=== PATIENT | female | born 1950 | race Caucasian/White ===

== ENCOUNTER 2021-03-25 07:12 | Outpatient (REF) | payer MEDICARE, MEDICAID, SELFPAY ==
--- NOTE | ~2021-03-25 | XR_ITS ---
EXAMINATION: XR shoulder LT min 2V, XR shoulder RT min 2V CLINICAL INFORMATION: Pain COMPARISON: None. TECHNIQUE: 4 views of each shoulder FINDINGS: No acute fracture or dislocation. There are small bilateral acromioclavicular marginal osteophytes, slightly larger on the right tiny marginal osteophytes present along the anatomic neck of the right humeral head. The glenoid is unremarkable. No suspicious osseous lesions. XR/XR shoulder RT min 2V IMPRESSION: No acute findings. Mild bilateral acromioclavicular arthrosis.
--- NOTE | ~2021-03-25 | XR_ITS ---
EXAMINATION: XR shoulder LT min 2V, XR shoulder RT min 2V CLINICAL INFORMATION: Pain COMPARISON: None. TECHNIQUE: 4 views of each shoulder FINDINGS: No acute fracture or dislocation. There are small bilateral acromioclavicular marginal osteophytes, slightly larger on the right tiny marginal osteophytes present along the anatomic neck of the right humeral head. The glenoid is unremarkable. No suspicious osseous lesions. XR/XR shoulder LT min 2V IMPRESSION: No acute findings. Mild bilateral acromioclavicular arthrosis.
[2021-03-25 07:20] LABS: MANUAL DIFF FLAG NO
[2021-03-25 07:44] LABS: Basophils Percent Auto 0.6 % (0-2); Hematocrit 41.1 % (37.0-47.0); Hemoglobin 14.3 g/dl (12.0-16.0); Imm Gran Abs Auto 0.01 X10*3/uL (0.00-0.03); Imm Gran Pct Auto 0.2 % (0.0-0.4); Lymphocytes Absolute Auto 1.2 X10*3/uL (1.2-4.9); Lymphocytes Percent Auto 22.7 % (20-40); Mean Corpuscular HGB Conc 34.8 g/dl (31.0-35.0); Mean Corpuscular Hemoglobin 30.6 pg (27.0-33.0); Mean Platelet Volume 8.2 fL (9.4-12.3); Monocytes Absolute Auto 0.5 X10*3/uL (0.1-1.2); Monocytes Percent Auto 9.9 % (2-11); Neutrophils Absolute Auto 3.6 x10*3/uL (2.0-8.3); Neutrophils Percent Auto 66.6 % (45-73); Platelet Count 398 X10*3/uL (160-400); Red Blood Count 4.67 X10*6/uL (4.20-5.50); Red Cell Distribution Width 12.9 % (11.0-16.0); White Blood Count 5.3 X10*3/uL (4.8-10.8)
[2021-03-25 08:00] LABS: Alanine Aminotransferase 17 U/L (0-31); Albumin Level 4.4 g/dL (3.5-5.0); Alkaline Phosphatase 58 U/L (39-117); Anion Gap 14 (12-20); Aspartate Amino Transferase 24 U/L (5-31); Bilirubin Total 0.3 mg/dL (0.0-1.0); Blood Urea Nitrogen 18 mg/dL (9-16); C Reactive Protein 0.24 mg/dL (< or = 0.50); Calcium 10.5 mg/dL (8.4-10.2); Carbon Dioxide 28 mmol/L (22-29); Chloride 98 mmol/L (96-108); Cholesterol 219 mg/dL; Estimated Glomerular Filt Rate > 60; Glucose Fasting 105 mg/dL (60-99); HDL Cholesterol 73 mg/dL; LDL Cholesterol Calculated 130 mg/dl; Potassium 4.6 mmol/L (3.3-5.1); Sodium 135 mmol/L (135-145); Total Protein 7.5 g/dL (6.5-8.0); Triglycerides 80 mg/dL
[2021-03-25 08:23] LABS: TSH reflex Free T4 1.19 uIU/mL (0.32-4.0); Vitamin D 25-OH Total 49.3 ng/mL (>30)
[2021-03-25 09:18] LABS: Erythrocyte Sedimentation Rate 14 MM/HR (0-20)
[2021-03-25 10:03] LABS: Appearance Urine HAZY; Color Urine YELLOW; Glucose Urine UA NEG (NEG); Leukocyte Esterase Urine NEG (NEG); Nitrite Urine NEG (NEG); Urine Blood NEG (NEG); Urine Ketones NEG (NEG); Urine Protein NEG (NEG-TRACE)
[2021-03-27 05:18] LABS: Folate 17.5 ng/mL (> or = 4.0); Vitamin B12 909 pg/mL (200-900)
== END 2021-03-25 07:13 | disposition home or self-care (01) ==
LOC: HO.LAB 07:12
PROVIDERS: PCP Internal Medicine; Visit Provider Internal Medicine
DX: Z00.00 Encounter for general adult medical examination without abnormal findings (principal); M25.511 Pain in right shoulder; M25.512 Pain in left shoulder; E55.9 Vitamin D deficiency, unspecified; E53.8 Deficiency of other specified B group vitamins; R20.2 Paresthesia of skin; I10 Essential (primary) hypertension; E78.00 Pure hypercholesterolemia, unspecified; M79.10 Myalgia, unspecified site
CPT/HCPCS: 36415; 73030; 80053; 80061; 81003; 82306; 82550; 82607; 82746; 84443; 85025; 85652; 86140

== ENCOUNTER 2021-04-19 07:47 | Outpatient (REF) | payer MEDICARE, MEDICAID, SELFPAY ==
--- NOTE | ~2021-04-19 | MM_ITS ---
EXAMINATION: BONE DENSITOMETRY CLINICAL INDICATION: Age-related osteoporosis without current pathological fracture. COMPARISON: Previous BD dated 05/16/2018 and baseline BD dated 07/25/2009. TECHNIQUE: Using a [employer] DXA System (software version: 13.1) manufactured by [employer], dual-energy x-ray absorptiometry was performed of the lumbar spine and left hip. The images are of good technical quality. Summary results are attached. FINDINGS: AP SPINE L1-L3 (excluding L4): The data of L1-L4 has been changed to exclude the L4 vertebral body, because degenerative changes at this level may cause overestimation of lumbar spine density. Current: BMD 1.092 g/cm2, Z-score 1.6, T-score -0.7, normal, 0.1% decrease from previous, 4.8% increase from baseline (<5% change is not significant). Prior: BMD 1.093 g/cm2. Baseline: BMD 1.042 g/cm2. LEFT FEMUR, NECK: Current: BMD 0.699 g/cm2, Z-score -0.3, T-score -2.4, osteopenia. Prior: BMD 0.723 g/cm2. Baseline: BMD 0.746 g/cm2. LEFT FEMUR, TOTAL: Current: BMD 0.713 g/cm2, Z-score -0.4, T-score -2.3, osteopenia, 3.2% increase from previous, 7.4% decrease from baseline (<5% change is not significant). Prior: BMD 0.691 g/cm2. Baseline: BMD 0.770 g/cm2. IDENTIFIED RISK FACTORS: Low body weight, tobacco use (current smoker), history of fracture (adult). Early menopause, secondary osteoporosis. HISTORY OF FRACTURE: Ribs. MEDICATIONS: Calcium or multivitamin. MM/XR DEXA axial skeleton IMPRESSION: 1. DIAGNOSIS: Osteopenia based on the lowest T-score value of -2.4 in the femoral neck applying World Health Organization criteria. 2. 10-YEAR FRACTURE RISK PREDICTION, FRAX: Major osteoporotic fracture (clinical spine, forearm, hip or shoulder) 20.5%. Hip fracture 8.6%. 3. Treatment Recommendations: NOF guidelines recommend consideration for treatment in postmenopausal women and men age 50 and older presenting with the following: -A hip or vertebral (clinical or morphometric) fracture. -T-score less than or equal to -2.5 at the femoral neck or spine after appropriate evaluation to exclude secondary causes. -Low bone mass at the hip or spine and a 10-year fracture probability by FRAX of greater than or equal to 3% for hip fracture or greater than or equal to 20% for major osteoporotic fracture based on the [place] adapted WHO algorithm. 4. Other Recommendations: All treatment decisions require clinical judgment and consideration of individual patient factors, including patient preferences, comorbidities, previous drug use, risk factors not captured in the FRAX model (e.g. frailty, falls, vitamin D deficiency, increased bone turnover, interval significant decline in bone density) and possible under or overestimation of fracture risk by FRAX. Additional medical evaluation for secondary cause of low bone mineral density may be appropriate. FUTURE SCAN RECOMMENDATION: People with diagnosed cases of osteoporosis or at high risk for fracture should have regular bone mineral density tests. For patients eligible for Medicare, routine testing is allowed once every 2 years. The testing frequency can be increased to one year for patients who have rapidly progressing disease, those who are receiving or discontinuing medical therapy to restore bone mass, or have additional risk factors.
== END 2021-04-19 07:48 | disposition home or self-care (01) ==
LOC: HO.MAMMO 07:47
PROVIDERS: PCP Internal Medicine; Visit Provider Physician Assistant
DX: M81.0 Age-related osteoporosis without current pathological fracture (principal); E28.319 Asymptomatic premature menopause; F17.210 Nicotine dependence, cigarettes, uncomplicated
CPT/HCPCS: 77080

== ENCOUNTER 2021-06-23 07:30 | Outpatient (REF) | payer MEDICARE, MEDICAID, SELFPAY ==
--- NOTE | ~2021-06-23 | MM_ITS ---
EXAMINATION: MM SCREENING DIGITAL BREAST TOMOSYNTHESIS, BILATERAL CLINICAL INFORMATION: Screening. Asymptomatic. The lifetime risk of breast cancer based on the Tyrer-Cuzick Model is 8%. COMPARISON: Mammography: 02/28/2018, 02/19/2017, 02/09/2017, 01/27/2016 TECHNIQUE: Digital breast tomosynthesis is performed in both the craniocaudal and mediolateral oblique views along with computer-aided detection (CAD). Synthesized 2D images are generated from the tomosynthesis. Additional right CC view is provided. FINDINGS: There are scattered areas of fibroglandular density (ACR BI-RADS breast composition Category b). There are no significant masses, abnormal calcifications, or other abnormalities. Parenchymal pattern is similar to prior studies. There is no developing density or architectural abnormality. The axilla and skin contours are unremarkable. No significant changes. MM/MM tomosynthesis screening BI IMPRESSION: No mammographic evidence of malignancy. ASSESSMENT: BI-RADS 1: Negative RECOMMENDATION: Routine annual mammography screening. This patient's information was entered into a reminder system with a target due date for their next mammogram.
== END 2021-06-23 07:31 | disposition home or self-care (01) ==
LOC: HO.MAMMO 07:30
PROVIDERS: PCP Internal Medicine; Visit Provider Physician Assistant
DX: Z12.31 Encounter for screening mammogram for malignant neoplasm of breast (principal)
CPT/HCPCS: 77063; 77067

== ENCOUNTER 2021-10-23 12:23 | Outpatient (REF) | payer MEDICARE, MEDICAID, SELFPAY ==
[2021-10-23 12:48] VITALS: BP 143/85; PULSE 75; RESP 16; TEMP 36.1; O2SAT 100
[2021-10-23 12:49] VITALS: BMI 16.2
== END 2021-10-23 12:24 | disposition home or self-care (01) ==
LOC: HO.MS 12:23
PROVIDERS: PCP Internal Medicine; Visit Provider Ophthalmology
PROC: (CPT 66821; principal; 2021-10-23 14:20)
DX: H26.491 Other secondary cataract, right eye (principal); H40.013 Open angle with borderline findings, low risk, bilateral; Z96.1 Presence of intraocular lens; M81.0 Age-related osteoporosis without current pathological fracture; I10 Essential (primary) hypertension; Z79.899 Other long term (current) drug therapy; F17.210 Nicotine dependence, cigarettes, uncomplicated
CPT/HCPCS: 66821

== ENCOUNTER 2022-01-01 08:56 | Outpatient (REF) | payer MEDICARE, MEDICAID, SELFPAY ==
[2022-01-01 09:25] VITALS: BP 136/82; PULSE 78; RESP 16; TEMP 36.7; O2SAT 98
[2022-01-01 09:49] VITALS: BMI 19.0
== END 2022-01-01 08:57 | disposition home or self-care (01) ==
LOC: HO.MS 08:56
PROVIDERS: PCP Internal Medicine; Visit Provider Ophthalmology
PROC: (CPT 66821; principal; 2022-01-01 12:40)
DX: H26.491 Other secondary cataract, right eye (principal); Z96.1 Presence of intraocular lens; M81.0 Age-related osteoporosis without current pathological fracture; Z79.899 Other long term (current) drug therapy; F17.210 Nicotine dependence, cigarettes, uncomplicated
CPT/HCPCS: 66821

== ENCOUNTER 2022-01-10 11:45 | Outpatient (REF) | payer MEDICARE, MEDICAID, SELFPAY ==
--- NOTE | ~2022-01-10 | XR_ITS ---
EXAMINATION: XR CHEST CLINICAL INFORMATION: Nicotine dependent. COMPARISON: Multiple priors with the last chest x-ray of 05/28/2019. TECHNIQUE: 2 views of the chest were obtained. FINDINGS: The cardiomediastinal silhouette is stable and normal. No abnormal tracheal deviation. The lungs are hyperinflated with increased AP diameter of the chest and flattening of the diaphragms. No focal consolidation, changes of congestion or significant pleural effusions are noted. Osteopenia. Thoracic kyphosis. Moderate to severe compression deformity of L2 is better seen on frontal view and is a stable finding that the last chest x-ray. Chronic rib deformities are redemonstrated. No pneumothorax. Visualized upper abdomen is unremarkable. XR/XR chest 2V IMPRESSION: Hyperinflated lungs reflecting underlying changes of chronic obstructive pulmonary disease. No acute pulmonary process.
[2022-01-10 12:18] LABS: MANUAL DIFF FLAG NO
[2022-01-10 12:40] LABS: Basophils Percent Auto 0.5 % (0-2); Hematocrit 41.2 % (37.0-47.0); Hemoglobin 14.2 g/dl (12.0-16.0); Imm Gran Abs Auto 0.02 X10*3/uL (0.00-0.03); Imm Gran Pct Auto 0.3 % (0.0-0.4); Lymphocytes Absolute Auto 1.5 X10*3/uL (1.2-4.9); Lymphocytes Percent Auto 26.2 % (20-40); Mean Corpuscular HGB Conc 34.5 g/dl (31.0-35.0); Mean Corpuscular Volume 86.9 fL (80.0-98.0); Mean Platelet Volume 8.3 fL (9.4-12.3); Monocytes Absolute Auto 0.5 X10*3/uL (0.1-1.2); Monocytes Percent Auto 9.2 % (2-11); Neutrophils Absolute Auto 3.7 x10*3/uL (2.0-8.3); Neutrophils Percent Auto 63.8 % (45-73); Platelet Count 352 X10*3/uL (160-400); Red Blood Count 4.74 X10*6/uL (4.20-5.50); White Blood Count 5.8 X10*3/uL (4.8-10.8)
[2022-01-10 12:48] LABS: Appearance Urine Clear; Color Urine Yellow; Glucose Urine UA Negative (Negative); Leukocyte Esterase Urine Trace (Negative); Nitrite Urine Negative (Negative); Urine Blood Negative (Negative); Urine Ketones Negative (Negative); Urine Protein Negative (Neg-Trace)
[2022-01-10 12:53] LABS: Bacteria Urine None Seen (None Seen); Hyaline Casts Urine 0-2 /LPF (0-2); RBC Urine 0-2 /HPF (0-2); Squamous Epithelial Cell Urine 0-2 /HPF (0-2); WBC Urine 0-5 /HPF (0-5)
[2022-01-10 13:11] LABS: Alanine Aminotransferase 17 U/L (0-31); Albumin Level 4.3 g/dL (3.5-5.0); Alkaline Phosphatase 47 U/L (39-117); Anion Gap 14 (12-20); Aspartate Amino Transferase 23 U/L (5-31); Bilirubin Total 0.2 mg/dL (0.0-1.0); Blood Urea Nitrogen 21 mg/dL (9-16); C Reactive Protein 0.12 mg/dL (< or = 0.50); Calcium 10.1 mg/dL (8.4-10.2); Carbon Dioxide 27 mmol/L (22-29); Chloride 98 mmol/L (96-108); Estimated Glomerular Filt Rate > 60; Glucose Random 95 mg/dL (60-115); Magnesium 1.8 mg/dL (1.6-2.6); Potassium 4.8 mmol/L (3.3-5.1); Sodium 134 mmol/L (135-145); Total Protein 7.2 g/dL (6.5-8.0)
[2022-01-10 13:21] LABS: Erythrocyte Sedimentation Rate 12 MM/HR (0-20)
[2022-01-10 13:33] LABS: TSH reflex Free T4 0.76 uIU/mL (0.32-4.0); Vitamin D 25-OH Total 56.6 ng/mL (>30)
[2022-01-10 14:23] LABS: Folate > 20.0 ng/mL (> or = 4.0); Vitamin B12 795 pg/mL (200-900)
== END 2022-01-10 11:46 | disposition home or self-care (01) ==
LOC: HO.LAB 11:45
PROVIDERS: PCP Internal Medicine; Visit Provider Internal Medicine
DX: I10 Essential (primary) hypertension (principal); M79.604 Pain in right leg; M79.605 Pain in left leg; R20.2 Paresthesia of skin; E53.8 Deficiency of other specified B group vitamins; E55.9 Vitamin D deficiency, unspecified; J44.9 Chronic obstructive pulmonary disease, unspecified; F17.200 Nicotine dependence, unspecified, uncomplicated
CPT/HCPCS: 36415; 71046; 80053; 81001; 82306; 82607; 82746; 83735; 84443; 85025; 85652; 86140

== ENCOUNTER 2022-05-22 10:13 | Outpatient (REF) | payer MEDICARE, MEDICAID, SELFPAY ==
--- NOTE | ~2022-05-22 | XR_ITS ---
EXAMINATION: XR HAND, LEFT CLINICAL INFORMATION: Left finger pain. COMPARISON: None TECHNIQUE: PA, lateral, and oblique views of the left hand. 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 Adjacent, amorphous, subtle soft tissue calcification. The bones and soft tissues otherwise appear unremarkable. No fracture appreciated. Alignment is anatomic. No erosion identified. XR/XR hand LT min 3V IMPRESSION: Degenerative changes of the first carpal-metacarpal joint.
--- NOTE | ~2022-05-22 | XR_ITS ---
EXAMINATION: XR LUMBOSACRAL SPINE CLINICAL INFORMATION: Compression fracture of fourth lumbar vertebra. COMPARISON: None TECHNIQUE: Three views of the lumbosacral spine. XR/XR lumbar spine 2-3V FINDINGS/IMPRESSION: Suspect decreased bone mineral density. Suspect asymmetric lumbarization of the presumed S1 vertebral body. Mild to moderate compression deformity of L3, new compared with January 2016. Recommend clinical correlation. If further imaging to evaluate for acuity of compression is clinically desired, MRI including STIR sequences may be of use. Mild to moderate compression deformity of L5, unchanged compared with January 2016. Mild to moderate disc degenerative changes of the lumbar spine, worst at L5-S1. Moderate lower lumbar facet degenerative changes at L4-S1. Grade 1 anterolisthesis at L4-L5. Mild lumbar levocurvature. The paraspinal soft tissues appear unremarkable. Aortoiliac calcification.
== END 2022-05-22 10:14 | disposition home or self-care (01) ==
LOC: HO.XRAY 10:13
PROVIDERS: PCP Internal Medicine; Visit Provider Internal Medicine
DX: M54.50 Low back pain, unspecified (principal); S32.040D Wedge compression fracture of fourth lumbar vertebra, subsequent encounter for fracture with routine healing; M79.645 Pain in left finger(s)
CPT/HCPCS: 72100; 73130

== ENCOUNTER 2022-06-29 09:06 | Outpatient (REF) | payer MEDICARE, MEDICAID, SELFPAY ==
--- NOTE | ~2022-06-29 | MM_ITS ---
EXAMINATION: MM SCREENING DIGITAL BREAST TOMOSYNTHESIS, BILATERAL CLINICAL INFORMATION: Screening. Asymptomatic. The lifetime risk of breast cancer based on the Tyrer-Cuzick Model is 7%. COMPARISON: Multiple prior exams, most recent 06/23/2021. TECHNIQUE: Digital breast tomosynthesis is performed in both the craniocaudal and mediolateral oblique views along with computer-aided detection (CAD). Synthesized 2D images are generated from the tomosynthesis. FINDINGS: There are scattered areas of fibroglandular density (ACR BI-RADS breast composition Category b). There are no significant masses, abnormal calcifications, or other abnormalities. No architectural abnormality or developing density or significant change from prior studies. The technologist notes technically challenging exam. Exam tailored to patient body habitus. MM/MM tomosynthesis screening BI IMPRESSION: No mammographic evidence of malignancy. ASSESSMENT: BI-RADS 2: Benign RECOMMENDATION: Routine annual mammography screening. This patient's information was entered into a reminder system with a target due date for their next mammogram.
== END 2022-06-29 09:07 | disposition home or self-care (01) ==
LOC: HO.MAMMO 09:06
PROVIDERS: PCP Internal Medicine; Visit Provider Internal Medicine
DX: Z12.31 Encounter for screening mammogram for malignant neoplasm of breast (principal)
CPT/HCPCS: 77063; 77067

== ENCOUNTER 2023-01-23 08:23 | Outpatient (REF) | payer MEDICARE, MEDICAID, SELFPAY ==
[2023-01-23 08:46] LABS: MANUAL DIFF FLAG NO
[2023-01-23 10:17] LABS: Basophils Percent Auto 0.4 % (0-2); Hematocrit 39.9 % (37.0-47.0); Hemoglobin 13.6 g/dl (12.0-16.0); Lymphocytes Absolute Auto 1.1 X10*3/uL (1.2-4.9); Lymphocytes Percent Auto 25.3 % (20-40); Mean Corpuscular HGB Conc 34.1 g/dl (31.0-35.0); Mean Corpuscular Hemoglobin 30.2 pg (27.0-33.0); Mean Corpuscular Volume 88.5 fL (80.0-98.0); Mean Platelet Volume 8.6 fL (9.4-12.3); Monocytes Absolute Auto 0.4 X10*3/uL (0.1-1.2); Monocytes Percent Auto 9.2 % (2-11); Neutrophils Absolute Auto 2.9 x10*3/uL (2.0-8.3); Neutrophils Percent Auto 65.1 % (45-73); Platelet Count 364 X10*3/uL (160-400); Red Blood Count 4.51 X10*6/uL (4.20-5.50); White Blood Count 4.5 X10*3/uL (4.8-10.8)
[2023-01-23 10:36] LABS: Appearance Urine Clear; Color Urine Yellow; Glucose Urine UA Negative (Negative); Leukocyte Esterase Urine Trace (Negative); Nitrite Urine Negative (Negative); Specific Gravity - Urine 1.015 (1.005-1.025); UMIC TRIGGER UACC YES; Urine Blood Negative (Negative); Urine Ketones Negative (Negative); Urine Protein 30 (1+) mg/dL (Neg-Trace)
[2023-01-23 10:40] LABS: Bacteria Urine None Seen (None Seen); Hyaline Casts Urine 0-2 /LPF (0-2); RBC Urine 0-2 /HPF (0-2); WBC Urine 0-5 /HPF (0-5)
[2023-01-23 11:44] LABS: Alanine Aminotransferase 17 U/L (0-31); Albumin Level 4.1 g/dL (3.5-5.0); Alkaline Phosphatase 50 U/L (39-117); Anion Gap 13 (12-20); Aspartate Amino Transferase 26 U/L (5-31); Bilirubin Total 0.3 mg/dL (0.0-1.0); Blood Urea Nitrogen 21 mg/dL (9-16); Calcium 9.9 mg/dL (8.4-10.2); Carbon Dioxide 27 mmol/L (22-29); Chloride 98 mmol/L (96-108); Cholesterol 206 mg/dL (<200); Estimated Glomerular Filt Rate > 60; Glucose Fasting 92 mg/dL (60-99); HDL Cholesterol 67 mg/dL (>40); LDL Cholesterol Calculated 125 mg/dL (<100); Potassium 4.1 mmol/L (3.3-5.1); Sodium 134 mmol/L (135-145); Total Protein 7.3 g/dL (6.5-8.0); Triglycerides 72 mg/dL (<150)
[2023-01-23 11:50] LABS: TSH reflex Free T4 1.15 uIU/mL (0.32-4.0); Vitamin D 25-OH Total 61.5 ng/mL (>30)
== END 2023-01-23 08:24 | disposition home or self-care (01) ==
LOC: HO.LAB 08:23
PROVIDERS: PCP Internal Medicine; Visit Provider Internal Medicine
DX: I10 Essential (primary) hypertension (principal); E55.9 Vitamin D deficiency, unspecified; E78.00 Pure hypercholesterolemia, unspecified
CPT/HCPCS: 36415; 80053; 80061; 81001; 82306; 84443; 85025

== ENCOUNTER 2023-01-30 08:51 | Outpatient (AMB) | payer MEDICARE, MEDICAID, SELFPAY ==
[2023-01-30 08:52] VITALS: BP 130/80; PULSE 79; O2SAT 96; BMI 16.8
--- NOTE | 2023-01-30 08:52 | A.OFFPC_ITS ---
Vital Signs 01/30/23 08:52 Height 5 ft 8 in Weight 110 lb 4 oz BMI 16.8 BP 130/80 Blood Pressure Location Lt brachial Position Sitting Pulse 79 Pulse Source Pulse Oximeter Pulse Oximetry (%) 96 Oxygen Delivery Method Room Air Intake Visit Reasons: COPD, osteoporosis, hyperlipidemia Bagging Salvager Required: No Accompanied by: Self / Same As Patient Allergies No Known Allergies [No Known Allergies*] Allergy (Verified 01/30/23 09:13) Medication List - Last Reconciled 01/30/23 by Alan Chanel MD albuterol sulfate 90 mcg/actuation 2 puffs PO QID PRN aspirin (Doyle Chewable Low Dose Aspirin) 81 mg PO DAILY calcium carbonate (Calcium) 600 mg PO DAILY lisinopril 5 mg PO DAILY lorazepam 0.5 mg PO BID PRN 30 days naproxen 500 mg PO BID PRN Tobacco use date assessed: 01/30/23 Fall risk assessment: No Falls in past year Last assessed Fall Risk: 01/30/23 Dental Screening Dental Screen Date: 01/30/23 Did you have a dental visit in the last 12 months?: No Did you have a dental problem in the last 6 months where you did not have access to dental care?: No Was dental information given to patient?: No HPI COPD, osteoporosis, hyperlipidemia HPI Details Patient comes in today for her follow up visit States that she feels okay She denies any headaches or dizziness Denies any chest pains, no increased SOB No nausea/vomiting, no abdominal pain No change in bowel habits noted States that her lower back and lower legs (mostly in the ankles and feet) still bother her often and that she wakes up sometimes in the middle of the night due to the pain in her ankles and feet Notes increasing pain in her left wrist lately, especially since the weather started turning cooler Had her follow up labs done last week - to discuss her results [facility] Medical History Smoker Depression Anxiety Osteoporosis Urinary urgency Urinary incontinence Varicose veins of bilateral lower extremities with pain Peripheral polyneuropathy Pure hypercholesterolemia Anemia Compression fracture of L4 vertebra with routine healing Lumbar degenerative disc disease Benign essential hypertension COPD (chronic obstructive pulmonary disease) Surgical History History of cystoscopy History of bilateral cataract extraction Family History Father No problems noted. Mother Lung cancer Sister Down syndrome Maternal Grandfather Lung cancer Maternal Grandmother Lung cancer Social History Housing: House Alcohol intake: former Patient Tobacco Use Status: Current everyday Tobacco user Cigarette Packs Per Day: 1 Cigarettes Per Day: 20 e-Cigarette/Vaping Use: Never Used Second Hand Smoke Exposure: Yes service: No Current occupational status: retired Cognitive needs: No Hearing needs: Yes Vision needs: Yes Questionnaire PHQ-9 Over the last 2 weeks, how often have you been bothered by any of the following problems? 1. Little interest or pleasure in doing things: nearly every day 2. Feeling down, depressed, or hopeless: nearly every day 3. Trouble falling or staying asleep, or sleeping too much: nearly every day 4. Feeling tired or having little energy: nearly every day 5. Poor appetite or overeating: not at all 6. Feeling bad about yourself - or that you are a failure or have let yourself or your family down: not at all 7. Trouble concentrating on things, such as reading the newspaper or watching television: not at all 8. Moving or speaking so slowly that other people could have noticed. Or the opposite - being so fidgety or restless that you have been moving around a lot more than usual: not at all 9. Thoughts that you would be better off or of hurting yourself in some way: not at all Total score: 12 Depression Screening Interpretation: Positive Depression Screening Follow-up: Existing condition and In treatment 60474 - PHQ-9 Billing: Yes Source: Developed by Drs. Rios Hager, Marie Marr, Marcus Moser and colleagues, with an educational felipe from [employer]. Thrive Questionnaire Date Thrive assessed: 09/19/22 I am a: Patient What is your living situation today?: I have a steady place to live Within the past 12 months, did the food you bought not last and you didn't have the money to get more?: Never true Within the past 12 months, did you worry whether your food would run out before you got money to buy more?: Never true Do you have trouble paying for medicines?: No Do you have trouble getting transportation to medical appointments?: No Do you have trouble paying your heating and electricity bill?: No Do you have trouble taking care of your child, family member or friend?: No Do you have trouble with day-to-day activities such as bathing, preparing meals, shopping, managing finances, etc.?: No Are you currently unemployed and looking for a job?: No Are you interested in more education?: No Please select the resources that you would like help with: None Currently or been in a relationship where the following occur: no concerns repor oscar AUDIT C Alcohol Use Questionnaire (AUDIT-C) 1. How often do you have a drink containing alcohol?: Never 3. How often do you have six or more drinks on one occasion?: Never Total Score: 0 Score Reviewed/Action Taken: Yes BROOKE-7 AMB Questionnaire BROOKE-7 Date BROOKE - 7 assessed: 01/30/23 Feeling nervous, anxious, or on edge: 0 = Not at all Not being able to stop or control worryin = Not at all Worrying too much about different things: 0 = Not at all Trouble relaxin = Not at all Being so restless that it is hard to sit still: 0 = Not at all Becoming easily annoyed or irritable: 0 = Not at all Feeling afraid as if something awful might happen: 0 = Not at all Total BROOKE-7 score (0-4 normal; 5-9 mild; 10-14 moderate; 15-21 severe): 0 Source: Developed by Drs. Rios Hager, Marie Marr, Marcus Moser and colleagues, with an educational felipe from [employer]. Review of Systems Const Reports fatigue, Denies fever(s) and Denies headache(s) ENT Denies dysphagia, Denies dizziness, Denies otalgia, Denies headache(s), Denies neck pain, Denies odynophagia and Denies sore throat Card Denies chest pain, Denies palpitations and Reports dyspnea on exertion ( mild, at times) Resp Reports chest congestion (on and off), Reports cough (recurrent, often coughs up thick whitish phlegm), Denies pain with cough, Reports dyspnea on exertion ( mild, at times) and Denies wheezing GI Denies abdominal pain, Denies constipation, Denies dysphagia, Denies heartburn, Denies diarrhea, Denies nausea, Denies odynophagia and Denies vomiting Denies difficulty voiding, Reports nocturia, Denies dysuria and Reports urinary incontinence Musc Reports abnormal gait (due to increasing pain in both legs, ankles and feet), Reports back pain (over the lower back, chronic), Reports arthralgias (both shoulders, on and off; also increasing pain over left wrist), Denies neck pain and Reports radiating pain into limb (frequent radiation of her back pain down into both legs) Skin/Breast Denies rash Neuro Details: increasing pain in both lower extremities Reports abnormal gait (due to increasing pain in both legs, ankles and feet), Denies dizziness, Denies headache(s) and Reports paresthesias Endo Reports fatigue and Denies palpitations Aller/Immun Denies wheezing Physical exam (Primary Care) Vital Signs: Last Vital Signs Pulse 79 01/30/23 08:52 BP 130/80 01/30/23 08:52 Pulse Ox 96 01/30/23 08:52 Oxygen Delivery Method Room Air 01/30/23 08:52 BMI result Body Mass Index 16.8 Tobacco/Smoking Status: Tobacco use Status Tobacco use date assessed 01/30/23 01/30/23 08:53 Patient Tobacco Use Status Current everyday Tobacco 01/30/23 08:53 e-Cigarette/Vaping Use Never Used 01/30/23 08:53 PHQ-9: PHQ-9 Score PHQ-9: Total score 12 01/30/23 08:53 Depression Screening Interpretation: Positive Depression Screening Follow-up: Existing condition and In treatment Thrive Assessment: Date of Thrive Assessment Date Thrive assessed 09/19/22 01/30/23 08:53 Currently or been in a relationship where the following occur: no concerns reported Const General: no acute distress and alert HENMT Ears: TM's normal bilaterally and EAC's normal Throat: Yes posterior oropharynx normal and Yes tonsils normal (no TP congestion noted) Neck Neck: Yes no lymphadenopathy and Yes supple Resp Auscultation: no rales, rhonchi (occasional) throughout, no wheezes and diminished lung sounds (slightly) bilateral Cardio Rate: regular rate Rhythm: regular rhythm Heart sounds: no murmurs GI Palpation (GI): Soft to palpation and nontender Auscultation: normal bowel sounds Back/Spine/Pelvis Thoracic/Lumbar Spine: lumbar spinal tenderness and straight leg raise positive Extrem General: Yes no clubbing, cyanosis or edema Right upper extremity: shoulder/upper arm Details: tenderness and normal ROM Left upper extremity: shoulder/upper arm Details: tenderness and normal ROM, wrist ((+) tenderness) and hand Details: tenderness Location: of the thumb Location: at the MCP joint and swelling Location: of the thumb Location: at the MCP joint Results Reviewed Results Reviewed: Laboratory Tests 01/23/23 01/23/23 01/23/23 08:45 08:45 08:45 WBC 4.5 L Hgb 13.6 Hct 39.9 Plt Count 364 Sodium 134 L Potassium 4.1 Creatinine 0.78 Estimated GFR > 60 Fasting Glucose 92 Calcium 9.9 AST 26 ALT 17 Triglycerides 72 Cholesterol 206 H LDL Cholesterol, Calc 125 H HDL Cholesterol 67 25-OH Vitamin D Total 61.5 TSH 1.15 Ur Specific [place] Urine Protein Urine Glucose (UA) Urine Blood 01/23/23 01/23/23 09:15 09:15 WBC Hgb Hct Plt Count Sodium Potassium Creatinine Estimated GFR Fasting Glucose Calcium AST ALT Triglycerides Cholesterol LDL Cholesterol, Calc HDL Cholesterol 25-OH Vitamin D Total TSH Ur Specific [place] 1.015 Urine Protein 30 (1+) H Urine Glucose (UA) Negative Urine Blood Negative Assessment and Plan Assessment & Plan (1) COPD (chronic obstructive pulmonary disease): Code(s): J44.9 - Chronic obstructive pulmonary disease, unspecified Qualifiers: COPD type: unspecified COPD Qualified Code(s): J44.9 - Chronic obstructive pulmonary disease, unspecified Plan: Stable - PFT? done back in January 2014 showed moderately severe obstructive lung disease but patient denies experiencing any increased shortness of breath although she still has a recurrent productive cough and unfortunately continues to smoke Chest x-rays done back in May 2019 showed (+) lung hyperinflation consistent with COPD with no acute infiltrates Repeat chest x-rays done in January 2022 showed (+) hyperinflated lungs reflecting underlying changes of chronic obstructive pulmonary disease, with no acute pulmonary process noted Patient again declined offer to refer her to pulmonary for follow up/further evaluation Continue Ventolin HFA 2 puffs 4 times a day as needed (2) Lumbar degenerative disc disease: Comment: (+) old wedge compression Fx of L4; new (from 2016) compression deformity at L3 Code(s): M51.36 - Other intervertebral disc degeneration, lumbar region Plan: Reinforced activity and weight lifting restrictions although patient's sister states that patient continues to do a lot of heavy lifting at home when cleaning Lumbar spine x-rays done in 2015 showed (+) facet arthritis and degenerative changes of the lumbar spine Repeat lumbar spine x-rays done in May 2022 revealed (+) mild to moderate compression deformity of L3, which is new compared to her previous x-rays in 2016, and recommend MRI for further evaluation if clinically warranted. The mild to moderate compression deformity of L5 is unchanged from previous and multilevel mild to moderate disc degeneration that is worst at L5-S1 Patient again declined offer to get an MRI of her lumbar spine and referral to specialist for her back at this time Continue Naproxen 500 mg twice a day with food as needed and Tramadol 50 mg 2 to 3 times a day as needed (3) Bilateral lower extremity pain: Code(s): M79.604 - Pain in right leg; M79.605 - Pain in left leg Plan: EMG & NCV done in 2018 revealed moderately severe axonal sensory and motor chronic peripheral neuropathy and bilateral lower lumbar radiculopathy - discussed again that this is most likely the main cause of her lower extremity symptoms She now agrees to try some Rx to help with her pain - will start her on Gabapentin 100 mg Q HS (4) Paresthesia of both feet: Code(s): R20.2 - Paresthesia of skin Plan: Are mostly due to her lower extremity neuropathy Labs done last week all came back normal; B12 level was normal when last checked a few months ago She will be started on Gabapentin to help with her leg pains and it should also help with her paresthesias (5) Primary osteoarthritis, left wrist: Code(s): M19.032 - Primary osteoarthritis, left wrist Plan: X-rays of the left wrist done in May 2022 revealed (+) OA changes over the MCP joint of the left thumb Due to her increasing wrist pain/symptoms, will refer her to orthopedics for consideration for cortisone injections; patient does not wish to undergo any surgical procedures for her wrist (6) Benign essential hypertension: Code(s): I10 - Essential (primary) hypertension Plan: Reinforced low-sodium diet -? goal is systolic BP of at least 130 to 140 mm or less Continue Lisinopril 5 mg QD (7) Pure hypercholesterolemia: Code(s): E78.00 - Pure hypercholesterolemia, unspecified Plan: Results of her labs done last week reviewed and discussed with patient Reinforced low cholesterol diet Will recheck her labs and fasting lipids in 4 months for follow up (8) Anemia: Code(s): D64.9 - Anemia, unspecified Qualifiers: Anemia type: unspecified type Qualified Code(s): D64.9 - Anemia, unspecified Plan: H/H are still corrected/normal on her recent labs done last week Will continue to monitor her CBC regularly (9) Osteoporosis: Code(s): M81.0 - Age-related osteoporosis without current pathological fracture Qualifiers: Osteoporosis type: age-related Presence of current pathological fracture: without current pathological fracture Qualified Code(s): M81.0 - Age- related osteoporosis without current pathological fracture Plan: Repeat BMD done in 04/2021 revealed (+) osteopenia based on the lowest T-score value of -2.4 in the femoral neck - will continue to monitor BMD regularly BMD previously done in 2019 which showed (+) osteoporosis with the lowest T- score value of -2.5 in the total femur Patient has also been on Alendronate since 2012 and this was discontinued after more than 5 years of Tx Fall precautions reinforced; patient is reminded to continue taking her oral Calcium and Vitamin D supplements daily Will need repeat BMD early next year (2023) for follow up (10) Varicose veins of bilateral lower extremities with pain: Code(s): I83.813 - Varicose veins of bilateral lower extremities with pain Plan: Follow with vascular surgery as scheduled -? symptoms have been adequately controlled with support stockings PRN (11) Urinary incontinence: Code(s): R32 - Unspecified urinary incontinence Qualifiers: Urinary Incontinence type: unspecified incontinence Qualified Code(s): R32 - Unspecified urinary incontinence Plan: Patient reportedly wets her bed constantly at night and has increased urinary frequency and some incontinence during the day Suspect that patient has OAB but she also has a history of right hydronephrosis and right UPJ obstruction Was seen by Urology previously and sent for bladder ultrasound and started on a trial of Oxybutynin, which patient states did not help Ultrasound revealed only a small left ureterocele and was otherwise normal Patient does not want to go back to see Dr. Kaplan for Urology follow-up and states that she will call for another referral if she feels that she needs to see Urology again (12) Anxiety: Code(s): F41.9 - Anxiety disorder, unspecified Plan: Continue Doxepin 10 mg once a day at bedtime and Lorazepam 0.5 mg 1 tablet 2 to 3 times a day as needed for increased anxiety Patient states that her anxiety has been adequately controlled (13) Depression: Code(s): F32.9 - Major depressive disorder, single episode, unspecified Qualifiers: Depression Type: major depressive disorder Major depression recurrence: recurrent Active/Remission status: currently active Major depression episode severity: unspecified Qualified Code(s): F33.9 - Major depressive disorder, recurrent, unspecified Plan: Feels that she is doing well and does not need any intervention at this time (14) Smoker: Code(s): F17.200 - Nicotine dependence, unspecified, uncomplicated Plan: Counseled again on smoking cessation -? patient is still not interested in quitting smoking at this time Plan Follow up in 4 months Orders: Orders Lipid Panel 4 Months E78.00 - Pure hypercholesterolemia, unspecified Vitamin B12 and Folate 4 Months E53.8 - Deficiency of other specified B group vitamins Complete Blood Count Auto Diff 4 Months I10 - Essential (primary) hypertension [place]. Panel Fast 4 Months E78.00 - Pure hypercholesterolemia, unspecified Referrals Orthopedics Referral M25.532 - Pain in left wrist Medications: New gabapentin 100 mg PO BEDTIME 30 days 30 caps 3RF Coding Level of Care Code Est Pt Level 4 (68577) Diagnoses Chronic obstructive pulmonary disease, unspecified COPD type J44.9 COPD type: unspecified COPD Lumbar degenerative disc disease M51.36 Bilateral lower extremity pain M79.604; M79.605 Paresthesia of both feet R20.2 Primary osteoarthritis, left wrist M19.032 Benign essential hypertension I10 Pure hypercholesterolemia E78.00 Anemia, unspecified type D64.9 Anemia type: unspecified type Age-related osteoporosis without current pathological fracture M81.0 Osteoporosis type: age-related Presence of current pathological fracture: without current pathological fracture Varicose veins of bilateral lower extremities with pain I83.813 Urinary incontinence, unspecified type R32 Urinary Incontinence type: unspecified incontinence Anxiety F41.9 Episode of recurrent major depressive disorder, unspecified depression episode severity F33.9 Depression Type: major depressive disorder Major depression recurrence: recurrent Active/Remission status: currently active Major depression episode severity: unspecified Smoker F17.200
== END 2023-01-30 09:35 | disposition home or self-care (01) ==
PROVIDERS: Visit Provider Internal Medicine
DX: J44.9 Chronic obstructive pulmonary disease, unspecified (principal); I10 Essential (primary) hypertension; F33.9 Major depressive disorder, recurrent, unspecified; F17.200 Nicotine dependence, unspecified, uncomplicated; F41.9 Anxiety disorder, unspecified; M51.36 Other intervertebral disc degeneration, lumbar region; M79.604 Pain in right leg; M79.605 Pain in left leg; R20.2 Paresthesia of skin; M19.032 Primary osteoarthritis, left wrist; E78.00 Pure hypercholesterolemia, unspecified
CPT/HCPCS: 99214

== ENCOUNTER 2023-02-20 08:50 | Outpatient (AMB) | payer MEDICARE, MEDICAID, SELFPAY ==
[2023-02-20 08:52] VITALS: BMI 16.7
--- NOTE | 2023-02-20 08:52 | A.OFFVIS_ITS ---
Intake Vital Signs 02/20/23 08:52 Height 5 ft 8 in Weight 110 lb BMI 16.7 Intake Visit Reasons: [employer]-Pain in left wrist Intake Note: Trevon is a 72 year old right hand dominant female who presents today with her sister as a new patient with complaints of left wrist pain. Patient reports that she has had onling left wrist pain for quite some time now. She reports that there is numbness/tingling as well as lock Accompanied by: Sister Allergies No Known Allergies [No Known Allergies*] Allergy (Verified 01/30/23 09:13) Medication List - Last Reconciled 02/20/23 by Aileen Bingham MD albuterol sulfate 90 mcg/actuation 2 puffs PO QID PRN aspirin (Doyle Chewable Low Dose Aspirin) 81 mg PO DAILY calcium carbonate (Calcium) 600 mg PO DAILY gabapentin 100 mg PO BEDTIME 30 days lisinopril 5 mg PO DAILY lorazepam 0.5 mg PO BID PRN 30 days naproxen 500 mg PO BID PRN HPI HPI Comments History of Present Illness Details Left wrist pain, pointing to base of thumb, at least over a year. Denies inciting injuries. The bone has gotten bigger over time. No numbness. Drops things. Treatment done so far: tried wrist splint but bothers her more PFSH Medical History (Updated 02/20/23 @ 09:25 by Aileen Bingham MD) De Quervain's tenosynovitis, left Arthritis of hand, left, degenerative Hearing impairment Smoker Depression Anxiety Osteoporosis Urinary urgency Urinary incontinence Varicose veins of bilateral lower extremities with pain Peripheral polyneuropathy Pure hypercholesterolemia Anemia Compression fracture of L4 vertebra with routine healing Lumbar degenerative disc disease Benign essential hypertension COPD (chronic obstructive pulmonary disease) Surgical History History of cystoscopy History of bilateral cataract extraction Family History Father No problems noted. Mother Lung cancer Sister Down syndrome Maternal Grandfather Lung cancer Maternal Grandmother Lung cancer Social History Housing: House Alcohol intake: former Patient Tobacco Use Status: Current everyday Tobacco user Cigarette Packs Per Day: 1 Cigarettes Per Day: 20 e-Cigarette/Vaping Use: Never Used Second Hand Smoke Exposure: Yes service: No Current occupational status: retired Cognitive needs: No Hearing needs: Yes Vision needs: Yes Review of Systems Const All systems reviewed & are unremarkable except as noted in HPI and below Physical Exam Vital Signs: BMI result Body Mass Index 16.7 Constitutional: Patient appears to be in no acute distress, well nourished and well developed. MSK: Inspection reveals appropriate head and neck positioning. No intrinsic hand weakness noted. No atrophy noted. Victor Hugo test mildly positive left side. Carpal compression test negative. Tinel sign negative. Enlargement of left CMC joint. No signs of warmth, swelling or redness. Only mildly painful when moved but not tender to touch. Mild crepitus noted. Strength is 5/5 in all muscle groups tested. No increased tone noted. Neurological: Neurologic examination of the upper and lower extremities was nonfocal with intact sensation, muscle stretch reflexes and without focal motor deficits . Pfeiffer?s negative bilaterally. Gait is non-antalgic without loss of balance. Office Procedures Joint Injection/Drain Joint Injection/Drain Details: Left base of thumb injection Risks and benefits discussed. Consent obtained. Patient rested left hand in mid position on table with thumb up and mild traction applied down on thumb. Identified base of thumb. Area prepped in sterile manner. 25 gauge 1/2 inch needle inserted perpendicular into gap, negative bloody return, injecting solution with 10mg Kenalog and 0.75 ml 2% Lidocaine. Patient tolerated procedure well without complications. Post injection instructions given. Patient not to do any lifting for 24 hours. Primary Site: left thumb Injected: 10 mg of, Kenalog and other (0.75 mL 2% lidocaine) Procedure: The patient tolerated the procedure well Coding - Small Joint Procedure code (CPT) selection complete Results Reviewed Results Reviewed: I independently reviewed the results of the following: Imaging reviewed with patient. Arthritis seen on left 1st IP, MCP and CMC joints. XR HAND, LEFT CLINICAL INFORMATION: Left finger pain. COMPARISON: None TECHNIQUE: PA, lateral, and oblique views of the left hand. 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 Adjacent, amorphous, subtle soft tissue calcification. The bones and soft tissues otherwise appear unremarkable. No fracture appreciated. Alignment is anatomic. No erosion identified. XR/XR hand LT min 3V IMPRESSION: Degenerative changes of the first carpal-metacarpal joint. I reviewed records from the following: Per PCP notes: (+) old wedge compression Fx of L4; new (from 2016) compression deformity at L3 Lumbar spine x-rays done in 2016 showed (+) facet arthritis and degenerative changes of the lumbar spine Repeat lumbar spine x-rays done in May 2022 revealed (+) mild to moderate compression deformity of L3, which is new compared to her previous x-rays in 2016, and recommend MRI for further evaluation if clinically warranted. The mild to moderate compression deformity of L5 is unchanged from previous and multilevel mild to moderate disc degeneration that is worst at L5-S1 Patient again declined offer to get an MRI of her lumbar spine and referral to specialist for her back at this time X-rays of the left wrist done in May 2022 revealed (+) OA changes over the MCP joint of the left thumb Due to her increasing wrist pain/symptoms, will refer her to orthopedics for consideration for cortisone injections; patient does not wish to undergo any surgical procedures for her wrist Assessment & Plan Assessment & Plan (1) Arthritis of hand, left, degenerative: Code(s): M19.042 - Primary osteoarthritis, left hand Qualifiers: Osteoarthritis type: primary Qualified Code(s): M19.042 - Primary osteoarthritis, left hand (2) De Quervain's tenosynovitis, left: Code(s): M65.4 - Radial styloid tenosynovitis [de Quervain] Plan Pain on base of left thumb. We will provide her with a thumb spica splint which is more appropriate. She is interested in getting a steroid injection today. Assessment and plan discussed with patient, and patient was agreeable. All questions were answered thoroughly. Aileen Bingham MD, INÉS Board Certified, [place] Board [employer] and Rehabilitation (ABPMR) Board Certified, [place] Board of Electrodiagnostic Medicine (ABEM) Orders: Orders AMB Joint Injection/Aspiration Today M19.042 - Primary osteoarthritis, left hand, M65.4 - Radial styloid tenosynovitis [de Quervain] Coding Level of Care Code New Pt Level 4 (88344) Diagnoses Primary osteoarthritis of left hand M19.042 Osteoarthritis type: primary De Quervain's tenosynovitis, left M65.4 CPT Codes Coding - - Small joint: - Small Joint ([id number])
== END 2023-02-20 09:22 | disposition home or self-care (01) ==
PROVIDERS: PCP Internal Medicine; Visit Provider Physical Medicine & Rehabilitation
DX: M18.12 Unilateral primary osteoarthritis of first carpometacarpal joint, left hand (principal); M65.4 Radial styloid tenosynovitis [de Quervain]
CPT/HCPCS: 20600; 99204

== ENCOUNTER → 2023-02-20 08:50 | Outpatient (BNVA) | payer MEDICARE, MEDICAID, SELFPAY | PROVIDERS: PCP Internal Medicine; Visit Provider Physical Medicine & Rehabilitation | DX: M19.042 Primary osteoarthritis, left hand (principal); M65.4 Radial styloid tenosynovitis [de Quervain] | CPT/HCPCS: 20600; J3301 ==

== ENCOUNTER 2023-03-13 09:09 | Outpatient (AMB) | payer MEDICARE, MEDICAID, SELFPAY ==
--- NOTE | 2023-03-13 09:19 | AM.OFFVISNUR ---
Intake Intake Visit Reasons: Flu Shot Allergies No Known Allergies [No Known Allergies*] Allergy (Verified 01/30/23 09:13) Office Procedures Flu Questionnaire Does the patient have a severe egg allergy?: No Does the patient have severe life threatening allergies?: No Does the patient have a fever or illness today?: No Has the patient ever had Guillain-[place] Syndrome?: No Has the patient ever had any past reaction to a flu shot?: No Immunizations flu vacc [id number] 6mos up(PF) 60 mcg(15 mcgx4)/0.5 mL IM syringe Performing Provider: Alan Chanel MD [facility] Administered by: Addie Frias RN on 03/13/23 09:19 Dose Route Admin Location Dispensed Lot Number Expiration Date [employer] 0.5 mL IM Left Deltoid 0.5 mL [id number] 11/03/23 07632-527-06 [employer] VIS Given Date VIS Provided VIS Publication Date 03/13/23 Single Vaccine 20 Eligibility Eligibility Date Funding Source Not [facility] Eligible 03/13/23 Private Coding Assessment & Plan Assessment & Plan Orders: Orders Influenza [id number] Immunization Today Z23 - Encounter for immunization
== END 2023-03-13 09:20 | disposition home or self-care (01) ==
PROVIDERS: PCP Internal Medicine; Visit Provider Internal Medicine
DX: Z23 Encounter for immunization (principal)
CPT/HCPCS: 90471; 90686

== ENCOUNTER 2023-05-23 08:55 | Outpatient (AMB) | payer MEDICARE, MEDICAID, SELFPAY ==
--- NOTE | 2023-05-23 09:01 | A.OFFVIS_ITS ---
Intake Vital Signs 05/23/23 09:02 Height 5 ft 8 in Weight 110 lb BMI 16.7 Intake Visit Reasons: OV- Pain in left wrist Intake Note: Trevon 72 yr old female presents today for her left basal joint injection from 02/20/23. States injection helped and lasted until recently along with her brace. States she would like to repeat injection today. Allergies No Known Allergies [No Known Allergies*] Allergy (Verified 05/23/23 09:02) Medication List - Last Reconciled 05/23/23 by Aileen Bingham MD albuterol sulfate 90 mcg/actuation 2 puffs PO QID PRN aspirin (Doyle Chewable Low Dose Aspirin) 81 mg PO DAILY calcium carbonate (Calcium) 600 mg PO DAILY gabapentin 100 mg PO BEDTIME 30 days lisinopril 5 mg PO DAILY lorazepam 0.5 mg PO BID PRN 30 days naproxen 500 mg PO BID PRN HPI HPI Comments History of Present Illness Details Initially seen for left wrist pain, pointing to base of thumb, at least over a year. Denies inciting injuries. The bone has gotten bigger over time. No numbness. Drops things. Injection done to left base of thumb done, 02/20/23 on that visit. At least 90% better. There are times when it is sore and she has to wear the brace. However the brace can also be uncomfortable. Her utilization specialist confirms history, that the patient does not complain much of pain since injection. [facility] Medical History (Updated 02/20/23 @ 09:25 by Aileen Bingham MD) De Quervain's tenosynovitis, left Arthritis of hand, left, degenerative Hearing impairment Smoker Depression Anxiety Osteoporosis Urinary urgency Urinary incontinence Varicose veins of bilateral lower extremities with pain Peripheral polyneuropathy Pure hypercholesterolemia Anemia Compression fracture of L4 vertebra with routine healing Lumbar degenerative disc disease Benign essential hypertension COPD (chronic obstructive pulmonary disease) Surgical History History of cystoscopy History of bilateral cataract extraction Family History Father No problems noted. Mother Lung cancer Sister Down syndrome Maternal Grandfather Lung cancer Maternal Grandmother Lung cancer Social History (Reviewed 05/23/23 @ 09:02 by RUPESH Peterson Housing: House Alcohol intake: former Patient Tobacco Use Status: Current everyday Tobacco user Cigarette Packs Per Day: 1 Cigarettes Per Day: 20 e-Cigarette/Vaping Use: Never Used Second Hand Smoke Exposure: Yes service: No Current occupational status: retired Cognitive needs: No Hearing needs: Yes Vision needs: Yes Physical Exam Vital Signs: BMI result Body Mass Index 16.7 Constitutional: Patient appears to be in no acute distress, well nourished and well developed. MSK: Inspection reveals appropriate head and neck positioning. No intrinsic hand weakness noted. No atrophy noted. Victor Hugo test negative. Carpal compression test negative. Tinel sign negative. Enlargement of left CMC joint. No signs of warmth, swelling or redness. Range of motion/abduction of thumb improved. No tenderness. Strength is 5/5 in all muscle groups tested. No increased tone noted. Neurological: Neurologic examination of the upper and lower extremities was nonfocal with intact sensation, muscle stretch reflexes and without focal motor deficits . Pfeiffer?s negative bilaterally. Gait is non-antalgic without loss of balance. Results Reviewed Results Reviewed: I independently reviewed the results of the following: Imaging reviewed with patient. Arthritis seen on left 1st IP, MCP and CMC joints. XR HAND, LEFT CLINICAL INFORMATION: Left finger pain. COMPARISON: None TECHNIQUE: PA, lateral, and oblique views of the left hand. 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 Adjacent, amorphous, subtle soft tissue calcification. The bones and soft tissues otherwise appear unremarkable. No fracture appreciated. Alignment is anatomic. No erosion identified. XR/XR hand LT min 3V IMPRESSION: Degenerative changes of the first carpal-metacarpal joint. Assessment & Plan Assessment & Plan (1) Arthritis of hand, left, degenerative: Code(s): M19.042 - Primary osteoarthritis, left hand Qualifiers: Osteoarthritis type: primary Qualified Code(s): M19.042 - Primary osteoarthritis, left hand Plan Overall improved since injection back in February, about 3 months ago. Pain has not yet recurred to the level prior to injection. There are no signs of inflammation. No signs of de Quervain tenosynovitis. Would recommend holding off on further injections unless pain level increases. Also discussed possibility of meeting our hand surgeon to discuss surgery, although we all agreed that avoiding surgery maybe in her best interest. Assessment and plan discussed with patient, and patient was agreeable. All questions were answered thoroughly. Aileen Bingham MD, INÉS Board Certified, [place] [employer] and Rehabilitation (ABPMR) Board Certified, [place] [employer] Electrodiagnostic [employer] (ABEM) Coding Level of Care Code Est Pt Level 3 (33002) Diagnoses Primary osteoarthritis of left hand M19.042 Osteoarthritis type: primary
[2023-05-23 09:02] VITALS: BMI 16.7
== END 2023-05-23 09:17 | disposition home or self-care (01) ==
PROVIDERS: PCP Internal Medicine; Visit Provider Physical Medicine & Rehabilitation
DX: M19.042 Primary osteoarthritis, left hand (principal)
CPT/HCPCS: 99213

== ENCOUNTER → 2023-05-23 08:55 | Outpatient (BNVA) | payer MEDICARE, MEDICAID, SELFPAY | PROVIDERS: PCP Internal Medicine; Visit Provider Physical Medicine & Rehabilitation | DX: M19.042 Primary osteoarthritis, left hand (principal) | CPT/HCPCS: 99212 ==

== ENCOUNTER 2023-05-30 06:56 | Outpatient (REF) | payer MEDICARE, MEDICAID, SELFPAY ==
[2023-05-30 07:17] LABS: MANUAL DIFF FLAG NO
[2023-05-30 08:02] LABS: Basophils Percent Auto 0.6 % (0-2); Hematocrit 40.7 % (37.0-47.0); Hemoglobin 13.9 g/dl (12.0-16.0); Imm Gran Abs Auto 0.01 X10*3/uL (0.00-0.03); Imm Gran Pct Auto 0.2 % (0.0-0.4); Lymphocytes Absolute Auto 1.3 X10*3/uL (1.2-4.9); Lymphocytes Percent Auto 27.4 % (20-40); Mean Corpuscular HGB Conc 34.2 g/dl (31.0-35.0); Mean Corpuscular Hemoglobin 30.1 pg (27.0-33.0); Mean Corpuscular Volume 88.1 fL (80.0-98.0); Mean Platelet Volume 8.7 fL (9.4-12.3); Monocytes Absolute Auto 0.5 X10*3/uL (0.1-1.2); Monocytes Percent Auto 9.6 % (2-11); Neutrophils Absolute Auto 2.9 x10*3/uL (2.0-8.3); Neutrophils Percent Auto 62.2 % (45-73); Platelet Count 361 X10*3/uL (160-400); Red Blood Count 4.62 X10*6/uL (4.20-5.50); Red Cell Distribution Width 13.4 % (11.0-16.0); White Blood Count 4.7 X10*3/uL (4.8-10.8)
[2023-05-30 08:26] LABS: Alanine Aminotransferase 17 U/L (0-31); Albumin Level 4.2 g/dL (3.5-5.0); Alkaline Phosphatase 49 U/L (39-117); Anion Gap 14 (12-20); Aspartate Amino Transferase 26 U/L (5-31); Bilirubin Total 0.4 mg/dL (0.0-1.0); Blood Urea Nitrogen 20 mg/dL (9-16); Calcium 10.1 mg/dL (8.4-10.2); Carbon Dioxide 28 mmol/L (22-29); Chloride 97 mmol/L (96-108); Cholesterol 220 mg/dL (<200); Estimated Glomerular Filt Rate 58; Glucose Fasting 93 mg/dL (60-99); HDL Cholesterol 72 mg/dL (>40); LDL Cholesterol Calculated 132 mg/dL (<100); Potassium 4.6 mmol/L (3.3-5.1); Sodium 134 mmol/L (135-145); Total Protein 7.5 g/dL (6.5-8.0); Triglycerides 80 mg/dL (<150)
[2023-05-30 08:58] LABS: Folate 12.2 ng/mL (> or = 4.0); Vitamin B12 902 pg/mL (200-900)
== END 2023-05-30 06:57 | disposition home or self-care (01) ==
LOC: HO.LAB 06:56
PROVIDERS: PCP Internal Medicine; Visit Provider Internal Medicine
DX: E78.00 Pure hypercholesterolemia, unspecified (principal); E53.8 Deficiency of other specified B group vitamins; I10 Essential (primary) hypertension
CPT/HCPCS: 36415; 80053; 80061; 82607; 82746; 85025

== ENCOUNTER 2023-07-05 09:03 | Outpatient (REF) | payer MEDICARE, MEDICAID, SELFPAY | END 2023-07-05 09:04 | disposition home or self-care (01) | LOC: HO.MAMMO 09:03 | PROVIDERS: PCP Internal Medicine; Visit Provider Internal Medicine | DX: Z12.31 Encounter for screening mammogram for malignant neoplasm of breast (principal) | CPT/HCPCS: 77063; 77067 ==

== ENCOUNTER → 2023-07-05 09:30 | Outpatient (BNV) | payer MEDICARE, MEDICAID, SELFPAY | PROVIDERS: PCP Internal Medicine; Visit Provider Radiology Diagnostic Radiology | DX: Z12.31 Encounter for screening mammogram for malignant neoplasm of breast (principal) | CPT/HCPCS: 77063; 77067 ==

== ENCOUNTER 2023-08-06 09:49 | Outpatient (AMB) | payer MEDICARE, MEDICAID, SELFPAY ==
--- NOTE | 2023-08-06 09:58 | MHC.PC.OV ---
Vital Signs 08/06/23 10:00 Height 5 ft 8 in Weight 109 lb 4 oz BMI 16.6 BP 110/70 Blood Pressure Location Lt brachial Position Sitting Pulse 78 Pulse Source Pulse Oximeter Pulse Oximetry (%) 98 Oxygen Delivery Method Room Air Intake Visit Reasons: 4 Months F/U-COPD, lumbar DDD, OA, hyperlipidemia Intake Note: Patient is here to follow up on HTN, COPD, LDDD, Hyperlipidemia. Rn Infusion Required: No Client Account Specialist: Present Accompanied by: Sister Allergies No Known Allergies [No Known Allergies*] Allergy (Verified 08/06/23 10:41) Medication List - Last Reconciled 08/06/23 by Alan Chanel MD albuterol sulfate 90 mcg/actuation 2 puffs PO QID PRN aspirin (Doyle Chewable Low Dose Aspirin) 81 mg PO DAILY calcium carbonate (Calcium) 600 mg PO DAILY gabapentin 100 mg PO BEDTIME 30 days lisinopril 5 mg PO DAILY lorazepam 0.5 mg PO BID PRN 30 days naproxen 500 mg PO BID PRN Tobacco use date assessed: 08/06/23 Fall risk assessment: No Falls in past year Last assessed Fall Risk: 08/06/23 Dental Screening Dental Screen Date: 08/06/23 Did you have a dental visit in the last 12 months?: No Did you have a dental problem in the last 6 months where you did not have access to dental care?: No Was dental information given to patient?: No HPI 4 Months F/U-COPD, lumbar DDD, OA, hyperlipidemia HPI Details Patient comes in today for her follow up visit States that she continues to be very unsteady on her feet - notes that her feet feel numb all the time and her legs and feet hurt as well, especially at night Adds that she is also experiencing recurrent but transient dizziness especially when she gets up too quickly or when she changes position abruptly She denies any headaches Denies any chest pains but reports that she has noticed recurrent SOB and increasing TAYLOR lately and would now like to get something to help her quit smoking No nausea/vomiting, no abdominal pain No change in bowel habits noted She had her follow up labs done back in May 2023 - to discuss her results FOR[facility]LY [facility] Medical History De Quervain's tenosynovitis, left Arthritis of hand, left, degenerative Hearing impairment Smoker Depression Anxiety Osteoporosis Urinary urgency Urinary incontinence Varicose veins of bilateral lower extremities with pain Peripheral polyneuropathy Pure hypercholesterolemia Anemia Compression fracture of L4 vertebra with routine healing Lumbar degenerative disc disease Benign essential hypertension COPD (chronic obstructive pulmonary disease) Surgical History History of cystoscopy History of bilateral cataract extraction Family History Father No problems noted. Mother Lung cancer Sister Down syndrome Maternal Grandfather Lung cancer Maternal Grandmother Lung cancer Social History Housing: House Alcohol intake: former Patient Tobacco Use Status: Current everyday Tobacco user Tobacco use type: Cigarette Cigarette Packs Per Day: 2 Cigarettes Per Day: 40 e-Cigarette/Vaping Use: Never Used Second Hand Smoke Exposure: Yes service: No Current occupational status: retired Cognitive needs: No Hearing needs: Yes Vision needs: Yes (Glasses) Questionnaire PHQ-9 Over the last 2 weeks, how often have you been bothered by any of the following problems? 1. Little interest or pleasure in doing things: not at all 2. Feeling down, depressed, or hopeless: nearly every day 3. Trouble falling or staying asleep, or sleeping too much: not at all 4. Feeling tired or having little energy: several days 5. Poor appetite or overeating: not at all 6. Feeling bad about yourself - or that you are a failure or have let yourself or your family down: not at all 7. Trouble concentrating on things, such as reading the newspaper or watching television: not at all 8. Moving or speaking so slowly that other people could have noticed. Or the opposite - being so fidgety or restless that you have been moving around a lot more than usual: not at all 9. Thoughts that you would be better off or of hurting yourself in some way: not at all Total score: 4 Depression Screening Interpretation: Positive Depression Screening Follow-up: Existing condition and In treatment Depression Screening Done: Yes [id number] - PHQ-9 Billing: Yes Source: Developed by Drs. Rios Hager, Marie B.Marcus Li and colleagues, with an educational felipe from [employer]. Thrive Questionnaire Date Thrive assessed: 08/06/23 I am a: Patient What is your living situation today?: I have a steady place to live Within the past 12 months, did the food you bought not last and you didn't have the money to get more?: Never true Within the past 12 months, did you worry whether your food would run out before you got money to buy more?: Never true Do you have trouble paying for medicines?: No Do you have trouble getting transportation to medical appointments?: No Do you have trouble paying your heating and electricity bill?: No Do you have trouble taking care of your child, family member or friend?: No Do you have trouble with day-to-day activities such as bathing, preparing meals, shopping, managing finances, etc.?: No Are you currently unemployed and looking for a job?: No Are you interested in more education?: No Currently or been in a relationship where the following occur: no concerns reported THRIVE Score: 0 AUDIT C Alcohol Use Questionnaire (AUDIT-C) 1. How often do you have a drink containing alcohol?: Never 3. How often do you have six or more drinks on one occasion?: Never Total Score: 0 Score Reviewed/Action Taken: Yes BROOKE-7 AMB Questionnaire BROOKE-7 Date BROOKE - 7 assessed: 08/06/23 Feeling nervous, anxious, or on edge: 0 = Not at all Not being able to stop or control worryin = Not at all Worrying too much about different things: 0 = Not at all Trouble relaxin = Not at all Being so restless that it is hard to sit still: 0 = Not at all Becoming easily annoyed or irritable: 0 = Not at all Feeling afraid as if something awful might happen: 0 = Not at all Total BROOKE-7 score (0-4 normal; 5-9 mild; 10-14 moderate; 15-21 severe): 0 Source: Developed by Drs. Rios Hager, Marcus Argueta and colleagues, with an educational felipe from [employer]. Review of Systems Const Reports fatigue, Denies fever(s) and Denies headache(s) ENT Denies dysphagia, Reports dizziness (on and off, mostly with change in position), Denies otalgia, Denies headache(s), Denies neck pain, Denies odynophagia and Denies sore throat Card Denies chest pain, Denies palpitations and Reports dyspnea on exertion (increasing) Resp Reports chest congestion (on and off), Reports cough (recurrent, often coughs up thick whitish phlegm), Denies pain with cough, Reports dyspnea on exertion (increasing) and Denies wheezing GI Denies abdominal pain, Denies constipation, Denies dysphagia, Denies heartburn, Denies diarrhea, Denies nausea, Denies odynophagia and Denies vomiting Denies difficulty voiding, Reports nocturia, Denies dysuria and Reports urinary incontinence Musc Reports abnormal gait (unsteady; due to increasing pain in both legs, ankles and feet), Reports back pain (over the lower back, chronic), Reports arthralgias (both shoulders, on and off; also increasing pain over left wrist), Denies neck pain and Reports radiating pain into limb (frequent radiation of her back pain down into both legs) Skin/Breast Denies rash Neuro Details: increasing pain in both lower extremities Reports abnormal gait (unsteady; due to increasing pain in both legs, ankles and feet), Reports dizziness (on and off, mostly with change in position), Denies headache(s) and Reports paresthesias Endo Reports fatigue and Denies palpitations Aller/Immun Denies wheezing Physical exam (Primary Care) Vital Signs: Last Vital Signs Pulse 78 08/06/23 10:00 BP 110/70 08/06/23 10:00 Pulse Ox 98 08/06/23 10:00 Oxygen Delivery Method Room Air 08/06/23 10:00 BMI result Body Mass Index 16.6 Tobacco/Smoking Status: Tobacco use Status Tobacco use date assessed 08/06/23 08/06/23 10:07 Patient Tobacco Use Status Current everyday Tobacco 08/06/23 10:07 Tobacco use type Cigarette 08/06/23 10:07 e-Cigarette/Vaping Use Never Used 08/06/23 10:07 PHQ-9: PHQ-9 Score PHQ-9: Total score 4 08/06/23 10:52 Depression Screening Interpretation: Positive Depression Screening Follow-up: Existing condition and In treatment Thrive Assessment: Date of Thrive Assessment Date Thrive assessed 08/06/23 08/06/23 10:07 Currently or been in a relationship where the following occur: no concerns reported Const General: no acute distress and alert HENMT Ears: TM's normal bilaterally and EAC's normal Throat: Yes posterior oropharynx normal and Yes tonsils normal (no TP congestion noted) Neck Neck: Yes no lymphadenopathy and Yes supple Thyroid: Thyroid normal Resp Auscultation: no rales, rhonchi (occasional) throughout, no wheezes and diminished lung sounds (slightly) bilateral Cardio Rate: regular rate Rhythm: regular rhythm Heart sounds: no murmurs GI Palpation (GI): Soft to palpation and nontender Auscultation: normal bowel sounds General: Yes no CVA tenderness Back/Spine/Pelvis Back: no CVA tenderness Thoracic/Lumbar Spine: lumbar spinal tenderness and straight leg raise positive Skin Rashes: no rashes Extrem General: Yes no clubbing, cyanosis or edema Right upper extremity: shoulder/upper arm Details: tenderness and normal ROM Left upper extremity: shoulder/upper arm Details: tenderness and normal ROM, wrist ((+) tenderness) and hand Details: tenderness Location: of the thumb Location: at the MCP joint and swelling Location: of the thumb Location: at the MCP joint Results Reviewed Results Reviewed: Laboratory Tests 05/30/23 07:15 WBC 4.7 L Hgb 13.9 Hct 40.7 Plt Count 361 Sodium 134 L Potassium 4.6 Creatinine 0.94 Estimated GFR 58 Fasting Glucose 93 Calcium 10.1 AST 26 ALT 17 Triglycerides 80 Cholesterol 220 H LDL Cholesterol, Calc 132 H HDL Cholesterol 72 Vitamin B12 902 H Folate 12.2 Assessment and Plan Assessment & Plan (1) COPD (chronic obstructive pulmonary disease): Code(s): J44.9 - Chronic obstructive pulmonary disease, unspecified Qualifiers: COPD type: unspecified COPD Qualified Code(s): J44.9 - Chronic obstructive pulmonary disease, unspecified Plan: Stable - PFTs? done back in January 2014 showed moderately severe obstructive lung disease but patient denies experiencing any increased shortness of breath although she still has a recurrent productive cough and (unfortunately) continues to smoke Chest x-rays done back in May 2019 showed (+) lung hyperinflation consistent with COPD, with no acute infiltrates Repeat chest x-rays done in January 2022 showed again (+) hyperinflated lungs reflecting underlying changes of chronic obstructive pulmonary disease, with no acute pulmonary process noted Patient has declined offer to refer her to pulmonary for follow up/further evaluation Continue Ventolin HFA 2 puffs 4 times a day as needed (2) Lumbar degenerative disc disease: Comment: (+) old wedge compression Fx of L4; new (from 2016) compression deformity at L3 Code(s): M51.36 - Other intervertebral disc degeneration, lumbar region Plan: Reinforced activity and weight lifting restrictions - patient's sister states that patient continues to do a lot of heavy lifting at home often when she is cleaning Lumbar spine x-rays done in 2016 showed (+) facet arthritis and degenerative changes of the lumbar spine Repeat lumbar spine x-rays done in May 2022 revealed (+) mild to moderate compression deformity of L3, which is new compared to her previous x-rays in 2016, and recommend MRI for further evaluation if clinically warranted. The mild to moderate compression deformity of L5 is unchanged from previous and multilevel mild to moderate disc degeneration that is worst at L5-S1 Patient has declined offer for her to get an MRI of her lumbar spine and a referral to a back specialist Continue Naproxen 500 mg twice a day with food as needed and Tramadol 50 mg 2 to 3 times a day as needed (3) Bilateral lower extremity pain: Code(s): M79.604 - Pain in right leg; M79.605 - Pain in left leg Plan: EMG & NCV done in 2018 revealed moderately severe axonal sensory and motor chronic peripheral neuropathy and bilateral lower lumbar radiculopathy - she is advised again that this is most likely the main cause of her lower extremity symptoms and of her unsteady gait Continue Gabapentin 100 mg Q HS (4) Paresthesia of both feet: Code(s): R20.2 - Paresthesia of skin Plan: These are again mostly due to her lower extremity neuropathy Her follow up labs done back in May 2023 mostly came back normal except for her mildly elevated cholesterol level; her B12 level was normal on her recent labs Continue Gabapentin 100 mg Q HS (5) Primary osteoarthritis, left wrist: Code(s): M19.032 - Primary osteoarthritis, left wrist Plan: X-rays of the left wrist done in May 2022 revealed (+) OA changes over the MCP joint of the left thumb She was previously referred to orthopedics for consideration for cortisone injections, which she states helped temporarily Patient still does not wish to undergo any surgical procedures for her wrist (6) Benign essential hypertension: Code(s): I10 - Essential (primary) hypertension Plan: Reinforced low-sodium diet -? goal is systolic BP of at least 130 to 140 mm or less Continue Lisinopril 5 mg QD (7) Pure hypercholesterolemia: Code(s): E78.00 - Pure hypercholesterolemia, unspecified Plan: Results of her labs done back in May 2023 reviewed and discussed with patient - is advised that her cholesterol levels remain borderline elevated Reinforced low cholesterol diet Will recheck her labs and fasting lipids in 6 months for follow up (8) Anemia: Code(s): D64.9 - Anemia, unspecified Qualifiers: Anemia type: unspecified type Qualified Code(s): D64.9 - Anemia, unspecified Plan: H/H are still corrected/normal on her recent labs done back in May 2023 Will continue to monitor her CBC regularly (9) Osteoporosis: Code(s): M81.0 - Age-related osteoporosis without current pathological fracture Qualifiers: Osteoporosis type: age-related Presence of current pathological fracture: without current pathological fracture Qualified Code(s): M81.0 - Age-related osteoporosis without current pathological fracture Plan: Repeat BMD done in 04/2021 revealed (+) osteopenia based on the lowest T-score value of -2.4 in the femoral neck - will continue to monitor BMD regularly BMD previously done in 2018 which showed (+) osteoporosis with the lowest T-score value of -2.5 in the total femur Patient has also been on Alendronate since 2012 and this was discontinued after more than 5 years of Tx Fall precautions reinforced; patient is reminded to continue taking her oral Calcium and Vitamin D supplements daily Will need repeat BMD later this year (2023) for follow up (10) Varicose veins of bilateral lower extremities with pain: Code(s): I83.813 - Varicose veins of bilateral lower extremities with pain Plan: Follow with vascular surgery as scheduled -? symptoms have been adequately controlled with support stockings PRN (11) Urinary incontinence: Code(s): R32 - Unspecified urinary incontinence Qualifiers: Urinary Incontinence type: unspecified incontinence Qualified Code(s): R32 - Unspecified urinary incontinence Plan: Patient reportedly wets her bed constantly at night and has increased urinary frequency and some incontinence during the day Suspect that patient has OAB but she also has a history of right hydronephrosis and right UPJ obstruction Was seen by Urology previously and sent for bladder ultrasound and started on a trial of Oxybutynin, which patient states did not help Ultrasound revealed only a small left ureterocele and was otherwise normal Patient does not want to go back to see Dr. Kaplan for Urology follow-up and states that she will call for another referral if she feels that she needs to see Urology again (12) Anxiety: Code(s): F41.9 - Anxiety disorder, unspecified Plan: Continue Doxepin 10 mg once a day at bedtime and Lorazepam 0.5 mg 1 tablet 2 to 3 times a day as needed for increased anxiety Patient states that her anxiety has been adequately controlled (13) Depression: Code(s): F32.9 - Major depressive disorder, single episode, unspecified Qualifiers: Depression Type: major depressive disorder Major depression recurrence: recurrent Active/Remission status: currently active Major depression episode severity: unspecified Qualified Code(s): F33.9 - Major depressive disorder, recurrent, unspecified Plan: Feels that she is doing well and does not need any intervention at this time (14) Smoker: Code(s): F17.200 - Nicotine dependence, unspecified, uncomplicated Plan: Counseled again on smoking cessation -? she is now interested in trying to quit smoking as she has been experiencing increasing SOB and TAYLOR Per request, will start her on Nicotine patches to help her quit smoking Plan Follow up in 6 months Orders: Orders Complete Blood Count Auto Diff 6 Months D64.9 - Anemia, unspecified Comprehensive [place]. Panel Fast 6 Months E78.00 - Pure hypercholesterolemia, unspecified TSH reflex Free T4 6 Months E78.00 - Pure hypercholesterolemia, unspecified UA CC w/rflx Micro + Cult 6 Months R30.0 - Dysuria Vitamin D 25-OH Total 6 Months E55.9 - Vitamin D deficiency, unspecified Lipid Panel 6 Months E78.00 - Pure hypercholesterolemia, unspecified Vitamin B12 and Folate 6 Months E53.8 - Deficiency of other specified B group vitamins Medications: New nicotine 1 patch transdermal DAILY 7 days 7 ea 0RF F17.200 - Nicotine dependence, unspecified, uncomplicated nicotine 1 patch transdermal Q24H 28 days 28 ea 5RF F17.200 - Nicotine dependence, unspecified, uncomplicated nicotine 1 patch transdermal DAILY 7 days 7 ea 0RF F17.200 - Nicotine dependence, unspecified, uncomplicated Coding Level of Care Code Est Pt Level 4 (67947) Diagnoses Chronic obstructive pulmonary disease, unspecified COPD type J44.9 COPD type: unspecified COPD Lumbar degenerative disc disease M51.36 Bilateral lower extremity pain M79.604; M79.605 Paresthesia of both feet R20.2 Primary osteoarthritis, left wrist M19.032 Benign essential hypertension I10 Pure hypercholesterolemia E78.00 Anemia, unspecified type D64.9 Anemia type: unspecified type Age-related osteoporosis without current pathological fracture M81.0 Osteoporosis type: age-related Presence of current pathological fracture: without current pathological fracture Varicose veins of bilateral lower extremities with pain I83.813 Urinary incontinence, unspecified type R32 Urinary Incontinence type: unspecified incontinence Anxiety F41.9 Episode of recurrent major depressive disorder, unspecified depression episode severity F33.9 Depression Type: major depressive disorder Major depression recurrence: recurrent Active/Remission status: currently active Major depression episode severity: unspecified Smoker F17.200
[2023-08-06 10:00] VITALS: BP 110/70; PULSE 78; O2SAT 98; BMI 16.6
== END 2023-08-06 10:57 | disposition home or self-care (01) ==
PROVIDERS: PCP Internal Medicine; Visit Provider Internal Medicine
DX: J44.9 Chronic obstructive pulmonary disease, unspecified (principal); F33.9 Major depressive disorder, recurrent, unspecified; M51.36 Other intervertebral disc degeneration, lumbar region; M79.604 Pain in right leg; M79.605 Pain in left leg; R20.2 Paresthesia of skin; M19.032 Primary osteoarthritis, left wrist; I10 Essential (primary) hypertension; E78.00 Pure hypercholesterolemia, unspecified; D64.9 Anemia, unspecified; M81.0 Age-related osteoporosis without current pathological fracture; I83.813 Varicose veins of bilateral lower extremities with pain
CPT/HCPCS: 99214

== ENCOUNTER 2023-11-25 11:22 | Emergency (ER) | payer MEDICARE, MEDICAID, SELFPAY ==
--- NOTE | ~2023-11-25 | XR_ITS ---
EXAMINATION: LEFT ANKLE, LEFT FOOT CLINICAL INFORMATION: Worsening foot and ankle. COMPARISON: Left foot and ankle 10/14/2012 TECHNIQUE: 3 views left ankle, 3 views left foot FINDINGS: The ankle mortise is stable. No ankle fractures or dislocations. No significant soft tissue swelling. Some mild degenerative changes at the interphalangeal joints in the foot along with the first MTP joint. There is a tiny 2 x 1 mm osseous density just dorsal to the navicular on the dorsum of the foot. Comparison is made to the 10/14/2012 study, appearances are identical. No acute fractures or dislocations in the foot. XR/XR ankle LT min 3V IMPRESSION: No acute finding. Mild degenerative changes as described above.
--- NOTE | ~2023-11-25 | XR_ITS ---
EXAMINATION: LEFT ANKLE, LEFT FOOT CLINICAL INFORMATION: Worsening foot and ankle. COMPARISON: Left foot and ankle 10/14/2012 TECHNIQUE: 3 views left ankle, 3 views left foot FINDINGS: The ankle mortise is stable. No ankle fractures or dislocations. No significant soft tissue swelling. Some mild degenerative changes at the interphalangeal joints in the foot along with the first MTP joint. There is a tiny 2 x 1 mm osseous density just dorsal to the navicular on the dorsum of the foot. Comparison is made to the 10/14/2012 study, appearances are identical. No acute fractures or dislocations in the foot. XR/XR foot LT min 3V IMPRESSION: No acute finding. Mild degenerative changes as described above.
[2023-11-25 11:23] VITALS: BP 165/83; PULSE 98; RESP 17; TEMP 36.9; O2SAT 99; BMI 17.8
--- NOTE | 2023-11-25 11:25 | ED_ITS ---
HPI - Extremity Injury (Lower) General Chief Complaint: Extremity Injury, Lower Stated Complaint: L foot inj Time Seen by Provider: 11/25/23 11:43 Source: patient Mode of arrival: ambulatory Limitations: no limitations History of Present Illness ED Provider: peng OLIVAS Narrative: Patient is a 73-year-old female presenting to the ED with complaint of two days of atraumatic left foot pain. Noticed the pain on Saturday while gardening. Has not taken any over the counter medication for her pain. Unable to ambulate due to pain. Denies numbness or tingling. Onset (ago): day(s) Related Data Home Medications ?Medication ?Instructions ?Recorded ?Confirmed aspirin 81 mg chewable tablet 81 mg PO DAILY 02/22/20 08/06/23 (Doyle Chewable Low Dose Aspirin) calcium carbonate (Calcium 600) 600 mg PO DAILY 01/10/22 08/06/23 Previous Rx's ?Medication ?Instructions ?Recorded lorazepam 0.5 mg tablet 0.5 mg PO BID PRN anxiety 30 days 11/14/22 #60 tabs gabapentin 100 mg capsule 100 mg PO BEDTIME 30 days #30 caps 01/30/23 albuterol sulfate 90 mcg/actuation 2 puff PO QID PRN for wheezing #18 06/23/23 aerosol inhaler ea nicotine 14 mg/24 hr daily 1 patch transdermal DAILY 7 days 08/06/23 transdermal patch #7 ea nicotine 21 mg/24 hr daily 1 patch transdermal DAILY 7 days 08/06/23 transdermal patch #7 ea nicotine 7 mg/24 hr daily 1 patch transdermal Q24H 28 days 08/06/23 transdermal patch #28 ea lisinopril 5 mg tablet 5 mg PO DAILY #90 tabs 08/09/23 naproxen 500 mg tablet 500 mg PO BID PRN for pain #180 08/26/23 tabs Allergies Allergy/AdvReac Type Severity Reaction Status Date / Time No Known Allergies Allergy Verified 11/25/23 11:27 [No Known Allergies*] Review of Systems Review of Systems: As per HPI Yes all other systems are reviewed and are negative Constitutional: Constitutional: Reports as per HPI [facility] Past Medical History Medical History De Quervain's tenosynovitis, left Arthritis of hand, left, degenerative Hearing impairment Smoker Depression Anxiety Osteoporosis Urinary urgency Urinary incontinence Varicose veins of bilateral lower extremities with pain Peripheral polyneuropathy Pure hypercholesterolemia Anemia Compression fracture of L4 vertebra with routine healing Lumbar degenerative disc disease Benign essential hypertension COPD (chronic obstructive pulmonary disease) Surgical History History of cystoscopy History of bilateral cataract extraction Family History Family History Father No problems noted. Mother Lung cancer Sister Down syndrome Maternal Grandfather Lung cancer Maternal Grandmother Lung cancer Social History Social History Housing: House Alcohol intake: former Patient Tobacco Use Status: Current everyday Tobacco user Tobacco use type: Cigarette Cigarette Packs Per Day: 2 Cigarettes Per Day: 40 e-Cigarette/Vaping Use: Never Used Second Hand Smoke Exposure: Yes Advance Directives: No Advance Directives Information Provided: No Do you have a plan to hurt others: No Plan service: No Current occupational status: retired Cognitive needs: No Hearing needs: Yes Vision needs: Yes (Glasses) Physical Exam Vital Signs: Vital Signs: Last Vital Signs Temp 98.5 F 11/25/23 11:23 Pulse 98 11/25/23 11:23 Resp 17 11/25/23 11:23 BP 165/83 H 11/25/23 11:23 Pulse Ox 99 11/25/23 11:23 O2 Del Method Room Air 11/25/23 11:23 BMI result Body Mass Index 17.8 Vital signs have been reviewed and appear to be correct. Blood pressure elevated. Heart rate normal. Respiratory rate normal. Temperature normal. Oxygen saturation normal. Const: General: cooperative, healthy appearing and no acute distress Orientation/consciousness: oriented to person, oriented to place, oriented to time and patient oriented x3 Limitations: no limitations HEENT: Head: Yes normocephalic and Yes atraumatic Ears: external ears normal General nose exam: Normal external nose present Face and sinus: Yes face symmetric Mouth: oropharynx normal and moist mucous membranes Throat: Yes uvula midline Eyes: Pupils: Equal, round and reactive pupils present Neck: Neck: Yes normal visual inspection and Yes supple Resp: Effort & Inspection: normal respiratory effort and able to speak in complete sentences Auscultation: clear to auscultation bilaterally Cardio: Rate: regular rate Rhythm: regular rhythm Heart sounds: S1 normal heart sound present and S2 normal heart sound present GI: Palpation (GI): Soft to palpation and nontender Auscultation: normoactive bowel sounds : General: Yes no CVA tenderness Back/Spine/Pelvis: Back: no CVA tenderness Skin: General skin exam: elasticity normal and turgor normal Neuro: General: oriented to person, oriented to place, oriented to time, patient oriented x3, moves all extremities, no focal motor deficits and CN's II- XI intact bilaterally Cranial nerves: Yes Equal, round and reactive pupils present Cognition (Neuro): normal cognition Extrem: General: Yes full ROM, Yes no pedal edema and Yes no calf tenderness Left lower extremity: foot Details: normal capillary refill, normal to inspection, tenderness Location: of the plantar foot (instep, heel), toes with normal ROM, no edema and vascular exam Details: dorsalis pedis pulse present and posterior tibial pulse present; no unusual warmth and no ecchymosis Psych: Mental Status: mental status grossly normal Affect: normal affect Thought process: Normal thought process present Course Course Course Narrative: This is an RME: Additional HPI, ROS, PE not included below will be deferred to primary provider. RME assessment and note performed by: Vandana Dangelo PA-C This is a [id number]-female, with a hx of hearing impairment, COPD, HTN, DDD, HLD, who presents to the ER with complaints of left foot pain x 2 days. She denies any recent trauma or injury. She states that she was walking in her garden and felt a sharp pain in her left foot. History of stress fracture in her foot in the past in symptoms feel similar. She has been unable to bear weight on her foot since. Plan: X-rays left ankle and foot Medical Decision Making Medical Decision Making MDM Narrative: Patient is a 73-year-old female presenting to the ED with complaint of two days of atraumatic left foot pain. On exam patient is awake, A+Ox3, VS WNL, afebrile, normal neurological exam without focal deficits, physical exam findings as above. Given reported symptoms and physical exam findings, initial differential includes stress fracture, plantar fasciitis, strain. X-rays notable for no evidence of fracture. My interpretation is in agreement with the radiologist's interpretation. Patient updated on results and all questions answered. Advised patient to begin using Tylenol every 6 hours, applying ice intermittently, follow up with PCP. Return precautions discussed at bedside. Patient verbalized understanding of and agreement with plan. Differential Diagnosis Differential Diagnoses: The differential diagnosis associated with the presentation includes As per MDM Independent Interpretation I performed an independent interpretation of an: Plain X-Ray Interpretation: No evidence of fracture to left foot or ankle Radiology Impression Discussion of test interpretation with radiology: I have reviewed the radiologist's reading. Radiologist Impression: XR/XR foot LT min 3V IMPRESSION: No acute finding. Mild degenerative changes as described above. XR/XR ankle LT min 3V IMPRESSION: No acute finding. Mild degenerative changes as described above. External Record Review External record reviewed: Inpatient record, Office record and Outpatient record Discharge Plan Discharge Clinical Impression: Plantar fasciitis of left foot Patient Disposition: Home, Self-Care Instructions: Plantar Fasciitis (ED), R.I.C.E. Treatment (ED), Plantar Fasciitis Exercises (ED) Additional Instructions: You were evaluated in the emergency department today for left foot pain. Your x-rays did not show evidence of fractures. Your pain is likely due to plantar fasciitis. You should apply ice to the area for 10-15 minutes at a time. We recommend putting a water bottle into the freezer and rolling your foot over it. You should also take 650mg of Tylenol every 6 hours as needed for pain. Follow up with your primary care provider this week. Return to the emergency department if you develop worsening pain, change of color in your foot, new weakness, numbness or tingling. Prescriptions: No Action lorazepam 0.5 mg tablet 0.5 mg PO BID PRN (Reason: anxiety) 30 Days Qty: 60 1RF albuterol sulfate 90 mcg/actuation HFA aerosol inhaler 2 puff PO QID PRN (Reason: for wheezing) Qty: 18 2RF lisinopril 5 mg tablet 5 mg PO DAILY Qty: 90 1RF naproxen 500 mg tablet 500 mg PO BID PRN (Reason: for pain) Qty: 180 1RF aspirin [Doyle Chewable Aspirin] 81 mg tablet,chewable 81 mg PO DAILY calcium carbonate [Calcium 600] 600 mg calcium (1,500 mg) tablet 600 mg PO DAILY gabapentin 100 mg capsule 100 mg PO BEDTIME 30 Days Qty: 30 3RF nicotine 21 mg/24 hr patch 24 hour 1 patch transdermal DAILY 7 Days Qty: 7 0RF nicotine 14 mg/24 hr patch 24 hour 1 patch transdermal DAILY 7 Days Qty: 7 0RF nicotine 7 mg/24 hr patch 24 hour 1 patch transdermal Q24H 28 Days Qty: 28 5RF Print Language: Bengali
[2023-11-25 14:24] VITALS: BP 165/83; PULSE 98; RESP 17; TEMP 36.9; O2SAT 99
== END 2023-11-25 14:24 | disposition home or self-care (01) ==
PROVIDERS: Emergency Provider Emergency Medicine; PCP Internal Medicine
DX: M72.2 Plantar fascial fibromatosis (principal); M79.672 Pain in left foot; F17.210 Nicotine dependence, cigarettes, uncomplicated
CPT/HCPCS: 73610; 73630; 99282; 99283

== ENCOUNTER 2023-12-05 12:36 | Outpatient (AMB) | payer MEDICARE, MEDICAID, SELFPAY ==
[2023-12-05 13:00] VITALS: BP 144/74; PULSE 80; O2SAT 97; BMI 17.5
--- NOTE | 2023-12-05 13:00 | A.OFFPC_ITS ---
Vital Signs 12/05/23 13:00 Height 5 ft 8 in Weight 115 lb BMI 17.5 BP 144/74 H Blood Pressure Location Lt brachial Position Sitting Pulse 80 Pulse Source Pulse Oximeter Pulse Oximetry (%) 97 Oxygen Delivery Method Room Air [place] [facility] [place] Plantar fasciitis Sap Bi Architect Required: No Accompanied by: Self / Same As Patient Allergies No Known Allergies [No Known Allergies*] Allergy (Verified 12/05/23 18:30) Medication List - Last Reconciled 12/05/23 by Alan Chanel MD albuterol sulfate 90 mcg/actuation 2 puffs PO QID PRN aspirin (Doyle Chewable Low Dose Aspirin) 81 mg PO DAILY calcium carbonate (Calcium 600) 600 mg PO DAILY gabapentin 100 mg PO BEDTIME 30 days lisinopril 5 mg PO DAILY lorazepam 0.5 mg PO BID PRN 30 days naproxen 500 mg PO BID PRN nicotine 1 patch transdermal DAILY 7 days nicotine 1 patch transdermal Q24H 28 days nicotine 1 patch transdermal DAILY 7 days Tobacco use date assessed: 08/06/23 Fall risk assessment: No Falls in past year Last assessed Fall Risk: 12/05/23 Dental Screening Dental Screen Date: 08/06/23 [place] [facility] [place] Plantar fasciitis HPI Details Patient comes in today for her [facility] follow up visit States that she went to the ER early last week for increasing pain over her left heel for a couple of days She denies any recent injury or trauma to her foot and states that her left foot / heel pain is worse with weight-bearing and standing and walking X-rays of the foot done at the ER early last week came out showing the presence of mild degenerative changes with no evidence for fracture to the left foot or ankle Patient was reassured and sent home with a diagnosis of plantar fasciitis and she was instructed on conservative treatment and to follow up with her PCP Patient states that her foot /heel still hurts often over the past couple of weeks and this is significantly limiting her mobility No other acute complaints or symptoms are noted at present [facility] Medical History De Quervain's tenosynovitis, left Arthritis of hand, left, degenerative Hearing impairment Smoker Depression Anxiety Osteoporosis Urinary urgency Urinary incontinence Varicose veins of bilateral lower extremities with pain Peripheral polyneuropathy Pure hypercholesterolemia Anemia Compression fracture of L4 vertebra with routine healing Lumbar degenerative disc disease Benign essential hypertension COPD (chronic obstructive pulmonary disease) Surgical History History of cystoscopy History of bilateral cataract extraction Family History Father No problems noted. Mother Lung cancer Sister Down syndrome Maternal Grandfather Lung cancer Maternal Grandmother Lung cancer Social History Housing: House Alcohol intake: former Patient Tobacco Use Status: Current everyday Tobacco user Tobacco use type: Cigarette Cigarette Packs Per Day: 2 Cigarettes Per Day: 40 e-Cigarette/Vaping Use: Never Used Second Hand Smoke Exposure: Yes service: No Current occupational status: retired Cognitive needs: No Hearing needs: Yes Vision needs: Yes (Glasses) Questionnaire Thrive Questionnaire Date Thrive assessed: 08/06/23 BROOKE-7 AMB Questionnaire BROOKE-7 Date BROOKE - 7 assessed: 08/06/23 Source: Developed by Drs. Rios Hager, Marie Marr, Marcus Moser and colleagues, with an educational felipe from [employer] Review of Systems Const Reports fatigue, Denies fever(s) and Denies headache(s) ENT Denies dysphagia, Reports dizziness (on and off, mostly with change in position), Denies otalgia, Denies headache(s), Denies neck pain, Denies odynophagia and Denies sore throat Card Denies chest pain, Denies palpitations and Reports dyspnea on exertion (increasing) Resp Reports chest congestion (on and off), Reports cough (recurrent, often coughs up thick whitish phlegm), Denies pain with cough, Reports dyspnea on exertion (increasing) and Denies wheezing GI Denies abdominal pain, Denies constipation, Denies dysphagia, Denies heartburn, Denies diarrhea, Denies nausea, Denies odynophagia and Denies vomiting Denies difficulty voiding, Reports nocturia, Denies dysuria and Reports urinary incontinence Musc Details: (+) increasing pain over the left heel Reports abnormal gait (unsteady; due to increasing pain in both legs, ankles and feet), Reports back pain (over the lower back, chronic), Reports arthralgias (both shoulders, on and off; also increasing pain over left wrist), Denies neck pain and Reports radiating pain into limb (frequent radiation of her back pain down into both legs) Skin/Breast Denies rash Neuro Details: increasing pain in both lower extremities Reports abnormal gait (unsteady; due to increasing pain in both legs, ankles and feet), Reports dizziness (on and off, mostly with change in position), Denies headache(s) and Reports paresthesias Endo Reports fatigue and Denies palpitations Aller/Immun Denies wheezing Physical exam (Primary Care) Vital Signs: Last Vital Signs Pulse 80 12/05/23 13:00 BP 144/74 H 12/05/23 13:00 Pulse Ox 97 12/05/23 13:00 Oxygen Delivery Method Room Air 12/05/23 13:00 BMI result Body Mass Index 17.5 Tobacco/Smoking Status: Tobacco use Status Tobacco use date assessed 08/06/23 12/05/23 13:02 Patient Tobacco Use Status Current everyday Tobacco 12/05/23 13:02 Tobacco use type Cigarette 12/05/23 13:02 e-Cigarette/Vaping Use Never Used 12/05/23 13:02 Thrive Assessment: Date of Thrive Assessment Date Thrive assessed 08/06/23 12/05/23 13:02 Const General: no acute distress and alert HENMT Throat: Yes posterior oropharynx normal and Yes tonsils normal (no TP congestion noted) Neck Neck: Yes no lymphadenopathy and Yes supple Thyroid: Thyroid normal Resp Auscultation: no rales, rhonchi (occasional) throughout, no wheezes and diminished lung sounds (slightly) bilateral Cardio Rate: regular rate Rhythm: regular rhythm Heart sounds: no murmurs GI Palpation (GI): Soft to palpation and nontender Auscultation: normal bowel sounds General: Yes no CVA tenderness Back/Spine/Pelvis Back: no CVA tenderness Thoracic/Lumbar Spine: lumbar spinal tenderness and straight leg raise positive Skin Rashes: no rashes Extrem General: Yes no clubbing, cyanosis or edema Right upper extremity: shoulder/upper arm Details: tenderness and normal ROM Left upper extremity: shoulder/upper arm Details: tenderness and normal ROM, wrist ((+) tenderness) and hand Details: tenderness Location: of the thumb Location: at the MCP joint and swelling Location: of the thumb Location: at the MCP joint Left lower extremity: foot Details: tenderness Location: of the calcaneus Assessment and Plan Assessment & Plan (1) Plantar fasciitis of left foot: Code(s): M72.2 - Plantar fascial fibromatosis Plan: Will refer patient to podiatry for further evaluation and management Plan Follow up as scheduled in February 2024 Orders: Referrals Podiatry Referral M72.2 - Plantar fascial fibromatosis Coding Level of Care Code Est Pt Level 3 (17989) Diagnoses Plantar fasciitis of left foot M72.2
== END 2023-12-05 13:17 | disposition home or self-care (01) ==
PROVIDERS: PCP Internal Medicine; Visit Provider Internal Medicine
DX: M72.2 Plantar fascial fibromatosis (principal)
CPT/HCPCS: 99213

== ENCOUNTER 2024-02-05 08:46 | Outpatient (AMB) | payer MEDICARE, MEDICAID, SELFPAY ==
[2024-02-05 08:50] VITALS: BP 126/84; PULSE 75; O2SAT 96; BMI 18.1
--- NOTE | 2024-02-05 08:50 | A.OFFPC_ITS ---
Vital Signs 02/05/24 08:50 Height 5 ft 8 in Weight 119 lb BMI 18.1 BP 126/84 Blood Pressure Location Lt brachial Position Sitting Pulse 75 Pulse Source Pulse Oximeter Pulse Oximetry (%) 96 Oxygen Delivery Method Room Air Intake Visit Reasons: 6mth f/u Roundsman Required: No Accompanied by: Self / Same As Patient Allergies No Known Allergies [No Known Allergies*] Allergy (Verified 02/05/24 09:05) Medication List - Last Reconciled 02/05/24 by Alan Chanel MD albuterol sulfate 90 mcg/actuation 2 puffs PO QID PRN aspirin (Doyle Chewable Low Dose Aspirin) 81 mg PO DAILY calcium carbonate (Calcium 600) 600 mg PO DAILY gabapentin 100 mg PO BEDTIME 30 days lisinopril 5 mg PO DAILY lorazepam 0.5 mg PO BID PRN 30 days naproxen 500 mg PO BID PRN nicotine 1 patch transdermal DAILY 7 days nicotine 1 patch transdermal Q24H 28 days Tobacco use date assessed: 02/05/24 Fall risk assessment: No Falls in past year Last assessed Fall Risk: 02/05/24 Dental Screening Dental Screen Date: 02/05/24 Did you have a dental visit in the last 12 months?: No Did you have a dental problem in the last 6 months where you did not have access to dental care?: No Was dental information given to patient?: No HPI 6mth f/u HPI Details Patient comes in today for her follow up visit States that both of her feet feel numb all the time and her legs and feet hurt often, especially at night She is also still experiencing recurrent dizziness, especially when she gets up or moves around too quickly, and both of these continue to make her feel very unsteady when she is moving around She still has frequent pain in her left foot and has not been able to see podiatry yet - states that she was scheduled to see Dr. Hickman but he recently and she now needs a referral to another license distributor She denies any headaches Denies any chest pains; still has TAYLOR (chronic) but this has improved somewhat since she (finally) quit smoking about 5 months ago No nausea/vomiting, no abdominal pain No change in bowel habits noted Adds that she has been feeling depressed more than before over the past few months and she often breaks down crying, especially at night She was not able to get her follow up labs done prior to her visit today [facility] Medical History De Quervain's tenosynovitis, left Arthritis of hand, left, degenerative Hearing impairment Smoker Depression Anxiety Osteoporosis Urinary urgency Urinary incontinence Varicose veins of bilateral lower extremities with pain Peripheral polyneuropathy Pure hypercholesterolemia Anemia Compression fracture of L4 vertebra with routine healing Lumbar degenerative disc disease Benign essential hypertension COPD (chronic obstructive pulmonary disease) Surgical History History of cystoscopy History of bilateral cataract extraction Family History Father No problems noted. Mother Lung cancer Sister Down syndrome Maternal Grandfather Lung cancer Maternal Grandmother Lung cancer Social History (Updated 02/05/24 @ 09:52 by Alan Chanel MD) Housing: House Alcohol intake: former Patient Tobacco Use Status: Former Tobacco user Tobacco use type: Cigarette Cigarette Packs Per Day: 2 Cigarettes Per Day: 40 e-Cigarette/Vaping Use: Never Used Second Hand Smoke Exposure: Yes service: No Current occupational status: retired Cognitive needs: No Hearing needs: Yes Vision needs: Yes (Glasses) Questionnaire PHQ-9 Over the last 2 weeks, how often have you been bothered by any of the following problems? 1. Little interest or pleasure in doing things: not at all 2. Feeling down, depressed, or hopeless: nearly every day 3. Trouble falling or staying asleep, or sleeping too much: not at all 4. Feeling tired or having little energy: several days 5. Poor appetite or overeating: not at all 6. Feeling bad about yourself - or that you are a failure or have let yourself or your family down: not at all 7. Trouble concentrating on things, such as reading the newspaper or watching television: not at all 8. Moving or speaking so slowly that other people could have noticed. Or the opposite - being so fidgety or restless that you have been moving around a lot m ore than usual: not at all 9. Thoughts that you would be better off or of hurting yourself in some way: not at all Total score: 4 Depression Screening Interpretation: Positive Depression Screening Follow-up: Existing condition and In treatment Depression Screening Done: Yes 93365 - PHQ-9 Billing: Yes Source: Developed by Drs. Rios Hager, Marie Marr, Marcus Moser and colleagues, with an educational felipe from [employer]. Thrive Questionnaire Date Thrive assessed: 02/05/24 I am a: Patient What is your living situation today?: I have a steady place to live Within the past 12 months, did the food you bought not last and you didn't have the money to get more?: Never true Within the past 12 months, did you worry whether your food would run out before you got money to buy more?: Never true Do you have trouble paying for medicines?: No Do you have trouble getting transportation to medical appointments?: No Do you have trouble paying your heating and electricity bill?: No Do you have trouble taking care of your child, family member or friend?: No Do you have trouble with day-to-day activities such as bathing, preparing meals, shopping, managing finances, etc.?: No Are you currently unemployed and looking for a job?: No Are you interested in more education?: No Please select the resources that you would like help with: None Currently or been in a relationship where the following occur: No concerns reported THRIVE Score: 0 AUDIT C Alcohol Use Questionnaire (AUDIT-C) 1. How often do you have a drink containing alcohol?: Never 3. How often do you have six or more drinks on one occasion?: Never Total Score: 0 Score Reviewed/Action Taken: Yes BROOKE-7 AMB Questionnaire BROOKE-7 Date BROOKE - 7 assessed: 02/05/24 Feeling nervous, anxious, or on edge: 0 = Not at all Not being able to stop or control worryin = Not at all Worrying too much about different things: 0 = Not at all Trouble relaxin = Not at all Being so restless that it is hard to sit still: 0 = Not at all Becoming easily annoyed or irritable: 0 = Not at all Feeling afraid as if something awful might happen: 0 = Not at all Total BROOKE-7 score (0-4 normal; 5-9 mild; 10-14 moderate; 15-21 severe): 0 Source: Developed by Drs. Rios Hager, Marie Marr, Marcus Moser and colleagues, with an educational felipe from [employer]. Review of Systems Const Denies chills, Reports fatigue, Denies fever(s) and Denies headache(s) ENT Denies dysphagia, Reports dizziness (on and off, mostly with change in position), Denies otalgia, Denies headache(s), Denies neck pain, Denies odynophagia and Denies sore throat Card Denies chest pain, Denies palpitations and Reports dyspnea on exertion (increasing) Resp Reports chest congestion (on and off but this has improved since she quit smoking months ago), Reports cough (on and off, coughs up thick whitish phlegm often but this has improved), Denies pain with cough, Reports dyspnea on exertion (increasing) and Denies wheezing GI Denies abdominal pain, Denies constipation, Denies dysphagia, Denies heartburn, Denies diarrhea, Denies nausea, Denies odynophagia and Denies vomiting Denies difficulty voiding, Reports nocturia, Denies dysuria and Reports urinary incontinence Musc Details: (+) increasing pain over the left heel Reports abnormal gait (unsteady; due to increasing pain in both legs, ankles and feet), Reports back pain (over the lower back, chronic), Reports arthralgias (both shoulders, on and off; also increasing pain over left wrist), Denies neck pain and Reports radiating pain into limb (frequent radiation of her back pain down into both legs) Skin/Breast Denies rash Neuro Details: increasing pain in both lower extremities, especially at night Reports abnormal gait (unsteady; due to increasing pain in both legs, ankles and feet), Reports dizziness (on and off, mostly with change in position), Denies headache(s) and Reports paresthesias Psych Reports anxiety and Reports depression Endo Reports fatigue and Denies palpitations Aller/Immun Denies wheezing Physical exam (Primary Care) Vital Signs: Last Vital Signs Pulse 75 02/05/24 08:50 BP 126/84 02/05/24 08:50 Pulse Ox 96 02/05/24 08:50 Oxygen Delivery Method Room Air 02/05/24 08:50 BMI result Body Mass Index 18.1 Tobacco/Smoking Status: Tobacco use Status Tobacco use date assessed 02/05/24 02/05/24 08:57 Patient Tobacco Use Status Current everyday Tobacco 02/05/24 08:57 Tobacco use type Cigarette 02/05/24 08:57 e-Cigarette/Vaping Use Never Used 02/05/24 08:57 PHQ-9: PHQ-9 Score PHQ-9: Total score 4 02/05/24 09:13 Depression Screening Interpretation: Positive Depression Screening Follow-up: Existing condition and In treatment Thrive Assessment: Date of Thrive Assessment Date Thrive assessed 02/05/24 02/05/24 08:57 Currently or been in a relationship where the following occur: No concerns reported Const General: no acute distress and alert HENMT Ears: TM's normal bilaterally and EAC's normal Throat: Yes posterior oropharynx normal and Yes tonsils normal (no TP congestion noted) Neck Neck: Yes no lymphadenopathy and Yes supple Thyroid: Thyroid normal Resp Auscultation: no rales, rhonchi (occasional) throughout, no wheezes and diminished lung sounds (slightly) bilateral Cardio Rate: regular rate Rhythm: regular rhythm Heart sounds: no murmurs GI Palpation (GI): Soft to palpation and nontender Auscultation: normal bowel sounds General: Yes no CVA tenderness Back/Spine/Pelvis Back: no CVA tenderness Thoracic/Lumbar Spine: lumbar spinal tenderness and straight leg raise positive Skin Rashes: no rashes Extrem General: Yes no clubbing, cyanosis or edema Right upper extremity: shoulder/upper arm Details: tenderness and normal ROM Left upper extremity: shoulder/upper arm Details: tenderness and normal ROM, wrist ((+) tenderness) and hand Details: tenderness Location: of the thumb Location: at the MCP joint and swelling Location: of the thumb Location: at the MCP joint Left lower extremity: foot Details: tenderness Location: of the calcaneus Office Procedures Flu Questionnaire Does the patient have a severe egg allergy?: No Flu Questionnaire Does the patient have a severe egg allergy?: No Immunizations Fluarix Triv [id number] (PF) 45 mcg (15 mcg x 3)/0.5 mL IM syringe Performing Provider: Alan Chanel MD [facility] Documented (not given) by: JASMEET Taylor on 02/05/24 09:38 Reason Not Given: Patient Refused Coding Level of Care Code Est Pt Level 4 (33118) Complex EM visit Add On G2211 Diagnoses Chronic obstructive pulmonary disease, unspecified COPD type J44.9 COPD type: unspecified COPD Benign essential hypertension I10 Pure hypercholesterolemia E78.00 Degeneration of intervertebral disc of lumbar region with discogenic back pain and lower extremity pain M51.362 Disc-related pain type: discogenic back pain and lower extremity pain Bilateral lower extremity pain M79.604; M79.605 Paresthesia of both feet R20.2 Plantar fasciitis of left foot M72.2 Anemia, unspecified type D64.9 Anemia type: unspecified type Age-related osteoporosis without current pathological fracture M81.0 Osteoporosis type: age-related Presence of current pathological fracture: without current pathological fracture Varicose veins of bilateral lower extremities with pain I83.813 Urinary incontinence, unspecified type R32 Urinary Incontinence type: unspecified incontinence Anxiety F41.9 Episode of recurrent major depressive disorder, unspecified depression episode severity F33.9 Depression Type: major depressive disorder Major depression recurrence: recurrent Active/Remission status: currently active Major depression episode severity: unspecified Assessment & Plan Assessment & Plan (1) COPD (chronic obstructive pulmonary disease): Code(s): J44.9 - Chronic obstructive pulmonary disease, unspecified Category: Medical Qualifiers: COPD type: unspecified COPD Qualified Code(s): J44.9 - Chronic obstructive pulmonary disease, unspecified Plan: PFTs?done back in January 2014 showed (+) moderately severe obstructive lung disease Chest x-rays done back in May 2019 showed (+) lung hyperinflation consistent with COPD, with no acute infiltrates Repeat chest x-rays done in January 2022 showed again (+) hyperinflated lungs reflecting underlying changes of chronic obstructive pulmonary disease, with no acute pulmonary process noted Patient still has frequent exertional dyspnea but this has gotten slightly better since she quit smoking about 5 months ago States that her recurrent cough has also subsided a lot recently She has consistently declined offer to refer her to pulmonary for follow up/further evaluation Continue Ventolin HFA 2 puffs 4 times a day as needed (2) Benign essential hypertension: Code(s): I10 - Essential (primary) hypertension Category: Medical Plan: Reinforced low-sodium diet -? goal is systolic BP of at least 130 to 140 mm or less Continue Lisinopril 5 mg QD (3) Pure hypercholesterolemia: Code(s): E78.00 - Pure hypercholesterolemia, unspecified Category: Medical Plan: Patient was not able to get her follow up labs done prior to her visit today She is reminded that her cholesterol levels remain borderline elevated when they were last checked earlier this year Reinforced low cholesterol diet Will recheck her labs and fasting lipids in 6 months for follow up - she is advised that she should not forget or miss doing this again next time (4) Lumbar degenerative disc disease: Comment: (+) old wedge compression Fx of L4; new (from 2016) compression deformity at L3 Code(s): M51.36 - Other intervertebral disc degeneration, lumbar region Category: Medical Qualifiers: Disc-related pain type: discogenic back pain and lower extremity pain Qualified Code(s): M51.362 - Other intervertebral disc degeneration, lumbar region with discogenic back pain and lower extremity pain Plan: Reinforced activity and weight lifting restrictions - patient's sister states that patient continues to do a lot of heavy lifting at home often when she is cleaning Lumbar spine x-rays done in 2015 showed (+) facet arthritis and degenerative changes of the lumbar spine Repeat lumbar spine x-rays done in May 2022 revealed (+) mild to moderate compression deformity of L3, which is new compared to her previous x-rays in 2016, and recommend MRI for further evaluation if clinically warranted. The mild to moderate compression deformity of L5 is unchanged from previous and multilevel mild to moderate disc degeneration that is worst at L5-S1 Patient has declined offer for her to get an MRI of her lumbar spine and a referral to a back specialist Continue Naproxen 500 mg twice a day with food as needed and Tramadol 50 mg 2 to 3 times a day as needed (5) Bilateral lower extremity pain: Code(s): M79.604 - Pain in right leg; M79.605 - Pain in left leg Category: Medical Plan: EMG & NCV done in 2018 revealed moderately severe axonal sensory and motor chronic peripheral neuropathy and bilateral lower lumbar radiculopathy - she is advised again that this is most likely the main cause of her lower extremity symptoms and of her unsteady gait She was on Gabapentin 100 mg Q HS but it appears that she stopped taking it at some point when her Rx ran out Will start her back on Gabapentin 100 mg Q HS (6) Paresthesia of both feet: Code(s): R20.2 - Paresthesia of skin Category: Medical Plan: This is again mostly due to her lower extremity neuropathy Her follow up labs done back in May 2023 mostly came back normal except for her mildly elevated cholesterol level; her B12 level was normal on her recent labs She will be started back on Gabapentin 100 mg Q HS for this (7) Plantar fasciitis of left foot: Code(s): M72.2 - Plantar fascial fibromatosis Category: Medical Plan: She was referred to and was scheduled to be seen by Dr. Joey Hickman for this but Dr. Hickman recently just and she now needs a referral to another license distributor States that [facility] does not accept her insurance [facility] (8) Anemia: Code(s): D64.9 - Anemia, unspecified Category: Medical Qualifiers: Anemia type: unspecified type Qualified Code(s): D64.9 - Anemia, u nspecified Plan: H/H were still corrected/normal on her most recent labs done back in May 2023 Will continue to monitor her CBC regularly (9) Osteoporosis: Code(s): M81.0 - Age-related osteoporosis without current pathological fracture Category: Medical Qualifiers: Osteoporosis type: age-related Presence of current pathological fracture: without current pathological fracture Qualified Code(s): M81.0 - Age- related osteoporosis without current pathological fracture Plan: Her repeat BMD done in 04/2021 revealed (+) osteopenia based on the lowest T- score value of -2.4 in the femoral neck - will continue to monitor BMD regularly BMD previously done in 2019 which showed (+) osteoporosis with the lowest T- score value of -2.5 in the total femur Patient has also been on Alendronate since 2012 and this was discontinued after more than 5 years of Tx Fall precautions reinforced; patient is reminded to continue taking her oral Calcium and Vitamin D supplements daily Will repeat her BMD now for follow up (10) Varicose veins of bilateral lower extremities with pain: Code(s): I83.813 - Varicose veins of bilateral lower extremities with pain Category: Medical Plan: Follow with vascular surgery as scheduled -? symptoms have been adequately controlled with support stockings PRN (11) Urinary incontinence: Code(s): R32 - Unspecified urinary incontinence Category: Medical Qualifiers: Urinary Incontinence type: unspecified incontinence Qualified Code(s): R32 - Unspecified urinary incontinence Plan: Patient reportedly wets her bed constantly at night and has increased urinary frequency and some incontinence during the day Suspect that patient has OAB but she also has a history of right hydronephrosis and right UPJ obstruction Was seen by Urology previously and sent for bladder ultrasound and started on a trial of Oxybutynin, which patient states did not help Ultrasound revealed only a small left ureterocele and was otherwise normal Patient does not want to go back to see Dr. Kaplan for Urology follow-up and states that she will call for another referral if she feels that she needs to see Urology again (12) Anxiety: Code(s): F41.9 - Anxiety disorder, unspecified Category: Medical Plan: Continue Doxepin 10 mg once a day at bedtime and Lorazepam 0.5 mg 1 tablet 2 to 3 times a day as needed for increased anxiety (13) Depression: Code(s): F32.9 - Major depressive disorder, single episode, unspecified Category: Medical Qualifiers: Depression Type: major depressive disorder Major depression recurrence: recurrent Active/Remission status: currently active Major depression episode severity: unspecified Qualified Code(s): F33.9 - Major depressive disorder, recurrent, unspecified Plan: Patient states that she has been crying a lot lately, especially at night, and does not understand why she is now feeling this way Have explained to her that in the past, she is likely using smoking as a crutch to help alleviate her mood disorder (both anxiety and depression) but since she quit smoking a few months ago, she no longer has this outlet to help her and her depression and anxiety have gradually escalated over the past few months Will start her now on Sertraline 50 mg QD in AM Plan Follow up in 6 months Orders: Orders Comprehensive [place]. Panel Fast 6 Months E78.00 - Pure hypercholesterolemia, unspecified TSH reflex Free T4 6 Months E78.00 - Pure hypercholesterolemia, unspecified Influenza [id number] Immunization Today Z23 - Encounter for immunization XR DEXA axial skeleton Today Z78.0 - Asymptomatic menopausal state Influenza [id number] Immunization Today Z23 - Encounter for immunization Complete Blood Count Auto Diff 6 Months D64.9 - Anemia, unspecified Lipid Panel 6 Months E78.00 - Pure hypercholesterolemia, unspecified UA CC w/rflx Micro + Cult 6 Months R30.0 - Dysuria Vitamin B12 and Folate 6 Months E53.8 - Deficiency of other specified B group vitamins Vitamin D 25-OH Total 6 Months E55.9 - Vitamin D deficiency, unspecified Referrals Podiatry Referral M72.2 - Plantar fascial fibromatosis Medications: New sertraline 50 mg PO DAILY 30 days 30 tabs 5RF Refilled gabapentin 100 mg PO BEDTIME 30 days 30 caps 5RF neuropathic leg pain and low back pain
== END 2024-02-05 09:40 | disposition home or self-care (01) ==
PROVIDERS: PCP Internal Medicine; Visit Provider Internal Medicine
DX: J44.9 Chronic obstructive pulmonary disease, unspecified (principal); F33.9 Major depressive disorder, recurrent, unspecified; I10 Essential (primary) hypertension; E78.00 Pure hypercholesterolemia, unspecified; M51.362 Other intervertebral disc degeneration, lumbar region with discogenic back pain and lower extremity pain; M79.604 Pain in right leg; M79.605 Pain in left leg; R20.2 Paresthesia of skin; M72.2 Plantar fascial fibromatosis; D64.9 Anemia, unspecified; M81.0 Age-related osteoporosis without current pathological fracture; I83.813 Varicose veins of bilateral lower extremities with pain

== ENCOUNTER → 2024-02-05 08:46 | Outpatient (BNVA) | payer MEDICARE, MEDICAID, SELFPAY | PROVIDERS: PCP Internal Medicine; Visit Provider Internal Medicine | DX: J44.9 Chronic obstructive pulmonary disease, unspecified (principal); E78.00 Pure hypercholesterolemia, unspecified; I10 Essential (primary) hypertension; M51.362 Other intervertebral disc degeneration, lumbar region with discogenic back pain and lower extremity pain; M79.604 Pain in right leg; M79.605 Pain in left leg; R20.2 Paresthesia of skin; M72.2 Plantar fascial fibromatosis; D64.9 Anemia, unspecified; M81.0 Age-related osteoporosis without current pathological fracture; I83.813 Varicose veins of bilateral lower extremities with pain; R32 Unspecified urinary incontinence; F41.9 Anxiety disorder, unspecified; F33.9 Major depressive disorder, recurrent, unspecified | CPT/HCPCS: 99212 ==

== ENCOUNTER 2024-03-05 08:05 | Outpatient (REF) | payer MEDICARE, MEDICAID, SELFPAY ==
--- NOTE | ~2024-03-05 | MM_ITS ---
EXAMINATION: BONE DENSITOMETRY CLINICAL INDICATION: Asymptomatic menopausal state. COMPARISON: Previous BD dated 04/19/2021 and baseline BD dated 07/25/2009. TECHNIQUE: Using a [employer] DXA System (software version: 13.1) manufactured by [employer], dual-energy x-ray absorptiometry was performed of the lumbar spine and left hip. The images are of good technical quality. Summary results are attached. FINDINGS: LEFT FEMUR, NECK: Current: BMD 0.708 g/cm2, Z-score -0.2, T-score -2.4, osteopenia. Prior: BMD 0.699 g/cm2. Baseline: BMD 0.746 g/cm2. LEFT FEMUR, TOTAL: Current: BMD 0.705 g/cm2, Z-score -0.4, T-score -2.4, osteopenia, 1.1% decrease from previous, 8.4% decrease from baseline (<5% change is not significant). Prior: BMD 0.713 g/cm2. Baseline: BMD 0.770 g/cm2. AP SPINE L1-L3 (excluding L4): The data of L1-L4 has been changed to exclude the L4 vertebral body, because degenerative changes at this level may cause overestimation of lumbar spine density. Current: BMD 0.972 g/cm2, Z-score 0.5, T-score -1.7, osteopenia, 11.0% decrease from previous, 6.7% decrease from baseline (<5% change is not significant). Prior: BMD 1.092 g/cm2. Baseline: BMD 1.042 g/cm2. IDENTIFIED RISK FACTORS: Rheumatoid arthritis, osteoporosis, recurrent falls, height loss, low body weight, history of fracture (adult). Early menopause, secondary osteoporosis. HISTORY OF FRACTURE: Other. MEDICATIONS: Calcium. MM/XR DEXA axial skeleton IMPRESSION: 1. DIAGNOSIS: Osteopenia based on the lowest T-score value of -2.4 in the femoral neck and total femur applying World Health Organization criteria. 2. 10-YEAR FRACTURE RISK PREDICTION, FRAX: Major osteoporotic fracture (clinical spine, forearm, hip or shoulder) 24.5%. Hip fracture 8.2%. 3. Treatment Recommendations: NOF guidelines recommend consideration for treatment in postmenopausal women and men age 50 and older presenting with the following: -A hip or vertebral (clinical or morphometric) fracture. -T-score less than or equal to -2.5 at the femoral neck or spine after appropriate evaluation to exclude secondary causes. -Low bone mass at the hip or spine and a 10-year fracture probability by FRAX of greater than or equal to 3% for hip fracture or greater than or equal to 20% for major osteoporotic fracture based on the [place] adapted WHO algorithm. 4. Other Recommendations: All treatment decisions require clinical judgment and consideration of individual patient factors, including patient preferences, comorbidities, previous drug use, risk factors not captured in the FRAX model (e.g. frailty, falls, vitamin D deficiency, increased bone turnover, interval significant decline in bone density) and possible under or overestimation of fracture risk by FRAX. Additional medical evaluation for secondary cause of low bone mineral density may be appropriate. FUTURE SCAN RECOMMENDATION: People with diagnosed cases of osteoporosis or at high risk for fracture should have regular bone mineral density tests. For patients eligible for Medicare, routine testing is allowed once every 2 years. The testing frequency can be increased to one year for patients who have rapidly progressing disease, those who are receiving or discontinuing medical therapy to restore bone mass, or have additional risk factors. Electronically signed by: Ramone Mcgee MD 03/05/2024 05:00 PM EDT
== END 2024-03-05 08:06 | disposition home or self-care (01) ==
LOC: HO.MAMMO 08:05
PROVIDERS: PCP Internal Medicine; Visit Provider Internal Medicine
DX: Z78.0 Asymptomatic menopausal state (principal); Z13.820 Encounter for screening for osteoporosis; Z23 Encounter for immunization
CPT/HCPCS: 77080; 90471; 90656

== ENCOUNTER 2024-03-05 08:27 | Outpatient (AMB) | payer MEDICARE, MEDICAID, SELFPAY ==
--- NOTE | 2024-03-05 08:40 | AM.OFFVISNUR ---
Intake Visit Reasons: flu shot Allergies No Known Allergies [No Known Allergies*] Allergy (Verified 02/05/24 09:05) Office Procedures Flu Questionnaire Does the patient have a severe egg allergy?: No Does the patient have severe life threatening allergies?: No Does the patient have a fever or illness today?: No Has the patient ever had Guillain-Cutler Syndrome?: No Has the patient ever had any past reaction to a flu shot?: No Assessment & Plan Assessment & Plan Orders: Orders Influenza [id number] Immunization Today Z23 - Encounter for immunization Medications: New Fluarix Triv [id number] (PF) (flu vacc [id number] 6mos up(PF)) 0.5 mL IM ONCE 0.5 mL 0RF NS Z23 - Encounter for immunization
== END 2024-03-05 08:43 | disposition home or self-care (01) ==
LOC: HO.HMCH 08:27
PROVIDERS: PCP Internal Medicine
DX: Z23 Encounter for immunization (principal)

== ENCOUNTER 2024-04-02 10:54 | Emergency (ER) | payer MEDICARE, MEDICAID, SELFPAY ==
--- NOTE | ~2024-04-02 | XR_ITS ---
EXAMINATION: XR LUMBOSACRAL SPINE CLINICAL INFORMATION: fall, pain COMPARISON: Lumbar spine radiographs dated 05/22/2022. TECHNIQUE: Three views of the lumbosacral spine. FINDINGS: Levocurvature of the lumbar spine is unchanged. The lumbar lordosis is maintained. Chronic loss of L3 and L5 vertebral body height, similar when compared to the prior examination. No new loss of vertebral body height. Multilevel loss of intervertebral disc and endplate osteophytes as well as multilevel bilateral facet arthropathy is redemonstrated. No concerning lytic or blastic osseous lesion. Moderate stool burden. XR/XR lumbar spine 2-3V IMPRESSION: 1. No acute fracture or subluxation. Chronic compression deformities of L3 and L5 are unchanged. 2. Levocurvature of the lumbar spine with multilevel degenerative disc disease and bilateral facet arthropathy, unchanged. Electronically signed by: Quintin Hinson MD 04/02/2024 12:54 PM [facility]
--- NOTE | ~2024-04-02 | XR_ITS ---
EXAMINATION: XR SACRUM AND COCCYX CLINICAL INFORMATION: Fall, pain COMPARISON: Most recent lumbar spine radiograph dated 05/22/2022. TECHNIQUE: 2 views of the sacrum and 2 views of the coccyx were obtained. FINDINGS: No displaced fracture. No concerning lytic or blastic osseous lesion. No abnormal soft tissue calcification. Moderate stool burden. XR/XR sacrum coccyx min 2V IMPRESSION: 1. No displaced fracture. 2. Moderate stool burden. Electronically signed by: Quintin Hinson MD 04/02/2024 12:37 PM [facility]
--- NOTE | ~2024-04-02 | XR_ITS ---
EXAMINATION: XR KNEE, LEFT CLINICAL INFORMATION: Fall, pain COMPARISON: None available. TECHNIQUE: Four views of the left knee. FINDINGS: No acute fracture or dislocation. Mild medial compartment joint space narrowing. No marginal osteophytes. No osseous erosion. Faint medial and lateral compartment chondrocalcinosis. No joint effusion. Atherosclerotic calcifications. XR/XR knee LT 4V IMPRESSION: 1. No acute fracture or dislocation. 2. Mild medial compartment joint space narrowing. Faint medial and lateral compartment chondrocalcinosis. Electronically signed by: Quintin Hinson MD 04/02/2024 12:37 PM [facility]
[2024-04-02 11:11] VITALS: BP 145/71; PULSE 75; RESP 16; TEMP 36.6; O2SAT 96; BMI 23.4
--- NOTE | 2024-04-02 11:14 | ED_ITS ---
HPI - General Adult General Chief complaint: Fall Stated complaint: L leg pain Time Seen by Provider: 04/02/24 11:45 Source: patient Limitations: no limitations History of Present Illness ED Provider: Christina Pack NP HPI narrative: Patient is a 73-year-old female with past medical history of COPD, hypertension, anemia, lumbar compression fractures, osteoporosis, hearing impairment presenting to emergency department for evaluation. She reports yesterday she had a mechanical trip and fall down 2 stairs. 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 She fell in a seated position, landing on her bottom. She is endorsing pain diffusely across her lower back but worse on the left side, and has pain to her left knee. She denies any point of impact to the left knee but is not sure whether her leg twisted. She denies any associated head strike or loss of consciousness. She has been taking naproxen at home with some improvement in pain. Reports pain is unchanged with Tylenol. She is ambulatory throughout her home but it is painful to do so. Related Data Home Medications ?Medication ?Instructions ?Recorded ?Confirmed aspirin 81 mg chewable tablet 81 mg PO DAILY 02/22/20 02/05/24 (Doyle Chewable Low Dose Aspirin) calcium carbonate (Calcium 600) 600 mg PO DAILY 01/10/22 02/05/24 Previous Rx's ?Medication ?Instructions ?Recorded lorazepam 0.5 mg tablet 0.5 mg PO BID PRN anxiety 30 days 11/14/22 #60 tabs albuterol sulfate 90 mcg/actuation 2 puff PO QID PRN for wheezing #18 06/23/23 aerosol inhaler ea nicotine 14 mg/24 hr daily 1 patch transdermal DAILY 7 days 08/06/23 transdermal patch #7 ea nicotine 7 mg/24 hr daily 1 patch transdermal Q24H 28 days 08/06/23 transdermal patch #28 ea gabapentin 100 mg capsule 100 mg PO BEDTIME neuropathic leg 02/05/24 pain and low back pain 30 days #30 caps sertraline 50 mg tablet 50 mg PO DAILY 30 days #30 tabs 02/05/24 naproxen 500 mg tablet 500 mg PO BID PRN for pain #180 02/21/24 tabs lisinopril 5 mg tablet 5 mg PO DAILY #90 tabs 02/27/24 lidocaine 5 % topical patch 2 patch topical DAILY #30 ea 04/02/24 (Lidoderm) tramadol 50 mg tablet 50 mg PO Q8H PRN pain #10 tabs 04/02/24 Allergies Allergy/AdvReac Type Severity Reaction Status Date / Time No Known Allergies Allergy Verified 04/02/24 11:12 [No Known Allergies*] Review of Systems Review of Systems: Yes all other systems are reviewed and are negative [facility] Past Medical History Attestation statement: The following information was validated with the patient. Source: old records reviewed Medical History De Quervain's tenosynovitis, left Arthritis of hand, left, degenerative Hearing impairment Smoker Depression Anxiety Osteoporosis Urinary urgency Urinary incontinence Varicose veins of bilateral lower extremities with pain Peripheral polyneuropathy Pure hypercholesterolemia Anemia Compression fracture of L4 vertebra with routine healing Lumbar degenerative disc disease Benign essential hypertension COPD (chronic obstructive pulmonary disease) Surgical History History of cystoscopy History of bilateral cataract extraction Family History Family History Father No problems noted. Mother Lung cancer Sister Down syndrome Maternal Grandfather Lung cancer Maternal Grandmother Lung cancer Social History Social History (Updated 02/05/24 @ 09:52 by Alan Chanel MD) Housing: House Alcohol intake: former Patient Tobacco Use Status: Former Tobacco user Tobacco use type: Cigarette Cigarette Packs Per Day: 2 Cigarettes Per Day: 40 e-Cigarette/Vaping Use: Never Used Second Hand Smoke Exposure: Yes Advance Directives: No Advance Directives Information Provided: Yes Do you have a plan to hurt others: No Plan service: No Current occupational status: retired Cognitive needs: No Hearing needs: Yes Vision needs: Yes (Glasses) Physical Exam ED Vital Signs: Vital Signs - 24 hr 04/02/24 11:11 Temperature 97.8 F Pulse Rate 75 Respiratory Rate 16 Blood Pressure 145/71 H Pulse Oximetry 96 Oxygen Delivery Method Room Air BMI result Body Mass Index 23.4 Appearance: Alert.?Oriented to person, place and time. No acute d istress.?Normal affect. Eyes: Pupils equal, round and reactive to light.? ENT: Pharynx normal.?? Neck: Normal inspection.? Neck supple.?? CVS: Heart sounds normal. Normal heart rate and rhythm.? Pulses normal; bilateral radial pulses 2+, bilateral posterior tibial/dorsalis pedis pulses 2+.? Respiratory: No respiratory distress.? Lung sounds clear to auscultation bilaterally?? Abdomen: Soft and non-tender. Normoactive bowel sounds. Skin: Skin warm and dry.? Normal skin color.? ? Extremities: No lower extremity edema.? No calf ttp?left knee without evidence of effusion erythema or warmth. Anterior and posterior drawer test are negative. Pain with valgus and varus stress test. 2+ DP/PT pulse. Back: + moderate paraspinal muscular tenderness from lumbar region to coccyx. No CVA tenderness. No midline spinal tenderness, step-off's, or deformity. Full ROM intact in bilateral lower extremities. No rashes, lesions, areas of induration or fluctuance, or signs of infection noted., Neuro: Moves all extremities spontaneously. Sensation to light touch intact bilaterally. Patellar and Achilles reflex 2+ bilaterally. No ataxia, gait slow but steady.. No focal neuro deficits. Course Course Course Narrative: This is a rapid medical exam performed by Enma Babin NP: Additional HPI, ROS, PE not included below will be deferred to primary provider. Patient is a 73-year-old female with history of COPD, HTN, anemia, compression fx of L4, osteoporosis, hearing impairment presenting wtith complaint of left leg pain radiating from tailbone after a fall yesterday. States was going down steps and slipped, landing on her bottom. Denies head strike/LOC. Plan: xrays Medications Administered Discontinued Medications Generic Name Dose Route Start Last Admin Trade Name Freq PRN Reason Stop Dose Admin Lidocaine 2 patch 04/02/24 12:35 04/02/24 12:56 Lidocaine 4 % Patch Adh..Patch TRANSDERMA 04/02/24 12:36 2 patch ONCE ONE Administration Protocol Medical Decision Making Medical Decision Making MDM Narrative: Patient is a 73-year-old female with past medical history of COPD, hypertension, anemia, lumbar compression fractures, osteoporosis, hearing impairment who presents emergency department for evaluation of acute on chronic back and left lower extremity/knee pain after a recent fall as per HPI. She has known degenerative disc disease and facet arthritis of the lumbar region as well as compression fracture; last seen by her primary care doctor in February of 2024. Most recent lumbar x-rays and 2022 revealing compression deformity of L3, compression deformity of L5, old wedge compression fracture of the L4. She has declined offer from PCP for MRI of her lumbar spine or referral to a back specialist. Plan of care was that she would take naproxen 500 mg twice daily with food and tramadol 2-3 times daily as needed (although on review of her [employer]AN[employer] TECHNICIAN I do not see that prescription for tramadol was ever picked up from pharmacy). XR without evidence of acute fracture subluxation, chronic compression fracture L3-L5. She has chronic pain to the left leg secondary to chronic neuropathy and bilateral lumbar radiculopathy for which she is prescribed gabapentin at night. On evaluation she has diffuse tenderness across the lower back without appreciable lumbar step-offs/deformity. Left knee is without laxity, no obvious deformity, no effusion, no erythema or warmth to suggest a septic joint. Patient states that she feels she is able to return home, she has been ambulatory though it is painful to do so, we discussed possibility for case Management/PT evaluation she however declines. She is present with her sister stresses no concern about her ability to return home. Differential Diagnosis Differential Diagnoses: The differential diagnosis associated with the presentation includes (Fracture, dislocation, left knee sprain, lumbar radiculopathy, DJD of the lumbar spine, chronic compression fractures) Admission/Observation Consideration of admission/observation: Escalation of care including admission/observation considered Independent Interpretation I performed an independent interpretation of an: Plain X-Ray (No acute fracture of the left knee) Radiology Impression Discussion of test interpretation with radiology: I have reviewed the radiologist's reading. Radiologist Impression: XR/XR sacrum coccyx min 2V IMPRESSION: 1. No displaced fracture. 2. Moderate stool burden. XR/XR knee LT 4V IMPRESSION: 1. No acute fracture or dislocation. 2. Mild medial compartment joint space narrowing. Faint medial and lateral compartment chondrocalcinosis. XR/XR lumbar spine 2-3V IMPRESSION: 1. No acute fracture or subluxation. Chronic compression deformities of L3 and L5 are unchanged. 2. Levocurvature of the lumbar spine with multilevel degenerative disc disease and bilateral facet arthropathy, unchanged. Independent Historian Clinical information obtained from an independent historian. History obtained from or confirmed by: Other (Sister) External Record Review External record reviewed: Outpatient record (See narrative above) and Other I attest that I have reviewed patients [place], and at the time prescribing the patient a controlled substance is appropriate based off of patients diagnosis and treatment plan. Tests considered The following testing was considered but not selected: No indication for emergent MRI at this time. Examination is not consistent with cauda equina syndrome, no bladder bowel dysfunction, no saddle paresthesias, ambulatory with a slow gait Prescription Management I considered prescription management with: Pain Medication (See narrative above) Chronic Conditions Patient?s care impacted by: Other (See narrative above) Discharge Plan Discharge Clinical Impression: Compression fracture of lumbar vertebra Lumbar degenerative disc disease Qualifiers: Disc-related pain type: discogenic back pain and lower extremity pain Qualified Code(s): M51.362 - Other intervertebral disc degeneration, lumbar region with discogenic back pain and lower extremity pain Patient Disposition: Home, Self-Care Instructions: Osteoporosis (ED), Vertebral Compression Fracture (ED), Degenerative Disc Disease (ED) Additional Instructions: As discussed, please follow-up closely with your primary care doctor. After most recent visit in February, there was some mention of an MRI of the lumbar spine and/or seeing a back specialist, if this is something you are interested in you should have a conversation with him about that. Additionally, for pain that is unrelieved by the naproxen your previously prescribed and/or the Lidoderm patches I have sent a prescription for the tramadol to your pharmacy. There was mention of this from your primary care doctor, I am not certain whether a prescription was sent previously. However on review of your pharmacy records it does not appear as though you have received this medication. Tramadol can make you drowsy, and it can be sedating. Please be certain that you take this for the 1st time with family around so that you may see how it can impact due. Lidoderm patches should only be left on for 12 hours and then removed with a patch free period of 12 hours. Prescriptions: New lidocaine [Lidoderm] 5 % adhesive patch,medicated 2 patch topical DAILY Qty: 30 0RF Rx Instructions: leave on most painful area for up to 12 hrs tramadol 50 mg tablet 50 mg PO Q8H PRN (Reason: pain) Qty: 10 0RF No Action lorazepam 0.5 mg tablet 0.5 mg PO BID PRN (Reason: anxiety) 30 Days Qty: 60 1RF albuterol sulfate 90 mcg/actuation HFA aerosol inhaler 2 puff PO QID PRN (Reason: for wheezing) Qty: 18 2RF naproxen 500 mg tablet 500 mg PO BID PRN (Reason: for pain) Qty: 180 1RF lisinopril 5 mg tablet 5 mg PO DAILY Qty: 90 1RF aspirin [Doyle Chewable Aspirin] 81 mg tablet,chewable 81 mg PO DAILY calcium carbonate [Calcium 600] 600 mg calcium (1,500 mg) tablet 600 mg PO DAILY nicotine 14 mg/24 hr patch 24 hour 1 patch transdermal DAILY 7 Days Qty: 7 0RF nicotine 7 mg/24 hr patch 24 hour 1 patch transdermal Q24H 28 Days Qty: 28 5RF sertraline 50 mg tablet 50 mg PO DAILY 30 Days Qty: 30 5RF gabapentin 100 mg capsule 100 mg PO BEDTIME 30 Days Qty: 30 5RF Referrals: Alan Chanel MD [Primary Care Provider] - Print Language: Khmer
[2024-04-02] MEDS: Lidocaine 4 % Patch ADH..PATCH 2 PATCH TRANSDERMA (12:56)
--- NOTE | 2024-04-02 12:57 | PC.NURSE ---
pt medicated for 10/13 pain
[2024-04-02 13:56] VITALS: BP 145/71; PULSE 75; RESP 16; TEMP 36.6; O2SAT 96
== END 2024-04-02 13:56 | disposition home or self-care (01) ==
PROVIDERS: Emergency Provider Emergency Medicine Emergency Medical Services; PCP Internal Medicine
DX: M51.362 Other intervertebral disc degeneration, lumbar region with discogenic back pain and lower extremity pain (principal); S32.040D Wedge compression fracture of fourth lumbar vertebra, subsequent encounter for fracture with routine healing; S32.030D Wedge compression fracture of third lumbar vertebra, subsequent encounter for fracture with routine healing; S32.050D Wedge compression fracture of fifth lumbar vertebra, subsequent encounter for fracture with routine healing; W01.0XXD Fall on same level from slipping, tripping and stumbling without subsequent striking against object, subsequent encounter; Z91.81 History of falling; I10 Essential (primary) hypertension; E78.00 Pure hypercholesterolemia, unspecified; J44.9 Chronic obstructive pulmonary disease, unspecified; Z87.891 Personal history of nicotine dependence
CPT/HCPCS: 72100; 72220; 73564; 99282; 99283

== ENCOUNTER 2024-04-07 09:13 | Outpatient (AMB) | payer MEDICARE, MEDICAID, SELFPAY ==
[2024-04-07 09:21] VITALS: BP 110/78; PULSE 84; O2SAT 98; BMI 19.2
--- NOTE | 2024-04-07 09:21 | MHC.PC.OV ---
Vital Signs 04/07/24 09:21 Height 5 ft 6 in Weight 118 lb 13.266 oz BMI 19.2 BP 110/78 Blood Pressure Location Lt brachial Position Sitting Pulse 84 Pulse Source Pulse Oximeter Pulse Oximetry (%) 98 Oxygen Delivery Method Room Air Intake Visit Reasons: [facility] 03/23 leg pain Product Marketing Coordinator Required: No Accompanied by: Sister Allergies No Known Allergies [No Known Allergies*] Allergy (Verified 04/08/24 13:47) Medication List - Last Reconciled 04/08/24 by Lalo Montoya MD albuterol sulfate 90 mcg/actuation 2 puffs PO QID PRN aspirin (Doyle Chewable Low Dose Aspirin) 81 mg PO DAILY calcium carbonate (Calcium 600) 600 mg PO DAILY gabapentin 100 mg PO BEDTIME 30 days lidocaine 5% (Lidoderm) 2 patches topical DAILY lisinopril 5 mg PO DAILY lorazepam 0.5 mg PO BID PRN 30 days naproxen 500 mg PO BID PRN nicotine 1 patch transdermal DAILY 7 days nicotine 1 patch transdermal Q24H 28 days sertraline 50 mg PO DAILY 30 days tramadol 50 mg PO Q8H PRN Tobacco use date assessed: 02/05/24 Dental Screening Dental Screen Date: 02/05/24 HPI [facility] 03/23 leg pain HPI Details 73-year-old female presents to the office for a post emergency room visit. She is accompanied by her sister. Patient comes to the office in a wheelchair. Patient is complaining of left knee pain and ankle pain since last week. Patient fell at the curb, near her house. She could get up without assistance. Later in the evening she started experiencing sharp pain in the knee and ankle and proceeded to the emergency room. X-rays done in the emergency room were unremarkable. Patient reports that she is continuing to have sharp pain which is making walking difficult. When she is sitting down or lying down, her discomfort is very less. [facility] Medical History De Quervain's tenosynovitis, left Arthritis of hand, left, degenerative Hearing impairment Smoker Depression Anxiety Osteoporosis Urinary urgency Urinary incontinence Varicose veins of bilateral lower extremities with pain Peripheral polyneuropathy Pure hypercholesterolemia Anemia Compression fracture of L4 vertebra with routine healing Lumbar degenerative disc disease Benign essential hypertension COPD (chronic obstructive pulmonary disease) Surgical History History of cystoscopy History of bilateral cataract extraction Family History Father No problems noted. Mother Lung cancer Sister Down syndrome Maternal Grandfather Lung cancer Maternal Grandmother Lung cancer Social History (Updated 02/05/24 @ 09:52 by Alan Chanel MD) Housing: House Alcohol intake: former Patient Tobacco Use Status: Former Tobacco user Tobacco use type: Cigarette Cigarette Packs Per Day: 2 Cigarettes Per Day: 40 e-Cigarette/Vaping Use: Never Used Second Hand Smoke Exposure: Yes service: No Current occupational status: retired Cognitive needs: No Hearing needs: Yes Vision needs: Yes (Glasses) Questionnaire Thrive Questionnaire Date Thrive assessed: 02/05/24 Are you currently unemployed and looking for a job?: No AUDIT C Alcohol Use Questionnaire (AUDIT-C) 3. How often do you have six or more drinks on one occasion?: Never Total Score: 0 BROOKE-7 AMB Questionnaire BROOKE-7 Date BROOKE - 7 assessed: 02/05/24 Source: Developed by Drs. Rios Hager, Marie Marr, Marcus Moser and colleagues, with an educational felipe from [employer]. Physical exam (Primary Care) Vital Signs: Last Vital Signs Pulse 84 04/07/24 09:21 BP 110/78 04/07/24 09:21 Pulse Ox 98 04/07/24 09:21 Oxygen Delivery Method Room Air 04/07/24 09:21 BMI result Body Mass Index 19.2 Tobacco/Smoking Status: Tobacco use Status Tobacco use date assessed 02/05/24 12 09:28 Patient Tobacco Use Status Former Tobacco user 04/07/24 09:28 Tobacco use type Cigarette 04/07/24 09:28 e-Cigarette/Vaping Use Never Used 04/07/24 09:28 Thrive Assessment: Date of Thrive Assessment Date Thrive assessed 02/05/24 04/07/24 09:28 Extrem Other: Left knee: Minimal swelling compared to the right. No visible bruising. Minimal joint line discomfort, especially on the lateral side. Patient experiences sharp pain when she bears weight on the left knee. Coding Level of Care Code Est Pt Level 4 (39531) Diagnoses Degeneration of intervertebral disc of lumbar region with discogenic back pain and lower extremity pain M51.362 Disc-related pain type: discogenic back pain and lower extremity pain Assessment & Plan Assessment & Plan (1) Lumbar degenerative disc disease: Comment: (+) old wedge compression Fx of L4; new (from 2016) compression deformity at L3 Code(s): M51.36 - Other intervertebral disc degeneration, lumbar region Category: Medical Qualifiers: Disc-related pain type: discogenic back pain and lower extremity pain Qualified Code(s): M51.362 - Other intervertebral disc degeneration, lumbar region with discogenic back pain and lower extremity pain Plan: Patient is unable to walk because of sharp pain in the knee. X-rays were unremarkable. Physical therapy has been requested. A knee brace has been provided. With improving strength in her legs, she should be able to ambulate. Patient was encouraged to keep stretching her legs. If there is no improvement in her condition, I advised her to come back here for a follow-up. Plan See below Orders: Orders PT Evaluation and Treatment Today M51.362 - Other intervertebral disc degeneration, lumbar region with discogenic back pain and lower extremity pain
== END 2024-04-07 09:58 | disposition home or self-care (01) ==
PROVIDERS: PCP Internal Medicine; Visit Provider Internal Medicine
DX: M51.362 Other intervertebral disc degeneration, lumbar region with discogenic back pain and lower extremity pain (principal)

== ENCOUNTER → 2024-04-07 09:13 | Outpatient (BNVA) | payer MEDICARE, MEDICAID, SELFPAY | PROVIDERS: PCP Internal Medicine; Visit Provider Internal Medicine | DX: M51.362 Other intervertebral disc degeneration, lumbar region with discogenic back pain and lower extremity pain (principal) | CPT/HCPCS: 99212 ==

== ENCOUNTER 2024-04-10 06:07 | Emergency (ER) | payer MEDICARE, MEDICAID, SELFPAY ==
[2024-04-10] VITALS (8 sets, daily range): BP systolic 132–153; BP diastolic 63–83; PULSE 79–91; RESP 16–18; TEMP 36.4–36.8; O2SAT 91–98; BMI 19.1
--- NOTE | ~2024-04-10 | XR_ITS ---
EXAMINATION: XR KNEE, LEFT CLINICAL INFORMATION: pain COMPARISON: X-ray 04/02/2024 TECHNIQUE: Four views of the left knee. FINDINGS: There is lucencies and sclerosis in the medial tibial plateau, with cortical offset medially, suspicious for a mildly displaced fracture. No acute femoral or fibular fracture is identified. Mild medial compartment joint space narrowing. Faint chondrocalcinosis in the medial and lateral compartments. No joint effusion. Atherosclerotic vascular calcifications. XR/XR knee LT 4V IMPRESSION: 1. Medial tibial plateau findings suspicious for a mildly displaced fracture. Findings new from the prior study of 04/02/2024. 2. Mild degenerative changes as above. 3. No significant effusion. Electronically signed by: Saurabh Bustos MD 04/10/2024 09:18 AM KATRIN LYNN
--- NOTE | ~2024-04-10 | US_ITS ---
EXAMINATION: US TRIPLEX LOWER EXTREMITY, LEFT CLINICAL INFORMATION: Calf tenderness, swelling COMPARISON: None available. TECHNIQUE: Color-flow triplex imaging with spectral analysis and compression Doppler were performed on the left lower extremity. FINDINGS: Respiratory variation, normal compression and augmented flow are noted throughout the left lower extremity. The visualized common femoral vein, superficial femoral vein, profunda femoral vein, popliteal vein and midcalf peroneal and posterior tibial venous segments show no evidence of deep venous thrombosis. Dias's cyst measuring 2.8 x 0.7 x 2.1 cm US/US venous duplex LE LT IMPRESSION: No evidence of deep venous thrombosis involving the left lower extremity. Dias's cyst measuring 2.8 cm. Electronically signed by: Saurabh Bustos MD 04/10/2024 09:14 AM KATRIN
--- NOTE | 2024-04-10 06:53 | ED_ITS ---
HPI - General Adult General Chief complaint: Extremity Injury, Lower Stated complaint: weakness L side knee pain and swelling Time Seen by Provider: 04/10/24 06:31 Source: patient, EMS and RN notes reviewed Mode of arrival: EMS Limitations: physical limitation History of Present Illness ED Provider: Talya HPI narrative: Patient is a 73-year-old female with history of COPD, hypertension, anemia, lumbar compression fractures, osteoporosis, neuropathy, hearing impairment presenting to emergency department with complaint of worsening left knee pain over the past few weeks. Recent fall on giving, patient was evaluated in the ED after this fall, had imaging, no acute fracture of left knee. Since that time pain has worsened to the point that patient is unable to ambulate. Also notes redness and warmth to distal left lower leg for a few weeks. Denies fevers, chills, body aches. MD complaint: left knee pain Onset (ago): week(s) Treatments prior to arrival: none Related Data Home Medications ?Medication ?Instructions ?Recorded ?Confirmed aspirin 81 mg chewable tablet 81 mg PO DAILY 02/22/20 02/05/24 (Doyle Chewable Low Dose Aspirin) calcium carbonate (Calcium 600) 600 mg PO DAILY 01/10/22 02/05/24 Previous Rx's ?Medication ?Instructions ?Recorded lorazepam 0.5 mg tablet 0.5 mg PO BID PRN anxiety 30 days 11/14/22 #60 tabs albuterol sulfate 90 mcg/actuation 2 puff PO QID PRN for wheezing #18 06/23/23 aerosol inhaler ea nicotine 14 mg/24 hr daily 1 patch transdermal DAILY 7 days 08/06/23 transdermal patch #7 ea nicotine 7 mg/24 hr daily 1 patch transdermal Q24H 28 days 08/06/23 transdermal patch #28 ea gabapentin 100 mg capsule 100 mg PO BEDTIME neuropathic leg 02/05/24 pain and low back pain 30 days #30 caps sertraline 50 mg tablet 50 mg PO DAILY 30 days #30 tabs 02/05/24 naproxen 500 mg tablet 500 mg PO BID PRN for pain #180 02/21/24 tabs lisinopril 5 mg tablet 5 mg PO DAILY #90 tabs 02/27/24 lidocaine 5 % topical patch 2 patch topical DAILY #30 ea 04/02/24 (Lidoderm) tramadol 50 mg tablet 50 mg PO Q8H PRN pain #10 tabs 04/02/24 Allergies Allergy/AdvReac Type Severity Reaction Status Date / Time No Known Allergies Allergy Verified 04/10/24 06:19 [No Known Allergies*] Review of Systems Review of Systems: As per hPI. Yes all other systems are reviewed and are negative Constitutional: Constitutional: Reports as per HPI [facility] Past Medical History Medical History De Quervain's tenosynovitis, left Arthritis of hand, left, degenerative Hearing impairment Smoker Depression Anxiety Osteoporosis Urinary urgency Urinary incontinence Varicose veins of bilateral lower extremities with pain Peripheral polyneuropathy Pure hypercholesterolemia Anemia Compression fracture of L4 vertebra with routine healing Lumbar degenerative disc disease Benign essential hypertension COPD (chronic obstructive pulmonary disease) Surgical History History of cystoscopy History of bilateral cataract extraction Family History Family History Father No problems noted. Mother Lung cancer Sister Down syndrome Maternal Grandfather Lung cancer Maternal Grandmother Lung cancer Social History Social History (Updated 02/05/24 @ 09:52 by Alan Chanel MD) Housing: House Alcohol intake: never Patient Tobacco Use Status: Former Tobacco user Tobacco use type: Cigarette Cigarette Packs Per Day: 2 Cigarettes Per Day: 40 Smoked in Last 30 Days: No e-Cigarette/Vaping Use: Never Used Second Hand Smoke Exposure: Yes Use of substances other than those prescribed or required for medical reasons: No Advance Directives: Yes Advance Directives on File: Yes Advance Directives Date on File: 04/10/24 service: No Current occupational status: retired Cognitive needs: No Hearing needs: Yes Vision needs: Yes (Glasses) Physical Exam ED Vital Signs: Vital Signs - 24 hr 04/10/24 10:12 04/10/24 11:09 04/10/24 12:38 Temperature 98.1 F 98.0 F Pulse Rate 79 81 83 Respiratory Rate 16 16 Blood Pressure 139/69 153/74 H 153/83 H Pulse Oximetry 96 97 91 L Oxygen Delivery Method Room Air Room Air 04/10/24 14:26 04/10/24 19:44 04/11/24 03:46 Temperature 97.6 F 98.0 F 97.8 F Pulse Rate 88 86 76 Respiratory Rate 16 18 12 Blood Pressure 148/71 H 132/63 150/78 H Pulse Oximetry 95 91 L 96 Oxygen Delivery Method Room Air Room Air Room Air 04/11/24 08:44 Temperature 98.2 F Pulse Rate 82 Respiratory Rate 16 Blood Pressure 115/56 L Pulse Oximetry 96 Oxygen Delivery Method Room Air BMI result Body Mass Index 19.1 Vital signs have been reviewed and appear to be correct. Blood pressure normal. Heart rate normal. Respiratory rate normal. Temperature normal. Oxygen saturation normal. Const General: cooperative, healthy appearing and no acute distress Orientation/consciousness: oriented to person, oriented to place, oriented to time and patient oriented x3 Limitations: no limitations HENMT Head: Yes normocephalic and Yes atraumatic Ears: external ears normal General nose exam: Normal external nose present Face and sinus: Yes face symmetric Mouth: oropharynx normal and moist mucous membranes Throat: Yes uvula midline Eyes Pupils: Equal, round and reactive pupils present Neck Neck: Yes normal visual inspection and Yes supple Resp Effort & Inspection: normal respiratory effort and able to speak in complete sentences Auscultation: clear to auscultation bilaterally Cardio Rate: regular rate Rhythm: regular rhythm Heart sounds: S1 normal heart sound present and S2 normal heart sound present GI Palpation (GI): Soft to palpation and nontender Auscultation: normoactive bowel sounds General: Yes no CVA tenderness Back/Spine/Pelvis Back: no CVA tenderness Skin General skin exam: elasticity normal and turgor normal Neuro General: oriented to person, oriented to place, oriented to time, patient oriented x3, moves all extremities, no focal motor deficits and CN's II-XI intact bilaterally Cranial nerves: Yes Equal, round and reactive pupils present Cognition (Neuro): normal cognition Extrem General: Yes full ROM and Yes no pedal edema Left lower extremity: knee Details: tenderness Location: of the medial joint line, swelling, normal ROM and knee ligament exam normal; no unusual warmth, lower leg Details: erythema Location: of the distal lower leg Location: anteriorly, tenderness Location: of the posterior calf, no edema and warmth Location: of the distal lower leg; no palpable cords and foot Details: vascular exam Details: dorsalis pedis pulse present, posterior tibial pulse present and normal capillary refill Psych Mental Status: mental status grossly normal Affect: normal affect Thought process: Normal thought process present Course Course Course Narrative: Per Princess from , patient will be discharged to [facility] tomorrow at 1pm. Reevaluation(s) Reevaluation #1: [facility] 04/11 @ 13:00 assisted w/ disposition. I agree with plan. Time: 10:08 Medications Administered Generic Name Dose Route Start Last Admin Trade Name Freq PRN Reason Stop Dose Admin Cephalexin HCl 500 mg 04/10/24 13:00 04/11/24 08:00 Cephalexin 500 Mg Capsule PO 04/17/24 12:59 500 mg QID SKIP Administration Ibuprofen 400 mg 04/10/24 10:13 04/11/24 07:58 Ibuprofen 400 Mg Tablet PO 400 mg Q6H PRN Administration Pain, Moderate(Pain Scale 4-6) Morphine Sulfate 15 mg 04/10/24 10:13 04/10/24 20:02 Morphine Sulfate Immed Release 15 Mg Tablet PO 15 mg Q4H PRN Administration Pain, Severe (Pain Scale 7-10) Medical Decision Making Medical Decision Making [facility] Narrative: Patient is a 73-year-old female with history of COPD, hypertension, anemia, lumbar compression fractures, osteoporosis, neuropathy, hearing impairment presenting to emergency department with complaint of worsening left knee pain over the past few weeks. On exam patient is awake, A+Ox3, VS WNL, afebrile, normal neurological exam without focal deficits, physical exam findings as above. Given reported symptoms and physical exam findings, initial differential includes DVT, cellulitis, Dias's cyst, osteoarthritis. Do not suspect septic joint as patient has full ROM, is afebrile. X-ray notable for mildly displaced medial tibial plateau fracture not noted on 04/02 exam. Ultrasound notable for no evidence of DVT, + Dias's cyst. My interpretation is in agreement with the radiologist's interpretation. Patient updated on results and all questions answered. Case discussed with yony Palomares, who recommends knee immobilizer, nonweightbearing, crutches or walker and follow-up outpatient. Knee immobilizer ordered, advised patient she will need to be nonweightbearing and follow-up with orthopedics outpatient. Erythema to distal lower leg also consistent with cellulitis, will start patient on cephalexin 500mg four times daily for seven days. Physical therapy evaluation and case management ordered as patient lives alone, feels she will be unable to manage at home nonweightbearing. Placed on physician observation at this time pending PT/CM evals. Differential Diagnosis Differential Diagnoses: The differential diagnosis associated with the presentation includes As per [facility] Admission/Observation Consideration of admission/observation: Escalation of care including admission/observation considered Patient would have been admitted to the hospital had their work up had any findings where hospital admission was appropriate and their clinical presentation warranted hospital admission. Consult Healthcare Provider Management of the patient was discussed with: Surface Lay Out Technician (SHIKHA Palomares) Lab Data Labs: Lab Results 04/10/24 Range/Units 09:58 COVID-19 (MONALISA) Negative (Negative) COVID-19 Clin Com See Note Independent Interpretation I performed an independent interpretation of an: Plain X-Ray and Ultrasound Interpretation: Ultrasound notable for no evidence of DVT, + Dias's cyst. X-ray left knee shows medial tibial plateau fracture not noted on 04/02 exam. Radiology Impression Discussion of test interpretation with radiology: I have reviewed the radiologist's reading. Radiologist Impression: US/US venous duplex LE LT IMPRESSION: No evidence of deep venous thrombosis involving the left lower extremity. Dias's cyst measuring 2.8 cm. XR/XR knee LT 4V IMPRESSION: 1. Medial tibial plateau findings suspicious for a mildly displaced fracture. Findings new from the prior study of 04/02/2024. 2. Mild degenerative changes as above. 3. No significant effusion. Independent Historian Clinical information obtained from an independent historian. History obtained from or confirmed by: Other (sister) External Record Review External record reviewed: Inpatient record, Office record and Outpatient record Prescription Management I considered prescription management with: Antibiotic Critical Care Time Critical Care Time Critical Care Time: Yes Total Critical Care Time: 36 Attestation: I have personally provided critical care time exclusive of time spent on separately billable procedures. Time includes review of lab data, radiology results, discussion with consultants, and monitoring for potential decompensation. Intervention performed as documented. Discharge Plan Discharge Clinical Impression: Cellulitis of left leg Closed fracture of tibial plateau Qualifiers: Encounter type: initial encounter Laterality: left Qualified Code(s): S82.142A - Displaced bicondylar fracture of left tibia, initial encounter for closed fracture Dias's cyst of knee Qualifiers: Laterality: left Qualified Code(s): M71.22 - Synovial cyst of popliteal space [Idas], left knee Patient Disposition: Home, Self-Care Instructions: Leg Fracture (ED), Cellulitis (DC), Knee Immobilizer (ED) Additional Instructions: You were evaluated in the emergency department today for left knee pain. Your x-ray show evidence of a tibial plateau fracture. You were placed in a knee immobilizer and you should not bear any weight on your left leg until you follow-up with orthopedics. You are also being treated for cellulitis which is a skin infection with antibiotics. Complete the full course as prescribed. Follow up with the orthopedic office outpatient for further evaluation and management of your fracture. Return to the emergency department with any new or concerning symptoms. Prescriptions: No Action lorazepam 0.5 mg tablet 0.5 mg PO BID PRN (Reason: anxiety) 30 Days Qty: 60 1RF albuterol sulfate 90 mcg/actuation HFA aerosol inhaler 2 puff PO QID PRN (Reason: for wheezing) Qty: 18 2RF naproxen 500 mg tablet 500 mg PO BID PRN (Reason: for pain) Qty: 180 1RF lisinopril 5 mg tablet 5 mg PO DAILY Qty: 90 1RF lidocaine [Lidoderm] 5 % adhesive patch,medicated 2 patch topical DAILY Qty: 30 0RF Rx Instructions: leave on most painful area for up to 12 hrs tramadol 50 mg tablet 50 mg PO Q8H PRN (Reason: pain) Qty: 10 0RF aspirin [Doyle Chewable Aspirin] 81 mg tablet,chewable 81 mg PO DAILY calcium carbonate [Calcium 600] 600 mg calcium (1,500 mg) tablet 600 mg PO DAILY nicotine 14 mg/24 hr patch 24 hour 1 patch transdermal DAILY 7 Days Qty: 7 0RF nicotine 7 mg/24 hr patch 24 hour 1 patch transdermal Q24H 28 Days Qty: 28 5RF sertraline 50 mg tablet 50 mg PO DAILY 30 Days Qty: 30 5RF gabapentin 100 mg capsule 100 mg PO BEDTIME 30 Days Qty: 30 5RF Referrals: [facility] [Other] [facility] [facility] [Provider Group] - 1 week (Left tibial plateau fracture) Print Language: Thai
--- NOTE | 2024-04-10 07:00 | PC.NURSE ---
Report taken from TITO Leiva and Lucrecia RN
[2024-04-10 10:18] LABS: COVID-19 Test Negative (Negative); IDNOW Serial# 08D9AD1C
[2024-04-10] MEDS: Morphine Sulfate Immed Release 15 MG TABLET PO ×2 (10:54→20:02)
--- NOTE | 2024-04-10 13:34 | PC.NURSE ---
Per CM - pt. is going to [facility] tomorrow, 04/11, at 13:00
[2024-04-10] MEDS: cephALEXin 500 MG CAPSULE PO ×3 (13:56→20:02)
--- NOTE | 2024-04-10 13:56 | MHC.CM.ED ---
Received case management consult from Sade SCRUGGS. Patient came to the ER after a fall. Found to have a left tibial plateau fx. Physical therapy eval completed. Acute rehab is recommended. Referral made to all 3 acute rehab facilities. [facility] is only facility able to offer a bed. Met with patient and sister, Melyssa, in regards to discharge planning. Patient lives alone, HCP completed, signed and witnessed. Original given to patient. Copy placed in chart. PCP verified. Patient accepts bed at [facility]. Patient can leave 04/11 at 1pm. Sharon EVANS booked. Med nec with chart. Patient, sister Christina Ragsdale RN and Sade SCRUGGS aware. Cotninue to monitor for d/c needs.
[2024-04-11 03:46] VITALS: BP 150/78; PULSE 76; RESP 12; TEMP 36.6; O2SAT 96
[2024-04-11] MEDS: Ibuprofen 400 MG TABLET PO ×2 (07:58→13:01)
[2024-04-11] MEDS: cephALEXin 500 MG CAPSULE PO ×2 (08:00→13:01)
[2024-04-11 08:44] VITALS: BP 115/56; PULSE 82; RESP 16; TEMP 36.8; O2SAT 96
--- NOTE | 2024-04-11 10:26 | MHC.CM.PN ---
PT DISCHARGING TO [facility] AT 1PM TODAY VIA [place] FOR BLS TRANSPORT, CM MET W/PT WHO REQUESTS CM CONTACT HER SISTER MAR TO REQUEST SHE BRING HER PILL ORGANIZER TO [facility] WHEN SHE VISITS, CM DID LET PT KNOW ALL OF HER HOME MEDS WILL BE GIVEN TO HER AT [facility], CM VERIFIED W/[facility] PT DC TIME.
[2024-04-11 13:23] VITALS: BP 165/98; PULSE 84; RESP 16; TEMP 36.6; O2SAT 96
--- NOTE | 2024-04-11 13:23 | PC.NURSE ---
patient a&ox3,, family at bedside, pts vss, rr equal/non labored, pt medicated with prn meds for 5-6/10 lle pain. pt took meds whole with water. pt has +csm/pulses lle, it was noted pt had no brace applied but it had been ordered, this nurse asked the tech to apply the brace as pt is to be discharged to [facility]. call melgoza is within reach, will continue to monitor
--- NOTE | 2024-04-11 13:28 | PC.NURSE ---
[facility]- this nurse attempted to call nurse to nurse report to facility at [phone] and the phone just rang without answer. will attempt again if unable to get through will notify ems to have the nurse call for report if needed.
[2024-04-11 14:30] VITALS: BP 165/98; PULSE 84; RESP 16; TEMP 36.6; O2SAT 96
== END 2024-04-11 14:31 | disposition home or self-care (01) ==
PROVIDERS: Registered Nurse Emergency; Emergency Provider Emergency Medicine Emergency Medical Services; PCP Internal Medicine
DX: L03.116 Cellulitis of left lower limb (principal); M71.22 Synovial cyst of popliteal space [Baker], left knee; S82.142A Displaced bicondylar fracture of left tibia, initial encounter for closed fracture; W01.0XXA Fall on same level from slipping, tripping and stumbling without subsequent striking against object, initial encounter; M79.605 Pain in left leg; E78.00 Pure hypercholesterolemia, unspecified; Z87.891 Personal history of nicotine dependence; Z11.52 Encounter for screening for COVID-19; Y93.9 Activity, unspecified; Y92.9 Unspecified place or not applicable; Y99.9 Unspecified external cause status
CPT/HCPCS: 73564; 87635; 93971; 97162; 99284

== ENCOUNTER 2024-04-20 09:00 | Outpatient (REF) | payer MEDICARE, MEDICAID, SELFPAY ==
--- NOTE | ~2024-04-20 | XR_ITS ---
EXAMINATION: XR LEFT KNEE CLINICAL INFORMATION: Pain in unspecified knee M25.569. COMPARISON: XR Left knee 04/10/2024 , and dating back to 03/25/2024. TECHNIQUE: Two views of the left knee. FINDINGS: Mild diffuse osteopenia. No significant interval change in the appearance of the tibial metaphyseal fracture. Alignment is unchanged. Fracture lines are less distinct and sclerotic indicating healing. No new fractures. No suspicious bony lesions. There is chondrocalcinosis in the medial lateral compartments , with moderate medial compartment joint space narrowing. There is spurring of the tibial spines. Soft tissues demonstrate a small suprapatellar joint effusion. There are vascular calcifications. XR/XR knee LT 3V IMPRESSION: Healing tibial fracture in anatomic alignment. Electronically signed by: Anurag Crow MD 04/27/2024 08:52 AM K[facility]RIN
== END 2024-04-20 09:01 | disposition home or self-care (01) ==
LOC: HO.HOSX 09:00
PROVIDERS: Visit Provider Physician Assistant
DX: M25.562 Pain in left knee (principal); S82.142A Displaced bicondylar fracture of left tibia, initial encounter for closed fracture
CPT/HCPCS: 73562; 99202

== ENCOUNTER 2024-04-20 09:40 | Outpatient (AMB) | payer MEDICARE, MEDICAID, SELFPAY ==
--- NOTE | 2024-04-20 11:03 | MHC.OFFVIS ---
Intake Visit Reasons: ED f/u Lt tibial plateau fracture Intake Note: Trevon is a 73 year old female who presents to the office today for an ED f/u Lt tibial plateau fracture, DOI a couple days after Thankgiving. Patient states she has worsening left knee pain over the past few weeks. Patient was put in a knee immobilizer and was instructed to remain non-weight bearing. Patient states her pain is still constant but it has gotten a bit better. Allergies No Known Allergies [No Known Allergies*] Allergy (Verified 04/20/24 11:04) HPI HPI ED f/u Lt tibial plateau fracture: Details: 73-year-old female who presents in the office today, as a new patient, for an evaluation of left tibial plateau fracture. The patient presented to the ED on 04/02/24 status post lost her care management assistant and had a mechanical trip and fell down two stairs, which occurred on 04/01/24. She fell in a seated position, landing on her bottom. She mentioned pain diffusely across her lower back but worse on the left side and also has left knee pain. She has tried Tylenol without any relief and naproxen with mild improvement. X-rays of the sacrum, coccyx, and left knee were obtained in the ER. She was prescribed tramadol 50 mg PO Q8H PRN and lidocaine patches to help with the pain. She returned to the ED on 04/10/24 due to worsening left knee pain. She had an ultrasound of the lower extremities in the ER. She was placed in a knee immobilizer and recommended to remain non-weight bearing. She was started on cephalexin 500 mg four times daily for seven days to treat cellulitis. She was referred to our [facility] for further evaluation. While in the office today, the patient reports left knee pain that has been worsening for the past few weeks. She mentions constant left knee pain; however, she has noticed a mild improvement in the pain. She was provided with a knee immobilizer and instructed to remain non-weight bearing.? [facility] Medical History De Quervain's tenosynovitis, left Arthritis of hand, left, degenerative Hearing impairment Smoker Depression Anxiety Osteoporosis Urinary urgency Urinary incontinence Varicose veins of bilateral lower extremities with pain Peripheral polyneuropathy Pure hypercholesterolemia Anemia Compression fracture of L4 vertebra with routine healing Lumbar degenerative disc disease Benign essential hypertension COPD (chronic obstructive pulmonary disease) Surgical History History of cystoscopy History of bilateral cataract extraction Family History Father No problems noted. Mother Lung cancer Sister Down syndrome Maternal Grandfather Lung cancer Maternal Grandmother Lung cancer Social History (Updated 02/05/24 @ 09:52 by Alan Chanel MD) Housing: House Alcohol intake: never Patient Tobacco Use Status: Former Tobacco user Tobacco use type: Cigarette Cigarette Packs Per Day: 2 Cigarettes Per Day: 40 e-Cigarette/Vaping Use: Never Used Second Hand Smoke Exposure: Yes Advance Directives Date on File: 04/10/24 service: No Current occupational status: retired Cognitive needs: No Hearing needs: Yes Vision needs: Yes (Glasses) Review of Systems Const All systems reviewed & are unremarkable except as noted in HPI and below Physical Exam Const General: cooperative and no acute distress Orientation/consciousness: patient oriented x3 Resp Effort & Inspection: normal respiratory effort and able to speak in complete sentences Cardio Peripheral pulses: Peripheral pulses 2+ throughout Skin General skin exam: no rashes or lesions noted Neuro General: patient oriented x3 Extrem Other: Left knee: Normal to inspection. No ecchymosis, erythema, or joint effusion. Tenderness to palpation along the lateral joint line. No tenderness to palpation medial joint line. Reports a burning and tingling sensation on the anterior aspect of the mid sanchez. Able to perform flexion and plantar flexion on the left, but is significantly weaker than the right. Pedal pulse intact. Office Procedures AMB Fracture Care Fracture Billing Code: Fracture Billing Code Assessment & Plan Assessment & Plan (1) Fracture of left tibial plateau: Code(s): S82.142A - Displaced bicondylar fracture of left tibia, initial encounter for closed fracture Category: Medical Plan Ms. Lester is a 73-year-old female who presents in the office today, as a new patient, for an evaluation of left tibial plateau fracture. The patient presented to the ED on 04/02/24 status post lost her care management assistant and had a mechanical trip and fell down two stairs, which occurred on 04/01/24. She fell in a seated position, landing on her bottom. She mentioned pain diffusely across her lower back but worse on the left side and also has left knee pain. She has tried Tylenol without any relief and naproxen with mild improvement. X-rays of the sacrum, coccyx, and left knee were obtained in the ER. She was prescribed tramadol 50 mg PO Q8H PRN and lidocaine patches to help with the pain. She returned to the ED on 04/10/24 due to worsening left knee pain. She had an ultrasound of the lower extremities in the ER. She was placed in a knee immobilizer and recommended to remain non-weight bearing. She was started on cephalexin 500 mg four times daily for seven days to treat cellulitis. She was referred to our [facility] for further evaluation. While in the office today, the patient reports left knee pain that has been worsening for the past few weeks. She mentions constant left knee pain; however, she has noticed a mild improvement in the pain. She was provided with a knee immobilizer and instructed to remain non-weight bearing. She was placed into an ACL brace, off the shelf. He should remain in the ACL brace at all times. The brace can be unlocked while she is sedentary and should be locked at 0 degree in extension while ambulating. She should be non-weight bearing for roughly 3 months. Follow-up will be in 4 weeks, or sooner if needed. X-rays of the sacrum coccyx, obtained on 04/02/24, revealed: 1. No displaced fracture. 2. Moderate stool burden. X-rays of the left knee, obtained on 04/02/24, revealed: 1. No acute fracture or dislocation. 2. Mild medial compartment joint space narrowing. Faint medial and lateral compartment chondrocalcinosis. X-rays of the lumbar spine, obtained on 04/02/24, revealed: 1. No acute fracture or subluxation. Chronic compression deformities L3 and L5 are unchanged. 2. Levocurvature of the lumbar spine with multilevel degenerative disc disease and bilateral facet arthropathy, unchanged. Ultrasound of the lower extremities, obtained on 04/10/24, revealed: No evidence of deep venous thrombosis involving the left lower extremity. Dias's cyst measuring 2.8 cm. X-rays of the left knee, obtained on 04/10/24, revealed: 1. Medial tibial plateau findings suspicious for a mildly displaced fracture. Findings new from the prior study of 04/02/2024. 2. Mild degenerative changes as above. 3. No significant effusion. Orders: Orders XR knee LT 3V 04/20/24 M25.569 - Pain in unspecified knee Patient Instructions: Scribed by [facility], for Marielle Donovan STEPHENSON on 04/20/24 at 11:26 am EST. Coding Level of Care Code New Pt Level 4 (08347) Complex EM visit Add On G2211 Diagnoses Fracture of left tibial plateau S82.142A CPT Codes Fracture Care - Fracture Billing Code: Fracture Billing Code ([id number])
== END 2024-04-20 11:44 | disposition home or self-care (01) ==
PROVIDERS: PCP Internal Medicine; Visit Provider Physician Assistant
DX: S82.142A Displaced bicondylar fracture of left tibia, initial encounter for closed fracture (principal)
CPT/HCPCS: 99204; G2211

== ENCOUNTER → 2024-04-20 09:44 | Outpatient (BNV) | payer MEDICARE, MEDICAID, SELFPAY | PROVIDERS: Visit Provider Radiology Diagnostic Radiology | DX: S82.142D Displaced bicondylar fracture of left tibia, subsequent encounter for closed fracture with routine healing (principal); W10.8XXD Fall (on) (from) other stairs and steps, subsequent encounter | CPT/HCPCS: 73560 ==

== ENCOUNTER 2024-04-24 14:08 | Inpatient (IN) | payer MEDICARE, MEDICAID, SELFPAY ==
[2024-04-24 14:26] VITALS: BP 122/80; BP 128/63; PULSE 85; PULSE 88; RESP 18; TEMP 36.7; O2SAT 95; BMI 18.2
[2024-04-24 15:12] LABS: MANUAL DIFF FLAG NO
[2024-04-24 15:16] LABS: Basophils Percent Auto 0.2 % (0-2); Hematocrit 32.6 % (37.0-47.0); Hemoglobin 11.6 g/dl (12.0-16.0); Imm Gran Abs Auto 0.01 X10*3/uL (0.00-0.03); Imm Gran Pct Auto 0.2 % (0.0-0.4); Lymphocytes Absolute Auto 0.7 X10*3/uL (1.2-4.9); Lymphocytes Percent Auto 16.3 % (20-40); Mean Corpuscular HGB Conc 35.6 g/dl (31.0-35.0); Mean Corpuscular Hemoglobin 28.6 pg (27.0-33.0); Mean Corpuscular Volume 80.5 fL (80.0-98.0); Mean Platelet Volume 7.6 fL (9.4-12.3); Monocytes Absolute Auto 0.4 X10*3/uL (0.1-1.2); Monocytes Percent Auto 10.4 % (2-11); Neutrophils Percent Auto 72.9 % (45-73); Platelet Count 340 X10*3/uL (160-400); Red Blood Count 4.05 X10*6/uL (4.20-5.50); Red Cell Distribution Width 12.9 % (11.0-16.0); White Blood Count 4.1 X10*3/uL (4.8-10.8)
[2024-04-24 15:20] LABS: INTERNATIONAL NORM RATIO 1.3 (0.9-1.1)
--- NOTE | 2024-04-24 15:27 | ED_ITS ---
HPI - General Adult General Chief complaint: General Medical Stated complaint: DIFFICULTY AMBULATING Time Seen by Provider: 04/24/24 14:49 Source: patient and EMS Mode of arrival: EMS Limitations: no limitations History of Present Illness ED Provider: Christina Pack NP HPI narrative: Patient is a 73-year-old female with past medical history of COPD, hypertension, anemia, lumbar compression fractures, osteoporosis, neuropathy presenting to the emergency department today for evaluation, she was discharged yesterday from [facility] rehab, by her account was unable to ambulate once getting home. She states that while at [facility] she was primarily in a wheelchair and staff was assisting her with transfers from chair to bed/bathroom. Plan was for her to be discharged home with [facility]/in-home PT. When [facility] arrived today they did not feel that she was safe to remain home independently. She lives alone but has help from her sister to care for her. She reports that she continues to have left knee pain, ongoing since injury without worsening.. She denies any additional physical complaints at this time. No redness pain swelling numbness or tingling to the extremity. No chest pain or shortness of breath. Related Data Home Medications ?Medication ?Instructions ?Recorded ?Confirmed aspirin 81 mg chewable tablet 81 mg PO DAILY 02/22/20 02/05/24 (Doyle Chewable Low Dose Aspirin) calcium carbonate (Calcium 600) 600 mg PO DAILY 01/10/22 02/05/24 Previous Rx's ?Medication ?Instructions ?Recorded lorazepam 0.5 mg tablet 0.5 mg PO BID PRN anxiety 30 days 11/14/22 #60 tabs albuterol sulfate 90 mcg/actuation 2 puff PO QID PRN for wheezing #18 06/23/23 aerosol inhaler ea nicotine 14 mg/24 hr daily 1 patch transdermal DAILY 7 days 08/06/23 transdermal patch #7 ea nicotine 7 mg/24 hr daily 1 patch transdermal Q24H 28 days 08/06/23 transdermal patch #28 ea gabapentin 100 mg capsule 100 mg PO BEDTIME neuropathic leg 02/05/24 pain and low back pain 30 days #30 caps sertraline 50 mg tablet 50 mg PO DAILY 30 days #30 tabs 02/05/24 naproxen 500 mg tablet 500 mg PO BID PRN for pain #180 02/21/24 tabs lisinopril 5 mg tablet 5 mg PO DAILY #90 tabs 10/24/24 lidocaine 5 % topical patch 2 patch topical DAILY #30 ea 04/02/24 (Lidoderm) tramadol 50 mg tablet 50 mg PO Q8H PRN pain #10 tabs 04/02/24 Allergies Allergy/AdvReac Type Severity Reaction Status Date / Time No Known Allergies Allergy Verified 04/24/24 14:28 [No Known Allergies*] Review of Systems 2 Review of Systems: Yes all other systems are reviewed and are negative PMFSH Past Medical History Attestation statement: The following information was validated with the patient. Source: old records reviewed Medical History De Quervain's tenosynovitis, left Arthritis of hand, left, degenerative Hearing impairment Smoker Depression Anxiety Osteoporosis Urinary urgency Urinary incontinence Varicose veins of bilateral lower extremities with pain Peripheral polyneuropathy Pure hypercholesterolemia Anemia Compression fracture of L4 vertebra with routine healing Lumbar degenerative disc disease Benign essential hypertension COPD (chronic obstructive pulmonary disease) Surgical History History of cystoscopy History of bilateral cataract extraction Family History Family History Father No problems noted. Mother Lung cancer Sister Down syndrome Maternal Grandfather Lung cancer Maternal Grandmother Lung cancer Social History Social History Housing: House Alcohol intake: never Patient Tobacco Use Status: Former Tobacco user Tobacco use type: Cigarette Cigarette Packs Per Day: 2 Cigarettes Per Day: 40 Smoked in Last 30 Days: No e-Cigarette/Vaping Use: Never Used Second Hand Smoke Exposure: Yes Use of substances other than those prescribed or required for medical reasons: No Advance Directives: Yes Advance Directives on File: Yes Advance Directives Date on File: 04/10/24 Do you have a plan to hurt others: No Plan service: No Current occupational status: retired Cognitive needs: No Hearing needs: Yes Vision needs: Yes (Glasses) Physical Exam ED Vital Signs: Vital Signs - 24 hr 04/24/24 14:26 04/24/24 17:46 Temperature 98.0 F 97.9 F Pulse Rate 85 79 Respiratory Rate 18 18 Blood Pressure 128/63 129/70 Pulse Oximetry 95 97 Oxygen Delivery Method Room Air Room Air BMI result Body Mass Index 18.2 Appearance: Alert.?Oriented to person, place and time. No acute distress.?Normal affect. Eyes: Pupils equal, round and reactive to light.? ENT: Pharynx normal.?? Neck: Normal inspection.? Neck supple.?? CVS: Heart sounds normal. Normal heart rate and rhythm.? Pulses normal.?? Respiratory: No respiratory distress.? Lung sounds clear to auscultation bilaterally?? Abdomen: Soft and non-tender. Normoactive bowel sounds. ? Skin: Skin warm and dry.? Normal skin color.? Extremities: No lower extremity edema.? No calf ttp? Neuro: Moves all extremities spontaneously. Sensation intact bilaterally. Course Reevaluation(s) Reevaluation #1: On review of serum labs she is noted to be hypokalemic at 2.7 and hyponatremic with sodium of 129. She has hand low-sodium levels previously with this appears to be the lowest. When asked she does state that she does not typically consume large amount of water, this may be a part due to dehydration, does not appear as though she is on any diuretics. Will obtain further labs for evaluation including serum osmolality, urine sodium/osmolality. Potassium to be replaced with 40 mEq IV and 40 mEq p.o., in addition to 1 g sodium chloride tablet. Reevaluation #2: Patient is endorsing mild nausea at this time. Reports that she has not otherwise recently been experiencing nausea, no episodes of vomiting and/or diarrhea. Time: 16:50 Medications Administered Generic Name Dose Route Start Last Admin Trade Name Freq PRN Reason Stop Dose Admin Enoxaparin Sodium 40 mg 04/24/24 20:00 04/24/24 20:58 Enoxaparin Sodium 40 Mg/0.4 Ml Syringe SUBCUT 40 mg Q24H SKIP Administration Oxycodone HCl 5 mg 04/24/24 20:25 04/24/24 20:58 Oxycodone Hcl Immed Release 5 Mg Tablet PO 5 mg Q6H PRN Administration Pain, Severe (Pain Scale 7-10) Discontinued Medications Generic Name Dose Route Start Last Admin Trade Name Freq PRN Reason Stop Dose Admin Gabapentin 100 mg 04/24/24 20:31 04/24/24 20:59 Gabapentin 100 Mg Capsule PO 04/24/24 20:32 100 mg ONCE ONE Administration Potassium Chloride 10 meq in 100 mls @ 100 mls/hr 04/24/24 16:00 04/24/24 20:46 Potassium Chloride/H20 IV 04/24/24 19:59 100 mls/hr Q1H SKIP Administration Ondansetron HCl 4 mg 04/24/24 16:48 04/24/24 17:04 Ondansetron Hcl 4 Mg/2 Ml Vial IVPUSH 04/24/24 16:49 4 mg ONCE ONE Administration Potassium Chloride 40 meq 04/24/24 15:55 04/24/24 16:36 Potassium Chloride Packet 20 Meq Packet PO 04/24/24 15:56 40 meq ONCE ONE Administration Sodium Chloride 1 gm 04/24/24 15:55 04/24/24 18:23 Sodium Chloride Tab 1 Gm Tablet PO 04/24/24 15:56 1 gm ONCE ONE Administration Medical Decision Making Medical Decision Making [facility] Narrative: Patient is a 73-year-old female with past medical history of COPD, hypertension, anemia, lumbar compression fractures, osteoporosis, neuropathy presenting to emergency department today for report of worsening left knee pain and inability to ambulate once discharged home today from acute rehab; [facility]. She had initial fall on 03/02/2024 with report of left knee pain initial x-ray imaging without evidence of fracture, had a 2nd visit to the ED 04/10/2024 with x-ray showing a mildly displaced medial plateau fracture, venous duplex ultrasound negative for DVT there was additionally a Dias cyst. At this time she was placed in a knee immobilizer, advised nonweightbearing status from Orthopedics and crutches/walker with plan for follow-up outpatient. On review of medical records she sought orthopedic 04/20/2024, she was placed in an ACL brace with advised him that it may be unlocked while she is sedentary and should be locked at 0 degrees and extension while ambulating, but should be a nonweightbearing status for roughly 3 months plan for outpatient follow-up in 4 weeks or sooner if needed. Extremity is neurovascularly intact distally. No evidence of cellulitis on examination, low clinical suspicion for DVT. Will refer to Physical therapy and case management evaluation for possible placement to short- term rehab for assistance with transfers given nonweightbearing status on the left, versus respite stay. Differential Diagnosis Differential Diagnoses: The differential diagnosis associated with the presentation includes (See narrative above) Admission/Observation Consideration of admission/observation: Escalation of care including admission/observation considered (See narrative above) Consult Healthcare Provider Management of the patient was discussed with: Hospitalist Spoke with hospitalist, Dr. Hobbs for admission to medicine service further evaluation and management of electrolyte derangements. 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 (See course narrative) 04/24/24 15:05 04/24/24 15:05 Labs: Lab Results 04/24/24 04/24/24 04/24/24 Range/Units 15:05 16:42 17:45 WBC 4.1 L (4.8-10.8) X10*3/uL RBC 4.05 L (4.20-5.50) X10*6/uL Hgb 11.6 L (12.0-16.0) g/dl Hct 32.6 L (37.0-47.0) % MCV 80.5 (80.0-98.0) fL MCH 28.6 (27.0-33.0) pg MCHC 35.6 H (31.0-35.0) g/dl RDW 12.9 (11.0-16.0) % Plt Count 340 (160-400) X10*3/uL MPV 7.6 L (9.4-12.3) fL Immature Gran % (Auto) 0.2 (0.0-0.4) % Neut % (Auto) 72.9 (45-73) % Lymph % (Auto) 16.3 L (20-40) % [place] % (Auto) 10.4 (2-11) % Eos % (Auto) 0.0 (0-4) % Baso % (Auto) 0.2 (0-2) % Lymph # (Auto) 0.7 L (1.2-4.9) X10*3/uL [place] # (Auto) 0.4 (0.1-1.2) X10*3/uL Eos # (Auto) 0.0 (0.0-0.4) X10*3/uL Baso # (Auto) 0.0 (0.0-0.2) X10*3/uL Abs Immat Gran (auto) 0.01 (0.00-0.03) X10*3/uL Absolute Neuts (auto) 3.0 (2.0-8.3) x10*3/uL Absolute Nucleated RBC 0.000 (0.0-0.012) X10*3/uL Nucleated RBC % (auto) 0.0 (0.0-0.2) /100WBC PT 15.0 H (10.9-12.4) SEC INR 1.3 H (0.9-1.1) Sodium 129 L (135-145) mmol/L Potassium 2.7 L* D (3.3-5.1) mmol/L Chloride 91 L (96-108) mmol/L Carbon Dioxide 28 (22-29) mmol/L Anion Gap 13 (12-20) BUN 7 L (9-16) mg/dL Creatinine 0.59 (0.5-1.4) mg/dL Estim Creat Clear Calc 67.6 Estimated GFR > 60 Random Glucose 125 H (60-115) mg/dL Osmolality 257 L (281-305) mosm/kg Calcium 8.9 D (8.4-10.2) mg/dL Magnesium 1.7 (1.6-2.6) mg/dL Urine Color Yellow Urine Appearance Clear Urine pH 7.5 (5.0-9.0) Ur Specific [place] 1.010 (1.005-1.025) Urine Protein 30 (1+) H (Neg-Trace) mg/dL Urine Glucose (UA) Negative (Negative) mg/dL Urine Ketones 40 (Negative) mg/dL Urine Blood Negative (Negative) Urine Nitrite Negative (Negative) Ur Leukocyte Esterase Negative (Negative) Urine RBC 0-2 (0-2) /HPF Urine WBC 0-5 (0-5) /HPF Ur Squamous Epith Cells 0-2 (0-2) /HPF Urine Bacteria None Seen (None Seen) Hyaline Casts 0-2 (0-2) /LPF Urine Osmolality 327 L (373-1093) mosm/kg Ur Random Sodium 67.0 mmol/L Independent Historian Clinical information obtained from an independent historian. History obtained from or confirmed by: EMS and Other (Sister) External Record Review External record reviewed: Outpatient record (See narrative above) Chronic Conditions Patient?s care impacted by: Other (See narrative above) Critical Care Time Critical Care Time Critical Care Time: Yes Total Critical Care Time: 45 Attestation: I personally attest to this critical care time spent taking care of the patient exclusive of all other billable procedures was approximately 45 minutes including initial evaluation of patient, ordering tests, IV electrolyte replacement EKG interpretation, medical consultation, documentation, re- evaluation. Discharge Plan Discharge Clinical Impression: Acute hyponatremia, Acute hypokalemia Patient Disposition: Admitted As Inpatient
[2024-04-24 15:37] LABS: Anion Gap 13 (12-20); Blood Urea Nitrogen 7 mg/dL (9-16); Calcium 8.9 mg/dL (8.4-10.2); Carbon Dioxide 28 mmol/L (22-29); Chloride 91 mmol/L (96-108); Creatinine Clr Calc Pharmacy 67.6; Estimated Glomerular Filt Rate > 60; Glucose Random 125 mg/dL (60-115); Potassium 2.7 mmol/L (3.3-5.1); Sodium 129 mmol/L (135-145)
--- NOTE | 2024-04-24 15:55 | ECG_ITS ---
Test Reason : HYPOKALEMIA Blood Pressure : / mmHG Vent. Rate : 080 BPM Atrial Rate : 080 BPM P-R Int : 144 ms QRS Dur : 070 ms QT Int : 410 ms P-R-T Axes : 039 024 045 degrees QTc Int : 472 ms Sinus rhythm with Premature supraventricular complexes Anterior infarct , age undetermined Abnormal ECG No previous ECGs available Referred By: Christina Pack Electronically Signed By:JEISON RAY
[2024-04-24 16:26] LABS: Magnesium 1.7 mg/dL (1.6-2.6)
[2024-04-24] MEDS: Potassium Chloride/H20 10 MEQ/100 ML PIGGYBACK 100 MEQ IV ×4 (16:36→23:23)
[2024-04-24] MEDS: Potassium Chloride Packet 20 MEQ PACKET 40 MEQ PO (16:36)
[2024-04-24] MEDS: ondansetron HCL 4 MG/2 ML VIAL IVPUSH (17:04)
[2024-04-24 17:11] LABS: Osmolality, Serum 257 mosm/kg (281-305)
[2024-04-24 17:46] VITALS: BP 129/70; PULSE 79; RESP 18; TEMP 36.6; O2SAT 97
[2024-04-24 17:57] LABS: Appearance Urine Clear; Color Urine Yellow; Glucose Urine UA Negative (Negative); Leukocyte Esterase Urine Negative (Negative); Nitrite Urine Negative (Negative); PH 7.5 (5.0-9.0); UMIC TRIGGER UACC YES; Urine Blood Negative (Negative); Urine Ketones 40 mg/dL (Negative); Urine Protein 30 (1+) mg/dL (Neg-Trace)
--- NOTE | 2024-04-24 17:57 | MHC.CM.ED ---
Addendum entered by Bre Lopez 04/24/24 18:06: [facility] had concerns about patient's ability to safely remain at home. Sister cannot stay with her 26/11. Of note, patient's brother suddenly at patients home. Original Note: CM met with patient and her sister/HCP Melyssa ([phone]) at the request of Raul SCRUGGS. Pt is A&Ox3. [place]. Was at [facility] from 04/11-04/23. Pt fell and sustained a L tibial Fx on 04/10. She is non-weight bearing for 3 months. Pt lives alone. Her sister helps her. She was discharged from [facility] with [facility] services. Pt fell again today. Bathroom is not handicapped accessible. Pt Having difficulty transferring from her wheelchair. Pt and family are concerned that patient cannot safely care for herself at home. Pt has a qualifying stay. Will have PT assessment in the morning. Will place referrals for STR. [facility] is first choice. CM will follow for safe discharge planning.
[2024-04-24 17:59] LABS: Bacteria Urine None Seen (None Seen); Hyaline Casts Urine 0-2 /LPF (0-2); RBC Urine 0-2 /HPF (0-2); Squamous Epithelial Cell Urine 0-2 /HPF (0-2); WBC Urine 0-5 /HPF (0-5)
[2024-04-24] MEDS: Sodium Chloride Tab 1 GM TABLET PO (18:23)
[2024-04-24 18:34] LABS: Osmolality Urine 327 mosm/kg (373-1093)
--- NOTE | 2024-04-24 19:59 | PM.IMHP ---
History of Present Illness Date of Service: 04/24/24 Attending physician on admission: Zohaib Hobbs Chief Complaint: Weakness, unable to ambulate Pt is a 73-year-old female with a PMH significant for?HTN, chronic normocytic anemia, COPD, osteoporosis, neuropathy, and mood disorder who presents to the ED for evaluation of left knee pain and inability to take care of herself at home. Patient had a fall in March that resulted in a left knee fracture. Patient was initially at [facility] for rehab and discharged home 2 weeks ago. Patient lives alone and reports she was unable to properly ambulate once she got home. Initially received assistance by her sister who eventually was unable to keep up with the level of care needed and so VNA services came out for evaluation and felt patient was unable to safely take care of herself independently so she was sent to the ED for further evaluation. Patient complains of left knee pain and swelling that has worsened in the past few days. No fall at home or trauma to the area. Patient states has not been eating or drinking much at all since discharge secondary to pain and discomfort. Chronic lower extremity numbness and tingling secondary to neuropathy at baseline. Denies fever, chills, nausea, vomiting, abdominal pain. No diarrhea. Denies chest pain/pressure, palpitations. No shortness a breath or difficulty breathing. In the ED pt was's vitals were stable and WNL. Labs were significant for normocytic anemia of 11.6/32.6, sodium 129, potassium 2.7, chloride 91, serum osmolality low at 257, and urine osmolality low at 327. No leukocytosis. Renal function baseline. UA negative for UTI. X-ray of left knee pending. EKG demonstrated sinus rhythm with PACs and no evidence of significant ST elevations or depressions. Pt was treated with potassium chloride 10 mEq IV x2 doses and 40 mEq p.o., ondansetron, and sodium chloride 1 g p.o.. 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 Review of Systems Review of Systems: Negative except for that which is stated in the [facility] Medical History De Quervain's tenosynovitis, left Arthritis of hand, left, degenerative Hearing impairment Smoker Depression Anxiety Osteoporosis Urinary urgency Urinary incontinence Varicose veins of bilateral lower extremities with pain Peripheral polyneuropathy Pure hypercholesterolemia Anemia Compression fracture of L4 vertebra with routine healing Lumbar degenerative disc disease Benign essential hypertension COPD (chronic obstructive pulmonary disease) Family History Father No problems noted. Mother Lung cancer Sister Down syndrome Maternal Grandfather Lung cancer Maternal Grandmother Lung cancer Surgical History History of cystoscopy History of bilateral cataract extraction Social History Housing: House Alcohol intake: never Patient Tobacco Use Status: Former Tobacco user Tobacco use type: Cigarette Cigarette Packs Per Day: 2 Cigarettes Per Day: 40 Smoked in Last 30 Days: No e-Cigarette/Vaping Use: Never Used Second Hand Smoke Exposure: Yes Use of substances other than those prescribed or required for medical reasons: No Advance Directives: Yes Advance Directives on File: Yes Advance Directives Date on File: 04/10/24 Do you have a plan to hurt others: No Plan service: No Current occupational status: retired Cognitive needs: No Hearing needs: Yes Vision needs: Yes (Glasses) Meds Allergies Allergy/AdvReac Type Severity Reaction Status Date / Time No Known Allergies Allergy Verified 04/24/24 14:28 [No Known Allergies*] Active Medications: Current Medications Acetaminophen (Acetaminophen 325 Mg Tablet) 650 mg PO Q6H PRN PRN Reason: Pain, Mild (Pain Scale 1-3), fever or headache Calcium Carbonate (Calcium Carbonate 750 Mg Tab.Chew) 750 mg PO Q4H PRN PRN Reason: Heartburn Enoxaparin Sodium (Enoxaparin Sodium 40 Mg/0.4 Ml Syringe) 40 mg SUBCUT Q24H SKIP Potassium Chloride (Potassium Chloride/H20) 10 meq in 100 mls @ 100 mls/hr IV Q1H SKIP Stop: 04/24/24 19:59 Last Admin: 04/24/24 18:23 Dose: 100 mls/hr Magnesium Hydroxide (Milk Of Magnesia 30 Ml Oral.Susp) 30 ml PO DAILY PRN PRN Reason: Constipation Melatonin (Melatonin 3 Mg Tablet) 6 mg PO BEDTIME PRN PRN Reason: Insomnia Ondansetron HCl (Ondansetron Hcl 4 Mg/2 Ml Vial) 4 mg IVPUSH Q8H PRN PRN Reason: Nausea and Vomiting Sodium Chloride (0.9 % Sodium Chloride Flush 3 Ml Syringe) 3 ml IVFLUSH QSHIFT [facility] Home Medications ?Medication ?Instructions ?Recorded ?Confirmed ?Last Taken ?Type aspirin 81 mg chewable tablet 81 mg PO DAILY 02/22/20 02/05/24 Unknown History (Doyle Chewable Low Dose Aspirin) calcium carbonate (Calcium 600) 600 mg PO DAILY 01/10/22 02/05/24 Unknown History Physical Exam Vital Signs and Narrative: Vital Signs: Last Vital Signs Temp 97.9 F 04/24/24 17:46 Pulse 79 04/24/24 17:46 Resp 18 04/24/24 17:46 BP 129/70 04/24/24 17:46 Pulse Ox 97 04/24/24 17:46 O2 Del Method Room Air 04/24/24 17:46 BMI result Body Mass Index 18.2 Constitutional: Alert, frail-looking, in no acute distress. Mental Status: Oriented to person, place and time. Eyes: Pupils are equal, round, and reactive to light. Ear, Nose, and Throat: Oropharynx clear, mucous membranes moist. Ears and nose without deformities. Trachea midline. Respiratory: Clear to auscultation bilaterally. No wheezing, rales, or rhonchi. Cardiovascular: S1, S2 regular. No murmurs, rubs, or gallops. Gastrointestinal: Abdomen soft, non-tender, non-distended. Normal bowel sounds. Neurologic: Cranial nerves II-XII are grossly intact bilaterally. No focal neurological deficits. Moves all extremities spontaneously. Skin: Warm, dry. Extremities: No edema. Left knee diffusely tender to palpation. Psychiatric: Normal mood and affect. Results Labs 04/24/24 15:05 04/24/24 15:05 Labs: Laboratory Results - last 24 hr 04/24/24 04/24/24 04/24/24 15:05 16:42 17:45 MCV 80.5 MCH 28.6 MCHC 35.6 H RDW 12.9 Plt Count 340 MPV 7.6 L Immature Gran % (Auto) 0.2 Neut % (Auto) 72.9 Lymph % (Auto) 16.3 L [place] % (Auto) 10.4 Eos % (Auto) 0.0 Baso % (Auto) 0.2 Lymph # (Auto) 0.7 L [place] # (Auto) 0.4 Eos # (Auto) 0.0 Baso # (Auto) 0.0 Abs Immat Gran (auto) 0.01 Absolute Neuts (auto) 3.0 Absolute Nucleated RBC 0.000 Nucleated RBC % (auto) 0.0 PT 15.0 H INR 1.3 H Anion Gap 13 Estim Creat Clear Calc 67.6 Estimated GFR > 60 Random Glucose 125 H Osmolality 257 L Calcium 8.9 D Magnesium 1.7 Urine Color Yellow Urine Appearance Clear Urine pH 7.5 Ur Specific [place] 1.010 Urine Protein 30 (1+) H Urine Glucose (UA) Negative Urine Ketones 40 Urine Blood Negative Urine Nitrite Negative Ur Leukocyte Esterase Negative Urine RBC 0-2 Urine WBC 0-5 Ur Squamous Epith Cells 0-2 Urine Bacteria None Seen Hyaline Casts 0-2 Urine Osmolality 327 L Ur Random Sodium 67.0 Assessment and Plan (1) SIADH (syndrome of inappropriate ADH production): Status: Acute (2) Hyponatremia: Status: Acute (3) Hypokalemia: Status: Acute Plan Pt is a 73-year-old female with a PMH significant for?HTN, chronic normocytic anemia, COPD, osteoporosis, neuropathy, and mood disorder who presents to the ED for evaluation of left knee pain and inability to take care of herself at home. 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 Hyponatremia Patient's sodium 129 at time of presentation Secondary to SIADH: Serum osmolality low at 257, urine osmolality low at 327 Patient given sodium chloride in the ED Will place on fluid restriction Monitor sodium levels Hypokalemia Potassium 2.7 at time of presentation Likely secondary to reduced p.o. intake Patient received potassium 10 mEq IV x2 doses, 40 mEq p.o. Follow potassium Left knee pain Experienced left knee fracture secondary to fall in 03/2024 Was at [facility] rehab, discharged home 2 weeks ago Still currently experiencing left knee pain, unable to properly ambulate Analgesics for pain management Left knee x-ray pending PT consult COPD Not in acute exacerbation Continue home inhalers Peripheral neuropathy Continue gabapentin HTN Continue lisinopril Mood disorder Continue sertraline, lorazepam Full Code Attending:?Dr. Hobbs DVT Prophylaxis: Lovenox Patient will be admitted to the hospital under observation for treatment and further evaluation of electrolyte abnormalities in the setting of SIADH and failure to thrive secondary to inability to ambulate due to intractable left knee pain. Quality Stroke Does the patient have a stroke diagnosis?: No VTE Prior VTE?: No VTE Risk Level:: Medical - moderate - high VTE Device Contraindication: Treatment Not Indicated VTE Drug Contraindication: N/A - Med Ordered
--- NOTE | 2024-04-24 20:29 | PC.NURSE ---
Patient is requesting medication for pain. SHIKHA Alex at bedside speaking with patient. Plan for admission for SIADH. PT/CM, difficulty ambulating. PA aware of request, who plans to order Oxycodone 5mg.
[2024-04-24] MEDS: Enoxaparin Sodium 40 MG/0.4 ML SYRINGE SUBCUT (20:58)
[2024-04-24] MEDS: oxyCODONE HCl Immed Release 5 MG TABLET PO (20:58)
[2024-04-24] MEDS: Gabapentin 100 MG CAPSULE PO (20:59)
[2024-04-24 21:21] VITALS: BP 150/84; PULSE 98; RESP 24; TEMP 36.4; O2SAT 97
--- NOTE | 2024-04-24 21:36 | PHA.MEDREC ---
Addendum entered by Lebron Mckeon RPh 04/24/24 22:21: MED REC CHECKED BY [facility] Original Note: Pharmacy Consult ? Medication Reconciliation Pharmacy has completed the medication reconciliation. Spoke with patient and she did not know what she was taking for medications but stated her sister Melyssa has a list and to call her. I called Melyssa and she was able to confirm what her sister was taking at the rehab center. When the patient got admitted to the rehab facility the sister stated they did not continue the Gabapentin 100mg tab or Naproxen 500mg tab on their own behalf due to the recovery process being longer taking those medications in their eyes. She also stated they stopped the Albuterol inhaler as well when she got there but didnt know why. The patient confirmed she took her medications maybe Saturday-Saturday; The sister told me when the patient got home her brother had a massive heart attack in front of the patient and I'm pretty sure she did not take any medications yesterday. The sister did confirm tho that she took an Aspirin 81mg tab, Multivitamin and Lisionpril 5mg tab this morning.
[2024-04-24 23:21] VITALS: BP 136/65; PULSE 89; RESP 14; TEMP 36.1; O2SAT 97
[2024-04-25 00:17] VITALS: BMI 18.5
[2024-04-25] MEDS: ondansetron HCL 4 MG/2 ML VIAL IVPUSH (01:11)
[2024-04-25] MEDS: oxyCODONE HCl Immed Release 5 MG TABLET PO ×2 (02:54→10:11)
[2024-04-25 03:32] VITALS: BP 134/64; PULSE 95; RESP 14; TEMP 36.4; O2SAT 96
[2024-04-25 06:22] LABS: MANUAL DIFF FLAG NO
[2024-04-25 06:35] LABS: Basophils Percent Auto 0.2 % (0-2); Hematocrit 36.9 % (37.0-47.0); Hemoglobin 12.6 g/dl (12.0-16.0); Imm Gran Abs Auto 0.02 X10*3/uL (0.00-0.03); Imm Gran Pct Auto 0.3 % (0.0-0.4); Lymphocytes Absolute Auto 0.7 X10*3/uL (1.2-4.9); Lymphocytes Percent Auto 12.1 % (20-40); Mean Corpuscular HGB Conc 34.1 g/dl (31.0-35.0); Mean Corpuscular Hemoglobin 27.9 pg (27.0-33.0); Mean Corpuscular Volume 81.8 fL (80.0-98.0); Mean Platelet Volume 8.3 fL (9.4-12.3); Monocytes Absolute Auto 0.7 X10*3/uL (0.1-1.2); Monocytes Percent Auto 11.8 % (2-11); Neutrophils Absolute Auto 4.4 x10*3/uL (2.0-8.3); Neutrophils Percent Auto 75.6 % (45-73); Platelet Count 347 X10*3/uL (160-400); Red Blood Count 4.51 X10*6/uL (4.20-5.50); Red Cell Distribution Width 12.9 % (11.0-16.0); White Blood Count 5.9 X10*3/uL (4.8-10.8)
[2024-04-25 06:51] LABS: Anion Gap 18 (12-20); Blood Urea Nitrogen 6 mg/dL (9-16); Calcium 8.9 mg/dL (8.4-10.2); Carbon Dioxide 17 mmol/L (22-29); Chloride 98 mmol/L (96-108); Creatinine Clr Calc Pharmacy 79.4; Estimated Glomerular Filt Rate > 60; Glucose Random 83 mg/dL (60-115); Potassium 4.1 mmol/L (3.3-5.1); Sodium 129 mmol/L (135-145)
--- NOTE | 2024-04-25 07:21 | HO.PM.IMPN ---
Subjective Subjective Date of Service: 04/25/24 Review of Systems Follow up FTT feeling better, no nausea Physical Exam Vital Signs: Vital Signs: Last Vital Signs Temp 97.5 F 04/25/24 03:32 Pulse 95 04/25/24 03:32 Resp 14 04/25/24 03:32 BP 134/64 04/25/24 03:32 Pulse Ox 96 04/25/24 03:32 O2 Del Method Room Air 04/25/24 03:32 BMI result Body Mass Index 18.5 Appearing in no acute distress lung sounds are clear to auscultation heart regular rate rhythm, clear S1, S2 positive bowel sounds, abdomen is soft, nontender neuro patient is alert x3, no focal deficits Objective Data Active Medications Acetaminophen (Acetaminophen 325 Mg Tablet) 650 mg PO Q6H PRN PRN Reason: Pain, Mild (Pain Scale 1-3), fever or headache Calcium Carbonate (Calcium Carbonate 750 Mg Tab.Chew) 750 mg PO Q4H PRN PRN Reason: Heartburn Enoxaparin Sodium (Enoxaparin Sodium 40 Mg/0.4 Ml Syringe) 40 mg SUBCUT Q24H [facility] Last Admin: 04/24/24 20:58 Dose: 40 mg Documented By: NOEMÍ Magnesium Hydroxide (Milk Of Magnesia 30 Ml Oral.Susp) 30 ml PO DAILY PRN PRN Reason: Constipation Melatonin (Melatonin 3 Mg Tablet) 6 mg PO BEDTIME PRN PRN Reason: Insomnia Ondansetron HCl (Ondansetron Hcl 4 Mg/2 Ml Vial) 4 mg IVPUSH Q8H PRN PRN Reason: Nausea and Vomiting Last Admin: 04/25/24 01:11 Dose: 4 mg Documented By: MICHELLE Oxycodone HCl (Oxycodone Hcl Immed Release 5 Mg Tablet) 5 mg PO Q6H PRN PRN Reason: Pain, Severe (Pain Scale 7-10) Last Admin: 04/25/24 02:54 Dose: 5 mg Documented By: MICHELLE Sodium Chloride (0.9 % Sodium Chloride Flush 3 Ml Syringe) 3 ml IVFLUSH QSHIFT [facility] Last Admin: 04/25/24 00:04 Dose: Not Given Documented By: MICHELLE Non-Admin Reason: iv kcl running Labs 04/25/24 06:07 04/25/24 06:07 Labs: Laboratory Results - last 24 hr 12/20/24 12/20/24 12/20/24 15:05 16:42 17:45 MCV 80.5 MCH 28.6 MCHC 35.6 H RDW 12.9 Plt Count 340 MPV 7.6 L Immature Gran % (Auto) 0.2 Neut % (Auto) 72.9 Lymph % (Auto) 16.3 L [place] % (Auto) 10.4 Eos % (Auto) 0.0 Baso % (Auto) 0.2 Lymph # (Auto) 0.7 L [place] # (Auto) 0.4 Eos # (Auto) 0.0 Baso # (Auto) 0.0 Abs Immat Gran (auto) 0.01 Absolute Neuts (auto) 3.0 Absolute Nucleated RBC 0.000 Nucleated RBC % (auto) 0.0 PT 15.0 H INR 1.3 H Anion Gap 13 Estim Creat Clear Calc 67.6 Estimated GFR > 60 Random Glucose 125 H Osmolality 257 L Calcium 8.9 D Magnesium 1.7 Urine Color Yellow Urine Appearance Clear Urine pH 7.5 Ur Specific [place] 1.010 Urine Protein 30 (1+) H Urine Glucose (UA) Negative Urine Ketones 40 Urine Blood Negative Urine Nitrite Negative Ur Leukocyte Esterase Negative Urine RBC 0-2 Urine WBC 0-5 Ur Squamous Epith Cells 0-2 Urine Bacteria None Seen Hyaline Casts 0-2 Urine Osmolality 327 L Ur Random Sodium 67.0 04/25/24 06:07 MCV 81.8 MCH 27.9 MCHC 34.1 RDW 12.9 Plt Count 347 MPV 8.3 L Immature Gran % (Auto) 0.3 Neut % (Auto) 75.6 H Lymph % (Auto) 12.1 L [place] % (Auto) 11.8 H Eos % (Auto) 0.0 Baso % (Auto) 0.2 Lymph # (Auto) 0.7 L [place] # (Auto) 0.7 Eos # (Auto) 0.0 Baso # (Auto) 0.0 Abs Immat Gran (auto) 0.02 Absolute Neuts (auto) 4.4 Absolute Nucleated RBC 0.000 Nucleated RBC % (auto) 0.0 PT INR Anion Gap 18 Estim Creat Clear Calc 79.4 Estimated GFR > 60 Random Glucose 83 Osmolality Calcium 8.9 Magnesium Urine Color Urine Appearance Urine pH Ur Specific [place] Urine Protein Urine Glucose (UA) Urine Ketones Urine Blood Urine Nitrite Ur Leukocyte Esterase Urine RBC Urine WBC Ur Squamous Epith Cells Urine Bacteria Hyaline Casts Urine Osmolality Ur Random Sodium Assessment and Plan (1) Hyponatremia: Status: Acute Plan Pt is a 73-year-old female with a PMH significant for?HTN, chronic normocytic anemia, COPD, osteoporosis, neuropathy, and mood disorder who presents to the ED for evaluation of left knee pain and inability to take care of herself at home. 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 Hyponatremia Patient's sodium 129 at time of presentation Secondary to SIADH: Serum osmolality low at 257, urine osmolality low at 327 Patient given sodium chloride in the ED continue fluid restriction Monitor sodium levels Hypokalemia. Resolved Potassium 2.7 at time of presentation Likely secondary to reduced p.o. intake Patient received potassium 10 mEq IV x2 doses, 40 mEq p.o. Left knee pain Experienced left knee fracture secondary to fall in 03/2024 Was at [facility] rehab, discharged home 2 weeks ago Still currently experiencing left knee pain, unable to properly ambulate Analgesics for pain management Left knee x-ray results pending PT rec STR COPD Not in acute exacerbation Continue home inhalers Peripheral neuropathy Continue gabapentin HTN Continue lisinopril Mood disorder Continue sertraline, lorazepam Full Code Attending:?Dr. Arceo DVT Prophylaxis: Lovenox Quality Stroke Does the patient have a stroke diagnosis?: No VTE Prior VTE?: No VTE Risk Level:: Medical - moderate - high VTE Device Contraindication: Treatment Not Indicated VTE Drug Contraindication: N/A - Med Ordered
[2024-04-25 07:52] VITALS: BP 131/60; PULSE 88; RESP 16; TEMP 36.8; O2SAT 94
[2024-04-25 08:50] VITALS: BP 131/60; PULSE 88; O2SAT 94
[2024-04-25] MEDS: 0.9 % Sodium Chloride Flush 3 ML SYRINGE IVFLUSH (10:04)
[2024-04-25] MEDS: Acetaminophen 325 MG TABLET 650 MG PO (14:43)
[2024-04-25 15:21] VITALS: BP 107/65; PULSE 97; RESP 18; TEMP 37.1; O2SAT 94
--- NOTE | 2024-04-25 15:52 | MHC.CM.PN ---
Addendum entered by Debra Nails 04/26/24 15:29: CM MET WITH PT AND HER SISTER WHO [facility]PORT [facility]ERR[facility] SEVERAL MESSAGES SENT TO CONFIRM BED OFFER, NO RESPONSE AT THIS TIME Original Note: CM MET WITH PT AND DAUGHTER AT BEDSIDE PT LEFT [facility] ON 04/23/24 AND WHEN THE VNA SAW HER YESTERDAY THEY SENT HER TO THE ED DUE TO NOT BEING SAFE AT HOME PT LIVES ALONE, SHE DOES NOT KNOW THE NAME OF HER VNA SHE WAS USING A W/C DUE TO [facility] STATUS DAUGHTER UNSURE IF SHE WOULD PREFER TO TAKE HER TO HER HOME AT [place] OR HAVE HER GO TO [place] DAUGHTER WORRIED THAT PT IS WASTING HER REHAB DAYS WHILE [facility] PCP: LAUREN ROSAS HCP ON FILE OBSERVATION NOTICE DELIVERED
[2024-04-25] MEDS: Enoxaparin Sodium 40 MG/0.4 ML SYRINGE SUBCUT (19:17)
[2024-04-25 19:40] VITALS: BP 109/52; PULSE 84; RESP 18; TEMP 36.6; O2SAT 92
[2024-04-26] VITALS: BP 119/75; PULSE 86; RESP 18; TEMP 36.3; O2SAT 94
[2024-04-26] MEDS: oxyCODONE HCl Immed Release 5 MG TABLET PO ×3 (00:32→19:09)
[2024-04-26] MEDS: 0.9 % Sodium Chloride Flush 3 ML SYRINGE IVFLUSH ×4 (00:36→19:13)
[2024-04-26 04:00] VITALS: BP 114/63; PULSE 92; RESP 18; TEMP 36.6; O2SAT 95
[2024-04-26 06:41] LABS: Anion Gap 15 (12-20); Blood Urea Nitrogen 11 mg/dL (9-16); Calcium 8.6 mg/dL (8.4-10.2); Carbon Dioxide 23 mmol/L (22-29); Chloride 95 mmol/L (96-108); Creatinine Clr Calc Pharmacy 69.8; Estimated Glomerular Filt Rate > 60; Glucose Random 85 mg/dL (60-115); Potassium 3.4 mmol/L (3.3-5.1); Sodium 130 mmol/L (135-145)
[2024-04-26 07:35] VITALS: BP 129/59; PULSE 82; RESP 17; TEMP 36.6; O2SAT 96
--- NOTE | 2024-04-26 08:32 | P.PNIM_ITS ---
Subjective Subjective Date of Service: 04/26/24 Review of Systems Follow up FTT feeling better, no nausea Physical Exam 2 Vital Signs: Vital Signs: Last Vital Signs Temp 98 F 04/26/24 07:35 Pulse 82 04/26/24 07:35 Resp 17 04/26/24 07:35 BP 129/59 L 04/26/24 07:35 Pulse Ox 96 04/26/24 07:35 O2 Del Method Room Air 04/26/24 07:35 BMI result Body Mass Index 18.5 Appearing in no acute distress lung sounds are clear to auscultation heart regular rate rhythm, clear S1, S2 positive bowel sounds, abdomen is soft, nontender neuro patient is alert x3, no focal deficits Objective Data Active Medications Acetaminophen (Acetaminophen 325 Mg Tablet) 650 mg PO Q6H PRN PRN Reason: Pain, Mild (Pain Scale 1-3), fever or headache Last Admin: 04/25/24 14:43 Dose: 650 mg Documented By: HERMILA Aspirin (Aspirin 81 Mg Tab.Chew) 81 mg PO DAILY [facility] Calcium Carbonate (Calcium Carbonate 750 Mg Tab.Chew) 750 mg PO Q4H PRN PRN Reason: Heartburn Calcium Carbonate (Calcium Carbonate 750 Mg Tab.Chew) 750 mg PO DAILY [facility] Enoxaparin Sodium (Enoxaparin Sodium 40 Mg/0.4 Ml Syringe) 40 mg SUBCUT Q24H [facility] Last Admin: 04/25/24 19:17 Dose: 40 mg Documented By: MICHELLE Lisinopril (Lisinopril 5 Mg Tablet) 5 mg PO DAILY [facility]; Protocol Lorazepam (Lorazepam 0.5 Mg Tablet) 0.5 mg PO BID PRN PRN Reason: anxiety Magnesium Hydroxide (Milk Of Magnesia 30 Ml Oral.Susp) 30 ml PO DAILY PRN PRN Reason: Constipation Melatonin (Melatonin 3 Mg Tablet) 6 mg PO BEDTIME PRN PRN Reason: Insomnia Multivitamins/Vitamin C (Multivitamin Tablet) 1 tab PO DAILY [facility] Ondansetron HCl (Ondansetron Hcl 4 Mg/2 Ml Vial) 4 mg IVPUSH Q8H PRN PRN Reason: Nausea and Vomiting Last Admin: 04/25/24 01:11 Dose: 4 mg Documented By: MICHELLE Oxycodone HCl (Oxycodone Hcl Immed Release 5 Mg Tablet) 5 mg PO Q6H PRN PRN Reason: Pain, Severe (Pain Scale 7-10) Last Admin: 04/26/24 00:32 Dose: 5 mg Documented By: MICHELLE Sertraline HCl (Sertraline Hcl 50 Mg Tablet) 50 mg PO DAILY SKIP Sodium Chloride (0.9 % Sodium Chloride Flush 3 Ml Syringe) 3 ml IVFLUSH QSHIFT SKIP Last Admin: 04/26/24 00:36 Dose: 3 ml Documented By: MICHELLE Labs 04/25/24 06:07 04/26/24 06:05 Labs: Laboratory Results - last 24 hr 04/26/24 06:05 Anion Gap 15 Estim Creat Clear Calc 69.8 Estimated GFR > 60 Random Glucose 85 Calcium 8.6 Assessment and Plan (1) Hyponatremia: Status: Acute Plan Pt is a 73-year-old female with a PMH significant for?HTN, chronic normocytic anemia, COPD, osteoporosis, neuropathy, and mood disorder who presents to the ED for evaluation of left knee pain and inability to take care of herself at home. 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 Hyponatremia. Improving Patient's sodium 129 at time of presentation Secondary to SIADH: Serum osmolality low at 257, urine osmolality low at 327 Patient given sodium chloride in the ED continue fluid restriction Monitor sodium levels Hypokalemia. Resolved Potassium 2.7 at time of presentation Likely secondary to reduced p.o. intake Patient received potassium IV and po Left knee pain Experienced left knee fracture secondary to fall in 03/2024 Was at [facility] rehab, discharged home 2 weeks ago Still currently experiencing left knee pain, unable to properly ambulate Analgesics for pain management Left knee x-ray results still pending PT rec STR COPD Not in acute exacerbation Continue home inhalers HTN Continue lisinopril Mood disorder Continue sertraline, lorazepam Full Code Attending:?Dr. Arceo DVT Prophylaxis: Lovenox Quality Stroke Does the patient have a stroke diagnosis?: No VTE Prior VTE?: No VTE Risk Level:: Medical - moderate - high VTE Device Contraindication: Treatment Not Indicated VTE Drug Contraindication: N/A - Med Ordered
[2024-04-26] MEDS: Aspirin 81 MG TAB.CHEW PO (08:53)
[2024-04-26] MEDS: Potassium Chloride ER 20 MEQ TAB.ER.PRT PO (08:54)
[2024-04-26] MEDS: Multivitamin TABLET 1 TAB PO (08:54)
[2024-04-26] MEDS: lisinopriL 5 MG TABLET PO (08:54)
[2024-04-26] MEDS: Sertraline HCL 50 MG TABLET PO (08:55)
[2024-04-26] MEDS: Calcium Carbonate 750 MG TAB.CHEW PO (08:56)
--- NOTE | 2024-04-26 14:56 | P.DS_ITS ---
DS: Providers Provider Date of Service: 04/27/24 <Sunday Jean MD - Last Filed: 04/27/24 11:46> Date of admission: 04/25/24 08:56 <Sanaz Weinstein NP - Last Filed: 05/06/24 14:39> Date of discharge: 04/27/24 <Sunday Jean MD - Last Filed: 04/27/24 11:46> Primary care physician: Alan Chanel MD <Sanaz Weinstein NP - Last Filed: 05/06/24 14:39> Attending physician on discharge: Sunday Jean <Sunday Jean MD - Last Filed: 04/27/24 11:46> DS: Diagnosis Discharge Diagnosis (1) Hyponatremia: Status: Resolved <Sanaz Weinstein NP - Last Filed: 05/06/24 14:39> (2) Hypokalemia: Status: Resolved <Sanaz Weinstein NP - Last Filed: 05/06/24 14:39> (3) Fracture of left tibial plateau: Status: Acute <Sanaz Weinstein NP - Last Filed: 05/06/24 14:39> DS: Summary Hospital Course Hospital Course: History and physical as per admitting provider. Pt is a 73-year-old female with a PMH significant for?HTN, chronic normocytic anemia, COPD, osteoporosis, neuropathy, and mood disorder who presents to the ED for evaluation of left knee pain and inability to take care of herself at home. Patient had a fall in March that resulted in a left knee fracture. Patient was initially at [facility] for rehab and discharged home 2 weeks ago. Patient lives alone and reports she was unable to properly ambulate once she got home. Initially received assistance by her sister who eventually was unable to keep up with the level of care needed and so [facility]NA services came out for evaluation and felt patient was unable to safely take care of herself independently so she was sent to the ED for further evaluation. Patient complains of left knee pain and swelling that has worsened in the past few days. No fall at home or trauma to the area. Patient states has not been eating or drinking much at all since discharge secondary to pain and discomfort. Chronic lower extremity numbness and tingling secondary to neuropathy at baseline. Denies fever, chills, nausea, vomiting, abdominal pain. No diarrhea. Denies chest pain/pressure, palpitations. No shortness a breath or difficulty breathing. In the ED pt was's vitals were stable and WNL. Labs were significant for normocytic anemia of 11.6/32.6, sodium 129, potassium 2.7, chloride 91, serum osmolality low at 257, and urine osmolality low at 327. No leukocytosis. Renal function baseline. UA negative for UTI. X-ray of left knee pending. EKG demonstrated sinus rhythm with PACs and no evidence of significant ST elevations or depressions. Pt was treated with potassium chloride 10 mEq IV x2 doses and 40 mEq p.o., ondansetron, and sodium chloride 1 g p.o.. 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 She presented with sodium of 129 time of presentation. Patient was given sodium chloride in the ER, fluid restriction. Her sodium did come up above 130.. She also was noted to have hypokalemia with potassium 2.7 at time of presentation. Resolved with IV and p.o. repletion. Patient has remained asymptomatic. She also had some complaints of left knee pain secondary to a knee fracture after a fall in March. She was at [facility] rehab and discharged home 2 weeks prior to this admission. She was still having difficulties with ambulation. She was treated with analgesics for pain. She was seen by Physical therapy who recommended short-term rehab. Orthopedics recs from outpatient clinic visit on 04/20/24: She was placed into an ACL brace, off the shelf. He should remain in the ACL brace at all times. The brace can be unlocked while she is sedentary and should be locked at 0 degree in extension while ambulating. She should be non-weight bearing for roughly 3 months. Follow-up will be in 4 weeks, or sooner if needed. COPD. No exacerbation during admission. Continue home inhalers Hypertension. Stable blood pressure. Continue lisinopril Mental health. Continue sertraline and lorazepam. <Sanaz Weinstein NP - Last Filed: 05/06/24 14:39> Time Attestation Discharge Coordination Time (in mins): 40 <Sunday Jean MD - Last Filed: 04/27/24 11:46> Quality: Safe Use of Opioids Does Pt have an Active Cancer Diagnosis on the Problem List?: No <Sunday Jean MD - Last Filed: 04/27/24 11:46> Quality: Stroke Does the patient have a stroke diagnosis?: No <Sunday Jean MD - Last Filed: 04/27/24 11:46> Physical Exam Vital Signs: Vital Signs: Last Vital Signs Temp 98 F 04/26/24 07:35 Pulse 82 04/26/24 07:35 Resp 17 04/26/24 07:35 BP 129/59 L 04/26/24 07:35 Pulse Ox 96 04/26/24 07:35 O2 Del Method Room Air 04/26/24 07:35 BMI result Body Mass Index 18.5 <Sanaz Weinstein NP - Last Filed: 05/06/24 14:39> Const: Other: General - no acute distress, appears comfortable Cardiovascular - regular rate and rhythm, S1-S2 Lungs - normal respiratory effort, clear to auscultation bilaterally, no wheezing Abdomen - soft, nontender, no rebound or guarding Extremities - LLE in brace Neuro - awake and alert, no focal deficits <Sunday Jean MD - Last Filed: 04/27/24 11:46> DS: Data Data Completed and Pending Labs on day of discharge: Laboratory Results - last 24 hr 04/26/24 06:05 Sodium 130 L Potassium 3.4 Chloride 95 L Carbon Dioxide 23 Anion Gap 15 BUN 11 Creatinine 0.58 Estim Creat Clear Calc 69.8 Estimated GFR > 60 Random Glucose 85 Calcium 8.6 <Sanaz Weinstein NP - Last Filed: 05/06/24 14:39> Discharge Plan Discharge Anticipated Discharge Date/Time: 04/27/24 11:43 <Sanaz Weinstein NP - Last Filed: 05/06/24 14:39> Patient Disposition: Xfer SNF <Sanaz Weinstein NP - Last Filed: 05/06/24 14:39> Discharge Diagnosis: Hyponatremia Hypokalemia Left knee pain Failure to thrive <Sanaz Weinstein NP - Last Filed: 05/06/24 14:39> Hyponatremia Hypokalemia Left knee pain Failure to thrive <Sunday Jean MD - Last Filed: 04/27/24 11:46> Referrals: [facility] [Outside] - 1 Week [facility] [Outside] - 1 Week Alan Chanel MD [Primary Care Provider] - 1 Week Marielle Man PA-C [Physician Casting Tester] - 3 Weeks (or sooner if issues) <Sanaz Weinstein NP - Last Filed: 05/06/24 14:39> Discharge Medications: Continued lorazepam 0.5 mg tablet 0.5 mg PO BID PRN (Reason: anxiety) 30 Days Qty: 60 1RF lisinopril 5 mg tablet 5 mg PO DAILY Qty: 90 1RF lidocaine [Lidoderm] 5 % adhesive patch,medicated 2 patch topical DAILY Qty: 30 0RF Rx Instructions: leave on most painful area for up to 12 hrs tramadol 50 mg tablet 50 mg PO Q8H PRN (Reason: pain) Qty: 10 0RF multivitamin Tablet 1 tab PO DAILY aspirin [Doyle Chewable Aspirin] 81 mg tablet,chewable 81 mg PO DAILY calcium carbonate [Calcium 600] 600 mg calcium (1,500 mg) tablet 600 mg PO DAILY sertraline 50 mg tablet 50 mg PO DAILY 30 Days Qty: 30 5RF <Sanaz Weinstein NP - Last Filed: 05/06/24 14:39> Discharge Orders: Discharge Order (Routine); Ordered 04/27/24 Ordered By: Sunday Jean <Sanaz Weinstein NP - Last Filed: 05/06/24 14:39> Diet: Advance to usual diet <Sanaz Weinstein NP - Last Filed: 05/06/24 14:39> Advance to usual diet <Sunday Jean MD - Last Filed: 04/27/24 11:46> Activity on Discharge: NWB LLE <Sanaz Weinstein NP - Last Filed: 05/06/24 14:39> NWB LLE <Sunday Jean MD - Last Filed: 04/27/24 11:46> Stand Alone Forms: Patient Portal Discharge page <Sanaz Weinstein NP - Last Filed: 05/06/24 14:39> Print Language: Emirati <Sanaz Weinstein NP - Last Filed: 05/06/24 14:39> Care Plan Goals: To stay healthy and out of the hospital. <Sanaz Weinstein NP - Last Filed: 05/06/24 14:39> Health Concerns: Hyponatremia Hypokalemia Left knee pain / fracture <Sanaz Weinstein NP - Last Filed: 05/06/24 14:39> Plan of Treatment: Follow-up with primary care provider Take all medications as prescribed follow up with orthopedics with the following recs: Se should remain in the ACL brace at all times. The brace can be unlocked while she is sedentary and should be locked at 0 degree in extension while ambulating. She should be non-weight bearing for roughly 3 months. Follow-up will be in 4 weeks, or sooner if needed. <Sanaz Weinstein NP - Last Filed: 05/06/24 14:39> Assessment: See discharge summary <Sanaz Weinstein NP - Last Filed: 05/06/24 14:39> Discharge Date/Time: 04/27/24 16:12 <Sanaz Weinstein NP - Last Filed: 05/06/24 14:39>
[2024-04-26 15:13] VITALS: BP 114/58; PULSE 92; RESP 18; TEMP 37.6; O2SAT 95
[2024-04-26] MEDS: ondansetron HCL 4 MG/2 ML VIAL IVPUSH (17:25)
[2024-04-26] MEDS: Enoxaparin Sodium 40 MG/0.4 ML SYRINGE SUBCUT (19:09)
[2024-04-26 19:35] VITALS: BP 118/63; PULSE 96; RESP 16; TEMP 36.8; O2SAT 94
[2024-04-27 03:09] VITALS: BP 117/56; PULSE 86; RESP 18; TEMP 37.4; O2SAT 93
[2024-04-27 06:31] LABS: Anion Gap 15 (12-20); Blood Urea Nitrogen 11 mg/dL (9-16); Calcium 8.9 mg/dL (8.4-10.2); Carbon Dioxide 25 mmol/L (22-29); Chloride 95 mmol/L (96-108); Creatinine Clr Calc Pharmacy 61.4; Estimated Glomerular Filt Rate > 60; Glucose Random 105 mg/dL (60-115); Potassium 3.8 mmol/L (3.3-5.1); Sodium 131 mmol/L (135-145)
[2024-04-27 07:42] VITALS: BP 127/61; PULSE 95; RESP 17; TEMP 37.2; O2SAT 96
[2024-04-27] MEDS: Calcium Carbonate 750 MG TAB.CHEW PO (08:06)
[2024-04-27] MEDS: Sertraline HCL 50 MG TABLET PO (08:06)
[2024-04-27] MEDS: oxyCODONE HCl Immed Release 5 MG TABLET PO ×2 (08:07→16:04)
[2024-04-27] MEDS: Multivitamin TABLET 1 TAB PO (08:07)
[2024-04-27] MEDS: Aspirin 81 MG TAB.CHEW PO (08:07)
[2024-04-27] MEDS: 0.9 % Sodium Chloride Flush 3 ML SYRINGE IVFLUSH (08:07)
[2024-04-27] MEDS: lisinopriL 5 MG TABLET PO (08:07)
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
[2024-04-27 15:32] VITALS: BP 124/66; PULSE 109; RESP 18; TEMP 37.6; O2SAT 95
[2024-04-27 16:06] VITALS: BP 124/66; PULSE 109; O2SAT 95
== END 2024-04-27 16:12 | disposition skilled nursing facility (03) | DRG 644 ==
LOC: HO.ED 15:48 → HO.EDOVER 20:13 → HO.S3 21:50
PROVIDERS: Nurse Practitioner Acute Care; Nurse Practitioner Family; Admitting Provider Student in an Organized Health Care Education/Training Program; Emergency Provider Emergency Medicine Emergency Medical Services; PCP Internal Medicine; Visit Provider Family Medicine
DX: E22.2 Syndrome of inappropriate secretion of antidiuretic hormone (principal); S82.142A Displaced bicondylar fracture of left tibia, initial encounter for closed fracture; Z68.1 Body mass index [BMI] 19.9 or less, adult; J44.9 Chronic obstructive pulmonary disease, unspecified; I10 Essential (primary) hypertension; R62.7 Adult failure to thrive; W19.XXXA Unspecified fall, initial encounter; F39 Unspecified mood [affective] disorder; G62.9 Polyneuropathy, unspecified; D64.9 Anemia, unspecified; E87.6 Hypokalemia; Z79.82 Long term (current) use of aspirin; Z79.899 Other long term (current) drug therapy
CPT/HCPCS: 36415; 80048; 81001; 83735; 83930; 83935; 84300; 85025; 85610; 93005; 97162; 99221; 99285; J1650; J2405; J3480

== ENCOUNTER → 2024-04-24 15:55 | Outpatient (BNV) | payer MEDICARE, MEDICAID, SELFPAY | PROVIDERS: Admitting Provider Student in an Organized Health Care Education/Training Program; Emergency Provider Emergency Medicine Emergency Medical Services; PCP Internal Medicine; Visit Provider Internal Medicine | DX: R94.31 Abnormal electrocardiogram [ECG] [EKG] (principal); E87.6 Hypokalemia | CPT/HCPCS: 93010 ==

== ENCOUNTER → 2024-04-24 19:54 | Outpatient (BNV) | payer MEDICARE, MEDICAID, SELFPAY | PROVIDERS: Admitting Provider Student in an Organized Health Care Education/Training Program; Emergency Provider Emergency Medicine Emergency Medical Services; PCP Internal Medicine; Visit Provider Student in an Organized Health Care Education/Training Program | DX: E87.1 Hypo-osmolality and hyponatremia (principal) | CPT/HCPCS: 99222; 99232; 99499 ==

== ENCOUNTER 2024-05-19 07:53 | Outpatient (REF) | payer MEDICARE, MEDICAID, SELFPAY ==
--- NOTE | ~2024-05-19 | XR_ITS ---
EXAMINATION: XR KNEE 1-2 VIEWS LEFT HISTORY: M25.569 - Pain in unspecified knee COMPARISON: Comparison is made with the prior examination dated 04/20/2024. FINDINGS: AP and lateral views of the left knee are submitted. Osseous mineralization is normal. Again seen is a transverse fracture through the tibial metaphysis. There is been no significant change in alignment. There is slightly greater sclerosis at the fracture margins consistent with healing. There is mild narrowing of the medial and lateral compartments. There is chondrocalcinosis. XR/XR knee LT 2V IMPRESSION: Healing transverse fracture of the proximal tibial metaphysis. Electronically signed by: Rios Castellanos MD 05/21/2024 08:14 AM [facility]
--- OUTSIDE RECORDS SUMMARY | 2024-05-19 08:07 | XMS_ITS | Continuity of Care Document ---
Author Organization [facility], [facility] Address [address] [place] [address] Care Team Providers Care Supply Chain Project Manager Name Role Phone DANIEL PETER - 2ND FLOOR OTHER LAUREN ROSAS Primary Care Provider Assessment No assessment recorded. Plan of Treatment Reminders Order Date Submit Date Provider Last Modified By Organization Details Last Modified Time Details Appointments None record ed. Lab None record ed. Referral None record ed. Procedures None record ed. Surgeries None record ed. Imaging None record ed. Medication Orders None record ed. Patient TargetsNo targets recorded. Patient InstructionsNo instructions recorded. Reason for Referral None Reported. Problems Name Problem SNOMED Code Status Onset Date Resolution Date Notes Provider Name and Address Organization Details Recorded Time Adult failure to thrive syndrome 407492271 Active 2023 Kenny Malave MD [address] [place] [address], [facility] [address], [address], [facility] [employer] [facility] 13:42:50 Syndrome of inappropria te vasopressin secretion 48949332 Active 2023 Kenny Malave MD [address] [place] [address], [address], [place], [address], [facility] [employer] [facility] 13:42:57 Unsteady when walking 93826123 Active 2023 Kenny Malave MD [address] [place] [address], [address], [place], [address], [facility] [employer] [facility] 4 13:43:03 Essential hypertensio n 80801504 Active 2023 Kenny Malave MD [address] [place] [address], [address], [place], [address], [facility] [employer] [facility] 13:43:09 Anemia 260390453 Active 2023 Kenny Malave MD [address], [address], [place], [address], [employer] 4 13:43:14 Chronic obstructive pulmonary disease 75428303 Active 2023 Kenny Malave MD [address], [address], [place], [address], [employer] 4 13:43:19 Osteoporosi s 64939517 Active 2023 Kenny Malave MD [address], [address], [place], [address], [employer] 4 13:43:27 Neuropathy 940375723 Active 2023 Kenny Malave MD [address], [address], [place], [address], [employer] 4 13:43:33 Mood disorder 19832446 Active 2023 Kenny Malave MD [address] [facility], [address], [place], [address], [employer] 4 13:43:41 Closed fracture of left patella 5292084659225 9105 Active 2023 Kenny Malave MD [address] [facility], [address], [place], [address], [employer] 4 13:44:22 Hearing loss 53132792 Active 2023 Kenny Malave MD [address] [place] [address], [address], [place], [address], [employer] 4 13:56:41 Problem Notes None recorded. Medical Equipment None Reported. Allergies No known drug allergies Medications Not known to be on any medication Vitals Date Recorded Heart rate Respiratory rate Body temperature Body weight Systolic blood pressure Diastolic blood pressure Provider Name and Address Organization Details Last Updated DateTime 4 68 /min 18 /min 98 [degF] 80645.9 8 g 121 mm[Hg] 72 mm[Hg] Kenny Malave MD [address] [facility], [address], [place], [address], [facility] 4 13:35:58 Social History Question Answer Notes LastModified by Organizat ion Details LastModified Time Tobacco Smoking Status Former Smoker 2 ppd smoker quit early 2023 Kenny Malave MD [address] [facility], [address], [place], [address], [facility] 04/28/2024 13:58:17 Do You Have An Advance Directive? No Information not available 04/28/2024 What Is Your Level Of Alcohol Consumption? None Information not available 04/28/2024 What Is Your Code Status? DNI [email or web address] Information not available 04/30/2024 How Much Tobacco Do You Smoke? No [email or web address] Information not available 05/15/2024 Sex: Unknown Functional Status None recorded. Mental Status None recorded. Family History Nothing Reported Notes:N/C Medical History No medical history recorded. Gynecological HistoryNo gynecological history recorded. Obstetrics History GPAL:G 0 P 0 0 0 0 Immunizations Vaccine Type Date Status Note Provider Nam e and Address Organization Details Recorded Time Tdap 6 completed Joann Blum [facility] 05/05/2024 16:34:17 pneumococcal polysaccharide PPV23 6 completed Joann Blum [facility] 05/05/2024 16:34:32 influenza, unspecified formulation 4 completed Joann Blum [facility] 05/05/2024 16:34:49 influenza, unspecified formulation 3 completed Joann Blum [facility] 05/05/2024 16:34:56 influenza, unspecified formulation 2 completed Joann Blum [facility] 05/05/2024 16:35:02 Past Encounters Encounter ID Performer Location Encounter Start Date Encounter Closed Date Diagnosis/Indication Diagnosis SNOMED-CT Code Diagnosis ICD10 Code Diagnosis Note [id number] Kenny Malave MD [address] [address] 04/28/2024 13:33:15 04/30/2024 11:05:32 Adult failure to thrive syndrome 942782581 R62.7 see HPInot able to be cared for in communitym onitor need for increased servicesco ntinue supportive care at facilitypo or PO intake priordieta ry to evalmonito r weights Closed fra cture of left patella 1523043429 7761542 S82.015G prior fall with left knee fxACL brace in placeNWB till cleared by orthofollo w ortho recs and update with concernstr amadol 50 mg q 8 prnmonitor pain control Syndrome o f inappropriate vasopressin secretion 90716884 E22.2 monitor Na and need to adjust fluid restrictio n Acute hypokalemia 496446 03 E87.6 improved with supplement monitor lytes Unsteady when walking 22 640668 R26.89 NWB LLE till cleared by orthoPT OT eval and treat for deconditio funmilayo Essential hypertension 13618701 I10 lisinopril 5 mg qdmonitor bp and need to titrate Anemia 500399945 D50.8 monitor cbciron studies prn Chronic ob structive pulmonary disease 69695684 J41.1 carrying dx added to PMHmonitor respirator y status Osteoporosis 59923276 M8 1.0 added to PMH Neuropathy 304680255 G62 .89 carrying dx added to PMHmonitor sx Mood disorder 93487337 F 34.89 with underlying anxietyati van 0.5 mg bidzoloft 50 mg qd Hearing loss 31978998 H9 0.0 audiology eval prn Health Concerns Section Related Observation LastModified by Organization Detai ls LastModified Time None Recorded Concern Status LastModified by Organization Details LastModified Time None Recorded Payers Encounter Date Sequence Insurance Name Policy Number Policy Rock Covered Member ID Rock Member ID Guarantor Name 04/28/2024 1 [place] [employer] Trevon Yeagerx [id number] Trevon Aguilar 04/28/2024 2 [place] [facility] Trevon Yeagerx [id number] Trevon Aguilar Notes Date Note Type Note Provider Name and Address Organization Details Recorded Time 04/28 text/ html Patient is a 73 yo female admit from hospital after presenting with left knee pain and inability to be cared for in community. Patient had fall in Nov resulting in left knee fx dx from outside SNF 2 weeks prior. Patient lives alone with sister nearby however unable to care for self. Dx with adult FTT with noted hyponatremia due to SIADH, and hypokalemia improved with supplement and fluid restriction. Placed in ACL brace by ortho with f/u in place to be NWB x 3 months till cleared by ortho PMH significant forsiadhhtnanemiacopdosteoporosisneuropathym ood disorder NOS admit to facility for continued care and therapy Kenny Malave MD [address] [place] [address], [address], [place], [address] , [facility] [employer] 4 13:59:07 OBGyn Episode No OBEpisode recorded.
--- OUTSIDE RECORDS SUMMARY | 2024-05-19 08:07 | XMS_ITS | Data Portability ---
Author Organization 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 13:42:50 Syndrome of inappropria te vasopressin secretion 90289925 Active 2023 Kenny Malave MD [address], [address], [place], [address], [facility] 4 13:42:57 Unsteady when walking 32154520 Active 2023 Kenny Malave MD [address], [address], [place], [address] , [facility] 4 13:43:03 Essential hypertensio n 23623703 Active 2023 Kenny Malave MD [address], [address], [place], [address], [facility] 4 13:43:09 Anemia 344986679 Active 2023 Kenny Malave MD [address], [address], [place], [address], [facility] 4 13:43:14 Chronic obstructive pulmonary disease 92880789 Active 2023 Kenny Malave MD [address], [address], [place], [address], [facility] 4 13:43:19 Osteoporosi s 45641391 Active 2023 Kenny Malave MD [address], [address], [place], [address], [facility] 4 13:43:27 Neuropathy 384921662 Active 2023 Kenny Malave MD [address], [address], [place], [address], [facility] 4 13:43:33 Mood disorder 55105538 Active 2023 Kenny Malave MD [address], [address], [place], [address], [facility] 4 13:43:41 Closed fracture of left patella 4312046871803 9105 Active 2023 Kenny Malave MD [address], [address], [place], [address], [facility] 4 13:44:22 Hearing loss 42326451 Active 2023 Kenny Malave MD [address], [address], [place], [address], [facility] 4 13:56:41 Problem Notes None recorded. Medical Equipment None Reported. Allergies No known drug allergies Medications Not known to be on any medication Vitals Date Recorded Heart rate Respiratory rate Body temperature Body weight Systolic blood pressure Diastolic blood pressure Provider Name and Address Organization Details Last Updated DateTime 4 68 /min 18 /min 98 [degF] 91386.9 8 g 121 mm[Hg] 72 mm[Hg] Kenny Malave MD [address], [address], [place], [address], [facility] 4 13:35:58 Date Recorded Body weight Heart rate Respiratory rate Body temperature Oxygen saturation Oxygen saturation in Arterial blood by Pulse oximetry Systolic blood pressure Diastolic blood pressure Provider Name and Address Organization Details Last Updated DateTime 5 76155.9 8 g 84 /min 18 /min 98.2 [degF] 96 % 96 % 126 mm[Hg] 62 mm[Hg] Radha Hickey NP [address], [address], [place], [address], [facility] 5 17:37:02 Social History Question Answer Notes LastModified by Organizat ion Details LastModified Time Tobacco Smoking Status Former Smoker 2 ppd smoker quit early 2023 Kenny Malave MD [address], [address], [place], [address], [facility] 04/28/2024 13:58:17 Do You Have An Advance Directive? No Information not available 04/28/2024 What Is Your Level Of Alcohol Consumption? None Information not available 04/28/2024 What Is Your Code Status? DNI Information not available 04/30/2024 How Much Tobacco [...] Recorded Time Tdap 6 completed Joann Blum [facility] 05/05/2024 16:34:17 pneumococcal polysaccharide PPV23 6 [facility] 16:34:32 influenza, unspecified formulation 4 completed Joann Blum [facility] 05/05/2024 16:34:49 influenza, unspecified formulation 3 completed Joann tavarez [facility] 05/05/2024 16:34:56 influenza, unspecified formulation 2 completed Joann tavarez [place] - [facility] 05/05/2024 16:35:02 Past Encounters Encounter ID Performer Location Encounter Start Date Encounter Closed Date Diagnosis/Indication Diagnosis SNOMED-CT Code Diagnosis ICD10 Code Diagnosis Note [id number] Kenny Malave MD [facility] [address] [place] [address] 04/28/2024 13:33:15 04/30/2024 11:05:32 Adult failure to thrive syndrome 686552026 R62.7 see HPInot able to be cared for in communitym onitor need for increased servicesco ntinue supportive care at facilitypo or PO intake priordieta ry to evalmonito r weights Closed fra cture of left patella 5268999267 6278902 S82.015G prior fall with left knee fxACL brace in placeNWB till cleared by orthofollo w ortho recs and update with concernstr amadol 50 mg q 8 prnmonitor pain control Syndrome o f inappropriate vasopressin secretion 82530502 E22.2 monitor Na and need to adjust fluid restrictio n Acute hypokalemia 341494 03 E87.6 improved with supplement monitor lytes Unsteady when walking 22 615105 R26.89 NWB LLE till cleared by orthoPT OT eval and treat for deconditio funmilayo Essential hypertension 07577638 I10 lisinopril 5 mg qdmonitor bp and need to titrate Anemia 941137054 D50.8 monitor cbciron studies prn Chronic ob structive pulmonary disease 19221055 J41.1 carrying dx added to PMHmonitor respirator y status Osteoporosis 75428289 M8 1.0 added to PMH Neuropathy 808343713 G62 .89 carrying dx added to PMHmonitor sx Mood disorder 13208328 F 34.89 with underlying anxietyati van 0.5 mg bidzoloft 50 mg qd Hearing loss 47228919 H9 0.0 audiology eval prn [id number] Radha Hickey NP [facility] [address] [place] [address] 05/15/2024 12:28:25 05/15/2024 18:51:39 Adult failure to thrive syndrome 096874565 R62.7 see HPIshe was not able to be cared for in community with tibia fxmonitor need for increased servicesco ntinue supportive care at facilitydi etary to evalmonito r weights Closed fra cture of left patella 8523420444 7289147 S82.015G prior fall with left knee fxcontACL brace in placeNWB till cleared by orthofollo w ortho recs and update with concernstr amadol 50 mg q 8 prnmonitor pain controlfu with ortho [facility] on 05/19/24 Syndrome o f inappropriate vasopressin secretion 01728002 E22.2 monitor Na and need to adjust fluid restrictio nno s/s of siadh Acute hypokalemia 152419 03 E87.6 improved with supplement monitor lytes Unsteady when walking 22 538639 R26.89 NWB LLE till cleared by orthoPT OT eval and treat for deconditio ningmonito r Essential hypertension 40289754 I10 bp stablelisi nopril 5 mg qdmonitor bp and need to titrate Anemia 196986397 D50.8 monitor cbciron studies prn Chronic ob structive pulmonary disease 56652399 J41.1 carrying dx added to PMHmonitor respirator y statusadva ir inhaler 1 puff po bidalbuter ol for wheezes q 4 prn Osteoporosis 37816675 M8 1.0 hx ofcalcium Neuropathy 208377099 G62 .89 hx ofmonitor sx Mood disorder 36595166 F 34.89 with underlying anxietyati van 0.5 mg bidzoloft 50 mg qd Health Concerns Section Related Observation LastModified by Organization Detai ls LastModified Time None Recorded Concern Status LastModified by Organization Details LastModified Time None Recorded Advance Directives Directive N: Payers Encounter Date Sequence Insurance Name Policy Number Policy Rock Covered Member ID Rock Member ID Guarantor Name 04/28/2024 1 [place] [employer] Trevon Yeagerx [id number] Trevon Echavarriaoux 04/28/2024 2 [place] [facility] Trevon Lauren [id number] Trevon Lauren 05/15/2024 1 [place] [employer] Trevon Yeagerx [id number] Trevon Echavarriaoux 05/15/2024 2 [place] [facility] Trevon Echavarriaoux [id number] Trevon Yeagerx Notes Date Note Type Note Provider Name [...] continued care and therapy Kenny Malave MD [address] [place] [address], [address], [place], [address] [place] [address] 4 13:59:07 05/15 text/ html Pt is seen for an acute rounding visit. PMH significant for siadh, htn,anemia,copd,osteoporosis,neuropathy,mood disorder NOSDariel is a 73 yo female admitted from hospital after presenting with left knee pain and inability to be cared for in community. Patient had fall in Nov resulting in left knee fx dx from outside SNF 2 weeks prior. Patient lives alone with sister nearby however unable to care for self. 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 Placed in ACL brace by ortho with f/u in place on 05/19 to be NWB x 3 months till cleared by ortho. Pt was seen by psych on 05/11 and no medical changes recommended. She has been working with therapy daily. Per notes on 05/15 : Pt performed seated heel slide , seated LAQ with end range hold , seated adduction with pillow squeeze, standing to fww hip abd with min A for support/balance. Supine with brace locked SLR 3x10. Pt continues to require assist to lock and unlock brace due to vision limitation. On exam, Trevon is sitting up in a chair in NAD. She states her pain is managed with an occasional tramadol. She has a left tibia fracture with brace intact. Friend at bedside. Her lung notably diminished and she states she has an inhaler at home she doesn't have here. Radha Hickey NP [address], [address], [place], [address] , [facility] 5 18:51:38 OBGyn Episode No OBEpisode recorded.
--- OUTSIDE RECORDS SUMMARY | 2024-05-19 08:07 | XMS_ITS | Continuity of Care Document ---
Author Organization [facility] Address [address] [place] [address] Care Team Providers Care Middleware Architect Name Role Phone DANIEL PETER - 2ND [...] Recorded Time Adult failure to thrive syndrome 603840729 Active 2023 Kenny Malave MD [address] [place] [address], [facility] [address], [address], [facility] 13:42:50 Syndrome of inappropria te vasopressin secretion 31495099 Active 2023 Kenny Malave MD [address] [place] [address], [address], [place], [address], [facility] 13:42:57 Unsteady when walking 64826090 Active 2023 Kenny Malave MD [address] [place] [address], [address], [place], [address], [facility] 4 13:43:03 Essential hypertensio n 74180643 Active 2023 Kenny Malave MD [address] [place] [address], [address], [place], [address], [facility] 13:43:09 Anemia 956027924 Active 2023 Kenny Malave MD [address], [address], [place], [address], [facility] 4 13:43:14 Chronic obstructive pulmonary disease 43061586 Active 2023 Kenny Malave MD [address], [address], [place], [address], [facility] 4 13:43:19 Osteoporosi s 23865976 Active 2023 Kenny Malave MD [address], [address], [place], [address], [facility] 4 13:43:27 Neuropathy 835326523 Active 2023 Kenny Malave MD [address] [facility], [address], [place], [address], [facility] 4 13:43:33 Mood disorder 91004378 Active 2023 Kenny Malave MD [address] [facility] [address], [address], [place], [address], [facility] 4 13:43:41 Closed fracture of left patella 2099163251452 9105 Active 2023 Kenny Malave MD [address] [facility], [address], [place], [address], [facility] 4 13:44:22 Hearing loss 22292986 Active 2023 Kenny Malave MD [address] [facility] [address], [address], [place], [address], [facility] 4 13:56:41 Problem Notes None recorded. Medical Equipment None Reported. Allergies No known drug allergies Medications Not known to be on any medication Vitals Date Recorded Body weight Heart rate Respiratory rate Body temperature Oxygen saturation Oxygen saturation in Arterial blood by Pulse oximetry Systolic blood pressure Diastolic blood pressure Provider Name and Address Organization Details Last Updated DateTime 5 94412.9 8 g 84 /min 18 /min 98.2 [degF] 96 % 96 % 126 mm[Hg] 62 mm[Hg] Radha Hickey NP [address] [facility] [address], [address], [place], [address], [facility] 17:37:02 Social History Question Answer Notes LastModified by Organizat ion Details LastModified Time Tobacco Smoking Status Former Smoker 2 ppd smoker quit early 2023 Kenny Malave MD [address] [facility] [address], [address], [place], [address], [facility] 04/28/2024 13:58:17 Do You Have An Advance Directive? No Information not available 04/28/2024 What Is Your Level Of Alcohol Consumption? None Information not available 04/28/2024 What Is Your Code Status? [email or web address] [email or web address] Information not available 04/30/2024 How Much Tobacco [...] Recorded Time Tdap 6 completed Joann Blum [facility] 05/05/2024 16:34:17 pneumococcal polysaccharide PPV23 6 completed Joann Blum [facility] 05/05/2024 16:34:32 influenza, unspecified formulation 4 completed Joann Blum [facility] 05/05/2024 16:34:49 influenza, unspecified formulation 3 completed Joann Blum [facility] 05/05/2024 16:34:56 influenza, unspecified formulation 2 completed Joann Blum [facility] 05/05/2024 16:35:02 Past Encounters Encounter ID Performer Location Encounter Start Date Encounter Closed Date Diagnosis/Indication Diagnosis SNOMED-CT Code Diagnosis ICD10 Code Diagnosis Note [id number] Kenny Malave MD [address] [address] 04/28/2024 13:33:15 04/30/2024 11:05:32 Adult failure to thrive syndrome 795789858 R62.7 see HPInot able to be cared for in communitym onitor need for increased servicesco ntinue supportive care at facilitypo or PO intake priordieta ry to evalmonito r weights Closed fra cture of left patella 8338367452 6362003 S82.015G prior fall with left knee fxACL brace in placeNWB till cleared by orthofollo w ortho recs and update with concernstr amadol 50 mg q 8 prnmonitor pain control Syndrome o f inappropriate vasopressin secretion 39569575 E22.2 monitor Na and need to adjust fluid restrictio n Acute hypokalemia 035936 03 E87.6 improved with supplement monitor lytes Unsteady when walking 22 139805 R26.89 NWB LLE till cleared by orthoPT OT eval and treat for deconditio funmilayo Essential hypertension 93273519 I10 lisinopril 5 mg qdmonitor bp and need to titrate Anemia 954263061 D50.8 monitor cbciron studies prn Chronic ob structive pulmonary disease 26500286 J41.1 carrying dx added to PMHmonitor respirator y status Osteoporosis 15312167 M8 1.0 added to PMH Neuropathy 305177395 G62 .89 carrying dx added to PMHmonitor sx Mood disorder 02069813 F 34.89 with underlying anxietyati van 0.5 mg bidzoloft 50 mg qd Hearing loss 73971497 H9 0.0 audiology eval prn [id number] [facility] [address] 05/15/2024 12:28:25 05/15/2024 18:51:39 Adult failure to thrive syndrome 341024165 R62.7 see HPIshe was not able to be cared for in community with tibia fxmonitor need for increased servicesco ntinue supportive care at facilitydi etary to evalmonito r weights Closed fra cture of left patella 5862627138 4233121 S82.015G prior fall with left knee fxcontACL brace in placeNWB till cleared by orthofollo w ortho recs and update with concernstr amadol 50 mg q 8 prnmonitor pain controlfu with ortho [facility] on 05/19/24 Syndrome o f inappropriate vasopressin secretion 99201510 E22.2 monitor Na and need to adjust fluid restrictio nno s/s of siadh Acute hypokalemia 267739 03 E87.6 improved with supplement monitor lytes Unsteady when walking 22 545828 R26.89 NWB LLE till cleared by orthoPT OT eval and treat for deconditio ningmonito r Essential hypertension 71419652 I10 bp stablelisi nopril 5 mg qdmonitor bp and need to titrate Anemia 468286077 D50.8 monitor cbciron studies prn Chronic ob structive pulmonary disease 41378117 J41.1 carrying dx added to PMHmonitor respirator y statusadva ir inhaler 1 puff po bidalbuter ol for wheezes q 4 prn Osteoporosis 07004317 M8 1.0 hx ofcalcium Neuropathy 832836803 G62 .89 hx ofmonitor sx Mood disorder 67335950 F 34.89 with underlying anxietyati van 0.5 mg bidzoloft 50 mg qd Health Concerns Section Related Observation LastModified by Organization Detai ls LastModified Time None Recorded Concern Status LastModified by Organization Details LastModified Time None Recorded Payers Encounter Date Sequence Insurance Name Policy Number Policy Rock Covered Member ID Rock Member ID Guarantor Name 05/15/2024 1 [place] [employer] Trevon Echavarriaoux [id number] Trevonjosh Echavarriaoux 05/15/2024 2 [place] [facility] Trevon Echavarriaoux [id number] [facility] Notes Date Note Type Note Provider Name and Address Organization Details Recorded Time 05/15/2024 text/html Pt is seen for a n acute rounding visit. PMH significant for siadh, htn,anemia,copd,os teoporosis,neuropa thy,mood disorder Eladia is a 73 yo female admitted from [...] at home she doesn't have here. Radha Hickey, SHEBA [address] [facility], [address], [place], [address], [facility] 05/15/2024 18:51:38 OBGyn Episode No OBEpisode recorded.
== END 2024-05-19 07:54 | disposition home or self-care (01) ==
LOC: HO.HOSX 07:53
PROVIDERS: Visit Provider Physician Assistant
DX: M25.562 Pain in left knee (principal); S82.142D Displaced bicondylar fracture of left tibia, subsequent encounter for closed fracture with routine healing
CPT/HCPCS: 73560; 99212

== ENCOUNTER 2024-05-19 12:40 | Outpatient (AMB) | payer MEDICARE, MEDICAID, SELFPAY ==
--- NOTE | 2024-05-19 13:08 | A.OFFVIS_ITS ---
Intake Visit Reasons: OV - LT tibial plateau fx, DOI 04/01/24 Intake Note: Trevon is a 73 year old female who presents to the office today for a follow up Lt tibial plateau fracture, DOI a couple days after Thanksgiving. Patient states she is doing well, she is taking her medication as needed. Patient is still wo rking with PT. Allergies No Known Allergies [No Known Allergies*] Allergy (Verified 05/19/24 13:21) HPI HPI OV - LT tibial plateau fx, DOI 04/01/24: Details: Ms. Aguilar is a 73 year old female who presents to the office today for follow up of a Lt tibial plateau fracture. Date of injury 04/01/2024. Patient reports that she has been using the brace and working with physical therapy. She is currently at [facility]. She does admit however to placing some weight on the left lower extremity with transfers. [facility], [facility] Medical History De Quervain's tenosynovitis, left Arthritis of hand, left, degenerative Hearing impairment Smoker Depression Anxiety Osteoporosis Urinary urgency Urinary incontinence Varicose veins of bilateral lower extremities with pain Peripheral polyneuropathy Pure hypercholesterolemia Anemia Compression fracture of L4 vertebra with routine healing Lumbar degenerative disc disease Benign essential hypertension COPD (chronic obstructive pulmonary disease) Surgical History History of cystoscopy History of bilateral cataract extraction Family History Father No problems noted. Mother Lung cancer Sister Down syndrome Maternal Grandfather Lung cancer Maternal Grandmother Lung cancer Social History Household Members: None Housing: House Alcohol intake: never Patient Tobacco Use Status: Former Tobacco user Tobacco use type: Cigarette Cigarette Packs Per Day: 2 Cigarettes Per Day: 40 e-Cigarette/Vaping Use: Never Used Second Hand Smoke Exposure: Yes Advance Directives Date on File: 04/10/24 service: No Current occupational status: retired Cognitive needs: No Hearing needs: Yes Vision needs: Yes (Glasses) Review of Systems Const All systems reviewed & are unremarkable except as noted in HPI and below Physical Exam Const General: cooperative, healthy appearing and no acute distress Orientation/consciousness: patient oriented x3 Resp Effort & Inspection: normal respiratory effort and able to speak in complete sentences Cardio Rate: regular rate Peripheral pulses: Peripheral pulses 2+ throughout Skin General skin exam: no rashes or lesions noted Lesions: no lesions Rashes: no rashes Neuro General: patient oriented x3 Extrem Other: Left knee: Normal to inspection. No ecchymosis, erythema, or joint effusion. Tenderness to palpation along the lateral joint line. No tenderness to palpation medial joint line. Able to perform flexion and plantar flexion on the left, but is weaker than the right. Pedal pulse intact. Assessment & Plan Assessment & Plan (1) Fracture of left tibial plateau: Code(s): S82.142A - Displaced bicondylar fracture of left tibia, initial encounter for closed fracture Category: Medical Plan Ms. Aguilar is a 73 year old female who presents to the office today for follow up of a Lt tibial plateau fracture. Date of injury 04/01/2024. Patient reports that she has been using the brace and working with physical therapy. She is currently at [facility]. She does admit however to placing some weight on the left lower extremity with transfers. I discussed with the patient the importance of nonweightbearing. She reports however it is very difficult to remain nonweightbearing on the left lower extremity and therefore she will likely continue to weightbear on the left lower extremity. She should remain in the brace. I instructed the patient that she should remain nonweightbearing for a total of 3 months. She will continue to work with physical therapy on gentle left knee range of motion as well as glute core and quad strengthening. I would also like her to work with physical therapy and gait training nonweightbearing left lower extremity with a walker. I would like to see her back in the office in 4-6 weeks with repeat x-rays soon er if needed. X-rays of the left knee were obtained in the office today and reviewed by me which reveal routine healing of left tibial plateau fracture. Orders: Orders XR knee LT 2V Today M25.569 - Pain in unspecified knee PT Evaluation and Treatment Today S82.142A - Displaced bicondylar fracture of left tibia, initial encounter for closed fracture Coding Level of Care Code Global (43511) Diagnoses Fracture of left tibial plateau S82.142A
== END 2024-05-19 13:59 | disposition home or self-care (01) ==
PROVIDERS: PCP Internal Medicine; Visit Provider Physician Assistant
DX: S82.142A Displaced bicondylar fracture of left tibia, initial encounter for closed fracture (principal)
CPT/HCPCS: 99213

== ENCOUNTER → 2024-05-19 13:07 | Outpatient (BNV) | payer MEDICARE, MEDICAID, SELFPAY | PROVIDERS: Visit Provider Radiology Diagnostic Radiology | DX: M25.562 Pain in left knee (principal) | CPT/HCPCS: 73560 ==

== ENCOUNTER 2024-06-30 09:43 | Outpatient (REF) | payer MEDICARE, MEDICAID, SELFPAY ==
--- OUTSIDE RECORDS SUMMARY | 2024-07-01 11:18 | XMS_ITS | Encounter Summary ---
Author Organization [facility] Address [address] [place] [address] Care Team Providers Care Spanisher Name Role Phone Alan Chanel MD Primary Care Provider Encounter Details Date Type Department Care Team (Late st Contact Info) Description 05/11/[address] [facility] - Main Lab [address] [place] [address] Kenny Malave MD 38 [facility] [address] [place], [address] Essential (primary) hypertension Social History Tobacco Use Types Packs/Day Years Used Date Smoking Tobacco: Never Assessed Comments Unknown Sex and Gender Information Value Date Recorded Sex Assigned at Not on file Legal Sex Female 12:48 PM EST Gender Identity Not on file Sexual Orientation Not on file documented as of this encounter Plan of Treatment Not on file documented as of this encounter Procedures Procedure Name Priority Date/Time Associated Diagnosis Comments COMPLETE BLOOD COUNT Routine 05/12/2024 5:47 AM EST Essential (primary) hypertension BASIC METABOLIC PANEL Routine 05/12/2024 5:47 AM EST Essential (primary) hypertension documented in this encounter Results * Basic metabolic panel (05/12/2024 5:47 AM EST) Sodium 135 133 - 145 mmol/L LAB CHEMISTRY METHOD 05/12/2024 9:30 AM EST [facility] Potassium 4.0 3.5 - 5.5 mmol/L LAB CHEMISTRY METHOD 05/12/2024 9:30 AM EST [facility] Chloride 101 96 - 110 mmol/L LAB CHEMISTRY METHOD 05/12/2024 9:30 AM [facility] CO2 26 21 - 32 mmol/L LAB CHEMISTRY METHOD 05/12/2024 9:30 AM [facility] Anion Gap 8 3 - 11 LAB CHEMISTRY METHOD 05/12/2024 9:30 AM [facility] Glucose 84 70 - 100 mg/dL LAB CHEMISTRY METHOD 05/12/2024 9:30 AM [facility] BUN 14 5 - 25 mg/dL LAB CHEMISTRY METHOD 05/12/2024 9:30 AM [facility] Creatinine 0.56 0.50 - 1.10 mg/dL LAB CHEMISTRY METHOD 05/12/2024 9:30 AM [facility] eGFR 96 >=60 mL/min/1. 73m2 LAB CHEMISTRY METHOD 05/12/2024 9:30 AM [facility] LAB Comment:Calculation based on the??Chronic Kidney Disease Epidemiology Collaboration (CKD-EPI) equation refit??without adjustment for race. BUN/Creatinine Ratio 25.0 LAB CHEMISTRY METHOD 05/12/2024 9:30 AM [facility] Calcium 8.5 8.5 - 10.5 mg/dL LAB CHEMISTRY METHOD 05/12/2024 9:30 AM [facility] Blood Venous blood specimen / Unknown Venipuncture / Unknown 05/12/2024 5:47 AM EST 05/12/2024 8:50 AM EST us Kenny aMlave MD LAB BLOOD ORDERABLES Final Resul t [facility] [address] [place] [address], * (ABNORMAL) Complete blood count (05/12/2024 5:47 AM EST) WBC 3.6(L) 4.8 - 10.8 K/mcL LAB HEMETOLOGY METHOD 05/12/2024 9:09 AM [facility] RBC 3.70(L) 3.80 - 4.80 M/mcL LAB HEMETOLOGY METHOD 05/12/2024 9:09 AM [facility] Hemoglobin 10.4(L) 11.5 - 16.0 g/dL LAB HEMETOLOGY METHOD 05/12/2024 9:09 AM [facility] Hematocrit 30.8(L) 35.0 - 47.0 % LAB HEMETOLOGY METHOD 05/12/2024 9:09 AM [facility] MCV 84.2 79.0 - 98.0 FL LAB HEMETOLOGY METHOD 05/12/2024 9:09 AM [facility] MCH 28.4 27.0 - 32.0 pcg LAB HEMETOLOGY METHOD 05/12/2024 9:09 AM [facility] MCHC 33.8 32.0 - 37.0 g/dL LAB HEMETOLOGY METHOD 05/12/2024 9:09 AM [facility] RDW 13.5 11.0 - 15.0 % LAB HEMETOLOGY METHOD 05/12/2024 9:09 AM [facility] Platelets 543(H) 130 - 400 K/mcL LAB HEMETOLOGY METHOD 05/12/2024 9:09 AM [facility] MPV 8.3 7.0 - 11.0 FL LAB HEMETOLOGY METHOD 05/12/2024 9:09 AM [facility] NRBC 0.0 <1.0 % LAB HEMETOLOGY METHOD 05/12/2024 9:09 AM [facility] NRBC Absolute 0.00 <0.10 K/mcL LAB HEMETOLOGY METHOD 05/12/2024 9:09 AM [facility] Blood Venous blood specimen / Unknown Venipuncture / Unknown 05/12/2024 5:47 AM EST 05/12/2024 8:50 AM EST us Kenny Malave MD LAB BLOOD ORDERABLES Final Resul t [facility] ([facility]) [facility] [address] [place] [address], [place] [phone] documented in this encounter Visit Diagnoses Diagnosis Essential (primary) hypertension Unspecified essential hypertension documented in this encounter Care Teams Spanisher Relationship Specialty Start Date End Date Alan Chanel MD [address] [place] [address] Dr [address] [place], [place] PCP - General Internal Medicine 03/12/24 documented as of this encounter
--- OUTSIDE RECORDS SUMMARY | 2024-07-01 11:18 | XMS_ITS | Encounter Summary ---
Author Organization [facility] Address [address] [place] [address] Care Team Providers Care Emblem Drawer In Name Role Phone Alan Chanel MD Primary Care Provider Encounter Details Date Type Department Care Team (Late st Contact Info) Description 04/12/2024 Lab Requisition [facility] - Main Lab [address] [facility] [place] [address] Ever Reyna MD [address] [place] [address] Encounter for other general examination Social History Tobacco Use Types Packs/Day Years [...] Procedure Name Priority Date/Time Associated Diagnosis Comments CBC WITH AUTO DIFFERENTIAL Routine 04/12/2024 7:35 AM EST Encounter for other general examination CBC AND DIFFERENTIAL Routine 04/12/2024 7:35 AM EST Encounter for other general examination MAGNESIUM Routine 04/12/2024 7:35 AM EST Encounter for other general examination COMPREHENSIVE METABOLIC PANEL Routine 04/12/2024 7:35 AM EST Encounter for other general examination documented in this encounter Results * (ABNORMAL) CBC auto differential (04/12/2024 7:35 AM EST) WBC 6.1 4.8 - 10.8 K/[facility] LAB HEMETOLOGY METHOD 04/12/2024 10:32 AM [facility] RBC 4.20(L) 4.50 - 5.50 M/mcL LAB HEMETOLOGY METHOD 04/12/2024 10:32 AM [facility] Hemoglobin 11.8(L) 13.5 - 17.5 g/dL LAB HEMETOLOGY METHOD 04/12/2024 10:32 AM [facility] Hematocrit 36.0(L) 42.0 - 54.0 % LAB HEMETOLOGY METHOD 04/12/2024 10:32 AM [facility] LAB MCV 85.9 79.0 - 98.0 FL LAB HEMETOLOGY METHOD 04/12/2024 10:32 AM [facility] LAB MCH 28.2 27.0 - 32.0 pcg LAB HEMETOLOGY METHOD 04/12/2024 10:32 AM [facility] LAB MCHC 32.8 32.0 - 37.0 g/dL LAB HEMETOLOGY METHOD 04/12/2024 10:32 AM [facility] LAB RDW 13.2 11.0 - 15.0 % LAB HEMETOLOGY METHOD 04/12/2024 10:32 AM [facility] Platelets 424(H) 130 - 400 K/mcL LAB HEMETOLOGY METHOD 04/12/2024 10:32 AM [facility] LAB MPV 8.6 7.0 - 11.0 FL LAB HEMETOLOGY METHOD 04/12/2024 10:32 AM [facility] NRBC 0.0 <1.0 % LAB HEMETOLOGY METHOD 04/12/2024 10:32 AM [facility] NRBC Absolute 0.00 <0.10 K/mcL LAB HEMETOLOGY METHOD 04/12/2024 10:32 AM [facility] Neutrophils Relative 70.8 % LAB HEMETOLOGY METHOD 04/12/2024 10:32 AM [facility] Lymphocytes Relative 14.7 % LAB HEMETOLOGY METHOD 04/12/2024 10:32 AM [facility] Monocytes Relative 13.7 % LAB HEMETOLOGY METHOD 04/12/2024 10:32 AM [facility] Eosinophils Relative 0.0 % LAB HEMETOLOGY METHOD 04/12/2024 10:32 AM [facility] Basophils Relative 0.3 % LAB HEMETOLOGY METHOD 04/12/2024 10:32 AM [facility] Immature Granulocytes Relative 0.5 % LAB HEMETOLOGY METHOD 04/12/2024 10:32 AM [facility] Neutrophils Absolute 4.32 1.50 - 7.00 K/mcL LAB HEMETOLOGY METHOD 04/12/2024 10:32 AM [facility] Lymphocytes Absolute 0.90(L) 1.00 - 5.00 K/mcL LAB HEMETOLOGY METHOD 04/12/2024 10:32 AM [facility] Monocytes Absolute 0.84 0.20 - 1.00 K/mcL LAB HEMETOLOGY METHOD 04/12/2024 10:32 AM [facility] Eosinophils Absolute 0.00 0.00 - 0.50 K/mcL LAB HEMETOLOGY METHOD 04/12/2024 10:32 AM [facility] Basophils Absolute 0.02 0.00 - 0.20 K/mcL LAB HEMETOLOGY METHOD 04/12/2024 10:32 AM [facility] Immature Granulocytes Absolute 0.03 0.00 - 0.03 K/mcL LAB HEMETOLOGY METHOD 04/12/2024 10:32 AM [facility] Blood Venous blood specimen / Unknown Venipuncture / Unknown 04/12/2024 7:35 AM EST 04/12/2024 10:02 AM EST Ever Reyna MD LAB BLOOD ORDERABLES Final Res ult [facility] [address] [place] [address], [place] [phone] * (ABNORMAL) Magnesium (04/12/2024 7:35 AM EST) Magnesium 1.7(L) 1.9 - 2.6 mg/dL LAB CHEMISTRY METHOD 04/12/2024 10:55 AM EST [facility] Blood Venous blood specimen / Unknown Venipuncture / Unknown 04/12/2024 7:35 AM EST 04/12/2024 10:02 AM EST Ever Reyna MD LAB BLOOD ORDERABLES Final Res ult Performing Organization Address [facility]/ZIP Co de Phone Number [facility] [address] [place] [address], [place] [phone] * (ABNORMAL) Comprehensive metabolic panel (04/12/2024 7:35 AM EST) Sodium 130(L) 133 - 145 mmol/L LAB CHEMISTRY METHOD 04/12/2024 10:56 AM [facility] Potassium 4.5 3.5 - 5.5 mmol/L LAB CHEMISTRY METHOD 04/12/2024 10:56 AM [facility] Chloride 97 96 - 110 mmol/L LAB CHEMISTRY METHOD 04/12/2024 10:56 AM [facility] CO2 25 21 - 32 mmol/L LAB CHEMISTRY METHOD 04/12/2024 10:56 AM [facility] Anion Gap 8 3 - 11 LAB CHEMISTRY METHOD 04/12/2024 10:56 AM [facility] Glucose 77 70 - 100 mg/dL LAB CHEMISTRY METHOD 04/12/2024 10:56 AM [facility] BUN 16 5 - 25 mg/dL LAB CHEMISTRY METHOD 04/12/2024 10:56 AM [facility] Creatinine 0.68(L) 0.70 - 1.30 mg/dL LAB CHEMISTRY METHOD 04/12/2024 10:56 AM [facility] eGFR 98 >=60 mL/min/1. 73m2 LAB CHEMISTRY METHOD 04/12/2024 10:56 AM [facility] Comment:Calculation based on the??Chronic Kidney Disease Epidemiology Collaboration (CKD-EPI) equation refit??without adjustment for race. BUN/Creatinine Ratio 23.5 LAB CHEMISTRY METHOD 04/12/2024 10:56 AM [facility] Calcium 9.9 8.5 - 10.5 mg/dL LAB CHEMISTRY METHOD 04/12/2024 10:56 AM [facility] AST (SGOT) 38 10 - 42 unit/L LAB CHEMISTRY METHOD 04/12/2024 10:56 AM [facility] ALT (SGPT) 24 10 - 60 unit/L LAB CHEMISTRY METHOD 04/12/2024 10:56 AM [facility] Alkaline Phosphatase 117 42 - 121 unit/L LAB CHEMISTRY METHOD 04/12/2024 10:56 AM [facility] Total Protein 6.7 6.0 - 8.0 g/dL LAB CHEMISTRY METHOD 04/12/2024 10:56 AM [facility] Albumin 3.2 3.2 - 5.0 g/dL LAB CHEMISTRY METHOD 04/12/2024 10:56 AM [facility] Total Bilirubin 0.3 0.0 - 1.4 mg/dL LAB CHEMISTRY METHOD 04/12/2024 10:56 AM [facility] Blood Venous blood specimen / Unknown Venipuncture / Unknown 04/12/2024 7:35 AM EST 04/12/2024 10:02 AM EST us Ever Reyna MD LAB BLOOD ORDERABLES Final Res ult [facility] [address] [place] [address], documented in this encounter Visit Diagnoses Diagnosis Encounter for other general examination documented in this encounter Care Teams Emblem Drawer In Relationship Specialty Start Date End Date Alan Chanel MD [address] [place] [address] Dr [address] [place], [place] PCP - General Internal Medicine 03/12/24 documented as of this encounter
--- OUTSIDE RECORDS SUMMARY | 2024-07-01 11:18 | XMS_ITS | Encounter Summary ---
Author Organization [facility] Address [address] [place] [address] Care Team Providers Care Trailer Driver Name Role Phone Alan Chanel MD Primary Care Provider Encounter Details Date Type Department Care Team (Late st Contact Info) Description 04/21/2024 Lab Requisition [facility] - Main Lab [address] [place] [address] Ever Reyna MD [address] [place] [address] Encounter for other general examination Social History [...] Procedure Name Priority Date/Time Associated Diagnosis Comments LIPASE Routine 04/21/2024 6:13 AM EST Encounter for other general examination AMYLASE Routine 04/21/2024 6:13 AM EST Encounter for other general examination COMPREHENSIVE METABOLIC PANEL Routine 04/21/2024 6:13 AM EST Encounter for other general examination documented in this encounter Results * Lipase (04/21/2024 6:13 AM EST) Lipase 47 13 - 75 unit/L LAB CHEMISTRY METHOD 04/21/2024 10:03 AM EST [facility]) [facility] Blood Venous blood specimen / Unknown Venipuncture / Unknown 04/21/2024 6:13 AM EST 04/21/2024 8:46 AM EST us Ever Reyna MD LAB BLOOD ORDERABLES Final Res ult Performing Organization Address [facility]/ZIP Co de Phone Number [facility] [address] [place] [address], [place] [phone] * Amylase (04/21/2024 6:13 AM EST) [facility] Amylase 51 25 - 115 unit/L LAB CHEMISTRY METHOD 04/21/2024 10:03 AM [facility] Blood Venous blood specimen / Unknown Venipuncture / Unknown 04/21/2024 6:13 AM EST 04/21/2024 8:46 AM EST us Ever Reyna MD LAB BLOOD ORDERABLES Final Res ult Performing Organization Address [facility] Co de Phone Number [facility] [address] [place] [address], [place] [phone] * (ABNORMAL) Comprehensive metabolic panel (04/21/2024 6:13 AM EST) [facility] Sodium 126(L) 133 - 145 mmol/L LAB CHEMISTRY METHOD 04/21/2024 10:06 AM [facility] Potassium 3.7 3.5 - 5.5 mmol/L LAB CHEMISTRY METHOD 04/21/2024 10:06 AM [facility] Chloride 91(L) 96 - 110 mmol/L LAB CHEMISTRY METHOD 04/21/2024 10:06 AM [facility] CO2 26 21 - 32 mmol/L LAB CHEMISTRY METHOD 04/21/2024 10:06 AM [facility] Anion Gap 9 3 - 11 LAB CHEMISTRY METHOD 04/21/2024 10:06 AM [facility] Glucose 82 70 - 100 mg/dL LAB CHEMISTRY METHOD 04/21/2024 10:06 AM [facility] BUN 10 5 - 25 mg/dL LAB CHEMISTRY METHOD 04/21/2024 10:06 AM [facility] Creatinine 0.67(L) 0.70 - 1.30 mg/dL LAB CHEMISTRY METHOD 04/21/2024 10:06 AM [facility] eGFR 98 >=60 mL/min/1. 73m2 LAB CHEMISTRY METHOD 04/21/2024 10:06 AM [facility] Comment:Calculation based on the??Chronic Kidney Disease Epidemiology Collaboration (CKD-EPI) equation refit??without adjustment for race. BUN/Creatinine Ratio 14.9 LAB CHEMISTRY METHOD 04/21/2024 10:06 AM [facility] Calcium 8.8 8.5 - 10.5 mg/dL LAB CHEMISTRY METHOD 04/21/2024 10:06 AM [facility] AST (SGOT) 208(H) 10 - 42 unit/L LAB CHEMISTRY METHOD 04/21/2024 10:06 AM [facility] ALT (SGPT) 210(H) 10 - 60 unit/L LAB CHEMISTRY METHOD 04/21/2024 10:06 AM [facility] Alkaline Phosphatase 210(H) 42 - 121 unit/L LAB CHEMISTRY METHOD 04/21/2024 10:06 AM [facility] Total Protein 6.5 6.0 - 8.0 g/dL LAB CHEMISTRY METHOD 04/21/2024 10:06 AM [facility] Albumin 3.2 3.2 - 5.0 g/dL LAB CHEMISTRY METHOD 04/21/2024 10:06 AM [facility] Total Bilirubin 0.3 0.0 - 1.4 mg/dL LAB CHEMISTRY METHOD 04/21/2024 10:06 AM [facility] Blood Venous blood specimen / Unknown Venipuncture / Unknown 04/21/2024 6:13 AM EST 04/21/2024 8:46 AM EST us Ever Reyna MD LAB BLOOD ORDERABLES Final Res ult [facility] ([facility]) [facility] [address] [place] [address], documented in this encounter Visit Diagnoses Diagnosis Encounter for other general examination documented in this encounter Care Teams Trailer Driver Relationship Specialty Start Date End Date Alan Chanel MD [address] [place] [address] Dr [address] [place], [place] PCP - General Internal Medicine 03/12/24 documented as of this encounter
--- OUTSIDE RECORDS SUMMARY | 2024-07-01 11:18 | XMS_ITS | Encounter Summary ---
Author Organization [facility] Address [address] [place] [address] Care Team Providers Care Machine Clothing Man Name Role Phone Alan Chanel MD Primary Care Provider [phone] Encounter Details Date Type Department Care Team (Late st Contact Info) Description 05/28/[address] [facility] - Main Lab [address] [place] [address] Kenny Malave MD 38 [facility] [address] [place], [address] Polyneuropathy, unspecified; Unspecified protein-calorie malnutrition (CMS/HCC); Chronic obstructive pulmonary disease, unspecified (CMS/HCC) Social History Tobacco Use Types Packs/Day Years [...] Procedure Name Priority Date/Time Associated Diagnosis Comments BASIC METABOLIC PANEL Routine 05/28/2024 6:03 AM EST Polyneuropathy, unspecified Unspecified protein-calorie malnutrition (CMS/HCC) Chronic obstructive pulmonary disease, unspecified (CMS/HCC) documented in this encounter Results * (ABNORMAL) Basic metabolic panel (05/28/2024 6:03 AM EST) Sodium 135 133 - 145 mmol/L LAB CHEMISTRY METHOD 05/28/2024 9:40 AM EST [facility] Potassium 3.3(L) 3.5 - 5.5 mmol/L LAB CHEMISTRY METHOD 05/28/2024 9:40 AM [facility] Chloride 103 96 - 110 mmol/L LAB CHEMISTRY METHOD 05/28/2024 9:40 AM [facility] CO2 27 21 - 32 mmol/L LAB CHEMISTRY METHOD 05/28/2024 9:40 AM [facility] Anion Gap 5 3 - 11 LAB CHEMISTRY METHOD 05/28/2024 9:40 AM [facility] Glucose 84 70 - 100 mg/dL LAB CHEMISTRY METHOD 05/28/2024 9:40 AM [facility] BUN 13 5 - 25 mg/dL LAB CHEMISTRY METHOD 05/28/2024 9:40 AM [facility] Creatinine 0.56 0.50 - 1.10 mg/dL LAB CHEMISTRY METHOD 05/28/2024 9:40 AM [facility] LAB eGFR 96 >=60 mL/min/1. 73m2 LAB CHEMISTRY METHOD 05/28/2024 9:40 AM [facility] LAB Comment:Calculation based on the??Chronic Kidney Disease Epidemiology Collaboration (CKD-EPI) equation refit??without adjustment for race. BUN/Creatinine Ratio 23.2 LAB CHEMISTRY METHOD 05/28/2024 9:40 AM [facility] Calcium 8.3(L) 8.5 - 10.5 mg/dL LAB CHEMISTRY METHOD 05/28/2024 9:40 AM [facility] Blood Venous blood specimen / Unknown Venipuncture / Unknown 05/28/2024 6:03 AM EST 05/28/2024 8:39 AM EST us Kenny Malave MD LAB BLOOD ORDERABLES Final Resul t [facility] [address] [place] [address], documented in this encounter Visit Diagnoses Diagnosis Polyneuropathy, unspecified Unspecified protein-calorie malnutrition (CMS/HCC) Unspecified protein-calorie malnutrition Chronic obstructive pulmonary disease, unspecified (CMS/HCC) documented in this encounter Care Teams Machine Clothing Man Relationship Specialty Start Date End Date Alan Chanel MD [address] [place] [address] Dr [address] [place] PCP - General Internal Medicine 03/12/24 documented as of this encounter
--- OUTSIDE RECORDS SUMMARY | 2024-07-01 11:18 | XMS_ITS | Encounter Summary ---
Author Organization [facility] Address [address] [place] [address] Care Team Providers Care Semiconductor Packages Tester Name Role Phone Alan Chanel MD Primary Care Provider Encounter Details Date Type Department Care Team (Late st Contact Info) Description 04/20/2024 Lab Requisition [facility] - Main Lab [address] [place] [address] Ever Reyna MD [address] [place] [address] Encounter for other general examination Social History [...] Associated Diagnosis Comments COMPLETE BLOOD COUNT Routine 04/20/2024 5:20 AM EST Encounter for other general examination COMPREHENSIVE METABOLIC PANEL Routine 04/20/2024 5:20 AM EST Encounter for other general examination documented in this encounter Results * (ABNORMAL) Complete blood count (04/20/2024 5:20 AM EST) WBC 3.3(L) 4.8 - 10.8 K/[facility] LAB HEMETOLOGY METHOD 04/20/2024 9:17 AM EST [facility] RBC 4.20(L) 4.50 - 5.50 M/[facility] LAB HEMETOLOGY METHOD 04/20/2024 9:17 AM EST [facility] Hemoglobin 11.7(L) 13.5 - 17.5 g/dL LAB HEMETOLOGY METHOD 04/20/2024 9:17 AM [facility] Hematocrit 35.0(L) 42.0 - 54.0 % LAB HEMETOLOGY METHOD 04/20/2024 9:17 AM [facility] MCV 83.7 79.0 - 98.0 FL LAB HEMETOLOGY METHOD 04/20/2024 9:17 AM [facility] MCH 28.0 27.0 - 32.0 pcg LAB HEMETOLOGY METHOD 04/20/2024 9:17 AM [facility] MCHC 33.4 32.0 - 37.0 g/dL LAB HEMETOLOGY METHOD 04/20/2024 9:17 AM [facility] RDW 13.3 11.0 - 15.0 % LAB HEMETOLOGY METHOD 04/20/2024 9:17 AM [facility] Platelets 437(H) 130 - 400 K/mcL LAB HEMETOLOGY METHOD 04/20/2024 9:17 AM [facility] MPV 8.3 7.0 - 11.0 FL LAB HEMETOLOGY METHOD 04/20/2024 9:17 AM [facility] NRBC 0.0 <1.0 % LAB HEMETOLOGY METHOD 04/20/2024 9:17 AM [facility] NRBC Absolute 0.00 <0.10 K/mcL LAB HEMETOLOGY METHOD 04/20/2024 9:17 AM [facility] Blood Venous blood specimen / Unknown Venipuncture / Unknown 04/20/2024 5:20 AM EST 04/20/2024 8:31 AM EST us Ever Reyna MD LAB BLOOD ORDERABLES Final Res ult [facility] [address] [place] [address], * (ABNORMAL) Comprehensive metabolic panel (04/20/2024 5:20 AM EST) Sodium 128(L) 133 - 145 mmol/L LAB CHEMISTRY METHOD 04/20/2024 10:20 AM [facility] Potassium 4.0 3.5 - 5.5 mmol/L LAB CHEMISTRY METHOD 04/20/2024 10:20 AM [facility] Chloride 90(L) 96 - 110 mmol/L LAB CHEMISTRY METHOD 04/20/2024 10:20 AM [facility] CO2 25 21 - 32 mmol/L LAB CHEMISTRY METHOD 04/20/2024 10:20 AM [facility] Anion Gap 13(H) 3 - 11 LAB CHEMISTRY METHOD 04/20/2024 10:20 AM [facility] Glucose 79 70 - 100 mg/dL LAB CHEMISTRY METHOD 04/20/2024 10:20 AM [facility] BUN 11 5 - 25 mg/dL LAB CHEMISTRY METHOD 04/20/2024 10:20 AM [facility] Creatinine 0.65(L) 0.70 - 1.30 mg/dL LAB CHEMISTRY METHOD 04/20/2024 10:20 AM [facility] LAB eGFR 99 >=60 mL/min/1. 73m2 LAB CHEMISTRY METHOD 04/20/2024 10:20 AM [facility] LAB Comment:Calculation based on the??Chronic Kidney Disease Epidemiology Collaboration (CKD-EPI) equation refit??without adjustment for race. BUN/Creatinine Ratio 16.9 LAB CHEMISTRY METHOD 04/20/2024 10:20 AM [facility] Calcium 9.1 8.5 - 10.5 mg/dL LAB CHEMISTRY METHOD 04/20/2024 10:20 AM [facility] AST (SGOT) 309(H) 10 - 42 unit/L LAB CHEMISTRY METHOD 04/20/2024 10:20 AM [facility] ALT (SGPT) 248(H) 10 - 60 unit/L LAB CHEMISTRY METHOD 04/20/2024 10:20 AM [facility] Alkaline Phosphatase 209(H) 42 - 121 unit/L LAB CHEMISTRY METHOD 04/20/2024 10:20 AM [facility] Total Protein 6.4 6.0 - 8.0 g/dL LAB CHEMISTRY METHOD 04/20/2024 10:20 AM [facility] Albumin 3.1(L) 3.2 - 5.0 g/dL LAB CHEMISTRY METHOD 04/20/2024 10:20 AM [facility] Total Bilirubin 0.3 0.0 - 1.4 mg/dL LAB CHEMISTRY METHOD 04/20/2024 10:20 AM [facility] Blood Venous blood specimen / Unknown Venipuncture / Unknown 04/20/2024 5:20 AM EST 04/20/2024 8:31 AM EST us Ever Reyna MD LAB BLOOD ORDERABLES Final Res ult [facility] [address] [place] [address], documented in this encounter Visit Diagnoses Diagnosis Encounter for other general examination documented in this encounter Care Teams Semiconductor Packages Tester Relationship Specialty Start Date End Date Alan Chaenl MD [address] [facility] [address] [place] PCP - General Internal Medicine 03/12/24 documented as of this encounter
--- OUTSIDE RECORDS SUMMARY | 2024-07-01 11:18 | XMS_ITS | Encounter Summary ---
Author Organization [facility] Address [address] [place] [address] Care Team Providers Care Rug Dyer Helper Name Role Phone Alan Chanel MD Primary Care Provider [phone]- [phone] Encounter Details Date Type Department Care Team (Late st Contact Info) Description 06/04/[address] [facility] - Main Lab [address] [place] [address] Kenny Malave MD 38 [facility] 204 [place], [address] Other intermediate teacher (current) drug therapy Social History Tobacco Use Types Packs/Day Years [...] Associated Diagnosis Comments BASIC METABOLIC PANEL Routine 06/04/2024 5:36 AM EST Other intermediate teacher (current) drug therapy documented in this encounter Results * (ABNORMAL) Basic metabolic panel (06/04/2024 5:36 AM EST) Sodium 138 133 - 145 mmol/L LAB CHEMISTRY METHOD 06/04/2024 11:25 AM EST [facility] Potassium 3.2(L) 3.5 - 5.5 mmol/L LAB CHEMISTRY METHOD 06/04/2024 11:25 AM EST [facility] Chloride 102 96 - 110 mmol/L LAB CHEMISTRY METHOD 06/04/2024 11:25 AM EST [facility] CO2 28 21 - 32 mmol/L LAB CHEMISTRY METHOD 06/04/2024 11:25 AM EST [facility] Anion Gap 8 3 - 11 LAB CHEMISTRY METHOD 06/04/2024 11:25 AM [facility] Glucose 71 70 - 100 mg/dL LAB CHEMISTRY METHOD 06/04/2024 11:25 AM EST [facility] BUN 18 5 - 25 mg/dL LAB CHEMISTRY METHOD 06/04/2024 11:25 AM [facility] Creatinine 0.57 0.50 - 1.10 mg/dL LAB CHEMISTRY METHOD 06/04/2024 11:25 AM [facility] eGFR 95 >=60 mL/min/1. 73m2 LAB CHEMISTRY METHOD 06/04/2024 11:25 AM [facility] Comment:Calculation based on the??Chronic Kidney Disease Epidemiology Collaboration (CKD-EPI) equation refit??without adjustment for race. BUN/Creatinine Ratio 31.6 LAB CHEMISTRY METHOD 06/04/2024 11:25 AM [facility] Calcium 8.8 8.5 - 10.5 mg/dL LAB CHEMISTRY METHOD 06/04/2024 11:25 AM [facility] Blood Venous blood specimen / Unknown Venipuncture / Unknown 06/04/2024 5:36 AM EST 06/04/2024 9:58 AM EST us Kenny Malave MD LAB BLOOD ORDERABLES Final Resul t [facility] [address] [place] [address], documented in this encounter Visit Diagnoses Diagnosis Other intermediate teacher (current) drug therapy documented in this encounter Care Teams Rug Dyer Helper Relationship Specialty Start Date End Date Alan Chanel MD [address] [place] [address] Dr Reyna [address] [place] PCP - General Internal Medicine 03/12/24 documented as of this encounter
--- OUTSIDE RECORDS SUMMARY | 2024-07-01 11:18 | XMS_ITS | Encounter Summary ---
Author Organization [facility] Address [address] [place] [address] Care Team Providers Care Accounts Collector Name Role Phone Alan Chanel MD Primary Care Provider Encounter Details Date Type Department Care Team (Late st Contact Info) Description 05/18/2024 Lab Requisition [facility] - Main Lab [address] [place] [address] Kenny Malave MD 38 [facility] 204 [place], [address] Essential (primary) hypertension Social History Tobacco [...] Associated Diagnosis Comments COMPLETE BLOOD COUNT Routine 05/19/2024 6:53 AM EST Essential (primary) hypertension BASIC METABOLIC PANEL Routine 05/19/2024 6:53 AM EST Essential (primary) hypertension documented in this encounter Results * (ABNORMAL) Basic metabolic panel (05/19/2024 6:53 AM EST) Sodium 134 133 - 145 mmol/L LAB CHEMISTRY METHOD 05/19/2024 8:54 AM EST [facility] Potassium 3.4(L) 3.5 - 5.5 mmol/L LAB CHEMISTRY METHOD 05/19/2024 8:54 AM EST [facility] Chloride 101 96 - 110 mmol/L LAB CHEMISTRY METHOD 05/19/2024 8:54 AM [facility] CO2 29 21 - 32 mmol/L LAB CHEMISTRY METHOD 05/19/2024 8:54 AM [facility] Anion Gap 4 3 - 11 LAB CHEMISTRY METHOD 05/19/2024 8:54 AM [facility] Glucose 87 70 - 100 mg/dL LAB CHEMISTRY METHOD 05/19/2024 8:54 AM [facility] BUN 15 5 - 25 mg/dL LAB CHEMISTRY METHOD 05/19/2024 8:54 AM [facility] Creatinine 0.60 0.50 - 1.10 mg/dL LAB CHEMISTRY METHOD 05/19/2024 8:54 AM [facility] eGFR 94 >=60 mL/min/1. 73m2 LAB CHEMISTRY METHOD 05/19/2024 8:54 AM [facility] Comment:Calculation based on the??Chronic Kidney Disease Epidemiology Collaboration (CKD-EPI) equation refit??without adjustment for race. BUN/Creatinine Ratio 25.0 LAB CHEMISTRY METHOD 05/19/2024 8:54 AM [facility] Calcium 9.1 8.5 - 10.5 mg/dL LAB CHEMISTRY METHOD 05/19/2024 8:54 AM [facility] Blood Venous blood specimen / Unknown Venipuncture / Unknown 05/19/2024 6:53 AM EST 05/19/2024 7:53 AM EST us Kenny Malave MD LAB BLOOD ORDERABLES Final Resul t [facility] [address] [place] [address], * (ABNORMAL) Complete blood count (05/19/2024 6:53 AM EST) WBC 5.0 4.8 - 10.8 K/mcL LAB HEMETOLOGY METHOD 05/19/2024 8:33 AM [facility] RBC 4.00 3.80 - 4.80 M/mcL LAB HEMETOLOGY METHOD 05/19/2024 8:33 AM [facility] Hemoglobin 11.0(L) 11.5 - 16.0 g/dL LAB HEMETOLOGY METHOD 05/19/2024 8:33 AM [facility] Hematocrit 33.7(L) 35.0 - 47.0 % LAB HEMETOLOGY METHOD 05/19/2024 8:33 AM [facility] MCV 85.3 79.0 - 98.0 FL LAB HEMETOLOGY METHOD 05/19/2024 8:33 AM [facility] MCH 27.8 27.0 - 32.0 pcg LAB HEMETOLOGY METHOD 05/19/2024 8:33 AM [facility] MCHC 32.6 32.0 - 37.0 g/dL LAB HEMETOLOGY METHOD 05/19/2024 8:33 AM [facility] RDW 15.0 11.0 - 15.0 % LAB HEMETOLOGY METHOD 05/19/2024 8:33 AM [facility] Platelets 527(H) 130 - 400 K/mcL LAB HEMETOLOGY METHOD 05/19/2024 8:33 AM [facility] MPV 8.5 7.0 - 11.0 FL LAB HEMETOLOGY METHOD 05/19/2024 8:33 AM [facility] NRBC 0.0 <1.0 % LAB HEMETOLOGY METHOD 05/19/2024 8:33 AM [facility] NRBC Absolute 0.00 <0.10 K/mcL LAB HEMETOLOGY METHOD 05/19/2024 8:33 AM [facility] Blood Venous blood specimen / Unknown Venipuncture / Unknown 05/19/2024 6:53 AM EST 05/19/2024 7:53 AM EST us Kenny Malave MD LAB BLOOD ORDERABLES Final Resul t [facility] ([facility] [address] [place] [address], [place] [phone] documented in this encounter Visit Diagnoses Diagnosis Essential (primary) hypertension Unspecified essential hypertension documented in this encounter Care Teams Accounts Collector Relationship Specialty Start Date End Date Alan Chanel MD [address] [place] [address] Dr [address] [place], [place] PCP - General Internal Medicine 03/12/24 documented as of this encounter
--- OUTSIDE RECORDS SUMMARY | 2024-07-01 11:18 | XMS_ITS | Encounter Summary ---
Author Organization [facility] Address [address] [place] [address] Care Team Providers Care Director Group Sales Name Role Phone Alan Chanel MD Primary Care Provider [phone]- [phone] Encounter Details Date Type Department Care Team (Late st Contact Info) Description 04/13/[address] [facility] - Main Lab 299 [facility] [employer] [address] Ever Reyna MD [address] [place] [id number] Encounter for other general examination Social History [...] Associated Diagnosis Comments BASIC METABOLIC PANEL Routine 04/13/2024 5:20 AM EST Encounter for other general examination documented in this encounter Results * (ABNORMAL) Basic metabolic panel (04/13/2024 5:20 AM EST) Sodium 128(L) 133 - 145 mmol/L LAB CHEMISTRY METHOD 04/13/2024 1:06 PM EST [facility] Potassium 4.0 3.5 - 5.5 mmol/L LAB CHEMISTRY METHOD 04/13/2024 1:06 PM EST [facility] Chloride 92(L) 96 - 110 mmol/L LAB CHEMISTRY METHOD 04/13/2024 1:06 PM EST [facility] CO2 26 21 - 32 mmol/L LAB CHEMISTRY METHOD 04/13/2024 1:[address] [facility] Anion Gap 10 3 - 11 LAB CHEMISTRY METHOD 04/13/2024 1:[address] [facility] Glucose 59(L) 70 - 100 mg/dL LAB CHEMISTRY METHOD 04/13/2024 1:[address] [facility] BUN 17 5 - 25 mg/dL LAB CHEMISTRY METHOD 04/13/2024 1:[address] [facility] Creatinine 0.82 0.70 - 1.30 mg/dL LAB CHEMISTRY METHOD 04/13/2024 1:[address] [facility] eGFR 92 >=60 mL/min/1. 73m2 LAB CHEMISTRY METHOD 04/13/2024 1:[address] [facility] Comment:Calculation based on the??Chronic Kidney Disease Epidemiology Collaboration (CKD-EPI) equation refit??without adjustment for race. BUN/Creatinine Ratio 20.7 LAB CHEMISTRY METHOD 04/13/2024 1:[address] [facility] Calcium 9.9 8.5 - 10.5 mg/dL LAB CHEMISTRY METHOD 04/13/2024 1:[address] [facility] Blood Venous blood specimen / Unknown Venipuncture / Unknown 04/13/2024 5:20 AM EST 04/13/2024 11:02 AM EST us Ever Reyna MD LAB BLOOD ORDERABLES Final Res ult [facility] [address] [place] [address], documented in this encounter Visit Diagnoses Diagnosis Encounter for other general examination documented in this encounter Care Teams Director Group Sales Relationship Specialty Start Date End Date Alan Chanel MD [address] [place] [address] Reyna [address] [place] PCP - General Internal Medicine 03/12/24 documented as of this encounter
--- OUTSIDE RECORDS SUMMARY | 2024-07-01 11:18 | XMS_ITS | Encounter Summary ---
Author Organization [facility] Address [address] [place] [address] Care Team Providers Care Sales Floor Team Member Name Role Phone Alan Chanel MD Primary Care Provider [phone]- [phone] Encounter Details Date Type Department Care Team (Late st Contact Info) Description 06/08/2024 Lab Requisition [facility] - Main Lab [address] [place] [address] Kenny Malave MD 38 [facility] [address] [place], [address] Chronic obstructive pulmonary disease, unspecified (CMS/HCC) Social [...] Associated Diagnosis Comments COMPLETE BLOOD COUNT Routine 06/08/2024 7:16 AM EST Chronic obstructive pulmonary disease, unspecified (CMS/HCC) BASIC METABOLIC PANEL Routine 06/08/2024 7:16 AM EST Chronic obstructive pulmonary disease, unspecified (CMS/HCC) documented in this encounter Results * Basic metabolic panel (06/08/2024 7:16 AM EST) Sodium 136 133 - 145 mmol/L LAB CHEMISTRY METHOD 06/08/2024 11:51 AM EST [facility] Potassium 5.0 3.5 - 5.5 mmol/L LAB CHEMISTRY METHOD 06/08/2024 11:51 AM [facility] Comment:Results verified by repeat testing Chloride 102 96 - 110 mmol/L LAB CHEMISTRY METHOD 06/08/2024 11:51 AM [facility] CO2 26 21 - 32 mmol/L LAB CHEMISTRY METHOD 06/08/2024 11:51 AM [facility] Anion Gap 8 3 - 11 LAB CHEMISTRY METHOD 06/08/2024 11:51 AM [facility] Glucose 78 70 - 100 mg/dL LAB CHEMISTRY METHOD 06/08/2024 11:51 AM [facility] BUN 17 5 - 25 mg/dL LAB CHEMISTRY METHOD 06/08/2024 11:51 AM [facility] Creatinine 0.53 0.50 - 1.10 mg/dL LAB CHEMISTRY METHOD 06/08/2024 11:51 AM [facility] eGFR 97 >=60 mL/min/1. 73m2 LAB CHEMISTRY METHOD 06/08/2024 11:51 AM [facility] Comment:Calculation based on the??Chronic Kidney Disease Epidemiology Collaboration (CKD-EPI) equation refit??without adjustment for race. BUN/Creatinine Ratio 32.1 LAB CHEMISTRY METHOD 06/08/2024 11:51 AM [facility] Calcium 9.6 8.5 - 10.5 mg/dL LAB CHEMISTRY METHOD 06/08/2024 11:51 AM [facility] Blood Venous blood specimen / Unknown Venipuncture / Unknown 06/08/2024 7:16 AM EST 06/08/2024 9:26 AM EST us Kenny Malave MD LAB BLOOD ORDERABLES Final Resul t [facility] [address] [place] [address], [place] [phone] * (ABNORMAL) Complete blood count (06/08/2024 7:16 AM EST) WBC 5.0 4.8 - 10.8 K/mcL LAB HEMETOLOGY METHOD 06/08/2024 10:15 AM [facility] RBC 3.80 3.80 - 4.80 M/mcL LAB HEMETOLOGY METHOD 06/08/2024 10:15 AM [facility] Hemoglobin 10.6(L) 11.5 - 16.0 g/dL LAB HEMETOLOGY METHOD 06/08/2024 10:15 AM [facility] Hematocrit 33.0(L) 35.0 - 47.0 % LAB HEMETOLOGY METHOD 06/08/2024 10:15 AM [facility] MCV 86.4 79.0 - 98.0 FL LAB HEMETOLOGY METHOD 06/08/2024 10:15 AM [facility] MCH 27.7 27.0 - 32.0 pcg LAB HEMETOLOGY METHOD 06/08/2024 10:15 AM [facility] MCHC 32.1 32.0 - 37.0 g/dL LAB HEMETOLOGY METHOD 06/08/2024 10:15 AM [facility] RDW 17.9(H) 11.0 - 15.0 % LAB HEMETOLOGY METHOD 06/08/2024 10:15 AM [facility] Platelets 516(H) 130 - 400 K/mcL LAB HEMETOLOGY METHOD 06/08/2024 10:15 AM [facility] MPV 8.5 7.0 - 11.0 FL LAB HEMETOLOGY METHOD 06/08/2024 10:15 AM [facility] NRBC 0.0 <1.0 % LAB HEMETOLOGY METHOD 06/08/2024 10:15 AM [facility] NRBC Absolute 0.00 <0.10 K/mcL LAB HEMETOLOGY METHOD 06/08/2024 10:15 AM [facility] Blood Venous blood specimen / Unknown Venipuncture / Unknown 06/08/2024 7:16 AM EST 06/08/2024 9:26 AM EST us Kenny Malave MD LAB BLOOD ORDERABLES Final Resul t [facility] [address] [place] [address], documented in this encounter Visit Diagnoses Diagnosis Chronic obstructive pulmonary disease, unspecified (CMS/HCC) documented in this encounter Care Teams Sales Floor Team Member Relationship Specialty Start Date End Date Alan Chanel MD [address] [place] [address] Dr [address] [place] PCP - General Internal Medicine 03/12/24 documented as of this encounter
--- OUTSIDE RECORDS SUMMARY | 2024-07-01 11:19 | XMS_ITS | Encounter Summary ---
Author Organization [facility] Address [address] [place] [address] Care Team Providers Care Negative Turner Name Role Phone Alan Chanel MD Primary Care Provider Encounter Details Date Type Department Care Team (Late st Contact Info) Description 05/04/2024 Lab Requisition [facility] - Main Lab [address] [place] [address] Kenny Malave MD 38 [facility] 204 [place], [address] Essential (primary) hypertension Social History Tobacco [...] Associated Diagnosis Comments COMPLETE BLOOD COUNT Routine 05/05/2024 6:32 AM EST Essential (primary) hypertension BASIC METABOLIC PANEL Routine 05/05/2024 6:32 AM EST Essential (primary) hypertension documented in this encounter Results * (ABNORMAL) Basic metabolic panel (05/05/2024 6:32 AM EST) Sodium 131(L) 133 - 145 mmol/L LAB CHEMISTRY METHOD 05/05/2024 10:55 AM EST [facility] Potassium 3.8 3.5 - 5.5 mmol/L LAB CHEMISTRY METHOD 05/05/2024 10:55 AM EST [facility] Chloride 95(L) 96 - 110 mmol/L LAB CHEMISTRY METHOD 05/05/2024 10:55 AM [facility] CO2 29 21 - 32 mmol/L LAB CHEMISTRY METHOD 05/05/2024 10:55 AM [facility] Anion Gap 7 3 - 11 LAB CHEMISTRY METHOD 05/05/2024 10:55 AM [facility] Glucose 89 70 - 100 mg/dL LAB CHEMISTRY METHOD 05/05/2024 10:55 AM [facility] BUN 16 5 - 25 mg/dL LAB CHEMISTRY METHOD 05/05/2024 10:55 AM [facility] Creatinine 0.61 0.50 - 1.10 mg/dL LAB CHEMISTRY METHOD 05/05/2024 10:55 AM [facility] eGFR 94 >=60 mL/min/1. 73m2 LAB CHEMISTRY METHOD 05/05/2024 10:55 AM [facility] Comment:Calculation based on the??Chronic Kidney Disease Epidemiology Collaboration (CKD-EPI) equation refit??without adjustment for race. BUN/Creatinine Ratio 26.2 LAB CHEMISTRY METHOD 05/05/2024 10:55 AM [facility] Calcium 8.9 8.5 - 10.5 mg/dL LAB CHEMISTRY METHOD 05/05/2024 10:55 AM [facility] Blood Venous blood specimen / Unknown Venipuncture / Unknown 05/05/2024 6:32 AM EST 05/05/2024 10:13 AM EST us Kenny Malave MD LAB BLOOD ORDERABLES Final Resul t [facility] [address] [place] [address], * (ABNORMAL) Complete blood count (05/05/2024 6:32 AM EST) WBC 6.4 4.8 - 10.8 K/mcL LAB HEMETOLOGY METHOD 05/05/2024 10:59 AM [facility] RBC 3.90 3.80 - 4.80 M/[facility] LAB HEMETOLOGY METHOD 05/05/2024 10:59 AM [facility] Hemoglobin 10.7(L) 11.5 - 16.0 g/dL LAB HEMETOLOGY METHOD 05/05/2024 10:59 AM [facility] Hematocrit 32.7(L) 35.0 - 47.0 % LAB HEMETOLOGY METHOD 05/05/2024 10:59 AM [facility] MCV 84.3 79.0 - 98.0 FL LAB HEMETOLOGY METHOD 05/05/2024 10:59 AM [facility] MCH 27.6 27.0 - 32.0 pcg LAB HEMETOLOGY METHOD 05/05/2024 10:59 AM [facility] MCHC 32.7 32.0 - 37.0 g/dL LAB HEMETOLOGY METHOD 05/05/2024 10:59 AM [facility] RDW 13.2 11.0 - 15.0 % LAB HEMETOLOGY METHOD 05/05/2024 10:59 AM [facility] Platelets 551(H) 130 - 400 K/[facility] LAB HEMETOLOGY METHOD 05/05/2024 10:59 AM [facility] MPV 8.5 7.0 - 11.0 FL LAB HEMETOLOGY METHOD 05/05/2024 10:59 AM [facility] NRBC 0.0 <1.0 % LAB HEMETOLOGY METHOD 05/05/2024 10:59 AM [facility] NRBC Absolute 0.00 <0.10 K/mcL LAB HEMETOLOGY METHOD 05/05/2024 10:59 AM [facility] Blood Venous blood specimen / Unknown Venipuncture / Unknown 05/05/2024 6:32 AM EST 05/05/2024 10:14 AM EST us Kenny Malave MD LAB BLOOD ORDERABLES [facility] [address] [place] [address], documented in this encounter Visit Diagnoses Diagnosis Essential (primary) hypertension Unspecified essential hypertension documented in this encounter Care Teams Negative Turner Relationship Specialty Start Date End Date Alan Chanel MD [address] [place] [address] Dr [address] [place], [place] PCP - General Internal Medicine 03/12/24 documented as of this encounter
--- OUTSIDE RECORDS SUMMARY | 2024-07-01 11:19 | XMS_ITS | Encounter Summary ---
Author Organization [facility] Address [address] [place] [address] Care Team Providers Care Phone Circuit Operator Name Role Phone Alan Chanel MD Primary Care Provider [phone] Encounter Details Date Type Department Care Team (Late st Contact Info) Description 04/28/2024 Lab Requisition [facility] - Main Lab [address] [place] [address] Kenny Malave MD 38 [facility] 204 [place], [address] Essential (primary) hypertension Social History Tobacco [...] Associated Diagnosis Comments COMPLETE BLOOD COUNT Routine 04/28/2024 6:19 AM EST Essential (primary) hypertension COMPREHENSIVE METABOLIC PANEL Routine 04/28/2024 6:19 AM EST Essential (primary) hypertension documented in this encounter Results * (ABNORMAL) Comprehensive metabolic panel (04/28/2024 6:19 AM EST) Sodium 127(L) 133 - 145 mmol/L LAB CHEMISTRY METHOD 04/28/2024 12:11 PM EST [facility] Potassium 3.7 3.5 - 5.5 mmol/L LAB CHEMISTRY METHOD 04/28/2024 12:11 PM EST [facility] Chloride 91(L) 96 - 110 mmol/L LAB CHEMISTRY METHOD 04/28/2024 12:11 PM [facility] CO2 25 21 - 32 mmol/L LAB CHEMISTRY METHOD 04/28/2024 12:11 PM [facility] Anion Gap 11 3 - 11 LAB CHEMISTRY METHOD 04/28/2024 12:11 PM [facility] Glucose 81 70 - 100 mg/dL LAB CHEMISTRY METHOD 04/28/2024 12:11 PM [facility] BUN 16 5 - 25 mg/dL LAB CHEMISTRY METHOD 04/28/2024 12:11 PM [facility] Creatinine 0.56(L) 0.70 - 1.30 mg/dL LAB CHEMISTRY METHOD 04/28/2024 12:11 PM [facility] eGFR 103 >=60 mL/min/1. 73m2 LAB CHEMISTRY METHOD 04/28/2024 12:11 PM [facility] Comment:Calculation based on the??Chronic Kidney Disease Epidemiology Collaboration (CKD-EPI) equation refit??without adjustment for race. BUN/Creatinine Ratio 28.6 LAB CHEMISTRY METHOD 04/28/2024 12:11 PM [facility] Calcium 9.0 8.5 - 10.5 mg/dL LAB CHEMISTRY METHOD 04/28/2024 12:11 PM [facility] AST (SGOT) 31 10 - 42 unit/L LAB CHEMISTRY METHOD 04/28/2024 12:11 PM [facility] ALT (SGPT) 48 10 - 60 unit/L LAB CHEMISTRY METHOD 04/28/2024 12:11 PM [facility] Alkaline Phosphatase 136(H) 42 - 121 unit/L LAB CHEMISTRY METHOD 04/28/2024 12:11 PM [facility] Total Protein 6.4 6.0 - 8.0 g/dL LAB CHEMISTRY METHOD 04/28/2024 12:11 PM [facility] Albumin 2.9(L) 3.2 - 5.0 g/dL LAB CHEMISTRY METHOD 04/28/2024 12:11 PM EST [facility] Total Bilirubin 0.5 0.0 - 1.4 mg/dL LAB CHEMISTRY METHOD 04/28/2024 12:11 PM [facility] Blood Venous blood specimen / Unknown Venipuncture / Unknown 04/28/2024 6:19 AM EST 04/28/2024 10:16 AM EST us Kenny Malave MD LAB BLOOD ORDERABLES Final Resul t [facility] [address] [place] [address], [place] [phone] * (ABNORMAL) Complete blood count (04/28/2024 6:19 AM EST) WBC 6.8 4.8 - 10.8 K/mcL LAB HEMETOLOGY METHOD 04/28/2024 11:29 AM [facility] RBC 4.10(L) 4.50 - 5.50 M/mcL LAB HEMETOLOGY METHOD 04/28/2024 11:29 AM [facility] Hemoglobin 11.4(L) 13.5 - 17.5 g/dL LAB HEMETOLOGY METHOD 04/28/2024 11:29 AM [facility] Hematocrit 33.6(L) 42.0 - 54.0 % LAB HEMETOLOGY METHOD 04/28/2024 11:29 AM [facility] MCV 81.8 79.0 - 98.0 FL LAB HEMETOLOGY METHOD 04/28/2024 11:29 AM [facility] MCH 27.7 27.0 - 32.0 pcg LAB HEMETOLOGY METHOD 04/28/2024 11:29 AM [facility] MCHC 33.9 32.0 - 37.0 g/dL LAB HEMETOLOGY METHOD 04/28/2024 11:29 AM EST [facility] RDW 13.2 11.0 - 15.0 % LAB HEMETOLOGY METHOD 04/28/2024 11:29 AM EST [facility] Platelets 491(H) 130 - 400 K/mcL LAB HEMETOLOGY METHOD 04/28/2024 11:29 AM EST [facility] MPV 8.2 7.0 - 11.0 FL LAB HEMETOLOGY METHOD 04/28/2024 11:29 AM EST [facility] NRBC 0.0 <1.0 % LAB HEMETOLOGY METHOD 04/28/2024 11:29 AM EST [facility] NRBC Absolute 0.00 <0.10 K/mcL LAB HEMETOLOGY METHOD 04/28/2024 11:29 AM [facility] Blood Venous blood specimen / Unknown Venipuncture / Unknown 04/28/2024 6:19 AM EST 04/28/2024 10:16 AM EST us Kenny Malave MD LAB BLOOD ORDERABLES Final Resul t [facility] [address] [place] [address], documented in this encounter Visit Diagnoses Diagnosis Essential (primary) hypertension Unspecified essential hypertension documented in this encounter Care Teams Phone Circuit Operator Relationship Specialty Start Date End Date Alan Chanel MD [address] [place] [address] Dr Reyna [place] PCP - General Internal Medicine 03/12/24 documented as of this encounter
--- OUTSIDE RECORDS SUMMARY | 2024-07-01 11:19 | XMS_ITS | Encounter Summary ---
Author Organization [facility] Address [address] [place] [address] Care Team Providers Care Head Boys Tennis Coach Name Role Phone Alan Chanel MD Primary Care Provider [phone] Encounter Details Date Type Department Care Team (Late st Contact Info) Description 04/14/2024 Lab Requisition [facility] - Main Lab [address] [facility] [place] [address] Ever Reyna MD [address] [place] [phone] Encounter for other general examination Social History [...] Procedure Name Priority Date/Time Associated Diagnosis Comments SODIUM, URINE, RANDOM Routine 04/14/2024 3:12 AM EST Encounter for other general examination OSMOLALITY, URINE Routine 04/14/2024 3:1 2 AM EST Encounter for other general examination documented in this encounter Results * Sodium, urine, random (04/14/2024 3:12 AM EST) Sodium, Ur 35 mmol/L LAB CHEMISTRY METHOD 04/14/2024 10:46 AM EST [facility] Urine Urine specimen obtained by clean catch procedure / Unknown Non-blood Collection / Unknown 04/14/2024 3:12 AM EST 04/14/2024 9:00 AM EST us Ever Reyna MD LAB URINE ORDERABLES Final Res ult Performing Organization Address City/[facility]/ZIP Co de Phone Number [facility] [address] [place] [address], [place] [phone] * (ABNORMAL) Osmolality, urine (04/14/2024 3:12 AM EST) Osmolality, Urine 258(L) 300 - 1,300 mOsm/kg LAB CHEMISTRY METHOD 04/14/2024 11:28 AM EST [facility] Urine Urine specimen obtained by clean catch procedure / Unknown Non-blood Collection / Unknown 04/14/2024 3:12 AM EST 04/14/2024 9:00 AM EST us Ever Reyna MD LAB URINE ORDERABLES Final Res ult Performing Organization Address [facility] Co de Phone Number [facility] [address] [place] [address], [place] [phone] documented in this encounter Visit Diagnoses Diagnosis Encounter for other general examination documented in this encounter Care Teams Head Boys Tennis Coach Relationship Specialty Start Date End Date Alan Chanel MD [address] [place] [address] Dr Orellana [address] [place] [address] [place] PCP - General Internal Medicine 03/12/24 documented as of this encounter
--- OUTSIDE RECORDS SUMMARY | 2024-07-01 11:19 | XMS_ITS | Encounter Summary ---
Author Organization [facility] Address [address] [place] [address] Care Team Providers Care Tab Cutting Machine Operator Name Role Phone Alan Chanel MD Primary Care Provider Encounter Details Date Type Department Care Team (Late st Contact Info) Description 04/15/2024 Lab Requisition [facility] - Main Lab [address] [facility] [address] Ever Reyna MD [address] [place] [phone] Encounter for other general examination Social History [...] Associated Diagnosis Comments BASIC METABOLIC PANEL Routine 04/15/2024 6:06 AM EST Encounter for other general examination documented in this encounter Results * (ABNORMAL) Basic metabolic panel (04/15/2024 6:06 AM EST) Sodium 130(L) 133 - 145 mmol/L LAB CHEMISTRY METHOD 04/15/2024 11:04 AM EST [facility] Potassium 4.4 3.5 - 5.5 mmol/L LAB CHEMISTRY METHOD 04/15/2024 11:04 AM EST [facility] Chloride 96 96 - 110 mmol/L LAB CHEMISTRY METHOD 04/15/2024 11:04 AM EST [facility] CO2 25 21 - 32 mmol/L LAB CHEMISTRY METHOD 04/15/2024 11:04 AM [facility] LAB Anion Gap 9 3 - 11 LAB CHEMISTRY METHOD 04/15/2024 11:04 AM [facility] LAB Glucose 78 70 - 100 mg/dL LAB CHEMISTRY METHOD 04/15/2024 11:04 AM [facility] BUN 11 5 - 25 mg/dL LAB CHEMISTRY METHOD 04/15/2024 11:04 AM [facility] LAB Creatinine 0.84 0.70 - 1.30 mg/dL LAB CHEMISTRY METHOD 04/15/2024 11:04 AM [facility] LAB eGFR 92 >=60 mL/min/1. 73m2 LAB CHEMISTRY METHOD 04/15/2024 11:04 AM [facility] LAB Comment:Calculation based on the??Chronic Kidney Disease Epidemiology Collaboration (CKD-EPI) equation refit??without adjustment for race. BUN/Creatinine Ratio 13.1 LAB CHEMISTRY METHOD 04/15/2024 11:04 AM [facility] Calcium 9.3 8.5 - 10.5 mg/dL LAB CHEMISTRY METHOD 04/15/2024 11:04 AM [facility] Blood Venous blood specimen / Unknown Venipuncture / Unknown 04/15/2024 6:06 AM EST 04/15/2024 9:57 AM EST us Ever Reyna MD LAB BLOOD ORDERABLES Final Res ult [facility] [address] [place] [address], documented in this encounter Visit Diagnoses Diagnosis Encounter for other general examination documented in this encounter Care Teams Tab Cutting Machine Operator Relationship Specialty Start Date End Date Alan Chanel MD [address] [place] [address] [address] [place] PCP - General Internal Medicine 03/12/24 documented as of this encounter
--- OUTSIDE RECORDS SUMMARY | 2024-07-01 11:19 | XMS_ITS | Encounter Summary ---
Author Organization [facility] Address [address] [place] [address] Care Team Providers Care Bedspring Assembler Name Role Phone Alan Chanel MD Primary Care Provider Encounter Details Date Type Department Care Team (Late st Contact Info) Description 04/17/2024 Lab Requisition [facility] - Main Lab [address] [place] [address] Ever Reyna MD [address] [place] [phone] Encounter for other general examination Social History [...] Associated Diagnosis Comments COMPLETE BLOOD COUNT Routine 04/17/2024 6:06 AM EST Encounter for other general examination COMPREHENSIVE METABOLIC PANEL Routine 04/17/2024 6:06 AM EST Encounter for other general examination documented in this encounter Results * (ABNORMAL) Complete blood count (04/17/2024 6:06 AM EST) WBC 4.4(L) 4.8 - 10.8 K/[facility] LAB HEMETOLOGY METHOD 04/17/2024 11:[address] [facility] RBC 4.20(L) 4.50 - 5.50 M/[facility] LAB HEMETOLOGY METHOD 04/17/2024 11:[address] [facility] Hemoglobin 11.8(L) 13.5 - 17.5 g/dL LAB HEMETOLOGY METHOD 04/17/2024 11:22 AM [facility] Hematocrit 35.2(L) 42.0 - 54.0 % LAB HEMETOLOGY METHOD 04/17/2024 11:22 AM [facility] MCV 84.2 79.0 - 98.0 FL LAB HEMETOLOGY METHOD 04/17/2024 11:22 AM [facility] MCH 28.2 27.0 - 32.0 pcg LAB HEMETOLOGY METHOD 04/17/2024 11:22 AM [facility] MCHC 33.5 32.0 - 37.0 g/dL LAB HEMETOLOGY METHOD 04/17/2024 11:22 AM [facility] RDW 13.4 11.0 - 15.0 % LAB HEMETOLOGY METHOD 04/17/2024 11:22 AM [facility] Platelets 467(H) 130 - 400 K/mcL LAB HEMETOLOGY METHOD 04/17/2024 11:22 AM [facility] MPV 8.5 7.0 - 11.0 FL LAB HEMETOLOGY METHOD 04/17/2024 11:22 AM [facility] NRBC 0.0 <1.0 % LAB HEMETOLOGY METHOD 04/17/2024 11:22 AM [facility] LAB NRBC Absolute 0.00 <0.10 K/mcL LAB HEMETOLOGY METHOD 04/17/2024 11:22 AM [facility] Blood Venous blood specimen / Unknown Venipuncture / Unknown 04/17/2024 6:06 AM EST 04/17/2024 10:27 AM EST us Ever Reyna MD LAB BLOOD ORDERABLES Final Res ult [facility] [address] [place] [address], [place] [phone] * (ABNORMAL) Comprehensive metabolic panel (04/17/2024 6:06 AM EST) Sodium 132(L) 133 - 145 mmol/L LAB CHEMISTRY METHOD 04/17/2024 12:19 PM [facility] Potassium 4.5 3.5 - 5.5 mmol/L LAB CHEMISTRY METHOD 04/17/2024 12:19 PM [facility] Chloride 96 96 - 110 mmol/L LAB CHEMISTRY METHOD 04/17/2024 12:19 PM [facility] CO2 27 21 - 32 mmol/L LAB CHEMISTRY METHOD 04/17/2024 12:19 PM [facility] Anion Gap 9 3 - 11 LAB CHEMISTRY METHOD 04/17/2024 12:19 PM [facility] Glucose 88 70 - 100 mg/dL LAB CHEMISTRY METHOD 04/17/2024 12:19 PM [facility] BUN 8 5 - 25 mg/dL LAB CHEMISTRY METHOD 04/17/2024 12:19 PM [facility] Creatinine 0.65(L) 0.70 - 1.30 mg/dL LAB CHEMISTRY METHOD 04/17/2024 12:19 PM [facility] eGFR 99 >=60 mL/min/1. 73m2 LAB CHEMISTRY METHOD 04/17/2024 12:19 PM [facility] LAB Comment:Calculation based on the??Chronic Kidney Disease Epidemiology Collaboration (CKD-EPI) equation refit??without adjustment for race. BUN/Creatinine Ratio 12.3 LAB CHEMISTRY METHOD 04/17/2024 12:19 PM [facility] Calcium 9.1 8.5 - 10.5 mg/dL LAB CHEMISTRY METHOD 04/17/2024 12:19 PM [facility] AST (SGOT) 107(H) 10 - 42 unit/L LAB CHEMISTRY METHOD 04/17/2024 12:19 PM [facility] ALT (SGPT) 71(H) 10 - 60 unit/L LAB CHEMISTRY METHOD 04/17/2024 12:19 PM [facility] Alkaline Phosphatase 175(H) 42 - 121 unit/L LAB CHEMISTRY METHOD 04/17/2024 12:19 PM [facility] Total Protein 6.6 6.0 - 8.0 g/dL LAB CHEMISTRY METHOD 04/17/2024 12:19 PM [facility] Albumin 3.2 3.2 - 5.0 g/dL LAB CHEMISTRY METHOD 04/17/2024 12:19 PM [facility] Total Bilirubin 0.3 0.0 - 1.4 mg/dL LAB CHEMISTRY METHOD 04/17/2024 12:19 PM [facility] Blood Venous blood specimen / Unknown Venipuncture / Unknown 04/17/2024 6:06 AM EST 04/17/2024 10:27 AM EST us Ever Reyna MD LAB BLOOD ORDERABLES Final Res ult [facility] [address] [place] [address], documented in this encounter Visit Diagnoses Diagnosis Encounter for other general examination documented in this encounter Care Teams Bedspring Assembler Relationship Specialty Start Date End Date Alan Chanel MD [address] [place] [address] Dr Reyna Kruger [place] PCP - General Internal Medicine 03/12/24 documented as of this encounter
--- OUTSIDE RECORDS SUMMARY | 2024-07-01 11:19 | XMS_ITS | Encounter Summary ---
Author Organization [facility] Address [address] [place] [address] Care Team Providers Care Winding Lathe Operator Name Role Phone Alan Chanel MD Primary Care Provider Encounter Details Date Type Department Care Team (Late st Contact Info) Description 04/22/2024 Lab Requisition [facility] - Main Lab 299 [facility] [place] [address] Ever Reyna MD [address] [place] [phone] Encounter for other general examination Social History [...] Associated Diagnosis Comments SODIUM, URINE, RANDOM Routine 04/22/2024 4:20 AM EST Encounter for other general examination OSMOLALITY, URINE Routine 04/22/2024 4:2 0 AM EST Encounter for other general examination documented in this encounter Results * Osmolality, urine (04/22/2024 4:20 AM EST) Osmolality, Urine 516 300 - 1,300 mOsm/kg LAB CHEMISTRY METHOD 04/22/2024 11:[address] [facility] Urine Urine specimen obtained by clean catch procedure / Unknown 04/22/2024 4:20 AM EST 04/22/2024 9:49 AM EST us Ever Reyna MD LAB URINE ORDERABLES Final Res ult Performing Organization Address City/[facility]/ZIP Co de Phone Number [facility] [address] [place] [address], [place] [phone] * Sodium, urine, random (04/22/2024 4:20 AM EST) Sodium, Ur 54 mmol/L LAB CHEMISTRY METHOD 04/22/2024 11:29 AM EST [facility] Urine Urine specimen obtained by clean catch procedure / Unknown 04/22/2024 4:20 AM EST 04/22/2024 9:49 AM EST Ever Reyna MD LAB URINE ORDERABLES Final Res ult Performing Organization Address [facility] Co de Phone Number [facility] [address] [place] [address], [place] [phone] documented in this encounter Visit Diagnoses Diagnosis Encounter for other general examination documented in this encounter Care Teams Winding Lathe Operator Relationship Specialty Start Date End Date Alan Chanel MD [address] [place] [address] Dr Reyna Kruger [place] PCP - General Internal Medicine 03/12/24 documented as of this encounter
--- OUTSIDE RECORDS SUMMARY | 2024-07-01 11:19 | XMS_ITS | Clinical Summary ---
Author Organization 175 [facility] Address [address] [place] [address] Phone Care Team Providers Care Marketing Analytics Analyst Name Role Phone Alan Chanel MD Primary Care Provider Allergies No known active allergies Medications albuterol HFA (PROAIR HFA ; PROVENTIL HFA ; VENTOLIN HFA) 90 mcg/actuation inhaler Inhale 2 puffs by mouth every 6 (six) hours if needed for wheezing. Active aspirin 81 mg EC tablet Take 1 tablet (81 mg total) by mouth 1 (one) time each day. Active calcium carbonate 1,500 mg (600 mg elemental calcium) tablet Take 1 tablet (1,500 mg total) by mouth. Active gabapentin (NEURONTIN) 100 mg capsule Take 1 capsule (100 mg total) by mouth 3 (three) times a day. Active lisinopriL (PRINIVIL,ZESTR IL) 5 mg tablet Take 1 tablet (5 mg total) by mouth 1 (one) time each day. Active LORazepam (ATIVAN) 0.5 mg tablet Take 1 tablet (0.5 mg total) by mouth every 6 (six) hours if needed for anxiety. Max Daily Amount: 2 mg Active naproxen (EC NAPROSYN) 500 mg EC tablet Take 1 tablet (500 mg total) by mouth 1 (one) time each day with breakfast. Do not crush, chew, or split. Active nicotine (NICODERM CQ) 7 mg/[address] 1 patch on the skin 1 (one) time each day at the same time. 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 Lab [address] [place] [phone] Kenny Malave MD Chronic obstructive pulmonary disease, unspecified ([facility]/HCC) 06/04/2024 Lab Requisition [facility] Lab [address] [place] [phone] Kenny Malave MD Other prison (current) drug therapy 05/28/[address] [facility] [address] [place] [address] Kenny Malave MD Polyneuropathy, unspecified; Unspecified protein-calorie malnutrition ([facility]/HCC); Chronic obstructive pulmonary disease, unspecified ([facility]/HCC) 05/18/[address] [facility] [address] [place] [address] Kenny Malave MD Essential (primary) hypertension 05/11/[address] [facility] [address] [place] [address] Kenny Malave MD Essential (primary) hypertension 05/04/[address] [facility] [address] [place] [address] Kenny Malave MD Essential (primary) hypertension 04/28/[address] [facility] [address] [place] [phone] Kenny Malave MD Essential (primary) hypertension 04/22/2024 Lab Requisition [facility] Lab [address] [place] [address] Ever Reyna MD Encounter for other general examination 04/22/2024 Lab Requisition [facility] [address] [place] [address] Ever Reyna MD Encounter for other general examination 04/21/2024 Lab Requisition [facility] [address] [place] [address] Ever Reyna MD Encounter for other general examination 04/20/2024 Lab Requisition [facility] [address] [place] [address] Ever Reyna MD Encounter for other general examination 04/17/2024 Lab Requisition [facility] [address] [place] [address] Ever Reyna MD Encounter for other general examination 04/15/2024 Lab Requisition [facility] [address] [place] [address] Ever Reyna MD Encounter for other general examination 04/14/2024 Lab Requisition [facility] [address] [place] [address] Ever Reyna MD Encounter for other general examination 04/14/2024 Lab Requisition [facility] [address] [place] [address] Ever Reyna MD Encounter for other general examination 04/13/2024 Lab Requisition [facility] [address] [place] [address] Ever Reyna MD Encounter for other general examination 04/12/2024 Lab Requisition [facility] [address] [place] [address] Ever Reyna MD Encounter for other general examination from Last 3 Months Social History Tobacco Use Types Packs/Day Years Used Date Smoking Tobacco: Never Assessed Comments Unknown Sex and Gender Information Value Date Recorded Sex Assigned at Not on file Legal Sex Female 12:48 PM EST Gender Identity Not on file Sexual Orientation Not on file Plan of Treatment Health Maintenance Due Date Last Done Comments Breast Cancer Screening 1950 DTaP,Tdap,and Td Vaccines (1 - Tdap) 1968 Pneumococcal Vaccine: 50+ Years (1 of 2 - PCV) 1968 Zoster Vaccines (1 of 2) 08/15/1999 RSV Immunization Patients 60+ Years Old (1 - Risk 60-74 years 1-dose series) 2009 COVID-19 Vaccine (1 - 2023- season) 2024 Influenza Vaccine (#1) 2024 Cholesterol Screening (Lipid Panel) 02/28/2024 Colorectal Cancer Screening: Colonoscopy 02/28/2024 Depression Screening 02/28/2024 Falls Risk Assessment 02/28/2024 Hepatitis C Screening 02/28/2024 Medicare Annual Wellness Visit 02/28/2024 Osteoporosis Screening (Bone Density Screening) 02/28/2024 Social Influencers of Health Screening 02/28/2024 Hypertension/CHF/CAD Annual BMP Blood Test 06/08/2025 06/08/2024, 06/04/2024, 05/28/2024, Additional history exists HIB Vaccines Aged Out No longer eligi ble based on patient's age to complete this topic HPV Vaccines Aged Out No longer eligi ble based on patient's age to complete this topic Hepatitis A Vaccines Aged Out No long er eligible based on patient's age to complete this topic Hepatitis B Vaccines Aged Out No long er eligible based on patient's age to complete this topic IPV Vaccines Aged Out No longer eligi ble based on patient's age to complete this topic MMR Vaccines Aged Out No longer eligi ble based on patient's age to complete this topic Meningococcal ACWY Vaccine Aged Out N o longer eligible based on patient's age to complete this topic Meningococcal B Vacine Aged Out No lo nger eligible based on patient's age to complete this topic RSV Immunization Patients Under 20 months Aged Out No longer eligible based on patient's age to complete this topic Varicella Vaccines Aged Out No longer eligible based on patient's age to complete this topic Procedures Procedure Name Priority Date/Time Associated Diagnosis Comments BASIC METABOLIC PANEL Routine 06/08/2024 7:16 AM EST Chronic obstructive pulmonary disease, unspecified (CMS/HCC) COMPLETE BLOOD COUNT Routine 06/08/2024 7:16 AM EST Chronic obstructive pulmonary disease, unspecified (CMS/HCC) BASIC METABOLIC PANEL Routine 06/04/2024 5:36 AM EST Other prison (current) drug therapy BASIC METABOLIC PANEL Routine 05/28/2024 6:03 AM EST Polyneuropathy, unspecified Unspecified protein-calorie malnutrition (CMS/HCC) Chronic obstructive pulmonary disease, unspecified (CMS/HCC) BASIC METABOLIC PANEL Routine 05/19/2024 6:53 AM EST Essential (primary) hypertension COMPLETE BLOOD COUNT Routine 05/19/2024 6:53 AM EST Essential (primary) hypertension BASIC METABOLIC PANEL Routine 05/12/2024 5:47 AM EST Essential (primary) hypertension COMPLETE BLOOD COUNT Routine 05/12/2024 5:47 AM EST Essential (primary) hypertension BASIC METABOLIC PANEL Routine 05/05/2024 6:32 AM EST Essential (primary) hypertension COMPLETE BLOOD COUNT Routine 05/05/2024 6:32 AM EST Essential (primary) hypertension COMPREHENSIVE METABOLIC PANEL Routine 04/28/2024 6:19 AM EST Essential (primary) hypertension COMPLETE BLOOD COUNT Routine 04/28/2024 6:19 AM EST Essential (primary) hypertension BASIC METABOLIC PANEL Routine 04/22/2024 5:40 AM EST Encounter for other general examination OSMOLALITY, URINE Routine 04/22/2024 4:2 0 AM EST Encounter for other general examination SODIUM, URINE, RANDOM Routine 04/22/2024 4:20 AM EST Encounter for other general examination LIPASE Routine 04/21/2024 6:13 AM EST Encounter for other general examination AMYLASE Routine 04/21/2024 6:13 AM EST Encounter for other general examination COMPREHENSIVE METABOLIC PANEL Routine 04/21/2024 6:13 AM EST Encounter for other general examination COMPLETE BLOOD COUNT Routine 04/20/2024 5:20 AM EST Encounter for other general examination COMPREHENSIVE METABOLIC PANEL Routine 04/20/2024 5:20 AM EST Encounter for other general examination COMPLETE BLOOD COUNT Routine 04/17/2024 6:06 AM EST Encounter for other general examination COMPREHENSIVE METABOLIC PANEL Routine 04/17/2024 6:06 AM EST Encounter for other general examination BASIC METABOLIC PANEL Routine 04/15/2024 6:06 AM EST Encounter for other general examination OSMOLALITY Routine 04/14/2024 4:35 AM EST Encounter for other general examination BASIC METABOLIC PANEL Routine 04/14/2024 4:35 AM EST Encounter for other general examination SODIUM, URINE, RANDOM Routine 04/14/2024 3:12 AM EST Encounter for other general examination OSMOLALITY, URINE Routine 04/14/2024 3:1 2 AM EST Encounter for other general examination BASIC METABOLIC PANEL Routine 04/13/2024 5:20 AM EST Encounter for other general examination CBC WITH AUTO DIFFERENTIAL Routine 04/12/2024 7:35 AM EST Encounter for other general examination MAGNESIUM Routine 04/12/2024 7:35 AM EST Encounter for other general examination CBC AND DIFFERENTIAL Routine 04/12/2024 7:35 AM EST Encounter for other general examination COMPREHENSIVE METABOLIC PANEL Routine 04/12/2024 7:35 AM EST Encounter for other general examination from Last 3 Months Results * (ABNORMAL) Complete blood count (06/08/2024 7:16 AM EST) Only the most recent of7 resultswithin the time period is included. WBC 5.0 4.8 - 10.8 K/mcL LAB HEMETOLOGY METHOD 06/08/2024 10:15 AM [facility] RBC 3.80 3.80 - 4.80 M/mcL LAB HEMETOLOGY METHOD 06/08/2024 10:15 AM [facility] Hemoglobin 10.6(L) 11.5 - 16.0 g/dL LAB HEMETOLOGY METHOD 06/08/2024 10:15 AM [facility] Hematocrit 33.0(L) 35.0 - 47.0 % LAB HEMETOLOGY METHOD 06/08/2024 10:15 AM [facility] MCV 86.4 79.0 - 98.0 FL LAB HEMETOLOGY METHOD 06/08/2024 10:15 AM [facility] MCH 27.7 27.0 - 32.0 pcg LAB HEMETOLOGY METHOD 06/08/2024 10:15 AM [facility] MCHC 32.1 32.0 - 37.0 g/dL LAB HEMETOLOGY METHOD 06/08/2024 10:15 AM [facility] RDW 17.9(H) 11.0 - 15.0 % LAB HEMETOLOGY METHOD 06/08/2024 10:15 AM [facility] Platelets 516(H) 130 - 400 K/mcL LAB HEMETOLOGY METHOD 06/08/2024 10:15 AM EST [facility] MPV 8.5 7.0 - 11.0 FL LAB HEMETOLOGY METHOD 06/08/2024 10:15 AM EST [facility] NRBC 0.0 <1.0 % LAB HEMETOLOGY METHOD 06/08/2024 10:15 AM EST [facility] NRBC Absolute 0.00 <0.10 K/mcL LAB HEMETOLOGY METHOD 06/08/2024 10:15 AM EST [facility] Blood Venous blood specimen / Unknown Venipuncture / Unknown 06/08/2024 7:16 AM EST 06/08/2024 9:26 AM EST us Kenny Malave MD LAB BLOOD ORDERABLES Final Resul t [facility] [address] [place] [address], [place] [phone] * Basic metabolic panel (06/08/2024 7:16 AM EST) Only the most recent of10 resultswithin the time period is included. Sodium 136 133 - 145 mmol/L LAB CHEMISTRY METHOD 06/08/2024 11:51 AM [facility] Potassium 5.0 3.5 - 5.5 mmol/L LAB CHEMISTRY METHOD 06/08/2024 11:51 AM EST [facility] Comment:Results verified by repeat testing Chloride 102 96 - 110 mmol/L LAB CHEMISTRY METHOD 06/08/2024 11:51 AM EST [facility] CO2 26 21 - 32 mmol/L LAB CHEMISTRY METHOD 06/08/2024 11:51 AM [facility] Anion Gap 8 3 - 11 LAB CHEMISTRY METHOD 06/08/2024 11:51 AM [facility] Glucose 78 70 - 100 mg/dL LAB CHEMISTRY METHOD 06/08/2024 11:51 AM [facility] BUN 17 5 - 25 mg/dL LAB CHEMISTRY METHOD 06/08/2024 11:51 AM [facility] Creatinine 0.53 0.50 - 1.10 mg/dL LAB CHEMISTRY METHOD 06/08/2024 11:51 AM [facility] eGFR 97 >=60 mL/min/1. 73m2 LAB CHEMISTRY METHOD 06/08/2024 11:51 AM [facility] Comment:Calculation based on the??Chronic Kidney Disease Epidemiology Collaboration (CKD-EPI) equation refit??without adjustment for race. BUN/Creatinine Ratio 32.1 LAB CHEMISTRY METHOD 06/08/2024 11:51 AM [facility] Calcium 9.6 8.5 - 10.5 mg/dL LAB CHEMISTRY METHOD 06/08/2024 11:51 AM [facility] Blood Venous blood specimen / Unknown Venipuncture / Unknown 06/08/2024 7:16 AM EST 06/08/2024 9:26 AM EST us Kenny Malave MD LAB BLOOD ORDERABLES Final Resul t [facility] [address] [place] [address], * (ABNORMAL) Comprehensive metabolic panel (04/28/2024 6:19 AM EST) Only the most recent of5 resultswithin the time period is included. Sodium 127(L) 133 - 145 mmol/L LAB CHEMISTRY METHOD 04/28/2024 12:11 PM [facility] Potassium 3.7 3.5 - 5.5 mmol/L LAB CHEMISTRY METHOD 04/28/2024 12:11 PM [facility] Chloride 91(L) 96 - 110 mmol/L LAB CHEMISTRY METHOD 04/28/2024 12:11 PM [facility] CO2 25 21 - 32 mmol/L LAB CHEMISTRY METHOD 04/28/2024 12:11 PM [facility] Anion Gap 11 3 - 11 LAB CHEMISTRY METHOD 04/28/2024 12:11 PM [facility] Glucose 81 70 - 100 mg/dL LAB CHEMISTRY METHOD 04/28/2024 12:11 PM [facility] BUN 16 5 - 25 mg/dL LAB CHEMISTRY METHOD 04/28/2024 12:11 PM [facility] Creatinine 0.56(L) 0.70 - 1.30 mg/dL LAB CHEMISTRY METHOD 04/28/2024 12:11 PM [facility] eGFR 103 >=60 mL/min/1. 73m2 LAB CHEMISTRY METHOD 04/28/2024 12:11 PM [facility] Comment:Calculation based on the??Chronic Kidney Disease Epidemiology Collaboration (CKD-EPI) equation refit??without adjustment for race. BUN/Creatinine Ratio 28.6 LAB CHEMISTRY METHOD 04/28/2024 12:11 PM [facility] Calcium 9.0 8.5 - 10.5 mg/dL LAB CHEMISTRY METHOD 04/28/2024 12:11 PM [facility] AST (SGOT) 31 10 - 42 unit/L LAB CHEMISTRY METHOD 04/28/2024 12:11 PM [facility] ALT (SGPT) 48 10 - 60 unit/L LAB CHEMISTRY METHOD 04/28/2024 12:11 PM [facility] Alkaline Phosphatase 136(H) 42 - 121 unit/L LAB CHEMISTRY METHOD 04/28/2024 12:11 PM [facility] Total Protein 6.4 6.0 - 8.0 g/dL LAB CHEMISTRY METHOD 04/28/2024 12:11 PM [facility] Albumin 2.9(L) 3.2 - 5.0 g/dL LAB CHEMISTRY METHOD 04/28/2024 12:11 PM [facility] Total Bilirubin 0.5 0.0 - 1.4 mg/dL LAB CHEMISTRY METHOD 04/28/2024 12:11 PM EST [facility] Blood Venous blood specimen / Unknown Venipuncture / Unknown 04/28/2024 6:19 AM EST 04/28/2024 10:16 AM EST Kenny Malave MD LAB BLOOD ORDERABLES Final Resul t Performing Organization Address City/[facility] Co de Phone Number [facility] [address] [place] [address], [place] [phone] * Sodium, urine, random (04/22/2024 4:20 AM EST) Only the most recent of2 resultswithin the time period is included. Sodium, Ur 54 mmol/L LAB CHEMISTRY METHOD 04/22/2024 11:29 AM EST [facility] Urine Urine specimen obtained by clean catch procedure / Unknown 04/22/2024 4:20 AM EST 04/22/2024 9:49 AM EST Ever Reyna MD LAB URINE ORDERABLES Final Res ult Performing Organization Address City/[facility] Co de Phone Number [facility] [address] [place] [address], [place] [phone] * Osmolality, urine (04/22/2024 4:20 AM EST) Only the most recent of2 resultswithin the time period is included. Osmolality, Urine 516 300 - 1,300 mOsm/kg LAB CHEMISTRY METHOD 04/22/2024 11:23 AM EST [facility] Urine Urine specimen obtained by clean catch procedure / Unknown 04/22/2024 4:20 AM EST 04/22/2024 9:49 AM EST us Ever Reyna MD LAB URINE ORDERABLES Final Res ult Performing Organization Address [facility] [place]/[facility] de Phone Number [facility] [address] [place] [address], [place] [phone] * Lipase (04/21/2024 6:13 AM EST) Pathologist [facility] Lipase 47 13 - 75 unit/L LAB CHEMISTRY METHOD 04/21/2024 10:03 AM EST [facility] Blood Venous blood specimen / Unknown Venipuncture / Unknown 04/21/2024 6:13 AM EST 04/21/2024 8:46 AM EST us Ever Reyna MD LAB BLOOD ORDERABLES Final Res ult Performing Organization Address [facility] [place]/[facility] de Phone Number [facility] [address] [place] [address], [place] [phone] * Amylase (04/21/2024 6:13 AM EST) [facility] Amylase 51 25 - 115 unit/L LAB CHEMISTRY METHOD 04/21/2024 10:03 AM EST [facility] Blood Venous blood specimen / Unknown Venipuncture / Unknown 04/21/2024 6:13 AM EST 04/21/2024 8:46 AM EST us Ever Reyna MD LAB BLOOD ORDERABLES Final Res ult Performing Organization Address [facility] [place]/[facility] de Phone Number [facility] [address] [place] [address], [place] [phone] * (ABNORMAL) Osmolality (04/14/2024 4:35 AM EST) [facility] Osmolality Richar 268(L) 280 - 300 mOsm/kg LAB CHEMISTRY METHOD 04/14/2024 11:19 AM EST [facility] Blood Venous blood specimen / Unknown Venipuncture / Unknown 04/14/2024 4:35 AM EST 04/14/2024 9:55 AM EST us Ever Reyna MD LAB BLOOD ORDERABLES Final Res ult [facility] [address] [place] [address], [place] [phone] * (ABNORMAL) CBC auto differential (04/12/2024 7:35 AM EST) WBC 6.1 4.8 - 10.8 K/mcL LAB HEMETOLOGY METHOD 04/12/2024 10:32 AM [facility] RBC 4.20(L) 4.50 - 5.50 M/mcL LAB HEMETOLOGY METHOD 04/12/2024 10:32 AM [facility] Hemoglobin 11.8(L) 13.5 - 17.5 g/dL LAB HEMETOLOGY METHOD 04/12/2024 10:32 AM [facility] Hematocrit 36.0(L) 42.0 - 54.0 % LAB HEMETOLOGY METHOD 04/12/2024 10:32 AM [facility] MCV 85.9 79.0 - 98.0 FL LAB HEMETOLOGY METHOD 04/12/2024 10:32 AM [facility] MCH 28.2 27.0 - 32.0 pcg LAB HEMETOLOGY METHOD 04/12/2024 10:32 AM [facility] MCHC 32.8 32.0 - 37.0 g/dL LAB HEMETOLOGY METHOD 04/12/2024 10:32 AM [facility] RDW 13.2 11.0 - 15.0 % LAB HEMETOLOGY METHOD 04/12/2024 10:32 AM [facility] Platelets 424(H) 130 - 400 K/mcL LAB HEMETOLOGY METHOD 04/12/2024 10:32 AM [facility] MPV 8.6 7.0 - 11.0 FL LAB HEMETOLOGY METHOD 04/12/2024 10:32 AM [facility] NRBC 0.0 <1.0 % LAB HEMETOLOGY METHOD 04/12/2024 10:32 AM [facility] NRBC Absolute 0.00 <0.10 K/mcL LAB HEMETOLOGY METHOD 04/12/2024 10:32 AM [facility] Neutrophils Relative 70.8 % LAB HEMETOLOGY METHOD 04/12/2024 10:32 AM [facility] Lymphocytes Relative 14.7 % LAB HEMETOLOGY METHOD 04/12/2024 10:32 AM [facility] Monocytes Relative 13.7 % LAB HEMETOLOGY METHOD 04/12/2024 10:32 AM [facility] Eosinophils Relative 0.0 % LAB HEMETOLOGY METHOD 04/12/2024 10:32 AM [facility] Basophils Relative 0.3 % LAB HEMETOLOGY METHOD 04/12/2024 10:32 AM [facility] Immature Granulocytes Relative 0.5 % LAB HEMETOLOGY METHOD 04/12/2024 10:32 AM [facility] Neutrophils Absolute 4.32 1.50 - 7.00 K/mcL LAB HEMETOLOGY METHOD 04/12/2024 10:32 AM [facility] Lymphocytes Absolute 0.90(L) 1.00 - 5.00 K/mcL LAB HEMETOLOGY METHOD 04/12/2024 10:32 AM [facility] Monocytes Absolute 0.84 0.20 - 1.00 K/mcL LAB HEMETOLOGY METHOD 04/12/2024 10:32 AM [facility] Eosinophils Absolute 0.00 0.00 - 0.50 K/mcL LAB HEMETOLOGY METHOD 04/12/2024 10:32 AM [facility] Basophils Absolute 0.02 0.00 - 0.20 K/[facility] LAB HEMETOLOGY METHOD 04/12/2024 10:32 AM EST [facility] Immature Granulocytes Absolute 0.03 0.00 - 0.03 K/[facility] LAB HEMETOLOGY METHOD 04/12/2024 10:32 AM EST [facility] Blood Venous blood specimen / Unknown Venipuncture / Unknown 04/12/2024 7:35 AM EST 04/12/2024 10:02 AM EST Ever Reyna MD LAB BLOOD ORDERABLES Final Res ult [facility] [address] [place] [address], [place] [phone] * (ABNORMAL) Magnesium (04/12/2024 7:35 AM EST) Magnesium 1.7(L) 1.9 - 2.6 mg/dL LAB CHEMISTRY METHOD 04/12/2024 10:55 AM EST [facility] Blood Venous blood specimen / Unknown Venipuncture / Unknown 04/12/2024 7:35 AM EST 04/12/2024 10:02 AM EST Ever Reyna MD LAB BLOOD ORDERABLES Final Res ult [facility] [address] [place] [address], [place] [phone] from Last 3 Months Insurance MEDICARE MEDICAID - [place] Care Teams Marketing Analytics Analyst Relationship Specialty Start Date End Date Alan Chanel MD [address] [place] [address] [place] [address] [place] PCP - General Internal Medicine 03/12/24
--- OUTSIDE RECORDS SUMMARY | 2024-07-01 11:19 | XMS_ITS | Encounter Summary ---
Author Organization [facility] Address [address] [place] [address] Care Team Providers Care Health Services Rn Name Role Phone Alan Chanel MD Primary Care Provider Encounter Details Date Type Department Care Team (Late st Contact Info) Description 04/14/2024 Lab Requisition [facility] - Main Lab 299 [facility] [place] [address] Ever Reyna MD [address] [place] [address] Encounter for other general examination Social History [...] Procedure Name Priority Date/Time Associated Diagnosis Comments OSMOLALITY Routine 04/14/2024 4:35 AM EST Encounter for other general examination BASIC METABOLIC PANEL Routine 04/14/2024 4:35 AM EST Encounter for other general examination documented in this encounter Results * (ABNORMAL) Osmolality (04/14/2024 4:35 AM EST) Osmolality Richar 268(L) 280 - 300 mOsm/kg LAB CHEMISTRY METHOD 04/14/2024 11:19 AM EST [facility] ([facility]) [facility] LAB Blood Venous blood specimen / Unknown Venipuncture / Unknown 04/14/2024 4:35 AM EST 04/14/2024 9:55 AM EST us Adnan M Dahdul MD LAB BLOOD ORDERABLES Final Res ult [facility] LAB [address] [place] [address], * (ABNORMAL) Basic metabolic panel (04/14/2024 4:35 AM EST) Sodium 128(L) 133 - 145 mmol/L LAB CHEMISTRY METHOD 04/14/2024 10:39 AM [facility] LAB Potassium 4.3 3.5 - 5.5 mmol/L LAB CHEMISTRY METHOD 04/14/2024 10:39 AM [facility] LAB Chloride 91(L) 96 - 110 mmol/L LAB CHEMISTRY METHOD 04/14/2024 10:39 AM [facility] LAB CO2 26 21 - 32 mmol/L LAB CHEMISTRY METHOD 04/14/2024 10:39 AM [facility] LAB Anion Gap 11 3 - 11 LAB CHEMISTRY METHOD 04/14/2024 10:39 AM [facility] LAB Glucose 71 70 - 100 mg/dL LAB CHEMISTRY METHOD 04/14/2024 10:39 AM [facility] LAB BUN 14 5 - 25 mg/dL LAB CHEMISTRY METHOD 04/14/2024 10:39 AM [facility] LAB Creatinine 0.60(L) 0.70 - 1.30 mg/dL LAB CHEMISTRY METHOD 04/14/2024 10:39 AM [facility] LAB eGFR 101 >=60 mL/min/1. 73m2 LAB CHEMISTRY METHOD 04/14/2024 10:39 AM [facility] LAB Comment:Calculation based on the??Chronic Kidney Disease Epidemiology Collaboration (CKD-EPI) equation refit??without adjustment for race. BUN/Creatinine Ratio 23.3 LAB CHEMISTRY METHOD 04/14/2024 10:39 AM [facility] LAB Calcium 9.4 8.5 - 10.5 mg/dL LAB CHEMISTRY METHOD 04/14/2024 10:39 AM EST [facility] LAB Blood Venous blood specimen / Unknown Venipuncture / Unknown 04/14/2024 4:35 AM EST 04/14/2024 9:55 AM EST us Ever Reyna MD LAB BLOOD ORDERABLES Final Res ult [facility] LAB [address] [place] [address], documented in this encounter Visit Diagnoses Diagnosis Encounter for other general examination documented in this encounter Care Teams Health Services Rn Relationship Specialty Start Date End Date Alan Chanel MD [address] [place] [address] [address] [place] PCP - General Internal Medicine 03/12/24 documented as of this encounter
--- OUTSIDE RECORDS SUMMARY | 2024-07-01 11:19 | XMS_ITS | Encounter Summary ---
Author Organization [facility] Address [address] [place] [address] Care Team Providers Care Heavy Lift Rigger Name Role Phone Alan Chanel MD Primary Care Provider Encounter Details Date Type Department Care Team (Late st Contact Info) Description 04/22/2024 Lab Requisition [facility] - Main Lab 299 [facility] [place] [address] Ever Reyna MD [address] [place] [id number] Encounter for other general examination Social History [...] Associated Diagnosis Comments BASIC METABOLIC PANEL Routine 04/22/2024 5:40 AM EST Encounter for other general examination documented in this encounter Results * (ABNORMAL) Basic metabolic panel (04/22/2024 5:40 AM EST) Sodium 127(L) 133 - 145 mmol/L LAB CHEMISTRY METHOD 04/22/2024 11:08 AM EST [facility] LAB Potassium 3.6 3.5 - 5.5 mmol/L LAB CHEMISTRY METHOD 04/22/2024 11:08 AM EST [facility] LAB Chloride 91(L) 96 - 110 mmol/L LAB CHEMISTRY METHOD 04/22/2024 11:08 AM EST [facility] LAB CO2 26 21 - 32 mmol/L LAB CHEMISTRY METHOD 04/22/2024 11:08 AM [facility] LAB Anion Gap 10 3 - 11 LAB CHEMISTRY METHOD 04/22/2024 11:08 AM [facility] LAB Glucose 77 70 - 100 mg/dL LAB CHEMISTRY METHOD 04/22/2024 11:08 AM [facility] LAB BUN 10 5 - 25 mg/dL LAB CHEMISTRY METHOD 04/22/2024 11:08 AM [facility] LAB Creatinine 0.55(L) 0.70 - 1.30 mg/dL LAB CHEMISTRY METHOD 04/22/2024 11:08 AM [facility] LAB eGFR 104 >=60 mL/min/1. 73m2 LAB CHEMISTRY METHOD 04/22/2024 11:08 AM [facility] LAB Comment:Calculation based on the??Chronic Kidney Disease Epidemiology Collaboration (CKD-EPI) equation refit??without adjustment for race. BUN/Creatinine Ratio 18.2 LAB CHEMISTRY METHOD 04/22/2024 11:08 AM [facility] LAB Calcium 8.8 8.5 - 10.5 mg/dL LAB CHEMISTRY METHOD 04/22/2024 11:08 AM [facility] LAB Blood Venous blood specimen / Unknown Venipuncture / Unknown 04/22/2024 5:40 AM EST 04/22/2024 10:03 AM EST us Ever Reyna MD LAB BLOOD ORDERABLES Final Res ult [facility] LAB [address] [place] [address], documented in this encounter Visit Diagnoses Diagnosis Encounter for other general examination documented in this encounter Care Teams Heavy Lift Rigger Relationship Specialty Start Date End Date Alan Chanel MD [address] [place] [address] [address] [place] PCP - General Internal Medicine 03/12/24 documented as of this encounter
== END 2024-06-30 09:44 | disposition home or self-care (01) ==
LOC: HO.HOSX 09:43
PROVIDERS: Visit Provider Physician Assistant
DX: Z13.89 Encounter for screening for other disorder (principal)

== ENCOUNTER 2024-07-09 09:04 | Outpatient (AMB) | payer MEDICARE, MEDICAID, SELFPAY ==
--- NOTE | 2024-07-09 09:18 | A.OFFVIS_ITS ---
Intake Visit Reasons: OV - LT tibial plateau fx, DOI 03/2024 Intake Note: Trevon is a 73 year old female who presents to the office today for a follow up of her left tibial plateau fracture, DOI 03/2024. Patient states she is doning better. She does feel a little pinching sensation on the patella. Patient worked with PT and she finds that it helped her. Allergies No Known Allergies [No Known Allergies*] Allergy (Verified 07/09/24 09:18) HPI HPI OV - LT tibial plateau fx, DOI 03/2024: Details: Ms. Aguilar 73-year-old female who presents the office today for routine follow- up status post left tibial plateau fracture that she sustained on 04-01-24. She has been residing in a rehab facility. She reports that she has been in the ACL brace locked in extension. Physical therapy has not been working on range of motion with her. Her family member accompanies her to today's appointment and confirms that physical therapy has not been working with her. She has been when nonweightbearing on the left lower extremity. She reports no pain or discomfort. [facility] Medical History De Quervain's tenosynovitis, left Arthritis of hand, left, degenerative Hearing impairment Smoker Depression Anxiety Osteoporosis Urinary urgency Urinary incontinence Varicose veins of bilateral lower extremities with pain Peripheral polyneuropathy Pure hypercholesterolemia Anemia Compression fracture of L4 vertebra with routine healing Lumbar degenerative disc disease Benign essential hypertension COPD (chronic obstructive pulmonary disease) Surgical History History of cystoscopy History of bilateral cataract extraction Family History Father No problems noted. Mother Lung cancer Sister Down syndrome Maternal Grandfather Lung cancer Maternal Grandmother Lung cancer Social History Household Members: None Housing: House Alcohol intake: never Patient Tobacco Use Status: Former Tobacco user Tobacco use type: Cigarette Cigarette Packs Per Day: 2 Cigarettes Per Day: 40 e-Cigarette/Vaping Use: Never Used Second Hand Smoke Exposure: Yes Advance Directives Date on File: 04/10/24 service: No Current occupational status: retired Cognitive needs: No Hearing needs: Yes Vision needs: Yes (Glasses) Review of Systems Const All systems reviewed & are unremarkable except as noted in HPI and below Physical Exam Const General: cooperative, healthy appearing and no acute distress Orientation/consciousness: patient oriented x3 Resp Effort & Inspection: normal respiratory effort and able to speak in complete se ntences Cardio Rate: regular rate Peripheral pulses: Peripheral pulses 2+ throughout Skin General skin exam: no rashes or lesions noted Lesions: no lesions Rashes: no rashes Neuro General: patient oriented x3 Extrem Other: Left knee: Normal to inspection. No ecchymosis, erythema, or joint effusion. Tenderness to palpation along the lateral joint line. No tenderness to palpation medial joint line. Able to perform flexion and plantar flexion on the left, but is weaker than the right. Pedal pulse intact. Assessment & Plan Assessment & Plan (1) Fracture of left tibial plateau: Code(s): S82.142A - Displaced bicondylar fracture of left tibia, initial encounter for closed fracture Category: Medical Plan Ms. Aguilar 73-year-old female who presents the office today for routine follow- up status post left tibial plateau fracture that she sustained on 04-01-24. She has been residing in a rehab facility. She reports that she has been in the ACL brace locked in extension. Physical therapy has not been working on range of motion with her. Her family member accompanies her to today's appointment and confirms that physical therapy has not been working with her. She has been when nonweightbearing on the left lower extremity. She reports no pain or discomfort. While the office today I recommended that the patient continue wearing the brace for support but I have completely unlocked the brace. She may weight bear as tolerated with no [id number] restrictions. I would recommend using a walker to assist with ambulation. Additionally I have made recommendations for physical therapy to work on glute core and quad strengthening as well as gait training. She will follow-up in 4-6 weeks with repeat x-rays, sooner if needed. X-rays of the left knee which were obtained while in the office today and were reviewed by me, Marielle Man PA-C, revealed healed tibial plateau fracture. Orders: Orders XR knee RT 1V Today M25.569 - Pain in unspecified knee XR knee LT 3V Today M25.569 - Pain in unspecified knee Coding Level of Care Code Est Pt Level 3 (09517) Diagnoses Fracture of left tibial plateau S82.142A
--- OUTSIDE RECORDS SUMMARY | 2024-07-09 10:01 | XMS_ITS | Encounter Summary ---
Author Organization [facility] Address [address] [place] [address] Care Team Providers Care Wild Animal Caretaker Name Role Phone Alan Chanel MD Primary Care Provider Encounter Details Date Type Department Care Team (Late st Contact Info) Description 04/20/2024 Lab Requisition [facility] - Main Lab [address] [place] [address] Ever Reyna MD [address] [place] [phone] Encounter for other general examination Social History [...] AM EST) WBC 3.3(L) 4.8 - 10.8 K/[facility] LAB HEMETOLOGY METHOD 04/20/2024 9:17 AM EST [facility] LAB RBC 4.20(L) 4.50 - 5.50 M/[facility] LAB HEMETOLOGY METHOD 04/20/2024 9:17 AM EST [facility] LAB Hemoglobin 11.7(L) 13.5 - 17.5 g/dL LAB HEMETOLOGY METHOD 04/20/2024 9:[address] [facility] LAB Hematocrit 35.0(L) 42.0 - 54.0 % LAB HEMETOLOGY METHOD 04/20/2024 9:[address] [facility] LAB MCV 83.7 79.0 - 98.0 FL LAB HEMETOLOGY METHOD 04/20/2024 9:[address] [facility] LAB MCH 28.0 27.0 - 32.0 pcg LAB HEMETOLOGY METHOD 04/20/2024 9:[address] [facility] LAB MCHC 33.4 32.0 - 37.0 g/dL LAB HEMETOLOGY METHOD 04/20/2024 9:[address] [facility] LAB RDW 13.3 11.0 - 15.0 % LAB HEMETOLOGY METHOD 04/20/2024 9:[address] [facility] LAB Platelets 437(H) 130 - 400 K/mcL LAB HEMETOLOGY METHOD 04/20/2024 9:[address] [facility] LAB MPV 8.3 7.0 - 11.0 FL LAB HEMETOLOGY METHOD 04/20/2024 9:[address] [facility] LAB NRBC 0.0 <1.0 % LAB HEMETOLOGY METHOD 04/20/2024 9:[address] [facility] LAB NRBC Absolute 0.00 <0.10 K/mcL LAB HEMETOLOGY METHOD 04/20/2024 9:[address] [facility] LAB Blood Venous blood specimen / Unknown Venipuncture / Unknown 04/20/2024 5:20 AM EST 04/20/2024 8:31 AM EST us Ever Reyna MD LAB BLOOD ORDERABLES Final Res ult [facility] LAB [address] [place] [address], * (ABNORMAL) Comprehensive metabolic panel (04/20/2024 5:20 AM EST) Sodium 128(L) 133 - 145 mmol/L LAB CHEMISTRY METHOD 04/20/2024 10:[address] [facility] LAB Potassium 4.0 3.5 - 5.5 mmol/L LAB CHEMISTRY METHOD 04/20/2024 10:[address] [facility] LAB Chloride 90(L) 96 - 110 mmol/L LAB CHEMISTRY METHOD 04/20/2024 10:[address] [facility] LAB CO2 25 21 - 32 mmol/L LAB CHEMISTRY METHOD 04/20/2024 10:[address] [facility] LAB Anion Gap 13(H) 3 - 11 LAB CHEMISTRY METHOD 04/20/2024 10:[address] [facility] LAB Glucose 79 70 - 100 mg/dL LAB CHEMISTRY METHOD 04/20/2024 10:[address] [facility] LAB BUN 11 5 - 25 mg/dL LAB CHEMISTRY METHOD 04/20/2024 10:[address] [facility] LAB Creatinine 0.65(L) 0.70 - 1.30 mg/dL LAB CHEMISTRY METHOD 04/20/2024 10:[address] [facility] LAB eGFR 99 >=60 mL/min/1. 73m2 LAB CHEMISTRY METHOD 04/20/2024 10:[address] [facility] LAB Comment:Calculation based on the??Chronic Kidney Disease Epidemiology Collaboration (CKD-EPI) equation refit??without adjustment for race. BUN/Creatinine Ratio 16.9 LAB CHEMISTRY METHOD 04/20/2024 10:[address] [facility] LAB Calcium 9.1 8.5 - 10.5 mg/dL LAB CHEMISTRY METHOD 04/20/2024 10:[address] [facility] LAB AST (SGOT) 309(H) 10 - 42 unit/L LAB CHEMISTRY METHOD 04/20/2024 10:[address] [facility] LAB ALT (SGPT) 248(H) 10 - 60 unit/L LAB CHEMISTRY METHOD 04/20/2024 10:[address] [facility] LAB Alkaline Phosphatase 209(H) 42 - 121 unit/L LAB CHEMISTRY METHOD 04/20/2024 10:[address] [facility] LAB Total Protein 6.4 6.0 - 8.0 g/dL LAB CHEMISTRY METHOD 04/20/2024 10:[address] [facility] LAB Albumin 3.1(L) 3.2 - 5.0 g/dL LAB CHEMISTRY METHOD 04/20/2024 10:[address] [facility] LAB Total Bilirubin 0.3 0.0 - 1.4 mg/dL LAB CHEMISTRY METHOD 04/20/2024 10:[address] [facility] LAB Blood Venous blood specimen / Unknown Venipuncture / Unknown 04/20/2024 5:20 AM EST 04/20/2024 8:31 AM EST us Ever Reyna MD LAB BLOOD ORDERABLES Final Res ult [facility] [address] [place] [address], documented in this encounter Visit Diagnoses Diagnosis Encounter for other general examination documented in this encounter Care Teams Wild Animal Caretaker Relationship Specialty Start Date End Date Alan Chanel MD [address] [facility] [address] [place] PCP - General Internal Medicine 03/12/24 documented as of this encounter
--- OUTSIDE RECORDS SUMMARY | 2024-07-09 10:01 | XMS_ITS | Encounter Summary ---
Author Organization [facility] Address [address] [place] [address] Care Team Providers Care Entry Level Machine Operator Name Role Phone Alan Chanel MD Primary Care Provider Encounter Details Date Type Department Care Team (Late st Contact Info) Description 04/21/2024 Lab Requisition [facility] - Main Lab [address] [place] [address] Ever Reyna MD [address] [place] [phone] Encounter for other general examination Social History [...] LAB CHEMISTRY METHOD 04/21/2024 10:03 AM EST [facility] ([facility]) [facility] LAB Blood Venous blood specimen / Unknown Venipuncture / Unknown 04/21/2024 6:13 AM EST 04/21/2024 8:46 AM EST us Ever Reyna MD LAB BLOOD ORDERABLES Final Res ult Performing Organization Address [facility]/ZIP Co de Phone Number [facility] LAB [address] [place] [address], [place] [phone] * Amylase (04/21/2024 6:13 AM EST) [facility] Amylase 51 25 - 115 unit/L LAB CHEMISTRY METHOD 04/21/2024 10:03 AM [facility] LAB Blood Venous blood specimen / Unknown Venipuncture / Unknown 04/21/2024 6:13 AM EST 04/21/2024 8:46 AM EST us Ever Reyna MD LAB BLOOD ORDERABLES Final Res ult Performing Organization Address [facility] Co de Phone Number [facility] [address] [place] [address], [place] [phone] * (ABNORMAL) Comprehensive metabolic panel (04/21/2024 6:13 AM EST) [facility] Sodium 126(L) 133 - 145 mmol/L LAB CHEMISTRY METHOD 04/21/2024 10:06 AM [facility] LAB Potassium 3.7 3.5 - 5.5 mmol/L LAB CHEMISTRY METHOD 04/21/2024 10:06 AM [facility] LAB Chloride 91(L) 96 - 110 mmol/L LAB CHEMISTRY METHOD 04/21/2024 10:06 AM [facility] LAB CO2 26 21 - 32 mmol/L LAB CHEMISTRY METHOD 04/21/2024 10:06 AM [facility] LAB Anion Gap 9 3 - 11 LAB CHEMISTRY METHOD 04/21/2024 10:06 AM [facility] LAB Glucose 82 70 - 100 mg/dL LAB CHEMISTRY METHOD 04/21/2024 10:06 AM [facility] BUN 10 5 - 25 mg/dL LAB CHEMISTRY METHOD 04/21/2024 10:06 AM [facility] LAB Creatinine 0.67(L) 0.70 - 1.30 mg/dL LAB CHEMISTRY METHOD 04/21/2024 10:06 AM [facility] LAB eGFR 98 >=60 mL/min/1. 73m2 LAB CHEMISTRY METHOD 04/21/2024 10:06 AM [facility] LAB Comment:Calculation based on the??Chronic Kidney Disease Epidemiology Collaboration (CKD-EPI) equation refit??without adjustment for race. BUN/Creatinine Ratio 14.9 LAB CHEMISTRY METHOD 04/21/2024 10:06 AM [facility] LAB Calcium 8.8 8.5 - 10.5 mg/dL LAB CHEMISTRY METHOD 04/21/2024 10:06 AM [facility] LAB AST (SGOT) 208(H) 10 - 42 unit/L LAB CHEMISTRY METHOD 04/21/2024 10:06 AM [facility] ALT (SGPT) 210(H) 10 - 60 unit/L LAB CHEMISTRY METHOD 04/21/2024 10:06 AM [facility] LAB Alkaline Phosphatase 210(H) 42 - 121 unit/L LAB CHEMISTRY METHOD 04/21/2024 10:06 AM [facility] Total Protein 6.5 6.0 - 8.0 g/dL LAB CHEMISTRY METHOD 04/21/2024 10:06 AM [facility] Albumin 3.2 3.2 - 5.0 g/dL LAB CHEMISTRY METHOD 04/21/2024 10:06 AM [facility] Total Bilirubin 0.3 0.0 - 1.4 mg/dL LAB CHEMISTRY METHOD 04/21/2024 10:06 AM [facility] LAB Blood Venous blood specimen / Unknown Venipuncture / Unknown 04/21/2024 6:13 AM EST 04/21/2024 8:46 AM EST us Ever Reyna MD LAB BLOOD ORDERABLES Final Res ult [facility] ([facility]) [facility] [address] [place] [address], documented in this encounter Visit Diagnoses Diagnosis Encounter for other general examination documented in this encounter Care Teams Entry Level Machine Operator Relationship Specialty Start Date End Date Alan Chanel MD [address] [place] [address] Dr [address] [place], [place] PCP - General Internal Medicine 03/12/24 documented as of this encounter
--- OUTSIDE RECORDS SUMMARY | 2024-07-09 10:01 | XMS_ITS | Continuity of Care Document ---
Author Organization [facility], [facility] Address [address] [place] [address] Care Team Providers Care Corporate Tutor Name Role Phone DANIEL PETER - 2ND FLOOR OTHER LAUREN ROSAS Primary Care Provider [phone] Assessment No assessment recorded. Plan of Treatment [...] Recorded Time Adult failure to thrive syndrome 781695276 Active 2023 Kenny Malave MD [address] [facility], [facility] [address], [address], [facility] 13:42:50 Syndrome of inappropria te vasopressin secretion 16094560 Active 2023 Kenny Malave MD [address] [place] [address], [address], [place], [address], [facility] 13:42:57 Unsteady when walking 00207532 Active 2023 Kenny Malave MD [address] [place] [address], [address], [place], [address], [facility] 13:43:03 Essential hypertensio n 47142810 Active 2023 Kenny Malave MD [address] [place] [address], [address], [place], [address], [facility] 13:43:09 Anemia 047582656 Active 2023 Kenny Malave MD [address], [address], [place], [address], [facility] 4 13:43:14 Chronic obstructive pulmonary disease 60013518 Active 2023 Kenny Malave MD [address], [address], [place], [address], [facility] 13:43:19 Osteoporosi s 91504446 Active 2023 Kenny Malave MD [address], [address], [place], [address], [facility] 13:43:27 Neuropathy 757372374 Active 2023 Kenny Malave MD [address] [facility], [address], [place], [address], [facility] 13:43:33 Mood disorder 86068415 Active 2023 Kenny Malave MD [address] [facility], [address], [place], [address], [facility] 13:43:41 Closed fracture of left patella 5309804100440 9105 Active 2023 Kenny Malave MD [address] [facility], [address], [place], [address], [facility] 13:44:22 Hearing loss 89984724 Active 2023 Kenny Malave MD [address] [facility], [address], [place], [address], [facility] 13:56:41 Problem Notes None recorded. Medical Equipment None Reported. Allergies No known drug allergies Medications Not known to be on any medication Vitals Date Recorded Body weight Heart rate Respiratory rate Body temperature Oxygen saturation Oxygen saturation in Arterial blood by Pulse oximetry Systolic blood pressure Diastolic blood pressure Provider Name and Address Organization Details Last Updated DateTime 5 97685.9 4 g 70 /min 16 /min 98.2 [degF] 98 % 98 % 112 mm[Hg] 68 mm[Hg] Radha Hickey NP [address] [facility], [address], [place], [address], [facility] 5 18:26:52 Social History Question Answer Notes LastModified by Organizat ion Details LastModified Time Tobacco Smoking Status Former Smoker 2 ppd smoker quit early 2023 Kenny Malave MD [address] [facility], [address], [place], [address], [facility] 04/28/2024 13:58:17 Do You Have An Advance Directive? No Information not available 04/28/2024 What Is Your Level Of Alcohol Consumption? None Information not available 04/28/2024 What Is Your Code Status? [id number] [id number] Information not available 04/30/2024 How Much Tobacco [...] Details Recorded Time Tdap 6 completed Joann Kulwant [facility] 05/05/2024 16:34:17 pneumococcal polysaccharide PPV23 6 completed Joann Blum [facility] 05/05/2024 16:34:32 influenza, unspecified formulation 4 completed Joann Blum [facility] 05/05/2024 16:34:49 influenza, unspecified formulation 3 completed Joann Blum [facility] 05/05/2024 16:34:56 influenza, unspecified formulation 2 completed Joann Blum [facility] 05/05/2024 16:35:02 Past Encounters Encounter ID Performer Location Encounter Start Date Encounter Closed Date Diagnosis/Indication Diagnosis SNOMED-CT Code Diagnosis ICD10 Code Diagnosis Note [id number] MAYDA WHIPPLE NP [address] [address] 06/03/2024 15:04:46 06/05/2024 09:47:09 Viral gastroenteritis 756119494 A08.4 N/V/GI upset x 2-3d last weekNow resolved. Closed fra cture of left patella 1766675582 2070869 S82.015G prior fall with left knee fxcontACL brace in placePT OT eval and tx.Seen by Ortho 2 wks ago, still no note scanned into EMR. Will request again.Foll ow ortho recs and update with concernstr amadol 50 mg q 8 prnmonitor pain controlfu with ortho [facility] as sched. Unsteady when walking 22 649583 R26.89 NWB LLE till cleared by orthoPT OT eval and treat for deconditio ningmonito r Adult fail ure to thrive syndrome 657417453 R62.7 see HPIshe was not able to be cared for in community with tibia fxmonitor need for increased servicesco ntinue supportive care at facilitymo nitor weights, intake Syndrome o f inappropriate vasopressin secretion 87434712 E22.2 monitor Na and need to adjust fluid restrictio nMost recent level 135 on 05/28no s/s of siadhMonit or labs Acute hypokalemia 766037 03 E87.6 improved with supplement current K level 3.3not on obvious K depleting medsmonito r lytes - repeat in am Essential hypertension 19686588 I10 bp stablecont inue lisinopril 5 mg qdmonitor bp and need to titrate Anemia 292043770 D50.8 monitor cbcHgb. 11iron studies prn Chronic ob structive pulmonary disease 18005677 J41.1 carrying dx added to PMHmonitor respirator y statusadva ir inhaler 1 puff po bidalbuter ol for wheezes q 4 prn Osteoporosis 34501317 M8 1.0 hx ofcontinue calcium Neuropathy 586274098 G62 .89 hx ofmonitor sx Mood disorder 18349743 F 34.89 with underlying anxietyati van 0.5 mg bidzoloft 50 mg qdSeen by Psych provider 05/11, no new recommenda tionsMonit or mood, behaviors. [id number] Radha Hickey NP [address] [address] 06/05/2024 08:46:02 06/08/2024 14:56:21 Viral gastroenteritis 736062965 A08.4 resolvingN /V/GI upset x 2-3d last week with likely potassium loss related to virus and vomitingNo w resolved. Closed fra cture of left patella 5335368078 0893355 S82.015G prior fall with left knee fxcontACL brace in placePT OT eval and tx.Seen by Ortho 2 wks ago, still no note scanned into EMR. Will request again.Foll ow ortho recs and update with concernstr amadol 50 mg q 8 prnmonitor pain controlfu with ortho [facility] as sched. Unsteady when walking 22 845145 R26.89 NWB LLE till cleared by orthoPT OT eval and treat for deconditio ningmonito r Adult fail ure to thrive syndrome 492218563 R62.7 see HPIshe was not able to be cared for in community with tibia fxmonitor need for increased servicesco ntinue supportive care at facilitymo nitor weights, intake Syndrome o f inappropriate vasopressin secretion 99236029 E22.2 monitor Na and need to adjust fluid restrictio nMost recent level 138 improving from last weekno s/s of siadhMonit or labs Acute hypokalemia 345976 03 E87.6 current K level 3.2 with recent loss for gi virus06/05 start potassium 40 meq x 2 dosesrepea t labs on 06/08 Chronic ob structive pulmonary disease 54305154 J41.1 carrying dx added to PMHmonitor respirator y statusadva ir inhaler 1 puff po bidalbuter ol for wheezes q 4 prn Mood disorder 13594377 F 34.89 with underlying anxietyati van 0.5 mg bidzoloft 50 mg qdSeen by Psych provider 05/11, no new recommenda tionsMonit or mood, behaviors. Essential hypertension 75861468 I10 bp stablecont inue lisinopril 5 mg qdmonitor bp and need to titrate [id number] [facility] [address] 06/11/2024 11:27:16 06/12/2024 13:49:32 Acute hypokalemia 45750524 E87.6 labs improved on 06/08 with k supplement sp gi virus Viral gastroenteritis 11 1139320 A08.4 resolvedN/ V/GI upset x 2-3d last week with likely potassium loss related to virus and vomitingNo w resolved. Closed fra cture of left patella 7573814039 4103646 S82.015G prior fall with left knee fxcontACL brace in placePT OT eval and tx.Seen by Ortho 2 wks ago, still no note scanned into EMR. Will request again.Foll ow ortho recs and update with concernstr amadol 50 mg q 8 prnmonitor pain controlfu with ortho [facility] as sched. Unsteady when walking 22 615451 R26.89 NWB LLE till cleared by orthoPT OT eval and treat for deconditio ningmonito r Adult fail ure to thrive syndrome 526294090 R62.7 see HPIshe was not able to be cared for in community with tibia fxmonitor need for increased servicesco ntinue supportive care at facilitymo nitor weights, intake Syndrome o f inappropriate vasopressin secretion 72238454 E22.2 monitor Na and need to adjust fluid restrictio nno s/s of siadhMonit or labs as above Chronic ob structive pulmonary disease 27762637 J41.1 carrying dx added to PMHmonitor respirator y statusadva ir inhaler 1 puff po bidalbuter ol for wheezes q 4 prn Mood disorder 85437553 F 34.89 with underlying anxiety, stable hereativan 0.5 mg bidzoloft 50 mg qdSeen by Psych provider 05/11, no new recommenda tionsMonit or mood, behaviors. [id number] MAYDA WHIPPLE NP [facility] [address] 06/17/2024 09:17:58 06/18/2024 13:31:49 Acute hypokalemia 63363894 E87.6 labs improved on 06/08 = 5Continue to monitor Viral gastroenteritis 11 1068883 A08.4 resolved Closed fra cture of left patella 2393288227 3057530 S82.015G prior fall with left knee fxcontACL brace in placePT OT eval and tx.Follow ortho recs and update with concernsNe xt appt. 06/30tramad ol 50 mg q 8 prnmonitor pain control Unsteady when walking 22 024818 R26.89 NWB LLE till cleared by orthoPT OT eval and treat for deconditio ningmonito r Adult fail ure to thrive syndrome 635815595 R62.7 see HPIshe was not able to be cared for in community with tibia fxmonitor need for increased services in prep. for dischargec ontinue supportive care at facilitymo nitor weights, intake Syndrome o f inappropriate vasopressin secretion 42513659 E22.2 monitor Na, currently 136Does not appear to be on a FR at this time.no s/s of siadhMonit or labs Chronic ob structive pulmonary disease 70620570 J41.1 monitor respirator y status - currently stablecont inue:advai r inhaler 1 puff po bidalbuter ol for wheezes q 4 prn Mood disorder 49973497 F 34.89 with underlying anxietyCon tinue:ativ an 0.5 mg bidzoloft 50 mg qdSeen by Psych provider 05/11, no new recommenda tionsMonit or mood, behaviors. Essential hypertension 90071732 I10 VSScontinu e lisinopril 5 mg qdmonitor bp and need to titrate Osteoporosis 19950780 M8 1.0 hx ofcontinue calcium Anemia 756380818 D50.8 monitor cbcHgb. 10.6iron studies prn Neuropathy 817569729 G62 .89 hx ofmonitor sx [id number] Radha Hickey NP [address] [address] 06/24/2024 10:59:23 06/26/2024 16:05:53 Acute hypokalemia 28248343 E87.6 stablelike ly related to gi viruslabs improved on 06/08 = 5Continue to monitor Viral gastroenteritis 11 6491284 A08.4 resolved Closed fra cture of left patella 9403592228 5369690 S82.015G prior fall with left knee fxcontACL brace in placePT OT eval and tx.Follow ortho recs and update with concernsNe xt appt. 06/30tramad ol 50 mg q 8 prnmonitor pain control Unsteady when walking 22 462628 R26.89 NWB LLE till cleared by orthoPT OT eval and treat for deconditio funmilayo prnmonitor Adult fail ure to thrive syndrome 937567359 R62.7 not able to be cared for in community with tibia fxmonitor need for increased services in prep. for dischargec ontinue supportive care at facilitymo nitor weights, intake Syndrome o f inappropriate vasopressin secretion 29724423 E22.2 monitor Na, labs as aboveDoes not appear to be on a FR at this time.no s/s of siadhMonit or labs Chronic ob structive pulmonary disease 33122173 J41.1 monitor respirator y status - currently stablecont inue:advai r inhaler 1 puff po bidalbuter ol for wheezes q 4 prn Mood disorder 96092186 F 34.89 with underlying anxiety, stable on ativan hereContin ue:ativan 0.5 mg bidzoloft 50 mg qdSeen by Psych provider 05/11, no new recommenda tionsMonit or mood, behaviors. [id number] Radha Hickey NP [address] [address] 07/03/2024 07:35:22 07/07/2024 12:51:41 Closed fracture of left patella 9301477242 7793626 S82.015G prior fall with left knee fxcontACL brace in placePT OT eval and tx. prn, currently off therapyFol low ortho recs and update with concernsap pt. 06/30, awaiting progress notetramad ol 50 mg q 8 prnmonitor pain control Unsteady when walking 22 741456 R26.89 NWB LLE till cleared by ortho, awaiting note from ortho 06/30 for recPT OT eval and treat for deconditio funmilayo prnmonitor Adult fail ure to thrive syndrome 113077264 R62.7 doing well here overallnot able to be cared for in community with tibia fxmonitor need for increased services in prep. for dischargec ontinue supportive care at facilitymo nitor weights, intake Mood disorder 62759931 F 34.89 with underlying anxiety, stable on ativan hereContin ue:ativan 0.5 mg bidzoloft 50 mg qdSeen by Psych provider 05/11, no new recommenda tionsMonit or mood, behaviors. Health Concerns Section Related Observation LastModified by Organization Detai ls LastModified Time None Recorded Concern Status LastModified by Organization Details LastModified Time None Recorded Payers Encounter Date Sequence Insurance Name Policy Number Policy Rock Covered Member ID Rock Member ID Guarantor Name 07/03/2024 1 [place] [employer] Trevon Nieto Lauren [id number] Trevon Lauren 07/03/2024 2 [place] [facility] Trevon Echavarriaoux [id number] Trevon Echavarriaoux Notes Date Note Type Note Provider Name and Address Organization Details Recorded Time 07/03/2024 text/html Pt is seen today for an acute rounding visit PMH significant for siadh,htn,anemia,copd ,osteoporosis,neuropa thy,mood disorder NOS She is a 73 yo f, here for rehab and continued care after hospitalization for FTT and left knee fx. She had follow up with Ortho on 06/30, continues to wear LLE brace on 05/19/24. She is not working with therapy currently as her goals were met per notes. She did fu with ortho on 06/30. Awaiting progress note. On exam, Trevon is motoring in a wheelchair in [facility]. Leg pain overall improved, denies pain today. She is eating, drinking, and moving bowels regularly. of note; She presented with left knee pain and inability to be cared for in community. Patient had fall in Nov resulting in left knee fx. Discharged from outside SNF 2 weeks prior. Patient lives alone with sister nearby however unable to care for self. 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 Placed in ACL brace by ortho with f/u in place on 06/30 to be NWB x 3 months till cleared by ortho. Radha Hickey, SHEBA [address] [facility], [address], [place], [address], [facility] 07/03/2024 18:35:46 OBGyn Episode No OBEpisode recorded.
--- OUTSIDE RECORDS SUMMARY | 2024-07-09 10:01 | XMS_ITS | Encounter Summary ---
Author Organization [facility] Address [address] [place] [address] Care Team Providers Care Geological Technical Officer Name Role Phone Alan Chanel MD Primary Care Provider Encounter Details Date Type Department Care Team (Late st Contact Info) Description 04/12/[address] [facility] Lab [address] [facility] [place] [address] Ever Reyna MD [address] [place] [address] Encounter for other general examination Social History [...] AM EST) WBC 6.1 4.8 - 10.8 K/[facility] LAB HEMETOLOGY METHOD 04/12/2024 10:32 AM [facility] RBC 4.20(L) 4.50 - 5.50 M/mcL LAB HEMETOLOGY METHOD 04/12/2024 10:32 AM [facility] Hemoglobin 11.8(L) 13.5 - 17.5 g/dL LAB HEMETOLOGY METHOD 04/12/2024 10:32 AM [facility] Hematocrit 36.0(L) 42.0 - 54.0 % LAB HEMETOLOGY METHOD 04/12/2024 10:32 AM [facility] MCV 85.9 79.0 - 98.0 FL LAB HEMETOLOGY METHOD 04/12/2024 10:32 AM [facility] MCH 28.2 27.0 - 32.0 pcg LAB HEMETOLOGY METHOD 04/12/2024 10:32 AM [facility] MCHC 32.8 32.0 - 37.0 g/dL LAB HEMETOLOGY METHOD 04/12/2024 10:32 AM [facility] RDW 13.2 11.0 - 15.0 % LAB HEMETOLOGY METHOD 04/12/2024 10:32 AM [facility] Platelets 424(H) 130 - 400 K/mcL LAB HEMETOLOGY METHOD 04/12/2024 10:32 AM [facility] MPV 8.6 7.0 - 11.0 FL LAB HEMETOLOGY METHOD 04/12/2024 10:32 AM [facility] NRBC 0.0 <1.0 % LAB HEMETOLOGY METHOD 04/12/2024 10:32 AM [facility] NRBC Absolute 0.00 <0.10 K/mcL LAB HEMETOLOGY METHOD 04/12/2024 10:32 AM [facility] Neutrophils Relative 70.8 % LAB HEMETOLOGY METHOD 04/12/2024 10:32 AM [facility] Lymphocytes Relative 14.7 % LAB HEMETOLOGY METHOD 04/12/2024 10:32 AM [facility] Monocytes Relative 13.7 % LAB HEMETOLOGY METHOD 04/12/2024 10:32 AM [facility] Eosinophils Relative 0.0 % LAB HEMETOLOGY METHOD 04/12/2024 10:32 AM [facility] Basophils Relative 0.3 % LAB HEMETOLOGY METHOD 04/12/2024 10:32 AM [facility] Immature Granulocytes Relative 0.5 % LAB HEMETOLOGY METHOD 04/12/2024 10:32 AM [facility] Neutrophils Absolute 4.32 1.50 - 7.00 K/mcL LAB HEMETOLOGY METHOD 04/12/2024 10:32 AM [facility] Lymphocytes Absolute 0.90(L) 1.00 - 5.00 K/mcL LAB HEMETOLOGY METHOD 04/12/2024 10:32 AM [facility] Monocytes Absolute 0.84 0.20 - 1.00 K/mcL LAB HEMETOLOGY METHOD 04/12/2024 10:32 AM [facility] Eosinophils Absolute 0.00 0.00 - 0.50 K/mcL LAB HEMETOLOGY METHOD 04/12/2024 10:32 AM [facility] Basophils Absolute 0.02 0.00 - 0.20 K/mcL LAB HEMETOLOGY METHOD 04/12/2024 10:32 AM [facility] Immature Granulocytes Absolute 0.03 0.00 - 0.03 K/mcL LAB HEMETOLOGY METHOD 04/12/2024 10:32 AM [facility] Blood Venous blood specimen / Unknown Venipuncture / Unknown 04/12/2024 7:35 AM EST 04/12/2024 10:02 AM EST Ever Reyna MD LAB BLOOD ORDERABLES Final Res ult [facility] [address] [place] [address], [place] [phone] * (ABNORMAL) Magnesium (04/12/2024 7:35 AM EST) Magnesium 1.7(L) 1.9 - 2.6 mg/dL LAB CHEMISTRY METHOD 04/12/2024 10:55 AM EST [facility] Blood Venous blood specimen / Unknown Venipuncture / Unknown 04/12/2024 7:35 AM EST 04/12/2024 10:02 AM EST Ever Reyna MD LAB BLOOD ORDERABLES Final Res ult Performing Organization Address [facility]/ZIP Co de Phone Number [facility] [address] [place] [address], [place] [phone] * (ABNORMAL) Comprehensive metabolic panel (04/12/2024 7:35 AM EST) Sodium 130(L) 133 - 145 mmol/L LAB CHEMISTRY METHOD 04/12/2024 10:56 AM [facility] Potassium 4.5 3.5 - 5.5 mmol/L LAB CHEMISTRY METHOD 04/12/2024 10:56 AM [facility] Chloride 97 96 - 110 mmol/L LAB CHEMISTRY METHOD 04/12/2024 10:56 AM [facility] CO2 25 21 - 32 mmol/L LAB CHEMISTRY METHOD 04/12/2024 10:56 AM [facility] Anion Gap 8 3 - 11 LAB CHEMISTRY METHOD 04/12/2024 10:56 AM [facility] Glucose 77 70 - 100 mg/dL LAB CHEMISTRY METHOD 04/12/2024 10:56 AM [facility] BUN 16 5 - 25 mg/dL LAB CHEMISTRY METHOD 04/12/2024 10:56 AM [facility] Creatinine 0.68(L) 0.70 - 1.30 mg/dL LAB CHEMISTRY METHOD 04/12/2024 10:56 AM [facility] eGFR 98 >=60 mL/min/1. 73m2 LAB CHEMISTRY METHOD 04/12/2024 10:56 AM [facility] Comment:Calculation based on the??Chronic Kidney Disease Epidemiology Collaboration (CKD-EPI) equation refit??without adjustment for race. BUN/Creatinine Ratio 23.5 LAB CHEMISTRY METHOD 04/12/2024 10:56 AM [facility] Calcium 9.9 8.5 - 10.5 mg/dL LAB CHEMISTRY METHOD 04/12/2024 10:56 AM [facility] AST (SGOT) 38 10 - 42 unit/L LAB CHEMISTRY METHOD 04/12/2024 10:56 AM [facility] ALT (SGPT) 24 10 - 60 unit/L LAB CHEMISTRY METHOD 04/12/2024 10:56 AM [facility] Alkaline Phosphatase 117 42 - 121 unit/L LAB CHEMISTRY METHOD 04/12/2024 10:56 AM [facility] Total Protein 6.7 6.0 - 8.0 g/dL LAB CHEMISTRY METHOD 04/12/2024 10:56 AM [facility] Albumin 3.2 3.2 - 5.0 g/dL LAB CHEMISTRY METHOD 04/12/2024 10:56 AM [facility] Total Bilirubin 0.3 0.0 - 1.4 mg/dL LAB CHEMISTRY METHOD 04/12/2024 10:56 AM [facility] Blood Venous blood specimen / Unknown Venipuncture / Unknown 04/12/2024 7:35 AM EST 04/12/2024 10:02 AM EST us Ever Reyna MD LAB BLOOD ORDERABLES Final Res ult [facility] [address] [place] [address], documented in this encounter Visit Diagnoses Diagnosis Encounter for other general examination documented in this encounter Care Teams Geological Technical Officer Relationship Specialty Start Date End Date Alan Chanel MD [address] [place] [address] Dr [address] [place], [place] PCP - General Internal Medicine 03/12/24 documented as of this encounter
--- OUTSIDE RECORDS SUMMARY | 2024-07-09 10:01 | XMS_ITS | Encounter Summary ---
Author Organization [facility] Address [address] [place] [address] Care Team Providers Care Plant Cytologist Name Role Phone Alan Chanel MD Primary Care Provider Encounter Details Date Type Department Care Team (Late st Contact Info) Description 05/18/2024 Lab Requisition [facility] - Main Lab [address] [place] [address] Kenny Malave MD 38 [facility] [address] [place], [address] Essential (primary) hypertension Social History Tobacco [...] LAB CHEMISTRY METHOD 05/19/2024 8:54 AM EST [facility] Potassium 3.4(L) 3.5 - 5.5 mmol/L LAB CHEMISTRY METHOD 05/19/2024 8:54 AM EST [facility] Chloride 101 96 - 110 mmol/L LAB CHEMISTRY METHOD 05/19/2024 8:54 AM [facility] CO2 29 21 - 32 mmol/L LAB CHEMISTRY METHOD 05/19/2024 8:54 AM [facility] LAB Anion Gap 4 3 - 11 LAB CHEMISTRY METHOD 05/19/2024 8:54 AM [facility] Glucose 87 70 - 100 mg/dL LAB CHEMISTRY METHOD 05/19/2024 8:54 AM [facility] BUN 15 5 - 25 mg/dL LAB CHEMISTRY METHOD 05/19/2024 8:54 AM [facility] Creatinine 0.60 0.50 - 1.10 mg/dL LAB CHEMISTRY METHOD 05/19/2024 8:54 AM [facility] eGFR 94 >=60 mL/min/1. 73m2 LAB CHEMISTRY METHOD 05/19/2024 8:54 AM [facility] LAB Comment:Calculation based on the??Chronic Kidney Disease Epidemiology Collaboration (CKD-EPI) equation refit??without adjustment for race. BUN/Creatinine Ratio 25.0 LAB CHEMISTRY METHOD 05/19/2024 8:54 AM [facility] Calcium 9.1 8.5 - 10.5 mg/dL LAB CHEMISTRY METHOD 05/19/2024 8:54 AM [facility] Blood Venous blood specimen / Unknown Venipuncture / Unknown 05/19/2024 6:53 AM EST 05/19/2024 7:53 AM EST us Kenny Malave MD LAB BLOOD ORDERABLES Final Resul t [facility] [address] [place] [address], * (ABNORMAL) Complete blood count (05/19/2024 6:53 AM EST) WBC 5.0 4.8 - 10.8 K/mcL LAB HEMETOLOGY METHOD 05/19/2024 8:33 AM [facility] RBC 4.00 3.80 - 4.80 M/mcL LAB HEMETOLOGY METHOD 05/19/2024 8:33 AM [facility] Hemoglobin 11.0(L) 11.5 - 16.0 g/dL LAB HEMETOLOGY METHOD 05/19/2024 8:33 AM [facility] Hematocrit 33.7(L) 35.0 - 47.0 % LAB HEMETOLOGY METHOD 05/19/2024 8:33 AM [facility] MCV 85.3 79.0 - 98.0 FL LAB HEMETOLOGY METHOD 05/19/2024 8:33 AM [facility] MCH 27.8 27.0 - 32.0 pcg LAB HEMETOLOGY METHOD 05/19/2024 8:33 AM [facility] MCHC 32.6 32.0 - 37.0 g/dL LAB HEMETOLOGY METHOD 05/19/2024 8:33 AM [facility] RDW 15.0 11.0 - 15.0 % LAB HEMETOLOGY METHOD 05/19/2024 8:33 AM [facility] Platelets 527(H) 130 - 400 K/mcL LAB HEMETOLOGY METHOD 05/19/2024 8:33 AM [facility] MPV 8.5 7.0 - 11.0 FL LAB HEMETOLOGY METHOD 05/19/2024 8:33 AM [facility] NRBC 0.0 <1.0 % LAB HEMETOLOGY METHOD 05/19/2024 8:33 AM [facility] NRBC Absolute 0.00 <0.10 K/mcL LAB HEMETOLOGY METHOD 05/19/2024 8:33 AM [facility] Blood Venous blood specimen / Unknown Venipuncture / Unknown 05/19/2024 6:53 AM EST 05/19/2024 7:53 AM EST us Kenny Malave MD LAB BLOOD ORDERABLES Final Resul t [facility] [address] [place] [address], [place] [phone] documented in this encounter Visit Diagnoses Diagnosis Essential (primary) hypertension Unspecified essential hypertension documented in this encounter Care Teams Plant Cytologist Relationship Specialty Start Date End Date Alan Chanel MD [address] [place] [address] Dr [address] [place], [place] PCP - General Internal Medicine 03/12/24 documented as of this encounter
--- OUTSIDE RECORDS SUMMARY | 2024-07-09 10:01 | XMS_ITS | Encounter Summary ---
Author Organization [facility] Address [address] [place] [address] Care Team Providers Care Plaster Patternmaker Name Role Phone Alan Chanel MD Primary Care Provider [phone] Encounter Details Date Type Department Care Team (Late st Contact Info) Description 06/08/2024 Lab Requisition [facility] - Main Lab [address] [place] [address] Kenny Malave MD 38 [facility] [address] [place], [address] Chronic obstructive pulmonary disease, unspecified (CMS/HCC) [...] LAB CHEMISTRY METHOD 06/08/2024 11:51 AM EST [facility] Potassium 5.0 3.5 - 5.5 mmol/L LAB CHEMISTRY METHOD 06/08/2024 11:51 AM [facility] LAB Comment:Results verified by repeat testing Chloride 102 96 - 110 mmol/L LAB CHEMISTRY METHOD 06/08/2024 11:51 AM [facility] CO2 26 21 - 32 mmol/L LAB CHEMISTRY METHOD 06/08/2024 11:51 AM [facility] Anion Gap 8 3 - 11 LAB CHEMISTRY METHOD 06/08/2024 11:51 AM [facility] Glucose 78 70 - 100 mg/dL LAB CHEMISTRY METHOD 06/08/2024 11:51 AM [facility] BUN 17 5 - 25 mg/dL LAB CHEMISTRY METHOD 06/08/2024 11:51 AM [facility] Creatinine 0.53 0.50 - 1.10 mg/dL LAB CHEMISTRY METHOD 06/08/2024 11:51 AM [facility] eGFR 97 >=60 mL/min/1. 73m2 LAB CHEMISTRY METHOD 06/08/2024 11:51 AM [facility] Comment:Calculation based on the??Chronic Kidney Disease Epidemiology Collaboration (CKD-EPI) equation refit??without adjustment for race. BUN/Creatinine Ratio 32.1 LAB CHEMISTRY METHOD 06/08/2024 11:51 AM [facility] Calcium 9.6 8.5 - 10.5 mg/dL LAB CHEMISTRY METHOD 06/08/2024 11:51 AM [facility] Blood Venous blood specimen / Unknown Venipuncture / Unknown 06/08/2024 7:16 AM EST 06/08/2024 9:26 AM EST us Kenny Malave MD LAB BLOOD ORDERABLES Final Resul t [facility] [address] [place] [address], [place] [phone] * (ABNORMAL) Complete blood count (06/08/2024 7:16 AM EST) WBC 5.0 4.8 - 10.8 K/mcL LAB HEMETOLOGY METHOD 06/08/2024 10:15 AM [facility] RBC 3.80 3.80 - 4.80 M/mcL LAB HEMETOLOGY METHOD 06/08/2024 10:15 AM [facility] Hemoglobin 10.6(L) 11.5 - 16.0 g/dL LAB HEMETOLOGY METHOD 06/08/2024 10:15 AM [facility] Hematocrit 33.0(L) 35.0 - 47.0 % LAB HEMETOLOGY METHOD 06/08/2024 10:15 AM [facility] MCV 86.4 79.0 - 98.0 FL LAB HEMETOLOGY METHOD 06/08/2024 10:15 AM [facility] MCH 27.7 27.0 - 32.0 pcg LAB HEMETOLOGY METHOD 06/08/2024 10:15 AM [facility] MCHC 32.1 32.0 - 37.0 g/dL LAB HEMETOLOGY METHOD 06/08/2024 10:15 AM [facility] RDW 17.9(H) 11.0 - 15.0 % LAB HEMETOLOGY METHOD 06/08/2024 10:15 AM [facility] Platelets 516(H) 130 - 400 K/mcL LAB HEMETOLOGY METHOD 06/08/2024 10:15 AM [facility] MPV 8.5 7.0 - 11.0 FL LAB HEMETOLOGY METHOD 06/08/2024 10:15 AM [facility] NRBC 0.0 <1.0 % LAB HEMETOLOGY METHOD 06/08/2024 10:15 AM [facility] NRBC Absolute 0.00 <0.10 K/mcL LAB HEMETOLOGY METHOD 06/08/2024 10:15 AM [facility] Blood Venous blood specimen / Unknown Venipuncture / Unknown 06/08/2024 7:16 AM EST 06/08/2024 9:26 AM EST us Kenny Malave MD LAB BLOOD ORDERABLES Final Resul t [facility] [address] [place] [address], documented in this encounter Visit Diagnoses Diagnosis Chronic obstructive pulmonary disease, unspecified (CMS/HCC) documented in this encounter Care Teams Plaster Patternmaker Relationship Specialty Start Date End Date Alan Chanel MD [address] [place] [address] Dr [address] [place] PCP - General Internal Medicine 03/12/24 documented as of this encounter
--- OUTSIDE RECORDS SUMMARY | 2024-07-09 10:01 | XMS_ITS | Encounter Summary ---
Author Organization [facility] Address [address] [place] [address] Care Team Providers Care Photographic Supervisor Name Role Phone Alan Chanel MD Primary Care Provider [phone] Encounter Details Date Type Department Care Team (Late st Contact Info) Description 05/11/2024 Lab Requisition [facility] - Main Lab [address] [place] [address] Kenny Malave MD 38 [facility] [address] [place], [address] Essential (primary) hypertension Social History Tobacco [...] LAB CHEMISTRY METHOD 05/12/2024 9:30 AM EST [facility] Potassium 4.0 3.5 - 5.5 mmol/L LAB CHEMISTRY METHOD 05/12/2024 9:30 AM EST [facility] Chloride 101 96 - 110 mmol/L LAB CHEMISTRY METHOD 05/12/2024 9:30 AM [facility] CO2 26 21 - 32 mmol/L LAB CHEMISTRY METHOD 05/12/2024 9:30 AM [facility] LAB Anion Gap 8 3 - 11 LAB CHEMISTRY METHOD 05/12/2024 9:30 AM [facility] LAB Glucose 84 70 - 100 mg/dL LAB CHEMISTRY METHOD 05/12/2024 9:30 AM [facility] BUN 14 5 - 25 mg/dL LAB CHEMISTRY METHOD 05/12/2024 9:30 AM [facility] Creatinine 0.56 0.50 - 1.10 mg/dL LAB CHEMISTRY METHOD 05/12/2024 9:30 AM [facility] LAB eGFR 96 >=60 mL/min/1. 73m2 LAB CHEMISTRY METHOD 05/12/2024 9:30 AM [facility] Comment:Calculation based on the??Chronic Kidney Disease Epidemiology Collaboration (CKD-EPI) equation refit??without adjustment for race. BUN/Creatinine Ratio 25.0 LAB CHEMISTRY METHOD 05/12/2024 9:30 AM [facility] Calcium 8.5 8.5 - 10.5 mg/dL LAB CHEMISTRY METHOD 05/12/2024 9:30 AM [facility] Blood Venous blood specimen / Unknown Venipuncture / Unknown 05/12/2024 5:47 AM EST 05/12/2024 8:50 AM EST us Kenny Malave MD LAB BLOOD ORDERABLES Final Resul t [facility] [address] [place] [address], * (ABNORMAL) Complete blood count (05/12/2024 5:47 AM EST) WBC 3.6(L) 4.8 - 10.8 K/mcL LAB HEMETOLOGY METHOD 05/12/2024 9:09 AM [facility] RBC 3.70(L) 3.80 - 4.80 M/mcL LAB HEMETOLOGY METHOD 05/12/2024 9:09 AM [facility] Hemoglobin 10.4(L) 11.5 - 16.0 g/dL LAB HEMETOLOGY METHOD 05/12/2024 9:09 AM [facility] LAB Hematocrit 30.8(L) 35.0 - 47.0 % LAB HEMETOLOGY METHOD 05/12/2024 9:09 AM [facility] LAB MCV 84.2 79.0 - 98.0 FL LAB HEMETOLOGY METHOD 05/12/2024 9:09 AM [facility] MCH 28.4 27.0 - 32.0 pcg LAB HEMETOLOGY METHOD 05/12/2024 9:09 AM [facility] MCHC 33.8 32.0 - 37.0 g/dL LAB HEMETOLOGY METHOD 05/12/2024 9:09 AM [facility] LAB RDW 13.5 11.0 - 15.0 % LAB HEMETOLOGY METHOD 05/12/2024 9:09 AM [facility] Platelets 543(H) 130 - 400 K/mcL LAB HEMETOLOGY METHOD 05/12/2024 9:09 AM [facility] MPV 8.3 7.0 - 11.0 FL LAB HEMETOLOGY METHOD 05/12/2024 9:09 AM [facility] NRBC 0.0 <1.0 % LAB HEMETOLOGY METHOD 05/12/2024 9:09 AM [facility] NRBC Absolute 0.00 <0.10 K/mcL LAB HEMETOLOGY METHOD 05/12/2024 9:09 AM [facility] Blood Venous blood specimen / Unknown Venipuncture / Unknown 05/12/2024 5:47 AM EST 05/12/2024 8:50 AM EST us Kenny Malave MD LAB BLOOD ORDERABLES Final Resul t [facility] ([facility]) [facility] [address] [place] [address], [place] [phone] documented in this encounter Visit Diagnoses Diagnosis Essential (primary) hypertension Unspecified essential hypertension documented in this encounter Care Teams Photographic Supervisor Relationship Specialty Start Date End Date Alan Chanel MD [address] [place] [address] Dr [address] [place], [place] PCP - General Internal Medicine 03/12/24 documented as of this encounter
--- OUTSIDE RECORDS SUMMARY | 2024-07-09 10:01 | XMS_ITS | Encounter Summary ---
Author Organization [facility] Address [address] [place] [address] Care Team Providers Care Machine Shop Apprentice Name Role Phone Alan Chanel MD Primary Care Provider [phone] Encounter Details Date Type Department Care Team (Late st Contact Info) Description 05/28/2024 Lab Requisition [facility] - Main Lab [address] [place] [address] Kenny Malave MD 38 [facility] [address] [place], [address] Polyneuropathy, unspecified; Unspecified protein-calorie malnutrition (CMS/HCC); [...] LAB CHEMISTRY METHOD 05/28/2024 9:40 AM EST [facility] Potassium 3.3(L) 3.5 - 5.5 mmol/L LAB CHEMISTRY METHOD 05/28/2024 9:40 AM [facility] Chloride 103 96 - 110 mmol/L LAB CHEMISTRY METHOD 05/28/2024 9:40 AM [facility] CO2 27 21 - 32 mmol/L LAB CHEMISTRY METHOD 05/28/2024 9:40 AM [facility] Anion Gap 5 3 - 11 LAB CHEMISTRY METHOD 05/28/2024 9:40 AM [facility] Glucose 84 70 - 100 mg/dL LAB CHEMISTRY METHOD 05/28/2024 9:40 AM [facility] BUN 13 5 - 25 mg/dL LAB CHEMISTRY METHOD 05/28/2024 9:40 AM [facility] Creatinine 0.56 0.50 - 1.10 mg/dL LAB CHEMISTRY METHOD 05/28/2024 9:40 AM [facility] eGFR 96 >=60 mL/min/1. 73m2 LAB CHEMISTRY METHOD 05/28/2024 9:40 AM [facility] Comment:Calculation based on the??Chronic Kidney Disease Epidemiology Collaboration (CKD-EPI) equation refit??without adjustment for race. BUN/Creatinine Ratio 23.2 LAB CHEMISTRY METHOD 05/28/2024 9:40 AM [facility] Calcium 8.3(L) 8.5 - 10.5 mg/dL LAB CHEMISTRY METHOD 05/28/2024 9:40 AM [facility] Blood Venous blood specimen / Unknown Venipuncture / Unknown 05/28/2024 6:03 AM EST 05/28/2024 8:39 AM EST us Kenny Malave MD LAB BLOOD ORDERABLES Final Resul t [facility] [address] [place] [address], documented in this encounter Visit Diagnoses Diagnosis Polyneuropathy, unspecified Unspecified protein-calorie malnutrition (CMS/HCC) Unspecified protein-calorie malnutrition Chronic obstructive pulmonary disease, unspecified (CMS/HCC) documented in this encounter Care Teams Machine Shop Apprentice Relationship Specialty Start Date End Date Alan Chanel MD [address] [place] [address] Dr [address] [place] PCP - General Internal Medicine 03/12/24 documented as of this encounter
--- OUTSIDE RECORDS SUMMARY | 2024-07-09 10:01 | XMS_ITS | Encounter Summary ---
Author Organization [facility] Address [address] [place] [address] Care Team Providers Care Life Manager Name Role Phone Alan Chanel MD Primary Care Provider [phone] Encounter Details Date Type Department Care Team (Late st Contact Info) Description 06/04/2024 Lab Requisition [facility] - Main Lab [address] [place] [address] Kenny Malave MD 38 [facility] [address] [place], [address] Other stripper soft plastic (current) drug therapy Social History Tobacco Use [...] PANEL Routine 06/04/2024 5:36 AM EST Other jail (current) drug therapy documented in this encounter Results * (ABNORMAL) Basic metabolic panel (06/04/2024 5:36 AM EST) Sodium 138 133 - 145 mmol/L LAB CHEMISTRY METHOD 06/04/2024 11:25 AM EST [facility] Potassium 3.2(L) 3.5 - 5.5 mmol/L LAB CHEMISTRY METHOD 06/04/2024 11:25 AM EST [facility] Chloride 102 96 - 110 mmol/L LAB CHEMISTRY METHOD 06/04/2024 11:25 AM EST [facility] CO2 28 21 - 32 mmol/L LAB CHEMISTRY METHOD 06/04/2024 11:25 AM EST [facility] Anion Gap 8 3 - 11 LAB CHEMISTRY METHOD 06/04/2024 11:25 AM [facility] Glucose 71 70 - 100 mg/dL LAB CHEMISTRY METHOD 06/04/2024 11:25 AM EST [facility] BUN 18 5 - 25 mg/dL LAB CHEMISTRY METHOD 06/04/2024 11:25 AM [facility] Creatinine 0.57 0.50 - 1.10 mg/dL LAB CHEMISTRY METHOD 06/04/2024 11:25 AM [facility] LAB eGFR 95 >=60 mL/min/1. 73m2 LAB CHEMISTRY METHOD 06/04/2024 11:25 AM [facility] Comment:Calculation based on the??Chronic Kidney Disease Epidemiology Collaboration (CKD-EPI) equation refit??without adjustment for race. BUN/Creatinine Ratio 31.6 LAB CHEMISTRY METHOD 06/04/2024 11:25 AM [facility] Calcium 8.8 8.5 - 10.5 mg/dL LAB CHEMISTRY METHOD 06/04/2024 11:25 AM [facility] Blood Venous blood specimen / Unknown Venipuncture / Unknown 06/04/2024 5:36 AM EST 06/04/2024 9:58 AM EST us Kenny Malave MD LAB BLOOD ORDERABLES Final Resul t [facility] [address] [place] [address], documented in this encounter Visit Diagnoses Diagnosis Other stripper soft plastic (current) drug therapy documented in this encounter Care Teams Life Manager Relationship Specialty Start Date End Date Alan Chanel MD [address] [place] [address] [address] [place] PCP - General Internal Medicine 03/12/24 documented as of this encounter
--- OUTSIDE RECORDS SUMMARY | 2024-07-09 10:01 | XMS_ITS | Encounter Summary ---
Author Organization [facility] Address [address] [place] [address] Care Team Providers Care Emergency Medical Service Manager Name Role Phone Alan Chanel MD Primary Care Provider [phone] Encounter Details Date Type Department Care Team (Late st Contact Info) Description 04/13/2024 Lab Requisition [facility] - Main Lab [address] [facility] [employer] [place] [address] Ever Reyna MD [address] [place] [id number] Encounter for other general examination Social History [...] LAB CHEMISTRY METHOD 04/13/2024 1:06 PM EST [facility] Potassium 4.0 3.5 - 5.5 mmol/L LAB CHEMISTRY METHOD 04/13/2024 1:06 PM EST [facility] Chloride 92(L) 96 - 110 mmol/L LAB CHEMISTRY METHOD 04/13/2024 1:06 PM EST [facility] CO2 26 21 - 32 mmol/L LAB CHEMISTRY METHOD 04/13/2024 1:06 PM [facility] Anion Gap 10 3 - 11 LAB CHEMISTRY METHOD 04/13/2024 1:06 PM [facility] Glucose 59(L) 70 - 100 mg/dL LAB CHEMISTRY METHOD 04/13/2024 1:06 PM [facility] BUN 17 5 - 25 mg/dL LAB CHEMISTRY METHOD 04/13/2024 1:06 PM [facility] Creatinine 0.82 0.70 - 1.30 mg/dL LAB CHEMISTRY METHOD 04/13/2024 1:06 PM [facility] eGFR 92 >=60 mL/min/1. 73m2 LAB CHEMISTRY METHOD 04/13/2024 1:06 PM [facility] Comment:Calculation based on the??Chronic Kidney Disease Epidemiology Collaboration (CKD-EPI) equation refit??without adjustment for race. BUN/Creatinine Ratio 20.7 LAB CHEMISTRY METHOD 04/13/2024 1:06 PM [facility] Calcium 9.9 8.5 - 10.5 mg/dL LAB CHEMISTRY METHOD 04/13/2024 1:06 PM [facility] Blood Venous blood specimen / Unknown Venipuncture / Unknown 04/13/2024 5:20 AM EST 04/13/2024 11:02 AM EST us Ever Reyna MD LAB BLOOD ORDERABLES Final Res ult [facility] [address] [place] [address], documented in this encounter Visit Diagnoses Diagnosis Encounter for other general examination documented in this encounter Care Teams Emergency Medical Service Manager Relationship Specialty Start Date End Date Alan Chanel MD [address] [place] [address] [address] [place] PCP - General Internal Medicine 03/12/24 documented as of this encounter
--- OUTSIDE RECORDS SUMMARY | 2024-07-09 10:02 | XMS_ITS | Continuity of Care Document ---
Author Organization [facility], [facility] Address [address] [place] [address] Care Team Providers Care Squad Boss Name Role Phone DANIEL PETER - 2ND FLOOR OTHER LAUREN ROSAS Primary Care Provider [phone] Assessment No assessment recorded. Plan of Treatment [...] Recorded Time Adult failure to thrive syndrome [id number] Active 2023 Kenny Malave MD [address] [facility], [facility] [address], [address], [facility] 13:42:50 Syndrome of inappropria te vasopressin secretion 64519412 Active 2023 Kenny Malave MD [address] [place] [address], [address], [place], [address], [facility] 13:42:57 Unsteady when walking 12053800 Active 2023 Kenny Malave MD [address] [place] [address], [address], [place], [address], [facility] 13:43:03 Essential hypertensio n 70293477 Active 2023 Kenny Malave MD [address] [place] [address], [address], [place], [address], [facility] 13:43:09 Anemia 447758137 Active 2023 Kenny Malave MD [address], [address], [place], [address], [facility] 4 13:43:14 Chronic obstructive pulmonary disease 66393850 Active 2023 Kenny Malave MD [address], [address], [place], [address], [facility] 4 13:43:19 Osteoporosi s 99066959 Active 2023 Kenny Malave MD [address], [address], [place], [address], [facility] 4 13:43:27 Neuropathy 178680938 Active 2023 Kenny Malave MD [address] [facility], [address], [place], [address], [facility] 4 13:43:33 Mood disorder 10216284 Active 2023 Kenny Malave MD [address] [facility], [address], [place], [address], [facility] 4 13:43:41 Closed fracture of left patella [id number] 9105 Active 2023 Kenny Malave MD [address] [facility], [address], [place], [address], [facility] 4 13:44:22 Hearing loss 56351004 Active 2023 Kenny Malave MD [address] [facility], [address], [place], [address], [facility] 4 13:56:41 Problem Notes None recorded. Medical Equipment None Reported. Allergies No known drug allergies Medications Not known to be on any medication Vitals Date Recorded Heart rate Respiratory rate Body temperature Oxygen saturation Oxygen saturation in Arterial blood by Pulse oximetry Systolic blood pressure Diastolic blood pressure Provider Name and Address Organization Details Last Updated DateTime 5 67 /min 18 /min 98 [degF] 96 % 96 % 134 mm[Hg] 66 mm[Hg] MAYDA WHIPPLE NP [address] [facility], [address], [place], [address], [facility] 5 09:22:53 Social History Question Answer Notes LastModified by Organizat ion Details LastModified Time Tobacco Smoking Status Former Smoker 2 ppd smoker quit early 2023 Kenny Malave MD [address] [facility], [address], [place], [address], [facility] 04/28/2024 13:58:17 Do You Have An Advance Directive? No Information not available 04/28/2024 What Is Your Level Of Alcohol Consumption? None Information not available 04/28/2024 What Is Your Code Status? DNI [email or web address] Information not available 04/30/2024 How Much Tobacco [...] Recorded Time Tdap 6 completed Joann Blum [facility] 05/05/2024 16:34:17 pneumococcal polysaccharide PPV23 6 completed Joann Blum [facility] 05/05/2024 16:34:32 influenza, unspecified formulation 4 completed Joann Blum [facility] 05/05/2024 16:34:49 influenza, unspecified formulation 3 completed Joann Blum [facility] 05/05/2024 16:34:56 influenza, unspecified formulation 2 completed Joann Blum [facility] 05/05/2024 16:35:02 Past Encounters Encounter ID Performer Location Encounter Start Date Encounter Closed Date Diagnosis/Indication Diagnosis SNOMED-CT Code Diagnosis ICD10 Code Diagnosis Note [id number] MAYDA WHIPPLE NP [address] [address] 05/20/2024 12:54:44 05/22/2024 14:28:37 Closed fracture of left patella [id number] 4085544 S82.015G prior fall with left knee fxcontACL brace in placePT OT eval and tx.NWB till cleared by ortho - seen yesterday, get consult note to reviewfoll ow ortho recs and update with concernstr amadol 50 mg q 8 prnmonitor pain controlfu with ortho [facility] as sched. Unsteady when walking 22 660552 R26.89 NWB LLE till cleared by orthoPT OT eval and treat for deconditio ningmonito r Adult fail ure to thrive syndrome 415536298 R62.7 see HPIshe was not able to be cared for in community with tibia fxmonitor need for increased servicesco ntinue supportive care at facilitydi etary to evalmonito r weights Syndrome o f inappropriate vasopressin secretion 34722433 E22.2 monitor Na and need to adjust fluid restrictio nCurrent Na level 134, repeat x 1 05/25no s/s of siadh Acute hypokalemia 367342 03 E87.6 improved with supplement current K level 3.4monitor lytes - repeat 05/25 Essential hypertension 04084767 I10 bp stablecont inue lisinopril 5 mg qdmonitor bp and need to titrate Anemia 583196953 D50.8 monitor cbcHgb. 11iron studies prn Chronic ob structive pulmonary disease 78720984 J41.1 carrying dx added to PMHmonitor respirator y statusadva ir inhaler 1 puff po bidalbuter ol for wheezes q 4 prn Osteoporosis 60620088 M8 1.0 hx ofcalcium Neuropathy 006246413 G62 .89 hx ofmonitor sx Mood disorder 79679905 F 34.89 with underlying anxietyati van 0.5 mg bidzoloft 50 mg qdSeen by Psych provider 05/11, no new recommenda tionsMonit or mood, behaviors. [id number] [facility] [address] 05/27/2024 14:06:34 05/28/2024 10:49:56 Closed fracture of left patella 2294674982 2687061 S82.015G prior fall with left knee fxcontACL brace in placePT OT eval and tx.Seen by Ortho last week, second request for office note to review.fol low ortho recs and update with concernstr amadol 50 mg q 8 prnmonitor pain controlfu with ortho [facility] as sched. Unsteady when walking 22 147000 R26.89 NWB LLE till cleared by orthoPT OT eval and treat for deconditio ningmonito r Adult fail ure to thrive syndrome 351922009 R62.7 see HPIshe was not able to be cared for in community with tibia fxmonitor need for increased servicesco ntinue supportive care at facilitydi etary to evalmonito r weights Syndrome o f inappropriate vasopressin secretion 04189534 E22.2 monitor Na and need to adjust fluid restrictio nCurrent Na level 134, repeat x 1 05/25 not done - check in amno s/s of siadh Acute hypokalemia 703310 03 E87.6 improved with supplement current K level 3.4monitor lytes - repeat 05/25 not done, check in am Essential hypertension 04691989 I10 bp stablecont inue lisinopril 5 mg qdmonitor bp and need to titrate Anemia 687952910 D50.8 monitor cbcHgb. 11iron studies prn Chronic ob structive pulmonary disease 50314262 J41.1 carrying dx added to PMHmonitor respirator y statusadva ir inhaler 1 puff po bidalbuter ol for wheezes q 4 prn Osteoporosis 05112262 M8 1.0 hx ofcalcium Neuropathy 748599244 G62 .89 hx ofmonitor sx Mood disorder 20388130 F 34.89 with underlying anxietyati van 0.5 mg bidzoloft 50 mg qdSeen by Psych provider 05/11, no new recommenda tionsMonit or mood, behaviors. Viral gastroenteritis 11 0908346 A08.4 N/V/GI upset x 2-3d.Leonides nue symptomati c treatmentR estEncoura ge fluids, clear liquids, advance as able.Hold laxativesP RN imodium and zofran available as well.BMP in am (not done on 05/25) [id number] MAYDA WHIPPLE NP [address] [address] 06/03/2024 15:04:46 06/05/2024 09:47:09 Viral gastroenteritis 566281372 A08.4 N/V/GI upset x 2-3d last weekNow resolved. Closed fra cture of left patella 8079489243 6242513 S82.015G prior fall with left knee fxcontACL brace in placePT OT eval and tx.Seen by Ortho 2 wks ago, still no note scanned into EMR. Will request again.Foll ow ortho recs and update with concernstr amadol 50 mg q 8 prnmonitor pain controlfu with ortho [facility] as sched. Unsteady when walking 22 796956 R26.89 NWB LLE till cleared by orthoPT OT eval and treat for deconditio ningmonito r Adult fail ure to thrive syndrome 408336306 R62.7 see HPIshe was not able to be cared for in community with tibia fxmonitor need for increased servicesco ntinue supportive care at facilitymo nitor weights, intake Syndrome o f inappropriate vasopressin secretion 74324630 E22.2 monitor Na and need to adjust fluid restrictio nMost recent level 135 on 05/28no s/s of siadhMonit or labs Acute hypokalemia 676077 03 E87.6 improved with supplement current K level 3.3not on obvious K depleting medsmonito r lytes - repeat in am Essential hypertension 85071221 I10 bp stablecont inue lisinopril 5 mg qdmonitor bp and need to titrate Anemia 378437362 D50.8 monitor cbcHgb. 11iron studies prn Chronic ob structive pulmonary disease 74300657 J41.1 carrying dx added to PMHmonitor respirator y statusadva ir inhaler 1 puff po bidalbuter ol for wheezes q 4 prn Osteoporosis 81015562 M8 1.0 hx ofcontinue calcium Neuropathy 727790909 G62 .89 hx ofmonitor sx Mood disorder 57389131 F 34.89 with underlying anxietyati van 0.5 mg bidzoloft 50 mg qdSeen by Psych provider 05/11, no new recommenda tionsMonit or mood, behaviors. [id number] Radha Hickey NP [facility] [address] 06/05/2024 08:46:02 06/08/2024 14:56:21 Viral gastroenteritis 515712017 A08.4 resolvingN /V/GI upset x 2-3d last week with likely potassium loss related to virus and vomitingNo w resolved. Closed fra cture of left patella 0826400957 2766806 S82.015G prior fall with left knee fxcontACL brace in placePT OT eval and tx.Seen by Ortho 2 wks ago, still no note scanned into EMR. Will request again.Foll ow ortho recs and update with concernstr amadol 50 mg q 8 prnmonitor pain controlfu with ortho [facility] as sched. Unsteady when walking 22 417997 R26.89 NWB LLE till cleared by orthoPT OT eval and treat for deconditio ningmonito r Adult fail ure to thrive syndrome 688681355 R62.7 see HPIshe was not able to be cared for in community with tibia fxmonitor need for increased servicesco ntinue supportive care at facilitymo nitor weights, intake Syndrome o f inappropriate vasopressin secretion 17566806 E22.2 monitor Na and need to adjust fluid restrictio nMost recent level 138 improving from last weekno s/s of siadhMonit or labs Acute hypokalemia 473162 03 E87.6 current K level 3.2 with recent loss for gi virus06/05 start potassium 40 meq x 2 dosesrepea t labs on 06/08 Chronic ob structive pulmonary disease 52320772 J41.1 carrying dx added to PMHmonitor respirator y statusadva ir inhaler 1 puff po bidalbuter ol for wheezes q 4 prn Mood disorder 44222494 F 34.89 with underlying anxietyati van 0.5 mg bidzoloft 50 mg qdSeen by Psych provider 05/11, no new recommenda tionsMonit or mood, behaviors. Essential hypertension 59239635 I10 bp stablecont inue lisinopril 5 mg qdmonitor bp and need to titrate [id number] Rad[facility] [address] 06/11/2024 11:27:16 06/12/2024 13:49:32 Acute hypokalemia 22406453 E87.6 labs improved on 2/3 with k supplement sp gi virus Viral gastroenteritis 11 4386491 A08.4 resolvedN/ V/GI upset x 2-3d last week with likely potassium loss related to virus and vomitingNo w resolved. Closed fra cture of left patella 9000117221 2937934 S82.015G prior fall with left knee fxcontACL brace in placePT OT eval and tx.Seen by Ortho 2 wks ago, still no note scanned into EMR. Will request again.Foll ow ortho recs and update with concernstr amadol 50 mg q 8 prnmonitor pain controlfu with ortho [facility] as sched. Unsteady when walking 22 619035 R26.89 NWB LLE till cleared by orthoPT OT eval and treat for deconditio ningmonito r Adult fail ure to thrive syndrome 484204518 R62.7 see HPIshe was not able to be cared for in community with tibia fxmonitor need for increased servicesco ntinue supportive care at facilitymo nitor weights, intake Syndrome o f inappropriate vasopressin secretion 91900754 E22.2 monitor Na and need to adjust fluid restrictio nno s/s of siadhMonit or labs as above Chronic ob structive pulmonary disease 03372022 J41.1 carrying dx added to PMHmonitor respirator y statusadva ir inhaler 1 puff po bidalbuter ol for wheezes q 4 prn Mood disorder 68808485 F 34.89 with underlying anxiety, stable hereativan 0.5 mg bidzoloft 50 mg qdSeen by Psych provider 05/11, no new recommenda tionsMonit or mood, behaviors. [id number] MAYDA WHIPPLE NP [facility] [address] [address] 06/17/2024 09:17:58 06/18/2024 13:31:49 Acute hypokalemia 24350838 E87.6 labs improved on 06/08 = 5Continue to monitor Viral gastroenteritis 11 5609394 A08.4 resolved Closed fra cture of left patella 4657780816 9289752 S82.015G prior fall with left knee fxcontACL brace in placePT OT eval and tx.Follow ortho recs and update with concernsNe xt appt. 2/25tramad ol 50 mg q 8 prnmonitor pain control Unsteady when walking 22 699260 R26.89 NWB LLE till cleared by orthoPT OT eval and treat for deconditio ningmonito r Adult fail ure to thrive syndrome 690752411 R62.7 see HPIshe was not able to be cared for in community with tibia fxmonitor need for increased services in prep. for dischargec ontinue supportive care at facilitymo nitor weights, intake Syndrome o f inappropriate vasopressin secretion 10692416 E22.2 monitor Na, currently 136Does not appear to be on a FR at this time.no s/s of siadhMonit or labs Chronic ob structive pulmonary disease 80211236 J41.1 monitor respirator y status - currently stablecont inue:advai r inhaler 1 puff po bidalbuter ol for wheezes q 4 prn Mood disorder 20784080 F 34.89 with underlying anxietyCon tinue:ativ an 0.5 mg bidzoloft 50 mg qdSeen by Psych provider 05/11, no new recommenda tionsMonit or mood, behaviors. Essential hypertension 95896481 I10 VSScontinu e lisinopril 5 mg qdmonitor bp and need to titrate Osteoporosis 93965831 M8 1.0 hx ofcontinue calcium Anemia 481436099 D50.8 monitor cbcHgb. 10.6iron studies prn Neuropathy 280899488 G62 .89 hx ofmonitor sx Health Concerns Section Related Observation LastModified by Organization Detai ls LastModified Time None Recorded Concern Status LastModified by Organization Details LastModified Time None Recorded Payers Encounter Date Sequence Insurance Name Policy Number Policy Rock Covered Member ID Rock Member ID Guarantor Name 06/17/2024 1 [place] [employer] Trevon Emilia Yeagerx [id number] Trevon Aguilar 06/17/2024 2 [place] [facility] Trevon Lauren [id number] Trevon Lauren Notes Date Note Type Note Provider Name and Address Organization Details Recorded Time 06/17/2024 text/html Trevon is seen t richie for an acute visit. She is a 73 yo lady, admitted to [facility] from the hospital for continued care and rehab.She presented with left knee pain and inability [...] x 3 months till cleared by ortho. She had follow up with Ortho, continues to wear LLE brace. Next appt. 06/30.Working with rehab, making some gains.Leg pain overall improved, denies pain this am.Viral gastroenteritis resolved.Issues with low K - repleted, last check 06/08 = 5VSS Case discussed with staff, no new issues or concerns. Upon exam, Trevon is up in her w/c, alert, NAD. In good spirits, just finished breakfast. Appetite good, denies any complaints today. PMH significant for siadh, htn,anemia,copd,osteo porosis,neuropathy,mo od disorder NOS MAYDA WHIPPLE, SHEBA [address] [facility], [address], [place], [address], [facility] - [facility] 06/17/2024 09:33:53 OBGyn Episode No OBEpisode recorded.
--- OUTSIDE RECORDS SUMMARY | 2024-07-09 10:02 | XMS_ITS | Encounter Summary ---
Author Organization [facility] Address [address] [place] [address] Care Team Providers Care [employer] T[employer] Name Role Phone Alan Chanel MD Primary Care Provider [phone] Encounter Details Date Type Department Care Team (Late st Contact Info) Description 05/04/2024 Lab Requisition [facility] - Main Lab [address] [place] [address] Kenny Malave MD [address] [facility] [address] [place], [address] Essential (primary) hypertension Social History Tobacco [...] LAB CHEMISTRY METHOD 05/05/2024 10:55 AM EST [facility] LAB Potassium 3.8 3.5 - 5.5 mmol/L LAB CHEMISTRY METHOD 05/05/2024 10:55 AM EST [facility] LAB Chloride 95(L) 96 - 110 mmol/L LAB CHEMISTRY METHOD 05/05/2024 10:55 AM [facility] CO2 29 21 - 32 mmol/L LAB CHEMISTRY METHOD 05/05/2024 10:55 AM [facility] LAB Anion Gap 7 3 - 11 LAB CHEMISTRY METHOD 05/05/2024 10:55 AM [facility] LAB Glucose 89 70 - 100 mg/dL LAB CHEMISTRY METHOD 05/05/2024 10:55 AM [facility] BUN 16 5 - 25 mg/dL LAB CHEMISTRY METHOD 05/05/2024 10:55 AM [facility] Creatinine 0.61 0.50 - 1.10 mg/dL LAB CHEMISTRY METHOD 05/05/2024 10:55 AM [facility] LAB eGFR 94 >=60 mL/min/1. 73m2 LAB CHEMISTRY METHOD 05/05/2024 10:55 AM [facility] LAB Comment:Calculation based on the??Chronic Kidney Disease Epidemiology Collaboration (CKD-EPI) equation refit??without adjustment for race. BUN/Creatinine Ratio 26.2 LAB CHEMISTRY METHOD 05/05/2024 10:55 AM [facility] Calcium 8.9 8.5 - 10.5 mg/dL LAB CHEMISTRY METHOD 05/05/2024 10:55 AM [facility] Blood Venous blood specimen / Unknown Venipuncture / Unknown 05/05/2024 6:32 AM EST 05/05/2024 10:13 AM EST us Kenny Malave MD LAB BLOOD ORDERABLES Final Resul t [facility] [address] [place] [address], * (ABNORMAL) Complete blood count (05/05/2024 6:32 AM EST) WBC 6.4 4.8 - 10.8 K/mcL LAB HEMETOLOGY METHOD 05/05/2024 10:59 AM [facility] RBC 3.90 3.80 - 4.80 M/[facility] LAB HEMETOLOGY METHOD 05/05/2024 10:59 AM [facility] Hemoglobin 10.7(L) 11.5 - 16.0 g/dL LAB HEMETOLOGY METHOD 05/05/2024 10:59 AM [facility] LAB Hematocrit 32.7(L) 35.0 - 47.0 % LAB HEMETOLOGY METHOD 05/05/2024 10:59 AM [facility] MCV 84.3 79.0 - 98.0 FL LAB HEMETOLOGY METHOD 05/05/2024 10:59 AM [facility] MCH 27.6 27.0 - 32.0 pcg LAB HEMETOLOGY METHOD 05/05/2024 10:59 AM [facility] MCHC 32.7 32.0 - 37.0 g/dL LAB HEMETOLOGY METHOD 05/05/2024 10:59 AM [facility] RDW 13.2 11.0 - 15.0 % LAB HEMETOLOGY METHOD 05/05/2024 10:59 AM [facility] Platelets 551(H) 130 - 400 K/[facility] LAB HEMETOLOGY METHOD 05/05/2024 10:59 AM [facility] MPV 8.5 7.0 - 11.0 FL LAB HEMETOLOGY METHOD 05/05/2024 10:59 AM [facility] NRBC 0.0 <1.0 % LAB HEMETOLOGY METHOD 05/05/2024 10:59 AM [facility] NRBC Absolute 0.00 <0.10 K/mcL LAB HEMETOLOGY METHOD 05/05/2024 10:59 AM [facility] Blood Venous blood specimen / Unknown Venipuncture / Unknown 05/05/2024 6:32 AM EST 05/05/2024 10:14 AM EST us Kenny Malave MD LAB BLOOD ORDERABLES Final [facility]ul t [facility] [address] [place] [address], documented in this encounter Visit Diagnoses Diagnosis Essential (primary) hypertension Unspecified essential hypertension documented in this encounter Care Teams [employer] T[employer] Relationship Specialty Start Date End Date Alan Chanel MD [address] [place] [address] Dr [address] [place], [place] PCP - General Internal Medicine 03/12/24 documented as of this encounter
--- OUTSIDE RECORDS SUMMARY | 2024-07-09 10:02 | XMS_ITS | Encounter Summary ---
Author Organization [facility] Address [address] [place] [address] Care Team Providers Care Supervisor Forming And Tempering Name Role Phone Alan Chanel MD Primary Care Provider Encounter Details Date Type Department Care Team (Late st Contact Info) Description 04/14/2024 Lab Requisition [facility] - Main Lab [address] [facility] [place] [address] Ever Reyna MD [address] [place] [id number] Encounter for other general examination Social History [...] LAB CHEMISTRY METHOD 04/14/2024 11:19 AM EST [facility] Blood Venous blood specimen / Unknown Venipuncture / Unknown 04/14/2024 4:35 AM EST 04/14/2024 9:55 AM EST us Adnan M Dahdul MD LAB BLOOD ORDERABLES Final Res ult [facility] [address] [place] [address], * (ABNORMAL) Basic metabolic panel (04/14/2024 4:35 AM EST) Sodium 128(L) 133 - 145 mmol/L LAB CHEMISTRY METHOD 04/14/2024 10:39 AM [facility] LAB Potassium 4.3 3.5 - 5.5 mmol/L LAB CHEMISTRY METHOD 04/14/2024 10:39 AM [facility] LAB Chloride 91(L) 96 - 110 mmol/L LAB CHEMISTRY METHOD 04/14/2024 10:39 AM [facility] LAB CO2 26 21 - 32 mmol/L LAB CHEMISTRY METHOD 04/14/2024 10:39 AM [facility] LAB Anion Gap 11 3 - 11 LAB CHEMISTRY METHOD 04/14/2024 10:39 AM [facility] LAB Glucose 71 70 - 100 mg/dL LAB CHEMISTRY METHOD 04/14/2024 10:39 AM [facility] LAB BUN 14 5 - 25 mg/dL LAB CHEMISTRY METHOD 04/14/2024 10:39 AM [facility] LAB Creatinine 0.60(L) 0.70 - 1.30 mg/dL LAB CHEMISTRY METHOD 04/14/2024 10:39 AM [facility] LAB eGFR 101 >=60 mL/min/1. 73m2 LAB CHEMISTRY METHOD 04/14/2024 10:39 AM [facility] LAB Comment:Calculation based on the??Chronic Kidney Disease Epidemiology Collaboration (CKD-EPI) equation refit??without adjustment for race. BUN/Creatinine Ratio 23.3 LAB CHEMISTRY METHOD 04/14/2024 10:39 AM [facility] LAB Calcium 9.4 8.5 - 10.5 mg/dL LAB CHEMISTRY METHOD 04/14/2024 10:39 AM EST [facility] Blood Venous blood specimen / Unknown Venipuncture / Unknown 04/14/2024 4:35 AM EST 04/14/2024 9:55 AM EST us Ever Reyna MD LAB BLOOD ORDERABLES Final Res ult [facility] [address] [place] [address], documented in this encounter Visit Diagnoses Diagnosis Encounter for other general examination documented in this encounter Care Teams Supervisor Forming And Tempering Relationship Specialty Start Date End Date Alan Chanel MD [address] [place] [address] [address] [place] PCP - General Internal Medicine 03/12/24 documented as of this encounter
--- OUTSIDE RECORDS SUMMARY | 2024-07-09 10:02 | XMS_ITS | Encounter Summary ---
Author Organization [facility] Address [address] [place] [address] Care Team Providers Care Application Systems Engineer Name Role Phone Alan Chanel MD Primary Care Provider [phone] Encounter Details Date Type Department Care Team (Late st Contact Info) Description 04/15/2024 Lab Requisition [facility] - Main Lab [address] [facility] [place] [address] Ever Reyna MD [address] [place] [address] Encounter for other general examination Social History [...] LAB CHEMISTRY METHOD 04/15/2024 11:04 AM EST [facility] Potassium 4.4 3.5 - 5.5 mmol/L LAB CHEMISTRY METHOD 04/15/2024 11:04 AM EST [facility] Chloride 96 96 - 110 mmol/L LAB CHEMISTRY METHOD 04/15/2024 11:04 AM EST [facility] CO2 25 21 - 32 mmol/L LAB CHEMISTRY METHOD 04/15/2024 11:04 AM [facility] Anion Gap 9 3 - 11 LAB CHEMISTRY METHOD 04/15/2024 11:04 AM [facility] Glucose 78 70 - 100 mg/dL LAB CHEMISTRY METHOD 04/15/2024 11:04 AM [facility] BUN 11 5 - 25 mg/dL LAB CHEMISTRY METHOD 04/15/2024 11:04 AM [facility] Creatinine 0.84 0.70 - 1.30 mg/dL LAB CHEMISTRY METHOD 04/15/2024 11:04 AM [facility] eGFR 92 >=60 mL/min/1. 73m2 LAB CHEMISTRY METHOD 04/15/2024 11:04 AM [facility] Comment:Calculation based on the??Chronic Kidney Disease Epidemiology Collaboration (CKD-EPI) equation refit??without adjustment for race. BUN/Creatinine Ratio 13.1 LAB CHEMISTRY METHOD 04/15/2024 11:04 AM [facility] Calcium 9.3 8.5 - 10.5 mg/dL LAB CHEMISTRY METHOD 04/15/2024 11:04 AM [facility] Blood Venous blood specimen / Unknown Venipuncture / Unknown 04/15/2024 6:06 AM EST 04/15/2024 9:57 AM EST us Ever Reyna MD LAB BLOOD ORDERABLES Final Res ult [facility] [address] [place] [address], documented in this encounter Visit Diagnoses Diagnosis Encounter for other general examination documented in this encounter Care Teams Application Systems Engineer Relationship Specialty Start Date End Date Alan Chanel MD [address] [place] [address] Reyn[address] [place] PCP - General Internal Medicine 03/12/24 documented as of this encounter
--- OUTSIDE RECORDS SUMMARY | 2024-07-09 10:02 | XMS_ITS | Encounter Summary ---
Author Organization [facility] Address [address] [place] [address] Care Team Providers Care Suit Attendant Name Role Phone Alan Chanel MD Primary Care Provider Encounter Details Date Type Department Care Team (Late st Contact Info) Description 04/17/2024 Lab Requisition [facility] - Main Lab [address] [place] [address] Ever Reyna MD [address] [place] [address] Encounter for other general examination Social History [...] AM EST) WBC 4.4(L) 4.8 - 10.8 K/[facility] LAB HEMETOLOGY METHOD 04/17/2024 11:22 AM EST [facility] RBC 4.20(L) 4.50 - 5.50 M/[facility] LAB HEMETOLOGY METHOD 04/17/2024 11:22 AM EST [facility] Hemoglobin 11.8(L) 13.5 - 17.5 g/dL LAB HEMETOLOGY METHOD 04/17/2024 11:22 AM [facility] Hematocrit 35.2(L) 42.0 - 54.0 % LAB HEMETOLOGY METHOD 04/17/2024 11:22 AM [facility] MCV 84.2 79.0 - 98.0 FL LAB HEMETOLOGY METHOD 04/17/2024 11:22 AM [facility] MCH 28.2 27.0 - 32.0 pcg LAB HEMETOLOGY METHOD 04/17/2024 11:22 AM [facility] MCHC 33.5 32.0 - 37.0 g/dL LAB HEMETOLOGY METHOD 04/17/2024 11:22 AM [facility] RDW 13.4 11.0 - 15.0 % LAB HEMETOLOGY METHOD 04/17/2024 11:22 AM [facility] Platelets 467(H) 130 - 400 K/mcL LAB HEMETOLOGY METHOD 04/17/2024 11:22 AM [facility] MPV 8.5 7.0 - 11.0 FL LAB HEMETOLOGY METHOD 04/17/2024 11:22 AM [facility] NRBC 0.0 <1.0 % LAB HEMETOLOGY METHOD 04/17/2024 11:22 AM [facility] NRBC Absolute 0.00 <0.10 K/mcL LAB HEMETOLOGY METHOD 04/17/2024 11:22 AM [facility] Blood Venous blood specimen / Unknown Venipuncture / Unknown 04/17/2024 6:06 AM EST 04/17/2024 10:27 AM EST us Ever Reyna MD LAB BLOOD ORDERABLES Final Res ult [facility] [address] [place] [address], [place] [phone] * (ABNORMAL) Comprehensive metabolic panel (04/17/2024 6:06 AM EST) Sodium 132(L) 133 - 145 mmol/L LAB CHEMISTRY METHOD 04/17/2024 12:19 PM [facility] Potassium 4.5 3.5 - 5.5 mmol/L LAB CHEMISTRY METHOD 04/17/2024 12:19 PM [facility] Chloride 96 96 - 110 mmol/L LAB CHEMISTRY METHOD 04/17/2024 12:19 PM [facility] CO2 27 21 - 32 mmol/L LAB CHEMISTRY METHOD 04/17/2024 12:19 PM [facility] Anion Gap 9 3 - 11 LAB CHEMISTRY METHOD 04/17/2024 12:19 PM [facility] Glucose 88 70 - 100 mg/dL LAB CHEMISTRY METHOD 04/17/2024 12:19 PM [facility] BUN 8 5 - 25 mg/dL LAB CHEMISTRY METHOD 04/17/2024 12:19 PM [facility] Creatinine 0.65(L) 0.70 - 1.30 mg/dL LAB CHEMISTRY METHOD 04/17/2024 12:19 PM [facility] eGFR 99 >=60 mL/min/1. 73m2 LAB CHEMISTRY METHOD 04/17/2024 12:19 PM [facility] Comment:Calculation based on the??Chronic Kidney Disease Epidemiology Collaboration (CKD-EPI) equation refit??without adjustment for race. BUN/Creatinine Ratio 12.3 LAB CHEMISTRY METHOD 04/17/2024 12:19 PM [facility] Calcium 9.1 8.5 - 10.5 mg/dL LAB CHEMISTRY METHOD 04/17/2024 12:19 PM [facility] AST (SGOT) 107(H) 10 - 42 unit/L LAB CHEMISTRY METHOD 04/17/2024 12:19 PM [facility] ALT (SGPT) 71(H) 10 - 60 unit/L LAB CHEMISTRY METHOD 04/17/2024 12:19 PM [facility] Alkaline Phosphatase 175(H) 42 - 121 unit/L LAB CHEMISTRY METHOD 04/17/2024 12:19 PM [facility] Total Protein 6.6 6.0 - 8.0 g/dL LAB CHEMISTRY METHOD 04/17/2024 12:19 PM [facility] Albumin 3.2 3.2 - 5.0 g/dL LAB CHEMISTRY METHOD 04/17/2024 12:19 PM [facility] Total Bilirubin 0.3 0.0 - 1.4 mg/dL LAB CHEMISTRY METHOD 04/17/2024 12:19 PM [facility] Blood Venous blood specimen / Unknown Venipuncture / Unknown 04/17/2024 6:06 AM EST 04/17/2024 10:27 AM EST us Ever Reyna MD LAB BLOOD ORDERABLES Final Res ult [facility] [address] [place] [address], documented in this encounter Visit Diagnoses Diagnosis Encounter for other general examination documented in this encounter Care Teams Suit Attendant Relationship Specialty Start Date End Date Alan Chanel MD [address] [place] [address] Dr Reyna Kruger [place] PCP - General Internal Medicine 03/12/24 documented as of this encounter
--- OUTSIDE RECORDS SUMMARY | 2024-07-09 10:02 | XMS_ITS | Encounter Summary ---
Author Organization [facility] Address [address] [place] [address] Care Team Providers Care Lidder Name Role Phone Alan Chanel MD Primary Care Provider [phone] Encounter Details Date Type Department Care Team (Late st Contact Info) Description 04/14/2024 Lab Requisition [facility] - Main Lab 299 [facility] [employer] [place] [address] Ever Reyna MD [address] [place] [address] Encounter for other general examination Social History [...] LAB CHEMISTRY METHOD 04/14/2024 10:46 AM EST [facility] Urine Urine specimen obtained by clean catch procedure / Unknown Non-blood Collection / Unknown 04/14/2024 3:12 AM EST 04/14/2024 9:00 AM EST us Ever Ryena MD LAB URINE ORDERABLES Final Res ult Performing Organization Address City/[facility]/ZIP Co de Phone Number [facility] [address] [place] [address], [place] [phone] * (ABNORMAL) Osmolality, urine (04/14/2024 3:12 AM EST) Osmolality, Urine 258(L) 300 - 1,300 mOsm/kg LAB CHEMISTRY METHOD 04/14/2024 11:28 AM EST [facility] LAB Urine Urine specimen obtained by clean catch procedure / Unknown Non-blood Collection / Unknown 04/14/2024 3:12 AM EST 04/14/2024 9:00 AM EST us Ever Reyna MD LAB URINE ORDERABLES Final Res ult Performing Organization Address [facility] Co de Phone Number [facility] [address] [place] [address], [place] [phone] documented in this encounter Visit Diagnoses Diagnosis Encounter for other general examination documented in this encounter Care Teams Lidder Relationship Specialty Start Date End Date Alan Chanel MD [address] [place] [address] Dr Orellana [address] [place] [address] [place] PCP - General Internal Medicine 03/12/24 documented as of this encounter
--- OUTSIDE RECORDS SUMMARY | 2024-07-09 10:02 | XMS_ITS | Encounter Summary ---
Author Organization [facility] Address [address] [place] [address] Care Team Providers Care Mail Distribution Clerk Name Role Phone Alan Chanel MD Primary Care Provider Encounter Details Date Type Department Care Team (Late st Contact Info) Description 04/22/2024 Lab Requisition [facility] - Main Lab 299 [facility] [email or web address] [address] Ever Reyna MD [address] [place] [address] Encounter for other general examination Social History [...] LAB CHEMISTRY METHOD 04/22/2024 11:23 AM EST [facility] Urine Urine specimen obtained by clean catch procedure / Unknown 04/22/2024 4:20 AM EST 04/22/2024 9:49 AM EST us Ever Reyna MD LAB URINE ORDERABLES Final Res ult Performing Organization Address City/[facility]/ZIP Co de Phone Number [facility] [address] [place] [address], [place] [phone] * Sodium, urine, random (04/22/2024 4:20 AM EST) Sodium, Ur 54 mmol/L LAB CHEMISTRY METHOD 04/22/2024 11:29 AM EST [facility] Urine Urine specimen obtained by clean catch procedure / Unknown 04/22/2024 4:20 AM EST 04/22/2024 9:49 AM EST Ever Reyna MD LAB URINE ORDERABLES Final Res ult Performing Organization Address [facility] Co de Phone Number [facility] [address] [place] [address], [place] [phone] documented in this encounter Visit Diagnoses Diagnosis Encounter for other general examination documented in this encounter Care Teams Mail Distribution Clerk Relationship Specialty Start Date End Date Alan Chanel MD [address] [place] [address] Dr Reyna Kruger [place] PCP - General Internal Medicine 03/12/24 documented as of this encounter
--- OUTSIDE RECORDS SUMMARY | 2024-07-09 10:02 | XMS_ITS | Encounter Summary ---
Author Organization [facility] Address [address] [place] [address] Care Team Providers Care Gear Machine Operator Name Role Phone Alan Chanel MD Primary Care Provider Encounter Details Date Type Department Care Team (Late st Contact Info) Description 04/28/2024 Lab Requisition [facility] - Main Lab [address] [place] [address] Kenny Malave MD [address] [facility] [address] [place], [address] Essential (primary) hypertension Social History Tobacco [...] LAB CHEMISTRY METHOD 04/28/2024 12:11 PM EST [facility] Potassium 3.7 3.5 - 5.5 mmol/L LAB CHEMISTRY METHOD 04/28/2024 12:11 PM EST [facility] Chloride 91(L) 96 - 110 mmol/L LAB CHEMISTRY METHOD 04/28/2024 12:11 PM [facility] CO2 25 21 - 32 mmol/L LAB CHEMISTRY METHOD 04/28/2024 12:11 PM [facility] Anion Gap 11 3 - 11 LAB CHEMISTRY METHOD 04/28/2024 12:11 PM [facility] Glucose 81 70 - 100 mg/dL LAB CHEMISTRY METHOD 04/28/2024 12:11 PM [facility] BUN 16 5 - 25 mg/dL LAB CHEMISTRY METHOD 04/28/2024 12:11 PM [facility] Creatinine 0.56(L) 0.70 - 1.30 mg/dL LAB CHEMISTRY METHOD 04/28/2024 12:11 PM [facility] eGFR 103 >=60 mL/min/1. 73m2 LAB CHEMISTRY METHOD 04/28/2024 12:11 PM [facility] Comment:Calculation based on the??Chronic Kidney Disease Epidemiology Collaboration (CKD-EPI) equation refit??without adjustment for race. BUN/Creatinine Ratio 28.6 LAB CHEMISTRY METHOD 04/28/2024 12:11 PM [facility] Calcium 9.0 8.5 - 10.5 mg/dL LAB CHEMISTRY METHOD 04/28/2024 12:11 PM [facility] AST (SGOT) 31 10 - 42 unit/L LAB CHEMISTRY METHOD 04/28/2024 12:11 PM [facility] ALT (SGPT) 48 10 - 60 unit/L LAB CHEMISTRY METHOD 04/28/2024 12:11 PM [facility] Alkaline Phosphatase 136(H) 42 - 121 unit/L LAB CHEMISTRY METHOD 04/28/2024 12:11 PM [facility] Total Protein 6.4 6.0 - 8.0 g/dL LAB CHEMISTRY METHOD 04/28/2024 12:11 PM [facility] Albumin 2.9(L) 3.2 - 5.0 g/dL LAB CHEMISTRY METHOD 04/28/2024 12:11 PM EST [facility] Total Bilirubin 0.5 0.0 - 1.4 mg/dL LAB CHEMISTRY METHOD 04/28/2024 12:11 PM [facility] Blood Venous blood specimen / Unknown Venipuncture / Unknown 04/28/2024 6:19 AM EST 04/28/2024 10:16 AM EST us Kenny Malave MD LAB BLOOD ORDERABLES Final Resul t [facility] [address] [place] [address], [place] [phone] * (ABNORMAL) Complete blood count (04/28/2024 6:19 AM EST) WBC 6.8 4.8 - 10.8 K/mcL LAB HEMETOLOGY METHOD 04/28/2024 11:29 AM [facility] RBC 4.10(L) 4.50 - 5.50 M/mcL LAB HEMETOLOGY METHOD 04/28/2024 11:29 AM [facility] Hemoglobin 11.4(L) 13.5 - 17.5 g/dL LAB HEMETOLOGY METHOD 04/28/2024 11:29 AM [facility] Hematocrit 33.6(L) 42.0 - 54.0 % LAB HEMETOLOGY METHOD 04/28/2024 11:29 AM [facility] MCV 81.8 79.0 - 98.0 FL LAB HEMETOLOGY METHOD 04/28/2024 11:29 AM [facility] MCH 27.7 27.0 - 32.0 pcg LAB HEMETOLOGY METHOD 04/28/2024 11:29 AM [facility] MCHC 33.9 32.0 - 37.0 g/dL LAB HEMETOLOGY METHOD 04/28/2024 11:29 AM EST [facility] RDW 13.2 11.0 - 15.0 % LAB HEMETOLOGY METHOD 04/28/2024 11:29 AM EST [facility] Platelets 491(H) 130 - 400 K/mcL LAB HEMETOLOGY METHOD 04/28/2024 11:29 AM EST [facility] MPV 8.2 7.0 - 11.0 FL LAB HEMETOLOGY METHOD 04/28/2024 11:29 AM EST [facility] NRBC 0.0 <1.0 % LAB HEMETOLOGY METHOD 04/28/2024 11:29 AM EST [facility] NRBC Absolute 0.00 <0.10 K/mcL LAB HEMETOLOGY METHOD 04/28/2024 11:29 AM [facility] Blood Venous blood specimen / Unknown Venipuncture / Unknown 04/28/2024 6:19 AM EST 04/28/2024 10:16 AM EST us Kenny Malave MD LAB BLOOD ORDERABLES Final Resul t [facility] [address] [place] [address], documented in this encounter Visit Diagnoses Diagnosis Essential (primary) hypertension Unspecified essential hypertension documented in this encounter Care Teams Gear Machine Operator Relationship Specialty Start Date End Date Alan Chanel MD [address] [place] [address] Dr Reyna Kruger [place] PCP - General Internal Medicine 03/12/24 documented as of this encounter
--- OUTSIDE RECORDS SUMMARY | 2024-07-09 10:02 | XMS_ITS | Clinical Summary ---
Author Organization 175 [facility] Address [address] [place] [address] Phone Care Team Providers Care Fish Flipper Name Role Phone Alan Chanel MD Primary [...] Encounters Date Type Department Care Team Description 07/08/2024 Lab Requisition [facility] Main Lab [address] [place] [phone] Kenny Malave MD Anemia, unspecified; Chronic obstructive pulmonary disease, unspecified (CMS/HCC) 06/08/2024 Lab Requisition [facility] Lab [address] [place] [phone] Kenny Malave MD Chronic obstructive pulmonary disease, unspecified ([facility]/HCC) 06/04/2024 Lab Requisition [facility] Main Lab [address] [place] [phone] Kenny Malave MD Other fpc (current) drug therapy 05/28/2024 Lab Requisition [facility] Lab [address] [place] [address] Kenny Malave MD Polyneuropathy, unspecified; Unspecified protein-calorie malnutrition (CMS/HCC); Chronic obstructive pulmonary disease, unspecified (CMS/HCC) 05/18/2024 Lab Requisition [facility] Main Lab [address] [place] [phone] Kenny Malave MD Essential (primary) hypertension 05/11/2024 Lab Requisition [facility] Main Lab [address] [place] [address] Kenny Malave MD Essential (primary) hypertension 05/04/2024 Lab Requisition [facility] Lab [address] [place] [address] Kenny Malave MD Essential (primary) hypertension 04/28/2024 Lab Requisition [facility] Lab [address] [place] [address] Kenny Malave MD Essential (primary) hypertension 04/22/2024 Lab Requisition [facility] Lab [address] [place] [address] Ever Reyna MD Encounter for other general examination 04/22/2024 Lab Requisition [facility] Lab [address] [place] [address] Ever Reyna MD Encounter for other general examination 04/21/2024 Lab Requisition [facility] Lab [address] [place] [address] Ever Reyna MD Encounter for other general examination 04/20/2024 Lab Requisition [facility] Lab [address] [place] [address] Ever Reyna MD Encounter for other general examination 04/17/2024 Lab Requisition [facility] Lab [address] [place] [address] Ever Reyna MD Encounter for other general examination 04/15/2024 Lab Requisition [facility] Lab [address] [place] [address] Ever Reyna MD Encounter for other general examination 04/14/2024 Lab Requisition [facility] Lab [address] [place] [address] Ever Reyna MD Encounter for other general examination 04/14/2024 Lab Requisition [facility] Lab [address] [place] [address] Ever Reyna MD Encounter for other general examination 04/13/2024 Lab Requisition [facility] Lab [address] [place] [phone] Ever Reyna MD Encounter for other general examination 04/12/2024 Lab Requisition [facility] - Main Lab [address] [facility] [place] [phone] Ever Reyna MD Encounter for other general [...] Screening 02/28/2024 Hypertension/CHF/CAD Annual BMP Blood Test 07/08/2025 07/08/2024, 06/08/2024, 06/04/2024, Additional history exists HIB Vaccines Aged Out [...] Procedure Name Priority Date/Time Associated Diagnosis Comments PHOSPHORUS Routine 07/08/2024 6:23 AM EST Anemia, unspecified Chronic obstructive pulmonary disease, unspecified (CMS/HCC) COMPREHENSIVE METABOLIC PANEL Routine 07/08/2024 6:23 AM EST Anemia, unspecified Chronic obstructive pulmonary disease, unspecified (CMS/HCC) COMPLETE BLOOD COUNT Routine 07/08/2024 6:23 AM EST Anemia, unspecified Chronic obstructive pulmonary disease, unspecified (CMS/HCC) BASIC METABOLIC PANEL Routine 06/08/2024 7:16 AM EST Chronic obstructive pulmonary disease, unspecified (CMS/HCC) COMPLETE BLOOD COUNT Routine 06/08/2024 7:16 AM EST Chronic obstructive pulmonary disease, unspecified (CMS/HCC) BASIC METABOLIC PANEL Routine 06/04/2024 5:36 AM EST Other fpc (current) drug therapy BASIC METABOLIC PANEL Routine [...] Months Results * (ABNORMAL) Complete blood count (07/08/2024 6:23 AM EST) Only the most recent of8 resultswithin the time period is included. WBC 6.5 4.8 - 10.8 K/mcL LAB HEMETOLOGY METHOD 07/08/2024 11:24 AM EST [facility] LAB RBC 3.90 3.80 - 4.80 M/mcL LAB HEMETOLOGY METHOD 07/08/2024 11:24 AM EST [facility] LAB Hemoglobin 11.1(L) 11.5 - 16.0 g/dL LAB HEMETOLOGY METHOD 07/08/2024 11:24 AM EST [facility] LAB Hematocrit 33.8(L) 35.0 - 47.0 % LAB HEMETOLOGY METHOD 07/08/2024 11:24 AM EST [facility] LAB MCV 86.7 79.0 - 98.0 FL LAB HEMETOLOGY METHOD 07/08/2024 11:24 AM EST [facility] LAB MCH 28.5 27.0 - 32.0 pcg LAB HEMETOLOGY METHOD 07/08/2024 11:24 AM [facility] LAB MCHC 32.8 32.0 - 37.0 g/dL LAB HEMETOLOGY METHOD 07/08/2024 11:24 AM EST [facility] LAB RDW 17.4(H) 11.0 - 15.0 % LAB HEMETOLOGY METHOD 07/08/2024 11:24 AM [facility] LAB Platelets 500(H) 130 - 400 K/mcL LAB HEMETOLOGY METHOD 07/08/2024 11:24 AM [facility] LAB MPV 8.2 7.0 - 11.0 FL LAB HEMETOLOGY METHOD 07/08/2024 11:24 AM EST [facility] LAB NRBC 0.0 <1.0 % LAB HEMETOLOGY METHOD 07/08/2024 11:24 AM [facility] LAB NRBC Absolute 0.00 <0.10 K/mcL LAB HEMETOLOGY METHOD 07/08/2024 11:24 AM [facility] LAB Blood Venous blood specimen / Unknown Venipuncture / Unknown 07/08/2024 6:23 AM EST 07/08/2024 10:53 AM EST us Kenny Malave MD LAB BLOOD ORDERABLES Final Resul t [facility] LAB [address] [place] [address], * Phosphorus (07/08/2024 6:23 AM EST) Phosphorus 4.2 2.5 - 4.5 mg/dL LAB CHEMISTRY METHOD 07/08/2024 2:39 PM [facility] LAB Blood Venous blood specimen / Unknown Venipuncture / Unknown 07/08/2024 6:23 AM EST 07/08/2024 10:53 AM EST us Kenny Malave MD LAB BLOOD ORDERABLES Final Resul t [facility] LAB [address] [place] [address], * (ABNORMAL) Comprehensive metabolic panel (07/08/2024 6:23 AM EST) Only the most recent of6 resultswithin the time period is included. Sodium 132(L) 133 - 145 mmol/L LAB CHEMISTRY METHOD 07/08/2024 2:39 PM [facility] LAB Potassium 4.7 3.5 - 5.5 mmol/L LAB CHEMISTRY METHOD 07/08/2024 2:39 PM [facility] LAB Chloride 98 96 - 110 mmol/L LAB CHEMISTRY METHOD 07/08/2024 2:39 PM [facility] LAB CO2 23 21 - 32 mmol/L LAB CHEMISTRY METHOD 07/08/2024 2:39 PM [facility] LAB Anion Gap 11 3 - 11 LAB CHEMISTRY METHOD 07/08/2024 2:39 PM [facility] LAB Glucose 72 70 - 100 mg/dL LAB CHEMISTRY METHOD 07/08/2024 2:39 PM [facility] LAB BUN 16 5 - 25 mg/dL LAB CHEMISTRY METHOD 07/08/2024 2:39 PM [facility] LAB Creatinine 0.61 0.50 - 1.10 mg/dL LAB CHEMISTRY METHOD 07/08/2024 2:39 PM [facility] LAB eGFR 94 >=60 mL/min/1. 73m2 LAB CHEMISTRY METHOD 07/08/2024 2:39 PM EST [facility] Comment:Calculation based on the??Chronic Kidney Disease Epidemiology Collaboration (CKD-EPI) equation refit??without adjustment for race. BUN/Creatinine Ratio 26.2 LAB CHEMISTRY METHOD 07/08/2024 2:39 PM [facility] LAB Calcium 9.5 8.5 - 10.5 mg/dL LAB CHEMISTRY METHOD 07/08/2024 2:39 PM [facility] LAB AST (SGOT) 28 10 - 42 unit/L LAB CHEMISTRY METHOD 07/08/2024 2:39 PM [facility] LAB ALT (SGPT) 22 10 - 60 unit/L LAB CHEMISTRY METHOD 07/08/2024 2:39 PM [facility] LAB Alkaline Phosphatase 79 42 - 121 unit/L LAB CHEMISTRY METHOD 07/08/2024 2:39 PM [facility] LAB Total Protein 7.2 6.0 - 8.0 g/dL LAB CHEMISTRY METHOD 07/08/2024 2:39 PM [facility] LAB Albumin 3.5 3.2 - 5.0 g/dL LAB CHEMISTRY METHOD 07/08/2024 2:39 PM [facility] LAB Total Bilirubin 0.2 0.0 - 1.4 mg/dL LAB CHEMISTRY METHOD 07/08/2024 2:39 PM [facility] LAB Blood Venous blood specimen / Unknown Venipuncture / Unknown 07/08/2024 6:23 AM EST 07/08/2024 10:53 AM EST us Kenny Malave MD LAB BLOOD ORDERABLES Final Resul t [facility] LAB [address] [place] [address], [place] [phone] * Basic metabolic panel (06/08/2024 7:16 AM EST) Only the most recent of10 resultswithin the time period is included. Sodium 136 133 - 145 mmol/L LAB CHEMISTRY METHOD 06/08/2024 11:51 AM [facility] LAB Potassium 5.0 3.5 - 5.5 mmol/L LAB CHEMISTRY METHOD 06/08/2024 11:51 AM [facility] LAB Comment:Results verified by repeat testing Chloride 102 96 - 110 mmol/L LAB CHEMISTRY METHOD 06/08/2024 11:51 AM [facility] LAB CO2 26 21 - 32 mmol/L LAB CHEMISTRY METHOD 06/08/2024 11:51 AM [facility] LAB Anion Gap 8 3 - 11 LAB CHEMISTRY METHOD 06/08/2024 11:51 AM [facility] LAB Glucose 78 70 - 100 mg/dL LAB CHEMISTRY METHOD 06/08/2024 11:51 AM [facility] LAB BUN 17 5 - 25 mg/dL LAB CHEMISTRY METHOD 06/08/2024 11:51 AM [facility] LAB Creatinine 0.53 0.50 - 1.10 mg/dL LAB CHEMISTRY METHOD 06/08/2024 11:51 AM [facility] LAB eGFR 97 >=60 mL/min/1. 73m2 LAB CHEMISTRY METHOD 06/08/2024 11:51 AM [facility] LAB Comment:Calculation based on the??Chronic Kidney Disease Epidemiology Collaboration (CKD-EPI) equation refit??without adjustment for race. BUN/Creatinine Ratio 32.1 LAB CHEMISTRY METHOD 06/08/2024 11:51 AM [facility] LAB Calcium 9.6 8.5 - 10.5 mg/dL LAB CHEMISTRY METHOD 06/08/2024 11:51 AM [facility] LAB Blood Venous blood specimen / Unknown Venipuncture / Unknown 06/08/2024 7:16 AM EST 06/08/2024 9:26 AM EST us Kenny Malave MD LAB BLOOD ORDERABLES Final Resul t [facility] LAB [address] [place] [address], [place] [phone] * Sodium, urine, random (04/22/2024 4:20 AM EST) Only the most recent of2 resultswithin the time period is included. Sodium, Ur 54 mmol/L LAB CHEMISTRY METHOD 04/22/2024 11:29 AM EST [facility] LAB Urine Urine specimen obtained by clean catch procedure / Unknown 04/22/2024 4:20 AM EST 04/22/2024 9:49 AM EST us Ever Reyna MD LAB URINE ORDERABLES Final Res ult Performing Organization Address [facility] Co de Phone Number [facility] LAB [address] [place] [address], [place] [phone] * Osmolality, urine (04/22/2024 4:20 AM EST) Only the most recent of2 resultswithin the time period is included. Osmolality, Urine 516 300 - 1,300 mOsm/kg LAB CHEMISTRY METHOD 04/22/2024 11:23 AM EST [facility] LAB Urine Urine specimen obtained by clean catch procedure / Unknown 04/22/2024 4:20 AM EST 04/22/2024 9:49 AM EST us Ever Reyna MD LAB URINE ORDERABLES Final Res ult Performing Organization Address City/[facility]/ZIP Co de Phone Number [facility] LAB [address] [place] [address], [place] [phone] * Lipase (04/21/2024 6:13 AM EST) Lipase 47 13 - 75 unit/L LAB CHEMISTRY METHOD 04/21/2024 10:03 AM EST [facility] LAB Blood Venous blood specimen / Unknown Venipuncture / Unknown 04/21/2024 6:13 AM EST 04/21/2024 8:46 AM EST Ever Reyna MD LAB BLOOD ORDERABLES Final Res ult Performing Organization Address [facility] Co de Phone Number [facility] LAB [address] [place] [address], [place] [phone] * Amylase (04/21/2024 6:13 AM EST) [facility] Amylase 51 25 - 115 unit/L LAB CHEMISTRY METHOD 04/21/2024 10:03 AM EST [facility] LAB Blood Venous blood specimen / Unknown Venipuncture / Unknown 04/21/2024 6:13 AM EST 04/21/2024 8:46 AM EST Ever Reyna MD LAB BLOOD ORDERABLES Final Res ult Performing Organization Address [facility] de Phone Number [facility] LAB [address] [place] [address], [place] [phone] * (ABNORMAL) Osmolality (04/14/2024 4:35 AM EST) [facility] Osmolality Richar 268(L) 280 - 300 mOsm/kg LAB CHEMISTRY METHOD 04/14/2024 11:19 AM EST [facility] LAB Blood Venous blood specimen / Unknown Venipuncture / Unknown 04/14/2024 4:35 AM EST 04/14/2024 9:55 AM EST Ever Reyna MD LAB BLOOD ORDERABLES Final Res ult Performing Organization Address [facility] Co de Phone Number [facility] LAB [address] [place] [address], [place] [phone] * (ABNORMAL) CBC auto differential (04/12/2024 7:35 AM EST) [facility] WBC 6.1 4.8 - 10.8 K/mcL LAB [...] ORDERABLES Final Res ult Performing Organization Address City/[facility]/ZIP Co de Phone Number [facility] LAB [address] [place] [address], [place] [phone] * (ABNORMAL) Magnesium (04/12/2024 7:35 AM EST) Magnesium 1.7(L) 1.9 - 2.6 mg/dL LAB CHEMISTRY METHOD 04/12/2024 10:55 AM EST [facility] LAB Blood Venous blood specimen / Unknown Venipuncture / Unknown 04/12/2024 7:35 AM EST 04/12/2024 10:02 AM EST Ever Reyna MD LAB BLOOD ORDERABLES Final Res ult Performing Organization Address [facility]/ZIP Co de Phone Number [facility] LAB [address] [place] [address], [place] [phone] from Last 3 Months Insurance MEDICARE MEDICAID - [place] Care Teams Fish Flipper Relationship Specialty Start Date End Date Alan Chanel MD [address] [place] [address] [address] MAGEN Kruger PCP - General Internal Medicine 03/12/24
--- OUTSIDE RECORDS SUMMARY | 2024-07-09 10:02 | XMS_ITS | Encounter Summary ---
Author Organization [facility] Address [address] [place] [address] Care Team Providers Care Head Scorer Name Role Phone Alan Chanel MD Primary Care Provider Encounter Details Date Type Department Care Team (Late st Contact Info) Description 04/22/2024 Lab Requisition [facility] - Main Lab [address] [facility] [place] [address] Ever Reyna MD [address] [place] [id number] Encounter for other general examination Social History [...] LAB CHEMISTRY METHOD 04/22/2024 11:08 AM EST [facility] LAB Potassium 3.6 3.5 - 5.5 mmol/L LAB CHEMISTRY METHOD 04/22/2024 11:08 AM EST [facility] LAB Chloride 91(L) 96 - 110 mmol/L LAB CHEMISTRY METHOD 04/22/2024 11:08 AM EST [facility] LAB CO2 26 21 - 32 mmol/L LAB CHEMISTRY METHOD 04/22/2024 11:08 AM [facility] LAB Anion Gap 10 3 - 11 LAB CHEMISTRY METHOD 04/22/2024 11:08 AM [facility] LAB Glucose 77 70 - 100 mg/dL LAB CHEMISTRY METHOD 04/22/2024 11:08 AM [facility] LAB BUN 10 5 - 25 mg/dL LAB CHEMISTRY METHOD 04/22/2024 11:08 AM [facility] LAB Creatinine 0.55(L) 0.70 - 1.30 mg/dL LAB CHEMISTRY METHOD 04/22/2024 11:08 AM [facility] LAB eGFR 104 >=60 mL/min/1. 73m2 LAB CHEMISTRY METHOD 04/22/2024 11:08 AM [facility] LAB Comment:Calculation based on the??Chronic Kidney Disease Epidemiology Collaboration (CKD-EPI) equation refit??without adjustment for race. BUN/Creatinine Ratio 18.2 LAB CHEMISTRY METHOD 04/22/2024 11:08 AM [facility] LAB Calcium 8.8 8.5 - 10.5 mg/dL LAB CHEMISTRY METHOD 04/22/2024 11:08 AM [facility] LAB Blood Venous blood specimen / Unknown Venipuncture / Unknown 04/22/2024 5:40 AM EST 04/22/2024 10:03 AM EST us Ever Reyna MD LAB BLOOD ORDERABLES Final Res ult [facility] LAB [address] [place] [address], documented in this encounter Visit Diagnoses Diagnosis Encounter for other general examination documented in this encounter Care Teams Head Scorer Relationship Specialty Start Date End Date Alan Chanel MD [address] [place] [address] Reyna [address] [place] PCP - General Internal Medicine 03/12/24 documented as of this encounter
--- OUTSIDE RECORDS SUMMARY | 2024-07-09 10:02 | XMS_ITS | Encounter Summary ---
Author Organization [facility] Address [address] [place] [address] Care Team Providers Care Air And Water Filler Name Role Phone Alan Chanel MD Primary Care Provider Encounter Details Date Type Department Care Team (Late st Contact Info) Description 07/08/2024 Lab Requisition [facility] - Main Lab [address] [place] [address] Kenny Malave MD [address] [facility] [address] [place], [address] Anemia, unspecified; Chronic obstructive pulmonary disease, unspecified (CMS/HCC) Social [...] Associated Diagnosis Comments COMPLETE BLOOD COUNT Routine 07/08/2024 6:23 AM EST Anemia, unspecified Chronic obstructive pulmonary disease, unspecified (CMS/HCC) PHOSPHORUS Routine 07/08/2024 6:23 AM EST Anemia, unspecified Chronic obstructive pulmonary disease, unspecified (CMS/HCC) COMPREHENSIVE METABOLIC PANEL Routine 07/08/2024 6:23 AM EST Anemia, unspecified Chronic obstructive pulmonary disease, unspecified (CMS/HCC) documented in this encounter Results * Phosphorus (07/08/2024 6:23 AM EST) Phosphorus 4.2 2.5 - 4.5 mg/dL LAB CHEMISTRY METHOD 07/08/2024 2:[address] [facility] LAB Blood Venous blood specimen / Unknown Venipuncture / Unknown 07/08/2024 6:23 AM EST 07/08/2024 10:53 AM EST us Kenny Malave MD LAB BLOOD ORDERABLES Final Resul t [facility] LAB [address] [place] [address], [place] [phone] * (ABNORMAL) Comprehensive metabolic panel (07/08/2024 6:23 AM EST) Sodium 132(L) 133 - 145 mmol/L LAB CHEMISTRY METHOD 07/08/2024 2:[address] [facility] LAB Potassium 4.7 3.5 - 5.5 mmol/L LAB CHEMISTRY METHOD 07/08/2024 2:[address] [facility] Chloride 98 96 - 110 mmol/L LAB CHEMISTRY METHOD 07/08/2024 2:[address] [facility] LAB CO2 23 21 - 32 mmol/L LAB CHEMISTRY METHOD 07/08/2024 2:[address] [facility] LAB Anion Gap 11 3 - 11 LAB CHEMISTRY METHOD 07/08/2024 2:[address] [facility] LAB Glucose 72 70 - 100 mg/dL LAB CHEMISTRY METHOD 07/08/2024 2:[address] [facility] BUN 16 5 - 25 mg/dL LAB CHEMISTRY METHOD 07/08/2024 2:[address] [facility] LAB Creatinine 0.61 0.50 - 1.10 mg/dL LAB CHEMISTRY METHOD 07/08/2024 2:[address] [facility] LAB eGFR 94 >=60 mL/min/1. 73m2 LAB CHEMISTRY METHOD 07/08/2024 2:[address] [facility] LAB Comment:Calculation based on the??Chronic Kidney Disease Epidemiology Collaboration (CKD-EPI) equation refit??without adjustment for race. BUN/Creatinine Ratio 26.2 LAB CHEMISTRY METHOD 07/08/2024 2:[address] [facility] LAB Calcium 9.5 8.5 - 10.5 mg/dL LAB CHEMISTRY METHOD 07/08/2024 2:[address] [facility] LAB AST (SGOT) 28 10 - 42 unit/L LAB CHEMISTRY METHOD 07/08/2024 2:[address] [facility] LAB ALT (SGPT) 22 10 - 60 unit/L LAB CHEMISTRY METHOD 07/08/2024 2:[address] [facility] LAB Alkaline Phosphatase 79 42 - 121 unit/L LAB CHEMISTRY METHOD 07/08/2024 2:[address] [facility] LAB Total Protein 7.2 6.0 - 8.0 g/dL LAB CHEMISTRY METHOD 07/08/2024 2:[address] [facility] LAB Albumin 3.5 3.2 - 5.0 g/dL LAB CHEMISTRY METHOD 07/08/2024 2:[address] [facility] LAB Total Bilirubin 0.2 0.0 - 1.4 mg/dL LAB CHEMISTRY METHOD 07/08/2024 2:[address] [facility] LAB Blood Venous blood specimen / Unknown Venipuncture / Unknown 07/08/2024 6:23 AM EST 07/08/2024 10:53 AM EST us Kenny Malave MD LAB BLOOD ORDERABLES Final Resul t [facility] [address] [place] [address], * (ABNORMAL) Complete blood count (07/08/2024 6:23 AM EST) WBC 6.5 4.8 - 10.8 K/mcL LAB HEMETOLOGY METHOD 07/08/2024 11:24 AM EST [facility] RBC 3.90 3.80 - 4.80 M/mcL LAB HEMETOLOGY METHOD 07/08/2024 11:[address] [facility] Hemoglobin 11.1(L) 11.5 - 16.0 g/dL LAB HEMETOLOGY METHOD 07/08/2024 11:[address] [facility] LAB Hematocrit 33.8(L) 35.0 - 47.0 % LAB HEMETOLOGY METHOD 07/08/2024 11:[address] [facility] LAB MCV 86.7 79.0 - 98.0 FL LAB HEMETOLOGY METHOD 07/08/2024 11:[address] [facility] MCH 28.5 27.0 - 32.0 pcg LAB HEMETOLOGY METHOD 07/08/2024 11:[address] [facility] MCHC 32.8 32.0 - 37.0 g/dL LAB HEMETOLOGY METHOD 07/08/2024 11:[address] [facility] LAB RDW 17.4(H) 11.0 - 15.0 % LAB HEMETOLOGY METHOD 07/08/2024 11:[address] [facility] LAB Platelets 500(H) 130 - 400 K/mcL LAB HEMETOLOGY METHOD 07/08/2024 11:[address] [facility] MPV 8.2 7.0 - 11.0 FL LAB HEMETOLOGY METHOD 07/08/2024 11:[address] [facility] NRBC 0.0 <1.0 % LAB HEMETOLOGY METHOD 07/08/2024 11:[address] [facility] LAB NRBC Absolute 0.00 <0.10 K/mcL LAB HEMETOLOGY METHOD 07/08/2024 11:[address] [facility] Blood Venous blood specimen / Unknown Venipuncture / Unknown 07/08/2024 6:23 AM EST 07/08/2024 10:53 AM EST us Kenny Malave MD LAB BLOOD ORDERABLES Final Resul t [facility] ([facility] [address] [place] [address], documented in this encounter Visit Diagnoses Diagnosis Anemia, unspecified Chronic obstructive pulmonary disease, unspecified (CMS/HCC) documented in this encounter Care Teams Air And Water Filler Relationship Specialty Start Date End Date Alan Chanel MD [address] [place] [address] [address] [place] PCP - General Internal Medicine 03/12/24 documented as of this encounter
== END 2024-07-09 09:51 | disposition home or self-care (01) ==
PROVIDERS: PCP Internal Medicine; Visit Provider Physician Assistant
DX: S82.142D Displaced bicondylar fracture of left tibia, subsequent encounter for closed fracture with routine healing (principal)
CPT/HCPCS: 99213

== ENCOUNTER → 2024-07-09 09:06 | Outpatient (BNV) | payer MEDICARE, MEDICAID, SELFPAY | PROVIDERS: Visit Provider Radiology Diagnostic Radiology | DX: S82.102D Unspecified fracture of upper end of left tibia, subsequent encounter for closed fracture with routine healing (principal) | CPT/HCPCS: 73562 ==

== ENCOUNTER 2024-07-09 10:59 | Outpatient (REF) | payer MEDICARE, MEDICAID, SELFPAY ==
--- NOTE | ~2024-07-09 | XR_ITS ---
EXAMINATION: XR KNEE, LEFT CLINICAL INFORMATION: M25.569 - Pain in unspecified knee COMPARISON: 05/19/2024, and exams dating back to 04/02/2024. TECHNIQUE: Three views of the left knee. FINDINGS: Normal bone mineralization. Redemonstration of subacute healing transverse fracture through the proximal tibial metaphysis. No change in alignment. Extensive sclerosis abutting the fracture margins, increasing, consistent with continued healing. Tricompartmental chondrocalcinosis. Mild tricompartmental joint space narrowing. Mild spurring of the tibial spines. Trace suprapatellar joint effusion. Soft tissues demonstrate diffuse vascular calcification. XR/XR knee LT 3V IMPRESSION: 1. Continued interval healing proximal tibial metaphysis. Electronically signed by: Anurag Crow MD 07/13/2024 09:50 AM EDT
--- OUTSIDE RECORDS SUMMARY | 2024-07-10 12:40 | XMS_ITS | Encounter Summary ---
Author Organization [facility] Address [address] [place] [address] Care Team Providers Care Finance Manager Name Role Phone Alan Chanel MD Primary Care Provider [phone] Encounter Details Date Type Department Care Team (Late st Contact Info) Description 06/08/2024 Lab Requisition [facility] - Main Lab [address] [place] [address] Kenny Malave MD 38 [facility] [address] [place], [address] Chronic obstructive pulmonary disease, unspecified (CMS/HCC) [...] LAB CHEMISTRY METHOD 06/08/2024 11:51 AM EST [facility] Potassium 5.0 3.5 - 5.5 mmol/L LAB CHEMISTRY METHOD 06/08/2024 11:51 AM [facility] Comment:Results verified by repeat testing Chloride 102 96 - 110 mmol/L LAB CHEMISTRY METHOD 06/08/2024 11:51 AM [facility] CO2 26 21 - 32 mmol/L LAB CHEMISTRY METHOD 06/08/2024 11:51 AM [facility] Anion Gap 8 3 - 11 LAB CHEMISTRY METHOD 06/08/2024 11:51 AM [facility] Glucose 78 70 - 100 mg/dL LAB CHEMISTRY METHOD 06/08/2024 11:51 AM [facility] BUN 17 5 - 25 mg/dL LAB CHEMISTRY METHOD 06/08/2024 11:51 AM [facility] Creatinine 0.53 0.50 - 1.10 mg/dL LAB CHEMISTRY METHOD 06/08/2024 11:51 AM [facility] eGFR 97 >=60 mL/min/1. 73m2 LAB CHEMISTRY METHOD 06/08/2024 11:51 AM [facility] Comment:Calculation based on the??Chronic Kidney Disease Epidemiology Collaboration (CKD-EPI) equation refit??without adjustment for race. BUN/Creatinine Ratio 32.1 LAB CHEMISTRY METHOD 06/08/2024 11:51 AM [facility] Calcium 9.6 8.5 - 10.5 mg/dL LAB CHEMISTRY METHOD 06/08/2024 11:51 AM [facility] Blood Venous blood specimen / Unknown Venipuncture / Unknown 06/08/2024 7:16 AM EST 06/08/2024 9:26 AM EST us Kenny Malave MD LAB BLOOD ORDERABLES Final Resul t [facility] [address] [place] [address], [place] [phone] * (ABNORMAL) Complete blood count (06/08/2024 7:16 AM EST) WBC 5.0 4.8 - 10.8 K/mcL LAB HEMETOLOGY METHOD 06/08/2024 10:15 AM [facility] RBC 3.80 3.80 - 4.80 M/mcL LAB HEMETOLOGY METHOD 06/08/2024 10:15 AM [facility] Hemoglobin 10.6(L) 11.5 - 16.0 g/dL LAB HEMETOLOGY METHOD 06/08/2024 10:15 AM [facility] Hematocrit 33.0(L) 35.0 - 47.0 % LAB HEMETOLOGY METHOD 06/08/2024 10:15 AM [facility] MCV 86.4 79.0 - 98.0 FL LAB HEMETOLOGY METHOD 06/08/2024 10:15 AM [facility] MCH 27.7 27.0 - 32.0 pcg LAB HEMETOLOGY METHOD 06/08/2024 10:15 AM [facility] MCHC 32.1 32.0 - 37.0 g/dL LAB HEMETOLOGY METHOD 06/08/2024 10:15 AM [facility] RDW 17.9(H) 11.0 - 15.0 % LAB HEMETOLOGY METHOD 06/08/2024 10:15 AM [facility] Platelets 516(H) 130 - 400 K/mcL LAB HEMETOLOGY METHOD 06/08/2024 10:15 AM [facility] MPV 8.5 7.0 - 11.0 FL LAB HEMETOLOGY METHOD 06/08/2024 10:15 AM [facility] NRBC 0.0 <1.0 % LAB HEMETOLOGY METHOD 06/08/2024 10:15 AM [facility] NRBC Absolute 0.00 <0.10 K/mcL LAB HEMETOLOGY METHOD 06/08/2024 10:15 AM [facility] Blood Venous blood specimen / Unknown Venipuncture / Unknown 06/08/2024 7:16 AM EST 06/08/2024 9:26 AM EST us Kenny Malave MD LAB BLOOD ORDERABLES Final Resul t [facility] [address] [place] [address], documented in this encounter Visit Diagnoses Diagnosis Chronic obstructive pulmonary disease, unspecified (CMS/HCC) documented in this encounter Care Teams Finance Manager Relationship Specialty Start Date End Date Alan Chanel MD [address] [place] [address] Dr [address] [place] PCP - General Internal Medicine 03/12/24 documented as of this encounter
--- OUTSIDE RECORDS SUMMARY | 2024-07-10 12:40 | XMS_ITS | Encounter Summary ---
Author Organization [facility] Address [address] [place] [address] Care Team Providers Care Sccm Administrator Name Role Phone Alan Chanel MD Primary Care Provider [phone] Encounter Details Date Type Department Care Team (Late st Contact Info) Description 06/04/2024 Lab Requisition [facility] - Main Lab [address] [place] [address] Kenny Malave MD 38 [facility] [address] [place], [address] Other long chain beamer (current) drug therapy Social History Tobacco Use [...] PANEL Routine 06/04/2024 5:36 AM EST Other snf (current) drug therapy documented in this encounter Results * (ABNORMAL) Basic metabolic panel (06/04/2024 5:36 AM EST) Sodium 138 133 - 145 mmol/L LAB CHEMISTRY METHOD 06/04/2024 11:[address] [facility] Potassium 3.2(L) 3.5 - 5.5 mmol/L LAB CHEMISTRY METHOD 06/04/2024 11:[address] [facility] Chloride 102 96 - 110 mmol/L LAB CHEMISTRY METHOD 06/04/2024 11:[address] [facility] CO2 28 21 - 32 mmol/L LAB CHEMISTRY METHOD 06/04/2024 11:[address] [facility] Anion Gap 8 3 - 11 LAB CHEMISTRY METHOD 06/04/2024 11:25 AM [facility] Glucose 71 70 - 100 mg/dL LAB CHEMISTRY METHOD 06/04/2024 11:[address] [facility] BUN 18 5 - 25 mg/dL LAB CHEMISTRY METHOD 06/04/2024 11:25 AM [facility] Creatinine 0.57 0.50 - 1.10 mg/dL LAB CHEMISTRY METHOD 06/04/2024 11:25 AM [facility] eGFR 95 >=60 mL/min/1. 73m2 LAB CHEMISTRY METHOD 06/04/2024 11:25 AM [facility] Comment:Calculation based on the??Chronic Kidney Disease Epidemiology Collaboration (CKD-EPI) equation refit??without adjustment for race. BUN/Creatinine Ratio 31.6 LAB CHEMISTRY METHOD 06/04/2024 11:25 AM [facility] Calcium 8.8 8.5 - 10.5 mg/dL LAB CHEMISTRY METHOD 06/04/2024 11:25 AM [facility] Blood Venous blood specimen / Unknown Venipuncture / Unknown 06/04/2024 5:36 AM EST 06/04/2024 9:58 AM EST us Kenny Malave MD LAB BLOOD ORDERABLES Final Resul t [facility] [address] [place] [address], documented in this encounter Visit Diagnoses Diagnosis Other long chain beamer (current) drug therapy documented in this encounter Care Teams Sccm Administrator Relationship Specialty Start Date End Date Alan Chanel MD [address] [place] [address] Dr [address] [place] PCP - General Internal Medicine 03/12/24 documented as of this encounter
--- OUTSIDE RECORDS SUMMARY | 2024-07-10 12:41 | XMS_ITS | Continuity of Care Document ---
Author Organization [facility], [facility] Address [address] [place] [address] Care Team Providers Care Cooling Room Attendant Name Role Phone DANIEL PETER - 2ND [...] Recorded Time Adult failure to thrive syndrome 330942095 Active 2023 Kenny Malave MD [address], [facility] [address], [place], [address], [facility] 13:42:50 Syndrome of inappropria te vasopressin secretion 01152667 Active 2023 Kenny Malave MD [address] [place] [address], [address], [place], [address], [facility] 13:42:57 Unsteady when walking 25007806 Active 2023 Kenny Malave MD [address] [place] [address], [address], [place], [address], [facility] 13:43:03 Essential hypertensio n 60091887 Active 2023 Kenny Malave MD [address] [place] [address], [address], [place], [address], [facility] 13:43:09 Anemia 821384278 Active 2023 Kenny Malave MD [address], [place], [address], [facility] 4 13:43:14 Chronic obstructive pulmonary disease 03395674 Active 2023 Kenny Malave MD [address], [place], [address], [facility] 4 13:43:19 Osteoporosi s 72408848 Active 2023 Kenny Malave MD [address], [place], [address], [facility] 4 13:43:27 Neuropathy 388412098 Active 2023 Kenny Malave MD [address], [address], [place], [address], [facility] 4 13:43:33 Mood disorder 45524615 Active 2023 Kenny Malave MD [address], [address], [place], [address], [facility] 4 13:43:41 Closed fracture of left patella 9436346795546 9105 Active 2023 Kenny Malave MD [address], [address], [place], [address], [facility] 4 13:44:22 Hearing loss 74889800 Active 2023 Kenny Malave MD [address], [address], [place], [address], [facility] 4 13:56:41 Problem Notes None recorded. Medical Equipment None Reported. Allergies No known drug allergies Medications Not known to be on any medication Vitals Date Recorded Body weight Heart rate Respiratory rate Body temperature Oxygen saturation Oxygen saturation in Arterial blood by Pulse oximetry Systolic blood pressure Diastolic blood pressure Provider Name and Address Organization Details Last Updated DateTime 5 57424.9 4 g 70 /min 16 /min 98.2 [degF] 98 % 98 % 112 mm[Hg] 68 mm[Hg] Radha Hickey NP [address], [address], [place], [address], [facility] 5 18:26:52 Social History Question Answer Notes LastModified by Organizat ion Details LastModified Time Tobacco Smoking Status Former Smoker 2 ppd smoker quit early 2023 Kenny Malave MD [address], [address], [place], [address], [facility] 04/28/2024 13:58:17 Do You Have An Advance Directive? No Information not available 04/28/2024 What Is Your Level Of Alcohol Consumption? None Information not available 04/28/2024 What Is Your Code Status? DNI [email or web address] Information not available 04/30/2024 How Much Tobacco [...] Recorded Time Tdap 6 completed Joann Kulwant [facility] 05/05/2024 16:34:17 pneumococcal polysaccharide PPV23 6 completed Joann Blum [facility] 05/05/2024 16:34:32 influenza, unspecified formulation 4 completed Joann Blum [facility] 05/05/2024 16:34:49 influenza, unspecified formulation 3 completed Joann Blum [facility] 05/05/2024 16:34:56 influenza, unspecified formulation 2 completed Joann Blum [facility] 05/05/2024 16:35:02 Past Encounters Encounter ID Performer Location Encounter Start Date Encounter Closed Date Diagnosis/Indication Diagnosis SNOMED-CT Code Diagnosis ICD10 Code Diagnosis Note [id number] MAYDA WHIPPLE NP [address] [address] 06/03/2024 15:04:46 06/05/2024 09:47:09 Viral gastroenteritis 529010192 A08.4 N/V/GI upset x 2-3d last weekNow resolved. Closed fra cture of left patella 0482890416 7493763 S82.015G prior fall with left knee fxcontACL brace in placePT OT eval and tx.Seen by Ortho 2 wks ago, still no note scanned into EMR. Will request again.Foll ow ortho recs and update with concernstr amadol 50 mg q 8 prnmonitor pain controlfu with ortho [facility] as sched. Unsteady when walking 22 824774 R26.89 NWB LLE till cleared by orthoPT OT eval and treat for deconditio ningmonito r Adult fail ure to thrive syndrome 901101035 R62.7 see HPIshe was not able to be cared for in community with tibia fxmonitor need for increased servicesco ntinue supportive care at facilitymo nitor weights, intake Syndrome o f inappropriate vasopressin secretion 65460971 E22.2 monitor Na and need to adjust fluid restrictio nMost recent level 135 on 05/28no s/s of siadhMonit or labs Acute hypokalemia 637680 03 E87.6 improved with supplement current K level 3.3not on obvious K depleting medsmonito r lytes - repeat in am Essential hypertension 65906097 I10 bp stablecont inue lisinopril 5 mg qdmonitor bp and need to titrate Anemia 746567895 D50.8 monitor cbcHgb. 11iron studies prn Chronic ob structive pulmonary disease 88012452 J41.1 carrying dx added to PMHmonitor respirator y statusadva ir inhaler 1 puff po bidalbuter ol for wheezes q 4 prn Osteoporosis 44820988 M8 1.0 hx ofcontinue calcium Neuropathy 428706587 G62 .89 hx ofmonitor sx Mood disorder 57857625 F 34.89 with underlying anxietyati van 0.5 mg bidzoloft 50 mg qdSeen by Psych provider 05/11, no new recommenda tionsMonit or mood, behaviors. [id number] Radha Hickey NP [address] [address] 06/05/2024 08:46:02 06/08/2024 14:56:21 Viral gastroenteritis 558379382 A08.4 resolvingN /V/GI upset x 2-3d last week with likely potassium loss related to virus and vomitingNo w resolved. Closed fra cture of left patella 7502869051 8100726 S82.015G prior fall with left knee fxcontACL brace in placePT OT eval and tx.Seen by Ortho 2 wks ago, still no note scanned into EMR. Will request again.Foll ow ortho recs and update with concernstr amadol 50 mg q 8 prnmonitor pain controlfu with ortho [facility] as sched. Unsteady when walking 22 873954 R26.89 NWB LLE till cleared by orthoPT OT eval and treat for deconditio ningmonito r Adult fail ure to thrive syndrome 157859176 R62.7 see HPIshe was not able to be cared for in community with tibia fxmonitor need for increased servicesco ntinue supportive care at facilitymo nitor weights, intake Syndrome o f inappropriate vasopressin secretion 68955518 E22.2 monitor Na and need to adjust fluid restrictio nMost recent level 138 improving from last weekno s/s of siadhMonit or labs Acute hypokalemia 878123 03 E87.6 current K level 3.2 with recent loss for gi virus06/05 start potassium 40 meq x 2 dosesrepea t labs on 06/08 Chronic ob structive pulmonary disease 23057584 J41.1 carrying dx added to PMHmonitor respirator y statusadva ir inhaler 1 puff po bidalbuter ol for wheezes q 4 prn Mood disorder 42307375 F 34.89 with underlying anxietyati van 0.5 mg bidzoloft 50 mg qdSeen by Psych provider 05/11, no new recommenda tionsMonit or mood, behaviors. Essential hypertension 39090710 I10 bp stablecont inue lisinopril 5 mg qdmonitor bp and need to titrate [id number] [facility] [address] 06/11/2024 11:27:16 06/12/2024 13:49:32 Acute hypokalemia 73573692 E87.6 labs improved on 06/08 with k supplement sp gi virus Viral gastroenteritis 11 4477260 A08.4 resolvedN/ V/GI upset x 2-3d last week with likely potassium loss related to virus and vomitingNo w resolved. Closed fra cture of left patella 1332364172 5662276 S82.015G prior fall with left knee fxcontACL brace in placePT OT eval and tx.Seen by Ortho 2 wks ago, still no note scanned into EMR. Will request again.Foll ow ortho recs and update with concernstr amadol 50 mg q 8 prnmonitor pain controlfu with ortho [facility] as sched. Unsteady when walking 22 236370 R26.89 NWB LLE till cleared by orthoPT OT eval and treat for deconditio ningmonito r Adult fail ure to thrive syndrome 441705185 R62.7 see HPIshe was not able to be cared for in community with tibia fxmonitor need for increased servicesco ntinue supportive care at facilitymo nitor weights, intake Syndrome o f inappropriate vasopressin secretion 47350173 E22.2 monitor Na and need to adjust fluid restrictio nno s/s of siadhMonit or labs as above Chronic ob structive pulmonary disease 69417201 J41.1 carrying dx added to PMHmonitor respirator y statusadva ir inhaler 1 puff po bidalbuter ol for wheezes q 4 prn Mood disorder 20153320 F 34.89 with underlying anxiety, stable hereativan 0.5 mg bidzoloft 50 mg qdSeen by Psych provider 05/11, no new recommenda tionsMonit or mood, behaviors. [id number] MAYDA WHIPPLE NP [facility] [address] 06/17/2024 09:17:58 06/18/2024 13:31:49 Acute hypokalemia 68310471 E87.6 labs improved on 06/08 = 5Continue to monitor Viral gastroenteritis 11 4848839 A08.4 resolved Closed fra cture of left patella 3456252558 3744359 S82.015G prior fall with left knee fxcontACL brace in placePT OT eval and tx.Follow ortho recs and update with concernsNe xt appt. 06/30tramad ol 50 mg q 8 prnmonitor pain control Unsteady when walking 22 167693 R26.89 NWB LLE till cleared by orthoPT OT eval and treat for deconditio ningmonito r Adult fail ure to thrive syndrome 117614267 R62.7 see HPIshe was not able to be cared for in community with tibia fxmonitor need for increased services in prep. for dischargec ontinue supportive care at facilitymo nitor weights, intake Syndrome o f inappropriate vasopressin secretion 15049634 E22.2 monitor Na, currently 136Does not appear to be on a FR at this time.no s/s of siadhMonit or labs Chronic ob structive pulmonary disease 41632870 J41.1 monitor respirator y status - currently stablecont inue:advai r inhaler 1 puff po bidalbuter ol for wheezes q 4 prn Mood disorder 71909035 F 34.89 with underlying anxietyCon tinue:ativ an 0.5 mg bidzoloft 50 mg qdSeen by Psych provider 05/11, no new recommenda tionsMonit or mood, behaviors. Essential hypertension 03037530 I10 VSScontinu e lisinopril 5 mg qdmonitor bp and need to titrate Osteoporosis 79562817 M8 1.0 hx ofcontinue calcium Anemia 440928785 D50.8 monitor cbcHgb. 10.6iron studies prn Neuropathy 312445738 G62 .89 hx ofmonitor sx [id number] Radha Hickey NP [address] [address] 06/24/2024 10:59:23 06/26/2024 16:05:53 Acute hypokalemia 03498777 E87.6 stablelike ly related to gi viruslabs improved on 06/08 = 5Continue to monitor Viral gastroenteritis 11 7089383 A08.4 resolved Closed fra cture of left patella 3190145826 4468836 S82.015G prior fall with left knee fxcontACL brace in placePT OT eval and tx.Follow ortho recs and update with concernsNe xt appt. 06/30tramad ol 50 mg q 8 prnmonitor pain control Unsteady when walking 22 340056 R26.89 NWB LLE till cleared by orthoPT OT eval and treat for deconditio funmilayo prnmonitor Adult fail ure to thrive syndrome 176694410 R62.7 not able to be cared for in community with tibia fxmonitor need for increased services in prep. for dischargec ontinue supportive care at facilitymo nitor weights, intake Syndrome o f inappropriate vasopressin secretion 36222737 E22.2 monitor Na, labs as aboveDoes not appear to be on a FR at this time.no s/s of siadhMonit or labs Chronic ob structive pulmonary disease 97011099 J41.1 monitor respirator y status - currently stablecont inue:advai r inhaler 1 puff po bidalbuter ol for wheezes q 4 prn Mood disorder 05425693 F 34.89 with underlying anxiety, stable on ativan hereContin ue:ativan 0.5 mg bidzoloft 50 mg qdSeen by Psych provider 05/11, no new recommenda tionsMonit or mood, behaviors. [id number] Radha Hickey NP [address] [address] 07/03/2024 07:35:22 07/07/2024 12:51:41 Closed fracture of left patella 5114779802 5236327 S82.015G prior fall with left knee fxcontACL brace in placePT OT eval and tx. prn, currently off therapyFol low ortho recs and update with concernsap pt. 06/30, awaiting progress notetramad ol 50 mg q 8 prnmonitor pain control Unsteady when walking 22 805436 R26.89 NWB LLE till cleared by ortho, awaiting note from ortho 06/30 for recPT OT eval and treat for deconditio funmilayo prnmonitor Adult fail ure to thrive syndrome 853771801 R62.7 doing well here overallnot able to be cared for in community with tibia fxmonitor need for increased services in prep. for dischargec ontinue supportive care at facilitymo nitor weights, intake Mood disorder 50670374 F 34.89 with underlying anxiety, stable on [...] ID Guarantor Name 07/03/2024 1 [place]IC[place] B[place]: [employer] Trevon Nieto Lauren [id number] Trevon Lauren 07/03/2024 2 [place] [facility] Trevon Echavarriaoux [id number] Trevon Echavarriaoux Notes Date Note Type Note [...] Trevon is motoring in a wheelchair in [facility]. Leg pain overall improved, denies pain today. [...] cleared by ortho. Radha Hickey, SHEBA [address], [address], [place], [address], [facility] [employer] 07/03/2024 18:35:46 OBGyn Episode No OBEpisode recorded.
--- OUTSIDE RECORDS SUMMARY | 2024-07-10 12:41 | XMS_ITS | Data Portability ---
Author Organization [facility], Main Office Address [address] [facility], [address] [place] [address] Care Team Providers Care Crutch Maker Name Role Phone DANIEL PETER - 2ND [...] Recorded Time Adult failure to thrive syndrome 220650185 Active 2023 Kenny Malave MD [address] [facility], [facility] [address], [place], [address], [facility] 13:42:50 Syndrome of inappropria te vasopressin secretion 05933818 Active 2023 Kenny Malave MD [address] [facility], [address], [place], [address], [facility] 13:42:57 Unsteady when walking 03640769 Active 2023 Kenny Malave MD [address] [facility], [address], [place], [address] , [facility] 4 13:43:03 Essential hypertensio n 75479304 Active 2023 Kenny Malave MD [address] [facility], [address], [place], [address], [facility] 13:43:09 Anemia 328397009 Active 2023 Kenny Malave MD [address], [address], [place], [address], [facility] 4 13:43:14 Chronic obstructive pulmonary disease 25983829 Active 2023 Kenny Malave MD [address], [address], [place], [address], [place] [facility] 4 13:43:19 Osteoporosi s 32364969 Active 2023 Kenny Malave MD [address], [address], [place], [address], [facility] 4 13:43:27 Neuropathy 472787668 Active 2023 Kenny Malave MD [address] [facility], [address], [place], [address], [facility] 4 13:43:33 Mood disorder 16368877 Active 2023 Kenny Malave MD [address] [facility], [address], [place], [address], [facility] 4 13:43:41 Closed fracture of left patella [id number] 9105 Active 2023 Kenny Malave MD [address] [facility], [address], [place], [address], [facility] 4 13:44:22 Hearing loss 66537840 Active 2023 Kenny Malave MD [address] [facility], [address], [place], [address], [facility] 4 13:56:41 Problem Notes None recorded. Medical Equipment None Reported. Allergies No known drug allergies Medications Not known to be on any medication Vitals Date Recorded Body weight Heart rate Respiratory rate Body temperature Oxygen saturation Oxygen saturation in Arterial blood by Pulse oximetry Systolic blood pressure Diastolic blood pressure Provider Name and Address Organization Details Last Updated DateTime 5 55585.9 4 g 87 /min 18 /min 98 [degF] 96 % 96 % 117 mm[Hg] 68 mm[Hg] Radha Hickey NP [address] [facility], [facility] [address], [place], [address], [facility] 5 11:30:35 Date Recorded Heart rate Respiratory rate Body temperature Oxygen saturation Oxygen saturation in Arterial blood by Pulse oximetry Systolic blood pressure Diastolic blood pressure Provider Name and Address Organization Details Last Updated DateTime 5 67 /min 18 /min 98 [degF] 96 % 96 % 134 mm[Hg] 66 mm[Hg] MAYDA WHIPPLE NP [address] [facility], [address], [place], [address], [facility] 5 09:22:53 Date Recorded Body weight Heart rate Respiratory rate Body temperature Oxygen saturation Oxygen saturation in Arterial blood by Pulse oximetry Systolic blood pressure Diastolic blood pressure Provider Name and Address Organization Details Last Updated DateTime 5 17533.9 4 g 86 /min 18 /min 98.2 [degF] 96 % 96 % 99 mm[Hg] 60 mm[Hg] Radha Hickey NP [address] [facility] [address], [place], [address], [facility] 5 14:40:59 Date Recorded Body weight Heart rate Respiratory rate Body temperature Oxygen saturation Oxygen saturation in Arterial blood by Pulse oximetry Systolic blood pressure Diastolic blood pressure Provider Name and Address Organization Details Last Updated DateTime 5 59664.9 4 g 70 /min 16 /min 98.2 [degF] 98 % 98 % 112 mm[Hg] 68 mm[Hg] Radha Hickey NP [address] [facility] [address], [place], [address], [facility] 5 18:26:52 Date Recorded Body weight Heart rate Respiratory rate Body temperature Oxygen saturation Oxygen saturation in Arterial blood by Pulse oximetry Systolic blood pressure Diastolic blood pressure Provider Name and Address Organization Details Last Updated DateTime 5 66546.9 6 g 76 /min 16 /min 98 [degF] 99 % 99 % 110 mm[Hg] 63 mm[Hg] HERNESTO ROSALES CNP [address] [facility], [address], [place], [address], [facility] 5 15:45:39 Social History Question Answer Notes LastModified by Organizat ion Details LastModified Time Tobacco Smoking Status Former Smoker 2 ppd smoker quit early 2023 Kenny Malave MD [address] [facility], [address], [place], [address], [facility] 04/28/2024 13:58:17 Do You Have An Advance Directive? No Information not available 04/28/2024 What Is Your Level Of Alcohol Consumption? None Information not available 04/28/2024 What Is Your Code Status? [email or web address] [email or web address] Information not available 04/30/2024 How Much Tobacco [...] Recorded Time Tdap 6 completed Joann Kulwant [facility] 05/05/2024 16:34:17 pneumococcal polysaccharide PPV23 6 completed Joann Kulwant [facility] 05/05/2024 16:34:32 influenza, unspecified formulation [facility] 16:34:49 influenza, unspecified formulation 3 completed Joann Kulwant [facility] 05/05/2024 16:34:56 influenza, unspecified formulation 2 completed Joann Kulwant [facility] 05/05/2024 16:35:02 Past Encounters Encounter ID Performer Location Encounter Start Date Encounter Closed Date Diagnosis/Indication Diagnosis SNOMED-CT Code Diagnosis ICD10 Code Diagnosis Note [id number] Kenny Malave MD [address] [address] 04/28/2024 13:33:15 04/30/2024 11:05:32 Adult failure to thrive syndrome 536947710 R62.7 see HPInot able to be cared for in communitym onitor need for increased servicesco ntinue supportive care at facilitypo or PO intake priordieta ry to evalmonito r weights Closed fra cture of left patella 8617080592 9539889 S82.015G prior fall with left knee fxACL brace in placeNWB till cleared by orthofollo w ortho recs and update with concernstr amadol 50 mg q 8 prnmonitor pain control Syndrome o f inappropriate vasopressin secretion 12116478 E22.2 monitor Na and need to adjust fluid restrictio n Acute hypokalemia 837358 03 E87.6 improved with supplement monitor lytes Unsteady when walking 22 948795 R26.89 NWB LLE till cleared by orthoPT OT eval and treat for deconditio funmilayo Essential hypertension 86190846 I10 lisinopril 5 mg qdmonitor bp and need to titrate Anemia 966114851 D50.8 monitor cbciron studies prn Chronic ob structive pulmonary disease 72004184 J41.1 carrying dx added to PMHmonitor respirator y status Osteoporosis 85434108 M8 1.0 added to PMH Neuropathy 295127107 G62 .89 carrying dx added to PMHmonitor sx Mood disorder 19179679 F 34.89 with underlying anxietyati van 0.5 mg bidzoloft 50 mg qd Hearing loss 03032653 H9 0.0 audiology eval prn [id number] Radha Hickey NP [address] [address] 05/15/2024 12:28:25 05/19/2024 09:13:20 Adult failure to thrive syndrome 135498126 R62.7 see HPIshe was not able to be cared for in community with tibia fxmonitor need for increased servicesco ntinue supportive care at facilitydi etary to evalmonito r weights Closed fra cture of left patella 1203404363 0781882 S82.015G prior fall with left knee fxcontACL brace in placeNWB till cleared by orthofollo w ortho recs and update with concernstr amadol 50 mg q 8 prnmonitor pain controlfu with ortho [facility] on 05/19/24 Syndrome o f inappropriate vasopressin secretion 38571197 E22.2 monitor Na and need to adjust fluid restrictio nno s/s of siadh Acute hypokalemia 569517 03 E87.6 improved with supplement monitor lytes Unsteady when walking 22 343254 R26.89 NWB LLE till cleared by orthoPT OT eval and treat for deconditio ningmonito r Essential hypertension 19512572 I10 bp stablelisi nopril 5 mg qdmonitor bp and need to titrate Anemia 650513313 D50.8 monitor cbciron studies prn Chronic ob structive pulmonary disease 58037506 J41.1 carrying dx added to PMHmonitor respirator y statusadva ir inhaler 1 puff po bidalbuter ol for wheezes q 4 prn Osteoporosis 32427849 M8 1.0 hx ofcalcium Neuropathy 079042222 G62 .89 hx ofmonitor sx Mood disorder 68560214 F 34.89 with underlying anxietyati van 0.5 mg bidzoloft 50 mg qd [id number] MAYDA WHIPPLE NP [facility] [address] [address] 05/20/2024 12:54:44 05/22/2024 14:28:37 Closed fracture of left patella 7897511290 0465833 S82.015G prior fall with left knee fxcontACL brace in placePT OT eval and tx.NWB till cleared by ortho - seen yesterday, get consult note to reviewfoll ow ortho recs and update with concernstr amadol 50 mg q 8 prnmonitor pain controlfu with ortho [facility] as sched. Unsteady when walking 22 730635 R26.89 NWB LLE till cleared by orthoPT OT eval and treat for deconditio ningmonito r Adult fail ure to thrive syndrome 820982399 R62.7 see HPIshe was not able to be cared for in community with tibia fxmonitor need for increased servicesco ntinue supportive care at facilitydi etary to evalmonito r weights Syndrome o f inappropriate vasopressin secretion 94000419 E22.2 monitor Na and need to adjust fluid restrictio nCurrent Na level 134, repeat x 1 05/25no s/s of siadh Acute hypokalemia 551507 03 E87.6 improved with supplement current K level 3.4monitor lytes - repeat 05/25 Essential hypertension 50175985 I10 bp stablecont inue lisinopril 5 mg qdmonitor bp and need to titrate Anemia 362507401 D50.8 monitor cbcHgb. 11iron studies prn Chronic ob structive pulmonary disease 56032590 J41.1 carrying dx added to PMHmonitor respirator y statusadva ir inhaler 1 puff po bidalbuter ol for wheezes q 4 prn Osteoporosis 30872117 M8 1.0 hx ofcalcium Neuropathy 514586433 G62 .89 hx ofmonitor sx Mood disorder 94711090 F 34.89 with underlying anxietyati van 0.5 mg bidzoloft 50 mg qdSeen by Psych provider 05/11, no new recommenda tionsMonit or mood, behaviors. [id number] MAYDA WHIPPLE NP [facility] [address] [address] 05/27/2024 14:06:34 05/28/2024 10:49:56 Closed fracture of left patella 1387971573 5115230 S82.015G prior fall with left knee fxcontACL brace in placePT OT eval and tx.Seen by Ortho last week, second request for office note to review.fol low ortho recs and update with concernstr amadol 50 mg q 8 prnmonitor pain controlfu with ortho [facility] as sched. Unsteady when walking 22 226113 R26.89 NWB LLE till cleared by orthoPT OT eval and treat for deconditio ningmonito r Adult fail ure to thrive syndrome 774808564 R62.7 see HPIshe was not able to be cared for in community with tibia fxmonitor need for increased servicesco ntinue supportive care at facilitydi etary to evalmonito r weights Syndrome o f inappropriate vasopressin secretion 28368194 E22.2 monitor Na and need to adjust fluid restrictio nCurrent Na level 134, repeat x 1 05/25 not done - check in amno s/s of siadh Acute hypokalemia 175763 03 E87.6 improved with supplement current K level 3.4monitor lytes - repeat 05/25 not done, check in am Essential hypertension 54517792 I10 bp stablecont inue lisinopril 5 mg qdmonitor bp and need to titrate Anemia 755470391 D50.8 monitor cbcHgb. 11iron studies prn Chronic ob structive pulmonary disease 79706465 J41.1 carrying dx added to PMHmonitor respirator y statusadva ir inhaler 1 puff po bidalbuter ol for wheezes q 4 prn Osteoporosis 62763592 M8 1.0 hx ofcalcium Neuropathy 807559856 G62 .89 hx ofmonitor sx Mood disorder 14233028 F 34.89 with underlying anxietyati van 0.5 mg bidzoloft 50 mg qdSeen by Psych provider 05/11, no new recommenda tionsMonit or mood, behaviors. Viral gastroenteritis 11 1619274 A08.4 N/V/GI upset x 2-3d.Leonides nue symptomati c treatmentR estEncoura ge fluids, clear liquids, advance as able.Hold laxativesP RN imodium and zofran available as well.BMP in am (not done on 05/25) [id number] MAYDA WHIPPLE NP [facility] [address] [address] 06/03/2024 15:04:46 06/05/2024 09:47:09 Viral gastroenteritis 538335227 A08.4 N/V/GI upset x 2-3d last weekNow resolved. Closed fra cture of left patella 9899306408 6904617 S82.015G prior fall with left knee fxcontACL brace in placePT OT eval and tx.Seen by Ortho 2 wks ago, still no note scanned into EMR. Will request again.Foll ow ortho recs and update with concernstr amadol 50 mg q 8 prnmonitor pain controlfu with ortho [facility] as sched. Unsteady when walking 22 491663 R26.89 NWB LLE till cleared by orthoPT OT eval and treat for deconditio ningmonito r Adult fail ure to thrive syndrome 634314294 R62.7 see HPIshe was not able to be cared for in community with tibia fxmonitor need for increased servicesco ntinue supportive care at facilitymo nitor weights, intake Syndrome o f inappropriate vasopressin secretion 84919473 E22.2 monitor Na and need to adjust fluid restrictio nMost recent level 135 on 05/28no s/s of siadhMonit or labs Acute hypokalemia 780546 03 E87.6 improved with supplement current K level 3.3not on obvious K depleting medsmonito r lytes - repeat in am Essential hypertension 12475158 I10 bp stablecont inue lisinopril 5 mg qdmonitor bp and need to titrate Anemia 420549590 D50.8 monitor cbcHgb. 11iron studies prn Chronic ob structive pulmonary disease 25134609 J41.1 carrying dx added to PMHmonitor respirator y statusadva ir inhaler 1 puff po bidalbuter ol for wheezes q 4 prn Osteoporosis 51957754 M8 1.0 hx ofcontinue calcium Neuropathy 730031044 G62 .89 hx ofmonitor sx Mood disorder 77719245 F 34.89 with underlying anxietyati van 0.5 mg bidzoloft 50 mg qdSeen by Psych provider 05/11, no new recommenda tionsMonit or mood, behaviors. [id number] Radha Hickey NP [facility] [address] [address] 06/05/2024 08:46:02 06/08/2024 14:56:21 Viral gastroenteritis 569944530 A08.4 resolvingN /V/GI upset x 2-3d last week with likely potassium loss related to virus and vomitingNo w resolved. Closed fra cture of left patella 1251612505 6776542 S82.015G prior fall with left knee fxcontACL brace in placePT OT eval and tx.Seen by Ortho 2 wks ago, still no note scanned into EMR. Will request again.Foll ow ortho recs and update with concernstr amadol 50 mg q 8 prnmonitor pain controlfu with ortho [facility] as sched. Unsteady when walking 22 893378 R26.89 NWB LLE till cleared by orthoPT OT eval and treat for deconditio ningmonito r Adult fail ure to thrive syndrome 212092350 R62.7 see HPIshe was not able to be cared for in community with tibia fxmonitor need for increased servicesco ntinue supportive care at facilitymo nitor weights, intake Syndrome o f inappropriate vasopressin secretion 94511754 E22.2 monitor Na and need to adjust fluid restrictio nMost recent level 138 improving from last weekno s/s of siadhMonit or labs Acute hypokalemia 569209 03 E87.6 current K level 3.2 with recent loss for gi virus06/05 start potassium 40 meq x 2 dosesrepea t labs on 2 Chronic ob structive pulmonary disease 74957602 J41.1 carrying dx added to PMHmonitor respirator y statusadva ir inhaler 1 puff po bidalbuter ol for wheezes q 4 prn Mood disorder 56704452 F 34.89 with underlying anxietyati van 0.5 mg bidzoloft 50 mg qdSeen by Psych provider 05/11, no new recommenda tionsMonit or mood, behaviors. Essential hypertension 50748396 I10 bp stablecont inue lisinopril 5 mg qdmonitor bp and need to titrate [id number] [facility] [address] 06/11/2024 11:27:16 06/12/2024 13:49:32 Acute hypokalemia 60126370 E87.6 labs improved on 06/08 with k supplement sp gi virus Viral gastroenteritis 11 9255162 A08.4 resolvedN/ V/GI upset x 2-3d last week with likely potassium loss related to virus and vomitingNo w resolved. Closed fra cture of left patella 2688217566 9531437 S82.015G prior fall with left knee fxcontACL brace in placePT OT eval and tx.Seen by Ortho 2 wks ago, still no note scanned into EMR. Will request again.Foll ow ortho recs and update with concernstr amadol 50 mg q 8 prnmonitor pain controlfu with ortho [facility] as sched. Unsteady when walking 22 806204 R26.89 NWB LLE till cleared by orthoPT OT eval and treat for deconditio ningmonito r Adult fail ure to thrive syndrome 035752189 R62.7 see HPIshe was not able to be cared for in community with tibia fxmonitor need for increased servicesco ntinue supportive care at facilitymo nitor weights, intake Syndrome o f inappropriate vasopressin secretion 38145533 E22.2 monitor Na and need to adjust fluid restrictio nno s/s of siadhMonit or labs as above Chronic ob structive pulmonary disease 11536299 J41.1 carrying dx added to PMHmonitor respirator y statusadva ir inhaler 1 puff po bidalbuter ol for wheezes q 4 prn Mood disorder 11786454 F 34.89 with underlying anxiety, stable hereativan 0.5 mg bidzoloft 50 mg qdSeen by Psych provider 05/11, no new recommenda tionsMonit or mood, behaviors. [id number] MAYDA WHIPPLE NP [facility] [address] [address] 06/17/2024 09:17:58 06/18/2024 13:31:49 Acute hypokalemia 02138515 E87.6 labs improved on 06/08 = 5Continue to monitor Viral gastroenteritis 11 2437363 A08.4 resolved Closed fra cture of left patella 9267724401 1505543 S82.015G prior fall with left knee fxcontACL brace in placePT OT eval and tx.Follow ortho recs and update with concernsNe xt appt. 06/30tramad ol 50 mg q 8 prnmonitor pain control Unsteady when walking 22 467887 R26.89 NWB LLE till cleared by orthoPT OT eval and treat for deconditio ningmonito r Adult fail ure to thrive syndrome 360069463 R62.7 see HPIshe was not able to be cared for in community with tibia fxmonitor need for increased services in prep. for dischargec ontinue supportive care at facilitymo nitor weights, intake Syndrome o f inappropriate vasopressin secretion 39765573 E22.2 monitor Na, currently 136Does not appear to be on a FR at this time.no s/s of siadhMonit or labs Chronic ob structive pulmonary disease 52400207 J41.1 monitor respirator y status - currently stablecont inue:advai r inhaler 1 puff po bidalbuter ol for wheezes q 4 prn Mood disorder 94683745 F 34.89 with underlying anxietyCon tinue:ativ an 0.5 mg bidzoloft 50 mg qdSeen by Psych provider 05/11, no new recommenda tionsMonit or mood, behaviors. Essential hypertension 16851465 I10 VSScontinu e lisinopril 5 mg qdmonitor bp and need to titrate Osteoporosis 41367078 M8 1.0 hx ofcontinue calcium Anemia 090338408 D50.8 monitor cbcHgb. 10.6iron studies prn Neuropathy 199871769 G62 .89 hx ofmonitor sx [id number] Radha Hickey NP [facility] [address] [address] 06/24/2024 10:59:23 06/26/2024 16:05:53 Acute hypokalemia 57112227 E87.6 stablelike ly related to gi viruslabs improved on 06/08 = 5Continue to monitor Viral gastroenteritis 11 8874645 A08.4 resolved Closed fra cture of left patella 3224321789 0998456 S82.015G prior fall with left knee fxcontACL brace in placePT OT eval and tx.Follow ortho recs and update with concernsNe xt appt. 06/30tramad ol 50 mg q 8 prnmonitor pain control Unsteady when walking 22 972645 R26.89 NWB LLE till cleared by orthoPT OT eval and treat for deconditio funmilayo prnmonitor Adult fail ure to thrive syndrome 089627818 R62.7 not able to be cared for in community with tibia fxmonitor need for increased services in prep. for dischargec ontinue supportive care at facilitymo nitor weights, intake Syndrome o f inappropriate vasopressin secretion 57708007 E22.2 monitor Na, labs as aboveDoes not appear to be on a FR at this time.no s/s of siadhMonit or labs Chronic ob structive pulmonary disease 27588567 J41.1 monitor respirator y status - currently stablecont inue:advai r inhaler 1 puff po bidalbuter ol for wheezes q 4 prn Mood disorder 92206045 F 34.89 with underlying anxiety, stable on ativan hereContin ue:ativan 0.5 mg bidzoloft 50 mg qdSeen by Psych provider 05/11, no new recommenda tionsMonit or mood, behaviors. [id number] Rahda Hickey NP [facility] [address] 07/03/2024 07:35:22 07/07/2024 12:51:41 Closed fracture of left patella 4088397973 9327275 S82.015G prior fall with left knee fxcontACL brace in placePT OT eval and tx. prn, currently off therapyFol low ortho recs and update with concernsap pt. 06/30, awaiting progress notetramad ol 50 mg q 8 prnmonitor pain control Unsteady when walking 22 490125 R26.89 NWB LLE till cleared by ortho, awaiting note from ortho 06/30 for recPT OT eval and treat for deconditio funmilayo prnmonitor Adult fail ure to thrive syndrome 401935450 R62.7 doing well here overallnot able to be cared for in community with tibia fxmonitor need for increased services in prep. for dischargec [facility], intake Mood disorder 27552558 F 34.89 with underlying anxiety, stable on ativan hereContin ue:ativan 0.5 mg bidzoloft 50 mg qdSeen by Psych provider 05/11, no new recommenda tionsMonit or mood, behaviors. [id number] HERNESTO ROSALES CNP [address] [address] 07/08/2024 15:41:12 07/09/2024 16:16:40 Closed fracture of left patella 6993045404 3446028 S82.015G prior fall with left knee fxcontACL brace in placePT OT eval and tx. prn, currently off therapyFol low ortho recs and update with concernsap pt. 07/10/24.Fol lowed by Dr. Lucero, recommende d to reduce tramadol 50 mg to daily.siddharth tor pain control Unsteady when walking 22 895457 R26.89 NWB LLE till cleared by ortho, has a follow up appoint on 07/10/24.PT OT eval and treat for deconditio funmilayo prnmonitor Adult fail ure to thrive syndrome 839823725 R62.7 doing well here overallnot able to be cared for in community with tibia fxmonitor need for increased services in prep. for dischargec ontinue supportive care at [facility] nitor weights, intake Mood disorder 36551328 F 34.89 with underlying anxiety, stable on ativan hereContin ue:ativan 0.5 mg bidzoloft 50 mg qdSeen by Psych provider 05/11, no new recommenda tionsMonit or mood, behaviors. Hyponatremia 07731133 E8 7.1 Lab result revealed hyponatrem ia today, 132.Pt is asymptomat ic.Will repeat labs on Sat X1. Health Concerns Section Related Observation LastModified by Organization Detai ls LastModified Time None Recorded Concern Status LastModified by Organization Details LastModified Time None Recorded Advance Directives Directive N: Payers Encounter Date Sequence Insurance Name Policy Number Policy Rock Covered Member ID Rock Member ID Guarantor Name 06/11/2024 1 [place] [employer] Trevon L Lauren [id number] Trevon Lauren 06/11/2024 2 [place] [employer] Trevon Lauren [id number] Trevon Lauren 06/17/2024 1 [place] [employer] Trevon L Lauren [id number] Trevon Lauren 06/17/2024 2 [place] [employer] Trevon Lauren [id number] Trevon Lauren 06/24/2024 1 [place] [employer] Trevon L Lauren [id number] Trevon Lauren 06/24/2024 2 [place] [employer] Trevon Lauren [id number] Trevon Lauren 07/03/2024 1 [place] [employer] Trevon L Lauren [id number] Trevon Lauren 07/03/2024 2 [place] Trevon Lauren [id number] Trevon Lauren 07/08/2024 1 [place] [employer] Trevon L Lauren [id number] Trevon Lauren 07/08/2024 2 [place] Trevon Lauren [id number] Trevon Lauren Notes Date Note Type Note Provider Name and Address Organization Details Recorded Time 06/11/2024 text/html Pt Trevon seen f or an acute visit. PMH significant for siadh, htn,anemia,copd,osteo porosis,neuropathy,mo od disorder NOS She is a 73 yo lady, who presented to the hospital with left knee pain and inability to be cared for in community. Patient had fall in Nov resulting in left knee fx here for rehab. Had GI virus now resolved. Potassium needed replacement last week now stable. On exam, Trevon is sitting up in a chair in NAD. She reports her breathing is improving and much better with inhaler. She continues to work with therapy and getting stronger. She denies any pain or concerns today. Diarrhea, nausea and vomiting resolved. Note:She was discharged from outside SNF 2 weeks prior. Patient [...] cleared by ortho. Radha Hickey, SHEBA [address] [facility], [address], [place], [address], [facility] 06/12/2024 10:01:36 06/17/2024 text/html Trevon is seen t richie for an acute visit. She is a 73 yo lady, admitted to [facility] from the hospital for continued care and [...] with low K - repleted, last check 2 = 5VSS Case discussed with staff, no new issues or concerns. Upon exam, Trevon is up in her w/c, alert, NAD. In good spirits, just finished breakfast. Appetite good, denies any complaints today. PMH significant for siadh, htn,anemia,copd,osteo porosis,neuropathy,mo od disorder NOS MAYDA WHIPPLE, SHEBA [address] [facility], [address], [place], [address], [facility] 06/17/2024 09:33:53 06/24/2024 text/html Trevon is seen t richie for an acute rounding visit PMH significant for siadh, htn,anemia,copd,osteo porosis,neuropathy,mo od disorder NOS Trevon is a 73 yo f, here for rehab and continued care after hospitalization for FTT and left knee fx. She had follow up with Ortho, continues to wear LLE brace on 05/19/24.She continues to work with rehab, making some gains. Leg pain overall improved, denies pain today.Had a viral gastroenteritis a few weeks ago and now resolved.Next appt. 06/30. On exam, pt is sitting up in a chair in NAD. Appetite good, denies any complaints or concerns. She is currently off therapy. She plans to go home eventually with sister to help as she prior lived alone. of note; She presented with left knee [...] cleared by ortho. Radha Hickey, SHEBA [address] [facility], [address], [place], [address], [facility] 06/24/2024 14:50:41 07/03/2024 text/html Pt is seen today for [...] Trevon is motoring in a wheelchair in NAD. Leg pain overall improved, denies pain today. [...] cleared by ortho. Radha Hickey, SHEBA [address] [facility], [address], [place], [address], [facility] 07/03/2024 18:35:46 07/08/2024 text/html Pt is seen today for an acute rounding visit PMH significant for siadh,htn,anemia,copd ,osteoporosis,neuropa thy,mood disorder NOS She is a 73 yo f, here for rehab and continued care after hospitalization for FTT and left knee fx. She continues to wear LLE brace on 05/19/24. She is not working with therapy currently as her goals were met per notes. Ortho follow up rescheduled on 07/10/24.She followed by Dr. Lucero and recommended to decrease tramadol 50 mg to q daily. On exam, Trevon is motoring in a wheelchair in NAD. Denies leg pain today. Pt reports she takes tramadol occasionally. She is eating, drinking, and moving bowels [...] x 3 months till cleared by ortho. HERNESTO ROSALES, COUNSELOR MARRIAGE AND FAMILY [address] [facility], [address], [place], [address], [facility] - [facility] 07/08/2024 16:10:11 OBGyn Episode No OBEpisode recorded.
--- OUTSIDE RECORDS SUMMARY | 2024-07-10 12:41 | XMS_ITS | Encounter Summary ---
Author Organization [facility] Address [address] [place] [address] Care Team Providers Care Laminate Floor Installer Name Role Phone Alan Chanel MD Primary Care Provider Encounter Details Date Type Department Care Team (Late st Contact Info) Description 05/11/2024 Lab Requisition [facility] - Main Lab [address] [place] [address] Kenny Malave MD [address] [facility] [address] [place], [address] Essential (primary) hypertension Social History Tobacco [...] LAB CHEMISTRY METHOD 05/12/2024 9:30 AM EST [facility] Potassium 4.0 3.5 - 5.5 mmol/L LAB CHEMISTRY METHOD 05/12/2024 9:30 AM EST [facility] Chloride 101 96 - 110 [...] MD LAB BLOOD ORDERABLES Final Resul t [facility] [address] [place] [address], * (ABNORMAL) Complete blood count (05/12/2024 5:47 [...] Final Resul t [facility] ([facility]) [facility] [address] [place] [address], [place] [phone] documented in this encounter Visit Diagnoses Diagnosis Essential (primary) hypertension Unspecified essential hypertension documented in this encounter Care Teams Laminate Floor Installer Relationship Specialty Start Date End Date Alan Chanel MD [address] [place] [address] Dr [address] [place], [place] PCP - General Internal Medicine 03/12/24 documented as of this encounter
--- OUTSIDE RECORDS SUMMARY | 2024-07-10 12:41 | XMS_ITS | Encounter Summary ---
Author Organization [facility] Address [address] [place] [address] Care Team Providers Care Backup Sawyer Name Role Phone Alan Chanel MD Primary Care Provider Encounter Details Date Type Department Care Team (Late st Contact Info) Description 04/14/[address] [facility] - Main Lab [address] [facility] [place] [address] Ever Reyna MD [address] [place] [address] Encounter for other general examination Social History [...] LAB CHEMISTRY METHOD 04/14/2024 11:19 AM EST [facility] ([facility]) [facility] Blood Venous blood specimen / Unknown Venipuncture / Unknown 04/14/2024 4:35 AM EST 04/14/2024 9:55 AM EST us Adnan M Dahdul MD LAB BLOOD ORDERABLES Final Res ult [facility] [address] [place] [address], * (ABNORMAL) Basic metabolic panel (04/14/2024 4:35 AM EST) Sodium 128(L) 133 - 145 mmol/L LAB CHEMISTRY METHOD 04/14/2024 10:39 AM [facility] Potassium 4.3 3.5 - 5.5 mmol/L LAB CHEMISTRY METHOD 04/14/2024 10:39 AM [facility] Chloride 91(L) 96 - 110 mmol/L LAB CHEMISTRY METHOD 04/14/2024 10:39 AM [facility] CO2 26 21 - 32 mmol/L LAB CHEMISTRY METHOD 04/14/2024 10:39 AM [facility] Anion Gap 11 3 - 11 LAB CHEMISTRY METHOD 04/14/2024 10:39 AM [facility] Glucose 71 70 - 100 mg/dL LAB CHEMISTRY METHOD 04/14/2024 10:39 AM [facility] BUN 14 5 - 25 mg/dL LAB CHEMISTRY METHOD 04/14/2024 10:39 AM [facility] Creatinine 0.60(L) 0.70 - 1.30 mg/dL LAB CHEMISTRY METHOD 04/14/2024 10:39 AM [facility] eGFR 101 >=60 mL/min/1. 73m2 LAB CHEMISTRY METHOD 04/14/2024 10:39 AM [facility] Comment:Calculation based on the??Chronic Kidney Disease Epidemiology Collaboration (CKD-EPI) equation refit??without adjustment for race. BUN/Creatinine Ratio 23.3 LAB CHEMISTRY METHOD 04/14/2024 10:39 AM [facility] Calcium 9.4 8.5 - 10.5 mg/dL LAB CHEMISTRY METHOD 04/14/2024 10:39 AM EST [facility] Blood Venous blood specimen / Unknown Venipuncture / Unknown 04/14/2024 4:35 AM EST 04/14/2024 9:55 AM EST us Ever Reyna MD LAB BLOOD ORDERABLES Final Res ult [facility] [address] [place] [address], documented in this encounter Visit Diagnoses Diagnosis Encounter for other general examination documented in this encounter Care Teams Backup Sawyer Relationship Specialty Start Date End Date Alan Chanel MD [address] [place] [address] Dr [address] PCP - General Internal Medicine 03/12/24 documented as of this encounter
--- OUTSIDE RECORDS SUMMARY | 2024-07-10 12:41 | XMS_ITS | Continuity of Care Document ---
Author Organization [facility] Address [address] [place] [address] Care Team Providers Care Plant Inspector Name Role Phone DANIEL PETER - 2ND [...] Recorded Time Adult failure to thrive syndrome 639112411 Active 2023 Kenny Malave MD [address] [facility], [facility] [address], [place], [address], [facility] 13:42:50 Syndrome of inappropria te vasopressin secretion 57123790 Active 2023 Kenny Malave MD [address] [place] [address], [address], [place], [address], [facility] 13:42:57 Unsteady when walking 26536470 Active 2023 Kenny Malave MD [address] [place] [address], [address], [place], [address], [facility] 13:43:03 Essential hypertensio n 06309546 Active 2023 Kenny Malave MD [address] [place] [address], [address], [place], [address], [facility] 13:43:09 Anemia 389168317 Active 2023 Kenny Malave MD [address], [address], [place], [address], [facility] 4 13:43:14 Chronic obstructive pulmonary disease 76959375 Active 2023 Kenny Malave MD [address], [address], [place], [address], [facility] 4 13:43:19 Osteoporosi s 93226509 Active 2023 Kenny Malave MD [address], [address], [place], [address], [facility] 4 13:43:27 Neuropathy 482613211 Active 2023 Kenny Malave MD [address] [facility], [address], [place], [address], [facility] 4 13:43:33 Mood disorder 09697551 Active 2023 Kenny Malave MD [address] [facility], [address], [place], [address], [facility] 4 13:43:41 Closed fracture of left patella 4881439588793 9105 Active 2023 Kenny Malave MD [address] [facility], [address], [place], [address], [facility] 4 13:44:22 Hearing loss 99753131 Active 2023 Kenny Malave MD [address] [facility], [address], [place], [address], [facility] 4 13:56:41 Problem Notes None recorded. Medical Equipment None Reported. Allergies No known drug allergies Medications Not known to be on any medication Vitals Date Recorded Body weight Heart rate Respiratory rate Body temperature Oxygen saturation Oxygen saturation in Arterial blood by Pulse oximetry Systolic blood pressure Diastolic blood pressure Provider Name and Address Organization Details Last Updated DateTime 5 81092.9 6 g 76 /min 16 /min 98 [degF] 99 % 99 % 110 mm[Hg] 63 mm[Hg] HERNESTO ROSALES CNP [address] [facility], [address], [place], [address], [facility] 5 15:45:39 Social History Question Answer Notes LastModified by Organizat ion Details LastModified Time Tobacco Smoking Status Former Smoker 2 ppd smoker quit early 2023 Kenny Malave MD [address] [facility], [address], [place], [address], [facility] 04/28/2024 13:58:17 Do You Have An Advance [...] Recorded Time Tdap 6 completed Joann Blum [facility] 05/05/2024 16:34:17 pneumococcal polysaccharide PPV23 6 completed Joann Blum [facility] 05/05/2024 16:34:32 influenza, unspecified formulation 4 completed Joann Blum [facility] 05/05/2024 16:34:49 influenza, unspecified formulation 3 completed Joann Blum [facility] 05/05/2024 16:34:56 influenza, unspecified formulation 2 completed Joann Blum [facility] 05/05/2024 16:35:02 Past Encounters Encounter ID Performer Location Encounter Start Date Encounter Closed Date Diagnosis/Indication Diagnosis SNOMED-CT Code Diagnosis ICD10 Code Diagnosis Note [id number] Radha Hickey NP [address] [address] 06/11/2024 11:27:16 06/12/2024 13:49:32 Acute hypokalemia 51636082 E87.6 labs improved on 06/08 with k supplement sp gi virus Viral gastroenteritis 11 7170181 A08.4 resolvedN/ V/GI upset x 2-3d last week with likely potassium loss related to virus and vomitingNo w resolved. Closed fra cture of left patella 6309176070 1136982 S82.015G prior fall with left knee fxcontACL brace in placePT OT eval and tx.Seen by Ortho 2 wks ago, still no note scanned into EMR. Will request again.Foll ow ortho recs and update with concernstr amadol 50 mg q 8 prnmonitor pain controlfu with ortho [facility] as sched. Unsteady when walking 22 250434 R26.89 NWB LLE till cleared by orthoPT OT eval and treat for deconditio ningmonito r Adult fail ure to thrive syndrome 113505405 R62.7 see HPIshe was not able to be cared for in community with tibia fxmonitor need for increased servicesco ntinue supportive care at facilitymo nitor weights, intake Syndrome o f inappropriate vasopressin secretion 05923376 E22.2 monitor Na and need to adjust fluid restrictio nno s/s of siadhMonit or labs as above Chronic ob structive pulmonary disease 93143357 J41.1 carrying dx added to PMHmonitor respirator y statusadva ir inhaler 1 puff po bidalbuter ol for wheezes q 4 prn Mood disorder 69742959 F 34.89 with underlying anxiety, stable hereativan 0.5 mg bidzoloft 50 mg qdSeen by Psych provider 05/11, no new recommenda tionsMonit or mood, behaviors. [id number] [facility] [address] 06/17/2024 09:17:58 06/18/2024 13:31:49 Acute hypokalemia 28476846 E87.6 labs improved on 06/08 = 5Continue to monitor Viral gastroenteritis 11 0959480 A08.4 resolved Closed fra cture of left patella 9910526196 3568668 S82.015G prior fall with left knee fxcontACL brace in placePT OT eval and tx.Follow ortho recs and update with concernsNe xt appt. 2tramad ol 50 mg q 8 prnmonitor pain control Unsteady when walking 22 437690 R26.89 NWB LLE till cleared by orthoPT OT eval and treat for deconditio ningmonito r Adult fail ure to thrive syndrome 565497939 R62.7 see HPIshe was not able to be cared for in community with tibia fxmonitor need for increased services in prep. for dischargec ontinue supportive care at facilitymo nitor weights, intake Syndrome o f inappropriate vasopressin secretion 70239909 E22.2 monitor Na, currently 136Does not appear to be on a FR at this time.no s/s of siadhMonit or labs Chronic ob structive pulmonary disease 56915312 J41.1 monitor respirator y status - currently stablecont inue:advai r inhaler 1 puff po bidalbuter ol for wheezes q 4 prn Mood disorder 35099061 F 34.89 with underlying anxietyCon tinue:ativ an 0.5 mg bidzoloft 50 mg qdSeen by Psych provider 05/11, no new recommenda tionsMonit or mood, behaviors. Essential hypertension 17445220 I10 VSScontinu e lisinopril 5 mg qdmonitor bp and need to titrate Osteoporosis 20762992 M8 1.0 hx ofcontinue calcium Anemia 846353559 D50.8 monitor cbcHgb. 10.6iron studies prn Neuropathy 967731729 G62 .89 hx ofmonitor sx [id number] [facility] [address] 06/24/2024 10:59:23 06/26/2024 16:05:53 Acute hypokalemia 01777586 E87.6 stablelike ly related to gi viruslabs improved on 2/ = 5Continue to monitor Viral gastroenteritis 11 2347906 A08.4 resolved Closed fra cture of left patella 3681653548 6106737 S82.015G prior fall with left knee fxcontACL brace in placePT OT eval and tx.Follow ortho recs and update with concernsNe xt appt. 2tramad ol 50 mg q 8 prnmonitor pain control Unsteady when walking 22 568435 R26.89 NWB LLE till cleared by orthoPT OT eval and treat for deconditio funmilayo prnmonitor Adult fail ure to thrive syndrome 316724142 R62.7 not able to be cared for in community with tibia fxmonitor need for increased services in prep. for dischargec ontinue supportive care at facilitymo nitor weights, intake Syndrome o f inappropriate vasopressin secretion 51974526 E22.2 monitor Na, labs as aboveDoes not appear to be on a FR at this time.no s/s of siadhMonit or labs Chronic ob structive pulmonary disease 47367422 J41.1 monitor respirator y status - currently stablecont inue:advai r inhaler 1 puff po bidalbuter ol for wheezes q 4 prn Mood disorder 07199029 F 34.89 with underlying anxiety, stable on ativan hereContin ue:ativan 0.5 mg bidzoloft 50 mg qdSeen by Psych provider 05/11, no new recommenda tionsMonit or mood, behaviors. [id number] Rad[facility]ic[facility] [address] 07/03/2024 07:35:22 07/07/2024 12:51:41 Closed fracture of left patella 7248338848 1843752 S82.015G prior fall with left knee fxcontACL brace in placePT OT eval and tx. prn, currently off therapyFol low ortho recs and update with concernsap pt. 06/30, awaiting progress notetramad ol 50 mg q 8 prnmonitor pain control Unsteady when walking 22 150837 R26.89 NWB LLE till cleared by ortho, awaiting note from ortho 06/30 for recPT OT eval and treat for deconditio funmilayo prnmonitor Adult fail ure to thrive syndrome 473215404 R62.7 doing well here overallnot able to be cared for in community with tibia fxmonitor need for increased services in prep. for dischargec ontinue supportive care at facilitymo nitor weights, intake Mood disorder 76201313 F 34.89 with underlying anxiety, stable on ativan hereContin ue:ativan 0.5 mg bidzoloft 50 mg qdSeen by Psych provider 05/11, no new recommenda tionsMonit or mood, behaviors. [id number] HERNESTO ROSALES, TIANNA [address] [address] 07/08/2024 15:41:12 07/09/2024 16:16:40 Closed fracture of left patella 4664473862 4048775 S82.015G prior fall with left knee fxcontACL brace in placePT OT eval and tx. prn, currently off therapyFol low ortho recs and update with concernsap pt. 07/10/24.Fol lowed by Dr. Lucero, recommende d to reduce tramadol 50 mg to daily.siddharth tor pain control Unsteady when walking 22 627914 R26.89 NWB LLE till cleared by ortho, has a follow up appoint on 07/10/24.PT OT eval and treat for deconditio funmilayo prnmonitor Adult fail ure to thrive syndrome 968623775 R62.7 doing well here overallnot able to be cared for in community with tibia fxmonitor need for increased services in prep. for [facility]c [facility], intake Mood disorder 91924995 F 34.89 with underlying anxiety, stable on ativan hereContin ue:ativan 0.5 mg bidzoloft 50 mg qdSeen by Psych provider 05/11, no new recommenda tionsMonit or mood, behaviors. Hyponatremia 64988724 E8 7.1 Lab result revealed hyponatrem ia today, 132.Pt is asymptomat ic.Will repeat labs on Sat X1. Health Concerns Section Related Observation LastModified by Organization Detai ls LastModified Time None Recorded Concern Status LastModified by Organization Details LastModified Time None Recorded Payers Encounter Date Sequence Insurance Name Policy Number Policy Rock Covered Member ID Rock Member ID Guarantor Name 07/08/2024 1 [place] [employer] Trevon Yeagerx [id number] Trevon Aguilar 07/08/2024 2 [place] [facility] Trevon Yeagerx [id number] Trevon Aguilar Notes Date Note Type Note Provider Name and Address Organization Details Recorded Time 07/08/2024 text/html Pt is seen today for [...] Trevon is motoring in a wheelchair in [facility]. Denies leg pain today. Pt reports she [...] months till cleared by ortho. HERNESTO ROSALES, MANAGER STATISTICAL PROGRAMMING [address] [facility], [address], [place], [address], [facility] - [employer] 07/08/2024 16:10:11 OBGyn Episode No OBEpisode recorded.
--- OUTSIDE RECORDS SUMMARY | 2024-07-10 12:41 | XMS_ITS | Encounter Summary ---
Author Organization [facility] Address [address] [place] [address] Care Team Providers Care Perinatal Breastfeeding Assistant Name Role Phone Alan Chanel MD Primary Care Provider Encounter Details Date Type Department Care Team (Late st Contact Info) Description 07/08/2024 Lab Requisition [facility] - Main Lab [address] [place] [address] Kenny Malave MD 38 [facility] [address] [place], [phone] Anemia, unspecified; Chronic obstructive pulmonary disease, [...] mg/dL LAB CHEMISTRY METHOD 07/08/2024 2:39 PM [facility] Blood Venous blood specimen / Unknown Venipuncture / Unknown 07/08/2024 6:23 AM EST 07/08/2024 10:53 AM EST us Kenny Malave MD LAB BLOOD ORDERABLES Final Resul t [facility] [address] [place] [address], [place] [phone] * (ABNORMAL) Comprehensive metabolic panel (07/08/2024 6:23 AM EST) Sodium 132(L) 133 - 145 mmol/L LAB CHEMISTRY METHOD 07/08/2024 2:39 PM [facility] Potassium 4.7 3.5 - 5.5 mmol/L LAB CHEMISTRY METHOD 07/08/2024 2:39 PM [facility] Chloride 98 96 - 110 mmol/L LAB CHEMISTRY METHOD 07/08/2024 2:39 PM [facility] CO2 23 21 - 32 mmol/L LAB CHEMISTRY METHOD 07/08/2024 2:39 PM [facility] Anion Gap 11 3 - 11 LAB CHEMISTRY METHOD 07/08/2024 2:39 PM [facility] Glucose 72 70 - 100 mg/dL LAB CHEMISTRY METHOD 07/08/2024 2:39 PM [facility] BUN 16 5 - 25 mg/dL LAB CHEMISTRY METHOD 07/08/2024 2:39 PM [facility] Creatinine 0.61 0.50 - 1.10 mg/dL LAB CHEMISTRY METHOD 07/08/2024 2:39 PM [facility] eGFR 94 >=60 mL/min/1. 73m2 LAB CHEMISTRY METHOD 07/08/2024 2:39 PM [facility] Comment:Calculation based on the??Chronic Kidney Disease Epidemiology Collaboration (CKD-EPI) equation refit??without adjustment for race. BUN/Creatinine Ratio 26.2 LAB CHEMISTRY METHOD 07/08/2024 2:39 PM [facility] Calcium 9.5 8.5 - 10.5 mg/dL LAB CHEMISTRY METHOD 07/08/2024 2:39 PM [facility] AST (SGOT) 28 10 - 42 unit/L LAB CHEMISTRY METHOD 07/08/2024 2:39 PM [facility] ALT (SGPT) 22 10 - 60 unit/L LAB CHEMISTRY METHOD 07/08/2024 2:39 PM [facility] Alkaline Phosphatase 79 42 - 121 unit/L LAB CHEMISTRY METHOD 07/08/2024 2:39 PM [facility] Total Protein 7.2 6.0 - 8.0 g/dL LAB CHEMISTRY METHOD 07/08/2024 2:39 PM [facility] Albumin 3.5 3.2 - 5.0 g/dL LAB CHEMISTRY METHOD 07/08/2024 2:39 PM [facility] Total Bilirubin 0.2 0.0 - 1.4 mg/dL LAB CHEMISTRY METHOD 07/08/2024 2:39 PM [facility] Blood Venous blood specimen / Unknown Venipuncture / Unknown 07/08/2024 6:23 AM EST 07/08/2024 10:53 AM EST us Kenny Malave MD LAB BLOOD ORDERABLES Final Resul t [facility] [address] [place] [address], * (ABNORMAL) Complete blood count (07/08/2024 6:23 AM EST) WBC 6.5 4.8 - 10.8 K/mcL LAB HEMETOLOGY METHOD 07/08/2024 11:24 AM EST [facility] RBC 3.90 3.80 - 4.80 M/mcL LAB HEMETOLOGY METHOD 07/08/2024 11:24 AM [facility] Hemoglobin 11.1(L) 11.5 - 16.0 g/dL LAB HEMETOLOGY METHOD 07/08/2024 11:24 AM [facility] Hematocrit 33.8(L) 35.0 - 47.0 % LAB HEMETOLOGY METHOD 07/08/2024 11:24 AM [facility] MCV 86.7 79.0 - 98.0 FL LAB HEMETOLOGY METHOD 07/08/2024 11:24 AM [facility] MCH 28.5 27.0 - 32.0 pcg LAB HEMETOLOGY METHOD 07/08/2024 11:24 AM [facility] MCHC 32.8 32.0 - 37.0 g/dL LAB HEMETOLOGY METHOD 07/08/2024 11:24 AM [facility] RDW 17.4(H) 11.0 - 15.0 % LAB HEMETOLOGY METHOD 07/08/2024 11:24 AM [facility] Platelets 500(H) 130 - 400 K/mcL LAB HEMETOLOGY METHOD 07/08/2024 11:24 AM [facility] MPV 8.2 7.0 - 11.0 FL LAB HEMETOLOGY METHOD 07/08/2024 11:24 AM [facility] NRBC 0.0 <1.0 % LAB HEMETOLOGY METHOD 07/08/2024 11:24 AM [facility] NRBC Absolute 0.00 <0.10 K/mcL LAB HEMETOLOGY METHOD 07/08/2024 11:24 AM [facility] Blood Venous blood specimen / Unknown Venipuncture / Unknown 07/08/2024 6:23 AM EST 07/08/2024 10:53 AM EST us Kenny Malave MD LAB BLOOD ORDERABLES Final Resul t [facility] ([facility]) [facility] [address] [place] [address], documented in this encounter Visit Diagnoses Diagnosis Anemia, unspecified Chronic obstructive pulmonary disease, unspecified (CMS/HCC) documented in this encounter Care Teams Perinatal Breastfeeding Assistant Relationship Specialty Start Date End Date Alan Chanel MD [address] [place] [address] Dr [address] [place] PCP - General Internal Medicine 03/12/24 documented as of this encounter
--- OUTSIDE RECORDS SUMMARY | 2024-07-10 12:41 | XMS_ITS | Encounter Summary ---
Author Organization [facility] Address [address] [place] [address] Care Team Providers Care Principal Planner Name Role Phone Alan Chanel MD Primary Care Provider [phone] Encounter Details Date Type Department Care Team (Late st Contact Info) Description 05/28/[address] [facility] - Main Lab [address] [place] [address] Kenny Malave MD 38 [facility] [address] [place], [address] Polyneuropathy, unspecified; Unspecified protein-calorie malnutrition (CMS/HCC); [...] LAB CHEMISTRY METHOD 05/28/2024 9:40 AM EST [facility] Potassium 3.3(L) 3.5 - 5.5 mmol/L [...] MD LAB BLOOD ORDERABLES Final Resul t [facility] [address] [place] [address], documented in this encounter Visit Diagnoses Diagnosis Polyneuropathy, unspecified Unspecified protein-calorie malnutrition (CMS/HCC) Unspecified protein-calorie malnutrition Chronic obstructive pulmonary disease, unspecified (CMS/HCC) documented in this encounter Care Teams Principal Planner Relationship Specialty Start Date End Date Alan Chanel MD [address] [place] [address] Dr [address] [place] PCP - General Internal Medicine 03/12/24 documented as of this encounter
--- OUTSIDE RECORDS SUMMARY | 2024-07-10 12:41 | XMS_ITS | Encounter Summary ---
Author Organization [facility] Address [address] [place] [address] Care Team Providers Care Bilingual Recruiter Name Role Phone Alan Chanel MD Primary Care Provider Encounter Details Date Type Department Care Team (Late st Contact Info) Description 04/20/2024 Lab Requisition [facility] - Main Lab [address] [place] [address] Ever Reyna MD [address] [place] [id number] Encounter for other general examination Social History [...] AM EST) WBC 3.3(L) 4.8 - 10.8 K/[facility] LAB HEMETOLOGY METHOD 04/20/2024 9:17 AM EST [facility] RBC 4.20(L) 4.50 - 5.50 M/[facility] LAB HEMETOLOGY METHOD 04/20/2024 9:17 AM EST [facility] Hemoglobin 11.7(L) 13.5 - 17.5 g/dL LAB HEMETOLOGY METHOD 04/20/2024 9:17 AM [facility] Hematocrit 35.0(L) 42.0 - 54.0 % LAB HEMETOLOGY METHOD 04/20/2024 9:17 AM [facility] MCV 83.7 79.0 - 98.0 FL LAB HEMETOLOGY METHOD 04/20/2024 9:17 AM [facility] MCH 28.0 27.0 - 32.0 pcg LAB HEMETOLOGY METHOD 04/20/2024 9:17 AM [facility] MCHC 33.4 32.0 - 37.0 g/dL LAB HEMETOLOGY METHOD 04/20/2024 9:17 AM [facility] RDW 13.3 11.0 - 15.0 % LAB HEMETOLOGY METHOD 04/20/2024 9:17 AM [facility] Platelets 437(H) 130 - 400 K/mcL LAB HEMETOLOGY METHOD 04/20/2024 9:17 AM [facility] MPV 8.3 7.0 - 11.0 FL LAB HEMETOLOGY METHOD 04/20/2024 9:17 AM [facility] NRBC 0.0 <1.0 % LAB HEMETOLOGY METHOD 04/20/2024 9:17 AM [facility] NRBC Absolute 0.00 <0.10 K/mcL LAB HEMETOLOGY METHOD 04/20/2024 9:17 AM [facility] Blood Venous blood specimen / Unknown Venipuncture / Unknown 04/20/2024 5:20 AM EST 04/20/2024 8:31 AM EST us Ever Reyna MD LAB BLOOD ORDERABLES Final Res ult [facility] [address] [place] [address], * (ABNORMAL) Comprehensive metabolic panel (04/20/2024 5:20 AM EST) Sodium 128(L) 133 - 145 mmol/L LAB CHEMISTRY METHOD 04/20/2024 10:20 AM [facility] Potassium 4.0 3.5 - 5.5 mmol/L LAB CHEMISTRY METHOD 04/20/2024 10:20 AM [facility] Chloride 90(L) 96 - 110 mmol/L LAB CHEMISTRY METHOD 04/20/2024 10:20 AM [facility] CO2 25 21 - 32 mmol/L LAB CHEMISTRY METHOD 04/20/2024 10:20 AM [facility] Anion Gap 13(H) 3 - 11 LAB CHEMISTRY METHOD 04/20/2024 10:20 AM [facility] Glucose 79 70 - 100 mg/dL LAB CHEMISTRY METHOD 04/20/2024 10:20 AM [facility] BUN 11 5 - 25 mg/dL LAB CHEMISTRY METHOD 04/20/2024 10:20 AM [facility] Creatinine 0.65(L) 0.70 - 1.30 mg/dL LAB CHEMISTRY METHOD 04/20/2024 10:20 AM [facility] eGFR 99 >=60 mL/min/1. 73m2 LAB CHEMISTRY METHOD 04/20/2024 10:20 AM [facility] Comment:Calculation based on the??Chronic Kidney Disease Epidemiology Collaboration (CKD-EPI) equation refit??without adjustment for race. BUN/Creatinine Ratio 16.9 LAB CHEMISTRY METHOD 04/20/2024 10:20 AM [facility] Calcium 9.1 8.5 - 10.5 mg/dL LAB CHEMISTRY METHOD 04/20/2024 10:20 AM [facility] AST (SGOT) 309(H) 10 - 42 unit/L LAB CHEMISTRY METHOD 04/20/2024 10:20 AM [facility] ALT (SGPT) 248(H) 10 - 60 unit/L LAB CHEMISTRY METHOD 04/20/2024 10:20 AM [facility] Alkaline Phosphatase 209(H) 42 - 121 unit/L LAB CHEMISTRY METHOD 04/20/2024 10:20 AM [facility] Total Protein 6.4 6.0 - 8.0 g/dL LAB CHEMISTRY METHOD 04/20/2024 10:20 AM [facility] Albumin 3.1(L) 3.2 - 5.0 g/dL LAB CHEMISTRY METHOD 04/20/2024 10:20 AM [facility] Total Bilirubin 0.3 0.0 - 1.4 mg/dL LAB CHEMISTRY METHOD 04/20/2024 10:20 AM [facility] Blood Venous blood specimen / Unknown Venipuncture / Unknown 04/20/2024 5:20 AM EST 04/20/2024 8:31 AM EST us Ever Reyna MD LAB BLOOD ORDERABLES Final Res ult [facility] [address] [place] [address], documented in this encounter Visit Diagnoses Diagnosis Encounter for other general examination documented in this encounter Care Teams Bilingual Recruiter Relationship Specialty Start Date End Date Alan Chanel MD [address] [facility] [address] [place] PCP - General Internal Medicine 03/12/24 documented as of this encounter
--- OUTSIDE RECORDS SUMMARY | 2024-07-10 12:41 | XMS_ITS | Continuity of Care Document ---
Author Organization [facility], [facility] Address [address] [place] [address] Care Team Providers Care Neonatal Nurse Name Role Phone DANIEL PETER - 2ND [...] Recorded Time Adult failure to thrive syndrome [id number] Active 2023 Kenny Malave MD [address] [facility], [facility] [address], [address], [facility] 13:42:50 Syndrome of inappropria te vasopressin secretion 65443866 Active 2023 Kenny Malave MD [address] [place] [address], [address], [place], [address], [facility] 13:42:57 Unsteady when walking 73037167 Active 2023 Kenny Malave MD [address] [place] [address], [address], [place], [address], [facility] 13:43:03 Essential hypertensio n 63407905 Active 2023 Kenny Malave MD [address] [place] [address], [address], [place], [address], [facility] 13:43:09 Anemia 251098835 Active 2023 Kenny Malave MD [address], [address], [place], [address], [facility] 13:43:14 Chronic obstructive pulmonary disease 00413236 Active 2023 Kenny Malave MD [address], [address], [place], [address], [facility] 13:43:19 Osteoporosi s 86378628 Active 2023 Kenny Malave MD [address], [address], [place], [address], [facility] 13:43:27 Neuropathy 778368218 Active 2023 Kenny Malave MD [address] [facility], [address], [place], [address], [facility] 4 13:43:33 Mood disorder 95527393 Active 2023 Kenny Malave MD [address] [facility], [address], [place], [address], [facility] 4 13:43:41 Closed fracture of left patella [id number] 9105 Active 2023 Kenny Malave MD [address] [facility], [address], [place], [address], [facility] 4 13:44:22 Hearing loss 10785403 Active 2023 Kenny Malave MD [address] [facility], [address], [place], [address], [facility] 4 13:56:41 Problem Notes None recorded. [...] mm[Hg] 66 mm[Hg] MAYDA WHIPPLE NP [address] [facility], [address], [place], [address], [facility] 5 09:22:53 Social History Question Answer Notes LastModified by Organizat ion Details LastModified Time Tobacco Smoking Status Former Smoker 2 ppd smoker quit early 2023 Kenny Malave MD [address] [facility], [address], [place], [address], [facility] 04/28/2024 13:58:17 Do You Have An Advance Directive? No Information not available 04/28/2024 What Is Your Level Of Alcohol Consumption? None Information not available 04/28/2024 What Is Your Code Status? DNI [email or web address] Information not available 04/30/2024 How Much Tobacco [...] Recorded Time Tdap 6 completed [facility] 05/05/2024 16:34:17 pneumococcal polysaccharide PPV23 6 completed [facility] 05/05/2024 16:34:32 influenza, unspecified formulation 4 completed [facility] 05/05/2024 16:34:49 influenza, unspecified formulation 3 completed [facility] 05/05/2024 16:34:56 influenza, unspecified formulation 2 completed [facility] 05/05/2024 16:35:02 Past Encounters Encounter ID Performer Location Encounter Start Date Encounter Closed Date Diagnosis/Indication Diagnosis SNOMED-CT Code Diagnosis ICD10 Code Diagnosis Note [id number] MAYDA WHIPPLE NP [address] [address] 05/20/2024 12:54:44 05/22/2024 14:28:37 Closed fracture of left patella [id number] 6049278 S82.015G prior fall with left knee fxcontACL brace in placePT OT eval and tx.NWB till cleared by ortho - seen yesterday, get consult note to reviewfoll ow ortho recs and update with concernstr amadol 50 mg q 8 prnmonitor pain controlfu with ortho [facility] as sched. Unsteady when walking 22 523271 R26.89 NWB LLE till cleared by orthoPT OT eval and treat for deconditio ningmonito r Adult fail ure to thrive syndrome 854658637 R62.7 see HPIshe was not able to be cared for in community with tibia fxmonitor need for increased servicesco ntinue supportive care at facilitydi etary to evalmonito r weights Syndrome o f inappropriate vasopressin secretion 76700756 E22.2 monitor Na and need to adjust fluid restrictio nCurrent Na level 134, repeat x 1 05/25no s/s of siadh Acute hypokalemia 277921 03 E87.6 improved with supplement current K level 3.4monitor lytes - repeat 05/25 Essential hypertension 50947329 I10 bp stablecont inue lisinopril 5 mg qdmonitor bp and need to titrate Anemia 665698477 D50.8 monitor cbcHgb. 11iron studies prn Chronic ob structive pulmonary disease 96675831 J41.1 carrying dx added to PMHmonitor respirator y statusadva ir inhaler 1 puff po bidalbuter ol for wheezes q 4 prn Osteoporosis 75556661 M8 1.0 hx ofcalcium Neuropathy 853379273 G62 .89 hx ofmonitor sx Mood disorder 21478872 F 34.89 with underlying anxietyati van 0.5 mg bidzoloft 50 mg qdSeen by Psych provider 05/11, no new recommenda tionsMonit or mood, behaviors. [id number] [facility] [address] 05/27/2024 14:06:34 05/28/2024 10:49:56 Closed fracture of left patella 8718541154 6890465 S82.015G prior fall with left knee fxcontACL brace in placePT OT eval and tx.Seen by Ortho last week, second request for office note to review.fol low ortho recs and update with concernstr amadol 50 mg q 8 prnmonitor pain controlfu with ortho hmc as sched. Unsteady when walking 22 197602 R26.89 NWB LLE till cleared by orthoPT OT eval and treat for deconditio ningmonito r Adult fail ure to thrive syndrome 599377794 R62.7 see HPIshe was not able to be cared for in community with tibia fxmonitor need for increased servicesco ntinue supportive care at facilitydi etary to evalmonito r weights Syndrome o f inappropriate vasopressin secretion 39246251 E22.2 monitor Na and need to adjust fluid restrictio nCurrent Na level 134, repeat x 1 05/25 not done - check in amno s/s of siadh Acute hypokalemia 889312 03 E87.6 improved with supplement current K level 3.4monitor lytes - repeat 05/25 not done, check in am Essential hypertension 93785298 I10 bp stablecont inue lisinopril 5 mg qdmonitor bp and need to titrate Anemia 760181067 D50.8 monitor cbcHgb. 11iron studies prn Chronic ob structive pulmonary disease 54557191 J41.1 carrying dx added to PMHmonitor respirator y statusadva ir inhaler 1 puff po bidalbuter ol for wheezes q 4 prn Osteoporosis 51683805 M8 1.0 hx ofcalcium Neuropathy 554154936 G62 .89 hx ofmonitor sx Mood disorder 72616726 F 34.89 with underlying anxietyati van 0.5 mg bidzoloft 50 mg qdSeen by Psych provider 05/11, no new recommenda tionsMonit or mood, behaviors. Viral gastroenteritis 11 0930177 A08.4 N/V/GI upset x 2-3d.Leonides nue symptomati c treatmentR estEncoura ge fluids, clear liquids, advance as able.Hold laxativesP RN imodium and zofran available as well.BMP in am (not done on 05/25) [id number] MAYDA WHIPPLE NP [address] [address] 06/03/2024 15:04:46 06/05/2024 09:47:09 Viral gastroenteritis 663883196 A08.4 N/V/GI upset x 2-3d last weekNow resolved. Closed fra cture of left patella 1318013785 9607040 S82.015G prior fall with left knee fxcontACL brace in placePT OT eval and tx.Seen by Ortho 2 wks ago, still no note scanned into EMR. Will request again.Foll ow ortho recs and update with concernstr amadol 50 mg q 8 prnmonitor pain controlfu with ortho hmc as sched. Unsteady when walking 22 086406 R26.89 NWB LLE till cleared by orthoPT OT eval and treat for deconditio ningmonito r Adult fail ure to thrive syndrome 586195389 R62.7 see HPIshe was not able to be cared for in community with tibia fxmonitor need for increased servicesco ntinue supportive care at facilitymo nitor weights, intake Syndrome o f inappropriate vasopressin secretion 50794123 E22.2 monitor Na and need to adjust fluid restrictio nMost recent level 135 on 05/28no s/s of siadhMonit or labs Acute hypokalemia 400390 03 E87.6 improved with supplement current K level 3.3not on obvious K depleting medsmonito r lytes - repeat in am Essential hypertension 67279883 I10 bp stablecont inue lisinopril 5 mg qdmonitor bp and need to titrate Anemia 101722367 D50.8 monitor cbcHgb. 11iron studies prn Chronic ob structive pulmonary disease 90946061 J41.1 carrying dx added to PMHmonitor respirator y statusadva ir inhaler 1 puff po bidalbuter ol for wheezes q 4 prn Osteoporosis 38403362 M8 1.0 hx ofcontinue calcium Neuropathy 395250088 G62 .89 hx ofmonitor sx Mood disorder 00983762 F 34.89 with underlying anxietyati van 0.5 mg bidzoloft 50 mg qdSeen by Psych provider 05/11, no new recommenda tionsMonit or mood, behaviors. [id number] Radha Hickey NP [facility] [address] 06/05/2024 08:46:02 06/08/2024 14:56:21 Viral gastroenteritis 764520400 A08.4 resolvingN /V/GI upset x 2-3d last week with likely potassium loss related to virus and vomitingNo w resolved. Closed fra cture of left patella 2939254106 8927309 S82.015G prior fall with left knee fxcontACL brace in placePT OT eval and tx.Seen by Ortho 2 wks ago, still no note scanned into EMR. Will request again.Foll ow ortho recs and update with concernstr amadol 50 mg q 8 prnmonitor pain controlfu with ortho hmc as sched. Unsteady when walking 22 604309 R26.89 NWB LLE till cleared by orthoPT OT eval and treat for deconditio ningmonito r Adult fail ure to thrive syndrome 766771153 R62.7 see HPIshe was not able to be cared for in community with tibia fxmonitor need for increased servicesco ntinue supportive care at facilitymo nitor weights, intake Syndrome o f inappropriate vasopressin secretion 85245179 E22.2 monitor Na and need to adjust fluid restrictio nMost recent level 138 improving from last weekno s/s of siadhMonit or labs Acute hypokalemia 084125 03 E87.6 current K level 3.2 with recent loss for gi virus06/05 start potassium 40 meq x 2 dosesrepea t labs on 06/08 Chronic ob structive pulmonary disease 45702161 J41.1 carrying dx added to PMHmonitor respirator y statusadva ir inhaler 1 puff po bidalbuter ol for wheezes q 4 prn Mood disorder 30842309 F 34.89 with underlying anxietyati van 0.5 mg bidzoloft 50 mg qdSeen by Psych provider 05/11, no new recommenda tionsMonit or mood, behaviors. Essential hypertension 72610805 I10 bp stablecont inue lisinopril 5 mg qdmonitor bp and need to titrate [id number] Rad[facility] [address] 06/11/2024 11:27:16 06/12/2024 13:49:32 Acute hypokalemia 69934974 E87.6 labs improved on 2/3 with k supplement sp gi virus Viral gastroenteritis 11 7838396 A08.4 resolvedN/ V/GI upset x 2-3d last week with likely potassium loss related to virus and vomitingNo w resolved. Closed fra cture of left patella 2897399340 1672180 S82.015G prior fall with left knee fxcontACL brace in placePT OT eval and tx.Seen by Ortho 2 wks ago, still no note scanned into EMR. Will request again.Foll ow ortho recs and update with concernstr amadol 50 mg q 8 prnmonitor pain controlfu with ortho hmc as sched. Unsteady when walking 22 126577 R26.89 NWB LLE till cleared by orthoPT OT eval and treat for deconditio ningmonito r Adult fail ure to thrive syndrome 111934355 R62.7 see HPIshe was not able to be cared for in community with tibia fxmonitor need for increased servicesco ntinue supportive care at facilitymo nitor weights, intake Syndrome o f inappropriate vasopressin secretion 28597554 E22.2 monitor Na and need to adjust fluid restrictio nno s/s of siadhMonit or labs as above Chronic ob structive pulmonary disease 95105938 J41.1 carrying dx added to PMHmonitor respirator y statusadva ir inhaler 1 puff po bidalbuter ol for wheezes q 4 prn Mood disorder 83772109 F 34.89 with underlying anxiety, stable hereativan 0.5 mg bidzoloft 50 mg qdSeen by Psych provider 05/11, no new recommenda tionsMonit or mood, behaviors. [id number] MAYDA WHIPPLE NP [facility] [address] [address] 06/17/2024 09:17:58 06/18/2024 13:31:49 Acute hypokalemia 78456765 E87.6 labs improved on 06/08 = 5Continue to monitor Viral gastroenteritis 11 4013662 A08.4 resolved Closed fra cture of left patella 8696867027 8543783 S82.015G prior fall with left knee fxcontACL brace in placePT OT eval and tx.Follow ortho recs and update with concernsNe xt appt. 2/25tramad ol 50 mg q 8 prnmonitor pain control Unsteady when walking 22 414732 R26.89 NWB LLE till cleared by orthoPT OT eval and treat for deconditio ningmonito r Adult fail ure to thrive syndrome 147892808 R62.7 see HPIshe was not able to be cared for in community with tibia fxmonitor need for increased services in prep. for dischargec ontinue supportive care at facilitymo nitor weights, intake Syndrome o f inappropriate vasopressin secretion 25426683 E22.2 monitor Na, currently 136Does not appear to be on a FR at this time.no s/s of siadhMonit or labs Chronic ob structive pulmonary disease 52378105 J41.1 monitor respirator y status - currently stablecont inue:advai r inhaler 1 puff po bidalbuter ol for wheezes q 4 prn Mood disorder 91608034 F 34.89 with underlying anxietyCon tinue:ativ an 0.5 mg bidzoloft 50 mg qdSeen by Psych provider 05/11, no new recommenda tionsMonit or mood, behaviors. Essential hypertension 90527949 I10 VSScontinu e lisinopril 5 mg qdmonitor bp and need to titrate Osteoporosis 65100540 M8 1.0 hx ofcontinue calcium Anemia 787088985 D50.8 monitor cbcHgb. 10.6iron studies prn Neuropathy 404707752 G62 .89 hx ofmonitor sx Health Concerns Section Related Observation LastModified by Organization Detai ls LastModified Time None Recorded Concern Status LastModified by Organization Details LastModified Time None Recorded Payers Encounter Date Sequence Insurance Name Policy Number Policy Rock Covered Member ID Rock Member ID Guarantor Name 06/17/2024 1 [place] [employer] Trevon Emilia Yeagerx [id number] Trevon Aguilar 06/17/2024 2 [place] [facility] Trevon Lauren [id number] Trevon Lauren Notes Date Note Type Note Provider Name and Address Organization Details Recorded Time 06/17/2024 text/html Trevon is seen t richie for an acute visit. She is a 73 yo lady, admitted to [facility] from the hospital for continued care and [...] od disorder NOS MAYDA WHIPPLE, SHEBA [address] [facility], [address], [place], [address], [facility] [place] 06/17/2024 09:33:53 OBGyn Episode No OBEpisode recorded.
--- OUTSIDE RECORDS SUMMARY | 2024-07-10 12:41 | XMS_ITS | Encounter Summary ---
Author Organization [facility] Address [address] [place] [address] Care Team Providers Care Raiser Helper Name Role Phone Alan Chanel MD Primary Care Provider [phone] Encounter Details Date Type Department Care Team (Late st Contact Info) Description 04/14/2024 Lab Requisition [facility] - Main Lab [address] [facility] [address] Ever Reyna MD [address] [place] [address] Encounter for other general examination Social History [...] LAB CHEMISTRY METHOD 04/14/2024 10:46 AM EST [facility] Urine Urine specimen obtained by clean catch procedure / Unknown Non-blood Collection / Unknown 04/14/2024 3:12 AM EST 04/14/2024 9:00 AM EST us Ever Reyna MD LAB URINE ORDERABLES Final Res ult Performing Organization Address City/[facility]/ZIP Co de Phone Number [facility] [address] [place] [address], [place] [phone] * (ABNORMAL) Osmolality, urine (04/14/2024 3:12 AM EST) Osmolality, Urine 258(L) 300 - 1,300 mOsm/kg LAB CHEMISTRY METHOD 04/14/2024 11:28 AM EST [facility] Urine Urine specimen obtained by clean catch procedure / Unknown Non-blood Collection / Unknown 04/14/2024 3:12 AM EST 04/14/2024 9:00 AM EST us Ever Reyna MD LAB URINE ORDERABLES Final Res ult Performing Organization Address [facility] Co de Phone Number [facility] [address] [place] [address], [place] [phone] documented in this encounter Visit Diagnoses Diagnosis Encounter for other general examination documented in this encounter Care Teams Raiser Helper Relationship Specialty Start Date End Date Alan Chanel MD [address] [place] [address] Dr Orellana [address] [place] [address] [place] PCP - General Internal Medicine 03/12/24 documented as of this encounter
--- OUTSIDE RECORDS SUMMARY | 2024-07-10 12:41 | XMS_ITS | Encounter Summary ---
Author Organization [facility] Address [address] [place] [address] Care Team Providers Care Snuff Blender Name Role Phone Alan Chanel MD Primary Care Provider Encounter Details Date Type Department Care Team (Late st Contact Info) Description 05/18/2024 Lab Requisition [facility] - Main Lab [address] [place] [address] Kenny Malave MD [address] [facility] [address] [place], [address] Essential (primary) hypertension Social History Tobacco [...] LAB CHEMISTRY METHOD 05/19/2024 8:54 AM EST [facility] Potassium 3.4(L) 3.5 - 5.5 mmol/L LAB CHEMISTRY METHOD 05/19/2024 8:54 AM EST [facility] Chloride 101 96 - 110 mmol/L LAB CHEMISTRY METHOD 05/19/2024 8:54 AM [facility] CO2 29 21 - 32 mmol/L LAB CHEMISTRY METHOD 05/19/2024 8:54 AM [facility] Anion Gap 4 3 - 11 LAB CHEMISTRY METHOD 05/19/2024 8:54 AM [facility] Glucose 87 70 - 100 mg/dL LAB CHEMISTRY METHOD 05/19/2024 8:54 AM [facility] BUN 15 5 - 25 mg/dL LAB CHEMISTRY METHOD 05/19/2024 8:54 AM [facility] Creatinine 0.60 0.50 - 1.10 mg/dL LAB CHEMISTRY METHOD 05/19/2024 8:54 AM [facility] eGFR 94 >=60 mL/min/1. 73m2 LAB CHEMISTRY METHOD 05/19/2024 8:54 AM [facility] Comment:Calculation based on the??Chronic Kidney Disease Epidemiology Collaboration (CKD-EPI) equation refit??without adjustment for race. BUN/Creatinine Ratio 25.0 LAB CHEMISTRY METHOD 05/19/2024 8:54 AM [facility] Calcium 9.1 8.5 - 10.5 mg/dL LAB CHEMISTRY METHOD 05/19/2024 8:54 AM [facility] Blood Venous blood specimen / Unknown Venipuncture / Unknown 05/19/2024 6:53 AM EST 05/19/2024 7:53 AM EST us Kenny Malave MD LAB BLOOD ORDERABLES Final Resul t [facility] [address] [place] [address], * (ABNORMAL) Complete blood count (05/19/2024 6:53 AM EST) WBC 5.0 4.8 - 10.8 K/mcL LAB HEMETOLOGY METHOD 05/19/2024 8:33 AM [facility] RBC 4.00 3.80 - 4.80 M/mcL LAB HEMETOLOGY METHOD 05/19/2024 8:33 AM [facility] Hemoglobin 11.0(L) 11.5 - 16.0 g/dL LAB HEMETOLOGY METHOD 05/19/2024 8:33 AM [facility] Hematocrit 33.7(L) 35.0 - 47.0 % LAB HEMETOLOGY METHOD 05/19/2024 8:33 AM [facility] MCV 85.3 79.0 - 98.0 FL LAB HEMETOLOGY METHOD 05/19/2024 8:33 AM [facility] MCH 27.8 27.0 - 32.0 pcg LAB HEMETOLOGY METHOD 05/19/2024 8:33 AM [facility] MCHC 32.6 32.0 - 37.0 g/dL LAB HEMETOLOGY METHOD 05/19/2024 8:33 AM [facility] RDW 15.0 11.0 - 15.0 % LAB HEMETOLOGY METHOD 05/19/2024 8:33 AM [facility] Platelets 527(H) 130 - 400 K/mcL LAB HEMETOLOGY METHOD 05/19/2024 8:33 AM [facility] MPV 8.5 7.0 - 11.0 FL LAB HEMETOLOGY METHOD 05/19/2024 8:33 AM [facility] NRBC 0.0 <1.0 % LAB HEMETOLOGY METHOD 05/19/2024 8:33 AM [facility] NRBC Absolute 0.00 <0.10 K/mcL LAB HEMETOLOGY METHOD 05/19/2024 8:33 AM [facility] Blood Venous blood specimen / Unknown Venipuncture / Unknown 05/19/2024 6:53 AM EST 05/19/2024 7:53 AM EST us Kenny Malave MD LAB BLOOD ORDERABLES Final Resul t [facility] ([facility] [address] [place] [address], [place] [phone] documented in this encounter Visit Diagnoses Diagnosis Essential (primary) hypertension Unspecified essential hypertension documented in this encounter Care Teams Snuff Blender Relationship Specialty Start Date End Date Alan Chanel MD [address] [place] [address] Dr [address] [place], [place] PCP - General Internal Medicine 03/12/24 documented as of this encounter
--- OUTSIDE RECORDS SUMMARY | 2024-07-10 12:41 | XMS_ITS | Encounter Summary ---
Author Organization [facility] Address [address] [place] [address] Care Team Providers Care Cyber Instructor Name Role Phone Alan Chanel MD Primary Care Provider Encounter Details Date Type Department Care Team (Late st Contact Info) Description 04/21/2024 Lab Requisition [facility] - Main Lab [address] [place] [address] Ever Reyna MD [address] [place] [address] Encounter for other general examination Social History [...] LAB CHEMISTRY METHOD 04/21/2024 10:03 AM EST [facility] ([facility]) [facility] Blood Venous blood specimen / Unknown Venipuncture / Unknown 04/21/2024 6:13 AM EST 04/21/2024 8:46 AM EST us Ever Reyna MD LAB BLOOD ORDERABLES Final Res ult Performing Organization Address [facility]/ZIP Co de Phone Number [facility] [address] [place] [address], [place] [phone] * Amylase (04/21/2024 6:13 AM EST) [facility] Amylase 51 25 - 115 unit/L LAB CHEMISTRY METHOD 04/21/2024 10:03 AM [facility] Blood Venous blood specimen / Unknown Venipuncture / Unknown 04/21/2024 6:13 AM EST 04/21/2024 8:46 AM EST us Ever Reyna MD LAB BLOOD ORDERABLES Final Res ult Performing Organization Address [facility] Co de Phone Number [facility] [address] [place] [address], [place] [phone] * (ABNORMAL) Comprehensive metabolic panel (04/21/2024 6:13 AM EST) [facility] Sodium 126(L) 133 - 145 mmol/L LAB CHEMISTRY METHOD 04/21/2024 10:06 AM [facility] Potassium 3.7 3.5 - 5.5 mmol/L LAB CHEMISTRY METHOD 04/21/2024 10:06 AM [facility] Chloride 91(L) 96 - 110 mmol/L LAB CHEMISTRY METHOD 04/21/2024 10:06 AM [facility] CO2 26 21 - 32 mmol/L LAB CHEMISTRY METHOD 04/21/2024 10:06 AM [facility] Anion Gap 9 3 - 11 LAB CHEMISTRY METHOD 04/21/2024 10:06 AM [facility] Glucose 82 70 - 100 mg/dL LAB CHEMISTRY METHOD 04/21/2024 10:06 AM [facility] BUN 10 5 - 25 mg/dL LAB CHEMISTRY METHOD 04/21/2024 10:06 AM [facility] Creatinine 0.67(L) 0.70 - 1.30 mg/dL LAB CHEMISTRY METHOD 04/21/2024 10:06 AM [facility] LAB eGFR 98 >=60 mL/min/1. 73m2 LAB CHEMISTRY METHOD 04/21/2024 10:06 AM [facility] Comment:Calculation based on the??Chronic Kidney Disease Epidemiology Collaboration (CKD-EPI) equation refit??without adjustment for race. BUN/Creatinine Ratio 14.9 LAB CHEMISTRY METHOD 04/21/2024 10:06 AM [facility] Calcium 8.8 8.5 - 10.5 mg/dL LAB CHEMISTRY METHOD 04/21/2024 10:06 AM [facility] AST (SGOT) 208(H) 10 - 42 unit/L LAB CHEMISTRY METHOD 04/21/2024 10:06 AM [facility] ALT (SGPT) 210(H) 10 - 60 unit/L LAB CHEMISTRY METHOD 04/21/2024 10:06 AM [facility] Alkaline Phosphatase 210(H) 42 - 121 unit/L LAB CHEMISTRY METHOD 04/21/2024 10:06 AM [facility] Total Protein 6.5 6.0 - 8.0 g/dL LAB CHEMISTRY METHOD 04/21/2024 10:06 AM [facility] Albumin 3.2 3.2 - 5.0 g/dL LAB CHEMISTRY METHOD 04/21/2024 10:06 AM [facility] Total Bilirubin 0.3 0.0 - 1.4 mg/dL LAB CHEMISTRY METHOD 04/21/2024 10:06 AM [facility] Blood Venous blood specimen / Unknown Venipuncture / Unknown 04/21/2024 6:13 AM EST 04/21/2024 8:46 AM EST us Ever Reyna MD LAB BLOOD ORDERABLES Final Res ult [facility] [address] [place] [address], documented in this encounter Visit Diagnoses Diagnosis Encounter for other general examination documented in this encounter Care Teams Cyber Instructor Relationship Specialty Start Date End Date Alan Chanel MD [address] [place] [address] Dr [address] [place], [place] PCP - General Internal Medicine 03/12/24 documented as of this encounter
--- OUTSIDE RECORDS SUMMARY | 2024-07-10 12:41 | XMS_ITS | Encounter Summary ---
Author Organization [facility] Address [address] [place] [address] Care Team Providers Care Engineering Technical Analyst Name Role Phone Alan Chanel MD Primary Care Provider Encounter Details Date Type Department Care Team (Late st Contact Info) Description 04/12/[address] [facility] - Main Lab [address] [facility] [place] [address] Ever Reyna MD [address] [place] [address] Encounter for other general examination Social History [...] AM EST) WBC 6.1 4.8 - 10.8 K/[facility] LAB HEMETOLOGY METHOD 04/12/2024 10:32 AM [facility] [...] MD LAB BLOOD ORDERABLES Final Res ult [facility] [address] [place] [address], [place] [phone] * (ABNORMAL) Magnesium (04/12/2024 7:35 AM EST) Magnesium 1.7(L) 1.9 - 2.6 mg/dL LAB CHEMISTRY METHOD 04/12/2024 10:55 AM EST [facility] Blood Venous blood specimen / Unknown Venipuncture / Unknown 04/12/2024 7:35 AM EST 04/12/2024 10:02 AM EST Ever Reyna MD LAB BLOOD ORDERABLES Final Res ult Performing Organization Address [facility]/ZIP Co de Phone Number [facility] [address] [place] [address], [place] [phone] * (ABNORMAL) Comprehensive metabolic panel (04/12/2024 7:35 [...] ORDERABLES Final Res ult [facility] [address] [place] [address], documented in this encounter Visit Diagnoses Diagnosis Encounter for other general examination documented in this encounter Care Teams Engineering Technical Analyst Relationship Specialty Start Date End Date Alan Chanel MD [address] [place] [address] Dr [address] [place], [place] PCP - General Internal Medicine 03/12/24 documented as of this encounter
--- OUTSIDE RECORDS SUMMARY | 2024-07-10 12:41 | XMS_ITS | Encounter Summary ---
Author Organization [facility] Address [address] [place] [address] Care Team Providers Care Fuse Spooler Name Role Phone Alan Chanel MD Primary Care Provider [phone] Encounter Details Date Type Department Care Team (Late st Contact Info) Description 04/13/2024 Lab Requisition [facility] - Main Lab [address] [facility] [place] [address] Ever Reyna MD [address] [place] [address] Encounter for other general examination Social History [...] LAB CHEMISTRY METHOD 04/13/2024 1:06 PM EST [facility] Potassium 4.0 3.5 - 5.5 mmol/L LAB CHEMISTRY METHOD 04/13/2024 1:06 PM EST [facility] Chloride 92(L) 96 - 110 mmol/L LAB CHEMISTRY METHOD 04/13/2024 1:06 PM EST [facility] CO2 26 21 - 32 mmol/L LAB CHEMISTRY METHOD 04/13/2024 1:06 PM [facility] Anion Gap 10 3 - 11 LAB CHEMISTRY METHOD 04/13/2024 1:06 PM [facility] Glucose 59(L) 70 - 100 mg/dL LAB CHEMISTRY METHOD 04/13/2024 1:06 PM [facility] BUN 17 5 - 25 mg/dL LAB CHEMISTRY METHOD 04/13/2024 1:06 PM [facility] Creatinine 0.82 0.70 - 1.30 mg/dL LAB CHEMISTRY METHOD 04/13/2024 1:06 PM [facility] LAB eGFR 92 >=60 mL/min/1. 73m2 LAB CHEMISTRY METHOD 04/13/2024 1:06 PM [facility] LAB Comment:Calculation based on the??Chronic Kidney Disease Epidemiology Collaboration (CKD-EPI) equation refit??without adjustment for race. BUN/Creatinine Ratio 20.7 LAB CHEMISTRY METHOD 04/13/2024 1:06 PM [facility] Calcium 9.9 8.5 - 10.5 mg/dL LAB CHEMISTRY METHOD 04/13/2024 1:06 PM [facility] Blood Venous blood specimen / Unknown Venipuncture / Unknown 04/13/2024 5:20 AM EST 04/13/2024 11:02 AM EST us Ever Reyna MD LAB BLOOD ORDERABLES Final Res ult [facility] [address] [place] [address], documented in this encounter Visit Diagnoses Diagnosis Encounter for other general examination documented in this encounter Care Teams Fuse Spooler Relationship Specialty Start Date End Date Alan Chanel MD [address] [place] [address] Reyna [address] [place] PCP - General Internal Medicine 03/12/24 documented as of this encounter
--- OUTSIDE RECORDS SUMMARY | 2024-07-10 12:41 | XMS_ITS | Continuity of Care Document ---
Author Organization [facility], [facility] Address [address] [place] [address] Care Team Providers Care Systems Qa Analyst Name Role Phone DANIEL PETER - 2ND FLOOR OTHER LAUREN ROSAS Primary Care Provider [phone] Assessment No assessment recorded. Plan of Treatment [...] Recorded Time Adult failure to thrive syndrome 694342480 Active 2023 Kenny Malave MD [address] [facility], [facility] [address], [place], [address], [facility] [employer] [facility] 13:42:50 Syndrome of inappropria te vasopressin secretion 78425689 Active 2023 Kenny Malave MD [address] [place] [address], [address], [place], [address], [facility] [employer] [facility] 13:42:57 Unsteady when walking 56525409 Active 2023 Kenny Malave MD [address] [place] [address], [address], [place], [address], [facility] [employer] [facility] 13:43:03 Essential hypertensio n 67155745 Active 2023 Kenny Malave MD [address] [place] [address], [address], [place], [address], [facility] [employer] [facility] 13:43:09 Anemia 285088259 Active 2023 Kenny Malave MD [address] [facility], [address], [place], [address], [facility] 4 13:43:14 Chronic obstructive pulmonary disease 40837826 Active 2023 Kenny Malave MD [address], [address], [place], [address], [place] [facility] 4 13:43:19 Osteoporosi s 16405928 Active 2023 Kenny Malave MD [address], [address], [place], [address], [facility] 4 13:43:27 Neuropathy 483407919 Active 2023 Kenny Malave MD [address] [facility], [address], [place], [address], [facility] 4 13:43:33 Mood disorder 15408057 Active 2023 Kenny Malave MD [address] [facility], [address], [place], [address], [facility] 4 13:43:41 Closed fracture of left patella 4223073154950 9105 Active 2023 Kenny Malave MD [address] [facility], [address], [place], [address], [facility] 4 13:44:22 Hearing loss 33837328 Active 2023 Kenny Malave MD [address] [facility], [address], [place], [address], [facility] 4 13:56:41 Problem Notes None recorded. Medical Equipment None Reported. Allergies No known drug allergies Medications Not known to be on any medication Vitals Date Recorded Body weight Heart rate Respiratory rate Body temperature Oxygen saturation Oxygen saturation in Arterial blood by Pulse oximetry Systolic blood pressure Diastolic blood pressure Provider Name and Address Organization Details Last Updated DateTime 5 30029.9 4 g 87 /min 18 /min 98 [degF] 96 % 96 % 117 mm[Hg] 68 mm[Hg] Radha Hickey NP [address] [facility], [address], [place], [address], [facility] 5 11:30:35 Social History Question Answer Notes LastModified by Organizat ion Details LastModified Time Tobacco Smoking Status Former Smoker 2 ppd smoker quit early 2023 Kenny Malave MD [address] [facility], [address], [place], [address], [facility] 04/28/2024 13:58:17 Do You Have An [...] Recorded Time Tdap 6 completed [facility] 05/05/2024 16:34:17 pneumococcal polysaccharide PPV23 6 completed [facility] 05/05/2024 16:34:32 influenza, unspecified formulation 4 completed [facility] 05/05/2024 16:34:49 influenza, unspecified formulation 3 completed [facility] 05/05/2024 16:34:56 influenza, unspecified formulation 2 completed [facility] 05/05/2024 16:35:02 Past Encounters Encounter ID Performer Location Encounter Start Date Encounter Closed Date Diagnosis/Indication Diagnosis SNOMED-CT Code Diagnosis ICD10 Code Diagnosis Note [id number] Radha Hickey NP [address] [address] 05/15/2024 12:28:25 05/19/2024 09:13:20 Adult failure to thrive syndrome 254673422 R62.7 see HPIshe was not able to be cared for in community with tibia fxmonitor need for increased servicesco ntinue supportive care at facilitydi etary to evalmonito r weights Closed fra cture of left patella 0159751694 8636855 S82.015G prior fall with left knee fxcontACL brace in placeNWB till cleared by orthofollo w ortho recs and update with concernstr amadol 50 mg q 8 prnmonitor pain controlfu with ortho h[facility] on 05/19/24 Syndrome o f inappropriate vasopressin secretion 14924145 E22.2 monitor Na and need to adjust fluid restrictio nno s/s of siadh Acute hypokalemia 305974 03 E87.6 improved with supplement monitor lytes Unsteady when walking 22 607712 R26.89 NWB LLE till cleared by orthoPT OT eval and treat for deconditio ningmonito r Essential hypertension 47219450 I10 bp stablelisi nopril 5 mg qdmonitor bp and need to titrate Anemia 635114650 D50.8 monitor cbciron studies prn Chronic ob structive pulmonary disease 45600124 J41.1 carrying dx added to PMHmonitor respirator y statusadva ir inhaler 1 puff po bidalbuter ol for wheezes q 4 prn Osteoporosis 33914393 M8 1.0 hx ofcalcium Neuropathy 669092896 G62 .89 hx ofmonitor sx Mood disorder 61844130 F 34.89 with underlying anxietyati van 0.5 mg bidzoloft 50 mg qd [id number] MAYDA WHIPPLE NP [facility] [address] [address] 05/20/2024 12:54:44 05/22/2024 14:28:37 Closed fracture of left patella 9325502046 2114316 S82.015G prior fall with left knee fxcontACL brace in placePT OT eval and tx.NWB till cleared by ortho - seen yesterday, get consult note to reviewfoll ow ortho recs and update with concernstr amadol 50 mg q 8 prnmonitor pain controlfu with ortho hmc as sched. Unsteady when walking 22 549985 R26.89 NWB LLE till cleared by orthoPT OT eval and treat for deconditio ningmonito r Adult fail ure to thrive syndrome 538974366 R62.7 see HPIshe was not able to be cared for in community with tibia fxmonitor need for increased servicesco ntinue supportive care at facilitydi etary to evalmonito r weights Syndrome o f inappropriate vasopressin secretion 44599972 E22.2 monitor Na and need to adjust fluid restrictio nCurrent Na level 134, repeat x 1 05/25no s/s of siadh Acute hypokalemia 562168 03 E87.6 improved with supplement current K level 3.4monitor lytes - repeat 05/25 Essential hypertension 24203918 I10 bp stablecont inue lisinopril 5 mg qdmonitor bp and need to titrate Anemia 462414788 D50.8 monitor cbcHgb. 11iron studies prn Chronic ob structive pulmonary disease 30093749 J41.1 carrying dx added to PMHmonitor respirator y statusadva ir inhaler 1 puff po bidalbuter ol for wheezes q 4 prn Osteoporosis 14299676 M8 1.0 hx ofcalcium Neuropathy 150561199 G62 .89 hx ofmonitor sx Mood disorder 57039832 F 34.89 with underlying anxietyati van 0.5 mg bidzoloft 50 mg qdSeen by Psych provider 05/11, no new recommenda tionsMonit or mood, behaviors. [id number] MAYDA WHIPPLE NP [facility] [address] 05/27/2024 14:06:34 05/28/2024 10:49:56 Closed fracture of left patella 2056366854 4585233 S82.015G prior fall with left knee fxcontACL brace in placePT OT eval and tx.Seen by Ortho last week, second request for office note to review.fol low ortho recs and update with concernstr amadol 50 mg q 8 prnmonitor pain controlfu with ortho hmc as sched. Unsteady when walking 22 758864 R26.89 NWB LLE till cleared by orthoPT OT eval and treat for deconditio ningmonito r Adult fail ure to thrive syndrome 530880056 R62.7 see HPIshe was not able to be cared for in community with tibia fxmonitor need for increased servicesco ntinue supportive care at facilitydi etary to evalmonito r weights Syndrome o f inappropriate vasopressin secretion 26896643 E22.2 monitor Na and need to adjust fluid restrictio nCurrent Na level 134, repeat x 1 05/25 not done - check in amno s/s of siadh Acute hypokalemia 847304 03 E87.6 improved with supplement current K level 3.4monitor lytes - repeat 05/25 not done, check in am Essential hypertension 65646547 I10 bp stablecont inue lisinopril 5 mg qdmonitor bp and need to titrate Anemia 180826178 D50.8 monitor cbcHgb. 11iron studies prn Chronic ob structive pulmonary disease 00308608 J41.1 carrying dx added to PMHmonitor respirator y statusadva ir inhaler 1 puff po bidalbuter ol for wheezes q 4 prn Osteoporosis 33481807 M8 1.0 hx ofcalcium Neuropathy 991852155 G62 .89 hx ofmonitor sx Mood disorder 14607698 F 34.89 with underlying anxietyati van 0.5 mg bidzoloft 50 mg qdSeen by Psych provider 05/11, no new recommenda tionsMonit or mood, behaviors. Viral gastroenteritis 11 7787060 A08.4 N/V/GI upset x 2-3d.Leonides nue symptomati c treatmentR estEncoura ge fluids, clear liquids, advance as able.Hold laxativesP RN imodium and zofran available as well.BMP in am (not done on 05/25) [id number] MAYDA WHIPPLE NP [facility] [place] [facility] [address] [facility] [place] [address] 06/03/2024 15:04:46 06/05/2024 09:47:09 Viral gastroenteritis 594332800 A08.4 N/V/GI upset x 2-3d last weekNow resolved. Closed fra cture of left patella 4765784541 9497781 S82.015G prior fall with left knee fxcontACL brace in placePT OT eval and tx.Seen by Ortho 2 wks ago, still no note scanned into EMR. Will request again.Foll ow ortho recs and update with concernstr amadol 50 mg q 8 prnmonitor pain controlfu with ortho hmc as sched. Unsteady when walking 22 274110 R26.89 NWB LLE till cleared by orthoPT OT eval and treat for deconditio ningmonito r Adult fail ure to thrive syndrome 538155475 R62.7 see HPIshe was not able to be cared for in community with tibia fxmonitor need for increased servicesco ntinue supportive care at facilitymo nitor weights, intake Syndrome o f inappropriate vasopressin secretion 60110309 E22.2 monitor Na and need to adjust fluid restrictio nMost recent level 135 on 05/28no s/s of siadhMonit or labs Acute hypokalemia 157547 03 E87.6 improved with supplement current K level 3.3not on obvious K depleting medsmonito r lytes - repeat in am Essential hypertension 40446218 I10 bp stablecont inue lisinopril 5 mg qdmonitor bp and need to titrate Anemia 661295257 D50.8 monitor cbcHgb. 11iron studies prn Chronic ob structive pulmonary disease 61360528 J41.1 carrying dx added to PMHmonitor respirator y statusadva ir inhaler 1 puff po bidalbuter ol for wheezes q 4 prn Osteoporosis 31689638 M8 1.0 hx ofcontinue calcium Neuropathy 963371128 G62 .89 hx ofmonitor sx Mood disorder 66750887 F 34.89 with underlying anxietyati van 0.5 mg bidzoloft 50 mg qdSeen by Psych provider 05/11, no new recommenda tionsMonit or mood, behaviors. [id number] Radha Hickey NP [facility] [place] [address] [facility] [place] [address] 06/05/2024 08:46:02 06/08/2024 14:56:21 Viral gastroenteritis 714332275 A08.4 resolvingN /V/GI upset x 2-3d last week with likely potassium loss related to virus and vomitingNo w resolved. Closed fra cture of left patella 6659209864 8696841 S82.015G prior fall with left knee fxcontACL brace in placePT OT eval and tx.Seen by Ortho 2 wks ago, still no note scanned into EMR. Will request again.Foll ow ortho recs and update with concernstr amadol 50 mg q 8 prnmonitor pain controlfu with ortho hmc as sched. Unsteady when walking 22 041696 R26.89 NWB LLE till cleared by orthoPT OT eval and treat for deconditio ningmonito r Adult fail ure to thrive syndrome 479909204 R62.7 see HPIshe was not able to be cared for in community with tibia fxmonitor need for increased servicesco ntinue supportive care at facilitymo nitor weights, intake Syndrome o f inappropriate vasopressin secretion 72215616 E22.2 monitor Na and need to adjust fluid restrictio nMost recent level 138 improving from last weekno s/s of siadhMonit or labs Acute hypokalemia 140587 03 E87.6 current K level 3.2 with recent loss for gi virus06/05 start potassium 40 meq x 2 dosesrepea t labs on 06/08 Chronic ob structive pulmonary disease 65584934 J41.1 carrying dx added to PMHmonitor respirator y statusadva ir inhaler 1 puff po bidalbuter ol for wheezes q 4 prn Mood disorder 18844768 F 34.89 with underlying anxietyati van 0.5 mg bidzoloft 50 mg qdSeen by Psych provider 05/11, no new recommenda tionsMonit or mood, behaviors. Essential hypertension 20012653 I10 bp stablecont inue lisinopril 5 mg qdmonitor bp and need to titrate [id number] Radha Hickey NP [facility] [address] [facility] [place] [address] 06/11/2024 11:27:16 06/12/2024 13:49:32 Acute hypokalemia 87563828 E87.6 labs improved on 06/08 with k supplement sp gi virus Viral gastroenteritis 11 9992908 A08.4 resolvedN/ V/GI upset x 2-3d last week with likely potassium loss related to virus and vomitingNo w resolved. Closed fra cture of left patella 1401792951 4617623 S82.015G prior fall with left knee fxcontACL brace in placePT OT eval and tx.Seen by Ortho 2 wks ago, still no note scanned into EMR. Will request again.Foll ow ortho recs and update with concernstr amadol 50 mg q 8 prnmonitor pain controlfu with ortho h[facility] as sched. Unsteady when walking 22 265989 R26.89 NWB LLE till cleared by orthoPT OT eval and treat for deconditio ningmonito r Adult fail ure to thrive syndrome 949079252 R62.7 see HPIshe was not able to be cared for in community with tibia fxmonitor need for increased servicesco ntinue supportive care at facilitymo nitor weights, intake Syndrome o f inappropriate vasopressin secretion 23049809 E22.2 monitor Na and need to adjust fluid restrictio nno s/s of siadhMonit or labs as above Chronic ob structive pulmonary disease 25779943 J41.1 carrying dx added to PMHmonitor respirator y statusadva ir inhaler 1 puff po bidalbuter ol for wheezes q 4 prn Mood disorder 53762124 F 34.89 with underlying anxiety, stable hereativan [...] 1 [place]: [employer] Trevon Nieto Lauren [id number] Trevon Lauren 06/11/2024 2 [place] [facility] Trevon Lauren [id number] Trevon [facility] Notes Date Note Type Note Provider Name and Address Organization Details Recorded Time 06/11/2024 text/html Pt Trevon seen f or an acute visit. PMH significant for siadh, htn,anemia,copd,os teoporosis,neuropa thy,mood disorder NOS She is a 73 [...] cleared by ortho. Radha Hickey, SHEBA [address] [facility], [address], [place], [address], [facility] [employer] 06/12/2024 10:01:36 OBGyn Episode No OBEpisode recorded.
--- OUTSIDE RECORDS SUMMARY | 2024-07-10 12:42 | XMS_ITS | Encounter Summary ---
Author Organization [facility] Address [address] [place] [address] Care Team Providers Care Reaming Machine Tender Name Role Phone Alan Chanel MD Primary Care Provider Encounter Details Date Type Department Care Team (Late st Contact Info) Description 04/28/2024 Lab Requisition [facility] - Main Lab [address] [place] [address] Kenny Malave MD [address] [facility] [address] [place], [address] Essential (primary) hypertension Social History Tobacco [...] LAB CHEMISTRY METHOD 04/28/2024 12:11 PM EST [facility] Potassium 3.7 3.5 - 5.5 mmol/L LAB CHEMISTRY METHOD 04/28/2024 12:11 PM EST [facility] Chloride 91(L) 96 - 110 mmol/L LAB CHEMISTRY METHOD 04/28/2024 12:11 PM [facility] CO2 25 21 - 32 mmol/L LAB CHEMISTRY METHOD 04/28/2024 12:11 PM [facility] Anion Gap 11 3 - 11 LAB CHEMISTRY METHOD 04/28/2024 12:11 PM [facility] Glucose 81 70 - 100 mg/dL LAB CHEMISTRY METHOD 04/28/2024 12:11 PM [facility] BUN 16 5 - 25 mg/dL LAB CHEMISTRY METHOD 04/28/2024 12:11 PM [facility] Creatinine 0.56(L) 0.70 - 1.30 mg/dL LAB CHEMISTRY METHOD 04/28/2024 12:11 PM [facility] eGFR 103 >=60 mL/min/1. 73m2 LAB CHEMISTRY METHOD 04/28/2024 12:11 PM [facility] Comment:Calculation based on the??Chronic Kidney Disease Epidemiology Collaboration (CKD-EPI) equation refit??without adjustment for race. BUN/Creatinine Ratio 28.6 LAB CHEMISTRY METHOD 04/28/2024 12:11 PM [facility] Calcium 9.0 8.5 - 10.5 mg/dL LAB CHEMISTRY METHOD 04/28/2024 12:11 PM [facility] AST (SGOT) 31 10 - 42 unit/L LAB CHEMISTRY METHOD 04/28/2024 12:11 PM [facility] ALT (SGPT) 48 10 - 60 unit/L LAB CHEMISTRY METHOD 04/28/2024 12:11 PM [facility] Alkaline Phosphatase 136(H) 42 - 121 unit/L LAB CHEMISTRY METHOD 04/28/2024 12:11 PM [facility] Total Protein 6.4 6.0 - 8.0 g/dL LAB CHEMISTRY METHOD 04/28/2024 12:11 PM [facility] Albumin 2.9(L) 3.2 - 5.0 g/dL LAB CHEMISTRY METHOD 04/28/2024 12:11 PM EST [facility] Total Bilirubin 0.5 0.0 - 1.4 mg/dL LAB CHEMISTRY METHOD 04/28/2024 12:11 PM [facility] Blood Venous blood specimen / Unknown Venipuncture / Unknown 04/28/2024 6:19 AM EST 04/28/2024 10:16 AM EST us Kenny Malave MD LAB BLOOD ORDERABLES Final Resul t [facility] [address] [place] [address], [place] [phone] * (ABNORMAL) Complete blood count (04/28/2024 6:19 AM EST) WBC 6.8 4.8 - 10.8 K/mcL LAB HEMETOLOGY METHOD 04/28/2024 11:29 AM [facility] RBC 4.10(L) 4.50 - 5.50 M/mcL LAB HEMETOLOGY METHOD 04/28/2024 11:29 AM [facility] Hemoglobin 11.4(L) 13.5 - 17.5 g/dL LAB HEMETOLOGY METHOD 04/28/2024 11:29 AM [facility] Hematocrit 33.6(L) 42.0 - 54.0 % LAB HEMETOLOGY METHOD 04/28/2024 11:29 AM [facility] MCV 81.8 79.0 - 98.0 FL LAB HEMETOLOGY METHOD 04/28/2024 11:29 AM [facility] MCH 27.7 27.0 - 32.0 pcg LAB HEMETOLOGY METHOD 04/28/2024 11:29 AM [facility] MCHC 33.9 32.0 - 37.0 g/dL LAB HEMETOLOGY METHOD 04/28/2024 11:29 AM EST [facility] RDW 13.2 11.0 - 15.0 % LAB HEMETOLOGY METHOD 04/28/2024 11:29 AM EST [facility] Platelets 491(H) 130 - 400 K/mcL LAB HEMETOLOGY METHOD 04/28/2024 11:29 AM EST [facility] MPV 8.2 7.0 - 11.0 FL LAB HEMETOLOGY METHOD 04/28/2024 11:29 AM EST [facility] NRBC 0.0 <1.0 % LAB HEMETOLOGY METHOD 04/28/2024 11:29 AM EST [facility] NRBC Absolute 0.00 <0.10 K/mcL LAB HEMETOLOGY METHOD 04/28/2024 11:29 AM [facility] Blood Venous blood specimen / Unknown Venipuncture / Unknown 04/28/2024 6:19 AM EST 04/28/2024 10:16 AM EST us Kenny Malave MD LAB BLOOD ORDERABLES Final Resul t [facility] [address] [place] [address], documented in this encounter Visit Diagnoses Diagnosis Essential (primary) hypertension Unspecified essential hypertension documented in this encounter Care Teams Reaming Machine Tender Relationship Specialty Start Date End Date Alan Chanel MD [address] [place] [address] Dr Reyna Kruger [place] PCP - General Internal Medicine 03/12/24 documented as of this encounter
--- OUTSIDE RECORDS SUMMARY | 2024-07-10 12:42 | XMS_ITS | Clinical Summary ---
Author Organization [address] [facility] Address [address] [place] [address] Phone Care Team Providers Care Ash Worker Name Role Phone Alan Chanel MD Primary [...] Department Care Team Description 07/08/2024 Lab Requisition [facility] Main Lab [address] [place] [phone] Kenny Malave MD Anemia, unspecified; Chronic obstructive pulmonary disease, unspecified (CMS/HCC) 06/08/2024 Lab Requisition [facility] Lab [address] [place] [phone] Kenny Malave MD Chronic obstructive pulmonary disease, unspecified ([facility]/HCC) 06/04/2024 Lab Requisition [facility] Main Lab [address] [place] [phone] Kenny Malave MD Other custodial (current) drug therapy 05/28/2024 Lab Requisition [facility] Lab [address] [place] [address] Kenny Malave MD Polyneuropathy, unspecified; Unspecified protein-calorie malnutrition (CMS/HCC); Chronic obstructive pulmonary disease, unspecified (CMS/HCC) 05/18/2024 Lab Requisition [facility] Main Lab [address] [place] [phone] Kenny Malave MD Essential (primary) hypertension 05/11/2024 Lab Requisition [facility] Main Lab [address] [place] [address] Kenny Malave MD Essential (primary) hypertension 05/04/2024 Lab Requisition [facility] Lab [address] [place] [address] Kenny Malave MD Essential (primary) hypertension 04/28/2024 Lab Requisition [facility] Lab [address] [place] [address] Kenny Malave MD Essential (primary) hypertension 04/22/2024 Lab Requisition [facility] Lab [address] [place] [address] Ever Reyna MD Encounter for other general examination 04/22/2024 Lab Requisition [facility] Lab [address] [place] [address] Ever Reyna MD Encounter for other general examination 04/21/2024 Lab Requisition [facility] Lab [address] [place] [address] Ever Reyna MD Encounter for other general examination 04/20/2024 Lab Requisition [facility] Lab [address] [place] [address] Ever Reyna MD Encounter for other general examination 04/17/2024 Lab Requisition [facility] Lab [address] [place] [address] Ever Reyna MD Encounter for other general examination 04/15/2024 Lab Requisition [facility] Lab [address] [place] [address] Ever Reyna MD Encounter for other general examination 04/14/2024 Lab Requisition [facility] Lab [address] [place] [address] Ever Reyna MD Encounter for other general examination 04/14/2024 Lab Requisition [facility] Lab [address] [place] [address] Ever Reyna MD Encounter for other general examination 04/13/2024 Lab Requisition [facility] Lab [address] [place] [phone] Ever Reyna MD Encounter for other general examination 04/12/2024 Lab Requisition [facility] - Main Lab [address] [facility] [place] [address] Ever Reyna MD Encounter for other general [...] PANEL Routine 06/04/2024 5:36 AM EST Other custodial (current) drug therapy BASIC METABOLIC PANEL Routine [...] LAB HEMETOLOGY METHOD 07/08/2024 11:24 AM EST [facility] RBC 3.90 3.80 - 4.80 M/mcL LAB HEMETOLOGY METHOD 07/08/2024 11:24 AM EST [facility] Hemoglobin 11.1(L) 11.5 - 16.0 g/dL LAB HEMETOLOGY METHOD 07/08/2024 11:24 AM EST [facility] Hematocrit 33.8(L) 35.0 - 47.0 % LAB HEMETOLOGY METHOD 07/08/2024 11:24 AM EST [facility] MCV 86.7 79.0 - 98.0 FL LAB HEMETOLOGY METHOD 07/08/2024 11:24 AM EST [facility] MCH 28.5 27.0 - 32.0 pcg LAB HEMETOLOGY METHOD 07/08/2024 11:24 AM [facility] MCHC 32.8 32.0 - 37.0 g/dL LAB HEMETOLOGY METHOD 07/08/2024 11:24 AM EST [facility] RDW 17.4(H) 11.0 - 15.0 % LAB HEMETOLOGY METHOD 07/08/2024 11:24 AM [facility] Platelets 500(H) 130 - 400 K/mcL LAB HEMETOLOGY METHOD 07/08/2024 11:24 AM [facility] MPV 8.2 7.0 - 11.0 FL LAB HEMETOLOGY METHOD 07/08/2024 11:24 AM EST [facility] NRBC 0.0 <1.0 % LAB HEMETOLOGY METHOD 07/08/2024 11:24 AM [facility] NRBC Absolute 0.00 <0.10 K/mcL LAB HEMETOLOGY METHOD 07/08/2024 11:24 AM [facility] Blood Venous blood specimen / Unknown Venipuncture / Unknown 07/08/2024 6:23 AM EST 07/08/2024 10:53 AM EST us Kenny Malave MD LAB BLOOD ORDERABLES Final Resul t [facility] [address] [place] [address], * Phosphorus (07/08/2024 6:23 AM EST) Phosphorus 4.2 2.5 - 4.5 mg/dL LAB CHEMISTRY METHOD 07/08/2024 2:39 PM [facility] Blood Venous blood specimen / Unknown Venipuncture / Unknown 07/08/2024 6:23 AM EST 07/08/2024 10:53 AM EST us Kenny Malave MD LAB BLOOD ORDERABLES Final Resul t [facility] [address] [place] [address], * (ABNORMAL) Comprehensive metabolic panel (07/08/2024 6:23 AM EST) Only the most recent of6 resultswithin the time period is included. Sodium 132(L) 133 - 145 mmol/L LAB CHEMISTRY METHOD 07/08/2024 2:39 PM [facility] Potassium 4.7 3.5 - 5.5 mmol/L LAB CHEMISTRY METHOD 07/08/2024 2:39 PM [facility] Chloride 98 96 - 110 mmol/L LAB CHEMISTRY METHOD 07/08/2024 2:39 PM [facility] CO2 23 21 - 32 mmol/L LAB CHEMISTRY METHOD 07/08/2024 2:39 PM [facility] Anion Gap 11 3 - 11 LAB CHEMISTRY METHOD 07/08/2024 2:39 PM [facility] Glucose 72 70 - 100 mg/dL LAB CHEMISTRY METHOD 07/08/2024 2:39 PM [facility] BUN 16 5 - 25 mg/dL LAB CHEMISTRY METHOD 07/08/2024 2:39 PM [facility] Creatinine 0.61 0.50 - 1.10 mg/dL LAB CHEMISTRY METHOD 07/08/2024 2:39 PM [facility] eGFR 94 >=60 mL/min/1. 73m2 LAB CHEMISTRY METHOD 07/08/2024 2:39 PM EST [facility] Comment:Calculation based on the??Chronic Kidney Disease Epidemiology Collaboration (CKD-EPI) equation refit??without adjustment for race. BUN/Creatinine Ratio 26.2 LAB CHEMISTRY METHOD 07/08/2024 2:39 PM [facility] Calcium 9.5 8.5 - 10.5 mg/dL LAB CHEMISTRY METHOD 07/08/2024 2:39 PM [facility] AST (SGOT) 28 10 - 42 unit/L LAB CHEMISTRY METHOD 07/08/2024 2:39 PM [facility] ALT (SGPT) 22 10 - 60 unit/L LAB CHEMISTRY METHOD 07/08/2024 2:39 PM [facility] Alkaline Phosphatase 79 42 - 121 unit/L LAB CHEMISTRY METHOD 07/08/2024 2:39 PM [facility] Total Protein 7.2 6.0 - 8.0 g/dL LAB CHEMISTRY METHOD 07/08/2024 2:39 PM [facility] Albumin 3.5 3.2 - 5.0 g/dL LAB CHEMISTRY METHOD 07/08/2024 2:39 PM [facility] Total Bilirubin 0.2 0.0 - 1.4 mg/dL LAB CHEMISTRY METHOD 07/08/2024 2:39 PM [facility] Blood Venous blood specimen / Unknown Venipuncture / Unknown 07/08/2024 6:23 AM EST 07/08/2024 10:53 AM EST us Kenny Malave MD LAB BLOOD ORDERABLES Final Resul t [facility] [address] [place] [address], [place] [phone] * Basic metabolic panel (06/08/2024 7:16 AM EST) Only the most recent of10 resultswithin the time period is included. Sodium 136 133 - 145 mmol/L LAB CHEMISTRY METHOD 06/08/2024 11:51 AM [facility] Potassium 5.0 3.5 - 5.5 mmol/L LAB CHEMISTRY METHOD 06/08/2024 11:51 AM [facility] Comment:Results verified by repeat testing Chloride 102 96 - 110 mmol/L LAB CHEMISTRY METHOD 06/08/2024 11:51 AM [facility] CO2 26 21 - 32 mmol/L LAB CHEMISTRY METHOD 06/08/2024 11:51 AM [facility] Anion Gap 8 3 - 11 LAB CHEMISTRY METHOD 06/08/2024 11:51 AM [facility] Glucose 78 70 - 100 mg/dL LAB CHEMISTRY METHOD 06/08/2024 11:51 AM [facility] BUN 17 5 - 25 mg/dL LAB CHEMISTRY METHOD 06/08/2024 11:51 AM [facility] Creatinine 0.53 0.50 - 1.10 mg/dL LAB CHEMISTRY METHOD 06/08/2024 11:51 AM [facility] eGFR 97 >=60 mL/min/1. 73m2 LAB CHEMISTRY METHOD 06/08/2024 11:51 AM [facility] Comment:Calculation based on the??Chronic Kidney Disease Epidemiology Collaboration (CKD-EPI) equation refit??without adjustment for race. BUN/Creatinine Ratio 32.1 LAB CHEMISTRY METHOD 06/08/2024 11:51 AM [facility] Calcium 9.6 8.5 - 10.5 mg/dL LAB CHEMISTRY METHOD 06/08/2024 11:51 AM [facility] Blood Venous blood specimen / Unknown Venipuncture / Unknown 06/08/2024 7:16 AM EST 06/08/2024 9:26 AM EST us Kenny Malave MD LAB BLOOD ORDERABLES Final Resul t [facility] [address] [place] [address], [place] [phone] * Sodium, urine, random (04/22/2024 4:20 AM EST) Only the most recent of2 resultswithin the time period is included. Sodium, Ur 54 mmol/L LAB CHEMISTRY METHOD 04/22/2024 11:29 AM EST [facility] Urine Urine specimen obtained by clean catch procedure / Unknown 04/22/2024 4:20 AM EST 04/22/2024 9:49 AM EST us Ever Reyna MD LAB URINE ORDERABLES Final Res ult Performing Organization Address [facility] Co de Phone Number [facility] [address] [place] [address], [place] [phone] * Osmolality, urine (04/22/2024 4:20 AM EST) Only the most recent of2 resultswithin the time period is included. Osmolality, Urine 516 300 - 1,300 mOsm/kg LAB CHEMISTRY METHOD 04/22/2024 11:23 AM EST [facility] Urine Urine specimen obtained by clean catch procedure / Unknown 04/22/2024 4:20 AM EST 04/22/2024 9:49 AM EST us Ever Reyna MD LAB URINE ORDERABLES Final Res ult Performing Organization Address City/[facility]/ZIP Co de Phone Number [facility] [address] [place] [address], [place] [phone] * Lipase (04/21/2024 6:13 AM EST) Lipase 47 13 - 75 unit/L LAB CHEMISTRY METHOD 04/21/2024 10:03 AM EST [facility] Blood Venous blood specimen / Unknown Venipuncture / Unknown 04/21/2024 6:13 AM EST 04/21/2024 8:46 AM EST Ever Reyna MD LAB BLOOD ORDERABLES Final Res ult Performing Organization Address [facility] Co de Phone Number [facility] [address] [place] [address], [place] [phone] * Amylase (04/21/2024 6:13 AM EST) [facility] Amylase 51 25 - 115 unit/L LAB CHEMISTRY METHOD 04/21/2024 10:03 AM EST [facility] Blood Venous blood specimen / Unknown Venipuncture / Unknown 04/21/2024 6:13 AM EST 04/21/2024 8:46 AM EST Ever Reyna MD LAB BLOOD ORDERABLES Final Res ult Performing Organization Address [facility] de Phone Number [facility] [address] [place] [address], [place] [phone] * (ABNORMAL) Osmolality (04/14/2024 4:35 AM EST) [facility] Osmolality Richar 268(L) 280 - 300 mOsm/kg LAB CHEMISTRY METHOD 04/14/2024 11:19 AM EST [facility] Blood Venous blood specimen / Unknown Venipuncture / Unknown 04/14/2024 4:35 AM EST 04/14/2024 9:55 AM EST Ever Reyna MD LAB BLOOD ORDERABLES Final Res ult Performing Organization Address [facility] Co de Phone Number [facility] [address] [place] [address], [place] [phone] * (ABNORMAL) CBC auto differential (04/12/2024 7:35 AM EST) [facility] WBC 6.1 4.8 - 10.8 K/mcL LAB HEMETOLOGY METHOD 04/12/2024 10:32 AM [facility] RBC 4.20(L) 4.50 - 5.50 M/mcL LAB HEMETOLOGY METHOD 04/12/2024 10:32 AM [facility] Hemoglobin 11.8(L) 13.5 - 17.5 g/dL LAB HEMETOLOGY METHOD 04/12/2024 10:32 AM [facility] Hematocrit 36.0(L) 42.0 - 54.0 % LAB HEMETOLOGY METHOD 04/12/2024 10:32 AM [facility] MCV 85.9 79.0 - 98.0 FL LAB HEMETOLOGY METHOD 04/12/2024 10:32 AM [facility] MCH 28.2 27.0 - 32.0 pcg LAB HEMETOLOGY METHOD 04/12/2024 10:32 AM [facility] MCHC 32.8 32.0 - 37.0 g/dL LAB HEMETOLOGY METHOD 04/12/2024 10:32 AM [facility] RDW 13.2 11.0 - 15.0 % LAB HEMETOLOGY METHOD 04/12/2024 10:32 AM [facility] Platelets 424(H) 130 - 400 K/mcL LAB HEMETOLOGY METHOD 04/12/2024 10:32 AM [facility] MPV 8.6 7.0 - 11.0 FL LAB HEMETOLOGY METHOD 04/12/2024 10:32 AM [facility] NRBC 0.0 <1.0 % LAB HEMETOLOGY METHOD 04/12/2024 10:32 AM [facility] NRBC Absolute 0.00 <0.10 K/mcL LAB HEMETOLOGY METHOD 04/12/2024 10:32 AM [facility] Neutrophils Relative 70.8 % LAB HEMETOLOGY METHOD 04/12/2024 10:32 AM [facility] Lymphocytes Relative 14.7 % LAB HEMETOLOGY METHOD 04/12/2024 10:32 AM [facility] Monocytes Relative 13.7 % LAB HEMETOLOGY METHOD 04/12/2024 10:32 AM [facility] Eosinophils Relative 0.0 % LAB HEMETOLOGY METHOD 04/12/2024 10:32 AM [facility] Basophils Relative 0.3 % LAB HEMETOLOGY METHOD 04/12/2024 10:32 AM [facility] Immature Granulocytes Relative 0.5 % LAB HEMETOLOGY METHOD 04/12/2024 10:32 AM [facility] Neutrophils Absolute 4.32 1.50 - 7.00 K/mcL LAB HEMETOLOGY METHOD 04/12/2024 10:32 AM [facility] Lymphocytes Absolute 0.90(L) 1.00 - 5.00 K/mcL LAB HEMETOLOGY METHOD 04/12/2024 10:32 AM [facility] Monocytes Absolute 0.84 0.20 - 1.00 K/mcL LAB HEMETOLOGY METHOD 04/12/2024 10:32 AM [facility] Eosinophils Absolute 0.00 0.00 - 0.50 K/mcL LAB HEMETOLOGY METHOD 04/12/2024 10:32 AM [facility] Basophils Absolute 0.02 0.00 - 0.20 K/mcL LAB HEMETOLOGY METHOD 04/12/2024 10:32 AM [facility] Immature Granulocytes Absolute 0.03 0.00 - 0.03 K/mcL LAB HEMETOLOGY METHOD 04/12/2024 10:32 AM [facility] Blood Venous blood specimen / Unknown Venipuncture / Unknown 04/12/2024 7:35 AM EST 04/12/2024 10:02 AM EST Ever Reyna MD LAB BLOOD ORDERABLES Final Res ult Performing Organization Address City/[facility]/ZIP Co de Phone Number [facility] [address] [place] [address], [place] [phone] * (ABNORMAL) Magnesium (04/12/2024 7:35 AM EST) Magnesium 1.7(L) 1.9 - 2.6 mg/dL LAB CHEMISTRY METHOD 04/12/2024 10:55 AM EST [facility] Blood Venous blood specimen / Unknown Venipuncture / Unknown 04/12/2024 7:35 AM EST 04/12/2024 10:02 AM EST Ever Reyna MD LAB BLOOD ORDERABLES Final Res ult Performing Organization Address [facility]/ZIP Co de Phone Number [facility] [address] [place] [address], [place] [phone] from Last 3 Months Insurance MEDICARE MEDICAID - [place] Care Teams Ash Worker Relationship Specialty Start Date End Date Alan Chanel MD [address] [place] [address] [address] MAGEN Kruger PCP - General Internal Medicine 03/12/24
--- OUTSIDE RECORDS SUMMARY | 2024-07-10 12:42 | XMS_ITS | Encounter Summary ---
Author Organization [facility] Address [address] [place] [address] Care Team Providers Care Salesforce Developer Name Role Phone Alan Chanel MD Primary Care Provider [phone] Encounter Details Date Type Department Care Team (Late st Contact Info) Description 04/15/2024 Lab Requisition [facility] - Main Lab [address] [facility] [place] [address] Ever Reyna MD [address] [place] [address] Encounter for other general examination Social History [...] LAB CHEMISTRY METHOD 04/15/2024 11:04 AM EST [facility] Potassium 4.4 3.5 - 5.5 mmol/L LAB CHEMISTRY METHOD 04/15/2024 11:04 AM EST [facility] Chloride 96 96 - 110 mmol/L LAB CHEMISTRY METHOD 04/15/2024 11:04 AM EST [facility] CO2 25 21 - 32 mmol/L LAB CHEMISTRY METHOD 04/15/2024 11:04 AM [facility] Anion Gap 9 3 - 11 LAB CHEMISTRY METHOD 04/15/2024 11:04 AM [facility] Glucose 78 70 - 100 mg/dL LAB CHEMISTRY METHOD 04/15/2024 11:04 AM [facility] BUN 11 5 - 25 mg/dL LAB CHEMISTRY METHOD 04/15/2024 11:04 AM [facility] Creatinine 0.84 0.70 - 1.30 mg/dL LAB CHEMISTRY METHOD 04/15/2024 11:04 AM [facility] eGFR 92 >=60 mL/min/1. 73m2 LAB CHEMISTRY METHOD 04/15/2024 11:04 AM [facility] Comment:Calculation based on the??Chronic Kidney Disease Epidemiology Collaboration (CKD-EPI) equation refit??without adjustment for race. BUN/Creatinine Ratio 13.1 LAB CHEMISTRY METHOD 04/15/2024 11:04 AM [facility] Calcium 9.3 8.5 - 10.5 mg/dL LAB CHEMISTRY METHOD 04/15/2024 11:04 AM [facility] Blood Venous blood specimen / Unknown Venipuncture / Unknown 04/15/2024 6:06 AM EST 04/15/2024 9:57 AM EST us Ever Reyna MD LAB BLOOD ORDERABLES Final Res ult [facility] [address] [place] [address], documented in this encounter Visit Diagnoses Diagnosis Encounter for other general examination documented in this encounter Care Teams Salesforce Developer Relationship Specialty Start Date End Date Alan Chanel MD [address] [place] [address] Reyna [address] [place] PCP - General Internal Medicine 03/12/24 documented as of this encounter
--- OUTSIDE RECORDS SUMMARY | 2024-07-10 12:42 | XMS_ITS | Continuity of Care Document ---
Author Organization [facility], [facility] Address [address] [place] [address] Care Team Providers Care Heating Technician Name Role Phone DANIEL PETER - 2ND [...] Recorded Time Adult failure to thrive syndrome 769993164 Active 2023 Kenny Malave MD [address] [facility], [facility] [address], [place], [address], [facility] [employer] [facility] 13:42:50 Syndrome of inappropria te vasopressin secretion 72825661 Active 2023 Kenny Malave MD [address] [place] [address], [address], [place], [address], [facility] [employer] [facility] 13:42:57 Unsteady when walking 65572849 Active 2023 Kenny Malave MD [address] [place] [address], [address], [place], [address], [facility] [employer] [facility] 13:43:03 Essential hypertensio n 01716682 Active 2023 Kenny Malave MD [address] [place] [address], [address], [place], [address], [facility] [employer] [facility] 13:43:09 Anemia 827910777 Active 2023 Kenny Malave MD [address], [address], [place], [address], [facility] 4 13:43:14 Chronic obstructive pulmonary disease 85267316 Active 2023 Kenny Malave MD [address], [address], [place], [address], [facility] 4 13:43:19 Osteoporosi s 82133988 Active 2023 Kenny Malave MD [address], [address], [place], [address], [facility] 4 13:43:27 Neuropathy 302019425 Active 2023 Kenny Malave MD [address] [facility], [address], [place], [address], [facility] 4 13:43:33 Mood disorder 66343171 Active 2023 Kenny Malave MD [address] [facility], [address], [place], [address], [facility] 4 13:43:41 Closed fracture of left patella 0490936785969 9105 Active 2023 Kenny Malave MD [address] [facility], [address], [place], [address], [facility] 4 13:44:22 Hearing loss 82314275 Active 2023 Kenny Malave MD [address] [facility], [address], [place], [address], [facility] 4 13:56:41 Problem Notes None recorded. Medical Equipment None Reported. Allergies No known drug allergies Medications Not known to be on any medication Vitals Date Recorded Body weight Heart rate Respiratory rate Body temperature Oxygen saturation Oxygen saturation in Arterial blood by Pulse oximetry Systolic blood pressure Diastolic blood pressure Provider Name and Address Organization Details Last Updated DateTime 5 76335.9 4 g 86 /min 18 /min 98.2 [degF] 96 % 96 % 99 mm[Hg] 60 mm[Hg] Radha Hickey NP [address] [facility], [address], [place], [address], [facility] 5 14:40:59 Social History Question Answer Notes LastModified by Organizat ion Details LastModified Time Tobacco Smoking Status Former Smoker 2 ppd smoker quit early 2023 Kenny Malave MD [address] [facility], [address], [place], [address], [facility] 04/28/2024 13:58:17 Do You Have An Advance Directive? No Information not available 04/28/2024 What Is Your Level Of Alcohol Consumption? None Information not available 04/28/2024 What Is Your Code Status? [id number] [id number] Information not available 04/30/2024 How Much Tobacco [...] Recorded Time Tdap 6 completed Joann Kulwant [facility] 05/05/2024 16:34:17 pneumococcal polysaccharide PPV23 6 completed Joann Blum [facility] 05/05/2024 16:34:32 influenza, unspecified formulation 4 completed Joann Blum [facility] 05/05/2024 16:34:49 influenza, unspecified formulation 3 completed Joann Blum [facility] 05/05/2024 16:34:56 influenza, unspecified formulation 2 completed Joann Blum [facility] 05/05/2024 16:35:02 Past Encounters Encounter ID Performer Location Encounter Start Date Encounter Closed Date Diagnosis/Indication Diagnosis SNOMED-CT Code Diagnosis ICD10 Code Diagnosis Note [id number] MAYDA WHIPPLE NP [address] [address] 05/27/2024 14:06:34 05/28/2024 10:49:56 Closed fracture of left patella [id number] 8997517 S82.015G prior fall with left knee fxcontACL brace in placePT OT eval and tx.Seen by Ortho last week, second request for office note to review.fol low ortho recs and update with concernstr amadol 50 mg q 8 prnmonitor pain controlfu with ortho [facility] as sched. Unsteady when walking 22 826091 R26.89 NWB LLE till cleared by orthoPT OT eval and treat for deconditio ningmonito r Adult fail ure to thrive syndrome 016232720 R62.7 see HPIshe was not able to be cared for in community with tibia fxmonitor need for increased servicesco ntinue supportive care at facilitydi etary to evalmonito r weights Syndrome o f inappropriate vasopressin secretion 85095743 E22.2 monitor Na and need to adjust fluid restrictio nCurrent Na level 134, repeat x 1 05/25 not done - check in amno s/s of siadh Acute hypokalemia 122043 03 E87.6 improved with supplement current K level 3.4monitor lytes - repeat 05/25 not done, check in am Essential hypertension 18432246 I10 bp stablecont inue lisinopril 5 mg qdmonitor bp and need to titrate Anemia 518383536 D50.8 monitor cbcHgb. 11iron studies prn Chronic ob structive pulmonary disease 84245394 J41.1 carrying dx added to PMHmonitor respirator y statusadva ir inhaler 1 puff po bidalbuter ol for wheezes q 4 prn Osteoporosis 90500382 M8 1.0 hx ofcalcium Neuropathy 208063124 G62 .89 hx ofmonitor sx Mood disorder 19835261 F 34.89 with underlying anxietyati van 0.5 mg bidzoloft 50 mg qdSeen by Psych provider 05/11, no new recommenda tionsMonit or mood, behaviors. Viral gastroenteritis 11 3119256 A08.4 N/V/GI upset x 2-3d.Leonides nue symptomati c treatmentR estEncoura ge fluids, clear liquids, advance as able.Hold laxativesP RN imodium and zofran available as well.BMP in am (not done on 05/25) [id number] MAYDA WHIPPLE NP [facility] [address] [place] [address] 06/03/2024 15:04:46 06/05/2024 09:47:09 Viral gastroenteritis 798880686 A08.4 N/V/GI upset x 2-3d last weekNow resolved. Closed fra cture of left patella 0138706551 7478407 S82.015G prior fall with left knee fxcontACL brace in placePT OT eval and tx.Seen by Ortho 2 wks ago, still no note scanned into EMR. Will request again.Foll ow ortho recs and update with concernstr amadol 50 mg q 8 prnmonitor pain controlfu with ortho [facility] as sched. Unsteady when walking 22 258740 R26.89 NWB LLE till cleared by orthoPT OT eval and treat for deconditio ningmonito r Adult fail ure to thrive syndrome 559237959 R62.7 see HPIshe was not able to be cared for in community with tibia fxmonitor need for increased servicesco ntinue supportive care at facilitymo nitor weights, intake Syndrome o f inappropriate vasopressin secretion 06805250 E22.2 monitor Na and need to adjust fluid restrictio nMost recent level 135 on 05/28no s/s of siadhMonit or labs Acute hypokalemia 451161 03 E87.6 improved with supplement current K level 3.3not on obvious K depleting medsmonito r lytes - repeat in am Essential hypertension 02950347 I10 bp stablecont inue lisinopril 5 mg qdmonitor bp and need to titrate Anemia 224709057 D50.8 monitor cbcHgb. 11iron studies prn Chronic ob structive pulmonary disease 32703619 J41.1 carrying dx added to PMHmonitor respirator y statusadva ir inhaler 1 puff po bidalbuter ol for wheezes q 4 prn Osteoporosis 88666254 M8 1.0 hx ofcontinue calcium Neuropathy 007895769 G62 .89 hx ofmonitor sx Mood disorder 06619972 F 34.89 with underlying anxietyati van 0.5 mg bidzoloft 50 mg qdSeen by Psych provider 05/11, no new recommenda tionsMonit or mood, behaviors. [id number] Radha Hickey NP [facility] [address] [address] 06/05/2024 08:46:02 06/08/2024 14:56:21 Viral gastroenteritis 400424694 A08.4 resolvingN /V/GI upset x 2-3d last week with likely potassium loss related to virus and vomitingNo w resolved. Closed fra cture of left patella 8474771934 4481517 S82.015G prior fall with left knee fxcontACL brace in placePT OT eval and tx.Seen by Ortho 2 wks ago, still no note scanned into EMR. Will request again.Foll ow ortho recs and update with concernstr amadol 50 mg q 8 prnmonitor pain controlfu with ortho [facility] as sched. Unsteady when walking 22 516661 R26.89 NWB LLE till cleared by orthoPT OT eval and treat for deconditio ningmonito r Adult fail ure to thrive syndrome 224927202 R62.7 see HPIshe was not able to be cared for in community with tibia fxmonitor need for increased servicesco ntinue supportive care at facilitymo nitor weights, intake Syndrome o f inappropriate vasopressin secretion 55361639 E22.2 monitor Na and need to adjust fluid restrictio nMost recent level 138 improving from last weekno s/s of siadhMonit or labs Acute hypokalemia 614710 03 E87.6 current K level 3.2 with recent loss for gi virus06/05 start potassium 40 meq x 2 dosesrepea t labs on 2/3 Chronic ob structive pulmonary disease 88088235 J41.1 carrying dx added to PMHmonitor respirator y statusadva ir inhaler 1 puff po bidalbuter ol for wheezes q 4 prn Mood disorder 18266482 F 34.89 with underlying anxietyati van 0.5 mg bidzoloft 50 mg qdSeen by Psych provider 05/11, no new recommenda tionsMonit or mood, behaviors. Essential hypertension 11303375 I10 bp stablecont inue lisinopril 5 mg qdmonitor bp and need to titrate [id number] Radha Hickey NP [facility] [address] [address] 06/11/2024 11:27:16 06/12/2024 13:49:32 Acute hypokalemia 86596502 E87.6 labs improved on 06/08 with k supplement sp gi virus Viral gastroenteritis 11 A08.4 resolvedN/ V/GI upset x 2-3d last week with likely potassium loss related to virus and vomitingNo w resolved. Closed fra cture of left patella 9958067868 8517628 S82.015G prior fall with left knee fxcontACL brace in placePT OT eval and tx.Seen by Ortho 2 wks ago, still no note scanned into EMR. Will request again.Foll ow ortho recs and update with concernstr amadol 50 mg q 8 prnmonitor pain controlfu with ortho [facility] as sched. Unsteady when walking 22 802505 R26.89 NWB LLE till cleared by orthoPT OT eval and treat for deconditio ningmonito r Adult fail ure to thrive syndrome 834583730 R62.7 see HPIshe was not able to be cared for in community with tibia fxmonitor need for increased servicesco ntinue supportive care at facilitymo nitor weights, intake Syndrome o f inappropriate vasopressin secretion 71232043 E22.2 monitor Na and need to adjust fluid restrictio nno s/s of siadhMonit or labs as above Chronic ob structive pulmonary disease 00435332 J41.1 carrying dx added to PMHmonitor respirator y statusadva ir inhaler 1 puff po bidalbuter ol for wheezes q 4 prn Mood disorder 40702323 F 34.89 with underlying anxiety, stable hereativan 0.5 mg bidzoloft 50 mg qdSeen by Psych provider 05/11, no new recommenda tionsMonit or mood, behaviors. [id number] MAYDA WHIPPLE NP [facility] [address] [place] [address] 06/17/2024 09:17:58 06/18/2024 13:31:49 Acute hypokalemia 97598262 E87.6 labs improved on 06/08 = 5Continue to monitor Viral gastroenteritis 11 3471202 A08.4 resolved Closed fra cture of left patella 8898874017 9676263 S82.015G prior fall with left knee fxcontACL brace in placePT OT eval and tx.Follow ortho recs and update with concernsNe xt appt. 06/30tramad ol 50 mg q 8 prnmonitor pain control Unsteady when walking 22 254638 R26.89 NWB LLE till cleared by orthoPT OT eval and treat for deconditio ningmonito r Adult fail ure to thrive syndrome 901539007 R62.7 see HPIshe was not able to be cared for in community with tibia fxmonitor need for increased services in prep. for dischargec ontinue supportive care at facilitymo nitor weights, intake Syndrome o f inappropriate vasopressin secretion 82915057 E22.2 monitor Na, currently 136Does not appear to be on a FR at this time.no s/s of siadhMonit or labs Chronic ob structive pulmonary disease 54936485 J41.1 monitor respirator y status - currently stablecont inue:advai r inhaler 1 puff po bidalbuter ol for wheezes q 4 prn Mood disorder 45319719 F 34.89 with underlying anxietyCon tinue:ativ an 0.5 mg bidzoloft 50 mg qdSeen by Psych provider 05/11, no new recommenda tionsMonit or mood, behaviors. Essential hypertension 07925267 I10 VSScontinu e lisinopril 5 mg qdmonitor bp and need to titrate Osteoporosis 32853244 M8 1.0 hx ofcontinue calcium Anemia 598000766 D50.8 monitor cbcHgb. 10.6iron studies prn Neuropathy 029222752 G62 .89 hx ofmonitor sx [id number] Radha Hickey NP [facility] [address] [address] 06/24/2024 10:59:23 06/26/2024 16:05:53 Acute hypokalemia 11295833 E87.6 stablelike ly related to gi viruslabs improved on 2/3 = 5Continue to monitor Viral gastroenteritis 11 4253835 A08.4 resolved Closed fra cture of left patella 1004147896 5674799 S82.015G prior fall with left knee fxcontACL brace in placePT OT eval and tx.Follow ortho recs and update with concernsNe xt appt. 06/30tramad ol 50 mg q 8 prnmonitor pain control Unsteady when walking 22 680785 R26.89 NWB LLE till cleared by orthoPT OT eval and treat for deconditio funmilayo prnmonitor Adult fail ure to thrive syndrome 311266477 R62.7 not able to be cared for in community with tibia fxmonitor need for increased services in prep. for dischargec ontinue supportive care at facilitymo nitor weights, intake Syndrome o f inappropriate vasopressin secretion 96548377 E22.2 monitor Na, labs as aboveDoes not appear to be on a FR at this time.no s/s of siadhMonit or labs Chronic ob structive pulmonary disease 69881643 J41.1 monitor respirator y status - currently stablecont inue:advai r inhaler 1 puff po bidalbuter ol for wheezes q 4 prn Mood disorder 72000180 F 34.89 with underlying anxiety, stable on [...] Member ID Rock Member ID Guarantor Name 06/24/2024 1 [place] [employer] Trevon Emilia Lauren [id number] Trevon Lauren 06/24/2024 2 [place] [facility] Trevon Lauren [id number] Trevon [facility] Notes Date Note Type Note Provider Name and Address Organization Details Recorded Time 06/24/2024 text/html Trevon is seen t richie [...] 3 months till cleared by ortho. Radha Hickey NP [address] [facility], [address], [place], [address], [facility] - [place] 06/24/2024 14:50:41 OBGyn Episode No OBEpisode recorded.
--- OUTSIDE RECORDS SUMMARY | 2024-07-10 12:42 | XMS_ITS | Encounter Summary ---
Author Organization [facility] Address [address] [place] [address] Care Team Providers Care Kickboxing Instructor Name Role Phone Alan Chanel MD Primary Care Provider [phone] Encounter Details Date Type Department Care Team (Late st Contact Info) Description 04/22/2024 Lab Requisition [facility] - Main Lab [address] [facility] [place] [address] Ever Reyna MD [address] [place] [address] Encounter for other general examination Social History [...] LAB CHEMISTRY METHOD 04/22/2024 11:[address] [facility] Urine Urine specimen obtained by clean catch procedure / Unknown 04/22/2024 4:20 AM EST 04/22/2024 9:49 AM EST us Ever Reyna MD LAB URINE ORDERABLES Final Res ult Performing Organization Address City/[facility]/ZIP Co de Phone Number [facility] [address] [place] [address], [place] [phone] * Sodium, urine, random (04/22/2024 4:20 AM EST) Sodium, Ur 54 mmol/L LAB CHEMISTRY METHOD 04/22/2024 11:29 AM EST [facility] Urine Urine specimen obtained by clean catch procedure / Unknown 04/22/2024 4:20 AM EST 04/22/2024 9:49 AM EST Ever Reyna MD LAB URINE ORDERABLES Final Res ult Performing Organization Address [facility] Co de Phone Number [facility] [address] [place] [address], [place] [phone] documented in this encounter Visit Diagnoses Diagnosis Encounter for other general examination documented in this encounter Care Teams Kickboxing Instructor Relationship Specialty Start Date End Date Alan Chanel MD [address] [place] [address] Dr Reyna Kruger [place] PCP - General Internal Medicine 03/12/24 documented as of this encounter
--- OUTSIDE RECORDS SUMMARY | 2024-07-10 12:42 | XMS_ITS | Encounter Summary ---
Author Organization [facility] Address [address] [place] [address] Care Team Providers Care Aircraft Powerplant Repairer Name Role Phone Alan Chanel MD Primary Care Provider Encounter Details Date Type Department Care Team (Late st Contact Info) Description 04/17/2024 Lab Requisition [facility] - Main Lab [address] [place] [address] Ever Reyna MD [address] [place] [address] Encounter for other general examination Social History [...] AM EST) WBC 4.4(L) 4.8 - 10.8 K/[facility] LAB HEMETOLOGY METHOD 04/17/2024 11:22 AM EST [facility] RBC 4.20(L) 4.50 - 5.50 M/[facility] LAB HEMETOLOGY METHOD 04/17/2024 11:22 AM EST [facility] Hemoglobin 11.8(L) 13.5 - 17.5 g/dL LAB HEMETOLOGY METHOD 04/17/2024 11:22 AM [facility] Hematocrit 35.2(L) 42.0 - 54.0 % LAB HEMETOLOGY METHOD 04/17/2024 11:22 AM [facility] MCV 84.2 79.0 - 98.0 FL LAB HEMETOLOGY METHOD 04/17/2024 11:22 AM [facility] MCH 28.2 27.0 - 32.0 pcg LAB HEMETOLOGY METHOD 04/17/2024 11:22 AM [facility] MCHC 33.5 32.0 - 37.0 g/dL LAB HEMETOLOGY METHOD 04/17/2024 11:22 AM [facility] RDW 13.4 11.0 - 15.0 % LAB HEMETOLOGY METHOD 04/17/2024 11:22 AM [facility] Platelets 467(H) 130 - 400 K/mcL LAB HEMETOLOGY METHOD 04/17/2024 11:22 AM [facility] MPV 8.5 7.0 - 11.0 FL LAB HEMETOLOGY METHOD 04/17/2024 11:22 AM [facility] NRBC 0.0 <1.0 % LAB HEMETOLOGY METHOD 04/17/2024 11:22 AM [facility] NRBC Absolute 0.00 <0.10 K/mcL LAB HEMETOLOGY METHOD 04/17/2024 11:22 AM [facility] Blood Venous blood specimen / Unknown Venipuncture / Unknown 04/17/2024 6:06 AM EST 04/17/2024 10:27 AM EST us Ever Reyna MD LAB BLOOD ORDERABLES Final Res ult [facility] [address] [place] [address], [place] [phone] * (ABNORMAL) Comprehensive metabolic panel (04/17/2024 6:06 AM EST) Sodium 132(L) 133 - 145 mmol/L LAB CHEMISTRY METHOD 04/17/2024 12:19 PM [facility] Potassium 4.5 3.5 - 5.5 mmol/L LAB CHEMISTRY METHOD 04/17/2024 12:19 PM [facility] Chloride 96 96 - 110 mmol/L LAB CHEMISTRY METHOD 04/17/2024 12:19 PM [facility] CO2 27 21 - 32 mmol/L LAB CHEMISTRY METHOD 04/17/2024 12:19 PM [facility] Anion Gap 9 3 - 11 LAB CHEMISTRY METHOD 04/17/2024 12:19 PM [facility] Glucose 88 70 - 100 mg/dL LAB CHEMISTRY METHOD 04/17/2024 12:19 PM [facility] BUN 8 5 - 25 mg/dL LAB CHEMISTRY METHOD 04/17/2024 12:19 PM [facility] Creatinine 0.65(L) 0.70 - 1.30 mg/dL LAB CHEMISTRY METHOD 04/17/2024 12:19 PM [facility] eGFR 99 >=60 mL/min/1. 73m2 LAB CHEMISTRY METHOD 04/17/2024 12:19 PM [facility] Comment:Calculation based on the??Chronic Kidney Disease Epidemiology Collaboration (CKD-EPI) equation refit??without adjustment for race. BUN/Creatinine Ratio 12.3 LAB CHEMISTRY METHOD 04/17/2024 12:19 PM [facility] Calcium 9.1 8.5 - 10.5 mg/dL LAB CHEMISTRY METHOD 04/17/2024 12:19 PM [facility] AST (SGOT) 107(H) 10 - 42 unit/L LAB CHEMISTRY METHOD 04/17/2024 12:19 PM [facility] ALT (SGPT) 71(H) 10 - 60 unit/L LAB CHEMISTRY METHOD 04/17/2024 12:19 PM [facility] Alkaline Phosphatase 175(H) 42 - 121 unit/L LAB CHEMISTRY METHOD 04/17/2024 12:19 PM [facility] Total Protein 6.6 6.0 - 8.0 g/dL LAB CHEMISTRY METHOD 04/17/2024 12:19 PM [facility] Albumin 3.2 3.2 - 5.0 g/dL LAB CHEMISTRY METHOD 04/17/2024 12:19 PM [facility] Total Bilirubin 0.3 0.0 - 1.4 mg/dL LAB CHEMISTRY METHOD 04/17/2024 12:19 PM [facility] Blood Venous blood specimen / Unknown Venipuncture / Unknown 04/17/2024 6:06 AM EST 04/17/2024 10:27 AM EST us Ever Reyna MD LAB BLOOD ORDERABLES Final Res ult [facility] [address] [place] [address], documented in this encounter Visit Diagnoses Diagnosis Encounter for other general examination documented in this encounter Care Teams Aircraft Powerplant Repairer Relationship Specialty Start Date End Date Alan Chanel MD [address] [place] [address] Dr Reyna Kruger [place] PCP - General Internal Medicine 03/12/24 documented as of this encounter
--- OUTSIDE RECORDS SUMMARY | 2024-07-10 12:42 | XMS_ITS | Encounter Summary ---
Author Organization [facility] Address [address] [place] [address] Care Team Providers Care Retail Wireless Sales Representative Name Role Phone Alan Chanel MD Primary Care Provider Encounter Details Date Type Department Care Team (Late st Contact Info) Description 05/04/2024 Lab Requisition [facility] - Main Lab [address] [place] [address] Kenny Malave MD 38 [facility] [address] [place], [address] Essential (primary) hypertension Social History Tobacco [...] LAB CHEMISTRY METHOD 05/05/2024 10:55 AM EST [facility] Potassium 3.8 3.5 - 5.5 mmol/L LAB CHEMISTRY METHOD 05/05/2024 10:55 AM EST [facility] Chloride 95(L) 96 - 110 mmol/L LAB CHEMISTRY METHOD 05/05/2024 10:55 AM [facility] CO2 29 21 - 32 mmol/L LAB CHEMISTRY METHOD 05/05/2024 10:55 AM [facility] Anion Gap 7 3 - 11 LAB CHEMISTRY METHOD 05/05/2024 10:55 AM [facility] Glucose 89 70 - 100 mg/dL LAB CHEMISTRY METHOD 05/05/2024 10:55 AM [facility] BUN 16 5 - 25 mg/dL LAB CHEMISTRY METHOD 05/05/2024 10:55 AM [facility] Creatinine 0.61 0.50 - 1.10 mg/dL LAB CHEMISTRY METHOD 05/05/2024 10:55 AM [facility] eGFR 94 >=60 mL/min/1. 73m2 LAB CHEMISTRY METHOD 05/05/2024 10:55 AM [facility] Comment:Calculation based on the??Chronic Kidney Disease Epidemiology Collaboration (CKD-EPI) equation refit??without adjustment for race. BUN/Creatinine Ratio 26.2 LAB CHEMISTRY METHOD 05/05/2024 10:55 AM [facility] Calcium 8.9 8.5 - 10.5 mg/dL LAB CHEMISTRY METHOD 05/05/2024 10:55 AM [facility] Blood Venous blood specimen / Unknown Venipuncture / Unknown 05/05/2024 6:32 AM EST 05/05/2024 10:13 AM EST us Kenny Malave MD LAB BLOOD ORDERABLES Final Resul t [facility] [address] [place] [address], * (ABNORMAL) Complete blood count (05/05/2024 6:32 AM EST) WBC 6.4 4.8 - 10.8 K/mcL LAB HEMETOLOGY METHOD 05/05/2024 10:59 AM [facility] RBC 3.90 3.80 - 4.80 M/[facility] LAB HEMETOLOGY METHOD 05/05/2024 10:59 AM [facility] Hemoglobin 10.7(L) 11.5 - 16.0 g/dL LAB HEMETOLOGY METHOD 05/05/2024 10:59 AM [facility] Hematocrit 32.7(L) 35.0 - 47.0 % LAB HEMETOLOGY METHOD 05/05/2024 10:59 AM [facility] MCV 84.3 79.0 - 98.0 FL LAB HEMETOLOGY METHOD 05/05/2024 10:59 AM [facility] MCH 27.6 27.0 - 32.0 pcg LAB HEMETOLOGY METHOD 05/05/2024 10:59 AM [facility] MCHC 32.7 32.0 - 37.0 g/dL LAB HEMETOLOGY METHOD 05/05/2024 10:59 AM [facility] RDW 13.2 11.0 - 15.0 % LAB HEMETOLOGY METHOD 05/05/2024 10:59 AM [facility] Platelets 551(H) 130 - 400 K/[facility] LAB HEMETOLOGY METHOD 05/05/2024 10:59 AM [facility] MPV 8.5 7.0 - 11.0 FL LAB HEMETOLOGY METHOD 05/05/2024 10:59 AM [facility] NRBC 0.0 <1.0 % LAB HEMETOLOGY METHOD 05/05/2024 10:59 AM [facility] NRBC Absolute 0.00 <0.10 K/mcL LAB HEMETOLOGY METHOD 05/05/2024 10:59 AM [facility] Blood Venous blood specimen / Unknown Venipuncture / Unknown 05/05/2024 6:32 AM EST 05/05/2024 10:14 AM EST us Kenny Malave MD LAB BLOOD ORDERABLES [facility] [address] [place] [address], documented in this encounter Visit Diagnoses Diagnosis Essential (primary) hypertension Unspecified essential hypertension documented in this encounter Care Teams Retail Wireless Sales Representative Relationship Specialty Start Date End Date Alan Chanel MD [address] [place] [address] Dr [address] [place], [place] PCP - General Internal Medicine 03/12/24 documented as of this encounter
--- OUTSIDE RECORDS SUMMARY | 2024-07-10 12:42 | XMS_ITS | Encounter Summary ---
Author Organization [facility] Address [address] [place] [address] Care Team Providers Care Shell Mold Bonding Machine Operator Name Role Phone Alan Chanel MD Primary Care Provider Encounter Details Date Type Department Care Team (Late st Contact Info) Description 04/22/2024 Lab Requisition [facility] - Main Lab [address] [facility] [place] [address] Ever Reyna MD [address] [place] [address] Encounter for other general examination Social History [...] LAB CHEMISTRY METHOD 04/22/2024 11:08 AM EST [facility] Potassium 3.6 3.5 - 5.5 mmol/L LAB CHEMISTRY METHOD 04/22/2024 11:08 AM EST [facility] Chloride 91(L) 96 - 110 mmol/L LAB CHEMISTRY METHOD 04/22/2024 11:08 AM EST [facility] CO2 26 21 - 32 mmol/L LAB CHEMISTRY METHOD 04/22/2024 11:08 AM [facility] Anion Gap 10 3 - 11 LAB CHEMISTRY METHOD 04/22/2024 11:08 AM [facility] Glucose 77 70 - 100 mg/dL LAB CHEMISTRY METHOD 04/22/2024 11:08 AM [facility] BUN 10 5 - 25 mg/dL LAB CHEMISTRY METHOD 04/22/2024 11:08 AM [facility] Creatinine 0.55(L) 0.70 - 1.30 mg/dL LAB CHEMISTRY METHOD 04/22/2024 11:08 AM [facility] eGFR 104 >=60 mL/min/1. 73m2 LAB CHEMISTRY METHOD 04/22/2024 11:08 AM [facility] Comment:Calculation based on the??Chronic Kidney Disease Epidemiology Collaboration (CKD-EPI) equation refit??without adjustment for race. BUN/Creatinine Ratio 18.2 LAB CHEMISTRY METHOD 04/22/2024 11:08 AM [facility] Calcium 8.8 8.5 - 10.5 mg/dL LAB CHEMISTRY METHOD 04/22/2024 11:08 AM [facility] Blood Venous blood specimen / Unknown Venipuncture / Unknown 04/22/2024 5:40 AM EST 04/22/2024 10:03 AM EST us Ever Reyna MD LAB BLOOD ORDERABLES Final Res ult [facility] [address] [place] [address], documented in this encounter Visit Diagnoses Diagnosis Encounter for other general examination documented in this encounter Care Teams Shell Mold Bonding Machine Operator Relationship Specialty Start Date End Date Alan Chanel MD [address] [place] [address] Reyna [address] [place] PCP - General Internal Medicine 03/12/24 documented as of this encounter
== END 2024-07-09 11:00 | disposition home or self-care (01) ==
LOC: HO.HOSX 10:59
PROVIDERS: Visit Provider Physician Assistant
DX: S82.142A Displaced bicondylar fracture of left tibia, initial encounter for closed fracture (principal); M25.562 Pain in left knee
CPT/HCPCS: 73562; 99212

== ENCOUNTER 2024-08-18 09:17 | Outpatient (AMB) | payer MEDICARE, MEDICAID, SELFPAY ==
--- NOTE | 2024-08-18 09:45 | A.OFFVIS_ITS ---
Intake Visit Reasons: OV - LT tibial plateau fx, DOI 03/2024 Intake Note: Trevon is a 73 year old female who presents to the office today for a follow up of her left tibial plateau fracture, DOI 03/2024. Patient states she is doing well. She was prescribed pain medication for her back which is helping her knee. Allergies No Known Allergies [No Known Allergies*] Allergy (Verified 08/18/24 09:47) HPI HPI OV - LT tibial plateau fx, DOI 03/2024: Details: Ms. Aguilar this is a 74-year-old female who presents to the office today for routine follow-up status post left tibial plateau fracture that she sustained in March of 2024. She reports that she has been in the brace fully unlocked working with physical therapy on range of motion and gait training. She denies any discomfort or pain. Denies any concerns with range of motion. [facility] Medical History De Quervain's tenosynovitis, left Arthritis of hand, left, degenerative Hearing impairment Smoker Depression Anxiety Osteoporosis Urinary urgency Urinary incontinence Varicose veins of bilateral lower extremities with pain Peripheral polyneuropathy Pure hypercholesterolemia Anemia Compression fracture of L4 vertebra with routine healing Lumbar degenerative disc disease Benign essential hypertension COPD (chronic obstructive pulmonary disease) Surgical History History of cystoscopy History of bilateral cataract extraction Family History Father No problems noted. Mother Lung cancer Sister Down syndrome Maternal Grandfather Lung cancer Maternal Grandmother Lung cancer Social History Household Members: None Housing: House Alcohol intake: never Patient Tobacco Use Status: Former Tobacco user Tobacco use type: Cigarette Cigarette Packs Per Day: 2 Cigarettes Per Day: 40 e-Cigarette/Vaping Use: Never Used Second Hand Smoke Exposure: Yes Advance Directives Date on File: 04/10/24 service: No Current occupational status: retired Cognitive needs: No Hearing needs: Yes Vision needs: Yes (Glasses) Review of Systems Const All systems reviewed & are unremarkable except as noted in HPI and below Physical Exam Const General: cooperative, healthy appearing and no acute distress Orientation/consciousness: patient oriented x3 Resp Effort & Inspection: normal respiratory effort and able to speak in complete sentences Cardio Rate: regular rate Peripheral pulses: Peripheral pulses 2+ throughout Skin General skin exam: no rashes or lesions noted Lesions: no lesions Rashes: no rashes Neuro General: patient oriented x3 Extrem Other: Left knee: Normal to inspection. No ecchymosis, erythema, or joint effusion. Mild tenderness to palpation along the lateral joint line. No tenderness to palpation medial joint line. Range of motion 0-100 degrees. Assessment & Plan Assessment & Plan (1) Fracture of left tibial plateau: Code(s): S82.142A - Displaced bicondylar fracture of left tibia, initial encounter for closed fracture Category: Medical Plan Ms. Aguilar this is a 74-year-old female who presents to the office today for routine follow-up status post left tibial plateau fracture that she sustained in March of 2024. She reports that she has been in the brace fully unlocked working with physical therapy on range of motion and gait training. She denies any discomfort or pain. Denies any concerns with range of motion. While in the office today, I recommended that the patient discontinue the brace at this time. She may weightbear as tolerated with the use of a walker. She can continue to work with physical therapy at [facility] for glute core and quad strengthening as well as gait training with a walker. She will discharge once physical therapy finds her safe to navigate at home. She will follow up with Orthopedics p.r.n., sooner if needed. X-rays of the left knee which were obtained while in the office today and were reviewed by me, Marielle Man PA-C, revealed healed tibial plateau fracture. Orders: Orders XR knee LT 3V Today M25.569 - Pain in unspecified knee Coding Level of Care Code Est Pt Level 3 (05820) Diagnoses Fracture of left tibial plateau S82.142A
--- OUTSIDE RECORDS SUMMARY | 2024-08-18 10:09 | XMS_ITS | Encounter Summary ---
Author Organization [facility] Address [address] [place] [address] Care Team Providers Care Set Staff Fitter Name Role Phone Alan Chanel MD Primary Care Provider Encounter Details Date Type Department Care Team (Late st Contact Info) Description 06/04/2024 Lab Requisition [facility] Lab [address] [place] [address] Kenny Malave MD 38 [facility] [address] [place], [address] Other chcf (current) drug therapy Social History Tobacco Use [...] PANEL Routine 06/04/2024 5:36 AM EST Other local intermodal truck driver (current) drug therapy documented in this encounter Results * (ABNORMAL) Basic metabolic panel (06/04/2024 5:36 AM EST) Sodium 138 133 - 145 mmol/L LAB CHEMISTRY METHOD 06/04/2024 11:25 AM EST [facility] Potassium 3.2(L) 3.5 - 5.5 mmol/L LAB CHEMISTRY METHOD 06/04/2024 11:25 AM EST [facility] Chloride 102 96 - 110 mmol/L LAB CHEMISTRY METHOD 06/04/2024 11:25 AM EST [facility] CO2 28 21 - 32 mmol/L LAB CHEMISTRY METHOD 06/04/2024 11:25 AM EST [facility] Anion Gap 8 3 - 11 LAB CHEMISTRY METHOD 06/04/2024 11:25 AM [facility] Glucose 71 70 - 100 mg/dL LAB CHEMISTRY METHOD 06/04/2024 11:25 AM [facility] BUN 18 5 - 25 mg/dL LAB CHEMISTRY METHOD 06/04/2024 11:25 AM [facility] Creatinine 0.57 0.50 - 1.10 mg/dL LAB CHEMISTRY METHOD 06/04/2024 11:25 AM [facility] eGFR 95 >=60 mL/min/1. 73m2 LAB CHEMISTRY METHOD 06/04/2024 11:25 AM EST [facility] Comment:Calculation based on the??Chronic Kidney Disease Epidemiology Collaboration (CKD-EPI) equation refit??without adjustment for race. BUN/Creatinine Ratio 31.6 LAB CHEMISTRY METHOD 06/04/2024 11:25 AM [facility] Calcium 8.8 8.5 - 10.5 mg/dL LAB CHEMISTRY METHOD 06/04/2024 11:25 AM [facility] Blood Venous blood specimen / Unknown Venipuncture / Unknown 06/04/2024 5:36 AM EST 06/04/2024 9:58 AM EST us Kenny Malave MD LAB BLOOD ORDERABLES Final Resul t [facility] [address] [place] [address], documented in this encounter Visit Diagnoses Diagnosis Other chcf (current) drug therapy documented in this encounter Care Teams Set Staff Fitter Relationship Specialty Start Date End Date Alan Chanel MD [address] [place] [address] Dr Reyna [address] [place] PCP - General Internal Medicine 03/12/24 documented as of this encounter
--- OUTSIDE RECORDS SUMMARY | 2024-08-18 10:09 | XMS_ITS | Encounter Summary ---
Author Organization [facility] Address [address] [place] [address] Care Team Providers Care Flight Attendant Ramp Name Role Phone Alan Chanel MD Primary Care Provider Encounter Details Date Type Department Care Team (Late st Contact Info) Description 04/13/2024 Lab Requisition [facility] Lab [address] [facility] [place] [address] Ever Reyna MD [address] [place] [address] Encounter for other general examination Social History [...] LAB CHEMISTRY METHOD 04/13/2024 1:06 PM EST [facility] Potassium 4.0 3.5 - 5.5 mmol/L LAB CHEMISTRY METHOD 04/13/2024 1:06 PM EST [facility] Chloride 92(L) 96 - 110 mmol/L LAB CHEMISTRY METHOD 04/13/2024 1:06 PM EST [facility] CO2 26 21 - 32 mmol/L LAB CHEMISTRY METHOD 04/13/2024 1:06 PM [facility] Anion Gap 10 3 - 11 LAB CHEMISTRY METHOD 04/13/2024 1:06 PM [facility] Glucose 59(L) 70 - 100 mg/dL LAB CHEMISTRY METHOD 04/13/2024 1:06 PM [facility] BUN 17 5 - 25 mg/dL LAB CHEMISTRY METHOD 04/13/2024 1:06 PM [facility] Creatinine 0.82 0.70 - 1.30 mg/dL LAB CHEMISTRY METHOD 04/13/2024 1:06 PM [facility] eGFR 92 >=60 mL/min/1. 73m2 LAB CHEMISTRY METHOD 04/13/2024 1:06 PM [facility] Comment:Calculation based on the??Chronic Kidney Disease Epidemiology Collaboration (CKD-EPI) equation refit??without adjustment for race. BUN/Creatinine Ratio 20.7 LAB CHEMISTRY METHOD 04/13/2024 1:06 PM [facility] Calcium 9.9 8.5 - 10.5 mg/dL LAB CHEMISTRY METHOD 04/13/2024 1:06 PM [facility] Blood Venous blood specimen / Unknown Venipuncture / Unknown 04/13/2024 5:20 AM EST 04/13/2024 11:02 AM EST us Ever Reyna MD LAB BLOOD ORDERABLES Final Res ult [facility] [address] [place] [address], documented in this encounter Visit Diagnoses Diagnosis Encounter for other general examination documented in this encounter Care Teams Flight Attendant Ramp Relationship Specialty Start Date End Date Alan Chanel MD [address] [place] [address] Reyna [address] [place] PCP - General Internal Medicine 03/12/24 documented as of this encounter
--- OUTSIDE RECORDS SUMMARY | 2024-08-18 10:09 | XMS_ITS | Encounter Summary ---
Author Organization [facility] Address [address] [place] [address] Care Team Providers Care Geospatial Specialist Name Role Phone Alan Chanel MD Primary Care Provider Encounter Details Date Type Department Care Team (Late st Contact Info) Description 05/11/2024 Lab Requisition [facility] - Main Lab [address] [place] [address] Kenny Malave MD 38 [facility] [address] [place], [address] Essential (primary) hypertension Social History Tobacco [...] LAB CHEMISTRY METHOD 05/12/2024 9:30 AM EST [facility] Potassium 4.0 3.5 - 5.5 mmol/L LAB CHEMISTRY METHOD 05/12/2024 9:30 AM EST [facility] Chloride 101 96 - 110 mmol/L LAB CHEMISTRY METHOD 05/12/2024 9:30 AM [facility] CO2 26 21 - 32 mmol/L LAB CHEMISTRY METHOD 05/12/2024 9:30 AM [facility] Anion Gap 8 3 - 11 LAB CHEMISTRY METHOD 05/12/2024 9:30 AM [facility] Glucose 84 70 - 100 mg/dL LAB CHEMISTRY METHOD 05/12/2024 9:30 AM [facility] BUN 14 5 - 25 mg/dL LAB CHEMISTRY METHOD 05/12/2024 9:30 AM [facility] Creatinine 0.56 0.50 - 1.10 mg/dL LAB CHEMISTRY METHOD 05/12/2024 9:30 AM [facility] eGFR 96 >=60 mL/min/1. 73m2 LAB CHEMISTRY METHOD 05/12/2024 9:30 AM [facility] Comment:Calculation based on the??Chronic Kidney Disease Epidemiology Collaboration (CKD-EPI) equation refit??without adjustment for race. BUN/Creatinine Ratio 25.0 LAB CHEMISTRY METHOD 05/12/2024 9:30 AM [facility] Calcium 8.5 8.5 - 10.5 mg/dL LAB CHEMISTRY METHOD 05/12/2024 9:30 AM [facility] Blood Venous blood specimen / Unknown Venipuncture / Unknown 05/12/2024 5:47 AM EST 05/12/2024 8:50 AM EST us Kenny Malave MD LAB BLOOD ORDERABLES Final Resul t [facility] [address] [place] [address], * (ABNORMAL) Complete blood count (05/12/2024 5:47 AM EST) WBC 3.6(L) 4.8 - 10.8 K/mcL LAB HEMETOLOGY METHOD 05/12/2024 9:09 AM [facility] RBC 3.70(L) 3.80 - 4.80 M/mcL LAB HEMETOLOGY METHOD 05/12/2024 9:09 AM [facility] Hemoglobin 10.4(L) 11.5 - 16.0 g/dL LAB HEMETOLOGY METHOD 05/12/2024 9:09 AM [facility] Hematocrit 30.8(L) 35.0 - 47.0 % LAB HEMETOLOGY METHOD 05/12/2024 9:09 AM [facility] MCV 84.2 79.0 - 98.0 FL LAB HEMETOLOGY METHOD 05/12/2024 9:09 AM [facility] MCH 28.4 27.0 - 32.0 pcg LAB HEMETOLOGY METHOD 05/12/2024 9:09 AM [facility] MCHC 33.8 32.0 - 37.0 g/dL LAB HEMETOLOGY METHOD 05/12/2024 9:09 AM [facility] RDW 13.5 11.0 - 15.0 % LAB HEMETOLOGY METHOD 05/12/2024 9:09 AM [facility] Platelets 543(H) 130 - 400 K/mcL LAB HEMETOLOGY METHOD 05/12/2024 9:09 AM [facility] MPV 8.3 7.0 - 11.0 FL LAB HEMETOLOGY METHOD 05/12/2024 9:09 AM [facility] NRBC 0.0 <1.0 % LAB HEMETOLOGY METHOD 05/12/2024 9:09 AM [facility] NRBC Absolute 0.00 <0.10 K/mcL LAB HEMETOLOGY METHOD 05/12/2024 9:09 AM [facility] Blood Venous blood specimen / Unknown Venipuncture / Unknown 05/12/2024 5:47 AM EST 05/12/2024 8:50 AM EST us Kenny Malave MD LAB BLOOD ORDERABLES Final Resul t [facility] [address] [place] [address], documented in this encounter Visit Diagnoses Diagnosis Essential (primary) hypertension Unspecified essential hypertension documented in this encounter Care Teams Geospatial Specialist Relationship Specialty Start Date End Date Alan Chanel MD [address] [place] [address] Dr [address] [place], [place] PCP - General Internal Medicine 03/12/24 documented as of this encounter
--- OUTSIDE RECORDS SUMMARY | 2024-08-18 10:09 | XMS_ITS | Encounter Summary ---
Author Organization [facility] Address [address] [place] [address] Care Team Providers Care Parts Department Manager Name Role Phone Alan Chanel MD Primary Care Provider Encounter Details Date Type Department Care Team (Late st Contact Info) Description 05/18/2024 Lab Requisition [facility] - Main Lab [address] [place] [address] Kenny Malave MD [address] [facility] [address] [place], [address] Essential (primary) hypertension Social History Tobacco [...] LAB CHEMISTRY METHOD 05/19/2024 8:54 AM EST [facility] Potassium 3.4(L) 3.5 - 5.5 mmol/L LAB CHEMISTRY METHOD 05/19/2024 8:54 AM EST [facility] Chloride 101 96 - 110 mmol/L LAB CHEMISTRY METHOD 05/19/2024 8:54 AM [facility] CO2 29 21 - 32 mmol/L LAB CHEMISTRY METHOD 05/19/2024 8:54 AM [facility] Anion Gap 4 3 - 11 LAB CHEMISTRY METHOD 05/19/2024 8:54 AM [facility] Glucose 87 70 - 100 mg/dL LAB CHEMISTRY METHOD 05/19/2024 8:54 AM [facility] BUN 15 5 - 25 mg/dL LAB CHEMISTRY METHOD 05/19/2024 8:54 AM [facility] Creatinine 0.60 0.50 - 1.10 mg/dL LAB CHEMISTRY METHOD 05/19/2024 8:54 AM [facility] eGFR 94 >=60 mL/min/1. 73m2 LAB CHEMISTRY METHOD 05/19/2024 8:54 AM [facility] Comment:Calculation based on the??Chronic Kidney Disease Epidemiology Collaboration (CKD-EPI) equation refit??without adjustment for race. BUN/Creatinine Ratio 25.0 LAB CHEMISTRY METHOD 05/19/2024 8:54 AM [facility] Calcium 9.1 8.5 - 10.5 mg/dL LAB CHEMISTRY METHOD 05/19/2024 8:54 AM [facility] Blood Venous blood specimen / Unknown Venipuncture / Unknown 05/19/2024 6:53 AM EST 05/19/2024 7:53 AM EST us Kenny Malave MD LAB BLOOD ORDERABLES Final Resul t [facility] [address] [place] [address], * (ABNORMAL) Complete blood count (05/19/2024 6:53 AM EST) WBC 5.0 4.8 - 10.8 K/[facility] LAB HEMETOLOGY METHOD 05/19/2024 8:33 AM [facility] RBC 4.00 3.80 - 4.80 M/[facility] LAB HEMETOLOGY METHOD 05/19/2024 8:33 AM [facility] Hemoglobin 11.0(L) 11.5 - 16.0 g/dL LAB HEMETOLOGY METHOD 05/19/2024 8:33 AM [facility] Hematocrit 33.7(L) 35.0 - 47.0 % LAB HEMETOLOGY METHOD 05/19/2024 8:33 AM [facility] MCV 85.3 79.0 - 98.0 FL LAB HEMETOLOGY METHOD 05/19/2024 8:33 AM [facility] MCH 27.8 27.0 - 32.0 pcg LAB HEMETOLOGY METHOD 05/19/2024 8:33 AM [facility] MCHC 32.6 32.0 - 37.0 g/dL LAB HEMETOLOGY METHOD 05/19/2024 8:33 AM [facility] RDW 15.0 11.0 - 15.0 % LAB HEMETOLOGY METHOD 05/19/2024 8:33 AM [facility] Platelets 527(H) 130 - 400 K/mcL LAB HEMETOLOGY METHOD 05/19/2024 8:33 AM [facility] MPV 8.5 7.0 - 11.0 FL LAB HEMETOLOGY METHOD 05/19/2024 8:33 AM [facility] NRBC 0.0 <1.0 % LAB HEMETOLOGY METHOD 05/19/2024 8:33 AM [facility] NRBC Absolute 0.00 <0.10 K/mcL LAB HEMETOLOGY METHOD 05/19/2024 8:33 AM [facility] Blood Venous blood specimen / Unknown Venipuncture / Unknown 05/19/2024 6:53 AM EST 05/19/2024 7:53 AM EST us Kenny Malave MD LAB BLOOD ORDERABLES Final Resul t [facility] [address] [place] [address], documented in this encounter Visit Diagnoses Diagnosis Essential (primary) hypertension Unspecified essential hypertension documented in this encounter Care Teams Parts Department Manager Relationship Specialty Start Date End Date Alan Chanel MD [address] [place] [address] Dr [address] [place], [place] PCP - General Internal Medicine 03/12/24 documented as of this encounter
--- OUTSIDE RECORDS SUMMARY | 2024-08-18 10:09 | XMS_ITS | Encounter Summary ---
Author Organization [facility] Address [address] [place] [address] Care Team Providers Care Rib Builder Name Role Phone Alan Chanel MD Primary Care Provider Encounter Details Date Type Department Care Team (Late st Contact Info) Description 07/25/2024 Lab Requisition [facility] Lab [address] [place] [address] Kenny Malave MD [address] [facility] [address] [place], [address] Essential (primary) hypertension Social History Tobacco [...] Associated Diagnosis Comments COMPLETE BLOOD COUNT Routine 07/27/2024 6:21 AM EDT Essential (primary) hypertension COMPREHENSIVE METABOLIC PANEL Routine 07/27/2024 6:21 AM EDT Essential (primary) hypertension documented in this encounter Results * (ABNORMAL) Comprehensive metabolic panel (07/27/2024 6:21 AM EDT) Sodium 129(L) 133 - 145 mmol/L LAB CHEMISTRY METHOD 07/27/2024 12:18 PM EDT [facility] Potassium 4.8 3.5 - 5.5 mmol/L LAB CHEMISTRY METHOD 07/27/2024 12:18 PM EDT [facility] Chloride 96 96 - 110 mmol/L LAB CHEMISTRY METHOD 07/27/2024 12:18 PM [facility] CO2 26 21 - 32 mmol/L LAB CHEMISTRY METHOD 07/27/2024 12:18 PM [facility] Anion Gap 7 3 - 11 LAB CHEMISTRY METHOD 07/27/2024 12:18 PM [facility] Glucose 81 70 - 100 mg/dL LAB CHEMISTRY METHOD 07/27/2024 12:18 PM [facility] BUN 20 5 - 25 mg/dL LAB CHEMISTRY METHOD 07/27/2024 12:18 PM [facility] Creatinine 0.66 0.50 - 1.10 mg/dL LAB CHEMISTRY METHOD 07/27/2024 12:18 PM [facility] eGFR 92 >=60 mL/min/1. 73m2 LAB CHEMISTRY METHOD 07/27/2024 12:18 PM [facility] Comment:Calculation based on the??Chronic Kidney Disease Epidemiology Collaboration (CKD-EPI) equation refit??without adjustment for race. BUN/Creatinine Ratio 30.3 LAB CHEMISTRY METHOD 07/27/2024 12:18 PM [facility] Calcium 9.6 8.5 - 10.5 mg/dL LAB CHEMISTRY METHOD 07/27/2024 12:18 PM [facility] AST (SGOT) 23 10 - 42 unit/L LAB CHEMISTRY METHOD 07/27/2024 12:18 PM [facility] ALT (SGPT) 19 10 - 60 unit/L LAB CHEMISTRY METHOD 07/27/2024 12:18 PM [facility] Alkaline Phosphatase 85 42 - 121 unit/L LAB CHEMISTRY METHOD 07/27/2024 12:18 PM [facility] Total Protein 7.2 6.0 - 8.0 g/dL LAB CHEMISTRY METHOD 07/27/2024 12:18 PM [facility] Albumin 3.6 3.2 - 5.0 g/dL LAB CHEMISTRY METHOD 07/27/2024 12:18 PM EDT [facility] Total Bilirubin 0.3 0.0 - 1.4 mg/dL LAB CHEMISTRY METHOD 07/27/2024 12:18 PM EDT [facility] Blood Venous blood specimen / Unknown Venipuncture / Unknown 07/27/2024 6:21 AM EDT 07/27/2024 11:11 AM EDT us Kenny Malave MD LAB BLOOD ORDERABLES Final Resul t [facility] [address] [place] [address], [place] [phone] * (ABNORMAL) Complete blood count (07/27/2024 6:21 AM EDT) WBC 3.9(L) 4.8 - 10.8 K/mcL LAB HEMETOLOGY METHOD 07/27/2024 11:56 AM [facility] RBC 3.80 3.80 - 4.80 M/mcL LAB HEMETOLOGY METHOD 07/27/2024 11:56 AM T [facility] Hemoglobin 10.9(L) 11.5 - 16.0 g/dL LAB HEMETOLOGY METHOD 07/27/2024 11:56 AM T [facility] Hematocrit 32.0(L) 35.0 - 47.0 % LAB HEMETOLOGY METHOD 07/27/2024 11:56 AM EDT [facility] MCV 84.7 79.0 - 98.0 FL LAB HEMETOLOGY METHOD 07/27/2024 11:56 AM [facility] MCH 28.8 27.0 - 32.0 pcg LAB HEMETOLOGY METHOD 07/27/2024 11:56 AM T [facility] MCHC 34.1 32.0 - 37.0 g/dL LAB HEMETOLOGY METHOD 07/27/2024 11:56 AM EDT [facility] RDW 15.9(H) 11.0 - 15.0 % LAB HEMETOLOGY METHOD 07/27/2024 11:56 AM EDT [facility] Platelets 423(H) 130 - 400 K/mcL LAB HEMETOLOGY METHOD 07/27/2024 11:56 AM EDT [facility] MPV 8.2 7.0 - 11.0 FL LAB HEMETOLOGY METHOD 07/27/2024 11:56 AM EDT [facility] NRBC 0.0 <1.0 % LAB HEMETOLOGY METHOD 07/27/2024 11:56 AM EDT [facility] NRBC Absolute 0.00 <0.10 K/mcL LAB HEMETOLOGY METHOD 07/27/2024 11:56 AM EDT [facility] Blood Venous blood specimen / Unknown Venipuncture / Unknown 07/27/2024 6:21 AM EDT 07/27/2024 11:11 AM EDT us Kenny Malave MD LAB BLOOD ORDERABLES Final Resul t [facility] [address] [place] [address], documented in this encounter Visit Diagnoses Diagnosis Essential (primary) hypertension Unspecified essential hypertension documented in this encounter Care Teams Rib Builder Relationship Specialty Start Date End Date Alan Chanel MD [address] [place] [address] Dr Orellana [facility] MAGEN Kruger PCP - General Internal Medicine 03/12/24 documented as of this encounter
--- OUTSIDE RECORDS SUMMARY | 2024-08-18 10:09 | XMS_ITS | Encounter Summary ---
Author Organization [facility] Address [address] [place] [address] Care Team Providers Care Diet Tech Name Role Phone Alan Chanel MD Primary Care Provider Encounter Details Date Type Department Care Team (Late st Contact Info) Description 04/21/2024 Lab Requisition [facility] [address] [place] [address] Ever Reyna MD [address] [place] [id number] Encounter for other general examination Social History [...] LAB CHEMISTRY METHOD 04/21/2024 10:03 AM EST [facility] Blood Venous blood specimen / Unknown Venipuncture / Unknown 04/21/2024 6:13 AM EST 04/21/2024 8:46 AM EST us Ever Reyna MD LAB BLOOD ORDERABLES Final Res ult Performing Organization Address [facility]/ZIP Co de Phone Number [facility] [address] [place] [address], [place] [phone] * Amylase (04/21/2024 6:13 AM EST) [facility] Amylase 51 25 - 115 unit/L LAB CHEMISTRY METHOD 04/21/2024 10:03 AM [facility] Blood Venous blood specimen / Unknown Venipuncture / Unknown 04/21/2024 6:13 AM EST 04/21/2024 8:46 AM EST us Ever Reyna MD LAB BLOOD ORDERABLES Final Res ult Performing Organization Address [facility] Co de Phone Number [facility] [address] [place] [address], [place] [phone] * (ABNORMAL) Comprehensive metabolic panel (04/21/2024 6:13 AM EST) [facility] Sodium 126(L) 133 - 145 mmol/L LAB CHEMISTRY METHOD 04/21/2024 10:06 AM [facility] Potassium 3.7 3.5 - 5.5 mmol/L LAB CHEMISTRY METHOD 04/21/2024 10:06 AM [facility] Chloride 91(L) 96 - 110 mmol/L LAB CHEMISTRY METHOD 04/21/2024 10:06 AM [facility] CO2 26 21 - 32 mmol/L LAB CHEMISTRY METHOD 04/21/2024 10:06 AM [facility] Anion Gap 9 3 - 11 LAB CHEMISTRY METHOD 04/21/2024 10:06 AM [facility] Glucose 82 70 - 100 mg/dL LAB CHEMISTRY METHOD 04/21/2024 10:06 AM [facility] BUN 10 5 - 25 mg/dL LAB CHEMISTRY METHOD 04/21/2024 10:06 AM [facility] Creatinine 0.67(L) 0.70 - 1.30 mg/dL LAB CHEMISTRY METHOD 04/21/2024 10:06 AM [facility] eGFR 98 >=60 mL/min/1. 73m2 LAB CHEMISTRY METHOD 04/21/2024 10:06 AM [facility] Comment:Calculation based on the??Chronic Kidney Disease Epidemiology Collaboration (CKD-EPI) equation refit??without adjustment for race. BUN/Creatinine Ratio 14.9 LAB CHEMISTRY METHOD 04/21/2024 10:06 AM [facility] Calcium 8.8 8.5 - 10.5 mg/dL LAB CHEMISTRY METHOD 04/21/2024 10:06 AM [facility] AST (SGOT) 208(H) 10 - 42 unit/L LAB CHEMISTRY METHOD 04/21/2024 10:06 AM [facility] ALT (SGPT) 210(H) 10 - 60 unit/L LAB CHEMISTRY METHOD 04/21/2024 10:06 AM [facility] Alkaline Phosphatase 210(H) 42 - 121 unit/L LAB CHEMISTRY METHOD 04/21/2024 10:06 AM [facility] Total Protein 6.5 6.0 - 8.0 g/dL LAB CHEMISTRY METHOD 04/21/2024 10:06 AM [facility] Albumin 3.2 3.2 - 5.0 g/dL LAB CHEMISTRY METHOD 04/21/2024 10:06 AM [facility] Total Bilirubin 0.3 0.0 - 1.4 mg/dL LAB CHEMISTRY METHOD 04/21/2024 10:06 AM [facility] Blood Venous blood specimen / Unknown Venipuncture / Unknown 04/21/2024 6:13 AM EST 04/21/2024 8:46 AM EST us Ever Reyna MD LAB BLOOD ORDERABLES Final Res ult [facility] [address] [place] [address], documented in this encounter Visit Diagnoses Diagnosis Encounter for other general examination documented in this encounter Care Teams Diet Tech Relationship Specialty Start Date End Date Alan Chanel MD [address] [place] [address] Dr [address] [place], [place] PCP - General Internal Medicine 03/12/24 documented as of this encounter
--- OUTSIDE RECORDS SUMMARY | 2024-08-18 10:09 | XMS_ITS | Encounter Summary ---
Author Organization [facility] Address [address] [place] [address] Care Team Providers Care Fish And Wildlife Scientific Aid Name Role Phone Alan Chanel MD Primary Care Provider Encounter Details Date Type Department Care Team (Late st Contact Info) Description 04/20/2024 Lab Requisition [facility] [address] [place] [address] Ever Reyna MD [address] [place] [address] Encounter for other general examination Social History [...] AM EST) WBC 3.3(L) 4.8 - 10.8 K/[facility] LAB HEMETOLOGY METHOD 04/20/2024 9:17 AM EST [facility] RBC 4.20(L) 4.50 - 5.50 M/[facility] LAB HEMETOLOGY METHOD 04/20/2024 9:17 AM EST [facility] Hemoglobin 11.7(L) 13.5 - 17.5 g/dL LAB HEMETOLOGY METHOD 04/20/2024 9:17 AM [facility] Hematocrit 35.0(L) 42.0 - 54.0 % LAB HEMETOLOGY METHOD 04/20/2024 9:17 AM [facility] MCV 83.7 79.0 - 98.0 FL LAB HEMETOLOGY METHOD 04/20/2024 9:17 AM [facility] MCH 28.0 27.0 - 32.0 pcg LAB HEMETOLOGY METHOD 04/20/2024 9:17 AM [facility] MCHC 33.4 32.0 - 37.0 g/dL LAB HEMETOLOGY METHOD 04/20/2024 9:17 AM [facility] RDW 13.3 11.0 - 15.0 % LAB HEMETOLOGY METHOD 04/20/2024 9:17 AM [facility] Platelets 437(H) 130 - 400 K/mcL LAB HEMETOLOGY METHOD 04/20/2024 9:17 AM [facility] MPV 8.3 7.0 - 11.0 FL LAB HEMETOLOGY METHOD 04/20/2024 9:17 AM [facility] NRBC 0.0 <1.0 % LAB HEMETOLOGY METHOD 04/20/2024 9:17 AM [facility] NRBC Absolute 0.00 <0.10 K/mcL LAB HEMETOLOGY METHOD 04/20/2024 9:17 AM [facility] Blood Venous blood specimen / Unknown Venipuncture / Unknown 04/20/2024 5:20 AM EST 04/20/2024 8:31 AM EST us Ever Reyna MD LAB BLOOD ORDERABLES Final Res ult [facility] [address] [place] [address], * (ABNORMAL) Comprehensive metabolic panel (04/20/2024 5:20 AM EST) Sodium 128(L) 133 - 145 mmol/L LAB CHEMISTRY METHOD 04/20/2024 10:20 AM EST [facility] Potassium 4.0 3.5 - 5.5 mmol/L LAB CHEMISTRY METHOD 04/20/2024 10:20 AM [facility] Chloride 90(L) 96 - 110 mmol/L LAB CHEMISTRY METHOD 04/20/2024 10:20 AM [facility] CO2 25 21 - 32 mmol/L LAB CHEMISTRY METHOD 04/20/2024 10:20 AM [facility] Anion Gap 13(H) 3 - 11 LAB CHEMISTRY METHOD 04/20/2024 10:20 AM [facility] Glucose 79 70 - 100 mg/dL LAB CHEMISTRY METHOD 04/20/2024 10:20 AM [facility] BUN 11 5 - 25 mg/dL LAB CHEMISTRY METHOD 04/20/2024 10:20 AM [facility] Creatinine 0.65(L) 0.70 - 1.30 mg/dL LAB CHEMISTRY METHOD 04/20/2024 10:20 AM [facility] eGFR 99 >=60 mL/min/1. 73m2 LAB CHEMISTRY METHOD 04/20/2024 10:20 AM [facility] Comment:Calculation based on the??Chronic Kidney Disease Epidemiology Collaboration (CKD-EPI) equation refit??without adjustment for race. BUN/Creatinine Ratio 16.9 LAB CHEMISTRY METHOD 04/20/2024 10:20 AM [facility] Calcium 9.1 8.5 - 10.5 mg/dL LAB CHEMISTRY METHOD 04/20/2024 10:20 AM [facility] AST (SGOT) 309(H) 10 - 42 unit/L LAB CHEMISTRY METHOD 04/20/2024 10:20 AM [facility] ALT (SGPT) 248(H) 10 - 60 unit/L LAB CHEMISTRY METHOD 04/20/2024 10:20 AM [facility] Alkaline Phosphatase 209(H) 42 - 121 unit/L LAB CHEMISTRY METHOD 04/20/2024 10:20 AM [facility] Total Protein 6.4 6.0 - 8.0 g/dL LAB CHEMISTRY METHOD 04/20/2024 10:20 AM [facility] Albumin 3.1(L) 3.2 - 5.0 g/dL LAB CHEMISTRY METHOD 04/20/2024 10:20 AM [facility] Total Bilirubin 0.3 0.0 - 1.4 mg/dL LAB CHEMISTRY METHOD 04/20/2024 10:20 AM [facility] Blood Venous blood specimen / Unknown Venipuncture / Unknown 04/20/2024 5:20 AM EST 04/20/2024 8:31 AM EST us Ever Reyna MD LAB BLOOD ORDERABLES Final Res ult [facility] [address] [place] [address], documented in this encounter Visit Diagnoses Diagnosis Encounter for other general examination documented in this encounter Care Teams Fish And Wildlife Scientific Aid Relationship Specialty Start Date End Date Alan Chanel MD [address] [place] [address] Dr Orellana [address] [place] MD PCP - General Internal Medicine 03/12/24 documented as of this encounter
--- OUTSIDE RECORDS SUMMARY | 2024-08-18 10:09 | XMS_ITS | Continuity of Care Document ---
Author Organization [facility], [facility] Address [address] [place] [address] Care Team Providers Care Umbrella Tipper Name Role Phone DANIEL PETER - 2ND FLOOR OTHER LAUREN ROSAS Primary Care Provider [phone] Assessment No assessment recorded. Plan of Treatment [...] Recorded Time Adult failure to thrive syndrome 165708117 Active 2023 Kenny Malave MD [address] [facility], [facility] [address], [address], [facility] 13:42:50 Syndrome of inappropria te vasopressin secretion 82630786 Active 2023 Kenny Malave MD [address] [place] [address], [address], [place], [address], [facility] [place] 13:42:57 Unsteady when walking 53477419 Active 2023 Kenny Malave MD [address] [place] [address], [address], [place], [address], [facility] [place] 13:43:03 Essential hypertensio n 99483292 Active 2023 Kenny Malave MD [address] [place] [address], [address], [place], [address], [facility] [place] 13:43:09 Anemia 251765761 Active 2023 Kenny Malave MD [address], [address], [place], [address], [facility] 13:43:14 Chronic obstructive pulmonary disease 67704467 Active 2023 Kenny Malave MD [address], [address], [place], [address], [place] [facility] 13:43:19 Osteoporosi s 66007336 Active 2023 Kenny Malave MD [address], [address], [place], [address], [facility] 13:43:27 Neuropathy 968940016 Active 2023 Kenny Malave MD [address] [facility], [address], [place], [address], [facility] 13:43:33 Mood disorder 29751617 Active 2023 Kenny Malave MD [address] [facility], [address], [place], [address], [facility] 13:43:41 Closed fracture of left patella 2617480073565 9105 Active 2023 Kenny Malave MD [address] [facility], [address], [place], [address], [facility] 13:44:22 Hearing loss 49134547 Active 2023 Kenny Malave MD [address] [facility], [address], [place], [address], [facility] 13:56:41 Problem Notes None recorded. Medical Equipment None Reported. Allergies No known drug allergies Medications Not known to be on any medication Vitals Date Recorded Body weight Heart rate Respiratory rate Body temperature Oxygen saturation Oxygen saturation in Arterial blood by Pulse oximetry Systolic blood pressure Diastolic blood pressure Provider Name and Address Organization Details Last Updated DateTime 5 73790.1 6 g 68 /min 18 /min 97.3 [degF] 98 % 98 % 110 mm[Hg] 62 mm[Hg] Radha Hickey NP [address] [facility], [address], [place], [address], [facility] 5 08:38:32 Social History Question Answer Notes LastModified by Organizat ion Details LastModified Time Tobacco Smoking Status Former Smoker 2 ppd smoker quit early 2023 Kenny Malave MD [address] [facility], [address], [place], [address], [facility] 04/28/2024 13:58:17 Do You Have An Advance Directive? No Information not available 04/28/2024 What Is Your Level Of Alcohol Consumption? None Information not available 04/28/2024 What Is Your Code Status? DNI [email or web address] Information not available 04/30/2024 How Much Tobacco [...] Recorded Time Tdap 6 completed Joann Kulwant [facility] 05/05/2024 16:34:17 pneumococcal polysaccharide PPV23 6 completed Joann Blum [facility] 05/05/2024 16:34:32 influenza, unspecified formulation 4 completed Joann Blum [facility] 05/05/2024 16:34:49 influenza, unspecified formulation 3 completed Joann Blum [facility] 05/05/2024 16:34:56 influenza, unspecified formulation 2 completed Joann Blum [facility] 05/05/2024 16:35:02 Past Encounters Encounter ID Performer Location Encounter Start Date Encounter Closed Date Diagnosis/Indication Diagnosis SNOMED-CT Code Diagnosis ICD10 Code Diagnosis Note [id number] HERNESTO ROSALES CNP [address] [address] 07/15/2024 12:24:15 07/16/2024 14:25:31 Hyponatremia 21158106 E87.1 S/t SIDAH, Lab result trending down, today Na was 131.Start fluid restrictio n 1800 ml /day.Will check lab, CBC, CMP weekly X4.Pt is asymptomat ic, continue monitor. Closed fra cture of left patella [id number] 2026832 S82.015G prior fall with left knee fxFollowed up with ortho, cleared to [facility] from 07/09/24.con tACL brace one more week.PT OT eval and tx. prn, currently on therapyWil l schedule for ortho follow up in [address] Lucero for rehab and pain management monitor pain control Unsteady when walking 22 874088 R26.89 Cleared by ortho for WBAT.Concepcion nue PT OT eval and treatment. monitor Adult fail ure to thrive syndrome 097597319 R62.7 doing well here overall, wt stablenot able to be cared for in community with tibia fxmonitor need for increased services in prep. for [facility]c [facility] nitor weights, intake Mood disorder 63484147 F 34.89 with underlying anxiety, stable on ativan hereContin ue:ativan 0.5 mg bidzoloft 50 mg qdSeen by Psych provider 05/11, no new recommenda tionsMonit or mood, behaviors. [id number] HERNESTO ROSALES, TIANNA [address] [address] 07/22/2024 10:40:07 07/24/2024 14:48:08 Hyponatremia 31859230 E87.1 S/t SIDAH, Lab result trending down, today Na was 129Reduce fluid restrictio n to 1500 ml /day. ? compliance .Will continue check lab, CBC, CMP weekly X3.Discuss ed with nursing staffs for hyponatrem ia and fluid restrictio n.Pt currently asymptomat ic. Will monitor closely.Jessie bergman consider to adjust her sertraline dosage. Closed fra cture of left patella [id number] 3978804 S82.015G prior fall with left knee fxFollowed up with ortho, cleared to [facility] from 07/09/24.con tACL brace loosened, and continues to use it when she ambulates. PT OT eval and tx. prn, currently on therapyWil l have ortho follow up in [address] Lucero for rehab and pain management monitor pain control Unsteady when walking 22 606303 R26.89 Cleared by ortho for WBAT.Concepcion nue PT OT eval and treatment. monitor Adult fail ure to thrive syndrome 215801596 R62.7 doing well here overall, wt stablenot able to be cared for in community with tibia fxmonitor need for increased services in prep. for dischargec [facility] nitor weights, intake Mood disorder 51183049 F 34.89 with underlying anxiety, stable on ativan hereContin ue:ativan 0.5 mg bidzoloft 50 mg qdSeen by Psych provider 05/11, no new recommenda tionsMonit or mood, behaviors. [id number] Radha Hickey, SHEBA [facility] [address] 07/27/2024 12:24:14 07/29/2024 15:15:58 Hyponatremia 19168902 E87.1 S/t SIDAH, Lab result trending down, today Na was 129 for 2nd weekReduce fluid restrictio n to 1500 ml /day. ? compliance .nsg to follow for complaince CBC, CMP weekly X3.Discuss ed with nursing staffs for hyponatrem ia and fluid restrictio n.Pt currently asymptomat ic. Will monitor closely.Jessie bergman consider to adjust her sertraline dosage if needed Closed fra cture of left patella 8850115571 0184938 S82.015G prior fall with left knee fxFollowed up with ortho, cleared to [facility] from 07/09/24.con tACL brace loosened, and continues to use it when she ambulates. PT OT eval and tx. prn, currently on therapyWil l have ortho follow up in 4 weekscontt ramadol 50 mg po qd prn mod pain, uses approx once per dayFollowe d by Dr. Lucero for rehab and pain management monitor pain control Unsteady when walking 22 991185 R26.89 Cleared by ortho for WBAT.Concepcion nue PT OT eval and treatment. monitor Adult fail ure to thrive syndrome 721793814 R62.7 doing well here overall, wt stablenot able to be cared for in community with tibia fxmonitor need for increased services in prep. [facility], intake Mood disorder 24135926 F 34.89 with underlying anxiety, stable on ativan hereContin ue:ativan 0.5 mg bidzoloft 50 mg qdpsych prnMonitor mood, behaviors. Insomnia 721847076 G47.0 0 pt with insomnia reports very little to no sleep overnight start melatonin 5 mg po qhsmonitor for sleep [id number] Radha [facility]key, [facility] [address] 08/05/2024 17:02:47 08/07/2024 14:51:13 Closed fracture of left patella 8092636116 8959053 S82.015G prior fall with left knee fx and slow healing processort ho cleared to [facility] from 07/09/24.con tACL brace loosened, and continues to use it when she ambulates. PT OT eval and tx. prn, currently on therapyWil l have ortho follow up in 4 weekscontt ramadol 50 mg po qd prn mod pain, uses approx once per dayFollowe d by Dr. Lucero for rehab and pain management monitor pain control Insomnia 332848145 G47.0 0 sleep improvingc ontmelaton in 5 mg po qhsmonitor for sleep Hyponatremia 38347563 E8 7.1 S/t SIDAH, sodium boderline 131, actually trending upReduce fluid restrictio n to 1500 ml /day. ? compliance .nsg to follow for complaince CBC, CMP weekly X3.Discuss ed with nursing staffs for hyponatrem ia and fluid restrictio n.Pt currently asymptomat ic.monitor closely.Jessie bergman consider to adjust her sertraline dosage if needed Unsteady when walking 22 099426 R26.89 Cleared by ortho for WBAT.Concepcion nuePT OT eval and treatment. monitor Adult fail ure to thrive syndrome 051339385 R62.7 doing well here overall, wt stablenot able to be cared for in community with tibia fxmonitor need for increased services in prep. for [facility], intake Mood disorder 43672434 F 34.89 with underlying anxiety, stable on ativan hereContin ue:ativan 0.5 mg bidzoloft 50 mg qdpsych prnMonitor mood, behaviors. [id number] MAYDA WHIPPLE NP [facility] [address] [address] 08/06/2024 13:31:04 08/10/2024 08:13:35 Closed fracture of left patella 0893084849 2091866 S82.015G prior fall with left knee fxFollowed up with ortho, cleared to [facility] from 07/09/24.Con tinue brace with ambulation .PT OT eval and tx. prn, currently on program with PTOrtho follow up in place - should be soon.concepcion nue tramadol 50 mg po qd prn mod pain, not using lately.Fol lowed by Dr. Lucero for rehab and pain management monitor Insomnia 350770435 G47.0 0 Newer complaintS tarted melatonin 5 mg po qhs 07/27No complaints now Hyponatremia 50811107 E8 7.1 SIDAHTrend ing Na levels, currently 131.Contin ue FR 1.5 L/d, ? compliance .Also on SSRI, monitor need to adjust Unsteady when walking 22 341595 R26.89 Cleared by ortho for WBAT.Concepcion nue PT OT eval and tx. prnmonitor Adult fail ure to thrive syndrome 539050800 R62.7 doing well here overall, wt stablenot able to be cared for in community with tibia fxmonitor need for increased services in prep. for dischargec [facility]inue [facility] at [facility] n[facility] weights, intake Mood disorder 27629364 F 34.89 with underlying anxiety, stable on ativan hereContin ue:ativan 0.5 mg bidzoloft 50 mg qdpsych prnMonitor mood, behaviors. [id number] Radha Hickey NP [facility] [address] [place] [address] 08/13/2024 08:38:03 08/17/2024 12:56:37 Closed fracture of left patella 5190306756 3257409 S82.015G prior fall with left knee fxFollowed up with orthocontc leared to [facility] from 07/09/24 apptbrace and walker with ambulation , remains unsteadytr amadol 50 mg po qd prn mod pain, not using lately.PT OT eval and tx. prn, currently on program with PTOrtho follow up in place - should be soon.Rennyo wed by Dr. Lucero for rehab and pain management monitor Insomnia 227087606 G47.0 0 Newer complaintS tarted melatonin 5 mg po qhs 07/27 with good effectNo complaints now Hyponatremia 07898320 E8 7.1 SIDAHTrend ing Na levels, currently 131.4/10 decrease sertraline from 50 mg to 25 mgContinue FR 1.5 L/d, ? compliance .Also on SSRI, monitor need to adjust Unsteady when walking 22 951536 R26.89 Cleared by ortho for WBAT.Concepcion nue PT OT eval and tx.monitor Adult fail ure to thrive syndrome 665971391 R62.7 wt stable, seems to do wellnot able to be cared for in community with tibia fxmonitor need for increased services in prep. for dischargec ontinue supportive care at [facility] nitor weights, intake Mood disorder 21021677 F 34.89 with underlying anxiety, stable on ativan hereContin ue:ativan 0.5 mg bid/9 decrease sertraline from 50 mg to 25 mgpsych prnMonitor mood, behaviors. Health Concerns Section Related Observation LastModified by Organization Detai ls LastModified Time None Recorded Concern Status LastModified by Organization Details LastModified Time None Recorded Payers Encounter Date Sequence Insurance Name Policy Number Policy Rock Covered Member ID Rock Member ID Guarantor Name 08/13/2024 1 [place] [employer] Trevon Yeagerx [id number] Trevon Aguilar 08/13/2024 2 [place] [facility] Trevon Lauren [id number] Trevon Aguilar Notes Date Note Type Note Provider Name and Address Organization Details Recorded Time 08/13/2024 text/html Trevon is seen t richie for an acute visit this am. PMH significant for SIADH,htn,anemia,copd ,osteoporosis,neuropa thy,mood disorder NOS She was seen by psychology physician and rec decreasing sertraline from 50 to 25 mg po qd. Will agree as her mood is stable and she has boderline na levels. Pt is agreeable. Trevon is a 73 yo female here for continued care and rehab after a hospitalization due to FTT, left knee fx., hyponatremia due to SIADH, and hypokalemia. She continues to work with rehab and is progressing with her brace and walker currently able to weight bear. Labs reviewed sodium remains at 131. On exam, pt is alert and walking in the [place] with walker and brace on. Radha Hickey, SHEBA [address] [facility], [address], [place], [address], [facility] 08/13/2024 09:27:25 OBGyn Episode No OBEpisode recorded.
--- OUTSIDE RECORDS SUMMARY | 2024-08-18 10:09 | XMS_ITS | Encounter Summary ---
Author Organization [facility] Address [address] [place] [address] Care Team Providers Care Hopper Attendant Name Role Phone Alan Chanel MD Primary Care Provider Encounter Details Date Type Department Care Team (Late st Contact Info) Description 06/08/2024 Lab Requisition [facility] [address] [place] [address] Kenny Malave MD 38 [facility] [address] [place], [address] Chronic obstructive pulmonary disease, unspecified (CMS/HCC V24, CMS/HCC V28) Social History Tobacco Use Types Packs/Day Years [...] LAB CHEMISTRY METHOD 06/08/2024 11:51 AM EST [facility] Potassium 5.0 3.5 - 5.5 mmol/L LAB CHEMISTRY METHOD 06/08/2024 11:51 AM [facility] Comment:Results verified by repeat testing Chloride 102 96 - 110 mmol/L LAB CHEMISTRY METHOD 06/08/2024 11:51 AM [facility] CO2 26 21 - 32 mmol/L LAB CHEMISTRY METHOD 06/08/2024 11:51 AM [facility] Anion Gap 8 3 - 11 LAB CHEMISTRY METHOD 06/08/2024 11:51 AM [facility] Glucose 78 70 - 100 mg/dL LAB CHEMISTRY METHOD 06/08/2024 11:51 AM [facility] BUN 17 5 - 25 mg/dL LAB CHEMISTRY METHOD 06/08/2024 11:51 AM [facility] Creatinine 0.53 0.50 - 1.10 mg/dL LAB CHEMISTRY METHOD 06/08/2024 11:51 AM [facility] eGFR 97 >=60 mL/min/1. 73m2 LAB CHEMISTRY METHOD 06/08/2024 11:51 AM [facility] Comment:Calculation based on the??Chronic Kidney Disease Epidemiology Collaboration (CKD-EPI) equation refit??without adjustment for race. BUN/Creatinine Ratio 32.1 LAB CHEMISTRY METHOD 06/08/2024 11:51 AM [facility] Calcium 9.6 8.5 - 10.5 mg/dL LAB CHEMISTRY METHOD 06/08/2024 11:51 AM [facility] Blood Venous blood specimen / Unknown Venipuncture / Unknown 06/08/2024 7:16 AM EST 06/08/2024 9:26 AM EST us Kenny Malave MD LAB BLOOD ORDERABLES Final Resul t [facility] [address] [place] [address], * (ABNORMAL) Complete blood count (06/08/2024 7:16 AM EST) [facility] WBC 5.0 4.8 - 10.8 K/mcL LAB HEMETOLOGY METHOD 06/08/2024 10:15 AM [facility] RBC 3.80 3.80 - 4.80 M/mcL LAB HEMETOLOGY METHOD 06/08/2024 10:15 AM [facility] Hemoglobin 10.6(L) 11.5 - 16.0 g/dL LAB HEMETOLOGY METHOD 06/08/2024 10:15 AM [facility] Hematocrit 33.0(L) 35.0 - 47.0 % LAB HEMETOLOGY METHOD 06/08/2024 10:15 AM [facility] MCV 86.4 79.0 - 98.0 FL LAB HEMETOLOGY METHOD 06/08/2024 10:15 AM [facility] MCH 27.7 27.0 - 32.0 pcg LAB HEMETOLOGY METHOD 06/08/2024 10:15 AM [facility] MCHC 32.1 32.0 - 37.0 g/dL LAB HEMETOLOGY METHOD 06/08/2024 10:15 AM [facility] RDW 17.9(H) 11.0 - 15.0 % LAB HEMETOLOGY METHOD 06/08/2024 10:15 AM [facility] Platelets 516(H) 130 - 400 K/mcL LAB HEMETOLOGY METHOD 06/08/2024 10:15 AM [facility] MPV 8.5 7.0 - 11.0 FL LAB HEMETOLOGY METHOD 06/08/2024 10:15 AM [facility] NRBC 0.0 <1.0 % LAB HEMETOLOGY METHOD 06/08/2024 10:15 AM [facility] NRBC Absolute 0.00 <0.10 K/mcL LAB HEMETOLOGY METHOD 06/08/2024 10:15 AM EST [facility] Blood Venous blood specimen / Unknown Venipuncture / Unknown 06/08/2024 7:16 AM EST 06/08/2024 9:26 AM EST us Kenny Malave MD LAB BLOOD ORDERABLES Final Resul t [facility] [address] [place] [address], documented in this encounter Visit Diagnoses Diagnosis Chronic obstructive pulmonary disease, unspecified (CMS/HCC V24, CMS/HCC V28) documented in this encounter Care Teams Hopper Attendant Relationship Specialty Start Date End Date Alan Chanel MD [address] [place] [address] Dr [address] [place], [place] PCP - General Internal Medicine 03/12/24 documented as of this encounter
--- OUTSIDE RECORDS SUMMARY | 2024-08-18 10:09 | XMS_ITS | Encounter Summary ---
Author Organization [facility] Address [address] [place] [address] Care Team Providers Care Pavilion Cutter Name Role Phone Alan Chanel MD Primary Care Provider Encounter Details Date Type Department Care Team (Late st Contact Info) Description 04/12/2024 Lab Requisition [facility] - Main Lab [address] [facility] [place] [address] Ever Reyna MD [address] [place] [phone] Encounter for other general examination Social History [...] AM EST) WBC 6.1 4.8 - 10.8 K/[facility] LAB HEMETOLOGY METHOD 04/12/2024 10:32 AM [facility] LAB RBC 4.20(L) 4.50 - 5.50 M/mcL LAB HEMETOLOGY METHOD 04/12/2024 10:32 AM [facility] LAB Hemoglobin 11.8(L) 13.5 - 17.5 g/dL LAB HEMETOLOGY METHOD 04/12/2024 10:32 AM [facility] LAB Hematocrit 36.0(L) 42.0 - 54.0 % LAB HEMETOLOGY METHOD 04/12/2024 10:32 AM [facility] LAB MCV 85.9 79.0 - 98.0 FL LAB HEMETOLOGY METHOD 04/12/2024 10:32 AM [facility] LAB MCH 28.2 27.0 - 32.0 pcg LAB HEMETOLOGY METHOD 04/12/2024 10:32 AM [facility] LAB MCHC 32.8 32.0 - 37.0 g/dL LAB HEMETOLOGY METHOD 04/12/2024 10:32 AM [facility] LAB RDW 13.2 11.0 - 15.0 % LAB HEMETOLOGY METHOD 04/12/2024 10:32 AM [facility] LAB Platelets 424(H) 130 - 400 K/mcL LAB HEMETOLOGY METHOD 04/12/2024 10:32 AM [facility] LAB MPV 8.6 7.0 - 11.0 FL LAB HEMETOLOGY METHOD 04/12/2024 10:32 AM [facility] LAB NRBC 0.0 <1.0 % LAB HEMETOLOGY METHOD 04/12/2024 10:32 AM [facility] LAB NRBC Absolute 0.00 <0.10 K/mcL LAB HEMETOLOGY METHOD 04/12/2024 10:32 AM [facility] LAB Neutrophils Relative 70.8 % LAB HEMETOLOGY METHOD 04/12/2024 10:32 AM [facility] LAB Lymphocytes Relative 14.7 % LAB HEMETOLOGY METHOD 04/12/2024 10:32 AM [facility] LAB Monocytes Relative 13.7 % LAB HEMETOLOGY METHOD 04/12/2024 10:32 AM [facility] LAB Eosinophils Relative 0.0 % LAB HEMETOLOGY METHOD 04/12/2024 10:32 AM [facility] LAB Basophils Relative 0.3 % LAB HEMETOLOGY METHOD 04/12/2024 10:32 AM [facility] LAB Immature Granulocytes Relative 0.5 % LAB HEMETOLOGY METHOD 04/12/2024 10:32 AM [facility] LAB Neutrophils Absolute 4.32 1.50 - 7.00 K/mcL LAB HEMETOLOGY METHOD 04/12/2024 10:32 AM [facility] LAB Lymphocytes Absolute 0.90(L) 1.00 - 5.00 K/mcL LAB HEMETOLOGY METHOD 04/12/2024 10:32 AM [facility] LAB Monocytes Absolute 0.84 0.20 - 1.00 K/mcL LAB HEMETOLOGY METHOD 04/12/2024 10:32 AM [facility] LAB Eosinophils Absolute 0.00 0.00 - 0.50 K/mcL LAB HEMETOLOGY METHOD 04/12/2024 10:32 AM [facility] LAB Basophils Absolute 0.02 0.00 - 0.20 K/mcL LAB HEMETOLOGY METHOD 04/12/2024 10:32 AM [facility] LAB Immature Granulocytes Absolute 0.03 0.00 - 0.03 K/mcL LAB HEMETOLOGY METHOD 04/12/2024 10:32 AM [facility] Blood Venous blood specimen / Unknown Venipuncture / Unknown 04/12/2024 7:35 AM EST 04/12/2024 10:02 AM EST Ever Reyna MD LAB BLOOD ORDERABLES Final Res ult [facility] LAB [address] [place] [address], [place] [phone] * (ABNORMAL) Magnesium (04/12/2024 7:35 AM EST) Magnesium 1.7(L) 1.9 - 2.6 mg/dL LAB CHEMISTRY METHOD 04/12/2024 10:55 AM EST [facility] LAB Blood Venous blood specimen / Unknown Venipuncture / Unknown 04/12/2024 7:35 AM EST 04/12/2024 10:02 AM EST Ever Reyna MD LAB BLOOD ORDERABLES Final Res ult Performing Organization Address [facility]/ZIP Co de Phone Number [facility] [address] [place] [address], [place] [phone] * (ABNORMAL) Comprehensive metabolic panel (04/12/2024 7:35 AM EST) Sodium 130(L) 133 - 145 mmol/L LAB CHEMISTRY METHOD 04/12/2024 10:56 AM [facility] Potassium 4.5 3.5 - 5.5 mmol/L LAB CHEMISTRY METHOD 04/12/2024 10:56 AM [facility] Chloride 97 96 - 110 mmol/L LAB CHEMISTRY METHOD 04/12/2024 10:56 AM [facility] LAB CO2 25 21 - 32 mmol/L LAB CHEMISTRY METHOD 04/12/2024 10:56 AM [facility] Anion Gap 8 3 - 11 LAB CHEMISTRY METHOD 04/12/2024 10:56 AM [facility] Glucose 77 70 - 100 mg/dL LAB CHEMISTRY METHOD 04/12/2024 10:56 AM [facility] BUN 16 5 - 25 mg/dL LAB CHEMISTRY METHOD 04/12/2024 10:56 AM [facility] Creatinine 0.68(L) 0.70 - 1.30 mg/dL LAB CHEMISTRY METHOD 04/12/2024 10:56 AM [facility] LAB eGFR 98 >=60 mL/min/1. 73m2 LAB CHEMISTRY METHOD 04/12/2024 10:56 AM [facility] LAB Comment:Calculation based on the??Chronic Kidney Disease Epidemiology Collaboration (CKD-EPI) equation refit??without adjustment for race. BUN/Creatinine Ratio 23.5 LAB CHEMISTRY METHOD 04/12/2024 10:56 AM [facility] Calcium 9.9 8.5 - 10.5 mg/dL LAB CHEMISTRY METHOD 04/12/2024 10:56 AM [facility] LAB AST (SGOT) 38 10 - 42 unit/L LAB CHEMISTRY METHOD 04/12/2024 10:56 AM [facility] ALT (SGPT) 24 10 - 60 unit/L LAB CHEMISTRY METHOD 04/12/2024 10:56 AM [facility] Alkaline Phosphatase 117 42 - 121 unit/L LAB CHEMISTRY METHOD 04/12/2024 10:56 AM [facility] Total Protein 6.7 6.0 - 8.0 g/dL LAB CHEMISTRY METHOD 04/12/2024 10:56 AM [facility] Albumin 3.2 3.2 - 5.0 g/dL LAB CHEMISTRY METHOD 04/12/2024 10:56 AM [facility] Total Bilirubin 0.3 0.0 - 1.4 mg/dL LAB CHEMISTRY METHOD 04/12/2024 10:56 AM [facility] Blood Venous blood specimen / Unknown Venipuncture / Unknown 04/12/2024 7:35 AM EST 04/12/2024 10:02 AM EST us Ever Reyna MD LAB BLOOD ORDERABLES Final Res ult [facility] [address] [place] [address], documented in this encounter Visit Diagnoses Diagnosis Encounter for other general examination documented in this encounter Care Teams Pavilion Cutter Relationship Specialty Start Date End Date Alan Chanel MD [address] [place] [address] Dr [address] [place] PCP - General Internal Medicine 03/12/24 documented as of this encounter
--- OUTSIDE RECORDS SUMMARY | 2024-08-18 10:09 | XMS_ITS | Encounter Summary ---
Author Organization [facility] Address [address] [place] [address] Care Team Providers Care Assistant Professor Surgical Technology Name Role Phone Alan Chanel MD Primary Care Provider Encounter Details Date Type Department Care Team (Late st Contact Info) Description 08/01/2024 Lab Requisition [facility] Lab [address] [place] [address] Kenny Malave MD [address] [facility] [address] [place], [address] Essential (primary) hypertension Social History Tobacco [...] Associated Diagnosis Comments COMPLETE BLOOD COUNT Routine 08/03/2024 5:38 AM EDT Essential (primary) hypertension COMPREHENSIVE METABOLIC PANEL Routine 08/03/2024 5:38 AM EDT Essential (primary) hypertension documented in this encounter Results * (ABNORMAL) Comprehensive metabolic panel (08/03/2024 5:38 AM EDT) Sodium 131(L) 133 - 145 mmol/L LAB CHEMISTRY METHOD 08/03/2024 12:[address] [facility] Potassium 4.5 3.5 - 5.5 mmol/L LAB CHEMISTRY METHOD 08/03/2024 12:[address] [facility] Chloride 96 96 - 110 mmol/L LAB CHEMISTRY METHOD 08/03/2024 12:13 PM [facility] LAB CO2 26 21 - 32 mmol/L LAB CHEMISTRY METHOD 08/03/2024 12:13 PM [facility] LAB Anion Gap 9 3 - 11 LAB CHEMISTRY METHOD 08/03/2024 12:13 PM [facility] LAB Glucose 70 70 - 100 mg/dL LAB CHEMISTRY METHOD 08/03/2024 12:13 PM [facility] BUN 20 5 - 25 mg/dL LAB CHEMISTRY METHOD 08/03/2024 12:13 PM [facility] LAB Creatinine 0.55 0.50 - 1.10 mg/dL LAB CHEMISTRY METHOD 08/03/2024 12:13 PM [facility] LAB eGFR 96 >=60 mL/min/1. 73m2 LAB CHEMISTRY METHOD 08/03/2024 12:13 PM [facility] LAB Comment:Calculation based on the??Chronic Kidney Disease Epidemiology Collaboration (CKD-EPI) equation refit??without adjustment for race. BUN/Creatinine Ratio 36.4 LAB CHEMISTRY METHOD 08/03/2024 12:13 PM [facility] Calcium 9.7 8.5 - 10.5 mg/dL LAB CHEMISTRY METHOD 08/03/2024 12:13 PM [facility] AST (SGOT) 26 10 - 42 unit/L LAB CHEMISTRY METHOD 08/03/2024 12:13 PM [facility] ALT (SGPT) 21 10 - 60 unit/L LAB CHEMISTRY METHOD 08/03/2024 12:13 PM [facility] Alkaline Phosphatase 84 42 - 121 unit/L LAB CHEMISTRY METHOD 08/03/2024 12:13 PM [facility] Total Protein 7.0 6.0 - 8.0 g/dL LAB CHEMISTRY METHOD 08/03/2024 12:13 PM [facility] Albumin 3.4 3.2 - 5.0 g/dL LAB CHEMISTRY METHOD 08/03/2024 12:[address] [facility] Total Bilirubin 0.3 0.0 - 1.4 mg/dL LAB CHEMISTRY METHOD 08/03/2024 12:[address] [facility] Blood Venous blood specimen / Unknown Venipuncture / Unknown 08/03/2024 5:38 AM EDT 08/03/2024 10:24 AM EDT us Kenny Malave MD LAB BLOOD ORDERABLES Final Resul t [facility] [address] [place] [address], [place] [phone] * (ABNORMAL) Complete blood count (08/03/2024 5:38 AM EDT) WBC 4.2(L) 4.8 - 10.8 K/mcL LAB HEMETOLOGY METHOD 08/03/2024 11:[address] [facility] RBC 3.70(L) 3.80 - 4.80 M/mcL LAB HEMETOLOGY METHOD 08/03/2024 11:18 AM [facility] Hemoglobin 10.5(L) 11.5 - 16.0 g/dL LAB HEMETOLOGY METHOD 08/03/2024 11:18 AM [facility] Hematocrit 31.9(L) 35.0 - 47.0 % LAB HEMETOLOGY METHOD 08/03/2024 11:[address] [facility] MCV 86.4 79.0 - 98.0 FL LAB HEMETOLOGY METHOD 08/03[facility]24 11[facility] MCH 28.5 27.0 - 32.0 pcg LAB HEMETOLOGY METHOD 08/03/2024 11:18 AM [facility] LAB MCHC 32.9 32.0 - 37.0 g/dL LAB HEMETOLOGY METHOD 08/03/2024 11:[address] [facility] RDW 15.3(H) 11.0 - 15.0 % LAB HEMETOLOGY METHOD 08/03/2024 11:[address] [facility] Platelets 409(H) 130 - 400 K/mcL LAB HEMETOLOGY METHOD 08/03/2024 11:[address] [facility] MPV 8.3 7.0 - 11.0 FL LAB HEMETOLOGY METHOD 08/03/2024 11:[address] [facility] NRBC 0.0 <1.0 % LAB HEMETOLOGY METHOD 08/03/2024 11:[address] [facility] NRBC Absolute 0.00 <0.10 K/mcL LAB HEMETOLOGY METHOD 08/03/2024 11:[address] [facility] Blood Venous blood specimen / Unknown Venipuncture / Unknown 08/03/2024 5:38 AM EDT 08/03/2024 10:24 AM EDT us Kenny Malave MD LAB BLOOD ORDERABLES Final Resul t [facility] [address] [place] [address], documented in this encounter Visit Diagnoses Diagnosis Essential (primary) hypertension Unspecified essential hypertension documented in this encounter Care Teams Assistant Professor Surgical Technology Relationship Specialty Start Date End Date Alan Chanel MD [address] [place] [address] Dr Reyna Kruger [place] PCP - General Internal Medicine 03/12/24 documented as of this encounter
--- OUTSIDE RECORDS SUMMARY | 2024-08-18 10:10 | XMS_ITS | Encounter Summary ---
Author Organization [facility] Address [address] [place] [address] Care Team Providers Care Informal Waiter/Waitress Name Role Phone Alan Chanel MD Primary Care Provider Encounter Details Date Type Department Care Team (Late st Contact Info) Description 08/09/2024 Lab Requisition [facility] Lab [address] [place] [address] Kenny Malave MD 38 [facility] [address] [place], [address] Essential (primary) hypertension Social History Tobacco [...] Associated Diagnosis Comments COMPLETE BLOOD COUNT Routine 08/10/2024 6:24 AM EDT Essential (primary) hypertension COMPREHENSIVE METABOLIC PANEL Routine 08/10/2024 6:24 AM EDT Essential (primary) hypertension documented in this encounter Results * (ABNORMAL) Comprehensive metabolic panel (08/10/2024 6:24 AM EDT) Sodium 131(L) 133 - 145 mmol/L LAB CHEMISTRY METHOD 08/10/2024 12:52 PM EDT [facility] Potassium 4.5 3.5 - 5.5 mmol/L LAB CHEMISTRY METHOD 08/10/2024 12:52 PM EDT [facility] Chloride 99 96 - 110 mmol/L LAB CHEMISTRY METHOD 08/10/2024 12:52 PM [facility] CO2 27 21 - 32 mmol/L LAB CHEMISTRY METHOD 08/10/2024 12:52 PM [facility] LAB Anion Gap 5 3 - 11 LAB CHEMISTRY METHOD 08/10/2024 12:52 PM [facility] LAB Glucose 64(L) 70 - 100 mg/dL LAB CHEMISTRY METHOD 08/10/2024 12:52 PM [facility] BUN 22 5 - 25 mg/dL LAB CHEMISTRY METHOD 08/10/2024 12:52 PM [facility] Creatinine 0.62 0.50 - 1.10 mg/dL LAB CHEMISTRY METHOD 08/10/2024 12:52 PM [facility] LAB eGFR 94 >=60 mL/min/1. 73m2 LAB CHEMISTRY METHOD 08/10/2024 12:52 PM [facility] LAB Comment:Calculation based on the??Chronic Kidney Disease Epidemiology Collaboration (CKD-EPI) equation refit??without adjustment for race. BUN/Creatinine Ratio 35.5 LAB CHEMISTRY METHOD 08/10/2024 12:52 PM [facility] Calcium 9.6 8.5 - 10.5 mg/dL LAB CHEMISTRY METHOD 08/10/2024 12:52 PM [facility] AST (SGOT) 25 10 - 42 unit/L LAB CHEMISTRY METHOD 08/10/2024 12:52 PM [facility] ALT (SGPT) 19 10 - 60 unit/L LAB CHEMISTRY METHOD 08/10/2024 12:52 PM [facility] LAB Alkaline Phosphatase 81 42 - 121 unit/L LAB CHEMISTRY METHOD 08/10/2024 12:52 PM [facility] Total Protein 7.2 6.0 - 8.0 g/dL LAB CHEMISTRY METHOD 08/10/2024 12:52 PM [facility] Albumin 3.6 3.2 - 5.0 g/dL LAB CHEMISTRY METHOD 08/10/2024 12:52 PM EDT [facility] Total Bilirubin 0.3 0.0 - 1.4 mg/dL LAB CHEMISTRY METHOD 08/10/2024 12:52 PM EDT [facility] Blood Venous blood specimen / Unknown Venipuncture / Unknown 08/10/2024 6:24 AM EDT 08/10/2024 11:12 AM EDT us Kenny Malave MD LAB BLOOD ORDERABLES Final Resul t [facility] [address] [place] [address], [place] [phone] * (ABNORMAL) Complete blood count (08/10/2024 6:24 AM EDT) WBC 3.9(L) 4.8 - 10.8 K/mcL LAB HEMETOLOGY METHOD 08/10/2024 12:28 PM EDT [facility] RBC 3.80 3.80 - 4.80 M/mcL LAB HEMETOLOGY METHOD 08/10/2024 12:28 PM EDT [facility] Hemoglobin 11.0(L) 11.5 - 16.0 g/dL LAB HEMETOLOGY METHOD 08/10/2024 12:28 PM EDT [facility] Hematocrit 32.7(L) 35.0 - 47.0 % LAB HEMETOLOGY METHOD 08/10/2024 12:28 PM EDT [facility] MCV 85.2 79.0 - 98.0 FL LAB HEMETOLOGY METHOD [facility] MCH 28.6 27.0 - 32.0 pcg LAB HEMETOLOGY METHOD 08/10/2024 12:28 PM EDT [facility] MCHC 33.6 32.0 - 37.0 g/dL LAB HEMETOLOGY METHOD 08/10/2024 12:28 PM EDT [facility] RDW 14.6 11.0 - 15.0 % LAB HEMETOLOGY METHOD 08/10/2024 12:28 PM EDT [facility] Platelets 434(H) 130 - 400 K/mcL LAB HEMETOLOGY METHOD 08/10/2024 12:28 PM EDT [facility] MPV 8.2 7.0 - 11.0 FL LAB HEMETOLOGY METHOD 08/10/2024 12:28 PM EDT [facility] NRBC 0.0 <1.0 % LAB HEMETOLOGY METHOD 08/10/2024 12:28 PM EDT [facility] NRBC Absolute 0.00 <0.10 K/mcL LAB HEMETOLOGY METHOD 08/10/2024 12:28 PM EDT [facility] Blood Venous blood specimen / Unknown Venipuncture / Unknown 08/10/2024 6:24 AM EDT 08/10/2024 11:12 AM EDT us Kenny Malave MD LAB BLOOD ORDERABLES Final Resul t [facility] [address] [place] [address], documented in this encounter Visit Diagnoses Diagnosis Essential (primary) hypertension Unspecified essential hypertension documented in this encounter Care Teams Informal Waiter/Waitress Relationship Specialty Start Date End Date Alan Chanel MD [address] [place] [address] Dr Orellana [facility] MAGEN Kruger PCP - General Internal Medicine 03/12/24 documented as of this encounter
--- OUTSIDE RECORDS SUMMARY | 2024-08-18 10:10 | XMS_ITS | Encounter Summary ---
Author Organization [facility] Address [address] [place] [address] Care Team Providers Care Paraoptometric Name Role Phone Alan Chanel MD Primary Care Provider [phone] Encounter Details Date Type Department Care Team (Late st Contact Info) Description 08/15/2024 Lab Requisition [facility] Lab [address] [place] [address] Kenny Malave MD 38 [facility] [address] [place], [address] Essential (primary) hypertension Social History Tobacco [...] Associated Diagnosis Comments COMPLETE BLOOD COUNT Routine 08/17/2024 5:38 AM EDT Essential (primary) hypertension COMPREHENSIVE METABOLIC PANEL Routine 08/17/2024 5:38 AM EDT Essential (primary) hypertension documented in this encounter Results * (ABNORMAL) Comprehensive metabolic panel (08/17/2024 5:38 AM EDT) Sodium 128(L) 133 - 145 mmol/L LAB CHEMISTRY METHOD 08/17/2024 12:06 PM EDT [facility] Potassium 4.8 3.5 - 5.5 mmol/L LAB CHEMISTRY METHOD 08/17/2024 12:06 PM EDT [facility] Chloride 95(L) 96 - 110 mmol/L LAB CHEMISTRY METHOD 08/17/2024 12:06 PM [facility] CO2 28 21 - 32 mmol/L LAB CHEMISTRY METHOD 08/17/2024 12:06 PM [facility] Anion Gap 5 3 - 11 LAB CHEMISTRY METHOD 08/17/2024 12:06 PM [facility] Glucose 76 70 - 100 mg/dL LAB CHEMISTRY METHOD 08/17/2024 12:06 PM [facility] BUN 21 5 - 25 mg/dL LAB CHEMISTRY METHOD 08/17/2024 12:06 PM [facility] Creatinine 0.67 0.50 - 1.10 mg/dL LAB CHEMISTRY METHOD 08/17/2024 12:06 PM [facility] LAB eGFR 91 >=60 mL/min/1. 73m2 LAB CHEMISTRY METHOD 08/17/2024 12:06 PM [facility] Comment:Calculation based on the??Chronic Kidney Disease Epidemiology Collaboration (CKD-EPI) equation refit??without adjustment for race. BUN/Creatinine Ratio 31.3 LAB CHEMISTRY METHOD 08/17/2024 12:06 PM [facility] Calcium 9.8 8.5 - 10.5 mg/dL LAB CHEMISTRY METHOD 08/17/2024 12:06 PM [facility] AST (SGOT) 28 10 - 42 unit/L LAB CHEMISTRY METHOD 08/17/2024 12:06 PM [facility] ALT (SGPT) 21 10 - 60 unit/L LAB CHEMISTRY METHOD 08/17/2024 12:06 PM [facility] Alkaline Phosphatase 80 42 - 121 unit/L LAB CHEMISTRY METHOD 08/17/2024 12:06 PM [facility] Total Protein 7.2 6.0 - 8.0 g/dL LAB CHEMISTRY METHOD 08/17/2024 12:06 PM [facility] Albumin 3.5 3.2 - 5.0 g/dL LAB CHEMISTRY METHOD 08/17/2024 12:06 PM EDT [facility] Total Bilirubin 0.2 0.0 - 1.4 mg/dL LAB CHEMISTRY METHOD 08/17/2024 12:06 PM [facility] Blood Venous blood specimen / Unknown Venipuncture / Unknown 08/17/2024 5:38 AM EDT 08/17/2024 10:35 AM EDT us Kenny Malave MD LAB BLOOD ORDERABLES Final Resul t [facility] [address] [place] [address], [place] [phone] * (ABNORMAL) Complete blood count (08/17/2024 5:38 AM EDT) WBC 4.8 4.8 - 10.8 K/mcL LAB HEMETOLOGY METHOD 08/17/2024 11:44 AM [facility] RBC 3.70(L) 3.80 - 4.80 M/mcL LAB HEMETOLOGY METHOD 08/17/2024 11:44 AM [facility] Hemoglobin 10.3(L) 11.5 - 16.0 g/dL LAB HEMETOLOGY METHOD 08/17/2024 11:44 AM [facility] Hematocrit 31.4(L) 35.0 - 47.0 % LAB HEMETOLOGY METHOD 08/17/2024 11:44 AM [facility] MCV 85.8 79.0 - 98.0 FL LAB HEMETOLOGY METHOD 08/17/2024 11:44 AM [facility] MCH 28.1 27.0 - 32.0 pcg LAB HEMETOLOGY METHOD 08/17/2024 11:44 AM [facility] MCHC 32.8 32.0 - 37.0 g/dL LAB HEMETOLOGY METHOD 08/17/2024 11:44 AM EDT [facility] RDW 14.2 11.0 - 15.0 % LAB HEMETOLOGY METHOD 08/17/2024 11:44 AM EDT [facility] Platelets 402(H) 130 - 400 K/mcL LAB HEMETOLOGY METHOD 08/17/2024 11:44 AM EDT [facility] MPV 8.5 7.0 - 11.0 FL LAB HEMETOLOGY METHOD 08/17/2024 11:44 AM EDT [facility] NRBC 0.0 <1.0 % LAB HEMETOLOGY METHOD 08/17/2024 11:44 AM EDT [facility] NRBC Absolute 0.00 <0.10 K/mcL LAB HEMETOLOGY METHOD 08/17/2024 11:44 AM EDT [facility] Blood Venous blood specimen / Unknown Venipuncture / Unknown 08/17/2024 5:38 AM EDT 08/17/2024 10:35 AM EDT us Kenny Malave MD LAB BLOOD ORDERABLES Final Resul t [facility] [address] [place] [address], documented in this encounter Visit Diagnoses Diagnosis Essential (primary) hypertension Unspecified essential hypertension documented in this encounter Care Teams Paraoptometric Relationship Specialty Start Date End Date Alan Chanel MD [address] [place] [address] Dr Orellana [facility] MAGEN Kruger PCP - General Internal Medicine 03/12/24 documented as of this encounter
--- OUTSIDE RECORDS SUMMARY | 2024-08-18 10:10 | XMS_ITS | Encounter Summary ---
Author Organization [facility] Address [address] [place] [address] Care Team Providers Care Crime Scene Evidence Technician Name Role Phone Alan Chanel MD Primary Care Provider [phone] Encounter Details Date Type Department Care Team (Late st Contact Info) Description 07/13/2024 Lab Requisition [facility] - Main Lab [address] [facility] [place] [address] Kenny Malave MD [address] [facility] [address] [place], [address] Anemia, unspecified; Chronic obstructive pulmonary disease, unspecified (CMS/HCC V24, [...] Associated Diagnosis Comments COMPLETE BLOOD COUNT Routine 07/14/2024 5:07 AM EDT Anemia, unspecified Chronic obstructive pulmonary disease, unspecified (CMS/HCC) PHOSPHORUS Routine 07/14/2024 5:07 AM EDT Anemia, unspecified Chronic obstructive pulmonary disease, unspecified (CMS/HCC) COMPREHENSIVE METABOLIC PANEL Routine 07/14/2024 5:07 AM EDT Anemia, unspecified Chronic obstructive pulmonary disease, unspecified (CMS/HCC) documented in this encounter Results * Phosphorus (07/14/2024 5:07 AM EDT) Phosphorus 4.3 2.5 - 4.5 mg/dL LAB CHEMISTRY METHOD 07/14/2024 9:15 AM [facility] Blood Venous blood specimen / Unknown Venipuncture / Unknown 07/14/2024 5:07 AM EDT 07/14/2024 7:45 AM EDT us Kenny Malave MD LAB BLOOD ORDERABLES Final Resul t [facility] [address] [place] [address], [place] [phone] * (ABNORMAL) Comprehensive metabolic panel (07/14/2024 5:07 AM EDT) [facility] Sodium 130(L) 133 - 145 mmol/L LAB CHEMISTRY METHOD 07/14/2024 9:15 AM [facility] Potassium 4.6 3.5 - 5.5 mmol/L LAB CHEMISTRY METHOD 07/14/2024 9:15 AM [facility] Chloride 95(L) 96 - 110 mmol/L LAB CHEMISTRY METHOD 07/14/2024 9:15 AM [facility] CO2 27 21 - 32 mmol/L LAB CHEMISTRY METHOD 07/14/2024 9:15 AM [facility] Anion Gap 8 3 - 11 LAB CHEMISTRY METHOD 07/14/2024 9:15 AM [facility] Glucose 79 70 - 100 mg/dL LAB CHEMISTRY METHOD 07/14/2024 9:15 AM [facility] BUN 20 5 - 25 mg/dL LAB CHEMISTRY METHOD 07/14/2024 9:15 AM [facility] Creatinine 0.63 0.50 - 1.10 mg/dL LAB CHEMISTRY METHOD 07/14/2024 9:15 AM [facility] eGFR 93 >=60 mL/min/1. 73m2 LAB CHEMISTRY METHOD 07/14/2024 9:15 AM T [facility] Comment:Calculation based on the??Chronic Kidney Disease Epidemiology Collaboration (CKD-EPI) equation refit??without adjustment for race. BUN/Creatinine Ratio 31.7 LAB CHEMISTRY METHOD 07/14/2024 9:15 AM EDT [facility] Calcium 9.8 8.5 - 10.5 mg/dL LAB CHEMISTRY METHOD 07/14/2024 9:15 AM [facility] AST (SGOT) 23 10 - 42 unit/L LAB CHEMISTRY METHOD 07/14/2024 9:15 AM [facility] ALT (SGPT) 22 10 - 60 unit/L LAB CHEMISTRY METHOD 07/14/2024 9:15 AM [facility] Alkaline Phosphatase 76 42 - 121 unit/L LAB CHEMISTRY METHOD 07/14/2024 9:15 AM [facility] Total Protein 7.3 6.0 - 8.0 g/dL LAB CHEMISTRY METHOD 07/14/2024 9:15 AM [facility] Albumin 3.7 3.2 - 5.0 g/dL LAB CHEMISTRY METHOD 07/14/2024 9:15 AM [facility] Total Bilirubin 0.3 0.0 - 1.4 mg/dL LAB CHEMISTRY METHOD 07/14/2024 9:15 AM [facility] Blood Venous blood specimen / Unknown Venipuncture / Unknown 07/14/2024 5:07 AM EDT 07/14/2024 7:45 AM EDT us Kenny Malave MD LAB BLOOD ORDERABLES Final Resul t [facility] [address] [place] [address], [place] [phone] * (ABNORMAL) Complete blood count (07/14/2024 5:07 AM EDT) WBC 3.9(L) 4.8 - 10.8 K/mcL LAB HEMETOLOGY METHOD 07/14/2024 8:49 AM [facility] RBC 3.90 3.80 - 4.80 M/mcL LAB HEMETOLOGY METHOD 07/14/2024 8:49 AM [facility] Hemoglobin 11.2(L) 11.5 - 16.0 g/dL LAB HEMETOLOGY METHOD 07/14/2024 8:49 AM [facility] Hematocrit 33.5(L) 35.0 - 47.0 % LAB HEMETOLOGY METHOD 07/14/2024 8:49 AM [facility] MCV 85.2 79.0 - 98.0 FL LAB HEMETOLOGY METHOD 07/14/2024 8:49 AM [facility] MCH 28.5 27.0 - 32.0 pcg LAB HEMETOLOGY METHOD 07/14/2024 8:49 AM [facility] MCHC 33.4 32.0 - 37.0 g/dL LAB HEMETOLOGY METHOD 07/14/2024 8:49 AM [facility] RDW 17.1(H) 11.0 - 15.0 % LAB HEMETOLOGY METHOD 07/14/2024 8:49 AM [facility] Platelets 539(H) 130 - 400 K/[facility] LAB HEMETOLOGY METHOD 07/14/2024 8:49 AM [facility] MPV 8.2 7.0 - 11.0 FL LAB HEMETOLOGY METHOD 07/14/2024 8:49 AM [facility] NRBC 0.0 <1.0 % LAB HEMETOLOGY METHOD 07/14/2024 8:49 AM [facility] NRBC Absolute 0.00 <0.10 K/mcL LAB HEMETOLOGY METHOD 07/14/2024 8:49 AM EDT [facility] Blood Venous blood specimen / Unknown Venipuncture / Unknown 07/14/2024 5:07 AM EDT 07/14/2024 7:45 AM EDT us Kenny Malave MD LAB BLOOD ORDERABLES Final Resul t [facility] [address] [place] [address], documented in this encounter Visit Diagnoses Diagnosis Anemia, unspecified Chronic obstructive pulmonary disease, unspecified (CMS/HCC V24, CMS/HCC V28) documented in this encounter Care Teams Crime Scene Evidence Technician Relationship Specialty Start Date End Date Alan Chanel MD [address] [place] [address] [address] [place], [place] PCP - General Internal Medicine 03/12/24 documented as of this encounter
--- OUTSIDE RECORDS SUMMARY | 2024-08-18 10:10 | XMS_ITS | Encounter Summary ---
Author Organization [facility] Address [address] [place] [address] Care Team Providers Care Acid Etch Operator Name Role Phone Alan Chanel MD Primary Care Provider Encounter Details Date Type Department Care Team (Late st Contact Info) Description 04/22/2024 Lab Requisition [facility] - Main Lab [address] [facility] [place] [address] Ever Reyna MD [address] [place] [phone] Encounter for other general examination Social History [...] LAB CHEMISTRY METHOD 04/22/2024 11:23 AM EST [facility] Urine Urine specimen obtained by clean catch procedure / Unknown 04/22/2024 4:20 AM EST 04/22/2024 9:49 AM EST us Ever Reyna MD LAB URINE ORDERABLES Final Res ult Performing Organization Address City/[facility]/ZIP Co de Phone Number [facility] [address] [place] [address], [place] [phone] * Sodium, urine, random (04/22/2024 4:20 AM EST) Sodium, Ur 54 mmol/L LAB CHEMISTRY METHOD 04/22/2024 11:29 AM EST [facility] Urine Urine specimen obtained by clean catch procedure / Unknown 04/22/2024 4:20 AM EST 04/22/2024 9:49 AM EST Ever Reyna MD LAB URINE ORDERABLES Final Res ult Performing Organization Address [facility]/ZIP Co de Phone Number [facility] [address] [place] [address], [place] [phone] documented in this encounter Visit Diagnoses Diagnosis Encounter for other general examination documented in this encounter Care Teams Acid Etch Operator Relationship Specialty Start Date End Date Alan Chanel MD [address] [place] [address] Dr Reyna Kruger [place] PCP - General Internal Medicine 03/12/24 documented as of this encounter
--- OUTSIDE RECORDS SUMMARY | 2024-08-18 10:10 | XMS_ITS | Data Portability ---
Author Organization [facility], Main Office Address [address] [facility] [place] [address] Care Team Providers Care At Home Independent Call Center Agent Name Role Phone DANIEL PETER - 2ND FLOOR OTHER LAUREN ROSAS Primary Care Provider [phone] Assessment No assessment recorded. Plan of Treatment [...] Recorded Time Adult failure to thrive syndrome 922890604 Active 2023 Kenny Mlaave MD [address] [facility], [facility] [address], [place], [address], [facility] 13:42:50 Syndrome of inappropria te vasopressin secretion 35359823 Active 2023 Kenny Malave MD [address] [facility], [address], [place], [address], [facility] 13:42:57 Unsteady when walking 14188058 Active 2023 Kenny Malave MD [address] [facility], [address], [place], [address] , [facility] 4 13:43:03 Essential hypertensio n 81562428 Active 2023 Kenny Malave MD [address] [facility], [address], [place], [address], [facility] [employer] 13:43:09 Anemia 473848191 Active 2023 Kenny Malave MD [address], [address], [place], [address], [facility] 4 13:43:14 Chronic obstructive pulmonary disease 47560159 Active 2023 Kenny Malave MD [address], [address], [place], [address], [place] [facility] 4 13:43:19 Osteoporosi s 47054193 Active 2023 Kenny Malave MD [address], [address], [place], [address], [facility] 4 13:43:27 Neuropathy 098098843 Active 2023 Kenny Malave MD [address], [address], [place], [address], [facility] 4 13:43:33 Mood disorder 49504607 Active 2023 Kenny Malave MD [address] [facility], [address], [place], [address], [place] [facility] 4 13:43:41 Closed fracture of left patella 5852332973977 9105 Active 2023 Kenny Malave MD [address], [address], [place], [address], [facility] 4 13:44:22 Hearing loss 96644039 Active 2023 Kenny Malave MD [address] [facility], [address], [place], [address], [facility] 4 13:56:41 Problem Notes None recorded. Medical Equipment None Reported. Allergies No known drug allergies Medications Not known to be on any medication Vitals Date Recorded Body weight Heart rate Respiratory rate Body temperature Oxygen saturation Oxygen saturation in Arterial blood by Pulse oximetry Systolic blood pressure Diastolic blood pressure Provider Name and Address Organization Details Last Updated DateTime 5 42808.1 6 g 68 /min 18 /min 97.3 [degF] 98 % 98 % 110 mm[Hg] 62 mm[Hg] Radha Hickey NP [address] [facility], [address], [place], [address], [facility] 5 12:26:42 Date Recorded Heart rate Respiratory rate Body temperature Oxygen saturation Oxygen saturation in Arterial blood by Pulse oximetry Systolic blood pressure Diastolic blood pressure Provider Name and Address Organization Details Last Updated DateTime 5 68 /min 18 /min 97.3 [degF] 98 % 98 % 110 mm[Hg] 62 mm[Hg] MAYDA WHIPPLE NP [address] [facility], [address], [place], [address], [facility] 5 13:51:57 Date Recorded Body weight Heart rate Respiratory rate Body temperature Oxygen saturation Oxygen saturation in Arterial blood by Pulse oximetry Systolic blood pressure Diastolic blood pressure Provider Name and Address Organization Details Last Updated DateTime 5 99531.1 6 g 68 /min 18 /min 97 [degF] 98 % 98 % 110 mm[Hg] 62 mm[Hg] Radha Hickey NP [address] [facility], [facility] [address], [place], [address], [facility] 5 09:20:23 Date Recorded Body weight Heart rate Respiratory rate Body temperature Oxygen saturation Oxygen saturation in Arterial blood by Pulse oximetry Systolic blood pressure Diastolic blood pressure Provider Name and Address Organization Details Last Updated DateTime 5 03348.1 6 g 68 /min 18 /min 97.3 [degF] 98 % 98 % 110 mm[Hg] 62 mm[Hg] Radha Hickey NP [address] [facility], [facility] [address], [place], [address], [facility] 5 08:38:32 Social History Question Answer Notes LastModified by Organizat ion Details LastModified Time Tobacco Smoking Status Former Smoker 2 ppd smoker quit early 2023 Kenny Malave MD [address] [facility], [facility] [address], [place], [address], [facility] 04/28/2024 13:58:17 Do You Have An Advance Directive? No Information not available 04/28/2024 What Is Your Level Of Alcohol Consumption? None Information not available 04/28/2024 What Is Your Code Status? [email or web address] [id number] Information not available 04/30/2024 How Much Tobacco [...] Recorded Time Tdap 6 completed Joann Kulwant [facility] 05/05/2024 16:34:17 pneumococcal polysaccharide PPV23 6 completed Joann Kulwant [facility] 05/05/2024 16:34:32 influenza, unspecified formulation 4 completed Joann Kulwant [facility] 05/05/2024 16:34:49 influenza, unspecified formulation 3 completed Joann Kulwant [facility] 05/05/2024 16:34:56 influenza, unspecified formulation 2 completed Joann Kulwant [facility] 05/05/2024 16:35:02 Past Encounters Encounter ID Performer Location Encounter Start Date Encounter Closed Date Diagnosis/Indication Diagnosis SNOMED-CT Code Diagnosis ICD10 Code Diagnosis Note [id number] Kenny Malave MD [address] [address] 04/28/2024 13:33:15 04/30/2024 11:05:32 Adult failure to thrive syndrome 395652451 R62.7 see HPInot able to be cared for in communitym onitor need for increased servicesco ntinue supportive care at facilitypo or PO intake priordieta ry to evalmonito r weights Closed fra cture of left patella 7396265890 4294886 S82.015G prior fall with left knee fxACL brace in placeNWB till cleared by orthofollo w ortho recs and update with concernstr amadol 50 mg q 8 prnmonitor pain control Syndrome o f inappropriate vasopressin secretion 04175983 E22.2 monitor Na and need to adjust fluid restrictio n Acute hypokalemia 254304 03 E87.6 improved with supplement monitor lytes Unsteady when walking 22 868901 R26.89 NWB LLE till cleared by orthoPT OT eval and treat for deconditio funmilayo Essential hypertension 90359219 I10 lisinopril 5 mg qdmonitor bp and need to titrate Anemia 679454040 D50.8 monitor cbciron studies prn Chronic ob structive pulmonary disease 62266535 J41.1 carrying dx added to PMHmonitor respirator y status Osteoporosis 23791231 M8 1.0 added to PMH Neuropathy 540325497 G62 .89 carrying dx added to PMHmonitor sx Mood disorder 72035888 F 34.89 with underlying anxietyati van 0.5 mg bidzoloft 50 mg qd Hearing loss 29980815 H9 0.0 audiology eval prn [id number] Radha Hickey NP [facility] [address] [address] 05/15/2024 12:28:25 05/19/2024 09:13:20 Adult failure to thrive syndrome 227111321 R62.7 see HPIshe was not able to be cared for in community with tibia fxmonitor need for increased servicesco ntinue supportive care at facilitydi etary to evalmonito r weights Closed fra cture of left patella 3110246067 7540189 S82.015G prior fall with left knee fxcontACL brace in placeNWB till cleared by orthofollo w ortho recs and update with concernstr amadol 50 mg q 8 prnmonitor pain controlfu with ortho [facility] on 05/19/24 Syndrome o f inappropriate vasopressin secretion 14583726 E22.2 monitor Na and need to adjust fluid restrictio nno s/s of siadh Acute hypokalemia 413980 03 E87.6 improved with supplement monitor lytes Unsteady when walking 22 398090 R26.89 NWB LLE till cleared by orthoPT OT eval and treat for deconditio ningmonito r Essential hypertension 49639535 I10 bp stablelisi nopril 5 mg qdmonitor bp and need to titrate Anemia 676689410 D50.8 monitor cbciron studies prn Chronic ob structive pulmonary disease 39736976 J41.1 carrying dx added to PMHmonitor respirator y statusadva ir inhaler 1 puff po bidalbuter ol for wheezes q 4 prn Osteoporosis 92639359 M8 1.0 hx ofcalcium Neuropathy 930848187 G62 .89 hx ofmonitor sx Mood disorder 19262388 F 34.89 with underlying anxietyati van 0.5 mg bidzoloft 50 mg qd [id number] MAYDA WHIPPLE NP [facility] [address] [place] [address] 05/20/2024 12:54:44 05/22/2024 14:28:37 Closed fracture of left patella 5899098273 0926058 S82.015G prior fall with left knee fxcontACL brace in placePT OT eval and tx.NWB till cleared by ortho - seen yesterday, get consult note to reviewfoll ow ortho recs and update with concernstr amadol 50 mg q 8 prnmonitor pain controlfu with ortho [facility] as sched. Unsteady when walking 22 351430 R26.89 NWB LLE till cleared by orthoPT OT eval and treat for deconditio ningmonito r Adult fail ure to thrive syndrome 496150630 R62.7 see HPIshe was not able to be cared for in community with tibia fxmonitor need for increased servicesco ntinue supportive care at facilitydi etary to evalmonito r weights Syndrome o f inappropriate vasopressin secretion 27964152 E22.2 monitor Na and need to adjust fluid restrictio nCurrent Na level 134, repeat x 1 05/25no s/s of siadh Acute hypokalemia 518130 03 E87.6 improved with supplement current K level 3.4monitor lytes - repeat 05/25 Essential hypertension 95090274 I10 bp stablecont inue lisinopril 5 mg qdmonitor bp and need to titrate Anemia 334368825 D50.8 monitor cbcHgb. 11iron studies prn Chronic ob structive pulmonary disease 59052606 J41.1 carrying dx added to PMHmonitor respirator y statusadva ir inhaler 1 puff po bidalbuter ol for wheezes q 4 prn Osteoporosis 68391144 M8 1.0 hx ofcalcium Neuropathy 651644315 G62 .89 hx ofmonitor sx Mood disorder 49873561 F 34.89 with underlying anxietyati van 0.5 mg bidzoloft 50 mg qdSeen by Psych provider 05/11, no new recommenda tionsMonit or mood, behaviors. [id number] MAYDA WHIPPLE NP [facility] [place] [address] 05/27/2024 14:06:34 05/28/2024 10:49:56 Closed fracture of left patella 9186320448 3084183 S82.015G prior fall with left knee fxcontACL brace in placePT OT eval and tx.Seen by Ortho last week, second request for office note to review.fol low ortho recs and update with concernstr amadol 50 mg q 8 prnmonitor pain controlfu with ortho [facility] as sched. Unsteady when walking 22 703825 R26.89 NWB LLE till cleared by orthoPT OT eval and treat for deconditio ningmonito r Adult fail ure to thrive syndrome 826642258 R62.7 see HPIshe was not able to be cared for in community with tibia fxmonitor need for increased servicesco ntinue supportive care at facilitydi etary to evalmonito r weights Syndrome o f inappropriate vasopressin secretion 32274235 E22.2 monitor Na and need to adjust fluid restrictio nCurrent Na level 134, repeat x 1 05/25 not done - check in amno s/s of siadh Acute hypokalemia 318127 03 E87.6 improved with supplement current K level 3.4monitor lytes - repeat 05/25 not done, check in am Essential hypertension 73745640 I10 bp stablecont inue lisinopril 5 mg qdmonitor bp and need to titrate Anemia 143250998 D50.8 monitor cbcHgb. 11iron studies prn Chronic ob structive pulmonary disease 61220117 J41.1 carrying dx added to PMHmonitor respirator y statusadva ir inhaler 1 puff po bidalbuter ol for wheezes q 4 prn Osteoporosis 27191896 M8 1.0 hx ofcalcium Neuropathy 186022303 G62 .89 hx ofmonitor sx Mood disorder 84682706 F 34.89 with underlying anxietyati van 0.5 mg bidzoloft 50 mg qdSeen by Psych provider 05/11, no new recommenda tionsMonit or mood, behaviors. Viral gastroenteritis 11 5353126 A08.4 N/V/GI upset x 2-3d.Concepcion nue symptomati c treatmentR estEncshaia ge fluids, clear liquids, advance as able.Hold laxativesP RN imodium and zofran available as well.BMP in am (not done on 05/25) [id number] MAYDA WHIPPLE NP [facility] [address] [place] [address] 06/03/2024 15:04:46 06/05/2024 09:47:09 Viral gastroenteritis 753661470 A08.4 N/V/GI upset x 2-3d last weekNow resolved. Closed fra cture of left patella 5600688411 4397412 S82.015G prior fall with left knee fxcontACL brace in placePT OT eval and tx.Seen by Ortho 2 wks ago, still no note scanned into EMR. Will request again.Foll ow ortho recs and update with concernstr amadol 50 mg q 8 prnmonitor pain controlfu with ortho hmc as sched. Unsteady when walking 22 756096 R26.89 NWB LLE till cleared by orthoPT OT eval and treat for deconditio ningmonito r Adult fail ure to thrive syndrome 148770950 R62.7 see HPIshe was not able to be cared for in community with tibia fxmonitor need for increased servicesco ntinue supportive care at facilitymo nitor weights, intake Syndrome o f inappropriate vasopressin secretion 74947086 E22.2 monitor Na and need to adjust fluid restrictio nMost recent level 135 on 05/28no s/s of siadhMonit or labs Acute hypokalemia 726830 03 E87.6 improved with supplement current K level 3.3not on obvious K depleting medsmonito r lytes - repeat in am Essential hypertension 93777855 I10 bp stablecont inue lisinopril 5 mg qdmonitor bp and need to titrate Anemia 682527514 D50.8 monitor cbcHgb. 11iron studies prn Chronic ob structive pulmonary disease 95935269 J41.1 carrying dx added to PMHmonitor respirator y statusadva ir inhaler 1 puff po bidalbuter ol for wheezes q 4 prn Osteoporosis 72837913 M8 1.0 hx ofcontinue calcium Neuropathy 230740049 G62 .89 hx ofmonitor sx Mood disorder 03274919 F 34.89 with underlying anxietyati van 0.5 mg bidzoloft 50 mg qdSeen by Psych provider 05/11, no new recommenda tionsMonit or mood, behaviors. [id number] Radha Hickey, SHEBA [facility] [address] [place] [address] 06/05/2024 08:46:02 06/08/2024 14:56:21 Viral gastroenteritis 616001672 A08.4 resolvingN /V/GI upset x 2-3d last week with likely potassium loss related to virus and vomitingNo w resolved. Closed fra cture of left patella 1820475377 6079966 S82.015G prior fall with left knee fxcontACL brace in placePT OT eval and tx.Seen by Ortho 2 wks ago, still no note scanned into EMR. Will request again.Foll ow ortho recs and update with concernstr amadol 50 mg q 8 prnmonitor pain controlfu with ortho [facility] as sched. Unsteady when walking 22 816696 R26.89 NWB LLE till cleared by orthoPT OT eval and treat for deconditio ningmonito r Adult fail ure to thrive syndrome 090357395 R62.7 see HPIshe was not able to be cared for in community with tibia fxmonitor need for increased servicesco ntinue supportive care at facilitymo nitor weights, intake Syndrome o f inappropriate vasopressin secretion 18043438 E22.2 monitor Na and need to adjust fluid restrictio nMost recent level 138 improving from last weekno s/s of siadhMonit or labs Acute hypokalemia 721501 03 E87.6 current K level 3.2 with recent loss for gi virus06/05 start potassium 40 meq x 2 dosesrepea t labs on 2/3 Chronic ob structive pulmonary disease 82678014 J41.1 carrying dx added to PMHmonitor respirator y statusadva ir inhaler 1 puff po bidalbuter ol for wheezes q 4 prn Mood disorder 31814763 F 34.89 with underlying anxietyati van 0.5 mg bidzoloft 50 mg qdSeen by Psych provider 05/11, no new recommenda tionsMonit or mood, behaviors. Essential hypertension 95755536 I10 bp stablecont inue lisinopril 5 mg qdmonitor bp and need to titrate [id number] Rad[facility] [address] [place] [address] 06/11/2024 11:27:16 06/12/2024 13:49:32 Acute hypokalemia 44427025 E87.6 labs improved on 2 with k supplement sp gi virus Viral gastroenteritis 11 4553307 A08.4 resolvedN/ V/GI upset x 2-3d last week with likely potassium loss related to virus and vomitingNo w resolved. Closed fra cture of left patella 1144030698 8843384 S82.015G prior fall with left knee fxcontACL brace in placePT OT eval and tx.Seen by Ortho 2 wks ago, still no note scanned into EMR. Will request again.Foll ow ortho recs and update with concernstr amadol 50 mg q 8 prnmonitor pain controlfu with ortho [facility] as sched. Unsteady when walking 22 434980 R26.89 NWB LLE till cleared by orthoPT OT eval and treat for deconditio ningmonito r Adult fail ure to thrive syndrome 315297597 R62.7 see HPIshe was not able to be cared for in community with tibia fxmonitor need for increased servicesco ntinue supportive care at facilitymo nitor weights, intake Syndrome o f inappropriate vasopressin secretion 93807672 E22.2 monitor Na and need to adjust fluid restrictio nno s/s of siadhMonit or labs as above Chronic ob structive pulmonary disease 58403570 J41.1 carrying dx added to PMHmonitor respirator y statusadva ir inhaler 1 puff po bidalbuter ol for wheezes q 4 prn Mood disorder 01441378 F 34.89 with underlying anxiety, stable hereativan 0.5 mg bidzoloft 50 mg qdSeen by Psych provider 05/11, no new recommenda tionsMonit or mood, behaviors. [id number] MAYDA WHIPPLE NP [facility] [address] [address] 06/17/2024 09:17:58 06/18/2024 13:31:49 Acute hypokalemia 61075032 E87.6 labs improved on 2 = 5Continue to monitor Viral gastroenteritis 11 7824884 A08.4 resolved Closed fra cture of left patella 2580872383 1021687 S82.015G prior fall with left knee fxcontACL brace in placePT OT eval and tx.Follow ortho recs and update with concernsNe xt appt. 06/30tramad ol 50 mg q 8 prnmonitor pain control Unsteady when walking 22 554286 R26.89 NWB LLE till cleared by orthoPT OT eval and treat for deconditio ningmonito r Adult fail ure to thrive syndrome 757909696 R62.7 see HPIshe was not able to be cared for in community with tibia fxmonitor need for increased services in prep. for dischargec ontinue supportive care at facilitymo nitor weights, intake Syndrome o f inappropriate vasopressin secretion 13771105 E22.2 monitor Na, currently 136Does not appear to be on a FR at this time.no s/s of siadhMonit or labs Chronic ob structive pulmonary disease 79741316 J41.1 monitor respirator y status - currently stablecont inue:advai r inhaler 1 puff po bidalbuter ol for wheezes q 4 prn Mood disorder 69177655 F 34.89 with underlying anxietyCon tinue:ativ an 0.5 mg bidzoloft 50 mg qdSeen by Psych provider 05/11, no new recommenda tionsMonit or mood, behaviors. Essential hypertension 69462348 I10 VSScontinu e lisinopril 5 mg qdmonitor bp and need to titrate Osteoporosis 21360734 M8 1.0 hx ofcontinue calcium Anemia 579673223 D50.8 monitor cbcHgb. 10.6iron studies prn Neuropathy 689193516 G62 .89 hx ofmonitor sx [id number] Radha Hickey NP [facility] [address] [address] 06/24/2024 10:59:23 06/26/2024 16:05:53 Acute hypokalemia 45076118 E87.6 stablelike ly related to gi viruslabs improved on 06/08 = 5Continue to monitor Viral gastroenteritis 11 6314104 A08.4 resolved Closed fra cture of left patella 7361828715 4887219 S82.015G prior fall with left knee fxcontACL brace in placePT OT eval and tx.Follow ortho recs and update with concernsNe xt appt. 06/30tramad ol 50 mg q 8 prnmonitor pain control Unsteady when walking 22 342075 R26.89 NWB LLE till cleared by orthoPT OT eval and treat for deconditio funmilayo prnmonitor Adult fail ure to thrive syndrome 833721248 R62.7 not able to be cared for in community with tibia fxmonitor need for increased services in prep. for dischargec ontinue supportive care at facilitymo nitor weights, intake Syndrome o f inappropriate vasopressin secretion 65171455 E22.2 monitor Na, labs as aboveDoes not appear to be on a FR at this time.no s/s of siadhMonit or labs Chronic ob structive pulmonary disease 37634571 J41.1 monitor respirator y status - currently stablecont inue:advai r inhaler 1 puff po bidalbuter ol for wheezes q 4 prn Mood disorder 28787143 F 34.89 with underlying anxiety, stable on ativan hereContin ue:ativan 0.5 mg bidzoloft 50 mg qdSeen by Psych provider 05/11, no new recommenda tionsMonit or mood, behaviors. [id number] Radha Hickey NP [facility] [address] [place] [address] 07/03/2024 07:35:22 07/07/2024 12:51:41 Closed fracture of left patella 8370670300 1377222 S82.015G prior fall with left knee fxcontACL brace in placePT OT eval and tx. prn, currently off therapyFol low ortho recs and update with concernsap pt. 06/30, awaiting progress notetramad ol 50 mg q 8 prnmonitor pain control Unsteady when walking 22 297064 R26.89 NWB LLE till cleared by ortho, awaiting note from ortho 06/30 for recPT OT eval and treat for deconditio funmilayo prnmonitor Adult fail ure to thrive syndrome 169128709 R62.7 doing well here overallnot able to be cared for in community with tibia fxmonitor need for increased services in prep. for dischargec ontinue supportive care at [facility] nitor weights, intake Mood disorder 38197574 F 34.89 with underlying anxiety, stable on ativan hereContin ue:ativan 0.5 mg bidzoloft 50 mg qdSeen by Psych provider 05/11, no new recommenda tionsMonit or mood, behaviors. [id number] HERNESTO ROSALES, TIANNA [address] [address] 07/08/2024 15:41:12 07/09/2024 16:16:40 Closed fracture of left patella 3640425399 3272830 S82.015G prior fall with left knee fxcontACL brace in placePT OT eval and tx. prn, currently off therapyFol low ortho recs and update with concernsap pt. 07/10/24.Fol lowed by Dr. Lucero, recommende d to reduce tramadol 50 mg to daily.siddharth tor pain control Unsteady when walking 22 653222 R26.89 NWB LLE till cleared by ortho, has a follow up appoint on 07/10/24.PT OT eval and treat for deconditio funmilayo prnmonitor Adult fail ure to thrive syndrome 150833235 R62.7 doing well here overallnot able to be cared for in community with tibia fxmonitor need for increased services in prep. for dischargec ontinue supportive care at [facility] nitor weights, intake Mood disorder 50711976 F 34.89 with underlying anxiety, stable on ativan hereContin ue:ativan 0.5 mg bidzoloft 50 mg qdSeen by Psych provider 05/11, no new recommenda tionsMonit or mood, behaviors. Hyponatremia 90126208 E8 7.1 Lab result revealed hyponatrem ia today, 132.Pt is asymptomat ic.Will repeat labs on Sat X1. [id number] Kenny Malave MD [facility] [address] [address] 07/11/2024 10:29:54 07/14/2024 10:06:26 Closed fracture of left patella 7969273552 2511429 S82.015G upcoming ortho apptNWB till cleared by orthofollo w ortho recs and update with concerns Syndrome o f inappropriate vasopressin secretion 69581481 E22.2 now off fluid restrictio nmonitor Na and need to restart Essential hypertension 64916464 I10 lisinopril 5 mg qdmonitor bp and need to titrate [id number] HERNESTO ROSALES CNP [facility] [address] [address] 07/15/2024 12:24:15 07/16/2024 14:25:31 Hyponatremia 12644563 E87.1 S/t SIDAH, Lab result trending down, today Na was 131.Start fluid restrictio n 1800 ml /day.Will check lab, CBC, CMP weekly X4.Pt is asymptomat ic, continue monitor. Closed fra cture of left patella 7093313564 3055461 S82.015G prior fall with left knee fxFollowed up with ortho, cleared to WBAT LLE from 07/09/24.con tACL brace one more week.PT OT eval and tx. prn, currently on therapyWil l schedule for ortho follow up in [address] Lucero for rehab and pain management monitor pain control Unsteady when walking 22 144597 R26.89 Cleared by ortho for WBAT.Concepcion nue PT OT eval and treatment. monitor Adult fail ure to thrive syndrome 807783264 R62.7 doing well here overall, wt stablenot able to be cared for in community with tibia fxmonitor need for increased services in prep. for dischargec ontinue supportive care at facilitymo nitor weights, intake Mood disorder 83240421 F 34.89 with underlying anxiety, stable on ativan hereContin ue:ativan 0.5 mg bidzoloft 50 mg qdSeen by Psych provider 05/11, no new recommenda tionsMonit or mood, behaviors. [id number] HERNESTO ROSALES TIANNA [facility] [address] [address] 07/22/2024 10:40:07 07/24/2024 14:48:08 Hyponatremia 79468036 E87.1 S/t SIDAH, Lab result trending down, today Na was 129Reduce fluid restrictio n to 1500 ml /day. ? compliance .Will continue check lab, CBC, CMP weekly X3.Discuss ed with nursing staffs for hyponatrem ia and fluid restrictio n.Pt currently asymptomat ic. Will monitor closely.Jessie bergman consider to adjust her sertraline dosage. Closed fra cture of left patella [id number] S82.015G prior fall with left knee fxFollowed up with ortho, cleared to WBAT LLE from 07/09/24.con tACL brace loosened, and continues to use it when she ambulates. PT OT eval and tx. prn, currently on therapyWil l have ortho follow up in [address] Lucero for rehab and pain management monitor pain control Unsteady when walking 22 460640 R26.89 Cleared by ortho for WBAT.Concepcion nue PT OT eval and treatment. monitor Adult fail ure to thrive syndrome [id number] R62.7 doing well here overall, wt stablenot able to be cared for in community with tibia fxmonitor need for increased services in prep. [facility] Mood disorder 57392126 F 34.89 with underlying anxiety, stable on ativan hereContin ue:ativan 0.5 mg bidzoloft 50 mg qdSeen by Psych provider 05/11, no new recommenda tionsMonit or mood, behaviors. [id number] Radha Hickey, SHEBA [facility] [address] [address] 07/27/2024 12:24:14 07/29/2024 15:15:58 Hyponatremia [id number] E87.1 S/t SIDAH, Lab result trending down, [...] needed Closed fra cture of left patella [id number] 7240125 S82.015G prior fall with left knee fxFollowed [...] monitor pain control Unsteady when walking 22 406872 R26.89 Cleared by ortho for WBAT.Concepcion nue PT OT eval and treatment. monitor Adult fail ure to thrive syndrome 135041438 R62.7 doing well here overall, wt stablenot able to be cared for in community with tibia fxmonitor need for increased services in prep. for dischargec [facility] nitor weights, intake Mood disorder 12519442 F 34.89 with underlying anxiety, stable on ativan hereContin ue:ativan 0.5 mg bidzoloft 50 mg qdpsych prnMonitor mood, behaviors. Insomnia [id number] G47.0 0 pt with insomnia reports very little to no sleep overnight /24 start melatonin 5 mg po qhsmonitor for sleep [id number] [facility] [address] 08/05/2024 17:02:47 08/07/2024 14:51:13 Closed fracture of left patella [id number] 1688645 S82.015G prior fall with left knee fx [...] and pain management monitor pain control Insomnia 163581190 G47.0 0 sleep improvingc ontmelaton in 5 mg po qhsmonitor for sleep Hyponatremia 89410854 E8 7.1 S/t SIDAH, sodium boderline 131, actually trending upReduce fluid restrictio n to 1500 ml /day. ? compliance .nsg to follow for complaince CBC, CMP weekly X3.Discuss ed with nursing staffs for hyponatrem ia and fluid restrictio n.Pt currently asymptomat ic.monitor closely.Jessie bergman consider to adjust her sertraline dosage if needed Unsteady when walking 22 365629 R26.89 Cleared by ortho for WBAT.Concepcion nuePT OT eval and treatment. monitor Adult fail ure to thrive syndrome 274757058 R62.7 doing well here overall, wt stablenot able to be cared for in community with tibia fxmonitor need for increased services in prep. for [facility] Mood disorder 89053722 F 34.89 with underlying anxiety, stable on ativan hereContin ue:ativan 0.5 mg bidzoloft 50 mg qdpsych prnMonitor mood, behaviors. [id number] MAYDA WHIPPLE NP [address] [address] 08/06/2024 13:31:04 08/10/2024 08:13:35 Closed fracture of left patella [id number] S82.015G prior fall with left knee fxFollowed up with ortho, cleared to WBAT LLE from 07/09/24.Con tinue brace with ambulation .PT OT eval and tx. prn, currently on program with PTOrtho follow up in place - should be soon.concepcion nue tramadol 50 mg po qd prn mod pain, not using lately.Miguel lowed by Dr. Lucero for rehab and pain management monitor Insomnia 416264725 G47.0 0 Newer complaintS tarted melatonin 5 mg po qhs 07/27No complaints now Hyponatremia 61809062 E8 7.1 SIDAHTrend ing Na levels, currently 131.Contin ue FR 1.5 L/d, ? compliance .Also on SSRI, monitor need to adjust Unsteady when walking 22 775894 R26.89 Cleared by ortho for WBAT.Concepcion nue PT OT eval and tx. prnmonitor Adult fail ure to thrive syndrome 663167628 R62.7 doing well here overall, wt stablenot able to be cared for in community with tibia fxmonitor need for increased services in prep. for [facility]c [facility], intake Mood disorder 93234312 F 34.89 with underlying anxiety, stable on ativan hereContin ue:ativan 0.5 mg bidzoloft 50 mg qdpsych prnMonitor mood, behaviors. [id number] Radha Hickey, [facility] [address] 08/13/2024 08:38:03 08/17/2024 12:56:37 Closed fracture of left patella [id number] 3802535 S82.015G prior fall with left knee fxFollowed up with orthocontc leared to WBAT LLE from 07/09/24 apptbrace and walker with ambulation , remains unsteadytr amadol 50 mg po qd prn mod pain, not using lately.PT OT eval and tx. prn, currently on program with PTOrtho follow up in place - should be soon.Follo wed by Dr. Lucero for rehab and pain management monitor Insomnia 839070435 G47.0 0 Newer complaintS tarted melatonin 5 mg po qhs 07/27 with good effectNo complaints now Hyponatremia 67548545 E8 7.1 SIDAHTrend ing Na levels, currently 131.4/10 decrease sertraline from 50 mg to 25 mgContinue FR 1.5 L/d, ? compliance .Also on SSRI, monitor need to adjust Unsteady when walking 22 370800 R26.89 Cleared by ortho for WBAT.Concepcion nue PT OT eval and tx.monitor Adult fail ure to thrive syndrome 393884268 R62.7 wt stable, seems to do wellnot able to be cared for in community with tibia fxmonitor need for increased services in prep. for dischargec [facility] at [facility], intake Mood disorder 08079086 F 34.89 with underlying anxiety, stable on ativan hereContin ue:ativan 0.5 mg bid08/12 decrease sertraline from 50 mg to 25 mgpsych prnMonitor mood, behaviors. Health Concerns Section Related Observation LastModified by Organization Detai ls LastModified Time None Recorded Concern Status LastModified by Organization Details LastModified Time None Recorded Advance Directives Directive N: Payers Encounter Date Sequence Insurance Name Policy Number Policy Rock Covered Member ID Rock Member ID Guarantor Name 07/22/2024 1 [place] [employer] Trevon L Lauren [id number] Trevon Lauren 07/22/2024 2 [place] [facility] Trevon Lauren [id number] Trevon Lauren 07/27/2024 1 [place] [employer] Trevon L Lauren [id number] Trevon Lauren 07/27/2024 2 [place] [facility] Trevon Lauren [id number] Trevon Lauren 08/05/2024 1 [place] [employer] Trevon L Lauren [id number] Trevon Lauren 08/05/2024 2 [place] [facility] Trevon Lauren [id number] Trevon Lauren 08/06/2024 1 [place] [employer] Trevon L Lauren [id number] Trevon Lauren 08/06/2024 2 [place] [facility] Trevon Lauren [id number] Trevon Lauren 08/13/2024 1 [place] [employer] Trevon L Lauren [id number] Trevon Lauren 08/13/2024 2 [place] [facility] Trevon Lauren [id number] Trevon Lauren Notes Date Note Type Note Provider Name and Address Organization Details Recorded Time 07/22/2024 text/html Patient is a 73 yo female patient seen for acute visit today. Patient was initially admit from hospital for rehab and continued care after hospitalization for FTT and left knee fx. Patient had fall in Nov resulting in left knee fx dx from outside SNF 2 weeks prior. Patient lives alone with sister nearby however unable to care for self. Dx with adult FTT with noted hyponatremia due to SIADH, and hypokalemia improved with supplement and fluid restriction. Patient now off fluid restriction with recent Ym=234 on 07/09. Repeat lab on 07/15 and 07/20 showed her Na trending down.She currently is on fluid restriction 1800ml /day. She also takes SSRI, sertraline 50 mg daily that may cause hyponatremia. Pt had a follow up with ortho on 07/09/24 and recommended to have brace, unlocked for two weeks and PT for gait training, cleared for WBAT LLE, gluteal core and quad strengthening. Follow up with ortho in 6 weeks. No appointment sheduled yet. On exam, Trevon was sitting in a wheelchair in NAD. She reports she can walk brace and having mild left leg pain after exercise. Pt reports she uses Tylenol after exercise, not like to tramadol for pain. However, she wants to keep tramadol just in case for PRN. She is eating, drinking, and moving bowels regularly. PMH significant for SIADH,htn,anemia,copd ,osteoporosis,neuropa thy,mood disorder NOS HERNESTO ROSALES, BRICK CHIMNEY SUPERVISOR [address] [facility], [address], [place], [address], [facility] [employer] 07/22/2024 11:42:39 07/27/2024 text/html Patient is a 73 yo female patient seen for acute visit today. PMH significant for SIADH,htn,anemia,copd ,osteoporosis,neuropa thy,mood disorder NOS Patient was initially admit from hospital for rehab and continued care after hospitalization for FTT and left knee fx. Patient had fall in Nov resulting in left knee fx dx from outside SNF 2 weeks prior. Patient lives alone with sister nearby however unable to care for self. On exam, Trevon is seen in her room resting in [facility]. Reports she over did it with therapy on top of no sleep overnight. She does have a slight swollen left patella today. She continues with tramadol prn for pain with helps. of note:Dx with adult FTT with noted hyponatremia due to SIADH, and hypokalemia improved with supplement and fluid restriction.Recent Ou=957 on 07/09. Repeat lab on 07/15 and 07/20 showed her Na trending down and now stable for second week at 129. She currently is on fluid restriction 1500ml /day. She also takes SSRI, sertraline 50 mg daily that may cause hyponatremia. Will monitor and if na decreases will consider change in SSRI. of note: Pt had a follow up with ortho on 07/09/24 and recommended to have brace, unlocked for two weeks and PT for gait training, cleared for WBAT LLE, gluteal core and quad strengthening. Follow up with ortho in 6 weeks approx second or third week of august . No appointment scheduled yet. Radha Hickey NP [address] [facility], [address], [place], [address], [employer] 07/27/2024 14:02:30 08/05/2024 text/html Trevon is seen bernadine quiroz for an acute rounding visit. PMH significant for SIADH,htn,anemia,copd ,osteoporosis,neuropa thy,mood disorder NOS She is a 73 yo female here for continued care and rehab after a hospitalization due to FTT, left knee fx., hyponatremia due to SIADH, and hypokalemia. Trevon sodium level has been low stable and 131 on result. She does try to fluid restrict and typically runs on the lower side. No s/s of hyponatremia. Has history of SIADH. On exam, She is sitting up in a chair in NAD. She denies any pain or ailments. Overall feeling she is doing good and progressing. She continues to work with therapy. She follows with ortho last on 07/09/24, recommended to continue brace but allowed to weight bear and has locked and unlocked status. Radha Hickey NP [address] [facility], [address], [place], [address], [employer] 08/07/2024 09:31:24 08/06/2024 text/html Trevon is seen bernadine quiroz for a routine visit. She is a 73 yo female here for continued care and rehab after a hospitalization due to FTT, left knee fx., hyponatremia due to SIADH, and hypokalemia. While here, she has worked with rehab, and had follow up with ortho on 07/09/24, recommended to continue brace but allowed to weight bear. [employer] stable, Na 131. On exam, Trevon is in bed watching TV. Alert, in good spirits, feels well, denies any complaints including pain. No recent use of Ultram.No concerns per staff. PMH significant for SIADH,htn,anemia,copd ,osteoporosis,neuropa thy,mood disorder NOS MAYDA WHIPPLE NP [address] [facility], [address], [place], [address], [facility] [employer] 08/06/2024 14:14:56 08/13/2024 text/html Trevon is seen t richie [...] salmeron with walker and brace on. Radha Hickey NP [address] [facility], [address], [place], [address], [facility] [employer] 08/13/2024 09:27:25 OBGyn Episode No OBEpisode recorded.
--- OUTSIDE RECORDS SUMMARY | 2024-08-18 10:10 | XMS_ITS | Encounter Summary ---
Author Organization [facility] Address [address] [place] [address] Care Team Providers Care Electrifier Operator Name Role Phone Alan Chanel MD Primary Care Provider Encounter Details Date Type Department Care Team (Late st Contact Info) Description 04/22/2024 Lab Requisition [facility] Lab [address] [facility] [place] [address] Ever Reyna MD [address] [place] [address] Encounter for other general examination Social History [...] LAB CHEMISTRY METHOD 04/22/2024 11:[address] [facility] Potassium 3.6 3.5 - 5.5 mmol/L LAB CHEMISTRY METHOD 04/22/2024 11:[address] [facility] Chloride 91(L) 96 - 110 mmol/L LAB CHEMISTRY METHOD 04/22/2024 11:[address] [facility] CO2 26 21 - 32 mmol/L LAB CHEMISTRY METHOD 04/22/2024 11:08 AM [facility] Anion Gap 10 3 - 11 LAB CHEMISTRY METHOD 04/22/2024 11:08 AM [facility] Glucose 77 70 - 100 mg/dL LAB CHEMISTRY METHOD 04/22/2024 11:08 AM [facility] BUN 10 5 - 25 mg/dL LAB CHEMISTRY METHOD 04/22/2024 11:08 AM [facility] Creatinine 0.55(L) 0.70 - 1.30 mg/dL LAB CHEMISTRY METHOD 04/22/2024 11:08 AM [facility] eGFR 104 >=60 mL/min/1. 73m2 LAB CHEMISTRY METHOD 04/22/2024 11:08 AM [facility] Comment:Calculation based on the??Chronic Kidney Disease Epidemiology Collaboration (CKD-EPI) equation refit??without adjustment for race. BUN/Creatinine Ratio 18.2 LAB CHEMISTRY METHOD 04/22/2024 11:08 AM [facility] Calcium 8.8 8.5 - 10.5 mg/dL LAB CHEMISTRY METHOD 04/22/2024 11:08 AM [facility] Blood Venous blood specimen / Unknown Venipuncture / Unknown 04/22/2024 5:40 AM EST 04/22/2024 10:03 AM EST us Ever Reyna MD LAB BLOOD ORDERABLES Final Res ult [facility] [address] [place] [address], documented in this encounter Visit Diagnoses Diagnosis Encounter for other general examination documented in this encounter Care Teams Electrifier Operator Relationship Specialty Start Date End Date Alan Chanel MD [address] [place] [address] Reyna [address] [place] PCP - General Internal Medicine 03/12/24 documented as of this encounter
--- OUTSIDE RECORDS SUMMARY | 2024-08-18 10:10 | XMS_ITS | Encounter Summary ---
Author Organization [facility] Address [address] [place] [address] Care Team Providers Care Fabric Cutter Name Role Phone Alan Chanel MD Primary Care Provider Encounter Details Date Type Department Care Team (Late st Contact Info) Description 05/04/2024 Lab Requisition [facility] Lab [address] [place] [address] Kenny Malave MD [address] [facility] [address] [place], [address] Essential (primary) hypertension Social History Tobacco [...] LAB CHEMISTRY METHOD 05/05/2024 10:55 AM EST [facility] Potassium 3.8 3.5 - 5.5 mmol/L LAB CHEMISTRY METHOD 05/05/2024 10:55 AM EST [facility] Chloride 95(L) 96 - 110 mmol/L LAB CHEMISTRY METHOD 05/05/2024 10:55 AM [facility] CO2 29 21 - 32 mmol/L LAB CHEMISTRY METHOD 05/05/2024 10:55 AM [facility] Anion Gap 7 3 - 11 LAB CHEMISTRY METHOD 05/05/2024 10:55 AM [facility] Glucose 89 70 - 100 mg/dL LAB CHEMISTRY METHOD 05/05/2024 10:55 AM [facility] BUN 16 5 - 25 mg/dL LAB CHEMISTRY METHOD 05/05/2024 10:55 AM [facility] Creatinine 0.61 0.50 - 1.10 mg/dL LAB CHEMISTRY METHOD 05/05/2024 10:55 AM [facility] eGFR 94 >=60 mL/min/1. 73m2 LAB CHEMISTRY METHOD 05/05/2024 10:55 AM [facility] Comment:Calculation based on the??Chronic Kidney Disease Epidemiology Collaboration (CKD-EPI) equation refit??without adjustment for race. BUN/Creatinine Ratio 26.2 LAB CHEMISTRY METHOD 05/05/2024 10:55 AM [facility] Calcium 8.9 8.5 - 10.5 mg/dL LAB CHEMISTRY METHOD 05/05/2024 10:55 AM [facility] Blood Venous blood specimen / Unknown Venipuncture / Unknown 05/05/2024 6:32 AM EST 05/05/2024 10:13 AM EST us Kenny Malave MD LAB BLOOD ORDERABLES Final Resul t [facility] [address] [place] [address], * (ABNORMAL) Complete blood count (05/05/2024 6:32 AM EST) WBC 6.4 4.8 - 10.8 K/mcL LAB HEMETOLOGY METHOD 05/05/2024 10:59 AM [facility] RBC 3.90 3.80 - 4.80 M/mcL LAB HEMETOLOGY METHOD 05/05/2024 10:59 AM [facility] Hemoglobin 10.7(L) 11.5 - 16.0 g/dL LAB HEMETOLOGY METHOD 05/05/2024 10:59 AM [facility] Hematocrit 32.7(L) 35.0 - 47.0 % LAB HEMETOLOGY METHOD 05/05/2024 10:59 AM [facility] MCV 84.3 79.0 - 98.0 FL LAB HEMETOLOGY METHOD 05/05/2024 10:59 AM [facility] MCH 27.6 27.0 - 32.0 pcg LAB HEMETOLOGY METHOD 05/05/2024 10:59 AM [facility] MCHC 32.7 32.0 - 37.0 g/dL LAB HEMETOLOGY METHOD 05/05/2024 10:59 AM [facility] RDW 13.2 11.0 - 15.0 % LAB HEMETOLOGY METHOD 05/05/2024 10:59 AM [facility] Platelets 551(H) 130 - 400 K/mcL LAB HEMETOLOGY METHOD 05/05/2024 10:59 AM [facility] MPV 8.5 7.0 - 11.0 FL LAB HEMETOLOGY METHOD 05/05/2024 10:59 AM [facility] NRBC 0.0 <1.0 % LAB HEMETOLOGY METHOD 05/05/2024 10:59 AM [facility] NRBC Absolute 0.00 <0.10 K/mcL LAB HEMETOLOGY METHOD 05/05/2024 10:59 AM [facility] Blood Venous blood specimen / Unknown Venipuncture / Unknown 05/05/2024 6:32 AM EST 05/05/2024 10:14 AM EST us Kenny Malave MD LAB BLOOD ORDERABLES Final Resul t [facility] [address] [place] [address], documented in this encounter Visit Diagnoses Diagnosis Essential (primary) hypertension Unspecified essential hypertension documented in this encounter Care Teams Fabric Cutter Relationship Specialty Start Date End Date Alan Chanel MD [address] [place] [address] Dr [address] [place], [place] PCP - General Internal Medicine 03/12/24 documented as of this encounter
--- OUTSIDE RECORDS SUMMARY | 2024-08-18 10:10 | XMS_ITS | Encounter Summary ---
Author Organization [facility] Address [address] [place] [address] Care Team Providers Care Bus Info Consultant Name Role Phone Alan Chanel MD Primary Care Provider [phone] Encounter Details Date Type Department Care Team (Late st Contact Info) Description 07/20/2024 Lab Requisition [facility] Lab [address] [place] [address] Kenny Malave MD [address] [facility] [address] [place], [address] Essential (primary) hypertension Social History Tobacco [...] Associated Diagnosis Comments COMPLETE BLOOD COUNT Routine 07/20/2024 6:14 AM EDT Essential (primary) hypertension COMPREHENSIVE METABOLIC PANEL Routine 07/20/2024 6:14 AM EDT Essential (primary) hypertension documented in this encounter Results * (ABNORMAL) Comprehensive metabolic panel (07/20/2024 6:14 AM EDT) Sodium 129(L) 133 - 145 mmol/L LAB CHEMISTRY METHOD 07/20/2024 11:53 AM EDT [facility] Potassium 4.3 3.5 - 5.5 mmol/L LAB CHEMISTRY METHOD 07/20/2024 11:53 AM EDT [facility] Chloride 95(L) 96 - 110 mmol/L LAB CHEMISTRY METHOD 07/20/2024 11:53 AM [facility] CO2 25 21 - 32 mmol/L LAB CHEMISTRY METHOD 07/20/2024 11:53 AM [facility] Anion Gap 9 3 - 11 LAB CHEMISTRY METHOD 07/20/2024 11:53 AM [facility] Glucose 64(L) 70 - 100 mg/dL LAB CHEMISTRY METHOD 07/20/2024 11:53 AM [facility] BUN 19 5 - 25 mg/dL LAB CHEMISTRY METHOD 07/20/2024 11:53 AM [facility] Creatinine 0.61 0.50 - 1.10 mg/dL LAB CHEMISTRY METHOD 07/20/2024 11:53 AM [facility] eGFR 94 >=60 mL/min/1. 73m2 LAB CHEMISTRY METHOD 07/20/2024 11:53 AM [facility] Comment:Calculation based on the??Chronic Kidney Disease Epidemiology Collaboration (CKD-EPI) equation refit??without adjustment for race. BUN/Creatinine Ratio 31.1 LAB CHEMISTRY METHOD 07/20/2024 11:53 AM [facility] Calcium 9.4 8.5 - 10.5 mg/dL LAB CHEMISTRY METHOD 07/20/2024 11:53 AM [facility] AST (SGOT) 22 10 - 42 unit/L LAB CHEMISTRY METHOD 07/20/2024 11:53 AM [facility] ALT (SGPT) 18 10 - 60 unit/L LAB CHEMISTRY METHOD 07/20/2024 11:53 AM [facility] Alkaline Phosphatase 80 42 - 121 unit/L LAB CHEMISTRY METHOD 07/20/2024 11:53 AM [facility] Total Protein 7.2 6.0 - 8.0 g/dL LAB CHEMISTRY METHOD 07/20/2024 11:53 AM [facility] Albumin 3.7 3.2 - 5.0 g/dL LAB CHEMISTRY METHOD 07/20/2024 11:53 AM [facility] Total Bilirubin 0.3 0.0 - 1.4 mg/dL LAB CHEMISTRY METHOD 07/20/2024 11:53 AM [facility] Blood Venous blood specimen / Unknown Venipuncture / Unknown 07/20/2024 6:14 AM EDT 07/20/2024 10:31 AM EDT us Kenny Malave MD LAB BLOOD ORDERABLES Final Resul t [facility] [address] [place] [address], [place] [phone] * (ABNORMAL) Complete blood count (07/20/2024 6:14 AM EDT) WBC 5.3 4.8 - 10.8 K/mcL LAB HEMETOLOGY METHOD 07/20/2024 11:31 AM [facility] RBC 3.70(L) 3.80 - 4.80 M/mcL LAB HEMETOLOGY METHOD 07/20/2024 11:31 AM [facility] Hemoglobin 10.7(L) 11.5 - 16.0 g/dL LAB HEMETOLOGY METHOD 07/20/2024 11:31 AM [facility] Hematocrit 32.1(L) 35.0 - 47.0 % LAB HEMETOLOGY METHOD 07/20/2024 11:31 AM [facility] MCV 85.8 79.0 - 98.0 FL LAB HEMETOLOGY METHOD 07/20/2024 11:31 AM [facility] MCH 28.6 27.0 - 32.0 pcg LAB HEMETOLOGY METHOD 07/20/2024 11:31 AM [facility] MCHC 33.3 32.0 - 37.0 g/dL LAB HEMETOLOGY METHOD 07/20/2024 11:31 AM EDT [facility] RDW 17.0(H) 11.0 - 15.0 % LAB HEMETOLOGY METHOD 07/20/2024 11:31 AM EDT [facility] Platelets 479(H) 130 - 400 K/mcL LAB HEMETOLOGY METHOD 07/20/2024 11:31 AM EDT [facility] MPV 8.2 7.0 - 11.0 FL LAB HEMETOLOGY METHOD 07/20/2024 11:31 AM EDT [facility] NRBC 0.0 <1.0 % LAB HEMETOLOGY METHOD 07/20/2024 11:31 AM EDT [facility] NRBC Absolute 0.00 <0.10 K/mcL LAB HEMETOLOGY METHOD 07/20/2024 11:31 AM EDT [facility] Blood Venous blood specimen / Unknown Venipuncture / Unknown 07/20/2024 6:14 AM EDT 07/20/2024 10:31 AM EDT us Kenny Malave MD LAB BLOOD ORDERABLES Final Resul t [facility] [address] [place] [address], documented in this encounter Visit Diagnoses Diagnosis Essential (primary) hypertension Unspecified essential hypertension documented in this encounter Care Teams Bus Info Consultant Relationship Specialty Start Date End Date Alan Chanel MD [address] [place] [address] Dr [facility] MAGEN Kruger PCP - General Internal Medicine 03/12/24 documented as of this encounter
--- OUTSIDE RECORDS SUMMARY | 2024-08-18 10:10 | XMS_ITS | Encounter Summary ---
Author Organization [facility] Address [address] [place] [address] Care Team Providers Care Slicing Machine Operator Name Role Phone Alan Chanel MD Primary Care Provider Encounter Details Date Type Department Care Team (Late st Contact Info) Description 04/14/2024 Lab Requisition [facility] - Main Lab [address] [facility] [place] [address] Ever Reyna MD [address] [place] [id number] Encounter for other general examination Social History [...] LAB CHEMISTRY METHOD 04/14/2024 10:46 AM EST [facility] Urine Urine specimen obtained by clean catch procedure / Unknown Non-blood Collection / Unknown 04/14/2024 3:12 AM EST 04/14/2024 9:00 AM EST us Ever Reyna MD LAB URINE ORDERABLES Final Res ult Performing Organization Address City/[facility]/ZIP Co de Phone Number [facility] [address] [place] [address], [place] [phone] * (ABNORMAL) Osmolality, urine (04/14/2024 3:12 AM EST) Osmolality, Urine 258(L) 300 - 1,300 mOsm/kg LAB CHEMISTRY METHOD 04/14/2024 11:[address] [facility] Urine Urine specimen obtained by clean catch procedure / Unknown Non-blood Collection / Unknown 04/14/2024 3:12 AM EST 04/14/2024 9:00 AM EST us Ever Reyna MD LAB URINE ORDERABLES Final Res ult Performing Organization Address [facility] Co de Phone Number [facility] [address] [place] [address], [place] [phone] documented in this encounter Visit Diagnoses Diagnosis Encounter for other general examination documented in this encounter Care Teams Slicing Machine Operator Relationship Specialty Start Date End Date Alan Chanel MD [address] [place] [address] Dr Orell[address] [place] PCP - General Internal Medicine 03/12/24 documented as of this encounter
--- OUTSIDE RECORDS SUMMARY | 2024-08-18 10:10 | XMS_ITS | Encounter Summary ---
Author Organization [facility] Address [address] [place] [address] Care Team Providers Care Test Hole Driller Name Role Phone Alan Chanel MD Primary Care Provider Encounter Details Date Type Department Care Team (Late st Contact Info) Description 07/14/2024 Lab Requisition [facility] Lab [address] [place] [address] Kenny Malave MD [address] [facility] [address] [place], [address] Chronic kidney disease, unspecified Social History Tobacco Use Types Packs/Day Years [...] Associated Diagnosis Comments COMPLETE BLOOD COUNT Routine 07/15/2024 6:23 AM EDT Chronic kidney disease, unspecified COMPREHENSIVE METABOLIC PANEL Routine 07/15/2024 6:23 AM EDT Chronic kidney disease, unspecified documented in this encounter Results * (ABNORMAL) Comprehensive metabolic panel (07/15/2024 6:23 AM EDT) Sodium 131(L) 133 - 145 mmol/L LAB CHEMISTRY METHOD 07/15/2024 10:42 AM EDT [facility] Potassium 4.6 3.5 - 5.5 mmol/L LAB CHEMISTRY METHOD 07/15/2024 10:42 AM EDT [facility] Chloride 96 96 - 110 mmol/L LAB CHEMISTRY METHOD 07/15/2024 10:42 AM [facility] CO2 24 21 - 32 mmol/L LAB CHEMISTRY METHOD 07/15/2024 10:42 AM [facility] Anion Gap 11 3 - 11 LAB CHEMISTRY METHOD 07/15/2024 10:42 AM [facility] Glucose 76 70 - 100 mg/dL LAB CHEMISTRY METHOD 07/15/2024 10:42 AM [facility] BUN 20 5 - 25 mg/dL LAB CHEMISTRY METHOD 07/15/2024 10:42 AM [facility] Creatinine 0.71 0.50 - 1.10 mg/dL LAB CHEMISTRY METHOD 07/15/2024 10:42 AM [facility] LAB eGFR 89 >=60 mL/min/1. 73m2 LAB CHEMISTRY METHOD 07/15/2024 10:42 AM [facility] Comment:Calculation based on the??Chronic Kidney Disease Epidemiology Collaboration (CKD-EPI) equation refit??without adjustment for race. BUN/Creatinine Ratio 28.2 LAB CHEMISTRY METHOD 07/15/2024 10:42 AM [facility] Calcium 9.5 8.5 - 10.5 mg/dL LAB CHEMISTRY METHOD 07/15/2024 10:42 AM [facility] AST (SGOT) 27 10 - 42 unit/L LAB CHEMISTRY METHOD 07/15/2024 10:42 AM [facility] ALT (SGPT) 22 10 - 60 unit/L LAB CHEMISTRY METHOD 07/15/2024 10:42 AM [facility] Alkaline Phosphatase 72 42 - 121 unit/L LAB CHEMISTRY METHOD 07/15/2024 10:42 AM [facility] Total Protein 7.4 6.0 - 8.0 g/dL LAB CHEMISTRY METHOD 07/15/2024 10:42 AM [facility] Albumin 3.7 3.2 - 5.0 g/dL LAB CHEMISTRY METHOD 07/15/2024 10:42 AM EDT [facility] Total Bilirubin 0.3 0.0 - 1.4 mg/dL LAB CHEMISTRY METHOD 07/15/2024 10:42 AM EDT [facility] Blood Venous blood specimen / Unknown Venipuncture / Unknown 07/15/2024 6:23 AM EDT 07/15/2024 9:55 AM EDT us Kenny Malave MD LAB BLOOD ORDERABLES Final Resul t [facility] [address] [place] [address], [place] [phone] * (ABNORMAL) Complete blood count (07/15/2024 6:23 AM EDT) WBC 4.5(L) 4.8 - 10.8 K/mcL LAB HEMETOLOGY METHOD 07/15/2024 10:17 AM [facility] RBC 3.80 3.80 - 4.80 M/mcL LAB HEMETOLOGY METHOD 07/15/2024 10:17 AM [facility] Hemoglobin 10.8(L) 11.5 - 16.0 g/dL LAB HEMETOLOGY METHOD 07/15/2024 10:17 AM [facility] Hematocrit 32.2(L) 35.0 - 47.0 % LAB HEMETOLOGY METHOD 07/15/2024 10:17 AM [facility] MCV 85.0 79.0 - 98.0 FL LAB HEMETOLOGY METHOD 07/15/2024 10:17 AM [facility] MCH 28.5 27.0 - 32.0 pcg LAB HEMETOLOGY METHOD 07/15/2024 10:17 AM [facility] MCHC 33.5 32.0 - 37.0 g/dL LAB HEMETOLOGY METHOD 07/15/2024 10:17 AM EDT [facility] RDW 17.1(H) 11.0 - 15.0 % LAB HEMETOLOGY METHOD 07/15/2024 10:17 AM EDT [facility] Platelets 516(H) 130 - 400 K/mcL LAB HEMETOLOGY METHOD 07/15/2024 10:17 AM EDT [facility] MPV 8.2 7.0 - 11.0 FL LAB HEMETOLOGY METHOD 07/15/2024 10:17 AM EDT [facility] NRBC 0.0 <1.0 % LAB HEMETOLOGY METHOD 07/15/2024 10:17 AM EDT [facility] NRBC Absolute 0.00 <0.10 K/mcL LAB HEMETOLOGY METHOD 07/15/2024 10:17 AM EDT [facility] Blood Venous blood specimen / Unknown Venipuncture / Unknown 07/15/2024 6:23 AM EDT 07/15/2024 9:55 AM EDT us Kenny Malave MD LAB BLOOD ORDERABLES Final Resul t [facility] [address] [place] [address], documented in this encounter Visit Diagnoses Diagnosis Chronic kidney disease, unspecified documented in this encounter Care Teams Test Hole Driller Relationship Specialty Start Date End Date Alan Chanel MD [address] [facility] [address] Orellana [facility] MAGEN Kruger PCP - General Internal Medicine 03/12/24 documented as of this encounter
--- OUTSIDE RECORDS SUMMARY | 2024-08-18 10:10 | XMS_ITS | Clinical Summary ---
Author Organization [address] [facility] Address [address] [place] [address] Phone Care Team Providers Care Shell Trim Tool Setter Name Role Phone Alan Chanel MD Primary Care Provider [phone] Allergies No known active allergies Medications albuterol [...] hypercholesterolemia 04/14/2024 Anemia 04/14/2024 COPD (chronic obstructive pu lmonary disease) ([facility] V24, [facility] V28) 04/14/2024 Benign essential hypertension 04/14/2024 Lumbar degenerative disc disease 04/14/2024 Encounters Date Type Department Care Team Description 08/15/2024 Lab Requisition [facility] - Main Lab [address] [place] [address] Kenny Malave MD Essential (primary) hypertension 08/09/2024 Lab Requisition [facility] Main Lab [address] [place] [address] Kenny Malave MD Essential (primary) hypertension 08/01/2024 Lab Requisition [facility] Main Lab [address] [place] [address] Kenny Malave MD Essential (primary) hypertension 07/25/2024 Lab Requisition [facility] - Main Lab [address] [place] [address] Kenny Malave MD Essential (primary) hypertension 07/20/2024 Lab Requisition [facility] Main Lab [address] [place] [address] Kenny Malave MD Essential (primary) hypertension 07/14/2024 Lab Requisition [facility] Main Lab [address] [place] [address] Kenny Malave MD Chronic kidney disease, unspecified 07/13/2024 Lab Requisition [facility] Main Lab [address] [place] [address] Kenny Malave MD Anemia, unspecified; Chronic obstructive pulmonary disease, unspecified ([facility] V24, [facility] V28) 07/08/2024 Lab Requisition [facility] Lab [address] [place] [address] Kenny Malave MD Anemia, unspecified; Chronic obstructive pulmonary disease, unspecified ([facility] [place], [facility] V28) 06/08/2024 Lab Requisition [facility] Lab [address] [place] [phone] Kenny Malave MD Chronic obstructive pulmonary disease, unspecified ([facility] [place]24, [facility] V28) 06/04/2024 Lab Requisition [facility] Lab [address] [place] [phone] Kenny Malave MD Other intermission coordinator (current) drug therapy 05/28/2024 Lab Requisition [facility] Lab [address] [place] [phone] Kenny Malave MD Polyneuropathy, unspecified; Unspecified protein-calorie malnutrition ([facility] V24); Chronic obstructive pulmonary disease, unspecified ([facility] V24, [facility] V28) from Last 3 Months Social History Tobacco Use Types Packs/Day Years Used Date Smoking Tobacco: Never Assessed Comments Unknown Sex and Gender Information Value Date Recorded Sex Assigned at Not on file Legal Sex Female 12:48 PM EST Gender Identity Not on file Sexual Orientation Not on file Plan of Treatment Health Maintenance Due Date Last Done Comments DTaP,Tdap,and Td Vaccines (1 - Tdap) 1969 Pneumococcal Vaccine: 50+ Years (1 of 2 - PCV) 1968 Zoster Vaccines (1 of 2) 08/15/1999 COVID-19 Vaccine (1 - 2023- season) 2024 Cholesterol Screening (Lipid Panel) 02/28/2024 Colorectal Cancer Screening: Colonoscopy 02/28/2024 Depression Screening 02/28/2024 Falls Risk Assessment 02/28/2024 Hepatitis C Screening 02/28/2024 Medicare Annual Wellness Visit 02/28/2024 Osteoporosis Screening (Bone Density Screening) 02/28/2024 Social Influencers of Health Screening 02/28/2024 RSV Immunization Adult Patients (1 - 1-dose 75+ series) 2024 Influenza Vaccine (Season Ended) 2025 Hypertension/CHF/CAD Annual BMP Blood Test 08/17/2025 08/17/2024, 08/10/2024, 08/03/2024, Additional history exists HIB Vaccines Aged Out [...] age to complete this topic Meningococcal B Vaccine Aged Out No l onger eligible based on patient's age to complete this topic RSV Immunization Patients Under 20 months Aged Out No longer eligible based on patient's age to complete this topic Varicella Vaccines Aged Out No longer eligible based on patient's age to complete this topic Procedures Procedure Name Priority Date/Time Associated Diagnosis Comments COMPREHENSIVE METABOLIC PANEL Routine 08/17/2024 5:38 AM EDT Essential (primary) hypertension COMPLETE BLOOD COUNT Routine 08/17/2024 5:38 AM EDT Essential (primary) hypertension COMPREHENSIVE METABOLIC PANEL Routine 08/10/2024 6:24 AM EDT Essential (primary) hypertension COMPLETE BLOOD COUNT Routine 08/10/2024 6:24 AM EDT Essential (primary) hypertension COMPREHENSIVE METABOLIC PANEL Routine 08/03/2024 5:38 AM EDT Essential (primary) hypertension COMPLETE BLOOD COUNT Routine 08/03/2024 5:38 AM EDT Essential (primary) hypertension COMPREHENSIVE METABOLIC PANEL Routine 07/27/2024 6:21 AM EDT Essential (primary) hypertension COMPLETE BLOOD COUNT Routine 07/27/2024 6:21 AM EDT Essential (primary) hypertension COMPREHENSIVE METABOLIC PANEL Routine 07/20/2024 6:14 AM EDT Essential (primary) hypertension COMPLETE BLOOD COUNT Routine 07/20/2024 6:14 AM EDT Essential (primary) hypertension COMPREHENSIVE METABOLIC PANEL Routine 07/15/2024 6:23 AM EDT Chronic kidney disease, unspecified COMPLETE BLOOD COUNT Routine 07/15/2024 6:23 AM EDT Chronic kidney disease, unspecified PHOSPHORUS Routine 07/14/2024 5:07 AM EDT Anemia, unspecified Chronic obstructive pulmonary disease, unspecified (CMS/HCC) COMPREHENSIVE METABOLIC PANEL Routine 07/14/2024 5:07 AM EDT Anemia, unspecified Chronic obstructive pulmonary disease, unspecified (CMS/HCC) COMPLETE BLOOD COUNT Routine 07/14/2024 5:07 AM [...] PANEL Routine 06/04/2024 5:36 AM EST Other intermission coordinator (current) drug therapy BASIC METABOLIC PANEL Routine 05/28/2024 6:03 AM EST Polyneuropathy, unspecified Unspecified protein-calorie malnutrition (CMS/HCC) Chronic obstructive pulmonary disease, unspecified (CMS/HCC) from Last 3 Months Results * (ABNORMAL) Complete blood count (08/17/2024 5:38 AM EDT) Only the most recent of9 resultswithin the time period is included. WBC 4.8 4.8 - 10.8 K/mcL LAB HEMETOLOGY METHOD 08/17/2024 11:44 AM [facility] RBC 3.70(L) 3.80 - 4.80 M/mcL LAB HEMETOLOGY METHOD 08/17/2024 11:44 AM [facility] Hemoglobin 10.3(L) 11.5 - 16.0 g/dL LAB HEMETOLOGY METHOD 08/17/2024 11:44 AM [facility] Hematocrit 31.4(L) 35.0 - 47.0 % LAB HEMETOLOGY METHOD 08/17/2024 11:44 AM [facility] MCV 85.8 79.0 - 98.0 FL LAB HEMETOLOGY METHOD 08/17/2024 11:44 AM [facility] MCH 28.1 27.0 - 32.0 pcg LAB HEMETOLOGY METHOD 08/17/2024 11:44 AM [facility] MCHC 32.8 32.0 - 37.0 g/dL LAB HEMETOLOGY METHOD 08/17/2024 11:44 AM [facility] RDW 14.2 11.0 - 15.0 % LAB HEMETOLOGY METHOD 08/17/2024 11:44 AM EDT [facility] Platelets 402(H) 130 - 400 K/mcL LAB HEMETOLOGY METHOD 08/17/2024 11:44 AM EDT [facility] MPV 8.5 7.0 - 11.0 FL LAB HEMETOLOGY METHOD 08/17/2024 11:44 AM EDT [facility] NRBC 0.0 <1.0 % LAB HEMETOLOGY METHOD 08/17/2024 11:44 AM EDT [facility] NRBC Absolute 0.00 <0.10 K/mcL LAB HEMETOLOGY METHOD 08/17/2024 11:44 AM EDT [facility] Blood Venous blood specimen / Unknown Venipuncture / Unknown 08/17/2024 5:38 AM EDT 08/17/2024 10:35 AM EDT us Kenny Malave MD LAB BLOOD ORDERABLES Final Resul t [facility] [address] [place] [address], [place] [phone] * (ABNORMAL) Comprehensive metabolic panel (08/17/2024 5:38 AM EDT) Only the most recent of8 resultswithin the time period is included. Sodium 128(L) 133 - 145 mmol/L LAB CHEMISTRY METHOD 08/17/2024 12:06 PM [facility] Potassium 4.8 3.5 - 5.5 mmol/L LAB CHEMISTRY METHOD 08/17/2024 12:06 PM [facility] Chloride 95(L) 96 - 110 mmol/L LAB CHEMISTRY METHOD 08/17/2024 12:06 PM [facility] CO2 28 21 - 32 mmol/L LAB CHEMISTRY METHOD 08/17/2024 12:06 PM [facility] Anion Gap 5 3 - 11 LAB CHEMISTRY METHOD 08/17/2024 12:06 PM [facility] Glucose 76 70 - 100 mg/dL LAB CHEMISTRY METHOD 08/17/2024 12:06 PM [facility] BUN 21 5 - 25 mg/dL LAB CHEMISTRY METHOD 08/17/2024 12:06 PM [facility] Creatinine 0.67 0.50 - 1.10 mg/dL LAB CHEMISTRY METHOD 08/17/2024 12:06 PM [facility] eGFR 91 >=60 mL/min/1. 73m2 LAB CHEMISTRY METHOD 08/17/2024 12:06 PM [facility] Comment:Calculation based on the??Chronic Kidney Disease Epidemiology Collaboration (CKD-EPI) equation refit??without adjustment for race. BUN/Creatinine Ratio 31.3 LAB CHEMISTRY METHOD 08/17/2024 12:06 PM [facility] Calcium 9.8 8.5 - 10.5 mg/dL LAB CHEMISTRY METHOD 08/17/2024 12:06 PM [facility] AST (SGOT) 28 10 - 42 unit/L LAB CHEMISTRY METHOD 08/17/2024 12:06 PM [facility] ALT (SGPT) 21 10 - 60 unit/L LAB CHEMISTRY METHOD 08/17/2024 12:06 PM [facility] Alkaline Phosphatase 80 42 - 121 unit/L LAB CHEMISTRY METHOD 08/17/2024 12:06 PM [facility] Total Protein 7.2 6.0 - 8.0 g/dL LAB CHEMISTRY METHOD 08/17/2024 12:06 PM [facility] Albumin 3.5 3.2 - 5.0 g/dL LAB CHEMISTRY METHOD 08/17/2024 12:06 PM [facility] Total Bilirubin 0.2 0.0 - 1.4 mg/dL LAB CHEMISTRY METHOD 08/17/2024 12:06 PM [facility] Blood Venous blood specimen / Unknown Venipuncture / Unknown 08/17/2024 5:38 AM EDT 08/17/2024 10:35 AM EDT us Kenny Malave MD LAB BLOOD ORDERABLES Final Resul t Performing Organization Address [facility]/ZIP Co de Phone Number [facility] [address] [place] [address], [place] [phone] * Phosphorus (07/14/2024 5:07 AM EDT) Only the most recent of2 resultswithin the time period is included. Phosphorus 4.3 2.5 - 4.5 mg/dL LAB CHEMISTRY METHOD 07/14/2024 9:15 AM EDT [facility] Blood Venous blood specimen / Unknown Venipuncture / Unknown 07/14/2024 5:07 AM EDT 07/14/2024 7:45 AM EDT us Kenny Malave MD LAB BLOOD ORDERABLES Final Resul t Performing Organization Address [facility]/ZIP Co de Phone Number [facility] [address] [place] [address], [place] [phone] * Basic metabolic panel (06/08/2024 7:16 AM EST) Only the most recent of3 resultswithin the time period is included. Sodium 136 133 - 145 mmol/L LAB CHEMISTRY METHOD 06/08/2024 11:51 AM EST [facility] Potassium 5.0 3.5 - 5.5 mmol/L LAB CHEMISTRY METHOD 06/08/2024 11:51 AM EST [facility] Comment:Results verified by repeat testing Chloride 102 96 - 110 mmol/L LAB CHEMISTRY METHOD 06/08/2024 11:51 AM EST [facility] CO2 26 21 - 32 mmol/L LAB CHEMISTRY METHOD 06/08/2024 11:51 AM EST [facility] Anion Gap 8 3 - 11 LAB CHEMISTRY METHOD 06/08/2024 11:51 AM EST [facility] Glucose 78 70 - 100 mg/dL LAB CHEMISTRY METHOD 06/08/2024 11:51 AM [facility] BUN 17 5 - 25 mg/dL LAB CHEMISTRY METHOD 06/08/2024 11:51 AM [facility] Creatinine 0.53 0.50 - 1.10 mg/dL LAB CHEMISTRY METHOD 06/08/2024 11:51 AM [facility] eGFR 97 >=60 mL/min/1. 73m2 LAB CHEMISTRY METHOD 06/08/2024 11:51 AM [facility] Comment:Calculation based on the??Chronic Kidney Disease Epidemiology Collaboration (CKD-EPI) equation refit??without adjustment for race. BUN/Creatinine Ratio 32.1 LAB CHEMISTRY METHOD 06/08/2024 11:51 AM [facility] Calcium 9.6 8.5 - 10.5 mg/dL LAB CHEMISTRY METHOD 06/08/2024 11:51 AM [facility] Blood Venous blood specimen / Unknown Venipuncture / Unknown 06/08/2024 7:16 AM EST 06/08/2024 9:26 AM EST us Kenny Malave MD LAB BLOOD ORDERABLES Final Resul t [facility] [address] [place] [address], from Last 3 Months Insurance MEDICARE [place]ICAID - [place] Care Teams Shell Trim Tool Setter Relationship Specialty Start Date End Date Alan Chanel MD [address] [place] [address] Reyna [address] [place], [place] PCP - General Internal Medicine 03/12/24
--- OUTSIDE RECORDS SUMMARY | 2024-08-18 10:10 | XMS_ITS | Encounter Summary ---
Author Organization [facility] Address [address] [place] [address] Care Team Providers Care Bank Worker Name Role Phone Alan Chanel MD Primary Care Provider Encounter Details Date Type Department Care Team (Late st Contact Info) Description 04/15/2024 Lab Requisition [facility] - Main Lab [address] [facility] [employer] [place] [address] Ever Reyna MD [address] [place] [phone] Encounter for other general examination Social History [...] mmol/L LAB CHEMISTRY METHOD 04/15/2024 11:04 AM [facility] Anion Gap 9 3 - 11 LAB CHEMISTRY METHOD 04/15/2024 11:04 AM [facility] Glucose 78 70 - 100 mg/dL LAB CHEMISTRY METHOD 04/15/2024 11:04 AM [facility] BUN 11 5 - 25 mg/dL LAB CHEMISTRY METHOD 04/15/2024 11:04 AM [facility] Creatinine 0.84 0.70 - 1.30 mg/dL LAB CHEMISTRY METHOD 04/15/2024 11:04 AM [facility] eGFR 92 >=60 mL/min/1. 73m2 LAB CHEMISTRY METHOD 04/15/2024 11:04 AM [facility] Comment:Calculation based on the??Chronic Kidney Disease Epidemiology Collaboration (CKD-EPI) equation refit??without adjustment for race. BUN/Creatinine Ratio 13.1 LAB CHEMISTRY METHOD 04/15/2024 11:04 AM [facility] Calcium 9.3 8.5 - 10.5 mg/dL LAB CHEMISTRY METHOD 04/15/2024 11:04 AM [facility] Blood Venous blood specimen / Unknown Venipuncture / Unknown 04/15/2024 6:06 AM EST 04/15/2024 9:57 AM EST us Ever Reyna MD LAB BLOOD ORDERABLES Final Res ult [facility] [address] [place] [address], [place] [phone] documented in this encounter Visit Diagnoses Diagnosis Encounter for other general examination documented in this encounter Care Teams Bank Worker Relationship Specialty Start Date End Date Alan Chanel MD [address] [place] [address] Reyna [address] [place] PCP - General Internal Medicine 03/12/24 documented as of this encounter
--- OUTSIDE RECORDS SUMMARY | 2024-08-18 10:10 | XMS_ITS | Encounter Summary ---
Author Organization [facility] Address [address] [place] [address] Care Team Providers Care Monotypist Name Role Phone Alan Chanel MD Primary Care Provider [phone] Encounter Details Date Type Department Care Team (Late st Contact Info) Description 07/08/2024 Lab Requisition [facility] - Main Lab [address] [place] [address] Kenny Malave MD 38 [facility] [address] [place], [address] Anemia, unspecified; Chronic obstructive pulmonary disease, [...] mg/dL LAB CHEMISTRY METHOD 07/08/2024 2:39 PM [facility] Blood Venous blood specimen / Unknown Venipuncture / Unknown 07/08/2024 6:23 AM EST 07/08/2024 10:53 AM EST us Kenny Malave MD LAB BLOOD ORDERABLES Final Resul t [facility] [address] [place] [address], [place] [phone] * (ABNORMAL) Comprehensive metabolic panel (07/08/2024 6:23 AM EST) [facility] Sodium 132(L) 133 - 145 mmol/L LAB CHEMISTRY METHOD 07/08/2024 2:39 PM [facility] Potassium 4.7 3.5 - 5.5 mmol/L LAB CHEMISTRY METHOD 07/08/2024 2:39 PM [facility] Chloride 98 96 - 110 mmol/L LAB CHEMISTRY METHOD 07/08/2024 2:39 PM [facility] CO2 23 21 - 32 mmol/L LAB CHEMISTRY METHOD 07/08/2024 2:39 PM [facility] Anion Gap 11 3 - 11 LAB CHEMISTRY METHOD 07/08/2024 2:39 PM [facility] Glucose 72 70 - 100 mg/dL LAB CHEMISTRY METHOD 07/08/2024 2:39 PM [facility] BUN 16 5 - 25 mg/dL LAB CHEMISTRY METHOD 07/08/2024 2:39 PM [facility] Creatinine 0.61 0.50 - 1.10 mg/dL LAB CHEMISTRY METHOD 07/08/2024 2:39 PM [facility] eGFR 94 >=60 mL/min/1. 73m2 LAB CHEMISTRY METHOD 07/08/2024 2:39 PM [facility] Comment:Calculation based on the??Chronic Kidney Disease Epidemiology Collaboration (CKD-EPI) equation refit??without adjustment for race. BUN/Creatinine Ratio 26.2 LAB CHEMISTRY METHOD 07/08/2024 2:39 PM [facility] Calcium 9.5 8.5 - 10.5 mg/dL LAB CHEMISTRY METHOD 07/08/2024 2:39 PM [facility] AST (SGOT) 28 10 - 42 unit/L LAB CHEMISTRY METHOD 07/08/2024 2:39 PM [facility] ALT (SGPT) 22 10 - 60 unit/L LAB CHEMISTRY METHOD 07/08/2024 2:39 PM [facility] Alkaline Phosphatase 79 42 - 121 unit/L LAB CHEMISTRY METHOD 07/08/2024 2:39 PM [facility] Total Protein 7.2 6.0 - 8.0 g/dL LAB CHEMISTRY METHOD 07/08/2024 2:39 PM [facility] Albumin 3.5 3.2 - 5.0 g/dL LAB CHEMISTRY METHOD 07/08/2024 2:39 PM [facility] Total Bilirubin 0.2 0.0 - 1.4 mg/dL LAB CHEMISTRY METHOD 07/08/2024 2:39 PM [facility] Blood Venous blood specimen / Unknown Venipuncture / Unknown 07/08/2024 6:23 AM EST 07/08/2024 10:53 AM EST us Kenny Malave MD LAB BLOOD ORDERABLES Final Resul t [facility] [address] [place] [address], * (ABNORMAL) Complete blood count (07/08/2024 6:23 AM EST) WBC 6.5 4.8 - 10.8 K/mcL LAB HEMETOLOGY METHOD 07/08/2024 11:24 AM [facility] RBC 3.90 3.80 - 4.80 M/mcL LAB HEMETOLOGY METHOD 07/08/2024 11:24 AM [facility] Hemoglobin 11.1(L) 11.5 - 16.0 g/dL LAB HEMETOLOGY METHOD 07/08/2024 11:24 AM [facility] Hematocrit 33.8(L) 35.0 - 47.0 % LAB HEMETOLOGY METHOD 07/08/2024 11:24 AM [facility] MCV 86.7 79.0 - 98.0 FL LAB HEMETOLOGY METHOD 07/08/2024 11:24 AM [facility] MCH 28.5 27.0 - 32.0 pcg LAB HEMETOLOGY METHOD 07/08/2024 11:24 AM [facility] MCHC 32.8 32.0 - 37.0 g/dL LAB HEMETOLOGY METHOD 07/08/2024 11:24 AM [facility] RDW 17.4(H) 11.0 - 15.0 % LAB HEMETOLOGY METHOD 07/08/2024 11:24 AM [facility] Platelets 500(H) 130 - 400 K/mcL LAB HEMETOLOGY METHOD 07/08/2024 11:24 AM [facility] MPV 8.2 7.0 - 11.0 FL LAB HEMETOLOGY METHOD 07/08/2024 11:24 AM [facility] NRBC 0.0 <1.0 % LAB HEMETOLOGY METHOD 07/08/2024 11:24 AM [facility] NRBC Absolute 0.00 <0.10 K/mcL LAB HEMETOLOGY METHOD 07/08/2024 11:24 AM [facility] Blood Venous blood specimen / Unknown Venipuncture / Unknown 07/08/2024 6:23 AM EST 07/08/2024 10:53 AM EST us Kenny Malave MD LAB BLOOD ORDERABLES Final Resul t [facility] [address] [place] [address], [place] [phone] documented in this encounter Visit Diagnoses Diagnosis Anemia, unspecified Chronic obstructive pulmonary disease, unspecified (CMS/HCC V24, CMS/HCC V28) documented in this encounter Care Teams Monotypist Relationship Specialty Start Date End Date Alan Chanel MD [address] [place] [address] Dr [address] [place] PCP - General Internal Medicine 03/12/24 documented as of this encounter
--- OUTSIDE RECORDS SUMMARY | 2024-08-18 10:10 | XMS_ITS | Encounter Summary ---
Author Organization [facility] Address [address] [place] [address] Care Team Providers Care Allergy And Immunology Chief Name Role Phone Alan Chanel MD Primary Care Provider [phone] Encounter Details Date Type Department Care Team (Late st Contact Info) Description 04/17/2024 Lab Requisition [facility] Lab [address] [place] [address] Ever Reyna MD [address] [place] [address] Encounter for other general examination Social History [...] AM EST) WBC 4.4(L) 4.8 - 10.8 K/[facility] LAB HEMETOLOGY METHOD 04/17/2024 11:22 AM EST [facility] RBC 4.20(L) 4.50 - 5.50 M/[facility] LAB HEMETOLOGY METHOD 04/17/2024 11:22 AM EST [facility] Hemoglobin 11.8(L) 13.5 - 17.5 [...] MD LAB BLOOD ORDERABLES Final Res ult [facility] [address] [place] [address], * (ABNORMAL) Comprehensive metabolic panel (04/17/2024 6:06 [...] unit/L LAB CHEMISTRY METHOD 04/17/2024 12:19 PM EST [facility] ALT (SGPT) 71(H) 10 - [...] MD LAB BLOOD ORDERABLES Final Res ult [facility] [address] [place] [address], documented in this encounter Visit Diagnoses Diagnosis Encounter for other general examination documented in this encounter Care Teams Allergy And Immunology Chief Relationship Specialty Start Date End Date Alan Chanel MD [address] [place] [address] Dr [address] [place] PCP - General Internal Medicine 03/12/24 documented as of this encounter
--- OUTSIDE RECORDS SUMMARY | 2024-08-18 10:10 | XMS_ITS | Encounter Summary ---
Author Organization [facility] Address [address] [place] [address] Care Team Providers Care Airborne And Air Delivery Specialist Name Role Phone Alan Chanel MD Primary Care Provider Encounter Details Date Type Department Care Team (Late st Contact Info) Description 05/28/2024 Lab Requisition [facility] [address] [place] [address] Kenny Malave MD 38 [facility] [address] [place], [address] Polyneuropathy, unspecified; Unspecified protein-calorie malnutrition (CMS/HCC V24); Chronic obstructive pulmonary disease, unspecified (CMS/HCC V24, [...] LAB CHEMISTRY METHOD 05/28/2024 9:40 AM EST [facility] Potassium 3.3(L) 3.5 - 5.5 mmol/L LAB CHEMISTRY METHOD 05/28/2024 9:40 AM [facility] Chloride 103 96 - 110 mmol/L LAB CHEMISTRY METHOD 05/28/2024 9:40 AM [facility] CO2 27 21 - 32 mmol/L LAB CHEMISTRY METHOD 05/28/2024 9:40 AM [facility] Anion Gap 5 3 - 11 LAB CHEMISTRY METHOD 05/28/2024 9:40 AM [facility] Glucose 84 70 - 100 mg/dL LAB CHEMISTRY METHOD 05/28/2024 9:40 AM [facility] BUN 13 5 - 25 mg/dL LAB CHEMISTRY METHOD 05/28/2024 9:40 AM [facility] Creatinine 0.56 0.50 - 1.10 mg/dL LAB CHEMISTRY METHOD 05/28/2024 9:40 AM [facility] eGFR 96 >=60 mL/min/1. 73m2 LAB CHEMISTRY METHOD 05/28/2024 9:40 AM [facility] Comment:Calculation based on the??Chronic Kidney Disease Epidemiology Collaboration (CKD-EPI) equation refit??without adjustment for race. BUN/Creatinine Ratio 23.2 LAB CHEMISTRY METHOD 05/28/2024 9:40 AM [facility] Calcium 8.3(L) 8.5 - 10.5 mg/dL LAB CHEMISTRY METHOD 05/28/2024 9:40 AM [facility] Blood Venous blood specimen / Unknown Venipuncture / Unknown 05/28/2024 6:03 AM EST 05/28/2024 8:39 AM EST us Kenny Malave MD LAB BLOOD ORDERABLES Final Resul t [facility] [address] [place] [address], documented in this encounter Visit Diagnoses Diagnosis Polyneuropathy, unspecified Unspecified protein-calorie malnutrition (CMS/HCC V24) Unspecified protein-calorie malnutrition Chronic obstructive pulmonary disease, unspecified (CMS/[facility] V24, CMS/[facility] V28) documented in this encounter Care Teams Airborne And Air Delivery Specialist Relationship Specialty Start Date End Date Alan Chanel MD [address] [place] [address] Dr [address] [place] PCP - General Internal Medicine 03/12/24 documented as of this encounter
--- OUTSIDE RECORDS SUMMARY | 2024-08-18 10:10 | XMS_ITS | Encounter Summary ---
Author Organization [facility] Address [address] [place] [address] Care Team Providers Care Underwriting Analyst Name Role Phone Alan Chanel MD Primary Care Provider Encounter Details Date Type Department Care Team (Late st Contact Info) Description 04/14/2024 Lab Requisition [facility] - Main Lab [address] [place] [address] Ever Reyna MD [address] [place] [address] Encounter for other general examination Social History [...] LAB CHEMISTRY METHOD 04/14/2024 11:19 AM EST [facility] Blood Venous blood specimen / Unknown Venipuncture / Unknown 04/14/2024 4:35 AM EST 04/14/2024 9:55 AM EST us Ever Reyna MD LAB BLOOD ORDERABLES Final Res ult [facility] [address] [place] [address], * (ABNORMAL) Basic metabolic panel (04/14/2024 4:35 [...] LAB CHEMISTRY METHOD 04/14/2024 10:[address] [facility] Blood Venous blood specimen / Unknown Venipuncture / Unknown 04/14/2024 4:35 AM EST 04/14/2024 9:55 AM EST us Ever Reyna MD LAB BLOOD ORDERABLES Final Res ult [facility] [address] [place] [address], documented in this encounter Visit Diagnoses Diagnosis Encounter for other general examination documented in this encounter Care Teams Underwriting Analyst Relationship Specialty Start Date End Date Alan Chanel MD [address] [place] [address] Dr [address] [place] PCP - General Internal Medicine 03/12/24 documented as of this encounter
--- OUTSIDE RECORDS SUMMARY | 2024-08-18 10:10 | XMS_ITS | Encounter Summary ---
Author Organization [facility] Address [address] [place] [address] Care Team Providers Care Sealer Sander Name Role Phone Alan Chanel MD Primary Care Provider Encounter Details Date Type Department Care Team (Late st Contact Info) Description 04/28/2024 Lab Requisition [facility] Lab [address] [place] [address] Kenny Malave MD 38 [facility] [address] [place], [address] Essential (primary) hypertension Social History Tobacco [...] LAB CHEMISTRY METHOD 04/28/2024 12:11 PM EST [facility] Potassium 3.7 3.5 - 5.5 mmol/L LAB CHEMISTRY METHOD 04/28/2024 12:11 PM EST [facility] Chloride 91(L) 96 - [...] 10.5 mg/dL LAB CHEMISTRY METHOD 04/28/2024 12:11 [facility] AST (SGOT) 31 10 - 42 [...] 04/28/2024 12:11 PM [facility] Total Bilirubin 0.5 0.0 - 1.4 mg/dL LAB CHEMISTRY METHOD 04/28/2024 12:11 PM [facility] Blood Venous blood specimen / Unknown Venipuncture / Unknown 04/28/2024 6:19 AM EST 04/28/2024 10:16 AM EST us Kenny Malave MD LAB BLOOD ORDERABLES Final Resul t [facility] [address] [place] [address], [place] [phone] * (ABNORMAL) Complete blood count (04/28/2024 6:19 [...] LAB HEMETOLOGY METHOD 04/28/2024 11:29 AM EST [facility] RDW 13.2 11.0 - 15.0 % LAB HEMETOLOGY METHOD 04/28/2024 11:29 AM EST [facility] Platelets 491(H) 130 - 400 K/mcL LAB HEMETOLOGY METHOD 04/28/2024 11:29 AM EST [facility] MPV 8.2 7.0 - 11.0 FL LAB HEMETOLOGY METHOD 04/28/2024 11:29 AM EST [facility] NRBC 0.0 <1.0 % LAB HEMETOLOGY METHOD 04/28/2024 11:29 AM EST [facility] NRBC Absolute 0.00 <0.10 K/mcL LAB HEMETOLOGY METHOD 04/28/2024 11:29 AM [facility] Blood Venous blood specimen / Unknown Venipuncture / Unknown 04/28/2024 6:19 AM EST 04/28/2024 10:16 AM EST us Kenny Malave MD LAB BLOOD ORDERABLES Final Resul t [facility] [address] [place] [address], documented in this encounter Visit Diagnoses Diagnosis Essential (primary) hypertension Unspecified essential hypertension documented in this encounter Care Teams Sealer Sander Relationship Specialty Start Date End Date Alan Chanel MD [address] [facility] [address] Reyna [place] PCP - General Internal Medicine 03/12/24 documented as of this encounter
== END 2024-08-18 10:00 | disposition home or self-care (01) ==
LOC: HO.HOS 09:17
PROVIDERS: Visit Provider Physician Assistant
DX: S82.142D Displaced bicondylar fracture of left tibia, subsequent encounter for closed fracture with routine healing (principal)
CPT/HCPCS: 99213

== ENCOUNTER → 2024-08-18 09:27 | Outpatient (BNV) | payer MEDICARE, MEDICAID, SELFPAY | PROVIDERS: Visit Provider Radiology Diagnostic Radiology | DX: M11.262 Other chondrocalcinosis, left knee (principal); S82.192G Other fracture of upper end of left tibia, subsequent encounter for closed fracture with delayed healing; M71.462 Calcium deposit in bursa, left knee | CPT/HCPCS: 73562 ==

== ENCOUNTER 2024-08-18 11:45 | Outpatient (REF) | payer MEDICARE, MEDICAID, SELFPAY ==
--- NOTE | ~2024-08-18 | XR_ITS ---
EXAMINATION: XR KNEE, LEFT CLINICAL INFORMATION: M25.569 - Pain in unspecified knee COMPARISON: Numerous priors, most recently 07/09/2024. TECHNIQUE: AP view bilateral knees standing, lateral and patellofemoral views left knee. FINDINGS: Right Knee: No fracture, dislocation, or suspicious bone lesion. Preserved joint spaces. Normal alignment. Chondrocalcinosis in the medial and lateral compartments. Vascular calcifications in the soft tissues. Left Knee: Healing fracture of the tibial metaphysis with extensive sclerosis of the fracture lines, and with fracture lines being not well defined. Stable alignment from the prior. Mild medial compartment joint space narrowing. Chondrocalcinosis in all 3 compartments. No evidence of joint effusion. Vascular calcifications in the soft tissues. XR/XR knee LT 3V IMPRESSION: 1. Continued interval healing left proximal tibial metaphyseal fracture. No change in alignment. 2. Bilateral diffuse chondrocalcinosis. 3. Bilateral vascular calcifications. Electronically signed by: Anurag Crow MD 08/18/2024 12:03 PM EDT
--- OUTSIDE RECORDS SUMMARY | 2024-08-19 14:15 | XMS_ITS | Encounter Summary ---
Author Organization [facility] Address [address] [place] [address] Care Team Providers Care Hands Assembler Name Role Phone Alan Chanel MD Primary Care Provider [phone] Encounter Details Date Type Department Care Team (Late st Contact Info) Description 06/08/2024 Lab Requisition [facility] [address] [place] [address] Kenny Malave MD 38 [facility] [address] [place], [address] Chronic obstructive pulmonary disease, unspecified (CMS/HCC [...] LAB CHEMISTRY METHOD 06/08/2024 11:51 AM EST [facility] Potassium 5.0 3.5 - 5.5 mmol/L LAB CHEMISTRY METHOD 06/08/2024 11:51 AM [facility] Comment:Results verified by repeat testing Chloride 102 96 - 110 mmol/L LAB CHEMISTRY METHOD 06/08/2024 11:51 AM [facility] CO2 26 21 - 32 mmol/L LAB CHEMISTRY METHOD 06/08/2024 11:51 AM [facility] Anion Gap 8 3 - 11 LAB CHEMISTRY METHOD 06/08/2024 11:51 AM [facility] Glucose 78 70 - 100 mg/dL LAB CHEMISTRY METHOD 06/08/2024 11:51 AM [facility] BUN 17 5 - 25 mg/dL LAB CHEMISTRY METHOD 06/08/2024 11:51 AM [facility] Creatinine 0.53 0.50 - 1.10 mg/dL LAB CHEMISTRY METHOD 06/08/2024 11:51 AM [facility] eGFR 97 >=60 mL/min/1. 73m2 LAB CHEMISTRY METHOD 06/08/2024 11:51 AM [facility] Comment:Calculation based on the??Chronic Kidney Disease Epidemiology Collaboration (CKD-EPI) equation refit??without adjustment for race. BUN/Creatinine Ratio 32.1 LAB CHEMISTRY METHOD 06/08/2024 11:51 AM [facility] Calcium 9.6 8.5 - 10.5 mg/dL LAB CHEMISTRY METHOD 06/08/2024 11:51 AM [facility] Blood Venous blood specimen / Unknown Venipuncture / Unknown 06/08/2024 7:16 AM EST 06/08/2024 9:26 AM EST us Kenny Malave MD LAB BLOOD ORDERABLES Final Resul t [facility] [address] [place] [address], * (ABNORMAL) Complete blood count (06/08/2024 7:16 AM EST) [facility] WBC 5.0 4.8 - 10.8 K/mcL LAB HEMETOLOGY METHOD 06/08/2024 10:15 AM [facility] RBC 3.80 3.80 - 4.80 M/mcL LAB HEMETOLOGY METHOD 06/08/2024 10:15 AM [facility] Hemoglobin 10.6(L) 11.5 - 16.0 g/dL LAB HEMETOLOGY METHOD 06/08/2024 10:15 AM [facility] Hematocrit 33.0(L) 35.0 - 47.0 % LAB HEMETOLOGY METHOD 06/08/2024 10:15 AM [facility] MCV 86.4 79.0 - 98.0 FL LAB HEMETOLOGY METHOD 06/08/2024 10:15 AM [facility] MCH 27.7 27.0 - 32.0 pcg LAB HEMETOLOGY METHOD 06/08/2024 10:15 AM [facility] MCHC 32.1 32.0 - 37.0 g/dL LAB HEMETOLOGY METHOD 06/08/2024 10:15 AM [facility] RDW 17.9(H) 11.0 - 15.0 % LAB HEMETOLOGY METHOD 06/08/2024 10:15 AM [facility] Platelets 516(H) 130 - 400 K/mcL LAB HEMETOLOGY METHOD 06/08/2024 10:15 AM [facility] MPV 8.5 7.0 - 11.0 FL LAB HEMETOLOGY METHOD 06/08/2024 10:15 AM [facility] NRBC 0.0 <1.0 % LAB HEMETOLOGY METHOD 06/08/2024 10:15 AM [facility] NRBC Absolute 0.00 <0.10 K/mcL LAB HEMETOLOGY METHOD 06/08/2024 10:15 AM EST [facility] Blood Venous blood specimen / Unknown Venipuncture / Unknown 06/08/2024 7:16 AM EST 06/08/2024 9:26 AM EST us Kenny Malave MD LAB BLOOD ORDERABLES Final Resul t [facility] [address] [place] [address], documented in this encounter Visit Diagnoses Diagnosis Chronic obstructive pulmonary disease, unspecified (CMS/HCC V24, CMS/HCC V28) documented in this encounter Care Teams Hands Assembler Relationship Specialty Start Date End Date Alan Chanel MD [address] [place] [address] Dr [address] [place], [place] PCP - General Internal Medicine 03/12/24 documented as of this encounter
--- OUTSIDE RECORDS SUMMARY | 2024-08-19 14:15 | XMS_ITS | Encounter Summary ---
Author Organization [facility] Address [address] [place] [address] Care Team Providers Care Portrait Studio Photographer Name Role Phone Alan Chanel MD Primary Care Provider Encounter Details Date Type Department Care Team (Late st Contact Info) Description 04/13/2024 Lab Requisition [facility] Lab [address] [facility] [place] [address] Ever Reyna MD [address] [place] [address] Encounter for other general examination Social History [...] CHEMISTRY METHOD 04/13/2024 1:06 PM EST [facility] Potassium 4.0 3.5 - 5.5 mmol/L LAB CHEMISTRY METHOD 04/13/2024 1:06 PM EST [facility] Chloride 92(L) 96 - 110 mmol/L LAB CHEMISTRY METHOD 04/13/2024 1:06 PM EST [facility] CO2 26 21 - 32 mmol/L LAB CHEMISTRY METHOD 04/13/2024 1:[address] [facility] Anion Gap 10 3 - 11 LAB CHEMISTRY METHOD 04/13/2024 1:[address] [facility] Glucose 59(L) 70 - 100 mg/dL LAB CHEMISTRY METHOD 04/13/2024 1:[address] [facility] BUN 17 5 - 25 mg/dL LAB CHEMISTRY METHOD 04/13/2024 1:[address] [facility] Creatinine 0.82 0.70 - 1.30 mg/dL LAB CHEMISTRY METHOD 04/13/2024 1:[address] [facility] eGFR 92 >=60 mL/min/1. 73m2 LAB CHEMISTRY METHOD 04/13/2024 1:[address] [facility] Comment:Calculation based on the??Chronic Kidney Disease Epidemiology Collaboration (CKD-EPI) equation refit??without adjustment for race. BUN/Creatinine Ratio 20.7 LAB CHEMISTRY METHOD 04/13/2024 1:[address] [facility] Calcium 9.9 8.5 - 10.5 mg/dL LAB CHEMISTRY METHOD 04/13/2024 1:[address] [facility] Blood Venous blood specimen / Unknown Venipuncture / Unknown 04/13/2024 5:20 AM EST 04/13/2024 11:02 AM EST us Ever Reyna MD LAB BLOOD ORDERABLES Final Res ult [facility] [address] [place] [address], documented in this encounter Visit Diagnoses Diagnosis Encounter for other general examination documented in this encounter Care Teams Portrait Studio Photographer Relationship Specialty Start Date End Date Alan Chanel MD [address] [place] [address] [address] [place] PCP - General Internal Medicine 03/12/24 documented as of this encounter
--- OUTSIDE RECORDS SUMMARY | 2024-08-19 14:15 | XMS_ITS | Encounter Summary ---
Author Organization [facility] Address [address] [place] [address] Care Team Providers Care It Support Engineer Name Role Phone Alan Chanel MD Primary Care Provider Encounter Details Date Type Department Care Team (Late st Contact Info) Description 06/04/2024 Lab Requisition [facility] Lab [address] [place] [address] Kenny Malave MD [address] [facility] [address] [place], [address] Other detention (current) drug therapy Social History Tobacco Use [...] PANEL Routine 06/04/2024 5:36 AM EST Other long chain dyeing machine operator (current) drug therapy documented in this encounter [...] 11 LAB CHEMISTRY METHOD 06/04/2024 11:25 AM [facility] Glucose 71 70 - 100 mg/dL LAB CHEMISTRY METHOD 06/04/2024 11:25 AM [facility] BUN 18 5 - 25 mg/dL LAB CHEMISTRY METHOD 06/04/2024 11:25 AM [facility] Creatinine 0.57 0.50 - 1.10 mg/dL LAB CHEMISTRY METHOD 06/04/2024 11:25 AM [facility] eGFR 95 >=60 mL/min/1. 73m2 LAB CHEMISTRY METHOD 06/04/2024 11:25 AM EST [facility] Comment:Calculation based on the??Chronic Kidney Disease Epidemiology Collaboration (CKD-EPI) equation refit??without adjustment for race. BUN/Creatinine Ratio 31.6 LAB CHEMISTRY METHOD 06/04/2024 11:25 AM [facility] Calcium 8.8 8.5 - 10.5 mg/dL LAB CHEMISTRY METHOD 06/04/2024 11:25 AM [facility] Blood Venous blood specimen / Unknown Venipuncture / Unknown 06/04/2024 5:36 AM EST 06/04/2024 9:58 AM EST us Kenny Malave MD LAB BLOOD ORDERABLES Final Resul t [facility] [address] [place] [address], documented in this encounter Visit Diagnoses Diagnosis Other detention (current) drug therapy documented in this encounter Care Teams It Support Engineer Relationship Specialty Start Date End Date Alan Chanel MD [address] [place] [address] Dr Reyna [address] [place] PCP - General Internal Medicine 03/12/24 documented as of this encounter
--- OUTSIDE RECORDS SUMMARY | 2024-08-19 14:15 | XMS_ITS | Encounter Summary ---
Author Organization [facility] Address [address] [place] [address] Care Team Providers Care Band Builder Name Role Phone Alan Chanel MD Primary Care Provider [phone] Encounter Details Date Type Department Care Team (Late st Contact Info) Description 04/20/2024 Lab Requisition [facility] [address] [place] [address] Ever Reyna MD [address] [place] [id number] Encounter for other general examination Social History [...] AM EST) WBC 3.3(L) 4.8 - 10.8 K/[facility] LAB HEMETOLOGY METHOD 04/20/2024 9:[address] [facility] RBC 4.20(L) 4.50 - 5.50 M/[facility] LAB HEMETOLOGY METHOD 04/20/2024 9:[address] [facility] Hemoglobin 11.7(L) 13.5 - 17.5 g/dL LAB HEMETOLOGY METHOD 04/20/2024 9:17 AM [facility] Hematocrit 35.0(L) 42.0 - 54.0 % LAB HEMETOLOGY METHOD 04/20/2024 9:17 AM [facility] MCV 83.7 79.0 - 98.0 FL LAB HEMETOLOGY METHOD 04/20/2024 9:17 AM [facility] LAB MCH 28.0 27.0 - 32.0 pcg LAB HEMETOLOGY METHOD 04/20/2024 9:17 AM [facility] MCHC 33.4 32.0 - 37.0 g/dL LAB HEMETOLOGY METHOD 04/20/2024 9:17 AM [facility] RDW 13.3 11.0 - 15.0 % LAB HEMETOLOGY METHOD 04/20/2024 9:17 AM [facility] LAB Platelets 437(H) 130 - 400 K/mcL LAB HEMETOLOGY METHOD 04/20/2024 9:17 AM [facility] MPV 8.3 7.0 - 11.0 FL LAB HEMETOLOGY METHOD 04/20/2024 9:17 AM [facility] NRBC 0.0 <1.0 % LAB HEMETOLOGY METHOD 04/20/2024 9:17 AM [facility] LAB NRBC Absolute 0.00 <0.10 K/mcL LAB HEMETOLOGY METHOD 04/20/2024 9:17 AM [facility] Blood Venous blood specimen / Unknown Venipuncture / Unknown 04/20/2024 5:20 AM EST 04/20/2024 8:31 AM EST us Ever Reyna MD LAB BLOOD ORDERABLES Final Res ult [facility] [address] [place] [address], * (ABNORMAL) Comprehensive metabolic panel (04/20/2024 5:20 AM EST) Sodium 128(L) 133 - 145 mmol/L LAB CHEMISTRY METHOD 04/20/2024 10:[address] [facility] Potassium 4.0 3.5 - 5.5 mmol/L LAB CHEMISTRY METHOD 04/20/2024 10:20 AM [facility] Chloride 90(L) 96 - 110 mmol/L LAB CHEMISTRY METHOD 04/20/2024 10:20 AM [facility] CO2 25 21 - 32 mmol/L LAB CHEMISTRY METHOD 04/20/2024 10:20 AM [facility] Anion Gap 13(H) 3 - 11 LAB CHEMISTRY METHOD 04/20/2024 10:20 AM [facility] Glucose 79 70 - 100 mg/dL LAB CHEMISTRY METHOD 04/20/2024 10:20 AM [facility] BUN 11 5 - 25 mg/dL LAB CHEMISTRY METHOD 04/20/2024 10:20 AM [facility] Creatinine 0.65(L) 0.70 - 1.30 mg/dL LAB CHEMISTRY METHOD 04/20/2024 10:20 AM [facility] eGFR 99 >=60 mL/min/1. 73m2 LAB CHEMISTRY METHOD 04/20/2024 10:20 AM [facility] Comment:Calculation based on the??Chronic Kidney Disease Epidemiology Collaboration (CKD-EPI) equation refit??without adjustment for race. BUN/Creatinine Ratio 16.9 LAB CHEMISTRY METHOD 04/20/2024 10:20 AM [facility] Calcium 9.1 8.5 - 10.5 mg/dL LAB CHEMISTRY METHOD 04/20/2024 10:20 AM [facility] AST (SGOT) 309(H) 10 - 42 unit/L LAB CHEMISTRY METHOD 04/20/2024 10:20 AM [facility] ALT (SGPT) 248(H) 10 - 60 unit/L LAB CHEMISTRY METHOD 04/20/2024 10:20 AM [facility] Alkaline Phosphatase 209(H) 42 - 121 unit/L LAB CHEMISTRY METHOD 04/20/2024 10:20 AM [facility] Total Protein 6.4 6.0 - 8.0 g/dL LAB CHEMISTRY METHOD 04/20/2024 10:20 AM [facility] Albumin 3.1(L) 3.2 - 5.0 g/dL LAB CHEMISTRY METHOD 04/20/2024 10:20 AM [facility] Total Bilirubin 0.3 0.0 - 1.4 mg/dL LAB CHEMISTRY METHOD 04/20/2024 10:20 AM [facility] Blood Venous blood specimen / Unknown Venipuncture / Unknown 04/20/2024 5:20 AM EST 04/20/2024 8:31 AM EST us Ever Reyna MD LAB BLOOD ORDERABLES Final Res ult [facility] [address] [place] [address], documented in this encounter Visit Diagnoses Diagnosis Encounter for other general examination documented in this encounter Care Teams Band Builder Relationship Specialty Start Date End Date Alan Chanel MD [address] [place] [address] [address] [place] PCP - General Internal Medicine 03/12/24 documented as of this encounter
--- OUTSIDE RECORDS SUMMARY | 2024-08-19 14:16 | XMS_ITS | Encounter Summary ---
Author Organization [facility] Address [address] [place] [address] Care Team Providers Care Base Manager Name Role Phone Alan Chanel MD Primary Care Provider Encounter Details Date Type Department Care Team (Late st Contact Info) Description 04/28/2024 Lab Requisition [facility] Lab [address] [place] [address] Kenny Malave MD [address] [facility] [address] [place], [address] Essential (primary) hypertension Social History Tobacco [...] LAB CHEMISTRY METHOD 04/28/2024 12:11 PM EST [facility] Potassium 3.7 3.5 - 5.5 mmol/L LAB CHEMISTRY METHOD 04/28/2024 12:11 PM EST [facility] Chloride 91(L) 96 - 110 mmol/L LAB CHEMISTRY METHOD 04/28/2024 12:11 PM [facility] LAB CO2 25 21 - 32 mmol/L LAB CHEMISTRY METHOD 04/28/2024 12:11 PM [facility] LAB Anion Gap 11 3 - 11 LAB CHEMISTRY METHOD 04/28/2024 12:11 PM [facility] LAB Glucose 81 70 - 100 mg/dL LAB CHEMISTRY METHOD 04/28/2024 12:11 PM [facility] BUN 16 5 - 25 mg/dL LAB CHEMISTRY METHOD 04/28/2024 12:11 PM [facility] Creatinine 0.56(L) 0.70 - 1.30 mg/dL LAB CHEMISTRY METHOD 04/28/2024 12:11 PM [facility] LAB eGFR 103 >=60 mL/min/1. 73m2 LAB CHEMISTRY METHOD 04/28/2024 12:11 PM [facility] LAB Comment:Calculation based on the??Chronic Kidney Disease Epidemiology Collaboration (CKD-EPI) equation refit??without adjustment for race. BUN/Creatinine Ratio 28.6 LAB CHEMISTRY METHOD 04/28/2024 12:11 PM [facility] LAB Calcium 9.0 8.5 - 10.5 mg/dL LAB CHEMISTRY METHOD 04/28/2024 12:11 [facility] AST (SGOT) 31 10 - 42 unit/L LAB CHEMISTRY METHOD 04/28/2024 12:11 PM [facility] ALT (SGPT) 48 10 - 60 unit/L LAB CHEMISTRY METHOD 04/28/2024 12:11 PM [facility] Alkaline Phosphatase 136(H) 42 - 121 unit/L LAB CHEMISTRY METHOD 04/28/2024 12:11 PM [facility] Total Protein 6.4 6.0 - 8.0 g/dL LAB CHEMISTRY METHOD 04/28/2024 12:11 PM [facility] Albumin 2.9(L) 3.2 - 5.0 g/dL LAB CHEMISTRY METHOD 04/28/2024 12:11 PM [facility] Total Bilirubin 0.5 0.0 - 1.4 mg/dL LAB CHEMISTRY METHOD 04/28/2024 12:11 PM [facility] Blood Venous blood specimen / Unknown Venipuncture / Unknown 04/28/2024 6:19 AM EST 04/28/2024 10:16 AM EST us Kenny Malave MD LAB BLOOD ORDERABLES Final Resul t [facility] [address] [place] [address], [place] [phone] * (ABNORMAL) Complete blood count (04/28/2024 6:19 AM EST) WBC 6.8 4.8 - 10.8 K/mcL LAB HEMETOLOGY METHOD 04/28/2024 11:29 AM [facility] RBC 4.10(L) 4.50 - 5.50 M/mcL LAB HEMETOLOGY METHOD 04/28/2024 11:29 AM [facility] Hemoglobin 11.4(L) 13.5 - 17.5 g/dL LAB HEMETOLOGY METHOD 04/28/2024 11:29 AM [facility] Hematocrit 33.6(L) 42.0 - 54.0 % LAB HEMETOLOGY METHOD 04/28/2024 11:29 AM [facility] LAB MCV 81.8 79.0 - 98.0 FL LAB HEMETOLOGY METHOD 04/28/2024 11:29 AM [facility] LAB MCH 27.7 27.0 - 32.0 pcg LAB HEMETOLOGY METHOD 04/28/2024 11:29 AM [facility] LAB MCHC 33.9 32.0 - 37.0 g/dL LAB HEMETOLOGY METHOD 04/28/2024 11:29 AM EST [facility] RDW 13.2 11.0 - 15.0 % LAB HEMETOLOGY METHOD 04/28/2024 11:29 AM EST [facility] Platelets 491(H) 130 - 400 K/mcL LAB HEMETOLOGY METHOD 04/28/2024 11:29 AM EST [facility] LAB MPV 8.2 7.0 - 11.0 FL LAB HEMETOLOGY METHOD 04/28/2024 11:29 AM EST [facility] NRBC 0.0 <1.0 % LAB HEMETOLOGY METHOD 04/28/2024 11:29 AM EST [facility] NRBC Absolute 0.00 <0.10 K/mcL LAB HEMETOLOGY METHOD 04/28/2024 11:29 AM [facility] LAB Blood Venous blood specimen / Unknown Venipuncture / Unknown 04/28/2024 6:19 AM EST 04/28/2024 10:16 AM EST us Kenny Malave MD LAB BLOOD ORDERABLES Final Resul t [facility] [address] [place] [address], documented in this encounter Visit Diagnoses Diagnosis Essential (primary) hypertension Unspecified essential hypertension documented in this encounter Care Teams Base Manager Relationship Specialty Start Date End Date Alan Chanel MD [address] [facility] [address] Reyna Kruger [place] PCP - General Internal Medicine 03/12/24 documented as of this encounter
--- OUTSIDE RECORDS SUMMARY | 2024-08-19 14:16 | XMS_ITS | Data Portability ---
Author Organization [facility], Main Office Address [address] [place] [address] Care Team Providers Care Manager Power Name Role Phone DANIEL PETER - 2ND FLOOR OTHER LAUREN ROSAS Primary Care Provider [phone] Assessment No assessment recorded. Plan of Treatment [...] Recorded Time Adult failure to thrive syndrome 113949767 Active 2023 Kenny Malave MD [address] [facility], [facility] [address], [place], [address], [facility] 13:42:50 Syndrome of inappropria te vasopressin secretion 42723999 Active 2023 Kenny Malave MD [address] [facility], [address], [place], [address], [facility] [employer] 13:42:57 Unsteady when walking 08198764 Active 2023 Kenny Malave MD [address] [facility], [address], [place], [address] , [facility] 4 13:43:03 Essential hypertensio n 47781623 Active 2023 Kenny Malave MD [address] [facility], [address], [place], [address], [facility] [employer] 13:43:09 Anemia 473091629 Active 2023 Kenny Malave MD [address], [place], [address], [facility] 4 13:43:14 Chronic obstructive pulmonary disease 64180984 Active 2023 Kenny Malave MD [address], [address], [place], [address], [place] [facility] 4 13:43:19 Osteoporosi s 80443965 Active 2023 Kenny Malave MD [address], [address], [place], [address], [facility] 4 13:43:27 Neuropathy 378681066 Active 2023 Kenny Malave MD [address], [address], [place], [address], [facility] 4 13:43:33 Mood disorder 00461772 Active 2023 Kenny Malave MD [address] [facility], [address], [place], [address], [place] [facility] 4 13:43:41 Closed fracture of left patella 2419705528641 9105 Active 2023 Kenny Malave MD [address], [address], [place], [address], [facility] 4 13:44:22 Hearing loss 78339838 Active 2023 Kenny Malave MD [address] [facility], [address], [place], [address], [facility] 4 13:56:41 Problem Notes None recorded. Medical Equipment None Reported. Allergies No known drug allergies Medications Not known to be on any medication Vitals Date Recorded Body weight Heart rate Respiratory rate Body temperature Oxygen saturation Oxygen saturation in Arterial blood by Pulse oximetry Systolic blood pressure Diastolic blood pressure Provider Name and Address Organization Details Last Updated DateTime 5 71651.1 6 g 68 /min 18 /min 97.3 [degF] 98 % 98 % 110 mm[Hg] 62 mm[Hg] Radha Hickey NP [address] [facility], [address], [place], [address], [facility] 5 12:26:42 Date Recorded Heart rate Respiratory rate Body temperature Oxygen saturation Oxygen saturation in Arterial blood by Pulse oximetry Systolic blood pressure Diastolic blood pressure Provider Name and Address Organization Details Last Updated DateTime 5 68 /min 18 /min 97.3 [degF] 98 % 98 % 110 mm[Hg] 62 mm[Hg] MAYDA WHIPPLE NP [address] [facility], [address], [place], [address], [facility] 5 13:51:57 Date Recorded Body weight Heart rate Respiratory rate Body temperature Oxygen saturation Oxygen saturation in Arterial blood by Pulse oximetry Systolic blood pressure Diastolic blood pressure Provider Name and Address Organization Details Last Updated DateTime 5 42097.1 6 g 68 /min 18 /min 97 [degF] 98 % 98 % 110 mm[Hg] 62 mm[Hg] Radha Hickey NP [address] [facility], [facility] [address], [place], [address], [facility] 5 09:20:23 Date Recorded Body weight Heart rate Respiratory rate Body temperature Oxygen saturation Oxygen saturation in Arterial blood by Pulse oximetry Systolic blood pressure Diastolic blood pressure Provider Name and Address Organization Details Last Updated DateTime 5 87541.1 6 g 68 /min 18 /min 97.3 [degF] 98 % 98 % 110 mm[Hg] 62 mm[Hg] Radha Hickey NP [address] [facility], [facility] [address], [place], [address], [facility] 5 08:38:32 Social History Question Answer Notes LastModified by Organizat ion Details LastModified Time Tobacco Smoking Status Former Smoker 2 ppd smoker quit early 2023 Kenny Malave MD [address] [facility], [facility] [address], [place], [address], [employer] 04/28/2024 13:58:17 Do You Have An Advance Directive? No Information not available 04/28/2024 What Is Your Level Of Alcohol Consumption? None Information not available 04/28/2024 What Is Your Code Status? DNI [id number] Information not available 04/30/2024 How Much Tobacco [...] Recorded Time Tdap 6 completed Joann Kulwant [facility] 05/05/2024 16:34:17 pneumococcal polysaccharide PPV23 6 completed Joann Kulwant [facility] 05/05/2024 16:34:32 influenza, unspecified formulation 4 completed Joann Kulwant [facility] 05/05/2024 16:34:49 influenza, unspecified formulation 3 completed Joann Kulwant [facility] 05/05/2024 16:34:56 influenza, unspecified formulation 2 completed Joann Kulwant [facility] 05/05/2024 16:35:02 Past Encounters Encounter ID Performer Location Encounter Start Date Encounter Closed Date Diagnosis/Indication Diagnosis SNOMED-CT Code Diagnosis ICD10 Code Diagnosis Note [id number] Kenny Malave MD [address] [address] 04/28/2024 13:33:15 04/30/2024 11:05:32 Adult failure to thrive syndrome 904247202 R62.7 see HPInot able to be cared for in communitym onitor need for increased servicesco ntinue supportive care at facilitypo or PO intake priordieta ry to evalmonito r weights Closed fra cture of left patella 8923436198 3891301 S82.015G prior fall with left knee fxACL brace in placeNWB till cleared by orthofollo w ortho recs and update with concernstr amadol 50 mg q 8 prnmonitor pain control Syndrome o f inappropriate vasopressin secretion 55581257 E22.2 monitor Na and need to adjust fluid restrictio n Acute hypokalemia 177659 03 E87.6 improved with supplement monitor lytes Unsteady when walking 22 479708 R26.89 NWB LLE till cleared by orthoPT OT eval and treat for deconditio funmilayo Essential hypertension 52825080 I10 lisinopril 5 mg qdmonitor bp and need to titrate Anemia 769651221 D50.8 monitor cbciron studies prn Chronic ob structive pulmonary disease 72860575 J41.1 carrying dx added to PMHmonitor respirator y status Osteoporosis 31750126 M8 1.0 added to PMH Neuropathy 480445500 G62 .89 carrying dx added to PMHmonitor sx Mood disorder 21030032 F 34.89 with underlying anxietyati van 0.5 mg bidzoloft 50 mg qd Hearing loss 93984549 H9 0.0 audiology eval prn [id number] Radha Hickey NP [facility] [address] [address] 05/15/2024 12:28:25 05/19/2024 09:13:20 Adult failure to thrive syndrome 027833980 R62.7 see HPIshe was not able to be cared for in community with tibia fxmonitor need for increased servicesco ntinue supportive care at facilitydi etary to evalmonito r weights Closed fra cture of left patella 3560799814 2775663 S82.015G prior fall with left knee fxcontACL brace in placeNWB till cleared by orthofollo w ortho recs and update with concernstr amadol 50 mg q 8 prnmonitor pain controlfu with ortho h[facility] on 05/19/24 Syndrome o f inappropriate vasopressin secretion 52138993 E22.2 monitor Na and need to adjust fluid restrictio nno s/s of siadh Acute hypokalemia 128641 03 E87.6 improved with supplement monitor lytes Unsteady when walking 22 274381 R26.89 NWB LLE till cleared by orthoPT OT eval and treat for deconditio ningmonito r Essential hypertension 08795385 I10 bp stablelisi nopril 5 mg qdmonitor bp and need to titrate Anemia 548448292 D50.8 monitor cbciron studies prn Chronic ob structive pulmonary disease 15769587 J41.1 carrying dx added to PMHmonitor respirator y statusadva ir inhaler 1 puff po bidalbuter ol for wheezes q 4 prn Osteoporosis 45542981 M8 1.0 hx ofcalcium Neuropathy 943822695 G62 .89 hx ofmonitor sx Mood disorder 01692536 F 34.89 with underlying anxietyati van 0.5 mg bidzoloft 50 mg qd [id number] MAYDA WHIPPLE NP [facility] [address] [place] [address] 05/20/2024 12:54:44 05/22/2024 14:28:37 Closed fracture of left patella 5275845093 0787230 S82.015G prior fall with left knee fxcontACL brace in placePT OT eval and tx.NWB till cleared by ortho - seen yesterday, get consult note to reviewfoll ow ortho recs and update with concernstr amadol 50 mg q 8 prnmonitor pain controlfu with ortho hmc as sched. Unsteady when walking 22 987001 R26.89 NWB LLE till cleared by orthoPT OT eval and treat for deconditio ningmonito r Adult fail ure to thrive syndrome 412282606 R62.7 see HPIshe was not able to be cared for in community with tibia fxmonitor need for increased servicesco ntinue supportive care at facilitydi etary to evalmonito r weights Syndrome o f inappropriate vasopressin secretion 17329054 E22.2 monitor Na and need to adjust fluid restrictio nCurrent Na level 134, repeat x 1 05/25no s/s of siadh Acute hypokalemia 152378 03 E87.6 improved with supplement current K level 3.4monitor lytes - repeat 05/25 Essential hypertension 31767781 I10 bp stablecont inue lisinopril 5 mg qdmonitor bp and need to titrate Anemia 896627346 D50.8 monitor cbcHgb. 11iron studies prn Chronic ob structive pulmonary disease 81099050 J41.1 carrying dx added to PMHmonitor respirator y statusadva ir inhaler 1 puff po bidalbuter ol for wheezes q 4 prn Osteoporosis 91864105 M8 1.0 hx ofcalcium Neuropathy 537871176 G62 .89 hx ofmonitor sx Mood disorder 19995900 F 34.89 with underlying anxietyati van 0.5 mg bidzoloft 50 mg qdSeen by Psych provider 05/11, no new recommenda tionsMonit or mood, behaviors. [id number] MAYDA WHIPPLE NP [facility] [place] [address] 05/27/2024 14:06:34 05/28/2024 10:49:56 Closed fracture of left patella 9096330270 7520410 S82.015G prior fall with left knee fxcontACL brace in placePT OT eval and tx.Seen by Ortho last week, second request for office note to review.fol low ortho recs and update with concernstr amadol 50 mg q 8 prnmonitor pain controlfu with ortho hmc as sched. Unsteady when walking 22 054857 R26.89 NWB LLE till cleared by orthoPT OT eval and treat for deconditio ningmonito r Adult fail ure to thrive syndrome 186855414 R62.7 see HPIshe was not able to be cared for in community with tibia fxmonitor need for increased servicesco ntinue supportive care at facilitydi etary to evalmonito r weights Syndrome o f inappropriate vasopressin secretion 83587464 E22.2 monitor Na and need to adjust fluid restrictio nCurrent Na level 134, repeat x 1 05/25 not done - check in amno s/s of siadh Acute hypokalemia 028490 03 E87.6 improved with supplement current K level 3.4monitor lytes - repeat 05/25 not done, check in am Essential hypertension 63206468 I10 bp stablecont inue lisinopril 5 mg qdmonitor bp and need to titrate Anemia 574380229 D50.8 monitor cbcHgb. 11iron studies prn Chronic ob structive pulmonary disease 32553770 J41.1 carrying dx added to PMHmonitor respirator y statusadva ir inhaler 1 puff po bidalbuter ol for wheezes q 4 prn Osteoporosis 53190827 M8 1.0 hx ofcalcium Neuropathy 224719558 G62 .89 hx ofmonitor sx Mood disorder 36289373 F 34.89 with underlying anxietyati van 0.5 mg bidzoloft 50 mg qdSeen by Psych provider 05/11, no new recommenda tionsMonit or mood, behaviors. Viral gastroenteritis 11 2873883 A08.4 N/V/GI upset x 2-3d.Concepcion nue symptomati c treatmentR estEncshaia ge fluids, clear liquids, advance as able.Hold laxativesP RN imodium and zofran available as well.BMP in am (not done on 05/25) [id number] MAYDA WHIPPLE NP [facility] [address] [place] [address] 06/03/2024 15:04:46 06/05/2024 09:47:09 Viral gastroenteritis 474602773 A08.4 N/V/GI upset x 2-3d last weekNow resolved. Closed fra cture of left patella 6581980156 2883586 S82.015G prior fall with left knee fxcontACL brace in placePT OT eval and tx.Seen by Ortho 2 wks ago, still no note scanned into EMR. Will request again.Foll ow ortho recs and update with concernstr amadol 50 mg q 8 prnmonitor pain controlfu with ortho hmc as sched. Unsteady when walking 22 925409 R26.89 NWB LLE till cleared by orthoPT OT eval and treat for deconditio ningmonito r Adult fail ure to thrive syndrome 977727134 R62.7 see HPIshe was not able to be cared for in community with tibia fxmonitor need for increased servicesco ntinue supportive care at facilitymo nitor weights, intake Syndrome o f inappropriate vasopressin secretion 31571354 E22.2 monitor Na and need to adjust fluid restrictio nMost recent level 135 on 05/28no s/s of siadhMonit or labs Acute hypokalemia 097958 03 E87.6 improved with supplement current K level 3.3not on obvious K depleting medsmonito r lytes - repeat in am Essential hypertension 20791336 I10 bp stablecont inue lisinopril 5 mg qdmonitor bp and need to titrate Anemia 552442278 D50.8 monitor cbcHgb. 11iron studies prn Chronic ob structive pulmonary disease 13306452 J41.1 carrying dx added to PMHmonitor respirator y statusadva ir inhaler 1 puff po bidalbuter ol for wheezes q 4 prn Osteoporosis 55521646 M8 1.0 hx ofcontinue calcium Neuropathy 033865041 G62 .89 hx ofmonitor sx Mood disorder 13436673 F 34.89 with underlying anxietyati van 0.5 mg bidzoloft 50 mg qdSeen by Psych provider 05/11, no new recommenda tionsMonit or mood, behaviors. [id number] Radha Hickey, SHEBA [facility] [address] [place] [address] 06/05/2024 08:46:02 06/08/2024 14:56:21 Viral gastroenteritis 390209766 A08.4 resolvingN /V/GI upset x 2-3d last week with likely potassium loss related to virus and vomitingNo w resolved. Closed fra cture of left patella 0519783001 1653351 S82.015G prior fall with left knee fxcontACL brace in placePT OT eval and tx.Seen by Ortho 2 wks ago, still no note scanned into EMR. Will request again.Foll ow ortho recs and update with concernstr amadol 50 mg q 8 prnmonitor pain controlfu with ortho hmc as sched. Unsteady when walking 22 558150 R26.89 NWB LLE till cleared by orthoPT OT eval and treat for deconditio ningmonito r Adult fail ure to thrive syndrome 871723000 R62.7 see HPIshe was not able to be cared for in community with tibia fxmonitor need for increased servicesco ntinue supportive care at facilitymo nitor weights, intake Syndrome o f inappropriate vasopressin secretion 55165100 E22.2 monitor Na and need to adjust fluid restrictio nMost recent level 138 improving from last weekno s/s of siadhMonit or labs Acute hypokalemia 822856 03 E87.6 current K level 3.2 with recent loss for gi virus06/05 start potassium 40 meq x 2 dosesrepea t labs on 2/3 Chronic ob structive pulmonary disease 13896055 J41.1 carrying dx added to PMHmonitor respirator y statusadva ir inhaler 1 puff po bidalbuter ol for wheezes q 4 prn Mood disorder 79271029 F 34.89 with underlying anxietyati van 0.5 mg bidzoloft 50 mg qdSeen by Psych provider 05/11, no new recommenda tionsMonit or mood, behaviors. Essential hypertension 75825059 I10 bp stablecont inue lisinopril 5 mg qdmonitor bp and need to titrate [id number] [facility] [address] [place] [address] 06/11/2024 11:27:16 06/12/2024 13:49:32 Acute hypokalemia 20944057 E87.6 labs improved on 2 with k supplement sp gi virus Viral gastroenteritis 11 1264071 A08.4 resolvedN/ V/GI upset x 2-3d last week with likely potassium loss related to virus and vomitingNo w resolved. Closed fra cture of left patella 0236142483 0562796 S82.015G prior fall with left knee fxcontACL brace in placePT OT eval and tx.Seen by Ortho 2 wks ago, still no note scanned into EMR. Will request again.Foll ow ortho recs and update with concernstr amadol 50 mg q 8 prnmonitor pain controlfu with ortho hmc as sched. Unsteady when walking 22 283958 R26.89 NWB LLE till cleared by orthoPT OT eval and treat for deconditio ningmonito r Adult fail ure to thrive syndrome 273345056 R62.7 see HPIshe was not able to be cared for in community with tibia fxmonitor need for increased servicesco ntinue supportive care at facilitymo nitor weights, intake Syndrome o f inappropriate vasopressin secretion 82366308 E22.2 monitor Na and need to adjust fluid restrictio nno s/s of siadhMonit or labs as above Chronic ob structive pulmonary disease 20180366 J41.1 carrying dx added to PMHmonitor respirator y statusadva ir inhaler 1 puff po bidalbuter ol for wheezes q 4 prn Mood disorder 16828530 F 34.89 with underlying anxiety, stable hereativan 0.5 mg bidzoloft 50 mg qdSeen by Psych provider 05/11, no new recommenda tionsMonit or mood, behaviors. [id number] MAYDA WHIPPLE NP [facility] [address] [address] 06/17/2024 09:17:58 06/18/2024 13:31:49 Acute hypokalemia 68719362 E87.6 labs improved on 2 = 5Continue to monitor Viral gastroenteritis 11 4096810 A08.4 resolved Closed fra cture of left patella 7371604657 1828186 S82.015G prior fall with left knee fxcontACL brace in placePT OT eval and tx.Follow ortho recs and update with concernsNe xt appt. 06/30tramad ol 50 mg q 8 prnmonitor pain control Unsteady when walking 22 705518 R26.89 NWB LLE till cleared by orthoPT OT eval and treat for deconditio ningmonito r Adult fail ure to thrive syndrome 874936997 R62.7 see HPIshe was not able to be cared for in community with tibia fxmonitor need for increased services in prep. for dischargec ontinue supportive care at facilitymo nitor weights, intake Syndrome o f inappropriate vasopressin secretion 08235107 E22.2 monitor Na, currently 136Does not appear to be on a FR at this time.no s/s of siadhMonit or labs Chronic ob structive pulmonary disease 54537476 J41.1 monitor respirator y status - currently stablecont inue:advai r inhaler 1 puff po bidalbuter ol for wheezes q 4 prn Mood disorder 20907620 F 34.89 with underlying anxietyCon tinue:ativ an 0.5 mg bidzoloft 50 mg qdSeen by Psych provider 05/11, no new recommenda tionsMonit or mood, behaviors. Essential hypertension 67415548 I10 VSScontinu e lisinopril 5 mg qdmonitor bp and need to titrate Osteoporosis 82941201 M8 1.0 hx ofcontinue calcium Anemia 786622802 D50.8 monitor cbcHgb. 10.6iron studies prn Neuropathy 130103044 G62 .89 hx ofmonitor sx [id number] Radha Hickey NP [facility] [address] [address] 06/24/2024 10:59:23 06/26/2024 16:05:53 Acute hypokalemia 50914702 E87.6 stablelike ly related to gi viruslabs improved on 06/08 = 5Continue to monitor Viral gastroenteritis 11 2336079 A08.4 resolved Closed fra cture of left patella 2611298865 3343480 S82.015G prior fall with left knee fxcontACL brace in placePT OT eval and tx.Follow ortho recs and update with concernsNe xt appt. 06/30tramad ol 50 mg q 8 prnmonitor pain control Unsteady when walking 22 081871 R26.89 NWB LLE till cleared by orthoPT OT eval and treat for deconditio funmilayo prnmonitor Adult fail ure to thrive syndrome 978990371 R62.7 not able to be cared for in community with tibia fxmonitor need for increased services in prep. for dischargec ontinue supportive care at facilitymo nitor weights, intake Syndrome o f inappropriate vasopressin secretion 06851900 E22.2 monitor Na, labs as aboveDoes not appear to be on a FR at this time.no s/s of siadhMonit or labs Chronic ob structive pulmonary disease 62434780 J41.1 monitor respirator y status - currently stablecont inue:advai r inhaler 1 puff po bidalbuter ol for wheezes q 4 prn Mood disorder 29693248 F 34.89 with underlying anxiety, stable on ativan hereContin ue:ativan 0.5 mg bidzoloft 50 mg qdSeen by Psych provider 05/11, no new recommenda tionsMonit or mood, behaviors. [id number] Radha Hickey NP [facility] [address] [facility] [place] [address] 07/03/2024 07:35:22 07/07/2024 12:51:41 Closed fracture of left patella 9159694442 1464178 S82.015G prior fall with left knee fxcontACL brace in placePT OT eval and tx. prn, currently off therapyFol low ortho recs and update with concernsap pt. 06/30, awaiting progress notetramad ol 50 mg q 8 prnmonitor pain control Unsteady when walking 22 710007 R26.89 NWB LLE till cleared by ortho, awaiting note from ortho 06/30 for recPT OT eval and treat for deconditio funmilayo prnmonitor Adult fail ure to thrive syndrome 900743572 R62.7 doing well here overallnot able to be cared for in community with tibia fxmonitor need for increased services in prep. for dischargec ontinue supportive care at [facility] nitor weights, intake Mood disorder 18891635 F 34.89 with underlying anxiety, stable on ativan hereContin ue:ativan 0.5 mg bidzoloft 50 mg qdSeen by Psych provider 05/11, no new recommenda tionsMonit or mood, behaviors. [id number] HERNESTO ROSALES, TIANNA [address] [address] 07/08/2024 15:41:12 07/09/2024 16:16:40 Closed fracture of left patella 0977389555 7552270 S82.015G prior fall with left knee fxcontACL brace in placePT OT eval and tx. prn, currently off therapyFol low ortho recs and update with concernsap pt. 07/10/24.Fol lowed by Dr. Lucero, recommende d to reduce tramadol 50 mg to daily.siddharth tor pain control Unsteady when walking 22 942489 R26.89 NWB LLE till cleared by ortho, has a follow up appoint on 07/10/24.PT OT eval and treat for deconditio funmilayo prnmonitor Adult fail ure to thrive syndrome 392811987 R62.7 doing well here overallnot able to be cared for in community with tibia fxmonitor need for increased services in prep. for dischargec ontinue supportive care at [facility] nitor weights, intake Mood disorder 28027443 F 34.89 with underlying anxiety, stable on ativan hereContin ue:ativan 0.5 mg bidzoloft 50 mg qdSeen by Psych provider 05/11, no new recommenda tionsMonit or mood, behaviors. Hyponatremia 97333984 E8 7.1 Lab result revealed hyponatrem ia today, 132.Pt is asymptomat ic.Will repeat labs on Sat X1. [id number] Kenny Malave MD [facility] [address] [address] 07/11/2024 10:29:54 07/14/2024 10:06:26 Closed fracture of left patella 5864441341 6047731 S82.015G upcoming ortho apptNWB till cleared by orthofollo w ortho recs and update with concerns Syndrome o f inappropriate vasopressin secretion 56682206 E22.2 now off fluid restrictio nmonitor Na and need to restart Essential hypertension 63507869 I10 lisinopril 5 mg qdmonitor bp and need to titrate [id number] HERNESTO ROSALES CNP [facility] [address] [address] 07/15/2024 12:24:15 07/16/2024 14:25:31 Hyponatremia 36821278 E87.1 S/t SIDAH, Lab result trending down, today Na was 131.Start fluid restrictio n 1800 ml /day.Will check lab, CBC, CMP weekly X4.Pt is asymptomat ic, continue monitor. Closed fra cture of left patella 0898741727 5892320 S82.015G prior fall with left knee fxFollowed up with ortho, cleared to WBAT LLE from 07/09/24.con tACL brace one more week.PT OT eval and tx. prn, currently on therapyWil l schedule for ortho follow up in [address] Lucero for rehab and pain management monitor pain control Unsteady when walking 22 408649 R26.89 Cleared by ortho for WBAT.Concepcion nue PT OT eval and treatment. monitor Adult fail ure to thrive syndrome 616219127 R62.7 doing well here overall, wt stablenot able to be cared for in community with tibia fxmonitor need for increased services in prep. for dischargec ontinue supportive care at facilitymo nitor weights, intake Mood disorder 66126510 F 34.89 with underlying anxiety, stable on ativan hereContin ue:ativan 0.5 mg bidzoloft 50 mg qdSeen by Psych provider 05/11, no new recommenda tionsMonit or mood, behaviors. [id number] HERNESTO ROSALES TIANNA [facility] [address] [address] 07/22/2024 10:40:07 07/24/2024 14:48:08 Hyponatremia 40095106 E87.1 S/t SIDAH, Lab result trending down, today Na was 129Reduce fluid restrictio n to 1500 ml /day. ? compliance .Will continue check lab, CBC, CMP weekly X3.Discuss ed with nursing staffs for hyponatrem ia and fluid restrictio n.Pt currently asymptomat ic. Will monitor closely.Jessie bergman consider to adjust her sertraline dosage. Closed fra cture of left patella [id number] S82.015G prior fall with left knee fxFollowed up with ortho, cleared to WBAT LLE from 07/09/24.con tACL brace loosened, and continues to use it when she ambulates. PT OT eval and tx. prn, currently on therapyWil l have ortho follow up in [address] Lucero for rehab and pain management monitor pain control Unsteady when walking 22 324854 R26.89 Cleared by ortho for WBAT.Concepcion nue PT OT eval and treatment. monitor Adult fail ure to thrive syndrome [id number] R62.7 doing well here overall, wt stablenot able to be cared for in community with tibia fxmonitor need for increased services in prep. [facility] Mood disorder 20885210 F 34.89 with underlying anxiety, stable on ativan hereContin ue:ativan 0.5 mg bidzoloft 50 mg qdSeen by Psych provider 05/11, no new recommenda tionsMonit or mood, behaviors. [id number] Radha Hickey, SHEBA [facility] [address] [address] 07/27/2024 12:24:14 07/29/2024 15:15:58 Hyponatremia [id number] E87.1 S/t SIDAH, Lab result trending down, [...] needed Closed fra cture of left patella [id number] S82.015G prior fall with left knee fxFollowed [...] monitor pain control Unsteady when walking 22 263002 R26.89 Cleared by ortho for WBAT.Concepcion nue PT OT eval and treatment. monitor Adult fail ure to thrive syndrome 608608740 R62.7 doing well here overall, wt stablenot able to be cared for in community with tibia fxmonitor need for increased services in prep. for dischargec [facility] nitor weights, intake Mood disorder 39285888 F 34.89 with underlying anxiety, stable on ativan hereContin ue:ativan 0.5 mg bidzoloft 50 mg qdpsych prnMonitor mood, behaviors. Insomnia 237290736 G47.0 0 pt with insomnia reports very little to no sleep overnight /24 start melatonin 5 mg po qhsmonitor for sleep [id number] Rad[facility] Hickey [facility] [address] 08/05/2024 17:02:47 08/07/2024 14:51:13 Closed fracture of left patella [id number] [id number] S82.015G prior fall with left knee fx [...] and pain management monitor pain control Insomnia 407022571 G47.0 0 sleep improvingc ontmelaton in 5 mg po qhsmonitor for sleep Hyponatremia 18979739 E8 7.1 S/t SIDAH, sodium boderline 131, actually trending upReduce fluid restrictio n to 1500 ml /day. ? compliance .nsg to follow for complaince CBC, CMP weekly X3.Discuss ed with nursing staffs for hyponatrem ia and fluid restrictio n.Pt currently asymptomat ic.monitor closely.Jessie bergman consider to adjust her sertraline dosage if needed Unsteady when walking 22 445430 R26.89 Cleared by ortho for WBAT.Concepcion nuePT OT eval and treatment. monitor Adult fail ure to thrive syndrome 227953402 R62.7 doing well here overall, wt stablenot able to be cared for in community with tibia fxmonitor need for increased services in prep. [facility], intake Mood disorder 40874426 F 34.89 with underlying anxiety, stable on ativan hereContin ue:ativan 0.5 mg bidzoloft 50 mg qdpsych prnMonitor mood, behaviors. [id number] MAYDA WHIPPLE NP [address] [address] 08/06/2024 13:31:04 08/10/2024 08:13:35 Closed fracture of left patella [id number] S82.015G prior fall with left knee fxFollowed up with ortho, cleared to [facility]AT LLE from 07/09/24.Con tinue brace with ambulation .PT OT eval and tx. prn, currently on program with PTOrtho follow up in place - should be soon.concepcion nue tramadol 50 mg po qd prn mod pain, not using lately.Miguel lowed by Dr. Lucero for rehab and pain management monitor Insomnia 477615587 G47.0 0 Newer complaintS tarted melatonin 5 mg po qhs 07/27No complaints now Hyponatremia 91161007 E8 7.1 SIDAHTrend ing Na levels, currently 131.Contin ue FR 1.5 L/d, ? compliance .Also on SSRI, monitor need to adjust Unsteady when walking 22 695488 R26.89 Cleared by ortho for WBAT.Concepcion nue PT OT eval and tx. prnmonitor Adult fail ure to thrive syndrome 210674930 R62.7 doing well here overall, wt stablenot able to be cared for in community with tibia fxmonitor need for increased services in prep. for [facility]c [facility] n[facility] weights, intake Mood disorder 85477813 F 34.89 with underlying anxiety, stable on ativan hereContin ue:ativan 0.5 mg bidzoloft 50 mg qdpsych prnMonitor mood, behaviors. [id number] Radha Hickey, SHEBA [facility] [address] 08/13/2024 08:38:03 08/17/2024 12:56:37 Closed fracture of left patella [id number] S82.015G prior fall with left knee fxFollowed [...] for rehab and pain management monitor Insomnia 288169944 G47.0 0 Newer complaintS tarted melatonin 5 mg po qhs 07/27 with good effectNo complaints now Hyponatremia 39391488 E8 7.1 SIDAHTrend ing Na levels, currently 131.4/10 decrease sertraline from 50 mg to 25 mgContinue FR 1.5 L/d, ? compliance .Also on SSRI, monitor need to adjust Unsteady when walking 22 280325 R26.89 Cleared by ortho for WBAT.Concepcion nue PT OT eval and tx.monitor Adult fail ure to thrive syndrome 115993113 R62.7 wt stable, seems to do wellnot able to be cared for in community with tibia fxmonitor need for increased services in prep. for dischargec [facility] at [facility] n[facility] weights, intake Mood disorder 86387066 F 34.89 with underlying anxiety, stable on [...] [place] [employer] Trevon L Lauren [id number] Trevon Lauren 07/22/2024 2 [place] [facility] Trevon Lauren [id number] Trevon Lauren 07/27/2024 1 [place] [employer] Trevon L Lauren [id number] Trevon Lauren 07/27/2024 2 [place] [facility] Trevon Lauren [id number] Trevon Lauren 08/05/2024 1 [place] [employer] Trevon L Lauren [id number] Trevon Lauren 08/05/2024 2 [place] [facility] [id number] Trevon Lauren 08/06/2024 1 [place] [employer] Trevon L Lauren [id number] Trevon Lauren 08/06/2024 2 [place] [facility] Trevon Luaren [id number] Trevon Lauren 08/13/2024 1 [place] [employer] Trevon L Lauren [id number] Trevon Lauren 08/13/2024 2 [place] [facility] Trevon Lauren [id number] Trevon Lauren Notes Date Note Type Note [...] Patient now off fluid restriction with recent Jd=443 on 07/09. Repeat lab on 07/15 and [...] SIADH,htn,anemia,copd ,osteoporosis,neuropa thy,mood disorder NOS HERNESTO ROSALES, [employer] [address], [address], [place], [address], [facility] [employer] 07/22/2024 11:42:39 07/27/2024 text/html Patient is a [...] is seen in her room resting in [facility]. Reports she over did it with therapy on top of no sleep overnight. She does have a slight swollen left patella today. She continues with tramadol prn for pain with helps. of note:Dx with adult FTT with noted hyponatremia due to SIADH, and hypokalemia improved with supplement and fluid restriction.Recent Nh=846 on 07/09. Repeat lab on 07/15 and [...] appointment scheduled yet. Radha Hickey NP [address] [facility], [address], [place], [address], [employer] 07/27/2024 14:02:30 08/05/2024 text/html Trevon is seen [...] and unlocked status. Radha Hickey NP [address], [address], [place], [address], [employer] 08/07/2024 09:31:24 08/06/2024 text/html Trevon is [...] thy,mood disorder NOS MAYDA WHIPPLE NP [address], [address], [place], [address], [facility] [employer] 08/06/2024 14:14:56 08/13/2024 text/html Trevon is seen t richie for an acute visit this am. PMH significant for SIADH,htn,anemia,copd ,osteoporosis,neuropa thy,mood disorder NOS She was seen by sports psychologist and rec decreasing sertraline from 50 to [...] and brace on. Radha Hickey NP [address], [address], [place], [address], [facility] [employer] 08/13/2024 09:27:25 OBGyn Episode No OBEpisode recorded.
--- OUTSIDE RECORDS SUMMARY | 2024-08-19 14:16 | XMS_ITS | Encounter Summary ---
Author Organization [facility] Address [address] [place] [address] Care Team Providers Care Fountain Waitress/Waiter Name Role Phone Alan Chanel MD Primary Care Provider Encounter Details Date Type Department Care Team (Late st Contact Info) Description 05/18/2024 Lab Requisition [facility] - Main Lab [address] [place] [address] Kenny Malave MD 38 [facility] [address] [place], [address] Essential (primary) hypertension Social History Tobacco [...] LAB CHEMISTRY METHOD 05/19/2024 8:54 AM EST [facility] Potassium 3.4(L) 3.5 - 5.5 mmol/L LAB CHEMISTRY METHOD 05/19/2024 8:54 AM EST [facility] Chloride 101 96 - 110 mmol/L LAB CHEMISTRY METHOD 05/19/2024 8:54 AM [facility] CO2 29 21 - 32 mmol/L LAB CHEMISTRY METHOD 05/19/2024 8:54 AM [facility] Anion Gap 4 3 - 11 LAB CHEMISTRY METHOD 05/19/2024 8:54 AM [facility] Glucose 87 70 - 100 mg/dL LAB CHEMISTRY METHOD 05/19/2024 8:54 AM [facility] BUN 15 5 - 25 mg/dL LAB CHEMISTRY METHOD 05/19/2024 8:54 AM [facility] Creatinine 0.60 0.50 - 1.10 mg/dL LAB CHEMISTRY METHOD 05/19/2024 8:54 AM [facility] eGFR 94 >=60 mL/min/1. 73m2 LAB CHEMISTRY METHOD 05/19/2024 8:54 AM [facility] Comment:Calculation based on the??Chronic Kidney Disease Epidemiology Collaboration (CKD-EPI) equation refit??without adjustment for race. BUN/Creatinine Ratio 25.0 LAB CHEMISTRY METHOD 05/19/2024 8:54 AM [facility] Calcium 9.1 8.5 - 10.5 mg/dL LAB CHEMISTRY METHOD 05/19/2024 8:54 AM [facility] Blood Venous blood specimen / Unknown Venipuncture / Unknown 05/19/2024 6:53 AM EST 05/19/2024 7:53 AM EST us Kenny Malave MD LAB BLOOD ORDERABLES Final Resul t [facility] [address] [place] [address], * (ABNORMAL) Complete blood count (05/19/2024 6:53 AM EST) WBC 5.0 4.8 - 10.8 K/[facility] LAB HEMETOLOGY METHOD 05/19/2024 8:33 AM [facility] RBC 4.00 3.80 - 4.80 M/[facility] LAB HEMETOLOGY METHOD 05/19/2024 8:33 AM [facility] Hemoglobin 11.0(L) 11.5 - 16.0 g/dL LAB HEMETOLOGY METHOD 05/19/2024 8:33 AM [facility] Hematocrit 33.7(L) 35.0 - 47.0 % LAB HEMETOLOGY METHOD 05/19/2024 8:33 AM [facility] MCV 85.3 79.0 - 98.0 FL LAB HEMETOLOGY METHOD 05/19/2024 8:33 AM [facility] MCH 27.8 27.0 - 32.0 pcg LAB HEMETOLOGY METHOD 05/19/2024 8:33 AM [facility] MCHC 32.6 32.0 - 37.0 g/dL LAB HEMETOLOGY METHOD 05/19/2024 8:33 AM [facility] RDW 15.0 11.0 - 15.0 % LAB HEMETOLOGY METHOD 05/19/2024 8:33 AM [facility] Platelets 527(H) 130 - 400 K/mcL LAB HEMETOLOGY METHOD 05/19/2024 8:33 AM [facility] MPV 8.5 7.0 - 11.0 FL LAB HEMETOLOGY METHOD 05/19/2024 8:33 AM [facility] NRBC 0.0 <1.0 % LAB HEMETOLOGY METHOD 05/19/2024 8:33 AM [facility] NRBC Absolute 0.00 <0.10 K/mcL LAB HEMETOLOGY METHOD 05/19/2024 8:33 AM [facility] Blood Venous blood specimen / Unknown Venipuncture / Unknown 05/19/2024 6:53 AM EST 05/19/2024 7:53 AM EST us Kenny Malave MD LAB BLOOD ORDERABLES Final Resul t [facility] ([facility] [address] [place] [address], documented in this encounter Visit Diagnoses Diagnosis Essential (primary) hypertension Unspecified essential hypertension documented in this encounter Care Teams Fountain Waitress/Waiter Relationship Specialty Start Date End Date Alan Chanel MD [address] [place] [address] Dr [address] [place], [place] PCP - General Internal Medicine 03/12/24 documented as of this encounter
--- OUTSIDE RECORDS SUMMARY | 2024-08-19 14:16 | XMS_ITS | Encounter Summary ---
Author Organization [facility] Address [address] [place] [address] Care Team Providers Care Circulation Manager Name Role Phone Alan Chanel MD Primary Care Provider Encounter Details Date Type Department Care Team (Late st Contact Info) Description 04/14/[address] [facility] - Main Lab [address] [facility] [place] [address] Ever Reyna MD [address] [place] [address] Encounter for other general examination Social History [...] LAB CHEMISTRY METHOD 04/14/2024 10:46 AM EST [facility] Urine Urine specimen obtained by clean catch procedure / Unknown Non-blood Collection / Unknown 04/14/2024 3:12 AM EST 04/14/2024 9:00 AM EST us Ever Reyna MD LAB URINE ORDERABLES Final Res ult Performing Organization Address City/[facility]/ZIP Co de Phone Number [facility] [address] [place] [address], [place] [phone] * (ABNORMAL) Osmolality, urine (04/14/2024 3:12 AM EST) Osmolality, Urine 258(L) 300 - 1,300 mOsm/kg LAB CHEMISTRY METHOD 04/14/2024 11:28 AM EST [facility] Urine Urine specimen obtained by clean catch procedure / Unknown Non-blood Collection / Unknown 04/14/2024 3:12 AM EST 04/14/2024 9:00 AM EST us Ever Reyna MD LAB URINE ORDERABLES Final Res ult Performing Organization Address [facility] Co de Phone Number [facility] [address] [place] [address], [place] [phone] documented in this encounter Visit Diagnoses Diagnosis Encounter for other general examination documented in this encounter Care Teams Circulation Manager Relationship Specialty Start Date End Date Alan Chanel MD [address] [place] [address] Dr Orell[address] [place] PCP - General Internal Medicine 03/12/24 documented as of this encounter
--- OUTSIDE RECORDS SUMMARY | 2024-08-19 14:16 | XMS_ITS | Encounter Summary ---
Author Organization [facility] Address [address] [place] [address] Care Team Providers Care Customer Service Cashier Name Role Phone Alan Chanel MD Primary Care Provider Encounter Details Date Type Department Care Team (Late st Contact Info) Description 07/25/2024 Lab Requisition [facility] [address] [place] [address] Kenny Malave MD 38 [facility] [address] [place], [address] Essential (primary) hypertension Social History Tobacco [...] LAB CHEMISTRY METHOD 07/27/2024 12:18 PM EDT [facility] Potassium 4.8 3.5 - 5.5 mmol/L LAB CHEMISTRY METHOD 07/27/2024 12:18 PM EDT [facility] Chloride 96 96 - 110 mmol/L LAB CHEMISTRY METHOD 07/27/2024 12:18 PM [facility] CO2 26 21 - 32 mmol/L LAB CHEMISTRY METHOD 07/27/2024 12:18 PM [facility] Anion Gap 7 3 - 11 LAB CHEMISTRY METHOD 07/27/2024 12:18 PM [facility] Glucose 81 70 - 100 mg/dL LAB CHEMISTRY METHOD 07/27/2024 12:18 PM [facility] BUN 20 5 - 25 mg/dL LAB CHEMISTRY METHOD 07/27/2024 12:18 PM [facility] Creatinine 0.66 0.50 - 1.10 mg/dL LAB CHEMISTRY METHOD 07/27/2024 12:18 PM [facility] eGFR 92 >=60 mL/min/1. 73m2 LAB CHEMISTRY METHOD 07/27/2024 12:18 PM [facility] Comment:Calculation based on the??Chronic Kidney Disease Epidemiology Collaboration (CKD-EPI) equation refit??without adjustment for race. BUN/Creatinine Ratio 30.3 LAB CHEMISTRY METHOD 07/27/2024 12:18 PM [facility] Calcium 9.6 8.5 - 10.5 mg/dL LAB CHEMISTRY METHOD 07/27/2024 12:18 PM [facility] AST (SGOT) 23 10 - 42 unit/L LAB CHEMISTRY METHOD 07/27/2024 12:18 PM [facility] ALT (SGPT) 19 10 - 60 unit/L LAB CHEMISTRY METHOD 07/27/2024 12:18 PM [facility] Alkaline Phosphatase 85 42 - 121 unit/L LAB CHEMISTRY METHOD 07/27/2024 12:18 PM [facility] Total Protein 7.2 6.0 - 8.0 g/dL LAB CHEMISTRY METHOD 07/27/2024 12:18 PM [facility] Albumin 3.6 3.2 - 5.0 g/dL LAB CHEMISTRY METHOD 07/27/2024 12:18 PM EDT [facility] Total Bilirubin 0.3 0.0 - 1.4 mg/dL LAB CHEMISTRY METHOD 07/27/2024 12:18 PM EDT [facility] Blood Venous blood specimen / Unknown Venipuncture / Unknown 07/27/2024 6:21 AM EDT 07/27/2024 11:11 AM EDT us Kenny Malave MD LAB BLOOD ORDERABLES Final Resul t [facility] [address] [place] [address], [place] [phone] * (ABNORMAL) Complete blood count (07/27/2024 6:21 AM EDT) WBC 3.9(L) 4.8 - 10.8 K/mcL LAB HEMETOLOGY METHOD 07/27/2024 11:56 AM [facility] RBC 3.80 3.80 - 4.80 M/mcL LAB HEMETOLOGY METHOD 07/27/2024 11:56 AM T [facility] Hemoglobin 10.9(L) 11.5 - 16.0 g/dL LAB HEMETOLOGY METHOD 07/27/2024 11:56 AM T [facility] Hematocrit 32.0(L) 35.0 - 47.0 % LAB HEMETOLOGY METHOD 07/27/2024 11:56 AM EDT [facility] MCV 84.7 79.0 - 98.0 FL LAB HEMETOLOGY METHOD 07/27/2024 11:56 AM [facility] MCH 28.8 27.0 - 32.0 pcg LAB HEMETOLOGY METHOD 07/27/2024 11:56 AM T [facility] MCHC 34.1 32.0 - 37.0 g/dL LAB HEMETOLOGY METHOD 07/27/2024 11:56 AM EDT [facility] RDW 15.9(H) 11.0 - 15.0 % LAB HEMETOLOGY METHOD 07/27/2024 11:56 AM EDT [facility] Platelets 423(H) 130 - 400 K/mcL LAB HEMETOLOGY METHOD 07/27/2024 11:56 AM EDT [facility] MPV 8.2 7.0 - 11.0 FL LAB HEMETOLOGY METHOD 07/27/2024 11:56 AM EDT [facility] NRBC 0.0 <1.0 % LAB HEMETOLOGY METHOD 07/27/2024 11:56 AM EDT [facility] NRBC Absolute 0.00 <0.10 K/mcL LAB HEMETOLOGY METHOD 07/27/2024 11:56 AM EDT [facility] Blood Venous blood specimen / Unknown Venipuncture / Unknown 07/27/2024 6:21 AM EDT 07/27/2024 11:11 AM EDT us Kenny Malave MD LAB BLOOD ORDERABLES Final Resul t [facility] [address] [place] [address], documented in this encounter Visit Diagnoses Diagnosis Essential (primary) hypertension Unspecified essential hypertension documented in this encounter Care Teams Customer Service Cashier Relationship Specialty Start Date End Date Alan Chanel MD [address] [place] [address] Dr Orellana [facility] MAGEN Kruger PCP - General Internal Medicine 03/12/24 documented as of this encounter
--- OUTSIDE RECORDS SUMMARY | 2024-08-19 14:16 | XMS_ITS | Encounter Summary ---
Author Organization [facility] Address [address] [place] [address] Care Team Providers Care Violin Teacher Name Role Phone Alan Chanel MD Primary Care Provider Encounter Details Date Type Department Care Team (Late st Contact Info) Description 04/14/2024 Lab Requisition [facility] - Main Lab [address] [place] [address] Ever Reyna MD [address] [place] [address] Encounter for other general examination Social History [...] LAB CHEMISTRY METHOD 04/14/2024 11:19 AM EST [facility] Blood Venous blood specimen / Unknown Venipuncture / Unknown 04/14/2024 4:35 AM EST 04/14/2024 9:55 AM EST us Ever Reyna MD LAB BLOOD ORDERABLES Final Res ult [facility] [address] [place] [address], * (ABNORMAL) Basic metabolic panel (04/14/2024 4:35 AM EST) Sodium 128(L) 133 - 145 mmol/L LAB CHEMISTRY METHOD 04/14/2024 10:39 AM [facility] Potassium 4.3 3.5 - 5.5 mmol/L LAB CHEMISTRY METHOD 04/14/2024 10:39 AM [facility] Chloride 91(L) 96 - 110 mmol/L LAB CHEMISTRY METHOD 04/14/2024 10:39 AM [facility] CO2 26 21 - 32 mmol/L LAB CHEMISTRY METHOD 04/14/2024 10:39 AM [facility] Anion Gap 11 3 - 11 LAB CHEMISTRY METHOD 04/14/2024 10:39 AM [facility] Glucose 71 70 - 100 mg/dL LAB CHEMISTRY METHOD 04/14/2024 10:39 AM [facility] BUN 14 5 - 25 mg/dL LAB CHEMISTRY METHOD 04/14/2024 10:39 AM [facility] Creatinine 0.60(L) 0.70 - 1.30 mg/dL LAB CHEMISTRY METHOD 04/14/2024 10:39 AM [facility] eGFR 101 >=60 mL/min/1. 73m2 LAB CHEMISTRY METHOD 04/14/2024 10:39 AM [facility] Comment:Calculation based on the??Chronic Kidney Disease Epidemiology Collaboration (CKD-EPI) equation refit??without adjustment for race. BUN/Creatinine Ratio 23.3 LAB CHEMISTRY METHOD 04/14/2024 10:39 AM [facility] Calcium 9.4 8.5 - 10.5 mg/dL LAB CHEMISTRY METHOD 04/14/2024 10:39 AM EST [facility] Blood Venous blood specimen / Unknown Venipuncture / Unknown 04/14/2024 4:35 AM EST 04/14/2024 9:55 AM EST us Ever Reyna MD LAB BLOOD ORDERABLES Final Res ult [facility] [address] [place] [address], documented in this encounter Visit Diagnoses Diagnosis Encounter for other general examination documented in this encounter Care Teams Violin Teacher Relationship Specialty Start Date End Date Alan Chanel MD [address] [place] [address] Dr Orell[address] [place] PCP - General Internal Medicine 03/12/24 documented as of this encounter
--- OUTSIDE RECORDS SUMMARY | 2024-08-19 14:16 | XMS_ITS | Encounter Summary ---
Author Organization [facility] Address [address] [place] [address] Care Team Providers Care Health Services Information Specialist Name Role Phone Alan Chanel MD Primary Care Provider Encounter Details Date Type Department Care Team (Late st Contact Info) Description 05/04/2024 Lab Requisition [facility] Lab [address] [place] [address] Kenny Malave MD 38 [facility] [address] [place], [address] Essential (primary) hypertension Social History Tobacco [...] mmol/L LAB CHEMISTRY METHOD 05/05/2024 10:55 AM [facility] CO2 29 21 - 32 mmol/L LAB CHEMISTRY METHOD 05/05/2024 10:55 AM [facility] Anion Gap 7 3 - 11 LAB CHEMISTRY METHOD 05/05/2024 10:55 AM [facility] Glucose 89 70 - 100 mg/dL LAB CHEMISTRY METHOD 05/05/2024 10:55 AM [facility] BUN 16 5 - 25 mg/dL LAB CHEMISTRY METHOD 05/05/2024 10:55 AM [facility] Creatinine 0.61 0.50 - 1.10 mg/dL LAB CHEMISTRY METHOD 05/05/2024 10:55 AM [facility] eGFR 94 >=60 mL/min/1. 73m2 LAB CHEMISTRY METHOD 05/05/2024 10:55 AM [facility] Comment:Calculation based on the??Chronic Kidney Disease Epidemiology Collaboration (CKD-EPI) equation refit??without adjustment for race. BUN/Creatinine Ratio 26.2 LAB CHEMISTRY METHOD 05/05/2024 10:55 AM [facility] Calcium 8.9 8.5 - 10.5 mg/dL LAB CHEMISTRY METHOD 05/05/2024 10:55 AM [facility] Blood Venous blood specimen / Unknown Venipuncture / Unknown 05/05/2024 6:32 AM EST 05/05/2024 10:13 AM EST us Kenny Malave MD LAB BLOOD ORDERABLES Final Resul t [facility] LAB [address] [place] [address], * (ABNORMAL) Complete blood count (05/05/2024 6:32 AM EST) WBC 6.4 4.8 - 10.8 K/mcL LAB HEMETOLOGY METHOD 05/05/2024 10:59 AM [facility] RBC 3.90 3.80 - 4.80 M/mcL LAB HEMETOLOGY METHOD 05/05/2024 10:59 AM [facility] Hemoglobin 10.7(L) 11.5 - 16.0 g/dL LAB HEMETOLOGY METHOD 05/05/2024 10:59 AM [facility] Hematocrit 32.7(L) 35.0 - 47.0 % LAB HEMETOLOGY METHOD 05/05/2024 10:59 AM [facility] MCV 84.3 79.0 - 98.0 FL LAB HEMETOLOGY METHOD 05/05/2024 10:59 AM [facility] MCH 27.6 27.0 - 32.0 pcg LAB HEMETOLOGY METHOD 05/05/2024 10:59 AM [facility] MCHC 32.7 32.0 - 37.0 g/dL LAB HEMETOLOGY METHOD 05/05/2024 10:59 AM [facility] RDW 13.2 11.0 - 15.0 % LAB HEMETOLOGY METHOD 05/05/2024 10:59 AM [facility] Platelets 551(H) 130 - 400 K/mcL LAB HEMETOLOGY METHOD 05/05/2024 10:59 AM [facility] MPV 8.5 7.0 - 11.0 FL LAB HEMETOLOGY METHOD 05/05/2024 10:59 AM [facility] NRBC 0.0 <1.0 % LAB HEMETOLOGY METHOD 05/05/2024 10:59 AM [facility] LAB NRBC Absolute 0.00 <0.10 K/mcL LAB HEMETOLOGY METHOD 05/05/2024 10:59 AM [facility] Blood Venous blood specimen / Unknown Venipuncture / Unknown 05/05/2024 6:32 AM EST 05/05/2024 10:14 AM EST us Kenny Malave MD LAB BLOOD ORDERABLES Final Resul t [facility] LAB [address] [place] [address], documented in this encounter Visit Diagnoses Diagnosis Essential (primary) hypertension Unspecified essential hypertension documented in this encounter Care Teams Health Services Information Specialist Relationship Specialty Start Date End Date Alan Chanel MD [address] [place] [address] Dr [address] [place], [place] PCP - General Internal Medicine 03/12/24 documented as of this encounter
--- OUTSIDE RECORDS SUMMARY | 2024-08-19 14:16 | XMS_ITS | Encounter Summary ---
Author Organization [facility] Address [address] [place] [address] Care Team Providers Care Software Development Coordinator Name Role Phone Alan Chanel MD Primary Care Provider Encounter Details Date Type Department Care Team (Late st Contact Info) Description 07/14/2024 Lab Requisition [facility] Lab [address] [place] [address] Kenny Malave MD 38 [facility] [address] [place], [address] Chronic kidney disease, unspecified Social History [...] LAB CHEMISTRY METHOD 07/15/2024 10:42 AM EDT [facility] Potassium 4.6 3.5 - 5.5 mmol/L LAB CHEMISTRY METHOD 07/15/2024 10:42 AM EDT [facility] Chloride 96 96 - 110 mmol/L LAB CHEMISTRY METHOD 07/15/2024 10:42 AM [facility] CO2 24 21 - 32 mmol/L LAB CHEMISTRY METHOD 07/15/2024 10:42 AM [facility] Anion Gap 11 3 - 11 LAB CHEMISTRY METHOD 07/15/2024 10:42 AM [facility] Glucose 76 70 - 100 mg/dL LAB CHEMISTRY METHOD 07/15/2024 10:42 AM [facility] BUN 20 5 - 25 mg/dL LAB CHEMISTRY METHOD 07/15/2024 10:42 AM [facility] Creatinine 0.71 0.50 - 1.10 mg/dL LAB CHEMISTRY METHOD 07/15/2024 10:42 AM [facility] eGFR 89 >=60 mL/min/1. 73m2 LAB CHEMISTRY METHOD 07/15/2024 10:42 AM [facility] LAB Comment:Calculation based on the??Chronic Kidney Disease Epidemiology Collaboration (CKD-EPI) equation refit??without adjustment for race. BUN/Creatinine Ratio 28.2 LAB CHEMISTRY METHOD 07/15/2024 10:42 AM [facility] Calcium 9.5 8.5 - 10.5 mg/dL LAB CHEMISTRY METHOD 07/15/2024 10:42 AM [facility] AST (SGOT) 27 10 - 42 unit/L LAB CHEMISTRY METHOD 07/15/2024 10:42 AM [facility] ALT (SGPT) 22 10 - 60 unit/L LAB CHEMISTRY METHOD 07/15/2024 10:42 AM [facility] Alkaline Phosphatase 72 42 - 121 unit/L LAB CHEMISTRY METHOD 07/15/2024 10:42 AM [facility] Total Protein 7.4 6.0 - 8.0 g/dL LAB CHEMISTRY METHOD 07/15/2024 10:42 AM [facility] Albumin 3.7 3.2 - 5.0 g/dL LAB CHEMISTRY METHOD 07/15/2024 10:42 AM EDT [facility] Total Bilirubin 0.3 0.0 - 1.4 mg/dL LAB CHEMISTRY METHOD 07/15/2024 10:42 AM EDT [facility] Blood Venous blood specimen / Unknown Venipuncture / Unknown 07/15/2024 6:23 AM EDT 07/15/2024 9:55 AM EDT us Kenny Malave MD LAB BLOOD ORDERABLES Final Resul t [facility] [address] [place] [address], [place] [phone] * (ABNORMAL) Complete blood count (07/15/2024 6:23 AM EDT) WBC 4.5(L) 4.8 - 10.8 K/mcL LAB HEMETOLOGY METHOD 07/15/2024 10:17 AM [facility] RBC 3.80 3.80 - 4.80 M/mcL LAB HEMETOLOGY METHOD 07/15/2024 10:17 AM [facility] Hemoglobin 10.8(L) 11.5 - 16.0 g/dL LAB HEMETOLOGY METHOD 07/15/2024 10:17 AM [facility] Hematocrit 32.2(L) 35.0 - 47.0 % LAB HEMETOLOGY METHOD 07/15/2024 10:17 AM [facility] MCV 85.0 79.0 - 98.0 FL LAB HEMETOLOGY METHOD 07/15/2024 10:17 AM [facility] MCH 28.5 27.0 - 32.0 pcg LAB HEMETOLOGY METHOD 07/15/2024 10:17 AM [facility] MCHC 33.5 32.0 - 37.0 g/dL LAB HEMETOLOGY METHOD 07/15/2024 10:17 AM EDT [facility] RDW 17.1(H) 11.0 - 15.0 % LAB HEMETOLOGY METHOD 07/15/2024 10:17 AM EDT [facility] Platelets 516(H) 130 - 400 K/mcL LAB HEMETOLOGY METHOD 07/15/2024 10:17 AM EDT [facility] MPV 8.2 7.0 - 11.0 FL LAB HEMETOLOGY METHOD 07/15/2024 10:17 AM EDT [facility] NRBC 0.0 <1.0 % LAB HEMETOLOGY METHOD 07/15/2024 10:17 AM EDT [facility] NRBC Absolute 0.00 <0.10 K/mcL LAB HEMETOLOGY METHOD 07/15/2024 10:17 AM EDT [facility] Blood Venous blood specimen / Unknown Venipuncture / Unknown 07/15/2024 6:23 AM EDT 07/15/2024 9:55 AM EDT us Kenny Malave MD LAB BLOOD ORDERABLES Final Resul t [facility] [address] [place] [address], documented in this encounter Visit Diagnoses Diagnosis Chronic kidney disease, unspecified documented in this encounter Care Teams Software Development Coordinator Relationship Specialty Start Date End Date Alan Chanel MD [address] [facility] [address] Orell[address] [facility] MAGEN Kruger PCP - General Internal Medicine 03/12/24 documented as of this encounter
--- OUTSIDE RECORDS SUMMARY | 2024-08-19 14:16 | XMS_ITS | Encounter Summary ---
Author Organization [facility] Address [address] [place] [address] Care Team Providers Care Qa Automation Architect Name Role Phone Alan Chanel MD Primary Care Provider [phone] Encounter Details Date Type Department Care Team (Late st Contact Info) Description 07/20/2024 Lab Requisition [facility] Lab [address] [place] [address] Kenny Malave MD 38 [facility] [address] [place], [address] Essential (primary) hypertension Social History Tobacco [...] LAB CHEMISTRY METHOD 07/20/2024 11:53 AM EDT [facility] Potassium 4.3 3.5 - 5.5 mmol/L LAB CHEMISTRY METHOD 07/20/2024 11:53 AM EDT [facility] Chloride 95(L) 96 - 110 mmol/L LAB CHEMISTRY METHOD 07/20/2024 11:53 AM [facility] CO2 25 21 - 32 mmol/L LAB CHEMISTRY METHOD 07/20/2024 11:53 AM [facility] Anion Gap 9 3 - 11 LAB CHEMISTRY METHOD 07/20/2024 11:53 AM [facility] Glucose 64(L) 70 - 100 mg/dL LAB CHEMISTRY METHOD 07/20/2024 11:53 AM [facility] BUN 19 5 - 25 mg/dL LAB CHEMISTRY METHOD 07/20/2024 11:53 AM [facility] Creatinine 0.61 0.50 - 1.10 mg/dL LAB CHEMISTRY METHOD 07/20/2024 11:53 AM [facility] eGFR 94 >=60 mL/min/1. 73m2 LAB CHEMISTRY METHOD 07/20/2024 11:53 AM [facility] Comment:Calculation based on the??Chronic Kidney Disease Epidemiology Collaboration (CKD-EPI) equation refit??without adjustment for race. BUN/Creatinine Ratio 31.1 LAB CHEMISTRY METHOD 07/20/2024 11:53 AM [facility] Calcium 9.4 8.5 - 10.5 mg/dL LAB CHEMISTRY METHOD 07/20/2024 11:53 AM [facility] AST (SGOT) 22 10 - 42 unit/L LAB CHEMISTRY METHOD 07/20/2024 11:53 AM [facility] ALT (SGPT) 18 10 - 60 unit/L LAB CHEMISTRY METHOD 07/20/2024 11:53 AM [facility] Alkaline Phosphatase 80 42 - 121 unit/L LAB CHEMISTRY METHOD 07/20/2024 11:53 AM [facility] Total Protein 7.2 6.0 - 8.0 g/dL LAB CHEMISTRY METHOD 07/20/2024 11:53 AM [facility] Albumin 3.7 3.2 - 5.0 g/dL LAB CHEMISTRY METHOD 07/20/2024 11:53 AM [facility] Total Bilirubin 0.3 0.0 - 1.4 mg/dL LAB CHEMISTRY METHOD 07/20/2024 11:53 AM [facility] Blood Venous blood specimen / Unknown Venipuncture / Unknown 07/20/2024 6:14 AM EDT 07/20/2024 10:31 AM EDT us Kenny Malave MD LAB BLOOD ORDERABLES Final Resul t [facility] [address] [place] [address], [place] [phone] * (ABNORMAL) Complete blood count (07/20/2024 6:14 AM EDT) WBC 5.3 4.8 - 10.8 K/mcL LAB HEMETOLOGY METHOD 07/20/2024 11:31 AM [facility] RBC 3.70(L) 3.80 - 4.80 M/mcL LAB HEMETOLOGY METHOD 07/20/2024 11:31 AM [facility] Hemoglobin 10.7(L) 11.5 - 16.0 g/dL LAB HEMETOLOGY METHOD 07/20/2024 11:31 AM [facility] Hematocrit 32.1(L) 35.0 - 47.0 % LAB HEMETOLOGY METHOD 07/20/2024 11:31 AM [facility] MCV 85.8 79.0 - 98.0 FL LAB HEMETOLOGY METHOD 07/20/2024 11:31 AM [facility] MCH 28.6 27.0 - 32.0 pcg LAB HEMETOLOGY METHOD 07/20/2024 11:31 AM [facility] MCHC 33.3 32.0 - 37.0 g/dL LAB HEMETOLOGY METHOD 07/20/2024 11:31 AM EDT [facility] RDW 17.0(H) 11.0 - 15.0 % LAB HEMETOLOGY METHOD 07/20/2024 11:31 AM EDT [facility] Platelets 479(H) 130 - 400 K/mcL LAB HEMETOLOGY METHOD 07/20/2024 11:31 AM EDT [facility] MPV 8.2 7.0 - 11.0 FL LAB HEMETOLOGY METHOD 07/20/2024 11:31 AM EDT [facility] NRBC 0.0 <1.0 % LAB HEMETOLOGY METHOD 07/20/2024 11:31 AM EDT [facility] NRBC Absolute 0.00 <0.10 K/mcL LAB HEMETOLOGY METHOD 07/20/2024 11:31 AM EDT [facility] Blood Venous blood specimen / Unknown Venipuncture / Unknown 07/20/2024 6:14 AM EDT 07/20/2024 10:31 AM EDT us Kenny Malave MD LAB BLOOD ORDERABLES Final Resul t [facility] [address] [place] [address], documented in this encounter Visit Diagnoses Diagnosis Essential (primary) hypertension Unspecified essential hypertension documented in this encounter Care Teams Qa Automation Architect Relationship Specialty Start Date End Date Alan Chanel MD [address] [place] [address] Dr Orellana [facility] [place] MAGEN Kruger PCP - General Internal Medicine 03/12/24 documented as of this encounter
--- OUTSIDE RECORDS SUMMARY | 2024-08-19 14:16 | XMS_ITS | Encounter Summary ---
Author Organization [facility] Address [address] [place] [address] Care Team Providers Care Laster Hand Name Role Phone Alan Chanel MD Primary Care Provider Encounter Details Date Type Department Care Team (Late st Contact Info) Description 04/15/2024 Lab Requisition [facility] Lab [address] [facility] [place] [address] Ever Reyna MD [address] [place] [phone] Encounter for other general examination Social History [...] LAB CHEMISTRY METHOD 04/15/2024 11:04 AM EST [facility] Potassium 4.4 3.5 - 5.5 mmol/L LAB CHEMISTRY METHOD 04/15/2024 11:04 AM EST [facility] Chloride 96 96 - 110 mmol/L LAB CHEMISTRY METHOD 04/15/2024 11:04 AM EST [facility] CO2 25 21 [...] MD LAB BLOOD ORDERABLES Final Res ult [facility] [address] [place] [address], [place] [phone] documented in this encounter Visit Diagnoses Diagnosis Encounter for other general examination documented in this encounter Care Teams Laster Hand Relationship Specialty Start Date End Date Alan Chanel MD [address] [place] [address] [address] [place] PCP - General Internal Medicine 03/12/24 documented as of this encounter
--- OUTSIDE RECORDS SUMMARY | 2024-08-19 14:16 | XMS_ITS | Encounter Summary ---
Author Organization [facility] Address [address] [place] [address] Care Team Providers Care Physical Therapist Center Manager Name Role Phone Alan Chanel MD Primary Care Provider Encounter Details Date Type Department Care Team (Late st Contact Info) Description 04/21/2024 Lab Requisition [facility] Lab [address] [place] [address] Ever Reyna MD [address] [place] [address] Encounter for other general examination Social History [...] LAB CHEMISTRY METHOD 04/21/2024 10:03 AM EST [facility] Blood Venous blood specimen / Unknown Venipuncture / Unknown 04/21/2024 6:13 AM EST 04/21/2024 8:46 AM EST us Ever Reyna MD LAB BLOOD ORDERABLES Final Res ult Performing Organization Address [facility]/ZIP Co de Phone Number [facility] [address] [place] [address], [place] [phone] * Amylase (04/21/2024 6:13 AM EST) [facility] Amylase 51 25 - 115 unit/L LAB CHEMISTRY METHOD 04/21/2024 10:03 AM [facility] LAB Blood Venous blood specimen / Unknown Venipuncture / Unknown 04/21/2024 6:13 AM EST 04/21/2024 8:46 AM EST us Ever Reyna MD LAB BLOOD ORDERABLES Final Res ult Performing Organization Address [facility] Co de Phone Number [facility] [address] [place] [address], [place] [phone] * (ABNORMAL) Comprehensive metabolic panel (04/21/2024 6:13 AM EST) [facility] Sodium 126(L) 133 - 145 mmol/L LAB CHEMISTRY METHOD 04/21/2024 10:06 AM [facility] LAB Potassium 3.7 3.5 - 5.5 mmol/L LAB CHEMISTRY METHOD 04/21/2024 10:06 AM [facility] Chloride 91(L) 96 - 110 mmol/L LAB CHEMISTRY METHOD 04/21/2024 10:06 AM [facility] CO2 26 21 - 32 mmol/L LAB CHEMISTRY METHOD 04/21/2024 10:06 AM [facility] Anion Gap 9 3 - 11 LAB CHEMISTRY METHOD 04/21/2024 10:06 AM [facility] Glucose 82 70 - 100 mg/dL LAB CHEMISTRY METHOD 04/21/2024 10:06 AM [facility] BUN 10 5 - 25 mg/dL LAB CHEMISTRY METHOD 04/21/2024 10:06 AM [facility] Creatinine 0.67(L) 0.70 - 1.30 mg/dL LAB CHEMISTRY METHOD 04/21/2024 10:06 AM [facility] LAB eGFR 98 >=60 mL/min/1. 73m2 LAB CHEMISTRY METHOD 04/21/2024 10:06 AM [facility] LAB Comment:Calculation based on the??Chronic Kidney Disease Epidemiology Collaboration (CKD-EPI) equation refit??without adjustment for race. BUN/Creatinine Ratio 14.9 LAB CHEMISTRY METHOD 04/21/2024 10:06 AM [facility] Calcium 8.8 8.5 - 10.5 mg/dL LAB CHEMISTRY METHOD 04/21/2024 10:06 AM [facility] AST (SGOT) 208(H) 10 - 42 unit/L LAB CHEMISTRY METHOD 04/21/2024 10:06 AM [facility] ALT (SGPT) 210(H) 10 - 60 unit/L LAB CHEMISTRY METHOD 04/21/2024 10:06 AM [facility] Alkaline Phosphatase 210(H) 42 - 121 unit/L LAB CHEMISTRY METHOD 04/21/2024 10:06 AM [facility] Total Protein 6.5 6.0 - 8.0 g/dL LAB CHEMISTRY METHOD 04/21/2024 10:06 AM [facility] Albumin 3.2 3.2 - 5.0 g/dL LAB CHEMISTRY METHOD 04/21/2024 10:06 AM [facility] Total Bilirubin 0.3 0.0 - 1.4 mg/dL LAB CHEMISTRY METHOD 04/21/2024 10:06 AM [facility] LAB Blood Venous blood specimen / Unknown Venipuncture / Unknown 04/21/2024 6:13 AM EST 04/21/2024 8:46 AM EST us Ever Reyna MD LAB BLOOD ORDERABLES Final Res ult [facility] ([facility] [address] [place] [address], documented in this encounter Visit Diagnoses Diagnosis Encounter for other general examination documented in this encounter Care Teams Physical Therapist Center Manager Relationship Specialty Start Date End Date Alan Chanel MD [address] [place] [address] Dr [address] [place], [place] PCP - General Internal Medicine 03/12/24 documented as of this encounter
--- OUTSIDE RECORDS SUMMARY | 2024-08-19 14:16 | XMS_ITS | Encounter Summary ---
Author Organization [facility] Address [address] [place] [address] Care Team Providers Care Still Operator Batch Or Continuous Name Role Phone Alan Chanel MD Primary Care Provider [phone] Encounter Details Date Type Department Care Team (Late st Contact Info) Description 07/13/2024 Lab Requisition [facility] Lab 299 [facility] [place] [address] Kenny Malave MD 38 [facility] [address] [place], [address] Anemia, unspecified; Chronic obstructive pulmonary disease, [...] mg/dL LAB CHEMISTRY METHOD 07/14/2024 9:15 AM [facility] LAB Blood Venous blood specimen / Unknown Venipuncture / Unknown 07/14/2024 5:07 AM EDT 07/14/2024 7:45 AM EDT us Kenny Malave MD LAB BLOOD ORDERABLES Final Resul t [facility] [address] [place] [address], [place] [phone] * (ABNORMAL) Comprehensive metabolic panel (07/14/2024 5:07 AM EDT) [facility] Sodium 130(L) 133 - 145 mmol/L LAB CHEMISTRY METHOD 07/14/2024 9:15 AM [facility] Potassium 4.6 3.5 - 5.5 mmol/L LAB CHEMISTRY METHOD 07/14/2024 9:15 AM [facility] Chloride 95(L) 96 - 110 mmol/L LAB CHEMISTRY METHOD 07/14/2024 9:15 AM [facility] CO2 27 21 - 32 mmol/L LAB CHEMISTRY METHOD 07/14/2024 9:15 AM [facility] Anion Gap 8 3 - 11 LAB CHEMISTRY METHOD 07/14/2024 9:15 AM [facility] Glucose 79 70 - 100 mg/dL LAB CHEMISTRY METHOD 07/14/2024 9:15 AM [facility] BUN 20 5 - 25 mg/dL LAB CHEMISTRY METHOD 07/14/2024 9:15 AM [facility] Creatinine 0.63 0.50 - 1.10 mg/dL LAB CHEMISTRY METHOD 07/14/2024 9:15 AM [facility] LAB eGFR 93 >=60 mL/min/1. 73m2 LAB CHEMISTRY METHOD 07/14/2024 9:15 AM T [facility] Comment:Calculation based on the??Chronic Kidney Disease Epidemiology Collaboration (CKD-EPI) equation refit??without adjustment for race. BUN/Creatinine Ratio 31.7 LAB CHEMISTRY METHOD 07/14/2024 9:15 AM EDT [facility] Calcium 9.8 8.5 - 10.5 mg/dL LAB CHEMISTRY METHOD 07/14/2024 9:15 AM [facility] AST (SGOT) 23 10 - 42 unit/L LAB CHEMISTRY METHOD 07/14/2024 9:15 AM [facility] ALT (SGPT) 22 10 - 60 unit/L LAB CHEMISTRY METHOD 07/14/2024 9:15 AM [facility] Alkaline Phosphatase 76 42 - 121 unit/L LAB CHEMISTRY METHOD 07/14/2024 9:15 AM [facility] Total Protein 7.3 6.0 - 8.0 g/dL LAB CHEMISTRY METHOD 07/14/2024 9:15 AM [facility] Albumin 3.7 3.2 - 5.0 g/dL LAB CHEMISTRY METHOD 07/14/2024 9:15 AM [facility] Total Bilirubin 0.3 0.0 - 1.4 mg/dL LAB CHEMISTRY METHOD 07/14/2024 9:15 AM [facility] Blood Venous blood specimen / Unknown Venipuncture / Unknown 07/14/2024 5:07 AM EDT 07/14/2024 7:45 AM EDT us Kenny Malave MD LAB BLOOD ORDERABLES Final Resul t [facility] [address] [place] [address], [place] [phone] * (ABNORMAL) Complete blood count (07/14/2024 5:07 AM EDT) WBC 3.9(L) 4.8 - 10.8 K/mcL LAB HEMETOLOGY METHOD 07/14/2024 8:49 AM [facility] RBC 3.90 3.80 - 4.80 M/mcL LAB HEMETOLOGY METHOD 07/14/2024 8:49 AM [facility] Hemoglobin 11.2(L) 11.5 - 16.0 g/dL LAB HEMETOLOGY METHOD 07/14/2024 8:49 AM [facility] Hematocrit 33.5(L) 35.0 - 47.0 % LAB HEMETOLOGY METHOD 07/14/2024 8:49 AM [facility] MCV 85.2 79.0 - 98.0 FL LAB HEMETOLOGY METHOD 07/14/2024 8:49 AM [facility] MCH 28.5 27.0 - 32.0 pcg LAB HEMETOLOGY METHOD 07/14/2024 8:49 AM [facility] MCHC 33.4 32.0 - 37.0 g/dL LAB HEMETOLOGY METHOD 07/14/2024 8:49 AM [facility] RDW 17.1(H) 11.0 - 15.0 % LAB HEMETOLOGY METHOD 07/14/2024 8:49 AM [facility] Platelets 539(H) 130 - 400 K/[facility] LAB HEMETOLOGY METHOD 07/14/2024 8:49 AM [facility] MPV 8.2 7.0 - 11.0 FL LAB HEMETOLOGY METHOD 07/14/2024 8:49 AM [facility] NRBC 0.0 <1.0 % LAB HEMETOLOGY METHOD 07/14/2024 8:49 AM [facility] NRBC Absolute 0.00 <0.10 K/mcL LAB HEMETOLOGY METHOD 07/14/2024 8:49 AM EDT [facility] Blood Venous blood specimen / Unknown Venipuncture / Unknown 07/14/2024 5:07 AM EDT 07/14/2024 7:45 AM EDT us Kenny Malave MD LAB BLOOD ORDERABLES Final Resul t [facility] [address] [place] [address], documented in this encounter Visit Diagnoses Diagnosis Anemia, unspecified Chronic obstructive pulmonary disease, unspecified (CMS/HCC V24, CMS/HCC V28) documented in this encounter Care Teams Still Operator Batch Or Continuous Relationship Specialty Start Date End Date Alan Chanel MD [address] [place] [address] [address] [place], [place] PCP - General Internal Medicine 03/12/24 documented as of this encounter
--- OUTSIDE RECORDS SUMMARY | 2024-08-19 14:16 | XMS_ITS | Encounter Summary ---
Author Organization [facility] Address [address] [place] [address] Care Team Providers Care Manager E Learning Name Role Phone Alan Chanel MD Primary Care Provider Encounter Details Date Type Department Care Team (Late st Contact Info) Description 07/08/2024 Lab Requisition [facility] - Main Lab [address] [place] [address] Kenny Malave MD 38 [facility] [address] [place], [address] Anemia, unspecified; Chronic obstructive pulmonary disease, [...] mg/dL LAB CHEMISTRY METHOD 07/08/2024 2:39 PM [facility] Blood Venous blood specimen / Unknown Venipuncture / Unknown 07/08/2024 6:23 AM EST 07/08/2024 10:53 AM EST us Kenny Malave MD LAB BLOOD ORDERABLES Final Resul t [facility] [address] [place] [address], [place] [phone] * (ABNORMAL) Comprehensive metabolic panel (07/08/2024 6:23 AM EST) [facility] Sodium 132(L) 133 - 145 mmol/L LAB CHEMISTRY METHOD 07/08/2024 2:39 PM [facility] Potassium 4.7 3.5 - 5.5 mmol/L LAB CHEMISTRY METHOD 07/08/2024 2:39 PM [facility] Chloride 98 96 - 110 mmol/L LAB CHEMISTRY METHOD 07/08/2024 2:39 PM [facility] CO2 23 21 - 32 mmol/L LAB CHEMISTRY METHOD 07/08/2024 2:39 PM [facility] Anion Gap 11 3 - 11 LAB CHEMISTRY METHOD 07/08/2024 2:39 PM [facility] Glucose 72 70 - 100 mg/dL LAB CHEMISTRY METHOD 07/08/2024 2:39 PM [facility] BUN 16 5 - 25 mg/dL LAB CHEMISTRY METHOD 07/08/2024 2:39 PM [facility] Creatinine 0.61 0.50 - 1.10 mg/dL LAB CHEMISTRY METHOD 07/08/2024 2:39 PM [facility] eGFR 94 >=60 mL/min/1. 73m2 LAB CHEMISTRY METHOD 07/08/2024 2:39 PM [facility] Comment:Calculation based on the??Chronic Kidney Disease Epidemiology Collaboration (CKD-EPI) equation refit??without adjustment for race. BUN/Creatinine Ratio 26.2 LAB CHEMISTRY METHOD 07/08/2024 2:39 PM [facility] Calcium 9.5 8.5 - 10.5 mg/dL LAB CHEMISTRY METHOD 07/08/2024 2:39 PM [facility] AST (SGOT) 28 10 - 42 unit/L LAB CHEMISTRY METHOD 07/08/2024 2:39 PM [facility] ALT (SGPT) 22 10 - 60 unit/L LAB CHEMISTRY METHOD 07/08/2024 2:39 PM [facility] Alkaline Phosphatase 79 42 - 121 unit/L LAB CHEMISTRY METHOD 07/08/2024 2:39 PM [facility] Total Protein 7.2 6.0 - 8.0 g/dL LAB CHEMISTRY METHOD 07/08/2024 2:39 PM [facility] Albumin 3.5 3.2 - 5.0 g/dL LAB CHEMISTRY METHOD 07/08/2024 2:39 PM [facility] Total Bilirubin 0.2 0.0 - 1.4 mg/dL LAB CHEMISTRY METHOD 07/08/2024 2:39 PM [facility] Blood Venous blood specimen / Unknown Venipuncture / Unknown 07/08/2024 6:23 AM EST 07/08/2024 10:53 AM EST us Kenny Malave MD LAB BLOOD ORDERABLES Final Resul t [facility] [address] [place] [address], * (ABNORMAL) Complete blood count (07/08/2024 6:23 AM EST) WBC 6.5 4.8 - 10.8 K/mcL LAB HEMETOLOGY METHOD 07/08/2024 11:24 AM [facility] RBC 3.90 3.80 - 4.80 M/mcL LAB HEMETOLOGY METHOD 07/08/2024 11:24 AM [facility] Hemoglobin 11.1(L) 11.5 - 16.0 g/dL LAB HEMETOLOGY METHOD 07/08/2024 11:24 AM [facility] Hematocrit 33.8(L) 35.0 - 47.0 % LAB HEMETOLOGY METHOD 07/08/2024 11:24 AM [facility] MCV 86.7 79.0 - 98.0 FL LAB HEMETOLOGY METHOD 07/08/2024 11:24 AM [facility] MCH 28.5 27.0 - 32.0 pcg LAB HEMETOLOGY METHOD 07/08/2024 11:24 AM [facility] MCHC 32.8 32.0 - 37.0 g/dL LAB HEMETOLOGY METHOD 07/08/2024 11:24 AM [facility] RDW 17.4(H) 11.0 - 15.0 % LAB HEMETOLOGY METHOD 07/08/2024 11:24 AM [facility] Platelets 500(H) 130 - 400 K/mcL LAB HEMETOLOGY METHOD 07/08/2024 11:24 AM [facility] MPV 8.2 7.0 - 11.0 FL LAB HEMETOLOGY METHOD 07/08/2024 11:24 AM [facility] NRBC 0.0 <1.0 % LAB HEMETOLOGY METHOD 07/08/2024 11:24 AM [facility] NRBC Absolute 0.00 <0.10 K/mcL LAB HEMETOLOGY METHOD 07/08/2024 11:24 AM [facility] Blood Venous blood specimen / Unknown Venipuncture / Unknown 07/08/2024 6:23 AM EST 07/08/2024 10:53 AM EST us Kenny Malave MD LAB BLOOD ORDERABLES Final Resul t [facility] [address] [place] [address], [place] [phone] documented in this encounter Visit Diagnoses Diagnosis Anemia, unspecified Chronic obstructive pulmonary disease, unspecified (CMS/HCC V24, CMS/HCC V28) documented in this encounter Care Teams Manager E Learning Relationship Specialty Start Date End Date Alan Chanel MD [address] [place] [address] Dr [address] [place] PCP - General Internal Medicine 03/12/24 documented as of this encounter
--- OUTSIDE RECORDS SUMMARY | 2024-08-19 14:16 | XMS_ITS | Encounter Summary ---
Author Organization [facility] Address [address] [place] [address] Care Team Providers Care Vaccine Key Customer Leader Name Role Phone Alan Chanel MD Primary Care Provider Encounter Details Date Type Department Care Team (Late st Contact Info) Description 05/11/2024 Lab Requisition [facility] - Main Lab [address] [place] [address] Kenny Malave MD 38 [facility] [address] [place], [address] Essential (primary) hypertension Social History Tobacco [...] LAB CHEMISTRY METHOD 05/12/2024 9:[address] [facility] Potassium 4.0 3.5 - 5.5 mmol/L LAB CHEMISTRY METHOD 05/12/2024 9:[address] [facility] Chloride 101 96 - 110 mmol/L LAB CHEMISTRY METHOD 05/12/2024 9:30 AM [facility] CO2 26 21 - 32 mmol/L LAB CHEMISTRY METHOD 05/12/2024 9:30 AM [facility] Anion Gap 8 3 - 11 LAB CHEMISTRY METHOD 05/12/2024 9:30 AM [facility] Glucose 84 70 - 100 mg/dL LAB CHEMISTRY METHOD 05/12/2024 9:30 AM [facility] BUN 14 5 - 25 mg/dL LAB CHEMISTRY METHOD 05/12/2024 9:30 AM [facility] Creatinine 0.56 0.50 - 1.10 mg/dL LAB CHEMISTRY METHOD 05/12/2024 9:30 AM [facility] eGFR 96 >=60 mL/min/1. 73m2 LAB CHEMISTRY METHOD 05/12/2024 9:30 AM [facility] Comment:Calculation based on the??Chronic Kidney Disease Epidemiology Collaboration (CKD-EPI) equation refit??without adjustment for race. BUN/Creatinine Ratio 25.0 LAB CHEMISTRY METHOD 05/12/2024 9:30 AM [facility] Calcium 8.5 8.5 - 10.5 mg/dL LAB CHEMISTRY METHOD 05/12/2024 9:30 AM [facility] Blood Venous blood specimen / Unknown Venipuncture / Unknown 05/12/2024 5:47 AM EST 05/12/2024 8:50 AM EST us Kenny Malave MD LAB BLOOD ORDERABLES Final Resul t [facility] [address] [place] [address], * (ABNORMAL) Complete blood count (05/12/2024 5:47 AM EST) WBC 3.6(L) 4.8 - 10.8 K/mcL LAB HEMETOLOGY METHOD 05/12/2024 9:09 AM [facility] RBC 3.70(L) 3.80 - 4.80 M/mcL LAB HEMETOLOGY METHOD 05/12/2024 9:09 AM [facility] Hemoglobin 10.4(L) 11.5 - 16.0 g/dL LAB HEMETOLOGY METHOD 05/12/2024 9:09 AM [facility] Hematocrit 30.8(L) 35.0 - 47.0 % LAB HEMETOLOGY METHOD 05/12/2024 9:09 AM [facility] MCV 84.2 79.0 - 98.0 FL LAB HEMETOLOGY METHOD 05/12/2024 9:09 AM [facility] MCH 28.4 27.0 - 32.0 pcg LAB HEMETOLOGY METHOD 05/12/2024 9:09 AM [facility] MCHC 33.8 32.0 - 37.0 g/dL LAB HEMETOLOGY METHOD 05/12/2024 9:09 AM [facility] RDW 13.5 11.0 - 15.0 % LAB HEMETOLOGY METHOD 05/12/2024 9:09 AM [facility] Platelets 543(H) 130 - 400 K/mcL LAB HEMETOLOGY METHOD 05/12/2024 9:09 AM [facility] MPV 8.3 7.0 - 11.0 FL LAB HEMETOLOGY METHOD 05/12/2024 9:09 AM [facility] NRBC 0.0 <1.0 % LAB HEMETOLOGY METHOD 05/12/2024 9:09 AM [facility] NRBC Absolute 0.00 <0.10 K/mcL LAB HEMETOLOGY METHOD 05/12/2024 9:09 AM [facility] Blood Venous blood specimen / Unknown Venipuncture / Unknown 05/12/2024 5:47 AM EST 05/12/2024 8:50 AM EST us Kenny Malave MD LAB BLOOD ORDERABLES Final Resul t [facility] [address] [place] [address], documented in this encounter Visit Diagnoses Diagnosis Essential (primary) hypertension Unspecified essential hypertension documented in this encounter Care Teams Vaccine Key Customer Leader Relationship Specialty Start Date End Date Alan Chanel MD [address] [place] [address] Dr [address] [place], [place] PCP - General Internal Medicine 03/12/24 documented as of this encounter
--- OUTSIDE RECORDS SUMMARY | 2024-08-19 14:16 | XMS_ITS | Clinical Summary ---
Author Organization [facility] Address [address] [place] [address] Phone Care Team Providers Care Hide Grader Name Role Phone Alan Chanel MD Primary Care Provider [phone] Allergies No known active allergies Medications albuterol [...] 04/14/2024 COPD (chronic obstructive pu lmonary disease) ([facility] V24, [facility] V28) 04/14/2024 Benign essential hypertension 04/14/2024 Lumbar degenerative disc disease 04/14/2024 Encounters Date Type Department Care Team Description 08/15/2024 Lab Requisition [facility] - Main Lab [address] [place] [address] Kenny Malave MD Essential (primary) hypertension 08/09/2024 Lab Requisition [facility] Main Lab [address] [place] [address] Kenny Malave MD Essential (primary) hypertension 08/01/2024 Lab Requisition [facility] Main Lab [address] [place] [address] Kenny Malave MD Essential (primary) hypertension 07/25/2024 Lab Requisition [facility] - Main Lab [address] [place] [address] Kneny Malave MD Essential (primary) hypertension 07/20/2024 Lab Requisition [facility] Main Lab [address] [place] [address] Kenny Malave MD Essential (primary) hypertension 07/14/2024 Lab Requisition [facility] Main Lab [address] [place] [address] Kenny Malave MD Chronic kidney disease, unspecified 07/13/2024 Lab Requisition [facility] Main Lab [address] [place] [address] Kenny Malave MD Anemia, unspecified; Chronic obstructive pulmonary disease, unspecified ([facility] V24, [facility] V28) 07/08/2024 Lab Requisition [facility] Lab [address] [place] [address] Kenny Malave MD Anemia, unspecified; Chronic obstructive pulmonary disease, unspecified ([facility] V24, [facility] V28) 06/08/2024 Lab Requisition [facility] Lab [address] [place] [address] Kenny Malave MD Chronic obstructive pulmonary disease, unspecified ([facility] V24, [facility] V28) 06/04/2024 Lab Requisition [facility] Lab [address] [place] [phone] Kenny Malave MD 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 05/28/2024 Lab Requisition [facility] Lab [address] [place] [phone] Kenny Malave MD Polyneuropathy, unspecified; Unspecified protein-calorie malnutrition ([facility] V24); Chronic obstructive pulmonary disease, unspecified ([facility] V24, [facility] V28) from Last 3 Months Social History [...] PANEL Routine 06/04/2024 5:36 AM EST 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 WBC 4.8 4.8 - 10.8 K/mcL LAB HEMETOLOGY METHOD 08/17/2024 11:[address] [facility] RBC 3.70(L) 3.80 - 4.80 M/mcL LAB HEMETOLOGY METHOD 08/17/2024 11:[address] [facility] Hemoglobin 10.3(L) 11.5 - 16.0 g/dL LAB HEMETOLOGY METHOD 08/17/2024 11:[address] [facility] Hematocrit 31.4(L) 35.0 - 47.0 % LAB HEMETOLOGY METHOD 08/17/2024 11:[address] [facility] MCV 85.8 79.0 - 98.0 FL LAB HEMETOLOGY METHOD 08/17/2024 11:[address] [facility] MCH 28.1 27.0 - 32.0 pcg LAB HEMETOLOGY METHOD 08/17/2024 11:[address] [facility] MCHC 32.8 32.0 - 37.0 g/dL LAB HEMETOLOGY METHOD 08/17/2024 11:[address] [facility] RDW 14.2 11.0 - 15.0 % LAB HEMETOLOGY METHOD 08/17/2024 11:44 AM EDT [facility] Platelets 402(H) 130 - 400 K/mcL LAB HEMETOLOGY METHOD 08/17/2024 11:44 AM EDT [facility] MPV 8.5 7.0 - 11.0 FL LAB HEMETOLOGY METHOD 08/17/2024 11:44 AM EDT [facility] NRBC 0.0 <1.0 % LAB HEMETOLOGY METHOD 08/17/2024 11:44 AM EDT [facility] NRBC Absolute 0.00 <0.10 K/mcL LAB HEMETOLOGY METHOD 08/17/2024 11:44 AM EDT [facility] Blood Venous blood specimen / Unknown Venipuncture / Unknown 08/17/2024 5:38 AM EDT 08/17/2024 10:35 AM EDT us Kenny Malave MD LAB BLOOD ORDERABLES Final Resul t [facility] [address] [place] [address], [place] [phone] * (ABNORMAL) Comprehensive metabolic panel (08/17/2024 5:38 AM EDT) Only the most recent of8 resultswithin the time period is included. Sodium 128(L) 133 - 145 mmol/L LAB CHEMISTRY METHOD 08/17/2024 12:[address] [facility] Potassium 4.8 3.5 - 5.5 mmol/L LAB CHEMISTRY METHOD 08/17/2024 12:[address] [facility] Chloride 95(L) 96 - 110 mmol/L LAB CHEMISTRY METHOD 08/17/2024 12:[address] [facility] CO2 28 21 - 32 mmol/L LAB CHEMISTRY METHOD 08/17/2024 12:[address] [facility] Anion Gap 5 3 - 11 LAB CHEMISTRY METHOD 08/17/2024 12:[address] [facility] Glucose 76 70 - 100 mg/dL LAB CHEMISTRY METHOD 08/17/2024 12:[address] [facility] BUN 21 5 - 25 mg/dL LAB CHEMISTRY METHOD 08/17/2024 12:[address] [facility] Creatinine 0.67 0.50 - 1.10 mg/dL LAB CHEMISTRY METHOD 08/17/2024 12:[address] [facility] eGFR 91 >=60 mL/min/1. 73m2 LAB CHEMISTRY METHOD 08/17/2024 12:[address] [facility] Comment:Calculation based on the??Chronic Kidney Disease Epidemiology Collaboration (CKD-EPI) equation refit??without adjustment for race. BUN/Creatinine Ratio 31.3 LAB CHEMISTRY METHOD 08/17/2024 12:[address] [facility] Calcium 9.8 8.5 - 10.5 mg/dL LAB CHEMISTRY METHOD 08/17/2024 12:[address] [facility] AST (SGOT) 28 10 - 42 unit/L LAB CHEMISTRY METHOD 08/17/2024 12:[address] [facility] ALT (SGPT) 21 10 - 60 unit/L LAB CHEMISTRY METHOD 08/17/2024 12:[address] [facility] Alkaline Phosphatase 80 42 - 121 unit/L LAB CHEMISTRY METHOD 08/17/2024 12:[address] [facility] Total Protein 7.2 6.0 - 8.0 g/dL LAB CHEMISTRY METHOD 08/17/2024 12:[address] [facility] Albumin 3.5 3.2 - 5.0 g/dL LAB CHEMISTRY METHOD 08/17/2024 12:[address] [facility] Total Bilirubin 0.2 0.0 - 1.4 mg/dL LAB CHEMISTRY METHOD 08/17/2024 12:[address] [facility] Blood Venous blood specimen / Unknown Venipuncture / Unknown 08/17/2024 5:38 AM EDT 08/17/2024 10:35 AM EDT us Kenny Malave MD LAB BLOOD ORDERABLES Final Resul t Performing Organization Address [facility]/ZIP Co de Phone Number [facility] [address] [place] [address], [place] [phone] * Phosphorus (07/14/2024 5:07 AM EDT) Only the most recent of2 resultswithin the time period is included. Phosphorus 4.3 2.5 - 4.5 mg/dL LAB CHEMISTRY METHOD 07/14/2024 9:15 AM EDT [facility] Blood Venous blood specimen / Unknown Venipuncture / Unknown 07/14/2024 5:07 AM EDT 07/14/2024 7:45 AM EDT us Kenny Malave MD LAB BLOOD ORDERABLES Final Resul t Performing Organization Address [facility]/ZIP Co de Phone Number [facility] [address] [place] [address], [place] [phone] * Basic metabolic panel (06/08/2024 7:16 AM EST) Only the most recent of3 resultswithin the time period is included. Sodium 136 133 - 145 mmol/L LAB CHEMISTRY METHOD 06/08/2024 11:51 AM EST [facility] Potassium 5.0 3.5 - 5.5 mmol/L LAB CHEMISTRY METHOD 06/08/2024 11:51 AM EST [facility] Comment:Results verified by repeat testing Chloride 102 96 - 110 mmol/L LAB CHEMISTRY METHOD 06/08/2024 11:51 AM EST [facility] CO2 26 21 - 32 mmol/L LAB CHEMISTRY METHOD 06/08/2024 11:51 AM EST [facility] Anion Gap 8 3 - 11 LAB CHEMISTRY METHOD 06/08/2024 11:51 AM EST [facility] Glucose 78 70 - 100 mg/dL LAB CHEMISTRY METHOD 06/08/2024 11:51 AM [facility] BUN 17 5 - 25 mg/dL LAB CHEMISTRY METHOD 06/08/2024 11:51 AM [facility] Creatinine 0.53 0.50 - 1.10 mg/dL LAB CHEMISTRY METHOD 06/08/2024 11:51 AM [facility] eGFR 97 >=60 mL/min/1. 73m2 LAB CHEMISTRY METHOD 06/08/2024 11:51 AM [facility] Comment:Calculation based on the??Chronic Kidney Disease Epidemiology Collaboration (CKD-EPI) equation refit??without adjustment for race. BUN/Creatinine Ratio 32.1 LAB CHEMISTRY METHOD 06/08/2024 11:51 AM [facility] Calcium 9.6 8.5 - 10.5 mg/dL LAB CHEMISTRY METHOD 06/08/2024 11:51 AM [facility] Blood Venous blood specimen / Unknown Venipuncture / Unknown 06/08/2024 7:16 AM EST 06/08/2024 9:26 AM EST us Kenny Malave MD LAB BLOOD ORDERABLES Final Resul t [facility] [address] [place] [address], from Last 3 Months Insurance MEDICARE MEDICAID - [place] Care Teams Hide Grader Relationship Specialty Start Date End Date Aaln Chanel MD [address] [place] [address] [address] [place], [place] PCP - General Internal Medicine 03/12/24
--- OUTSIDE RECORDS SUMMARY | 2024-08-19 14:16 | XMS_ITS | Encounter Summary ---
Author Organization [facility] Address [address] [place] [address] Care Team Providers Care Bottom Cementer Name Role Phone Alan Chanel MD Primary Care Provider Encounter Details Date Type Department Care Team (Late st Contact Info) Description 08/15/2024 Lab Requisition [facility] [address] [place] [address] Kenny Malave MD 38 [facility] [address] [place], [address] Essential (primary) hypertension Social History Tobacco [...] LAB CHEMISTRY METHOD 08/17/2024 12:[address] [facility] Potassium 4.8 3.5 - 5.5 mmol/L LAB CHEMISTRY METHOD 08/17/2024 12:[address] [facility] Chloride 95(L) 96 - 110 mmol/L LAB CHEMISTRY METHOD 08/17/2024 12:06 PM [facility] CO2 28 21 - 32 mmol/L LAB CHEMISTRY METHOD 08/17/2024 12:06 PM [facility] Anion Gap 5 3 - 11 LAB CHEMISTRY METHOD 08/17/2024 12:06 PM [facility] Glucose 76 70 - 100 mg/dL LAB CHEMISTRY METHOD 08/17/2024 12:06 PM [facility] BUN 21 5 - 25 mg/dL LAB CHEMISTRY METHOD 08/17/2024 12:06 PM [facility] Creatinine 0.67 0.50 - 1.10 mg/dL LAB CHEMISTRY METHOD 08/17/2024 12:06 PM [facility] eGFR 91 >=60 mL/min/1. 73m2 LAB CHEMISTRY METHOD 08/17/2024 12:06 PM [facility] Comment:Calculation based on the??Chronic Kidney Disease Epidemiology Collaboration (CKD-EPI) equation refit??without adjustment for race. BUN/Creatinine Ratio 31.3 LAB CHEMISTRY METHOD 08/17/2024 12:06 PM [facility] Calcium 9.8 8.5 - 10.5 mg/dL LAB CHEMISTRY METHOD 08/17/2024 12:06 PM [facility] AST (SGOT) 28 10 - 42 unit/L LAB CHEMISTRY METHOD 08/17/2024 12:06 PM [facility] ALT (SGPT) 21 10 - 60 unit/L LAB CHEMISTRY METHOD 08/17/2024 12:06 PM [facility] Alkaline Phosphatase 80 42 - 121 unit/L LAB CHEMISTRY METHOD 08/17/2024 12:06 PM [facility] Total Protein 7.2 6.0 - 8.0 g/dL LAB CHEMISTRY METHOD 08/17/2024 12:06 PM [facility] Albumin 3.5 3.2 - 5.0 g/dL LAB CHEMISTRY METHOD 08/17/2024 12:[address] [facility] Total Bilirubin 0.2 0.0 - 1.4 mg/dL LAB CHEMISTRY METHOD 08/17/2024 12:06 PM [facility] Blood Venous blood specimen / Unknown Venipuncture / Unknown 08/17/2024 5:38 AM EDT 08/17/2024 10:35 AM EDT us Kenny Malave MD LAB BLOOD ORDERABLES Final Resul t [facility] [address] [place] [address], [place] [phone] * (ABNORMAL) Complete blood count (08/17/2024 5:38 AM EDT) WBC 4.8 4.8 - 10.8 K/mcL LAB HEMETOLOGY METHOD 08/17/2024 11:44 AM [facility] RBC 3.70(L) 3.80 - 4.80 M/mcL LAB HEMETOLOGY METHOD 08/17/2024 11:44 AM [facility] Hemoglobin 10.3(L) 11.5 - 16.0 g/dL LAB HEMETOLOGY METHOD 08/17/2024 11:44 AM [facility] Hematocrit 31.4(L) 35.0 - 47.0 % LAB HEMETOLOGY METHOD 08/17/2024 11:44 AM [facility] MCV 85.8 79.0 - 98.0 FL LAB HEMETOLOGY METHOD 08/17/2024 11:44 AM [facility] MCH 28.1 27.0 - 32.0 pcg LAB HEMETOLOGY METHOD 08/17/2024 11:44 AM [facility] MCHC 32.8 32.0 - 37.0 g/dL LAB HEMETOLOGY METHOD 08/17/2024 11:[address] [facility] RDW 14.2 11.0 - 15.0 % LAB HEMETOLOGY METHOD 08/17/2024 11:[address] [facility] Platelets 402(H) 130 - 400 K/mcL LAB HEMETOLOGY METHOD 08/17/2024 11:[address] [facility] MPV 8.5 7.0 - 11.0 FL LAB HEMETOLOGY METHOD 08/17/2024 11:[address] [facility] NRBC 0.0 <1.0 % LAB HEMETOLOGY METHOD 08/17/2024 11:[address] [facility] NRBC Absolute 0.00 <0.10 K/mcL LAB HEMETOLOGY METHOD 08/17/2024 11:[address] [facility] Blood Venous blood specimen / Unknown Venipuncture / Unknown 08/17/2024 5:38 AM EDT 08/17/2024 10:35 AM EDT us Kenny Malave MD LAB BLOOD ORDERABLES Final Resul t [facility] [address] [place] [address], documented in this encounter Visit Diagnoses Diagnosis Essential (primary) hypertension Unspecified essential hypertension documented in this encounter Care Teams Bottom Cementer Relationship Specialty Start Date End Date Alan Chanel MD [address] [place] [address] [address] [facility] MAGEN Kruger PCP - General Internal Medicine 03/12/24 documented as of this encounter
--- OUTSIDE RECORDS SUMMARY | 2024-08-19 14:16 | XMS_ITS | Encounter Summary ---
Author Organization [facility] Address [address] [place] [address] Care Team Providers Care Sand Mill Operator Core Sand Name Role Phone Alan Chanel MD Primary Care Provider Encounter Details Date Type Department Care Team (Late st Contact Info) Description 08/01/2024 Lab Requisition [facility] Lab [address] [place] [address] Kenny Malave MD 38 [facility] [address] [place], [address] Essential (primary) hypertension Social History Tobacco [...] LAB CHEMISTRY METHOD 08/03/2024 12:13 PM EDT [facility] Potassium 4.5 3.5 - 5.5 mmol/L LAB CHEMISTRY METHOD 08/03/2024 12:13 PM EDT [facility] Chloride 96 96 - 110 mmol/L LAB CHEMISTRY METHOD 08/03/2024 12:13 PM [facility] CO2 26 21 - 32 mmol/L LAB CHEMISTRY METHOD 08/03/2024 12:13 PM [facility] Anion Gap 9 3 - 11 LAB CHEMISTRY METHOD 08/03/2024 12:13 PM [facility] Glucose 70 70 - 100 mg/dL LAB CHEMISTRY METHOD 08/03/2024 12:13 PM [facility] BUN 20 5 - 25 mg/dL LAB CHEMISTRY METHOD 08/03/2024 12:13 PM [facility] Creatinine 0.55 0.50 - 1.10 mg/dL LAB CHEMISTRY METHOD 08/03/2024 12:13 PM [facility] eGFR 96 >=60 mL/min/1. 73m2 LAB CHEMISTRY METHOD 08/03/2024 12:13 PM [facility] Comment:Calculation based on the??Chronic Kidney Disease Epidemiology Collaboration (CKD-EPI) equation refit??without adjustment for race. BUN/Creatinine Ratio 36.4 LAB CHEMISTRY METHOD 08/03/2024 12:13 PM [facility] Calcium 9.7 8.5 - 10.5 mg/dL LAB CHEMISTRY METHOD 08/03/2024 12:13 PM [facility] AST (SGOT) 26 10 - 42 unit/L LAB CHEMISTRY METHOD 08/03/2024 12:13 PM [facility] ALT (SGPT) 21 10 - 60 unit/L LAB CHEMISTRY METHOD 08/03/2024 12:13 PM [facility] Alkaline Phosphatase 84 42 - 121 unit/L LAB CHEMISTRY METHOD 08/03/2024 12:13 PM [facility] Total Protein 7.0 6.0 - 8.0 g/dL LAB CHEMISTRY METHOD 08/03/2024 12:13 PM [facility] Albumin 3.4 3.2 - 5.0 g/dL LAB CHEMISTRY METHOD 08/03/2024 12:13 PM EDT [facility] Total Bilirubin 0.3 0.0 - 1.4 mg/dL LAB CHEMISTRY METHOD 08/03/2024 12:13 PM EDT [facility] Blood Venous blood specimen / Unknown Venipuncture / Unknown 08/03/2024 5:38 AM EDT 08/03/2024 10:24 AM EDT us Kenny Malave MD LAB BLOOD ORDERABLES Final Resul t [facility] [address] [place] [address], [place] [phone] * (ABNORMAL) Complete blood count (08/03/2024 5:38 AM EDT) WBC 4.2(L) 4.8 - 10.8 K/mcL LAB HEMETOLOGY METHOD 08/03/2024 11:18 AM T [facility] RBC 3.70(L) 3.80 - 4.80 M/mcL LAB HEMETOLOGY METHOD 08/03/2024 11:18 AM [facility] Hemoglobin 10.5(L) 11.5 - 16.0 g/dL LAB HEMETOLOGY METHOD 08/03/2024 11:18 AM [facility] Hematocrit 31.9(L) 35.0 - 47.0 % LAB HEMETOLOGY METHOD 08/03/2024 11:18 AM EDT [facility] MCV 86.4 79.0 - 98.0 FL LAB HEMETOLOGY METHOD [facility] MCH 28.5 27.0 - 32.0 pcg LAB HEMETOLOGY METHOD 08/03/2024 11:18 AM [facility] MCHC 32.9 32.0 - 37.0 g/dL LAB HEMETOLOGY METHOD 08/03/2024 11:18 AM EDT [facility] RDW 15.3(H) 11.0 - 15.0 % LAB HEMETOLOGY METHOD 08/03/2024 11:18 AM EDT [facility] Platelets 409(H) 130 - 400 K/mcL LAB HEMETOLOGY METHOD 08/03/2024 11:18 AM EDT [facility] MPV 8.3 7.0 - 11.0 FL LAB HEMETOLOGY METHOD 08/03/2024 11:18 AM EDT [facility] NRBC 0.0 <1.0 % LAB HEMETOLOGY METHOD 08/03/2024 11:18 AM EDT [facility] NRBC Absolute 0.00 <0.10 K/mcL LAB HEMETOLOGY METHOD 08/03/2024 11:18 AM EDT [facility] Blood Venous blood specimen / Unknown Venipuncture / Unknown 08/03/2024 5:38 AM EDT 08/03/2024 10:24 AM EDT us Kenny Malave MD LAB BLOOD ORDERABLES Final Resul t [facility] [address] [place] [address], documented in this encounter Visit Diagnoses Diagnosis Essential (primary) hypertension Unspecified essential hypertension documented in this encounter Care Teams Sand Mill Operator Core Sand Relationship Specialty Start Date End Date Alan Chanel MD [address] [place] [address] Dr Reyna Kruger [place] PCP - General Internal Medicine 03/12/24 documented as of this encounter
--- OUTSIDE RECORDS SUMMARY | 2024-08-19 14:16 | XMS_ITS | Encounter Summary ---
Author Organization [facility] Address [address] [place] [address] Care Team Providers Care Pulp Grinder Name Role Phone Alan Chanel MD Primary Care Provider Encounter Details Date Type Department Care Team (Late st Contact Info) Description 04/12/2024 Lab Requisition [facility] Main Lab [address] [facility] [address] Ever Reyna MD [address] [place] [address] Encounter for other general examination Social History [...] AM EST) WBC 6.1 4.8 - 10.8 K/[facility] LAB HEMETOLOGY METHOD 04/12/2024 10:32 AM [facility] RBC 4.20(L) 4.50 - 5.50 M/mcL LAB HEMETOLOGY METHOD 04/12/2024 10:32 AM [facility] Hemoglobin 11.8(L) 13.5 - 17.5 g/dL LAB HEMETOLOGY METHOD 04/12/2024 10:32 AM [facility] Hematocrit 36.0(L) 42.0 - 54.0 % LAB HEMETOLOGY METHOD 04/12/2024 10:32 AM [facility] MCV 85.9 79.0 - 98.0 FL LAB HEMETOLOGY METHOD 04/12/2024 10:32 AM [facility] MCH 28.2 27.0 - 32.0 pcg LAB HEMETOLOGY METHOD 04/12/2024 10:32 AM [facility] MCHC 32.8 32.0 - 37.0 g/dL LAB HEMETOLOGY METHOD 04/12/2024 10:32 AM [facility] RDW 13.2 11.0 - 15.0 % LAB HEMETOLOGY METHOD 04/12/2024 10:32 AM [facility] Platelets 424(H) 130 - 400 K/mcL LAB HEMETOLOGY METHOD 04/12/2024 10:32 AM [facility] MPV 8.6 7.0 - 11.0 FL LAB HEMETOLOGY METHOD 04/12/2024 10:32 AM [facility] NRBC 0.0 <1.0 % LAB HEMETOLOGY METHOD 04/12/2024 10:32 AM [facility] NRBC Absolute 0.00 <0.10 K/mcL LAB HEMETOLOGY METHOD 04/12/2024 10:32 AM [facility] Neutrophils Relative 70.8 % LAB HEMETOLOGY METHOD 04/12/2024 10:32 AM [facility] Lymphocytes Relative 14.7 % LAB HEMETOLOGY METHOD 04/12/2024 10:32 AM [facility] Monocytes Relative 13.7 % LAB HEMETOLOGY METHOD 04/12/2024 10:32 AM [facility] Eosinophils Relative 0.0 % LAB HEMETOLOGY METHOD 04/12/2024 10:32 AM [facility] Basophils Relative 0.3 % LAB HEMETOLOGY METHOD 04/12/2024 10:32 AM [facility] Immature Granulocytes Relative 0.5 % LAB HEMETOLOGY METHOD 04/12/2024 10:32 AM [facility] Neutrophils Absolute 4.32 1.50 - 7.00 K/mcL LAB HEMETOLOGY METHOD 04/12/2024 10:32 AM [facility] Lymphocytes Absolute 0.90(L) 1.00 - 5.00 K/mcL LAB HEMETOLOGY METHOD 04/12/2024 10:32 AM [facility] Monocytes Absolute 0.84 0.20 - 1.00 K/mcL LAB HEMETOLOGY METHOD 04/12/2024 10:32 AM [facility] Eosinophils Absolute 0.00 0.00 - 0.50 K/mcL LAB HEMETOLOGY METHOD 04/12/2024 10:32 AM [facility] Basophils Absolute 0.02 0.00 - 0.20 K/mcL LAB HEMETOLOGY METHOD 04/12/2024 10:32 AM [facility] Immature Granulocytes Absolute 0.03 0.00 - 0.03 K/mcL LAB HEMETOLOGY METHOD 04/12/2024 10:32 AM [facility] Blood Venous blood specimen / Unknown Venipuncture / Unknown 04/12/2024 7:35 AM EST 04/12/2024 10:02 AM EST Ever Reyna MD LAB BLOOD ORDERABLES Final Res ult [facility] [address] [place] [address], [place] [phone] * (ABNORMAL) Magnesium (04/12/2024 7:35 AM EST) Magnesium 1.7(L) 1.9 - 2.6 mg/dL LAB CHEMISTRY METHOD 04/12/2024 10:55 AM EST [facility] Blood Venous blood specimen / Unknown Venipuncture / Unknown 04/12/2024 7:35 AM EST 04/12/2024 10:02 AM EST Ever Reyna MD LAB BLOOD ORDERABLES Final Res ult Performing Organization Address [facility]/ZIP Co de Phone Number [facility] [address] [place] [address], [place] [phone] * (ABNORMAL) Comprehensive metabolic panel (04/12/2024 7:35 AM EST) Sodium 130(L) 133 - 145 mmol/L LAB CHEMISTRY METHOD 04/12/2024 10:56 AM [facility] Potassium 4.5 3.5 - 5.5 mmol/L LAB CHEMISTRY METHOD 04/12/2024 10:56 AM [facility] Chloride 97 96 - 110 mmol/L LAB CHEMISTRY METHOD 04/12/2024 10:56 AM [facility] CO2 25 21 - 32 mmol/L LAB CHEMISTRY METHOD 04/12/2024 10:56 AM [facility] Anion Gap 8 3 - 11 LAB CHEMISTRY METHOD 04/12/2024 10:56 AM [facility] Glucose 77 70 - 100 mg/dL LAB CHEMISTRY METHOD 04/12/2024 10:56 AM [facility] BUN 16 5 - 25 mg/dL LAB CHEMISTRY METHOD 04/12/2024 10:56 AM [facility] Creatinine 0.68(L) 0.70 - 1.30 mg/dL LAB CHEMISTRY METHOD 04/12/2024 10:56 AM [facility] eGFR 98 >=60 mL/min/1. 73m2 LAB CHEMISTRY METHOD 04/12/2024 10:56 AM [facility] Comment:Calculation based on the??Chronic Kidney Disease Epidemiology Collaboration (CKD-EPI) equation refit??without adjustment for race. BUN/Creatinine Ratio 23.5 LAB CHEMISTRY METHOD 04/12/2024 10:56 AM [facility] Calcium 9.9 8.5 - 10.5 mg/dL LAB CHEMISTRY METHOD 04/12/2024 10:56 AM [facility] AST (SGOT) 38 10 - 42 unit/L LAB CHEMISTRY METHOD 04/12/2024 10:56 AM [facility] ALT (SGPT) 24 10 - 60 unit/L LAB CHEMISTRY METHOD 04/12/2024 10:56 AM [facility] Alkaline Phosphatase 117 42 - 121 unit/L LAB CHEMISTRY METHOD 04/12/2024 10:56 AM [facility] Total Protein 6.7 6.0 - 8.0 g/dL LAB CHEMISTRY METHOD 04/12/2024 10:56 AM [facility] Albumin 3.2 3.2 - 5.0 g/dL LAB CHEMISTRY METHOD 04/12/2024 10:56 AM [facility] Total Bilirubin 0.3 0.0 - 1.4 mg/dL LAB CHEMISTRY METHOD 04/12/2024 10:56 AM [facility] Blood Venous blood specimen / Unknown Venipuncture / Unknown 04/12/2024 7:35 AM EST 04/12/2024 10:02 AM EST us Ever Reyna MD LAB BLOOD ORDERABLES Final Res ult [facility] [address] [place] [address], documented in this encounter Visit Diagnoses Diagnosis Encounter for other general examination documented in this encounter Care Teams Pulp Grinder Relationship Specialty Start Date End Date Alan Chanel MD [address] [place] [address] Dr [address] [place] PCP - General Internal Medicine 03/12/24 documented as of this encounter
--- OUTSIDE RECORDS SUMMARY | 2024-08-19 14:16 | XMS_ITS | Encounter Summary ---
Author Organization [facility] Address [address] [place] [address] Care Team Providers Care Interface Engineer Name Role Phone Alan Chanel MD Primary Care Provider Encounter Details Date Type Department Care Team (Late st Contact Info) Description 05/28/2024 Lab Requisition [facility] Lab [address] [place] [address] Kenny Malave MD 38 [facility] [address] [place], [address] Polyneuropathy, unspecified; Unspecified protein-calorie malnutrition (CMS/HCC [...] LAB CHEMISTRY METHOD 05/28/2024 9:40 AM EST [facility] Potassium 3.3(L) 3.5 - 5.5 mmol/L LAB CHEMISTRY METHOD 05/28/2024 9:[address] [facility] Chloride 103 96 - 110 mmol/L LAB CHEMISTRY METHOD 05/28/2024 9:[address] [facility] CO2 27 21 - 32 mmol/L LAB CHEMISTRY METHOD 05/28/2024 9:[address] [facility] Anion Gap 5 3 - 11 LAB CHEMISTRY METHOD 05/28/2024 9:[address] [facility] Glucose 84 70 - 100 mg/dL LAB CHEMISTRY METHOD 05/28/2024 9:[address] [facility] BUN 13 5 - 25 mg/dL LAB CHEMISTRY METHOD 05/28/2024 9:[address] [facility] Creatinine 0.56 0.50 - 1.10 mg/dL LAB CHEMISTRY METHOD 05/28/2024 9:[address] [facility] eGFR 96 >=60 mL/min/1. 73m2 LAB CHEMISTRY METHOD 05/28/2024 9:[address] [facility] Comment:Calculation based on the??Chronic Kidney Disease Epidemiology Collaboration (CKD-EPI) equation refit??without adjustment for race. BUN/Creatinine Ratio 23.2 LAB CHEMISTRY METHOD 05/28/2024 9:[address] [facility] Calcium 8.3(L) 8.5 - 10.5 mg/dL LAB CHEMISTRY METHOD 05/28/2024 9:[address] [facility] Blood Venous blood specimen / Unknown Venipuncture / Unknown 05/28/2024 6:03 AM EST 05/28/2024 8:39 AM EST us Kenny Malave MD LAB BLOOD ORDERABLES Final Resul t [facility] [address] [place] [address], documented in this encounter Visit Diagnoses Diagnosis Polyneuropathy, unspecified Unspecified protein-calorie malnutrition (CMS/HCC V24) Unspecified protein-calorie malnutrition Chronic obstructive pulmonary disease, unspecified (CMS/[facility] V24, CMS/[facility] V28) documented in this encounter Care Teams Interface Engineer Relationship Specialty Start Date End Date Alan Chanel MD [address] [place] [address] Dr [address] MAGEN Kruger PCP - General Internal Medicine 03/12/24 documented as of this encounter
--- OUTSIDE RECORDS SUMMARY | 2024-08-19 14:17 | XMS_ITS | Encounter Summary ---
Author Organization [facility] Address [address] [place] [address] Care Team Providers Care Jewel Stripper Name Role Phone Alan Chanel MD Primary Care Provider Encounter Details Date Type Department Care Team (Late st Contact Info) Description 04/22/2024 Lab Requisition [facility] - Main Lab [address] [facility] [place] [address] Ever Reyna MD [address] [place] [address] Encounter for other general examination Social History [...] CHEMISTRY METHOD 04/22/2024 11:[address] [facility] Urine Urine specimen obtained by clean catch procedure / Unknown 04/22/2024 4:20 AM EST 04/22/2024 9:49 AM EST us Ever Reyna MD LAB URINE ORDERABLES Final Res ult Performing Organization Address City/[facility]/ZIP Co de Phone Number [facility] [address] [place] [address], [place] [phone] * Sodium, urine, random (04/22/2024 4:20 AM EST) Sodium, Ur 54 mmol/L LAB CHEMISTRY METHOD 04/22/2024 11:29 AM EST [facility] Urine Urine specimen obtained by clean catch procedure / Unknown 04/22/2024 4:20 AM EST 04/22/2024 9:49 AM EST Ever Reyna MD LAB URINE ORDERABLES Final Res ult Performing Organization Address [facility]/ZIP Co de Phone Number [facility] [address] [place] [address], [place] [phone] documented in this encounter Visit Diagnoses Diagnosis Encounter for other general examination documented in this encounter Care Teams Jewel Stripper Relationship Specialty Start Date End Date Alan Chanel MD [address] [place] [address] Dr Reyna Kruger [place] PCP - General Internal Medicine 03/12/24 documented as of this encounter
--- OUTSIDE RECORDS SUMMARY | 2024-08-19 14:17 | XMS_ITS | Encounter Summary ---
Author Organization [facility] Address [address] [place] [address] Care Team Providers Care Manager Psychology Name Role Phone Alan Chanel MD Primary Care Provider Encounter Details Date Type Department Care Team (Late st Contact Info) Description 08/09/2024 Lab Requisition [facility] [address] [place] [address] Kenny Malave MD 38 [facility] [address] [place], [address] Essential (primary) hypertension Social History Tobacco [...] LAB CHEMISTRY METHOD 08/10/2024 12:52 PM EDT [facility] Potassium 4.5 3.5 - 5.5 mmol/L LAB CHEMISTRY METHOD 08/10/2024 12:52 PM EDT [facility] Chloride 99 96 - 110 mmol/L LAB CHEMISTRY METHOD 08/10/2024 12:52 PM [facility] CO2 27 21 - 32 mmol/L LAB CHEMISTRY METHOD 08/10/2024 12:52 PM [facility] Anion Gap 5 3 - 11 LAB CHEMISTRY METHOD 08/10/2024 12:52 PM [facility] Glucose 64(L) 70 - 100 mg/dL LAB CHEMISTRY METHOD 08/10/2024 12:52 PM [facility] BUN 22 5 - 25 mg/dL LAB CHEMISTRY METHOD 08/10/2024 12:52 PM [facility] Creatinine 0.62 0.50 - 1.10 mg/dL LAB CHEMISTRY METHOD 08/10/2024 12:52 PM [facility] eGFR 94 >=60 mL/min/1. 73m2 LAB CHEMISTRY METHOD 08/10/2024 12:52 PM [facility] Comment:Calculation based on the??Chronic Kidney Disease Epidemiology Collaboration (CKD-EPI) equation refit??without adjustment for race. BUN/Creatinine Ratio 35.5 LAB CHEMISTRY METHOD 08/10/2024 12:52 PM [facility] Calcium 9.6 8.5 - 10.5 mg/dL LAB CHEMISTRY METHOD 08/10/2024 12:52 PM [facility] AST (SGOT) 25 10 - 42 unit/L LAB CHEMISTRY METHOD 08/10/2024 12:52 PM [facility] ALT (SGPT) 19 10 - 60 unit/L LAB CHEMISTRY METHOD 08/10/2024 12:52 PM [facility] Alkaline Phosphatase 81 42 - 121 unit/L LAB CHEMISTRY METHOD 08/10/2024 12:52 PM [facility] Total Protein 7.2 6.0 - 8.0 g/dL LAB CHEMISTRY METHOD 08/10/2024 12:52 PM [facility] Albumin 3.6 3.2 - 5.0 g/dL LAB CHEMISTRY METHOD 08/10/2024 12:52 PM EDT [facility] Total Bilirubin 0.3 0.0 - 1.4 mg/dL LAB CHEMISTRY METHOD 08/10/2024 12:52 PM EDT [facility] Blood Venous blood specimen / Unknown Venipuncture / Unknown 08/10/2024 6:24 AM EDT 08/10/2024 11:12 AM EDT us Kenny Malave MD LAB BLOOD ORDERABLES Final Resul t [facility] [address] [place] [address], [place] [phone] * (ABNORMAL) Complete blood count (08/10/2024 6:24 AM EDT) WBC 3.9(L) 4.8 - 10.8 K/mcL LAB HEMETOLOGY METHOD 08/10/2024 12:28 PM EDT [facility] RBC 3.80 3.80 - 4.80 M/mcL LAB HEMETOLOGY METHOD 08/10/2024 12:28 PM EDT [facility] Hemoglobin 11.0(L) 11.5 - 16.0 g/dL LAB HEMETOLOGY METHOD 08/10/2024 12:28 PM EDT [facility] Hematocrit 32.7(L) 35.0 - 47.0 % LAB HEMETOLOGY METHOD 08/10/2024 12:28 PM EDT [facility] MCV 85.2 79.0 - 98.0 FL LAB HEMETOLOGY METHOD [facility]24 [facility] MCH 28.6 27.0 - 32.0 pcg LAB HEMETOLOGY METHOD 08/10/2024 12:28 PM EDT [facility] MCHC 33.6 32.0 - 37.0 g/dL LAB HEMETOLOGY METHOD 08/10/2024 12:28 PM EDT [facility] RDW 14.6 11.0 - 15.0 % LAB HEMETOLOGY METHOD 08/10/2024 12:28 PM EDT [facility] Platelets 434(H) 130 - 400 K/mcL LAB HEMETOLOGY METHOD 08/10/2024 12:28 PM EDT [facility] MPV 8.2 7.0 - 11.0 FL LAB HEMETOLOGY METHOD 08/10/2024 12:28 PM EDT [facility] NRBC 0.0 <1.0 % LAB HEMETOLOGY METHOD 08/10/2024 12:28 PM EDT [facility] NRBC Absolute 0.00 <0.10 K/mcL LAB HEMETOLOGY METHOD 08/10/2024 12:28 PM EDT [facility] Blood Venous blood specimen / Unknown Venipuncture / Unknown 08/10/2024 6:24 AM EDT 08/10/2024 11:12 AM EDT us Kenny Malave MD LAB BLOOD ORDERABLES Final Resul t [facility] [address] [place] [address], documented in this encounter Visit Diagnoses Diagnosis Essential (primary) hypertension Unspecified essential hypertension documented in this encounter Care Teams Manager Psychology Relationship Specialty Start Date End Date Alan Chanel MD [address] [place] [address] Dr Orellana [facility] MAGEN Kruger PCP - General Internal Medicine 03/12/24 documented as of this encounter
--- OUTSIDE RECORDS SUMMARY | 2024-08-19 14:17 | XMS_ITS | Encounter Summary ---
Author Organization [facility] Address [address] [place] [address] Care Team Providers Care Inverform Machine Operator Name Role Phone Alan Chanel MD Primary Care Provider Encounter Details Date Type Department Care Team (Late st Contact Info) Description 04/22/2024 Lab Requisition [facility] [address] [facility] [place] [address] Ever Reyna MD [address] [place] [address] Encounter for other general examination Social History [...] LAB CHEMISTRY METHOD 04/22/2024 11:08 AM EST [facility] Potassium 3.6 3.5 - 5.5 mmol/L LAB CHEMISTRY METHOD 04/22/2024 11:08 AM EST [facility] Chloride 91(L) 96 - 110 mmol/L LAB CHEMISTRY METHOD 04/22/2024 11:08 AM EST [facility] CO2 26 21 - 32 mmol/L LAB CHEMISTRY METHOD 04/22/2024 11:08 AM [facility] Anion Gap 10 3 - 11 LAB CHEMISTRY METHOD 04/22/2024 11:08 AM [facility] Glucose 77 70 - 100 mg/dL LAB CHEMISTRY METHOD 04/22/2024 11:08 AM [facility] BUN 10 5 - 25 mg/dL LAB CHEMISTRY METHOD 04/22/2024 11:08 AM [facility] Creatinine 0.55(L) 0.70 - 1.30 mg/dL LAB CHEMISTRY METHOD 04/22/2024 11:08 AM [facility] LAB eGFR 104 >=60 mL/min/1. 73m2 LAB CHEMISTRY METHOD 04/22/2024 11:08 AM [facility] Comment:Calculation based on the??Chronic Kidney Disease Epidemiology Collaboration (CKD-EPI) equation refit??without adjustment for race. BUN/Creatinine Ratio 18.2 LAB CHEMISTRY METHOD 04/22/2024 11:08 AM [facility] Calcium 8.8 8.5 - 10.5 mg/dL LAB CHEMISTRY METHOD 04/22/2024 11:08 AM [facility] Blood Venous blood specimen / Unknown Venipuncture / Unknown 04/22/2024 5:40 AM EST 04/22/2024 10:03 AM EST us Ever Reyna MD LAB BLOOD ORDERABLES Final Res ult [facility] [address] [place] [address], documented in this encounter Visit Diagnoses Diagnosis Encounter for other general examination documented in this encounter Care Teams Inverform Machine Operator Relationship Specialty Start Date End Date Alan Chanel MD [address] [place] [address] Reyna [address] [place] PCP - General Internal Medicine 03/12/24 documented as of this encounter
--- OUTSIDE RECORDS SUMMARY | 2024-08-19 14:17 | XMS_ITS | Encounter Summary ---
Author Organization [facility] Address [address] [place] [address] Care Team Providers Care Commodity Merchant Name Role Phone Alan Chanel MD Primary Care Provider [phone] Encounter Details Date Type Department Care Team (Late st Contact Info) Description 04/17/2024 Lab Requisition [facility] Lab [address] [place] [address] Ever Reyna MD [address] [place] [id number] Encounter for other general examination Social History [...] AM EST) WBC 4.4(L) 4.8 - 10.8 K/[facility] LAB HEMETOLOGY METHOD 04/17/2024 11:[address] [facility] RBC 4.20(L) 4.50 - 5.50 M/[facility] LAB HEMETOLOGY METHOD 04/17/2024 11:[address] [facility] Hemoglobin 11.8(L) 13.5 - 17.5 g/dL LAB HEMETOLOGY METHOD 04/17/2024 11:[address] [facility] Hematocrit 35.2(L) 42.0 - 54.0 % LAB HEMETOLOGY METHOD 04/17/2024 11:[address] [facility] MCV 84.2 79.0 - 98.0 FL LAB HEMETOLOGY METHOD 04/17/2024 11:[address] [facility] MCH 28.2 27.0 - 32.0 pcg LAB HEMETOLOGY METHOD 04/17/2024 11:[address] [facility] MCHC 33.5 32.0 - 37.0 g/dL LAB HEMETOLOGY METHOD 04/17/2024 11:[address] [facility] RDW 13.4 11.0 - 15.0 % LAB HEMETOLOGY METHOD 04/17/2024 11:[address] [facility] Platelets 467(H) 130 - 400 K/mcL LAB HEMETOLOGY METHOD 04/17/2024 11:[address] [facility] MPV 8.5 7.0 - 11.0 FL LAB HEMETOLOGY METHOD 04/17/2024 11:[address] [facility] NRBC 0.0 <1.0 % LAB HEMETOLOGY METHOD 04/17/2024 11:[address] [facility] NRBC Absolute 0.00 <0.10 K/mcL LAB HEMETOLOGY METHOD 04/17/2024 11:[address] [facility] Blood Venous blood specimen / Unknown Venipuncture / Unknown 04/17/2024 6:06 AM EST 04/17/2024 10:27 AM EST us Ever Reyna MD LAB BLOOD ORDERABLES Final Res ult [facility] [address] [place] [address], * (ABNORMAL) Comprehensive metabolic panel (04/17/2024 6:06 AM EST) Sodium 132(L) 133 - 145 mmol/L LAB CHEMISTRY METHOD 04/17/2024 12:[address] [facility] Potassium 4.5 3.5 - 5.5 mmol/L LAB CHEMISTRY METHOD 04/17/2024 12:[address] [facility] Chloride 96 96 - 110 mmol/L LAB CHEMISTRY METHOD 04/17/2024 12:[address] [facility] CO2 27 21 - 32 mmol/L LAB CHEMISTRY METHOD 04/17/2024 12:[address] [facility] Anion Gap 9 3 - 11 LAB CHEMISTRY METHOD 04/17/2024 12:[address] [facility] Glucose 88 70 - 100 mg/dL LAB CHEMISTRY METHOD 04/17/2024 12:[address] [facility] BUN 8 5 - 25 mg/dL LAB CHEMISTRY METHOD 04/17/2024 12:[address] [facility] Creatinine 0.65(L) 0.70 - 1.30 mg/dL LAB CHEMISTRY METHOD 04/17/2024 12:[address] [facility] eGFR 99 >=60 mL/min/1. 73m2 LAB CHEMISTRY METHOD 04/17/2024 12:[address] [facility] Comment:Calculation based on the??Chronic Kidney Disease Epidemiology Collaboration (CKD-EPI) equation refit??without adjustment for race. BUN/Creatinine Ratio 12.3 LAB CHEMISTRY METHOD 04/17/2024 12:[address] [facility] Calcium 9.1 8.5 - 10.5 mg/dL LAB CHEMISTRY METHOD 04/17/2024 12:[address] [facility] AST (SGOT) 107(H) 10 - 42 unit/L LAB CHEMISTRY METHOD 04/17/2024 12:[address] [facility] ALT (SGPT) 71(H) 10 - 60 unit/L LAB CHEMISTRY METHOD 04/17/2024 12:[address] [facility] Alkaline Phosphatase 175(H) 42 - 121 unit/L LAB CHEMISTRY METHOD 04/17/2024 12:[address] [facility] Total Protein 6.6 6.0 - 8.0 g/dL LAB CHEMISTRY METHOD 04/17/2024 12:[address] [facility] Albumin 3.2 3.2 - 5.0 g/dL LAB CHEMISTRY METHOD 04/17/2024 12:[address] [facility] Total Bilirubin 0.3 0.0 - 1.4 mg/dL LAB CHEMISTRY METHOD 04/17/2024 12:[address] [facility] Blood Venous blood specimen / Unknown Venipuncture / Unknown 04/17/2024 6:06 AM EST 04/17/2024 10:27 AM EST us vEer Reyna MD LAB BLOOD ORDERABLES Final Res ult [facility] [address] [place] [address], documented in this encounter Visit Diagnoses Diagnosis Encounter for other general examination documented in this encounter Care Teams Commodity Merchant Relationship Specialty Start Date End Date Alan Chanel MD [address] [place] [address] [address] MAGEN Kruger PCP - General Internal Medicine 03/12/24 documented as of this encounter
== END 2024-08-18 11:46 | disposition home or self-care (01) ==
LOC: HO.HOSX 11:45
PROVIDERS: Visit Provider Physician Assistant
DX: M25.562 Pain in left knee (principal); S82.142D Displaced bicondylar fracture of left tibia, subsequent encounter for closed fracture with routine healing
CPT/HCPCS: 73562; 99212

== ENCOUNTER 2024-09-30 11:40 | Inpatient (IN) | payer MEDICARE, MEDICAID, SELFPAY ==
[2024-09-30] VITALS (7 sets, daily range): BP systolic 119–172; BP diastolic 68–104; PULSE 83–121; RESP 16–22; TEMP 36.6–36.9; O2SAT 93–99; BMI 18.6
--- NOTE | ~2024-09-30 | MR_ITS ---
EXAMINATION: MR LUMBAR SPINE WITHOUT CONTRAST CLINICAL INFORMATION: Back pain with urinary retention. COMPARISON: Lumbar spine radiographs 04/02/2024. CT abdomen pelvis 09/30/2024. TECHNIQUE: Multiplanar multisequence MR imaging of the lumbar spine was done without IV contrast. Examination was performed on a 1.5 Anna Siemens magnet, utilizing standard sequences. FINDINGS: CORONAL ALIGNMENT: -Mild to moderate levoconvex scoliosis. SAGITTAL ALIGNMENT: - Normal lordosis. LUMBOSACRAL JUNCTION: -Normal. There are 5 [id number] lumbar-type vertebral bodies. VERTEBRAL BODIES/BONE MARROW: -Subacute appearing vertebra, of L1, with 5 mm of retropulsion of bone into the central canal. -Mild superior endplate subacute compression deformity L3, 30% loss of height. No retropulsion of bone. -Minimal inferior endplate subacute compression deformity of L5. -No additional compression deformities or bone marrow edema. No abnormal infiltrating bone marrow signal. Scattered Schmorl's nodes within the endplates are noted. -There is a 6 mm degenerative anterolisthesis of L4 on L5. DISCS: -Severe loss of disc height and signal at L5-S1. -Moderate loss at L4-5, and mild loss at the levels above L4. SPINAL CANAL: -No abnormal developmental findings. CONUS MEDULLARIS: -Terminates at superior endplate of L2. Morphology and signal is normal. INTRADURAL NERVE ROOTS: - No abnormal nerve root clumping or mass identified. -Severe central canal stenosis at L4-5. Axial Disc Space Images: T12-L1: Moderate central canal stenosis at the endplate of L1 due to retropulsion of bone by 5 mm. No compression of the conus. No signal abnormality within the conus. Mild bilateral neural foraminal narrowing at T12-L1. L1-L2: Vertebral plan of L1, subacute. No central canal or significant neural foraminal narrowing. L2-L3: Subacute compression deformity of L3 with 30% loss of height. No retropulsion of bone. There is a shallow diffuse disc bulge present extending into both foraminal zones, mild bilateral hypertrophic facet changes, and prominent posterior ligamentous thickening/infolding. The combination of findings is resulting in mild to moderate central canal stenosis, mild to moderate bilateral subarticular recess stenosis, and mild bilateral neural foraminal stenosis. L3-L4: Shallow diffuse disc bulge is present extending into both foraminal zones. Moderate hypertrophic degenerative facet changes, with posterior ligamentous thickening/infolding. There is moderate central canal stenosis, moderate bilateral subarticular recess stenosis, and mild bilateral neural foraminal stenosis. L4-L5: There is disc uncovering secondary to 6 mm of anterolisthesis. Severe hypertrophic degenerative facet changes are present bilaterally with severe posterior ligamentous thickening/infolding. There is severe central canal stenosis, with the central canal being reduced to 4 mm in AP diameter. There is severe bilateral subarticular recess stenosis with likely impingement of the traversing L5 nerve roots bilaterally. There is moderate right and mild left neural foraminal narrowing. L5-S1: Subacute appearing minimal compression deformity inferior endplate of L5. Diffuse shallow disc bulge is somewhat asymmetrically prominent into the left neural foramen and lateral to foramen. Mild to moderate hypertrophic degenerative facet changes bilaterally with posterior ligamentous thickening/infolding. Combination of findings is resulting in moderate central canal stenosis, moderate bilateral subarticular recess stenosis with contact but no definite impingement of the traversing S1 roots bilaterally. There is mild right and moderate to severe left neural foraminal impingement. There may be mild impingement of the exiting left L5 nerve root. IMAGED SI JOINTS: -Mild to moderate degenerative arthrosis bilaterally. PARAVERTEBRAL AND INCLUDED EXTRASPINAL SOFT TISSUES: -Severe hydronephrosis of the right kidney. This is incompletely imaged. -Atheromatous aorta without aneurysm. -Normal-appearing gallbladder. -Left kidney demonstrates extrarenal pelvis. MR/MR lumbar spine wo con IMPRESSION: 1. There is levoconvex scoliosis. 2. There are subacute appearing compression deformities of L1 (severe, with 5 mm retropulsion of bone), the superior endplate of L3 by approximately 30%, and minimally the inferior endplate of L5 by approximately 10%. 3. There is moderate central canal stenosis at the L1 level due to retropulsed bone from the vertebral plana deformity. There is no definite impingement of the conus or signal abnormality. 4. A 6 mm degenerative anterolisthesis at L4-5 results in severe central canal stenosis and severe bilateral subarticular recess stenosis. 5. Moderate central canal stenosis and moderate bilateral subarticular recess stenosis at L5-S1, with moderate to severe left neural foraminal stenosis. See above for details. 6. See the body of the report for additional ancillary findings, including probable severe right hydronephrosis. Electronically signed by: Anurag Crow MD 10/01/2024 03:34 PM EDT RP
--- NOTE | ~2024-09-30 | IR_ITS ---
EXAMINATION: XR LUMBAR EPIDURAL. CLINICAL INFORMATION: Low back pain rating the right leg. COMPARISON: None available. TECHNIQUE: Following explaining fluoroscopy-guided lumbar epidural procedure, benefits and risk, a written consent was obtained. Patient was placed prone on fluoroscopy table and optimal site overlying the L4-5 disc level was selected and marked on the skin. The marked area was cleaned and draped in usual sterile manner. A 20-gauge spinal needle was then inserted from the skin into the right epidural space and 2 mL of nonionic contrast was injected. A single image was obtained for documentation. Subsequently 5 mL/30 gm of Celestone with 3 mL of 1% lidocaine injected in the epidural space and needle withdrawn. Complete hemostasis achieved at puncture site. Patient targeted procedure faintly well except for similar symptoms of right radiculopathy were felt similar to prior to the exam. Simple Band-Aid was applied postprocedure at the puncture site. FINDINGS: There is mild degenerative disc changes L5-S1 disc level. Visible vertebral heights and alignment is normal. There is right posterior tibial contrast at the L4-5 disc level. FLUOROSCOPY TIME: 1.1 minute DOSE AREA PRODUCT: Routine 0.159 uGy-m2 (microgray-meter squared) IR/IR inj epidural lumb/sac IMPRESSION: Successful fluoroscopy-guided right para midline epidural steroid injection performed without immediate complications. Electronically signed by: Abel Luna MD 10/05/2024 01:04 PM EDT
--- NOTE | ~2024-09-30 | CT_ITS ---
EXAMINATION: CT ABDOMEN PELVIS WITHOUT IV CONTRAST HISTORY: N/V, guarding on PE, lumbar back pain COMPARISON: There are no prior studies for comparison. TECHNIQUE: CT scan of the abdomen and pelvis was performed without contrast using standard departmental protocol. Coronal and sagittal reformatted images were generated and reviewed. Oral contrast material was not administered at the request of the referring physician. This CT exam was performed with one or more of the following dose reduction techniques: automated exposure control, adjustment of the mA and/or kV according to patient size, use of iterative reconstruction technique. DLP: 457 mGy-cm FINDINGS: The examination is limited by patient motion and a paucity of abdominal fat. LOWER CHEST: There is subsegmental atelectasis versus scarring at the left lung base. The visualized right lung base is clear. There is no pleural effusion. CARDIOVASCULATURE: The heart is normal in size. There is no pericardial effusion. LIVER: The liver is normal in size and contour. The liver has an unremarkable unenhanced appearance. GALLBLADDER / BILE DUCTS: The gallbladder is contracted. There are probable tiny calculi in the fundus of the gallbladder. There is no intra or extrahepatic biliary ductal dilatation. SPLEEN: The spleen is normal in size and has an unremarkable unenhanced appearance. PANCREAS: The pancreas has an unremarkable unenhanced appearance. ADRENAL GLANDS: Unremarkable. KIDNEYS/RETROPERITONEUM: There are tiny nonobstructing calculi at the upper pole of the right kidney. There is severe right hydronephrosis. The ureter is not dilated compatible with UPJ obstruction. No left renal calculi are identified. There is mild hydronephrosis without hydroureter. LYMPH NODES: No retroperitoneal lymphadenopathy is identified in the abdomen or pelvis. VASCULATURE: The abdominal aorta demonstrates atherosclerotic calcification, but is normal in caliber. Evaluation for dissection is not possible without IV contrast material. MESENTERY/PERITONEUM: No free fluid. No masses. There is no free intraperitoneal gas. STOMACH: The stomach is collapsed, limiting evaluation. SMALL BOWEL: The small bowel is normal in caliber. COLON: There is a moderate amount of stool throughout the colon. There is diverticulosis of the sigmoid colon without evidence of diverticulitis. APPENDIX: The appendix is not seen, however no inflammatory changes are seen adjacent to the cecum. URINARY BLADDER/PELVIC ORGANS: The urinary bladder is unremarkable. The uterus has an unremarkable unenhanced appearance. BONES / SOFT TISSUES: There is a severe compression deformity of L1 and a mild to moderate compression deformity of L3. CT/CT abdomen pelvis wo IV con IMPRESSION: 1. Limited examination due to a paucity of abdominal fat and lack of intravenous and oral contrast material. 2. Severe right hydronephrosis and mild left hydronephrosis. 3. Moderate amount of stool throughout the colon. Sigmoid diverticulosis without evidence of diverticulitis. 4. Severe compression deformity of L1 and mild to moderate compression deformity of L3. 5. Evaluation for dissection is not possible without intravenous contrast material. Electronically signed by: Rios Castellanos MD 09/30/2024 03:05 PM EDT
--- NOTE | 2024-09-30 12:03 | ECG_ITS ---
Test Reason : NVD Blood Pressure : */* mmHG Vent. Rate : 89 BPM Atrial Rate : 89 BPM P-R Int : 158 ms QRS Dur : 62 ms QT Int : 356 ms P-R-T Axes : 89 8 41 degrees QTcB Int : 433 ms Sinus rhythm with Premature atrial complexes Septal infarct (cited on or before 24-Apr-2024) Abnormal ECG When compared with ECG of 24-Apr-2024 16:50, No significant change was found Referred By: Generic ED Physician Electronically Signed By: RUTH ANN JOSEPH MD
--- NOTE | 2024-09-30 12:20 | ED.ABDPAIN ---
HPI - Abdominal Pain General Chief Complaint: Abdominal Pain Stated Complaint: ABD/BACK PAIN,DIZZY,NAUSEA PER EMS Time Seen by Provider: 09/30/24 12:21 Source: patient Mode of arrival: EMS History of Present Illness ED Provider: Chayito Lucas PA-C HPI narrative: 74 yo female who is accompanied by her daughter with PMHx of SIADH, arthritis, depression, anxiety, osteoporosis, HLD, COPD, HTN. presents to the ED due to 1 day of lumbar back pain radiating into upper abdomen. Patient states yesterday she was opening a window using both arms to open it vertically when she felt instant pain of her lumbar back which then radiated into her upper abdomen in a band-like pattern on both sides. She reports later on in the day feeling nauseous with 1 episode of vomiting. She has been taking Tylenol and naproxen for pain without effect. She states she still feels nauseous but has not vomited today. She states she was feeling dizzy and weak before leaving the house today. She also endorses 3 days with no bowel movement but is passing flatus. Denies LOC, or headstrike. Denies chest pain, shortness of breath, diarrhea, black/tarry stool, urinary symptoms. MD elicited complaint: abdominal pain and other (Lumbar back) Pertinent past history: other (Osteoporosis, HTN, HLD, HX of compression fracture L4) Onset (ago): day(s) (1) Pain Consistency: constant Location: epigastric and other (Lumbar back) Severity: moderate Quality: stabbing, aching and sharp Radiation: epigastric Migration to: epigastric Exacerbating factors: movement Relieving factors: nothing Context: other (Opening a window) Associated symptoms: nausea and vomiting Treatments prior to arrival: NSAIDs and other (Tylenol) Related Data Home Medications ?Medication ?Instructions ?Recorded ?Confirmed aspirin 81 mg chewable tablet 81 mg PO DAILY 02/22/20 04/24/24 (Doyle Chewable Low Dose Aspirin) calcium carbonate (Calcium 600) 600 mg PO DAILY 01/10/22 04/24/24 multivitamin 1 tab PO DAILY 04/24/24 04/24/24 Previous Rx's ?Medication ?Instructions ?Recorded lorazepam 0.5 mg tablet 0.5 mg PO BID PRN anxiety 30 days 11/14/22 #60 tabs sertraline 50 mg tablet 50 mg PO DAILY 30 days #30 tabs 02/05/24 lisinopril 5 mg tablet 5 mg PO DAILY #90 tabs 02/27/24 lidocaine 5 % topical patch 2 patch topical DAILY #30 ea 04/02/24 (Lidoderm) tramadol 50 mg tablet 50 mg PO Q8H PRN pain #10 tabs 04/02/24 Allergies Allergy/AdvReac Type Severity Reaction Status Date / Time No Known Allergies Allergy Verified 09/30/24 11:52 [No Known Allergies*] Review of Systems Review of Systems CONST: Negative for fever, body aches and chills. HENT: Negative for neck pain/stiffness, headache, congestion, sore throat, swelling. EYES: Negative for discharge/pain or vision changes. RESP: Negative for cough/hemoptysis and shortness of breath. CV: Negative chest pain, difficulty breathing, palpitations. ABD: POS epigastric pain, nausea, vomiting : Negative increase frequency, dysuria, blood in urine or stool. MUSC: Negative for muscle aches, edema. POS lumbar back pain SKIN: Negative rash, lesions/sores. NEURO: Negative headache, dizziness, weakness. Yes all other systems are reviewed and are negative [facility] Past Medical History Attestation statement: The following information was validated with the patient. Source: old records reviewed and obtained from family (Daughter at bedside corroborating history) Medical History SIADH (syndrome of inappropriate ADH production) De Quervain's tenosynovitis, left Arthritis of hand, left, degenerative Hearing impairment Smoker Depression Anxiety Osteoporosis Urinary urgency Urinary incontinence Varicose veins of bilateral lower extremities with pain Peripheral polyneuropathy Pure hypercholesterolemia Anemia Compression fracture of L4 vertebra with routine healing Lumbar degenerative disc disease Benign essential hypertension COPD (chronic obstructive pulmonary disease) Surgical History History of cystoscopy History of bilateral cataract extraction Family History Family History Father No problems noted. Mother Lung cancer Sister Down syndrome Maternal Grandfather Lung cancer Maternal Grandmother Lung cancer Social History Social History Household Members: None Housing: House Alcohol intake: never Patient Tobacco Use Status: Former Tobacco user Tobacco use type: Cigarette Cigarette Packs Per Day: 2 Cigarettes Per Day: 40 Smoked in Last 30 Days: No e-Cigarette/Vaping Use: Never Used Second Hand Smoke Exposure: Yes Use of substances other than those prescribed or required for medical reasons: No Advance Directives: Yes Advance Directives on File: Yes Advance Directives Date on File: 04/10/24 service: No Current occupational status: retired Cognitive needs: No Hearing needs: Yes Vision needs: Yes (Glasses) Physical Exam ED Vital Signs: Vital Signs - 24 hr 09/30/24 11:52 09/30/24 14:26 09/30/24 16:29 Temperature 98.2 F 98.5 F 98.5 F Pulse Rate 100 92 Respiratory Rate 16 16 22 H Blood Pressure 166/84 H 146/77 H 133/73 Pulse Oximetry 98 96 93 Oxygen Delivery Method Room Air Room Air Room Air 09/30/24 18:04 09/30/24 18:04 09/30/24 18:04 Temperature 97.9 F Pulse Rate 105 H 105 H 105 H Respiratory Rate 17 Blood Pressure 126/76 131/72 126/76 Pulse Oximetry 97 Oxygen Delivery Method Room Air 09/30/24 18:06 Temperature Pulse Rate 121 H Respiratory Rate Blood Pressure 142/78 H Pulse Oximetry Oxygen Delivery Method BMI result Body Mass Index 18.6 GENERAL APPEARANCE: ?AxOx4, generally well-appearing, no acute distress. HEENT: ?NC, AT. MMM. EOMI, clear conjunctiva, oropharynx clear. NECK: ?Supple without lymphadenopathy.? No stiffness or restricted ROM. HEART:? tachycardic rate (100bpm) and regular rhythm, normal S1/S1, no m/r/g LUNGS:? CTAB, diminished breath sounds. No crackles or wheezes are heard. ABDOMEN: ?non-distended, tender epigastric region, mild guarding, bowel sounds in all 4 quads. BACK: No CVAT, no obvious deformity. Midline and paraspinal lumbar TTP EXTREMITIES: ?Without cyanosis, clubbing or edema. NEUROLOGICAL: ?Grossly nonfocal. Alert and oriented, moving all 4 extremities. Skin: ?Warm and dry without any rash. Course Reevaluation(s) Reevaluation #1: I Lolita Mejia PA-C have accepted care of the patient and signed out pending admission Placing request now Medical Decision Making Medical Decision Making MDM Narrative: 74 yo female who is accompanied by her daughter with PMHx of SIADH, arthritis, depression, anxiety, osteoporosis, HLD, COPD, HTN. presents to the ED due to 1 day of lumbar back pain radiating into upper abdomen. VSS, in no acute distress, nontoxic appearing. Patient is mildly uncomfortable due to lumbar back pain. On physical exam patient has tenderness to palpation over midline spine, and paraspinal lumbar muscles. No bony step-offs palpated. Tenderness to palpation over the epigastric aspect, some mild guarding when anticipating my touch. Normoactive bowel sounds in all 4 quadrants. Abdomen without ecchymosis of the flank/umbilical region. No abdominal masses seen or palpated. Negative Rodrigues's sign, no rebound tenderness. Not actively vomiting while in the department. Cardiac exam reveals mild tachycardia of 100 beats per minute, no murmurs rubs or gallops, no carotid bruit. Lungs CTA bilaterally however there is diminished breath sounds. No crackles, rales or rhonchi. Labs reveal hyponatremia at 125, and hypochloremia at 90. Patient does have SIADH, hyponatremia and hypochloremia exacerbated likely due to volume depletion from vomiting. Discussed with my attending Dr. Dariusz Guzman who advised to start the patient on 1L of normal saline for correction. EKG with no ST elevation/depression or T wave abnormalities, initial troponin WNL. Do not suspect ACS at this time. UA reveals 2+ protein, 1+ leukocyte esterase, 6-10 WBCs, trace bacteria, with 6-10 squamous epithelial cells. These findings are likely due to contaminated catch, patient has no urinary symptoms. Do not suspect aortic dissection as there was no trauma, BP stable, no diaphoresis, ripping chest pain/mid back pain. Awaiting CT abdomen pelvis to evaluate for epigastric pain. Course 14:49- Patient complaining of back pain, cannot get comfortable in stretcher. Will give IV 1,000mg IV Tylenol, 4% lidocaine patch for lumbar aspect, and 2mg of morphine for pain management. 17:04- CT scan reveals non obstructing renal calculi at the upper pole of the right kidney with severe hydronephrosis of R kidney, with mild hydronephrosis of L kidney without renal calculi. There is severe compression deformity of L1 and mild to moderate compression deformity of L3. We will obtain a postvoid bladder scan, before voiding there was 380 mL in the bladder. We will place Mejia catheter to ensure complete emptying of the bladder. Will consult urology with findings for close follow-up. 17:38- Post void bladder scan reveals >300mL retained in bladder after voiding. Will place Mejia catheter to allow for complete draining. Will consult to urology for recommendations. 18:48- SAFIA performed to evaluate for possible fecal impaction causing urine retention. There were several small pellet fecal matter in the rectal vault. No large fecal impaction observed on exam. Patient being signed out to Lolita Mejia PA-C to resume care. Currently awaiting consult to hospitalist team for admission. Differential Diagnosis Differential Diagnoses: The differential diagnosis associated with the presentation includes Pancreatitis Electrolyte imbalance SBO Lumbar fracture Lumbar strain UTI Renal calculi Admission/Observation Consideration of admission/observation: Escalation of care including admission/observation considered Lab Data MDM Lab Attestation statement: I reviewed the patient's lab results. 09/30/24 13:36 09/30/24 13:36 Labs: Lab Results 09/30/24 Range/Units 13:36 WBC 4.9 (4.8-10.8) X10*3/uL RBC 3.81 L (4.20-5.50) X10*6/uL Hgb 10.6 L (12.0-16.0) g/dl Hct 30.4 L (37.0-47.0) % MCV 79.8 L (80.0-98.0) fL MCH 27.8 (27.0-33.0) pg MCHC 34.9 (31.0-35.0) g/dl RDW 15.1 (11.0-16.0) % Plt Count 350 (160-400) X10*3/uL MPV 8.0 L (9.4-12.3) fL Immature Gran % (Auto) 0.8 H (0.0-0.4) % Neut % (Auto) 78.9 H (45-73) % Lymph % (Auto) 9.4 L (20-40) % Upson % (Auto) 10.5 (2-11) % Eos % (Auto) 0.0 (0-4) % Baso % (Auto) 0.4 (0-2) % Lymph # (Auto) 0.5 L (1.2-4.9) X10*3/uL Upson # (Auto) 0.5 (0.1-1.2) X10*3/uL Eos # (Auto) 0.0 (0.0-0.4) X10*3/uL Baso # (Auto) 0.0 (0.0-0.2) X10*3/uL Abs Immat Gran (auto) 0.04 H (0.00-0.03) X10*3/uL Absolute Neuts (auto) 3.9 (2.0-8.3) x10*3/uL Absolute Nucleated RBC 0.000 (0.0-0.012) X10*3/uL Nucleated RBC % (auto) 0.0 (0.0-0.2) /100WBC Sodium 125 L (135-145) mmol/L Potassium 4.1 (3.3-5.1) mmol/L Chloride 90 L (96-108) mmol/L Carbon Dioxide 23 (22-29) mmol/L Anion Gap 16 (12-20) BUN 14 (9-16) mg/dL Creatinine 0.58 (0.5-1.4) mg/dL Estim Creat Clear Calc 68.9 Estimated GFR > 60 Random Glucose 98 (60-115) mg/dL Calcium 9.4 (8.4-10.2) mg/dL Total Bilirubin 0.4 (0.0-1.0) mg/dL AST 38 H (5-31) U/L ALT 23 (0-31) U/L Alkaline Phosphatase 67 (39-117) U/L Troponin I High Sens 5.2 (<3.5-17.0) ng/L Total Protein 7.2 (6.5-8.0) g/dL Albumin 4.1 (3.5-5.0) g/dL Lipase 15 (8-78) U/L Urine Color Yellow Urine Appearance Clear Urine pH 6.5 (5.0-9.0) Ur Specific [place] 1.015 (1.005-1.025) Urine Protein 100 (2+) H (Neg-Trace) mg/dL Urine Glucose (UA) Negative (Negative) mg/dL Urine Ketones 40 (Negative) mg/dL Urine Blood Negative (Negative) Urine Nitrite Negative (Negative) Ur Leukocyte Esterase Small (1+) H (Negative) Urine RBC 0-2 (0-2) /HPF Urine WBC 6-10 H (0-5) /HPF Ur Squamous Epith Cells 6-10 (0-2) /HPF Urine Bacteria Trace (None Seen) Hyaline Casts 0-2 (0-2) /LPF Independent Interpretation I performed an independent interpretation of an: EKG and CT Scan Interpretation: EKG: Vent. Rate : 89 BPM Atrial Rate : 89 BPM P-R Int : 158 ms QRS Dur : 62 ms QT Int : 356 ms P-R-T Axes : 89 8 41 degrees QTcB Int : 433 ms Sinus rhythm with Premature atrial complexes Septal infarct (cited on or before 24-Apr-2024) Abnormal ECG Radiology Impression Discussion of test interpretation with radiology: I have reviewed the radiologist's reading. Radiologist Impression: CT abdomen/pelvis FINDINGS: The examination is limited by patient motion and a paucity of abdominal fat. LOWER CHEST: There is subsegmental atelectasis versus scarring at the left lung base. The visualized right lung base is clear. There is no pleural effusion. CARDIOVASCULATURE: The heart is normal in size. There is no pericardial effusion. LIVER: The liver is normal in size and contour. The liver has an unremarkable unenhanced appearance. GALLBLADDER / BILE DUCTS: The gallbladder is contracted. There are probable tiny calculi in the fundus of the gallbladder. There is no intra or extrahepatic biliary ductal dilatation. SPLEEN: The spleen is normal in size and has an unremarkable unenhanced appearance. PANCREAS: The pancreas has an unremarkable unenhanced appearance. ADRENAL GLANDS: Unremarkable. KIDNEYS/RETROPERITONEUM: There are tiny nonobstructing calculi at the upper pole of the right kidney. There is severe right hydronephrosis. The ureter is not dilated compatible with UPJ obstruction. No left renal calculi are identified. There is mild hydronephrosis without hydroureter. LYMPH NODES: No retroperitoneal lymphadenopathy is identified in the abdomen or pelvis. VASCULATURE: The abdominal aorta demonstrates atherosclerotic calcification, but is normal in caliber. Evaluation for dissection is not possible without IV contrast material. MESENTERY/PERITONEUM: No free fluid. No masses. There is no free intraperitoneal gas. STOMACH: The stomach is collapsed, limiting evaluation. SMALL BOWEL: The small bowel is normal in caliber. COLON: There is a moderate amount of stool throughout the colon. There is diverticulosis of the sigmoid colon without evidence of diverticulitis. APPENDIX: The appendix is not seen, however no inflammatory changes are seen adjacent to the cecum. URINARY BLADDER/PELVIC ORGANS: The urinary bladder is unremarkable. The uterus has an unremarkable unenhanced appearance. BONES / SOFT TISSUES: There is a severe compression deformity of L1 and a mild to moderate compression deformity of L3. CT/CT abdomen pelvis wo IV con IMPRESSION: 1. Limited examination due to a paucity of abdominal fat and lack of intravenous and oral contrast material. 2. Severe right hydronephrosis and mild left hydronephrosis. 3. Moderate amount of stool throughout the colon. Sigmoid diverticulosis without evidence of diverticulitis. 4. Severe compression deformity of L1 and mild to moderate compression deformity of L3. 5. Evaluation for dissection is not possible without intravenous contrast material. Independent Historian Clinical information obtained from an independent historian. History obtained from or confirmed by: Other (Daughter at bedside) External Record Review External record reviewed: Inpatient record, Office record and Outpatient record Chronic Conditions Patient?s care impacted by: Hypertension and Other (SIADH) Medications Administered Discontinued Medications Generic Name Dose Route Start Last Admin Trade Name Freq PRN Reason Stop Dose Admin Sodium Chloride 1,000 mls @ 999 mls/hr 09/30/24 14:34 09/30/24 17:24 Ns IV 09/30/24 15:34 Infused .Q1H1M ONE Infusion Acetaminophen 1,000 mg in 100 mls @ 400 mls/hr 09/30/24 14:47 09/30/24 17:25 Ofirmev IV 09/30/24 15:01 Infused ONCE ONE Infusion Lidocaine 1 patch 09/30/24 14:47 09/30/24 15:28 Lidocaine 4 % Patch Adh..Patch TRANSDERMA 09/30/24 14:48 1 patch ONCE ONE Administration Protocol Morphine Sulfate 2 mg 09/30/24 14:48 09/30/24 15:29 Morphine Sulfate 2 Mg/Ml Cartridge IVPUSH 09/30/24 14:49 2 mg ONCE ONE Administration Protocol Morphine Sulfate 2 mg 09/30/24 18:18 09/30/24 18:46 Morphine Sulfate 2 Mg/Ml Cartridge IVPUSH 09/30/24 18:19 2 mg ONCE ONE Administration Protocol Ondansetron HCl 4 mg 09/30/24 12:55 09/30/24 14:02 Ondansetron Odt 4 Mg Tab.Rapdis TRANSLINGU 09/30/24 12:56 4 mg ONCE ONE Administration Discharge Plan Discharge Patient Disposition: Admitted As Inpatient Print Language: Marshallese
[2024-09-30 13:42] LABS: MANUAL DIFF FLAG NO
[2024-09-30 13:49] LABS: Basophils Percent Auto 0.4 % (0-2); Hematocrit 30.4 % (37.0-47.0); Hemoglobin 10.6 g/dl (12.0-16.0); Imm Gran Abs Auto 0.04 X10*3/uL (0.00-0.03); Imm Gran Pct Auto 0.8 % (0.0-0.4); Lymphocytes Absolute Auto 0.5 X10*3/uL (1.2-4.9); Lymphocytes Percent Auto 9.4 % (20-40); Mean Corpuscular HGB Conc 34.9 g/dl (31.0-35.0); Mean Corpuscular Hemoglobin 27.8 pg (27.0-33.0); Mean Corpuscular Volume 79.8 fL (80.0-98.0); Monocytes Absolute Auto 0.5 X10*3/uL (0.1-1.2); Monocytes Percent Auto 10.5 % (2-11); Neutrophils Absolute Auto 3.9 x10*3/uL (2.0-8.3); Neutrophils Percent Auto 78.9 % (45-73); Platelet Count 350 X10*3/uL (160-400); Red Blood Count 3.81 X10*6/uL (4.20-5.50); Red Cell Distribution Width 15.1 % (11.0-16.0); White Blood Count 4.9 X10*3/uL (4.8-10.8)
[2024-09-30 13:51] LABS: Appearance Urine Clear; Color Urine Yellow; Glucose Urine UA Negative (Negative); Leukocyte Esterase Urine Small (1+) (Negative); Nitrite Urine Negative (Negative); PH 6.5 (5.0-9.0); Specific Gravity - Urine 1.015 (1.005-1.025); UMIC TRIGGER UACC YES; Urine Blood Negative (Negative); Urine Ketones 40 mg/dL (Negative); Urine Protein 100 (2+) mg/dL (Neg-Trace)
[2024-09-30 14:00] LABS: Alanine Aminotransferase 23 U/L (0-31); Albumin Level 4.1 g/dL (3.5-5.0); Alkaline Phosphatase 67 U/L (39-117); Anion Gap 16 (12-20); Aspartate Amino Transferase 38 U/L (5-31); Bilirubin Total 0.4 mg/dL (0.0-1.0); Blood Urea Nitrogen 14 mg/dL (9-16); Calcium 9.4 mg/dL (8.4-10.2); Carbon Dioxide 23 mmol/L (22-29); Chloride 90 mmol/L (96-108); Creatinine Clr Calc Pharmacy 68.9; Estimated Glomerular Filt Rate > 60; Glucose Random 98 mg/dL (60-115); Lipase 15 U/L (8-78); Potassium 4.1 mmol/L (3.3-5.1); Sodium 125 mmol/L (135-145); Total Protein 7.2 g/dL (6.5-8.0)
[2024-09-30] MEDS: Ondansetron ODT 4 MG TAB.RAPDIS TRANSLINGU (14:02)
[2024-09-30 14:04] LABS: Troponin-I High Sensitivity 5.2 ng/L (<3.5-17.0)
[2024-09-30 14:11] LABS: Bacteria Urine Trace (None Seen); Hyaline Casts Urine 0-2 /LPF (0-2); RBC Urine 0-2 /HPF (0-2); UACC Culture Trigger YES
--- OUTSIDE RECORDS SUMMARY | 2024-09-30 14:34 | XMS_ITS | Encounter Summary ---
Author Organization [facility] Address [address] [place] [address] Care Team Providers Care Operator Command Support Systems Name Role Phone Alan Chanel MD Primary Care Provider Encounter Details Date Type Department Care Team (Late st Contact Info) Description 06/08/2024 Lab Requisition [facility] Lab [address] [place] [address] Kenny Malave MD [address] [facility] [address] [place], [address] Chronic obstructive pulmonary disease, unspecified (CMS/HCC [...] LAB CHEMISTRY METHOD 06/08/2024 11:51 AM EST [facility] Potassium 5.0 3.5 - 5.5 [...] Resul t [facility] [address] [place] [address], * (ABNORMAL) Complete blood count (06/08/2024 7:16 AM EST) [facility] WBC 5.0 4.8 - 10.8 K/mcL LAB HEMETOLOGY METHOD 06/08/2024 10:15 AM [facility] RBC 3.80 3.80 - 4.80 M/mcL LAB HEMETOLOGY METHOD 06/08/2024 10:15 AM [facility] Hemoglobin 10.6(L) 11.5 - 16.0 g/dL LAB HEMETOLOGY METHOD 06/08/2024 10:15 AM [facility] Hematocrit 33.0(L) 35.0 - 47.0 % LAB HEMETOLOGY METHOD 06/08/2024 10:15 AM [facility] MCV 86.4 79.0 - 98.0 FL LAB HEMETOLOGY METHOD 06/08/2024 10:15 AM [facility] MCH 27.7 27.0 - 32.0 pcg LAB HEMETOLOGY METHOD 06/08/2024 10:15 AM [facility] MCHC 32.1 32.0 - 37.0 g/dL LAB HEMETOLOGY METHOD 06/08/2024 10:15 AM [facility] RDW 17.9(H) 11.0 - 15.0 % LAB HEMETOLOGY METHOD 06/08/2024 10:15 AM [facility] Platelets 516(H) 130 - 400 K/mcL LAB HEMETOLOGY METHOD 06/08/2024 10:15 AM [facility] MPV 8.5 7.0 - 11.0 FL LAB HEMETOLOGY METHOD 06/08/2024 10:15 AM [facility] NRBC 0.0 <1.0 % LAB HEMETOLOGY METHOD 06/08/2024 10:15 AM [facility] NRBC Absolute 0.00 <0.10 K/mcL LAB HEMETOLOGY METHOD 06/08/2024 10:15 AM EST [facility] Blood Venous blood specimen / Unknown Venipuncture / Unknown 06/08/2024 7:16 AM EST 06/08/2024 9:26 AM EST us Kenny Malave MD LAB BLOOD ORDERABLES Final Resul t [facility] [address] [place] [address], documented in this encounter Visit Diagnoses Diagnosis Chronic obstructive pulmonary disease, unspecified (CMS/HCC V24, CMS/HCC V28) documented in this encounter Care Teams Operator Command Support Systems Relationship Specialty Start Date End Date Alan Chanel MD [address] [place] [address] Dr [address] [place], [place] PCP - General Internal Medicine 03/12/24 documented as of this encounter
[2024-09-30] MEDS: Lidocaine 4 % Patch ADH..PATCH 1 PATCH TRANSDERMA (15:28)
[2024-09-30] MEDS: 0.9 % Sodium Chloride 1,000 ML 999 ML IV (15:28)
[2024-09-30] MEDS: Acetaminophen 1,000 MG/100 ML PIGGYBACK 400 MG IV (15:28)
[2024-09-30] MEDS: Morphine Sulfate 2 MG/ML CARTRIDGE IVPUSH ×2 (15:29→18:46)
--- NOTE | 2024-09-30 18:34 | PC.NURSE ---
Pt having urinary retention with a post-void residual of 337 ml after voiding on the commode 250ml; FC placed per orders, 16FR; pt tolerated well
--- NOTE | 2024-09-30 20:18 | P.HPHOSP_ITS ---
History of Present Illness Date of Service: 09/30/24 Attending physician on admission: Cinthia Handley Chief Complaint: Back pain Trevon Aguilar is a very pleasant 74 years old woman with past medical history significant for essential hypertension, osteoporosis, chronic hyponatremia due to SIADH and recent tibial fracture requiring rehab was brought to the emergency department due to persistent severe lower back pain that started last Saturday. The pain is described as sharp radiating to the abdomen. She also complained of nausea and vomiting. The pain started after he tried to open a window using both hand. She denied any fall or trauma. Patient also denied any dizziness, headache, loss of consciousness, diarrhea, fever, legs numbness or chills. She does have gait difficulty which has been attributed to recent tibial fracture. Patient complain of poor appetite. Her last bowel movement was 3 days ago. She had has been taking Tylenol and naproxen without significant improvement of the pain. She did not report any acute cardiopulmonary symptoms. She has an ongoing tobacco smoker. Patient's daughter was at bedside and contributed with HPI In the ED, she was found to have tachycardia. There is no hypotension, fever or tachypnea. Her blood workup was significant for anemia 10.6. There is no leukocytosis and platelets are normal. There is hyponatremia of 125 (baseline 129-131). There is no other electrolyte imbalances. LFTs and renal function are normal. ECG showed normal sinus rhythm, heart rate 89 beats per minute, T- wave abnormalities in anterior leads. Abdomen and pelvis CT scan without contrast showed severe right hydronephrosis and mild left hydronephrosis, moderate amount of stools, sigmoid diverticulitis without evidence of diverticulitis and severe compression of L1 and mild to moderate compression of L3. ED tx: Tylenol 1 mg IV, lidocaine patch, morphine 4 mg total IV Review of Systems 2 Review of Systems: All 12 systems were reviewed and normal except as noted in HPI. [facility] Medical History SIADH (syndrome of inappropriate ADH production) De Quervain's tenosynovitis, left Arthritis of hand, left, degenerative Hearing impairment Smoker Depression Anxiety Osteoporosis Urinary urgency Urinary incontinence Varicose veins of bilateral lower extremities with pain Peripheral polyneuropathy Pure hypercholesterolemia Anemia Compression fracture of L4 vertebra with routine healing Lumbar degenerative disc disease Benign essential hypertension COPD (chronic obstructive pulmonary disease) Family History Father No problems noted. Mother Lung cancer Sister Down syndrome Maternal Grandfather Lung cancer Maternal Grandmother Lung cancer Surgical History History of cystoscopy History of bilateral cataract extraction Social History Household Members: None Housing: House Alcohol intake: never Patient Tobacco Use Status: Former Tobacco user Tobacco use type: Cigarette Cigarette Packs Per Day: 2 Cigarettes Per Day: 40 Smoked in Last 30 Days: No e-Cigarette/Vaping Use: Never Used Second Hand Smoke Exposure: Yes Use of substances other than those prescribed or required for medical reasons: No Advance Directives: Yes Advance Directives on File: Yes Advance Directives Date on File: 04/10/24 service: No Current occupational status: retired Cognitive needs: No Hearing needs: Yes Vision needs: Yes (Glasses) Meds Allergies Allergy/AdvReac Type Severity Reaction Status Date / Time No Known Allergies Allergy Verified 09/30/24 11:52 [No Known Allergies*] Active Medications: Current Medications Acetaminophen (Acetaminophen 325 Mg Tablet) 975 mg PO Q6H SKIP Heparin Sodium (Porcine) (Heparin Sodium,Porcine 5,000 Unit/Ml Vial) 5,000 unit SUBCUT Q12H SKIP Melatonin (Melatonin 3 Mg Tablet) 6 mg PO BEDTIME PRN PRN Reason: Insomnia Oxycodone HCl (Oxycodone Hcl Immed Release 5 Mg Tablet) 5 mg PO Q6H PRN PRN Reason: back pain Sodium Chloride (0.9 % Sodium Chloride Flush 3 Ml Syringe) 3 ml IVFLUSH QSHIFT [facility] Home Medications ?Medication ?Instructions ?Recorded ?Confirmed ?Last Taken ?Type aspirin 81 mg chewable tablet 81 mg PO DAILY 02/22/20 09/30/24 09/29/24 History (Doyle Chewable Low Dose Aspirin) calcium carbonate (Calcium 600) 600 mg PO DAILY 01/10/22 09/30/24 09/29/24 History multivitamin 1 tab PO DAILY 04/24/24 09/30/24 09/29/24 History albuterol sulfate 90 mcg/actuation 1 inh inhalation Q4H PRN Wheezing 09/30/24 09/30/24 Unknown History aerosol inhaler fluticasone furoate 50 1 inh inhalation BID 09/30/24 09/30/24 09/29/24 History mcg-vilanterol 25 mcg/dose inhalation powder (Breo Ellipta) melatonin 3 mg tablet 6 mg PO BEDTIME 09/30/24 09/30/24 09/29/24 History naproxen 500 mg tablet 500 mg PO BID PRN pain 09/30/24 09/30/24 Unknown History sertraline 50 mg tablet 25 mg PO DAILY 09/30/24 09/30/24 09/29/24 History Physical Exam 2 Vital Signs and Narrative: Vital Signs: Last Vital Signs Temp 97.9 F 09/30/24 18:04 Pulse 121 H 09/30/24 18:06 Resp 17 09/30/24 18:04 BP 142/78 H 09/30/24 18:06 Pulse Ox 97 09/30/24 18:04 O2 Del Method Room Air 09/30/24 18:04 BMI result Body Mass Index 18.6 Constitutional - Awake and Alert, No apparent distress. Very pleasant and cooperative. Looks fatigued. HEENT - PERRL, EOMI Heart - mildly tachycardic, no murmurs. Lungs - Normal lung expansion, Normal respiratory effort, No respiratory distress, CTA bilaterally Abdomen - NT / ND; increased BS; No rebound or guarding Back - non tenderness to palpation, no sensation deficit. Extremities - no calf tenderness bilaterally, no swelling Musculoskeletal - Normal inspection, normal ROM Skin - Warm/Dry Neurological - Alert & oriented x3, strength 4/5 to the lower extremities. No sensory deficit to the lower extremities. Normal speech. No facial droop. Psychological - Appropriate affect Results Labs 09/30/24 13:36 09/30/24 13:36 Labs: Laboratory Results - last 24 hr 09/30/24 13:36 MCV 79.8 L MCH 27.8 MCHC 34.9 RDW 15.1 Plt Count 350 MPV 8.0 L Immature Gran % (Auto) 0.8 H Neut % (Auto) 78.9 H Lymph % (Auto) 9.4 L Tripp % (Auto) 10.5 Eos % (Auto) 0.0 Baso % (Auto) 0.4 Lymph # (Auto) 0.5 L Tripp # (Auto) 0.5 Eos # (Auto) 0.0 Baso # (Auto) 0.0 Abs Immat Gran (auto) 0.04 H Absolute Neuts (auto) 3.9 Absolute Nucleated RBC 0.000 Nucleated RBC % (auto) 0.0 Anion Gap 16 Estim Creat Clear Calc 68.9 Estimated GFR > 60 Random Glucose 98 Calcium 9.4 Total Bilirubin 0.4 AST 38 H ALT 23 Alkaline Phosphatase 67 Total Protein 7.2 Albumin 4.1 Lipase 15 Urine Color Yellow Urine Appearance Clear Urine pH 6.5 Ur Specific Deshler 1.015 Urine Protein 100 (2+) H Urine Glucose (UA) Negative Urine Ketones 40 Urine Blood Negative Urine Nitrite Negative Ur Leukocyte Esterase Small (1+) H Urine RBC 0-2 Urine WBC 6-10 H Ur Squamous Epith Cells 6-10 Urine Bacteria Trace Hyaline Casts 0-2 Imaging Radiologist's Impressions: Impressions Abdomen/Pelvis CT 09/30/24 14:34 IMPRESSION: 1. Limited examination due to a paucity of abdominal fat and lack of intravenous and oral contrast material. 2. Severe right hydronephrosis and mild left hydronephrosis. 3. Moderate amount of stool throughout the colon. Sigmoid diverticulosis without evidence of diverticulitis. 4. Severe compression deformity of L1 and mild to moderate compression deformity of L3. 5. Evaluation for dissection is not possible without intravenous contrast material. Electronically signed by: Rios Castellanos MD 09/30/2024 03:05 PM EDT RP Assessment and Plan (1) Intractable back pain: Status: Acute (2) Smoker: Status: Acute (3) Depression: Qualifiers: Depression Type: major depressive disorder Major depression recurrence: recurrent Active/Remission status: currently active Major depression episode severity: unspecified Qualified Code(s): F33.9 - Major depressive disorder, recurrent, unspecified Status: Acute Plan rTevon Aguilar is a 74 y/o woman admitted with: * Back pain likely 2/2 to compression fracture L1 and L3, intractable. Admit to hospitalist service for pain control. Continue acetaminophen 975 mg p.o. every 6 hours. Oxycodone 5 mg p.o. every 6 hours as needed. Check lumbar MRI to assess for spinal cord abnormality. Physical therapy. Fall precautions (patient and daughter educated). * Tachycardia, sinus. Likely secondary to pain. No hypotension or fever. Telemetry. Check lactic acid and blood cultures. * Urinary retention (post void bladder >300 ml). Status post indwelling urinary catheter placement by ED. Urology consult -Dr. Kaplan. * Presumed UTI. Start empiric IV antibiotic therapy with ceftriaxone. Urine culture obtained -will follow results. * History of chronic hyponatremia due to SIADH, sodium level lower than slightly lower than baseline today. Normal saline 1 L bolus given in the ED. she check sodium level now then every 4 hours. * Essential hypertension. Continue lisinopril. * Depression. Continue sertraline. * Constipation. MiraLax, lactulose and Dulcolax suppository as needed. * COPD. Not in acute exacerbation. Continue home inhalers. Tobacco cessation education. * Recent left proximal tibial metaphyseal fracture (August 2024). s/p rehab. DVT prophylaxis: Heparin Code status: Full Patient will need hospitalization for at least 2 midnights for severe back pain treatment with pain meds; she will also need further evaluation with lumbar spine MRI to assess for spinal cord abnormalities and evaluation by Urology for urinary retention. Quality Stroke Does the patient have a stroke diagnosis?: No VTE Prior VTE?: No VTE Risk Level:: Medical - moderate - high VTE Device Contraindication: Treatment Not Indicated VTE Drug Contraindication: N/A - Med Ordered
--- NOTE | 2024-09-30 20:25 | PHA.MEDREC ---
Pharmacy Consult ? Medication Reconciliation Pharmacy has completed the medication reconciliation. Patient's daughter Georgie at bedside with list on phone, noted Trevon is being weaned off of her sertraline
[2024-09-30] MEDS: oxyCODONE HCl Immed Release 5 MG TABLET PO (20:27)
[2024-09-30 20:54] LABS: Sodium 127 mmol/L (135-145)
[2024-09-30 21:01] LABS: Lactic Acid 0.7 mmol/L (0.5-2.0)
[2024-09-30] MEDS: cefTRIAXone sodium 1 GM VIAL IVPUSH (21:50)
[2024-10-01] VITALS (8 sets, daily range): BP systolic 102–131; BP diastolic 54–74; PULSE 76–90; RESP 14–20; TEMP 36.1–36.9; O2SAT 92–96; BMI 18.8
[2024-10-01] MEDS: Acetaminophen 325 MG TABLET 975 MG PO ×3 (00:03→18:15)
[2024-10-01] MEDS: 0.9 % Sodium Chloride Flush 3 ML SYRINGE IVFLUSH ×3 (00:04→18:18)
[2024-10-01 01:30] LABS: Sodium 127 mmol/L (135-145)
[2024-10-01] MEDS: oxyCODONE HCl Immed Release 5 MG TABLET PO ×3 (03:42→18:17)
[2024-10-01 05:45] LABS: MANUAL DIFF FLAG NO
[2024-10-01 05:54] LABS: Basophils Percent Auto 0.6 % (0-2); Eosinophils Percent Auto 0.2 % (0-4); Hematocrit 28.2 % (37.0-47.0); Hemoglobin 9.7 g/dl (12.0-16.0); Imm Gran Abs Auto 0.03 X10*3/uL (0.00-0.03); Imm Gran Pct Auto 0.6 % (0.0-0.4); Lymphocytes Absolute Auto 0.7 X10*3/uL (1.2-4.9); Lymphocytes Percent Auto 13.9 % (20-40); Mean Corpuscular HGB Conc 34.4 g/dl (31.0-35.0); Mean Corpuscular Hemoglobin 28.1 pg (27.0-33.0); Mean Corpuscular Volume 81.7 fL (80.0-98.0); Mean Platelet Volume 8.6 fL (9.4-12.3); Monocytes Absolute Auto 0.8 X10*3/uL (0.1-1.2); Monocytes Percent Auto 17.9 % (2-11); Neutrophils Absolute Auto 3.1 x10*3/uL (2.0-8.3); Neutrophils Percent Auto 66.8 % (45-73); Platelet Count 307 X10*3/uL (160-400); Red Blood Count 3.45 X10*6/uL (4.20-5.50); Red Cell Distribution Width 15.4 % (11.0-16.0); White Blood Count 4.7 X10*3/uL (4.8-10.8)
[2024-10-01 06:04] LABS: Anion Gap 13 (12-20); Blood Urea Nitrogen 12 mg/dL (9-16); Calcium 8.6 mg/dL (8.4-10.2); Carbon Dioxide 21 mmol/L (22-29); Chloride 97 mmol/L (96-108); Creatinine Clr Calc Pharmacy 71.4; Estimated Glomerular Filt Rate > 60; Glucose Random 77 mg/dL (60-115); Magnesium 1.9 mg/dL (1.6-2.6); Potassium 3.6 mmol/L (3.3-5.1); Sodium 127 mmol/L (135-145)
--- NOTE | 2024-10-01 07:22 | PC.NURSE ---
Report taken from previous rn, pt is resting comfortably and pffers no complaint. Pt is waiting for transfer to floor.
[2024-10-01] MEDS: Aspirin 81 MG TAB.CHEW PO (08:05)
--- NOTE | 2024-10-01 08:40 | PC.NURSE ---
patients breo inhaler has been labeled and is in resp cart.
[2024-10-01] MEDS: polyethylene glycoL 3350 17 GM POWD.PACK PO (09:14)
[2024-10-01] MEDS: Lidocaine 4 % Patch ADH..PATCH 2 PATCH TRANSDERMA (09:14)
[2024-10-01] MEDS: Lactulose 20 GM/30 ML SOLUTION PO (09:15)
[2024-10-01] MEDS: lisinopriL 5 MG TABLET PO (09:15)
[2024-10-01] MEDS: Heparin Sodium,Porcine 5,000 UNIT/ML VIAL 5000 UNIT SUBCUT ×2 (09:15→21:30)
[2024-10-01] MEDS: Multivitamin TABLET 1 TAB PO (09:15)
[2024-10-01] MEDS: Sertraline HCL 25 MG TABLET PO (09:16)
--- NOTE | 2024-10-01 10:56 | PC.NURSE ---
pt has blanchab;e redness over her coccyx, she was repositioned onto her l side. her skin is dry.
--- NOTE | 2024-10-01 12:42 | MHC.CM.PN ---
CM met with Patient at bedside, in the ED, and addressed IMM with her, providing Patient with the original and a copy will be placed on the chart. Patient lives alone in a house and she uses a walker to assist with mobility. Patient is active with [facility] and home/resume said services is her goal. CM has initiated and will follow for dc planning. PCP is Dr. Alan Chanel and Sister/HCP/Melyssa will transport to home at time of dc.
[2024-10-01] MEDS: oxyCODONE HCl Immed Release 5 MG TABLET 10 MG PO (14:03)
--- NOTE | 2024-10-01 16:19 | P.PNIM_ITS ---
Subjective Subjective Date of Service: 10/01/24 Interval History: back pain Review of Systems moves all ext has still back pain Review of Systems: Yes all other systems are reviewed and are negative Physical Exam 2 Vital Signs: Vital Signs: Last Vital Signs Temp 97.7 F 10/01/24 15:56 Pulse 76 10/01/24 15:56 Resp 20 10/01/24 15:56 BP 127/70 10/01/24 15:56 Pulse Ox 96 10/01/24 15:56 O2 Del Method Room Air 10/01/24 15:56 BMI result Body Mass Index 18.6 Constitutional - Awake and Alert, No apparent distress. Heart - mildly tachycardic, no murmurs. Lungs - Normal lung expansion, Normal respiratory effort, No respiratory distress, CTA bilaterally Abdomen - NT / ND; increased BS; No rebound or guarding Back - non tenderness to palpation, no sensation deficit. Extremities - no calf tenderness bilaterally, no swelling Skin - Warm/Dry Neurological - Alert & oriented x3, strength 4/5 to the lower extremities. No sensory deficit to the lower extremities. Normal speech. No facial droop. Objective Data Active Medications Acetaminophen (Acetaminophen 325 Mg Tablet) 975 mg PO Q6H [facility] Last Admin: 10/01/24 06:16 Dose: 975 mg Documented By: KIRTI Albuterol Sulfate (Albuterol Sulfate 90 Mcg 8 Gm Inhaler) 1 puff INHALE Q4H PRN PRN Reason: Wheezing Aspirin (Aspirin 81 Mg Tab.Chew) 81 mg PO DAILY [facility] Last Admin: 10/01/24 08:05 Dose: 81 mg Documented By: JIGAR Bisacodyl (Bisacodyl 10 Mg Supp.Rect) 10 mg HI BEDTIME PRN PRN Reason: Constipation Ceftriaxone Sodium (Ceftriaxone Sodium 1 Gm Vial) 1 gm IVPUSH Q24H [facility] Last Admin: 09/30/24 21:50 Dose: 1 gm Documented By: KIRTI Heparin Sodium (Porcine) (Heparin Sodium,Porcine 5,000 Unit/Ml Vial) 5,000 unit SUBCUT Q12H [facility] Last Admin: 10/01/24 09:15 Dose: 5,000 unit Documented By: JIGAR Lactulose (Lactulose 20 Gm/30 Ml Solution) 20 gm PO DAILY [facility] Last Admin: 10/01/24 09:15 Dose: 20 gm Documented By: JIGAR Lidocaine (Lidocaine 4 % Patch Adh..Patch) 2 patch TRANSDERMA DAILY [facility] Last Admin: 10/01/24 09:14 Dose: 2 patch Documented By: JIGAR Lisinopril (Lisinopril 5 Mg Tablet) 5 mg PO DAILY [facility]; Protocol Last Admin: 10/01/24 09:15 Dose: 5 mg Documented By: JIGAR Melatonin (Melatonin 3 Mg Tablet) 6 mg PO BEDTIME PRN PRN Reason: Insomnia Multivitamins/Vitamin C (Multivitamin Tablet) 1 tab PO DAILY [facility] Last Admin: 10/01/24 09:15 Dose: 1 tab Documented By: JIGAR Non-Formulary Medication (Fluticasone Furoate-Vilanterol [Breo Ellipta]) 1 inhalation INHALE BID [facility] Oxycodone HCl (Oxycodone Hcl Immed Release 5 Mg Tablet) 5 mg PO Q6H PRN PRN Reason: back pain Last Admin: 10/01/24 09:20 Dose: 5 mg Documented By: JIGAR Polyethylene Glycol (Polyethylene Glycol 3350 17 Gm Powd.Pack) 17 gm PO DAILY [facility] Last Admin: 10/01/24 09:14 Dose: 17 gm Documented By: JIGAR Sertraline HCl (Sertraline Hcl 25 Mg Tablet) 25 mg PO DAILY [facility] Last Admin: 10/01/24 09:16 Dose: 25 mg Documented By: JIGAR Sodium Chloride (0.9 % Sodium Chloride Flush 3 Ml Syringe) 3 ml IVFLUSH QSHIFT [facility] Last Admin: 10/01/24 08:19 Dose: 3 ml Documented By: JIGAR Labs 10/01/24 05:15 10/01/24 05:15 Labs: Laboratory Results - last 24 hr 09/30/24 10/01/24 20:39 05:15 MCV 81.7 MCH 28.1 MCHC 34.4 RDW 15.4 Plt Count 307 MPV 8.6 L Immature Gran % (Auto) 0.6 H Neut % (Auto) 66.8 Lymph % (Auto) 13.9 L Randolph % (Auto) 17.9 H Eos % (Auto) 0.2 Baso % (Auto) 0.6 Lymph # (Auto) 0.7 L Randolph # (Auto) 0.8 Eos # (Auto) 0.0 Baso # (Auto) 0.0 Abs Immat Gran (auto) 0.03 Absolute Neuts (auto) 3.1 Absolute Nucleated RBC 0.000 Nucleated RBC % (auto) 0.0 Anion Gap 13 Estim Creat Clear Calc 71.4 Estimated GFR > 60 Random Glucose 77 Lactic Acid 0.7 Calcium 8.6 D Magnesium 1.9 Microbiology Microbiology Results: Microbiology 09/30/24 Unknown Urine Culture - Final Urine clean catch - Clean Catch Midstream Assessment and Plan (1) Intractable back pain: Status: Acute Assessment and Plan: 74 y/o woman admitted with: Back pain likely 2/2 to compression fracture L1 and L3, intractable. continue pain control. Continue acetaminophen and Oxycodone 5 mg p.o. every 6 hours as needed. Check lumbar MRI :1. There is levoconvex scoliosis. 2. There are subacute appearing compression deformities of L1 (severe, with 5 mm retropulsion of bone), the superior endplate of L3 by approximately 30%, and minimally the inferior endplate of L5 by approximately 10%. 3. There is moderate central canal stenosis at the L1 level due to retropulsed bone from the vertebral plana deformity. There is no definite impingement of the conus or signal abnormality. 4. A 6 mm degenerative anterolisthesis at L4-5 results in severe central canal stenosis and severe bilateral subarticular recess stenosis. 5. Moderate central canal stenosis and moderate bilateral subarticular recess stenosis at L5-S1, with moderate to severe left neural foraminal stenosis. See above for details. 6. See the body of the report for additional ancillary findings, including probable severe right hydronephrosis. neurology eval , Physical therapy. Fall precautions (patient and daughter educated). Tachycardia, sinus.-resolved ,lactic acid normal blood cultures pending . Urinary retention (post void bladder >300 ml). Status post indwelling urinary catheter placement by ED. Urology consult -Dr. Kaplan. Presumed UTI. Start empiric IV antibiotic therapy with ceftriaxone. Urine culture obtained -will follow results. History of chronic hyponatremia due to SIADH, sodium level lower than slightly lower than baseline today. moniter sodium level /bmp then every 4 hours. Essential hypertension. Continue lisinopril. Depression. Continue sertraline. Constipation. MiraLax, lactulose and Dulcolax suppository as needed. COPD. Not in acute exacerbation. Continue home inhalers. Tobacco cessation education. Recent left proximal tibial metaphyseal fracture (August 2024). s/p rehab. DVT prophylaxis: Heparin ongoing need hospitalization for severe back pain treatment with pain meds; she will also need further evaluation with lumbar spine MRI to assess for spinal cord abnormalities and evaluation by Urology for urinary retention. Quality Stroke Does the patient have a stroke diagnosis?: No VTE Prior VTE?: No VTE Risk Level:: Medical - moderate - high VTE Device Contraindication: Treatment Not Indicated VTE Drug Contraindication: N/A - Med Ordered
[2024-10-01 17:06] LABS: Sodium 126 mmol/L (135-145)
[2024-10-01] MEDS: cefTRIAXone sodium 1 GM VIAL IVPUSH (21:27)
[2024-10-01 22:04] LABS: Osmolality Urine 436 mosm/kg (373-1093)
[2024-10-02] VITALS (7 sets, daily range): BP systolic 111–147; BP diastolic 57–74; PULSE 73–98; RESP 14–18; TEMP 36.3–36.9; O2SAT 92–95; BMI 18.8
[2024-10-02] MEDS: oxyCODONE HCl Immed Release 5 MG TABLET PO ×4 (00:13→18:18)
[2024-10-02] MEDS: Acetaminophen 325 MG TABLET 975 MG PO ×4 (00:13→18:19)
[2024-10-02] MEDS: 0.9 % Sodium Chloride Flush 3 ML SYRINGE IVFLUSH ×3 (00:13→16:38)
[2024-10-02 08:12] LABS: Anion Gap 12 (12-20); Blood Urea Nitrogen 12 mg/dL (9-16); Carbon Dioxide 27 mmol/L (22-29); Chloride 94 mmol/L (96-108); Creatinine Clr Calc Pharmacy 65.5; Estimated Glomerular Filt Rate > 60; Glucose Random 83 mg/dL (60-115); Sodium 129 mmol/L (135-145)
[2024-10-02 08:13] LABS: Uric Acid 4.5 mg/dL (2.4-5.7)
[2024-10-02] MEDS: Lidocaine 4 % Patch ADH..PATCH 2 PATCH TRANSDERMA (09:29)
[2024-10-02] MEDS: Sertraline HCL 25 MG TABLET PO (09:29)
[2024-10-02] MEDS: Aspirin 81 MG TAB.CHEW PO (09:29)
[2024-10-02] MEDS: Multivitamin TABLET 1 TAB PO (09:29)
[2024-10-02] MEDS: Heparin Sodium,Porcine 5,000 UNIT/ML VIAL 5000 UNIT SUBCUT ×2 (09:30→21:27)
[2024-10-02] MEDS: polyethylene glycoL 3350 17 GM POWD.PACK PO (09:30)
[2024-10-02] MEDS: lisinopriL 5 MG TABLET PO (09:30)
[2024-10-02] MEDS: Lactulose 20 GM/30 ML SOLUTION PO (09:30)
--- NOTE | 2024-10-02 11:00 | P.CONNP_ITS ---
History of Present Illness Reason for Consult Consult date: 10/02/24 Chief Complaint Chief complaint: hyponatremia, urinary retention History of Present Illness Narrative: 74 y/o female with a medical history of HTN, osteoporosis, chronic hyponatremia 2/2 SIADH, recent tibial fracture requiring rehab. 09/30 presented with severe back pain, found to have compression fractures of L1 and L3, sodium 125 (baseline 129-131) urine osm 436, urine sodium 25 renal function normal patient takes sertraline for management of depression reports back pain is still fairly significant, but some improvement Review of Systems Constitutional: Reports no additional constitutional complaints Cardiovascular: Denies chest pain, Denies leg edema, Denies lightheadedness and Denies dyspnea Respiratory: Denies cough and Denies dyspnea Gastrointestinal: Reports abdominal pain, Denies diarrhea, Denies nausea and Denies vomiting Genitourinary: Denies hematuria, Reports difficulty voiding, Denies dysuria and Denies flank pain Musculoskeletal: Reports back pain Skin/Breast: Denies rash PMFSH Past Medical History Medical History SIADH (syndrome of inappropriate ADH production) De Quervain's tenosynovitis, left Arthritis of hand, left, degenerative Hearing impairment Smoker Depression Anxiety Osteoporosis Urinary urgency Urinary incontinence Varicose veins of bilateral lower extremities with pain Peripheral polyneuropathy Pure hypercholesterolemia Anemia Compression fracture of L4 vertebra with routine healing Lumbar degenerative disc disease Benign essential hypertension COPD (chronic obstructive pulmonary disease) Family History Family History Father No problems noted. Mother Lung cancer Sister Down syndrome Maternal Grandfather Lung cancer Maternal Grandmother Lung cancer Surgical History Surgical History History of cystoscopy History of bilateral cataract extraction Social History Social History Household Members: None Housing: House Do you presently have visiting nurse or other home services: Yes Alcohol intake: never Patient Tobacco Use Status: Former Tobacco user Tobacco use type: Cigarette Cigarette Packs Per Day: 2 Cigarettes Per Day: 40 e-Cigarette/Vaping Use: Never Used Second Hand Smoke Exposure: Yes Advance Directives Date on File: 04/10/24 service: No Current occupational status: retired Cognitive needs: No Hearing needs: Yes Vision needs: Yes (Glasses) Meds Allergies Allergy/AdvReac Type Severity Reaction Status Date / Time No Known Allergies Allergy Verified 09/30/24 11:52 [No Known Allergies*] Active Medications: Current Medications Acetaminophen (Acetaminophen 325 Mg Tablet) 975 mg PO Q6H [facility] Last Admin: 10/02/24 11:45 Dose: 975 mg Albuterol Sulfate (Albuterol Sulfate 90 Mcg 8 Gm Inhaler) 1 puff INHALE Q4H PRN PRN Reason: Wheezing Aspirin (Aspirin 81 Mg Tab.Chew) 81 mg PO DAILY [facility] Last Admin: 10/02/24 09:29 Dose: 81 mg Bisacodyl (Bisacodyl 10 Mg Supp.Rect) 10 mg DC BEDTIME PRN PRN Reason: Constipation Ceftriaxone Sodium (Ceftriaxone Sodium 1 Gm Vial) 1 gm IVPUSH Q24H [facility] Last Admin: 10/01/24 21:27 Dose: 1 gm Cyclobenzaprine HCl (Cyclobenzaprine Hcl 5 Mg Tablet) 2.5 mg PO TID [facility] Heparin Sodium (Porcine) (Heparin Sodium,Porcine 5,000 Unit/Ml Vial) 5,000 unit SUBCUT Q12H [facility] Last Admin: 10/02/24 09:30 Dose: 5,000 unit Lactulose (Lactulose 20 Gm/30 Ml Solution) 20 gm PO DAILY [facility] Last Admin: 10/02/24 09:30 Dose: 20 gm Lidocaine (Lidocaine 4 % Patch Adh..Patch) 2 patch TRANSDERMA DAILY [facility] Last Admin: 10/02/24 09:29 Dose: 2 patch Lisinopril (Lisinopril 5 Mg Tablet) 5 mg PO DAILY [facility]; Protocol Last Admin: 10/02/24 09:30 Dose: 5 mg Melatonin (Melatonin 3 Mg Tablet) 6 mg PO BEDTIME PRN PRN Reason: Insomnia Multivitamins/Vitamin C (Multivitamin Tablet) 1 tab PO DAILY [facility] Last Admin: 10/02/24 09:29 Dose: 1 tab Non-Formulary Medication (Fluticasone Furoate-Vilanterol [Breo Ellipta]) 1 inhalation INHALE BID [facility] Oxycodone HCl (Oxycodone Hcl Immed Release 5 Mg Tablet) 5 mg PO Q6H PRN PRN Reason: back pain Last Admin: 10/02/24 12:20 Dose: 5 mg Polyethylene Glycol (Polyethylene Glycol 3350 17 Gm Powd.Pack) 17 gm PO DAILY [facility] Last Admin: 10/02/24 09:30 Dose: 17 gm Sertraline HCl (Sertraline Hcl 25 Mg Tablet) 25 mg PO DAILY [facility] Last Admin: 10/02/24 09:29 Dose: 25 mg Sodium Chloride (0.9 % Sodium Chloride Flush 3 Ml Syringe) 3 ml IVFLUSH QSHIFT [facility] Last Admin: 10/02/24 09:37 Dose: 3 ml Tamsulosin HCl (Tamsulosin Hcl 0.4 Mg Capsule) 0.4 mg PO BEDTIME [facility] Home Medications ?Medication ?Instructions ?Recorded ?Confirmed ?Last Taken ?Type aspirin 81 mg chewable tablet 81 mg PO DAILY 02/22/20 09/30/24 09/29/24 History (Doyle Chewable Low Dose Aspirin) calcium carbonate (Calcium 600) 600 mg PO DAILY 01/10/22 09/30/24 09/29/24 History multivitamin 1 tab PO DAILY 04/24/24 09/30/24 09/29/24 History albuterol sulfate 90 mcg/actuation 1 inh inhalation Q4H PRN Wheezing 09/30/24 09/30/24 Unknown History aerosol inhaler fluticasone furoate 50 1 inh inhalation BID 09/30/24 09/30/24 09/29/24 History mcg-vilanterol 25 mcg/dose inhalation powder (Breo Ellipta) melatonin 3 mg tablet 6 mg PO BEDTIME 09/30/24 09/30/24 09/29/24 History naproxen 500 mg tablet 500 mg PO BID PRN pain 09/30/24 09/30/24 Unknown History sertraline 50 mg tablet 25 mg PO DAILY 09/30/24 09/30/24 09/29/24 History Physical Exam Vital Signs: Last Vital Signs Temp 98.3 F 10/02/24 11:31 Pulse 85 10/02/24 11:31 Resp 18 10/02/24 11:31 BP 136/64 10/02/24 11:31 Pulse Ox 95 10/02/24 11:31 O2 Del Method Room Air 10/02/24 11:31 BMI result Body Mass Index 18.8 Const General: no acute distress, alert and awake Resp Effort & Inspection: normal respiratory effort and able to speak in complete sentences Auscultation: clear to auscultation bilaterally Cardio Rate: regular rate Rhythm: regular rhythm Heart sounds: S1 normal heart sound present and S2 normal heart sound present GI Palpation (GI): Soft to palpation and nontender General: Yes no CVA tenderness Back/Spine/Pelvis Back: no CVA tenderness Skin Rashes: no rashes Extrem General: No edema Results Lab Results 10/01/24 05:15 10/02/24 07:04 Lab results: Chemistry 09/30/24 09/30/24 10/01/24 13:36 20:39 01:18 Sodium 125 L 127 L 127 L Potassium 4.1 Carbon Dioxide 23 BUN 14 Creatinine 0.58 Calcium 9.4 10/01/24 10/01/24 10/02/24 05:15 16:34 07:04 Sodium 127 L 126 L 129 L Potassium 3.6 4.0 Carbon Dioxide 21 L 27 BUN 12 12 Creatinine 0.56 0.62 Calcium 8.6 D 9.0 Hematology 09/30/24 10/01/24 13:36 05:15 WBC 4.9 4.7 L Hgb 10.6 L 9.7 L Plt Count 350 307 Urinalysis 09/30/24 13:36 Urine Color Yellow Urine Appearance Clear Urine pH 6.5 Ur Specific [place] 1.015 Urine Protein 100 (2+) H Urine Glucose (UA) Negative Urine Ketones 40 Urine Blood Negative Urine Nitrite Negative Ur Leukocyte Esterase Small (1+) H Urine RBC 0-2 Urine WBC 6-10 H Ur Squamous Epith Cells 6-10 Hyaline Casts 0-2 Urine Studies 10/01/24 21:31 Urine Osmolality 436 Assessment and Plan (1) Hyponatremia: Status: Resolved Plan Patient with hyponatremia- given low urine sodium likely hypovolemic hyponatremia with appropriate ADH response; pain from fractures may have also contributed to some degree- sodium has improved and is back to patient's chronic baseline patient is asymptomatic and back to her baseline sodium level may consider adjusting and/or discontinuing antidepressent medication if sodium worsens chronically or if she becomes symptomatic Discussed with Dr Liz. Procedures Date of Service Date of Service: 10/02/24
--- NOTE | 2024-10-02 11:31 | PM.NEUROCN ---
History of Present Illness Data of Consult Service Date: 10/02/24 Primary Care Provider: Alan Chanel MD HPI Reason for consult: Back pain 74 years old woman who had back pain in the past but the other day it suddenly got severe, 10/10, radiating across in lower back and also in right leg. She could not handle and came to emergency room. When I saw her she was comfortable 80 laying in the bed semi prone with no sign of distress but stated that her pain level was 10. She also had a Mejia's catheter, which was new. Review of Systems Review of Systems: No recent trauma of or cold or flu-like illness PMFSH Past Medical History Medical History SIADH (syndrome of inappropriate ADH production) De Quervain's tenosynovitis, left Arthritis of hand, left, degenerative Hearing impairment Smoker Depression Anxiety Osteoporosis Urinary urgency Urinary incontinence Varicose veins of bilateral lower extremities with pain Peripheral polyneuropathy Pure hypercholesterolemia Anemia Compression fracture of L4 vertebra with routine healing Lumbar degenerative disc disease Benign essential hypertension COPD (chronic obstructive pulmonary disease) Family History Family History Father No problems noted. Mother Lung cancer Sister Down syndrome Maternal Grandfather Lung cancer Maternal Grandmother Lung cancer Surgical History Surgical History History of cystoscopy History of bilateral cataract extraction Social History Social History Household Members: None Housing: House Do you presently have visiting nurse or other home services: Yes Alcohol intake: never Patient Tobacco Use Status: Former Tobacco user Tobacco use type: Cigarette Cigarette Packs Per Day: 2 Cigarettes Per Day: 40 e-Cigarette/Vaping Use: Never Used Second Hand Smoke Exposure: Yes Advance Directives Date on File: 04/10/24 service: No Current occupational status: retired Cognitive needs: No Hearing needs: Yes Vision needs: Yes (Glasses) Meds Allergies Allergy/AdvReac Type Severity Reaction Status Date / Time No Known Allergies Allergy Verified 09/30/24 11:52 [No Known Allergies*] Active Medications: Current Medications Acetaminophen (Acetaminophen 325 Mg Tablet) 975 mg PO Q6H [facility] Last Admin: 10/02/24 06:17 Dose: 975 mg Albuterol Sulfate (Albuterol Sulfate 90 Mcg 8 Gm Inhaler) 1 puff INHALE Q4H PRN PRN Reason: Wheezing Aspirin (Aspirin 81 Mg Tab.Chew) 81 mg PO DAILY [facility] Last Admin: 10/02/24 09:29 Dose: 81 mg Bisacodyl (Bisacodyl 10 Mg Supp.Rect) 10 mg UT BEDTIME PRN PRN Reason: Constipation Ceftriaxone Sodium (Ceftriaxone Sodium 1 Gm Vial) 1 gm IVPUSH Q24H [facility] Last Admin: 10/01/24 21:27 Dose: 1 gm Cyclobenzaprine HCl (Cyclobenzaprine Hcl 5 Mg Tablet) 2.5 mg PO TID [facility] Heparin Sodium (Porcine) (Heparin Sodium,Porcine 5,000 Unit/Ml Vial) 5,000 unit SUBCUT Q12H [facility] Last Admin: 10/02/24 09:30 Dose: 5,000 unit Lactulose (Lactulose 20 Gm/30 Ml Solution) 20 gm PO DAILY [facility] Last Admin: 10/02/24 09:30 Dose: 20 gm Lidocaine (Lidocaine 4 % Patch Adh..Patch) 2 patch TRANSDERMA DAILY [facility] Last Admin: 10/02/24 09:29 Dose: 2 patch Lisinopril (Lisinopril 5 Mg Tablet) 5 mg PO DAILY [facility]; Protocol Last Admin: 10/02/24 09:30 Dose: 5 mg Melatonin (Melatonin 3 Mg Tablet) 6 mg PO BEDTIME PRN PRN Reason: Insomnia Multivitamins/Vitamin C (Multivitamin Tablet) 1 tab PO DAILY [facility] Last Admin: 10/02/24 09:29 Dose: 1 tab Non-Formulary Medication (Fluticasone Furoate-Vilanterol [Breo Ellipta]) 1 inhalation INHALE BID [facility] Oxycodone HCl (Oxycodone Hcl Immed Release 5 Mg Tablet) 5 mg PO Q6H PRN PRN Reason: back pain Last Admin: 10/02/24 06:19 Dose: 5 mg Polyethylene Glycol (Polyethylene Glycol 3350 17 Gm Powd.Pack) 17 gm PO DAILY [facility] Last Admin: 10/02/24 09:30 Dose: 17 gm Sertraline HCl (Sertraline Hcl 25 Mg Tablet) 25 mg PO DAILY [facility] Last Admin: 10/02/24 09:29 Dose: 25 mg Sodium Chloride (0.9 % Sodium Chloride Flush 3 Ml Syringe) 3 ml IVFLUSH QSHIFT [facility] Last Admin: 10/02/24 09:37 Dose: 3 ml Tamsulosin HCl (Tamsulosin Hcl 0.4 Mg Capsule) 0.4 mg PO BEDTIME [facility] Home Medications ?Medication ?Instructions ?Recorded ?Confirmed ?Last Taken ?Type aspirin 81 mg chewable tablet 81 mg PO DAILY 02/22/20 09/30/24 09/29/24 History (Doyle Chewable Low Dose Aspirin) calcium carbonate (Calcium 600) 600 mg PO DAILY 01/10/22 09/30/24 09/29/24 History multivitamin 1 tab PO DAILY 04/24/24 09/30/24 09/29/24 History albuterol sulfate 90 mcg/actuation 1 inh inhalation Q4H PRN Wheezing 09/30/24 09/30/24 Unknown History aerosol inhaler fluticasone furoate 50 1 inh inhalation BID 09/30/24 09/30/24 09/29/24 History mcg-vilanterol 25 mcg/dose inhalation powder (Breo Ellipta) melatonin 3 mg tablet 6 mg PO BEDTIME 09/30/24 09/30/24 09/29/24 History naproxen 500 mg tablet 500 mg PO BID PRN pain 09/30/24 09/30/24 Unknown History sertraline 50 mg tablet 25 mg PO DAILY 09/30/24 09/30/24 09/29/24 History Physical Exam Vital Signs: Vital Signs: Last Vital Signs Temp 98.1 F 10/02/24 07:11 Pulse 73 10/02/24 10:46 Resp 18 10/02/24 07:11 BP 126/65 10/02/24 10:46 Pulse Ox 94 10/02/24 10:46 O2 Del Method Room Air 10/02/24 07:11 BMI result Body Mass Index 18.8 Neuro: Other: She is alert and awake with normal spontaneity of speech fluency comprehension and affect. She is not in any distress. On formal examination she was able to move muscles across her knees ankle and toes with symmetrical movement of extensor hallucis longus, eversion, inversion, plantars flexion, dorsiflexion, and knee flexion, with trace to absent reflexes and flexor plantars. Results Labs 10/01/24 05:15 10/02/24 07:04 Labs: BMP 10/01/24 10/02/24 16:34 07:04 Sodium 126 L 129 L Potassium 4.0 Chloride 94 L Carbon Dioxide 27 BUN 12 Creatinine 0.62 Calcium 9.0 MRI of back revealed diffuse degenerative disease, most prominent at L5-S1 but a disc osteophyte complex at L4-5 likely creating the problem with [id number] spinal stenosis. Microbiology Microbiology Results: Microbiology 09/30/24 20:49 Blood - Venous Blood Culture - Preliminary No growth after 24 hours. 09/30/24 20:39 Blood - Venous Blood Culture - Preliminary No growth after 24 hours. 09/30/24 Unknown Urine clean catch - Clean Catch Midstream Urine Culture - Final Assessment and Plan (1) Intractable back pain: Status: Acute Intractable low back pain with radiation to right leg likely due to L4-5 disc osteophyte pathology. This lesion is mechanical or surgical and needed surgical decompression. An epidural injection can be tried for temporary relief until she would have formal neuro surgical consultation. Procedures Date of Service Date of Service: 10/02/24
--- NOTE | 2024-10-02 11:48 | MHC.CM.PN ---
Addendum entered by Liz Butler RN 10/02/24 11:50: [facility] UPDATED VIA [email or web address] Original Note: EMR REVIEWED, PER HOSPITALIST MRI SHOWS SIGNIFICANT CHANGE OF SPINE, NEURO PENDING, P.T. RECOMMENDING STR HOWEVER PT REFUSING, ANTIC PT WILL DC HOME W/RESUMP OF [facility] VNA, CM WILL CONT TO FOLLOW DC NEEDS.
--- NOTE | 2024-10-02 12:21 | P.CNUR_ITS ---
History of Present Illness Consult details Consult date: 10/02/24 Narrative: CC: Right hydro nephrosis and question of urinary retention 74-year-old female Had been at rehab after recent tibial fracture and SIADH Brought in for abdominal pain with nausea and vomiting Apparent confusion Abdominal imaging showed right hydro nephrosis with compression L1 and mild compression L3 Imaging reviewed - hydro nephrosis chronic Creatinine 0.6 Mejia catheter been placed for 200 cc residual Review of Systems 2 Constitutional: Constitutional: Reports as per HPI and Reports no additional constitutional complaints Cardiovascular: Cardiovascular: Reports as per HPI and Reports no additional cardiovascular complaints Respiratory: Respiratory: Reports as per HPI and Reports no additional respiratory complaints Gastrointestinal: Gastrointestinal: Reports as per HPI and Reports no additional gastrointestinal complaints Genitourinary: Genitourinary: Reports as per HPI Musculoskeletal: Musculoskeletal: Reports no additional musculoskeletal complaints and Reports as per HPI Neurologic: Reports system reviewed and no additional complaints, except as documented and Reports as per HPI [facility] Past Medical History Medical History SIADH (syndrome of inappropriate ADH production) De Quervain's tenosynovitis, left Arthritis of hand, left, degenerative Hearing impairment Smoker Depression Anxiety Osteoporosis Urinary urgency Urinary incontinence Varicose veins of bilateral lower extremities with pain Peripheral polyneuropathy Pure hypercholesterolemia Anemia Compression fracture of L4 vertebra with routine healing Lumbar degenerative disc disease Benign essential hypertension COPD (chronic obstructive pulmonary disease) Family History Family History Father No problems noted. Mother Lung cancer Sister Down syndrome Maternal Grandfather Lung cancer Maternal Grandmother Lung cancer Surgical History Surgical History History of cystoscopy History of bilateral cataract extraction Social History Social History Household Members: None Housing: House Do you presently have visiting nurse or other home services: Yes Alcohol intake: never Patient Tobacco Use Status: Former Tobacco user Tobacco use type: Cigarette Cigarette Packs Per Day: 2 Cigarettes Per Day: 40 e-Cigarette/Vaping Use: Never Used Second Hand Smoke Exposure: Yes Advance Directives Date on File: 04/10/24 service: No Current occupational status: retired Cognitive needs: No Hearing needs: Yes Vision needs: Yes (Glasses) Meds Allergies Allergy/AdvReac Type Severity Reaction Status Date / Time No Known Allergies Allergy Verified 09/30/24 11:52 [No Known Allergies*] Active Medications: Current Medications Acetaminophen (Acetaminophen 325 Mg Tablet) 975 mg PO Q6H [facility] Last Admin: 10/02/24 11:45 Dose: 975 mg Albuterol Sulfate (Albuterol Sulfate 90 Mcg 8 Gm Inhaler) 1 puff INHALE Q4H PRN PRN Reason: Wheezing Aspirin (Aspirin 81 Mg Tab.Chew) 81 mg PO DAILY [facility] Last Admin: 10/02/24 09:29 Dose: 81 mg Bisacodyl (Bisacodyl 10 Mg Supp.Rect) 10 mg [place] BEDTIME PRN PRN Reason: Constipation Ceftriaxone Sodium (Ceftriaxone Sodium 1 Gm Vial) 1 gm IVPUSH Q24H [facility] Last Admin: 10/01/24 21:27 Dose: 1 gm Cyclobenzaprine HCl (Cyclobenzaprine Hcl 5 Mg Tablet) 2.5 mg PO TID [facility] Heparin Sodium (Porcine) (Heparin Sodium,Porcine 5,000 Unit/Ml Vial) 5,000 unit SUBCUT Q12H [facility] Last Admin: 10/02/24 09:30 Dose: 5,000 unit Lactulose (Lactulose 20 Gm/30 Ml Solution) 20 gm PO DAILY [facility] Last Admin: 10/02/24 09:30 Dose: 20 gm Lidocaine (Lidocaine 4 % Patch Adh..Patch) 2 patch TRANSDERMA DAILY [facility] Last Admin: 10/02/24 09:29 Dose: 2 patch Lisinopril (Lisinopril 5 Mg Tablet) 5 mg PO DAILY [facility]; Protocol Last Admin: 10/02/24 09:30 Dose: 5 mg Melatonin (Melatonin 3 Mg Tablet) 6 mg PO BEDTIME PRN PRN Reason: Insomnia Multivitamins/Vitamin C (Multivitamin Tablet) 1 tab PO DAILY [facility] Last Admin: 10/02/24 09:29 Dose: 1 tab Non-Formulary Medication (Fluticasone Furoate-Vilanterol [Breo Ellipta]) 1 inhalation INHALE BID [facility] Oxycodone HCl (Oxycodone Hcl Immed Release 5 Mg Tablet) 5 mg PO Q6H PRN PRN Reason: back pain Last Admin: 10/02/24 12:20 Dose: 5 mg Polyethylene Glycol (Polyethylene Glycol 3350 17 Gm Powd.Pack) 17 gm PO DAILY [facility] Last Admin: 10/02/24 09:30 Dose: 17 gm Sertraline HCl (Sertraline Hcl 25 Mg Tablet) 25 mg PO DAILY [facility] Last Admin: 10/02/24 09:29 Dose: 25 mg Sodium Chloride (0.9 % Sodium Chloride Flush 3 Ml Syringe) 3 ml IVFLUSH QSHIFT [facility] Last Admin: 10/02/24 09:37 Dose: 3 ml Tamsulosin HCl (Tamsulosin Hcl 0.4 Mg Capsule) 0.4 mg PO BEDTIME [facility] Home Medications ?Medication ?Instructions ?Recorded ?Confirmed ?Last Taken ?Type aspirin 81 mg chewable tablet 81 mg PO DAILY 02/22/20 09/30/24 09/29/24 History (Doyle Chewable Low Dose Aspirin) calcium carbonate (Calcium 600) 600 mg PO DAILY 01/10/22 09/30/24 09/29/24 History multivitamin 1 tab PO DAILY 04/24/24 09/30/24 09/29/24 History albuterol sulfate 90 mcg/actuation 1 inh inhalation Q4H PRN Wheezing 09/30/24 09/30/24 Unknown History aerosol inhaler fluticasone furoate 50 1 inh inhalation BID 09/30/24 09/30/24 09/29/24 History mcg-vilanterol 25 mcg/dose inhalation powder (Breo Ellipta) melatonin 3 mg tablet 6 mg PO BEDTIME 09/30/24 09/30/24 09/29/24 History naproxen 500 mg tablet 500 mg PO BID PRN pain 09/30/24 09/30/24 Unknown History sertraline 50 mg tablet 25 mg PO DAILY 09/30/24 09/30/24 09/29/24 History Physical Exam 2 Vital Signs: Vital Signs: Last Vital Signs Temp 98.3 F 10/02/24 11:31 Pulse 85 10/02/24 11:31 Resp 18 10/02/24 11:31 BP 136/64 10/02/24 11:31 Pulse Ox 95 10/02/24 11:31 O2 Del Method Room Air 10/02/24 11:31 BMI result Body Mass Index 18.8 Const: General: cooperative, healthy appearing, comfortable and no acute distress Orientation/consciousness: patient oriented x3 HEENT: Face and sinus: Yes normal facial exam Mouth: moist mucous membranes Neck: Neck: Yes normal visual inspection, Yes full ROM and Yes trachea midline Chest: Chest palpation & inspection: normal inspection of the chest Resp: Effort & Inspection: normal respiratory effort, able to speak in complete sentences and no respiratory distress GI: Inspection: Yes normal to inspection Back/Spine/Pelvis: Cervical Spine: normal cervical lordosis Thoracic/Lumbar Spine: thoracic and lumbar spine normal to inspection Skin: General skin exam: no rashes or lesions noted Neuro: General: patient oriented x3, tone normal and moves all extremities Extrem: General: Yes normal to inspection and Yes capillary refill normal Results Labs 10/01/24 05:15 10/02/24 07:04 Labs: Abnormal lab results 10/01/24 10/02/24 Range/Units 16:34 07:04 Sodium 126 L 129 L (135-145) mmol/L Chloride 94 L (96-108) mmol/L BMP 10/01/24 10/02/24 16:34 07:04 Sodium 126 L 129 L Potassium 4.0 Chloride 94 L Carbon Dioxide 27 BUN 12 Creatinine 0.62 Calcium 9.0 Urine 09/30/24 Range/Units 13:36 Urine Color Yellow Urine Appearance Clear Urine pH 6.5 (5.0-9.0) Ur Specific [place] 1.015 (1.005-1.025) Urine Protein 100 (2+) H (Neg-Trace) mg/dL Urine Glucose (UA) Negative (Negative) mg/dL All other labs normal. Assessment and Plan (1) Urinary incontinence: Qualifiers: Urinary Incontinence type: unspecified incontinence Qualified Code(s): R32 - Unspecified urinary incontinence Status: Acute (2) Hydronephrosis of right kidney: Status: Acute Plan Voiding trial 48-72 hours after Mejia catheter placement - would remove Mejia catheter Saturday morning Hydronephrosis is chronic with no acute neurologic intervention Procedures Date of Service Date of Service: 10/02/24
[2024-10-02] MEDS: Cyclobenzaprine HCl 5 MG TABLET 2.5 MG PO (16:34)
--- NOTE | 2024-10-02 17:22 | HO.PM.IMPN ---
Subjective Subjective Date of Service: 10/02/24 Interval History: back pain Review of Systems moves all ext,has still back pain denies any new c/o Physical Exam Vital Signs: Vital Signs: Last Vital Signs Temp 98.4 F 10/02/24 16:48 Pulse 91 10/02/24 16:48 Resp 14 10/02/24 16:48 BP 147/74 H 10/02/24 16:48 Pulse Ox 94 10/02/24 16:48 O2 Del Method Room Air 10/02/24 16:48 BMI result Body Mass Index 18.8 Constitutional - Awake and Alert, No apparent distress. Heart - mildly tachycardic, no murmurs. Lungs - Normal lung expansion, Normal respiratory effort, No respiratory distress, CTA bilaterally Abdomen - NT / ND; increased BS; No rebound or guarding Back - non tenderness to palpation, no sensation deficit. Extremities - no calf tenderness bilaterally, no swelling Skin - Warm/Dry Neurological - Alert & oriented x3, strength 4/5 to the lower extremities. No sensory deficit to the lower extremities. Normal speech. No facial droop. Objective Data Active Medications Acetaminophen (Acetaminophen 325 Mg Tablet) 975 mg PO Q6H [facility] Last Admin: 10/02/24 11:45 Dose: 975 mg Documented By: COSMO Albuterol Sulfate (Albuterol Sulfate 90 Mcg 8 Gm Inhaler) 1 puff INHALE Q4H PRN PRN Reason: Wheezing Aspirin (Aspirin 81 Mg Tab.Chew) 81 mg PO DAILY [facility] Last Admin: 10/02/24 09:29 Dose: 81 mg Documented By: COSMO Bisacodyl (Bisacodyl 10 Mg Supp.Rect) 10 mg [place] BEDTIME PRN PRN Reason: Constipation Ceftriaxone Sodium (Ceftriaxone Sodium 1 Gm Vial) 1 gm IVPUSH Q24H [facility] Last Admin: 10/01/24 21:27 Dose: 1 gm Documented By: ANGEL Heparin Sodium (Porcine) (Heparin Sodium,Porcine 5,000 Unit/Ml Vial) 5,000 unit SUBCUT Q12H [facility] Last Admin: 10/02/24 09:30 Dose: 5,000 unit Documented By: COSMO Lactulose (Lactulose 20 Gm/30 Ml Solution) 20 gm PO DAILY [facility] Last Admin: 10/02/24 09:30 Dose: 20 gm Documented By: COSMO Lidocaine (Lidocaine 4 % Patch Adh..Patch) 2 patch TRANSDERMA DAILY [facility] Last Admin: 10/02/24 09:29 Dose: 2 patch Documented By: COSMO Lisinopril (Lisinopril 5 Mg Tablet) 5 mg PO DAILY [facility]; Protocol Last Admin: 10/02/24 09:30 Dose: 5 mg Documented By: COSMO Melatonin (Melatonin 3 Mg Tablet) 6 mg PO BEDTIME PRN PRN Reason: Insomnia Multivitamins/Vitamin C (Multivitamin Tablet) 1 tab PO DAILY [facility] Last Admin: 10/02/24 09:29 Dose: 1 tab Documented By: COSMO Non-Formulary Medication (Fluticasone Furoate-Vilanterol [Breo Ellipta]) 1 inhalation INHALE BID [facility] Oxycodone HCl (Oxycodone Hcl Immed Release 5 Mg Tablet) 5 mg PO Q6H PRN PRN Reason: back pain Last Admin: 10/02/24 12:20 Dose: 5 mg Documented By: COSMO Polyethylene Glycol (Polyethylene Glycol 3350 17 Gm Powd.Pack) 17 gm PO DAILY [facility] Last Admin: 10/02/24 09:30 Dose: 17 gm Documented By: COSMO Sertraline HCl (Sertraline Hcl 25 Mg Tablet) 25 mg PO DAILY [facility] Last Admin: 10/02/24 09:29 Dose: 25 mg Documented By: COSMO Sodium Chloride (0.9 % Sodium Chloride Flush 3 Ml Syringe) 3 ml IVFLUSH QSHIFT [facility] Last Admin: 10/02/24 16:38 Dose: 3 ml Documented By: COSMO Tamsulosin HCl (Tamsulosin Hcl 0.4 Mg Capsule) 0.4 mg PO BEDTIME [facility] Tizanidine HCl (Tizanidine Hcl 4 Mg Tablet) 2 mg PO TID [facility] Labs 10/01/24 05:15 10/02/24 07:04 Labs: Laboratory Results - last 24 hr 10/01/24 10/02/24 21:31 07:04 Hold Purple Top SEE NOTE Anion Gap 12 Estim Creat Clear Calc 65.5 Estimated GFR > 60 Random Glucose 83 Uric Acid 4.5 Calcium 9.0 Urine Osmolality 436 Ur Random Sodium 25.0 Microbiology Microbiology Results: Microbiology 09/30/24 20:49 Blood Culture - Preliminary Blood - Venous No growth after 24 hours. 09/30/24 20:39 Blood Culture - Preliminary Blood - Venous No growth after 24 hours. Assessment and Plan (1) Intractable back pain: Status: Acute Assessment and Plan: 74 y/o woman admitted with: Back pain likely 2/2 to compression fracture L1 and L3, intractable. continue pain control. Continue acetaminophen and Oxycodone 5 mg p.o. every 6 hours as needed. Check lumbar MRI :MRI of back revealed diffuse degenerative disease, most prominent at L5-S1 but a disc osteophyte complex at L4-5 likely creating the problem with [id number] spinal stenosis. seen by neuro: Imaging reviewed: Intractable low back pain with radiation to right leg likely due to L4-5 disc osteophyte pathology. This lesion is mechanical or needed surgical decompression. An epidural injection can be tried for temporary relief until she would have formal neuro surgical consultation. Called Neurosurgery Department in [facility]: Recommended conservative management with pain control/muscle relaxant, also patient will get epidural injection. d/w [facility] neurology Dr toribio office. patient need to follow up outpatient with [facility] neurosurgery . Discussed with the patient daughter in detail length Tachycardia, sinus.-resolved ,lactic acid normal blood cultures pending . Urinary retention (post void bladder >300 ml). Status post indwelling urinary catheter placement by ED. Urology consult -Dr. Kaplan. Presumed UTI. Start empiric IV antibiotic therapy with ceftriaxone. Urine culture obtained -will follow results. History of chronic hyponatremia due to SIADH, sodium level lower than slightly lower than baseline today. moniter sodium level /bmp then every 4 hours. Essential hypertension. Continue lisinopril. Depression. Continue sertraline. Constipation. MiraLax, lactulose and Dulcolax suppository as needed. COPD. Not in acute exacerbation. Continue home inhalers. Tobacco cessation education. Recent left proximal tibial metaphyseal fracture (August 2024). s/p rehab. DVT prophylaxis: Heparin ongoing need hospitalization for severe back pain treatment with pain meds; she will also need further evaluation with lumbar spine MRI to assess for spinal cord abnormalities and evaluation by Urology for urinary retention. Quality Stroke Does the patient have a stroke diagnosis?: No VTE Prior VTE?: No VTE Risk Level:: Medical - moderate - high VTE Device Contraindication: Treatment Not Indicated VTE Drug Contraindication: N/A - Med Ordered
[2024-10-02 18:38] LABS: Sodium 130 mmol/L (135-145)
[2024-10-02] MEDS: cefTRIAXone sodium 1 GM VIAL IVPUSH (21:27)
[2024-10-02] MEDS: TiZANidine HCL 4 MG TABLET 2 MG PO (21:27)
[2024-10-02] MEDS: Tamsulosin HCL 0.4 MG CAPSULE PO (21:27)
[2024-10-03] MEDS: oxyCODONE HCl Immed Release 5 MG TABLET PO ×4 (03:25→23:15)
[2024-10-03 03:27] VITALS: BP 117/59; PULSE 80; RESP 16; TEMP 36.4; O2SAT 93
[2024-10-03] MEDS: 0.9 % Sodium Chloride Flush 3 ML SYRINGE IVFLUSH ×2 (07:33→15:44)
[2024-10-03 07:57] LABS: Anion Gap 13 (12-20); Blood Urea Nitrogen 11 mg/dL (9-16); Calcium 9.3 mg/dL (8.4-10.2); Carbon Dioxide 26 mmol/L (22-29); Chloride 93 mmol/L (96-108); Creatinine Clr Calc Pharmacy 73.8; Estimated Glomerular Filt Rate > 60; Glucose Random 134 mg/dL (60-115); Potassium 4.3 mmol/L (3.3-5.1); Sodium 128 mmol/L (135-145)
[2024-10-03 08:00] VITALS: BP 113/59; PULSE 86; RESP 19; TEMP 36.3; O2SAT 95
[2024-10-03] MEDS: Lactulose 20 GM/30 ML SOLUTION PO (09:11)
[2024-10-03] MEDS: Multivitamin TABLET 1 TAB PO (09:11)
[2024-10-03] MEDS: Aspirin 81 MG TAB.CHEW PO (09:11)
[2024-10-03] MEDS: Sertraline HCL 25 MG TABLET PO (09:11)
[2024-10-03] MEDS: TiZANidine HCL 4 MG TABLET 2 MG PO ×3 (09:11→21:57)
[2024-10-03] MEDS: polyethylene glycoL 3350 17 GM POWD.PACK PO (09:11)
[2024-10-03] MEDS: Heparin Sodium,Porcine 5,000 UNIT/ML VIAL 5000 UNIT SUBCUT ×2 (09:12→21:57)
[2024-10-03] MEDS: lisinopriL 5 MG TABLET PO (09:13)
[2024-10-03] MEDS: Lidocaine 4 % Patch ADH..PATCH 2 PATCH TRANSDERMA (09:13)
--- NOTE | 2024-10-03 09:25 | PC.NURSE ---
diaz cath removed at 9:30 am , d/t void at 15;30
[2024-10-03 12:00] VITALS: BP 155/71; PULSE 87; RESP 19; TEMP 36.8; O2SAT 96
[2024-10-03] MEDS: Acetaminophen 325 MG TABLET 975 MG PO ×2 (12:40→21:57)
--- NOTE | 2024-10-03 14:41 | P.PNIM_ITS ---
Subjective Subjective Date of Service: 10/03/24 Interval History: hyponatremia back pain Review of Systems back pain improving sdoum 128 denies new c/o. Review of Systems: Yes all other systems are reviewed and are negative Physical Exam 2 Vital Signs: Vital Signs: Last Vital Signs Temp 98.3 F 10/03/24 12:00 Pulse 87 10/03/24 12:00 Resp 19 10/03/24 12:00 BP 155/71 H 10/03/24 12:00 Pulse Ox 96 10/03/24 12:00 O2 Del Method Room Air 10/03/24 12:00 BMI result Body Mass Index 18.8 Constitutional - Awake and Alert, No apparent distress. Heart - rrr, no murmurs. Lungs - Normal lung expansion, Normal respiratory effort, No respiratory distress, CTA bilaterally Abdomen - NT / ND; increased BS; No rebound or guarding Back - non tenderness to palpation, no sensation deficit. Extremities - no calf tenderness bilaterally, no swelling Skin - Warm/Dry Neurological - Alert & oriented x3, moves allext Objective Data Active Medications Acetaminophen (Acetaminophen 325 Mg Tablet) 975 mg PO Q6H [facility] Last Admin: 10/03/24 12:40 Dose: 975 mg Documented By: RADHA Albuterol Sulfate (Albuterol Sulfate 90 Mcg 8 Gm Inhaler) 1 puff INHALE Q4H PRN PRN Reason: Wheezing Aspirin (Aspirin 81 Mg Tab.Chew) 81 mg PO DAILY [facility] Last Admin: 10/03/24 09:11 Dose: 81 mg Documented By: RADHA Bisacodyl (Bisacodyl 10 Mg Supp.Rect) 10 mg [place] BEDTIME PRN PRN Reason: Constipation Ceftriaxone Sodium (Ceftriaxone Sodium 1 Gm Vial) 1 gm IVPUSH Q24H [facility] Last Admin: 10/02/24 21:27 Dose: 1 gm Documented By: ALDA Heparin Sodium (Porcine) (Heparin Sodium,Porcine 5,000 Unit/Ml Vial) 5,000 unit SUBCUT Q12H [facility] Last Admin: 10/03/24 09:12 Dose: 5,000 unit Documented By: RADHA Lactulose (Lactulose 20 Gm/30 Ml Solution) 20 gm PO DAILY [facility] Last Admin: 10/03/24 09:11 Dose: 20 gm Documented By: RADHA Lidocaine (Lidocaine 4 % Patch Adh..Patch) 2 patch TRANSDERMA DAILY [facility] Last Admin: 10/03/24 09:13 Dose: 2 patch Documented By: RADHA Lisinopril (Lisinopril 5 Mg Tablet) 5 mg PO DAILY [facility]; Protocol Last Admin: 10/03/24 09:13 Dose: 5 mg Documented By: RADHA Melatonin (Melatonin 3 Mg Tablet) 6 mg PO BEDTIME PRN PRN Reason: Insomnia Multivitamins/Vitamin C (Multivitamin Tablet) 1 tab PO DAILY [facility] Last Admin: 10/03/24 09:11 Dose: 1 tab Documented By: RADHA Non-Formulary Medication (Fluticasone Furoate-Vilanterol [Breo Ellipta]) 1 inhalation INHALE BID [facility] Oxycodone HCl (Oxycodone Hcl Immed Release 5 Mg Tablet) 5 mg PO Q6H PRN PRN Reason: back pain Last Admin: 10/03/24 11:24 Dose: 5 mg Documented By: RADHA Polyethylene Glycol (Polyethylene Glycol 3350 17 Gm Powd.Pack) 17 gm PO DAILY [facility] Last Admin: 10/03/24 09:11 Dose: 17 gm Documented By: RADHA Sertraline HCl (Sertraline Hcl 25 Mg Tablet) 25 mg PO DAILY [facility] Last Admin: 10/03/24 09:11 Dose: 25 mg Documented By: RADHA Sodium Chloride (0.9 % Sodium Chloride Flush 3 Ml Syringe) 3 ml IVFLUSH QSHIFT [facility] Last Admin: 10/03/24 07:33 Dose: 3 ml Documented By: RADHA Tamsulosin HCl (Tamsulosin Hcl 0.4 Mg Capsule) 0.4 mg PO BEDTIME [facility] Last Admin: 10/02/24 21:27 Dose: 0.4 mg Documented By: PARUL-DENISEZEB Tizanidine HCl (Tizanidine Hcl 4 Mg Tablet) 2 mg PO TID [facility] Last Admin: 10/03/24 09:11 Dose: 2 mg Documented By: RADHA Labs 10/01/24 05:15 10/03/24 06:34 Labs: Laboratory Results - last 24 hr 10/03/24 06:34 Hold Purple Top SEE NOTE Anion Gap 13 Estim Creat Clear Calc 73.8 Estimated GFR > 60 Random Glucose 134 H Calcium 9.3 Microbiology Microbiology Results: Microbiology 09/30/24 20:49 Blood Culture - Preliminary Blood - Venous No growth after 48 hours. 09/30/24 20:39 Blood Culture - Preliminary Blood - Venous No growth after 48 hours. Assessment and Plan (1) Intractable back pain: Status: Acute Assessment and Plan: 74 y/o woman admitted with: Back pain likely 2/2 to compression fracture L1 and L3, intractable. continue pain control. Continue acetaminophen and Oxycodone 5 mg p.o. every 6 hours as needed. Check lumbar MRI :MRI of back revealed diffuse degenerative disease, most prominent at L5-S1 but a disc osteophyte complex at L4-5 likely creating the problem with [id number] spinal stenosis. seen by neuro: Imaging reviewed: Intractable low back pain with radiation to right leg likely due to L4-5 disc osteophyte pathology. This lesion is mechanical or needed surgical decompression. An epidural injection can be tried for temporary relief until she would have formal neuro surgical consultation. Called Neurosurgery Department in [facility]: Recommended conservative management with pain control/muscle relaxant, also patient will get epidural injection. d/w [facility] neurology [place]. patient need to follow up outpatient with [facility] neurosurgery . Tachycardia, sinus.-resolved ,lactic acid normal blood cultures pending . Urinary retention : Imaging reviewed by Urology- hydro nephrosis chronic, function normal Will remove the catheter today. Presumed UTI. Start empiric IV antibiotic therapy with ceftriaxone. Urine culture obtained -will follow results. History of chronic hyponatremia due to SIADH, sodium level lower than slightly lower than baseline today. moniter sodium level /bmp then every 4 hours. Essential hypertension. Continue lisinopril. Depression. Continue sertraline. Constipation. MiraLax, lactulose and Dulcolax suppository as needed. COPD. Not in acute exacerbation. Continue home inhalers. Tobacco cessation education. Recent left proximal tibial metaphyseal fracture (August 2024). s/p rehab. DVT prophylaxis: Heparin ongoing need hospitalization for severe back pain treatment with pain meds; she will also need further evaluation with lumbar spine MRI to assess for spinal cord abnormalities and evaluation by Urology for urinary retention. Quality Stroke Does the patient have a stroke diagnosis?: No VTE Prior VTE?: No VTE Risk Level:: Medical - moderate - high VTE Device Contraindication: Treatment Not Indicated VTE Drug Contraindication: N/A - Med Ordered
[2024-10-03 15:58] VITALS: BP 117/68; PULSE 75; RESP 18; TEMP 36.8; O2SAT 96
[2024-10-03 19:26] VITALS: BP 94/50; PULSE 78; RESP 16; TEMP 36.8; O2SAT 96
[2024-10-03] MEDS: cefTRIAXone sodium 1 GM VIAL IVPUSH (21:57)
[2024-10-03] MEDS: Tamsulosin HCL 0.4 MG CAPSULE PO (21:57)
[2024-10-03 23:56] VITALS: BP 104/54; PULSE 65; RESP 16; TEMP 36.6; O2SAT 95
[2024-10-04 04:00] VITALS: BP 127/68; PULSE 83; RESP 16; TEMP 36.2; O2SAT 99
--- NOTE | 2024-10-04 07:44 | HO.PM.IMPN ---
Subjective Subjective Date of Service: 10/04/24 Interval History: back pain Review of Systems Review of Systems: Yes all other systems are reviewed and are negative Physical Exam Vital Signs: Vital Signs: Last Vital Signs Temp 97.2 F 10/04/24 04:00 Pulse 83 10/04/24 04:00 Resp 16 10/04/24 04:00 BP 127/68 10/04/24 04:00 Pulse Ox 99 10/04/24 04:00 O2 Del Method Room Air 10/04/24 04:00 BMI result Body Mass Index 18.8 Objective Data Active Medications Acetaminophen (Acetaminophen 325 Mg Tablet) 975 mg PO Q6H [facility] Last Admin: 10/04/24 05:06 Dose: Not Given Documented By: ALDA Non-Admin Reason: Patient Refused Albuterol Sulfate (Albuterol Sulfate 90 Mcg 8 Gm Inhaler) 1 puff INHALE Q4H PRN PRN Reason: Wheezing Aspirin (Aspirin 81 Mg Tab.Chew) 81 mg PO DAILY [facility] Last Admin: 10/03/24 09:11 Dose: 81 mg Documented By: RADHA Bisacodyl (Bisacodyl 10 Mg Supp.Rect) 10 mg DC BEDTIME PRN PRN Reason: Constipation Ceftriaxone Sodium (Ceftriaxone Sodium 1 Gm Vial) 1 gm IVPUSH Q24H [facility] Last Admin: 10/03/24 21:57 Dose: 1 gm Documented By: ALDA Heparin Sodium (Porcine) (Heparin Sodium,Porcine 5,000 Unit/Ml Vial) 5,000 unit SUBCUT Q12H [facility] Last Admin: 10/03/24 21:57 Dose: 5,000 unit Documented By: ALDA Lactulose (Lactulose 20 Gm/30 Ml Solution) 20 gm PO DAILY [facility] Last Admin: 10/03/24 09:11 Dose: 20 gm Documented By: RADHA Lidocaine (Lidocaine 4 % Patch Adh..Patch) 2 patch TRANSDERMA DAILY [facility] Last Admin: 10/03/24 09:13 Dose: 2 patch Documented By: RADHA Lisinopril (Lisinopril 5 Mg Tablet) 5 mg PO DAILY [facility]; Protocol Last Admin: 10/03/24 09:13 Dose: 5 mg Documented By: RADHA Melatonin (Melatonin 3 Mg Tablet) 6 mg PO BEDTIME PRN PRN Reason: Insomnia Multivitamins/Vitamin C (Multivitamin Tablet) 1 tab PO DAILY [facility] Last Admin: 10/03/24 09:11 Dose: 1 tab Documented By: RADHA Non-Formulary Medication (Fluticasone Furoate-Vilanterol [Breo Ellipta]) 1 inhalation INHALE BID [facility] Oxycodone HCl (Oxycodone Hcl Immed Release 5 Mg Tablet) 5 mg PO Q6H PRN PRN Reason: back pain Last Admin: 10/03/24 23:15 Dose: 5 mg Documented By: ALDA Polyethylene Glycol (Polyethylene Glycol 3350 17 Gm Powd.Pack) 17 gm PO DAILY [facility] Last Admin: 10/03/24 09:11 Dose: 17 gm Documented By: RADHA Sertraline HCl (Sertraline Hcl 25 Mg Tablet) 25 mg PO DAILY [facility] Last Admin: 10/03/24 09:11 Dose: 25 mg Documented By: RADHA Sodium Chloride (0.9 % Sodium Chloride Flush 3 Ml Syringe) 3 ml IVFLUSH QSHIFT [facility] Last Admin: 10/04/24 01:12 Dose: Not Given Documented By: ALDA Non-Admin Reason: Patient Asleep Tamsulosin HCl (Tamsulosin Hcl 0.4 Mg Capsule) 0.4 mg PO BEDTIME [facility] Last Admin: 10/03/24 21:57 Dose: 0.4 mg Documented By: ALDA Tizanidine HCl (Tizanidine Hcl 4 Mg Tablet) 2 mg PO TID [facility] Last Admin: 10/03/24 21:57 Dose: 2 mg Documented By: ALDA Labs 10/01/24 05:15 10/03/24 06:34 Labs: Laboratory Results - last 24 hr 10/03/24 06:34 Anion Gap 13 Estim Creat Clear Calc 73.8 Estimated GFR > 60 Random Glucose 134 H Calcium 9.3 Assessment and Plan (1) Intractable back pain: Status: Acute Assessment and Plan: 74 y/o woman admitted with: Back pain likely 2/2 to compression fracture L1 and L3, intractable. continue pain control. Continue acetaminophen and Oxycodone 5 mg p.o. every 6 hours as needed. Check lumbar MRI :MRI of back revealed diffuse degenerative disease, most prominent at L5-S1 but a disc osteophyte complex at L4-5 likely creating the problem with [id number] spinal stenosis. seen by neuro: Imaging reviewed: Intractable low back pain with radiation to right leg likely due to L4-5 disc osteophyte pathology. This lesion is mechanical or needed surgical decompression. An epidural injection can be tried for temporary relief until she would have formal neuro surgical consultation. Called Neurosurgery Department in [facility]: Recommended conservative management with pain control/muscle relaxant, also patient will get epidural injection. d/w [facility] neurology [place]. patient need to follow up outpatient with [facility] neurosurgery . Tachycardia, sinus.-resolved ,lactic acid normal blood cultures neg@48hrs . Urinary retention : Imaging reviewed by Urology- hydro nephrosis chronic, function normal Will remove the catheter today. Presumed UTI. Start empiric IV antibiotic therapy with ceftriaxone. Urine culture obtained -will follow results. History of chronic hyponatremia due to SIADH, sodium level lower than slightly lower than baseline today. moniter sodium level /bmp then every 4 hours. Essential hypertension. Continue lisinopril. Depression. Continue sertraline. Constipation. MiraLax, lactulose and Dulcolax suppository as needed. COPD. Not in acute exacerbation. Continue home inhalers. Tobacco cessation education. Recent left proximal tibial metaphyseal fracture (August 2024). s/p rehab. DVT prophylaxis: Heparin ongoing need hospitalization for severe back pain treatment with pain meds; she will also need further evaluation with lumbar spine MRI to assess for spinal cord abnormalities and evaluation by Urology for urinary retention. Quality Stroke Does the patient have a stroke diagnosis?: No VTE Prior VTE?: No VTE Risk Level:: Medical - moderate - high VTE Device Contraindication: Treatment Not Indicated VTE Drug Contraindication: N/A - Med Ordered
[2024-10-04 07:50] VITALS: BP 113/56; PULSE 88; RESP 18; TEMP 36.7; O2SAT 96
[2024-10-04] MEDS: oxyCODONE HCl Immed Release 5 MG TABLET PO (08:51)
[2024-10-04] MEDS: Multivitamin TABLET 1 TAB PO (09:29)
[2024-10-04] MEDS: Aspirin 81 MG TAB.CHEW PO (09:29)
[2024-10-04] MEDS: TiZANidine HCL 4 MG TABLET 2 MG PO (09:29)
[2024-10-04] MEDS: lisinopriL 5 MG TABLET PO (09:29)
[2024-10-04] MEDS: Lactulose 20 GM/30 ML SOLUTION PO (09:29)
[2024-10-04] MEDS: Sertraline HCL 25 MG TABLET PO (09:29)
[2024-10-04] MEDS: polyethylene glycoL 3350 17 GM POWD.PACK PO (09:29)
[2024-10-04] MEDS: Acetaminophen 325 MG TABLET 975 MG PO (09:30)
[2024-10-04] MEDS: Heparin Sodium,Porcine 5,000 UNIT/ML VIAL 5000 UNIT SUBCUT (09:30)
[2024-10-04] MEDS: 0.9 % Sodium Chloride Flush 3 ML SYRINGE IVFLUSH (09:31)
[2024-10-04] MEDS: Lidocaine 4 % Patch ADH..PATCH 2 PATCH TRANSDERMA (09:38)
[2024-10-04 11:02] LABS: Anion Gap 15 (12-20); Blood Urea Nitrogen 19 mg/dL (9-16); Calcium 10.1 mg/dL (8.4-10.2); Carbon Dioxide 27 mmol/L (22-29); Chloride 94 mmol/L (96-108); Estimated Glomerular Filt Rate > 60; Glucose Random 103 mg/dL (60-115); Potassium 3.9 mmol/L (3.3-5.1); Sodium 132 mmol/L (135-145)
[2024-10-04 11:34] VITALS: BP 107/57; PULSE 86; RESP 18; TEMP 36.9; O2SAT 96
--- NOTE | 2024-10-04 13:18 | P.DS_ITS ---
DS: Providers Provider Date of Service: 10/04/24 Date of admission: 09/30/24 19:13 Date of discharge: 10/04/24 Primary care physician: Alan Chanel MD Consults: 10/01/24 12:40 Consult to Neurology Routine Consulting Provider: [facility] Reason for consultation: radiculopathy -compression fx lumabar -? cord compression Has provider been notified: No 10/01/24 16:33 Consult to Nephrology Routine Consulting Provider: [facility] Reason for consultation: hyponatremia Has provider been notified: No 10/02/24 09:08 Consult to Urology Routine Consulting Provider: [facility] Reason for consultation: Urinary retention and right hydronephrosis Has provider been notified: No DS: Diagnosis Discharge Diagnosis (1) Intractable back pain: Status: Acute DS: Summary Hospital Course Hospital Course: 74 years old woman with past medical history significant for essential hypertension, osteoporosis, chronic hyponatremia due to SIADH and recent tibial fracture requiring rehab was brought to the emergency department due to persistent severe lower back pain that started last Saturday. The pain is described as sharp radiating to the abdomen. She also complained of nausea and vomiting. The pain started after he tried to open a window using both hand. She denied any fall or trauma. Patient also denied any dizziness, headache, loss of consciousness, diarrhea, fever, legs numbness or chills. She does have gait difficulty which has been attributed to recent tibial fracture. Patient complain of poor appetite. Her last bowel movement was 3 days ago. She had has been taking Tylenol and naproxen without significant improvement of the pain. She did not report any acute cardiopulmonary symptoms. She has an ongoing tobacco smoker. Patient's daughter was at bedside and contributed with HPI In the ED, she was found to have tachycardia. There is no hypotension, fever or tachypnea. Her blood workup was significant for anemia 10.6. There is no leukocytosis and platelets are normal. There is hyponatremia of 125 (baseline 129-131). There is no other electrolyte imbalances. LFTs and renal function are normal. ECG showed normal sinus rhythm, heart rate 89 beats per minute, T- wave abnormalities in anterior leads. Abdomen and pelvis CT scan without contrast showed severe right hydronephrosis and mild left hydronephrosis, moderate amount of stools, sigmoid diverticulitis without evidence of diverticulitis and severe compression of L1 and mild to moderate compression of L3. ED tx: Tylenol 1 mg IV, lidocaine patch, morphine 4 mg total IV Hospital course: Back pain:mri reviewed by neurology: Intractable low back pain with radiation to right leg likely due to L4-5 disc osteophyte pathology. An epidural injection can be tried for temporary relief until she would have formal neuro surgical consultation, also had epidural injection: Back pain seems to be improving- continue tizanidine/oxycodone, Tylenol, lidocaine patch:Neurosurgical team in [facility]-discussed with [facility] Neurosurgery, they also reviewed MRI, recommended outpatient follow-up, patient also currently does not want neuro surgical intervention. Currently patient is able to move around, no bladder or bowel incontinence, pain is also improving. Patient is to follow-up with the [facility] neurosurgical office Dr TRINITY Shah office, [address] [place] [address] [address] ,suit 503,phone no [phone]. Discussed with the patient in detail-hold opoiods for sedation or constipation. Also follow-up vitamin-D levels outpatient. MRI reviewed by Neurology here as well as neurosurgical team in [facility]: Urinary retention: Initially placed Mejia-biliary retention improved. She denies any symptoms of UTI-received antibiotic for 4 days, blood culture negative, urine culture<[id number]. Follow-up with Urology outpatient. Constipation. MiraLax, lactulose and Dulcolax suppository as needed. Hyponatremia : Patient has chronic SIADH, seen by Nephro recommended fluid restrictions, patient was advised to follow fluid intake total 1.5-1.8 L a day. May consider adjusting until this present out patiently if patient continued to have hyponatremia. Consider outpatient nephro evaluation as PCP. Monitor BMP closely outpatient. Discussed with the patient in detail length patient-patient will benefit from going to rehab, discussed with her in detail with the staff present-patient understands and refused to go to rehab currently. She was also offered to stay with her daughter but she declines that too. Patient will be going home with PT and VNA. plan: Continue pain medications-continue tizanidine/oxycodone, Tylenol, lidocaine patch. Follow-up with neurosurgical office [facility]. Patient is to follow-up with the [facility] neurosurgical office Dr TRINITY Bullock office, [address] [place] [address] aniyah Lundberg [address],phone no [phone]. Monitor BMP outpatient.May consider adjusting until this present out patiently if patient continued to have hyponatremia. Consider outpatient nephro evaluation as PCP. Follow-up with Urology. Any new complaints including worsening back pain or fever or chills or nausea vomiting or urinary complaints-please go to nearest emergency room. Above management discussed with the patient and her daughter in detail length- they both understand and in agreement with the above plan, time spent 40 minute. All question answered. Staff was present during conversation. Time Attestation Total time managing care of this patient today: 40 mintues. Discharge Coordination Time (in mins): 40 min Quality: Safe Use of Opioids Does Pt have an Active Cancer Diagnosis on the Problem List?: No Quality: Stroke Does the patient have a stroke diagnosis?: No Physical Exam Vital Signs: Vital Signs: Last Vital Signs Temp 98.5 F 10/04/24 11:34 Pulse 86 10/04/24 11:34 Resp 18 10/04/24 11:34 BP 107/57 L 10/04/24 11:34 Pulse Ox 96 10/04/24 11:34 O2 Del Method Room Air 10/04/24 11:34 BMI result Body Mass Index 18.8 Constitutional - Awake and Alert, No apparent distress. Heart - rrr, no murmurs. Lungs - Normal lung expansion, Normal respiratory effort, No respiratory distress, CTA bilaterally Abdomen - NT / ND; increased BS; No rebound or guarding Back - non tenderness to palpation, no sensation deficit. Extremities - no calf tenderness bilaterally, no swelling Skin - Warm/Dry Neurological - Alert & oriented x3, moves allext DS: Data Data Completed and Pending Labs on day of discharge: Laboratory Results - last 24 hr 10/04/24 10:30 Sodium 132 L Potassium 3.9 Chloride 94 L Carbon Dioxide 27 Anion Gap 15 BUN 19 H Creatinine 0.70 Estim Creat Clear Calc 58.0 Estimated GFR > 60 Random Glucose 103 Calcium 10.1 D Preliminary micro results at discharge 09/30/24 20:49 Blood Culture - Preliminary Blood - Venous No growth after 48 hours. 09/30/24 20:39 Blood Culture - Preliminary Blood - Venous No growth after 48 hours. Imaging Chest x-ray: Radiologist's impression: ITS Impressions Abdomen/Pelvis CT 09/30/24 14:34 IMPRESSION: 1. Limited examination due to a paucity of abdominal fat and lack of intravenous and oral contrast material. 2. Severe right hydronephrosis and mild left hydronephrosis. 3. Moderate amount of stool throughout the colon. Sigmoid diverticulosis without evidence of diverticulitis. 4. Severe compression deformity of L1 and mild to moderate compression deformity of L3. 5. Evaluation for dissection is not possible without intravenous contrast material. Electronically signed by: Rios Castellanos MD 09/30/2024 03:05 PM EDT Lumbar Spine MRI 10/01/24 14:30 IMPRESSION: 1. There is levoconvex scoliosis. 2. There are subacute appearing compression deformities of L1 (severe, with 5 mm retropulsion of bone), the superior endplate of L3 by approximately 30%, and minimally the inferior endplate of L5 by approximately 10%. 3. There is moderate central canal stenosis at the L1 level due to retropulsed bone from the vertebral plana deformity. There is no definite impingement of the conus or signal abnormality. 4. A 6 mm degenerative anterolisthesis at L4-5 results in severe central canal stenosis and severe bilateral subarticular recess stenosis. 5. Moderate central canal stenosis and moderate bilateral subarticular recess stenosis at L5-S1, with moderate to severe left neural foraminal stenosis. See above for details. 6. See the body of the report for additional ancillary findings, including probable severe right hydronephrosis. Electronically signed by: Anurag Crow MD 10/01/2024 03:34 PM EDT Discharge Plan Discharge Anticipated Discharge Date/Time: 10/04/24 12:08 Patient Disposition: Home Health Service Discharge Diagnosis: back pain, urinary retention Referrals: [facility] [Outside] - 1 Week Alan Chanel MD [Primary Care Provider] - 1 Week Discharge Medications: New acetaminophen 325 mg Tablet 975 mg PO Q6H Qty: 20 0RF polyethylene glycol 3350 17 gram Powder In Packet 17 g PO DAILY Qty: 30 0RF tizanidine 4 mg Tablet 2 mg PO TID Qty: 10 0RF oxycodone 5 mg Tablet 5 mg PO Q6H PRN (Reason: back pain) Qty: 28 0RF Rx Instructions: Partial Fill upon patient request. Continued lisinopril 5 mg tablet 5 mg PO DAILY Qty: 90 1RF lidocaine [Lidoderm] 5 % adhesive patch,medicated 2 patch topical DAILY Qty: 30 0RF Rx Instructions: leave on most painful area for up to 12 hrs multivitamin Tablet 1 tab PO DAILY albuterol sulfate 90 mcg/actuation HFA aerosol inhaler 1 inh inhalation Q4H PRN (Reason: Wheezing) naproxen 500 mg tablet 500 mg PO BID PRN (Reason: pain) Breo Ellipta 50-25 mcg/dose blister with device 1 inh inhalation BID sertraline 50 mg tablet 25 mg PO DAILY melatonin 3 mg Tablet 6 mg PO BEDTIME aspirin [Doyle Chewable Aspirin] 81 mg tablet,chewable 81 mg PO DAILY calcium carbonate [Calcium 600] 600 mg calcium (1,500 mg) tablet 600 mg PO DAILY Discharge Orders: Discharge Order (Routine); Ordered 10/04/24 Ordered By: Hector Gerber Diet: Advance to usual diet Activity on Discharge: As tolerated Stand Alone Forms: Patient Portal Discharge page Print Language: Kosovan Other Ambulatory Orders: Basic Metabolic Panel (Routine) Timeframe: 1 Week Facility: [facility] - Location: Laboratory Ordered By: Hector Gerber Care Plan Goals: as below. Health Concerns: Continue pain medications-continue tizanidine/oxycodone, Tylenol, lidocaine patch. Follow-up with neurosurgical office [facility]. Patient is to follow-up with the [facility] neurosurgical office Dr TRINITY Bullock office, [address] [place] [address] aniyah Lundberg 503,phone no [phone]. Monitor BMP outpatient. Follow-up with Urology. Any new complaints including worsening back pain or fever or chills or nausea vomiting or urinary complaints-please go to nearest emergency room. Plan of Treatment: As above. Assessment: As above. Patient Instructions: Acetaminophen (By mouth), Oxycodone, Rapid Release (By mouth), Tizanidine (By mouth), Polyethylene Glycol 3350 (By mouth) Discharge Date/Time: 10/04/24 14:30
--- NOTE | 2024-10-04 13:30 | P.F2F_ITS ---
Service Date Service Date: 10/04/24 Encounter Date of encounter: 10/04/24 Encounter: Hyponatremia, compression deformities of lumbar spine, back pain. Reasons for Services Signs and symptoms assessed: Worsening back pain, fever or new neurological symptoms Reason for penitentiary: CV/CP assess and/or care, neurological assessment, medication management, medication treatment and teach disease management Reason for physical therapy: home safety and mobility, therapeutic exercises, restore joint function, gait/transfer training, assess need for DME, ADL training, energy conservation and other MD Overseeing Care: Alan Chanel Homebound: Leaving the home is medically contraindicated at this time without the asist of a device and/or another person due th the listed conditions above and below. Reason homebound: weakness related to hospital stay Homebound supporting statement: patient is generalised weak post hospitlisation and need help with going to [place] ointments and labs draws as well as PT. Certification: Based on the above findings, I certify that this patient is confined to the home and needs intermittent penitentiary care, physical therapy and/or speech therapy, or continues to need occupational therapy. The patient is under my care, and I have initiated the establishment of the plan of care. The patient will be followed by a physician who will periodically review the plan of care. Time Spent With Patient Time: Total time managing care of this patient today ____ minutes.
--- NOTE | 2024-10-04 13:42 | MHC.CM.PN ---
PT DECLINING STR, SHE WILL DC HOME TODAY WITH [facility] FOR SN AND PT PT ASKS THAT THE [facility] CONTACT HER SISTER TO ARRANGE SOC SHE IS HEARING IMPAIRED MESSAGE RELAYED TO [facility]IA [employer] FAM[facility] TO TRANSPORT
--- NOTE | 2024-10-04 14:36 | PC.NURSE ---
Naloxone was given to the pt with her discharge instructions , her sister was educated on use of Naloxone with understanding
[2024-10-09 15:23] LABS: Vitamin D 25-OH, D2 <4 ng/mL; Vitamin D 25-OH, D3 37 ng/mL; Vitamin D 25-OH, Total 37 ng/mL (30-100)
== END 2024-10-04 14:30 | disposition home health service (06) | DRG 552 ==
LOC: HO.ED 19:02 → HO.EDOVER 19:20 → HO.IMC 10-01 14:28
PROVIDERS: Internal Medicine Critical Care Medicine; Admitting Provider Internal Medicine; Emergency Provider Emergency Medicine; PCP Internal Medicine; Visit Provider Internal Medicine
DX: M25.78 Osteophyte, vertebrae (principal); M48.56XA Collapsed vertebra, not elsewhere classified, lumbar region, initial encounter for fracture; E22.2 Syndrome of inappropriate secretion of antidiuretic hormone; N13.6 Pyonephrosis; K59.00 Constipation, unspecified; R33.9 Retention of urine, unspecified; I10 Essential (primary) hypertension; J44.9 Chronic obstructive pulmonary disease, unspecified; F32.A Depression, unspecified; E86.1 Hypovolemia; Z79.82 Long term (current) use of aspirin; Z79.899 Other long term (current) drug therapy
CPT/HCPCS: 36415; 62323; 72148; 74176; 80048; 80053; 81001; 82306; 83605; 83690; 83735; 83935; 84295; 84300; 84484; 84550; 85025; 87040; 87086; 93005; 97162; 99285; J0131; J0665; J0696; J0702; J1644; J2270

== ENCOUNTER → 2024-09-30 12:03 | Outpatient (BNV) | payer MEDICARE, MEDICAID, SELFPAY | PROVIDERS: Emergency Provider Emergency Medicine; PCP Internal Medicine; Visit Provider Internal Medicine Cardiovascular Disease | DX: I49.1 Atrial premature depolarization (principal); I25.2 Old myocardial infarction | CPT/HCPCS: 93010 ==

== ENCOUNTER → 2024-09-30 12:50 | Outpatient (BNV) | payer MEDICARE, MEDICAID, SELFPAY | PROVIDERS: Emergency Provider Emergency Medicine; PCP Internal Medicine; Visit Provider Radiology Diagnostic Radiology | DX: M54.50 Low back pain, unspecified (principal) | CPT/HCPCS: 74176 ==

== ENCOUNTER 2024-09-30 19:13 | Outpatient (BNV) | payer MEDICARE, MEDICAID, SELFPAY | END 2024-10-02 15:30 | PROVIDERS: Admitting Provider Internal Medicine; Emergency Provider Emergency Medicine; PCP Internal Medicine; Visit Provider Radiology Diagnostic Radiology | DX: M48.062 Spinal stenosis, lumbar region with neurogenic claudication (principal); M54.50 Low back pain, unspecified; R33.9 Retention of urine, unspecified; M41.86 Other forms of scoliosis, lumbar region | CPT/HCPCS: 62323 ==

== ENCOUNTER 2024-09-30 19:13 | Outpatient (BNV) | payer MEDICARE, MEDICAID, SELFPAY | END 2024-10-01 14:30 | PROVIDERS: Admitting Provider Internal Medicine; Emergency Provider Emergency Medicine; PCP Internal Medicine; Visit Provider Radiology Diagnostic Radiology | DX: M43.9 Deforming dorsopathy, unspecified (principal) | CPT/HCPCS: 72148 ==

== ENCOUNTER → 2024-09-30 19:13 | Outpatient (BNV) | payer MEDICARE, MEDICAID, SELFPAY | PROVIDERS: Admitting Provider Internal Medicine; Emergency Provider Emergency Medicine; PCP Internal Medicine; Visit Provider Urology | DX: R32 Unspecified urinary incontinence (principal); N13.30 Unspecified hydronephrosis | CPT/HCPCS: 99222 ==

== ENCOUNTER → 2024-09-30 19:13 | Outpatient (BNV) | payer MEDICARE, MEDICAID, SELFPAY | PROVIDERS: Admitting Provider Internal Medicine; Emergency Provider Emergency Medicine; PCP Internal Medicine; Visit Provider Nurse Practitioner Family | DX: E87.1 Hypo-osmolality and hyponatremia (principal) | CPT/HCPCS: 99221 ==

== ENCOUNTER → 2024-09-30 19:13 | Outpatient (BNV) | payer MEDICARE, MEDICAID, SELFPAY | PROVIDERS: Admitting Provider Internal Medicine; Emergency Provider Emergency Medicine; PCP Internal Medicine; Visit Provider Psychiatry & Neurology Neurology | DX: M54.9 Dorsalgia, unspecified (principal) | CPT/HCPCS: 99222 ==

== ENCOUNTER → 2024-09-30 19:13 | Outpatient (BNV) | payer MEDICARE, MEDICAID, SELFPAY | PROVIDERS: Admitting Provider Internal Medicine; Emergency Provider Emergency Medicine; PCP Internal Medicine; Visit Provider Internal Medicine | DX: M54.9 Dorsalgia, unspecified (principal) | CPT/HCPCS: 99232 ==

== ENCOUNTER 2024-10-16 08:06 | Outpatient (AMB) | payer MEDICARE, MEDICAID, SELFPAY ==
--- NOTE | 2024-10-16 08:08 | A.OFFPC_ITS ---
Vital Signs 10/16/24 08:09 Height 5 ft 6 in Weight 103 lb 9.876 oz BMI 16.7 BP 130/100 H Blood Pressure Location Lt brachial Position Sitting Respiration 26 H Pulse 93 Pulse Source Pulse Oximeter Temp 97.3 F Temp Source Temporal Artery Scan Pulse Oximetry (%) 99 Oxygen Delivery Method Room Air Intake Visit Reasons: TCM [facility] 10/04 Hyponatremia Intake Note: Patient is here for hospital discharge follow up. Patient was discharged from [facility] in [place], [place] on 10/04/2024. Pain Coordinator Required: No Accompanied by: Sister Allergies No Known Allergies [No Known Allergies*] Allergy (Verified 10/16/24 08:10) Medication List - Last Reconciled 10/16/24 by Isabella Avila NP acetaminophen 975 mg (3 x 325 mg) PO Q6H albuterol sulfate 90 mcg/actuation 1 inh inhalation Q4H PRN aspirin (Doyle Chewable Low Dose Aspirin) 81 mg PO DAILY calcium carbonate (Calcium 600) 600 mg PO DAILY fluticasone furoate-vilanterol 50-25 mcg/dose (Breo Ellipta) 1 inh inhalation BID lisinopril 5 mg PO DAILY multivitamin 1 tab PO DAILY sennosides-docusate sodium 8.6-50 mg (Senna Plus) 2 tab-caps (2 x 8.6-50 mg) PO BEDTIME Tobacco use date assessed: 10/16/24 Fall risk assessment: No Falls in past year Last assessed Fall Risk: 10/16/24 Dental Screening Dental Screen Date: 10/16/24 Did you have a dental visit in the last 12 months?: No Did you have a dental problem in the last 6 months where you did not have access to dental care?: No Was dental information given to patient?: No HPI HPI Comments History of Present Illness Details 74 y/o Female patient who presents to [facility] for TCM. PMhx significant for essential hypertension, osteoporosis, chronic hyponatremia due to SIADH and recent tibial fracture requiring rehab. Pt was admitted at [facility] on 09/30 - 10/04 for evaluation and treatment for Hyponatremia, severe compression of L1 and mild to moderate compression of L3. Will place referral to Neuro-Spine [facility] for outpatient management. Pt denies Bladder or bowel symptoms. Hyponatremia (resolved) - Sodium levels back to normal. Patient asking for Nicotine patches - she started to smoke Nocotine again. [facility] Medical History (Updated 10/16/24 @ 08:45 by Isabella Avila NP) Compression fracture of L1 lumbar vertebra SIADH (syndrome of inappropriate ADH production) De Quervain's tenosynovitis, left Arthritis of hand, left, degenerative Hearing impairment Smoker Depression Anxiety Osteoporosis Urinary urgency Urinary incontinence Varicose veins of bilateral lower extremities with pain Peripheral polyneuropathy Pure hypercholesterolemia Anemia Compression fracture of L4 vertebra with routine healing Lumbar degenerative disc disease Benign essential hypertension COPD (chronic obstructive pulmonary disease) Surgical History History of cystoscopy History of bilateral cataract extraction Family History Father No problems noted. Mother Lung cancer Sister Down syndrome Maternal Grandfather Lung cancer Maternal Grandmother Lung cancer Other Hyponatremia Social History Household Members: None Housing: House Do you presently have visiting nurse or other home services: Yes Alcohol intake: never Patient Tobacco Use Status: Former Tobacco user Tobacco use type: Cigarette Cigarette Packs Per Day: 2 Cigarettes Per Day: 40 e-Cigarette/Vaping Use: Never Used Second Hand Smoke Exposure: Yes Advance Directives Date on File: 04/10/24 service: No Current occupational status: retired Cognitive needs: No Hearing needs: Yes Vision needs: Yes (Glasses) Questionnaire Thrive Questionnaire Date Thrive assessed: 10/16/24 I am a: Patient What is your living situation today?: I have a steady place to live Within the past 12 months, did the food you bought not last and you didn't have the money to get more?: Never true Within the past 12 months, did you worry whether your food would run out before you got money to buy more?: Never true Do you have trouble paying for medicines?: No Do you have trouble getting transportation to medical appointments?: No Do you have trouble paying your heating and electricity bill?: No Do you have trouble taking care of your child, family member or friend?: No Do you have trouble with day-to-day activities such as bathing, preparing meals, shopping, managing finances, etc.?: No Are you currently unemployed and looking for a job?: No Are you interested in more education?: No Please select the resources that you would like help with: None Currently or been in a relationship where the following occur: No concerns reported THRIVE Score: 0 AUDIT C Alcohol Use Questionnaire (AUDIT-C) 1. How often do you have a drink containing alcohol?: Never Total Score: 0 Score Reviewed/Action Taken: No BROOKE-7 AMB Questionnaire BROOKE-7 Date BROOKE - 7 assessed: 02/05/24 Source: Developed by Drs. Rios Hager, Marie Marr, Marcus Moser and colleagues, with an educational felipe from [employer]. Review of Systems Const All systems reviewed & are unremarkable except as noted in HPI and below Physical exam (Primary Care) Vital Signs: Last Vital Signs Temp 97.3 F 10/16/24 08:09 Pulse 93 10/16/24 08:09 Resp 26 H 10/16/24 08:09 BP 130/100 H 10/16/24 08:09 Pulse Ox 99 10/16/24 08:09 Oxygen Delivery Method Room Air 10/16/24 08:09 BMI result Body Mass Index 16.7 Tobacco/Smoking Status: Tobacco use Status Tobacco use date assessed 10/16/24 10/16/24 08:23 Patient Tobacco Use Status Former Tobacco user 10/16/24 08:23 Tobacco use type Cigarette 10/16/24 08:23 e-Cigarette/Vaping Use Never Used 10/16/24 08:23 Thrive Assessment: Date of Thrive Assessment Date Thrive assessed 10/16/24 10/16/24 08:23 Currently or been in a relationship where the following occur: No concerns reported Const General: no acute distress Nutritional Appearance: thin Orientation/consciousness: patient oriented x3 Limitations: ambulation with walker Resp Effort & Inspection: normal respiratory effort Cardio Heart sounds: S1 normal heart sound present and S2 normal heart sound present General: Yes no CVA tenderness Back/Spine/Pelvis Back: no CVA tenderness and back tenderness Thoracic/Lumbar Spine: pain with thoraco-lumbar ROM and lumbar spinal tenderness Neuro General: patient oriented x3 and moves all extremities Coding Level of Care Code TCM Mod MDM <= 14 Days Diagnoses Compression fracture of L1 vertebra, initial encounter S32.010A Encounter type: initial encounter SIADH (syndrome of inappropriate ADH production) E22.2 Smoker F17.200 Time Spent (min) 20 Assessment & Plan Assessment & Plan (1) Compression fracture of L1 lumbar vertebra: Code(s): S32.010A - Wedge compression fracture of first lumbar vertebra, initial encounter for closed fracture Category: Medical Qualifiers: Encounter type: initial encounter Qualified Code(s): S32.010A - Wedge compression fracture of first lumbar vertebra, initial encounter for closed fracture Plan: Placed referral to Neuro Ordered Gabapentin (2) SIADH (syndrome of inappropriate ADH production): Code(s): E22.2 - Syndrome of inappropriate secretion of antidiuretic hormone Category: Medical Plan: Resolved. (3) Smoker: Code(s): F17.200 - Nicotine dependence, unspecified, uncomplicated Category: Social Hx Plan: Ordered Nicotine Patch Orders: Referrals Neuro Spine Referral S32.010A - Wedge compression fracture of first lumbar vertebra, initial encounter for closed fracture Medications: New nicotine 1 patch transdermal Q24H 28 ea 0RF F17.200 - Nicotine dependence, unspecified, uncomplicated gabapentin 100 mg PO BEDTIME 30 caps 0RF S32.010A - Wedge compression fracture of first lumbar vertebra, initial encounter for closed fracture Discontinued polyethylene glycol 3350 Discontinued Reason: Patient Completed Course 17 grams PO DAILY 30 ea 0RF tizanidine Discontinued Reason: Patient Completed Course 2 mg (1/2 x 4 mg) PO TID 10 tabs 0RF
[2024-10-16 08:09] VITALS: BP 130/100; PULSE 93; RESP 26; TEMP 36.3; O2SAT 99; BMI 16.7
--- OUTSIDE RECORDS SUMMARY | 2024-10-16 08:09 | XMS_ITS | Encounter Summary ---
Author Organization [facility] Address [address] [place] [address] Care Team Providers Care Certified Professional Midwife Name Role Phone Alan Chanel MD Primary Care Provider [phone] Encounter Details Date Type Department Care Team (Late st Contact Info) Description 06/08/2024 Lab Requisition [facility] Lab [address] [place] [address] Kenny Malave MD [address] [facility] [address] [place], [phone] Chronic obstructive pulmonary disease, unspecified (CMS/HCC [...] LAB CHEMISTRY METHOD 06/08/2024 11:51 AM EST [facility] Potassium 5.0 3.5 - 5.5 [...] Final Resul t [facility] [address] [place] [address], * (ABNORMAL) Complete blood count (06/08/2024 7:16 AM EST) [facility] WBC 5.0 4.8 - 10.8 K/mcL LAB [...] LAB HEMETOLOGY METHOD 06/08/2024 10:15 AM EST [facility] Blood Venous blood specimen / Unknown Venipuncture / Unknown 06/08/2024 7:16 AM EST 06/08/2024 9:26 AM EST us Kenny Malave MD LAB BLOOD ORDERABLES Final Resul t [facility] [address] [place] [address], documented in this encounter Visit Diagnoses Diagnosis Chronic obstructive pulmonary disease, unspecified (CMS/HCC V24, CMS/HCC V28) documented in this encounter Care Teams Certified Professional Midwife Relationship Specialty Start Date End Date Alan Chanel MD [address] [place] [address] [address] [place], [place] PCP - General Internal Medicine 03/12/24 documented as of this encounter
== END 2024-10-16 09:29 | disposition home or self-care (01) ==
LOC: HO.HMCH 08:07
PROVIDERS: PCP Internal Medicine; Visit Provider Nurse Practitioner Family
DX: S32.010A Wedge compression fracture of first lumbar vertebra, initial encounter for closed fracture (principal); E22.2 Syndrome of inappropriate secretion of antidiuretic hormone; F17.200 Nicotine dependence, unspecified, uncomplicated

== ENCOUNTER → 2024-10-16 08:06 | Outpatient (BNVA) | payer MEDICARE, MEDICAID, SELFPAY | PROVIDERS: PCP Internal Medicine; Visit Provider Nurse Practitioner Family | DX: E22.2 Syndrome of inappropriate secretion of antidiuretic hormone (principal); S32.010D Wedge compression fracture of first lumbar vertebra, subsequent encounter for fracture with routine healing; F17.200 Nicotine dependence, unspecified, uncomplicated; Z71.6 Tobacco abuse counseling | CPT/HCPCS: 99495 ==

== ENCOUNTER 2024-10-26 09:40 | Outpatient (AMB) | payer MEDICARE, MEDICAID, SELFPAY ==
--- NOTE | 2024-10-26 09:56 | A.SPINEOV_ITS ---
Vital Signs 10/26/24 10:00 Height 5 ft 6.5 in Weight 103 lb BMI 16.4 Intake Visit Reasons: LBP Intake Note: Ms. Aguilar is here today c/o low back pain. 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 She is a pleasant, complicated, 74 year old female who was referred to our office for evaluation of a compression fracture at L1. The patient has a difficult time providing an ac curate history, but did have some assistance by her daughter who accompanied her to the visit today. It sounds like she has had chronic low back pain for many years, but has been experiencing a newer type of back pain for the last 6 months or so. We were able to correlate this with a fall that she had around the new year, when she fractured her left knee. Since then, she has had a new kind of b ack pain. When describing this pain she points directly to her mid lumbar spine. She denies any radiation of symptoms into her lower extremities. She denies any numbness or tingling associated with the pain. She reports that she is still able to ambulate with the assistance of her walker, but can only make it about 50-100ft before she has to stop due to this new back pain she describes. She reports that laying down and resting nearly completely alleviates her pain, and that standing up and walking exacerbates her pain. She denies any cramping pains in her legs with ambulation. She has been actively working with physical therapy, and just completed a session this morning before her visit. She has been attempting to utilize [id number] Tylenol/ibuprofen to help mitigate her pain, alongside prescribed tramadol and gabapentin. She has never had cortisone injections in the spine. PMH: SIADH, hydronephrosis of left kidney, de Quervain tenosynovitis in the left, hearing impairment, bilateral lower extremity paresthesias, osteoporosis, peripheral polyneuropathy, hypercholesterolemia, urinary urgency/incontinence, depression, anxiety, hypertension, COPD, varicose veins of the lower extremities. Hx appendectomy. Hx fall in late 2023 with left knee fracture. Social hx: Patient currently smokes 1.5 packs cigarettes per day. She reports no substance use. Medications: Tylenol, albuterol, aspirin, calcium carbonate, fluticasone, gabapentin, lisinopril, multivitamin, nicotine patches, senna. Allergies: NKDA Physical exam: The patient is thin and moves very slowly. She is unable to rise from a seated position without assistance from her chair / walker. She is not able to get up onto the examination table, so her examination today was performed with her in a chair. She has 4/5 strength with knee flexion / extension, but 5/5 strength elsewhere. She has no significant sensational deficits to light touch in her bilateral lower extremities when compared against one another. Her straight leg raise is (-) bilaterally. No Pfeiffer's. No clonus. Imaging review: MRI of the lumbar spine completed here at [facility] shows diffuse spondylosis of the lumbar spine. There is a compression fracture at L1, which is new since XR imaging from 2023 (not reported on XR lumbar 03/29, but not the ideal test to evaluate this) this is causing what I would call moderate central canal stenosis behind the vertebral body of L1. There is also what appears to be a healed partial compression fracture of L3. Most notably there is a grade 1 spondylolisthesis at L4-5, causing severe central canal and bilateral foraminal stenosis at this level. Impression: Trevon is a pleasant 74-year-old female who was referred to our off ice today for evaluation of her L1 compression fracture. Upon review of her MRI imaging it appears that she also has a grade 1 spondylolisthesis at L4-5 with severe central canal and bilateral foraminal stenosis at this level. Despite this, she has no significant lower extremity symptoms. She reports that she needs to stop walking due to the new pain in her low back, and does not need to stop due to leg pain, cramping, or fatigue. It is probable that she add a new compression fracture occurr when she fell toward the end of 2023. This is causing her significant low back pain that is worsening with movement / ambulation. Given her comorbidities and lack of lower extremity complaints, I think holding off on recommendations regarding anything surgical for this patient would be best. At this time she would be best served via evaluation by our colleagues in pain management to see if they can treat her compression fracture, or at the very least provide pain control for her symptoms. She was advised to return to see us for subsequent evaluation if her pain worsens, or she develops lower extremity radicular symptoms. Thank you for allowing us to care for your patient. The total time spent with this visit with this patient was 45 minutes reviewing history, physical exam, MRI imaging review, and implementation of treatment plan or further diagnostic testing Gerard Irizarry MD,PhD [facility] Orders: Referrals Pain Management Referral S32.000A - Wedge compression fracture of unspecified lumbar vertebra, initial encounter for closed fracture Coding Level of Care Code New Pt Level 4 (21514) Diagnoses Compression fracture of lumbar vertebra S32.000A
[2024-10-26 10:00] VITALS: BMI 16.4
--- OUTSIDE RECORDS SUMMARY | 2024-10-26 10:26 | XMS_ITS | Encounter Summary ---
Author Organization [facility] Address [address] [place] [address] Care Team Providers Care Cylinder Grinder Name Role Phone Alan Chanel MD Primary Care Provider Encounter Details Date Type Department Care Team (Late st Contact Info) Description 06/08/2024 Lab Requisition [facility] Lab [address] [place] [address] Kenny Malave MD 38 [facility] [address] [place], [phone] Chronic obstructive pulmonary disease, unspecified (CMS/HCC [...] LAB CHEMISTRY METHOD 06/08/2024 11:51 AM EST [facility] Potassium 5.0 3.5 - 5.5 mmol/L LAB CHEMISTRY METHOD 06/08/2024 11:51 AM [facility] LAB Comment:Results verified by repeat testing Chloride 102 96 - 110 mmol/L LAB CHEMISTRY METHOD 06/08/2024 11:51 AM [facility] CO2 26 21 - 32 mmol/L LAB CHEMISTRY METHOD 06/08/2024 11:51 AM [facility] Anion Gap 8 3 - 11 LAB CHEMISTRY METHOD 06/08/2024 11:51 AM [facility] Glucose 78 70 - 100 mg/dL LAB CHEMISTRY METHOD 06/08/2024 11:51 AM [facility] BUN 17 5 - 25 mg/dL LAB CHEMISTRY METHOD 06/08/2024 11:51 AM [facility] Creatinine 0.53 0.50 - 1.10 mg/dL LAB CHEMISTRY METHOD 06/08/2024 11:51 AM [facility] LAB eGFR 97 >=60 mL/min/1. 73m2 LAB CHEMISTRY METHOD 06/08/2024 11:51 AM [facility] LAB Comment:Calculation based on the Chronic Kidney Disease Epidemiology Collaboration (CKD-EPI) equation refit without adjustment for race. BUN/Creatinine Ratio 32.1 LAB CHEMISTRY METHOD 06/08/2024 11:51 AM [facility] Calcium 9.6 8.5 - 10.5 mg/dL LAB CHEMISTRY METHOD 06/08/2024 11:51 AM [facility] LAB Blood Venous blood specimen / Unknown Venipuncture / Unknown 06/08/2024 7:16 AM EST 06/08/2024 9:26 AM EST us Kenny Malave MD LAB BLOOD ORDERABLES Final Resul t [facility] [address] [place] [address], * (ABNORMAL) Complete blood count (06/08/2024 7:16 AM EST) [facility] WBC 5.0 4.8 - 10.8 K/mcL LAB HEMETOLOGY METHOD 06/08/2024 10:15 AM [facility] RBC 3.80 3.80 - 4.80 M/mcL LAB HEMETOLOGY METHOD 06/08/2024 10:15 AM [facility] Hemoglobin 10.6(L) 11.5 - 16.0 g/dL LAB HEMETOLOGY METHOD 06/08/2024 10:15 AM [facility] LAB Hematocrit 33.0(L) 35.0 - 47.0 % LAB HEMETOLOGY METHOD 06/08/2024 10:15 AM [facility] MCV 86.4 79.0 - 98.0 FL LAB HEMETOLOGY METHOD 06/08/2024 10:15 AM [facility] MCH 27.7 27.0 - 32.0 pcg LAB HEMETOLOGY METHOD 06/08/2024 10:15 AM [facility] LAB MCHC 32.1 32.0 - 37.0 g/dL LAB HEMETOLOGY METHOD 06/08/2024 10:15 AM [facility] RDW 17.9(H) 11.0 - 15.0 % LAB HEMETOLOGY METHOD 06/08/2024 10:15 AM [facility] Platelets 516(H) 130 - 400 K/mcL LAB HEMETOLOGY METHOD 06/08/2024 10:15 AM [facility] MPV 8.5 7.0 - 11.0 FL LAB HEMETOLOGY METHOD 06/08/2024 10:15 AM [facility] NRBC 0.0 <1.0 % LAB HEMETOLOGY METHOD 06/08/2024 10:15 AM [facility] LAB NRBC Absolute 0.00 <0.10 K/mcL LAB HEMETOLOGY METHOD 06/08/2024 10:15 AM EST [facility] Blood Venous blood specimen / Unknown Venipuncture / Unknown 06/08/2024 7:16 AM EST 06/08/2024 9:26 AM EST us Kenny Malave MD LAB BLOOD ORDERABLES Final Resul t [facility] [address] [place] [address], documented in this encounter Visit Diagnoses Diagnosis Chronic obstructive pulmonary disease, unspecified (CMS/HCC V24, CMS/HCC V28) documented in this encounter Care Teams Cylinder Grinder Relationship Specialty Start Date End Date Alan Chanel MD [address] [place] [address] Dr [address] [place] PCP - General Internal Medicine 03/12/24 documented as of this encounter
== END 2024-10-26 10:50 | disposition home or self-care (01) ==
LOC: HO.HNS 09:41
PROVIDERS: PCP Internal Medicine; Referring Provider Nurse Practitioner Family; Visit Provider Physician Assistant
DX: S32.000A Wedge compression fracture of unspecified lumbar vertebra, initial encounter for closed fracture (principal)
CPT/HCPCS: 99204

== ENCOUNTER → 2024-10-26 09:40 | Outpatient (BNVA) | payer MEDICARE, MEDICAID, SELFPAY | PROVIDERS: PCP Internal Medicine; Referring Provider Nurse Practitioner Family; Visit Provider Physician Assistant | DX: S32.010A Wedge compression fracture of first lumbar vertebra, initial encounter for closed fracture (principal) | CPT/HCPCS: 99202 ==

== ENCOUNTER 2024-11-09 09:38 | Outpatient (AMB) | payer MEDICARE, MEDICAID, SELFPAY ==
[2024-11-09 09:39] VITALS: BP 126/82; PULSE 83; O2SAT 98; BMI 16.4
--- NOTE | 2024-11-09 09:39 | MHC.PC.OV ---
Vital Signs 11/09/24 09:39 Height 5 ft 6 in Weight 101 lb 13.657 oz BMI 16.4 BP 126/82 Blood Pressure Location Lt brachial Position Sitting Pulse 83 Pulse Source Pulse Oximeter Pulse Oximetry (%) 98 Oxygen Delivery Method Room Air Intake Visit Reasons: treatment for her osteoporosis. Education Officer Required: No Accompanied by: Self / Same As Patient Allergies No Known Allergies (No Known Allergies*) Allergy (Verified 11/09/24 09:39) Tobacco use date assessed: 11/09/24 Fall risk assessment: 2 + Falls in past year Last assessed Fall Risk: 11/09/24 Dental Screening Dental Screen Date: 11/09/24 Did you have a dental visit in the last 12 months?: No Did you have a dental problem in the last 6 months where you did not have access to dental care?: No Was dental information given to patient?: No HPI treatment for her osteoporosis. HPI Details Patient comes in today for her follow up visit States that she has been experiencing a significant increase in her low back pain for the past few months A recent lumbar spine MRI done a few weeks ago on 10/01/2024 revealed (+) subacute appearing compression deformities of L1 (severe, with 5 mm retropulsion of bone). There is also (+) moderate central canal stenosis at the L1 level due to retropulsed bone from the vertebral plana deformity. There is no definite impingement of the conus or signal abnormality. (+) 6 mm degenerative anterolisthesis at L4-5 results in severe central canal stenosis and severe bilateral subarticular recess stenosis and moderate central canal stenosis and moderate bilateral subarticular recess stenosis at L5-S1, with moderate to severe left neural foraminal stenosis are also seen She has been referred to the spine center for further evaluation and they recommend pain management evaluation at this time, with no surgical recommendations in the absence of any significant lower extremity complaints Patient is scheduled to be seen by pain management in a couple of days on 11/11/2024 She is currently noted to be very unsteady on her feet when walking and uses her walker when ambulating at all times now Patient also reportedly fell backwards twice recently and admits to experiencing on and off dizziness at times lately She was noted to have very low serum sodium levels on her labs during her recent hospital admission over the past month or so and a diagnosis of SIADH was entertained as a possibility She's had no follow up labs done over the past month She currently denies any headaches Denies any chest pains, no increased SOB No nausea/vomiting, no abdominal pain No change in bowel habits noted COUNTS INCLUDE 234 BEDS AT THE [facility] Medical History Compression fracture of L1 lumbar vertebra SIADH (syndrome of inappropriate ADH production) De Quervain's tenosynovitis, left Arthritis of hand, left, degenerative Hearing impairment Smoker Depression Anxiety Osteoporosis Urinary urgency Urinary incontinence Varicose veins of bilateral lower extremities with pain Peripheral polyneuropathy Pure hypercholesterolemia Anemia Compression fracture of L4 vertebra with routine healing Lumbar degenerative disc disease Benign essential hypertension COPD (chronic obstructive pulmonary disease) Surgical History History of cystoscopy History of bilateral cataract extraction Family History Father No problems noted. Mother Lung cancer Sister Down syndrome Maternal Grandfather Lung cancer Maternal Grandmother Lung cancer Other Hyponatremia Social History Household Members: None Housing: House Do you presently have visiting nurse or other home services: Yes Alcohol intake: never Patient Tobacco Use Status: Former Tobacco user Tobacco use type: Cigarette Cigarette Packs Per Day: 2 Cigarettes Per Day: 40 e-Cigarette/Vaping Use: Never Used Second Hand Smoke Exposure: Yes Advance Directives Date on File: 04/10/24 service: No Current occupational status: retired Cognitive needs: No Hearing needs: Yes Vision needs: Yes (Glasses) Questionnaire PHQ-9 Over the last 2 weeks, how often have you been bothered by any of the following problems? 1. Little interest or pleasure in doing things: not at all 2. Feeling down, depressed, or hopeless: nearly every day 3. Trouble falling or staying asleep, or sleeping too much: not at all 4. Feeling tired or having little energy: several days 5. Poor appetite or overeating: not at all 6. Feeling bad about yourself - or that you are a failure or have let yourself or your family down: not at all 7. Trouble concentrating on things, such as reading the newspaper or watching television: not at all 8. Moving or speaking so slowly that other people could have noticed. Or the opposite - being so fidgety or restless that you have been moving around a lot more than usual: not at all 9. Thoughts that you would be better off or of hurting yourself in some way: not at all Total score: 4 Depression Screening Interpretation: Positive Depression Screening Follow-up: Existing condition and In treatment Depression Screening Done: Yes 35592 - PHQ-9 Billing: Yes Source: Developed by Drs. Rios Hager, Marie Marr, Marcus Moser and colleagues, with an educational felipe from [employer] Thrive Questionnaire Date Thrive assessed: 11/09/24 I am a: Patient What is your living situation today?: I have a steady place to live Within the past 12 months, did the food you bought not last and you didn't have the money to get more?: Never true Within the past 12 months, did you worry whether your food would run out before you got money to buy more?: Never true Do you have trouble paying for medicines?: No Do you have trouble getting transportation to medical appointments?: No Do you have trouble paying your heating and electricity bill?: No Do you have trouble taking care of your child, family member or friend?: No Do you have trouble with day-to-day activities such as bathing, preparing meals, shopping, managing finances, etc.?: No Are you currently unemployed and looking for a job?: No Are you interested in more education?: No Please select the resources that you would like help with: None Currently or been in a relationship where the following occur: No concerns reported THRIVE Score: 0 AUDIT C Alcohol Use Questionnaire (AUDIT-C) 1. How often do you have a drink containing alcohol?: Never 3. How often do you have six or more drinks on one occasion?: Never Total Score: 0 Score Reviewed/Action Taken: No BROOKE-7 AMB Questionnaire BROOKE-7 Date BROOKE - 7 assessed: 11/09/24 Feeling nervous, anxious, or on edge: 0 = Not at all Not being able to stop or control worryin = Not at all Worrying too much about different things: 0 = Not at all Trouble relaxin = Not at all Being so restless that it is hard to sit still: 0 = Not at all Becoming easily annoyed or irritable: 0 = Not at all Feeling afraid as if something awful might happen: 0 = Not at all Total BROOKE-7 score (0-4 normal; 5-9 mild; 10-14 moderate; 15-21 severe): 0 Source: Developed by Drs. Rios Hager, Marie Marr, Marcus Moser and colleagues, with an educational felipe from [employer] Review of Systems Const Denies chills, Reports fatigue, Denies fever(s) and Denies headache(s) ENT Denies dysphagia, Reports dizziness (on and off), Denies otalgia, Denies headache(s), Denies neck pain, Denies odynophagia and Denies sore throat Card Denies chest pain, Denies palpitations and Reports dyspnea on exertion (increasing) Resp Reports chest congestion (on and off but this has improved since she quit smoking months ago), Reports cough (occasional), Denies pain with cough and Reports dyspnea on exertion (increasing) GI Denies abdominal pain, Denies constipation, Denies dysphagia, Denies heartburn, Denies diarrhea, Denies nausea, Denies odynophagia and Denies vomiting Denies difficulty voiding, Reports nocturia, Denies dysuria and Reports urinary incontinence Musc Details: (+) increasing pain over the left heel Reports abnormal gait (very unsteady), Reports back pain (over the lower back, chronic - increased lately), Reports arthralgias (both shoulders, on and off; also increasing pain over left wrist), Denies neck pain and Reports radiating pain into limb (frequent radiation of her back pain down into both legs) Skin/Breast Denies rash Neuro Reports abnormal gait (very unsteady), Reports dizziness (on and off), Denies headache(s) and Reports paresthesias Psych Reports anxiety and Reports depression Endo Reports fatigue and Denies palpitations Physical exam (Primary Care) Vital Signs: Last Vital Signs Pulse 83 11/09/24 09:39 BP 126/82 11/09/24 09:39 Pulse Ox 98 11/09/24 09:39 Oxygen Delivery Method Room Air 11/09/24 09:39 BMI result Body Mass Index 16.4 Tobacco/Smoking Status: Tobacco use Status Tobacco use date assessed 11/09/24 11/09/24 09:49 Patient Tobacco Use Status Former Tobacco user 11/09/24 09:49 Tobacco use type Cigarette 11/09/24 09:49 e-Cigarette/Vaping Use Never Used 11/09/24 09:49 PHQ-9: PHQ-9 Score PHQ-9: Total score 4 11/09/24 09:49 Depression Screening Interpretation: Positive Depression Screening Follow-up: Existing condition and In treatment Thrive Assessment: Date of Thrive Assessment Date Thrive assessed 11/09/24 11/09/24 09:49 Currently or been in a relationship where the following occur: No concerns reported Const General: no acute distress and alert HENMT Ears: TM's normal bilaterally and EAC's normal Throat: Yes posterior oropharynx normal and Yes tonsils normal (no TP congestion noted) Neck Neck: Yes supple and No lymphadenopathy Thyroid: Thyroid normal Resp Auscultation: clear to auscultation bilaterally, no rales, no wheezes and diminished lung sounds (slightly) bilateral Cardio Rate: regular rate Rhythm: regular rhythm Heart sounds: no murmurs GI Palpation (GI): Soft to palpation and nontender Auscultation: normal bowel sounds General: Yes no CVA tenderness Back/Spine/Pelvis Back: no CVA tenderness Thoracic/Lumbar Spine: lumbar spinal tenderness and straight leg raise positive Skin Rashes: no rashes Extrem General: Yes no clubbing, cyanosis or edema Right upper extremity: shoulder/upper arm Details: tenderness and normal ROM Left upper extremity: shoulder/upper arm Details: tenderness and normal ROM, wrist ((+) tenderness) and hand Details: tenderness Location: of the thumb Location: at the MCP joint and swelling Location: of the thumb Location: at the MCP joint Left lower extremity: foot Details: tenderness Location: of the calcaneus Results Reviewed Results Reviewed: Laboratory Tests 10/01/24 10/04/24 05:15 10:30 WBC 4.7 L Hgb 9.7 L Hct 28.2 L Plt Count 307 Sodium 132 L Potassium 3.9 Creatinine 0.70 Estimated GFR > 60 Random Glucose 103 Calcium 10.1 D 25-OH Vitamin D Total 37 Coding Level of Care Code Est Pt Level 4 (08708) Diagnoses Hyponatremia E87.1 Compression fracture of L1 vertebra, initial encounter S32.010A Encounter type: initial encounter Degeneration of intervertebral disc of lumbar region with discogenic back pain and lower extremity pain M51.362 Disc-related pain type: discogenic back pain and lower extremity pain Osteopenia, unspecified location M85.80 Osteopenia location: unspecified Chronic obstructive pulmonary disease, unspecified COPD type J44.9 COPD type: unspecified COPD Benign essential hypertension I10 Pure hypercholesterolemia E78.00 Bilateral lower extremity pain M79.604; M79.605 Paresthesia of both feet R20.2 Anemia, unspecified type D64.9 Anemia type: unspecified type Varicose veins of bilateral lower extremities with pain I83.813 Urinary incontinence, unspecified type R32 Urinary Incontinence type: unspecified incontinence Anxiety F41.9 Additional Codes PHQ-9 - 01016 - PHQ-9 Billing: Yes ([id number]) Assessment & Plan Assessment & Plan (1) Hyponatremia: Code(s): E87.1 - Hypo-osmolality and hyponatremia Category: Medical Plan: Will send patient for some repeat / follow up labs SARAH for further evaluation Discussed with patient the possibility of SIADH as a reason for her recent persistent hyponatremia Will also refer her to nephrology for further evaluation and management (2) Compression fracture of L1 lumbar vertebra: Code(s): S32.010A - Wedge compression fracture of first lumbar vertebra, initial encounter for closed fracture Category: Medical Qualifiers: Encounter type: initial encounter Qualified Code(s): S32.010A - Wedge compression fracture of first lumbar vertebra, initial encounter for closed fracture Plan: Recent lumbar spine MRI done a few weeks ago on 10/01/2024 revealed (+) subacute appearing compression deformities of L1 (severe, with 5 mm retropulsion of bone). There is also (+) moderate central canal stenosis at the L1 level due to retropulsed bone from the vertebral plana deformity She was referred to and seen by neurosurgery and was not recommended for any surgical interventions at this time and was instead referred to pain management, who she will be seeing in a couple of days (3) Lumbar degenerative disc disease: Comment: (+) old wedge compression Fx of L4; new (from 2016) compression deformity at L3 Code(s): M51.36 - Other intervertebral disc degeneration, lumbar region Category: Medical Qualifiers: Disc-related pain type: discogenic back pain and lower extremity pain Qualified Code(s): M51.362 - Other intervertebral disc degeneration, lumbar region with discogenic back pain and lower extremity pain Plan: Reinforced activity and weight-lifting restrictions She will be seeing pain management in a couple of days for further evaluation and recommendations regarding her recent increasing low back pain Continue Acetaminophen 325 mg 2 to 3 tablets Q 6 hours PRN for now (4) Osteopenia: Code(s): M85.80 - Other specified disorders of bone density and structure, unspecified site Category: Medical Qualifiers: Osteopenia location: unspecified Qualified Code(s): M85.80 - Other specified disorders of bone density and structure, unspecified site Plan: Her BMD done in February 2024 revealed (+) osteopenia, with the lowest T-score value of -2.4 in the femoral neck and total femur BMD previously done in 2018 showed (+) osteoporosis with the lowest T-score value of -2.5 in the total femur Patient has been treated with Alendronate since 2012 and this was discontinued after more than 5 years of Tx With her recently discovered L1 vertebral compression fracture, the possibility of Tx again for her osteoporosis was raised Have discussed with patient that I would like to have her hyponatremia worked up and addressed first before we consider starting her again on any potential Rx for osteoporosis (5) COPD (chronic obstructive pulmonary disease): Code(s): J44.9 - Chronic obstructive pulmonary disease, unspecified Category: Medical Qualifiers: COPD type: unspecified COPD Qualified Code(s): J44.9 - Chronic obstructive pulmonary disease, unspecified Plan: PFTs?done back in January 2014 showed (+) moderately severe obstructive lung disease Chest x-rays done back in May 2019 showed (+) lung hyperinflation consistent with COPD, with no acute infiltrates Repeat chest x-rays done in January 2022 showed again (+) hyperinflated lungs reflecting underlying changes of chronic obstructive pulmonary disease, with no acute pulmonary process noted Patient still has frequent exertional dyspnea but this has gotten slightly better since she quit smoking last year She has consistently declined offer to refer her to pulmonary for follow up/further evaluation Continue Ventolin HFA 2 puffs 4 times a day as needed (6) Benign essential hypertension: Code(s): I10 - Essential (primary) hypertension Category: Medical Plan: Reinforced low-sodium diet -? goal is systolic BP of at least 130 to 140 mm or less Continue Lisinopril 5 mg QD (7) Pure hypercholesterolemia: Code(s): E78.00 - Pure hypercholesterolemia, unspecified Category: Medical Plan: Reinforced low cholesterol diet She is reminded that her cholesterol levels remain borderline elevated when they were last checked in May 2023 (8) Bilateral lower extremity pain: Code(s): M79.604 - Pain in right leg; M79.605 - Pain in left leg Category: Medical Plan: EMG & NCV done in 2018 revealed moderately severe axonal sensory and motor chronic peripheral neuropathy and bilateral lower lumbar radiculopathy - she is advised again that this is most likely the main cause of her lower extremity symptoms and of her unsteady gait Continue Gabapentin 100 mg TID (9) Paresthesia of both feet: Code(s): R20.2 - Paresthesia of skin Category: Medical Plan: This is again most likely due to her lower extremity neuropathy Continue Gabapentin 100 mg TID (10) Anemia: Code(s): D64.9 - Anemia, unspecified Category: Medical Qualifiers: Anemia type: unspecified type Qualified Code(s): D64.9 - Anemia, unspecified Plan: H/H was at 9.7/28.2 on her most recent labs done back on 10/01/2024 Will recheck her CBC for follow up (11) Varicose veins of bilateral lower extremities with pain: Code(s): I83.813 - Varicose veins of bilateral lower extremities with pain Category: Medical Plan: Follow with vascular surgery as scheduled -? symptoms have been adequately controlled with the use of support stockings PRN (12) Urinary incontinence: Code(s): R32 - Unspecified urinary incontinence Category: Medical Qualifiers: Urinary Incontinence type: unspecified incontinence Qualified Code(s): R32 - Unspecified urinary incontinence Plan: Patient reportedly wets her bed constantly at night and has increased urinary frequency and some incontinence during the day Suspect that patient has OAB but she also has a history of right hydronephrosis and right UPJ obstruction She was seen by Urology previously and sent for bladder ultrasound and started on a trial of Oxybutynin, which patient states did not help Ultrasound revealed only a small left ureterocele and was otherwise normal Patient does not want to go back to see Dr. Kaplan for Urology follow-up and states that she will call for another referral if she feels that she needs to see Urology again (13) Anxiety: Code(s): F41.9 - Anxiety disorder, unspecified Category: Medical Plan: She was on Doxepin 10 mg once a day at bedtime and Lorazepam 0.5 mg 1 tablet 2 to 3 times a day as needed for increased anxiety previously but has not taken any Rx for anxiety lately Plan Follow up in 3 months Orders: Orders Comprehensive Met. Panel Today E87.1 - Hypo-osmolality and hyponatremia TSH reflex Free T4 Today E78.00 - Pure hypercholesterolemia, unspecified, E87.1 - Hypo-osmolality and hyponatremia Hemoglobin A1c Today E11.9 - Type 2 diabetes mellitus without complications, E87.1 - Hypo-osmolality and hyponatremia Liver Panel Today E87.1 - Hypo-osmolality and hyponatremia, R79.89 - Other specified abnormal findings of blood chemistry IRON PROFILE Today D50.9 - Iron deficiency anemia, unspecified, D64.9 - Anemia, unspecified Vitamin B12 and Folate Today D64.9 - Anemia, unspecified, E53.8 - Deficiency of other specified B group vitamins Erythropoietin (EPO) Today D64.9 - Anemia, unspecified Osmolality, Serum Today E87.1 - Hypo-osmolality and hyponatremia Complete Blood Count Auto Diff Today D64.9 - Anemia, unspecified, E87.1 - Hypo-osmolality and hyponatremia UA CC w/rflx Micro + Cult Today E87.1 - Hypo-osmolality and hyponatremia, R30.0 - Dysuria Referrals Nephrology Referral E87.1 - Hypo-osmolality and hyponatremia
--- OUTSIDE RECORDS SUMMARY | 2024-11-09 10:09 | XMS_ITS | Encounter Summary ---
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 Name Role Phone Alan Chanel MD Primary Care Provider Encounter Details Date Type Department Care Team (Late st Contact Info) Description 06/08/2024 Lab Requisition [facility] [address] [place] [address] Kenny Malave MD [address] [facility] [address] [place], [phone] Chronic obstructive pulmonary disease, unspecified (CMS/HCC [...] LAB CHEMISTRY METHOD 06/08/2024 11:51 AM EST [facility] Potassium 5.0 3.5 - 5.5 mmol/L LAB CHEMISTRY METHOD 06/08/2024 11:51 AM [facility] Comment:Results verified by repeat testing Chloride 102 96 - 110 mmol/L LAB CHEMISTRY METHOD 06/08/2024 11:51 AM [facility] CO2 26 21 [...] AM [facility] Comment:Calculation based on the Chronic Kidney [...] Resul t [facility] [address] [place] [address], * (ABNORMAL) Complete blood count (06/08/2024 7:16 AM EST) [facility] WBC 5.0 4.8 - 10.8 K/mcL LAB [...] METHOD 06/08/2024 10:15 AM [facility] MPV 8.5 7.0 - 11.0 FL LAB HEMETOLOGY METHOD 06/08/2024 10:15 AM [facility] NRBC 0.0 <1.0 % LAB HEMETOLOGY METHOD 06/08/2024 10:15 AM [facility] NRBC Absolute 0.00 <0.10 K/mcL LAB HEMETOLOGY METHOD 06/08/2024 10:15 AM EST [facility] Blood Venous blood specimen / Unknown Venipuncture / Unknown 06/08/2024 7:16 AM EST 06/08/2024 9:26 AM EST us Kenny Malave MD LAB BLOOD ORDERABLES Final Resul t [facility] [address] [place] [address], documented in this encounter Visit Diagnoses Diagnosis Chronic obstructive pulmonary disease, unspecified (CMS/HCC V24, CMS/HCC V28) documented in this encounter Care Teams Brake Operator Heavy Duty Relationship Specialty Start Date End Date Alan Chanel MD [address] [place] [address] Dr [address] [place] PCP - General Internal Medicine 03/12/24 documented as of this encounter
--- OUTSIDE RECORDS SUMMARY | 2024-11-20 20:00 | XMS_ITS | Clinical Summary ---
Author Organization Unknown Care Team Providers Care Content Architect Name Role Phone RALPH MOTA LAUREN Unavailable Carmen juancho BOURNE RN, PAULETTE Unavailable Unavailab reid NEGRETE PT, MARGARITA Unavailable Unavailable MUKUND VOICE NETWORK ENGINEER, [facility] Unavailable Unavailable READING OT, ABIODUN Unavailable Unavailable Payers Payer Name Policy Type Policy Number Effective Date Expira tion Date MEDICARE.[facility].PDGM [id number] Problems Condition Name Condition Details Condition Category Status Onset Date Resolution Date Last Treatment Date Treating Clinician Comments AGE-REL OSTEOPOR W CRNT PATH FX, L LOW LEG, 7THG Active 09-23 00:00: 00 DORSALGIA, UNSPECIFIED Active 09-30 00:00: 00 PYONEPHROSIS Active 09-30 00:00: 00 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 Active 09-30 00:00: 00 COLLAPSED VERT, NEC, LUMBAR REGION, SUBS FOR FX W ROUTN HEAL Active 09-30 00:00: 00 CONSTIPATION , UNSPECIFIED Active 09-30 00:00: 00 OTHER IRON DEFICIENCY ANEMIAS Active 09-30 00:00: 00 VARICOSE VEINS OF BILATERAL LOWER EXTREMITIES WITH PAIN Active 09-30 00:00: 00 OTHER SPECIFIED POLYNEUROPAT HIES Active 09-23 00:00: 00 UNSPECIFIED URINARY INCONTINENCE Active 09-30 00:00: 00 DVRTCLOS OF LG INT W/O PERFORATION OR ABSCESS W/O BLEEDING Active 09-30 00:00: 00 UNSPECIFIED PROTEIN-CHARLEEN NAYLA MALNUTRITION Active 09-23 00:00: 00 EFFUSION, LEFT ANKLE Active 09-23 00:00: 00 ESSENTIAL (PRIMARY) HYPERTENSION Active 09-23 00:00: 00 OTHER SPECIFIED CHRONIC OBSTRUCTIVE PULMONARY DISEASE Active 09-23 00:00: 00 NICOTINE DEPENDENCE, CIGARETTES, UNCOMPLICATE D Active 09-30 00:00: 00 PURE HYPERCHOLEST EROLEMIA, UNSPECIFIED Active 05-06 00:00: 00 HYPOKALEMIA Active 09-23 00:00: 00 CONDUCTIVE HEARING LOSS, BILATERAL Active 09-23 00:00: 00 ANXIETY DISORDER, UNSPECIFIED Active 09-12 00:00: 00 MAJOR DEPRESSIVE DISORDER, RECURRENT, UNSPECIFIED Active 05-06 00:00: 00 OTHER SPECIFIED PERSISTENT MOOD DISORDERS Active 09-23 00:00: 00 HISTORY OF FALLING Active 09-23 00:00: 00 MCFP (CURRENT) USE OF INHALED STEROIDS Active 09-24 00:00: 00 Allergies, Adverse Reactions, Alerts Allergy Name Allergy Type Status Severity Reaction(s) Onset Date Inactive Date Treating Clinician Comments NO KNOWN ALLERGIES Propensity to adverse reactions Active 09-23 14:03: 36 Medications Ordered Medication Name Filled Medication Name Start Date Stop Date Current Medication? Ordering Clinician Indication Dosage Frequency Signature (SIG) Comments Components sertraline 25 mg tablet 09-18 00:00: 00 09-23 00:00 :00 No [id number] Per instruc tions Per instructio ns (route: oral) Med Classific ation: Central Nervous System Agents Breo Ellipta 50 mcg-25 mcg/dose powder for inhalation 09-17 00:00: 00 09-23 00:00 :00 No [id number] Per instruc tions Per instructio ns (route: inhalation ) Med Classific ation: Respirato ry Therapy Agents lisinopril 5 mg tablet 09-09 00:00: 00 09-23 00:00 :00 No [id number] Per instruc tions Per instructio ns (route: oral) Med Classific ation: Cardiovas cular Therapy Agents sertraline 50 mg tablet 09-09 00:00: 00 09-23 00:00 :00 No [id number] Per instruc tions Per instructio ns (route: oral) Med Classific ation: Central Nervous System Agents tramadol 50 mg tablet 09-08 00:00: 00 09-23 00:00 :00 No [id number] Per instruc tions Per instructio ns (route: oral) Med Classific ation: Analgesic , Anti-infl ammatory or Antipyret ic prednisone 10 mg tablet 09-03 00:00: 00 09-23 00:00 :00 No [id number] Per instruc tions Per instructio ns (route: oral) Med Classific ation: Endocrine colchicine 0.6 mg tablet 08-25 00:00: 00 09-23 00:00 :00 No [id number] Per instruc tions Per instructio ns (route: oral) Med Classific ation: Gout and Hyperuric emia Therapy acetaminoph en 500 mg tablet 09-23 00:00: 00 Yes [id number] MILD PAIN/ FEVER 2 tablet EVERY 8 HOURS 2 tablet EVERY 8 HOURS (route: oral) Med Classific ation: Analgesic , Anti-infl ammatory or Antipyret ic aspirin 81 mg tablet,suzanne yed release 09-23 00:00: 00 Yes [id number] PROTECT HEART 1 tablet DAILY 1 tablet DAILY (route: oral) Med Classific ation: Hematolog ical Agents Breo Ellipta 50 mcg-25 mcg/dose powder for inhalation 09-23 00:00: 00 Yes [id number] COPD 1 inhalat ion DAILY 1 inhalation DAILY (route: inhalation ) Med Classific ation: Respirato ry Therapy Agents Calcium 600 + Minerals 600 mg (as carbonate)- 200 unit tablet 09-23 00:00: 00 Yes [id number] SUPPLEMENT 1 tablet DAILY 1 tablet DAILY (route: oral) Med Classific ation: Electroly te Balance-N utritiona l Products lisinopril 5 mg tablet 09-23 00:00: 00 Yes [id number] HIGH BLOOD PRESSURE 1 tablet DAILY 1 tablet DAILY (route: oral) Med Classific ation: Cardiovas cular Therapy Agents Multi For Her 50 Plus 400 mcg-80 mcg capsule 09-23 00:00: 00 Yes [id number] SUPPLEMENT 1 capsule DAILY 1 capsule DAILY (route: oral) Med Classific ation: Electroly te Balance-N utritiona l Products naproxen 500 mg tablet 09-23 00:00: 00 Yes [id number] PAIN 1 tablet 2 TIMES DAILY 1 tablet 2 TIMES DAILY (route: oral) Med Classific ation: Analgesic , Anti-infl ammatory or Antipyret ic sertraline 25 mg tablet 09-23 00:00: 00 Yes [id number] SADNESS 1 tablet DAILY 1 tablet DAILY (route: oral) Med Classific ation: Central Nervous System Agents Ventolin HFA 90 mcg/actuati on aerosol inhaler 09-23 00:00: 00 Yes [id number] WHEEZE/SHOR TNESS OF BREATH 1 puff EVERY 4 HOURS 1 puff EVERY 4 HOURS (route: inhalation ) Med Classific ation: Respirato ry Therapy Agents vitamin E 268 mg (400 unit) capsule 09-23 00:00: 00 Yes [id number] SUPPLEMENT 1 capsule DAILY 1 capsule DAILY (route: oral) Med Classific ation: Electroly te Balance-N utritiona l Products oxycodone 5 mg tablet 10-06 00:00: 00 10-21 23:59 :00 No [id number] PAIN 1 tablet EVERY 6 HOURS 1 tablet EVERY 6 HOURS (route: oral) Med Classific ation: Analgesic , Anti-infl ammatory or Antipyret ic tizanidine 4 mg tablet 10-04 00:00: 00 Yes [id number] MUSCLE SPASMS .5 tablet 3 TIMES DAILY .5 tablet 3 TIMES DAILY (route: oral) Med Classific ation: Locomotor System gabapentin 100 mg capsule 10-21 00:00: 00 Yes [id number] PAIN 2 capsule BEDTIME 2 capsule BEDTIME (route: oral) Med Classific ation: Central Nervous System Agents Senna Plus 8.6 mg-50 mg tablet 10-21 00:00: 00 Yes [id number] CONSTIPATIO N 2 tablet BEDTIME 2 tablet BEDTIME (route: oral) Med Classific ation: Gastroint estinal Therapy Agents tramadol 50 mg tablet 10-21 00:00: 00 Yes [id number] PAIN 1-6 2 tablet EVERY 6 HOURS 2 tablet EVERY 6 HOURS (route: oral) Med Classific ation: Analgesic , Anti-infl ammatory or Antipyret ic nicotine 14 mg/24 hr daily transdermal patch 10-30 00:00: 00 Yes [id number] CIGARETTE CESSATION 1 patch, transde rmal 24 hours DAILY 1 patch, transderma l 24 hours DAILY (route: transderma l) Med Classific ation: Chemical Dependenc y, Agents to Treat Vital Signs Vital Name Observation Time Observation Value Commen ts Temperature 2024-11-03 09:22:00.000 97.7 [degF] Temperature 2024-11-02 08:34:00.000 97.3 [degF] Temperature 2024-11-02 08:21:00.000 97.3 [degF] Temperature 2024-10-29 08:27:00.000 98.3 [degF] Temperature 2024-10-27 08:51:00.000 97.3 [degF] Temperature 2024-10-26 12:02:00.000 97.3 [degF] Temperature 2024-10-26 08:55:00.000 98.3 [degF] Temperature 2024-10-21 08:45:00.000 98 [degF] Temperature 2024-10-20 08:43:00.000 97.8 [degF] Temperature 2024-10-19 11:22:00.000 96.4 [degF] Temperature 2024-10-19 08:54:00.000 98.6 [degF] Temperature 2024-10-12 13:19:00.000 97.9 [degF] Temperature 2024-10-12 08:49:00.000 99.2 [degF] Temperature 2024-10-12 08:47:00.000 99.2 [degF] Temperature 2024-10-09 08:56:00.000 98.3 [degF] Temperature 2024-10-06 12:58:00.000 98.3 [degF] Temperature 2024-09-30 10:50:00.000 98.4 [degF] Temperature 2024-09-30 08:35:00.000 97.1 [degF] Temperature 2024-09-29 09:19:00.000 98.1 [degF] Temperature 2024-09-25 09:10:00.000 97.9 [degF] Temperature 2024-09-25 09:07:00.000 97.9 [degF] Temperature 2024-09-23 14:49:00.000 98 [degF] BMI (%) 2024-10-06 12:42:14.000 18 kg/m2 BMI (%) 2024-09-23 14:14:47.000 18 kg/m2 Height 2024-10-06 12:42:04.000 66 [in_us] Height 2024-09-23 14:14:42.000 66 [in_us] Pulse 2024-11-03 09:22:00.000 92 /min Pulse 2024-11-02 08:34:00.000 83 /min Pulse 2024-11-02 08:21:00.000 83 /min Pulse 2024-10-29 08:27:00.000 80 /min Pulse 2024-10-27 08:51:00.000 78 /min Pulse 2024-10-26 12:02:00.000 93 /min Pulse 2024-10-26 08:55:00.000 70 /min Pulse 2024-10-21 08:45:00.000 83 /min Pulse 2024-10-20 08:43:00.000 88 /min Pulse 2024-10-19 11:22:00.000 85 /min Pulse 2024-10-19 08:54:00.000 82 /min Pulse 2024-10-12 13:19:00.000 88 /min Pulse 2024-10-12 08:49:00.000 66 /min Pulse 2024-10-12 08:47:00.000 66 /min Pulse 2024-10-09 08:56:00.000 88 /min Pulse 2024-10-06 12:58:00.000 80 /min Pulse 2024-09-30 10:50:00.000 96 /min Pulse 2024-09-30 08:35:00.000 98 /min Pulse 2024-09-29 09:19:00.000 88 /min Pulse 2024-09-25 09:10:00.000 74 /min Pulse 2024-09-25 09:07:00.000 74 /min Pulse 2024-09-23 14:49:00.000 82 /min O2 Saturation (%) 2024-11-03 09:22:00.000 95 % O2 Saturation (%) 2024-11-02 09:03:00.000 96 % O2 Saturation (%) 2024-11-02 08:34:00.000 97 % O2 Saturation (%) 2024-10-29 08:27:00.000 98 % O2 Saturation (%) 2024-10-27 08:51:00.000 98 % O2 Saturation (%) 2024-10-26 12:02:00.000 97 % O2 Saturation (%) 2024-10-21 08:45:00.000 96 % O2 Saturation (%) 2024-10-20 08:43:00.000 98 % O2 Saturation (%) 2024-10-19 11:22:00.000 97 % O2 Saturation (%) 2024-10-19 09:15:00.000 99 % O2 Saturation (%) 2024-10-19 08:54:00.000 98 % O2 Saturation (%) 2024-10-12 13:19:00.000 96 % O2 Saturation (%) 2024-10-12 09:26:00.000 96 % O2 Saturation (%) 2024-10-12 08:49:00.000 99 % O2 Saturation (%) 2024-10-12 08:47:00.000 99 % O2 Saturation (%) 2024-10-09 09:05:00.000 96 % O2 Saturation (%) 2024-10-09 08:56:00.000 97 % O2 Saturation (%) 2024-10-06 12:58:00.000 98 % O2 Saturation (%) 2024-09-30 10:50:00.000 98 % O2 Saturation (%) 2024-09-30 08:35:00.000 100 % O2 Saturation (%) 2024-09-29 09:20:00.000 99 % O2 Saturation (%) 2024-09-25 09:10:00.000 100 % O2 Saturation (%) 2024-09-25 09:07:00.000 100 % O2 Saturation (%) 2024-09-23 14:49:00.000 99 % Respirations 2024-11-03 09:22:00.000 18 /min Respirations 2024-11-02 08:34:00.000 18 /min Respirations 2024-11-02 08:21:00.000 18 /min Respirations 2024-10-29 08:27:00.000 18 /min Respirations 2024-10-27 08:51:00.000 16 /min Respirations 2024-10-26 12:02:00.000 20 /min Respirations 2024-10-26 08:55:00.000 20 /min Respirations 2024-10-21 08:45:00.000 20 /min Respirations 2024-10-20 08:43:00.000 16 /min Respirations 2024-10-19 11:22:00.000 18 /min Respirations 2024-10-19 08:54:00.000 18 /min Respirations 2024-10-12 13:19:00.000 20 /min Respirations 2024-10-12 08:49:00.000 18 /min Respirations 2024-10-12 08:47:00.000 18 /min Respirations 2024-10-09 08:56:00.000 18 /min Respirations 2024-10-06 12:58:00.000 18 /min Respirations 2024-09-30 10:50:00.000 18 /min Respirations 2024-09-30 08:35:00.000 18 /min Respirations 2024-09-29 09:19:00.000 18 /min Respirations 2024-09-25 09:10:00.000 18 /min Respirations 2024-09-25 09:07:00.000 18 /min Respirations 2024-09-23 14:49:00.000 18 /min Weight (lbs) 2024-11-02 08:21:00.000 100 [lb_av] Weight (lbs) 2024-10-12 13:19:00.000 104 [lb_av] Weight (lbs) 2024-10-06 12:42:14.000 115.2 [lb_av] Weight (lbs) 2024-09-29 09:20:00.000 115.2 [lb_av] Weight (lbs) 2024-09-23 14:14:47.000 115 [lb_av] Systolic Blood Pressure 2024-11-03 09:22:00.000 132 mm [Hg] Systolic Blood Pressure 2024-11-02 08:34:00.000 115 mm [Hg] Systolic Blood Pressure 2024-11-02 08:21:00.000 115 mm [Hg] Systolic Blood Pressure 2024-10-29 08:27:00.000 138 mm [Hg] Systolic Blood Pressure 2024-10-27 08:51:00.000 102 mm [Hg] Systolic Blood Pressure 2024-10-26 12:02:00.000 122 mm [Hg] Systolic Blood Pressure 2024-10-26 08:55:00.000 140 mm [Hg] Systolic Blood Pressure 2024-10-21 08:45:00.000 110 mm [Hg] Systolic Blood Pressure 2024-10-20 08:43:00.000 110 mm [Hg] Systolic Blood Pressure 2024-10-19 11:22:00.000 105 mm [Hg] Systolic Blood Pressure 2024-10-19 08:54:00.000 130 mm [Hg] Systolic Blood Pressure 2024-10-12 13:19:00.000 100 mm [Hg] Systolic Blood Pressure 2024-10-12 08:49:00.000 122 mm [Hg] Systolic Blood Pressure 2024-10-12 08:47:00.000 122 mm [Hg] Systolic Blood Pressure 2024-10-09 08:56:00.000 100 mm [Hg] Systolic Blood Pressure 2024-10-06 12:58:00.000 126 mm [Hg] Systolic Blood Pressure 2024-09-30 10:50:00.000 140 mm [Hg] Systolic Blood Pressure 2024-09-30 08:35:00.000 150 mm [Hg] Systolic Blood Pressure 2024-09-29 09:19:00.000 142 mm [Hg] Systolic Blood Pressure 2024-09-25 09:10:00.000 102 mm [Hg] Systolic Blood Pressure 2024-09-25 09:07:00.000 102 mm [Hg] Systolic Blood Pressure 2024-09-23 14:49:00.000 108 mm [Hg] Diastolic Blood Pressure 2024-11-03 09:22:00.000 64 mm [Hg] Diastolic Blood Pressure 2024-11-02 08:34:00.000 70 mm [Hg] Diastolic Blood Pressure 2024-11-02 08:21:00.000 70 mm [Hg] Diastolic Blood Pressure 2024-10-29 08:27:00.000 78 mm [Hg] Diastolic Blood Pressure 2024-10-27 08:51:00.000 78 mm [Hg] Diastolic Blood Pressure 2024-10-26 12:02:00.000 60 mm [Hg] Diastolic Blood Pressure 2024-10-26 08:55:00.000 88 mm [Hg] Diastolic Blood Pressure 2024-10-21 08:45:00.000 70 mm [Hg] Diastolic Blood Pressure 2024-10-20 08:43:00.000 70 mm [Hg] Diastolic Blood Pressure 2024-10-19 11:22:00.000 65 mm [Hg] Diastolic Blood Pressure 2024-10-19 08:54:00.000 75 mm [Hg] Diastolic Blood Pressure 2024-10-12 13:19:00.000 54 mm [Hg] Diastolic Blood Pressure 2024-10-12 08:49:00.000 78 mm [Hg] Diastolic Blood Pressure 2024-10-12 08:47:00.000 78 mm [Hg] Diastolic Blood Pressure 2024-10-09 08:56:00.000 60 mm [Hg] Diastolic Blood Pressure 2024-10-06 12:58:00.000 56 mm [Hg] Diastolic Blood Pressure 2024-09-30 10:50:00.000 90 mm [Hg] Diastolic Blood Pressure 2024-09-30 08:35:00.000 80 mm [Hg] Diastolic Blood Pressure 2024-09-29 09:19:00.000 72 mm [Hg] Diastolic Blood Pressure 2024-09-25 09:10:00.000 60 mm [Hg] Diastolic Blood Pressure 2024-09-25 09:07:00.000 60 mm [Hg] Diastolic Blood Pressure 2024-09-23 14:49:00.000 80 mm [Hg] Plan of Treatment Planned Activity Planned Date Details Comments Future Scheduled Test RN TO OBSE RVE, ASSESS, EVALUATE, AND DEVELOP AN INDIVIDUALIZED PLAN OF CARE. AGENCY MAY ACCEPT ORDERS FROM CONSULTING PHYSICIANS. RN TO OBSERVE AND ASSESS, FRONT OFFICE REPRESENTATIVE/SWEEP MOLDER TO OBSERVE FOR RISK FOR FALLS AND INSTRUCT IN FALL PREVENTION, HOME SAFETY, MEDICATION MANAGEMENT, INFECTION PREVENTION, AND NUTRITION MANAGEMENT. RN/FRONT OFFICE REPRESENTATIVE/SWEEP MOLDER NURSE MAY PERFORM O2 SATURATION LEVEL ON ADMISSION AND PRN FOR RN TO ASSESS/FRONT OFFICE REPRESENTATIVE TO OBSERVE PATIENT, WITH NOTIFICATION TO THE PHYSICIAN IF SATURATION IS 90% IN THE ABSENCE OF MORE SPECIFIC PARAMETERS FROM THE PHYSICIAN. AGENCY MAY PERFORM A RESUMPTION OF CARE VISIT FOLLOWING ANY HOSPITAL ADMISSION. RN/FRONT OFFICE REPRESENTATIVE/SWEEP MOLDER TO MONITOR CO-MORBID CONDITIONS LISTED ON THE PLAN OF CARE AND ANY NEW CONDITIONS THAT PRESENT THEMSELVES DURING THIS EPISODE TO IDENTIFY CHANGES AND INTERVENE TO MINIMIZE COMPLICATIONS. [code = RN TO OBSERVE, ASSESS, EVALUATE, AND DEVELOP AN INDIVIDUALIZED PLAN OF CARE. AGENCY MAY ACCEPT ORDERS FROM CONSULTING PHYSICIANS. RN TO OBSERVE AND ASSESS, FRONT OFFICE REPRESENTATIVE/SWEEP MOLDER TO OBSERVE FOR RISK FOR FALLS AND INSTRUCT IN FALL PREVENTION, HOME SAFETY, MEDICATION MANAGEMENT, INFECTION PREVENTION, AND NUTRITION MANAGEMENT. RN/FRONT OFFICE REPRESENTATIVE/SWEEP MOLDER NURSE MAY PERFORM O2 SATURATION LEVEL ON ADMISSION AND PRN FOR RN TO ASSESS/FRONT OFFICE REPRESENTATIVE TO OBSERVE PATIENT, WITH NOTIFICATION TO THE PHYSICIAN IF SATURATION IS 90% IN THE ABSENCE OF MORE SPECIFIC PARAMETERS FROM THE PHYSICIAN. AGENCY MAY PERFORM A RESUMPTION OF CARE VISIT FOLLOWING ANY HOSPITAL ADMISSION. RN/FRONT OFFICE REPRESENTATIVE/SWEEP MOLDER TO MONITOR CO-MORBID CONDITIONS LISTED ON THE PLAN OF CARE AND ANY NEW CONDITIONS THAT PRESENT THEMSELVES DURING THIS EPISODE TO IDENTIFY CHANGES AND INTERVENE TO MINIMIZE COMPLICATIONS.] Future Scheduled Test MEDICATION MANAGEMENT; RN/FRONT OFFICE REPRESENTATIVE/SWEEP MOLDER TO REVIEW MEDICATIONS FOR INTERACTIONS, EFFECTIVENESS OF DRUG THERAPY, AND SIGNS/SYMPTOMS OF ADVERSE REACTIONS. MAY INSTRUCT AND REINFORCE MEDICATION TEACHING RELATED TO THE USE OF MEDICATIONS, DOSAGE, FREQUENCY, PURPOSE, SIDE EFFECTS, AND TO REPORT COMPLICATIONS. [code = MEDICATION MANAGEMENT; RN/FRONT OFFICE REPRESENTATIVE/SWEEP MOLDER TO REVIEW MEDICATIONS FOR INTERACTIONS, EFFECTIVENESS OF DRUG THERAPY, AND SIGNS/SYMPTOMS OF ADVERSE REACTIONS. MAY INSTRUCT AND REINFORCE MEDICATION TEACHING RELATED TO THE USE OF MEDICATIONS, DOSAGE, FREQUENCY, PURPOSE, SIDE EFFECTS, AND TO REPORT COMPLICATIONS.] Future Scheduled Test RISK FOR H OSPITALIZATION; RN TO ASSESS/TEACH, SWEEP MOLDER/FRONT OFFICE REPRESENTATIVE TO OBSERVE/TEACH PATIENT/CAREGIVER ON RISK FOR HOSPITALIZATION/EMERGENCY ROOM VISITS, TEACH SIGNS AND SYMPTOMS THAT PUT PATIENT AT RISK, WHEN TO NOTIFY NURSE/PHYSICIAN OF COMPLICATIONS/DECLINE, AND WHEN TO CALL 911. [code = RISK FOR HOSPITALIZATION; RN TO ASSESS/TEACH, SWEEP MOLDER/FRONT OFFICE REPRESENTATIVE TO OBSERVE/TEACH PATIENT/CAREGIVER ON RISK FOR HOSPITALIZATION/EMERGENCY ROOM VISITS, TEACH SIGNS AND SYMPTOMS THAT PUT PATIENT AT RISK, WHEN TO NOTIFY NURSE/PHYSICIAN OF COMPLICATIONS/DECLINE, AND WHEN TO CALL 911.] Future Scheduled Test CARDIOVASC ULAR SYSTEM; RN TO ASSESS/TEACH, FRONT OFFICE REPRESENTATIVE/SWEEP MOLDER TO OBSERVE/TEACH RELATED TO ALTERED CARDIOVASCULAR STATUS TO MINIMIZE COMPLICATIONS AND REDUCE HOSPITALIZATION. [code = CARDIOVASCULAR SYSTEM; RN TO ASSESS/TEACH, FRONT OFFICE REPRESENTATIVE/SWEEP MOLDER TO OBSERVE/TEACH RELATED TO ALTERED CARDIOVASCULAR STATUS TO MINIMIZE COMPLICATIONS AND REDUCE HOSPITALIZATION.] Future Scheduled Test HYPERTENSI ON MANAGEMENT; RN TO ASSESS AND TEACH, FRONT OFFICE REPRESENTATIVE/SWEEP MOLDER TO OBSERVE AND TEACH WARNING SIGNS AND SYMPTOMS TO AVOID HOSPITALIZATION. [code = HYPERTENSION MANAGEMENT; RN TO ASSESS AND TEACH, FRONT OFFICE REPRESENTATIVE/SWEEP MOLDER TO OBSERVE AND TEACH WARNING SIGNS AND SYMPTOMS TO AVOID HOSPITALIZATION.] Future Scheduled Test RESPIRATOR Y SYSTEM MANAGEMENT; RN TO ASSESS AND TEACH, FRONT OFFICE REPRESENTATIVE/SWEEP MOLDER TO OBSERVE AND TEACH RELATED TO ALTERED RESPIRATORY STATUS TO MINIMIZE COMPLICATIONS AND REDUCE HOSPITALIZATION. [code = RESPIRATORY SYSTEM MANAGEMENT; RN TO ASSESS AND TEACH, FRONT OFFICE REPRESENTATIVE/SWEEP MOLDER TO OBSERVE AND TEACH RELATED TO ALTERED RESPIRATORY STATUS TO MINIMIZE COMPLICATIONS AND REDUCE HOSPITALIZATION.] Future Scheduled Test COPD MANAG EMENT; RN TO ASSESS AND TEACH, FRONT OFFICE REPRESENTATIVE/SWEEP MOLDER TO OBSERVE AND TEACH SIGNS/SYMPTOMS OF COPD EXACERBATION AND PROVIDE EARLY INTERVENTIONS TO MINIMIZE RISK OF HOSPITALIZATION. RN/FRONT OFFICE REPRESENTATIVE/SWEEP MOLDER TO INSTRUCT ON SELF-CARE MANAGEMENT INCLUDING BREATHING TECHNIQUES, AIRWAY CLEARANCE, AND PROPER USE OF COPD MEDICATIONS. RN TO ASSESS AND TEACH, FRONT OFFICE REPRESENTATIVE/SWEEP MOLDER TO OBSERVE AND TEACH PATIENT/CAREGIVER ABILITY TO MONITOR AND RECORD VITAL SIGNS INCLUDING PULSE OXIMETRY AND BLOOD PRESSURE. [code = COPD MANAGEMENT; RN TO ASSESS AND TEACH, FRONT OFFICE REPRESENTATIVE/SWEEP MOLDER TO OBSERVE AND TEACH SIGNS/SYMPTOMS OF COPD EXACERBATION AND PROVIDE EARLY INTERVENTIONS TO MINIMIZE RISK OF HOSPITALIZATION. RN/FRONT OFFICE REPRESENTATIVE/SWEEP MOLDER TO INSTRUCT ON SELF-CARE MANAGEMENT INCLUDING BREATHING TECHNIQUES, AIRWAY CLEARANCE, AND PROPER USE OF COPD MEDICATIONS. RN TO ASSESS AND TEACH, FRONT OFFICE REPRESENTATIVE/SWEEP MOLDER TO OBSERVE AND TEACH PATIENT/CAREGIVER ABILITY TO MONITOR AND RECORD VITAL SIGNS INCLUDING PULSE OXIMETRY AND BLOOD PRESSURE. ] Future Scheduled Test SKIN INTEG RITY RN TO ASSESS AND TEACH, FRONT OFFICE REPRESENTATIVE/SWEEP MOLDER TO OBSERVE AND TEACH INTEGUMENTARY STATUS TO IDENTIFY CHANGES AND INTERVENE TO MINIMIZE COMPLICATIONS. PROVIDE SKILLED TEACHING OF GENERAL WOUND AND SKIN CARE AND PREVENTION RELATED TO ACTUAL ALTERED SKIN INTEGRITY [code = SKIN INTEGRITY RN TO ASSESS AND TEACH, FRONT OFFICE REPRESENTATIVE/SWEEP MOLDER TO OBSERVE AND TEACH INTEGUMENTARY STATUS TO IDENTIFY CHANGES AND INTERVENE TO MINIMIZE COMPLICATIONS. PROVIDE SKILLED TEACHING OF GENERAL WOUND AND SKIN CARE AND PREVENTION RELATED TO ACTUAL ALTERED SKIN INTEGRITY ] Future Scheduled Test PAIN MANAG EMENT; RN TO ASSESS AND TEACH, SWEEP MOLDER/FRONT OFFICE REPRESENTATIVE TO OBSERVE AND TEACH AND PROVIDE EDUCATION ON PAIN MANAGEMENT TECHNIQUES. [code = PAIN MANAGEMENT; RN TO ASSESS AND TEACH, SWEEP MOLDER/FRONT OFFICE REPRESENTATIVE TO OBSERVE AND TEACH AND PROVIDE EDUCATION ON PAIN MANAGEMENT TECHNIQUES.] Future Scheduled Test FALL REDUC TION MANAGEMENT; RN TO ASSESS AND OBSERVE, FRONT OFFICE REPRESENTATIVE/SWEEP MOLDER TO OBSERVE FALL RISK FACTORS AND EDUCATE PATIENT/CAREGIVER ON STRATEGIES TO MINIMIZE THE RISK OF FALLING. [code = FALL REDUCTION MANAGEMENT; RN TO ASSESS AND OBSERVE, FRONT OFFICE REPRESENTATIVE/SWEEP MOLDER TO OBSERVE FALL RISK FACTORS AND EDUCATE PATIENT/CAREGIVER ON STRATEGIES TO MINIMIZE THE RISK OF FALLING.] Future Scheduled Test OCCUPATION AL THERAPIST TO EVALUATE FOR ADLS [code = OCCUPATIONAL THERAPIST TO EVALUATE FOR ADLS] Future Scheduled Test MALNUTRITI ON MANAGEMENT; RN TO ASSESS AND TEACH, SWEEP MOLDER/FRONT OFFICE REPRESENTATIVE TO OBSERVE AND TEACH AND INSTRUCT PATIENT / CAREGIVER ON INTERVENTIONS TO IMPROVE NUTRITIONAL INTAKE AND PATIENT WELLBEING. [code = MALNUTRITION MANAGEMENT; RN TO ASSESS AND TEACH, SWEEP MOLDER/FRONT OFFICE REPRESENTATIVE TO OBSERVE AND TEACH AND INSTRUCT PATIENT / CAREGIVER ON INTERVENTIONS TO IMPROVE NUTRITIONAL INTAKE AND PATIENT WELLBEING.] Future Scheduled Test AGENCY MAY PERFORM A RESUMPTION OF CARE VISIT FOLLOWING ANY HOSPITAL ADMISSION. PT TO EVALUATE, OBSERVE / ASSESS, AND MONITOR, VOICE NETWORK ENGINEER TO OBSERVE AND MONITOR, PROVIDE SKILLED THERAPEUTIC INTERVENTION, ACTIVITY, EDUCATION, AND TRAINING TO ADDRESS; PT/VOICE NETWORK ENGINEER TO PROVIDE GAIT TRAINING FOR IMPROVED MOBILITY AND /OR TO NORMALIZE GAIT PATTERN NEUROMUSCULAR RE-EDUCATION / BALANCE / POSTURAL CONTROL (PT) THERAPEUTIC EXERCISES AND ESTABLISHING A HOME EXERCISE PROGRAM (PT/VOICE NETWORK ENGINEER) PT/VOICE NETWORK ENGINEER TO PROVIDE STAIR TRAINING SIT TO/FROM STAND TRANSFERS (PT/VOICE NETWORK ENGINEER) PT TO ASSESS / VOICE NETWORK ENGINEER TO MONITOR FOR AND REPORT EARLY SIGNS OF ANTICOAGULANT TOXICITY TO THE PHYSICIAN AND/OR THE RN CLINICAL TOBACCO SIZER FOR PHYSICIAN NOTIFICATION AND TO PROVIDE PATIENT/CAREGIVER EDUCATION ON ANTICOAGULANT THERAPY PT / VOICE NETWORK ENGINEER TO MONITOR AND EDUCATE ON OXYGEN SATURATION DURING ADLS/IADLS, NOTIFY PHYSICIAN AND/OR THE RN CLINICAL TOBACCO SIZER FOR PHYSICIAN NOTIFICATION AND IF O2 SATS BELOW PHYSICIAN ORDERED PARAMETERS AFTER 10 MIN OF REST PT / VOICE NETWORK ENGINEER MAY EDUCATE ON PAIN MANAGEMENT CLINICALLY INDICATED, INCLUDING NON-PHARMACOLOGICAL PAIN REDUCTION TECHNIQUES AND USE OF CRYOTHERAPY OR HEAT UP TO 20 MIN AT A TIME FOR PAIN MANAGEMENT 3 TIMES PER DAY TO LEFT KNEE PT TO ASSESS / VOICE NETWORK ENGINEER TO MONITOR CARDIO/RESPIRATORY SYSTEM; AND NOTIFY THE PHYSICIAN AND/OR THE RN CLINICAL TOBACCO SIZER FOR PHYSICIAN NOTIFICATION FOR EARLY SIGNS AND SYMPTOMS OF EXACERBATION OR DETERIORATION. PT/VOICE NETWORK ENGINEER TO IDENTIFY FALL RISK FACTORS; EDUCATE THE PATIENT/CAREGIVER ON WAYS TO REDUCE FALL RISK FACTORS AND ESTABLISH HOME EXERCISE PROGRAM TO MINIMIZE FALL RISK. MAY TEACH THE PATIENT FLOOR RECOVERY WHEN CLINICALLY APPROPRIATE [code = AGENCY MAY PERFORM A RESUMPTION OF CARE VISIT FOLLOWING ANY HOSPITAL ADMISSION. PT TO EVALUATE, OBSERVE / ASSESS, AND MONITOR, VOICE NETWORK ENGINEER TO OBSERVE AND MONITOR, PROVIDE SKILLED THERAPEUTIC INTERVENTION, ACTIVITY, EDUCATION, AND TRAINING TO ADDRESS; PT/VOICE NETWORK ENGINEER TO PROVIDE GAIT TRAINING FOR IMPROVED MOBILITY AND /OR TO NORMALIZE GAIT PATTERN NEUROMUSCULAR RE-EDUCATION / BALANCE / POSTURAL CONTROL (PT) THERAPEUTIC EXERCISES AND ESTABLISHING A HOME EXERCISE PROGRAM (PT/VOICE NETWORK ENGINEER) PT/VOICE NETWORK ENGINEER TO PROVIDE STAIR TRAINING SIT TO/FROM STAND TRANSFERS (PT/VOICE NETWORK ENGINEER) PT TO ASSESS / VOICE NETWORK ENGINEER TO MONITOR FOR AND REPORT EARLY SIGNS OF ANTICOAGULANT TOXICITY TO THE PHYSICIAN AND/OR THE RN CLINICAL TOBACCO SIZER FOR PHYSICIAN NOTIFICATION AND TO PROVIDE PATIENT/CAREGIVER EDUCATION ON ANTICOAGULANT THERAPY PT / VOICE NETWORK ENGINEER TO MONITOR AND EDUCATE ON OXYGEN SATURATION DURING ADLS/IADLS, NOTIFY PHYSICIAN AND/OR THE RN CLINICAL TOBACCO SIZER FOR PHYSICIAN NOTIFICATION AND IF O2 SATS BELOW PHYSICIAN ORDERED PARAMETERS AFTER 10 MIN OF REST PT / VOICE NETWORK ENGINEER MAY EDUCATE ON PAIN MANAGEMENT CLINICALLY INDICATED, INCLUDING NON-PHARMACOLOGICAL PAIN REDUCTION TECHNIQUES AND USE OF CRYOTHERAPY OR HEAT UP TO 20 MIN AT A TIME FOR PAIN MANAGEMENT 3 TIMES PER DAY TO LEFT KNEE PT TO ASSESS / VOICE NETWORK ENGINEER TO MONITOR CARDIO/RESPIRATORY SYSTEM; AND NOTIFY THE PHYSICIAN AND/OR THE RN CLINICAL TOBACCO SIZER FOR PHYSICIAN NOTIFICATION FOR EARLY SIGNS AND SYMPTOMS OF EXACERBATION OR DETERIORATION. PT/VOICE NETWORK ENGINEER TO IDENTIFY FALL RISK FACTORS; EDUCATE THE PATIENT/CAREGIVER ON WAYS TO REDUCE FALL RISK FACTORS AND ESTABLISH HOME EXERCISE PROGRAM TO MINIMIZE FALL RISK. MAY TEACH THE PATIENT FLOOR RECOVERY WHEN CLINICALLY APPROPRIATE] Goal 2024-10-06 Patient Goal - T O GET STRONGER, GET BACK TO WALKING WITHOUT WALKER, BACK TO BASELINE Goal Patient Goal - T O GET STRONGER, GET BACK TO WALKING WITHOUT WALKER, BACK TO BASELINE Goal Provider Goal - A PLAN OF CARE WILL BE ESTABLISHED THAT MEETS THE PATIENTS NEEDS. PATIENT WILL DEMONSTRATE OXYGEN SATURATION WITHIN NORMAL LIMITS OR PATIENTS OPTIMAL LEVEL ESTABLISHED BY THE PHYSICIAN THROUGHOUT CARE. CHANGES TO CO-MORBID CONDITIONS AND ANY NEW CONDITIONS WILL BE IDENTIFIED AND REPORTED TO THE PHYSICIAN. Goal Provider Goal - PATIENT/CAREGIVER TO VERBALIZE, AND CONSISTENTLY DEMONSTRATE EFFECTIVE, SAFE MANAGEMENT OF MEDICATION INCLUDING KNOWLEDGE OF EFFECTIVENESS, POTENTIAL SIDE EFFECTS AND DRUG REACTIONS AND WHEN TO CONTACT THE APPROPRIATE CARE PROVIDER. PATIENT/CAREGIVER WILL BE ABLE TO VERBALIZE UNDERSTANDING OF MEDICATION REGIMEN AND ACCURATELY TAKE MEDICATIONS PRESCRIBED WITHOUT ADVERSE EFFECTS BY EOE Goal Provider Goal - PATIENT/CAREGIVER WILL VERBALIZE UNDERSTANDING OF SIGNS AND SYMPTOMS THAT PUT THE PATIENT AT RISK FOR HOSPITALIZATION /EMERGENCY ROOM VISITS, WHEN TO NOTIFY NURSE/PHYSICIAN OF COMPLICATIONS/DECLINE AND WHEN TO CALL 911. Goal Provider Goal - PATIENT / CAREGIVER WILL VERBALIZE/DEMONSTRATE UNDERSTANDING OF MEASURES TO MANAGE ALTERED CARDIOVASCULAR STATUS BY EOE . Goal Provider Goal - PATIENT / CAREGIVER WILL VERBALIZE/DEMONSTRATE AN ABILITY TO ADHERE TO SELF-MANAGEMENT OF HTN TO MINIMIZE COMPLICATIONS AND AVOID HOSPITALIZATION BY END OF EPISODE. Goal Provider Goal - PATIENT / CAREGIVER WILL VERBALIZE/DEMONSTRATE UNDERSTANDING OF MEASURES TO MANAGE ALTERED RESPIRATORY STATUS BY END OF EPISODE. Goal Provider Goal - PATIENT / CAREGIVER WILL VERBALIZE/DEMONSTRATE AN ABILITY TO ADHERE TO SELF-MANAGEMENT OF COPD TO MINIMIZE COMPLICATIONS AND AVOID HOSPITALIZATION BY END OF EPISODE. Goal Provider Goal - CHANGES IN SKIN INTEGRITY STATUS WILL BE IDENTIFIED AND REPORTED TO THE PHYSICIAN FOR PROMPT INTERVENTION. PATIENT / CAREGIVER WILL VERBALIZE/DEMONSTRATE ADEQUATE KNOWLEDGE OF INTEGUMENTARY STATUS AND APPROPRIATE MEASURES TO PROMOTE SKIN INTEGRITY AND PREVENT INJURY BY EOE Goal Provider Goal - PATIENT / CAREGIVER WILL VERBALIZE / DEMONSTRATE UNDERSTANDING OF PAIN CONTROL MEASURES BY EOE Goal Provider Goal - PATIENT/CAREGIVER WILL VERBALIZE/DEMONSTRATE UNDERSTANDING OF FALL RISK FACTORS AND IMPLEMENT STRATEGIES TO MINIMIZE FALL RISK. PATIENT/CAREGIVER WILL VERBALIZE/DEMONSTRATE AN ABILITY TO ADHERE TO FALL REDUCTION SELF-MANAGEMENT AND LIFE-STYLE CHANGES BY EOE Goal Provider Goal - Goal Provider Goal - PATIENT / CAREGIVER WILL VERBALIZE/DEMONSTRATE APPROPRIATE METHODS TO IMPROVE NUTRITIONAL STATUS BY END OF EPISODE. Goal Provider Goal - PT LTG: PATIENT WILL DEMONSTRATE REDUCED GAIT DEVIATIONS TO REDUCE THE RISK FOR FALLING AND MINIMIZE STRAIN ON KNEES/HIPS AND BACK EVIDENCED BY IMPROVED HEEL STRIKE, ADEQUATE STEP LENGTH AND CONSISTENT FOOT CLEARANCE BILATERALLY USING LRAD TO WALK INDEPENDENTLY IN ORDER TO ACCESS ALL AREAS OF THE HOME AND TRANSPORTATION WITHIN 9 WEEKS PT LTG: PATIENT WILL DEMONSTRATE REDUCED FALL RISK EVIDENCED BY IMPROVED SELF- SELECTED WALKING SPEED (SSWS CUT SCORE 0.6 TO 0.9 INDICATES MODERATE FALL RISK, 0.6 M/S INDICATES HIGH FALL RISK) FROM 0.6M/SEC TO 1.0M/SEC WITHIN 9 WEEKS PT LTG: PATIENT WILL DEMONSTRATE REDUCED FALL RISK EVIDENCED BY TUG TEST (CUT SCORE >11 SECONDS INDICATES INCREASED FALL RISK) IMPROVING FROM 28 SECONDS TO 27 SECONDS WITHIN 9 WEEKS PT LTG: PATIENT WILL DEMONSTRATE IMPROVED FUNCTIONAL STRENGTH EVIDENCED BY FIVE TIMES SIT TO STAND TEST (CUT SCORE >12 SECONDS INDICATES AN INCREASED FALL RISK) IMPROVING FROM 27 SECONDS TO 17 SECONDS WITHIN 9 WEEKS PT LTG: PATIENT WILL DEMONSTRATE INCREASED STRENGTH OF LEFT LE FROM 3+/5 TO 4+/5 WITHIN 9 WEEKS IN ORDER TO IMPROVE SAFETY AND STABILITY WITH GAIT AND STAIRS PT LTG: PATIENT WILL DEMONSTRATE IMPROVED ABILITY TO SAFELY NEGOTIATE STAIRS FROM NT TO INDEPENDENT WITH RAIL IN ORDER TO IMPROVE SAFETY AND STABILITY WITH ACCESSING SECOND FLOOR FULL BATHROOM WITHIN 9 WEEKS PT STG: PATIENT WILL DEMONSTRATE IMPROVED ABILITY TO PERFORM SIT TO/FROM STAND TRANSFERS TO REDUCE THE RISK OF SKIN BREAKDOWN AND REDUCE FALL RISK FROM SBA TO INDEPENDENT WITHIN 4 WEEKS PT LTG: PATIENT WILL NOT EXHIBIT SIGNS AND SYMPTOMS OF ANTICOAGULANT TOXICITY THROUGHOUT EPISODE OF CARE. PT LTG: PATIENT WILL MAINTAIN OXYGEN SATURATION WITHIN PHYSICIAN ORDERED PARAMETERS THROUGHOUT EPISODE OF CARE. PT GOAL: PATIENT WILL DEMONSTRATE UNDERSTANDING OF PAIN MANAGEMENT TECHNIQUES EVIDENCED BY REDUCED PAIN IN LEFT KNEE FROM 7/10 TO 2/10 WITHIN 9 WEEKS PT LTG: PATIENT WILL NOT EXPERIENCE CARDIAC OR RESPIRATORY COMPLICATIONS THROUGHOUT THE EPISODE OF CARE. PT LTG: PATIENT/CAREGIVER WILL DEMONSTRATE ADHERENCE TO FALL REDUCTION SELF-MANAGEMENT AND REDUCING FALL RISK FACTORS TO MINIMIZE FALL RISK BY END OF EPISODE. PT LTG: PATIENT WILL BE INDEPENDENT WITH IMPLEMENTATION OF HEP WITHIN 4 WEEKS Encounters Start Date/Time End Date/Time Encounter Type Admission Type Attending Clinicians Care Facility Care Department Encounter ID Discharge Date Discharge Status Discharge Condition Discharge Reason Percent Goals Met 2024-09-23 00:00:00 2024-11-21 00:00:00 Outpatient NEW ADMISSION [facility] [id number] 16.98
== END 2024-11-09 10:34 | disposition home or self-care (01) ==
LOC: HO.HMCH 09:38
PROVIDERS: PCP Internal Medicine; Visit Provider Internal Medicine
DX: E87.1 Hypo-osmolality and hyponatremia (principal); S32.010A Wedge compression fracture of first lumbar vertebra, initial encounter for closed fracture; J44.9 Chronic obstructive pulmonary disease, unspecified; M51.362 Other intervertebral disc degeneration, lumbar region with discogenic back pain and lower extremity pain; M85.80 Other specified disorders of bone density and structure, unspecified site; I10 Essential (primary) hypertension; E78.00 Pure hypercholesterolemia, unspecified; M79.604 Pain in right leg; M79.605 Pain in left leg; R20.2 Paresthesia of skin; D64.9 Anemia, unspecified; I83.813 Varicose veins of bilateral lower extremities with pain

== ENCOUNTER → 2024-11-09 09:38 | Outpatient (BNVA) | payer MEDICARE, MEDICAID, SELFPAY | PROVIDERS: PCP Internal Medicine; Visit Provider Internal Medicine | DX: E87.1 Hypo-osmolality and hyponatremia (principal); S32.010D Wedge compression fracture of first lumbar vertebra, subsequent encounter for fracture with routine healing; M51.362 Other intervertebral disc degeneration, lumbar region with discogenic back pain and lower extremity pain; M85.80 Other specified disorders of bone density and structure, unspecified site; J44.9 Chronic obstructive pulmonary disease, unspecified; I10 Essential (primary) hypertension; E78.00 Pure hypercholesterolemia, unspecified; M79.604 Pain in right leg; M79.605 Pain in left leg; R20.2 Paresthesia of skin; D64.9 Anemia, unspecified; I83.813 Varicose veins of bilateral lower extremities with pain; R32 Unspecified urinary incontinence; F41.9 Anxiety disorder, unspecified | CPT/HCPCS: 96127; 99212 ==

== ENCOUNTER 2024-11-10 06:24 | Outpatient (REF) | payer MEDICARE, MEDICAID, SELFPAY ==
[2024-11-10 06:45] LABS: MANUAL DIFF FLAG NO
[2024-11-10 07:32] LABS: Hemoglobin A1C 102.3129 umol/L; Total Hemoglobin (HGBA1C) 2961.6581 umol/L
[2024-11-10 07:34] LABS: Hematocrit 32.7 % (37.0-47.0); Hemoglobin 10.8 g/dl (12.0-16.0); Imm Gran Abs Auto 0.02 X10*3/uL (0.00-0.03); Imm Gran Pct Auto 0.5 % (0.0-0.4); Lymphocytes Absolute Auto 1.1 X10*3/uL (1.2-4.9); Mean Corpuscular HGB Conc 33.0 g/dl (31.0-35.0); Mean Corpuscular Hemoglobin 27.6 pg (27.0-33.0); Mean Corpuscular Volume 83.6 fL (80.0-98.0); NRBC Abs Auto 0.000 X10*3/uL (0.0-0.012); NRBC Pct Auto 0.0 /100WBC (0.0-0.2); Platelet Count 420 X10*3/uL (160-400); Red Blood Count 3.91 X10*6/uL (4.20-5.50); White Blood Count 3.9 X10*3/uL (4.8-10.8)
[2024-11-10 07:36] LABS: Appearance Urine Clear; Glucose Urine UA Negative (Negative); PH 6.0 (5.0-9.0); Specific Gravity - Urine 1.015 (1.005-1.025); UMIC TRIGGER UACC YES
[2024-11-10 07:55] LABS: Osmolality, Serum 272 mosm/kg (281-305)
[2024-11-10 07:57] LABS: UACC Culture Trigger YES
[2024-11-10 08:06] LABS: Anion Gap 13 (12-20); Calcium 9.5 mg/dL (8.4-10.2); Carbon Dioxide 24 mmol/L (22-29); Chloride 98 mmol/L (96-108); Potassium 4.4 mmol/L (3.3-5.1); Sodium 131 mmol/L (135-145)
[2024-11-10 08:11] LABS: Alanine Aminotransferase 11 U/L (0-31); Albumin Level 4.0 g/dL (3.5-5.0); Alkaline Phosphatase 51 U/L (39-117); Aspartate Amino Transferase 28 U/L (5-31); Blood Urea Nitrogen 11 mg/dL (9-16); Cholesterol 205 mg/dL (<200); Estimated Glomerular Filt Rate > 60; HDL Cholesterol 64 mg/dL (>40); Iron 62 mcg/dL (30-160); Percent Iron Saturation 17 % (15-50); Total Iron Binding Capacity 359 mcg/dL (228-428); Total Protein 6.7 g/dL (6.5-8.0); Triglycerides 67 mg/dL (<150); Unsaturated Iron Binding 297 ug/dL
[2024-11-10 08:26] LABS: Folate 8.4 ng/mL (> or = 4.0); Vitamin B12 579 pg/mL (200-900)
== END 2024-11-10 06:25 | disposition home or self-care (01) ==
LOC: HO.LAB 06:24
PROVIDERS: PCP Internal Medicine; Visit Provider Internal Medicine
DX: E11.9 Type 2 diabetes mellitus without complications (principal); E87.1 Hypo-osmolality and hyponatremia; E55.9 Vitamin D deficiency, unspecified; E78.00 Pure hypercholesterolemia, unspecified; D50.9 Iron deficiency anemia, unspecified; E53.8 Deficiency of other specified B group vitamins; R79.89 Other specified abnormal findings of blood chemistry
CPT/HCPCS: 36415; 80053; 80061; 81001; 82248; 82306; 82607; 82668; 82746; 83036; 83540; 83930; 84443; 85025; 87086

== ENCOUNTER 2024-11-11 15:09 | Outpatient (AMB) | payer MEDICARE, MEDICAID, SELFPAY ==
--- NOTE | 2024-11-11 15:13 | A.OFFVIS_ITS ---
Vital Signs 11/11/24 15:16 BP 111/57 L Blood Pressure Location Lt brachial Position Sitting Respiration 16 Pulse 89 Pulse Source Pulse Oximeter Pulse Oximetry (%) 97 Oxygen Delivery Method Room Air Intake Visit Reasons: Wedge compression fracture/lumbar vertebra Underwear Trimmer Required: No Accompanied by: Sister Allergies No Known Allergies (No Known Allergies*) Allergy (Verified 11/11/24 15:17) HPI Comments Details: The patient is a 74-year-old female presenting with pain associated with compression fractures in the lumbar spine. Review of MRI shows compression fractures at L1, L3, and L5. The pain is primarily located across the lower back and exacerbates with coughing, causing significant discomfort. The patient describes the pain as severe, impacting her ability to walk long distances and perform daily activities. She notes that the pain occasionally radiates slightly down the legs but does not reach the feet. The patient has been managing the pain with gabapentin, naproxen, and Tylenol, but reports limited relief. She was previously evaluated in the emergency room where they gave her oxycodone, pain was not improved with this medication either. The patient has a history of osteoporosis, which complicates the management of her spinal fractures. She has not been receiving specific treatment for osteopo rosis, and her last bone density scan was reportedly not bad . The patient experienced a fall approximately 6 months ago, which may have contributed to the fractures. Denies red flag symptoms including new loss of bowel, bladder or saddle anesthesia. - Onset: Pain associated with compression fractures identified on MRI - Quality: Severe pain exacerbated by coughing - Location: Primarily across the lower back, with occasional radiation to the legs - Exacerbating factors: Walking long distances, coughing - Relieving factors: None significantly noted, limited relief with gabapentin, naproxen, and Tylenol - Affect: Pain significantly impacts daily activities and mobility - Analgesia: Current medications include gabapentin, naproxen, and Tylenol with limited relief - Adverse Effects: None reported - Activities of Daily Living: Pain limits walking and daily activities - Aberrant Drug Related Behaviors: None reported [facility] Medical History Compression fracture of L1 lumbar vertebra SIADH (syndrome of inappropriate ADH production) De Quervain's tenosynovitis, left Arthritis of hand, left, degenerative Hearing impairment Smoker Depression Anxiety Osteoporosis Urinary urgency Urinary incontinence Varicose veins of bilateral lower extremities with pain Peripheral polyneuropathy Pure hypercholesterolemia Anemia Compression fracture of L4 vertebra with routine healing Lumbar degenerative disc disease Benign essential hypertension COPD (chronic obstructive pulmonary disease) Surgical History History of cystoscopy History of bilateral cataract extraction Family History Father No problems noted. Mother Lung cancer Sister Down syndrome Maternal Grandfather Lung cancer Maternal Grandmother Lung cancer Other Hyponatremia Social History Household Members: None Housing: House Do you presently have visiting nurse or other home services: Yes Alcohol intake: never Patient Tobacco Use Status: Former Tobacco user Tobacco use type: Cigarette Cigarette Packs Per Day: 2 Cigarettes Per Day: 40 e-Cigarette/Vaping Use: Never Used Second Hand Smoke Exposure: Yes Advance Directives Date on File: 04/10/24 service: No Current occupational status: retired Cognitive needs: No Hearing needs: Yes Vision needs: Yes (Glasses) Review of Systems Const Details: - Musculoskeletal: Reports severe lower back pain, exacerbated by coughing, occasional radiation to legs - Neurological: Denies numbness, weakness, or tingling in legs - General: Reports fatigue with walking Physical Exam Vital Signs: Last Vital Signs Pulse 89 11/11/24 15:16 Resp 16 11/11/24 15:16 BP 111/57 L 11/11/24 15:16 Pulse Ox 97 11/11/24 15:16 Oxygen Delivery Method Room Air 11/11/24 15:16 General: awake, alert, oriented. Answers questions appropriately. Thin, cachectic. Skin: warm, dry, intact HEENT: Normocephalic. Hearing intact. Cardiac: External chest normal in appearance. Respiratory: No cough, audible wheezing or stridor. Abdomen: without gross distension. MS: Cachectic. Able to transition from sit to stand with some assistance Tenderness over midline lumbar vertebrae and lumbar paraspinals Valsalva positive SLR negative bilaterally, negative footdrop, negative clonus Neurological: Oriented to person, place, time and situation. Thought process intact. Ambulates with the use of Rollator walker Psychiatric: Appropriate mood and affect. Good judgment and insight. Results Reviewed Results Reviewed: 10/01/24 FINDINGS: CORONAL ALIGNMENT: -Mild to moderate levoconvex scoliosis. SAGITTAL ALIGNMENT: - Normal lordosis. LUMBOSACRAL JUNCTION: -Normal. There are 5 [id number] lumbar-type vertebral bodies. VERTEBRAL BODIES/BONE MARROW: -Subacute appearing vertebra, of L1, with 5 mm of retropulsion of bone into the central canal. -Mild superior endplate subacute compression deformity L3, 30% loss of height. No retropulsion of bone. -Minimal inferior endplate subacute compression deformity of L5. -No additional compression deformities or bone marrow edema. No abnormal infiltrating bone marrow signal. Scattered Schmorl's nodes within the endplates are noted. -There is a 6 mm degenerative anterolisthesis of L4 on L5. DISCS: -Severe loss of disc height and signal at L5-S1. -Moderate loss at L4-5, and mild loss at the levels above L4. SPINAL CANAL: -No abnormal developmental findings. CONUS MEDULLARIS: -Terminates at superior endplate of L2. Morphology and signal is normal. INTRADURAL NERVE ROOTS: - No abnormal nerve root clumping or mass identified. -Severe central canal stenosis at L4-5. Axial Disc Space Images: T12-L1: Moderate central canal stenosis at the endplate of L1 due to retropulsion of bone by 5 mm. No compression of the conus. No signal abnormality within the conus. Mild bilateral neural foraminal narrowing at T12-L1. L1-L2: Vertebral plan of L1, subacute. No central canal or significant neural foraminal narrowing. L2-L3: Subacute compression deformity of L3 with 30% loss of height. No retropulsion of bone. There is a shallow diffuse disc bulge present extending into both foraminal zones, mild bilateral hypertrophic facet changes, and prominent posterior ligamentous thickening/infolding. The combination of findings is resulting in mild to moderate central canal stenosis, mild to moderate bilateral subarticular recess stenosis, and mild bilateral neural foraminal stenosis. L3-L4: Shallow diffuse disc bulge is present extending into both foraminal zones. Moderate hypertrophic degenerative facet changes, with posterior ligamentous thickening/infolding. There is moderate central canal stenosis, moderate bilateral subarticular recess stenosis, and mild bilateral neural foraminal stenosis. L4-L5: There is disc uncovering secondary to 6 mm of anterolisthesis. Severe hypertrophic degenerative facet changes are present bilaterally with severe posterior ligamentous thickening/infolding. There is severe central canal stenosis, with the central canal being reduced to 4 mm in AP diameter. There is severe bilateral subarticular recess stenosis with likely impingement of the traversing L5 nerve roots bilaterally. There is moderate right and mild left neural foraminal narrowing. L5-S1: Subacute appearing minimal compression deformity inferior endplate of L5. Diffuse shallow disc bulge is somewhat asymmetrically prominent into the left neural foramen and lateral to foramen. Mild to moderate hypertrophic degenerative facet changes bilaterally with posterior ligamentous thickening/infolding. Combination of findings is resulting in moderate central canal stenosis, moderate bilateral subarticular recess stenosis with contact but no definite impingement of the traversing S1 roots bilaterally. There is mild right and moderate to severe left neural foraminal impingement. There may be mild impingement of the exiting left L5 nerve root. IMAGED SI JOINTS: -Mild to moderate degenerative arthrosis bilaterally. PARAVERTEBRAL AND INCLUDED EXTRASPINAL SOFT TISSUES: -Severe hydronephrosis of the right kidney. This is incompletely imaged. -Atheromatous aorta without aneurysm. -Normal-appearing gallbladder. -Left kidney demonstrates extrarenal pelvis. MR/MR lumbar spine wo con IMPRESSION: 1. There is levoconvex scoliosis. 2. There are subacute appearing compression deformities of L1 (severe, with 5 mm retropulsion of bone), the superior endplate of L3 by approximately 30%, and minimally the inferior endplate of L5 by approximately 10%. 3. There is moderate central canal stenosis at the L1 level due to retropulsed bone from the vertebral plana deformity. There is no definite impingement of the conus or signal abnormality. 4. A 6 mm degenerative anterolisthesis at L4-5 results in severe central canal stenosis and severe bilateral subarticular recess stenosis. 5. Moderate central canal stenosis and moderate bilateral subarticular recess stenosis at L5-S1, with moderate to severe left neural foraminal stenosis. See above for details. 6. See the body of the report for additional ancillary findings, including probable severe right hydronephrosis. Assessment & Plan Assessment & Plan (1) Lumbar degenerative disc disease: Comment: (+) old wedge compression Fx of L4; new (from 2016) compression deformity at L3 Code(s): M51.36 - Other intervertebral disc degeneration, lumbar region Category: Medical Qualifiers: Disc-related pain type: discogenic back pain and lower extremity pain Qualified Code(s): M51.362 - Other intervertebral disc degeneration, lumbar region with discogenic back pain and lower extremity pain (2) Compression fracture of L4 vertebra with routine healing: Code(s): S32.040D - Wedge compression fracture of fourth lumbar vertebra, subsequent encounter for fracture with routine healing Category: Medical (3) Compression fracture of L1 lumbar vertebra: Code(s): S32.010A - Wedge compression fracture of first lumbar vertebra, initial encoun ter for closed fracture Category: Medical Qualifiers: Encounter type: initial encounter Qualified Code(s): S32.010A - Wedge compression fracture of first lumbar vertebra, initial encounter for closed fracture (4) Compression fracture of lumbar spine, non-traumatic: Code(s): M48.56XA - Collapsed vertebra, not elsewhere classified, lumbar region, initial encounter for fracture Category: Medical (5) Chronic back pain: Code(s): M54.9 - Dorsalgia, unspecified; G89.29 - Other chronic pain Category: Medical (6) Spondylolisthesis: Code(s): M43.10 - Spondylolisthesis, site unspecified Category: Medical Plan The plan involves considering a kyphoplasty procedure for the stabilization of the L3 and L5 compression fractures, as these are causing significant pain and are amenable to cementing. L1 is not suitable for kyphoplasty due to the risks. The patient is advised to discuss the procedure with family and consider insurance approval due to the time-sensitive nature of the fractures' healing process. The patient is encouraged to continue current pain management with gabapentin, naproxen, and Tylenol, and to consult with her primary care physician regarding osteoporosis management and potential medication adjustments. Additional imaging, specifically x-rays with bending, is recommended to assess the stability of the fractures further. Patient was informed and verbally consented to the use of an ambient scribe for clinic note documentation during this visit. Orders: Orders XR lumbar spine 6V w bending Today G89.29 - Other chronic pain, M43.10 - Spondylolisthesis, site unspecified, M48.56XA - Collapsed vertebra, not elsewhere classified, lumbar region, initial encounter for fracture, M51.362 - Other intervertebral disc degeneration, lumbar region with discogenic back pain and lower extremity pain, M54.9 - Dorsalgia, unspecified, S32.010A - Wedge compression fracture of first lumbar vertebra, initial encounter for closed fracture, S32.040D - Wedge compression fracture of fourth lumbar vertebra, subsequent encounter for fracture with routine healing Patient Instructions: - Consider the kyphoplasty procedure for L3 and L5 fractures and discuss with family. - Continue taking gabapentin, naproxen, and Tylenol as prescribed. - Schedule x-rays with bending to further assess fracture stability. - Consult with primary care physician regarding osteoporosis management. Coding Level of Care Code New Pt Level 4 (10625) Complex EM visit Add On G2211 Diagnoses Degeneration of intervertebral disc of lumbar region with discogenic back pain and lower extremity pain M51.362 Disc-related pain type: discogenic back pain and lower extremity pain Compression fracture of L4 vertebra with routine healing S32.040D Compression fracture of L1 vertebra, initial encounter S32.010A Encounter type: initial encounter Compression fracture of lumbar spine, non-traumatic M48.56XA Chronic back pain M54.9; G89.29 Spondylolisthesis M43.10
[2024-11-11 15:16] VITALS: BP 111/57; PULSE 89; RESP 16; O2SAT 97
--- OUTSIDE RECORDS SUMMARY | 2024-11-11 15:28 | XMS_ITS | Encounter Summary ---
Author Organization [facility] Address [address] [place] [address] Care Team Providers Care Cnc Mill Programmer Name Role Phone Alan Chanel MD Primary Care Provider Encounter Details Date Type Department Care Team (Late st Contact Info) Description 06/08/2024 Lab Requisition [facility] Lab [address] [place] [address] Kenny Malave MD [address] [facility] [address] [place], [address] Chronic obstructive pulmonary disease, unspecified (CMS/HCC [...] LAB CHEMISTRY METHOD 06/08/2024 11:51 AM EST [facility] Potassium 5.0 3.5 - 5.5 mmol/L [...] Resul t [facility] [address] [place] [address], * (ABNORMAL) Complete blood count (06/08/2024 7:16 [...] t [facility] [address] [place] [address], documented in this encounter Visit Diagnoses Diagnosis Chronic obstructive pulmonary disease, unspecified (CMS/HCC V24, CMS/HCC V28) documented in this encounter Care Teams Cnc Mill Programmer Relationship Specialty Start Date End Date Alan Chanel MD [address] [place] [address] [address] [place] PCP - General Internal Medicine 03/12/24 documented as of this encounter
== END 2024-11-11 16:10 | disposition home or self-care (01) ==
LOC: HO.PMC 15:09
PROVIDERS: PCP Internal Medicine; Referring Provider Physician Assistant; Visit Provider Registered Nurse Emergency
DX: M51.362 Other intervertebral disc degeneration, lumbar region with discogenic back pain and lower extremity pain (principal); S32.040A Wedge compression fracture of fourth lumbar vertebra, initial encounter for closed fracture; S32.010A Wedge compression fracture of first lumbar vertebra, initial encounter for closed fracture; M54.9 Dorsalgia, unspecified; G89.29 Other chronic pain; M43.10 Spondylolisthesis, site unspecified
CPT/HCPCS: 99204; G2211

== ENCOUNTER → 2024-11-11 15:09 | Outpatient (BNVA) | payer MEDICARE, MEDICAID, SELFPAY | PROVIDERS: PCP Internal Medicine; Referring Provider Physician Assistant; Visit Provider Registered Nurse Emergency | DX: M51.362 Other intervertebral disc degeneration, lumbar region with discogenic back pain and lower extremity pain (principal); S32.040D Wedge compression fracture of fourth lumbar vertebra, subsequent encounter for fracture with routine healing; S32.010A Wedge compression fracture of first lumbar vertebra, initial encounter for closed fracture; M43.10 Spondylolisthesis, site unspecified; G89.29 Other chronic pain | CPT/HCPCS: 99202 ==

== ENCOUNTER → 2024-11-18 23:59 | Outpatient (BNV) | payer MEDICARE, MEDICAID, SELFPAY | PROVIDERS: PCP Internal Medicine; Visit Provider Internal Medicine | DX: E22.2 Syndrome of inappropriate secretion of antidiuretic hormone (principal); D50.8 Other iron deficiency anemias; E87.6 Hypokalemia | CPT/HCPCS: G0180 ==

== ENCOUNTER 2024-12-10 11:12 | Outpatient (AMB) | payer MEDICARE, MEDICAID, SELFPAY ==
[2024-12-10 11:19] VITALS: BP 132/64; PULSE 81; O2SAT 98; BMI 16.5
--- NOTE | 2024-12-10 11:19 | HO.NEPHOV ---
Vital Signs 12/10/24 11:19 Height 5 ft 6 in Weight 102 lb BMI 16.5 BP 132/64 Blood Pressure Location Lt brachial Position Sitting Pulse 81 Pulse Source Pulse Oximeter Pulse Oximetry (%) 98 Oxygen Delivery Method Room Air Intake Visit Reasons: INP: Hypo-osmolality and hyponatremia/Conf General Office Assistant Required: No Accompanied by: Sister Allergies No Known Allergies (No Known Allergies*) Allergy (Verified 12/10/24 11:22) Medication List - Last Reconciled 12/10/24 by Dipak Chau MD acetaminophen 975 mg (3 x 325 mg) PO Q6H albuterol sulfate 90 mcg/actuation 1 inh inhalation Q4H PRN aspirin (Doyle Chewable Low Dose Aspirin) 81 mg PO DAILY calcium carbonate (Calcium 600) 600 mg PO DAILY fluticasone furoate-vilanterol 50-25 mcg/dose (Breo Ellipta) 1 inh inhalation BID gabapentin 100 mg PO TID lisinopril 5 mg PO DAILY multivitamin 1 tab PO DAILY naproxen 500 mg PO DAILY PRN nicotine 1 patch transdermal Q24H tramadol 50 mg PO BID-TID PRN HPI Comments Details: 74-year-old woman with a history of chronic hyponatremia. She was seen during hospitalization for hyponatremia back in September 2024. She is here for follow-up. She has significant back pain and currently on tramadol. She is waiting to undergo kyphoplasty in the next 2 weeks. She is on low-dose lisinopril 5 mg a day. No specific complaints today. No polyuria polydipsia. No edema. [facility] Medical History (Updated 12/10/24 @ 11:37 by Dipak Chau MD) Hyponatremia Compression fracture of L1 lumbar vertebra SIADH (syndrome of inappropriate ADH production) De Quervain's tenosynovitis, left Arthritis of hand, left, degenerative Hearing impairment Smoker Depression Anxiety Osteoporosis Urinary urgency Urinary incontinence Varicose veins of bilateral lower extremities with pain Peripheral polyneuropathy Pure hypercholesterolemia Anemia Compression fracture of L4 vertebra with routine healing Lumbar degenerative disc disease Benign essential hypertension COPD (chronic obstructive pulmonary disease) Surgical History History of cystoscopy History of bilateral cataract extraction Family History Father No problems noted. Mother Lung cancer Sister Down syndrome Maternal Grandfather Lung cancer Maternal Grandmother Lung cancer Other Hyponatremia Social History Household Members: None Housing: House Do you presently have visiting nurse or other home services: Yes Alcohol intake: never Patient Tobacco Use Status: Former Tobacco user Tobacco use type: Cigarette Cigarette Packs Per Day: 2 Cigarettes Per Day: 40 e-Cigarette/Vaping Use: Never Used Second Hand Smoke Exposure: Yes Advance Directives Date on File: 04/10/24 service: No Current occupational status: retired Cognitive needs: No Hearing needs: Yes Vision needs: Yes (Glasses) Review of Systems Const Denies anorexia, Denies fever(s) and Denies weakness Eyes Denies blurry vision Card Denies no additional complaints and Denies dyspnea Resp Reports no additional complaints, Reports cough and Denies dyspnea GI Denies melena and Denies diarrhea Denies hematuria Musc Denies tingling Skin/Breast Denies rash Neuro Denies focal weakness, Denies tingling, Denies tremor(s) and Denies weakness Physical Exam Vital Signs: Last Vital Signs Pulse 81 12/10/24 11:19 BP 132/64 12/10/24 11:19 Pulse Ox 98 12/10/24 11:19 Oxygen Delivery Method Room Air 12/10/24 11:19 BMI result Body Mass Index 16.5 Comfortable Neck supple no JVD. Lungs entry equal no rales. Heart S1-S2 heard no gallop or rub. Abdomen soft nontender. Neuro alert awake oriented. No asterixis. Extremities no edema. Results Reviewed Nephrology Results: Hgb, (12.0-16.0) 10.8 g/dl L 11/10/24 WBC, (4.8-10.8) 3.9 X10*3/uL L 11/10/24 Plt Count, (160-400) 420 X10*3/uL H Δ 11/10/24 Sodium, (135-145) 131 mmol/L L 11/10/24 Potassium, (3.3-5.1) 4.4 mmol/L 11/10/24 Chloride, (96-108) 98 mmol/L 11/10/24 Carbon Dioxide, (22-29) 24 mmol/L 11/10/24 BUN, (9-16) 11 mg/dL 11/10/24 Creatinine, (0.5-1.4) 0.64 mg/dL 11/10/24 Calcium, (8.4-10.2) 9.5 mg/dL 11/10/24 Urine Protein, (Neg-Trace) Negative mg/dL 11/10/24 Assessment & Plan Assessment & Plan (1) Hyponatremia: Code(s): E87.1 - Hypo-osmolality and hyponatremia Category: Medical Plan Elderly woman with chronic asymptomatic hyponatremia. She has undergone extensive workup in the past. She probably has non osmotic ADH release. Pain could be a potential source. Thyroid function was normal. Cortisol was also normal. Recommendations Restrict oral free water intake to 1.2 L per 24 hours. Discontinue lisinopril 5 mg. Watch blood pressure. Add sodium chloride 1 g p.o. daily. She needs adequate analgesia. Agree with kyphoplasty. Recheck serum sodium in the next 4-6 weeks and return to clinic in 6 weeks. Orders: Orders Basic Metabolic Panel 5 Weeks E22.2 - Syndrome of inappropriate secretion of antidiuretic hormone Medications: New sodium chloride 1,000 mg PO DAILY 30 tabs 1RF Discontinued lisinopril Discontinued Reason: Doctor's Order 5 mg PO DAILY 90 tabs 1RF Coding Level of Care Code Est Pt Level 4 (60174) Diagnoses Hyponatremia E87.1
--- OUTSIDE RECORDS SUMMARY | 2024-12-10 11:53 | XMS_ITS | Encounter Summary ---
Author Organization [facility] Address [address] [place] [address] Care Team Providers Care Creative Producer Name Role Phone Alan Chanel MD Primary Care Provider Encounter Details Date Type Department Care Team (Late st Contact Info) Description 06/08/2024 Lab Requisition [facility] Lab [address] [place] [address] Kenny Malave MD [address] [facility] [address] [place], [phone] Chronic obstructive pulmonary disease, unspecified (CMS/HCC [...] LAB CHEMISTRY METHOD 06/08/2024 11:51 AM EST [facility] Potassium 5.0 3.5 - 5.5 mmol/L LAB CHEMISTRY METHOD 06/08/2024 11:51 AM [facility] Comment:Results verified by repeat testing Chloride 102 96 - 110 mmol/L LAB CHEMISTRY METHOD 06/08/2024 11:51 AM [facility] CO2 26 21 - 32 mmol/L LAB CHEMISTRY METHOD 06/08/2024 11:51 AM [facility] Anion Gap 8 3 - 11 LAB CHEMISTRY METHOD 06/08/2024 11:51 AM [facility] Glucose 78 70 - [...] [facility] Comment:Calculation based on the Chronic [...] Resul t [facility] [address] [place] [address], * (ABNORMAL) Complete blood count (06/08/2024 7:16 AM EST) [facility] WBC 5.0 4.8 - 10.8 K/mcL LAB HEMETOLOGY METHOD 06/08/2024 10:15 AM [facility] RBC 3.80 3.80 - 4.80 M/mcL LAB HEMETOLOGY METHOD 06/08/2024 10:15 AM [facility] Hemoglobin 10.6(L) 11.5 - 16.0 g/dL LAB HEMETOLOGY METHOD 06/08/2024 10:15 AM [facility] Hematocrit 33.0(L) 35.0 - 47.0 % LAB HEMETOLOGY METHOD 06/08/2024 10:15 AM [facility] MCV 86.4 79.0 - 98.0 FL LAB HEMETOLOGY METHOD 06/08/2024 10:15 AM [facility] MCH 27.7 27.0 - 32.0 pcg LAB HEMETOLOGY METHOD 06/08/2024 10:15 AM [facility] MCHC 32.1 32.0 - 37.0 g/dL LAB HEMETOLOGY METHOD 06/08/2024 10:15 AM [facility] RDW 17.9(H) 11.0 - 15.0 % LAB HEMETOLOGY METHOD 06/08/2024 10:15 AM [facility] Platelets 516(H) 130 - 400 K/mcL LAB HEMETOLOGY METHOD 06/08/2024 10:15 AM [facility] MPV 8.5 7.0 - 11.0 FL LAB HEMETOLOGY METHOD 06/08/2024 10:15 AM [facility] NRBC 0.0 <1.0 % LAB HEMETOLOGY METHOD 06/08/2024 10:15 AM [facility] NRBC Absolute 0.00 <0.10 K/mcL LAB HEMETOLOGY METHOD 06/08/2024 10:15 AM EST [facility] Blood Venous blood specimen / Unknown Venipuncture / Unknown 06/08/2024 7:16 AM EST 06/08/2024 9:26 AM EST us Kenny Malave MD LAB BLOOD ORDERABLES Final Resul t [facility] [address] [place] [address], documented in this encounter Visit Diagnoses Diagnosis Chronic obstructive pulmonary disease, unspecified (CMS/HCC V24, CMS/HCC V28) documented in this encounter Care Teams Creative Producer Relationship Specialty Start Date End Date Alan Chanel MD [address] [place] [address] [address] [place] PCP - General Internal Medicine 03/12/24 documented as of this encounter
--- OUTSIDE RECORDS SUMMARY | 2025-01-19 20:00 | XMS_ITS | Clinical Summary ---
Author Organization Unknown Care Team Providers Care Doors Prefitter Name Role Phone LAUREN PERLA Unavailable Carmen christable CADEN PT, MARGARITA Unavailable Unavailable MUKUND FILM MAKER, CHI Unavailable Unavailable TAYLA RN, PAULETTE Unavailable Unavailab reid SINGH OT, ABIODUN Unavailable Unavailable BEATA FRANCIS, LEVON Unavailable Unavailable Payers Payer Name Policy Type Policy Number Effective Date Expira tion Date MEDICARE.NGS.PDGM [id number] Problems Condition Name Condition Details Condition Category [...] HISTORY OF FALLING Active 09-23 00:00: 00 LONG-TERM (CURRENT) USE OF INHALED STEROIDS Active 09-24 [...] 09-18 00:00: 00 09-23 00:00 :00 No [id number] Per instruc tions Per instructio ns (route: oral) Med Classific ation: Central Nervous System Agents Breo Ellipta 50 mcg-25 mcg/dose powder for inhalation 09-17 00:00: 00 09-23 00:00 :00 No [id number] Per instruc tions Per instructio ns (route: inhalation ) Med Classific ation: Respirato ry Therapy Agents lisinopril 5 mg tablet 09-09 00:00: 00 09-23 00:00 :00 No [id number] Per instruc tions Per instructio ns (route: oral) Med Classific ation: Cardiovas cular Therapy Agents sertraline 50 mg tablet 09-09 00:00: 00 09-23 00:00 :00 No [id number] Per instruc tions Per instructio ns (route: oral) Med Classific ation: Central Nervous System Agents tramadol 50 mg tablet 09-08 00:00: 00 09-23 00:00 :00 No [id number] Per instruc tions Per instructio ns (route: oral) Med Classific ation: Analgesic , Anti-infl ammatory or Antipyret ic prednisone 10 mg tablet 09-03 00:00: 00 09-23 00:00 :00 No [id number] Per instruc tions Per instructio ns (route: oral) Med Classific ation: Endocrine colchicine 0.6 mg tablet 08-25 00:00: 00 09-23 00:00 :00 No [id number] Per instruc tions Per instructio ns (route: oral) Med Classific ation: Gout and Hyperuric emia Therapy acetaminoph en 500 mg tablet 09-23 00:00: 00 Yes [id number] MILD PAIN/ FEVER 2 tablet EVERY 8 HOURS 2 tablet EVERY 8 HOURS (route: oral) Med Classific ation: Analgesic , Anti-infl ammatory or Antipyret ic aspirin 81 mg tablet,suzanne yed release 09-23 00:00: 00 Yes [id number] PROTECT HEART 1 tablet DAILY 1 tablet DAILY (route: oral) Med Classific ation: Hematolog ical Agents Breo Ellipta 50 mcg-25 mcg/dose powder for inhalation 09-23 00:00: 00 Yes [id number] COPD 1 inhalat ion DAILY 1 inhalation DAILY (route: inhalation ) Med Classific ation: Respirato ry Therapy Agents Calcium 600 + Minerals 600 mg (as carbonate)- 200 unit tablet 09-23 00:00: 00 Yes [id number] SUPPLEMENT 1 tablet DAILY 1 tablet DAILY (route: oral) Med Classific ation: Electroly te Balance-N utritiona l Products lisinopril 5 mg tablet 09-23 00:00: 00 Yes [id number] HIGH BLOOD PRESSURE 1 tablet DAILY 1 tablet DAILY (route: oral) Med Classific ation: Cardiovas cular Therapy Agents Multi For Her 50 Plus 400 mcg-80 mcg capsule 09-23 00:00: 00 Yes [id number] SUPPLEMENT 1 capsule DAILY 1 capsule DAILY (route: oral) Med Classific ation: Electroly te Balance-N utritiona l Products naproxen 500 mg tablet 09-23 00:00: 00 Yes [id number] PAIN 1 tablet 2 TIMES DAILY 1 tablet 2 TIMES DAILY (route: oral) Med Classific ation: Analgesic , Anti-infl ammatory or Antipyret ic sertraline 25 mg tablet 09-23 00:00: 00 Yes [id number] SADNESS 1 tablet DAILY 1 tablet DAILY (route: oral) Med Classific ation: Central Nervous System Agents Ventolin HFA 90 mcg/actuati on aerosol inhaler 09-23 00:00: 00 Yes [id number] WHEEZE/SHOR TNESS OF BREATH 1 puff EVERY 4 HOURS 1 puff EVERY 4 HOURS (route: inhalation ) Med Classific ation: Respirato ry Therapy Agents vitamin E 268 mg (400 unit) capsule 09-23 00:00: 00 Yes [id number] SUPPLEMENT 1 capsule DAILY 1 capsule DAILY (route: oral) Med Classific ation: Electroly te Balance-N utritiona l Products oxycodone 5 mg tablet 10-06 00:00: 00 10-21 23:59 :00 No [id number] PAIN 1 tablet EVERY 6 HOURS 1 tablet EVERY 6 HOURS (route: oral) Med Classific ation: Analgesic , Anti-infl ammatory or Antipyret ic tizanidine 4 mg tablet 10-04 00:00: 00 Yes [id number] MUSCLE SPASMS .5 tablet 3 TIMES DAILY .5 tablet 3 TIMES DAILY (route: oral) Med Classific ation: Locomotor System gabapentin 100 mg capsule 10-21 00:00: 00 Yes [id number] PAIN 2 capsule BEDTIME 2 capsule BEDTIME (route: oral) Med Classific ation: Central Nervous System Agents Senna Plus 8.6 mg-50 mg tablet 10-21 00:00: 00 Yes [id number] CONSTIPATIO N 2 tablet BEDTIME 2 tablet BEDTIME (route: oral) Med Classific ation: Gastroint estinal Therapy Agents tramadol 50 mg tablet 10-21 00:00: 00 11-17 23:59 :00 No [id number] PAIN 1-6 2 tablet EVERY 6 HOURS 2 tablet EVERY 6 HOURS (route: oral) Med Classific ation: Analgesic , Anti-infl ammatory or Antipyret ic nicotine 14 mg/24 hr daily transdermal patch 10-30 00:00: 00 Yes [id number] CIGARETTE CESSATION 1 patch, transde rmal 24 hours DAILY 1 patch, transderma l 24 hours DAILY (route: transderma l) Med Classific ation: Chemical Dependenc y, Agents to Treat tramadol 50 mg tablet 11-22 00:00: 00 Yes [id number] PAIN TO SPINE 1 tablet 3 TIMES DAILY 1 tablet 3 TIMES DAILY (route: oral) Med Classific ation: Analgesic , Anti-infl ammatory or Antipyret ic Vital Signs Vital Name Observation Time Observation Value Commen ts Temperature 2024-12-08 09:15:00.000 97.7 [degF] Temperature 2024-12-07 08:48:00.000 99.1 [degF] Temperature 2024-12-02 09:44:00.000 98 [degF] Temperature 2024-12-01 09:50:00.000 97.8 [degF] Temperature 2024-11-30 08:55:00.000 98.7 [degF] Temperature 2024-11-25 08:36:00.000 98.2 [degF] Temperature 2024-11-24 08:52:00.000 97.1 [degF] Temperature 2024-11-23 09:08:00.000 98.7 [degF] Pulse 2024-12-08 09:15:00.000 73 /min Pulse 2024-12-07 08:48:00.000 72 /min Pulse 2024-12-02 09:44:00.000 87 /min Pulse 2024-12-01 09:50:00.000 86 /min Pulse 2024-11-30 08:55:00.000 77 /min Pulse 2024-11-25 08:36:00.000 88 /min Pulse 2024-11-24 08:52:00.000 79 /min Pulse 2024-11-23 09:08:00.000 75 /min O2 Saturation (%) 2024-12-08 09:15:00.000 96 % O2 Saturation (%) 2024-12-07 08:48:00.000 95 % O2 Saturation (%) 2024-12-02 09:44:00.000 96 % O2 Saturation (%) 2024-11-30 09:04:00.000 98 % O2 Saturation (%) 2024-11-30 08:55:00.000 98 % O2 Saturation (%) 2024-11-25 08:36:00.000 98 % O2 Saturation (%) 2024-11-24 08:52:00.000 99 % O2 Saturation (%) 2024-11-23 09:33:00.000 95 % O2 Saturation (%) 2024-11-23 09:08:00.000 96 % Respirations 2024-12-08 09:15:00.000 18 /min Respirations 2024-12-07 08:48:00.000 18 /min Respirations 2024-12-02 09:44:00.000 17 /min Respirations 2024-12-01 09:50:00.000 18 /min Respirations 2024-11-30 08:55:00.000 18 /min Respirations 2024-11-25 08:36:00.000 17 /min Respirations 2024-11-24 08:52:00.000 18 /min Respirations 2024-11-23 09:08:00.000 18 /min Systolic Blood Pressure 2024-12-08 09:15:00.000 90 mm[ Hg] Systolic Blood Pressure 2024-12-07 08:48:00.000 115 mm [Hg] Systolic Blood Pressure 2024-12-02 09:44:00.000 110 mm [Hg] Systolic Blood Pressure 2024-12-01 09:50:00.000 110 mm [Hg] Systolic Blood Pressure 2024-11-30 08:55:00.000 111 mm [Hg] Systolic Blood Pressure 2024-11-25 08:36:00.000 118 mm [Hg] Systolic Blood Pressure 2024-11-24 08:52:00.000 128 mm [Hg] Systolic Blood Pressure 2024-11-23 09:08:00.000 119 mm [Hg] Diastolic Blood Pressure 2024-12-08 09:15:00.000 54 mm [Hg] Diastolic Blood Pressure 2024-12-07 08:48:00.000 70 mm [Hg] Diastolic Blood Pressure 2024-12-02 09:44:00.000 62 mm [Hg] Diastolic Blood Pressure 2024-12-01 09:50:00.000 68 mm [Hg] Diastolic Blood Pressure 2024-11-30 08:55:00.000 68 mm [Hg] Diastolic Blood Pressure 2024-11-25 08:36:00.000 62 mm [Hg] Diastolic Blood Pressure 2024-11-24 08:52:00.000 70 mm [Hg] Diastolic Blood Pressure 2024-11-23 09:08:00.000 70 mm [Hg] Plan of Treatment Planned Activity Planned Date Details Comments Future Scheduled Test RN TO OBSE RVE, ASSESS, EVALUATE, AND DEVELOP AN INDIVIDUALIZED PLAN OF CARE. AGENCY MAY ACCEPT ORDERS FROM CONSULTING PHYSICIANS. RN TO OBSERVE AND ASSESS, PUPIL PERSONNEL SERVICES DIRECTOR/BANBURY OPERATOR TO OBSERVE FOR RISK FOR FALLS AND INSTRUCT IN FALL PREVENTION, HOME SAFETY, MEDICATION MANAGEMENT, INFECTION PREVENTION, AND NUTRITION MANAGEMENT. RN/PUPIL PERSONNEL SERVICES DIRECTOR/BANBURY OPERATOR NURSE MAY PERFORM O2 SATURATION LEVEL ON ADMISSION AND PRN FOR RN TO ASSESS/PUPIL PERSONNEL SERVICES DIRECTOR TO OBSERVE PATIENT, WITH NOTIFICATION TO THE PHYSICIAN IF SATURATION IS 90% IN THE ABSENCE OF MORE SPECIFIC PARAMETERS FROM THE PHYSICIAN. AGENCY MAY PERFORM A RESUMPTION OF CARE VISIT FOLLOWING ANY HOSPITAL ADMISSION. RN/PUPIL PERSONNEL SERVICES DIRECTOR/BANBURY OPERATOR TO MONITOR CO-MORBID CONDITIONS LISTED ON THE PLAN OF CARE AND ANY NEW CONDITIONS THAT PRESENT THEMSELVES DURING THIS EPISODE TO IDENTIFY CHANGES AND INTERVENE TO MINIMIZE COMPLICATIONS. [code = RN TO OBSERVE, ASSESS, EVALUATE, AND DEVELOP AN INDIVIDUALIZED PLAN OF CARE. AGENCY MAY ACCEPT ORDERS FROM CONSULTING PHYSICIANS. RN TO OBSERVE AND ASSESS, PUPIL PERSONNEL SERVICES DIRECTOR/BANBURY OPERATOR TO OBSERVE FOR RISK FOR FALLS AND INSTRUCT IN FALL PREVENTION, HOME SAFETY, MEDICATION MANAGEMENT, INFECTION PREVENTION, AND NUTRITION MANAGEMENT. RN/PUPIL PERSONNEL SERVICES DIRECTOR/BANBURY OPERATOR NURSE MAY PERFORM O2 SATURATION LEVEL ON ADMISSION AND PRN FOR RN TO ASSESS/PUPIL PERSONNEL SERVICES DIRECTOR TO OBSERVE PATIENT, WITH NOTIFICATION TO THE PHYSICIAN IF SATURATION IS 90% IN THE ABSENCE OF MORE SPECIFIC PARAMETERS FROM THE PHYSICIAN. AGENCY MAY PERFORM A RESUMPTION OF CARE VISIT FOLLOWING ANY HOSPITAL ADMISSION. RN/PUPIL PERSONNEL SERVICES DIRECTOR/BANBURY OPERATOR TO MONITOR CO-MORBID CONDITIONS LISTED ON THE PLAN OF CARE AND ANY NEW CONDITIONS THAT PRESENT THEMSELVES DURING THIS EPISODE TO IDENTIFY CHANGES AND INTERVENE TO MINIMIZE COMPLICATIONS.] Future Scheduled Test MEDICATION MANAGEMENT; RN/PUPIL PERSONNEL SERVICES DIRECTOR/BANBURY OPERATOR TO REVIEW MEDICATIONS FOR INTERACTIONS, EFFECTIVENESS OF DRUG THERAPY, AND SIGNS/SYMPTOMS OF ADVERSE REACTIONS. MAY INSTRUCT AND REINFORCE MEDICATION TEACHING RELATED TO THE USE OF MEDICATIONS, DOSAGE, FREQUENCY, PURPOSE, SIDE EFFECTS, AND TO REPORT COMPLICATIONS. [code = MEDICATION MANAGEMENT; RN/PUPIL PERSONNEL SERVICES DIRECTOR/BANBURY OPERATOR TO REVIEW MEDICATIONS FOR INTERACTIONS, EFFECTIVENESS OF DRUG THERAPY, AND SIGNS/SYMPTOMS OF ADVERSE REACTIONS. MAY INSTRUCT AND REINFORCE MEDICATION TEACHING RELATED TO THE USE OF MEDICATIONS, DOSAGE, FREQUENCY, PURPOSE, SIDE EFFECTS, AND TO REPORT COMPLICATIONS.] Future Scheduled Test RISK FOR H OSPITALIZATION; RN TO ASSESS/TEACH, BANBURY OPERATOR/PUPIL PERSONNEL SERVICES DIRECTOR TO OBSERVE/TEACH PATIENT/CAREGIVER ON RISK FOR HOSPITALIZATION/EMERGENCY ROOM VISITS, TEACH SIGNS AND SYMPTOMS THAT PUT PATIENT AT RISK, WHEN TO NOTIFY NURSE/PHYSICIAN OF COMPLICATIONS/DECLINE, AND WHEN TO CALL 911. [code = RISK FOR HOSPITALIZATION; RN TO ASSESS/TEACH, BANBURY OPERATOR/PUPIL PERSONNEL SERVICES DIRECTOR TO OBSERVE/TEACH PATIENT/CAREGIVER ON RISK FOR HOSPITALIZATION/EMERGENCY ROOM VISITS, TEACH SIGNS AND SYMPTOMS THAT PUT PATIENT AT RISK, WHEN TO NOTIFY NURSE/PHYSICIAN OF COMPLICATIONS/DECLINE, AND WHEN TO CALL 911.] Future Scheduled Test CARDIOVASC ULAR SYSTEM; RN TO ASSESS/TEACH, PUPIL PERSONNEL SERVICES DIRECTOR/BANBURY OPERATOR TO OBSERVE/TEACH RELATED TO ALTERED CARDIOVASCULAR STATUS TO MINIMIZE COMPLICATIONS AND REDUCE HOSPITALIZATION. [code = CARDIOVASCULAR SYSTEM; RN TO ASSESS/TEACH, PUPIL PERSONNEL SERVICES DIRECTOR/BANBURY OPERATOR TO OBSERVE/TEACH RELATED TO ALTERED CARDIOVASCULAR STATUS TO MINIMIZE COMPLICATIONS AND REDUCE HOSPITALIZATION.] Future Scheduled Test HYPOTENSIO N MANAGEMENT; RN TO ASSESS AND TEACH/ PUPIL PERSONNEL SERVICES DIRECTOR /BANBURY OPERATOR TO OBSERVE AND TEACH WARNING SIGNS AND SYMPTOMS TO AVOID HOSPITALIZATION. [code = HYPOTENSION MANAGEMENT; RN TO ASSESS AND TEACH/ PUPIL PERSONNEL SERVICES DIRECTOR /BANBURY OPERATOR TO OBSERVE AND TEACH WARNING SIGNS AND SYMPTOMS TO AVOID HOSPITALIZATION.] Future Scheduled Test PAIN MANAG EMENT; RN TO ASSESS AND TEACH, BANBURY OPERATOR/PUPIL PERSONNEL SERVICES DIRECTOR TO OBSERVE AND TEACH AND PROVIDE EDUCATION ON PAIN MANAGEMENT TECHNIQUES. [code = PAIN MANAGEMENT; RN TO ASSESS AND TEACH, BANBURY OPERATOR/PUPIL PERSONNEL SERVICES DIRECTOR TO OBSERVE AND TEACH AND PROVIDE EDUCATION ON PAIN MANAGEMENT TECHNIQUES.] Future Scheduled Test RESPIRATOR Y SYSTEM MANAGEMENT; RN TO ASSESS AND TEACH, PUPIL PERSONNEL SERVICES DIRECTOR/BANBURY OPERATOR TO OBSERVE AND TEACH RELATED TO ALTERED RESPIRATORY STATUS TO MINIMIZE COMPLICATIONS AND REDUCE HOSPITALIZATION. [code = RESPIRATORY SYSTEM MANAGEMENT; RN TO ASSESS AND TEACH, PUPIL PERSONNEL SERVICES DIRECTOR/BANBURY OPERATOR TO OBSERVE AND TEACH RELATED TO ALTERED RESPIRATORY STATUS TO MINIMIZE COMPLICATIONS AND REDUCE HOSPITALIZATION.] Future Scheduled Test COPD MANAG EMENT; RN TO ASSESS AND TEACH, PUPIL PERSONNEL SERVICES DIRECTOR/BANBURY OPERATOR TO OBSERVE AND TEACH SIGNS/SYMPTOMS OF COPD EXACERBATION AND PROVIDE EARLY INTERVENTIONS TO MINIMIZE RISK OF HOSPITALIZATION. RN/PUPIL PERSONNEL SERVICES DIRECTOR/BANBURY OPERATOR TO INSTRUCT ON SELF-CARE MANAGEMENT INCLUDING BREATHING TECHNIQUES, AIRWAY CLEARANCE, AND PROPER USE OF COPD MEDICATIONS. RN TO ASSESS AND TEACH, PUPIL PERSONNEL SERVICES DIRECTOR/BANBURY OPERATOR TO OBSERVE AND TEACH PATIENT/CAREGIVER ABILITY TO MONITOR AND RECORD VITAL SIGNS INCLUDING PULSE OXIMETRY AND BLOOD PRESSURE. [code = COPD MANAGEMENT; RN TO ASSESS AND TEACH, PUPIL PERSONNEL SERVICES DIRECTOR/BANBURY OPERATOR TO OBSERVE AND TEACH SIGNS/SYMPTOMS OF COPD EXACERBATION AND PROVIDE EARLY INTERVENTIONS TO MINIMIZE RISK OF HOSPITALIZATION. RN/PUPIL PERSONNEL SERVICES DIRECTOR/BANBURY OPERATOR TO INSTRUCT ON SELF-CARE MANAGEMENT INCLUDING BREATHING TECHNIQUES, AIRWAY CLEARANCE, AND PROPER USE OF COPD MEDICATIONS. RN TO ASSESS AND TEACH, PUPIL PERSONNEL SERVICES DIRECTOR/BANBURY OPERATOR TO OBSERVE AND TEACH PATIENT/CAREGIVER ABILITY TO MONITOR AND RECORD VITAL SIGNS INCLUDING PULSE OXIMETRY AND BLOOD PRESSURE. ] Future Scheduled Test FALL REDUC TION MANAGEMENT; RN TO ASSESS AND OBSERVE, PUPIL PERSONNEL SERVICES DIRECTOR/BANBURY OPERATOR TO OBSERVE FALL RISK FACTORS AND EDUCATE PATIENT/CAREGIVER ON STRATEGIES TO MINIMIZE THE RISK OF FALLING. [code = FALL REDUCTION MANAGEMENT; RN TO ASSESS AND OBSERVE, PUPIL PERSONNEL SERVICES DIRECTOR/BANBURY OPERATOR TO OBSERVE FALL RISK FACTORS AND EDUCATE PATIENT/CAREGIVER ON STRATEGIES TO MINIMIZE THE RISK OF FALLING.] Future Scheduled Test AGENCY MAY PERFORM A RESUMPTION OF CARE VISIT FOLLOWING ANY HOSPITAL ADMISSION. OT TO EVALUATE, OBSERVE / ASSESS, AND MONITOR, YOHANNES TO OBSERVE AND MONITOR, PROVIDE SKILLED THERAPEUTIC INTERVENTION, ACTIVITY, EDUCATION, AND TRAINING TO ADDRESS; BATHING/SHOWERING (OT/YOHANNES) ACTIVITIES OF DAILY LIVING (OT/BARGE PILOT) MEAL PREPARATION AND CLEANUP (OT/BARGE PILOT) LAUNDRY MANAGEMENT (OT/BARGE PILOT) BATH/SHOWER TRANSFER (OT/YOHANNES) HOME ACTIVITY / EXERCISE PROGRAM (OT/BARGE PILOT) POSTURAL CONTROL/BALANCE (OT/YOHANNES) OT/YOHANNES TO MONITOR AND EDUCATE ON OXYGEN SATURATION DURING ADLS/IADLS, NOTIFY PHYSICIAN AND/OR THE RN CLINICAL CONFERENCE CENTER COORDINATOR FOR PHYSICIAN NOTIFICATION AND IF O2 SATS BELOW 90% AFTER 10 MIN OF REST. OT/BARGE PILOT MAY EDUCATE ON PAIN MANAGEMENT CLINICALLY INDICATED. OT / BARGE PILOT TO IDENTIFY FALL RISK FACTORS; EDUCATE THE PATIENT/CAREGIVER ON WAYS TO REDUCE FALL RISK FACTORS AND ESTABLISH HOME EXERCISE PROGRAM TO MINIMIZE FALL RISK. MAY TEACH THE PATIENT FLOOR RECOVERY WHEN CLINICALLY APPROPRIATE. [code = AGENCY MAY PERFORM A RESUMPTION OF CARE VISIT FOLLOWING ANY HOSPITAL ADMISSION. OT TO EVALUATE, OBSERVE / ASSESS, AND MONITOR, BARGE PILOT TO OBSERVE AND MONITOR, PROVIDE SKILLED THERAPEUTIC INTERVENTION, ACTIVITY, EDUCATION, AND TRAINING TO ADDRESS; BATHING/SHOWERING (OT/BARGE PILOT) ACTIVITIES OF DAILY LIVING (OT/YOHANNES) MEAL PREPARATION AND CLEANUP (OT/YOHANNES) LAUNDRY MANAGEMENT (OT/YOHANNES) BATH/SHOWER TRANSFER (OT/YOHANNES) HOME ACTIVITY / EXERCISE PROGRAM (OT/BARGE PILOT) POSTURAL CONTROL/BALANCE (OT/BARGE PILOT) OT/YOHANNES TO MONITOR AND EDUCATE ON OXYGEN SATURATION DURING ADLS/IADLS, NOTIFY PHYSICIAN AND/OR THE RN CLINICAL CONFERENCE CENTER COORDINATOR FOR PHYSICIAN NOTIFICATION AND IF O2 SATS BELOW 90% AFTER 10 MIN OF REST. OT/BARGE PILOT MAY EDUCATE ON PAIN MANAGEMENT CLINICALLY INDICATED. OT / BARGE PILOT TO IDENTIFY FALL RISK FACTORS; EDUCATE THE PATIENT/CAREGIVER ON WAYS TO REDUCE FALL RISK FACTORS AND ESTABLISH HOME EXERCISE PROGRAM TO MINIMIZE FALL RISK. MAY TEACH THE PATIENT FLOOR RECOVERY WHEN CLINICALLY APPROPRIATE.] Future Scheduled Test AGENCY MAY PERFORM A RESUMPTION OF CARE VISIT FOLLOWING ANY HOSPITAL ADMISSION. PT TO EVALUATE, OBSERVE / ASSESS, AND MONITOR, FILM MAKER TO OBSERVE AND MONITOR, PROVIDE SKILLED THERAPEUTIC INTERVENTION, ACTIVITY, EDUCATION, AND TRAINING TO ADDRESS; PT/FILM MAKER TO PROVIDE GAIT TRAINING FOR IMPROVED MOBILITY AND /OR TO NORMALIZE GAIT PATTERN NEUROMUSCULAR RE-EDUCATION / BALANCE / POSTURAL CONTROL (PT) THERAPEUTIC EXERCISES AND ESTABLISHING A HOME EXERCISE PROGRAM (PT/FILM MAKER) PT/FILM MAKER TO PROVIDE STAIR TRAINING PT TO ASSESS / FILM MAKER TO MONITOR FOR AND REPORT EARLY SIGNS OF ANTICOAGULANT TOXICITY TO THE PHYSICIAN AND/OR THE RN CLINICAL CONFERENCE CENTER COORDINATOR FOR PHYSICIAN NOTIFICATION AND TO PROVIDE PATIENT/CAREGIVER EDUCATION ON ANTICOAGULANT THERAPY PT / FILM MAKER TO MONITOR AND EDUCATE ON OXYGEN SATURATION DURING ADLS/IADLS, NOTIFY PHYSICIAN AND/OR THE RN CLINICAL CONFERENCE CENTER COORDINATOR FOR PHYSICIAN NOTIFICATION AND IF O2 SATS BELOW PHYSICIAN ORDERED PARAMETERS AFTER 10 MIN OF REST PT / FILM MAKER MAY EDUCATE ON PAIN MANAGEMENT CLINICALLY INDICATED, INCLUDING NON-PHARMACOLOGICAL PAIN REDUCTION TECHNIQUES AND USE OF OR HEAT UP TO 20 MIN AT A TIME FOR PAIN MANAGEMENT 3 TIMES PER DAY TO PT TO ASSESS / FILM MAKER TO MONITOR CARDIO/RESPIRATORY SYSTEM; AND NOTIFY THE PHYSICIAN AND/OR THE RN CLINICAL CONFERENCE CENTER COORDINATOR FOR PHYSICIAN NOTIFICATION FOR EARLY SIGNS AND SYMPTOMS OF EXACERBATION OR DETERIORATION. PT/FILM MAKER TO IDENTIFY FALL RISK FACTORS; EDUCATE THE PATIENT/CAREGIVER ON WAYS TO REDUCE FALL RISK FACTORS AND ESTABLISH HOME EXERCISE PROGRAM TO MINIMIZE FALL RISK. MAY TEACH THE PATIENT FLOOR RECOVERY WHEN CLINICALLY APPROPRIATE [code = AGENCY MAY PERFORM A RESUMPTION OF CARE VISIT FOLLOWING ANY HOSPITAL ADMISSION. PT TO EVALUATE, OBSERVE / ASSESS, AND MONITOR, FILM MAKER TO OBSERVE AND MONITOR, PROVIDE SKILLED THERAPEUTIC INTERVENTION, ACTIVITY, EDUCATION, AND TRAINING TO ADDRESS; PT/FILM MAKER TO PROVIDE GAIT TRAINING FOR IMPROVED MOBILITY AND /OR TO NORMALIZE GAIT PATTERN NEUROMUSCULAR RE-EDUCATION / BALANCE / POSTURAL CONTROL (PT) THERAPEUTIC EXERCISES AND ESTABLISHING A HOME EXERCISE PROGRAM (PT/FILM MAKER) PT/FILM MAKER TO PROVIDE STAIR TRAINING PT TO ASSESS / FILM MAKER TO MONITOR FOR AND REPORT EARLY SIGNS OF ANTICOAGULANT TOXICITY TO THE PHYSICIAN AND/OR THE RN CLINICAL CONFERENCE CENTER COORDINATOR FOR PHYSICIAN NOTIFICATION AND TO PROVIDE PATIENT/CAREGIVER EDUCATION ON ANTICOAGULANT THERAPY PT / FILM MAKER TO MONITOR AND EDUCATE ON OXYGEN SATURATION DURING ADLS/IADLS, NOTIFY PHYSICIAN AND/OR THE RN CLINICAL CONFERENCE CENTER COORDINATOR FOR PHYSICIAN NOTIFICATION AND IF O2 SATS BELOW PHYSICIAN ORDERED PARAMETERS AFTER 10 MIN OF REST PT / FILM MAKER MAY EDUCATE ON PAIN MANAGEMENT CLINICALLY INDICATED, INCLUDING NON-PHARMACOLOGICAL PAIN REDUCTION TECHNIQUES AND USE OF OR HEAT UP TO 20 MIN AT A TIME FOR PAIN MANAGEMENT 3 TIMES PER DAY TO PT TO ASSESS / FILM MAKER TO MONITOR CARDIO/RESPIRATORY SYSTEM; AND NOTIFY THE PHYSICIAN AND/OR THE RN CLINICAL CONFERENCE CENTER COORDINATOR FOR PHYSICIAN NOTIFICATION FOR EARLY SIGNS AND SYMPTOMS OF EXACERBATION OR DETERIORATION. PT/FILM MAKER TO IDENTIFY FALL RISK FACTORS; EDUCATE THE [...] WALKING WITHOUT WALKER, BACK TO BASELINE Goal 2024-11-20 Patient Goal - T O GET STRONGER, [...] MEASURES TO MANAGE ALTERED CARDIOVASCULAR STATUS BY EOE. Goal Provider Goal - PATIENT/CAREGIVER WILL VERBALIZE/DEMONSTRATE ABILITY TO ADHERE TO SELF-MANAGEMENT OF HYPOTENSION TO MINIMIZE COMPLICATIONS AND AVOID HOSPITALIZATION BY THE END OF EPISODE. Goal Provider Goal - PATIENT / CAREGIVER WILL VERBALIZE / DEMONSTRATE UNDERSTANDING OF PAIN CONTROL MEASURES BY EOE Goal Provider Goal - PATIENT / CAREGIVER WILL VERBALIZE/DEMONSTRATE UNDERSTANDING OF MEASURES TO MANAGE ALTERED RESPIRATORY STATUS BY END OF EPISODE. Goal Provider Goal - PATIENT / CAREGIVER WILL VERBALIZE/DEMONSTRATE AN ABILITY TO ADHERE TO SELF-MANAGEMENT OF COPD TO MINIMIZE COMPLICATIONS AND AVOID HOSPITALIZATION BY END OF EPISODE. Goal Provider Goal - PATIENT/CAREGIVER WILL VERBALIZE/DEMONSTRATE UNDERSTANDING OF FALL RISK FACTORS AND IMPLEMENT STRATEGIES TO MINIMIZE FALL RISK. PATIENT/CAREGIVER WILL VERBALIZE/DEMONSTRATE AN ABILITY TO ADHERE TO FALL REDUCTION SELF-MANAGEMENT AND LIFE-STYLE CHANGES BY EOE Goal Provider Goal - OT LTG: PATIENT WILL DEMONSTRATE IMPROVED ABILITY TO PERFORM BATHING/SHOWERING AND REDUCE CAREGIVER BURDEN FROM MOD A TO MOD I WITHIN 8 WEEKS OT LTG: PATIENT WILL DEMONSTRATE IMPROVEMENT IN MODIFIED JOCELYNN INDEX SCORE FROM 87/100 TO 92/100 INDICATING DECREASED DEPENDENCY ON CAREGIVER ASSISTANCE WITH ACTIVITIES OF DAILY LIVING WITHIN 8 WEEKS OT LTG: PATIENT WILL DEMONSTRATE THE ABILITY TO COMPLETE MEAL PREPARATION AND CLEANUP TO REDUCE CAREGIVER BURDEN FROM UNBALW TO MIN A WITHIN 8 WEEKS OT LTG: PATIENT WILL DEMONSTRATE THE ABILITY TO COMPLETE LAUNDRY FROM UNBALE TO SET UP A WITHIN 8 WEEKS. OT STG: PATIENT WILL DEMONSTRATE IMPROVED ABILITY TO PERFORM SHOWER TRANSFER WITH MODERATE ASSISTANCE WITHIN 4 WEEKS OT LTG: PATIENT WILL DEMONSTRATE IMPROVED ABILITY AND SAFETY TO PERFORM BATH/SHOWER TRANSFER FROM UNBALE TO CGA WITHIN 8 WEEKS. OT LTG: PATIENT WILL DEMONSTRATE IMPROVED POSTURAL CONTROL AND DECREASED FALL RISK EVIDENCED BY AN IMPROVEMENT IN FUNCTIONAL REACH SCORE FROM 5 TO 8 WITHIN 8 WEEKS IN ORDER TO DECREASE RISK OF FALLING. OT LTG: PATIENT WILL MAINTAIN OXYGEN SATURATION WITHIN PHYSICIAN ORDERED PARAMETERS THROUGHOUT THE EPISODE OF CARE. OT LTG: PATIENT WILL DEMONSTRATE UNDERSTANDING OF PAIN MANAGEMENT TECHNIQUES NEEDED DURING EPISODE OF CARE OT LTG: PATIENT/CAREGIVER WILL BE ABLE TO IMPLEMENT RECOMMENDATIONS SPECIFIC TO FALL REDUCTION FOR IMPROVED ADL/IADL COMPLETION AND HOME SAFETY BY END OF EPISODE. Goal Provider Goal - PT LTG: PATIENT WILL DEMONSTRATE REDUCED GAIT DEVIATIONS TO REDUCE THE RISK FOR FALLING AND MINIMIZE STRAIN ON KNEES/HIPS AND BACK EVIDENCED BY IMPROVED HEEL STRIKE, ADEQUATE STEP LENGTH AND CONSISTENT FOOT CLEARANCE BILATERALLY USING ROLLATOR TO WALK INDEPENDENTLY IN ORDER TO ACCESS ALL AREAS OF THE HOME AND RAMP WITHIN 5 WEEKS PT LTG: PATIENT WILL DEMONSTRATE REDUCED FALL RISK EVIDENCED BY IMPROVED SELF- SELECTED WALKING SPEED (SSWS CUT SCORE 0.6 TO 0.9 INDICATES MODERATE FALL RISK, 0.6 M/S INDICATES HIGH FALL RISK) FROM UNABLE TO 1.0M/SEC WITHIN 9 WEEKS T LTG: PATIENT WILL DEMONSTRATE REDUCED FALL RISK EVIDENCED BY TUG TEST (CUT SCORE >11 SECONDS INDICATES INCREASED FALL RISK) IMPROVING FROM UNABLE TO 20 SECONDS WITHIN 9 WEEKS PT LTG: PATIENT WILL DEMONSTRATE IMPROVED FUNCTIONAL STRENGTH EVIDENCED BY FIVE TIMES SIT TO STAND TEST (CUT SCORE >12 SECONDS INDICATES AN INCREASED FALL RISK) IMPROVING FROM UNABLE TO 20 SECONDS WITHIN 9 WEEKS PT LTG: PATIENT WILL DEMONSTRATE INCREASED STRENGTH OF BILATERAL LES FROM 3/5 TO 4/5 WITHIN 9 WEEKS IN ORDER TO IMPROVE SAFETY AND STABILITY WITH GAIT AND STAIRS PT LTG: PATIENT WILL DEMONSTRATE IMPROVED ABILITY TO SAFELY NEGOTIATE STAIRS FROM UNABLE TO SBA WITH RAIL IN ORDER TO SAFELY ACCESS SHOWER WITHIN 9 WEEKS PT LTG: PATIENT WILL NOT EXHIBIT SIGNS AND SYMPTOMS OF ANTICOAGULANT TOXICITY THROUGHOUT EPISODE OF CARE. PT LTG: PATIENT WILL MAINTAIN OXYGEN SATURATION WITHIN PHYSICIAN ORDERED PARAMETERS THROUGHOUT EPISODE OF CARE. PT GOAL: PATIENT WILL DEMONSTRATE UNDERSTANDING OF PAIN MANAGEMENT TECHNIQUES EVIDENCED BY REDUCED PAIN IN LUMBAR SPINE FROM 10/10 TO 3/10 WITHIN 4 WEEKS PT LTG: PATIENT WILL NOT EXPERIENCE [...] Discharge Condition Discharge Reason Percent Goals Met 2024-11-22 00:00:00 2025-01-20 00:00:00 Outpatient RECERTIFIC ATION PAULETTE [facility] [id number] 17.95
== END 2024-12-10 11:33 | disposition home or self-care (01) ==
LOC: HO.HKA 11:13
PROVIDERS: PCP Internal Medicine; Referring Provider Internal Medicine; Visit Provider Internal Medicine Hypertension Specialist
DX: E87.1 Hypo-osmolality and hyponatremia (principal)
CPT/HCPCS: 99214

== ENCOUNTER → 2024-12-10 11:12 | Outpatient (BNVA) | payer MEDICARE, MEDICAID, SELFPAY | PROVIDERS: PCP Internal Medicine; Referring Provider Internal Medicine; Visit Provider Internal Medicine Hypertension Specialist | DX: E87.1 Hypo-osmolality and hyponatremia (principal); Z87.891 Personal history of nicotine dependence | CPT/HCPCS: 99212 ==

== ENCOUNTER 2024-12-25 06:59 | Day surgery (SDC) | payer MEDICARE, MEDICAID, SELFPAY ==
--- OUTSIDE RECORDS SUMMARY | 2024-11-20 10:22 | XMS_ITS | Encounter Summary ---
Author Organization [facility] Address [address] [place] [address] Care Team Providers Care Director Of Product Development Name Role Phone Alan Chanel MD Primary Care Provider Encounter Details Date Type Department Care Team (Late st Contact Info) Description 06/08/2024 Lab Requisition [facility] Lab [address] [place] [address] Kenny Malave MD [address] [facility] [address] [place], [address] Chronic obstructive pulmonary disease, unspecified (CMS/HCC [...] LAB CHEMISTRY METHOD 06/08/2024 11:51 AM EST [facility] Potassium 5.0 3.5 - 5.5 mmol/L [...] [facility] Comment:Calculation based on the Chronic [...] MD LAB BLOOD ORDERABLES Final Resul t [facility] [address] [place] [address], * (ABNORMAL) Complete blood count (06/08/2024 7:16 AM EST) [facility] WBC 5.0 4.8 - 10.8 K/mcL [...] LAB HEMETOLOGY METHOD 06/08/2024 10:15 AM EST [facility] Blood Venous blood specimen / Unknown Venipuncture / Unknown 06/08/2024 7:16 AM EST 06/08/2024 9:26 AM EST us Kenny Malave MD LAB BLOOD ORDERABLES Final Resul t [facility] [address] [place] [address], documented in this encounter Visit Diagnoses Diagnosis Chronic obstructive pulmonary disease, unspecified (CMS/HCC V24, CMS/HCC V28) documented in this encounter Care Teams Director Of Product Development Relationship Specialty Start Date End Date Alan Chanel MD [address] [place] [address] [address] [place] PCP - General Internal Medicine 03/12/24 documented as of this encounter
[2024-12-23 13:17] VITALS: BMI 16.5
--- NOTE | 2024-12-23 13:39 | HO.ANESPROP2 ---
Documented by User: Traci Dawson NP 12/23/24 13:56 HPI - Anesthesia Eval Consult details Narrative: 74 yr old female for Kyphoplasty L3 AND L5 Chronic asymptomatic hyponatremia: per renal probably has non osmotic ADH release, Pain could be a potential source. Last saw renal 12/10/24, recommendations as follows: -Restrict oral free water intake to 1.2 L per 24 hours. -Discontinue lisinopril 5 mg. Watch blood pressure. -Add sodium chloride 1 g p.o. daily. -She needs adequate analgesia. Agree with kyphoplasty. COPD: does not follow with pulmonary, on Breo, albuterol; per November 2024 PCP note her exertional dypsnea has improved since quitting smoking 1 yr ago. [facility] Active Problems Active Problems: All Active Problems Spondylolisthesis (Acute) Chronic back pain (Acute) Compression fracture of lumbar spine, non-traumatic (Acute) Osteopenia (Acute) Compression fracture of L1 lumbar vertebra (Acute) SIADH (syndrome of inappropriate ADH production) (Acute) Intractable back pain (Acute) Hydronephrosis of right kidney (Acute) Fracture of left tibial plateau (Acute) De Quervain's tenosynovitis, left (Acute) Arthritis of hand, left, degenerative (Acute) Hearing impairment (Acute) Primary osteoarthritis, left wrist (Acute) Left wrist pain (Acute) Traumatic hematoma of right elbow (Acute) Pain of left thumb (Acute) Low back pain (Acute) Paresthesia of both feet (Acute) Bilateral lower extremity pain (Acute) Annual physical exam (Acute) Bilateral shoulder pain (Acute) Smoker (Acute) Depression (Acute) Anxiety (Acute) Osteoporosis (Acute) Urinary urgency (Acute) Urinary incontinence (Acute) Varicose veins of bilateral lower extremities with pain (Acute) Peripheral polyneuropathy (Acute) Pure hypercholesterolemia (Acute) Anemia (Acute) Compression fracture of L4 vertebra with routine healing (Acute) Lumbar degenerative disc disease (Acute) Benign essential hypertension (Acute) COPD (chronic obstructive pulmonary disease) (Acute) Past Medical History Medical History Hyponatremia Compression fracture of L1 lumbar vertebra SIADH (syndrome of inappropriate ADH production) De Quervain's tenosynovitis, left Arthritis of hand, left, degenerative Hearing impairment Smoker Depression Anxiety Osteoporosis Urinary urgency Urinary incontinence Varicose veins of bilateral lower extremities with pain Peripheral polyneuropathy Pure hypercholesterolemia Anemia Compression fracture of L4 vertebra with routine healing Lumbar degenerative disc disease Benign essential hypertension COPD (chronic obstructive pulmonary disease) Family History Family History Father No problems noted. Mother Lung cancer Sister Down syndrome Maternal Grandfather Lung cancer Maternal Grandmother Lung cancer Other Hyponatremia Surgical History Surgical History History of cystoscopy History of bilateral cataract extraction Social History Social History Household Members: None Housing: House Are you a primary rn long term care to a significant other at home: No Do you presently have visiting nurse or other home services: No Alcohol intake: never Patient Tobacco Use Status: Current everyday Tobacco user Tobacco use type: Cigarette Cigarette Packs Per Day: 1 Cigarettes Per Day: 20.0 e-Cigarette/Vaping Use: Never Used Second Hand Smoke Exposure: No Use of substances other than those prescribed or required for medical reasons: No Have you been hit, kicked, punched, or otherwise hurt by someone within the past year? If so, by whom?: No Are you DNR?: No Advance Directives: No Advance Directives Information Provided: Yes Advance Directives on File: No Advance Directives Date on File: 04/10/24 Patient : No : No Poor oral hygiene: No service: No Current occupational status: retired Cognitive needs: No Hearing needs: Yes Vision needs: Yes (Glasses) Meds Allergies Allergy/AdvReac Type Severity Reaction Status Date / Time No Known Allergies (No Known Allergy Verified 12/10/24 11:22 Allergies*) Home Medications ?Medication ?Instructions ?Recorded ?Confirmed ?Last Taken ?Type aspirin 81 mg chewable tablet 81 mg PO DAILY 02/22/20 12/23/24 09/29/24 History (Doyle Chewable Low Dose Aspirin) calcium carbonate (Calcium 600) 600 mg PO DAILY 01/10/22 12/23/24 09/29/24 History multivitamin 1 tab PO DAILY 04/24/24 12/23/24 09/29/24 History albuterol sulfate 90 mcg/actuation 1 inh inhalation Q4H PRN Wheezing 09/30/24 12/23/24 Unknown History aerosol inhaler fluticasone furoate 50 1 inh inhalation BID 09/30/24 12/23/24 09/29/24 History mcg-vilanterol 25 mcg/dose inhalation powder (Breo Ellipta) naproxen 500 mg tablet 500 mg PO DAILY PRN Pain 12/10/24 12/23/24 Unknown History Exam Height,Weight and Vital Signs: Height 5 ft 6 in Weight 46.266 kg Pertinent Lab Results Pertinent Lab Results: Laboratory Tests 11/10/24 06:42 WBC 3.9 L RBC 3.91 L Hgb 10.8 L Hct 32.7 L Plt Count 420 H D Sodium 131 L Potassium 4.4 BUN 11 Creatinine 0.64 Narrative Narrative: EKG 09/2024 Vent. Rate : 89 BPM Atrial Rate : 89 BPM P-R Int : 158 ms QRS Dur : 62 ms QT Int : 356 ms P-R-T Axes : 89 8 41 degrees QTcB Int : 433 ms Sinus rhythm with Premature atrial complexes Septal infarct (cited on or before 24-Apr-2024) Abnormal ECG When compared with ECG of 24-Apr-2024 16:50, No significant change was found Documented by User: Viet Abarca MD 12/25/24 09:20 [facility] Past Medical History Medical History Hyponatremia Compression fracture of L1 lumbar vertebra SIADH (syndrome of inappropriate ADH production) De Quervain's tenosynovitis, left Arthritis of hand, left, degenerative Hearing impairment Smoker Depression Anxiety Osteoporosis Urinary urgency Urinary incontinence Varicose veins of bilateral lower extremities with pain Peripheral polyneuropathy Pure hypercholesterolemia Anemia Compression fracture of L4 vertebra with routine healing Lumbar degenerative disc disease Benign essential hypertension COPD (chronic obstructive pulmonary disease) Functional capacity: independent ambulation Family History Family History Father No problems noted. Mother Lung cancer Sister Down syndrome Maternal Grandfather Lung cancer Maternal Grandmother Lung cancer Other Hyponatremia Family history of problems with anesthesia: No Surgical History Surgical History History of cystoscopy History of bilateral cataract extraction History of Problems with Anesthesia: No Social History Social History Household Members: None Housing: House Are you a primary rn long term care to a significant other at home: No Do you presently have visiting nurse or other home services: No Alcohol intake: never Patient Tobacco Use Status: Current everyday Tobacco user Tobacco use type: Cigarette Cigarette Packs Per Day: 1 Cigarettes Per Day: 20.0 e-Cigarette/Vaping Use: Never Used Second Hand Smoke Exposure: No Use of substances other than those prescribed or required for medical reasons: No Have you been hit, kicked, punched, or otherwise hurt by someone within the past year? If so, by whom?: No Are you DNR?: No Advance Directives: No Advance Directives Information Provided: Yes Advance Directives on File: No Advance Directives Date on File: 04/10/24 Patient : No : No Poor oral hygiene: No service: No Current occupational status: retired Cognitive needs: No Hearing needs: Yes Vision needs: Yes (Glasses) Meds Allergies Allergy/AdvReac Type Severity Reaction Status Date / Time No Known Allergies (No Known Allergy Verified 12/10/24 11:22 Allergies*) Home Medications ?Medication ?Instructions ?Recorded ?Confirmed ?Last Taken ?Type aspirin 81 mg chewable tablet 81 mg PO DAILY 02/22/20 12/23/24 09/29/24 History (Doyle Chewable Low Dose Aspirin) calcium carbonate (Calcium 600) 600 mg PO DAILY 01/10/22 12/23/24 09/29/24 History multivitamin 1 tab PO DAILY 04/24/24 12/23/24 09/29/24 History albuterol sulfate 90 mcg/actuation 1 inh inhalation Q4H PRN Wheezing 09/30/24 12/23/24 Unknown History aerosol inhaler fluticasone furoate 50 1 inh inhalation BID 09/30/24 12/23/24 09/29/24 History mcg-vilanterol 25 mcg/dose inhalation powder (Breo Ellipta) naproxen 500 mg tablet 500 mg PO DAILY PRN Pain 12/10/24 12/23/24 Unknown History Exam Exam Date and Time: Airway Mallampati Class: II TM Dist: >3cm Neck ROM: Full Denture: Upper (full) Partial: Lower (full Dentures) Loose/Missing/Broken Teeth: No Heart: rrr Lungs: cta Assessment and Plan Assessment Anesthesia Assessment: Anesthesia Plan Discussed Final Anesthetic Review Family History of Problems with Anesthesia: No History of Problems with Anesthesia: No NPO: Yes ASA Class: III Final Preanesthetic Review: No Changes in Pt Med Stat, Meds/Allgs Chart Reviewed and Consent Obtained/Reviewed Procedure Risk: Intermediate Assessment/Block/Sedation in SS: Assess/Block/Sedation-SS Anesthetic Plan Anesthetic Plan: Spinal
[2024-12-25] VITALS (9 sets, daily range): BP systolic 125–180; BP diastolic 72–93; PULSE 81–90; RESP 16–20; TEMP 36.3–36.7; O2SAT 96–100; BMI 16.2
--- NOTE | ~2024-12-25 | FL_ITS ---
EXAMINATION: XR FLUOROSCOPY WITH IMAGES CLINICAL INFORMATION: Kyphoplasty, lumbar COMPARISON: 10/01/2024 MR Lumbar TECHNIQUE: Fluoroscopy provided to: Dr. Luz Fluoroscopy time: 2.36 minutes DAP: 7.4813 Gycm2 Images: 11 FINDINGS: 11 fluoroscopic spot images obtained during lumbar kyphoplasty. Please refer to the full operative report for details. FL/FL guidance in OR IMPRESSION: Fluoroscopic guidance. Electronically signed by: Anurag Crow MD 12/25/2024 11:59 AM EDT
[2024-12-25] MEDS: Lactated Ringers 1,000 ML 100 ML IVCONT (08:22)
[2024-12-25 08:27] LABS: Anion Gap 14 (12-20); Carbon Dioxide 26 mmol/L (22-29); Chloride 99 mmol/L (96-108); Potassium 4.1 mmol/L (3.3-5.1); Sodium 135 mmol/L (135-145)
--- NOTE | 2024-12-25 09:32 | P.HPSUR_ITS ---
Pre-Procedural Eval Section A - 24 Hr Update-Section A only Date of Service: 12/25/24 The patient is an INPATIENT: No Changes since office visit: Yes Patient answered all questions The patient has been examined within 24 hours of the surgical procedure. The History & Physical has been completed within 30 days and I have reviewed it.: No Section B - Complete if H&P > 30 days Chief Complaint: Collapsed vertebra, lumbar region Details of Present Illness: Vertebral compression fracture L3 Relevant Family History (Specify if Yes): No Relevant Social History: None Present Medications: see Short Stay Collaborative assessment Medical History: Significant History History of Previous Operations: No relevant previous surgery Allergies: Allergies Allergy/AdvReac Type Severity Reaction Status Date / Time No Known Allergies (No Known Allergy Verified 12/10/24 11:22 Allergies*) Review of Systems Sugical H&P ROS: Negative: Cardiovascular, Respiratory, Neurological, Psychiatric, Hem-Onc, Allergic/Immunologic, Gastrointestinal, Genitourinary, Integumentary and Eyes/Ears/Nose/Throat and Yes, Specify: Constitution (Very thin), Musculoskeletal (Scoliosis, spinal stenosis, L3,L5 L1 VCF) and Endocrine (SIADH osteoporosis) Exam Surgical H&P Exam: Normal: HEENT, Normal: Heart, Normal: Lungs, Normal: Extremities, Normal: Abdomen, Normal: Skin and Normal: Neurological Plan Diagnosis/Plan: Change I have reviewed the history and physical and performed a pertinent physical examination on my patient. No changes have occurred unless specified. My personal opinion fixation of L5 compression fracture will not bring any benefit of the patient and maybe overtly dangerous for the patient. She has L4- 5 spinal stenosis with diameter of spinal canal 4 mm. I decided to go for compression fracture augmentation of L3 vertebra only. Time Spent With Patient Time: Total time managing care of this patient today ____ minutes.
--- NOTE | 2024-12-25 09:39 | PC.NURSE ---
Upper and Lower dentures placed in blue denture cup given to Daughter along with patient owned walker.
--- NOTE | 2024-12-25 11:28 | P.OP_ITS ---
Operative Note Operative Note Date of Service: 12/25/24 Narrative: Kyphon balloon kyphoplasty [employer] Jesus Lester is very pleasant 74 years old female who developed severe osteoporosis and SAIIDH syndrome. Due to severe osteoporosis she developed compression fractures at L1 vertebra, L3 vertebra, and L5 vertebra. The L1 vertebra is so severely fractured it is completely collapsed. It also has retropulsion of the bony fragment toward the spinal canal and spinal cord. Therefore kyphoplasty at this level although indicated would be very dangerous to perform. It has been 2 months since her MRI demonstrating those fractures.!!! The L5 vertebra fractured very minimally and there is severe spinal canal stenosis L4-5 with L4 spondylolisthesis over L5. Not only the L5 kyphoplasty is not indicated performance of kyphoplasty at this level could be dangerous because spinal canal diameter in this area is only 4 mm. Any minimal expansion of the bone towards the spinal canal could result in cauda equina syndrome with loss of pelvic organ function. Only L3 side fracture is left for me to complete today. The patient was explained very thoroughly informed consent, she was explained need for biopsy of the bone. She was take to the operating room and positioned supine on the stretcher.. [employer] monitors were applied and patient was induced with general anesthesia, patient was intubated. After that patient was transferred prone on operating table will pressure points were protected. The lower back of the patient was prepped and draped with ChloraPrep and sterile half sheet were used to drape the lateral C-arm after that the full body dressing laparoscopy drape was applied. Another sterilely draped C-arm was brought for AP and oblique images over the operating field. Time-out was performed delineating name and date of of the patient, nature of the procedure, allergies of the patient, need for antibiotics, antibiotic cefazolin was given intravenously 2 g 20 minutes before procedure. Square AP and lateral image of the L3 vertebra was obtained on the screens. The location of needle insertion was delineated as the distance between the lateral border of the pedicle on AP view and in the lateral line bilaterally staying away from the pedicle border to approximate 1 width of the patient's L3 vertebra. The position of the insertion of the each trocar was injected with mixture of lidocaine 2% and ropivacaine 0.5% one-to-one. After that 11 gauge trocar was inserted through the skin wheal it was advanced to the pedicle and was positioned at the edge of the pedicle on the right. Under anterior posteri or and lateral views the trocar was advanced through the pedicle into vertebral body. Care was taken not to bridge inferior or medial border of the pedicle. When the tip of the needle was about [address] from the center of the L3 vertebral body on anterior posterior view, the stylette was removed from the trocar and the procedure was repeated on the left side with the same care taken. After that hand-held drill was obtained and it was used to advance the drill holes in the vertebral body further anterior and medial. Care was taken not to bridge the SAP fracture line on AP and lateral view and to stay 1 cm away from anterior wall of the vertebral body on the lateral view. The balloons were inflated forming the cavities within the vertebral body. After that 4mL of the polymethyl methacrylate cement was injected into the right cannula and 4 mL of polymethyl methacrylate cement was injected into the right cannula. After that 3.5 mm of polymethyl methacrylate cement was injected into the left cannula. The AP and lateral views of cement into the vertebral body were obtained. No breaching of the anterior posterior wall or superior and inferior wall with cement was demonstrated on the screen. After that we waited until the cement we be hardened and removed cannulas from the vertebral body, pressure was applied to arrest the bleeding and after that one 0-0 silk suture was applied on each insertion site. Sterile dressing was applied using 2 by 2s and Tegaderm. The patient tolerated procedure well. She was awakened transferred to the PACU where she recovered uneventfully.
--- NOTE | 2024-12-25 11:37 | P.BOP_ITS ---
Brief Operative Note Date of Service: 12/25/24 Pre-op diagnosis: Compression fracture of the L3 vertebra, osteoporosis. Post-op diagnosis: same Procedure: Kyphoplasty L3 compression fracture using Kyphon system [employer] Surgeon: Remberto Luz MD Anesthesia: GETA Was an Gunner'S Mate G used for this Procedure?: No Estimated blood loss (mL): 8 Pathology: other (Biopsy of the L3 vertebral body bones were sent for permanent stain and pathological evaluation.) Condition: stable Disposition: PACU
== END 2024-12-25 13:38 | disposition home or self-care (01) ==
PROVIDERS: Nurse Practitioner; PCP Internal Medicine; Visit Provider Anesthesiology
PROC: (CPT 22514; principal; 2024-12-25 08:50)
DX: M80.88XA Other osteoporosis with current pathological fracture, vertebra(e), initial encounter for fracture (principal); E22.2 Syndrome of inappropriate secretion of antidiuretic hormone; R26.2 Difficulty in walking, not elsewhere classified; Z91.81 History of falling; G89.29 Other chronic pain; M51.362 Other intervertebral disc degeneration, lumbar region with discogenic back pain and lower extremity pain; M48.061 Spinal stenosis, lumbar region without neurogenic claudication; G62.9 Polyneuropathy, unspecified; I83.93 Asymptomatic varicose veins of bilateral lower extremities; J44.9 Chronic obstructive pulmonary disease, unspecified; I10 Essential (primary) hypertension; E78.00 Pure hypercholesterolemia, unspecified; D64.9 Anemia, unspecified; H91.90 Unspecified hearing loss, unspecified ear; R32 Unspecified urinary incontinence; F32.A Depression, unspecified; F41.9 Anxiety disorder, unspecified; F17.210 Nicotine dependence, cigarettes, uncomplicated
CPT/HCPCS: 22514; 36415; 80051; 88307; 88311; C1713; J0690; J2003; J2704; J2795; J3010; Q9967

== ENCOUNTER → 2024-12-25 06:59 | Outpatient (BNV) | payer MEDICARE, MEDICAID, SELFPAY | PROVIDERS: PCP Internal Medicine; Visit Provider Anesthesiology | DX: M80.08XA Age-related osteoporosis with current pathological fracture, vertebra(e), initial encounter for fracture (principal) | CPT/HCPCS: 22514 ==

== ENCOUNTER 2025-01-01 10:19 | Outpatient (AMB) | payer MEDICARE, MEDICAID, SELFPAY ==
--- NOTE | 2025-01-01 10:20 | A.OFFVIS_ITS ---
Vital Signs 01/01/25 10:21 Height 5 ft 6 in Weight 103 lb BMI 16.6 BP 146/66 H Blood Pressure Location Lt brachial Position Sitting Respiration 16 Pulse 80 Pulse Source Pulse Oximeter Pulse Oximetry (%) 99 Oxygen Delivery Method Room Air Intake Visit Reasons: S/p L3 and L5 Kyphoplasty 12/25/24 Senior Data Developer Required: No Allergies No Known Allergies (No Known Allergies*) Allergy (Verified 01/01/25 10:25) HPI Comments Details: The patient is a 74-year-old female presenting with follow-up for vertebral compression fracture surgery and management of chronic pain. The patient underwent kyphoplasty for a vertebral compression fracture, with the initial plan was to treat L3 and L5 however L5 was unable to tolerate the cement therefore she underwent only the L3 kyphoplasty. The surgery was tolerated well, and the patient reports improvement in pain levels, although some discomfort persists, ranging from 3 to 5 on the pain scale. She reports improvement in function and mobility since the procedure. The patient has a history of degenerative disc disease, which contributes to her chronic pain. There is no current intervention available for the deteriorated discs, and surgical options are limited due to the potential for weakening adjacent structures. - Pain onset: Post-surgical, following kyphoplasty - Pain quality: Persistent, with episodes of 3 to 5 on the pain scale - Pain location: Back, related to vertebral compression fracture and degenerative disc disease - Exacerbating factors: Movement - Relieving factors: Surgical intervention has provided some relief - Affect: Pain impacts daily activities but is currently manageable - Analgesia: Pain levels range from 3 to 5, with improvement post-surgery - Adverse Effects: None reported - Activities of Daily Living: Patient can function better post-surgery - Aberrant Drug Related Behaviors: None reported [facility] Medical History Hyponatremia Compression fracture of L1 lumbar vertebra SIADH (syndrome of inappropriate ADH production) De Quervain's tenosynovitis, left Arthritis of hand, left, degenerative Hearing impairment Smoker Depression Anxiety Osteoporosis Urinary urgency Urinary incontinence Varicose veins of bilateral lower extremities with pain Peripheral polyneuropathy Pure hypercholesterolemia Anemia Compression fracture of L4 vertebra with routine healing Lumbar degenerative disc disease Benign essential hypertension COPD (chronic obstructive pulmonary disease) Surgical History History of cystoscopy History of bilateral cataract extraction Family History Father No problems noted. Mother Lung cancer Sister Down syndrome Maternal Grandfather Lung cancer Maternal Grandmother Lung cancer Other Hyponatremia Social History Household Members: None Housing: House Are you a primary healthcare manager to a significant other at home: No Do you presently have visiting nurse or other home services: No Alcohol intake: never Patient Tobacco Use Status: Current everyday Tobacco user Tobacco use type: Cigarette Cigarette Packs Per Day: 1 Cigarettes Per Day: 20.0 e-Cigarette/Vaping Use: Never Used Second Hand Smoke Exposure: No Advance Directives Date on File: 04/10/24 service: No Current occupational status: retired Cognitive needs: No Hearing needs: Yes Vision needs: Yes (Glasses) Review of Systems Const Details: - Musculoskeletal: Reports persistent back pain, improved post-surgery Physical Exam Exam Exam: General: awake, alert, oriented. Answers questions appropriately. Thin, cachectic. Skin: warm, dry, intact HEENT: Normocephalic. Hearing intact. Cardiac: External chest normal in appearance. Respiratory: No cough, audible wheezing or stridor. Abdomen: without gross distension. MS: Cachectic. Able to transition from sit to stand with some assistance Neurological: Oriented to person, place, time and situation. Thought process intact. Ambulates with the use of Rollator walker Psychiatric: Appropriate mood and affect. Good judgment and insight. Dressing changed today. The wounds are clean no pathological discharge , no redness, no swelling, no local temperature, no tenderness on palpation. Total of 3 sutures removed. The area was cleansed with ChloraPrep and dressing was applied. Vital Signs: Last Vital Signs Pulse 80 01/01/25 10:21 Resp 16 01/01/25 10:21 BP 146/66 H 01/01/25 10:21 Pulse Ox 99 01/01/25 10:21 Oxygen Delivery Method Room Air 01/01/25 10:21 BMI result Body Mass Index 16.6 Assessment & Plan Assessment & Plan (1) Lumbar degenerative disc disease: Comment: (+) old wedge compression Fx of L4; new (from 2016) compression deformity at L3 Code(s): M51.36 - Other intervertebral disc degeneration, lumbar region Category: Medical Qualifiers: Disc-related pain type: discogenic back pain and lower extremity pain Qualified Code(s): M51.362 - Other intervertebral disc degeneration, lumbar region with discogenic back pain and lower extremity pain (2) Compression fracture of L4 vertebra with routine healing: Code(s): S32.040D - Wedge compression fracture of fourth lumbar vertebra, subsequent encounter for fracture with routine healing Category: Medical (3) Compression fracture of L1 lumbar vertebra: Code(s): S32.010A - Wedge compression fracture of first lumbar vertebra, initial encounter for closed fracture Category: Medical Qualifiers: Encounter type: initial encounter Qualified Code(s): S32.010A - Wedge compression fracture of first lumbar vertebra, initial encounter for closed fracture (4) Compression fracture of lumbar spine, non-traumatic: Code(s): M48.56XA - Collapsed vertebra, not elsewhere classified, lumbar region, initial encounter for fracture Category: Medical (5) Chronic back pain: Code(s): M54.9 - Dorsalgia, unspecified; G89.29 - Other chronic pain Category: Medical (6) Spondylolisthesis: Code(s): M43.10 - Spondylolisthesis, site unspecified Category: Medical (7) Status post kyphoplasty: Code(s): Z98.890 - Other specified postprocedural states Category: Medical Plan During the visit, we discussed the patient's recent kyphoplasty and the improvement in her pain levels post-surgery. We also reviewed the limitations of surgical interventions for degenerative disc disease and the potential for future pain management strategies, such as a stimulator device, if pain becomes unmanageable. The patient was advised to monitor her pain levels and return if they increase significantly. Sutures were removed, dressing change. Patient tolerated well. Patient was informed and verbally consented to the use of an ambient scribe for clinic note documentation during this visit Patient Instructions: - Monitor pain levels and report any significant increase. - Follow up if pain becomes unmanageable or interferes with daily activities. - Continue with current pain management strategies and consider additional interventions if necessary. Coding Level of Care Code Est Pt Level 3 (66282) Complex EM visit Add On G2211 Diagnoses Degeneration of intervertebral disc of lumbar region with discogenic back pain and lower extremity pain M51.362 Disc-related pain type: discogenic back pain and lower extremity pain Compression fracture of L4 vertebra with routine healing S32.040D Compression fracture of L1 vertebra, initial encounter S32.010A Encounter type: initial encounter Compression fracture of lumbar spine, non-traumatic M48.56XA Chronic back pain M54.9; G89.29 Spondylolisthesis M43.10 Status post kyphoplasty Z98.890
[2025-01-01 10:21] VITALS: BP 146/66; PULSE 80; RESP 16; O2SAT 99; BMI 16.6
--- OUTSIDE RECORDS SUMMARY | 2025-01-01 11:00 | XMS_ITS | Encounter Summary ---
Author Organization [facility] Address [address] [place] [address] Care Team Providers Care Distributor Cleaner Name Role Phone Alan Chanel MD Primary Care Provider Encounter Details Date Type Department Care Team (Late st Contact Info) Description 06/08/2024 Lab Requisition [facility] [address] [place] [address] Kenny Malave MD [address] [facility] [address] [place], [address] Chronic obstructive pulmonary disease, unspecified (CMS/HCC [...] CHEMISTRY METHOD 06/08/2024 11:51 AM EST [facility] ([facility] Potassium 5.0 3.5 - 5.5 mmol/L LAB CHEMISTRY METHOD 06/08/2024 11:51 AM [facility] Comment:Results verified by repeat testing Chloride 102 96 - 110 mmol/L LAB CHEMISTRY METHOD 06/08/2024 11:51 AM [facility] CO2 26 21 - 32 mmol/L LAB CHEMISTRY METHOD 06/08/2024 11:51 AM [facility] Anion Gap 8 3 - 11 LAB CHEMISTRY METHOD 06/08/2024 11:51 AM [facility] Glucose 78 70 - 100 mg/dL LAB CHEMISTRY METHOD 06/08/2024 11:51 AM [facility] BUN 17 5 - 25 mg/dL LAB CHEMISTRY METHOD 06/08/2024 11:51 AM [facility] Creatinine 0.53 0.50 - 1.10 mg/dL LAB CHEMISTRY METHOD 06/08/2024 11:51 AM [facility] eGFR 97 >=60 mL/min/1. 73m2 LAB CHEMISTRY METHOD 06/08/2024 11:51 AM [facility] Comment:Calculation based on the Chronic Kidney Disease Epidemiology Collaboration (CKD-EPI) equation refit without adjustment for race. BUN/Creatinine Ratio 32.1 LAB CHEMISTRY METHOD 06/08/2024 11:51 AM [facility] Calcium 9.6 8.5 - 10.5 mg/dL LAB CHEMISTRY METHOD 06/08/2024 11:51 AM [facility] Blood Venous blood specimen / Unknown Venipuncture / Unknown 06/08/2024 7:16 AM EST 06/08/2024 9:26 AM EST us Kenny Malave MD LAB BLOOD ORDERABLES Final Resul t [facility] [address] [place] [address], * (ABNORMAL) Complete blood count (06/08/2024 7:16 AM EST) [facility] WBC 5.0 4.8 - 10.8 K/mcL LAB HEMETOLOGY METHOD 06/08/2024 10:15 AM [facility] RBC 3.80 3.80 - 4.80 M/mcL LAB HEMETOLOGY METHOD 06/08/2024 10:15 AM [facility] Hemoglobin 10.6(L) 11.5 - 16.0 g/dL LAB HEMETOLOGY METHOD 06/08/2024 10:15 AM [facility] Hematocrit 33.0(L) 35.0 - 47.0 % LAB HEMETOLOGY METHOD 06/08/2024 10:15 AM [facility] MCV 86.4 79.0 - 98.0 FL LAB HEMETOLOGY METHOD 06/08/2024 10:15 AM [facility] MCH 27.7 27.0 - 32.0 pcg LAB HEMETOLOGY METHOD 06/08/2024 10:15 AM [facility] MCHC 32.1 32.0 - 37.0 g/dL LAB HEMETOLOGY METHOD 06/08/2024 10:15 AM [facility] RDW 17.9(H) 11.0 - 15.0 % LAB HEMETOLOGY METHOD 06/08/2024 10:15 AM [facility] Platelets 516(H) 130 - 400 K/mcL LAB HEMETOLOGY METHOD 06/08/2024 10:15 AM [facility] MPV 8.5 7.0 - 11.0 FL LAB HEMETOLOGY METHOD 06/08/2024 10:15 AM [facility] NRBC 0.0 <1.0 % LAB HEMETOLOGY METHOD 06/08/2024 10:15 AM [facility] NRBC Absolute 0.00 <0.10 K/mcL LAB HEMETOLOGY METHOD 06/08/2024 10:15 AM EST [facility] Blood Venous blood specimen / Unknown Venipuncture / Unknown 06/08/2024 7:16 AM EST 06/08/2024 9:26 AM EST us Kenny Malave MD LAB BLOOD ORDERABLES Final Resul t [facility] [address] [place] [address], documented in this encounter Visit Diagnoses Diagnosis Chronic obstructive pulmonary disease, unspecified (CMS/HCC V24, CMS/HCC V28) documented in this encounter Care Teams Distributor Cleaner Relationship Specialty Start Date End Date Alan Chanel MD [address] [place] [address] Dr [address] [place] PCP - General Internal Medicine 03/12/24 documented as of this encounter
--- OUTSIDE RECORDS SUMMARY | 2025-01-01 11:00 | XMS_ITS | Encounter Summary ---
Author Organization [facility] Address [address] [place] [address] Care Team Providers Care Camera Repairer Name Role Phone Alan Chanel MD Primary Care Provider Encounter Details Date Type Department Care Team (Late st Contact Info) Description 06/04/2024 Lab Requisition [facility] [address] [place] [address] Kenny Malave MD [address] [facility] [address] [place], [address] Other terminal carman (current) drug therapy Social History Tobacco Use [...] PANEL Routine 06/04/2024 5:36 AM EST Other terminal carman (current) drug therapy documented in this encounter Results * (ABNORMAL) Basic metabolic panel (06/04/2024 5:36 AM EST) Sodium 138 133 - 145 mmol/L LAB CHEMISTRY METHOD 06/04/2024 11:[address] [facility] Potassium 3.2(L) 3.5 - 5.5 mmol/L LAB CHEMISTRY METHOD 06/04/2024 11:[address] [facility] Chloride 102 96 - 110 mmol/L LAB CHEMISTRY METHOD 06/04/2024 11:[address] [facility] CO2 28 21 - 32 mmol/L LAB CHEMISTRY METHOD 06/04/2024 11:25 AM [facility] Anion Gap 8 3 - 11 LAB CHEMISTRY METHOD 06/04/2024 11:25 AM [facility] Glucose 71 70 - 100 mg/dL LAB CHEMISTRY METHOD 06/04/2024 11:25 AM [facility] BUN 18 5 - 25 mg/dL LAB CHEMISTRY METHOD 06/04/2024 11:25 AM [facility] Creatinine 0.57 0.50 - 1.10 mg/dL LAB CHEMISTRY METHOD 06/04/2024 11:25 AM [facility] eGFR 95 >=60 mL/min/1. 73m2 LAB CHEMISTRY METHOD 06/04/2024 11:25 AM [facility] Comment:Calculation based on the Chronic Kidney Disease Epidemiology Collaboration (CKD-EPI) equation refit without adjustment for race. BUN/Creatinine Ratio 31.6 LAB [...] t [facility] [address] [place] [address], documented in this encounter Visit Diagnoses Diagnosis Other shelter (current) drug therapy documented in this encounter Care Teams Camera Repairer Relationship Specialty Start Date End Date Alan Chanel MD [address] [place] [address] [address] [place] PCP - General Internal Medicine 03/12/24 documented as of this encounter
--- OUTSIDE RECORDS SUMMARY | 2025-01-01 11:00 | XMS_ITS | Encounter Summary ---
Author Organization [facility] Address [address] [place] [address] Care Team Providers Care Table Assembler Metal Name Role Phone Alan Chanel MD Primary Care Provider Encounter Details Date Type Department Care Team (Late st Contact Info) Description 04/20/2024 Lab Requisition [facility] Lab [address] [place] [address] Ever Reyna MD [address] [place] [id number] Encounter for other general examination Social History [...] AM EST) WBC 3.3(L) 4.8 - 10.8 K/[facility] LAB HEMETOLOGY METHOD 04/20/2024 9:17 AM EST [facility] RBC 4.20(L) 4.50 - 5.50 M/[facility] LAB HEMETOLOGY METHOD 04/20/2024 9:17 AM EST [facility] Hemoglobin 11.7(L) 13.5 - 17.5 g/dL LAB HEMETOLOGY METHOD 04/20/2024 9:[address] [facility] Hematocrit 35.0(L) 42.0 - 54.0 % LAB HEMETOLOGY METHOD 04/20/2024 9:[address] [facility] MCV 83.7 79.0 - 98.0 FL LAB HEMETOLOGY METHOD 04/20/2024 9:[address] [facility] MCH 28.0 27.0 - 32.0 pcg LAB HEMETOLOGY METHOD 04/20/2024 9:[address] [facility] MCHC 33.4 32.0 - 37.0 g/dL LAB HEMETOLOGY METHOD 04/20/2024 9:[address] [facility] RDW 13.3 11.0 - 15.0 % LAB HEMETOLOGY METHOD 04/20/2024 9:[address] [facility] LAB Platelets 437(H) 130 - 400 K/mcL LAB HEMETOLOGY METHOD 04/20/2024 9:[address] [facility] MPV 8.3 7.0 - 11.0 FL LAB HEMETOLOGY METHOD 04/20/2024 9:[address] [facility] NRBC 0.0 <1.0 % LAB HEMETOLOGY METHOD 04/20/2024 9:[address] [facility] NRBC Absolute 0.00 <0.10 K/mcL LAB HEMETOLOGY METHOD 04/20/2024 9:[address] [facility] Blood Venous blood specimen / Unknown Venipuncture / Unknown 04/20/2024 5:20 AM EST 04/20/2024 8:31 AM EST us Ever Reyna MD LAB BLOOD ORDERABLES Final Res ult [facility] LAB [address] [place] [address], * (ABNORMAL) Comprehensive metabolic panel (04/20/2024 5:20 AM EST) Sodium 128(L) 133 - 145 mmol/L LAB CHEMISTRY METHOD 04/20/2024 10:20 AM EST [facility] Potassium 4.0 3.5 - 5.5 mmol/L LAB CHEMISTRY METHOD 04/20/2024 10:[address] [facility] Chloride 90(L) 96 - 110 mmol/L LAB CHEMISTRY METHOD 04/20/2024 10:[address] [facility] CO2 25 21 - 32 mmol/L LAB CHEMISTRY METHOD 04/20/2024 10:[address] [facility] Anion Gap 13(H) 3 - 11 LAB CHEMISTRY METHOD 04/20/2024 10:[address] [facility] Glucose 79 70 - 100 mg/dL LAB CHEMISTRY METHOD 04/20/2024 10:[address] [facility] BUN 11 5 - 25 mg/dL LAB CHEMISTRY METHOD 04/20/2024 10:[address] [facility] Creatinine 0.65(L) 0.70 - 1.30 mg/dL LAB CHEMISTRY METHOD 04/20/2024 10:[address] [facility] eGFR 99 >=60 mL/min/1. 73m2 LAB CHEMISTRY METHOD 04/20/2024 10:[address] [facility] Comment:Calculation based on the Chronic Kidney Disease Epidemiology Collaboration (CKD-EPI) equation refit without adjustment for race. BUN/Creatinine Ratio 16.9 LAB CHEMISTRY METHOD 04/20/2024 10:[address] [facility] Calcium 9.1 8.5 - 10.5 mg/dL LAB CHEMISTRY METHOD 04/20/2024 10:[address] [facility] AST (SGOT) 309(H) 10 - 42 unit/L LAB CHEMISTRY METHOD 04/20/2024 10:[address] [facility] ALT (SGPT) 248(H) 10 - 60 unit/L LAB CHEMISTRY METHOD 04/20/2024 10:[address] [facility] Alkaline Phosphatase 209(H) 42 - 121 unit/L LAB CHEMISTRY METHOD 04/20/2024 10:[address] [facility] Total Protein 6.4 6.0 - 8.0 g/dL LAB CHEMISTRY METHOD 04/20/2024 10:[address] [facility] Albumin 3.1(L) 3.2 - 5.0 g/dL LAB CHEMISTRY METHOD 04/20/2024 10:[address] [facility] Total Bilirubin 0.3 0.0 - 1.4 mg/dL LAB CHEMISTRY METHOD 04/20/2024 10:[address] [facility] Blood Venous blood specimen / Unknown Venipuncture / Unknown 04/20/2024 5:20 AM EST 04/20/2024 8:31 AM EST us Ever Reyna MD LAB BLOOD ORDERABLES Final Res ult [facility] [address] [place] [address], documented in this encounter Visit Diagnoses Diagnosis Encounter for other general examination documented in this encounter Care Teams Table Assembler Metal Relationship Specialty Start Date End Date Alan Chanel MD [address] [place] [address] Dr Orellana [address] [place] PCP - General Internal Medicine 03/12/24 documented as of this encounter
--- OUTSIDE RECORDS SUMMARY | 2025-01-01 11:00 | XMS_ITS | Encounter Summary ---
Author Organization [facility] Address [address] [place] [address] Care Team Providers Care Engineering Clerk Name Role Phone Alan Chanel MD Primary Care Provider Encounter Details Date Type Department Care Team (Late st Contact Info) Description 04/13/2024 Lab Requisition [facility] Lab [address] [facility] [employer] [place] [address] Ever Reyna MD [address] [place] [phone] Encounter for other general examination Social History [...] LAB CHEMISTRY METHOD 04/13/2024 1:06 PM EST [facility] Potassium 4.0 3.5 - 5.5 mmol/L LAB CHEMISTRY METHOD 04/13/2024 1:06 PM EST [facility] Chloride 92(L) 96 - 110 mmol/L LAB CHEMISTRY METHOD 04/13/2024 1:06 PM EST [facility] LAB CO2 26 21 - 32 mmol/L LAB CHEMISTRY METHOD 04/13/2024 1:06 PM [facility] LAB Anion Gap 10 3 - 11 LAB CHEMISTRY METHOD 04/13/2024 1:06 PM [facility] LAB Glucose 59(L) 70 - 100 mg/dL LAB CHEMISTRY METHOD 04/13/2024 1:06 PM [facility] LAB BUN 17 5 - 25 mg/dL LAB CHEMISTRY METHOD 04/13/2024 1:06 PM [facility] LAB Creatinine 0.82 0.70 - 1.30 mg/dL LAB CHEMISTRY METHOD 04/13/2024 1:06 PM [facility] LAB eGFR 92 >=60 mL/min/1. 73m2 LAB CHEMISTRY METHOD 04/13/2024 1:06 PM [facility] LAB Comment:Calculation based on the Chronic Kidney Disease Epidemiology Collaboration (CKD-EPI) equation refit without adjustment for race. BUN/Creatinine Ratio 20.7 LAB CHEMISTRY METHOD 04/13/2024 1:06 PM [facility] LAB Calcium 9.9 8.5 - 10.5 mg/dL LAB CHEMISTRY METHOD 04/13/2024 1:06 PM [facility] LAB Blood Venous blood specimen / Unknown Venipuncture / Unknown 04/13/2024 5:20 AM EST 04/13/2024 11:02 AM EST us Ever Reyna MD LAB BLOOD ORDERABLES Final Res ult [facility] LAB [address] [place] [address], documented in this encounter Visit Diagnoses Diagnosis Encounter for other general examination documented in this encounter Care Teams Engineering Clerk Relationship Specialty Start Date End Date Alan Chanel MD [address] [place] [address] Reyna [address] [place] PCP - General Internal Medicine 03/12/24 documented as of this encounter
--- OUTSIDE RECORDS SUMMARY | 2025-01-01 11:00 | XMS_ITS | Encounter Summary ---
Author Organization [facility] Address [address] [place] [address] Care Team Providers Care Towel Weaver Name Role Phone Alan Chanel MD Primary Care Provider [phone] Encounter Details Date Type Department Care Team (Late st Contact Info) Description 04/12/2024 Lab Requisition [facility] - Main Lab [address] [facility] [place] [address] Ever Reyna MD [address] [place] [address] Encounter for other general examination Social History [...] AM EST) WBC 6.1 4.8 - 10.8 K/[facility] LAB HEMETOLOGY METHOD 04/12/2024 10:32 AM [place] [...] Res ult [facility] LAB [address] [place] [address], [place] [phone] * (ABNORMAL) Magnesium (04/12/2024 7:35 AM EST) Magnesium 1.7(L) 1.9 - 2.6 mg/dL LAB CHEMISTRY METHOD 04/12/2024 10:55 AM EST [facility] LAB Blood Venous blood specimen / Unknown Venipuncture / Unknown 04/12/2024 7:35 AM EST 04/12/2024 10:02 AM EST Ever Reyna MD LAB BLOOD ORDERABLES Final Res ult Performing Organization Address [facility]/ZIP Co de Phone Number [facility] LAB [address] [place] [address], [place] [phone] * (ABNORMAL) Comprehensive metabolic panel (04/12/2024 7:35 [facility] Comment:Calculation based on the Chronic Kidney Disease Epidemiology Collaboration (CKD-EPI) equation refit without adjustment for race. BUN/Creatinine Ratio 23.5 LAB [...] LAB BLOOD ORDERABLES Final Res ult [facility] [address] [place] [address], documented in this encounter Visit Diagnoses Diagnosis Encounter for other general examination documented in this encounter Care Teams Towel Weaver Relationship Specialty Start Date End Date Alan Chanel MD [address] [place] [address] Dr [address] [place], [place] PCP - General Internal Medicine 03/12/24 documented as of this encounter
--- OUTSIDE RECORDS SUMMARY | 2025-01-01 11:00 | XMS_ITS | Encounter Summary ---
Author Organization [facility] Address [address] [place] [address] Care Team Providers Care Traffic Control Flagger Name Role Phone Alan Chanel MD Primary Care Provider [phone] Encounter Details Date Type Department Care Team (Late st Contact Info) Description 08/01/2024 Lab Requisition [facility] Lab [address] [place] [address] Kenny Malave MD [address] [facility] [address] [place], [address] Essential (primary) hypertension Social History Tobacco [...] LAB CHEMISTRY METHOD 08/03/2024 12:13 PM EDT [facility] Potassium 4.5 3.5 - 5.5 mmol/L LAB CHEMISTRY METHOD 08/03/2024 12:13 PM EDT [facility] Chloride 96 96 - 110 mmol/L LAB CHEMISTRY METHOD 08/03/2024 12:13 PM [facility] CO2 26 21 - 32 mmol/L LAB CHEMISTRY METHOD 08/03/2024 12:13 PM [facility] LAB Anion Gap 9 3 - 11 LAB CHEMISTRY METHOD 08/03/2024 12:13 PM [facility] LAB Glucose 70 70 - 100 mg/dL LAB CHEMISTRY METHOD 08/03/2024 12:13 PM [facility] BUN 20 5 - 25 mg/dL LAB CHEMISTRY METHOD 08/03/2024 12:13 PM [facility] LAB Creatinine 0.55 0.50 - 1.10 mg/dL LAB CHEMISTRY METHOD 08/03/2024 12:13 PM [facility] LAB eGFR 96 >=60 mL/min/1. 73m2 LAB CHEMISTRY METHOD 08/03/2024 12:13 PM [facility] LAB Comment:Calculation based on the Chronic Kidney Disease Epidemiology Collaboration (CKD-EPI) equation refit without adjustment for race. BUN/Creatinine Ratio 36.4 LAB CHEMISTRY METHOD 08/03/2024 12:13 PM [facility] LAB Calcium 9.7 8.5 - 10.5 mg/dL LAB CHEMISTRY METHOD 08/03/2024 12:13 PM [facility] AST (SGOT) 26 10 - 42 unit/L LAB CHEMISTRY METHOD 08/03/2024 12:13 PM [facility] ALT (SGPT) 21 10 - 60 unit/L LAB CHEMISTRY METHOD 08/03/2024 12:13 PM [facility] Alkaline Phosphatase 84 42 - 121 unit/L LAB CHEMISTRY METHOD 08/03/2024 12:13 PM [facility] Total Protein 7.0 6.0 - 8.0 g/dL LAB CHEMISTRY METHOD 08/03/2024 12:13 PM [facility] Albumin 3.4 3.2 - 5.0 g/dL LAB CHEMISTRY METHOD 08/03/2024 12:13 PM EDT [facility] Total Bilirubin 0.3 0.0 - 1.4 mg/dL LAB CHEMISTRY METHOD 08/03/2024 12:13 PM T [facility] Blood Venous blood specimen / Unknown Venipuncture / Unknown 08/03/2024 5:38 AM EDT 08/03/2024 10:24 AM EDT us Kenny Malave MD LAB BLOOD ORDERABLES Final Resul t [facility] LAB [address] [place] [address], * (ABNORMAL) Complete blood count (08/03/2024 5:38 AM EDT) WBC 4.2(L) 4.8 - 10.8 K/mcL LAB HEMETOLOGY METHOD 08/03/2024 11:18 AM [facility] RBC 3.70(L) 3.80 - 4.80 M/mcL LAB HEMETOLOGY METHOD 08/03/2024 11:18 AM [facility] Hemoglobin 10.5(L) 11.5 - 16.0 g/dL LAB HEMETOLOGY METHOD 08/03/2024 11:18 AM [facility] LAB Hematocrit 31.9(L) 35.0 - 47.0 % LAB HEMETOLOGY METHOD 08/03/2024 11:18 AM [facility] LAB MCV 86.4 79.0 - 98.0 FL LAB HEMETOLOGY METHOD 08/03/2024 11:18 AM [facility] LAB MCH 28.5 27.0 - 32.0 pcg LAB HEMETOLOGY METHOD 08/03/2024 11:18 AM [facility] LAB MCHC 32.9 32.0 - 37.0 g/dL LAB HEMETOLOGY METHOD 08/03/2024 11:18 AM EDT [facility] LAB RDW 15.3(H) 11.0 - 15.0 % LAB HEMETOLOGY METHOD 08/03/2024 11:18 AM EDT [facility] LAB Platelets 409(H) 130 - 400 K/mcL LAB HEMETOLOGY METHOD 08/03/2024 11:18 AM EDT [facility] LAB MPV 8.3 7.0 - 11.0 FL LAB HEMETOLOGY METHOD 08/03/2024 11:18 AM EDT [facility] NRBC 0.0 <1.0 % LAB HEMETOLOGY METHOD 08/03/2024 11:18 AM EDT [facility] LAB NRBC Absolute 0.00 <0.10 K/mcL LAB HEMETOLOGY METHOD 08/03/2024 11:18 AM EDT [facility] LAB Blood Venous blood specimen / Unknown Venipuncture / Unknown 08/03/2024 5:38 AM EDT 08/03/2024 10:24 AM EDT us Kenny Malave MD LAB BLOOD ORDERABLES Final Resul t [facility] [address] [place] [address], documented in this encounter Visit Diagnoses Diagnosis Essential (primary) hypertension Unspecified essential hypertension documented in this encounter Care Teams Traffic Control Flagger Relationship Specialty Start Date End Date Alan Chanel MD [address] [place] [address] Dr [address] [facility] MAGEN Kruger PCP - General Internal Medicine 03/12/24 documented as of this encounter
--- OUTSIDE RECORDS SUMMARY | 2025-01-01 11:01 | XMS_ITS | Encounter Summary ---
Author Organization [facility] Address [address] [place] [address] Care Team Providers Care Assistant Distribution Manager Name Role Phone Alan Chanel MD Primary Care Provider Encounter Details Date Type Department Care Team (Late st Contact Info) Description 04/15/2024 Lab Requisition [facility] - Main Lab 299 [facility] [place] [address] Ever Reyna MD [address] [place] [address] Encounter for other general examination Social History [...] LAB CHEMISTRY METHOD 04/15/2024 11:04 AM EST [facility] Potassium 4.4 3.5 - 5.5 mmol/L LAB CHEMISTRY METHOD 04/15/2024 11:04 AM EST [facility] Chloride 96 96 - 110 mmol/L LAB CHEMISTRY METHOD 04/15/2024 11:04 AM EST [facility] LAB CO2 25 21 - 32 mmol/L LAB CHEMISTRY METHOD 04/15/2024 11:04 AM [facility] LAB Anion Gap 9 3 - 11 LAB CHEMISTRY METHOD 04/15/2024 11:04 AM [facility] LAB Glucose 78 70 - 100 mg/dL LAB CHEMISTRY METHOD 04/15/2024 11:04 AM [facility] LAB BUN 11 5 - 25 mg/dL LAB CHEMISTRY METHOD 04/15/2024 11:04 AM [facility] LAB Creatinine 0.84 0.70 - 1.30 mg/dL LAB CHEMISTRY METHOD 04/15/2024 11:04 AM [facility] LAB eGFR 92 >=60 mL/min/1. 73m2 LAB CHEMISTRY METHOD 04/15/2024 11:04 AM [facility] LAB Comment:Calculation based on the Chronic Kidney Disease Epidemiology Collaboration (CKD-EPI) equation refit without adjustment for race. BUN/Creatinine Ratio 13.1 LAB CHEMISTRY METHOD 04/15/2024 11:04 AM [facility] LAB Calcium 9.3 8.5 - 10.5 mg/dL LAB CHEMISTRY METHOD 04/15/2024 11:04 AM [facility] LAB Blood Venous blood specimen / Unknown Venipuncture / Unknown 04/15/2024 6:06 AM EST 04/15/2024 9:57 AM EST us Ever Reyna MD LAB BLOOD ORDERABLES Final Res ult [facility] [address] [place] [address], documented in this encounter Visit Diagnoses Diagnosis Encounter for other general examination documented in this encounter Care Teams Assistant Distribution Manager Relationship Specialty Start Date End Date Alan Chanel MD [address] [place] [address] Reyna [address] [place] PCP - General Internal Medicine 03/12/24 documented as of this encounter
--- OUTSIDE RECORDS SUMMARY | 2025-01-01 11:01 | XMS_ITS | Encounter Summary ---
Author Organization [facility] Address [address] [place] [address] Care Team Providers Care Sales And Service Representative Name Role Phone Alan Chanel MD Primary Care Provider Encounter Details Date Type Department Care Team (Late st Contact Info) Description 07/13/2024 Lab Requisition [facility] - Main Lab [address] [facility] [place] [address] Kenny Malave MD [address] [facility] [address] [place], [address] Anemia, unspecified; Chronic obstructive pulmonary disease, [...] mg/dL LAB CHEMISTRY METHOD 07/14/2024 9:15 AM [facility] LAB Blood Venous blood specimen / Unknown Venipuncture / Unknown 07/14/2024 5:07 AM EDT 07/14/2024 7:45 AM EDT us Kenny Malave MD LAB BLOOD ORDERABLES Final Resul t [facility] [address] [place] [address], [place] [phone] * (ABNORMAL) Comprehensive metabolic panel (07/14/2024 5:07 AM EDT) [facility] Sodium 130(L) 133 - 145 mmol/L LAB CHEMISTRY METHOD 07/14/2024 9:15 AM [facility] Potassium 4.6 3.5 - 5.5 mmol/L LAB CHEMISTRY METHOD 07/14/2024 9:15 AM [facility] Chloride 95(L) 96 - 110 mmol/L LAB CHEMISTRY METHOD 07/14/2024 9:15 AM [facility] LAB CO2 27 21 - 32 mmol/L LAB CHEMISTRY METHOD 07/14/2024 9:15 AM [facility] LAB Anion Gap 8 3 - 11 LAB CHEMISTRY METHOD 07/14/2024 9:15 AM [facility] LAB Glucose 79 70 - 100 mg/dL LAB CHEMISTRY METHOD 07/14/2024 9:15 AM [facility] BUN 20 5 - 25 mg/dL LAB CHEMISTRY METHOD 07/14/2024 9:15 AM [facility] Creatinine 0.63 0.50 - 1.10 mg/dL LAB CHEMISTRY METHOD 07/14/2024 9:15 AM [facility] LAB eGFR 93 >=60 mL/min/1. 73m2 LAB CHEMISTRY METHOD 07/14/2024 9:15 AM [facility] LAB Comment:Calculation based on the Chronic Kidney Disease Epidemiology Collaboration (CKD-EPI) equation refit without adjustment for race. BUN/Creatinine Ratio 31.7 LAB CHEMISTRY METHOD 07/14/2024 9:15 AM [facility] Calcium 9.8 8.5 - 10.5 mg/dL LAB CHEMISTRY METHOD 07/14/2024 9:15 AM [facility] LAB AST (SGOT) 23 10 - 42 unit/L LAB CHEMISTRY METHOD 07/14/2024 9:15 AM [facility] LAB ALT (SGPT) 22 10 - 60 unit/L LAB CHEMISTRY METHOD 07/14/2024 9:15 AM [facility] LAB Alkaline Phosphatase 76 42 - 121 unit/L LAB CHEMISTRY METHOD 07/14/2024 9:15 AM [facility] Total Protein 7.3 6.0 - 8.0 g/dL LAB CHEMISTRY METHOD 07/14/2024 9:15 AM [facility] Albumin 3.7 3.2 - 5.0 g/dL LAB CHEMISTRY METHOD 07/14/2024 9:15 AM [facility] Total Bilirubin 0.3 0.0 - 1.4 mg/dL LAB CHEMISTRY METHOD 07/14/2024 9:15 AM [facility] Blood Venous blood specimen / Unknown Venipuncture / Unknown 07/14/2024 5:07 AM EDT 07/14/2024 7:45 AM EDT us Kenny Malave MD LAB BLOOD ORDERABLES Final Resul t [facility] [address] [place] [address], [place] [phone] * (ABNORMAL) Complete blood count (07/14/2024 5:07 AM EDT) WBC 3.9(L) 4.8 - 10.8 K/mcL LAB HEMETOLOGY METHOD 07/14/2024 8:49 AM [facility] RBC 3.90 3.80 - 4.80 M/mcL LAB HEMETOLOGY METHOD 07/14/2024 8:49 AM [facility] Hemoglobin 11.2(L) 11.5 - 16.0 g/dL LAB HEMETOLOGY METHOD 07/14/2024 8:49 AM [facility] LAB Hematocrit 33.5(L) 35.0 - 47.0 % LAB HEMETOLOGY METHOD 07/14/2024 8:49 AM [facility] LAB MCV 85.2 79.0 - 98.0 FL LAB HEMETOLOGY METHOD 07/14/2024 8:49 AM [facility] LAB MCH 28.5 27.0 - 32.0 pcg LAB HEMETOLOGY METHOD 07/14/2024 8:49 AM [facility] LAB MCHC 33.4 32.0 - 37.0 g/dL LAB HEMETOLOGY METHOD 07/14/2024 8:49 AM [facility] LAB RDW 17.1(H) 11.0 - 15.0 % LAB HEMETOLOGY METHOD 07/14/2024 8:49 AM [facility] LAB Platelets 539(H) 130 - 400 K/[facility] LAB HEMETOLOGY METHOD 07/14/2024 8:49 AM [facility] LAB MPV 8.2 7.0 - 11.0 FL LAB HEMETOLOGY METHOD 07/14/2024 8:49 AM [facility] LAB NRBC 0.0 <1.0 % LAB HEMETOLOGY METHOD 07/14/2024 8:49 AM [facility] LAB NRBC Absolute 0.00 <0.10 K/[facility] LAB HEMETOLOGY METHOD 07/14/2024 8:49 AM EDT [facility] LAB Blood Venous blood specimen / Unknown Venipuncture / Unknown 07/14/2024 5:07 AM EDT 07/14/2024 7:45 AM EDT us Kenny Malave MD LAB BLOOD ORDERABLES Final Resul t [facility] [address] [place] [address], documented in this encounter Visit Diagnoses Diagnosis Anemia, unspecified Chronic obstructive pulmonary disease, unspecified (CMS/HCC V24, CMS/HCC V28) documented in this encounter Care Teams Sales And Service Representative Relationship Specialty Start Date End Date Alan Chanel MD [address] [place] [address] Dr Orellana [address] [place], [place] PCP - General Internal Medicine 03/12/24 documented as of this encounter
--- OUTSIDE RECORDS SUMMARY | 2025-01-01 11:01 | XMS_ITS | Encounter Summary ---
Author Organization [facility] Address [address] [place] [address] Care Team Providers Care Cane Piler Name Role Phone Alan Chanel MD Primary Care Provider [phone] Encounter Details Date Type Department Care Team (Late st Contact Info) Description 08/21/[address] [facility] [address] [place] [address] Kenny Malave MD 38 [facility] [address] [place], [address] Essential (primary) hypertension Social History [...] Associated Diagnosis Comments COMPLETE BLOOD COUNT Routine 08/24/2024 7:53 AM EDT Essential (primary) hypertension COMPREHENSIVE METABOLIC PANEL Routine 08/24/2024 7:53 AM EDT Essential (primary) hypertension documented in this encounter Results * (ABNORMAL) Comprehensive metabolic panel (08/24/2024 7:53 AM EDT) Sodium 130(L) 133 - 145 mmol/L LAB CHEMISTRY METHOD 08/24/2024 12:37 PM EDT [facility] Potassium 4.5 3.5 - 5.5 mmol/L LAB CHEMISTRY METHOD 08/24/2024 12:37 PM EDT [facility] Chloride 97 96 - 110 mmol/L LAB CHEMISTRY METHOD 08/24/2024 12:[address] [facility] CO2 26 21 - 32 mmol/L LAB CHEMISTRY METHOD 08/24/2024 12:[address] [facility] Anion Gap 7 3 - 11 LAB CHEMISTRY METHOD 08/24/2024 12:[address] [facility] Glucose 76 70 - 100 mg/dL LAB CHEMISTRY METHOD 08/24/2024 12:[address] [facility] BUN 19 5 - 25 mg/dL LAB CHEMISTRY METHOD 08/24/2024 12:[address] [facility] Creatinine 0.62 0.50 - 1.10 mg/dL LAB CHEMISTRY METHOD 08/24/2024 12:[address] [facility] LAB eGFR 93 >=60 mL/min/1. 73m2 LAB CHEMISTRY METHOD 08/24/2024 12:[address] [facility] LAB Comment:Calculation based on the Chronic Kidney Disease Epidemiology Collaboration (CKD-EPI) equation refit without adjustment for race. BUN/Creatinine Ratio 30.6 LAB CHEMISTRY METHOD 08/24/2024 12:[address] [facility] Calcium 10.0 8.5 - 10.5 mg/dL LAB CHEMISTRY METHOD 08/24/2024 12:[address] [facility] AST (SGOT) 24 10 - 42 unit/L LAB CHEMISTRY METHOD 08/24/2024 12:[address] [facility] ALT (SGPT) 20 10 - 60 unit/L LAB CHEMISTRY METHOD 08/24/2024 12:[address] [facility] Alkaline Phosphatase 86 42 - 121 unit/L LAB CHEMISTRY METHOD 08/24/2024 12:[address] [facility] Total Protein 7.2 6.0 - 8.0 g/dL LAB CHEMISTRY METHOD 08/24/2024 12:[address] [facility] Albumin 3.3 3.2 - 5.0 g/dL LAB CHEMISTRY METHOD 08/24/2024 12:37 PM EDT [facility] Total Bilirubin 0.2 0.0 - 1.4 mg/dL LAB CHEMISTRY METHOD 08/24/2024 12:[address] [facility] Blood Venous blood specimen / Unknown Venipuncture / Unknown 08/24/2024 7:53 AM EDT 08/24/2024 10:00 AM EDT us Kenny Malave MD LAB BLOOD ORDERABLES Final Resul t [facility] [address] [place] [address], * (ABNORMAL) Complete blood count (08/24/2024 7:53 AM EDT) WBC 4.2(L) 4.8 - 10.8 K/mcL LAB HEMETOLOGY METHOD 08/24/2024 11:[address] [facility] RBC 3.70(L) 3.80 - 4.80 M/mcL LAB HEMETOLOGY METHOD 08/24/2024 11:[address] [facility] Hemoglobin 10.3(L) 11.5 - 16.0 g/dL LAB HEMETOLOGY METHOD 08/24/2024 11:[address] [facility] Hematocrit 31.5(L) 35.0 - 47.0 % LAB HEMETOLOGY METHOD 08/24/2024 11:[address] [facility] MCV 85.8 79.0 - 98.0 FL LAB HEMETOLOGY METHOD 08/24/2024 11:[address] [facility] MCH 28.1 27.0 - 32.0 pcg LAB HEMETOLOGY METHOD 08/24/2024 11:[address] [facility] MCHC 32.7 32.0 - 37.0 g/dL LAB HEMETOLOGY METHOD 08/24/2024 11:05 AM EDT [facility] RDW 13.7 11.0 - 15.0 % LAB HEMETOLOGY METHOD 08/24/2024 11:05 AM EDT [facility] Platelets 397 130 - 400 K/mcL LAB HEMETOLOGY METHOD 08/24/2024 11:05 AM EDT [facility] MPV 8.2 7.0 - 11.0 FL LAB HEMETOLOGY METHOD 08/24/2024 11:05 AM EDT [facility] NRBC 0.0 <1.0 % LAB HEMETOLOGY METHOD 08/24/2024 11:05 AM EDT [facility] NRBC Absolute 0.00 <0.10 K/mcL LAB HEMETOLOGY METHOD 08/24/2024 11:05 AM EDT [facility] Blood Venous blood specimen / Unknown Venipuncture / Unknown 08/24/2024 7:53 AM EDT 08/24/2024 10:00 AM EDT us Kenny Malave MD LAB BLOOD ORDERABLES Final Resul t [facility] [address] [place] [address], documented in this encounter Visit Diagnoses Diagnosis Essential (primary) hypertension Unspecified essential hypertension documented in this encounter Care Teams Cane Piler Relationship Specialty Start Date End Date Alan Chanel MD [address] [place] [address] Dr Reyna Kruger [place] PCP - General Internal Medicine 03/12/24 documented as of this encounter
--- OUTSIDE RECORDS SUMMARY | 2025-01-01 11:01 | XMS_ITS | Encounter Summary ---
Author Organization [facility] Address [address] [place] [address] Care Team Providers Care Grill Attendant Name Role Phone Alan Chanel MD Primary Care Provider Encounter Details Date Type Department Care Team (Late st Contact Info) Description 08/09/2024 Lab Requisition [facility] Lab [address] [place] [address] Kenny Malave MD 38 [facility] [address] [place], [address] Essential (primary) hypertension Social History Tobacco [...] LAB CHEMISTRY METHOD 08/10/2024 12:52 PM EDT [facility] Potassium 4.5 3.5 - 5.5 mmol/L LAB CHEMISTRY METHOD 08/10/2024 12:52 PM EDT [facility] Chloride 99 96 - 110 mmol/L LAB CHEMISTRY METHOD 08/10/2024 12:52 PM [facility] CO2 27 21 - 32 mmol/L LAB CHEMISTRY METHOD 08/10/2024 12:52 PM [facility] Anion Gap 5 3 - 11 LAB CHEMISTRY METHOD 08/10/2024 12:52 PM [facility] Glucose 64(L) 70 - 100 mg/dL LAB CHEMISTRY METHOD 08/10/2024 12:52 PM [facility] BUN 22 5 - 25 mg/dL LAB CHEMISTRY METHOD 08/10/2024 12:52 PM [facility] Creatinine 0.62 0.50 - 1.10 mg/dL LAB CHEMISTRY METHOD 08/10/2024 12:52 PM [facility] eGFR 94 >=60 mL/min/1. 73m2 LAB CHEMISTRY METHOD 08/10/2024 12:52 PM [facility] Comment:Calculation based on the Chronic Kidney Disease Epidemiology Collaboration (CKD-EPI) equation refit without adjustment for race. BUN/Creatinine Ratio 35.5 LAB CHEMISTRY METHOD 08/10/2024 12:52 PM [facility] Calcium 9.6 8.5 - 10.5 mg/dL LAB CHEMISTRY METHOD 08/10/2024 12:52 PM [facility] AST (SGOT) 25 10 - 42 unit/L LAB CHEMISTRY METHOD 08/10/2024 12:52 PM [facility] ALT (SGPT) 19 10 - 60 unit/L LAB CHEMISTRY METHOD 08/10/2024 12:52 PM [facility] Alkaline Phosphatase 81 42 - 121 unit/L LAB CHEMISTRY METHOD 08/10/2024 12:52 PM [facility] Total Protein 7.2 6.0 - 8.0 g/dL LAB CHEMISTRY METHOD 08/10/2024 12:52 PM [facility] Albumin 3.6 3.2 - 5.0 g/dL LAB CHEMISTRY METHOD 08/10/2024 12:52 PM EDT [facility] Total Bilirubin 0.3 0.0 - 1.4 mg/dL LAB CHEMISTRY METHOD 08/10/2024 12:52 PM EDT [facility] Blood Venous blood specimen / Unknown Venipuncture / Unknown 08/10/2024 6:24 AM EDT 08/10/2024 11:12 AM EDT us Kenny Malave MD LAB BLOOD ORDERABLES Final Resul t [facility] [address] [place] [address], [place] [phone] * (ABNORMAL) Complete blood count (08/10/2024 6:24 AM EDT) WBC 3.9(L) 4.8 - 10.8 K/mcL LAB HEMETOLOGY METHOD 08/10/2024 12:28 PM [facility] RBC 3.80 3.80 - 4.80 M/mcL LAB HEMETOLOGY METHOD 08/10/2024 12:28 PM [facility] Hemoglobin 11.0(L) 11.5 - 16.0 g/dL LAB HEMETOLOGY METHOD 08/10/2024 12:28 PM [facility] Hematocrit 32.7(L) 35.0 - 47.0 % LAB HEMETOLOGY METHOD 08/10/2024 12:28 PM EDT [facility] MCV 85.2 79.0 - 98.0 FL LAB HEMETOLOGY METHOD 08/10/2024 12:28 PM [facility] MCH 28.6 27.0 - 32.0 pcg LAB HEMETOLOGY METHOD 08/10/2024 12:28 PM [facility] MCHC 33.6 32.0 - 37.0 g/dL LAB HEMETOLOGY METHOD 08/10/2024 12:28 PM EDT [facility] RDW 14.6 11.0 - 15.0 % LAB HEMETOLOGY METHOD 08/10/2024 12:28 PM EDT [facility] Platelets 434(H) 130 - 400 K/mcL LAB HEMETOLOGY METHOD 08/10/2024 12:28 PM EDT [facility] MPV 8.2 7.0 - 11.0 FL LAB HEMETOLOGY METHOD 08/10/2024 12:28 PM EDT [facility] NRBC 0.0 <1.0 % LAB HEMETOLOGY METHOD 08/10/2024 12:28 PM EDT [facility] NRBC Absolute 0.00 <0.10 K/mcL LAB HEMETOLOGY METHOD 08/10/2024 12:28 PM EDT [facility] Blood Venous blood specimen / Unknown Venipuncture / Unknown 08/10/2024 6:24 AM EDT 08/10/2024 11:12 AM EDT us Kenny Malave MD LAB BLOOD ORDERABLES Final Resul t [facility] [address] [place] [address], documented in this encounter Visit Diagnoses Diagnosis Essential (primary) hypertension Unspecified essential hypertension documented in this encounter Care Teams Grill Attendant Relationship Specialty Start Date End Date Alan Chanel MD [address] [facility] [address] Reyna Kruger [place] PCP - General Internal Medicine 03/12/24 documented as of this encounter
--- OUTSIDE RECORDS SUMMARY | 2025-01-01 11:01 | XMS_ITS | Encounter Summary ---
Author Organization [facility] Address [address] [place] [address] Care Team Providers Care Kindergartners Helper Name Role Phone Alan Chanel MD Primary Care Provider [phone] Encounter Details Date Type Department Care Team (Late st Contact Info) Description 07/20/2024 Lab Requisition [facility] [address] [place] [address] Kenny Malave MD 38 [facility] [address] [place], [address] Essential (primary) hypertension Social History Tobacco [...] mmol/L LAB CHEMISTRY METHOD 07/20/2024 11:53 AM [facility] CO2 25 21 - 32 mmol/L LAB CHEMISTRY METHOD 07/20/2024 11:53 AM [facility] Anion Gap 9 3 - 11 LAB CHEMISTRY METHOD 07/20/2024 11:53 AM [facility] Glucose 64(L) 70 - 100 mg/dL LAB CHEMISTRY METHOD 07/20/2024 11:53 AM [facility] BUN 19 5 - 25 mg/dL LAB CHEMISTRY METHOD 07/20/2024 11:53 AM [facility] Creatinine 0.61 0.50 - 1.10 mg/dL LAB CHEMISTRY METHOD 07/20/2024 11:53 AM [facility] LAB eGFR 94 >=60 mL/min/1. 73m2 LAB CHEMISTRY METHOD 07/20/2024 11:53 AM [facility] LAB Comment:Calculation based on the Chronic Kidney Disease Epidemiology Collaboration (CKD-EPI) equation refit without adjustment for race. BUN/Creatinine Ratio 31.1 LAB CHEMISTRY METHOD 07/20/2024 11:53 AM [facility] Calcium 9.4 8.5 - 10.5 mg/dL LAB CHEMISTRY METHOD 07/20/2024 11:53 AM [facility] AST (SGOT) 22 10 - 42 unit/L LAB CHEMISTRY METHOD 07/20/2024 11:53 AM [facility] ALT (SGPT) 18 10 - 60 unit/L LAB CHEMISTRY METHOD 07/20/2024 11:53 AM [facility] Alkaline Phosphatase 80 42 - 121 unit/L LAB CHEMISTRY METHOD 07/20/2024 11:53 AM [facility] Total Protein 7.2 6.0 - 8.0 g/dL LAB CHEMISTRY METHOD 07/20/2024 11:53 AM [facility] Albumin 3.7 3.2 - 5.0 g/dL LAB CHEMISTRY METHOD 07/20/2024 11:53 AM EDT [facility] Total Bilirubin 0.3 0.0 - 1.4 mg/dL LAB CHEMISTRY METHOD 07/20/2024 11:53 AM EDT [facility] Blood Venous blood specimen / Unknown Venipuncture / Unknown 07/20/2024 6:14 AM EDT 07/20/2024 10:31 AM EDT us Kenny Malave MD LAB BLOOD ORDERABLES Final Resul t [facility] [address] [place] [address], [place] [phone] * (ABNORMAL) Complete blood count (07/20/2024 6:14 AM EDT) WBC 5.3 4.8 - 10.8 K/mcL LAB HEMETOLOGY METHOD 07/20/2024 11:31 AM EDT [facility] RBC 3.70(L) 3.80 - 4.80 M/mcL LAB HEMETOLOGY METHOD 07/20/2024 11:31 AM T [facility] Hemoglobin 10.7(L) 11.5 - 16.0 g/dL LAB HEMETOLOGY METHOD 07/20/2024 11:31 AM EDT [facility] Hematocrit 32.1(L) 35.0 - 47.0 % LAB HEMETOLOGY METHOD 07/20/2024 11:31 AM EDT [facility] MCV 85.8 79.0 - 98.0 FL LAB HEMETOLOGY METHOD 07/20[facility]24 [facility] MCH 28.6 27.0 - 32.0 pcg LAB HEMETOLOGY METHOD 07/20/2024 11:31 AM EDT [facility] MCHC 33.3 32.0 - 37.0 g/dL [...] t [facility] [address] [place] [address], documented in this encounter Visit Diagnoses Diagnosis Essential (primary) hypertension Unspecified essential hypertension documented in this encounter Care Teams Kindergartners Helper Relationship Specialty Start Date End Date Alan Chanel MD [address] [place] [address] Dr Reyna Kruger [place] PCP - General Internal Medicine 03/12/24 documented as of this encounter
--- OUTSIDE RECORDS SUMMARY | 2025-01-01 11:01 | XMS_ITS | Encounter Summary ---
Author Organization [facility] Address [address] [place] [address] Care Team Providers Care Referral Nurse Name Role Phone Alan Chanel MD Primary Care Provider [phone] Encounter Details Date Type Department Care Team (Late st Contact Info) Description 07/25/2024 Lab Requisition [facility] Lab [address] [place] [address] Kenny Malave MD 38 [facility] [address] [place], [address] Essential (primary) hypertension Social History Tobacco [...] LAB CHEMISTRY METHOD 07/27/2024 12:18 PM EDT [facility] Potassium 4.8 3.5 - 5.5 mmol/L LAB CHEMISTRY METHOD 07/27/2024 12:18 PM EDT [facility] Chloride 96 96 - 110 mmol/L LAB CHEMISTRY METHOD 07/27/2024 12:18 PM [facility] CO2 26 21 - 32 mmol/L LAB CHEMISTRY METHOD 07/27/2024 12:18 PM [facility] Anion Gap 7 3 - 11 LAB CHEMISTRY METHOD 07/27/2024 12:18 PM [facility] Glucose 81 70 - 100 mg/dL LAB CHEMISTRY METHOD 07/27/2024 12:18 PM [facility] BUN 20 5 - 25 mg/dL LAB CHEMISTRY METHOD 07/27/2024 12:18 PM [facility] Creatinine 0.66 0.50 - 1.10 mg/dL LAB CHEMISTRY METHOD 07/27/2024 12:18 PM [facility] eGFR 92 >=60 mL/min/1. 73m2 LAB CHEMISTRY METHOD 07/27/2024 12:18 PM [facility] Comment:Calculation based on the Chronic Kidney Disease Epidemiology Collaboration (CKD-EPI) equation refit without adjustment for race. BUN/Creatinine Ratio 30.3 LAB CHEMISTRY METHOD 07/27/2024 12:18 PM [facility] Calcium 9.6 8.5 - 10.5 mg/dL LAB CHEMISTRY METHOD 07/27/2024 12:18 PM [facility] AST (SGOT) 23 10 - 42 unit/L LAB CHEMISTRY METHOD 07/27/2024 12:18 PM [facility] ALT (SGPT) 19 10 - 60 unit/L LAB CHEMISTRY METHOD 07/27/2024 12:18 PM [facility] Alkaline Phosphatase 85 42 - 121 unit/L LAB CHEMISTRY METHOD 07/27/2024 12:18 PM [facility] Total Protein 7.2 6.0 - 8.0 g/dL LAB CHEMISTRY METHOD 07/27/2024 12:18 PM [facility] Albumin 3.6 3.2 - 5.0 g/dL LAB CHEMISTRY METHOD 07/27/2024 12:18 PM EDT [facility] Total Bilirubin 0.3 0.0 - 1.4 mg/dL LAB CHEMISTRY METHOD 07/27/2024 12:18 PM EDT [facility] Blood Venous blood specimen / Unknown Venipuncture / Unknown 07/27/2024 6:21 AM EDT 07/27/2024 11:11 AM EDT us Kenny Malave MD LAB BLOOD ORDERABLES Final Resul t [facility] [address] [place] [address], * (ABNORMAL) Complete blood count (07/27/2024 6:21 AM EDT) WBC 3.9(L) 4.8 - 10.8 K/mcL LAB HEMETOLOGY METHOD 07/27/2024 11:56 AM [facility] RBC 3.80 3.80 - 4.80 M/mcL LAB HEMETOLOGY METHOD 07/27/2024 11:56 AM [facility] Hemoglobin 10.9(L) 11.5 - 16.0 g/dL LAB HEMETOLOGY METHOD 07/27/2024 11:56 AM [facility] Hematocrit 32.0(L) 35.0 - 47.0 % LAB HEMETOLOGY METHOD 07/27/2024 11:56 AM [facility] MCV 84.7 79.0 - 98.0 FL LAB HEMETOLOGY METHOD 07/27/2024 11:56 AM [facility] MCH 28.8 27.0 - 32.0 pcg LAB HEMETOLOGY METHOD 07/27/2024 11:56 AM [facility] MCHC 34.1 32.0 - 37.0 g/dL LAB HEMETOLOGY METHOD 07/27/2024 11:56 AM EDT [facility] RDW 15.9(H) 11.0 - 15.0 % LAB HEMETOLOGY METHOD 07/27/2024 11:56 AM EDT [facility] Platelets 423(H) 130 - 400 K/mcL LAB HEMETOLOGY METHOD 07/27/2024 11:56 AM EDT [facility] MPV 8.2 7.0 - 11.0 FL LAB HEMETOLOGY METHOD 07/27/2024 11:56 AM EDT [facility] NRBC 0.0 <1.0 % LAB HEMETOLOGY METHOD 07/27/2024 11:56 AM EDT [facility] NRBC Absolute 0.00 <0.10 K/mcL LAB HEMETOLOGY METHOD 07/27/2024 11:56 AM EDT [facility] Blood Venous blood specimen / Unknown Venipuncture / Unknown 07/27/2024 6:21 AM EDT 07/27/2024 11:11 AM EDT us Kenny Malave MD LAB BLOOD ORDERABLES Final Resul t [facility] [address] [place] [address], documented in this encounter Visit Diagnoses Diagnosis Essential (primary) hypertension Unspecified essential hypertension documented in this encounter Care Teams Referral Nurse Relationship Specialty Start Date End Date Alan Chanel MD [address] [facility] [address] Reyna Kruger [place] PCP - General Internal Medicine 03/12/24 documented as of this encounter
--- OUTSIDE RECORDS SUMMARY | 2025-01-01 11:01 | XMS_ITS | Encounter Summary ---
Author Organization [facility] [address] Address [address] [place] [address] Care Team Providers Care Government Teacher Name Role Phone Alan Chanel MD Primary Care Provider Encounter Details Date Type Department Care Team (Late st Contact Info) Description 04/22/2024 Lab Requisition [facility] Lab [address] [facility] [place] [address] Ever Reyna MD [address] [place] [address] Encounter for other general examination Social History [...] mmol/L LAB CHEMISTRY METHOD 04/22/2024 11:08 AM [facility] Anion Gap 10 3 - 11 LAB CHEMISTRY METHOD 04/22/2024 11:08 AM [facility] Glucose 77 70 - 100 mg/dL LAB CHEMISTRY METHOD 04/22/2024 11:08 AM [facility] BUN 10 5 - 25 mg/dL LAB CHEMISTRY METHOD 04/22/2024 11:08 AM [facility] Creatinine 0.55(L) 0.70 - 1.30 mg/dL LAB CHEMISTRY METHOD 04/22/2024 11:08 AM [facility] eGFR 104 >=60 mL/min/1. 73m2 LAB CHEMISTRY METHOD 04/22/2024 11:08 AM [facility] Comment:Calculation based on the Chronic Kidney Disease Epidemiology Collaboration (CKD-EPI) equation refit without adjustment for race. BUN/Creatinine Ratio 18.2 LAB CHEMISTRY METHOD 04/22/2024 11:08 AM [facility] Calcium 8.8 8.5 - 10.5 mg/dL LAB CHEMISTRY METHOD 04/22/2024 11:08 AM [facility] Blood Venous blood specimen / Unknown Venipuncture / Unknown 04/22/2024 5:40 AM EST 04/22/2024 10:03 AM EST us Ever Reyna MD LAB BLOOD ORDERABLES Final Res ult [facility] [address] [place] [address], documented in this encounter Visit Diagnoses Diagnosis Encounter for other general examination documented in this encounter Care Teams Government Teacher Relationship Specialty Start Date End Date Alan Chanel MD [address] [place] [address] Reyna [address] [place], [place] PCP - General Internal Medicine 03/12/24 documented as of this encounter
--- OUTSIDE RECORDS SUMMARY | 2025-01-01 11:01 | XMS_ITS | Encounter Summary ---
Author Organization [facility] Address [address] [place] [address] Care Team Providers Care Nursing Home Manager Name Role Phone Alan Chanel MD Primary Care Provider Encounter Details Date Type Department Care Team (Late st Contact Info) Description 07/08/2024 Lab Requisition [facility] - Main Lab [address] [place] [address] Kenny Malave MD 38 [facility] [address] [place], [address] Anemia, unspecified; Chronic obstructive pulmonary disease, [...] mg/dL LAB CHEMISTRY METHOD 07/08/2024 2:39 PM [facility] Blood Venous blood specimen / Unknown Venipuncture / Unknown 07/08/2024 6:23 AM EST 07/08/2024 10:53 AM EST us Kenny Malave MD LAB BLOOD ORDERABLES Final Resul t [facility] [address] [place] [address], [place] [phone] * (ABNORMAL) Comprehensive metabolic panel (07/08/2024 6:23 AM EST) [facility] Sodium 132(L) 133 - 145 mmol/L LAB CHEMISTRY METHOD 07/08/2024 2:39 PM [facility] Potassium 4.7 3.5 - 5.5 mmol/L LAB CHEMISTRY METHOD 07/08/2024 2:39 PM [facility] Chloride 98 96 - 110 mmol/L LAB CHEMISTRY METHOD 07/08/2024 2:39 PM [facility] CO2 23 21 - 32 mmol/L LAB CHEMISTRY METHOD 07/08/2024 2:39 PM [facility] Anion Gap 11 3 - 11 LAB CHEMISTRY METHOD 07/08/2024 2:39 PM [facility] Glucose 72 70 - 100 mg/dL LAB CHEMISTRY METHOD 07/08/2024 2:39 PM [facility] BUN 16 5 - 25 mg/dL LAB CHEMISTRY METHOD 07/08/2024 2:39 PM [facility] Creatinine 0.61 0.50 - 1.10 mg/dL LAB CHEMISTRY METHOD 07/08/2024 2:39 PM [facility] eGFR 94 >=60 mL/min/1. 73m2 LAB CHEMISTRY METHOD 07/08/2024 2:39 PM [facility] Comment:Calculation based on the Chronic Kidney Disease Epidemiology Collaboration (CKD-EPI) equation refit without adjustment for race. BUN/Creatinine Ratio 26.2 LAB CHEMISTRY METHOD 07/08/2024 2:39 PM [facility] Calcium 9.5 8.5 - 10.5 mg/dL LAB CHEMISTRY METHOD 07/08/2024 2:39 PM [facility] AST (SGOT) 28 10 - 42 unit/L LAB CHEMISTRY METHOD 07/08/2024 2:39 PM [facility] ALT (SGPT) 22 10 - 60 unit/L LAB CHEMISTRY METHOD 07/08/2024 2:39 PM [facility] Alkaline Phosphatase 79 42 - 121 unit/L LAB CHEMISTRY METHOD 07/08/2024 2:39 PM [facility] Total Protein 7.2 6.0 - 8.0 g/dL LAB CHEMISTRY METHOD 07/08/2024 2:39 PM [facility] Albumin 3.5 3.2 - 5.0 g/dL LAB CHEMISTRY METHOD 07/08/2024 2:39 PM [facility] Total Bilirubin 0.2 0.0 - 1.4 mg/dL LAB CHEMISTRY METHOD 07/08/2024 2:39 PM [facility] Blood Venous blood specimen / Unknown Venipuncture / Unknown 07/08/2024 6:23 AM EST 07/08/2024 10:53 AM EST us Kenny Malave MD LAB BLOOD ORDERABLES Final Resul t [facility] [address] [place] [address], * (ABNORMAL) Complete blood count (07/08/2024 6:23 AM EST) WBC 6.5 4.8 - 10.8 K/mcL LAB HEMETOLOGY METHOD 07/08/2024 11:24 AM [facility] RBC 3.90 3.80 - 4.80 M/mcL LAB HEMETOLOGY METHOD 07/08/2024 11:24 AM [facility] Hemoglobin 11.1(L) 11.5 - 16.0 g/dL LAB HEMETOLOGY METHOD 07/08/2024 11:24 AM [facility] Hematocrit 33.8(L) 35.0 - 47.0 % LAB HEMETOLOGY METHOD 07/08/2024 11:24 AM [facility] MCV 86.7 79.0 - 98.0 FL LAB HEMETOLOGY METHOD 07/08/2024 11:24 AM [facility] MCH 28.5 27.0 - 32.0 pcg LAB HEMETOLOGY METHOD 07/08/2024 11:24 AM [facility] MCHC 32.8 32.0 - 37.0 g/dL LAB HEMETOLOGY METHOD 07/08/2024 11:24 AM [facility] RDW 17.4(H) 11.0 - 15.0 % LAB HEMETOLOGY METHOD 07/08/2024 11:24 AM [facility] Platelets 500(H) 130 - 400 K/mcL LAB HEMETOLOGY METHOD 07/08/2024 11:24 AM [facility] MPV 8.2 7.0 - 11.0 FL LAB HEMETOLOGY METHOD 07/08/2024 11:24 AM [facility] NRBC 0.0 <1.0 % LAB HEMETOLOGY METHOD 07/08/2024 11:24 AM [facility] NRBC Absolute 0.00 <0.10 K/mcL LAB HEMETOLOGY METHOD 07/08/2024 11:24 AM [facility] Blood Venous blood specimen / Unknown Venipuncture / Unknown 07/08/2024 6:23 AM EST 07/08/2024 10:53 AM EST us Kenny Malave MD LAB BLOOD ORDERABLES Final Resul t [facility] [address] [place] [address], [place] [phone] documented in this encounter Visit Diagnoses Diagnosis Anemia, unspecified Chronic obstructive pulmonary disease, unspecified (CMS/HCC V24, CMS/HCC V28) documented in this encounter Care Teams Nursing Home Manager Relationship Specialty Start Date End Date Alan Chanel MD [address] [place] [address] Dr [address] [place], [place] PCP - General Internal Medicine 03/12/24 documented as of this encounter
--- OUTSIDE RECORDS SUMMARY | 2025-01-01 11:01 | XMS_ITS | Encounter Summary ---
Author Organization [facility] Address [address] [place] [address] Care Team Providers Care Instrumental Teacher Name Role Phone Alan Chanel MD Primary Care Provider Encounter Details Date Type Department Care Team (Late st Contact Info) Description 07/14/2024 Lab Requisition [facility] [address] [place] [address] Kenny Malave MD 38 [facility] [address] [place], [address] Chronic kidney disease, unspecified Social History [...] LAB CHEMISTRY METHOD 07/15/2024 10:42 AM EDT [facility] Potassium 4.6 3.5 - 5.5 mmol/L LAB CHEMISTRY METHOD 07/15/2024 10:42 AM EDT [facility] Chloride 96 96 - 110 mmol/L LAB CHEMISTRY METHOD 07/15/2024 10:42 AM [facility] CO2 24 21 - 32 mmol/L LAB CHEMISTRY METHOD 07/15/2024 10:42 AM [facility] Anion Gap 11 3 - 11 LAB CHEMISTRY METHOD 07/15/2024 10:42 AM [facility] Glucose 76 70 - 100 mg/dL LAB CHEMISTRY METHOD 07/15/2024 10:42 AM [facility] BUN 20 5 - 25 mg/dL LAB CHEMISTRY METHOD 07/15/2024 10:42 AM [facility] Creatinine 0.71 0.50 - 1.10 mg/dL LAB CHEMISTRY METHOD 07/15/2024 10:42 AM [facility] eGFR 89 >=60 mL/min/1. 73m2 LAB CHEMISTRY METHOD 07/15/2024 10:42 AM [facility] Comment:Calculation based on the Chronic Kidney Disease Epidemiology Collaboration (CKD-EPI) equation refit without adjustment for race. BUN/Creatinine Ratio 28.2 LAB CHEMISTRY METHOD 07/15/2024 10:42 AM [facility] Calcium 9.5 8.5 - 10.5 mg/dL LAB CHEMISTRY METHOD 07/15/2024 10:42 AM [facility] AST (SGOT) 27 10 - 42 unit/L LAB CHEMISTRY METHOD 07/15/2024 10:42 AM [facility] ALT (SGPT) 22 10 - 60 unit/L LAB CHEMISTRY METHOD 07/15/2024 10:42 AM [facility] Alkaline Phosphatase 72 42 - 121 unit/L LAB CHEMISTRY METHOD 07/15/2024 10:42 AM [facility] Total Protein 7.4 6.0 - 8.0 g/dL LAB CHEMISTRY METHOD 07/15/2024 10:42 AM [facility] Albumin 3.7 3.2 - 5.0 g/dL LAB CHEMISTRY METHOD 07/15/2024 10:42 AM EDT [facility] Total Bilirubin 0.3 0.0 - 1.4 mg/dL LAB CHEMISTRY METHOD 07/15/2024 10:42 AM T [facility] Blood Venous blood specimen / Unknown Venipuncture / Unknown 07/15/2024 6:23 AM EDT 07/15/2024 9:55 AM EDT us Kenny Malave MD LAB BLOOD ORDERABLES Final Resul t [facility] [address] [place] [address], [place] [phone] * (ABNORMAL) Complete blood count (07/15/2024 6:23 AM EDT) WBC 4.5(L) 4.8 - 10.8 K/mcL LAB HEMETOLOGY METHOD 07/15/2024 10:17 AM [facility] RBC 3.80 3.80 - 4.80 M/mcL LAB HEMETOLOGY METHOD 07/15/2024 10:17 AM [facility] Hemoglobin 10.8(L) 11.5 - 16.0 g/dL LAB HEMETOLOGY METHOD 07/15/2024 10:17 AM [facility] Hematocrit 32.2(L) 35.0 - 47.0 % LAB HEMETOLOGY METHOD 07/15/2024 10:17 AM [facility] MCV 85.0 79.0 - 98.0 FL LAB HEMETOLOGY METHOD 07/15/2024 10:17 AM [facility] MCH 28.5 27.0 - 32.0 pcg LAB HEMETOLOGY METHOD 07/15/2024 10:17 AM [facility] MCHC 33.5 32.0 - 37.0 g/dL LAB HEMETOLOGY METHOD 07/15/2024 10:17 AM EDT [facility] RDW 17.1(H) 11.0 - 15.0 % LAB HEMETOLOGY METHOD 07/15/2024 10:17 AM EDT [facility] Platelets 516(H) 130 - 400 K/mcL LAB HEMETOLOGY METHOD 07/15/2024 10:17 AM EDT [facility] MPV 8.2 7.0 - 11.0 FL LAB HEMETOLOGY METHOD 07/15/2024 10:17 AM EDT [facility] NRBC 0.0 <1.0 % LAB HEMETOLOGY METHOD 07/15/2024 10:17 AM EDT [facility] NRBC Absolute 0.00 <0.10 K/mcL LAB HEMETOLOGY METHOD 07/15/2024 10:17 AM EDT [facility] Blood Venous blood specimen / Unknown Venipuncture / Unknown 07/15/2024 6:23 AM EDT 07/15/2024 9:55 AM EDT us Kenny Malave MD LAB BLOOD ORDERABLES Final Resul t [facility] [address] [place] [address], documented in this encounter Visit Diagnoses Diagnosis Chronic kidney disease, unspecified documented in this encounter Care Teams Instrumental Teacher Relationship Specialty Start Date End Date Alan Chanel MD [address] [facility] [address] [place] PCP - General Internal Medicine 03/12/24 documented as of this encounter
--- OUTSIDE RECORDS SUMMARY | 2025-01-01 11:01 | XMS_ITS | Encounter Summary ---
Author Organization [facility] Address [address] [place] [address] Care Team Providers Care Cotton Header Name Role Phone Alan Chanel MD Primary Care Provider [phone] Encounter Details Date Type Department Care Team (Late st Contact Info) Description 04/14/2024 Lab Requisition [facility] - Main Lab [address] [facility] [place] [address] Ever Reyna MD [address] [place] [id number] Encounter for other general examination Social History [...] LAB CHEMISTRY METHOD 04/14/2024 10:46 AM EST [facility] Urine Urine specimen obtained by clean catch procedure / Unknown Non-blood Collection / Unknown 04/14/2024 3:12 AM EST 04/14/2024 9:00 AM EST us Ever Reyna MD LAB URINE ORDERABLES Final Res ult Performing Organization Address City/[facility]/ZIP Co de Phone Number [facility] [address] [place] [address], [place] [phone] * (ABNORMAL) Osmolality, urine (04/14/2024 3:12 AM EST) Osmolality, Urine 258(L) 300 - 1,300 mOsm/kg LAB CHEMISTRY METHOD 04/14/2024 11:28 AM EST [facility] Urine Urine specimen obtained by clean catch procedure / Unknown Non-blood Collection / Unknown 04/14/2024 3:12 AM EST 04/14/2024 9:00 AM EST us Ever Reyna MD LAB URINE ORDERABLES Final Res ult Performing Organization Address [facility] Co de Phone Number [facility] [address] [place] [address], [place] [phone] documented in this encounter Visit Diagnoses Diagnosis Encounter for other general examination documented in this encounter Care Teams Cotton Header Relationship Specialty Start Date End Date Alan Chanel MD [address] [place] [address] [address] [place] PCP - General Internal Medicine 03/12/24 documented as of this encounter
--- OUTSIDE RECORDS SUMMARY | 2025-01-01 11:01 | XMS_ITS | Encounter Summary ---
Author Organization Address [address] [place] [address] Care Team Providers Care Personal Computer Network Analyst Name Role Phone Alan Chanel MD Primary Care Provider Encounter Details Date Type Department Care Team (Late st Contact Info) Description 04/17/2024 Lab Requisition [facility] [address] [place] [address] Ever Reyna MD [address] [place] [id number] Encounter for other general examination Social History [...] AM EST) WBC 4.4(L) 4.8 - 10.8 K/[facility] LAB HEMETOLOGY METHOD 04/17/2024 11:22 AM EST [facility] RBC 4.20(L) 4.50 - 5.50 M/[facility] LAB HEMETOLOGY METHOD 04/17/2024 11:22 AM EST [facility] Hemoglobin 11.8(L) 13.5 - 17.5 g/dL LAB HEMETOLOGY METHOD 04/17/2024 11:[address] [facility] Hematocrit 35.2(L) 42.0 - 54.0 % LAB HEMETOLOGY METHOD 04/17/2024 11:[address] [facility] MCV 84.2 79.0 - 98.0 FL LAB HEMETOLOGY METHOD 04/17/2024 11:[address] [facility] MCH 28.2 27.0 - 32.0 pcg LAB HEMETOLOGY METHOD 04/17/2024 11:[address] [facility] MCHC 33.5 32.0 - 37.0 g/dL LAB HEMETOLOGY METHOD 04/17/2024 11:[address] [facility] RDW 13.4 11.0 - 15.0 % LAB HEMETOLOGY METHOD 04/17/2024 11:[address] [facility] Platelets 467(H) 130 - 400 K/mcL LAB HEMETOLOGY METHOD 04/17/2024 11:[address] [facility] MPV 8.5 7.0 - 11.0 FL LAB HEMETOLOGY METHOD 04/17/2024 11:[address] [facility] NRBC 0.0 <1.0 % LAB HEMETOLOGY METHOD 04/17/2024 11:[address] [facility] NRBC Absolute 0.00 <0.10 K/mcL LAB HEMETOLOGY METHOD 04/17/2024 11:[address] [facility] Blood Venous blood specimen / Unknown Venipuncture / Unknown 04/17/2024 6:06 AM EST 04/17/2024 10:27 AM EST us Ever Reyna MD LAB BLOOD ORDERABLES Final Res ult [facility] [address] [place] [address], * (ABNORMAL) Comprehensive metabolic panel (04/17/2024 6:06 AM EST) Sodium 132(L) 133 - 145 mmol/L LAB CHEMISTRY METHOD 04/17/2024 12:[address] [facility] Potassium 4.5 3.5 - 5.5 mmol/L LAB CHEMISTRY METHOD 04/17/2024 12:[address] [facility] Chloride 96 96 - 110 mmol/L LAB CHEMISTRY METHOD 04/17/2024 12:[address] [facility] CO2 27 21 - 32 mmol/L LAB CHEMISTRY METHOD 04/17/2024 12:[address] [facility] Anion Gap 9 3 - 11 LAB CHEMISTRY METHOD 04/17/2024 12:[address] [facility] Glucose 88 70 - 100 mg/dL LAB CHEMISTRY METHOD 04/17/2024 12:[address] [facility] BUN 8 5 - 25 mg/dL LAB CHEMISTRY METHOD 04/17/2024 12:[address] [facility] Creatinine 0.65(L) 0.70 - 1.30 mg/dL LAB CHEMISTRY METHOD 04/17/2024 12:[address] [facility] eGFR 99 >=60 mL/min/1. 73m2 LAB CHEMISTRY METHOD 04/17/2024 12:[address] [facility] Comment:Calculation based on the Chronic Kidney Disease Epidemiology Collaboration (CKD-EPI) equation refit without adjustment for race. BUN/Creatinine Ratio 12.3 LAB CHEMISTRY METHOD 04/17/2024 12:[address] [facility] Calcium 9.1 8.5 - 10.5 mg/dL LAB CHEMISTRY METHOD 04/17/2024 12:[address] [facility] AST (SGOT) 107(H) 10 - 42 unit/L LAB CHEMISTRY METHOD 04/17/2024 12:[address] [facility] ALT (SGPT) 71(H) 10 - 60 unit/L LAB CHEMISTRY METHOD 04/17/2024 12:[address] [facility] Alkaline Phosphatase 175(H) 42 - 121 unit/L LAB CHEMISTRY METHOD 04/17/2024 12:[address] [facility] Total Protein 6.6 6.0 - 8.0 g/dL LAB CHEMISTRY METHOD 04/17/2024 12:[address] [facility] Albumin 3.2 3.2 - 5.0 g/dL LAB CHEMISTRY METHOD 04/17/2024 12:[address] [facility] Total Bilirubin 0.3 0.0 - 1.4 mg/dL LAB CHEMISTRY METHOD 04/17/2024 12:[address] [facility] Blood Venous blood specimen / Unknown Venipuncture / Unknown 04/17/2024 6:06 AM EST 04/17/2024 10:27 AM EST us Ever Reyna MD LAB BLOOD ORDERABLES Final Res ult [facility] [address] [place] [address], documented in this encounter Visit Diagnoses Diagnosis Encounter for other general examination documented in this encounter Care Teams Personal Computer Network Analyst Relationship Specialty Start Date End Date Alan Chanel MD [address] [place] [address] Dr Reyna Kru[place] PCP - General Internal Medicine 03/12/24 documented as of this encounter
--- OUTSIDE RECORDS SUMMARY | 2025-01-01 11:01 | XMS_ITS | Clinical Summary ---
Author Organization [address] [facility] Address [address] [place] [address] Phone Care Team Providers Care Altitude Chamber Technician Name Role Phone Alan Chanel MD Primary Care Provider [phone] Allergies No known active allergies Medications albuterol [...] 04/14/2024 COPD (chronic obstructive pu lmonary disease) ([facility] V24, [facility] V28) 04/14/2024 Benign essential hypertension 04/14/2024 Lumbar degenerative disc disease 04/14/2024 Social History Tobacco Use Types Packs/Day Years [...] Panel) 02/28/2024 Colorectal Cancer Screening: Colonoscopy 02/28/2024 Falls Risk Assessment 02/28/2024 Hepatitis C Screening 02/28/2024 Medicare Annual Wellness Visit 02/28/2024 Osteoporosis Screening (Bone Density Screening) 02/28/2024 Social Influencers of Health Screening 02/28/2024 Depression Screening 05/06/2024 RSV Immunization Adult Patients (1 - 1-dose 75+ series) 2024 Influenza Vaccine (#1) 2025 Hypertension/CHF/CAD Annual BMP Blood Test 09/07/2025 09/07/2024, 08/31/2024, 08/24/2024, Additional history exists HIB Vaccines Aged Out [...] Associated Diagnosis Comments COMPREHENSIVE METABOLIC PANEL Routine 09/07/2024 6:40 AM EDT Essential (primary) hypertension from Last 3 Months or Most Recently Relevant to Health Maintenance Results * (ABNORMAL) Comprehensive metabolic panel (09/07/2024 6:40 AM EDT) Sodium 128(L) 133 - 145 mmol/L LAB CHEMISTRY METHOD 09/07/2024 11:[address] [facility] Potassium 4.2 3.5 - 5.5 mmol/L LAB CHEMISTRY METHOD 09/07/2024 11:[address] [facility] Chloride 93(L) 96 - 110 mmol/L LAB CHEMISTRY METHOD 09/07/2024 11:[address] [facility] CO2 25 21 - 32 mmol/L LAB CHEMISTRY METHOD 09/07/2024 11:[address] [facility] Anion Gap 10 3 - 11 LAB CHEMISTRY METHOD 09/07/2024 11:[address] [facility] Glucose 87 70 - 100 mg/dL LAB CHEMISTRY METHOD 09/07/2024 11:[address] [facility] BUN 20 5 - 25 mg/dL LAB CHEMISTRY METHOD 09/07/2024 11:[address] [facility] Creatinine 0.66 0.50 - 1.10 mg/dL LAB CHEMISTRY METHOD 09/07/2024 11:[address] [facility] eGFR 92 >=60 mL/min/1. 73m2 LAB CHEMISTRY METHOD 09/07/2024 11:[address] [facility] Comment:Calculation based on the Chronic Kidney Disease Epidemiology Collaboration (CKD-EPI) equation refit without adjustment for race. BUN/Creatinine Ratio 30.3 LAB CHEMISTRY METHOD 09/07/2024 11:[address] [facility] Calcium 9.6 8.5 - 10.5 mg/dL LAB CHEMISTRY METHOD 09/07/2024 11:[address] [facility] AST (SGOT) 26 10 - 42 unit/L LAB CHEMISTRY METHOD 09/07/2024 11:[address] [facility] ALT (SGPT) 26 10 - 60 unit/L LAB CHEMISTRY METHOD 09/07/2024 11:[address] [facility] Alkaline Phosphatase 103 42 - 121 unit/L LAB CHEMISTRY METHOD 09/07/2024 11:[address] [facility] Total Protein 7.3 6.0 - 8.0 g/dL LAB CHEMISTRY METHOD 09/07/2024 11:[address] [facility] Albumin 3.5 3.2 - 5.0 g/dL LAB CHEMISTRY METHOD 09/07/2024 11:[address] [facility] Total Bilirubin 0.2 0.0 - 1.4 mg/dL LAB CHEMISTRY METHOD 09/07/2024 11:[address] [facility] Blood Venous blood specimen / Unknown Venipuncture / Unknown 09/07/2024 6:40 AM EDT 09/07/2024 10:56 AM EDT us Kenny Malave MD LAB BLOOD ORDERABLES Final Resul t [facility] [address] [place] [address], [place] [phone] from Last 3 Months or Most Recently Relevant to Health Maintenance Insurance MEDICARE [place]ICAID - [place] Care Teams Altitude Chamber Technician Relationship Specialty Start Date End Date Alan Chanel MD [address] [place] [address] PCP - General Internal Medicine 03/12/24
--- OUTSIDE RECORDS SUMMARY | 2025-01-01 11:01 | XMS_ITS | Encounter Summary ---
Author Organization [facility] Address [address] [place] [address] Care Team Providers Care Director Agricultural Services Name Role Phone Alan Chanel MD Primary Care Provider Encounter Details Date Type Department Care Team (Late st Contact Info) Description 09/04/2024 Lab Requisition [facility] Lab [address] [place] [address] Kenny Malave MD 38 [facility] [address] [place], [address] Essential (primary) hypertension Social History Tobacco [...] Associated Diagnosis Comments COMPLETE BLOOD COUNT Routine 09/07/2024 6:40 AM EDT Essential (primary) hypertension COMPREHENSIVE METABOLIC PANEL Routine 09/07/2024 6:40 AM EDT Essential (primary) hypertension documented in this encounter Results * (ABNORMAL) Comprehensive metabolic panel (09/07/2024 6:40 AM EDT) Sodium 128(L) 133 - 145 mmol/L LAB CHEMISTRY METHOD 09/07/2024 11:49 AM EDT [facility] Potassium 4.2 3.5 - 5.5 mmol/L LAB CHEMISTRY METHOD 09/07/2024 11:49 AM EDT [facility] Chloride 93(L) 96 - 110 mmol/L LAB CHEMISTRY METHOD 09/07/2024 11:49 AM [facility] CO2 25 21 - 32 mmol/L LAB CHEMISTRY METHOD 09/07/2024 11:49 AM [facility] Anion Gap 10 3 - 11 LAB CHEMISTRY METHOD 09/07/2024 11:49 AM [facility] Glucose 87 70 - 100 mg/dL LAB CHEMISTRY METHOD 09/07/2024 11:49 AM [facility] BUN 20 5 - 25 mg/dL LAB CHEMISTRY METHOD 09/07/2024 11:49 AM [facility] Creatinine 0.66 0.50 - 1.10 mg/dL LAB CHEMISTRY METHOD 09/07/2024 11:49 AM [facility] eGFR 92 >=60 mL/min/1. 73m2 LAB CHEMISTRY METHOD 09/07/2024 11:49 AM [facility] Comment:Calculation based on the Chronic Kidney Disease Epidemiology Collaboration (CKD-EPI) equation refit without adjustment for race. BUN/Creatinine Ratio 30.3 LAB CHEMISTRY METHOD 09/07/2024 11:49 AM [facility] Calcium 9.6 8.5 - 10.5 mg/dL LAB CHEMISTRY METHOD 09/07/2024 11:49 AM [facility] AST (SGOT) 26 10 - 42 unit/L LAB CHEMISTRY METHOD 09/07/2024 11:49 AM [facility] ALT (SGPT) 26 10 - 60 unit/L LAB CHEMISTRY METHOD 09/07/2024 11:49 AM [facility] Alkaline Phosphatase 103 42 - 121 unit/L LAB CHEMISTRY METHOD 09/07/2024 11:49 AM [facility] Total Protein 7.3 6.0 - 8.0 g/dL LAB CHEMISTRY METHOD 09/07/2024 11:49 AM [facility] Albumin 3.5 3.2 - 5.0 g/dL LAB CHEMISTRY METHOD 09/07/2024 11:49 AM EDT [facility] Total Bilirubin 0.2 0.0 - 1.4 mg/dL LAB CHEMISTRY METHOD 09/07[facility]2024 [facility] Blood Venous blood specimen / Unknown Venipuncture / Unknown 09/07/2024 6:40 AM EDT 09/07/2024 10:56 AM EDT us Kenny Malave MD LAB BLOOD ORDERABLES Final Resul t [facility] [address] [place] [address], [place] [phone] * (ABNORMAL) Complete blood count (09/07/2024 6:40 AM EDT) WBC 4.1(L) 4.8 - 10.8 K/mcL LAB HEMETOLOGY METHOD 09/07/2024 11:08 AM [facility] RBC 3.70(L) 3.80 - 4.80 M/mcL LAB HEMETOLOGY METHOD 09/07/2024 11:08 AM [facility] Hemoglobin 10.2(L) 11.5 - 16.0 g/dL LAB HEMETOLOGY METHOD 09/07/2024 11:08 AM [facility] Hematocrit 31.4(L) 35.0 - 47.0 % LAB HEMETOLOGY METHOD 09/07/2024 11:08 AM [facility] MCV 85.3 79.0 - 98.0 FL LAB HEMETOLOGY METHOD 09/07/2024 11:08 AM [facility] MCH 27.7 27.0 - 32.0 pcg LAB HEMETOLOGY METHOD 09/07/2024 11:08 AM [facility] MCHC 32.5 32.0 - 37.0 g/dL LAB HEMETOLOGY METHOD 09/07/2024 11:08 AM EDT [facility] RDW 13.8 11.0 - 15.0 % LAB HEMETOLOGY METHOD 09/07/2024 11:08 AM EDT [facility] Platelets 484(H) 130 - 400 K/mcL LAB HEMETOLOGY METHOD 09/07/2024 11:08 AM EDT [facility] MPV 8.1 7.0 - 11.0 FL LAB HEMETOLOGY METHOD 09/07/2024 11:08 AM EDT [facility] NRBC 0.0 <1.0 % LAB HEMETOLOGY METHOD 09/07/2024 11:08 AM EDT [facility] NRBC Absolute 0.00 <0.10 K/mcL LAB HEMETOLOGY METHOD 09/07/2024 11:08 AM EDT [facility] Blood Venous blood specimen / Unknown Venipuncture / Unknown 09/07/2024 6:40 AM EDT 09/07/2024 10:56 AM EDT us Kenny Malave MD LAB BLOOD ORDERABLES Final Resul t [facility] [address] [place] [address], documented in this encounter Visit Diagnoses Diagnosis Essential (primary) hypertension Unspecified essential hypertension documented in this encounter Care Teams Director Agricultural Services Relationship Specialty Start Date End Date Alan Chanel MD [address] [place] [address] Dr Orellana [facility] MAGEN Kruger PCP - General Internal Medicine 03/12/24 documented as of this encounter
--- OUTSIDE RECORDS SUMMARY | 2025-01-01 11:01 | XMS_ITS | Encounter Summary ---
Author Organization [facility] Address [address] [place] [address] Care Team Providers Care Circuit Rider Name Role Phone Alan Chanel MD Primary Care Provider Encounter Details Date Type Department Care Team (Late st Contact Info) Description 08/26/2024 Lab Requisition [facility] Lab [address] [place] [address] Kenny Malave MD 38 [facility] [address] [place], [address] Essential (primary) hypertension Social History Tobacco [...] Procedure Name Priority Date/Time Associated Diagnosis Comments SEDIMENTATION RATE Routine 08/26/2024 6: 44 AM EDT Essential (primary) hypertension URIC ACID Routine 08/26/2024 6:44 AM EDT Essential (primary) hypertension documented in this encounter Results * (ABNORMAL) Sedimentation rate (08/26/2024 6:44 AM EDT) Sed Rate 86(H) 0 - 30 mm/hr LAB HEMETOLOGY METHOD 08/26/2024 11:58 AM EDT [facility] Blood Venous blood specimen / Unknown Venipuncture / Unknown 08/26/2024 6:44 AM EDT 08/26/2024 10:56 AM EDT us Kenny Malave MD LAB BLOOD ORDERABLES Final Resul t Performing Organization Address City/[facility]/ZIP Co de Phone Number [facility] [address] [place] [address], [place] [phone] * Uric acid (08/26/2024 6:44 AM EDT) Uric Acid 3.1 3.1 - 7.8 mg/dL LAB CHEMISTRY METHOD 08/26/2024 12:[address] [facility] Blood Venous blood specimen / Unknown Venipuncture / Unknown 08/26/2024 6:44 AM EDT 08/26/2024 10:56 AM EDT Kenny Malave MD LAB BLOOD ORDERABLES Final Resul t Performing Organization Address City/[facility] Co de Phone Number [facility] [address] [place] [address], [place] [phone] documented in this encounter Visit Diagnoses Diagnosis Essential (primary) hypertension Unspecified essential hypertension documented in this encounter Care Teams Circuit Rider Relationship Specialty Start Date End Date Alan Chanel MD [address] [place] [address] Dr Orellana [address] MAGEN Kruger PCP - General Internal Medicine 03/12/24 documented as of this encounter
--- OUTSIDE RECORDS SUMMARY | 2025-01-01 11:01 | XMS_ITS | Encounter Summary ---
Author Organization [facility] Address [address] [place] [address] Care Team Providers Care Business Development Executive Name Role Phone Alan Chanel MD Primary Care Provider Encounter Details Date Type Department Care Team (Late st Contact Info) Description 05/11/2024 Lab Requisition [facility] - Main Lab [address] [place] [address] Kenny Malave MD 38 [facility] [address] [place], [address] Essential (primary) hypertension Social History Tobacco [...] LAB CHEMISTRY METHOD 05/12/2024 9:30 AM EST [facility] Potassium 4.0 3.5 - 5.5 mmol/L LAB CHEMISTRY METHOD 05/12/2024 9:30 AM EST [facility] Chloride 101 96 - 110 mmol/L LAB CHEMISTRY METHOD 05/12/2024 9:30 AM [facility] CO2 26 21 - 32 mmol/L LAB CHEMISTRY METHOD 05/12/2024 9:30 AM [facility] Anion Gap 8 3 - 11 LAB CHEMISTRY METHOD 05/12/2024 9:30 AM [facility] Glucose 84 70 - 100 mg/dL LAB CHEMISTRY METHOD 05/12/2024 9:30 AM [facility] BUN 14 5 - 25 mg/dL LAB CHEMISTRY METHOD 05/12/2024 9:30 AM [facility] Creatinine 0.56 0.50 - 1.10 mg/dL LAB CHEMISTRY METHOD 05/12/2024 9:30 AM [facility] eGFR 96 >=60 mL/min/1. 73m2 LAB CHEMISTRY METHOD 05/12/2024 9:30 AM [facility] Comment:Calculation based on the Chronic Kidney Disease Epidemiology Collaboration (CKD-EPI) equation refit without adjustment for race. BUN/Creatinine Ratio 25.0 LAB CHEMISTRY METHOD 05/12/2024 9:30 AM [facility] Calcium 8.5 8.5 - 10.5 mg/dL LAB CHEMISTRY METHOD 05/12/2024 9:30 AM [facility] Blood Venous blood specimen / Unknown Venipuncture / Unknown 05/12/2024 5:47 AM EST 05/12/2024 8:50 AM EST us Kenny Malave MD LAB BLOOD ORDERABLES Final Resul t [facility] [address] [place] [address], * (ABNORMAL) Complete blood count (05/12/2024 5:47 AM EST) WBC 3.6(L) 4.8 - 10.8 K/mcL LAB HEMETOLOGY METHOD 05/12/2024 9:09 AM [facility] RBC 3.70(L) 3.80 - 4.80 M/mcL LAB HEMETOLOGY METHOD 05/12/2024 9:09 AM [facility] Hemoglobin 10.4(L) 11.5 - 16.0 g/dL LAB HEMETOLOGY METHOD 05/12/2024 9:09 AM [facility] Hematocrit 30.8(L) 35.0 - 47.0 % LAB HEMETOLOGY METHOD 05/12/2024 9:09 AM [facility] MCV 84.2 79.0 - 98.0 FL LAB HEMETOLOGY METHOD 05/12/2024 9:09 AM [facility] MCH 28.4 27.0 - 32.0 pcg LAB HEMETOLOGY METHOD 05/12/2024 9:09 AM [facility] MCHC 33.8 32.0 - 37.0 g/dL LAB HEMETOLOGY METHOD 05/12/2024 9:09 AM [facility] RDW 13.5 11.0 - 15.0 % LAB HEMETOLOGY METHOD 05/12/2024 9:09 AM [facility] Platelets 543(H) 130 - 400 K/mcL LAB HEMETOLOGY METHOD 05/12/2024 9:09 AM [facility] MPV 8.3 7.0 - 11.0 FL LAB HEMETOLOGY METHOD 05/12/2024 9:09 AM [facility] NRBC 0.0 <1.0 % LAB HEMETOLOGY METHOD 05/12/2024 9:09 AM [facility] NRBC Absolute 0.00 <0.10 K/mcL LAB HEMETOLOGY METHOD 05/12/2024 9:09 AM [facility] Blood Venous blood specimen / Unknown Venipuncture / Unknown 05/12/2024 5:47 AM EST 05/12/2024 8:50 AM EST us Kenny Malave MD LAB BLOOD ORDERABLES Final Resul t [facility] [address] [place] [address], [place] [phone] documented in this encounter Visit Diagnoses Diagnosis Essential (primary) hypertension Unspecified essential hypertension documented in this encounter Care Teams Business Development Executive Relationship Specialty Start Date End Date Alan Chanel MD [address] [place] [address] Dr [address] [place], [place] PCP - General Internal Medicine 03/12/24 documented as of this encounter
--- OUTSIDE RECORDS SUMMARY | 2025-01-01 11:01 | XMS_ITS | Encounter Summary ---
Author Organization [facility] Address [address] [place] [address] Care Team Providers Care Card Player Name Role Phone Alan Chanel MD Primary Care Provider Encounter Details Date Type Department Care Team (Late st Contact Info) Description 04/28/2024 Lab Requisition [facility] Lab [address] [place] [address] Kenny Malave MD 38 [facility] 204 [place], [address] Essential (primary) hypertension Social History Tobacco [...] mmol/L LAB CHEMISTRY METHOD 04/28/2024 12:11 PM [facility] CO2 25 21 - 32 mmol/L LAB CHEMISTRY METHOD 04/28/2024 12:11 PM [facility] Anion Gap 11 3 - 11 LAB CHEMISTRY METHOD 04/28/2024 12:11 PM [facility] Glucose 81 70 - 100 mg/dL LAB CHEMISTRY METHOD 04/28/2024 12:11 PM [facility] BUN 16 5 - 25 mg/dL LAB CHEMISTRY METHOD 04/28/2024 12:11 PM [facility] Creatinine 0.56(L) 0.70 - 1.30 mg/dL LAB CHEMISTRY METHOD 04/28/2024 12:11 PM [facility] eGFR 103 >=60 mL/min/1. 73m2 LAB CHEMISTRY METHOD 04/28/2024 12:11 PM [facility] Comment:Calculation based on the Chronic Kidney Disease Epidemiology Collaboration (CKD-EPI) equation refit without adjustment for race. BUN/Creatinine Ratio 28.6 LAB CHEMISTRY METHOD 04/28/2024 12:11 PM [facility] Calcium 9.0 8.5 - 10.5 mg/dL LAB CHEMISTRY METHOD 04/28/2024 12:11 PM [facility] AST (SGOT) 31 10 - 42 unit/L LAB CHEMISTRY METHOD 04/28/2024 12:11 PM [facility] ALT (SGPT) 48 10 - 60 unit/L LAB CHEMISTRY METHOD 04/28/2024 12:11 PM [facility] Alkaline Phosphatase 136(H) 42 - 121 unit/L LAB CHEMISTRY METHOD 04/28/2024 12:11 PM [facility] Total Protein 6.4 6.0 - 8.0 g/dL LAB CHEMISTRY METHOD 04/28/2024 12:11 PM [facility] Albumin 2.9(L) 3.2 - 5.0 g/dL LAB CHEMISTRY METHOD 04/28/2024 12:11 PM [facility] Total Bilirubin 0.5 0.0 - 1.4 mg/dL LAB CHEMISTRY METHOD 04/28/2024 12:11 PM [facility] Blood Venous blood specimen / Unknown Venipuncture / Unknown 04/28/2024 6:19 AM EST 04/28/2024 10:16 AM EST us Kenny Malave MD LAB BLOOD ORDERABLES Final Resul t [facility] [address] [place] [address], [place] [phone] * (ABNORMAL) Complete blood count (04/28/2024 6:19 AM EST) WBC 6.8 4.8 - 10.8 K/mcL LAB HEMETOLOGY METHOD 04/28/2024 11:29 AM [facility] RBC 4.10(L) 4.50 - 5.50 M/mcL LAB HEMETOLOGY METHOD 04/28/2024 11:29 AM [facility] Hemoglobin 11.4(L) 13.5 - 17.5 g/dL LAB HEMETOLOGY METHOD 04/28/2024 11:29 AM [facility] Hematocrit 33.6(L) 42.0 - 54.0 % LAB HEMETOLOGY METHOD 04/28/2024 11:29 AM [facility] MCV 81.8 79.0 - 98.0 FL LAB HEMETOLOGY METHOD 04/28/2024 11:29 AM [facility] MCH 27.7 27.0 - 32.0 pcg LAB HEMETOLOGY METHOD 04/28/2024 11:29 AM [facility] MCHC 33.9 32.0 - 37.0 g/dL LAB HEMETOLOGY METHOD 04/28/2024 11:29 AM EST [facility] RDW 13.2 11.0 - 15.0 % LAB HEMETOLOGY METHOD 04/28/2024 11:29 AM EST [facility] Platelets 491(H) 130 - 400 K/mcL LAB HEMETOLOGY METHOD 04/28/2024 11:29 AM [facility] MPV 8.2 7.0 - 11.0 FL LAB HEMETOLOGY METHOD 04/28/2024 11:29 AM EST [facility] NRBC 0.0 <1.0 % LAB HEMETOLOGY METHOD 04/28/2024 11:29 AM [facility] NRBC Absolute 0.00 <0.10 K/mcL LAB HEMETOLOGY METHOD 04/28/2024 11:29 AM [facility] Blood Venous blood specimen / Unknown Venipuncture / Unknown 04/28/2024 6:19 AM EST 04/28/2024 10:16 AM EST us Kenny Malave MD LAB BLOOD ORDERABLES Final Resul t [facility] [address] [place] [address], documented in this encounter Visit Diagnoses Diagnosis Essential (primary) hypertension Unspecified essential hypertension documented in this encounter Care Teams Card Player Relationship Specialty Start Date End Date Alan Chanel MD [address] [place] [address] Dr Reyna Kruger [place] PCP - General Internal Medicine 03/12/24 documented as of this encounter
--- OUTSIDE RECORDS SUMMARY | 2025-01-01 11:01 | XMS_ITS | Encounter Summary ---
Author Organization [facility] Address [address] [place] [address] Care Team Providers Care Citrix Consultant Name Role Phone Alan Chanel MD Primary Care Provider Encounter Details Date Type Department Care Team (Late st Contact Info) Description 05/18/2024 Lab Requisition [facility] - Main Lab [address] [place] [address] Kenny Malave MD 38 [facility] [address] [place], [address] Essential (primary) hypertension Social History Tobacco [...] LAB CHEMISTRY METHOD 05/19/2024 8:54 AM EST [facility] Potassium 3.4(L) 3.5 - 5.5 mmol/L LAB CHEMISTRY METHOD 05/19/2024 8:54 AM EST [facility] Chloride 101 96 - 110 mmol/L LAB CHEMISTRY METHOD 05/19/2024 8:54 AM [facility] CO2 29 21 - 32 mmol/L LAB CHEMISTRY METHOD 05/19/2024 8:54 AM [facility] Anion Gap 4 3 - 11 LAB CHEMISTRY METHOD 05/19/2024 8:54 AM [facility] Glucose 87 70 - 100 mg/dL LAB CHEMISTRY METHOD 05/19/2024 8:54 AM [facility] BUN 15 5 - 25 mg/dL LAB CHEMISTRY METHOD 05/19/2024 8:54 AM [facility] Creatinine 0.60 0.50 - 1.10 mg/dL LAB CHEMISTRY METHOD 05/19/2024 8:54 AM [facility] eGFR 94 >=60 mL/min/1. 73m2 LAB CHEMISTRY METHOD 05/19/2024 8:54 AM [facility] Comment:Calculation based on the Chronic Kidney Disease Epidemiology Collaboration (CKD-EPI) equation refit without adjustment for race. BUN/Creatinine Ratio 25.0 LAB CHEMISTRY METHOD 05/19/2024 8:54 AM [facility] Calcium 9.1 8.5 - 10.5 mg/dL LAB CHEMISTRY METHOD 05/19/2024 8:54 AM [facility] Blood Venous blood specimen / Unknown Venipuncture / Unknown 05/19/2024 6:53 AM EST 05/19/2024 7:53 AM EST us Kenny Malave MD LAB BLOOD ORDERABLES Final Resul t [facility] [address] [place] [address], * (ABNORMAL) Complete blood count (05/19/2024 6:53 AM EST) WBC 5.0 4.8 - 10.8 K/mcL LAB HEMETOLOGY METHOD 05/19/2024 8:33 AM [facility] RBC 4.00 3.80 - 4.80 M/mcL LAB HEMETOLOGY METHOD 05/19/2024 8:33 AM [facility] Hemoglobin 11.0(L) 11.5 - 16.0 g/dL LAB HEMETOLOGY METHOD 05/19/2024 8:33 AM [facility] Hematocrit 33.7(L) 35.0 - 47.0 % LAB HEMETOLOGY METHOD 05/19/2024 8:33 AM [facility] MCV 85.3 79.0 - 98.0 FL LAB HEMETOLOGY METHOD 05/19/2024 8:33 AM [facility] MCH 27.8 27.0 - 32.0 pcg LAB HEMETOLOGY METHOD 05/19/2024 8:33 AM [facility] MCHC 32.6 32.0 - 37.0 g/dL LAB HEMETOLOGY METHOD 05/19/2024 8:33 AM [facility] RDW 15.0 11.0 - 15.0 % LAB HEMETOLOGY METHOD 05/19/2024 8:33 AM [facility] Platelets 527(H) 130 - 400 K/mcL LAB HEMETOLOGY METHOD 05/19/2024 8:33 AM [facility] MPV 8.5 7.0 - 11.0 FL LAB HEMETOLOGY METHOD 05/19/2024 8:33 AM [facility] NRBC 0.0 <1.0 % LAB HEMETOLOGY METHOD 05/19/2024 8:33 AM [facility] NRBC Absolute 0.00 <0.10 K/mcL LAB HEMETOLOGY METHOD 05/19/2024 8:33 AM [facility] Blood Venous blood specimen / Unknown Venipuncture / Unknown 05/19/2024 6:53 AM EST 05/19/2024 7:53 AM EST us Kenny Malave MD LAB BLOOD ORDERABLES Final Resul t [facility] [address] [place] [address], [place] [phone] documented in this encounter Visit Diagnoses Diagnosis Essential (primary) hypertension Unspecified essential hypertension documented in this encounter Care Teams Citrix Consultant Relationship Specialty Start Date End Date Alan Chanel MD [address] [place] [address] Dr [address] [place], [place] PCP - General Internal Medicine 03/12/24 documented as of this encounter
--- OUTSIDE RECORDS SUMMARY | 2025-01-01 11:01 | XMS_ITS | Encounter Summary ---
Author Organization [facility] Address [address] [place] [address] Care Team Providers Care Men'S Locker Room Attendant Name Role Phone Alan Chanel MD Primary Care Provider Encounter Details Date Type Department Care Team (Late st Contact Info) Description 04/14/[address] [facility] - Main Lab [address] [place] [address] Ever Reyna MD [address] [place] [address] Encounter for other general examination Social History [...] LAB CHEMISTRY METHOD 04/14/2024 11:19 AM EST [facility] Blood Venous blood specimen / Unknown Venipuncture / Unknown 04/14/2024 4:35 AM EST 04/14/2024 9:55 AM EST us Ever Reyna MD LAB BLOOD ORDERABLES Final Res ult [facility] [address] [place] [address], [place] [phone] * (ABNORMAL) Basic metabolic panel (04/14/2024 4:35 [...] AM [facility] Comment:Calculation based on the Chronic Kidney Disease Epidemiology Collaboration (CKD-EPI) equation refit without adjustment for race. BUN/Creatinine Ratio 23.3 LAB CHEMISTRY METHOD 04/14/2024 10:39 AM [facility] Calcium 9.4 8.5 - 10.5 mg/dL LAB CHEMISTRY METHOD 04/14/2024 10:39 AM EST [facility] Blood Venous blood specimen / Unknown Venipuncture / Unknown 04/14/2024 4:35 AM EST 04/14/2024 9:55 AM EST us Ever Reyna MD LAB BLOOD ORDERABLES Final Res ult [facility] [address] [place] [address], documented in this encounter Visit Diagnoses Diagnosis Encounter for other general examination documented in this encounter Care Teams Men'S Locker Room Attendant Relationship Specialty Start Date End Date Alan Chanel MD [address] [place] [address] Dr Reyna [address] [place], [place] PCP - General Internal Medicine 03/12/24 documented as of this encounter
--- OUTSIDE RECORDS SUMMARY | 2025-01-01 11:01 | XMS_ITS | Encounter Summary ---
Author Organization [facility] Address [address] [place] [address] Care Team Providers Care Residential Energy Auditor Name Role Phone Alan Chanel MD Primary Care Provider [phone] Encounter Details Date Type Department Care Team (Late st Contact Info) Description 05/04/2024 Lab Requisition [facility] Lab [address] [place] [address] Kenny Malave MD 38 [facility] [address] [place], [address] Essential (primary) hypertension Social History Tobacco [...] LAB CHEMISTRY METHOD 05/05/2024 10:55 AM EST [facility] LAB Potassium 3.8 3.5 - 5.5 mmol/L LAB CHEMISTRY METHOD 05/05/2024 10:55 AM EST [facility] LAB Chloride 95(L) 96 - 110 mmol/L LAB CHEMISTRY METHOD 05/05/2024 10:55 AM [facility] LAB CO2 29 21 - 32 mmol/L LAB CHEMISTRY METHOD 05/05/2024 10:55 AM [facility] LAB Anion Gap 7 3 - 11 LAB CHEMISTRY METHOD 05/05/2024 10:55 AM [facility] LAB Glucose 89 70 - 100 mg/dL LAB CHEMISTRY METHOD 05/05/2024 10:55 AM [facility] LAB BUN 16 5 - 25 mg/dL LAB CHEMISTRY METHOD 05/05/2024 10:55 AM [facility] LAB Creatinine 0.61 0.50 - 1.10 mg/dL LAB CHEMISTRY METHOD 05/05/2024 10:55 AM [facility] LAB eGFR 94 >=60 mL/min/1. 73m2 LAB CHEMISTRY METHOD 05/05/2024 10:55 AM [facility] LAB Comment:Calculation based on the Chronic Kidney Disease Epidemiology Collaboration (CKD-EPI) equation refit without adjustment for race. BUN/Creatinine Ratio 26.2 LAB CHEMISTRY METHOD 05/05/2024 10:55 AM [facility] LAB Calcium 8.9 8.5 - 10.5 mg/dL LAB CHEMISTRY METHOD 05/05/2024 10:55 AM [facility] LAB Blood Venous blood specimen / Unknown Venipuncture / Unknown 05/05/2024 6:32 AM EST 05/05/2024 10:13 AM EST us Kenny Malave MD LAB BLOOD ORDERABLES Final Resul t [facility] LAB [address] [place] [address], * (ABNORMAL) Complete blood count (05/05/2024 6:32 AM EST) WBC 6.4 4.8 - 10.8 K/mcL LAB HEMETOLOGY METHOD 05/05/2024 10:59 AM [facility] LAB RBC 3.90 3.80 - 4.80 M/mcL LAB HEMETOLOGY METHOD 05/05/2024 10:59 AM [facility] LAB Hemoglobin 10.7(L) 11.5 - 16.0 g/dL LAB HEMETOLOGY METHOD 05/05/2024 10:59 AM [facility] LAB Hematocrit 32.7(L) 35.0 - 47.0 % LAB HEMETOLOGY METHOD 05/05/2024 10:59 AM [facility] LAB MCV 84.3 79.0 - 98.0 FL LAB HEMETOLOGY METHOD 05/05/2024 10:59 AM [facility] LAB MCH 27.6 27.0 - 32.0 pcg LAB HEMETOLOGY METHOD 05/05/2024 10:59 AM [facility] LAB MCHC 32.7 32.0 - 37.0 g/dL LAB HEMETOLOGY METHOD 05/05/2024 10:59 AM [facility] LAB RDW 13.2 11.0 - 15.0 % LAB HEMETOLOGY METHOD 05/05/2024 10:59 AM [facility] LAB Platelets 551(H) 130 - 400 K/mcL LAB HEMETOLOGY METHOD 05/05/2024 10:59 AM [facility] LAB MPV 8.5 7.0 - 11.0 FL LAB HEMETOLOGY METHOD 05/05/2024 10:59 AM [facility] LAB NRBC 0.0 <1.0 % LAB HEMETOLOGY METHOD 05/05/2024 10:59 AM [facility] LAB NRBC Absolute 0.00 <0.10 K/mcL LAB HEMETOLOGY METHOD 05/05/2024 10:59 AM [facility] LAB Blood Venous blood specimen / Unknown Venipuncture / Unknown 05/05/2024 6:32 AM EST 05/05/2024 10:14 AM EST us Kenny Malave MD LAB BLOOD ORDERABLES Final Resul t [facility] ([facility]) [facility] LAB [address] [place] [address], documented in this encounter Visit Diagnoses Diagnosis Essential (primary) hypertension Unspecified essential hypertension documented in this encounter Care Teams Residential Energy Auditor Relationship Specialty Start Date End Date Alan Cahnel MD [address] [place] [address] Dr [address] [place], [place] PCP - General Internal Medicine 03/12/24 documented as of this encounter
--- OUTSIDE RECORDS SUMMARY | 2025-01-01 11:01 | XMS_ITS | Encounter Summary ---
Author Organization [facility] Address [address] [place] [address] Care Team Providers Care Welder Fitter Gas Name Role Phone Alan Chanel MD Primary Care Provider [phone] Encounter Details Date Type Department Care Team (Late st Contact Info) Description 04/22/2024 Lab Requisition [facility] - Main Lab [address] [facility] [place] [address] Ever Reyna MD [address] [place] [address] Encounter for other general examination Social History [...] LAB CHEMISTRY METHOD 04/22/2024 11:23 AM EST [facility] Urine Urine specimen obtained by clean catch procedure / Unknown 04/22/2024 4:20 AM EST 04/22/2024 9:49 AM EST us Ever Reyna MD LAB URINE ORDERABLES Final Res ult Performing Organization Address City/[facility]/ZIP Co de Phone Number [facility] LAB [address] [place] [address], [place] [phone] * Sodium, urine, random (04/22/2024 4:20 AM EST) Sodium, Ur 54 mmol/L LAB CHEMISTRY METHOD 04/22/2024 11:29 AM EST [facility] LAB Urine Urine specimen obtained by clean catch procedure / Unknown 04/22/2024 4:20 AM EST 04/22/2024 9:49 AM EST Ever Reyna MD LAB URINE ORDERABLES Final Res ult Performing Organization Address [facility]/ZIP Co de Phone Number [facility] [address] [place] [address], [place] [phone] documented in this encounter Visit Diagnoses Diagnosis Encounter for other general examination documented in this encounter Care Teams Welder Fitter Gas Relationship Specialty Start Date End Date Alan Chanel MD [address] [place] [address] Dr Reyna Kruger [place] PCP - General Internal Medicine 03/12/24 documented as of this encounter
--- OUTSIDE RECORDS SUMMARY | 2025-01-01 11:01 | XMS_ITS | Encounter Summary ---
Author Organization [facility] Address [address] [place] [address] Care Team Providers Care Vacation Guide Name Role Phone Alan Chanel MD Primary Care Provider [phone] Encounter Details Date Type Department Care Team (Late st Contact Info) Description 08/28/2024 Lab Requisition [facility] Lab [address] [place] [address] Kenny Malave MD 38 [facility] [address] [place], [address] Essential (primary) hypertension Social History Tobacco [...] Associated Diagnosis Comments COMPLETE BLOOD COUNT Routine 08/31/2024 7:26 AM EDT Essential (primary) hypertension COMPREHENSIVE METABOLIC PANEL Routine 08/31/2024 7:26 AM EDT Essential (primary) hypertension documented in this encounter Results * (ABNORMAL) Comprehensive metabolic panel (08/31/2024 7:26 AM EDT) Sodium 128(L) 133 - 145 mmol/L LAB CHEMISTRY METHOD 08/31/2024 12:48 PM EDT [facility] LAB Potassium 4.0 3.5 - 5.5 mmol/L LAB CHEMISTRY METHOD 08/31/2024 12:48 PM EDT [facility] LAB Chloride 94(L) 96 - 110 mmol/L LAB CHEMISTRY METHOD 08/31/2024 12:48 PM [facility] LAB CO2 25 21 - 32 mmol/L LAB CHEMISTRY METHOD 08/31/2024 12:48 PM [facility] LAB Anion Gap 9 3 - 11 LAB CHEMISTRY METHOD 08/31/2024 12:48 PM [facility] LAB Glucose 75 70 - 100 mg/dL LAB CHEMISTRY METHOD 08/31/2024 12:48 PM [facility] LAB BUN 21 5 - 25 mg/dL LAB CHEMISTRY METHOD 08/31/2024 12:48 PM [facility] LAB Creatinine 0.57 0.50 - 1.10 mg/dL LAB CHEMISTRY METHOD 08/31/2024 12:48 PM [facility] LAB eGFR 95 >=60 mL/min/1. 73m2 LAB CHEMISTRY METHOD 08/31/2024 12:48 PM [facility] LAB Comment:Calculation based on the Chronic Kidney Disease Epidemiology Collaboration (CKD-EPI) equation refit without adjustment for race. BUN/Creatinine Ratio 36.8 LAB CHEMISTRY METHOD 08/31/2024 12:48 PM [facility] LAB Calcium 9.8 8.5 - 10.5 mg/dL LAB CHEMISTRY METHOD 08/31/2024 12:48 PM [facility] LAB AST (SGOT) 26 10 - 42 unit/L LAB CHEMISTRY METHOD 08/31/2024 12:48 PM [facility] LAB ALT (SGPT) 22 10 - 60 unit/L LAB CHEMISTRY METHOD 08/31/2024 12:48 PM [facility] LAB Alkaline Phosphatase 98 42 - 121 unit/L LAB CHEMISTRY METHOD 08/31/2024 12:48 PM [facility] LAB Total Protein 7.1 6.0 - 8.0 g/dL LAB CHEMISTRY METHOD 08/31/2024 12:48 PM [facility] LAB Albumin 3.4 3.2 - 5.0 g/dL LAB CHEMISTRY METHOD 08/31/2024 12:48 PM EDT [facility] LAB Total Bilirubin 0.2 0.0 - 1.4 mg/dL LAB CHEMISTRY METHOD 08/31/2024 12:48 PM EDT [facility] LAB Blood Venous blood specimen / Unknown Venipuncture / Unknown 08/31/2024 7:26 AM EDT 08/31/2024 10:06 AM EDT us Kenny Malave MD LAB BLOOD ORDERABLES Final Resul t [facility] [address] [place] [address], [place] [phone] * (ABNORMAL) Complete blood count (08/31/2024 7:26 AM EDT) WBC 4.1(L) 4.8 - 10.8 K/mcL LAB HEMETOLOGY METHOD 08/31/2024 11:39 AM [facility] LAB RBC 3.70(L) 3.80 - 4.80 M/mcL LAB HEMETOLOGY METHOD 08/31/2024 11:39 AM [facility] LAB Hemoglobin 10.2(L) 11.5 - 16.0 g/dL LAB HEMETOLOGY METHOD 08/31/2024 11:39 AM [facility] LAB Hematocrit 31.2(L) 35.0 - 47.0 % LAB HEMETOLOGY METHOD 08/31/2024 11:39 AM [facility] LAB MCV 84.6 79.0 - 98.0 FL LAB HEMETOLOGY METHOD 08/31/2024 11:39 AM [facility] LAB MCH 27.6 27.0 - 32.0 pcg LAB HEMETOLOGY METHOD 08/31/2024 11:39 AM [facility] LAB MCHC 32.7 32.0 - 37.0 g/dL LAB HEMETOLOGY METHOD 08/31/2024 11:39 AM EDT [facility] LAB RDW 13.4 11.0 - 15.0 % LAB HEMETOLOGY METHOD 08/31/2024 11:39 AM EDT [facility] LAB Platelets 449(H) 130 - 400 K/mcL LAB HEMETOLOGY METHOD 08/31/2024 11:39 AM EDT [facility] LAB MPV 8.2 7.0 - 11.0 FL LAB HEMETOLOGY METHOD 08/31/2024 11:39 AM EDT [facility] LAB NRBC 0.0 <1.0 % LAB HEMETOLOGY METHOD 08/31/2024 11:39 AM EDT [facility] LAB NRBC Absolute 0.00 <0.10 K/mcL LAB HEMETOLOGY METHOD 08/31/2024 11:39 AM EDT [facility] LAB Blood Venous blood specimen / Unknown Venipuncture / Unknown 08/31/2024 7:26 AM EDT 08/31/2024 10:06 AM EDT us Kenny Malave MD LAB BLOOD ORDERABLES Final Resul t [facility] [address] [place] [address], documented in this encounter Visit Diagnoses Diagnosis Essential (primary) hypertension Unspecified essential hypertension documented in this encounter Care Teams Vacation Guide Relationship Specialty Start Date End Date Alan Chanel MD [address] [place] [address] Dr Orellana [facility] MAGEN Kruger PCP - General Internal Medicine 03/12/24 documented as of this encounter
--- OUTSIDE RECORDS SUMMARY | 2025-01-01 11:01 | XMS_ITS | Encounter Summary ---
Author Organization [facility] Address [address] [place] [address] Care Team Providers Care Television Journalist Name Role Phone Alan Chanel MD Primary Care Provider Encounter Details Date Type Department Care Team (Late st Contact Info) Description 04/21/2024 Lab Requisition [facility] - Main Lab [address] [place] [address] Ever Reyna MD [address] [place] [address] Encounter for other general examination Social History [...] LAB CHEMISTRY METHOD 04/21/2024 10:03 AM EST [facility] ([facility]) [facility] LAB Blood Venous blood specimen / Unknown Venipuncture / Unknown 04/21/2024 6:13 AM EST 04/21/2024 8:46 AM EST us Ever Reyna MD LAB BLOOD ORDERABLES Final Res ult Performing Organization Address [facility]/ZIP Co de Phone Number [facility] LAB [address] [place] [address], [place] [phone] * Amylase (04/21/2024 6:13 AM EST) [facility] Amylase 51 25 - 115 unit/L LAB CHEMISTRY METHOD 04/21/2024 10:03 AM [facility] LAB Blood Venous blood specimen / Unknown Venipuncture / Unknown 04/21/2024 6:13 AM EST 04/21/2024 8:46 AM EST us Ever Reyna MD LAB BLOOD ORDERABLES Final Res ult Performing Organization Address [facility] Co de Phone Number [facility] [address] [place] [address], [place] [phone] * (ABNORMAL) Comprehensive metabolic panel (04/21/2024 6:13 AM EST) [facility] Sodium 126(L) 133 - 145 mmol/L LAB CHEMISTRY METHOD 04/21/2024 10:06 AM [facility] LAB Potassium 3.7 3.5 - 5.5 mmol/L LAB CHEMISTRY METHOD 04/21/2024 10:06 AM [facility] LAB Chloride 91(L) 96 - 110 mmol/L LAB CHEMISTRY METHOD 04/21/2024 10:06 AM [facility] LAB CO2 26 21 - 32 mmol/L LAB CHEMISTRY METHOD 04/21/2024 10:06 AM [facility] LAB Anion Gap 9 3 - 11 LAB CHEMISTRY METHOD 04/21/2024 10:06 AM [facility] LAB Glucose 82 70 - 100 mg/dL LAB CHEMISTRY METHOD 04/21/2024 10:06 AM [facility] LAB BUN 10 5 - 25 mg/dL LAB CHEMISTRY METHOD 04/21/2024 10:06 AM [facility] LAB Creatinine 0.67(L) 0.70 - 1.30 mg/dL LAB CHEMISTRY METHOD 04/21/2024 10:06 AM [facility] LAB eGFR 98 >=60 mL/min/1. 73m2 LAB CHEMISTRY METHOD 04/21/2024 10:06 AM [facility] LAB Comment:Calculation based on the Chronic Kidney Disease Epidemiology Collaboration (CKD-EPI) equation refit without adjustment for race. BUN/Creatinine Ratio 14.9 LAB CHEMISTRY METHOD 04/21/2024 10:06 AM [facility] LAB Calcium 8.8 8.5 - 10.5 mg/dL LAB CHEMISTRY METHOD 04/21/2024 10:06 AM [facility] LAB AST (SGOT) 208(H) 10 - 42 unit/L LAB CHEMISTRY METHOD 04/21/2024 10:06 AM [facility] ALT (SGPT) 210(H) 10 - 60 unit/L LAB CHEMISTRY METHOD 04/21/2024 10:06 AM [facility] LAB Alkaline Phosphatase 210(H) 42 - 121 unit/L LAB CHEMISTRY METHOD 04/21/2024 10:06 AM [facility] LAB Total Protein 6.5 6.0 - 8.0 g/dL LAB CHEMISTRY METHOD 04/21/2024 10:06 AM [facility] LAB Albumin 3.2 3.2 - 5.0 g/dL LAB CHEMISTRY METHOD 04/21/2024 10:06 AM [facility] LAB Total Bilirubin 0.3 0.0 - 1.4 mg/dL LAB CHEMISTRY METHOD 04/21/2024 10:06 AM [facility] LAB Blood Venous blood specimen / Unknown Venipuncture / Unknown 04/21/2024 6:13 AM EST 04/21/2024 8:46 AM EST us Ever Reyna MD LAB BLOOD ORDERABLES Final Res ult [facility] ([facility]) [facility] LAB [address] [place] [address], documented in this encounter Visit Diagnoses Diagnosis Encounter for other general examination documented in this encounter Care Teams Television Journalist Relationship Specialty Start Date End Date Alan Chanel MD [address] [place] [address] Dr [address] [place] PCP - General Internal Medicine 03/12/24 documented as of this encounter
--- OUTSIDE RECORDS SUMMARY | 2025-01-01 11:01 | XMS_ITS | Encounter Summary ---
Author Organization [facility] Address [address] [place] [address] Care Team Providers Care Occupational Health Manager Name Role Phone Alan Chanel MD Primary Care Provider Encounter Details Date Type Department Care Team (Late st Contact Info) Description 05/28/2024 Lab Requisition [facility] Lab [address] [place] [address] Kenny Malave MD 38 [facility] [address] [place], [address] Polyneuropathy, unspecified; Unspecified protein-calorie malnutrition (CMS/HCC [...] LAB CHEMISTRY METHOD 05/28/2024 9:40 AM EST [facility] ([facility] Potassium 3.3(L) 3.5 - 5.5 mmol/L [...] [facility] Comment:Calculation based on the Chronic Kidney Disease Epidemiology Collaboration (CKD-EPI) equation refit without adjustment for race. BUN/Creatinine Ratio 23.2 LAB CHEMISTRY METHOD 05/28/2024 9:40 AM [facility] LAB Calcium 8.3(L) 8.5 - 10.5 mg/dL LAB CHEMISTRY METHOD 05/28/2024 9:40 AM [facility] LAB Blood Venous blood specimen / Unknown Venipuncture / Unknown 05/28/2024 6:03 AM EST 05/28/2024 8:39 AM EST us Kenny Malave MD LAB BLOOD ORDERABLES Final Resul t [facility] [address] [place] [address], documented in this encounter Visit Diagnoses Diagnosis Polyneuropathy, unspecified Unspecified protein-calorie malnutrition (CMS/HCC V24) Unspecified protein-calorie malnutrition Chronic obstructive pulmonary disease, unspecified (CMS/[facility] V24, CMS/[facility] V28) documented in this encounter Care Teams Occupational Health Manager Relationship Specialty Start Date End Date Alan Chanel MD [address] [place] [address] Dr [address] MAGEN Kruger PCP - General Internal Medicine 03/12/24 documented as of this encounter
--- OUTSIDE RECORDS SUMMARY | 2025-01-01 11:01 | XMS_ITS | Encounter Summary ---
Author Organization [facility] Address [address] [place] [address] Care Team Providers Care Casino Cashier Manager Name Role Phone Alan Chanel MD Primary Care Provider Encounter Details Date Type Department Care Team (Late st Contact Info) Description 08/15/2024 Lab Requisition [facility] Lab [address] [place] [address] Kenny Malave MD 38 [facility] [address] [place], [address] Essential (primary) hypertension Social History Tobacco [...] LAB CHEMISTRY METHOD 08/17/2024 12:06 PM EDT [facility] LAB Potassium 4.8 3.5 - 5.5 mmol/L LAB CHEMISTRY METHOD 08/17/2024 12:06 PM EDT [facility] LAB Chloride 95(L) 96 - 110 mmol/L LAB CHEMISTRY METHOD 08/17/2024 12:06 PM [facility] LAB CO2 28 21 - 32 mmol/L LAB CHEMISTRY METHOD 08/17/2024 12:06 PM [facility] LAB Anion Gap 5 3 - 11 LAB CHEMISTRY METHOD 08/17/2024 12:06 PM [facility] LAB Glucose 76 70 - 100 mg/dL LAB CHEMISTRY METHOD 08/17/2024 12:06 PM [facility] BUN 21 5 - 25 mg/dL LAB CHEMISTRY METHOD 08/17/2024 12:06 PM [facility] LAB Creatinine 0.67 0.50 - 1.10 mg/dL LAB CHEMISTRY METHOD 08/17/2024 12:06 PM [facility] LAB eGFR 91 >=60 mL/min/1. 73m2 LAB CHEMISTRY METHOD 08/17/2024 12:06 PM [facility] LAB Comment:Calculation based on the Chronic Kidney Disease Epidemiology Collaboration (CKD-EPI) equation refit without adjustment for race. BUN/Creatinine Ratio 31.3 LAB CHEMISTRY METHOD 08/17/2024 12:06 PM [facility] LAB Calcium 9.8 8.5 - 10.5 mg/dL LAB CHEMISTRY METHOD 08/17/2024 12:06 PM [facility] AST (SGOT) 28 10 - 42 unit/L LAB CHEMISTRY METHOD 08/17/2024 12:06 PM [facility] ALT (SGPT) 21 10 - 60 unit/L LAB CHEMISTRY METHOD 08/17/2024 12:06 PM [facility] LAB Alkaline Phosphatase 80 42 - 121 unit/L LAB CHEMISTRY METHOD 08/17/2024 12:06 PM [facility] LAB Total Protein 7.2 6.0 - 8.0 g/dL LAB CHEMISTRY METHOD 08/17/2024 12:06 PM [facility] LAB Albumin 3.5 3.2 - 5.0 g/dL LAB CHEMISTRY METHOD 08/17/2024 12:06 PM EDT [facility] LAB Total Bilirubin 0.2 0.0 - 1.4 mg/dL LAB CHEMISTRY METHOD 08/17/2024 12:06 PM [facility] LAB Blood Venous blood specimen / Unknown Venipuncture / Unknown 08/17/2024 5:38 AM EDT 08/17/2024 10:35 AM EDT us Kenny Malave MD LAB BLOOD ORDERABLES Final Resul t [facility] [address] [place] [address], [place] [phone] * (ABNORMAL) Complete blood count (08/17/2024 5:38 AM EDT) WBC 4.8 4.8 - 10.8 K/mcL LAB HEMETOLOGY METHOD 08/17/2024 11:44 AM [facility] RBC 3.70(L) 3.80 - 4.80 M/mcL LAB HEMETOLOGY METHOD 08/17/2024 11:44 AM [facility] Hemoglobin 10.3(L) 11.5 - 16.0 g/dL LAB HEMETOLOGY METHOD 08/17/2024 11:44 AM [facility] LAB Hematocrit 31.4(L) 35.0 - 47.0 % LAB HEMETOLOGY METHOD 08/17/2024 11:44 AM [facility] LAB MCV 85.8 79.0 - 98.0 FL LAB HEMETOLOGY METHOD 08/17/2024 11:44 AM [facility] LAB MCH 28.1 27.0 - 32.0 pcg LAB HEMETOLOGY METHOD 08/17/2024 11:44 AM [facility] LAB MCHC 32.8 32.0 - 37.0 g/dL LAB HEMETOLOGY METHOD 08/17/2024 11:44 AM EDT [facility] LAB RDW 14.2 11.0 - 15.0 % LAB HEMETOLOGY METHOD 08/17/2024 11:44 AM EDT [facility] LAB Platelets 402(H) 130 - 400 K/mcL LAB HEMETOLOGY METHOD 08/17/2024 11:44 AM EDT [facility] MPV 8.5 7.0 - 11.0 FL LAB HEMETOLOGY METHOD 08/17/2024 11:44 AM EDT [facility] NRBC 0.0 <1.0 % LAB HEMETOLOGY METHOD 08/17/2024 11:44 AM EDT [facility] LAB NRBC Absolute 0.00 <0.10 K/mcL LAB HEMETOLOGY METHOD 08/17/2024 11:44 AM EDT [facility] LAB Blood Venous blood specimen / Unknown Venipuncture / Unknown 08/17/2024 5:38 AM EDT 08/17/2024 10:35 AM EDT us Kenny Malave MD LAB BLOOD ORDERABLES Final Resul t [facility] [address] [place] [address], documented in this encounter Visit Diagnoses Diagnosis Essential (primary) hypertension Unspecified essential hypertension documented in this encounter Care Teams Casino Cashier Manager Relationship Specialty Start Date End Date Alan Chanel MD [address] [facility] [address] Orellana [facility][note 3] MAGEN Kruger PCP - General Internal Medicine 03/12/24 documented as of this encounter
--- OUTSIDE RECORDS SUMMARY | 2025-01-19 20:00 | XMS_ITS | Clinical Summary ---
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 Active 09-24 [...] 09-18 00:00: 00 09-23 00:00 :00 No [id number] Per instruc tions Per instructio ns (route: oral) Med Classific ation: Central Nervous System Agents Breo Ellipta 50 mcg-25 mcg/dose powder for inhalation 09-17 00:00: 00 09-23 00:00 :00 No [id number] Per instruc tions Per instructio ns (route: inhalation ) Med Classific ation: Respirato ry Therapy Agents lisinopril 5 mg tablet 09-09 00:00: 00 09-23 00:00 :00 No [id number] Per instruc tions Per instructio ns (route: oral) Med Classific ation: Cardiovas cular Therapy Agents sertraline 50 mg tablet 09-09 00:00: 00 09-23 00:00 :00 No [id number] Per instruc tions Per instructio ns (route: oral) Med Classific ation: Central Nervous System Agents tramadol 50 mg tablet 09-08 00:00: 00 09-23 00:00 :00 No [id number] Per instruc tions Per instructio ns (route: oral) Med Classific ation: Analgesic , Anti-infl ammatory or Antipyret ic prednisone 10 mg tablet 09-03 00:00: 00 09-23 00:00 :00 No [id number] Per instruc tions Per instructio ns (route: oral) Med Classific ation: Endocrine colchicine 0.6 mg tablet 08-25 00:00: 00 09-23 00:00 :00 No [id number] Per instruc tions Per instructio ns (route: oral) Med Classific ation: Gout and Hyperuric emia Therapy acetaminoph en 500 mg tablet 09-23 00:00: 00 Yes [id number] MILD PAIN/ FEVER 2 tablet EVERY 8 HOURS 2 tablet EVERY 8 HOURS (route: oral) Med Classific ation: Analgesic , Anti-infl ammatory or Antipyret ic aspirin 81 mg tablet,suzanne yed release 09-23 00:00: 00 Yes [id number] PROTECT HEART 1 tablet DAILY 1 tablet DAILY (route: oral) Med Classific ation: Hematolog ical Agents Breo Ellipta 50 mcg-25 mcg/dose powder for inhalation 09-23 00:00: 00 Yes [id number] COPD 1 inhalat ion DAILY 1 inhalation DAILY (route: inhalation ) Med Classific ation: Respirato ry Therapy Agents Calcium 600 + Minerals 600 mg (as carbonate)- 200 unit tablet 09-23 00:00: 00 Yes [id number] SUPPLEMENT 1 tablet DAILY 1 tablet DAILY (route: oral) Med Classific ation: Electroly te Balance-N utritiona l Products lisinopril 5 mg tablet 09-23 00:00: 00 Yes [id number] HIGH BLOOD PRESSURE 1 tablet DAILY 1 tablet DAILY (route: oral) Med Classific ation: Cardiovas cular Therapy Agents Multi For Her 50 Plus 400 mcg-80 mcg capsule 09-23 00:00: 00 Yes [id number] SUPPLEMENT 1 capsule DAILY 1 capsule DAILY (route: oral) Med Classific ation: Electroly te Balance-N utritiona l Products naproxen 500 mg tablet 09-23 00:00: 00 Yes [id number] PAIN 1 tablet 2 TIMES DAILY 1 tablet 2 TIMES DAILY (route: oral) Med Classific ation: Analgesic , Anti-infl ammatory or Antipyret ic sertraline 25 mg tablet 09-23 00:00: 00 Yes [id number] SADNESS 1 tablet DAILY 1 tablet DAILY (route: oral) Med Classific ation: Central Nervous System Agents Ventolin HFA 90 mcg/actuati on aerosol inhaler 09-23 00:00: 00 Yes [id number] WHEEZE/SHOR TNESS OF BREATH 1 puff EVERY 4 HOURS 1 puff EVERY 4 HOURS (route: inhalation ) Med Classific ation: Respirato ry Therapy Agents vitamin E 268 mg (400 unit) capsule 09-23 00:00: 00 Yes [id number] SUPPLEMENT 1 capsule DAILY 1 capsule DAILY (route: oral) Med Classific ation: Electroly te Balance-N utritiona l Products oxycodone 5 mg tablet 10-06 00:00: 00 10-21 23:59 :00 No [id number] PAIN 1 tablet EVERY 6 HOURS 1 tablet EVERY 6 HOURS (route: oral) Med Classific ation: Analgesic , Anti-infl ammatory or Antipyret ic tizanidine 4 mg tablet 10-04 00:00: 00 Yes [id number] MUSCLE SPASMS .5 tablet 3 TIMES DAILY .5 tablet 3 TIMES DAILY (route: oral) Med Classific ation: Locomotor System gabapentin 100 mg capsule 10-21 00:00: 00 12-14 00:00 :00 No [id number] PAIN 2 capsule BEDTIME 2 capsule BEDTIME (route: oral) Med Classific ation: Central Nervous System Agents Senna Plus 8.6 mg-50 mg tablet 10-21 00:00: 00 Yes [id number] CONSTIPATIO N 2 tablet BEDTIME 2 tablet BEDTIME (route: oral) Med Classific ation: Gastroint estinal Therapy Agents tramadol 50 mg tablet 10-21 00:00: 00 11-17 23:59 :00 No [id number] PAIN 1-6 2 tablet EVERY 6 HOURS 2 tablet EVERY 6 HOURS (route: oral) Med Classific ation: Analgesic , Anti-infl ammatory or Antipyret ic nicotine 14 mg/24 hr daily transdermal patch 10-30 00:00: 00 Yes [id number] CIGARETTE CESSATION 1 patch, transde rmal 24 hours DAILY 1 patch, transderma l 24 hours DAILY (route: transderma l) Med Classific ation: Chemical Dependenc y, Agents to Treat tramadol 50 mg tablet 11-22 00:00: 00 Yes [id number] PAIN TO SPINE 1 tablet 3 TIMES DAILY 1 tablet 3 TIMES DAILY (route: oral) Med Classific ation: Analgesic , Anti-infl ammatory or Antipyret ic gabapentin 100 mg capsule 11-27 00:00: 00 Yes [id number] PAIN 1 capsule 3 TIMES DAILY 1 capsule 3 TIMES DAILY (route: oral) Med Classific ation: Central Nervous System Agents Vital Signs Vital Name Observation Time Observation Value Commen ts Temperature 2024-12-31 08:56:00.000 97.3 [degF] Temperature 2024-12-28 15:05:00.000 97.8 [degF] Temperature 2024-12-28 09:03:00.000 98.5 [degF] Temperature 2024-12-22 08:55:00.000 97.1 [degF] Temperature 2024-12-21 08:46:00.000 99 [degF] Temperature 2024-12-17 08:25:00.000 97.1 [degF] Temperature 2024-12-15 09:46:00.000 98.7 [degF] Temperature 2024-12-14 08:54:00.000 98.2 [degF] Temperature 2024-12-09 13:11:00.000 97.8 [degF] Temperature 2024-12-08 09:15:00.000 97.7 [degF] Temperature 2024-12-07 08:48:00.000 99.1 [degF] Temperature 2024-12-02 09:44:00.000 98 [degF] Temperature 2024-12-01 09:50:00.000 97.8 [degF] Temperature 2024-11-30 08:55:00.000 98.7 [degF] Temperature 2024-11-25 08:36:00.000 98.2 [degF] Temperature 2024-11-24 08:52:00.000 97.1 [degF] Temperature 2024-11-23 09:08:00.000 98.7 [degF] Pulse 2024-12-31 08:56:00.000 69 /min Pulse 2024-12-28 15:05:00.000 80 /min Pulse 2024-12-28 09:03:00.000 73 /min Pulse 2024-12-22 08:55:00.000 78 /min Pulse 2024-12-21 08:46:00.000 70 /min Pulse 2024-12-17 08:25:00.000 77 /min Pulse 2024-12-15 09:46:00.000 75 /min Pulse 2024-12-14 08:54:00.000 75 /min Pulse 2024-12-09 13:11:00.000 75 /min Pulse 2024-12-08 09:15:00.000 73 /min Pulse 2024-12-07 08:48:00.000 72 /min Pulse 2024-12-02 09:44:00.000 87 /min Pulse 2024-12-01 09:50:00.000 86 /min Pulse 2024-11-30 08:55:00.000 77 /min Pulse 2024-11-25 08:36:00.000 88 /min Pulse 2024-11-24 08:52:00.000 79 /min Pulse 2024-11-23 09:08:00.000 75 /min O2 Saturation (%) 2024-12-31 08:56:00.000 100 % O2 Saturation (%) 2024-12-28 15:05:00.000 97 % O2 Saturation (%) 2024-12-28 09:03:00.000 97 % O2 Saturation (%) 2024-12-22 08:55:00.000 96 % O2 Saturation (%) 2024-12-21 09:28:00.000 98 % O2 Saturation (%) 2024-12-21 08:46:00.000 99 % O2 Saturation (%) 2024-12-17 08:25:00.000 97 % O2 Saturation (%) 2024-12-15 09:46:00.000 96 % O2 Saturation (%) 2024-12-14 08:54:00.000 98 % O2 Saturation (%) 2024-12-09 13:11:00.000 98 % O2 Saturation (%) 2024-12-08 09:15:00.000 96 % [...] Saturation (%) 2024-11-23 09:08:00.000 96 % Respirations 2024-12-31 08:56:00.000 16 /min Respirations 2024-12-28 15:05:00.000 18 /min Respirations 2024-12-28 09:03:00.000 18 /min Respirations 2024-12-22 08:55:00.000 18 /min Respirations 2024-12-21 08:46:00.000 18 /min Respirations 2024-12-17 08:25:00.000 16 /min Respirations 2024-12-15 09:46:00.000 18 /min Respirations 2024-12-14 08:54:00.000 18 /min Respirations 2024-12-09 13:11:00.000 18 /min Respirations 2024-12-08 09:15:00.000 18 /min Respirations 2024-12-07 08:48:00.000 18 /min Respirations 2024-12-02 09:44:00.000 17 /min Respirations 2024-12-01 09:50:00.000 18 /min Respirations 2024-11-30 08:55:00.000 18 /min Respirations 2024-11-25 08:36:00.000 17 /min Respirations 2024-11-24 08:52:00.000 18 /min Respirations 2024-11-23 09:08:00.000 18 /min Systolic Blood Pressure 2024-12-31 08:56:00.000 140 mm [Hg] Systolic Blood Pressure 2024-12-28 15:05:00.000 112 mm [Hg] Systolic Blood Pressure 2024-12-28 09:03:00.000 136 mm [Hg] Systolic Blood Pressure 2024-12-22 08:55:00.000 120 mm [Hg] Systolic Blood Pressure 2024-12-21 08:46:00.000 121 mm [Hg] Systolic Blood Pressure 2024-12-17 08:25:00.000 140 mm [Hg] Systolic Blood Pressure 2024-12-15 09:46:00.000 102 mm [Hg] Systolic Blood Pressure 2024-12-14 08:54:00.000 105 mm [Hg] Systolic Blood Pressure 2024-12-09 13:12:00.000 90 mm[ Hg] Systolic Blood Pressure 2024-12-08 09:15:00.000 90 mm[ [...] 09:08:00.000 119 mm [Hg] Diastolic Blood Pressure 2024-12-31 08:56:00.000 80 mm [Hg] Diastolic Blood Pressure 2024-12-28 15:05:00.000 52 mm [Hg] Diastolic Blood Pressure 2024-12-28 09:03:00.000 82 mm [Hg] Diastolic Blood Pressure 2024-12-22 08:55:00.000 82 mm [Hg] Diastolic Blood Pressure 2024-12-21 08:46:00.000 80 mm [Hg] Diastolic Blood Pressure 2024-12-17 08:25:00.000 70 mm [Hg] Diastolic Blood Pressure 2024-12-15 09:46:00.000 60 mm [Hg] Diastolic Blood Pressure 2024-12-14 08:54:00.000 65 mm [Hg] Diastolic Blood Pressure 2024-12-09 13:12:00.000 55 mm [Hg] Diastolic Blood Pressure 2024-12-08 09:15:00.000 [...] CONSULTING PHYSICIANS. RN TO OBSERVE AND ASSESS, BLACKSMITH SUPERVISOR/CHUTE TAPPER TO OBSERVE FOR RISK FOR FALLS AND INSTRUCT IN FALL PREVENTION, HOME SAFETY, MEDICATION MANAGEMENT, INFECTION PREVENTION, AND NUTRITION MANAGEMENT. RN/BLACKSMITH SUPERVISOR/CHUTE TAPPER NURSE MAY PERFORM O2 SATURATION LEVEL ON ADMISSION AND PRN FOR RN TO ASSESS/BLACKSMITH SUPERVISOR TO OBSERVE PATIENT, WITH NOTIFICATION TO THE PHYSICIAN IF SATURATION IS 90% IN THE ABSENCE OF MORE SPECIFIC PARAMETERS FROM THE PHYSICIAN. AGENCY MAY PERFORM A RESUMPTION OF CARE VISIT FOLLOWING ANY HOSPITAL ADMISSION. RN/BLACKSMITH SUPERVISOR/CHUTE TAPPER TO MONITOR CO-MORBID CONDITIONS LISTED ON THE PLAN OF CARE AND ANY NEW CONDITIONS THAT PRESENT THEMSELVES DURING THIS EPISODE TO IDENTIFY CHANGES AND INTERVENE TO MINIMIZE COMPLICATIONS. [code = RN TO OBSERVE, ASSESS, EVALUATE, AND DEVELOP AN INDIVIDUALIZED PLAN OF CARE. AGENCY MAY ACCEPT ORDERS FROM CONSULTING PHYSICIANS. RN TO OBSERVE AND ASSESS, BLACKSMITH SUPERVISOR/CHUTE TAPPER TO OBSERVE FOR RISK FOR FALLS AND INSTRUCT IN FALL PREVENTION, HOME SAFETY, MEDICATION MANAGEMENT, INFECTION PREVENTION, AND NUTRITION MANAGEMENT. RN/BLACKSMITH SUPERVISOR/CHUTE TAPPER NURSE MAY PERFORM O2 SATURATION LEVEL ON ADMISSION AND PRN FOR RN TO ASSESS/BLACKSMITH SUPERVISOR TO OBSERVE PATIENT, WITH NOTIFICATION TO THE PHYSICIAN IF SATURATION IS 90% IN THE ABSENCE OF MORE SPECIFIC PARAMETERS FROM THE PHYSICIAN. AGENCY MAY PERFORM A RESUMPTION OF CARE VISIT FOLLOWING ANY HOSPITAL ADMISSION. RN/BLACKSMITH SUPERVISOR/CHUTE TAPPER TO MONITOR CO-MORBID CONDITIONS LISTED ON THE PLAN OF CARE AND ANY NEW CONDITIONS THAT PRESENT THEMSELVES DURING THIS EPISODE TO IDENTIFY CHANGES AND INTERVENE TO MINIMIZE COMPLICATIONS.] Future Scheduled Test MEDICATION MANAGEMENT; RN/BLACKSMITH SUPERVISOR/CHUTE TAPPER TO REVIEW MEDICATIONS FOR INTERACTIONS, EFFECTIVENESS OF DRUG THERAPY, AND SIGNS/SYMPTOMS OF ADVERSE REACTIONS. MAY INSTRUCT AND REINFORCE MEDICATION TEACHING RELATED TO THE USE OF MEDICATIONS, DOSAGE, FREQUENCY, PURPOSE, SIDE EFFECTS, AND TO REPORT COMPLICATIONS. [code = MEDICATION MANAGEMENT; RN/BLACKSMITH SUPERVISOR/CHUTE TAPPER TO REVIEW MEDICATIONS FOR INTERACTIONS, EFFECTIVENESS OF DRUG THERAPY, AND SIGNS/SYMPTOMS OF ADVERSE REACTIONS. MAY INSTRUCT AND REINFORCE MEDICATION TEACHING RELATED TO THE USE OF MEDICATIONS, DOSAGE, FREQUENCY, PURPOSE, SIDE EFFECTS, AND TO REPORT COMPLICATIONS.] Future Scheduled Test RISK FOR H OSPITALIZATION; RN TO ASSESS/TEACH, CHUTE TAPPER/BLACKSMITH SUPERVISOR TO OBSERVE/TEACH PATIENT/CAREGIVER ON RISK FOR HOSPITALIZATION/EMERGENCY ROOM VISITS, TEACH SIGNS AND SYMPTOMS THAT PUT PATIENT AT RISK, WHEN TO NOTIFY NURSE/PHYSICIAN OF COMPLICATIONS/DECLINE, AND WHEN TO CALL 911. [code = RISK FOR HOSPITALIZATION; RN TO ASSESS/TEACH, CHUTE TAPPER/BLACKSMITH SUPERVISOR TO OBSERVE/TEACH PATIENT/CAREGIVER ON RISK FOR HOSPITALIZATION/EMERGENCY ROOM VISITS, TEACH SIGNS AND SYMPTOMS THAT PUT PATIENT AT RISK, WHEN TO NOTIFY NURSE/PHYSICIAN OF COMPLICATIONS/DECLINE, AND WHEN TO CALL 911.] Future Scheduled Test CARDIOVASC ULAR SYSTEM; RN TO ASSESS/TEACH, BLACKSMITH SUPERVISOR/CHUTE TAPPER TO OBSERVE/TEACH RELATED TO ALTERED CARDIOVASCULAR STATUS TO MINIMIZE COMPLICATIONS AND REDUCE HOSPITALIZATION. [code = CARDIOVASCULAR SYSTEM; RN TO ASSESS/TEACH, BLACKSMITH SUPERVISOR/CHUTE TAPPER TO OBSERVE/TEACH RELATED TO ALTERED CARDIOVASCULAR STATUS TO MINIMIZE COMPLICATIONS AND REDUCE HOSPITALIZATION.] Future Scheduled Test HYPOTENSIO N MANAGEMENT; RN TO ASSESS AND TEACH/ BLACKSMITH SUPERVISOR /CHUTE TAPPER TO OBSERVE AND TEACH WARNING SIGNS AND SYMPTOMS TO AVOID HOSPITALIZATION. [code = HYPOTENSION MANAGEMENT; RN TO ASSESS AND TEACH/ BLACKSMITH SUPERVISOR /CHUTE TAPPER TO OBSERVE AND TEACH WARNING SIGNS AND SYMPTOMS TO AVOID HOSPITALIZATION.] Future Scheduled Test PAIN MANAG EMENT; RN TO ASSESS AND TEACH, CHUTE TAPPER/BLACKSMITH SUPERVISOR TO OBSERVE AND TEACH AND PROVIDE EDUCATION ON PAIN MANAGEMENT TECHNIQUES. [code = PAIN MANAGEMENT; RN TO ASSESS AND TEACH, CHUTE TAPPER/BLACKSMITH SUPERVISOR TO OBSERVE AND TEACH AND PROVIDE EDUCATION ON PAIN MANAGEMENT TECHNIQUES.] Future Scheduled Test RESPIRATOR Y SYSTEM MANAGEMENT; RN TO ASSESS AND TEACH, BLACKSMITH SUPERVISOR/CHUTE TAPPER TO OBSERVE AND TEACH RELATED TO ALTERED RESPIRATORY STATUS TO MINIMIZE COMPLICATIONS AND REDUCE HOSPITALIZATION. [code = RESPIRATORY SYSTEM MANAGEMENT; RN TO ASSESS AND TEACH, BLACKSMITH SUPERVISOR/CHUTE TAPPER TO OBSERVE AND TEACH RELATED TO ALTERED RESPIRATORY STATUS TO MINIMIZE COMPLICATIONS AND REDUCE HOSPITALIZATION.] Future Scheduled Test COPD MANAG EMENT; RN TO ASSESS AND TEACH, BLACKSMITH SUPERVISOR/CHUTE TAPPER TO OBSERVE AND TEACH SIGNS/SYMPTOMS OF COPD EXACERBATION AND PROVIDE EARLY INTERVENTIONS TO MINIMIZE RISK OF HOSPITALIZATION. RN/BLACKSMITH SUPERVISOR/CHUTE TAPPER TO INSTRUCT ON SELF-CARE MANAGEMENT INCLUDING BREATHING TECHNIQUES, AIRWAY CLEARANCE, AND PROPER USE OF COPD MEDICATIONS. RN TO ASSESS AND TEACH, BLACKSMITH SUPERVISOR/CHUTE TAPPER TO OBSERVE AND TEACH PATIENT/CAREGIVER ABILITY TO MONITOR AND RECORD VITAL SIGNS INCLUDING PULSE OXIMETRY AND BLOOD PRESSURE. [code = COPD MANAGEMENT; RN TO ASSESS AND TEACH, BLACKSMITH SUPERVISOR/CHUTE TAPPER TO OBSERVE AND TEACH SIGNS/SYMPTOMS OF COPD EXACERBATION AND PROVIDE EARLY INTERVENTIONS TO MINIMIZE RISK OF HOSPITALIZATION. RN/BLACKSMITH SUPERVISOR/CHUTE TAPPER TO INSTRUCT ON SELF-CARE MANAGEMENT INCLUDING BREATHING TECHNIQUES, AIRWAY CLEARANCE, AND PROPER USE OF COPD MEDICATIONS. RN TO ASSESS AND TEACH, BLACKSMITH SUPERVISOR/CHUTE TAPPER TO OBSERVE AND TEACH PATIENT/CAREGIVER ABILITY TO MONITOR AND RECORD VITAL SIGNS INCLUDING PULSE OXIMETRY AND BLOOD PRESSURE.] Future Scheduled Test FALL REDUC TION MANAGEMENT; RN TO ASSESS AND OBSERVE, BLACKSMITH SUPERVISOR/CHUTE TAPPER TO OBSERVE FALL RISK FACTORS AND EDUCATE PATIENT/CAREGIVER ON STRATEGIES TO MINIMIZE THE RISK OF FALLING. [code = FALL REDUCTION MANAGEMENT; RN TO ASSESS AND OBSERVE, BLACKSMITH SUPERVISOR/CHUTE TAPPER TO OBSERVE FALL RISK FACTORS AND EDUCATE PATIENT/CAREGIVER ON STRATEGIES TO MINIMIZE THE RISK OF FALLING.] Future Scheduled Test AGENCY MAY PERFORM A RESUMPTION OF CARE VISIT FOLLOWING ANY HOSPITAL ADMISSION. OT TO EVALUATE, OBSERVE / ASSESS, AND MONITOR, YOHANNES TO OBSERVE AND MONITOR, PROVIDE SKILLED THERAPEUTIC INTERVENTION, ACTIVITY, EDUCATION, AND TRAINING TO ADDRESS; BATHING/SHOWERING (OT/YOHANNES) ACTIVITIES OF DAILY LIVING (OT/LICENSED MENTAL HEALTH PROFESSIONAL) MEAL PREPARATION AND CLEANUP (OT/LICENSED MENTAL HEALTH PROFESSIONAL) LAUNDRY MANAGEMENT (OT/YOHANNES) BATH/SHOWER TRANSFER (OT/LICENSED MENTAL HEALTH PROFESSIONAL) HOME ACTIVITY / EXERCISE PROGRAM (OT/YOHANNES) POSTURAL CONTROL/BALANCE (OT/LICENSED MENTAL HEALTH PROFESSIONAL) OT/LICENSED MENTAL HEALTH PROFESSIONAL TO MONITOR AND EDUCATE ON OXYGEN SATURATION DURING ADLS/IADLS, NOTIFY PHYSICIAN AND/OR THE RN CLINICAL CONFIGURATION CONSULTANT FOR PHYSICIAN NOTIFICATION AND IF O2 SATS BELOW 90% AFTER 10 MIN OF REST. OT/LICENSED MENTAL HEALTH PROFESSIONAL MAY EDUCATE ON PAIN MANAGEMENT CLINICALLY INDICATED. OT / LICENSED MENTAL HEALTH PROFESSIONAL TO IDENTIFY FALL RISK FACTORS; EDUCATE THE PATIENT/CAREGIVER ON WAYS TO REDUCE FALL RISK FACTORS AND ESTABLISH HOME EXERCISE PROGRAM TO MINIMIZE FALL RISK. MAY TEACH THE PATIENT FLOOR RECOVERY WHEN CLINICALLY APPROPRIATE. [code = AGENCY MAY PERFORM A RESUMPTION OF CARE VISIT FOLLOWING ANY HOSPITAL ADMISSION. OT TO EVALUATE, OBSERVE / ASSESS, AND MONITOR, LICENSED MENTAL HEALTH PROFESSIONAL TO OBSERVE AND MONITOR, PROVIDE SKILLED THERAPEUTIC INTERVENTION, ACTIVITY, EDUCATION, AND TRAINING TO ADDRESS; BATHING/SHOWERING (OT/YOHANNES) ACTIVITIES OF DAILY LIVING (OT/LICENSED MENTAL HEALTH PROFESSIONAL) MEAL PREPARATION AND CLEANUP (OT/LICENSED MENTAL HEALTH PROFESSIONAL) LAUNDRY MANAGEMENT (OT/YOHANNES) BATH/SHOWER TRANSFER (OT/YOHANNES) HOME ACTIVITY / EXERCISE PROGRAM (OT/LICENSED MENTAL HEALTH PROFESSIONAL) POSTURAL CONTROL/BALANCE (OT/LICENSED MENTAL HEALTH PROFESSIONAL) OT/LICENSED MENTAL HEALTH PROFESSIONAL TO MONITOR AND EDUCATE ON OXYGEN SATURATION DURING ADLS/IADLS, NOTIFY PHYSICIAN AND/OR THE RN CLINICAL CONFIGURATION CONSULTANT FOR PHYSICIAN NOTIFICATION AND IF O2 SATS BELOW 90% AFTER 10 MIN OF REST. OT/LICENSED MENTAL HEALTH PROFESSIONAL MAY EDUCATE ON PAIN MANAGEMENT CLINICALLY INDICATED. OT / LICENSED MENTAL HEALTH PROFESSIONAL TO IDENTIFY FALL RISK FACTORS; EDUCATE THE PATIENT/CAREGIVER ON WAYS TO REDUCE FALL RISK FACTORS AND ESTABLISH HOME EXERCISE PROGRAM TO MINIMIZE FALL RISK. MAY TEACH THE PATIENT FLOOR RECOVERY WHEN CLINICALLY APPROPRIATE.] Future Scheduled Test AGENCY MAY PERFORM A RESUMPTION OF CARE VISIT FOLLOWING ANY HOSPITAL ADMISSION. PT TO EVALUATE, OBSERVE / ASSESS, AND MONITOR, ASSOCIATE ART DIRECTOR TO OBSERVE AND MONITOR, PROVIDE SKILLED THERAPEUTIC INTERVENTION, ACTIVITY, EDUCATION, AND TRAINING TO ADDRESS; PT/ASSOCIATE ART DIRECTOR TO PROVIDE GAIT TRAINING FOR IMPROVED MOBILITY AND /OR TO NORMALIZE GAIT PATTERN NEUROMUSCULAR RE-EDUCATION / BALANCE / POSTURAL CONTROL (PT) THERAPEUTIC EXERCISES AND ESTABLISHING A HOME EXERCISE PROGRAM (PT/ASSOCIATE ART DIRECTOR) PT/ASSOCIATE ART DIRECTOR TO PROVIDE STAIR TRAINING PT TO ASSESS / ASSOCIATE ART DIRECTOR TO MONITOR FOR AND REPORT EARLY SIGNS OF ANTICOAGULANT TOXICITY TO THE PHYSICIAN AND/OR THE RN CLINICAL CONFIGURATION CONSULTANT FOR PHYSICIAN NOTIFICATION AND TO PROVIDE PATIENT/CAREGIVER EDUCATION ON ANTICOAGULANT THERAPY PT / ASSOCIATE ART DIRECTOR TO MONITOR AND EDUCATE ON OXYGEN SATURATION DURING ADLS/IADLS, NOTIFY PHYSICIAN AND/OR THE RN CLINICAL CONFIGURATION CONSULTANT FOR PHYSICIAN NOTIFICATION AND IF O2 SATS BELOW PHYSICIAN ORDERED PARAMETERS AFTER 10 MIN OF REST PT / ASSOCIATE ART DIRECTOR MAY EDUCATE ON PAIN MANAGEMENT CLINICALLY INDICATED, INCLUDING NON-PHARMACOLOGICAL PAIN REDUCTION TECHNIQUES AND USE OF OR HEAT UP TO 20 MIN AT A TIME FOR PAIN MANAGEMENT 3 TIMES PER DAY TO PT TO ASSESS / ASSOCIATE ART DIRECTOR TO MONITOR CARDIO/RESPIRATORY SYSTEM; AND NOTIFY THE PHYSICIAN AND/OR THE RN CLINICAL CONFIGURATION CONSULTANT FOR PHYSICIAN NOTIFICATION FOR EARLY SIGNS AND SYMPTOMS OF EXACERBATION OR DETERIORATION. PT/ASSOCIATE ART DIRECTOR TO IDENTIFY FALL RISK FACTORS; EDUCATE THE PATIENT/CAREGIVER ON WAYS TO REDUCE FALL RISK FACTORS AND ESTABLISH HOME EXERCISE PROGRAM TO MINIMIZE FALL RISK. MAY TEACH THE PATIENT FLOOR RECOVERY WHEN CLINICALLY APPROPRIATE [code = AGENCY MAY PERFORM A RESUMPTION OF CARE VISIT FOLLOWING ANY HOSPITAL ADMISSION. PT TO EVALUATE, OBSERVE / ASSESS, AND MONITOR, ASSOCIATE ART DIRECTOR TO OBSERVE AND MONITOR, PROVIDE SKILLED THERAPEUTIC INTERVENTION, ACTIVITY, EDUCATION, AND TRAINING TO ADDRESS; PT/ASSOCIATE ART DIRECTOR TO PROVIDE GAIT TRAINING FOR IMPROVED MOBILITY AND /OR TO NORMALIZE GAIT PATTERN NEUROMUSCULAR RE-EDUCATION / BALANCE / POSTURAL CONTROL (PT) THERAPEUTIC EXERCISES AND ESTABLISHING A HOME EXERCISE PROGRAM (PT/ASSOCIATE ART DIRECTOR) PT/ASSOCIATE ART DIRECTOR TO PROVIDE STAIR TRAINING PT TO ASSESS / ASSOCIATE ART DIRECTOR TO MONITOR FOR AND REPORT EARLY SIGNS OF ANTICOAGULANT TOXICITY TO THE PHYSICIAN AND/OR THE RN CLINICAL CONFIGURATION CONSULTANT FOR PHYSICIAN NOTIFICATION AND TO PROVIDE PATIENT/CAREGIVER EDUCATION ON ANTICOAGULANT THERAPY PT / ASSOCIATE ART DIRECTOR TO MONITOR AND EDUCATE ON OXYGEN SATURATION DURING ADLS/IADLS, NOTIFY PHYSICIAN AND/OR THE RN CLINICAL CONFIGURATION CONSULTANT FOR PHYSICIAN NOTIFICATION AND IF O2 SATS BELOW PHYSICIAN ORDERED PARAMETERS AFTER 10 MIN OF REST PT / ASSOCIATE ART DIRECTOR MAY EDUCATE ON PAIN MANAGEMENT CLINICALLY INDICATED, INCLUDING NON-PHARMACOLOGICAL PAIN REDUCTION TECHNIQUES AND USE OF OR HEAT UP TO 20 MIN AT A TIME FOR PAIN MANAGEMENT 3 TIMES PER DAY TO PT TO ASSESS / ASSOCIATE ART DIRECTOR TO MONITOR CARDIO/RESPIRATORY SYSTEM; AND NOTIFY THE PHYSICIAN AND/OR THE RN CLINICAL CONFIGURATION CONSULTANT FOR PHYSICIAN NOTIFICATION FOR EARLY SIGNS AND SYMPTOMS OF EXACERBATION OR DETERIORATION. PT/ASSOCIATE ART DIRECTOR TO IDENTIFY FALL RISK FACTORS; EDUCATE THE [...] CARE WILL BE ESTABLISHED THAT MEETS THE PATIENT S NEEDS. PATIENT WILL DEMONSTRATE OXYGEN SATURATION WITHIN NORMAL LIMITS OR PATIENT S OPTIMAL LEVEL ESTABLISHED BY THE PHYSICIAN THROUGHOUT [...] BY REDUCED PAIN IN LUMBAR SPINE FROM 10 TO 3/10 WITHIN 4 WEEKS PT LTG: [...] End Date/Time Encounter Type Admission Type Attending [facility] Care Department Encounter ID Discharge Date Discharge Status Discharge Condition Discharge Reason Percent Goals Met 2024-11-22 00:00:00 2025-01-20 00:00:00 Outpatient RECERTIFIC PAULETTE FRITZ [facility] [id number] 11.90
--- OUTSIDE RECORDS SUMMARY | 2025-01-19 20:00 | XMS_ITS | Clinical Summary ---
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 Active 09-24 [...] 09-18 00:00: 00 09-23 00:00 :00 No [id number] Per instruc tions Per instructio ns (route: oral) Med Classific ation: Central Nervous System Agents Breo Ellipta 50 mcg-25 mcg/dose powder for inhalation 09-17 00:00: 00 09-23 00:00 :00 No [id number] Per instruc tions Per instructio ns (route: inhalation ) Med Classific ation: Respirato ry Therapy Agents lisinopril 5 mg tablet 09-09 00:00: 00 09-23 00:00 :00 No [id number] Per instruc tions Per instructio ns (route: oral) Med Classific ation: Cardiovas cular Therapy Agents sertraline 50 mg tablet 09-09 00:00: 00 09-23 00:00 :00 No [id number] Per instruc tions Per instructio ns (route: oral) Med Classific ation: Central Nervous System Agents tramadol 50 mg tablet 09-08 00:00: 00 09-23 00:00 :00 No [id number] Per instruc tions Per instructio ns (route: oral) Med Classific ation: Analgesic , Anti-infl ammatory or Antipyret ic prednisone 10 mg tablet 09-03 00:00: 00 09-23 00:00 :00 No [id number] Per instruc tions Per instructio ns (route: oral) Med Classific ation: Endocrine colchicine 0.6 mg tablet 08-25 00:00: 00 09-23 00:00 :00 No [id number] Per instruc tions Per instructio ns (route: oral) Med Classific ation: Gout and Hyperuric emia Therapy acetaminoph en 500 mg tablet 09-23 00:00: 00 Yes [id number] MILD PAIN/ FEVER 2 tablet EVERY 8 HOURS 2 tablet EVERY 8 HOURS (route: oral) Med Classific ation: Analgesic , Anti-infl ammatory or Antipyret ic aspirin 81 mg tablet,suzanne yed release 09-23 00:00: 00 Yes [id number] PROTECT HEART 1 tablet DAILY 1 tablet DAILY (route: oral) Med Classific ation: Hematolog ical Agents Breo Ellipta 50 mcg-25 mcg/dose powder for inhalation 09-23 00:00: 00 Yes [id number] COPD 1 inhalat ion DAILY 1 inhalation DAILY (route: inhalation ) Med Classific ation: Respirato ry Therapy Agents Calcium 600 + Minerals 600 mg (as carbonate)- 200 unit tablet 09-23 00:00: 00 Yes [id number] SUPPLEMENT 1 tablet DAILY 1 tablet DAILY (route: oral) Med Classific ation: Electroly te Balance-N utritiona l Products lisinopril 5 mg tablet 09-23 00:00: 00 Yes [id number] HIGH BLOOD PRESSURE 1 tablet DAILY 1 tablet DAILY (route: oral) Med Classific ation: Cardiovas cular Therapy Agents Multi For Her 50 Plus 400 mcg-80 mcg capsule 09-23 00:00: 00 Yes [id number] SUPPLEMENT 1 capsule DAILY 1 capsule DAILY (route: oral) Med Classific ation: Electroly te Balance-N utritiona l Products naproxen 500 mg tablet 09-23 00:00: 00 Yes [id number] PAIN 1 tablet 2 TIMES DAILY 1 tablet 2 TIMES DAILY (route: oral) Med Classific ation: Analgesic , Anti-infl ammatory or Antipyret ic sertraline 25 mg tablet 09-23 00:00: 00 Yes [id number] SADNESS 1 tablet DAILY 1 tablet DAILY (route: oral) Med Classific ation: Central Nervous System Agents Ventolin HFA 90 mcg/actuati on aerosol inhaler 09-23 00:00: 00 Yes [id number] WHEEZE/SHOR TNESS OF BREATH 1 puff EVERY 4 HOURS 1 puff EVERY 4 HOURS (route: inhalation ) Med Classific ation: Respirato ry Therapy Agents vitamin E 268 mg (400 unit) capsule 09-23 00:00: 00 Yes [id number] SUPPLEMENT 1 capsule DAILY 1 capsule DAILY (route: oral) Med Classific ation: Electroly te Balance-N utritiona l Products oxycodone 5 mg tablet 10-06 00:00: 00 10-21 23:59 :00 No [id number] PAIN 1 tablet EVERY 6 HOURS 1 tablet EVERY 6 HOURS (route: oral) Med Classific ation: Analgesic , Anti-infl ammatory or Antipyret ic tizanidine 4 mg tablet 10-04 00:00: 00 Yes [id number] MUSCLE SPASMS .5 tablet 3 TIMES DAILY .5 tablet 3 TIMES DAILY (route: oral) Med Classific ation: Locomotor System gabapentin 100 mg capsule 10-21 00:00: 00 12-14 00:00 :00 No [id number] PAIN 2 capsule BEDTIME 2 capsule BEDTIME (route: oral) Med Classific ation: Central Nervous System Agents Senna Plus 8.6 mg-50 mg tablet 10-21 00:00: 00 Yes [id number] CONSTIPATIO N 2 tablet BEDTIME 2 tablet BEDTIME (route: oral) Med Classific ation: Gastroint estinal Therapy Agents tramadol 50 mg tablet 10-21 00:00: 00 11-17 23:59 :00 No [id number] PAIN 1-6 2 tablet EVERY 6 HOURS 2 tablet EVERY 6 HOURS (route: oral) Med Classific ation: Analgesic , Anti-infl ammatory or Antipyret ic nicotine 14 mg/24 hr daily transdermal patch 10-30 00:00: 00 Yes [id number] CIGARETTE CESSATION 1 patch, transde rmal 24 hours DAILY 1 patch, transderma l 24 hours DAILY (route: transderma l) Med Classific ation: Chemical Dependenc y, Agents to Treat tramadol 50 mg tablet 11-22 00:00: 00 Yes [id number] PAIN TO SPINE 1 tablet 3 TIMES DAILY 1 tablet 3 TIMES DAILY (route: oral) Med Classific ation: Analgesic , Anti-infl ammatory or Antipyret ic gabapentin 100 mg capsule 11-27 00:00: 00 Yes [id number] PAIN 1 capsule 3 TIMES DAILY 1 [...] CONSULTING PHYSICIANS. RN TO OBSERVE AND ASSESS, LITERACY EDUCATION PROFESSOR/NOVELTY BALLOON ASSEMBLER AND PACKER TO OBSERVE FOR RISK FOR FALLS AND INSTRUCT IN FALL PREVENTION, HOME SAFETY, MEDICATION MANAGEMENT, INFECTION PREVENTION, AND NUTRITION MANAGEMENT. RN/LITERACY EDUCATION PROFESSOR/NOVELTY BALLOON ASSEMBLER AND PACKER NURSE MAY PERFORM O2 SATURATION LEVEL ON ADMISSION AND PRN FOR RN TO ASSESS/LITERACY EDUCATION PROFESSOR TO OBSERVE PATIENT, WITH NOTIFICATION TO THE PHYSICIAN IF SATURATION IS 90% IN THE ABSENCE OF MORE SPECIFIC PARAMETERS FROM THE PHYSICIAN. AGENCY MAY PERFORM A RESUMPTION OF CARE VISIT FOLLOWING ANY HOSPITAL ADMISSION. RN/LITERACY EDUCATION PROFESSOR/NOVELTY BALLOON ASSEMBLER AND PACKER TO MONITOR CO-MORBID CONDITIONS LISTED ON THE PLAN OF CARE AND ANY NEW CONDITIONS THAT PRESENT THEMSELVES DURING THIS EPISODE TO IDENTIFY CHANGES AND INTERVENE TO MINIMIZE COMPLICATIONS. [code = RN TO OBSERVE, ASSESS, EVALUATE, AND DEVELOP AN INDIVIDUALIZED PLAN OF CARE. AGENCY MAY ACCEPT ORDERS FROM CONSULTING PHYSICIANS. RN TO OBSERVE AND ASSESS, LITERACY EDUCATION PROFESSOR/NOVELTY BALLOON ASSEMBLER AND PACKER TO OBSERVE FOR RISK FOR FALLS AND INSTRUCT IN FALL PREVENTION, HOME SAFETY, MEDICATION MANAGEMENT, INFECTION PREVENTION, AND NUTRITION MANAGEMENT. RN/LITERACY EDUCATION PROFESSOR/NOVELTY BALLOON ASSEMBLER AND PACKER NURSE MAY PERFORM O2 SATURATION LEVEL ON ADMISSION AND PRN FOR RN TO ASSESS/LITERACY EDUCATION PROFESSOR TO OBSERVE PATIENT, WITH NOTIFICATION TO THE PHYSICIAN IF SATURATION IS 90% IN THE ABSENCE OF MORE SPECIFIC PARAMETERS FROM THE PHYSICIAN. AGENCY MAY PERFORM A RESUMPTION OF CARE VISIT FOLLOWING ANY HOSPITAL ADMISSION. RN/LITERACY EDUCATION PROFESSOR/NOVELTY BALLOON ASSEMBLER AND PACKER TO MONITOR CO-MORBID CONDITIONS LISTED ON THE PLAN OF CARE AND ANY NEW CONDITIONS THAT PRESENT THEMSELVES DURING THIS EPISODE TO IDENTIFY CHANGES AND INTERVENE TO MINIMIZE COMPLICATIONS.] Future Scheduled Test MEDICATION MANAGEMENT; RN/LITERACY EDUCATION PROFESSOR/NOVELTY BALLOON ASSEMBLER AND PACKER TO REVIEW MEDICATIONS FOR INTERACTIONS, EFFECTIVENESS OF DRUG THERAPY, AND SIGNS/SYMPTOMS OF ADVERSE REACTIONS. MAY INSTRUCT AND REINFORCE MEDICATION TEACHING RELATED TO THE USE OF MEDICATIONS, DOSAGE, FREQUENCY, PURPOSE, SIDE EFFECTS, AND TO REPORT COMPLICATIONS. [code = MEDICATION MANAGEMENT; RN/LITERACY EDUCATION PROFESSOR/NOVELTY BALLOON ASSEMBLER AND PACKER TO REVIEW MEDICATIONS FOR INTERACTIONS, EFFECTIVENESS OF DRUG THERAPY, AND SIGNS/SYMPTOMS OF ADVERSE REACTIONS. MAY INSTRUCT AND REINFORCE MEDICATION TEACHING RELATED TO THE USE OF MEDICATIONS, DOSAGE, FREQUENCY, PURPOSE, SIDE EFFECTS, AND TO REPORT COMPLICATIONS.] Future Scheduled Test RISK FOR H OSPITALIZATION; RN TO ASSESS/TEACH, NOVELTY BALLOON ASSEMBLER AND PACKER/LITERACY EDUCATION PROFESSOR TO OBSERVE/TEACH PATIENT/CAREGIVER ON RISK FOR HOSPITALIZATION/EMERGENCY ROOM VISITS, TEACH SIGNS AND SYMPTOMS THAT PUT PATIENT AT RISK, WHEN TO NOTIFY NURSE/PHYSICIAN OF COMPLICATIONS/DECLINE, AND WHEN TO CALL 911. [code = RISK FOR HOSPITALIZATION; RN TO ASSESS/TEACH, NOVELTY BALLOON ASSEMBLER AND PACKER/LITERACY EDUCATION PROFESSOR TO OBSERVE/TEACH PATIENT/CAREGIVER ON RISK FOR HOSPITALIZATION/EMERGENCY ROOM VISITS, TEACH SIGNS AND SYMPTOMS THAT PUT PATIENT AT RISK, WHEN TO NOTIFY NURSE/PHYSICIAN OF COMPLICATIONS/DECLINE, AND WHEN TO CALL 911.] Future Scheduled Test CARDIOVASC ULAR SYSTEM; RN TO ASSESS/TEACH, LITERACY EDUCATION PROFESSOR/NOVELTY BALLOON ASSEMBLER AND PACKER TO OBSERVE/TEACH RELATED TO ALTERED CARDIOVASCULAR STATUS TO MINIMIZE COMPLICATIONS AND REDUCE HOSPITALIZATION. [code = CARDIOVASCULAR SYSTEM; RN TO ASSESS/TEACH, LITERACY EDUCATION PROFESSOR/NOVELTY BALLOON ASSEMBLER AND PACKER TO OBSERVE/TEACH RELATED TO ALTERED CARDIOVASCULAR STATUS TO MINIMIZE COMPLICATIONS AND REDUCE HOSPITALIZATION.] Future Scheduled Test HYPOTENSIO N MANAGEMENT; RN TO ASSESS AND TEACH/ LITERACY EDUCATION PROFESSOR /NOVELTY BALLOON ASSEMBLER AND PACKER TO OBSERVE AND TEACH WARNING SIGNS AND SYMPTOMS TO AVOID HOSPITALIZATION. [code = HYPOTENSION MANAGEMENT; RN TO ASSESS AND TEACH/ LITERACY EDUCATION PROFESSOR /NOVELTY BALLOON ASSEMBLER AND PACKER TO OBSERVE AND TEACH WARNING SIGNS AND SYMPTOMS TO AVOID HOSPITALIZATION.] Future Scheduled Test PAIN MANAG EMENT; RN TO ASSESS AND TEACH, NOVELTY BALLOON ASSEMBLER AND PACKER/LITERACY EDUCATION PROFESSOR TO OBSERVE AND TEACH AND PROVIDE EDUCATION ON PAIN MANAGEMENT TECHNIQUES. [code = PAIN MANAGEMENT; RN TO ASSESS AND TEACH, NOVELTY BALLOON ASSEMBLER AND PACKER/LITERACY EDUCATION PROFESSOR TO OBSERVE AND TEACH AND PROVIDE EDUCATION ON PAIN MANAGEMENT TECHNIQUES.] Future Scheduled Test RESPIRATOR Y SYSTEM MANAGEMENT; RN TO ASSESS AND TEACH, LITERACY EDUCATION PROFESSOR/NOVELTY BALLOON ASSEMBLER AND PACKER TO OBSERVE AND TEACH RELATED TO ALTERED RESPIRATORY STATUS TO MINIMIZE COMPLICATIONS AND REDUCE HOSPITALIZATION. [code = RESPIRATORY SYSTEM MANAGEMENT; RN TO ASSESS AND TEACH, LITERACY EDUCATION PROFESSOR/NOVELTY BALLOON ASSEMBLER AND PACKER TO OBSERVE AND TEACH RELATED TO ALTERED RESPIRATORY STATUS TO MINIMIZE COMPLICATIONS AND REDUCE HOSPITALIZATION.] Future Scheduled Test COPD MANAG EMENT; RN TO ASSESS AND TEACH, LITERACY EDUCATION PROFESSOR/NOVELTY BALLOON ASSEMBLER AND PACKER TO OBSERVE AND TEACH SIGNS/SYMPTOMS OF COPD EXACERBATION AND PROVIDE EARLY INTERVENTIONS TO MINIMIZE RISK OF HOSPITALIZATION. RN/LITERACY EDUCATION PROFESSOR/NOVELTY BALLOON ASSEMBLER AND PACKER TO INSTRUCT ON SELF-CARE MANAGEMENT INCLUDING BREATHING TECHNIQUES, AIRWAY CLEARANCE, AND PROPER USE OF COPD MEDICATIONS. RN TO ASSESS AND TEACH, LITERACY EDUCATION PROFESSOR/NOVELTY BALLOON ASSEMBLER AND PACKER TO OBSERVE AND TEACH PATIENT/CAREGIVER ABILITY TO MONITOR AND RECORD VITAL SIGNS INCLUDING PULSE OXIMETRY AND BLOOD PRESSURE. [code = COPD MANAGEMENT; RN TO ASSESS AND TEACH, LITERACY EDUCATION PROFESSOR/NOVELTY BALLOON ASSEMBLER AND PACKER TO OBSERVE AND TEACH SIGNS/SYMPTOMS OF COPD EXACERBATION AND PROVIDE EARLY INTERVENTIONS TO MINIMIZE RISK OF HOSPITALIZATION. RN/LITERACY EDUCATION PROFESSOR/NOVELTY BALLOON ASSEMBLER AND PACKER TO INSTRUCT ON SELF-CARE MANAGEMENT INCLUDING BREATHING TECHNIQUES, AIRWAY CLEARANCE, AND PROPER USE OF COPD MEDICATIONS. RN TO ASSESS AND TEACH, LITERACY EDUCATION PROFESSOR/NOVELTY BALLOON ASSEMBLER AND PACKER TO OBSERVE AND TEACH PATIENT/CAREGIVER ABILITY TO MONITOR AND RECORD VITAL SIGNS INCLUDING PULSE OXIMETRY AND BLOOD PRESSURE.] Future Scheduled Test FALL REDUC TION MANAGEMENT; RN TO ASSESS AND OBSERVE, LITERACY EDUCATION PROFESSOR/NOVELTY BALLOON ASSEMBLER AND PACKER TO OBSERVE FALL RISK FACTORS AND EDUCATE PATIENT/CAREGIVER ON STRATEGIES TO MINIMIZE THE RISK OF FALLING. [code = FALL REDUCTION MANAGEMENT; RN TO ASSESS AND OBSERVE, LITERACY EDUCATION PROFESSOR/NOVELTY BALLOON ASSEMBLER AND PACKER TO OBSERVE FALL RISK FACTORS AND EDUCATE PATIENT/CAREGIVER ON STRATEGIES TO MINIMIZE THE RISK OF FALLING.] Future Scheduled Test AGENCY MAY PERFORM A RESUMPTION OF CARE VISIT FOLLOWING ANY HOSPITAL ADMISSION. OT TO EVALUATE, OBSERVE / ASSESS, AND MONITOR, YOHANNES TO OBSERVE AND MONITOR, PROVIDE SKILLED THERAPEUTIC INTERVENTION, ACTIVITY, EDUCATION, AND TRAINING TO ADDRESS; BATHING/SHOWERING (OT/YOHANNES) ACTIVITIES OF DAILY LIVING (OT/SCORE CALLER) MEAL PREPARATION AND CLEANUP (OT/SCORE CALLER) LAUNDRY MANAGEMENT (OT/YOHANNES) BATH/SHOWER TRANSFER (OT/SCORE CALLER) HOME ACTIVITY / EXERCISE PROGRAM (OT/YOHANNES) POSTURAL CONTROL/BALANCE (OT/SCORE CALLER) OT/SCORE CALLER TO MONITOR AND EDUCATE ON OXYGEN SATURATION DURING ADLS/IADLS, NOTIFY PHYSICIAN AND/OR THE RN CLINICAL AERIAL SURVEY TECHNICIAN FOR PHYSICIAN NOTIFICATION AND IF O2 SATS BELOW 90% AFTER 10 MIN OF REST. OT/SCORE CALLER MAY EDUCATE ON PAIN MANAGEMENT CLINICALLY INDICATED. OT / SCORE CALLER TO IDENTIFY FALL RISK FACTORS; EDUCATE THE PATIENT/CAREGIVER ON WAYS TO REDUCE FALL RISK FACTORS AND ESTABLISH HOME EXERCISE PROGRAM TO MINIMIZE FALL RISK. MAY TEACH THE PATIENT FLOOR RECOVERY WHEN CLINICALLY APPROPRIATE. [code = AGENCY MAY PERFORM A RESUMPTION OF CARE VISIT FOLLOWING ANY HOSPITAL ADMISSION. OT TO EVALUATE, OBSERVE / ASSESS, AND MONITOR, SCORE CALLER TO OBSERVE AND MONITOR, PROVIDE SKILLED THERAPEUTIC INTERVENTION, ACTIVITY, EDUCATION, AND TRAINING TO ADDRESS; BATHING/SHOWERING (OT/YOHANNES) ACTIVITIES OF DAILY LIVING (OT/SCORE CALLER) MEAL PREPARATION AND CLEANUP (OT/SCORE CALLER) LAUNDRY MANAGEMENT (OT/YOHANNES) BATH/SHOWER TRANSFER (OT/YOHANNES) HOME ACTIVITY / EXERCISE PROGRAM (OT/SCORE CALLER) POSTURAL CONTROL/BALANCE (OT/SCORE CALLER) OT/SCORE CALLER TO MONITOR AND EDUCATE ON OXYGEN SATURATION DURING ADLS/IADLS, NOTIFY PHYSICIAN AND/OR THE RN CLINICAL AERIAL SURVEY TECHNICIAN FOR PHYSICIAN NOTIFICATION AND IF O2 SATS BELOW 90% AFTER 10 MIN OF REST. OT/SCORE CALLER MAY EDUCATE ON PAIN MANAGEMENT CLINICALLY INDICATED. OT / SCORE CALLER TO IDENTIFY FALL RISK FACTORS; EDUCATE THE PATIENT/CAREGIVER ON WAYS TO REDUCE FALL RISK FACTORS AND ESTABLISH HOME EXERCISE PROGRAM TO MINIMIZE FALL RISK. MAY TEACH THE PATIENT FLOOR RECOVERY WHEN CLINICALLY APPROPRIATE.] Future Scheduled Test AGENCY MAY PERFORM A RESUMPTION OF CARE VISIT FOLLOWING ANY HOSPITAL ADMISSION. PT TO EVALUATE, OBSERVE / ASSESS, AND MONITOR, ART EDITOR TO OBSERVE AND MONITOR, PROVIDE SKILLED THERAPEUTIC INTERVENTION, ACTIVITY, EDUCATION, AND TRAINING TO ADDRESS; PT/ART EDITOR TO PROVIDE GAIT TRAINING FOR IMPROVED MOBILITY AND /OR TO NORMALIZE GAIT PATTERN NEUROMUSCULAR RE-EDUCATION / BALANCE / POSTURAL CONTROL (PT) THERAPEUTIC EXERCISES AND ESTABLISHING A HOME EXERCISE PROGRAM (PT/ART EDITOR) PT/ART EDITOR TO PROVIDE STAIR TRAINING PT TO ASSESS / ART EDITOR TO MONITOR FOR AND REPORT EARLY SIGNS OF ANTICOAGULANT TOXICITY TO THE PHYSICIAN AND/OR THE RN CLINICAL AERIAL SURVEY TECHNICIAN FOR PHYSICIAN NOTIFICATION AND TO PROVIDE PATIENT/CAREGIVER EDUCATION ON ANTICOAGULANT THERAPY PT / ART EDITOR TO MONITOR AND EDUCATE ON OXYGEN SATURATION DURING ADLS/IADLS, NOTIFY PHYSICIAN AND/OR THE RN CLINICAL AERIAL SURVEY TECHNICIAN FOR PHYSICIAN NOTIFICATION AND IF O2 SATS BELOW PHYSICIAN ORDERED PARAMETERS AFTER 10 MIN OF REST PT / ART EDITOR MAY EDUCATE ON PAIN MANAGEMENT CLINICALLY INDICATED, INCLUDING NON-PHARMACOLOGICAL PAIN REDUCTION TECHNIQUES AND USE OF OR HEAT UP TO 20 MIN AT A TIME FOR PAIN MANAGEMENT 3 TIMES PER DAY TO PT TO ASSESS / ART EDITOR TO MONITOR CARDIO/RESPIRATORY SYSTEM; AND NOTIFY THE PHYSICIAN AND/OR THE RN CLINICAL AERIAL SURVEY TECHNICIAN FOR PHYSICIAN NOTIFICATION FOR EARLY SIGNS AND SYMPTOMS OF EXACERBATION OR DETERIORATION. PT/ART EDITOR TO IDENTIFY FALL RISK FACTORS; EDUCATE THE PATIENT/CAREGIVER ON WAYS TO REDUCE FALL RISK FACTORS AND ESTABLISH HOME EXERCISE PROGRAM TO MINIMIZE FALL RISK. MAY TEACH THE PATIENT FLOOR RECOVERY WHEN CLINICALLY APPROPRIATE [code = AGENCY MAY PERFORM A RESUMPTION OF CARE VISIT FOLLOWING ANY HOSPITAL ADMISSION. PT TO EVALUATE, OBSERVE / ASSESS, AND MONITOR, ART EDITOR TO OBSERVE AND MONITOR, PROVIDE SKILLED THERAPEUTIC INTERVENTION, ACTIVITY, EDUCATION, AND TRAINING TO ADDRESS; PT/ART EDITOR TO PROVIDE GAIT TRAINING FOR IMPROVED MOBILITY AND /OR TO NORMALIZE GAIT PATTERN NEUROMUSCULAR RE-EDUCATION / BALANCE / POSTURAL CONTROL (PT) THERAPEUTIC EXERCISES AND ESTABLISHING A HOME EXERCISE PROGRAM (PT/ART EDITOR) PT/ART EDITOR TO PROVIDE STAIR TRAINING PT TO ASSESS / ART EDITOR TO MONITOR FOR AND REPORT EARLY SIGNS OF ANTICOAGULANT TOXICITY TO THE PHYSICIAN AND/OR THE RN CLINICAL AERIAL SURVEY TECHNICIAN FOR PHYSICIAN NOTIFICATION AND TO PROVIDE PATIENT/CAREGIVER EDUCATION ON ANTICOAGULANT THERAPY PT / ART EDITOR TO MONITOR AND EDUCATE ON OXYGEN SATURATION DURING ADLS/IADLS, NOTIFY PHYSICIAN AND/OR THE RN CLINICAL AERIAL SURVEY TECHNICIAN FOR PHYSICIAN NOTIFICATION AND IF O2 SATS BELOW PHYSICIAN ORDERED PARAMETERS AFTER 10 MIN OF REST PT / ART EDITOR MAY EDUCATE ON PAIN MANAGEMENT CLINICALLY INDICATED, INCLUDING NON-PHARMACOLOGICAL PAIN REDUCTION TECHNIQUES AND USE OF OR HEAT UP TO 20 MIN AT A TIME FOR PAIN MANAGEMENT 3 TIMES PER DAY TO PT TO ASSESS / ART EDITOR TO MONITOR CARDIO/RESPIRATORY SYSTEM; AND NOTIFY THE PHYSICIAN AND/OR THE RN CLINICAL AERIAL SURVEY TECHNICIAN FOR PHYSICIAN NOTIFICATION FOR EARLY SIGNS AND SYMPTOMS OF EXACERBATION OR DETERIORATION. PT/ART EDITOR TO IDENTIFY FALL RISK FACTORS; EDUCATE THE [...] End Date/Time Encounter Type Admission Type Attending [facility] Care Department Encounter ID Discharge Date Discharge Status Discharge Condition Discharge Reason Percent Goals Met 2024-11-22 00:00:00 2025-01-20 00:00:00 Outpatient RECERTIFIC PAULETTE FRITZ [facility] [id number]
== END 2025-01-01 10:58 | disposition home or self-care (01) ==
PROVIDERS: PCP Internal Medicine; Visit Provider Registered Nurse Emergency
DX: M51.362 Other intervertebral disc degeneration, lumbar region with discogenic back pain and lower extremity pain (principal); S32.040D Wedge compression fracture of fourth lumbar vertebra, subsequent encounter for fracture with routine healing; S32.010A Wedge compression fracture of first lumbar vertebra, initial encounter for closed fracture; M48.56XA Collapsed vertebra, not elsewhere classified, lumbar region, initial encounter for fracture; M54.9 Dorsalgia, unspecified; G89.29 Other chronic pain; M43.10 Spondylolisthesis, site unspecified; Z98.890 Other specified postprocedural states
CPT/HCPCS: 99024

== ENCOUNTER → 2025-01-01 10:19 | Outpatient (BNVA) | payer MEDICARE, MEDICAID, SELFPAY | PROVIDERS: PCP Internal Medicine; Visit Provider Registered Nurse Emergency | DX: Z47.89 Encounter for other orthopedic aftercare (principal) | CPT/HCPCS: 99212 ==

== ENCOUNTER 2025-01-06 14:34 | Emergency (ER) | payer MEDICARE, MEDICAID, SELFPAY ==
[2025-01-06] VITALS (7 sets, daily range): BP systolic 120–141; BP diastolic 70–90; PULSE 75–113; RESP 18–22; TEMP 36.2–37.1; O2SAT 79–99; BMI 16.6
--- NOTE | ~2025-01-06 | XR_ITS ---
EXAMINATION: XR CHEST CLINICAL INFORMATION: sob COMPARISON: January 12, 2022 TECHNIQUE: Frontal view of the chest was obtained. FINDINGS: There is persistent hyperexpansion of the lungs. There is new opacity in the left lung base and mild elevation of the diaphragm. Heart size is within normal limits. Mediastinal structures are unchanged. Pleural line is present in the left apex consistent with a small pneumothorax. XR/XR chest 1V IMPRESSION: Small left apical pneumothorax. Left basilar atelectasis versus pneumonia. Abi Sorenson, NEHEMIAS notified via [place] text at 2:40pm ET Electronically signed by: Ankit Lam MD 01/06/2025 04:42 PM EDT
--- NOTE | ~2025-01-06 | CT_ITS ---
CLINICAL HISTORY: sob fall, recent kyphoplasty CT angiography chest, abdomen and pelvis with contrast. 3D Postprocessing. Comparison: CT - CT ANGIO CHEST AORTA - 01/06/25 17:24 EDT Findings: The heart size is normal. RV/LV ratio is normal. Unremarkable thoracic aorta and great vessels. No aneurysm. The visualized thyroid and mediastinum are unremarkable. Small left-sided pneumothorax estimated at 20-30%. There are moderate emphysematous changes. There is a peripheral focus of consolidation and volume loss within the left lower lobe. This has masslike qualities. Additional ground-glass and linear opacities within the left lung likely secondary to atelectasis. Trace left pleural effusion. Severe hydronephrosis of the right kidney. The right ureter does not appear to be dilated and there is no visible ureteral stone. There is a tiny nonobstructive calculus within the upper pole of the right kidney. There is mild dilatation of the pancreatic duct. There is no pancreatic mass or edema. The liver, spleen and adrenal glands are unremarkable. There is focal thickening of the wall of the antrum of the stomach. There is no colitis or bowel obstruction. Pelvic contents unremarkable. There are acute fractures of the left 9th and 10th ribs. There is a severe compression fracture of the L1 level with significant interval increase. Retropulsion of bone is present estimated at 12 mm with worsening. This causes a mild degree of central canal stenosis. There are multiple additional chronic appearing rib fractures. There is a compression fracture at L3 status post vertebroplasty. There is an avulsion fracture of the left greater trochanter, new since the prior study. There are moderately severe atherosclerotic changes. There is vascular tortuosity. There is mild multifocal dilatation of the abdominal aorta which measures up to 2.5 cm. No dissection. Major aortic branches are patent without stenosis. The visualized great vessels are patent without significant stenosis. IMPRESSION: 1. Small left-sided pneumothorax estimated at 20-30%. 2. Trace left pleural effusion. 3. Acute avulsion fracture of the left greater trochanter. Acute fractures of the left 9th and 10th ribs. Severe compression fracture of L1 with significant worsening in both the degree of height loss and in the degree of retropulsion of bone. 4. There is a focus of consolidation and volume loss within the left lower lobe which has masslike qualities. This may represent a focus of atelectasis or contusion. Underlying mass not excluded. Recommend 1 month follow-up CT. 5. There is focal thickening of the wall of the antrum of the stomach which may be secondary to under distention, gastritis or neoplasm. 6. Severe hydronephrosis of the right kidney without change. This document has been electronically signed by: Sharda Cardona MD on 01/06/2025 18:47:32
--- NOTE | ~2025-01-06 | CT_ITS ---
CLINICAL HISTORY: fell unwitnessed, not sure if hit head CT head without contrast Comparison: None provided Findings: No intra-axial mass, midline shift, hydrocephalus, or acute hemorrhage. Involutional change of brain parenchyma, compatible with age. [id number] white matter disease. There is opacification of the right maxillary sinus. There are no air-fluid levels. The orbits are within normal limits. No skull fracture. IMPRESSION: 1. No acute intracranial findings. This document has been electronically signed by: Sharda Cardona MD on 01/06/2025 18:31:02
--- NOTE | ~2025-01-06 | XR_ITS ---
EXAMINATION: XR KNEE, RIGHT CLINICAL INFORMATION: fell pain COMPARISON: None available. TECHNIQUE: AP and lateral views of the right knee. FINDINGS: There is moderate narrowing of the medial joint space and mild narrowing of the lateral joint space. There is linear and globular chondrocalcinosis visible in the medial and lateral joint lines. There are subtle osteophytes along the medial joint line. No joint effusion is present. Mild multifocal atherosclerotic calcifications are present. No definite fracture line is identified. On the lateral, there is a vague sclerotic bands extending from anterior posterior tibial metaphysis. XR/XR knee RT 2V IMPRESSION: Chondrocalcinosis and mild osteoarthritis. No definite fracture line is identified. On the lateral, there is a vague sclerotic bands extending from anterior posterior tibial metaphysis. Consider bilateral oblique views if there is continued concern. Electronically signed by: Ankit Lam MD 01/06/2025 04:36 PM EDT
--- NOTE | 2025-01-06 15:53 | ECG_ITS ---
Test Reason : fall Blood Pressure : */* mmHG Vent. Rate : 110 BPM Atrial Rate : 110 BPM P-R Int : 154 ms QRS Dur : 66 ms QT Int : 320 ms P-R-T Axes : 75 27 44 degrees QTcB Int : 433 ms Sinus tachycardia Low voltage QRS Cannot rule out Anterior infarct (cited on or before 24-Apr-2024) Abnormal ECG When compared with ECG of 30-Sep-2024 12:11, Premature atrial complexes are no longer Present Questionable change in initial forces of Septal leads Referred By: Abi Sorenson Electronically Signed By: Kishore De Oliveira
--- NOTE | 2025-01-06 15:53 | ED_ITS ---
HPI - Fall General Chief Complaint: Fall Stated Complaint: FALL, BACK PAIN, HX BACK SURGERY 1 WEEK AGO Time Seen by Provider: 01/06/25 15:44 Source: patient, family, RN notes reviewed and old records reviewed Mode of arrival: EMS Limitations: no limitations History of Present Illness ED Provider: Abi Sorenson PA-C HPI Narrative: 74-year-old female with history of recent kyphoplasty 2 weeks ago presenting to emergency department today status post a fall while trying to load her furnace. Past medical history significant for compression fracture of the lumbar spine, osteopenia, SIADH, osteopenia, spondylolisthesis, peripheral polyneuropathy, HLD, anemia, hypertension and COPD. She is unsure whether or not she lost consciousness but does recall being only on the ground for approximately 30 minutes. She is reporting shortness of breath and on arrival was 79% on room air with no prior oxygen dependence. She was placed on 4 L nasal cannula and was able to get her up to 94%. Patient has been smoking cigarettes since her surgery she eating late. She reports shortness of breath with exertion but is most concerned about her right anterior knee for which she is clutching. She is accompanied by her sister who lives nearby. Patient lives alone. She is denying any associated neck or back pain but does have both pelvic pain and chest discomfort. Hurts for her to rotate her chest. Patient is not on any anticoagulation. She denies feeling confused and no paresthesias. She has not have a headache and does not feel dizzy. She denies any symptoms preceding her fall. Typically she uses a walker to ambulate in between places. MD complaint: fall and other (sob) Fall from: standing (white bending over) Fall witnessed: no Related Data Home Medications ?Medication ?Instructions ?Recorded ?Confirmed aspirin 81 mg chewable tablet 81 mg PO DAILY 02/22/20 12/23/24 (Doyle Chewable Low Dose Aspirin) calcium carbonate (Calcium 600) 600 mg PO DAILY 12/23/24 multivitamin 1 tab PO DAILY 04/24/2412/05 albuterol sulfate 90 mcg/actuation 1 inh inhalation Q4 H PRN Wheezing 09/30/24 12/23/24 aerosol inhaler fluticasone furoate 50 1 inh inhalation BID 5 12/23/24 mcg-vilanterol 25 mcg/dose inhalation powder (Breo Ellipta) naproxen 500 mg tablet 500 mg PO DAILY PRN Pain 11/2712/23/24 Previous Rx's ?Medication ?Instructions ?Recorded acetaminophen 325 mg tablet 975 mg (3 x 325 mg) PO Q6H #20 tabs 10/04/24 gabapentin 100 mg capsule 100 mg PO TID #90 caps 10/30 sodium chloride 1,000 mg soluble 1,000 mg PO DAILY #30 tabs 12/10/24 tablet nicotine 14 mg/24 hr daily 1 patch transdermal Q24H #2 8 ea 12/21/24 transdermal patch tramadol 50 mg tablet 50 mg PO Q6H PRN postoperati ve 12/25/24 pain 5 days #20 tabs Allergies Allergy/AdvReac Type Severity Reaction Status Date / Time No Known Allergies (No Known Allergy Verified 01/06/25 14:52 Allergies*) Review of Systems 2 Review of Systems: Yes all other systems are reviewed and are negative PMFSH Past Medical History Attestation statement: The following information was validated with the patient. Source: old records reviewed, obtained from family and nursing notes reviewed Medical History Hyponatremia Compression fracture of L1 lumbar vertebra SIADH (syndrome of inappropriate ADH production) De Quervain's tenosynovitis, left Arthritis of hand, left, degenerative Hearing impairment Smoker Depression Anxiety Osteoporosis Urinary urgency Urinary incontinence Varicose veins of bilateral lower extremities with pain Peripheral polyneuropathy Pure hypercholesterolemia Anemia Compression fracture of L4 vertebra with routine healing Lumbar degenerative disc disease Benign essential hypertension COPD (chronic obstructive pulmonary disease) Surgical History History of cystoscopy History of bilateral cataract extraction Family History Family History Father No problems noted. Mother Lung cancer Sister Down syndrome Maternal Grandfather Lung cancer Maternal Grandmother Lung cancer Other Hyponatremia Social History Social History Household Members: None Housing: House Are you a primary lawn care specialist to a significant other at home: No Do you presently have visiting nurse or other home services: No Alcohol intake: never Patient Tobacco Use Status: Current everyday Tobacco user Tobacco use type: Cigarette Cigarette Packs Per Day: 1 Cigarettes Per Day: 20.0 Smoked in Last 30 Days: Yes e-Cigarette/Vaping Use: Never Used Second Hand Smoke Exposure: No Use of substances other than those prescribed or required for medical reasons: No Advance Directives: Yes Advance Directives on File: Yes Advance Directives Date on File: 04/10/24 Do you have a plan to hurt others: No Plan service: No Current occupational status: retired Cognitive needs: No Hearing needs: Yes Vision needs: Yes (Glasses) Physical Exam 2 Exam: Exam: General: Appears in no acute distress, appears well nourished body habitus is underweight, appears stated age. No septic or ill-appearing. Vitals reviewed normal, PMH/Social and Surgical hx reviewed including allergies and current medications. - surgical wound evaluated on the back it only looks like a hairline scratch no seroma or hematoma no midline tenderness step-offs or deformities. Slight pain with pelvic rocking soft nonrigid abdomen. Head: Normocephalic, no obvious trauma or skin lesions noted. Eyes: EOMI, no raccoon eyes no jiménez sign no saddle side, no septal hematoma no hemotympanum noted bilaterally no mid facial instability, cranial nerves 2-12 intact it application architect strength is 4+ throughout sensation is fully intact cap refill less 3 seconds. Pulses 2+ ENMT: moist oral mucosa Neck: trachea midline Cardiovascular: peripheral perfusion normal, Regular heart rate tachycardic Respiratory: no respiratory distress the hypoxic noted on the monitor not breathless bilateral anterior chest wall tenderness upper ribs but no crepitus or ecchymosis Abdomen: nondistended, slight tenderness over pelvic region no GT tenderness no sciatic notch tenderness no evidence of bleeding on exam Extremities: warm , moving right knee with slight difficulty-Patient guarding holding her right anterior knee pain with palpation over right anterior knee but no obvious deformity or ecchymosis Psych: Cooperative, calm Neuro: AOx4, GCS15, rectal tone strong, skin fully exposed Vital Signs: Vital Signs: Last Vital Signs Temp 98.7 F 01/06/25 19:27 Pulse 107 H 01/06/25 19:27 Resp 20 01/06/25 19:27 BP 126/77 01/06/25 19:27 Pulse Ox 97 01/06/25 19:27 O2 Del Method Nasal Cannula 01/06/25 19:27 O2 Flow Rate 3 01/06/25 19:27 BMI result Body Mass Index 16.6 Course Reevaluation(s) Reevaluation #1: patient received in sign-out at change of shift pending imaging. I received a call from [facility] Radiology, the patient has a left pneumothorax estimated at 20-30 percent in the left apex. Acute fractures of the left 9th and 10th ribs, a left hip fracture that is described as an avulsion of the greater trochanter, and a worsening L1 compression fracture. I evaluated the patient, she reports being fairly comfortable at rest but has significant pain to her left chest, hip with any kind of movement. She was somewhat tachycardic to about 102, blood pressure was stable and she is not tachypneic. I placed a call to [facility] transfer line due to the multiple traumatic injuries. Time: 19:03 Reevaluation #2: Unfortunately the trauma team was busy at [facility], I was able to speak to an ER physician, Dr. Buckley who will accept transfer of care for a trauma consult. Transport will be booked. I did ask Radiology Department to upload the images for mutual viewing and provide discs for the patient. Time: 19:53 Medications Administered Discontinued Medications Generic Name Dose Route Start Last Admin Trade Name Freq PRN Reason Stop Dose Admin Iohexol 100 ml 01/06/25 18:05 01/06/25 18:05 Iohexol 350 Mg/Ml 100 Ml Infus..Btl IV 01/06/25 18:06 80 ml ONCE ONE Administration Morphine Sulfate 1 mg 01/06/25 15:53 01/06/25 16:09 Morphine Sulfate 2 Mg/Ml Cartridge IVPUSH 01/06/25 15:54 1 mg ONCE ONE Administration Protocol Morphine Sulfate 2 mg 01/06/25 19:06 01/06/25 19:23 Morphine Sulfate 2 Mg/Ml Cartridge IVPUSH 01/06/25 19:07 2 mg ONCE ONE Administration Protocol Medical Decision Making Medical Decision Making [facility] Narrative: 74-year-old female with history of osteopenia and COPD with recent kyphoplasty 2 weeks ago presenting to the emergency department today status post mechanical fall while attempting to load her furnace earlier today. She arrives to the ED with complaints of shortness of breath and right-sided knee pain. He is not on any anticoagulation. She is moderate risk for ICH via [place] head CT rule low risk for cervical spine fracture via nexus criteria. She has pelvic rocking tenderness and chest wall tenderness but no obvious ecchymosis. Surgical suture of her spine does not appear erythematous and no seroma. She has willson sensitivity over her right anterior knee but no obvious deformity. Her sensation is fully intact she is able to move her right knee but flexion is painful. She is A&O x4 GCS of 15. Secondary trauma exam not clinically significant monitor than her right knee pain. Based on her acute shortness of breath and of hypoxia we will willson scan patient with labs and keep her on 4 L of oxygen can not rule out PE. Given acute onset of her shortness of breath it is deemed unlikely that this is infectious etiology but could not rule out ACS we will also obtain cardiac enzymes. CXR shows small left apical pneumothorax and left basilar atelectasis vs pna (not likely pna in this acute hypoxic trauma setting), consulted with my attending physician Dr. Benitez. Plan to await CTA chest result before determining best intervention/ disposition- advised to keep patient with goal of 90% Sp02 to avoid rupturing any potential bleb. CTAs pending: case signed out to evening provider Maciel Daniels PA-C Differential Diagnosis Differential Diagnoses: The differential diagnosis associated with the presentation includes PE/ PTX ICH right knee fracture pelvic fracture acute respiratory failure Admission/Observation Consideration of admission/observation: Escalation of care including admission/observation considered Lab Data MDM Lab Attestation statement: I reviewed the patient's lab results. 01/06/25 15:59 01/06/25 15:59 Labs: Lab Results 01/06/25 01/06/25 Range/Units 15:59 16:03 WBC 12.5 H (4.8-10.8) X10*3/uL RBC 3.35 L (4.20-5.50) X10*6/uL Hgb 9.4 L (12.0-16.0) g/dl Hct 27.5 L (37.0-47.0) % MCV 82.1 (80.0-98.0) fL MCH 28.1 (27.0-33.0) pg MCHC 34.2 (31.0-35.0) g/dl RDW 13.7 (11.0-16.0) % Plt Count 431 H (160-400) X10*3/uL MPV 8.4 L (9.4-12.3) fL Immature Gran % (Auto) 0.9 H (0.0-0.4) % Neut % (Auto) 88.0 H (45-73) % Lymph % (Auto) 5.8 L (20-40) % [place] % (Auto) 5.0 (2-11) % Eos % (Auto) 0.0 (0-4) % Baso % (Auto) 0.3 (0-2) % Lymph # (Auto) 0.7 L (1.2-4.9) X10*3/uL [place] # (Auto) 0.6 (0.1-1.2) X10*3/uL Eos # (Auto) 0.0 (0.0-0.4) X10*3/uL Baso # (Auto) 0.0 (0.0-0.2) X10*3/uL Abs Immat Gran (auto) 0.11 H (0.00-0.03) X10*3/uL Absolute Neuts (auto) 11.0 H (2.0-8.3) x10*3/uL Absolute Nucleated RBC 0.000 (0.0-0.012) X10*3/uL Nucleated RBC % (auto) 0.0 (0.0-0.2) /100WBC PT 11.8 D (10.9-12.4) SEC INR 1.0 (0.9-1.1) Sodium 135 (135-145) mmol/L Potassium 3.8 (3.3-5.1) mmol/L Chloride 99 (96-108) mmol/L Carbon Dioxide 25 (22-29) mmol/L Anion Gap 15 (12-20) BUN 23 H (9-16) mg/dL Creatinine 0.71 (0.5-1.4) mg/dL Estim Creat Clear Calc 50.5 Estimated GFR > 60 Random Glucose 101 (60-115) mg/dL Calcium 9.4 (8.4-10.2) mg/dL Troponin I High Sens 14.5 D (<3.5-17.0) ng/L B-Natriuretic Peptide 226 H (<100) pg/mL Independent Interpretation I performed an independent interpretation of an: EKG, Plain X-Ray and CT Scan Interpretation: ekG: sinus tachy 110 bpm, no malignant arrhythmia CXR: small ptx left apical lung, atelectasis LLL Radiology Impression Discussion of test interpretation with radiology: I have reviewed the radiologist's reading. Radiologist Impression: left sided apical PTX, small, atelectasis LLL Independent Historian Clinical information obtained from an independent historian. History obtained from or confirmed by: EMS and Other (sister) Tests considered The following testing was considered but not selected: CT PE protocol, given PTX< will switch to CTA angio chest will still show PE and more so the extent of PTX Chronic Conditions Patient?s care impacted by: Other (osteopenia, COPD) Social Determinants Patient?s care significantly limited by Social Determinants of Health including: Other Social Determinant of Health Critical Care Time Critical Care Time Total Critical Care Time: 75 Attestation: This patient required critical care. Due to the fact that the patient required a significant amount of one on one physician ? patient contact time, ordering and review of studies, arranging urgent treatment with development of a management plan, evaluation of patient?s response to treatment with frequent reassessments, and discussions with other providers this patient required critical care time in excess of 30 minutes. Critical care time was indicated due to the inherent instability and/or potential for instability in this patient. The critical care time that is allocated to this patient is above and beyond any time spent on any other billable procedures performed on this patient. Discharge Plan Discharge Clinical Impression: Pneumothorax, Fracture of rib of left side, Closed fracture of greater trochanter of femur, Closed compression fracture of body of L1 vertebra Patient Disposition: [facility] Hospital Transfer Details: [facility] Prescriptions: No Action gabapentin 100 mg capsule 100 mg PO TID Qty: 90 3RF nicotine 14 mg/24 hr patch 24 hour 1 patch transdermal Q24H Qty: 28 0RF tramadol 50 mg tablet 50 mg PO Q6H PRN (Reason: postoperative pain) 5 Days Qty: 20 1RF multivitamin Tablet 1 tab PO DAILY albuterol sulfate 90 mcg/actuation HFA aerosol inhaler 1 inh inhalation Q4H PRN (Reason: Wheezing) Breo Ellipta 50-25 mcg/dose blister with device 1 inh inhalation BID acetaminophen 325 mg Tablet 975 mg PO Q6H Qty: 20 0RF aspirin [Doyle Chewable Aspirin] 81 mg tablet,chewable 81 mg PO DAILY calcium carbonate [Calcium 600] 600 mg calcium (1,500 mg) tablet 600 mg PO DAILY naproxen 500 mg tablet 500 mg PO DAILY PRN (Reason: Pain) sodium chloride 1,000 mg tablet,soluble 1,000 mg PO DAILY Qty: 30 1RF Print Language: Kinyarwanda
[2025-01-06 16:04] LABS: MANUAL DIFF FLAG NO
[2025-01-06 16:05] LABS: Hematocrit 27.5 % (37.0-47.0); Hemoglobin 9.4 g/dl (12.0-16.0); Imm Gran Abs Auto 0.11 X10*3/uL (0.00-0.03); Imm Gran Pct Auto 0.9 % (0.0-0.4); Lymphocytes Absolute Auto 0.7 X10*3/uL (1.2-4.9); Mean Corpuscular HGB Conc 34.2 g/dl (31.0-35.0); Mean Corpuscular Hemoglobin 28.1 pg (27.0-33.0); Mean Corpuscular Volume 82.1 fL (80.0-98.0); NRBC Abs Auto 0.000 X10*3/uL (0.0-0.012); NRBC Pct Auto 0.0 /100WBC (0.0-0.2); Platelet Count 431 X10*3/uL (160-400); Red Blood Count 3.35 X10*6/uL (4.20-5.50); White Blood Count 12.5 X10*3/uL (4.8-10.8)
[2025-01-06 16:24] LABS: Anion Gap 15 (12-20); Blood Urea Nitrogen 23 mg/dL (9-16); Calcium 9.4 mg/dL (8.4-10.2); Carbon Dioxide 25 mmol/L (22-29); Chloride 99 mmol/L (96-108); Creatinine Clr Calc Pharmacy 50.5; Estimated Glomerular Filt Rate > 60; Potassium 3.8 mmol/L (3.3-5.1); Sodium 135 mmol/L (135-145)
[2025-01-06 16:24] LABS: INTERNATIONAL NORM RATIO 1.0 (0.9-1.1); Prothrombin Time 11.8 SEC (10.9-12.4)
[2025-01-06 16:32] LABS: B Type Natriuretic Peptide 226 pg/mL (<100)
[2025-01-06 16:33] LABS: Troponin-I High Sensitivity 14.5 ng/L (<3.5-17.0)
--- NOTE | 2025-01-06 17:21 | PC.NURSE ---
Pt moved to ED4 from [facility]. Had a fall this morning, and reports she does not remember events prior to fall but does remember being on the floor for 30 min. After fall she began experiencing shortness of breath, chest pain, right knee pain and back pain. Pt spO2 found to be in 70s on room air. Shes currently on 4L maintaining an spO2 94-96%. Breathing unlabored. Pt ST on tele. Medicated as charted. Pending CT.
--- OUTSIDE RECORDS SUMMARY | 2025-01-06 17:39 | XMS_ITS | Encounter Summary ---
Author Organization [facility] Address [address] [place] [address] Care Team Providers Care Sales Utility Representative Name Role Phone Alan Chanel MD Primary Care Provider [phone] Encounter Details Date Type Department Care Team (Late st Contact Info) Description 06/04/2024 Lab Requisition [facility] Lab [address] [place] [address] Kenny Malave MD [address] [facility] [address] [place], [address] Other director long term care (current) drug therapy Social History Tobacco Use [...] PANEL Routine 06/04/2024 5:36 AM EST Other director long term care (current) drug therapy documented in this encounter Results * (ABNORMAL) Basic metabolic panel (06/04/2024 5:36 AM EST) Sodium 138 133 - 145 mmol/L LAB CHEMISTRY METHOD 06/04/2024 11:25 AM EST [facility] Potassium 3.2(L) 3.5 - 5.5 mmol/L LAB CHEMISTRY METHOD 06/04/2024 11:25 AM EST [facility] Chloride 102 96 - 110 mmol/L LAB CHEMISTRY METHOD 06/04/2024 11:25 AM EST [facility] CO2 28 21 - 32 mmol/L LAB CHEMISTRY METHOD 06/04/2024 11:25 AM [facility] Anion Gap 8 3 - 11 LAB CHEMISTRY METHOD 06/04/2024 11:25 AM [facility] Glucose 71 70 - 100 mg/dL LAB CHEMISTRY METHOD 06/04/2024 11:25 AM [facility] BUN 18 5 - 25 mg/dL LAB CHEMISTRY METHOD 06/04/2024 11:25 AM [facility] Creatinine 0.57 0.50 - 1.10 mg/dL LAB CHEMISTRY METHOD 06/04/2024 11:25 AM [facility] eGFR 95 >=60 mL/min/1. 73m2 LAB CHEMISTRY METHOD 06/04/2024 11:25 AM [facility] Comment:Calculation based on the Chronic Kidney Disease Epidemiology Collaboration (CKD-EPI) equation refit without adjustment for race. BUN/Creatinine Ratio 31.6 LAB CHEMISTRY METHOD 06/04/2024 11:25 AM [facility] Calcium 8.8 8.5 - 10.5 mg/dL LAB CHEMISTRY METHOD 06/04/2024 11:25 AM [facility] Blood Venous blood specimen / Unknown Venipuncture / Unknown 06/04/2024 5:36 AM EST 06/04/2024 9:58 AM EST us Kenny Malave MD LAB BLOOD ORDERABLES Final Resul t [facility] [address] [place] [address], documented in this encounter Visit Diagnoses Diagnosis Other fpc (current) drug therapy documented in this encounter Care Teams Sales Utility Representative Relationship Specialty Start Date End Date Alan Chanel MD [address] [place] [address] Dr [address] MAGEN Kruger PCP - General Internal Medicine 03/12/24 documented as of this encounter
--- OUTSIDE RECORDS SUMMARY | 2025-01-06 17:39 | XMS_ITS | Encounter Summary ---
Author Organization [facility] Address [address] [place] [address] Care Team Providers Care Geoscientist Name Role Phone Alan Chanel MD Primary Care Provider Encounter Details Date Type Department Care Team (Late st Contact Info) Description 04/13/2024 Lab Requisition [facility] Lab [address] [facility] [place] [address] Ever Reyna MD [address] [place] [id number] Encounter for other general examination Social History [...] LAB CHEMISTRY METHOD 04/13/2024 1:06 PM EST [facility] Potassium 4.0 3.5 - 5.5 mmol/L LAB CHEMISTRY METHOD 04/13/2024 1:06 PM EST [facility] Chloride 92(L) 96 - 110 mmol/L LAB CHEMISTRY METHOD 04/13/2024 1:06 PM EST [facility] CO2 26 21 - [...] ult [facility] [address] [place] [address], documented in this encounter Visit Diagnoses Diagnosis Encounter for other general examination documented in this encounter Care Teams Geoscientist Relationship Specialty Start Date End Date Alan Chanel MD [address] [place] [address] PCP - General Internal Medicine 03/12/24 documented as of this encounter
--- OUTSIDE RECORDS SUMMARY | 2025-01-06 17:39 | XMS_ITS | Encounter Summary ---
Author Organization [facility] Address [address] [place] [address] Care Team Providers Care Well Reactivator Operator Name Role Phone Alan Chanel MD Primary Care Provider [phone] Encounter Details Date Type Department Care Team (Late st Contact Info) Description 06/08/2024 Lab Requisition [facility] Lab [address] [place] [address] Kenny Malave MD 38 [facility] [address] [place], [address] Chronic obstructive pulmonary disease, unspecified (CMS/HCC [...] LAB CHEMISTRY METHOD 06/08/2024 11:51 AM EST [facility] Potassium 5.0 3.5 - 5.5 mmol/L LAB CHEMISTRY METHOD 06/08/2024 11:51 AM [facility] Comment:Results verified by repeat testing Chloride 102 96 - 110 mmol/L LAB CHEMISTRY METHOD 06/08/2024 11:51 AM [facility] CO2 26 21 - 32 mmol/L LAB CHEMISTRY METHOD 06/08/2024 11:51 AM [facility] Anion Gap 8 3 - 11 LAB CHEMISTRY METHOD 06/08/2024 11:51 AM [facility] Glucose 78 70 - 100 mg/dL LAB CHEMISTRY METHOD 06/08/2024 11:51 AM [facility] BUN 17 5 - 25 mg/dL LAB CHEMISTRY METHOD 06/08/2024 11:51 AM [facility] Creatinine 0.53 0.50 - 1.10 mg/dL LAB CHEMISTRY METHOD 06/08/2024 11:51 AM [facility] eGFR 97 >=60 mL/min/1. 73m2 LAB CHEMISTRY METHOD 06/08/2024 11:51 AM [facility] Comment:Calculation based on the Chronic Kidney Disease Epidemiology Collaboration (CKD-EPI) equation refit without adjustment for race. BUN/Creatinine Ratio 32.1 LAB CHEMISTRY METHOD 06/08/2024 11:51 AM [facility] Calcium 9.6 8.5 - 10.5 mg/dL LAB CHEMISTRY METHOD 06/08/2024 11:51 AM [facility] Blood Venous blood specimen / Unknown Venipuncture / Unknown 06/08/2024 7:16 AM EST 06/08/2024 9:26 AM EST us Kenny Malave MD LAB BLOOD ORDERABLES Final Resul t [facility] [address] [place] [address], * (ABNORMAL) Complete blood count (06/08/2024 7:16 AM EST) [facility] WBC 5.0 4.8 - 10.8 K/mcL LAB HEMETOLOGY METHOD 06/08/2024 10:15 AM [facility] RBC 3.80 3.80 - 4.80 M/mcL LAB HEMETOLOGY METHOD 06/08/2024 10:15 AM [facility] Hemoglobin 10.6(L) 11.5 - 16.0 g/dL LAB HEMETOLOGY METHOD 06/08/2024 10:15 AM [facility] Hematocrit 33.0(L) 35.0 - 47.0 % LAB HEMETOLOGY METHOD 06/08/2024 10:15 AM [facility] MCV 86.4 79.0 - 98.0 FL LAB HEMETOLOGY METHOD 06/08/2024 10:15 AM [facility] MCH 27.7 27.0 - 32.0 pcg LAB HEMETOLOGY METHOD 06/08/2024 10:15 AM [facility] MCHC 32.1 32.0 - 37.0 g/dL LAB HEMETOLOGY METHOD 06/08/2024 10:15 AM [facility] RDW 17.9(H) 11.0 - 15.0 % LAB HEMETOLOGY METHOD 06/08/2024 10:15 AM [facility] Platelets 516(H) 130 - 400 K/mcL LAB HEMETOLOGY METHOD 06/08/2024 10:15 AM [facility] MPV 8.5 7.0 - 11.0 FL LAB HEMETOLOGY METHOD 06/08/2024 10:15 AM [facility] NRBC 0.0 <1.0 % LAB HEMETOLOGY METHOD 06/08/2024 10:15 AM [facility] NRBC Absolute 0.00 <0.10 K/mcL LAB HEMETOLOGY METHOD 06/08/2024 10:15 AM EST [facility] Blood Venous blood specimen / Unknown Venipuncture / Unknown 06/08/2024 7:16 AM EST 06/08/2024 9:26 AM EST us Kenny Malave MD LAB BLOOD ORDERABLES Final Resul t [facility] [address] [place] [address], documented in this encounter Visit Diagnoses Diagnosis Chronic obstructive pulmonary disease, unspecified (CMS/HCC V24, CMS/HCC V28) documented in this encounter Care Teams Well Reactivator Operator Relationship Specialty Start Date End Date Alan Chanel MD [address] [place] [address] Dr [address] [place] PCP - General Internal Medicine 03/12/24 documented as of this encounter
--- OUTSIDE RECORDS SUMMARY | 2025-01-06 17:39 | XMS_ITS | Encounter Summary ---
Author Organization [facility] Address [address] [place] [address] Care Team Providers Care Bulk Receiver Name Role Phone Alan Chanel MD Primary Care Provider Encounter Details Date Type Department Care Team (Late st Contact Info) Description 04/12/2024 Lab Requisition [facility] - Main Lab [address] [facility] [place] [address] Ever Reyna MD [address] [place] [address] Encounter for other general examination Social History [...] AM EST) WBC 6.1 4.8 - 10.8 K/[facility] LAB HEMETOLOGY METHOD 04/12/2024 10:[address] [facility] LAB RBC 4.20(L) 4.50 - 5.50 M/mcL LAB HEMETOLOGY METHOD 04/12/2024 10:[address] [facility] LAB Hemoglobin 11.8(L) 13.5 - 17.5 g/dL LAB HEMETOLOGY METHOD 04/12/2024 10:[address] [facility] LAB Hematocrit 36.0(L) 42.0 - 54.0 % LAB HEMETOLOGY METHOD 04/12/2024 10:[address] [facility] LAB MCV 85.9 79.0 - 98.0 FL LAB HEMETOLOGY METHOD 04/12/2024 10:[address] [facility] LAB MCH 28.2 27.0 - 32.0 pcg LAB HEMETOLOGY METHOD 04/12/2024 10:[address] [facility] LAB MCHC 32.8 32.0 - 37.0 g/dL LAB HEMETOLOGY METHOD 04/12/2024 10:[address] [facility] LAB RDW 13.2 11.0 - 15.0 % LAB HEMETOLOGY METHOD 04/12/2024 10:[address] [facility] LAB Platelets 424(H) 130 - 400 K/mcL LAB HEMETOLOGY METHOD 04/12/2024 10:[address] [facility] LAB MPV 8.6 7.0 - 11.0 FL LAB HEMETOLOGY METHOD 04/12/2024 10:[address] [facility] LAB NRBC 0.0 <1.0 % LAB HEMETOLOGY METHOD 04/12/2024 10:[address] [facility] LAB NRBC Absolute 0.00 <0.10 K/mcL LAB HEMETOLOGY METHOD 04/12/2024 10:[address] [facility] LAB Neutrophils Relative 70.8 % LAB HEMETOLOGY METHOD 04/12/2024 10:[address] [facility] LAB Lymphocytes Relative 14.7 % LAB HEMETOLOGY METHOD 04/12/2024 10:[address] [facility] LAB Monocytes Relative 13.7 % LAB HEMETOLOGY METHOD 04/12/2024 10:[address] [facility] LAB Eosinophils Relative 0.0 % LAB HEMETOLOGY METHOD 04/12/2024 10:[address] [facility] LAB Basophils Relative 0.3 % LAB HEMETOLOGY METHOD 04/12/2024 10:[address] [facility] LAB Immature Granulocytes Relative 0.5 % LAB HEMETOLOGY METHOD 04/12/2024 10:[address] [facility] LAB Neutrophils Absolute 4.32 1.50 - 7.00 K/mcL LAB HEMETOLOGY METHOD 04/12/2024 10:[address] [facility] LAB Lymphocytes Absolute 0.90(L) 1.00 - 5.00 K/mcL LAB HEMETOLOGY METHOD 04/12/2024 10:[address] [facility] LAB Monocytes Absolute 0.84 0.20 - 1.00 K/mcL LAB HEMETOLOGY METHOD 04/12/2024 10:[address] [facility] LAB Eosinophils Absolute 0.00 0.00 - 0.50 K/mcL LAB HEMETOLOGY METHOD 04/12/2024 10:[address] [facility] LAB Basophils Absolute 0.02 0.00 - 0.20 K/mcL LAB HEMETOLOGY METHOD 04/12/2024 10:[address] [facility] LAB Immature Granulocytes Absolute 0.03 0.00 - 0.03 K/mcL LAB HEMETOLOGY METHOD 04/12/2024 10:[address] [facility] LAB Blood Venous blood specimen / Unknown Venipuncture / Unknown 04/12/2024 7:35 AM EST 04/12/2024 10:02 AM EST Ever Reyna MD LAB BLOOD ORDERABLES Final Res ult [facility] LAB [address] [place] [address], [place] [phone] * (ABNORMAL) Magnesium (04/12/2024 7:35 AM EST) Magnesium 1.7(L) 1.9 - 2.6 mg/dL LAB CHEMISTRY METHOD 04/12/2024 10:55 AM EST [facility] LAB Blood Venous blood specimen / Unknown Venipuncture / Unknown 04/12/2024 7:35 AM EST 04/12/2024 10:02 AM EST Ever Reyna MD LAB BLOOD ORDERABLES Final Res ult Performing Organization Address [facility]/ZIP Co de Phone Number [facility] LAB [address] [place] [address], [place] [phone] * (ABNORMAL) Comprehensive metabolic panel (04/12/2024 7:35 AM EST) Sodium 130(L) 133 - 145 mmol/L LAB CHEMISTRY METHOD 04/12/2024 10:[address] [facility] LAB Potassium 4.5 3.5 - 5.5 mmol/L LAB CHEMISTRY METHOD 04/12/2024 10:[address] [facility] LAB Chloride 97 96 - 110 mmol/L LAB CHEMISTRY METHOD 04/12/2024 10:[address] [facility] LAB CO2 25 21 - 32 mmol/L LAB CHEMISTRY METHOD 04/12/2024 10:[address] [facility] LAB Anion Gap 8 3 - 11 LAB CHEMISTRY METHOD 04/12/2024 10:[address] [facility] LAB Glucose 77 70 - 100 mg/dL LAB CHEMISTRY METHOD 04/12/2024 10:[address] [facility] LAB BUN 16 5 - 25 mg/dL LAB CHEMISTRY METHOD 04/12/2024 10:[address] [facility] LAB Creatinine 0.68(L) 0.70 - 1.30 mg/dL LAB CHEMISTRY METHOD 04/12/2024 10:[address] [facility] LAB eGFR 98 >=60 mL/min/1. 73m2 LAB CHEMISTRY METHOD 04/12/2024 10:[address] [facility] LAB Comment:Calculation based on the Chronic Kidney Disease Epidemiology Collaboration (CKD-EPI) equation refit without adjustment for race. BUN/Creatinine Ratio 23.5 LAB CHEMISTRY METHOD 04/12/2024 10:[address] [facility] LAB Calcium 9.9 8.5 - 10.5 mg/dL LAB CHEMISTRY METHOD 04/12/2024 10:[address] [facility] LAB AST (SGOT) 38 10 - 42 unit/L LAB CHEMISTRY METHOD 04/12/2024 10:[address] [facility] LAB ALT (SGPT) 24 10 - 60 unit/L LAB CHEMISTRY METHOD 04/12/2024 10:[address] [facility] LAB Alkaline Phosphatase 117 42 - 121 unit/L LAB CHEMISTRY METHOD 04/12/2024 10:[address] [facility] LAB Total Protein 6.7 6.0 - 8.0 g/dL LAB CHEMISTRY METHOD 04/12/2024 10:[address] [facility] LAB Albumin 3.2 3.2 - 5.0 g/dL LAB CHEMISTRY METHOD 04/12/2024 10:[address] [facility] LAB Total Bilirubin 0.3 0.0 - 1.4 mg/dL LAB CHEMISTRY METHOD 04/12/2024 10:[address] [facility] LAB Blood Venous blood specimen / Unknown Venipuncture / Unknown 04/12/2024 7:35 AM EST 04/12/2024 10:02 AM EST us Ever Reyna MD LAB BLOOD ORDERABLES Final Res ult [facility] [address] [place] [address], documented in this encounter Visit Diagnoses Diagnosis Encounter for other general examination documented in this encounter Care Teams Bulk Receiver Relationship Specialty Start Date End Date Alan Chanel MD [address] [place] [address] Dr [address] [place], [place] PCP - General Internal Medicine 03/12/24 documented as of this encounter
--- OUTSIDE RECORDS SUMMARY | 2025-01-06 17:39 | XMS_ITS | Encounter Summary ---
Author Organization [facility] Address [address] [place] [address] Care Team Providers Care Media Sales Representative Name Role Phone Alan Chanel MD Primary Care Provider [phone] Encounter Details Date Type Department Care Team (Late st Contact Info) Description 04/20/2024 Lab Requisition [facility] Lab [address] [place] [address] Ever Reyna MD [address] [place] [address] Encounter for other general examination Social History [...] AM EST) WBC 3.3(L) 4.8 - 10.8 K/[facility] LAB HEMETOLOGY METHOD 04/20/2024 9:17 AM EST [facility] LAB RBC 4.20(L) 4.50 - 5.50 M/[facility] LAB HEMETOLOGY METHOD 04/20/2024 9:17 AM EST [facility] LAB Hemoglobin 11.7(L) 13.5 - 17.5 g/dL LAB HEMETOLOGY METHOD 04/20/2024 9:17 AM [facility] LAB Hematocrit 35.0(L) 42.0 - 54.0 % LAB HEMETOLOGY METHOD 04/20/2024 9:17 AM [facility] LAB MCV 83.7 79.0 - 98.0 FL LAB HEMETOLOGY METHOD 04/20/2024 9:17 AM [facility] LAB MCH 28.0 27.0 - 32.0 pcg LAB HEMETOLOGY METHOD 04/20/2024 9:17 AM [facility] LAB MCHC 33.4 32.0 - 37.0 g/dL LAB HEMETOLOGY METHOD 04/20/2024 9:17 AM [facility] LAB RDW 13.3 11.0 - 15.0 % LAB HEMETOLOGY METHOD 04/20/2024 9:17 AM [facility] LAB Platelets 437(H) 130 - 400 K/mcL LAB HEMETOLOGY METHOD 04/20/2024 9:17 AM [facility] LAB MPV 8.3 7.0 - 11.0 FL LAB HEMETOLOGY METHOD 04/20/2024 9:17 AM [facility] LAB NRBC 0.0 <1.0 % LAB HEMETOLOGY METHOD 04/20/2024 9:17 AM [facility] LAB NRBC Absolute 0.00 <0.10 K/mcL LAB HEMETOLOGY METHOD 04/20/2024 9:17 AM [facility] LAB Blood Venous blood specimen / Unknown Venipuncture / Unknown 04/20/2024 5:20 AM EST 04/20/2024 8:31 AM EST us Ever Reyna MD LAB BLOOD ORDERABLES Final Res ult [facility] LAB [address] [place] [address], * (ABNORMAL) Comprehensive metabolic panel (04/20/2024 5:20 AM EST) Sodium 128(L) 133 - 145 mmol/L LAB CHEMISTRY METHOD 04/20/2024 10:20 AM EST [facility] LAB Potassium 4.0 3.5 - 5.5 mmol/L LAB CHEMISTRY METHOD 04/20/2024 10:20 AM [facility] LAB Chloride 90(L) 96 - 110 mmol/L LAB CHEMISTRY METHOD 04/20/2024 10:20 AM [facility] LAB CO2 25 21 - 32 mmol/L LAB CHEMISTRY METHOD 04/20/2024 10:20 AM [facility] LAB Anion Gap 13(H) 3 - 11 LAB CHEMISTRY METHOD 04/20/2024 10:20 AM [facility] LAB Glucose 79 70 - 100 mg/dL LAB CHEMISTRY METHOD 04/20/2024 10:20 AM [facility] LAB BUN 11 5 - 25 mg/dL LAB CHEMISTRY METHOD 04/20/2024 10:20 AM [facility] LAB Creatinine 0.65(L) 0.70 - 1.30 mg/dL LAB CHEMISTRY METHOD 04/20/2024 10:20 AM [facility] LAB eGFR 99 >=60 mL/min/1. 73m2 LAB CHEMISTRY METHOD 04/20/2024 10:20 AM [facility] LAB Comment:Calculation based on the Chronic Kidney Disease Epidemiology Collaboration (CKD-EPI) equation refit without adjustment for race. BUN/Creatinine Ratio 16.9 LAB CHEMISTRY METHOD 04/20/2024 10:20 AM [facility] LAB Calcium 9.1 8.5 - 10.5 mg/dL LAB CHEMISTRY METHOD 04/20/2024 10:20 AM [facility] LAB AST (SGOT) 309(H) 10 - 42 unit/L LAB CHEMISTRY METHOD 04/20/2024 10:20 AM [facility] LAB ALT (SGPT) 248(H) 10 - 60 unit/L LAB CHEMISTRY METHOD 04/20/2024 10:20 AM [facility] LAB Alkaline Phosphatase 209(H) 42 - 121 unit/L LAB CHEMISTRY METHOD 04/20/2024 10:20 AM [facility] LAB Total Protein 6.4 6.0 - 8.0 g/dL LAB CHEMISTRY METHOD 04/20/2024 10:20 AM [facility] LAB Albumin 3.1(L) 3.2 - 5.0 g/dL LAB CHEMISTRY METHOD 04/20/2024 10:20 AM [facility] LAB Total Bilirubin 0.3 0.0 - 1.4 mg/dL LAB CHEMISTRY METHOD 04/20/2024 10:20 AM [facility] LAB Blood Venous blood specimen / Unknown Venipuncture / Unknown 04/20/2024 5:20 AM EST 04/20/2024 8:31 AM EST us Ever Reyna MD LAB BLOOD ORDERABLES Final Res ult [facility] LAB [address] [place] [address], documented in this encounter Visit Diagnoses Diagnosis Encounter for other general examination documented in this encounter Care Teams Media Sales Representative Relationship Specialty Start Date End Date Alan Chanel MD [address] [place] [address] Dr [address] [place] PCP - General Internal Medicine 03/12/24 documented as of this encounter
--- OUTSIDE RECORDS SUMMARY | 2025-01-06 17:40 | XMS_ITS | Encounter Summary ---
Author Organization [facility] Address [address] [place] [address] Care Team Providers Care Spool Cleaner Name Role Phone Alan Chanel MD Primary Care Provider [phone] Encounter Details Date Type Department Care Team (Late st Contact Info) Description 04/22/2024 Lab Requisition [facility] - Main Lab [address] [facility] [place] [address] Ever Reyna MD [address] [place] [address] Encounter for other general examination Social History [...] LAB CHEMISTRY METHOD 04/22/2024 11:23 AM EST [facility] ([facility] LAB Urine Urine specimen obtained by clean catch procedure / Unknown 04/22/2024 4:20 AM EST 04/22/2024 9:49 AM EST us Ever Reyna MD LAB URINE ORDERABLES Final Res ult Performing Organization Address City/Va Hospital/ZIP Co de Phone Number [facility] LAB [address] [place] [address], [place] [phone] * Sodium, urine, random (04/22/2024 4:20 AM EST) Sodium, Ur 54 mmol/L LAB CHEMISTRY METHOD 04/22/2024 11:29 AM EST [facility] LAB Urine Urine specimen obtained by clean catch procedure / Unknown 04/22/2024 4:20 AM EST 04/22/2024 9:49 AM EST Ever Reyna MD LAB URINE ORDERABLES Final Res ult Performing Organization Address [facility] Hospital/ZIP Co de Phone Number [facility] LAB [address] [place] [address], [place] [phone] documented in this encounter Visit Diagnoses Diagnosis Encounter for other general examination documented in this encounter Care Teams Spool Cleaner Relationship Specialty Start Date End Date Alan Chanel MD [address] [place] [address] Dr Reyna Kruger [place] PCP - General Internal Medicine 03/12/24 documented as of this encounter
--- OUTSIDE RECORDS SUMMARY | 2025-01-06 17:40 | XMS_ITS | Encounter Summary ---
Author Organization [facility] Address [address] [place] [address] Care Team Providers Care Micropaleontologist Name Role Phone Alan Chanel MD Primary Care Provider Encounter Details Date Type Department Care Team (Late st Contact Info) Description 05/11/2024 Lab Requisition [facility] - Main Lab [address] [place] [address] Kenny Malave MD [address] [facility] [address] [place], [address] Essential (primary) hypertension Social History Tobacco [...] mmol/L LAB CHEMISTRY METHOD 05/12/2024 9:30 AM [facility] LAB CO2 26 21 - 32 mmol/L LAB CHEMISTRY METHOD 05/12/2024 9:30 AM [facility] LAB Anion Gap 8 3 - 11 LAB CHEMISTRY METHOD 05/12/2024 9:30 AM [facility] LAB Glucose 84 70 - 100 mg/dL LAB CHEMISTRY METHOD 05/12/2024 9:30 AM [facility] LAB BUN 14 5 - 25 mg/dL LAB CHEMISTRY METHOD 05/12/2024 9:30 AM [facility] LAB Creatinine 0.56 0.50 - 1.10 mg/dL LAB CHEMISTRY METHOD 05/12/2024 9:30 AM [facility] LAB eGFR 96 >=60 mL/min/1. 73m2 LAB CHEMISTRY METHOD 05/12/2024 9:30 AM [facility] LAB Comment:Calculation based on the Chronic Kidney Disease Epidemiology Collaboration (CKD-EPI) equation refit without adjustment for race. BUN/Creatinine Ratio 25.0 LAB CHEMISTRY METHOD 05/12/2024 9:30 AM [facility] LAB Calcium 8.5 8.5 - 10.5 mg/dL LAB CHEMISTRY METHOD 05/12/2024 9:30 AM [facility] LAB Blood Venous blood specimen / Unknown Venipuncture / Unknown 05/12/2024 5:47 AM EST 05/12/2024 8:50 AM EST us Kenny Malave MD LAB BLOOD ORDERABLES Final Resul t [facility] LAB [address] [place] [address], * (ABNORMAL) Complete blood count (05/12/2024 5:47 AM EST) WBC 3.6(L) 4.8 - 10.8 K/mcL LAB HEMETOLOGY METHOD 05/12/2024 9:09 AM [facility] LAB RBC 3.70(L) 3.80 - 4.80 M/mcL LAB HEMETOLOGY METHOD 05/12/2024 9:09 AM [facility] LAB Hemoglobin 10.4(L) 11.5 - 16.0 g/dL LAB HEMETOLOGY METHOD 05/12/2024 9:09 AM [facility] LAB Hematocrit 30.8(L) 35.0 - 47.0 % LAB HEMETOLOGY METHOD 05/12/2024 9:09 AM [facility] LAB MCV 84.2 79.0 - 98.0 FL LAB HEMETOLOGY METHOD 05/12/2024 9:09 AM [facility] LAB MCH 28.4 27.0 - 32.0 pcg LAB HEMETOLOGY METHOD 05/12/2024 9:09 AM [facility] LAB MCHC 33.8 32.0 - 37.0 g/dL LAB HEMETOLOGY METHOD 05/12/2024 9:09 AM [facility] LAB RDW 13.5 11.0 - 15.0 % LAB HEMETOLOGY METHOD 05/12/2024 9:09 AM [facility] LAB Platelets 543(H) 130 - 400 K/mcL LAB HEMETOLOGY METHOD 05/12/2024 9:09 AM [facility] LAB MPV 8.3 7.0 - 11.0 FL LAB HEMETOLOGY METHOD 05/12/2024 9:09 AM [facility] LAB NRBC 0.0 <1.0 % LAB HEMETOLOGY METHOD 05/12/2024 9:09 AM [facility] LAB NRBC Absolute 0.00 <0.10 K/mcL LAB HEMETOLOGY METHOD 05/12/2024 9:09 AM [facility] LAB Blood Venous blood specimen / Unknown Venipuncture / Unknown 05/12/2024 5:47 AM EST 05/12/2024 8:50 AM EST us Kenny Malave MD LAB BLOOD ORDERABLES Final Resul t [facility] [address] [place] [address], [place] [phone] documented in this encounter Visit Diagnoses Diagnosis Essential (primary) hypertension Unspecified essential hypertension documented in this encounter Care Teams Micropaleontologist Relationship Specialty Start Date End Date Alan Cahnel MD [address] [place] [address] Dr [address] [place], [place] PCP - General Internal Medicine 03/12/24 documented as of this encounter
--- OUTSIDE RECORDS SUMMARY | 2025-01-06 17:40 | XMS_ITS | Encounter Summary ---
Author Organization [facility] Address [address] [place] [address] Care Team Providers Care Curb Worker Name Role Phone Alan Chanel MD Primary Care Provider Encounter Details Date Type Department Care Team (Late st Contact Info) Description 08/15/2024 Lab Requisition [facility] Lab [address] [place] [address] Kenny Malave MD [address] [facility] [address] [place], [address] Essential (primary) hypertension Social History Tobacco [...] LAB CHEMISTRY METHOD 08/17/2024 12:06 PM EDT [facility] LAB Potassium 4.8 3.5 - 5.5 mmol/L LAB CHEMISTRY METHOD 08/17/2024 12:06 PM EDT [facility] LAB Chloride 95(L) 96 - [...] LAB CHEMISTRY METHOD 08/17/2024 12:06 PM EDT [facility] LAB Total Bilirubin 0.2 0.0 - 1.4 mg/dL LAB CHEMISTRY METHOD 08/17/2024 12:06 PM [facility] LAB Blood Venous blood specimen / Unknown Venipuncture / Unknown 08/17/2024 5:38 AM EDT 08/17/2024 10:35 AM EDT us Kenny Malave MD LAB BLOOD ORDERABLES Final Resul t [facility] LAB [address] [place] [address], [place] [phone] * (ABNORMAL) Complete blood count (08/17/2024 5:38 [...] LAB HEMETOLOGY METHOD 08/17/2024 11:44 AM EDT [facility] LAB RDW 14.2 11.0 - 15.0 % LAB HEMETOLOGY METHOD 08/17/2024 11:44 AM EDT [facility] LAB Platelets 402(H) 130 - 400 K/mcL LAB HEMETOLOGY METHOD 08/17/2024 11:44 AM EDT [facility] LAB MPV 8.5 7.0 - 11.0 FL LAB HEMETOLOGY METHOD 08/17/2024 11:44 AM EDT [facility] LAB NRBC 0.0 <1.0 % LAB HEMETOLOGY METHOD 08/17/2024 11:44 AM EDT [facility] LAB NRBC Absolute 0.00 <0.10 K/mcL LAB HEMETOLOGY METHOD 08/17/2024 11:44 AM EDT [facility] LAB Blood Venous blood specimen / Unknown Venipuncture / Unknown 08/17/2024 5:38 AM EDT 08/17/2024 10:35 AM EDT us Kenny Malave MD LAB BLOOD ORDERABLES Final Resul t [facility] LAB [address] [place] [address], documented in this encounter Visit Diagnoses Diagnosis Essential (primary) hypertension Unspecified essential hypertension documented in this encounter Care Teams Curb Worker Relationship Specialty Start Date End Date Alan Chanel MD [address] [facility] [address] Orellana [facility] MAG[facility] [place] PCP - General Internal Medicine 03/12/24 documented as of this encounter
--- OUTSIDE RECORDS SUMMARY | 2025-01-06 17:40 | XMS_ITS | Encounter Summary ---
Author Organization [facility] Address [address] [place] [address] Care Team Providers Care Smoke Inspector Name Role Phone Alan Chanel MD Primary Care Provider Encounter Details Date Type Department Care Team (Late st Contact Info) Description 07/20/2024 Lab Requisition [facility] Lab [address] [place] [address] Kenny Malave MD [address] [facility] [address] [place], [address] Essential (primary) hypertension Social History Tobacco [...] LAB CHEMISTRY METHOD 07/20/2024 11:53 AM EDT [facility] LAB Potassium 4.3 3.5 - 5.5 mmol/L LAB CHEMISTRY METHOD 07/20/2024 11:53 AM EDT [facility] LAB Chloride 95(L) 96 - 110 mmol/L LAB CHEMISTRY METHOD 07/20/2024 11:53 AM [facility] LAB CO2 25 21 - 32 mmol/L LAB CHEMISTRY METHOD 07/20/2024 11:53 AM [facility] LAB Anion Gap 9 3 - 11 LAB CHEMISTRY METHOD 07/20/2024 11:53 AM [facility] LAB Glucose 64(L) 70 - 100 mg/dL LAB CHEMISTRY METHOD 07/20/2024 11:53 AM [facility] LAB BUN 19 5 - 25 mg/dL LAB CHEMISTRY METHOD 07/20/2024 11:53 AM [facility] LAB Creatinine 0.61 0.50 - 1.10 mg/dL LAB CHEMISTRY METHOD 07/20/2024 11:53 AM [facility] LAB eGFR 94 >=60 mL/min/1. 73m2 LAB CHEMISTRY METHOD 07/20/2024 11:53 AM [facility] LAB Comment:Calculation based on the Chronic Kidney Disease Epidemiology Collaboration (CKD-EPI) equation refit without adjustment for race. BUN/Creatinine Ratio 31.1 LAB CHEMISTRY METHOD 07/20/2024 11:53 AM [facility] LAB Calcium 9.4 8.5 - 10.5 mg/dL LAB CHEMISTRY METHOD 07/20/2024 11:53 AM [facility] LAB AST (SGOT) 22 10 - 42 unit/L LAB CHEMISTRY METHOD 07/20/2024 11:53 AM [facility] LAB ALT (SGPT) 18 10 - 60 unit/L LAB CHEMISTRY METHOD 07/20/2024 11:53 AM [facility] LAB Alkaline Phosphatase 80 42 - 121 unit/L LAB CHEMISTRY METHOD 07/20/2024 11:53 AM [facility] LAB Total Protein 7.2 6.0 - 8.0 g/dL LAB CHEMISTRY METHOD 07/20/2024 11:53 AM [facility] LAB Albumin 3.7 3.2 - 5.0 g/dL LAB CHEMISTRY METHOD 07/20/2024 11:53 AM EDT [facility] LAB Total Bilirubin 0.3 0.0 - 1.4 mg/dL LAB CHEMISTRY METHOD 07/20/2024 11:53 AM EDT [facility] LAB Blood Venous blood specimen / Unknown Venipuncture / Unknown 07/20/2024 6:14 AM EDT 07/20/2024 10:31 AM EDT us Kenny Malave MD LAB BLOOD ORDERABLES Final Resul t [facility] [address] [place] [address], [place] [phone] * (ABNORMAL) Complete blood count (07/20/2024 6:14 AM EDT) WBC 5.3 4.8 - 10.8 K/mcL LAB HEMETOLOGY METHOD 07/20/2024 11:31 AM EDT [facility] LAB RBC 3.70(L) 3.80 - 4.80 M/mcL LAB HEMETOLOGY METHOD 07/20/2024 11:31 AM T [facility] LAB Hemoglobin 10.7(L) 11.5 - 16.0 g/dL LAB HEMETOLOGY METHOD 07/20/2024 11:31 AM EDT [facility] LAB Hematocrit 32.1(L) 35.0 - 47.0 % LAB HEMETOLOGY METHOD 07/20/2024 11:31 AM EDT [facility] LAB MCV 85.8 79.0 - 98.0 FL LAB HEMETOLOGY METHOD [facility]24 [facility] MCH 28.6 27.0 - 32.0 pcg LAB HEMETOLOGY METHOD 07/20/2024 11:31 AM EDT [facility] LAB MCHC 33.3 32.0 - 37.0 g/dL LAB HEMETOLOGY METHOD 07/20/2024 11:31 AM EDT [facility] LAB RDW 17.0(H) 11.0 - 15.0 % LAB HEMETOLOGY METHOD 07/20/2024 11:31 AM EDT [facility] LAB Platelets 479(H) 130 - 400 K/mcL LAB HEMETOLOGY METHOD 07/20/2024 11:31 AM EDT [facility] LAB MPV 8.2 7.0 - 11.0 FL LAB HEMETOLOGY METHOD 07/20/2024 11:31 AM EDT [facility] LAB NRBC 0.0 <1.0 % LAB HEMETOLOGY METHOD 07/20/2024 11:31 AM EDT [facility] LAB NRBC Absolute 0.00 <0.10 K/mcL LAB HEMETOLOGY METHOD 07/20/2024 11:31 AM EDT [facility] Blood Venous blood specimen / Unknown Venipuncture / Unknown 07/20/2024 6:14 AM EDT 07/20/2024 10:31 AM EDT us Kenny Malave MD LAB BLOOD ORDERABLES Final Resul t [facility] [address] [place] [address], documented in this encounter Visit Diagnoses Diagnosis Essential (primary) hypertension Unspecified essential hypertension documented in this encounter Care Teams Smoke Inspector Relationship Specialty Start Date End Date Alan Chanel MD [address] [place] [address] Dr Reyna Kruger MA PCP - General Internal Medicine 03/12/24 documented as of this encounter
--- OUTSIDE RECORDS SUMMARY | 2025-01-06 17:40 | XMS_ITS | Encounter Summary ---
Author Organization [facility] Address [address] [place] [address] Care Team Providers Care Planning Intern Name Role Phone Alan Chanel MD Primary Care Provider [phone] Encounter Details Date Type Department Care Team (Late st Contact Info) Description 05/04/[address] [facility] Lab [address] [place] [address] Kenny Malave MD 38 [facility] [address] [place], [address] Essential (primary) hypertension Social History Tobacco [...] LAB CHEMISTRY METHOD 05/05/2024 10:55 AM EST [facility] LAB Potassium 3.8 3.5 - 5.5 mmol/L LAB CHEMISTRY METHOD 05/05/2024 10:55 AM EST [facility] LAB Chloride 95(L) 96 - 110 mmol/L LAB CHEMISTRY METHOD 05/05/2024 10:55 AM [facility] LAB CO2 29 21 - 32 mmol/L LAB CHEMISTRY METHOD 05/05/2024 10:55 AM [facility] LAB Anion Gap 7 3 - 11 LAB CHEMISTRY METHOD 05/05/2024 10:55 AM [facility] LAB Glucose 89 70 - 100 mg/dL LAB CHEMISTRY METHOD 05/05/2024 10:55 AM [facility] LAB BUN 16 5 - 25 mg/dL LAB CHEMISTRY METHOD 05/05/2024 10:55 AM [facility] LAB Creatinine 0.61 0.50 - 1.10 mg/dL LAB CHEMISTRY METHOD 05/05/2024 10:55 AM [facility] LAB eGFR 94 >=60 mL/min/1. 73m2 LAB CHEMISTRY METHOD 05/05/2024 10:55 AM [facility] LAB Comment:Calculation based on the Chronic Kidney Disease Epidemiology Collaboration (CKD-EPI) equation refit without adjustment for race. BUN/Creatinine Ratio 26.2 LAB CHEMISTRY METHOD 05/05/2024 10:55 AM [facility] LAB Calcium 8.9 8.5 - 10.5 mg/dL LAB CHEMISTRY METHOD 05/05/2024 10:55 AM [facility] LAB Blood Venous blood specimen / Unknown Venipuncture / Unknown 05/05/2024 6:32 AM EST 05/05/2024 10:13 AM EST us Kenny Malave MD LAB BLOOD ORDERABLES Final Resul t [facility] LAB [address] [place] [address], * (ABNORMAL) Complete blood count (05/05/2024 6:32 AM EST) WBC 6.4 4.8 - 10.8 K/mcL LAB HEMETOLOGY METHOD 05/05/2024 10:59 AM [facility] LAB RBC 3.90 3.80 - 4.80 M/mcL LAB HEMETOLOGY METHOD 05/05/2024 10:59 AM [facility] LAB Hemoglobin 10.7(L) 11.5 - 16.0 g/dL LAB HEMETOLOGY METHOD 05/05/2024 10:59 AM [facility] LAB Hematocrit 32.7(L) 35.0 - 47.0 % LAB HEMETOLOGY METHOD 05/05/2024 10:59 AM [facility] LAB MCV 84.3 79.0 - 98.0 FL LAB HEMETOLOGY METHOD 05/05/2024 10:59 AM [facility] LAB MCH 27.6 27.0 - 32.0 pcg LAB HEMETOLOGY METHOD 05/05/2024 10:59 AM [facility] LAB MCHC 32.7 32.0 - 37.0 g/dL LAB HEMETOLOGY METHOD 05/05/2024 10:59 AM [facility] LAB RDW 13.2 11.0 - 15.0 % LAB HEMETOLOGY METHOD 05/05/2024 10:59 AM [facility] LAB Platelets 551(H) 130 - 400 K/mcL LAB HEMETOLOGY METHOD 05/05/2024 10:59 AM [facility] LAB MPV 8.5 7.0 - 11.0 FL LAB HEMETOLOGY METHOD 05/05/2024 10:59 AM [facility] LAB NRBC 0.0 <1.0 % LAB HEMETOLOGY METHOD 05/05/2024 10:59 AM [facility] LAB NRBC Absolute 0.00 <0.10 K/mcL LAB HEMETOLOGY METHOD 05/05/2024 10:59 AM [facility] LAB Blood Venous blood specimen / Unknown Venipuncture / Unknown 05/05/2024 6:32 AM EST 05/05/2024 10:14 AM EST us Kenny Malave MD LAB BLOOD ORDERABLES Final Resul t [facility] ([facility]) [facility] [address] [place] [address], documented in this encounter Visit Diagnoses Diagnosis Essential (primary) hypertension Unspecified essential hypertension documented in this encounter Care Teams Planning Intern Relationship Specialty Start Date End Date Alan Chanel MD [address] [place] [address] Dr [address] [place], [place] PCP - General Internal Medicine 03/12/24 documented as of this encounter
--- OUTSIDE RECORDS SUMMARY | 2025-01-06 17:40 | XMS_ITS | Encounter Summary ---
Author Organization [facility] Address [address] [place] [address] Care Team Providers Care Pizzamaker Name Role Phone Alan Chanel MD Primary Care Provider Encounter Details Date Type Department Care Team (Late st Contact Info) Description 07/25/2024 Lab Requisition [facility] Lab [address] [place] [address] Kenny Malave MD 38 [facility] [address] [place], [address] Essential (primary) hypertension Social History Tobacco [...] mmol/L LAB CHEMISTRY METHOD 07/27/2024 12:18 PM [facility] CO2 26 21 - 32 mmol/L LAB CHEMISTRY METHOD 07/27/2024 12:18 PM [facility] LAB Anion Gap 7 3 - 11 LAB CHEMISTRY METHOD 07/27/2024 12:18 PM [facility] LAB Glucose 81 70 - 100 mg/dL LAB CHEMISTRY METHOD 07/27/2024 12:18 PM [facility] BUN 20 5 - 25 mg/dL LAB CHEMISTRY METHOD 07/27/2024 12:18 PM [facility] Creatinine 0.66 0.50 - 1.10 mg/dL LAB CHEMISTRY METHOD 07/27/2024 12:18 PM [facility] LAB eGFR 92 >=60 mL/min/1. 73m2 LAB CHEMISTRY METHOD 07/27/2024 12:18 PM [facility] LAB Comment:Calculation based on the Chronic Kidney Disease Epidemiology Collaboration (CKD-EPI) equation refit without adjustment for race. BUN/Creatinine Ratio 30.3 LAB CHEMISTRY METHOD 07/27/2024 12:18 PM [facility] Calcium 9.6 8.5 - 10.5 mg/dL LAB CHEMISTRY METHOD 07/27/2024 12:18 PM [facility] LAB AST (SGOT) 23 10 - 42 unit/L LAB CHEMISTRY METHOD 07/27/2024 12:18 PM [facility] ALT (SGPT) 19 10 - 60 unit/L LAB CHEMISTRY METHOD 07/27/2024 12:18 PM [facility] LAB Alkaline Phosphatase 85 42 - 121 unit/L LAB CHEMISTRY METHOD 07/27/2024 12:18 PM [facility] Total Protein 7.2 6.0 - 8.0 g/dL LAB CHEMISTRY METHOD 07/27/2024 12:18 PM [facility] Albumin 3.6 3.2 - 5.0 [...] Resul t [facility] LAB [address] [place] [address], * (ABNORMAL) Complete blood count (07/27/2024 6:21 AM EDT) WBC 3.9(L) 4.8 - 10.8 K/mcL LAB HEMETOLOGY METHOD 07/27/2024 11:56 AM [facility] RBC 3.80 3.80 - 4.80 M/mcL LAB HEMETOLOGY METHOD 07/27/2024 11:56 AM [facility] Hemoglobin 10.9(L) 11.5 - 16.0 g/dL LAB HEMETOLOGY METHOD 07/27/2024 11:56 AM [facility] LAB Hematocrit 32.0(L) 35.0 - 47.0 % LAB HEMETOLOGY METHOD 07/27/2024 11:56 AM [facility] LAB MCV 84.7 79.0 - 98.0 FL LAB HEMETOLOGY METHOD 07/27/2024 11:56 AM [facility] MCH 28.8 27.0 - 32.0 pcg LAB HEMETOLOGY METHOD 07/27/2024 11:56 AM [facility] LAB MCHC 34.1 32.0 [...] t [facility] LAB [address] [place] [address], documented in this encounter Visit Diagnoses Diagnosis Essential (primary) hypertension Unspecified essential hypertension documented in this encounter Care Teams Pizzamaker Relationship Specialty Start Date End Date Alan Chanel MD [address] [facility] [address] Reyna Kruger [place] PCP - General Internal Medicine 03/12/24 documented as of this encounter
--- OUTSIDE RECORDS SUMMARY | 2025-01-06 17:40 | XMS_ITS | Encounter Summary ---
Author Organization [facility] Address [address] [place] [address] Care Team Providers Care Bisque Tile Burner Name Role Phone Alan Chanel MD Primary Care Provider Encounter Details Date Type Department Care Team (Late st Contact Info) Description 04/21/2024 Lab Requisition [facility] Lab [address] [place] [address] Ever Reyna MD [address] [place] [address] Encounter for other general examination Social History [...] LAB CHEMISTRY METHOD 04/21/2024 10:03 AM EST [facility] ([facility]) [facility] Blood Venous blood specimen / Unknown Venipuncture / Unknown 04/21/2024 6:13 AM EST 04/21/2024 8:46 AM EST us Ever Reyna MD LAB BLOOD ORDERABLES Final Res ult Performing Organization Address [facility]/ZIP Co de Phone Number [facility] LAB [address] [place] [address], [place] [phone] * Amylase (04/21/2024 6:13 AM EST) [facility] Amylase 51 25 - 115 unit/L LAB CHEMISTRY METHOD 04/21/2024 10:03 AM [facility] LAB Blood Venous blood specimen / Unknown Venipuncture / Unknown 04/21/2024 6:13 AM EST 04/21/2024 8:46 AM EST us Ever Reyna MD LAB BLOOD ORDERABLES Final Res ult Performing Organization Address [facility] Co de Phone Number [facility] [address] [place] [address], [place] [phone] * (ABNORMAL) Comprehensive metabolic panel (04/21/2024 6:13 AM EST) [facility] Sodium 126(L) 133 - 145 mmol/L LAB CHEMISTRY METHOD 04/21/2024 10:06 AM [facility] LAB Potassium 3.7 3.5 - 5.5 mmol/L LAB CHEMISTRY METHOD 04/21/2024 10:06 AM [facility] LAB Chloride 91(L) 96 - 110 mmol/L LAB CHEMISTRY METHOD 04/21/2024 10:06 AM [facility] CO2 26 21 - 32 mmol/L LAB CHEMISTRY METHOD 04/21/2024 10:06 AM [facility] LAB Anion Gap 9 3 - 11 LAB CHEMISTRY METHOD 04/21/2024 10:06 AM [facility] LAB Glucose 82 70 - 100 mg/dL LAB CHEMISTRY METHOD 04/21/2024 10:06 AM [facility] BUN 10 5 - 25 mg/dL LAB CHEMISTRY METHOD 04/21/2024 10:06 AM [facility] LAB Creatinine 0.67(L) 0.70 - 1.30 mg/dL LAB CHEMISTRY METHOD 04/21/2024 10:06 AM [facility] LAB eGFR 98 >=60 mL/min/1. 73m2 LAB CHEMISTRY METHOD 04/21/2024 10:06 AM [facility] LAB Comment:Calculation based on the Chronic Kidney Disease Epidemiology Collaboration (CKD-EPI) equation refit without adjustment for race. BUN/Creatinine Ratio 14.9 LAB CHEMISTRY METHOD 04/21/2024 10:06 AM [facility] LAB Calcium 8.8 8.5 - 10.5 mg/dL LAB CHEMISTRY METHOD 04/21/2024 10:06 AM [facility] LAB AST (SGOT) 208(H) 10 - 42 unit/L LAB CHEMISTRY METHOD 04/21/2024 10:06 AM [facility] LAB ALT (SGPT) 210(H) 10 - 60 unit/L LAB CHEMISTRY METHOD 04/21/2024 10:06 AM [facility] LAB Alkaline Phosphatase 210(H) 42 - 121 unit/L LAB CHEMISTRY METHOD 04/21/2024 10:06 AM [facility] LAB Total Protein 6.5 6.0 - 8.0 g/dL LAB CHEMISTRY METHOD 04/21/2024 10:06 AM [facility] Albumin 3.2 3.2 - 5.0 g/dL LAB CHEMISTRY METHOD 04/21/2024 10:06 AM [facility] LAB Total Bilirubin 0.3 0.0 - 1.4 mg/dL LAB CHEMISTRY METHOD 04/21/2024 10:06 AM [facility] LAB Blood Venous blood specimen / Unknown Venipuncture / Unknown 04/21/2024 6:13 AM EST 04/21/2024 8:46 AM EST us Ever Reyna MD LAB BLOOD ORDERABLES Final Res ult [facility] ([facility] [address] [place] [address], documented in this encounter Visit Diagnoses Diagnosis Encounter for other general examination documented in this encounter Care Teams Bisque Tile Burner Relationship Specialty Start Date End Date Alan Chanel MD [address] [place] [address] Dr [address] [place] PCP - General Internal Medicine 03/12/24 documented as of this encounter
--- OUTSIDE RECORDS SUMMARY | 2025-01-06 17:40 | XMS_ITS | Encounter Summary ---
Author Organization [facility] Address [address] [place] [address] Care Team Providers Care Vp Of Technology Name Role Phone Alan Chanel MD Primary Care Provider Encounter Details Date Type Department Care Team (Late st Contact Info) Description 08/28/2024 Lab Requisition [facility] Lab [address] [place] [address] Kenny Malave MD 38 [facility] [address] [place], [address] Essential (primary) hypertension Social History Tobacco [...] LAB CHEMISTRY METHOD 08/31/2024 12:48 PM EDT [facility] LAB Potassium 4.0 3.5 - 5.5 mmol/L LAB CHEMISTRY METHOD 08/31/2024 12:48 PM EDT [facility] LAB Chloride 94(L) 96 - 110 mmol/L LAB CHEMISTRY METHOD 08/31/2024 12:48 PM [facility] LAB CO2 25 21 - 32 mmol/L LAB CHEMISTRY METHOD 08/31/2024 12:48 PM [facility] LAB Anion Gap 9 3 - 11 LAB CHEMISTRY METHOD 08/31/2024 12:48 PM [facility] LAB Glucose 75 70 - 100 mg/dL LAB CHEMISTRY METHOD 08/31/2024 12:48 PM [facility] BUN 21 5 - 25 mg/dL LAB CHEMISTRY METHOD 08/31/2024 12:48 PM [facility] Creatinine 0.57 0.50 - 1.10 mg/dL LAB CHEMISTRY METHOD 08/31/2024 12:48 PM [facility] LAB eGFR 95 >=60 mL/min/1. 73m2 LAB CHEMISTRY METHOD 08/31/2024 12:48 PM [facility] LAB Comment:Calculation based on the Chronic Kidney Disease Epidemiology Collaboration (CKD-EPI) equation refit without adjustment for race. BUN/Creatinine Ratio 36.8 LAB CHEMISTRY METHOD 08/31/2024 12:48 PM [facility] Calcium 9.8 8.5 - 10.5 mg/dL LAB CHEMISTRY METHOD 08/31/2024 12:48 PM [facility] LAB AST (SGOT) 26 10 - 42 unit/L LAB CHEMISTRY METHOD 08/31/2024 12:48 PM [facility] ALT (SGPT) 22 10 - 60 unit/L LAB CHEMISTRY METHOD 08/31/2024 12:48 PM [facility] LAB Alkaline Phosphatase 98 42 - 121 unit/L LAB CHEMISTRY METHOD 08/31/2024 12:48 PM [facility] Total Protein 7.1 6.0 - 8.0 g/dL LAB CHEMISTRY METHOD 08/31/2024 12:48 PM [facility] Albumin 3.4 3.2 - 5.0 g/dL LAB CHEMISTRY METHOD 08/31/2024 12:48 PM EDT [facility] LAB Total Bilirubin 0.2 0.0 - 1.4 mg/dL LAB CHEMISTRY METHOD 08/31/2024 12:48 PM EDT [facility] LAB Blood Venous blood specimen / Unknown Venipuncture / Unknown 08/31/2024 7:26 AM EDT 08/31/2024 10:06 AM EDT us Kenny Malave MD LAB BLOOD ORDERABLES Final Resul t [facility] LAB [address] [place] [address], [place] [phone] * (ABNORMAL) Complete blood count (08/31/2024 7:26 AM EDT) WBC 4.1(L) 4.8 - 10.8 K/mcL LAB HEMETOLOGY METHOD 08/31/2024 11:39 AM [facility] RBC 3.70(L) 3.80 - 4.80 M/mcL LAB HEMETOLOGY METHOD 08/31/2024 11:39 AM [facility] Hemoglobin 10.2(L) 11.5 - 16.0 g/dL LAB HEMETOLOGY METHOD 08/31/2024 11:39 AM [facility] LAB Hematocrit 31.2(L) 35.0 - 47.0 % LAB HEMETOLOGY METHOD 08/31/2024 11:39 AM [facility] LAB MCV 84.6 79.0 - 98.0 FL LAB HEMETOLOGY METHOD 08/31/2024 11:39 AM [facility] MCH 27.6 27.0 - 32.0 pcg LAB HEMETOLOGY METHOD 08/31/2024 11:39 AM [facility] MCHC 32.7 32.0 - 37.0 g/dL LAB HEMETOLOGY METHOD 08/31/2024 11:39 AM EDT [facility] RDW 13.4 11.0 - 15.0 % LAB HEMETOLOGY METHOD 08/31/2024 11:39 AM EDT [facility] LAB Platelets 449(H) 130 - 400 K/mcL LAB HEMETOLOGY METHOD 08/31/2024 11:39 AM EDT [facility] LAB MPV 8.2 7.0 - 11.0 FL LAB HEMETOLOGY METHOD 08/31/2024 11:39 AM EDT [facility] NRBC 0.0 <1.0 % LAB HEMETOLOGY METHOD 08/31/2024 11:39 AM EDT [facility] LAB NRBC Absolute 0.00 <0.10 K/mcL LAB HEMETOLOGY METHOD 08/31/2024 11:39 AM EDT [facility] LAB Blood Venous blood specimen / Unknown Venipuncture / Unknown 08/31/2024 7:26 AM EDT 08/31/2024 10:06 AM EDT us Kenny Malave MD LAB BLOOD ORDERABLES Final Resul t [facility] [address] [place] [address], documented in this encounter Visit Diagnoses Diagnosis Essential (primary) hypertension Unspecified essential hypertension documented in this encounter Care Teams Vp Of Technology Relationship Specialty Start Date End Date Alan Chanel MD [address] [place] [address] Dr Orellana [facility] MAGEN Kruger PCP - General Internal Medicine 03/12/24 documented as of this encounter
--- OUTSIDE RECORDS SUMMARY | 2025-01-06 17:40 | XMS_ITS | Encounter Summary ---
Author Organization [facility] Address [address] [place] [address] Care Team Providers Care Quality Process Engineer Name Role Phone Alan Chanel MD Primary Care Provider Encounter Details Date Type Department Care Team (Late st Contact Info) Description 04/14/2024 Lab Requisition [facility] - Main Lab [address] [place] [address] Ever Reyna MD [address] [place] [address] Encounter for other general examination Social History [...] CHEMISTRY METHOD 04/14/2024 11:19 AM EST [facility] Blood Venous blood specimen / Unknown Venipuncture / Unknown 04/14/2024 4:35 AM EST 04/14/2024 9:55 AM EST us Ever Reyna MD LAB BLOOD ORDERABLES Final Res ult [facility] [address] [place] [address], [place] [phone] * (ABNORMAL) Basic metabolic panel (04/14/2024 4:35 AM EST) Sodium 128(L) 133 - 145 mmol/L LAB CHEMISTRY METHOD 04/14/2024 10:39 AM [facility] Potassium 4.3 3.5 - 5.5 mmol/L LAB CHEMISTRY METHOD 04/14/2024 10:39 AM [facility] Chloride 91(L) 96 - 110 mmol/L LAB CHEMISTRY METHOD 04/14/2024 10:39 AM [facility] CO2 26 21 - 32 mmol/L LAB CHEMISTRY METHOD 04/14/2024 10:39 AM [facility] Anion Gap 11 3 - 11 LAB CHEMISTRY METHOD 04/14/2024 10:39 AM [facility] Glucose 71 70 - 100 mg/dL LAB CHEMISTRY METHOD 04/14/2024 10:39 AM [facility] BUN 14 5 - 25 mg/dL LAB CHEMISTRY METHOD 04/14/2024 10:39 AM [facility] Creatinine 0.60(L) 0.70 - 1.30 mg/dL LAB CHEMISTRY METHOD 04/14/2024 10:39 AM [facility] LAB eGFR 101 >=60 mL/min/1. 73m2 LAB CHEMISTRY METHOD 04/14/2024 10:39 AM [facility] LAB Comment:Calculation based on the Chronic Kidney Disease Epidemiology Collaboration (CKD-EPI) equation refit without adjustment for race. BUN/Creatinine Ratio 23.3 LAB CHEMISTRY METHOD 04/14/2024 10:39 AM [facility] Calcium 9.4 8.5 - 10.5 mg/dL LAB CHEMISTRY METHOD 04/14/2024 10:39 AM EST [facility] Blood Venous blood specimen / Unknown Venipuncture / Unknown 04/14/2024 4:35 AM EST 04/14/2024 9:55 AM EST us Ever Reyna MD LAB BLOOD ORDERABLES Final Res ult [facility] [address] [place] [address], documented in this encounter Visit Diagnoses Diagnosis Encounter for other general examination documented in this encounter Care Teams Quality Process Engineer Relationship Specialty Start Date End Date Alan Chanel MD [address] [place] [address] Dr Reyna [address] [place], [place] PCP - General Internal Medicine 03/12/24 documented as of this encounter
--- OUTSIDE RECORDS SUMMARY | 2025-01-06 17:40 | XMS_ITS | Encounter Summary ---
Author Organization [facility] Address [address] [place] [address] Care Team Providers Care Passenger Service Representative Name Role Phone Alan Chanel MD Primary Care Provider Encounter Details Date Type Department Care Team (Late st Contact Info) Description 04/14/[address] [facility] - Main Lab [address] [facility] [place] [address] Ever Reyna MD [address] [place] [address] Encounter for other general examination Social History [...] CHEMISTRY METHOD 04/14/2024 10:46 AM EST [facility] Urine Urine specimen obtained by clean catch procedure / Unknown Non-blood Collection / Unknown 04/14/2024 3:12 AM EST 04/14/2024 9:00 AM EST us Ever Reyna MD LAB URINE ORDERABLES Final Res ult Performing Organization Address City/[facility]/ZIP Co de Phone Number [facility] [address] [place] [address], [place] [phone] * (ABNORMAL) Osmolality, urine (04/14/2024 3:12 AM EST) Osmolality, Urine 258(L) 300 - 1,300 mOsm/kg LAB CHEMISTRY METHOD 04/14/2024 11:28 AM EST [facility] Urine Urine specimen obtained by clean catch procedure / Unknown Non-blood Collection / Unknown 04/14/2024 3:12 AM EST 04/14/2024 9:00 AM EST us Ever Reyna MD LAB URINE ORDERABLES Final Res ult Performing Organization Address [facility] Co de Phone Number [facility] [address] [place] [address], [place] [phone] documented in this encounter Visit Diagnoses Diagnosis Encounter for other general examination documented in this encounter Care Teams Passenger Service Representative Relationship Specialty Start Date End Date Alan Chanel MD [address] [place] [address] Dr Orell[address] PCP - General Internal Medicine 03/12/24 documented as of this encounter
--- OUTSIDE RECORDS SUMMARY | 2025-01-06 17:40 | XMS_ITS | Encounter Summary ---
Author Organization [facility] Address [address] [place] [address] Care Team Providers Care Butcher Apprentice Name Role Phone Alan Chanel MD Primary Care Provider Encounter Details Date Type Department Care Team (Late st Contact Info) Description 08/01/2024 Lab Requisition [facility] Lab [address] [place] [address] Kenny Malave MD 38 [facility] [address] [place], [address] Essential (primary) hypertension Social History Tobacco [...] LAB CHEMISTRY METHOD 08/03/2024 12:13 PM EDT [facility] Potassium 4.5 3.5 - 5.5 mmol/L LAB CHEMISTRY METHOD 08/03/2024 12:13 PM EDT [facility] Chloride 96 96 - 110 mmol/L LAB CHEMISTRY METHOD 08/03/2024 12:13 PM [facility] LAB CO2 26 21 - 32 mmol/L LAB CHEMISTRY METHOD 08/03/2024 12:13 PM [facility] LAB Anion Gap 9 3 - 11 LAB CHEMISTRY METHOD 08/03/2024 12:13 PM [facility] LAB Glucose 70 70 - 100 mg/dL LAB CHEMISTRY METHOD 08/03/2024 12:13 PM [facility] LAB BUN 20 5 - 25 mg/dL LAB CHEMISTRY METHOD 08/03/2024 12:13 PM [facility] LAB Creatinine 0.55 0.50 - 1.10 mg/dL LAB CHEMISTRY METHOD 08/03/2024 12:13 PM [facility] LAB eGFR 96 >=60 mL/min/1. 73m2 LAB CHEMISTRY METHOD 08/03/2024 12:13 PM [facility] LAB Comment:Calculation based on the Chronic Kidney Disease Epidemiology Collaboration (CKD-EPI) equation refit without adjustment for race. BUN/Creatinine Ratio 36.4 LAB CHEMISTRY METHOD 08/03/2024 12:13 PM [facility] Calcium 9.7 8.5 - 10.5 mg/dL LAB CHEMISTRY METHOD 08/03/2024 12:13 PM [facility] LAB AST (SGOT) 26 10 - 42 unit/L LAB CHEMISTRY METHOD 08/03/2024 12:13 PM [facility] ALT (SGPT) 21 10 - 60 unit/L LAB CHEMISTRY METHOD 08/03/2024 12:13 PM [facility] LAB Alkaline Phosphatase 84 42 - 121 unit/L LAB CHEMISTRY METHOD 08/03/2024 12:13 PM [facility] Total Protein 7.0 6.0 - 8.0 g/dL LAB CHEMISTRY METHOD 08/03/2024 12:13 PM [facility] LAB Albumin 3.4 3.2 - 5.0 g/dL LAB CHEMISTRY METHOD 08/03/2024 12:13 PM EDT [facility] Total Bilirubin 0.3 0.0 - 1.4 mg/dL LAB CHEMISTRY METHOD 08/03/2024 12:13 PM T [facility] Blood Venous blood specimen / Unknown Venipuncture / Unknown 08/03/2024 5:38 AM EDT 08/03/2024 10:24 AM EDT us Kenny Malave MD LAB BLOOD ORDERABLES Final Resul t [facility] [address] [place] [address], * (ABNORMAL) Complete blood count (08/03/2024 5:38 AM EDT) WBC 4.2(L) 4.8 - 10.8 K/mcL LAB HEMETOLOGY METHOD 08/03/2024 11:18 AM [facility] RBC 3.70(L) 3.80 - 4.80 M/mcL LAB HEMETOLOGY METHOD 08/03/2024 11:18 AM [facility] Hemoglobin 10.5(L) 11.5 - 16.0 g/dL LAB HEMETOLOGY METHOD 08/03/2024 11:18 AM [facility] Hematocrit 31.9(L) 35.0 - 47.0 % LAB HEMETOLOGY METHOD 08/03/2024 11:18 AM [facility] LAB MCV 86.4 79.0 - 98.0 FL LAB HEMETOLOGY METHOD 08/03/2024 11:18 AM [facility] LAB MCH 28.5 27.0 - 32.0 pcg LAB HEMETOLOGY METHOD 08/03/2024 11:18 AM [facility] LAB MCHC 32.9 32.0 - 37.0 g/dL LAB HEMETOLOGY METHOD 08/03/2024 11:18 AM EDT [facility] RDW 15.3(H) 11.0 - 15.0 % LAB HEMETOLOGY METHOD 08/03/2024 11:18 AM EDT [facility] Platelets 409(H) 130 - 400 K/mcL LAB HEMETOLOGY METHOD 08/03/2024 11:18 AM EDT [facility] MPV 8.3 7.0 - 11.0 FL LAB HEMETOLOGY METHOD 08/03/2024 11:18 AM EDT [facility] NRBC 0.0 <1.0 % LAB HEMETOLOGY METHOD 08/03/2024 11:18 AM EDT [facility] NRBC Absolute 0.00 <0.10 K/mcL LAB HEMETOLOGY METHOD 08/03/2024 11:18 AM EDT [facility] Blood Venous blood specimen / Unknown Venipuncture / Unknown 08/03/2024 5:38 AM EDT 08/03/2024 10:24 AM EDT us Kenny Malave MD LAB BLOOD ORDERABLES Final Resul t [facility] [address] [place] [address], documented in this encounter Visit Diagnoses Diagnosis Essential (primary) hypertension Unspecified essential hypertension documented in this encounter Care Teams Butcher Apprentice Relationship Specialty Start Date End Date Alan Chanel MD [address] [place] [address] Dr Orellana [facility] MAGEN Kruger PCP - General Internal Medicine 03/12/24 documented as of this encounter
--- OUTSIDE RECORDS SUMMARY | 2025-01-06 17:40 | XMS_ITS | Encounter Summary ---
Author Organization [facility] Address [address] [place] [address] Care Team Providers Care Mash Preparatory Operator Name Role Phone Alan Chanel MD Primary Care Provider Encounter Details Date Type Department Care Team (Late st Contact Info) Description 09/04/2024 Lab Requisition [facility] Lab [address] [place] [address] Kenny Malave MD 38 [facility] [address] [place], [address] Essential (primary) hypertension Social History Tobacco [...] LAB CHEMISTRY METHOD 09/07/2024 11:[address] [facility] Potassium 4.2 3.5 - 5.5 mmol/L LAB CHEMISTRY METHOD 09/07/2024 11:[address] [facility] Chloride 93(L) 96 - 110 mmol/L LAB CHEMISTRY METHOD 09/07/2024 11:49 AM [facility] LAB CO2 25 21 - 32 mmol/L LAB CHEMISTRY METHOD 09/07/2024 11:49 AM [facility] LAB Anion Gap 10 3 - 11 LAB CHEMISTRY METHOD 09/07/2024 11:49 AM [facility] LAB Glucose 87 70 - 100 mg/dL LAB CHEMISTRY METHOD 09/07/2024 11:49 AM [facility] LAB BUN 20 5 - 25 mg/dL LAB CHEMISTRY METHOD 09/07/2024 11:49 AM [facility] LAB Creatinine 0.66 0.50 - 1.10 mg/dL LAB CHEMISTRY METHOD 09/07/2024 11:49 AM [facility] LAB eGFR 92 >=60 mL/min/1. 73m2 LAB CHEMISTRY METHOD 09/07/2024 11:49 AM [facility] LAB Comment:Calculation based on the Chronic Kidney Disease Epidemiology Collaboration (CKD-EPI) equation refit without adjustment for race. BUN/Creatinine Ratio 30.3 LAB CHEMISTRY METHOD 09/07/2024 11:49 AM [facility] LAB Calcium 9.6 8.5 - 10.5 mg/dL LAB CHEMISTRY METHOD 09/07/2024 11:49 AM [facility] LAB AST (SGOT) 26 10 - 42 unit/L LAB CHEMISTRY METHOD 09/07/2024 11:49 AM [facility] ALT (SGPT) 26 10 - 60 unit/L LAB CHEMISTRY METHOD 09/07/2024 11:49 AM [facility] Alkaline Phosphatase 103 42 - 121 unit/L LAB CHEMISTRY METHOD 09/07/2024 11:49 AM [facility] Total Protein 7.3 6.0 - 8.0 g/dL LAB CHEMISTRY METHOD 09/07/2024 11:49 AM [facility] Albumin 3.5 3.2 - 5.0 g/dL LAB CHEMISTRY METHOD 09/07/2024 11:[address] [facility] Total Bilirubin 0.2 0.0 - 1.4 mg/dL LAB CHEMISTRY METHOD [facility]/07[facility]24 [facility] Blood Venous blood specimen / Unknown Venipuncture / Unknown 09/07/2024 6:40 AM EDT 09/07/2024 10:56 AM EDT us Kenny Malave MD LAB BLOOD ORDERABLES Final Resul t [facility] [address] [place] [address], [place] [phone] * (ABNORMAL) Complete blood count (09/07/2024 6:40 AM EDT) WBC 4.1(L) 4.8 - 10.8 K/mcL LAB HEMETOLOGY METHOD 09/07/2024 11:08 AM [facility] RBC 3.70(L) 3.80 - 4.80 M/mcL LAB HEMETOLOGY METHOD 09/07/2024 11:08 AM [facility] Hemoglobin 10.2(L) 11.5 - 16.0 g/dL LAB HEMETOLOGY METHOD 09/07/2024 11:08 AM [facility] Hematocrit 31.4(L) 35.0 - 47.0 % LAB HEMETOLOGY METHOD 09/07/2024 11:08 AM [facility] LAB MCV 85.3 79.0 - 98.0 FL LAB HEMETOLOGY METHOD 09/07/2024 11:08 AM [facility] LAB MCH 27.7 27.0 - 32.0 pcg LAB HEMETOLOGY METHOD 09/07/2024 11:08 AM [facility] LAB MCHC 32.5 32.0 - 37.0 g/dL LAB HEMETOLOGY METHOD 09/07/2024 11:[address] [facility] RDW 13.8 11.0 - 15.0 % LAB HEMETOLOGY METHOD 09/07/2024 11:[address] [facility] Platelets 484(H) 130 - 400 K/mcL LAB HEMETOLOGY METHOD 09/07/2024 11:[address] [facility] MPV 8.1 7.0 - 11.0 FL LAB HEMETOLOGY METHOD 09/07/2024 11:[address] [facility] NRBC 0.0 <1.0 % LAB HEMETOLOGY METHOD 09/07/2024 11:[address] [facility] NRBC Absolute 0.00 <0.10 K/mcL LAB HEMETOLOGY METHOD 09/07/2024 11:[address] [facility] Blood Venous blood specimen / Unknown Venipuncture / Unknown 09/07/2024 6:40 AM EDT 09/07/2024 10:56 AM EDT us Kenny Malave MD LAB BLOOD ORDERABLES Final Resul t [facility] [address] [place] [address], documented in this encounter Visit Diagnoses Diagnosis Essential (primary) hypertension Unspecified essential hypertension documented in this encounter Care Teams Mash Preparatory Operator Relationship Specialty Start Date End Date Alan Chanel MD [address] [place] [address] Dr [facility] MAGEN Kruger PCP - General Internal Medicine 03/12/24 documented as of this encounter
--- OUTSIDE RECORDS SUMMARY | 2025-01-06 17:40 | XMS_ITS | Encounter Summary ---
Author Organization [facility] Address [address] [place] [address] Care Team Providers Care Pillowcase Folder Name Role Phone Alan Chanel MD Primary Care Provider Encounter Details Date Type Department Care Team (Late st Contact Info) Description 04/15/2024 Lab Requisition [facility] Lab 299 [facility] [place] [address] Ever Reyna MD [address] [place] [phone] Encounter for other general examination Social History [...] LAB CHEMISTRY METHOD 04/15/2024 11:04 AM EST [facility] Potassium 4.4 3.5 - 5.5 mmol/L LAB CHEMISTRY METHOD 04/15/2024 11:04 AM EST [facility] Chloride 96 96 - 110 mmol/L LAB CHEMISTRY METHOD 04/15/2024 11:04 AM EST [facility] CO2 25 21 - 32 mmol/L LAB CHEMISTRY METHOD 04/15/2024 11:[address] [facility] Anion Gap 9 3 - 11 LAB CHEMISTRY METHOD 04/15/2024 11:[address] [facility] Glucose 78 70 - 100 mg/dL LAB CHEMISTRY METHOD 04/15/2024 11:[address] [facility] BUN 11 5 - 25 mg/dL LAB CHEMISTRY METHOD 04/15/2024 11:[address] [facility] Creatinine 0.84 0.70 - 1.30 mg/dL LAB CHEMISTRY METHOD 04/15/2024 11:[address] [facility] LAB eGFR 92 >=60 mL/min/1. 73m2 LAB CHEMISTRY METHOD 04/15/2024 11:[address] [facility] Comment:Calculation based on the Chronic Kidney Disease Epidemiology Collaboration (CKD-EPI) equation refit without adjustment for race. BUN/Creatinine Ratio 13.1 LAB CHEMISTRY METHOD 04/15/2024 11:[address] [facility] Calcium 9.3 8.5 - 10.5 mg/dL LAB CHEMISTRY METHOD 04/15/2024 11:[address] [facility] Blood Venous blood specimen / Unknown Venipuncture / Unknown 04/15/2024 6:06 AM EST 04/15/2024 9:57 AM EST us Ever Reyna MD LAB BLOOD ORDERABLES Final Res ult [facility] LAB [address] [place] [address], documented in this encounter Visit Diagnoses Diagnosis Encounter for other general examination documented in this encounter Care Teams Pillowcase Folder Relationship Specialty Start Date End Date Alan Chanel MD [address] [place] [address] [address] [place] PCP - General Internal Medicine 03/12/24 documented as of this encounter
--- OUTSIDE RECORDS SUMMARY | 2025-01-06 17:40 | XMS_ITS | Clinical Summary ---
Author Organization [facility] Address [address] [place] [address] Phone Care Team Providers Care Surgery Teacher Name Role Phone Alan Chanel MD Primary Care Provider [phone] Allergies No known active allergies Medications albuterol [...] 04/14/2024 COPD (chronic obstructive pu lmonary disease) ([facility] V24, [facility] V28) 04/14/2024 Benign essential hypertension 04/14/2024 Lumbar [...] mmol/L LAB CHEMISTRY METHOD 09/07/2024 11:49 AM [facility] Potassium 4.2 3.5 - 5.5 mmol/L LAB CHEMISTRY METHOD 09/07/2024 11:49 AM [facility] Chloride 93(L) 96 - 110 mmol/L LAB CHEMISTRY METHOD 09/07/2024 11:49 AM [facility] CO2 25 21 - 32 mmol/L LAB CHEMISTRY METHOD 09/07/2024 11:49 AM [facility] Anion Gap 10 3 - 11 LAB CHEMISTRY METHOD 09/07/2024 11:49 AM [facility] Glucose 87 70 - 100 mg/dL LAB CHEMISTRY METHOD 09/07/2024 11:49 AM [facility] BUN 20 5 - 25 mg/dL LAB CHEMISTRY METHOD 09/07/2024 11:49 AM [facility] Creatinine 0.66 0.50 - 1.10 mg/dL LAB CHEMISTRY METHOD 09/07/2024 11:49 AM [facility] LAB eGFR 92 >=60 mL/min/1. 73m2 LAB CHEMISTRY METHOD 09/07/2024 11:49 AM [facility] Comment:Calculation based on the Chronic Kidney Disease Epidemiology Collaboration (CKD-EPI) equation refit without adjustment for race. BUN/Creatinine Ratio 30.3 LAB CHEMISTRY METHOD 09/07/2024 11:49 AM [facility] Calcium 9.6 8.5 - 10.5 mg/dL LAB CHEMISTRY METHOD 09/07/2024 11:49 AM [facility] AST (SGOT) 26 10 - 42 unit/L LAB CHEMISTRY METHOD 09/07/2024 11:49 AM [facility] ALT (SGPT) 26 10 - 60 unit/L LAB CHEMISTRY METHOD 09/07/2024 11:49 AM [facility] Alkaline Phosphatase 103 42 - 121 unit/L LAB CHEMISTRY METHOD 09/07/2024 11:49 AM [facility] Total Protein 7.3 6.0 - 8.0 g/dL LAB CHEMISTRY METHOD 09/07/2024 11:49 AM [facility] Albumin 3.5 3.2 - 5.0 g/dL LAB CHEMISTRY METHOD 09/07/2024 11:49 AM [facility] Total Bilirubin 0.2 0.0 - 1.4 mg/dL LAB CHEMISTRY METHOD 09/07/2024 11:49 AM [facility] Blood Venous blood specimen / Unknown Venipuncture / Unknown 09/07/2024 6:40 AM EDT 09/07/2024 10:56 AM EDT us Kenny Malave MD LAB BLOOD ORDERABLES Final Resul t [facility] [address] [place] [address], [place] [phone] from Last 3 Months or Most Recently Relevant to Health Maintenance Insurance MEDICARE [place]ICAID - [place] Care Teams Surgery Teacher Relationship Specialty Start Date End Date Alan Chanel MD [address] [place] [address] PCP - General Internal Medicine 03/12/24
--- OUTSIDE RECORDS SUMMARY | 2025-01-06 17:40 | XMS_ITS | Encounter Summary ---
Author Organization [facility] Address [address] [place] [address] Care Team Providers Care Poultry Hatchery Supervisor Name Role Phone Alan Chanel MD Primary Care Provider Encounter Details Date Type Department Care Team (Late st Contact Info) Description 07/14/2024 Lab Requisition [facility] Lab [address] [place] [address] Kenny Malave MD 38 [facility] [address] [place], [address] Chronic kidney disease, unspecified Social History [...] mmol/L LAB CHEMISTRY METHOD 07/15/2024 10:42 AM [facility] CO2 24 21 - 32 mmol/L LAB CHEMISTRY METHOD 07/15/2024 10:42 AM [facility] LAB Anion Gap 11 3 - 11 LAB CHEMISTRY METHOD 07/15/2024 10:42 AM [facility] Glucose 76 70 - 100 mg/dL LAB CHEMISTRY METHOD 07/15/2024 10:42 AM [facility] BUN 20 5 - 25 mg/dL LAB CHEMISTRY METHOD 07/15/2024 10:42 AM [facility] Creatinine 0.71 0.50 - 1.10 mg/dL LAB CHEMISTRY METHOD 07/15/2024 10:42 AM [facility] LAB eGFR 89 >=60 mL/min/1. 73m2 LAB CHEMISTRY METHOD 07/15/2024 10:42 AM [facility] LAB Comment:Calculation based on the Chronic Kidney Disease Epidemiology Collaboration (CKD-EPI) equation refit without adjustment for race. BUN/Creatinine Ratio 28.2 LAB CHEMISTRY METHOD 07/15/2024 10:42 AM [facility] Calcium 9.5 8.5 - 10.5 mg/dL LAB CHEMISTRY METHOD 07/15/2024 10:42 AM [facility] AST (SGOT) 27 10 - 42 unit/L LAB CHEMISTRY METHOD 07/15/2024 10:42 AM [facility] ALT (SGPT) 22 10 - 60 unit/L LAB CHEMISTRY METHOD 07/15/2024 10:42 AM [facility] Alkaline Phosphatase 72 42 - 121 unit/L LAB CHEMISTRY METHOD 07/15/2024 10:42 AM [facility] Total Protein 7.4 6.0 - 8.0 g/dL LAB CHEMISTRY METHOD 07/15/2024 10:42 AM [facility] Albumin 3.7 3.2 - 5.0 g/dL LAB CHEMISTRY METHOD 07/15/2024 10:42 AM EDT [facility] Total Bilirubin 0.3 0.0 - 1.4 mg/dL LAB CHEMISTRY METHOD 07/15/2024 10:42 AM T [facility] Blood Venous blood specimen / Unknown Venipuncture / Unknown 07/15/2024 6:23 AM EDT 07/15/2024 9:55 AM EDT us Kenny Malave MD LAB BLOOD ORDERABLES Final Resul t [facility] [address] [place] [address], [place] [phone] * (ABNORMAL) Complete blood count (07/15/2024 6:23 AM EDT) WBC 4.5(L) 4.8 - 10.8 K/mcL LAB HEMETOLOGY METHOD 07/15/2024 10:17 AM [facility] RBC 3.80 3.80 - 4.80 M/mcL LAB HEMETOLOGY METHOD 07/15/2024 10:17 AM [facility] Hemoglobin 10.8(L) 11.5 - 16.0 g/dL LAB HEMETOLOGY METHOD 07/15/2024 10:17 AM [facility] Hematocrit 32.2(L) 35.0 - 47.0 % LAB HEMETOLOGY METHOD 07/15/2024 10:17 AM [facility] MCV 85.0 79.0 - 98.0 FL LAB HEMETOLOGY METHOD 07/15/2024 10:17 AM [facility] LAB MCH 28.5 27.0 - 32.0 pcg LAB HEMETOLOGY METHOD 07/15/2024 10:17 AM [facility] MCHC 33.5 32.0 - [...] Resul t [facility] [address] [place] [address], documented in this encounter Visit Diagnoses Diagnosis Chronic kidney disease, unspecified documented in this encounter Care Teams Poultry Hatchery Supervisor Relationship Specialty Start Date End Date Alan Chanel MD 2 [facility] [address] MAGEN Kruger PCP - General Internal Medicine 03/12/24 documented as of this encounter
--- OUTSIDE RECORDS SUMMARY | 2025-01-06 17:40 | XMS_ITS | Encounter Summary ---
Author Organization [facility] Address [address] [place] [address] Care Team Providers Care Fiberglass Quality Technician Name Role Phone Alan Chanel MD Primary Care Provider Encounter Details Date Type Department Care Team (Late st Contact Info) Description 04/17/2024 Lab Requisition [facility] Lab [address] [place] [address] Ever Reyna MD [address] [place] [address] Encounter for other general examination Social History [...] AM EST) WBC 4.4(L) 4.8 - 10.8 K/[facility] LAB HEMETOLOGY METHOD 04/17/2024 11:22 AM EST [facility] RBC 4.20(L) 4.50 - 5.50 M/[facility] LAB HEMETOLOGY METHOD 04/17/2024 11:22 AM EST [facility] Hemoglobin 11.8(L) 13.5 - 17.5 g/dL LAB HEMETOLOGY METHOD 04/17/2024 11:22 AM [facility] LAB Hematocrit 35.2(L) 42.0 - 54.0 % LAB HEMETOLOGY METHOD 04/17/2024 11:22 AM [facility] LAB MCV 84.2 79.0 - 98.0 FL LAB HEMETOLOGY METHOD 04/17/2024 11:22 AM [facility] LAB MCH 28.2 27.0 - 32.0 pcg LAB HEMETOLOGY METHOD 04/17/2024 11:22 AM [facility] LAB MCHC 33.5 32.0 - 37.0 g/dL LAB HEMETOLOGY METHOD 04/17/2024 11:22 AM [facility] LAB RDW 13.4 11.0 - 15.0 % LAB HEMETOLOGY METHOD 04/17/2024 11:22 AM [facility] LAB Platelets 467(H) 130 - 400 K/mcL LAB HEMETOLOGY METHOD 04/17/2024 11:22 AM [facility] LAB MPV 8.5 7.0 - 11.0 FL LAB HEMETOLOGY METHOD 04/17/2024 11:22 AM [facility] LAB NRBC 0.0 <1.0 % LAB HEMETOLOGY METHOD 04/17/2024 11:22 AM [facility] LAB NRBC Absolute 0.00 <0.10 K/mcL LAB HEMETOLOGY METHOD 04/17/2024 11:22 AM [facility] LAB Blood Venous blood specimen / Unknown Venipuncture / Unknown 04/17/2024 6:06 AM EST 04/17/2024 10:27 AM EST us Ever Reyna MD LAB BLOOD ORDERABLES Final Res ult [facility] [address] [place] [address], * (ABNORMAL) Comprehensive metabolic panel (04/17/2024 6:06 AM EST) Sodium 132(L) 133 - 145 mmol/L LAB CHEMISTRY METHOD 04/17/2024 12:19 PM [facility] Potassium 4.5 3.5 - 5.5 mmol/L LAB CHEMISTRY METHOD 04/17/2024 12:19 PM [facility] Chloride 96 96 - 110 mmol/L LAB CHEMISTRY METHOD 04/17/2024 12:19 PM [facility] CO2 27 21 - 32 mmol/L LAB CHEMISTRY METHOD 04/17/2024 12:19 PM [facility] Anion Gap 9 3 - 11 LAB CHEMISTRY METHOD 04/17/2024 12:19 PM [facility] Glucose 88 70 - 100 mg/dL LAB CHEMISTRY METHOD 04/17/2024 12:19 PM [facility] BUN 8 5 - 25 mg/dL LAB CHEMISTRY METHOD 04/17/2024 12:19 PM [facility] Creatinine 0.65(L) 0.70 - 1.30 mg/dL LAB CHEMISTRY METHOD 04/17/2024 12:19 PM [facility] LAB eGFR 99 >=60 mL/min/1. 73m2 LAB CHEMISTRY METHOD 04/17/2024 12:19 PM [facility] Comment:Calculation based on the Chronic Kidney Disease Epidemiology Collaboration (CKD-EPI) equation refit without adjustment for race. BUN/Creatinine Ratio 12.3 LAB CHEMISTRY METHOD 04/17/2024 12:19 PM [facility] Calcium 9.1 8.5 - 10.5 mg/dL LAB CHEMISTRY METHOD 04/17/2024 12:19 PM [facility] AST (SGOT) 107(H) 10 - 42 unit/L LAB CHEMISTRY METHOD 04/17/2024 12:19 PM [facility] ALT (SGPT) 71(H) 10 - 60 unit/L LAB CHEMISTRY METHOD 04/17/2024 12:19 PM [facility] Alkaline Phosphatase 175(H) 42 - 121 unit/L LAB CHEMISTRY METHOD 04/17/2024 12:19 PM [facility] Total Protein 6.6 6.0 - 8.0 g/dL LAB CHEMISTRY METHOD 04/17/2024 12:19 PM [facility] Albumin 3.2 3.2 - 5.0 g/dL LAB CHEMISTRY METHOD 04/17/2024 12:19 PM [facility] Total Bilirubin 0.3 0.0 - 1.4 mg/dL LAB CHEMISTRY METHOD 04/17/2024 12:19 PM [facility] Blood Venous blood specimen / Unknown Venipuncture / Unknown 04/17/2024 6:06 AM EST 04/17/2024 10:27 AM EST us Ever Reyna MD LAB BLOOD ORDERABLES Final Res ult [facility] [address] [place] [address], documented in this encounter Visit Diagnoses Diagnosis Encounter for other general examination documented in this encounter Care Teams Fiberglass Quality Technician Relationship Specialty Start Date End Date Alan Chanel MD [address] [place] [address] Dr Reyna Kruger [place] PCP - General Internal Medicine 03/12/24 documented as of this encounter
--- OUTSIDE RECORDS SUMMARY | 2025-01-06 17:40 | XMS_ITS | Encounter Summary ---
Author Organization [facility] Address [address] [place] [address] Care Team Providers Care Deicer Kit Assembler Name Role Phone Alan Chanel MD Primary Care Provider Encounter Details Date Type Department Care Team (Late st Contact Info) Description 08/26/[address] [facility] - Main Lab [address] [place] [address] Kenny Malave MD 38 [facility] [address] [place], [address] Essential (primary) hypertension Social History Tobacco [...] LAB HEMETOLOGY METHOD 08/26/2024 11:58 AM EDT [facility] ([facility]) [facility] Blood Venous blood specimen / Unknown Venipuncture / Unknown 08/26/2024 6:44 AM EDT 08/26/2024 10:56 AM EDT us Kenny Malave MD LAB BLOOD ORDERABLES Final Resul t Performing Organization Address City/[facility]/ZIP Co de Phone Number [facility] [address] [place] [address], [place] [phone] * Uric acid (08/26/2024 6:44 AM EDT) Uric Acid 3.1 3.1 - 7.8 mg/dL LAB CHEMISTRY METHOD 08/26/2024 12:15 PM EDT [facility] LAB Blood Venous blood specimen / Unknown Venipuncture / Unknown 08/26/2024 6:44 AM EDT 08/26/2024 10:56 AM EDT Kenny Malave MD LAB BLOOD ORDERABLES Final Resul t Performing Organization Address City/[facility] Co de Phone Number [facility] [address] [place] [address], [place] [phone] documented in this encounter Visit Diagnoses Diagnosis Essential (primary) hypertension Unspecified essential hypertension documented in this encounter Care Teams Deicer Kit Assembler Relationship Specialty Start Date End Date Alan Chanel MD [address] [place] [address] [address] MAGEN Kruger PCP - General Internal Medicine 03/12/24 documented as of this encounter
--- OUTSIDE RECORDS SUMMARY | 2025-01-06 17:40 | XMS_ITS | Encounter Summary ---
Author Organization [facility] Address [address] [place] [address] Care Team Providers Care 21 Dealer Name Role Phone Alan Chanel MD Primary Care Provider Encounter Details Date Type Department Care Team (Late st Contact Info) Description 07/08/2024 Lab Requisition [facility] - Main Lab [address] [place] [address] Kenny Malave MD 38 [facility] [address] [place], [address] Anemia, unspecified; Chronic obstructive pulmonary disease, [...] Resul t [facility] [address] [place] [address], [place] [phone] * (ABNORMAL) Comprehensive metabolic panel (07/08/2024 6:23 AM EST) [facility] Sodium 132(L) 133 - 145 mmol/L [...] Resul t [facility] [address] [place] [address], * (ABNORMAL) Complete blood count (07/08/2024 6:23 [...] LAB BLOOD ORDERABLES Final Resul t [facility] ([facility]) [facility] [address] [place] [address], [place] [phone] documented in this encounter Visit Diagnoses Diagnosis Anemia, unspecified Chronic obstructive pulmonary disease, unspecified (CMS/HCC V24, CMS/HCC V28) documented in this encounter Care Teams 21 Dealer Relationship Specialty Start Date End Date Alan Chanel MD [address] [place] [address] Dr [address] [place], [place] PCP - General Internal Medicine 03/12/24 documented as of this encounter
--- OUTSIDE RECORDS SUMMARY | 2025-01-06 17:40 | XMS_ITS | Encounter Summary ---
Author Organization [facility] Address [address] [place] [address] Care Team Providers Care Wet Room Supervisor Name Role Phone Alan Chanel MD Primary Care Provider Encounter Details Date Type Department Care Team (Late st Contact Info) Description 04/28/[address] [facility] [address] [place] [address] Kenny Malave MD 38 [facility] [address] [place], [address] Essential (primary) hypertension Social History Tobacco [...] LAB CHEMISTRY METHOD 04/28/2024 12:11 PM EST [facility] Potassium 3.7 3.5 - 5.5 mmol/L LAB CHEMISTRY METHOD 04/28/2024 12:11 PM EST [facility] Chloride 91(L) 96 - 110 mmol/L LAB CHEMISTRY METHOD 04/28/2024 12:11 PM [facility] CO2 25 21 - 32 mmol/L LAB CHEMISTRY METHOD 04/28/2024 12:11 PM [facility] LAB Anion Gap 11 3 - 11 LAB CHEMISTRY METHOD 04/28/2024 12:11 PM [facility] Glucose 81 70 - 100 mg/dL LAB CHEMISTRY METHOD 04/28/2024 12:11 PM [facility] BUN 16 5 - 25 mg/dL LAB CHEMISTRY METHOD 04/28/2024 12:11 PM [facility] Creatinine 0.56(L) 0.70 - 1.30 mg/dL LAB CHEMISTRY METHOD 04/28/2024 12:11 PM [facility] LAB eGFR 103 >=60 mL/min/1. 73m2 LAB CHEMISTRY METHOD 04/28/2024 12:11 PM [facility] LAB Comment:Calculation based on the Chronic Kidney Disease Epidemiology Collaboration (CKD-EPI) equation refit without adjustment for race. BUN/Creatinine Ratio 28.6 LAB CHEMISTRY METHOD 04/28/2024 12:11 PM [facility] Calcium 9.0 8.5 - 10.5 mg/dL LAB CHEMISTRY METHOD 04/28/2024 12:11 PM [facility] AST (SGOT) 31 10 - 42 unit/L LAB CHEMISTRY METHOD 04/28/2024 12:11 PM [facility] ALT (SGPT) 48 10 - 60 unit/L LAB CHEMISTRY METHOD 04/28/2024 12:11 PM [facility] Alkaline Phosphatase 136(H) 42 - 121 unit/L LAB CHEMISTRY METHOD 04/28/2024 12:11 PM [facility] Total Protein 6.4 6.0 - 8.0 g/dL LAB CHEMISTRY METHOD 04/28/2024 12:11 PM [facility] Albumin 2.9(L) 3.2 - 5.0 g/dL LAB CHEMISTRY METHOD 04/28/2024 12:11 PM [facility] Total Bilirubin 0.5 0.0 - 1.4 mg/dL LAB CHEMISTRY METHOD 04/28/2024 12:11 PM [facility] Blood Venous blood specimen / Unknown Venipuncture / Unknown 04/28/2024 6:19 AM EST 04/28/2024 10:16 AM EST us Kenny Malave MD LAB BLOOD ORDERABLES Final Resul t [facility] [address] [place] [address], [place] [phone] * (ABNORMAL) Complete blood count (04/28/2024 6:19 AM EST) WBC 6.8 4.8 - 10.8 K/mcL LAB HEMETOLOGY METHOD 04/28/2024 11:29 AM [facility] RBC 4.10(L) 4.50 - 5.50 M/mcL LAB HEMETOLOGY METHOD 04/28/2024 11:29 AM [facility] Hemoglobin 11.4(L) 13.5 - 17.5 g/dL LAB HEMETOLOGY METHOD 04/28/2024 11:29 AM [facility] Hematocrit 33.6(L) 42.0 - 54.0 % LAB HEMETOLOGY METHOD 04/28/2024 11:29 AM [facility] MCV 81.8 79.0 - 98.0 FL LAB HEMETOLOGY METHOD 04/28/2024 11:29 AM [facility] MCH 27.7 27.0 - 32.0 pcg LAB HEMETOLOGY METHOD 04/28/2024 11:29 AM [facility] MCHC 33.9 32.0 - 37.0 g/dL LAB HEMETOLOGY METHOD 04/28/2024 11:29 AM EST [facility] RDW 13.2 11.0 - 15.0 % LAB HEMETOLOGY METHOD 04/28/2024 11:29 AM EST [facility] Platelets 491(H) 130 - 400 K/mcL LAB HEMETOLOGY METHOD 04/28/2024 11:29 AM [facility] MPV 8.2 7.0 - 11.0 FL LAB HEMETOLOGY METHOD 04/28/2024 11:29 AM EST [facility] NRBC 0.0 <1.0 % LAB HEMETOLOGY METHOD 04/28/2024 11:29 AM [facility] NRBC Absolute 0.00 <0.10 K/mcL LAB HEMETOLOGY METHOD 04/28/2024 11:29 AM [facility] Blood Venous blood specimen / Unknown Venipuncture / Unknown 04/28/2024 6:19 AM EST 04/28/2024 10:16 AM EST us Kenny Malave MD LAB BLOOD ORDERABLES Final Resul t [facility] [address] [place] [address], documented in this encounter Visit Diagnoses Diagnosis Essential (primary) hypertension Unspecified essential hypertension documented in this encounter Care Teams Wet Room Supervisor Relationship Specialty Start Date End Date Alan Chanel MD [address] [place] [address] Dr Reyna Kruger [place] PCP - General Internal Medicine 03/12/24 documented as of this encounter
--- OUTSIDE RECORDS SUMMARY | 2025-01-06 17:40 | XMS_ITS | Encounter Summary ---
Author Organization [facility] Address [address] [place] [address] Care Team Providers Care Quality Assurance Lab Technician Name Role Phone Alan Chanel MD Primary Care Provider Encounter Details Date Type Department Care Team (Late st Contact Info) Description 07/13/2024 Lab Requisition [facility] - Main Lab 299 [facility] [place] [address] Kenny Malave MD 38 [facility] [address] [place], [address] Anemia, unspecified; Chronic obstructive pulmonary disease, [...] mg/dL LAB CHEMISTRY METHOD 07/14/2024 9:15 AM [facility] LAB Blood Venous blood specimen / Unknown Venipuncture / Unknown 07/14/2024 5:07 AM EDT 07/14/2024 7:45 AM EDT us Kenny Malave MD LAB BLOOD ORDERABLES Final Resul t [facility] [address] [place] [address], [place] [phone] * (ABNORMAL) Comprehensive metabolic panel (07/14/2024 5:07 AM EDT) [facility] Sodium 130(L) 133 - 145 mmol/L LAB CHEMISTRY METHOD 07/14/2024 9:15 AM [facility] Potassium 4.6 3.5 - 5.5 mmol/L LAB CHEMISTRY METHOD 07/14/2024 9:15 AM [facility] Chloride 95(L) 96 - 110 mmol/L LAB CHEMISTRY METHOD 07/14/2024 9:15 AM [facility] CO2 27 21 - 32 mmol/L LAB CHEMISTRY METHOD 07/14/2024 9:15 AM [facility] LAB Anion Gap 8 3 - 11 LAB CHEMISTRY METHOD 07/14/2024 9:15 AM [facility] Glucose 79 70 - 100 mg/dL LAB CHEMISTRY METHOD 07/14/2024 9:15 AM [facility] BUN 20 5 - 25 mg/dL LAB CHEMISTRY METHOD 07/14/2024 9:15 AM [facility] Creatinine 0.63 0.50 - 1.10 mg/dL LAB CHEMISTRY METHOD 07/14/2024 9:15 AM [facility] LAB eGFR 93 >=60 mL/min/1. 73m2 LAB CHEMISTRY METHOD 07/14/2024 9:15 AM [facility] LAB Comment:Calculation based on the Chronic Kidney Disease Epidemiology Collaboration (CKD-EPI) equation refit without adjustment for race. BUN/Creatinine Ratio 31.7 LAB CHEMISTRY METHOD 07/14/2024 9:15 AM [facility] Calcium 9.8 8.5 - 10.5 mg/dL LAB CHEMISTRY METHOD 07/14/2024 9:15 AM [facility] AST (SGOT) 23 10 - 42 unit/L LAB CHEMISTRY METHOD 07/14/2024 9:15 AM [facility] ALT (SGPT) 22 10 - 60 unit/L LAB CHEMISTRY METHOD 07/14/2024 9:15 AM [facility] Alkaline Phosphatase 76 42 - 121 unit/L LAB CHEMISTRY METHOD 07/14/2024 9:15 AM [facility] Total Protein 7.3 6.0 - 8.0 g/dL LAB CHEMISTRY METHOD 07/14/2024 9:15 AM [facility] Albumin 3.7 3.2 - 5.0 g/dL LAB CHEMISTRY METHOD 07/14/2024 9:15 AM [facility] Total Bilirubin 0.3 0.0 - 1.4 mg/dL LAB CHEMISTRY METHOD 07/14/2024 9:15 AM [facility] Blood Venous blood specimen / Unknown Venipuncture / Unknown 07/14/2024 5:07 AM EDT 07/14/2024 7:45 AM EDT us Kenny Malave MD LAB BLOOD ORDERABLES Final Resul t [facility] [address] [place] [address], [place] [phone] * (ABNORMAL) Complete blood count (07/14/2024 5:07 AM EDT) WBC 3.9(L) 4.8 - 10.8 K/mcL LAB HEMETOLOGY METHOD 07/14/2024 8:49 AM [facility] RBC 3.90 3.80 - 4.80 M/mcL LAB HEMETOLOGY METHOD 07/14/2024 8:49 AM [facility] Hemoglobin 11.2(L) 11.5 - 16.0 g/dL LAB HEMETOLOGY METHOD 07/14/2024 8:49 AM [facility] Hematocrit 33.5(L) 35.0 - 47.0 % LAB HEMETOLOGY METHOD 07/14/2024 8:49 AM [facility] MCV 85.2 79.0 - 98.0 FL LAB HEMETOLOGY METHOD 07/14/2024 8:49 AM [facility] MCH 28.5 27.0 - 32.0 pcg LAB HEMETOLOGY METHOD 07/14/2024 8:49 AM [facility] MCHC 33.4 32.0 - 37.0 g/dL LAB HEMETOLOGY METHOD 07/14/2024 8:49 AM [facility] RDW 17.1(H) 11.0 - 15.0 % LAB HEMETOLOGY METHOD 07/14/2024 8:49 AM [facility] Platelets 539(H) 130 - 400 K/[facility] LAB HEMETOLOGY METHOD 07/14/2024 8:49 AM [facility] MPV 8.2 7.0 - 11.0 FL LAB HEMETOLOGY METHOD 07/14/2024 8:49 AM [facility] NRBC 0.0 <1.0 % LAB HEMETOLOGY METHOD 07/14/2024 8:49 AM [facility] LAB NRBC Absolute 0.00 <0.10 K/[facility] LAB HEMETOLOGY METHOD 07/14/2024 8:49 AM EDT [facility] LAB Blood Venous blood specimen / Unknown Venipuncture / Unknown 07/14/2024 5:07 AM EDT 07/14/2024 7:45 AM EDT us Kenny Malave MD LAB BLOOD ORDERABLES Final Resul t [facility] [address] [place] [address], documented in this encounter Visit Diagnoses Diagnosis Anemia, unspecified Chronic obstructive pulmonary disease, unspecified (CMS/HCC V24, CMS/HCC V28) documented in this encounter Care Teams Quality Assurance Lab Technician Relationship Specialty Start Date End Date Alan Chanel MD [address] [place] [address] Dr [address] [place], [place] PCP - General Internal Medicine 03/12/24 documented as of this encounter
--- OUTSIDE RECORDS SUMMARY | 2025-01-06 17:40 | XMS_ITS | Encounter Summary ---
Author Organization [facility] Address [address] [place] [address] Care Team Providers Care Produce Production Team Member Name Role Phone Alan Chanel MD Primary Care Provider Encounter Details Date Type Department Care Team (Late st Contact Info) Description 05/28/2024 Lab Requisition [facility] [address] [place] [address] Kenny Malave MD 38 [facility] [address] [place], [address] Polyneuropathy, unspecified; Unspecified protein-calorie malnutrition (CMS/HCC [...] LAB CHEMISTRY METHOD 05/28/2024 9:40 AM EST [facility] Potassium 3.3(L) 3.5 - 5.5 mmol/L LAB CHEMISTRY METHOD 05/28/2024 9:40 AM [facility] Chloride 103 96 - 110 mmol/L LAB CHEMISTRY METHOD 05/28/2024 9:40 AM [facility] CO2 27 21 - 32 mmol/L LAB CHEMISTRY METHOD 05/28/2024 9:40 AM [facility] Anion Gap 5 3 - 11 LAB CHEMISTRY METHOD 05/28/2024 9:40 AM [facility] Glucose 84 70 - 100 mg/dL LAB CHEMISTRY METHOD 05/28/2024 9:40 AM [facility] BUN 13 5 - 25 mg/dL LAB CHEMISTRY METHOD 05/28/2024 9:40 AM [facility] Creatinine 0.56 0.50 - 1.10 mg/dL LAB CHEMISTRY METHOD 05/28/2024 9:40 AM [facility] eGFR 96 >=60 mL/min/1. 73m2 LAB CHEMISTRY METHOD 05/28/2024 9:40 AM [facility] Comment:Calculation based on the Chronic Kidney Disease Epidemiology Collaboration (CKD-EPI) equation refit without adjustment for race. BUN/Creatinine Ratio 23.2 LAB CHEMISTRY METHOD 05/28/2024 9:40 AM [facility] Calcium 8.3(L) 8.5 - 10.5 mg/dL LAB CHEMISTRY METHOD 05/28/2024 9:40 AM [facility] Blood Venous blood specimen / Unknown Venipuncture / Unknown 05/28/2024 6:03 AM EST 05/28/2024 8:39 AM EST us Kenny Malave MD LAB BLOOD ORDERABLES Final Resul t [facility] [address] [place] [address], documented in this encounter Visit Diagnoses Diagnosis Polyneuropathy, unspecified Unspecified protein-calorie malnutrition (CMS/HCC V24) Unspecified protein-calorie malnutrition Chronic obstructive pulmonary disease, unspecified (CMS/[facility] V24, CMS/[facility] V28) documented in this encounter Care Teams Produce Production Team Member Relationship Specialty Start Date End Date Alan Chanel MD [address] [place] [address] Dr [address] MAGEN Kruger PCP - General Internal Medicine 03/12/24 documented as of this encounter
--- OUTSIDE RECORDS SUMMARY | 2025-01-06 17:40 | XMS_ITS | Encounter Summary ---
Author Organization [facility] Address [address] [place] [address] Care Team Providers Care Hoof Trimmer Name Role Phone Alan Chanel MD Primary Care Provider Encounter Details Date Type Department Care Team (Late st Contact Info) Description 05/18/2024 Lab Requisition [facility] - Main Lab [address] [place] [address] Kenny Malave MD 38 [facility] [address] [place], [address] Essential (primary) hypertension Social History Tobacco [...] LAB CHEMISTRY METHOD 05/19/2024 8:54 AM EST [facility] Potassium 3.4(L) 3.5 - 5.5 mmol/L LAB CHEMISTRY METHOD 05/19/2024 8:54 AM EST [facility] Chloride 101 96 - 110 mmol/L LAB CHEMISTRY METHOD 05/19/2024 8:54 AM [facility] CO2 29 21 - 32 mmol/L LAB CHEMISTRY METHOD 05/19/2024 8:54 AM [facility] Anion Gap 4 3 - 11 LAB CHEMISTRY METHOD 05/19/2024 8:54 AM [facility] Glucose 87 70 - 100 mg/dL LAB CHEMISTRY METHOD 05/19/2024 8:54 AM [facility] BUN 15 5 - 25 mg/dL LAB CHEMISTRY METHOD 05/19/2024 8:54 AM [facility] Creatinine 0.60 0.50 - 1.10 mg/dL LAB CHEMISTRY METHOD 05/19/2024 8:54 AM [facility] eGFR 94 >=60 mL/min/1. 73m2 LAB CHEMISTRY METHOD 05/19/2024 8:54 AM [facility] Comment:Calculation based on the Chronic Kidney Disease Epidemiology Collaboration (CKD-EPI) equation refit without adjustment for race. BUN/Creatinine Ratio 25.0 LAB CHEMISTRY METHOD 05/19/2024 8:54 AM [facility] Calcium 9.1 8.5 - 10.5 mg/dL LAB CHEMISTRY METHOD 05/19/2024 8:54 AM [facility] Blood Venous blood specimen / Unknown Venipuncture / Unknown 05/19/2024 6:53 AM EST 05/19/2024 7:53 AM EST us Kenny Malave MD LAB BLOOD ORDERABLES Final Resul t [facility] [address] [place] [address], * (ABNORMAL) Complete blood count (05/19/2024 6:53 AM EST) WBC 5.0 4.8 - 10.8 K/mcL LAB HEMETOLOGY METHOD 05/19/2024 8:33 AM [facility] RBC 4.00 3.80 - 4.80 M/mcL LAB HEMETOLOGY METHOD 05/19/2024 8:33 AM [facility] Hemoglobin 11.0(L) 11.5 - 16.0 g/dL LAB HEMETOLOGY METHOD 05/19/2024 8:33 AM [facility] Hematocrit 33.7(L) 35.0 - 47.0 % LAB HEMETOLOGY METHOD 05/19/2024 8:33 AM [facility] MCV 85.3 79.0 - 98.0 FL LAB HEMETOLOGY METHOD 05/19/2024 8:33 AM [facility] MCH 27.8 27.0 - 32.0 pcg LAB HEMETOLOGY METHOD 05/19/2024 8:33 AM [facility] MCHC 32.6 32.0 - 37.0 g/dL LAB HEMETOLOGY METHOD 05/19/2024 8:33 AM [facility] RDW 15.0 11.0 - 15.0 % LAB HEMETOLOGY METHOD 05/19/2024 8:33 AM [facility] Platelets 527(H) 130 - 400 K/mcL LAB HEMETOLOGY METHOD 05/19/2024 8:33 AM [facility] MPV 8.5 7.0 - 11.0 FL LAB HEMETOLOGY METHOD 05/19/2024 8:33 AM [facility] NRBC 0.0 <1.0 % LAB HEMETOLOGY METHOD 05/19/2024 8:33 AM [facility] NRBC Absolute 0.00 <0.10 K/mcL LAB HEMETOLOGY METHOD 05/19/2024 8:33 AM [facility] Blood Venous blood specimen / Unknown Venipuncture / Unknown 05/19/2024 6:53 AM EST 05/19/2024 7:53 AM EST us Kenny Malave MD LAB BLOOD ORDERABLES Final Resul t [facility] ([facility]) [facility] [address] [place] [address], [place] [phone] documented in this encounter Visit Diagnoses Diagnosis Essential (primary) hypertension Unspecified essential hypertension documented in this encounter Care Teams Hoof Trimmer Relationship Specialty Start Date End Date Alan Chanel MD [address] [place] [address] Dr [address] [place], [place] PCP - General Internal Medicine 03/12/24 documented as of this encounter
--- OUTSIDE RECORDS SUMMARY | 2025-01-06 17:40 | XMS_ITS | Encounter Summary ---
Author Organization [facility] Address [address] [place] [address] Care Team Providers Care Health Underwriter Name Role Phone Alan Chanel MD Primary Care Provider Encounter Details Date Type Department Care Team (Late st Contact Info) Description 08/21/2024 Lab Requisition [facility] Lab [address] [place] [address] Kenny Malave MD 38 [facility] [address] [place], [address] Essential (primary) hypertension Social History Tobacco [...] LAB CHEMISTRY METHOD 08/24/2024 12:37 PM EDT [facility] Potassium 4.5 3.5 - 5.5 mmol/L LAB CHEMISTRY METHOD 08/24/2024 12:37 PM EDT [facility] Chloride 97 96 - 110 mmol/L LAB CHEMISTRY METHOD 08/24/2024 12:37 PM [facility] CO2 26 21 - 32 mmol/L LAB CHEMISTRY METHOD 08/24/2024 12:37 PM [facility] Anion Gap 7 3 - 11 LAB CHEMISTRY METHOD 08/24/2024 12:37 PM [facility] Glucose 76 70 - 100 mg/dL LAB CHEMISTRY METHOD 08/24/2024 12:37 PM [facility] BUN 19 5 - 25 mg/dL LAB CHEMISTRY METHOD 08/24/2024 12:37 PM [facility] Creatinine 0.62 0.50 - 1.10 mg/dL LAB CHEMISTRY METHOD 08/24/2024 12:37 PM [facility] eGFR 93 >=60 mL/min/1. 73m2 LAB CHEMISTRY METHOD 08/24/2024 12:37 PM [facility] Comment:Calculation based on the Chronic Kidney Disease Epidemiology Collaboration (CKD-EPI) equation refit without adjustment for race. BUN/Creatinine Ratio 30.6 LAB CHEMISTRY METHOD 08/24/2024 12:37 PM [facility] Calcium 10.0 8.5 - 10.5 mg/dL LAB CHEMISTRY METHOD 08/24/2024 12:37 PM [facility] AST (SGOT) 24 10 - 42 unit/L LAB CHEMISTRY METHOD 08/24/2024 12:37 PM [facility] ALT (SGPT) 20 10 - 60 unit/L LAB CHEMISTRY METHOD 08/24/2024 12:37 PM [facility] Alkaline Phosphatase 86 42 - 121 unit/L LAB CHEMISTRY METHOD 08/24/2024 12:37 PM [facility] Total Protein 7.2 6.0 - 8.0 g/dL LAB CHEMISTRY METHOD 08/24/2024 12:37 PM [facility] Albumin 3.3 3.2 - 5.0 g/dL LAB CHEMISTRY METHOD 08/24/2024 12:37 PM EDT [facility] Total Bilirubin 0.2 0.0 - 1.4 mg/dL LAB CHEMISTRY METHOD 08/24/2024 12:37 PM [facility] Blood Venous blood specimen / Unknown Venipuncture / Unknown 08/24/2024 7:53 AM EDT 08/24/2024 10:00 AM EDT us Kenny Malave MD LAB BLOOD ORDERABLES Final Resul t [facility] [address] [place] [address], * (ABNORMAL) Complete blood count (08/24/2024 7:53 AM EDT) WBC 4.2(L) 4.8 - 10.8 K/mcL LAB HEMETOLOGY METHOD 08/24/2024 11:05 AM [facility] RBC 3.70(L) 3.80 - 4.80 M/mcL LAB HEMETOLOGY METHOD 08/24/2024 11:05 AM [facility] Hemoglobin 10.3(L) 11.5 - 16.0 g/dL LAB HEMETOLOGY METHOD 08/24/2024 11:05 AM [facility] Hematocrit 31.5(L) 35.0 - 47.0 % LAB HEMETOLOGY METHOD 08/24/2024 11:05 AM [facility] MCV 85.8 79.0 - 98.0 FL LAB HEMETOLOGY METHOD 08/24/2024 11:05 AM [facility] MCH 28.1 27.0 - 32.0 pcg LAB HEMETOLOGY METHOD 08/24/2024 11:05 AM [facility] MCHC 32.7 32.0 - 37.0 g/dL LAB HEMETOLOGY METHOD 08/24/2024 11:05 AM EDT [facility] RDW 13.7 11.0 - 15.0 % LAB HEMETOLOGY METHOD 08/24/2024 11:05 AM EDT [facility] Platelets 397 130 - 400 K/mcL LAB HEMETOLOGY METHOD 08/24/2024 11:05 AM EDT [facility] MPV 8.2 7.0 - 11.0 FL LAB HEMETOLOGY METHOD 08/24/2024 11:05 AM EDT [facility] NRBC 0.0 <1.0 % LAB HEMETOLOGY METHOD 08/24/2024 11:05 AM EDT [facility] NRBC Absolute 0.00 <0.10 K/mcL LAB HEMETOLOGY METHOD 08/24/2024 11:05 AM EDT [facility] Blood Venous blood specimen / Unknown Venipuncture / Unknown 08/24/2024 7:53 AM EDT 08/24/2024 10:00 AM EDT us Kenny Malave MD LAB BLOOD ORDERABLES Final Resul t [facility] [address] [place] [address], documented in this encounter Visit Diagnoses Diagnosis Essential (primary) hypertension Unspecified essential hypertension documented in this encounter Care Teams Health Underwriter Relationship Specialty Start Date End Date Alan Chanel MD [address] [place] [address] Dr Reyna Kruger [place] PCP - General Internal Medicine 03/12/24 documented as of this encounter
--- OUTSIDE RECORDS SUMMARY | 2025-01-06 17:40 | XMS_ITS | Encounter Summary ---
Author Organization [facility] Address [address] [place] [address] Care Team Providers Care Restaurant Hourly Manager Name Role Phone Alan Chanel MD Primary Care Provider [phone] Encounter Details Date Type Department Care Team (Late st Contact Info) Description 04/22/2024 Lab Requisition [facility] [address] [facility] [place] [address] Ever Reyna MD [address] [place] [id number] Encounter for other general examination Social History [...] LAB CHEMISTRY METHOD 04/22/2024 11:08 AM EST [facility] Potassium 3.6 3.5 - 5.5 mmol/L LAB CHEMISTRY METHOD 04/22/2024 11:08 AM EST [facility] Chloride 91(L) 96 - 110 mmol/L LAB CHEMISTRY METHOD 04/22/2024 11:08 AM EST [facility] CO2 26 21 - 32 mmol/L LAB CHEMISTRY METHOD 04/22/2024 11:08 AM [facility] Anion Gap 10 3 - 11 LAB CHEMISTRY METHOD 04/22/2024 11:08 AM [facility] Glucose 77 70 - 100 mg/dL LAB CHEMISTRY METHOD 04/22/2024 11:08 AM [facility] BUN 10 5 - 25 mg/dL LAB CHEMISTRY METHOD 04/22/2024 11:08 AM [facility] Creatinine 0.55(L) 0.70 - 1.30 mg/dL LAB CHEMISTRY METHOD 04/22/2024 11:08 AM [facility] eGFR 104 >=60 mL/min/1. 73m2 LAB CHEMISTRY METHOD 04/22/2024 11:08 AM [facility] Comment:Calculation based on the Chronic Kidney Disease Epidemiology Collaboration (CKD-EPI) equation refit without adjustment for race. BUN/Creatinine Ratio 18.2 LAB CHEMISTRY METHOD 04/22/2024 11:08 AM [facility] Calcium 8.8 8.5 - 10.5 mg/dL LAB CHEMISTRY METHOD 04/22/2024 11:08 AM [facility] Blood Venous blood specimen / Unknown Venipuncture / Unknown 04/22/2024 5:40 AM EST 04/22/2024 10:03 AM EST us Ever Reyna MD LAB BLOOD ORDERABLES Final Res ult [facility] [address] [place] [address], documented in this encounter Visit Diagnoses Diagnosis Encounter for other general examination documented in this encounter Care Teams Restaurant Hourly Manager Relationship Specialty Start Date End Date Alan Chanel MD [address] [place] [address] [address] [place], [place] PCP - General Internal Medicine 03/12/24 documented as of this encounter
--- OUTSIDE RECORDS SUMMARY | 2025-01-06 17:40 | XMS_ITS | Encounter Summary ---
Author Organization [facility] Address [address] [place] [address] Care Team Providers Care Development Eng Name Role Phone Alan Chanel MD Primary Care Provider Encounter Details Date Type Department Care Team (Late st Contact Info) Description 08/09/2024 Lab Requisition [facility] [address] [place] [address] Kenny Malave MD [address] [facility] [address] [place], [phone] Essential (primary) hypertension Social History Tobacco [...] LAB CHEMISTRY METHOD 08/10/2024 12:52 PM EDT [facility] Potassium 4.5 3.5 - 5.5 mmol/L LAB CHEMISTRY METHOD 08/10/2024 12:52 PM EDT [facility] Chloride 99 96 - 110 mmol/L LAB CHEMISTRY METHOD 08/10/2024 12:[address] [facility] CO2 27 21 - 32 mmol/L LAB CHEMISTRY METHOD 08/10/2024 12:[address] [facility] Anion Gap 5 3 - 11 LAB CHEMISTRY METHOD 08/10/2024 12:[address] [facility] Glucose 64(L) 70 - 100 mg/dL LAB CHEMISTRY METHOD 08/10/2024 12:[address] [facility] BUN 22 5 - 25 mg/dL LAB CHEMISTRY METHOD 08/10/2024 12:[address] [facility] Creatinine 0.62 0.50 - 1.10 mg/dL LAB CHEMISTRY METHOD 08/10/2024 12:[address] [facility] eGFR 94 >=60 mL/min/1. 73m2 LAB CHEMISTRY METHOD 08/10/2024 12:[address] [facility] Comment:Calculation based on the Chronic Kidney Disease Epidemiology Collaboration (CKD-EPI) equation refit without adjustment for race. BUN/Creatinine Ratio 35.5 LAB CHEMISTRY METHOD 08/10/2024 12:[address] [facility] Calcium 9.6 8.5 - 10.5 mg/dL LAB CHEMISTRY METHOD 08/10/2024 12:[address] [facility] AST (SGOT) 25 10 - 42 unit/L LAB CHEMISTRY METHOD 08/10/2024 12:[address] [facility] ALT (SGPT) 19 10 - 60 unit/L LAB CHEMISTRY METHOD 08/10/2024 12:[address] [facility] Alkaline Phosphatase 81 42 - 121 unit/L LAB CHEMISTRY METHOD 08/10/2024 12:[address] [facility] Total Protein 7.2 6.0 - 8.0 g/dL LAB CHEMISTRY METHOD 08/10/2024 12:[address] [facility] Albumin 3.6 3.2 - 5.0 g/dL LAB CHEMISTRY METHOD 08/10/2024 12:52 PM EDT [facility] Total Bilirubin 0.3 0.0 - 1.4 mg/dL LAB CHEMISTRY METHOD 08/10/2024 12:52 PM EDT [facility] Blood Venous blood specimen / Unknown Venipuncture / Unknown 08/10/2024 6:24 AM EDT 08/10/2024 11:12 AM EDT us Kenny Malave MD LAB BLOOD ORDERABLES Final Resul t [facility] [address] [place] [address], [place] [phone] * (ABNORMAL) Complete blood count (08/10/2024 6:24 AM EDT) WBC 3.9(L) 4.8 - 10.8 K/mcL LAB HEMETOLOGY METHOD 08/10/2024 12:[address] [facility] RBC 3.80 3.80 - 4.80 M/mcL LAB HEMETOLOGY METHOD 08/10/2024 12:[address] [facility] Hemoglobin 11.0(L) 11.5 - 16.0 g/dL LAB HEMETOLOGY METHOD 08/10/2024 12:[address] [facility] Hematocrit 32.7(L) 35.0 - 47.0 % LAB HEMETOLOGY METHOD 08/10/2024 12:28 PM EDT [facility] MCV 85.2 79.0 - 98.0 FL LAB HEMETOLOGY METHOD 08/10/2024 12:[address] [facility] MCH 28.6 27.0 - 32.0 pcg LAB HEMETOLOGY METHOD 08/10/2024 12:[address] [facility] MCHC 33.6 32.0 - 37.0 g/dL LAB HEMETOLOGY METHOD 08/10/2024 12:28 PM EDT [facility] RDW 14.6 11.0 - 15.0 % LAB HEMETOLOGY METHOD 08/10/2024 12:28 PM EDT [facility] Platelets 434(H) 130 - 400 K/mcL LAB HEMETOLOGY METHOD 08/10/2024 12:28 PM EDT [facility] MPV 8.2 7.0 - 11.0 FL LAB HEMETOLOGY METHOD 08/10/2024 12:28 PM EDT [facility] NRBC 0.0 <1.0 % LAB HEMETOLOGY METHOD 08/10/2024 12:28 PM EDT [facility] NRBC Absolute 0.00 <0.10 K/mcL LAB HEMETOLOGY METHOD 08/10/2024 12:28 PM EDT [facility] Blood Venous blood specimen / Unknown Venipuncture / Unknown 08/10/2024 6:24 AM EDT 08/10/2024 11:12 AM EDT us Kenny Malave MD LAB BLOOD ORDERABLES Final Resul t [facility] [address] [place] [address], documented in this encounter Visit Diagnoses Diagnosis Essential (primary) hypertension Unspecified essential hypertension documented in this encounter Care Teams Development Eng Relationship Specialty Start Date End Date Alan Chanel MD [address] [facility] [address] Reyna Kruger [place] PCP - General Internal Medicine 03/12/24 documented as of this encounter
[2025-01-06] MEDS: iohexoL 350 MG/ML 100 ML INFUS..BTL IV (18:05)
--- NOTE | 2025-01-06 19:28 | PC.NURSE ---
Medicated patient based on JUL. Patient scans came back and due to transfer to [facility]. Patient is resting comfortably in bed. Alert and oriented to where she is located, responding to questions appropriately. Stating her pain level increases with movement, but is a 7/10 at rest. Patient is on 3 liters of oxygen NC, and vital signs remain stable. Patient is in a 30 degree angle for stretcher position to help with oxygenation. Patients call melgoza is by her side, along with side rails up to prevent falls. Patient educated to call if anything is required. Purewick is in place and draining well. 2 IVs found on patient, 20 in L forearm and in a 20g in RAC. Patient is tachycardic which seems to be baseline while she has been at facility. Plan of care ongoing
--- NOTE | 2025-01-06 20:11 | PC.NURSE ---
Report given to [facility] Charge Nurse Flakito. Patient accepted into the ED for a trauma consult. VS remain stable.
--- NOTE | 2025-01-06 20:30 | PC.NURSE ---
patient sister Melyssa called and notified patient is being picked up by ems at this time and transferring to [facility].
== END 2025-01-06 20:50 | disposition short-term general hospital (02) ==
PROVIDERS: Physician Assistant Medical; Emergency Provider Emergency Medicine Emergency Medical Services
DX: S22.32XA Fracture of one rib, left side, initial encounter for closed fracture (principal); S72.112A Displaced fracture of greater trochanter of left femur, initial encounter for closed fracture; S32.019A Unspecified fracture of first lumbar vertebra, initial encounter for closed fracture; R06.02 Shortness of breath; M54.50 Low back pain, unspecified; M54.2 Cervicalgia; R07.89 Other chest pain; R10.2 Pelvic and perineal pain; M25.561 Pain in right knee; R00.0 Tachycardia, unspecified; W19.XXXA Unspecified fall, initial encounter; Y93.9 Activity, unspecified; Y92.9 Unspecified place or not applicable; Y99.8 Other external cause status; F17.210 Nicotine dependence, cigarettes, uncomplicated; Z79.899 Other long term (current) drug therapy
CPT/HCPCS: 36415; 70450; 71045; 71275; 73560; 74174; 80048; 83880; 84484; 85025; 85610; 93005; 96374; 96376; 99285; 99291; 99292; J2270; Q9967

== ENCOUNTER → 2025-01-06 15:53 | Outpatient (BNV) | payer MEDICARE, MEDICAID, SELFPAY | PROVIDERS: Emergency Provider Emergency Medicine Emergency Medical Services; Visit Provider Internal Medicine Cardiovascular Disease | DX: R00.0 Tachycardia, unspecified (principal) | CPT/HCPCS: 93010 ==

== ENCOUNTER → 2025-01-06 15:53 | Outpatient (BNV) | payer MEDICARE, MEDICAID, SELFPAY | PROVIDERS: Emergency Provider Emergency Medicine; Visit Provider Radiology Diagnostic Radiology | DX: R06.02 Shortness of breath (principal); R90.82 White matter disease, unspecified | CPT/HCPCS: 70450; 71275; 74174 ==